=== PATIENT | female | born 1950 | race Caucasian/White ===

== ENCOUNTER → 2016-08-19 | Outpatient (CLI) | payer MEDICARE, MEDICAID ==
[~2016-08-19] MED LIST: ALBU8.5H4 IH; AMIT100T2 PO; AMIT25TA9 PO; AMLO5TAB2 PO; ARIP15TA PO; ARIP5TAB13 PO; AXERT PO; BUDE6HFA IH; CLON0.5T PO; DULO20CA PO; DULO60CA58 PO; EST30C PV; GABA-486 PO; HYDR-3454 PO; HYDR-3729 PO; HYDR115S2 PO; LANS30CA PO; LISI10TA PO; LORA10TA44 PO; LORA10TA7 PO; MELO-195 PO; MELO7.5T PO; MTF500T PO; NITR-65 PO; PHEN200T27 PO; PNT40TEC PO; PREG50C PO; RT-ALBUINH IH; TRAM50TA2 PO; TRM50T PO
--- NOTE | 2016-08-19 15:46 | Diagnostic Imaging Report ---
PROCEDURE: Lung cancer screening CT chest without contrast. TECHNIQUE: Multiple contiguous axial images were obtained through the chest without the use of intravenous contrast. This is performed with a low-dose protocol. INDICATION: Currently asymptomatic patient smoking one pack per day for 30 years, for a total of a 30 year history of smoking COMPARISON: No prior similar studies are available for comparison. FINDINGS: There is no significant consolidation, mass, or suspicious nodule seen. There is a tiny calcified granuloma in the right middle lobe and one in the right lower lobe. There is minimal atelectasis in the lung bases. There is no pleural or pericardial effusion. The heart size is normal. No mediastinal mass or significantly enlarged lymph node is seen. The hilar vessels are not opacified with no adjacent definite mass identified. The osseous structures appear grossly unremarkable. IMPRESSION: No lung mass or suspicious nodule is seen. Lung Rads Category 2. Benign findings. Recommendations: Annual screening low-dose CT scan. Dictated by: Dictated on workstation # [id number]
== END ==
LOC: RAD 12:14
PROVIDERS: ATTEND Nurse Practitioner Community Health
DX: Z12.2 Encounter for screening for malignant neoplasm of respiratory organs (principal); Z87.891 Personal history of nicotine dependence

== ENCOUNTER → 2017-09-11 | Outpatient (CLI) | payer MEDICARE, MEDICAID ==
--- NOTE | 2017-09-11 11:52 | Diagnostic Imaging Report ---
INDICATION: Right upper quadrant abdominal pain. Gallbladder sonography is performed in the routine fashion. The liver shows increased echogenicity compatible with fatty infiltration. There is no focal liver lesion. Gallbladder has been removed. Common duct measures 5 mm. Pancreas is partially obscured due to overlying gas. The right kidney is normal measuring 11.2 cm in length. There is no ascites. IMPRESSION: Fatty infiltration of the liver. Status post cholecystectomy. Otherwise unremarkable study. Dictated by: Dictated on workstation # [id number]
== END ==
LOC: RAD 06:57
PROVIDERS: ATTEND Nurse Practitioner Community Health
DX: K76.0 Fatty (change of) liver, not elsewhere classified (principal); Z90.49 Acquired absence of other specified parts of digestive tract
CPT/HCPCS: 76705

== ENCOUNTER → 2019-07-04 | Outpatient (CLI) | payer MEDICARE, MEDICAID ==
[~2019-07-04] MED LIST changes: -HYDR-3454 PO; +HYDR-3455 PO
--- NOTE | 2019-07-04 15:08 | Diagnostic Imaging Report ---
EXAMINATION: CT Chest without contrast (lung screening). TECHNIQUE: Multiple contiguous axial images were obtained through the chest without the use of intravenous contrast according to lung cancer screening protocol. All CT scans use one or more of the following dose optimizing techniques: automated exposure control, MA and/or KvP adjustment based on a patient size and exam type, or iterative reconstruction. HISTORY: 56 pack year history of smoking. COMPARISON: 08/19/2016 FINDINGS: The lungs are clear without edema or pneumonia. No pleural effusion or pneumothorax. No suspicious nodules. Heart size is normal. No pericardial effusion. Aorta is normal in caliber. There is no axillary or supraclavicular lymphadenopathy. There is no mediastinal lymphadenopathy. Limited views of the upper abdomen are normal. There are no suspicious osseus lesions. IMPRESSION: 1. No suspicious pulmonary nodules. LUNG-RADS CATEGORY: 1 MODIFIER: None. OTHER SIGNIFICANT FINDINGS: None. Dictated by: Dictated on workstation # [id number]
--- NOTE | 2019-07-05 11:14 | Diagnostic Imaging Report ---
INDICATION: Routine screening. Comparison is made with prior mammogram from 06/12/2016 and 07/22/2013. 2-D and 3-D bilateral screening mammography was performed with CAD. Scattered fibroglandular densities are identified bilaterally. There are benign calcifications bilaterally. The overall parenchymal pattern appears stable. No mass or malignant appearing microcalcifications are seen. Axillae are unremarkable. IMPRESSION: BI-RADS Category 2 No mammographic features suspicious for malignancy are identified. ACR BI-RADS Category 2: Benign findings. Result letter will be mailed to the patient. Note: At least 10% of breast cancer is not imaged by mammography. Dictated by: Dictated on workstation # [id number]
== END ==
LOC: RAD 14:06
PROVIDERS: ATTEND Nurse Practitioner Community Health
DX: Z12.2 Encounter for screening for malignant neoplasm of respiratory organs (principal); Z12.31 Encounter for screening mammogram for malignant neoplasm of breast; F17.210 Nicotine dependence, cigarettes, uncomplicated
CPT/HCPCS: 77067

== ENCOUNTER → 2019-07-26 | Outpatient (CLI) | payer MEDICARE, MEDICAID ==
[~2019-07-26] MED LIST changes: -TRAM50TA2 PO
--- NOTE | 2019-07-26 16:21 | Diagnostic Imaging Report ---
INDICATION: Postmenopausal female. History of right hip replacement. COMPARISON: None. FINDINGS: AP Spine L1-L4: [BMD (g/cm2): 1.107] [T-Score: -0.8] [Z-Score: 0.0] [BMD Previous: NA] [BMD % Change: NA] LT Hip Neck: [BMD (g/cm2): 0.936] [T-Score: -0.7] [Z-Score: 0.3] LT Hip Total: [BMD (g/cm2):0.996] [T-Score:-0.1] [Z-Score: 0.6] [BMD Previous: NA] [BMD % Change: NA] RT Hip Neck: [BMD (g/cm2):NA] [T-Score:NA] [Z-Score:NA] RT Hip Total: [BMD (g/cm2):NA] [T-score:NA] [Z-Score:NA] [BMD Previous:NA] [BMD % Change:NA] *Indicates significant change from prior examination based on 95% confidence level. World Health Organization criteria for BMD interpretation classify patients as Normal (T-score at or above -1.0), Osteopenic (T-score between -1.0 and -2.5) or Osteoporotic (T-score at or below -2.5). LIMITATIONS AND MODIFICATION: Degenerative changes in the lumbar spine may falsely elevate bone density. The right hip was not evaluated due to prosthesis. FRACTURE RISK (FRAX SCORE): Not applicable. IMPRESSION: 1. Normal bone mineral density. 2. Baseline examination. 3. See below National Osteoporosis Foundation guidelines on when to potentially initiate pharmacologic therapy. Based on the National Osteoporosis Foundation Guidelines, pharmacologic treatment should be initiated in any of the following, unless clinical conditions suggest otherwise: * Any patient with prior fragility fracture of the hip or vertebrae. A spine fracture indicates 5X risk for subsequent spine fracture and 2X risk for subsequent hip fracture. * Osteoporosis (T-score <-2.5). * Postmenopausal women and men age 50 and older with low bone mass/osteopenia (T-score between -1.0 and -2.5) by DXA and 10-year major osteoporotic fracture greater than 20% or a 10-year probability of hip fracture greater than 3%. These fracture risks are supplied above in the FRAX score, if applicable. * Clinician judgment and/or patient preferences may indicate treatment for people with 10-year fracture probabilities above or below these levels. Dictated by: Dictated on workstation # [id number]
== END ==
LOC: RAD 08:45
PROVIDERS: ATTEND Nurse Practitioner Community Health
DX: N95.1 Menopausal and female climacteric states (principal); Z96.641 Presence of right artificial hip joint
CPT/HCPCS: 77080

== ENCOUNTER 2019-08-16 05:40 | Outpatient (CLI) | payer MEDICARE, MEDICAID ==
[~2019-08-16] VITALS: Ht 170 cm; Wt 94.5 kg
[2019-08-16] MEDS ORDERED: MV-M1TAB2 PO (12:17)
[2019-08-16] MEDS ORDERED: PANT40TA3 PO (12:17)
[2019-08-16] MEDS ORDERED: DULO60CA59 PO (12:17)
[2019-08-16] MEDS ORDERED: MONT10TA24 PO (12:17)
[2019-08-16] MEDS ORDERED: RIZA10TA23 PO (12:17)
[2019-08-16] MEDS ORDERED: BUDE10.2 IH (12:17)
[2019-08-16] MEDS ORDERED: METO-333 PO (12:17)
[2019-08-16] MEDS ORDERED: SIMV10TA26 PO (12:17)
[2019-08-16] MEDS ORDERED: METF-397 PO (12:17)
[2019-08-16] MEDS ORDERED: CALC-696 PO (12:17)
== END 2019-08-16 12:21 | disposition home or self-care (01) ==
LOC: PREOP 05:40
PROVIDERS: ATTEND Surgery
DX: Z01.818 Encounter for other preprocedural examination (principal)

== ENCOUNTER 2019-08-23 07:05 | Day surgery (SDC) | payer MEDICARE, MEDICAID ==
[~2019-08-23] VITALS: Ht 170 cm; Wt 94.5 kg
[~2019-08-23 07:05] MED LIST changes: +BUDE10.2 IH; +CALC-696 PO; +DULO60CA59 PO; +METF-397 PO; +METO-333 PO; +MONT10TA24 PO; +MV-M1TAB2 PO; +PANT40TA3 PO; +RIZA10TA23 PO; +SIMV10TA26 PO
[2019-08-23] MEDS ORDERED: LACTATED RINGERS 1,000 ML IV ONE (07:09)
[2019-08-23] MEDS ORDERED: LACTATED RINGERS 1,000 ML IV STA (07:14)
[2019-08-23] MEDS ORDERED: ceFAZolin 2 GM/50 ML NS 50 ML ONE (07:14)
[2019-08-23] MEDS ORDERED: HURRICAINE EXT TUBE (BENZOCAINE) XX PRN (07:15)
[2019-08-23 07:27] VITALS: BP 143/77
[2019-08-23] MEDS ORDERED: PROPOFOL INJECTION 50 ML IV ONE (07:30)
[2019-08-23] MEDS ORDERED: HURRICAINE EXT TUBE (BENZOCAINE) ONE (07:43)
--- NOTE | 2019-08-23 07:48 | Progress Note-Pre Operative ---
Pre-Operative Progress Note H&P Reviewed The H&P was reviewed, patient examined and no changes noted. Date Seen by Provider: Aug 23, 2019 Time Seen by Provider: 07:48 Date H&P Reviewed: Aug 23, 2019 Time H&P Reviewed: 07:48 Pre-Operative Diagnosis: gerd, epigastric abd pain, +JACEY Roque DO Aug 23, 2019 07:48
[2019-08-23] MEDS ORDERED: proPOfol 200 MG/20 ML (DIPRIVAN) VIAL IV ONE (08:56)
[2019-08-23 09:15] VITALS: BP 109/55
--- NOTE | 2019-08-23 09:17 | Progress Note-Post Operative ---
Post-Operative Progess Note Surgeon (s)/Roofing Applicator (s) Surgeon JACEY SOLARES DO Roofing Applicator: na Pre-Operative Diagnosis gerd, epigastric abd pain, +cologuard Post-Operative Diagnosis gastritis, hiatal hernia, diverticulosis, colon polyps Procedure & Operative Findings Date of Procedure 08/23/19 Procedure Performed/Findings egd c biopsies, colonoscopy c hot bx polypectomy x 7 Anesthesia Type per box finisher Estimated Blood Loss Estimated blood loss (mL): none Specimens/Packing Specimens Removed antrum, body, ge, colon polyps JACEY SOLARES DO Aug 23, 2019 09:16
--- NOTE | 2019-08-23 09:18 | Discharge Inst-Simple/Standard ---
Discharge Inst-Standard Patient Instructions/Follow Up Plan of Care/Instructions/FU: 2 weeks ely Activity as Tolerated: Yes Discharge Diet: Regular Diet JACEY SOLARES DO Aug 23, 2019 09:18
[2019-08-23 09:20] VITALS: BP_SYST 144; BP_SYST 99; BP_DIAS 65; BP_DIAS 72
[2019-08-23 09:50] VITALS: BP 147/65
[2019-08-23 10:00] VITALS: BP 147/65
--- NOTE | 2019-08-23 13:28 | OPERATIVE REPORT ---
DATE OF SERVICE: 08/23/2019 PREOPERATIVE DIAGNOSES: Gastroesophageal reflux disease, epigastric abdominal pain, positive Cologuard test. POSTOPERATIVE DIAGNOSES: Gastritis, hiatal hernia, diverticulosis, colon polyps. PROCEDURE: EGD with biopsies, colonoscopy with hot biopsy polypectomy x7. SURGEON: Jacey Granados DO ANESTHESIA: Per GANG SAWYER. ESTIMATED BLOOD LOSS: None. COMPLICATIONS: None. INDICATIONS: The patient is a 69-year-old female in need of EGD and colonoscopy. She understands risks and benefits of procedure and wished to proceed with procedure. Consent was signed in the chart. DESCRIPTION OF PROCEDURE: The patient was taken to the endoscopy suite, placed in left lateral recumbent position. Timeout was performed. Scope was inserted in mouth, down the esophagus, stomach and into the duodenum without difficulty. There were no polyps, masses or ulcerations within the duodenum. Scope was slowly retracted back into the stomach where further insufflated. The appearance of gastritis present. No polyps, masses or ulcerations. Biopsy of the antrum was obtained. Scope was retroflexed noting hiatal hernia, no other pathology. Scope was returned to its normal position, slowly withdrawn to the distal esophagus. A biopsy of the body was obtained. Scope was then slowly retracted back into the distal esophagus, biopsy of the GE junction was obtained. No polyps, masses or ulcerations. Scope was slowly retracted back until completely removed. Digital rectal exam was performed. There were no palpable polyps, masses or ulcerations. Scope was inserted in the rectum and advanced all the way to cecum with minimal difficulty. Prep was adequate. Scope was then slowly retracted back. There was a small polyp at the ileocecal valve, which hot biopsy polypectomy was performed. Scope was then continuously retracted back. At the hepatic flexure, there is 2 polyps, which hot biopsy polypectomy was performed. Scope was then continuously retracted back. There were no polyps, masses or ulcerations within the transverse colon. In the descending colon, two small polyps were present, which hot biopsy polypectomy was performed. Scope was then continuously retracted back into the sigmoid colon where two more polyps were present, which hot biopsy polypectomy was performed. Moderate amount of diverticulosis throughout the sigmoid and descending colon. Scope was then continuously retracted back in the rectum, where it was also retroflexed noting no other pathology. Scope was returned to its normal position, slowly withdrawn until completely removed. The patient tolerated procedure well without any complications. She was taken to recovery room in stable condition. RECOMMENDATIONS: The patient will need repeat colonoscopy in 3 years for reevaluation. We will await biopsies of the stomach. The patient to continue on her Protonix. The patient will follow up in 2 weeks. Any issues before that be seen at that time. Job ID: [id number] DocumentID: [id number] Dictated Date: 08/23/2019 09:21:51 Digital Production Manager Date: 08/23/2019 13:28:01 Dictated By: JACEY GRANADOS DO
--- NOTE | 2019-08-23 14:00 | Anesthesia-General Post-Op ---
MAC Patient Condition Mental Status/LOC: Same as Preop Cardiovascular: Satisfactory Nausea/Vomiting: Absent Respiratory: Satisfactory Pain: Controlled Complications: Absent Post Op Complications Complications None Follow Up Care/Instructions Patient Instructions None needed. Anesthesiology Discharge Order Discharge Order Patient was seen this morning after the procedure and she was doing well, no complaints, stable vital signs, no apparent adverse anesthesia problems. MARTHA RAY DO Aug 23, 2019 14:00
--- OUTSIDE RECORDS SUMMARY | 2019-09-01 04:53 | XMS REPORT ---
Author Author Olivia Mejía [facility] Address [address] [place], [place] [id number] Care Team Providers Care Doctor Of Medicine Name Role Phone Jean-Pierre Mejía PCP Jean-Pierre Mejía PreferredProvider Allergies and Adverse Reactions Name Reaction Notes No known drug allergy Plan of Treatment Not available. Medications Active Name Start Date Estimated Completion Date SIG Co mments Cymbalta 60 mg oral capsule,delayed release(DR/EC) take 2 capsules (120 mg) by oral route once daily Ventolin HFA 90 mcg/actuation inhalation HFA aerosol inhaler inhale 2 puffs (180 mcg) by inhalation route every 6 hours as needed clonazepam 0.5 mg oral tablet ta ke 1 to 2 tablets by oral route up to twice daily as needed for anxiety Relpax 40 mg oral tablet 10/27/2017 take 1 tablet (40 mg) by oral route ; may repeat after 2 hours, do not exceed 80 mg/24 hr Toviaz 4 mg oral tablet extended release 24 hr 05/03/2018 take 1 tablet (4 mg) by oral route once daily x 7 days then 8 mg daily Bleph-10 10 % ophthalmic (eye) drops 05/25/2018 instill 2 drops into both eyes by ophthalmic route 4 times a day metoprolol tartrate 25 mg oral tablet 07/22/2018 TAKE 1 TABLET BY MOUTH TWICE DAILY dicyclomine 20 mg oral tablet 07/22/2018 TA KE 1 TABLET BY MOUTH THREE TIMES DAILY loratadine 10 mg oral tablet 07/22/2018 [place]NA E 1 TABLET (10 MG) BY MOUTH ONCE DAILY Symbicort 160-4.5 mcg/actuation inhalation HFA aerosol inhaler INHALE 2 PUFFS BY MOUTH TWICE DAILY metformin 500 mg oral tablet 07/22/2018 georgiana e 1 tablet (500 mg) by oral route 2 times per day with morning and evening meals for 90 days simvastatin 10 mg oral tablet 07/22/2018 ta ke 1 tablet (10 mg) by oral route once daily in the evening for 90 days sucralfate 1 gram oral tablet 07/22/2018 TA KE 1 TABLET BY MOUTH TWICE DAILY ON AN EMPTY STOMACH montelukast 10 mg oral tablet 07/22/2018 TA KE 1 TABLET BY MOUTH DAILY IN THE EVENING Protonix 40 mg oral tablet,delayed release (DR/EC) 07/22/2018 take 1 tablet (40 mg) by oral route once daily for 90 days rizatriptan 10 mg oral tablet,disintegrating 07/22/2018 DISSOLVE 1 TABLET UNDER TONGUE AT ONSET OF HEADACHE *MAY REPEAT IN 2 HOUR INTERVALS Discontinued Name Start Date Discontinued Date SIG Comments Dulcolax Stool Softener (dss) 100 mg oral capsule 10/16/2017 take 1 capsule (100 mg) by oral route 2 times per day omeprazole 20 mg oral capsule,delayed release(DR/EC) 10/07/2017 take 1 capsule (20 mg) by oral route 2 times per day Migraine headaches tramadol 50 mg oral tablet 12/30/2017 take 1 tablet (50 mg) by oral route TID PRN Klonopin 0.5 mg oral tablet 10/16/2017 take 1 tablet (0.5 mg) by oral route daily as needed dose updated to what label says risperidone 0.5 mg oral tablet 10/16/2017 t ellie 1 tablet by oral route once daily "I don't take this" Imitrex 100 mg oral tablet 10/16/2017 10/27/2017 take 1 tablet (100 mg) by oral route once with fluids as early as possible after the onset of a migraine attack;may repeat after 2 hours if headache returns, not to exceed 200mg in 24hrs caused burning in stomach lisinopril-hydrochlorothiazide 10-12.5 mg oral tablet 10/16/2017 12/30/2017 take 1 tablet by oral route once daily for 90 days Cough gabapentin 100 mg oral capsule 10/16/2017 10/27/2017 t ellie 1 capsule (100 mg) by oral route once daily at bedtime restlessness at night Carafate 1 gram oral tablet 11/16/2017 05/25/2018 take 1 tablet (1 gram) by oral route 2 times per day on an empty stomach for 30 days nifedipine 30 mg oral tablet extended release 24hr 12/30/2017 01/04/2018 take 1 tablet (30 mg) by oral route once daily for 90 days Migraine Headaches Problem List Description Status Onset Anxiety Active Bipolar disorder Active COPD (chronic obstructive pulmonary disease) Active GERD (gastroesophageal reflux disease) Active Hypertension Active Irritable bowel disease Active OCD (obsessive compulsive disorder) Active Panic attack Active Prediabetes Active PTSD (post-traumatic stress disorder) Active Schizophrenia Active Vital Signs Date Time BP-Sys(mm[Hg] BP-Daya(mm[Hg]) HR(bpm) RR(rpm) Temp WT HT HC BMI BSA BMI Percentile O2 Sat(%) 05/25/2018 1:29:00 PM 128 mmHg 60 mmHg 71 bpm 18 rpm 98.1 F 208 lbs 66 in 33.5717 kg/m 2.0961 m 96 % 05/03/2018 1:20:00 PM 134 mmHg 90 mmHg 75 bpm 18 rpm 98.2 F 208.375 lbs 66 in 33.63 kg/m2 2.10 m2 96 % 03/08/2018 2:43:00 PM 130 mmHg 78 mmHg 82 bpm 16 rpm 97.2 F 201 lbs 66 in 32.44 kg/m2 2.06 m2 94 % 02/17/2018 2:45:00 PM 146 mmHg 92 mmHg 107 bpm 20 rpm 97.9 F 199 lbs 66 in 32.1191 kg/m 2.0502 m 93 % 02/11/2018 3:16:00 PM 130 mmHg 70 mmHg 72 bpm 20 rpm 98.1 F 199 lbs 66 in 32.12 kg/m2 2.05 m2 95 % 01/14/2018 1:59:00 PM 138 mmHg 78 mmHg 74 bpm 20 rpm 98.1 F 201 lbs 66 in 32.4419 kg/m 2.0605 m 94 % 12/30/2017 9:55:00 AM 120 mmHg 84 mmHg 94 bpm 18 rpm 98.2 F 199.125 lbs 66 in 32.14 kg/m2 2.05 m2 96 % 10/27/2017 9:22:00 AM 132 mmHg 88 mmHg 78 bpm 20 rpm 98.1 F 197 lbs 66 in 31.7963 kg/m 2.0399 m 95 % 10/16/2017 9:20:00 AM 134 mmHg 66 mmHg 82 bpm 18 rpm 98.5 F 199 lbs 66 in 32.12 kg/m2 2.05 m2 94 % 09/24/2017 1:24:00 PM 116 mmHg 70 mmHg 94 bpm 16 rpm 98 F 202 lbs 66 in 32.6033 kg/m 2.0656 m 97 % Social History Name Description Comments Tobacco Current every day smoker History of Procedures Date Ordered Description Order Status 09/24/2017 12:00 AM COMPREHEN METABOLIC PANEL Reviewed 09/24/2017 12:00 AM LIPID PANEL Reviewed 09/24/2017 12:00 AM GLYCOSYLATED HEMOGLOBIN TEST Reviewed 09/24/2017 12:00 AM COMPLETE CBC W/AUTO DIFF WBC Reviewed 12/30/2017 12:00 AM LWR XTR VASC STDY BILAT Reviewed 12/30/2017 12:00 AM Mammogram, screening, bilateral Reviewed 01/14/2018 12:00 AM CINE/VID X-RAY THROAT/ESOPH Reviewed 02/02/2018 12:00 AM CONTRAST X-RAY ESOPHAGUS Reviewed 02/11/2018 12:00 AM TTE W/DOPPLER COMPLETE Reviewed 02/11/2018 12:00 AM RADEX HIP UNILATERAL COMPLETE MINIMUM 2 VIEWS Reviewed 05/25/2018 12:00 AM [facility] MEDICARE - flu vaccine administratio n Reviewed 05/25/2018 12:00 AM INFLUENZA VACCINE SPLT PRSRV FREE INC AN KARY IM Reviewed Results Summary Date and Description Results 10/06/2017 9:10 AM GLUCOSE 109.0 mg/dLSODIUM 14 0.0 mmol/LPOTASSIUM 4.0 mmol/LCHLORIDE 102.0 mmol/LCO2 28.0 mmol/LBUN 11.0 mg/dLCREATININE 0.70 mg/dLSGOT/AST 16.0 IU/LSGPT/ALT 17.0 IU/LALK PHOS 64.0 IU/LTOTAL PROTEIN 6.70 g/dLALBUMIN 4.30 g/dLTOTAL BILI 0.40 mg/dLCALCIUM 9.20 mg/dLAGE 67 GFR NonAA 84 GFR AA 102 eGFR >60 mL/min/1.73meGFR AA* >60 WBC 5.9 RBC 4.27 HGB 13.30 g/dLHCT 40.10 %MCV 94.0 fLMCH 31.10 pgMCHC 33.20 g/dLRDW SD 53 RDW CV 15.40 %MPV 11.0 fLPLT 269 NRBC# 0.00 NRBC% 0.0 %NEUT 54.60 %%LYMP 34.60 %%MONO 8.0 %%EOS 1.90 %%BASO 0.70 %#NEUT 3.23 #LYMP 2.04 #MONO 0.47 #EOS 0.11 #BASO 0.04 MANUAL DIFF NOT IND TRIGLYCERIDES 55.0 mg/dLCHOLESTEROL 173.0 mg/dLHDL 65.0 mg/dLTOT C HOL/HDL 2.7 LDL (CALC) 97.0 mg/dLHGB A1C 5.70 %Est Avg Glucose 116.9 mg/dL History Of Immunizations Name Date Admin Mfg Name Mfg Code Trade Name Lot# Route Inj Vis Given Vis Pub CVX Influenza 05/25/2018 [employer] SKB FLUZONE-HIGH DOSE [id number] AB Intramuscular Left Deltoid 05/25/2018 07/13/2018 135 History of Past Illness Name Date of Onset Comments Irritable bowel disease Schizophrenia Bipolar disorder Panic attack Anxiety Prediabetes Hypertension GERD (gastroesophageal reflux disease) COPD (chronic obstructive pulmonary disease) OCD (obsessive compulsive disorder) PTSD (post-traumatic stress disorder) Migraine GERD (gastroesophageal reflux disease) Sep 24 2017 1:27PM Hypertension Sep 24 2017 1:27PM Prediabetes Sep 24 2017 1:27PM Anxiety Sep 24 2017 1:27PM Irritable bowel disease Sep 24 2017 1:27PM Anxiety Oct 16 2017 9:22AM COPD (chronic obstructive pulmonary disease) Oct 16 2017 9: 22AM GERD (gastroesophageal reflux disease) Oct 16 2017 9:22AM Hypertension Oct 16 2017 9:22AM Irritable bowel disease Oct 16 2017 9:22AM Prediabetes Oct 16 2017 9:22AM Diarrhea Oct 27 2017 9:24AM Gastroesophageal Reflux Oct 27 2017 9:24AM Irritable Bowel Syndrome Oct 27 2017 9:24AM Visit for screening mammogram Dec 30 2017 9:56AM Anxiety Dec 30 2017 9:56AM Hypertension Dec 30 2017 9:56AM Prediabetes Dec 30 2017 9:56AM Discoloration of skin of toe Dec 30 2017 9:56AM Dysphagia Jan 14 2018 2:01PM Post-nasal drainage Jan 14 2018 2:01PM Dysphagia Feb 02 2018 11:13AM Palpitations Feb 11 2018 3:18PM Syncope Feb 11 2018 3:18PM Hip pain, right Feb 11 2018 3:18PM Abdominal pain, epigastric Feb 17 2018 2:46PM Dyspepsia Feb 17 2018 2:46PM Dysphagia, pharyngeal phase Feb 17 2018 2:46PM Anxiety Disorder Feb 11 2018 3:18PM Mixed incontinence May 03 2018 1:22PM Chronic hypertrophic gastritis Mar 08 2018 2:43PM Flu Vaccine May 25 2018 1:37PM Acute Conjunctivitis May 25 2018 1:31PM Payers Insurance Name Company Name Plan Name Plan Number Policy Number [place] Group Number Start Date Medicare RHC Medicare RHC [id number] 2016 [facility] [id number] N/A Medicare Part A Medicare - Lab/Xray [id number] N/A Medicare Part B Medicare Of [place] [id number] N/A [facility] [id number] N/A Medicare RHC Medicare RHC [id number] N/A History of Encounters Visit Date Visit Type Provider 05/25/2018 Office visit Jean-Pierre Mejía DO 05/03/2018 Office visit Jean-Pierre Mejía DO 03/22/2018 Hospital Damaris Ordaz MD 03/08/2018 Office visit Slim Lyons MD 02/25/2018 Surgery Slim Lyons MD 02/17/2018 Office visit Slim Lyons MD 02/11/2018 Office visit Jean-Pierre Mejía DO 01/14/2018 Office visit Jean-Pierre Mejía DO 12/30/2017 Office visit Jean-Pierre Mejía DO 10/27/2017 Office visit Jean-Pierre Mejía DO 10/16/2017 Office visit Jean-Pierre Mejía DO 09/24/2017 Office visit Jean-Pierre Mejía DO
--- OUTSIDE RECORDS SUMMARY | 2019-09-01 04:53 | XMS REPORT ---
Author Author Olivia Mejía [facility] Address [address] [place], [place] [address] Care Team Providers Care Glass Calibrator Name Role Phone Jean-Pierre Mejía PCP Jean-Pierre [...] inhalation route every 6 hours as needed Protonix 40 mg oral tablet,delayed release (DR/EC) 10/07/2017 take 1 tablet (40 mg) by oral route once daily for 90 days clonazepam 0.5 mg oral tablet ta ke 1 to 2 tablets by oral route up to twice daily as needed for anxiety metformin 500 mg oral tablet 10/16/2017 10/11/2018 georgiana e 1 tablet (500 mg) by oral route 2 times per day with morning and evening meals for 90 days Relpax 40 mg oral tablet 10/27/2017 take 1 tablet (40 mg) by oral route ; may repeat after 2 hours, do not exceed 80 mg/24 hr metoprolol tartrate 25 mg oral tablet 01/04/2018 take 1 tablet (25 mg) by oral route 2 times per day rizatriptan 10 mg oral tablet,disintegrating 01/21/2018 DISSOLVE 1 TABLET UNDER TONGUE AT ONSET OF HEADACHE *MAY REPEAT IN 2 HOUR INTERVALS Symbicort 160-4.5 mcg/actuation inhalation HFA aerosol inhaler INHALE 2 PUFFS BY MOUTH TWICE DAILY simvastatin 10 mg oral tablet 03/10/2018 03/05/2019 ta ke 1 tablet (10 mg) by oral route once daily in the evening for 90 days dicyclomine 20 mg oral tablet 04/12/2018 ta ke 1 tablet (20 mg) by oral route 3 times per day for 30 days Toviaz 4 mg oral tablet extended release 24 hr 05/03/2018 take 1 tablet (4 mg) by oral route once daily x 7 days then 8 mg daily loratadine 10 mg oral tablet 05/11/2018 GEORGIANA E 1 TABLET (10 MG) BY ORAL ROUTE ONCE DAILY FOR 30 DAYS montelukast 10 mg oral tablet 05/17/2018 TA KE 1 TABLET (10 MG) BY ORAL ROUTE ONCE DAILY IN THE EVENING FOR 30 DAYS sucralfate 1 gram oral tablet 05/21/2018 TA KE 1 TABLET BY MOUTH TWICE DAILY ON AN EMPTY STOMACH Bleph-10 10 % ophthalmic (eye) drops 05/25/2018 instill 2 drops into both eyes by ophthalmic route 4 times a day Discontinued Name Start Date Discontinued Date SIG [...] MINIMUM 2 VIEWS Reviewed 05/25/2018 12:00 AM RHC MEDICARE - flu vaccine administratio n Reviewed 05/25/2018 12:00 AM INFLUENZA VACCINE SPLT PRSRV FREE INC AN KARY GRIGGS Reviewed Results Summary Date and Description Results [...] Vis Given Vis Pub CVX Influenza 05/25/2018 [employer] SKB FLUZONE-HIGH DOSE [id number] AB Intramuscular Left [...] Number Start Date Medicare RHC Medicare RHC [id number] esdMay 13, 2016 [facility] [id number] N/A Medicare Part A Medicare - Lab/Xray [id number] N/A Medicare Part B Medicare Of [place] [id number] N/A [facility] [id number] N/A Medicare RHC Medicare RHC [id number] N/A History of Encounters Visit Date Visit Type Provider 05/25/2018 Office visit Jean-Pierre Mejía DO 05/03/2018 Office visit Jean-Pierre Mejía DO 03/08/2018 Office visit Slim Lyons MD 02/25/2018 Surgery Slim Lyons MD 02/17/2018 Office visit Slim Lyons MD 02/11/2018 Office visit Jean-Pierre Mejía DO 01/14/2018 Office visit Jean-Pierre Mejía DO 12/30/2017 Office visit Jean-Pierre Mejía DO 10/27/2017 Office visit Jean-Pierre Mejía DO 10/16/2017 Office visit Jean-Pierre Mejía DO 09/24/2017 Office visit Jean-Pierre Mejía DO
--- OUTSIDE RECORDS SUMMARY | 2019-09-01 04:53 | XMS REPORT ---
Author Author Olivia Mejía [facility] Physicians oup Address [address] [place], [place] [address] Care Team Providers Care Detail Sergeant Name Role Phone Jean-Pierre Mejía PCP Jean-Pierre [...] Vis Given Vis Pub CVX Influenza 05/25/2018 GlaxoSmBeiZKline SKB FLUZONE-HIGH DOSE [id number] AB Intramuscular Left [...] 2:43PM Flu Vaccine May 25 2018 1:37PM Payers Insurance Name Company Name Plan Name Plan Number Policy Number [place] Group Number Start Date Medicare RHC Medicare RHC [id number] 2016 [facility] [id number] N/A Medicare Part A Medicare - Lab/Xray [id number] N/A Medicare Part B Medicare Of [place] [id number] N/A [facility] [id number] N/A Medicare RHC Medicare RHC [id number] N/A History of Encounters Visit Date Visit Type Provider 05/25/2018 Office visit Jean-Pierre Mejía DO 05/03/2018 Office visit Jean-Pierre Mejía DO 03/08/2018 Office visit Slim Lyons MD 02/25/2018 Surgery Slim Lyons MD 02/17/2018 Office visit Slmi Lyons MD 02/11/2018 Office visit Jean-Pierre Mejía DO 01/14/2018 Office visit Jean-Pierre Mejía DO 12/30/2017 Office visit Jean-Pierre Mejía DO 10/27/2017 Office visit Jean-Pierre Mejía DO 10/16/2017 Office visit Jean-Pierre Mejía DO 09/24/2017 Office visit Jean-Pierre Mejía DO
--- OUTSIDE RECORDS SUMMARY | 2019-09-01 04:53 | XMS REPORT ---
Author Author Olivia Mejía [facility] Physicians oup Address [address] [place], [place] [address] Care Team Providers Care Butcher Chicken And Fish Name Role Phone Jean-Pierre Mejía PCP Jean-Pierre [...] x 7 days then 8 mg daily metoprolol tartrate 25 mg oral tablet 07/22/2018 [...] HEADACHE *MAY REPEAT IN 2 HOUR INTERVALS amitriptyline 25 mg oral tablet take 1 tablet (25 mg) by oral route once daily at bedtime nitrofurantoin monohyd/m-cryst 100 mg oral capsule 07/29/2018 08/05/2018 take 1 capsule (100 mg) by oral route every 12 hours with food for 7 days Discontinued Name Start Date Discontinued Date SIG [...] once daily for 90 days Migraine Headaches Bleph-10 10 % ophthalmic (eye) drops 05/25/2018 07/29/2018 instill 2 drops into both eyes by ophthalmic route 4 times a day Problem List Description Status Onset Anxiety Active Bipolar disorder Active COPD (chronic obstructive pulmonary disease) Active GERD (gastroesophageal reflux disease) Active Hypertension Active Irritable bowel disease Active OCD (obsessive compulsive disorder) Active Panic attack Active Prediabetes Active PTSD (post-traumatic stress disorder) Active Schizophrenia Active Vital Signs Date Time BP-Sys(mm[Hg] BP-Daya(mm[Hg]) HR(bpm) RR(rpm) Temp WT HT HC BMI BSA BMI Percentile O2 Sat(%) 07/29/2018 8:20:00 AM 130 mmHg 76 mmHg 87 bpm 18 rpm 98.8 F 207 lbs 66 in 33.4103 kg/m 2.091 m 93 % 05/25/2018 1:29:00 PM 128 mmHg 60 mmHg 71 bpm 18 rpm 98.1 F 208 lbs 66 in 33.57 kg/m2 2.10 m2 96 % 05/03/2018 1:20:00 PM 134 mmHg 90 mmHg 75 bpm 18 rpm 98.2 F 208.375 lbs 66 in 33.6323 kg/m 2.0979 m 96 % 03/08/2018 2:43:00 PM 130 mmHg [...] MINIMUM 2 VIEWS Reviewed 05/25/2018 12:00 AM [facility] MEDICARE - flu vaccine administratio n Reviewed 05/25/2018 12:00 AM INFLUENZA VACCINE SPLT PRSRV FREE INC AN TIGEN IM Reviewed 07/29/2018 8:41 AM URINALYSIS AUTO W/O SCOPE Reviewed Results Summary Date and Description Results [...] A1C 5.70 %Est Avg Glucose 116.9 mg/dL 07/29/2018 8:22 AM Falls in last 6 months? No U nsteady or worry about falling? No Fall Risk Assessment Not At Risk 07/29/2018 8:41 AM Clarity Ur cloudy Urine-Tumtum r lt. yellow Glucose Ur-sCnc negative Bilirub Ur Ql negative Ketones Ur Ql Strip negative Sp Gr Ur Qn <=1.005 Hgb Ur Ql Strip small pH Ur-LsCnc 6.5 Prot Ur Ql Strip negative Urobilinogen Ur-mCnc 0.2 Nitrite Ur Ql Strip negative WBC # Ur small History Of Immunizations Name Date Admin Mfg Name Mfg Code Trade Name Lot# Route Inj Vis Given Vis Pub CVX Influenza 05/25/2018 GlaxoSmEmail Data SourceKline SKB FLUZONE-HIGH DOSE [id number] AB Intramuscular Left [...] 1:37PM Acute Conjunctivitis May 25 2018 1:31PM Urinary Tract Infection Jul 29 2018 8:22AM Payers Insurance Name Company Name Plan Name Plan Number Policy Number [place] Group Number Start Date Medicare RHC Medicare RHC [id number] [facility] [id number] N/A Medicare Part A Medicare - Lab/Xray [id number] N/A Medicare Part B Medicare Of [place] [id number] N/A [facility] [id number] N/A Medicare RHC Medicare RHC [id number] N/A History of Encounters Visit Date Visit Type Provider 07/29/2018 Office visit Jean-Pierre Mejía DO 05/25/2018 Office visit Jean-Pierre Mejía DO 05/03/2018 Office visit Jean-Pierre Mejía DO 03/22/2018 [facility] Damaris Ordaz MD 03/08/2018 Office visit [...]
--- OUTSIDE RECORDS SUMMARY | 2019-09-01 04:54 | XMS REPORT ---
Author Author Olivia Lyons Organization [facility] Physicians oup Address [address] [place], [place] [address] Care Team Providers Care Railroad Yard Worker Name Role Phone Slim Lyons PCP Jean-Pierre Mejía PreferredProvider Allergies and Adverse Reactions Name Reaction Notes No known drug allergy Plan of Treatment Planned Activity Comments Planned Date Planned Time Plan/Goal US ECHO 2D COMP WITH DOPP AND COLOR 02/11/2018 12:00 AM Medications Active Name Start Date Estimated Completion [...] morning and evening meals for 90 days dicyclomine 20 mg oral tablet 10/27/2017 03/26/2018 ta ke 1 tablet (20 mg) by oral route 3 times per day for 30 days Relpax 40 mg oral tablet 10/27/2017 take 1 tablet (40 mg) by oral route ; may repeat after 2 hours, do not exceed 80 mg/24 hr Carafate 1 gram oral tablet 11/16/2017 take 1 tablet (1 gram) by oral route 2 times per day on an empty stomach for 30 days metoprolol tartrate 25 mg oral tablet 01/04/2018 take 1 tablet (25 mg) by oral route 2 times per day rizatriptan 10 mg oral tablet,disintegrating 01/21/2018 DISSOLVE 1 TABLET UNDER TONGUE AT ONSET OF HEADACHE *MAY REPEAT IN 2 HOUR INTERVALS Symbicort 160-4.5 mcg/actuation inhalation HFA aerosol inhaler INHALE 2 PUFFS BY MOUTH TWICE DAILY montelukast 10 mg oral tablet 02/08/2018 ta ke 1 tablet (10 mg) by oral route once daily in the evening for 30 days loratadine 10 mg oral tablet 02/08/2018 georgiana e 1 tablet (10 mg) by oral route once daily for 30 days Discontinued Name Start Date Discontinued Date [...] once daily at bedtime restlessness at night nifedipine 30 mg oral tablet extended release [...] HC BMI BSA BMI Percentile O2 Sat(%) 02/17/2018 2:45:00 PM 146 mmHg 92 mmHg [...] CONTRAST X-RAY ESOPHAGUS Reviewed 02/11/2018 12:00 AM RADEX HIP UNILATERAL COMPLETE MINIMUM 2 VIEWS Reviewed Results Summary Date and Description Results [...] Avg Glucose 116.9 mg/dL History Of Immunizations Not available. History of Past Illness Name Date of [...] 2:46PM Anxiety Disorder Feb 11 2018 3:18PM Payers Insurance Name Company Name Plan Name Plan Number Policy Number [place] Group Number Start Date Medicare RHC Medicare RHC [id number] [facility] [id number] N/A Medicare Part A Medicare - Lab/Xray [id number] N/A Medicare RHC Medicare RHC [id number] N/A History of Encounters Visit Date Visit Type Provider 02/17/2018 Office visit Slim Lyons MD 02/11/2018 Office visit Jean-Pierre Mejía DO 01/14/2018 Office visit Jean-Pierre Mejía DO 12/30/2017 Office visit Jean-Pierre Mejía DO 10/27/2017 Office visit Jean-Pierre Mejía DO 10/16/2017 Office visit Jean-Pierre Mejía DO 09/24/2017 Office visit Jean-Pierre Mejía DO
--- OUTSIDE RECORDS SUMMARY | 2019-09-01 04:54 | XMS REPORT ---
Author Author Olivia Lyons [facility] Physicians oup Address [address] [place], [place] [address] Care Team Providers Care Medical Instrument Technician Name Role Phone Slim Lyons PCP Jean-Pierre [...] oral route once daily for 30 days simvastatin 10 mg oral tablet 03/10/2018 03/05/2019 ta ke 1 tablet (10 mg) by oral route once daily in the evening for 90 days Discontinued Name Start Date Discontinued Date [...] HC BMI BSA BMI Percentile O2 Sat(%) 03/08/2018 2:43:00 PM 130 mmHg 78 mmHg 82 bpm 16 rpm 97.2 F 201 lbs 66 in 32.4419 kg/m 2.0605 m 94 % 02/17/2018 2:45:00 PM 146 mmHg 92 mmHg 107 bpm 20 rpm 97.9 F 199 lbs 66 in 32.12 kg/m2 2.05 m2 93 % 02/11/2018 3:16:00 PM 130 mmHg 70 mmHg 72 bpm 20 rpm 98.1 F 199 lbs 66 in 32.1191 kg/m 2.0502 m 95 % 01/14/2018 1:59:00 PM 138 mmHg 78 mmHg 74 bpm 20 rpm 98.1 F 201 lbs 66 in 32.44 kg/m2 2.06 m2 94 % 12/30/2017 9:55:00 AM 120 mmHg 84 mmHg 94 bpm 18 rpm 98.2 F 199.125 lbs 66 in 32.1393 kg/m 2.0509 m 96 % 10/27/2017 9:22:00 AM 132 mmHg 88 mmHg 78 bpm 20 rpm 98.1 F 197 lbs 66 in 31.80 kg/m2 2.04 m2 95 % 10/16/2017 9:20:00 AM 134 mmHg 66 mmHg 82 bpm 18 rpm 98.5 F 199 lbs 66 in 32.1191 kg/m 2.0502 m 94 % 09/24/2017 1:24:00 PM 116 mmHg 70 mmHg 94 bpm 16 rpm 98 F 202 lbs 66 in 32.6033 kg/m 2.07 m2 97 % Social History Name Description Comments [...] Number Start Date Medicare RHC Medicare RHC [id number] 2016 [facility] [id number] N/A Medicare Part B Medicare Of [place] [id number] N/A Medicare RHC Medicare RHC [id number] N/A [facility] [id number] N/A Medicare Part A Medicare - Lab/Xray [id number] N/A History of Encounters Visit Date Visit Type Provider 03/08/2018 Office visit Slim Lyons MD 02/25/2018 Surgery Slim Lyons MD 02/17/2018 Office visit Slim Lyons MD 02/11/2018 Office visit Jean-Pierre Mejía DO 01/14/2018 Office visit Jean-Pierre Mejía DO 12/30/2017 Office visit Jean-Pierre Mejía DO 10/27/2017 Office visit Jean-Pierre Mejía DO 10/16/2017 Office visit Jean-Pierre Mejía DO 09/24/2017 Office visit Jean-Pierre Mejía DO
--- OUTSIDE RECORDS SUMMARY | 2019-09-01 04:54 | XMS REPORT ---
Author Author Olivia Mejía [facility] Physicians oup Address [address] [place], [place] [address] Care Team Providers Care Seo Analyst Name Role Phone Jean-Pierre Mejía PCP Jean-Pierre [...] MOUTH TWICE DAILY ON AN EMPTY STOMACH Discontinued Name Start Date Discontinued Date SIG [...] HC BMI BSA BMI Percentile O2 Sat(%) 05/03/2018 1:20:00 PM 134 mmHg 90 mmHg [...] Chronic hypertrophic gastritis Mar 08 2018 2:43PM Payers Insurance Name Company Name Plan Name Plan Number Policy Number [place] Group Number Start Date Medicare [facility] Medicare [facility] [id number] 2016 [facility] [id number] N/A Medicare Part B Medicare Of [place] [id number] N/A Medicare [facility] Medicare [facility] [id number] N/A [facility] - [facility] [id number] N/A Medicare Part A Medicare - Lab/Xray [id number] N/A History of Encounters Visit Date Visit Type Provider 05/03/2018 Office visit Jean-Pierre Mejía DO 03/08/2018 [...]
--- OUTSIDE RECORDS SUMMARY | 2019-09-01 04:54 | XMS REPORT ---
Author Author Olivia Lyons [facility] Physicians oup Address [address] [place], [place] [address] Care Team Providers Care Mobile Security Specialist Name Role Phone Slim Lyons PCP Jean-Pierre [...] Number Start Date Medicare RHC Medicare RHC [id number] 2016 [facility] [id number] N/A Medicare Part A Medicare - Lab/Xray [id number] N/A Medicare RHC Medicare RHC [id number] N/A History of Encounters Visit Date Visit Type Provider 02/17/2018 Office visit Slim Lyons MD 02/11/2018 Office visit Jean-Pierre Mejía DO 01/14/2018 Office visit Jean-Pierre Mejía DO 12/30/2017 Office visit Jean-Pierre Mejía DO 10/27/2017 Office visit Jean-Pierre Mejía DO 10/16/2017 Office visit Jean-Pierre Mejía DO 09/24/2017 Office visit Jean-Pierre Mejía DO
--- OUTSIDE RECORDS SUMMARY | 2019-09-01 04:54 | XMS REPORT ---
Author Author Olivia Mejía [facility] Physicians oup Address [address] [place], [place] [address] Care Team Providers Care Core Checker Name Role Phone Jean-Pierre Mejía PCP Jean-Pierre [...] MINIMUM 2 VIEWS Reviewed 05/25/2018 12:00 AM [facility] MEDICARE - flu vaccine administratio n Reviewed 05/25/2018 12:00 AM INFLUENZA VACCINE SPLT PRSRV FREE INC AN TIGEN IM Reviewed Results Summary Date and Description [...] Vis Given Vis Pub CVX Influenza 05/25/2018 Petsy SKB FLUZONE-HIGH DOSE UJ044 AB Intramuscular Left [...] Number Start Date Medicare RHC Medicare RHC [id number] 2016 [facility] - [facility] [id number] N/A Medicare Part A Medicare - Lab/Xray [id number] N/A Medicare Part B Medicare Of [place] [id number] N/A [facility] [id number] N/A Medicare RHC Medicare RHC [id number] N/A History of Encounters Visit Date Visit [...]
--- OUTSIDE RECORDS SUMMARY | 2019-09-01 04:54 | XMS REPORT ---
Author Author Olivia Mejía [facility] Physicians oup Address [address] [place], [place] [address] Care Team Providers Care Sales And Catering Coordinator Name Role Phone eJan-Pierre Mejía PCP Jean-Pierre Mejía PreferredProvider Allergies and [...] x 7 days then 8 mg daily Discontinued Name Start Date Discontinued Date SIG [...] 3:18PM Mixed incontinence May 03 2018 1:22PM Payers Insurance Name Company Name Plan Name Plan Number Policy Number [place] Group Number Start Date Medicare [facility] Medicare [facility] [id number] [address] [facility] [id number] N/A Medicare Part B Medicare Of [place] [id number] N/A Medicare [facility] Medicare [facility] [id number] N/A [facility] - [facility] [id number] N/A Medicare Part A Medicare - Lab/Xray [id number] N/A History of Encounters Visit Date Visit [...]
--- OUTSIDE RECORDS SUMMARY | 2019-09-01 04:55 | XMS REPORT ---
Author Author Olivia Lyons Organization [facility] Physicians oup Address [address] [place], [place] [address] Care Team Providers Care Glove Examiner Name Role Phone Slim Lyons PCP Jean-Pierre [...] Number Start Date Medicare RHC Medicare RHC [id number] 2016 [facility] [id number] N/A Medicare Part A Medicare - Lab/Xray [id number] N/A Medicare RHC Medicare RHC [id number] N/A History of Encounters Visit Date Visit Type Provider 02/17/2018 Office visit Slim Lyons MD 02/11/2018 Office visit Jean-Pierre Mejía DO 01/14/2018 Office visit Jean-Pierre Mejía DO 12/30/2017 Office visit Jean-Pierre Mejía DO 10/27/2017 Office visit Jean-Pierre Mejía DO 10/16/2017 Office visit Jean-Pierre Mejía DO 09/24/2017 Office visit Jean-Pierre Mejía DO
--- OUTSIDE RECORDS SUMMARY | 2019-09-01 04:55 | XMS REPORT ---
Author Author Olivia Mejía [facility] Physicians oup Address [address] [place], [place] [address] Care Team Providers Care Property Handler Name Role Phone Jean-Pierre Mejía PCP Jean-Pierre Mejía PreferredProvider Allergies and Adverse Reactions Name Reaction Notes No known drug allergy Plan of Treatment Planned Activity Comments Planned Date Planned Time Plan/Goal ESOPHAGUS 02/02/2018 12:00 AM Medications Active Name Start Date [...] by oral route 2 times per day montelukast 10 mg oral tablet 01/14/2018 02/13/2018 ta ke 1 tablet (10 mg) by oral route once daily in the evening for 30 days loratadine 10 mg oral tablet 01/14/2018 02/13/2018 georgiana e 1 tablet (10 mg) by oral route once daily for 30 days rizatriptan 10 mg oral tablet,disintegrating 01/21/2018 DISSOLVE 1 TABLET UNDER TONGUE AT ONSET OF HEADACHE *MAY REPEAT IN 2 HOUR INTERVALS Symbicort 160-4.5 mcg/actuation inhalation HFA aerosol inhaler INHALE 2 PUFFS BY MOUTH TWICE DAILY Discontinued Name Start Date Discontinued Date SIG [...] HC BMI BSA BMI Percentile O2 Sat(%) 01/14/2018 1:59:00 PM 138 mmHg 78 mmHg [...] 01/14/2018 12:00 AM CINE/VID X-RAY THROAT/ESOPH Reviewed Results Summary Date and Description Results [...] 2018 2:01PM Dysphagia Feb 02 2018 11:13AM Payers Insurance Name Company Name Plan Name Plan Number Policy Number [place] Group Number Start Date Medicare RHC Medicare RHC [id number] N/A [facility] [id number] N/A Medicare Part A Medicare - Lab/Xray [id number] N/A History of Encounters Visit Date Visit Type Provider 01/14/2018 Office visit Jean-Pierre Mejía DO 12/30/2017 Office visit Jean-Pierre Mejía DO 10/27/2017 Office visit Jean-Pierre Mejía DO 10/16/2017 Office visit Jean-Pierre Mejía DO 09/24/2017 Office visit Jean-Pierre Mejía DO
--- OUTSIDE RECORDS SUMMARY | 2019-09-01 04:55 | XMS REPORT ---
Author Author Olivia Mejía [facility] Physicians oup Address [address] [place], [place] [address] Care Team Providers Care Training And Development Project Leader Name Role Phone Jean-Pierre Mejía PCP Jean-Pierre [...] Number Start Date Medicare RHC Medicare RHC [id number] N/A [facility] [id number] N/A Medicare Part A Medicare - Lab/Xray [id number] N/A History of Encounters Visit Date Visit Type Provider 01/14/2018 Office visit Jean-Pierre Mejía DO 12/30/2017 Office visit Jean-Pierre Mejía DO 10/27/2017 Office visit Jean-Pierre Mejía DO 10/16/2017 Office visit Jean-Pierre Mejía DO 09/24/2017 Office visit Jean-Pierre Mejía DO
--- OUTSIDE RECORDS SUMMARY | 2019-09-01 04:55 | XMS REPORT ---
Author Author Olivia Mejía [facility] Physicians oup Address [address] [place], [place] [address] Care Team Providers Care Mass Spec Name Role Phone Jean-Pierre Mejía PCP Jean-Pierre Mejía PreferredProvider Allergies and Adverse Reactions Name Reaction Notes No known drug allergy Plan of Treatment Planned Activity Comments Planned Date Planned Time Plan/Goal US ART DOPP W/EX LOWER EXT 12/30/2017 12:00 AM Mammogram, screening, bilateral 12/30/2017 12:00 AM Medications Active Name Start Date Estimated Completion Date SIG Co mments Cymbalta 60 mg oral capsule,delayed release(DR/EC) take 2 capsules (120 mg) by oral route once daily Ventolin HFA 90 mcg/actuation inhalation HFA aerosol inhaler inhale 2 puffs (180 mcg) by inhalation route every 6 hours as needed Symbicort 160-4.5 mcg/actuation inhalation HFA aerosol inhaler inhale 2 puffs by inhalation route 2 times per day in the morning and evening Protonix 40 mg oral tablet,delayed release (DR/EC) [...] mg oral tablet extended release 24hr 12/30/2017 12/25/2018 take 1 tablet (30 mg) by oral route once daily for 90 days Discontinued Name Start Date [...] once daily at bedtime restlessness at night Problem List Description Status Onset Anxiety Active Bipolar disorder Active COPD (chronic obstructive pulmonary disease) Active GERD (gastroesophageal reflux disease) Active Hypertension Active Irritable bowel disease Active OCD (obsessive compulsive disorder) Active Panic attack Active Prediabetes Active PTSD (post-traumatic stress disorder) Active Schizophrenia Active Vital Signs Date Time BP-Sys(mm[Hg] BP-Daya(mm[Hg]) HR(bpm) RR(rpm) Temp WT HT HC BMI BSA BMI Percentile O2 Sat(%) 12/30/2017 9:55:00 AM 120 mmHg 84 mmHg [...] AM COMPLETE CBC W/AUTO DIFF WBC Reviewed Results Summary Date and Description Results [...] 2017 9:56AM Prediabetes Dec 30 2017 9:56AM Payers Insurance Name Company Name Plan Name Plan Number Policy Number [place] Group Number Start Date Medicare RHC Medicare RHC [id number] N/A [facility] - [facility] [id number] N/A Medicare Part A Medicare - Lab/Xray [id number] N/A History of Encounters Visit Date Visit Type Provider 12/30/2017 Office visit Jean-Pierre Mejía DO 10/27/2017 Office visit Jean-Pierre Mejía DO 10/16/2017 Office visit Jean-Pierre Mejía DO 09/24/2017 Office visit Jean-Pierre Mejía DO
--- OUTSIDE RECORDS SUMMARY | 2019-09-01 04:55 | XMS REPORT ---
Author Author Olivia Lyons Organization [facility] Physicians oup Address [address] [place], [place] [address] Care Team Providers Care Isotope Technologist Name Role Phone Slim Lyons PCP Jean-Pierre Mejía PreferredProvider Allergies and Adverse Reactions Name Reaction Notes No known drug allergy Plan of Treatment Planned Activity Comments Planned Date Planned Time Plan/Goal US ECHO 2D COMP WITH DOPP AND COLOR 02/11/2018 12:00 AM Hip Complete Min 2Views - MOB 02/11/2018 12:00 AM Medications Active Name Start [...] 02/02/2018 12:00 AM CONTRAST X-RAY ESOPHAGUS Reviewed Results Summary Date and Description Results [...] Hip pain, right Feb 11 2018 3:18PM Payers Insurance Name Company Name Plan Name Plan Number Policy Number [place] Group Number Start Date Medicare RHC Medicare RHC [id number] 2016 [facility] [id number] N/A Medicare Part A Medicare - Lab/Xray [id number] N/A Medicare RHC Medicare RHC [id number] N/A History of Encounters Visit Date Visit Type Provider 02/17/2018 Office visit Slim Lyons MD 02/11/2018 Office visit Jean-Pierre Mejía DO 01/14/2018 Office visit Jean-Pierre Mejía DO 12/30/2017 Office visit Jean-Pierre Mejía DO 10/27/2017 Office visit Jean-Pierre Mejía DO 10/16/2017 Office visit Jean-Pierre Mejía DO 09/24/2017 Office visit Jean-Pierre Mejía DO
--- OUTSIDE RECORDS SUMMARY | 2019-09-01 04:55 | XMS REPORT ---
Author Author Olivia Lyons Organization [facility] Physicians oup Address [address] [place], [place] [address] Care Team Providers Care Marketing Support Coordinator Name Role Phone Slim Lyons PCP Jean-Pierre [...] Dysphagia, pharyngeal phase Feb 17 2018 2:46PM Payers Insurance Name Company Name Plan Name Plan Number Policy Number [place] Group Number Start Date Medicare RHC Medicare RHC [id number] 2016 [facility] [id number] N/A Medicare Part A Medicare - Lab/Xray [id number] N/A Medicare RHC Medicare RHC [id number] N/A History of Encounters Visit Date Visit Type Provider 02/17/2018 Office visit Slim Lyons MD 02/11/2018 Office visit Jean-Pierre Mejía DO 01/14/2018 Office visit Jean-Pierre Mejía DO 12/30/2017 Office visit Jean-Pierre Mejía DO 10/27/2017 Office visit Jean-Pierre Mejía DO 10/16/2017 Office visit Jean-Pierre Mejía DO 09/24/2017 Office visit Jean-Pierre Mejía DO
--- OUTSIDE RECORDS SUMMARY | 2019-09-01 04:55 | XMS REPORT ---
Author Author Olivia Mejía [facility] Physicians oup Address [address] [place], [place] [address] Care Team Providers Care Benefits Representative Name Role Phone Jean-Pierre Mejía PCP Jean-Pierre [...] Number Start Date Medicare RHC Medicare RHC [id number] N/A [facility] [place] [id number] N/A Medicare Part A Medicare - Lab/Xray [id number] N/A History of Encounters Visit Date Visit Type Provider 01/14/2018 Office visit Jean-Pierre Mejía DO 12/30/2017 Office visit Jean-Pierre Mejía DO 10/27/2017 Office visit Jean-Pierre Mejía DO 10/16/2017 Office visit Jean-Pierre Mejía DO 09/24/2017 Office visit Jean-Pierre Mejía DO
--- OUTSIDE RECORDS SUMMARY | 2019-09-01 04:56 | XMS REPORT ---
Author Author Olivia Mejía [facility] ou Address [address] [place], [place] [id number] Care Team Providers Care Aquatic Instructor Name Role Phone Jean-Pierre Mejía PCP Jean-Pierre Mejía PreferredProvider Allergies and Adverse Reactions Name Reaction Notes No known drug allergy Plan of Treatment Not available. Medications Active Name Start Date Estimated Completion Date SIG Co mments Dulcolax Stool Softener (dss) 100 mg oral capsule take 1 capsule (100 mg) by oral route 2 times per day tramadol 50 mg oral tablet take 1 tablet (50 mg) by oral route TID PRN metformin 500 mg oral tablet georgiana e 1 tablet (500 mg) by oral route 2 times per day with morning and evening meals Cymbalta 60 mg oral capsule,delayed release(DR/EC) take 2 capsules (120 mg) by oral route once daily Klonopin 0.5 mg oral tablet take 1 tablet (0.5 mg) by oral route daily as needed risperidone 0.5 mg oral tablet take 1 tab let by oral route once daily Imitrex 100 mg oral tablet take 1 tablet (100 mg) by oral route once with fluids as early as possible after the onset of a migraine attack;may repeat after 2 hours if headache returns, not to exceed 200mg in 24hrs Ventolin HFA 90 mcg/actuation inhalation HFA aerosol inhaler inhale 2 puffs (180 mcg) by inhalation route every 6 hours as needed Symbicort 160-4.5 mcg/actuation inhalation HFA aerosol inhaler inhale 2 puffs by inhalation route 2 times per day in the morning and evening lisinopril-hydrochlorothiazide 20-25 mg oral tablet 09/24/2017 10/24/2017 take 0.5 tablet by oral route once daily Protonix 40 mg oral tablet,delayed release (DR/EC) 10/07/2017 take 1 tablet (40 mg) by oral route once daily for 90 days Name Start Date Expiration Date SIG Comments dicyclomine 10 mg oral capsule 10/08/2017 10/08/2017 t ellie 1 capsule (10 mg) by oral route 3 times per day with meals Discontinued Name Start Date Discontinued Date SIG Comments omeprazole 20 mg oral capsule,delayed release(DR/EC) 10/07/2017 take 1 capsule (20 mg) by oral route 2 times per day Migraine headaches Problem List Description Status Onset Anxiety Active Bipolar disorder Active COPD (chronic obstructive pulmonary disease) Active GERD (gastroesophageal reflux disease) Active Hypertension Active Irritable bowel disease Active OCD (obsessive compulsive disorder) Active Panic attack Active Prediabetes Active PTSD (post-traumatic stress disorder) Active Schizophrenia Active Vital Signs Date Time BP-Sys(mm[Hg] BP-Daya(mm[Hg]) HR(bpm) RR(rpm) Temp WT HT HC BMI BSA BMI Percentile O2 Sat(%) 09/24/2017 1:24:00 PM 116 mmHg 70 mmHg 94 bpm 16 rpm 98 F 202 lbs 66 in 32.60 kg/m2 2.07 m2 97 % Social History Name [...] Irritable bowel disease Sep 24 2017 1:27PM Payers Insurance Name Company Name Plan Name Plan Number Policy Number [place] Group Number Start Date Medicare RHC Medicare RHC [id number] N/A [facility] [id number] N/A Medicare Part A Medicare - Lab/Xray [id number] N/A History of Encounters Visit Date Visit Type Provider 09/24/2017 Office visit Jean-Pierre Mejía DO
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
--- OUTSIDE RECORDS SUMMARY | 2019-09-01 04:56 | XMS REPORT ---
Author Author Olivia Mejía [facility] Address [address] [place], [place] [id number] Care Team Providers Care Carpet Inspector Finished Name Role Phone Jean-Pierre Mejía PCP Jean-Pierre [...] by oral route 2 times per day Discontinued Name Start Date Discontinued Date [...] Number Start Date Medicare RHC Medicare RHC [id number] N/A [facility] [id number] N/A Medicare Part A Medicare - Lab/Xray [id number] N/A History of Encounters Visit Date Visit Type Provider 12/30/2017 Office visit Jean-Pierre Mejía DO 10/27/2017 Office visit Jean-Pierre Mejía DO 10/16/2017 Office visit Jean-Pierre Mejía DO 09/24/2017 Office visit Jean-Pierre Mejía DO
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
--- OUTSIDE RECORDS SUMMARY | 2019-09-01 04:57 | XMS REPORT ---
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 [id number] [place] [address] November, [facility] [address] [place] [id number] November, [facility] [address] [id number] [place] [address] November, [facility] [address] [id number] [place] [address] November, [facility] [address] [id number] [place] [address] November, [facility] [address] [id number] [place] [address] November, [facility] [facility] [address] [id number] [place] [address] November, [facility] [place] [facility] [address] [id number] [place] [address] Oct, [facility] [place] [facility] [address] [id number] [place] [address] Oct, [facility] [place] [facility] [address] [id number] [place] [address] Oct, [facility] [place] [facility] [address] [id number] [place] [address] Oct, [facility] [place] [facility] [address] [id number] [place] [address] Oct, [facility] [place] [facility] [address] [id number] [place] [address] Oct, [facility] [place] [facility] [address] [id number] [place] [address] Oct, [facility] [place] [facility] [address] [id number] [place] [address] Oct, [facility] [place] [facility] [address] [id number] [place] [address] Oct, [facility] [place] [facility] [address] [facility] [id number] [facility] [place] [address] Oct, [facility] [place] [facility] [address] [id number] [facility] [place] [address] Oct, [facility] [place] [facility] [address] [id number] [facility] [place] [address] Oct, [facility] [place] [facility] [address] [facility] [id number] [facility] [place] [address] Oct, [facility] [place] [facility] [address] [id number] [place] [address] Oct, [facility] [place] [facility] [address] [id number] [place] [address] Oct, [facility] [place] [facility] [address] [id number] [place] [address] Sep, [facility] [place] [facility] [address] [id number] [place] [address] Sep, [facility] [place] [facility] [address] [id number] [place] [address] Sep, [facility] [place] [facility] [address] [id number] [place] [address] Sep, [facility] [place] [facility] [address] [id number] [place] [address] Aug, [facility] [place] [facility] [address] [id number] [place] [address] Aug, [facility] [place] [facility] [address] [id number] [place] [address] Aug, [facility] [place] [facility] [address] [id number] [place] [address] Aug, [facility] [place] [facility] [address] [id number] [place] [address] Jul, [facility] [place] [facility] [address] [id number] [facility] [place] [address] Jul, [facility] [place] [facility] [address] [id number] [place] [address] Jul, [facility] [place] [facility] [address] [id number] [place] [address] Jul, [facility] [place] [facility] [address] [id number] [place] [address] Jul, [facility] [place] [facility] [address] [id number] [place] [address] Jul, [facility] [place] [facility] [address] [id number] [place] [address] Jul, [facility] [place] [facility] [address] [id number] [place] [address] Jul, [facility] [place] [facility] [address] [id number] [place] [address] Jul, [facility] [place] [facility] [address] [id number] [place] [address] Jul, [facility] [place] [facility] [address] [id number] [place] [address] Jul, [facility] [place] [facility] [address] [id number] [place] [address] Jul, [facility] [place] [facility] [address] [id number] [place] [address] Jul, [facility] [place] [facility] [address] [id number] [place] [address] Jul, [facility] [place] [facility] [address] [id number] [place] [address] Jun, [facility] [place] [facility] [address] [id number] [place] [address] Jun, [facility] [place] [facility] [address] [id number] [place] [address] Jun, [facility] [place] [facility] [address] [id number] [place] [address] Jun, [facility] [place] [facility] [address] [id number] [place] [address] May, [facility] [place] [facility] [address] [id number] [place] [address] May, [facility] [place] [facility] [address] [id number] [place] [address] May, [facility] [place] [facility] [address] [id number] [place] [address] May, [facility] [place] [facility] [address] [id number] [place] [address] May, [facility] [place] [facility] [address] [id number] [place] [address] May, [facility] [place] [facility] [address] [id number] [place] [address] May, [facility] [place] [facility] [address] [id number] [place] [address] May, [facility] [place] [facility] [address] [id number] [place] [address] Apr, [facility] [place] [facility] [address] [id number] [place] [address] Apr, [facility] [place] [facility] [address] [id number] [place] [address] Apr, [facility] [place] [facility] [address] [id number] [place] [address] Apr, [facility] [place] [facility] [address] [id number] [place] [address] Apr, [facility] [place] [facility] [address] [id number] [place] [address] Apr, [facility] [place] [facility] [address] [id number] [place] [address] 30 Mar, 2013 [facility] [place] [facility] [address] [id number] [place] [address] 26 Mar, 2013 [facility] [place] [facility] [address] [id number] [place] [address] 20 Sep, 2013 [facility] [place] [facility] [address] [id number] [facility] [place] [address] 17 Mar, 2013 [facility] [place] [facility] [address] [facility] [id number] [facility] [place] [address] 16 Mar, 2013 [facility] [place] [facility] [address] [facility] [id number] [facility] [place] [address] 05 Mar, 2013 [facility] [place] [facility] [address] [facility] [id number] [place] [address] Feb, [facility] [place] [facility] [address] [facility] [id number] [facility] [place] [address] Feb, [facility] [place] [facility] [address] [facility] [id number] [facility] [address] Feb, [facility] [place] [facility] [address] [id number] [place] [address] Feb, [facility] [place] [facility] [address] [id number] [place] [address] Jan, [facility] [place] [facility] [address] [facility] [id number] [place] [address] Jan, [facility] [place] [facility] [address] [id number] [facility] [place] [address] Jan, [facility] [place] [facility] [address] [id number] [place] [address] Jan, [facility] [place] [facility] [address] [id number] [place] [address] Jan, [facility] [place] [facility] [address] [facility] [id number] [place] [address] Dec, [facility] [address] [facility] [id number] [place] [address] Dec, [facility] [address] [facility] [id number] [place] [address] Dec, [facility] [address] [id number] [facility] [place] [address] November, [facility] [address] [facility] [id number] [place] [address] November, [facility] [address] [id number] [place] [address] November, [facility] [address] [facility] [id number] [place] [address] Oct, [facility] [address] [facility] [id number] [place] [address] Oct, [facility] [address] [facility] [id number] [place] [address] Oct, [facility] [address] [facility] [id number] [place] [address] Oct, [facility] [address] [facility] [id number] [place] [address] Oct, [facility] [address] [facility] [id number] [place] [address] Oct, [facility] [address] [facility] [id number] [place] [address] 15 Oct, 2012 [facility] [address] [facility] [id number] [place] [address] Sep, [facility] [address] [facility] [id number] [place] [address] Sep, [facility] [address] [facility] [id number] [place] [address] Sep, [facility] [address] [facility] [id number] [place] [address] Sep, [facility] [address] [facility] [id number] [place] [address] Aug, [facility] [address] [facility] [id number] [place] [address] Aug, [facility] [address] [facility] [id number] [place] [address] Aug, [facility] [address] [facility] [id number] [place] [address] Aug, [facility] [address] [facility] [id number] [place] [address] Aug, [facility] [address] [facility] [id number] [place] [address] Aug, [facility] [address] [facility] [id number] [place] [address] Jul, [facility] [address] [id number] [place] [address] Jul, [facility] [address] [facility] [id number] [place] [address] Jul, [facility] [address] [facility] [id number] [place] [address] Jul, [facility] [address] [facility] [id number] [place] [address] Jul, [facility] [address] [facility] [id number] [place] [address] Jul, [facility] [address] [facility] [id number] [place] [address] Jun, [facility] [address] [facility] [id number] [place] [address] Jun, [facility] [address] [facility] [id number] [place] [address] Jun, [facility] [address] [facility] [id number] [place] [address] Jun, [facility] [address] [facility] [id number] [place] [address] Jun, [facility] [address] [facility] [id number] [place] [address] Jun, [facility] [address] [facility] [id number] [place] [address] May, [facility] [address] [facility] [id number] [place] [address] May, [facility] [address] [facility] [id number] [place] [address] May, [facility] [address] [facility] [id number] [place] [address] May, [facility] [address] [facility] [id number] [place] [address] May, [facility] [address] [facility] [id number] [place] [address] May, [facility] [address] [facility] [id number] [place] [address] May, [facility] [address] [facility] [id number] [place] [address] May, [facility] [address] [facility] [id number] [place] [address] May, [facility] [address] [facility] [id number] [place] [address] May, [facility] [address] [facility] [id number] [place] [address] Apr, [facility] [address] [facility] [id number] [place] [address] 31 Apr, 2012 [facility] [address] [facility] [id number] [place] [address] Apr, [facility] [address] [id number] [place] [address] Apr, [facility] [address] [facility] [id number] [place] [address] 16 Apr, 2012 [facility] [address] [facility] [id number] [place] [address] 16 Apr, 2012 [facility] [address] [facility] [id number] [place] [address] 15 Apr, 2012 [facility] [address] [facility] [id number] [place] [address] 15 Apr, 2012 [facility] [address] [id number] [place] [address] Apr, [facility] [address] [facility] [id number] [facility] [place] [address] 28 Mar, 2012 [facility] [address] [id number] [place] [address] 26 Mar, 2012 [facility] [address] [facility] [id number] [place] [address] 25 Mar, 2012 [facility] [address] [id number] [place] [address] 19 Mar, 2012 [facility] [address] [id number] [place] [address] 18 Mar, 2012 [facility] [address] [id number] [place] [address] 05 Mar, 2012 [facility] [address] [id number] [place] [address] Feb, [facility] [address] [id number] [place] [address] Feb, [facility] [address] [id number] [place] [address] Feb, [facility] [address] [id number] [place] [address] Jan, [facility] [address] [id number] [place] [address] Jan, [facility] [address] [id number] [place] [address] Jan, [facility] [address] [id number] [place] [address] Jan, [facility] [address] [id number] [place] [address] Dec, [facility] [address] [id number] [place] [address] November, [facility] [address] [id number] [place] [address] November, [facility] [address] [id number] [place] [address] November, [facility] [address] [id number] [place] [address] November, [facility] [address] [id number] [place] [address] November, [facility] [address] [id number] [place] [address] November, [facility] [address] [id number] [place] [address] Oct, [facility] [address] [id number] [place] [address] Oct, [facility] [address] [id number] [place] [address] Sep, [facility] [address] [id number] [place] [address] Sep, [facility] [address] [id number] [place] [address] Sep, [facility] [address] [id number] [place] [address] Aug, [facility] [address] [id number] [place] [address] Aug, [facility] [address] [id number] [place] [address] Aug, [facility] [address] [id number] [place] [address] Aug, [facility] [address] [id number] [place] [address] Aug, [facility] [address] [id number] [place] [address] Aug, [facility] [address] [id number] [place] [address] Jul, [facility] [address] [id number] [place] [address] Jul, [facility] [address] [id number] [place] [address] 22 Jul, 2011 [facility] [address] [id number] [place] [address] Jul, [facility] [address] [id number] [place] [address] Jul, [facility] [address] [id number] [place] [address] Jul, [facility] [address] [id number] [place] [address] Jul, [facility] [address] [id number] [place] [address] Jul, [facility] [address] [id number] [place] [address] Jul, [facility] [address] [id number] [place] [address] Jul, [facility] [address] [id number] [place] [address] Jun, [facility] [address] [id number] [place] [address] Jun, [facility] [address] [id number] [place] [address] Jun, [facility] [address] [id number] [place] [address] Jun, [facility] [address] [id number] [place] [address] 30 May, 2011 [facility] [address] [id number] [place] [address] 29 May, 2011 [facility] [id number] [place] [address] May, [facility] [address] [id number] [place] [address] 08 May, 2011 [facility] [address] [id number] [place] [address] Apr, [facility] [address] [id number] [place] [address] Apr, [facility] [address] [id number] [place] [address] November, [facility] [address] [id number] [place] [address] Oct, [facility] [address] [id number] [place] [address] 17 Aug, 2010 [facility] [address] [id number] [place] [address] Jun, [facility] [address] [id number] [place] [address] Jun, [facility] [address] [id number] [place] [address] Jun, [facility] [address] [id number] [place] [address] Jun, [facility] [address] [id number] [place] [address] May, [facility] [address] [id number] [place] [address] 27 Apr, 2010 [facility] [address] [id number] [place] [address] Oct, [facility] [address] [id number] [place] [address] 13 Aug, 2009 [facility] [address] [id number] [place] [address] Jul, [facility] [address] [id number] [place] [address] 22 Jun, 2009 [facility] [address] [id number] [place] [address] 16 Jun, 2009 [facility] [address] [id number] [place] [address] 14 Jun, 2009 [facility] [address] [id number] [place] [address] Jun, [facility] [address] [id number] [place] [address] May, [facility] [address] [id number] [place] [address] Apr, [facility] [address] [id number] [place] [address] 15 Mar, 2009 [facility] [address] [id number] [place] [address] 14 Mar, 2009 [facility] [address] [id number] [place] [address] Dec, IMMUNIZATIONS No Known Immunizations SOCIAL HISTORY Never Assessed REASON FOR VISIT PLAN OF CARE VITAL SIGNS MEDICATIONS Unknown Medications RESULTS No Results PROCEDURES No Known procedures INSTRUCTIONS MEDICATIONS ADMINISTERED No Known Medications MEDICAL [...]
--- OUTSIDE RECORDS SUMMARY | 2019-09-01 04:57 | XMS REPORT ---
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 [address] November, [facility] [place] [facility] [address] [id number] [place] [address] November, [facility] [place] [facility] [address] [id number] [place] [address] November, [facility] [place] [facility] [address] [id number] [place] [address] November, [facility] [address] [id number] [place] [address] November, [facility] [address] [id number] [place] [address] November, [facility] [address] [place] [id number] November, [facility] [address] [id number] [place] [address] November, [facility] [address] [id number] [place] [address] November, [facility] [address] [id number] [place] [address] November, [facility] [address] [id number] [place] [address] November, [facility] [facility] [address] [id number] [place] [address] November, [facility] [place] [facility] [address] [id number] [place] [address] Oct, [facility] [place] [facility] [address] [id number] [place] [address] Oct, [facility] [facility] [address] [id number] [place] [address] Oct, [facility] [place] [facility] [address] [id number] [place] [address] Oct, [facility] [facility] [address] [id number] [place] [address] Oct, [facility] [place] [facility] [address] [id number] [place] [address] Oct, [facility] [facility] [address] [id number] [place] [address] Oct, [facility] [place] [facility] [address] [id number] [place] [address] Oct, [facility] [place] [facility] [address] [id number] [place] [address] Oct, [facility] [place] [facility] [address] [facility] [id number] [facility] [place] [address] Oct, [facility] [place] [facility] [address] [id number] [facility] [place] [address] Oct, [facility] [place] [facility] [address] [id number] [facility] [place] [address] Oct, [facility] [place] [facility] [address] [facility] [id number] [facility] [place] [address] Oct, [facility] [place] [facility] [address] [id number] [place] [address] Oct, [facility] [place] [facility] [address] [id number] [place] [address] Oct, [facility] [place] [facility] [address] [id number] [place] [address] Sep, [facility] [place] [facility] [address] [id number] [place] [address] Sep, [facility] [place] [facility] [address] [id number] [place] [address] Sep, [facility] [place] [facility] [address] [id number] [place] [address] Sep, [facility] [place] [facility] [address] [id number] [place] [address] Aug, [facility] [place] [facility] [address] [id number] [place] [address] Aug, [facility] [place] [facility] [address] [id number] [place] [address] Aug, [facility] [place] [facility] [address] [id number] [place] [address] Aug, [facility] [place] [facility] [address] [id number] [place] [address] Jul, [facility] [place] [facility] [address] [id number] [facility] [place] [address] Jul, [facility] [place] [facility] [address] [id number] [place] [address] Jul, [facility] [place] [facility] [address] [id number] [place] [address] Jul, [facility] [place] [facility] [address] [id number] [place] [address] Jul, [facility] [place] [facility] [address] [id number] [place] [address] Jul, [facility] [place] [facility] [address] [id number] [place] [address] Jul, [facility] [place] [facility] [address] [id number] [place] [address] Jul, [facility] [place] [facility] [address] [id number] [place] [address] Jul, [facility] [place] [facility] [address] [id number] [place] [address] Jul, [facility] [place] [facility] [address] [id number] [place] [address] Jul, [facility] [place] [facility] [address] [id number] [place] [address] Jul, [facility] [place] [facility] [address] [id number] [place] [address] Jul, [facility] [place] [facility] [address] [id number] [place] [address] Jul, [facility] [place] [facility] [address] [id number] [place] [address] Jun, [facility] [place] [facility] [address] [id number] [place] [address] Jun, [facility] [place] [facility] [address] [id number] [place] [address] Jun, [facility] [place] [facility] [address] [id number] [place] [address] Jun, [facility] [place] [facility] [address] [id number] [place] [address] May, [facility] [place] [facility] [address] [id number] [place] [address] May, [facility] [place] [facility] [address] [id number] [place] [address] May, [facility] [place] [facility] [address] [id number] [place] [address] May, [facility] [place] [facility] [address] [id number] [place] [address] May, [facility] [place] [facility] [address] [id number] [place] [address] May, [facility] [place] [facility] [address] [id number] [place] [address] May, [facility] [place] [facility] [address] [id number] [place] [address] May, [facility] [place] [facility] [address] [id number] [place] [address] Apr, [facility] [place] [facility] [address] [id number] [place] [address] Apr, [facility] [place] [facility] [address] [id number] [place] [address] Apr, [facility] [place] [facility] [address] [id number] [place] [address] Apr, [facility] [place] [facility] [address] [id number] [place] [address] Apr, [facility] [place] [facility] [address] [id number] [place] [address] Apr, [facility] [place] [facility] [address] [id number] [place] [address] 30 Mar, 2013 [facility] [place] [facility] [address] [id number] [place] [address] 26 Mar, 2013 [facility] [place] [facility] [address] [id number] [place] [address] 20 Sep, 2013 [facility] [place] [facility] [address] [id number] [facility] [place] [address] 17 Mar, 2013 [facility] [place] [facility] [address] [facility] [id number] [facility] [place] [address] 16 Mar, 2013 [facility] [place] [facility] [address] [facility] [id number] [facility] [place] [address] 05 Mar, 2013 [facility] [place] [facility] [address] [facility] [id number] [place] [address] Feb, [facility] [place] [facility] [address] [facility] [id number] [facility] [place] [address] Feb, [facility] [place] [facility] [address] [facility] [id number] [facility] [place] [address] Feb, [facility] [place] [facility] [address] [id number] [place] [address] Feb, [facility] [place] [facility] [address] [id number] [place] [address] Jan, [facility] [place] [facility] [address] [facility] [id number] [place] [address] Jan, [facility] [place] [facility] [address] [id number] [facility] [place] [address] Jan, [facility] [place] [facility] [address] [id number] [place] [address] Jan, [facility] [place] [facility] [address] [id number] [place] [address] Jan, [facility] [place] [facility] [address] [facility] [id number] [place] [address] Dec, [facility] [place] [facility] [address] [facility] [id number] [place] [address] Dec, [facility] [place] [facility] [address] [facility] [id number] [place] [address] Dec, [facility] [place] [facility] [address] [id number] [facility] [place] [address] November, [facility] [place] [facility] [address] [id number] [place] [address] November, [facility] [address] [id number] [place] [address] November, [facility] [place] [facility] [address] [id number] [place] [address] Oct, [facility] [place] [facility] [address] [id number] [place] [address] Oct, [facility] [place] [facility] [address] [id number] [place] [address] Oct, [facility] [place] [facility] [address] [id number] [place] [address] Oct, [facility] [place] [facility] [address] [id number] [place] [address] Oct, [facility] [place] [facility] [address] [id number] [place] [address] Oct, [facility] [place] [facility] [address] [id number] [place] [address] 15 Oct, 2012 [facility] [place] [facility] [address] [id number] [place] [address] Sep, [facility] [place] [facility] [address] [id number] [place] [address] Sep, [facility] [place] [facility] [address] [id number] [place] [address] Sep, [facility] [place] [facility] [address] [id number] [place] [address] Sep, [facility] [place] [facility] [address] [id number] [place] [address] Aug, [facility] [place] [facility] [address] [id number] [place] [address] Aug, [facility] [address] [id number] [place] [address] Aug, [facility] [address] [id number] [place] [address] Aug, [facility] [address] [id number] [place] [address] Aug, [facility] [address] [id number] [place] [address] Aug, [facility] [address] [id number] [place] [address] Jul, [facility] [address] [id number] [place] [address] Jul, [facility] [address] [id number] [place] [address] Jul, [facility] [address] [id number] [place] [address] Jul, [facility] [address] [id number] [place] [address] Jul, [facility] [address] [id number] [place] [address] Jul, [facility] [address] [id number] [place] [address] Jun, [facility] [address] [id number] [place] [address] Jun, [facility] [address] [id number] [place] [address] Jun, [facility] [address] [id number] [place] [address] Jun, [facility] [address] [id number] [place] [address] Jun, [facility] [address] [id number] [place] [address] Jun, [facility] [address] [id number] [place] [address] May, [facility] [address] [id number] [place] [address] May, [facility] [address] [id number] [place] [address] May, [facility] [address] [facility] [id number] [place] [address] May, [facility] [address] [id number] [place] [address] May, [facility] [address] [id number] [place] [address] May, [facility] [address] [id number] [place] [address] May, [facility] [address] [facility] [id number] [place] [address] May, [facility] [address] [id number] [place] [address] May, [facility] [address] [id number] [place] [address] May, [facility] [address] [id number] [place] [address] Apr, [facility] [address] [id number] [place] [address] 31 Apr, 2012 [facility] [address] [id number] [place] [address] Apr, [facility] [address] [id number] [place] [address] Apr, [facility] [address] [id number] [place] [address] 16 Apr, 2012 [facility] [address] [id number] [place] [address] 16 Apr, 2012 [facility] [address] [id number] [place] [address] 15 Apr, 2012 [facility] [address] [id number] [place] [address] 15 Apr, 2012 [facility] [address] [id number] [place] [address] Apr, [facility] [address] [facility] [id number] [facility] [place] [address] 28 Mar, 2012 [facility] [address] [id number] [place] [address] 26 Mar, 2012 [facility] [address] [id number] [place] [address] 25 Mar, 2012 [facility] [address] [id number] [place] [address] 19 Mar, 2012 [facility] [address] [id number] [place] [address] 18 Mar, 2012 [facility] [address] [id number] [place] [address] 05 Mar, 2012 [facility] [address] [id number] [place] [address] Feb, [facility] [address] [id number] [place] [address] Feb, [facility] [address] [id number] [place] [address] Feb, [facility] [address] [id number] [place] [address] Jan, [facility] [address] [id number] [place] [address] Jan, [facility] [address] [id number] [place] [address] Jan, [facility] [address] [id number] [place] [address] Jan, [facility] [address] [id number] [place] [address] Dec, [facility] [address] [id number] [place] [address] November, [facility] [address] [id number] [place] [address] November, [facility] [address] [id number] [place] [address] November, [facility] [address] [id number] [place] [address] November, [facility] [address] [id number] [place] [address] November, [facility] [address] [id number] [place] [address] November, [facility] [address] [id number] [place] [address] Oct, [facility] [address] [id number] [place] [address] Oct, [facility] [address] [id number] [place] [address] Sep, [facility] [address] [id number] [place] [address] Sep, [facility] [address] [id number] [place] [address] Sep, [facility] [address] [id number] [place] [address] Aug, [facility] [address] [id number] [place] [address] Aug, [facility] [address] [id number] [place] [address] Aug, [facility] [address] [id number] [place] [address] Aug, [facility] [address] [id number] [place] [address] Aug, [facility] [address] [id number] [place] [address] Aug, [facility] [facility] [address] [id number] [place] [address] Jul, [facility] [address] [id number] [place] [address] Jul, [facility] [address] [id number] [place] [address] 22 Jul, 2011 [facility] [address] [id number] [place] [address] Jul, [facility] [address] [id number] [place] [address] Jul, [facility] [address] [id number] [place] [address] Jul, [facility] [address] [id number] [place] [address] Jul, [facility] [address] [id number] [place] [address] Jul, [facility] [address] [id number] [place] [address] Jul, [facility] [address] [id number] [place] [address] Jul, [facility] [address] [id number] [place] [address] Jun, [facility] [address] [id number] [place] [address] Jun, [facility] [address] [id number] [place] [address] Jun, [facility] [address] [id number] [place] [address] Jun, [facility] [address] [id number] [place] [address] 30 May, 2011 [facility] [address] [id number] [place] [address] 29 May, 2011 [facility] [id number] [place] [address] May, [facility] [address] [id number] [place] [address] 08 May, 2011 [facility] [address] [id number] [place] [address] Apr, [facility] [address] [id number] [place] [address] Apr[facility] [address] [id number] [place] [address] November, [facility] [address] [id number] [place] [address] Oct, [facility] [address] [id number] [place] [address] 17 Aug, 2010 [facility] [address] [id number] [place] [address] Jun, [facility] [address] [id number] [place] [address] Jun, [facility] [address] [id number] [place] [address] Jun, [facility] [address] [id number] [place] [address] Jun, [facility] [address] [id number] [place] [address] May, [facility] [address] [id number] [place] [address] 27 Apr, 2010 [facility] [address] [id number] [place] [address] Oct, [facility] [address] [id number] [place] [address] 13 Aug, 2009 [facility] [address] [id number] [place] [address] Jul, [facility] [address] [id number] [place] [address] 22 Jun, 2009 [facility] [address] [id number] [place] [address] 16 Jun, 2009 [facility] [address] [id number] [place] [address] 14 Jun, 2009 [facility] [address] [id number] [place] [address] Jun, [facility] [address] [id number] [place] [address] May, [facility] [address] [id number] [place] [address] Apr, [facility] [address] [id number] [place] [address] 15 Mar, 2009 [facility] [address] [id number] [place] [address] 14 Mar, 2009 [facility] [address] [id number] [place] [address] Dec, IMMUNIZATIONS No Known Immunizations SOCIAL HISTORY [...]
--- OUTSIDE RECORDS SUMMARY | 2019-09-01 04:58 | XMS REPORT ---
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 [id number] November, [facility] [address] [id number] [place] [address] November, [facility] [address] [id number] [place] [address] November, [facility] [address] [id number] [place] [address] November, [facility] [address] [id number] [place] [address] November, [facility] [place] [facility] [address] [id number] [place] [address] November, [facility] [place] [facility] [address] [id number] [place] [address] Oct, [facility] [place] [facility] [address] [id number] [place] [address] Oct, [facility] [place] [facility] [address] [id number] [place] [address] Oct, [facility] [place] [facility] [address] [id number] [place] [address] Oct, [facility] [place] [facility] [address] [id number] [place] [address] Oct, [facility] [place] [facility] [address] [id number] [place] [address] Oct, [facility] [place] [facility] [address] [id number] [place] [address] Oct, [facility] [place] [facility] [address] [id number] [place] [address] Oct, [facility] [place] [facility] [address] [id number] [place] [address] Oct, [facility] [place] [facility] [address] [facility] [id number] [place] [address] Oct, [facility] [place] [facility] [address] [id number] [place] [address] Oct, [facility] [place] [facility] [address] [id number] [place] [address] Oct, [facility] [place] [facility] [address] [facility] [id number] [place] [address] Oct, [facility] [place] [facility] [address] [id number] [place] [address] Oct, [facility] [place] [facility] [address] [id number] [place] [address] Oct, [facility] [place] [facility] [address] [id number] [place] [address] Sep, [facility] [place] [facility] [address] [id number] [place] [address] Sep, [facility] [place] [facility] [address] [id number] [place] [address] Sep, [facility] [place] [facility] [address] [id number] [place] [address] Sep, [facility] [place] [facility] [address] [id number] [place] [address] Aug, [facility] [place] [facility] [address] [id number] [place] [address] Aug, [facility] [place] [facility] [address] [id number] [place] [address] Aug, [facility] [place] [facility] [address] [id number] [place] [address] Aug, [facility] [place] [facility] [address] [id number] [place] [address] Jul, [facility] [place] [facility] [address] [id number] [place] [address] Jul, [facility] [place] [facility] [address] [id number] [place] [address] Jul, [facility] [place] [facility] [address] [id number] [place] [address] Jul, [facility] [place] [facility] [address] [id number] [place] [address] Jul, [facility] [place] [facility] [address] [id number] [place] [address] Jul, [facility] [place] [facility] [address] [id number] [place] [address] Jul, [facility] [place] [facility] [address] [id number] [place] [address] Jul, [facility] [place] [facility] [address] [id number] [place] [address] Jul, [facility] [place] [facility] [address] [id number] [place] [address] Jul, [facility] [place] [facility] [address] [id number] [place] [address] Jul, [facility] [place] [facility] [address] [id number] [place] [address] Jul, [facility] [place] [facility] [address] [id number] [place] [address] Jul, [facility] [place] [facility] [address] [id number] [place] [address] Jul, [facility] [place] [facility] [address] [id number] [place] [address] Jun, [facility] [place] [facility] [address] [id number] [place] [address] Jun, [facility] [place] [facility] [address] [id number] [place] [address] Jun, [facility] [place] [facility] [address] [id number] [place] [address] Jun, [facility] [place] [facility] [address] [id number] [place] [address] May, [facility] [place] [facility] [address] [id number] [place] [address] May, [facility] [place] [facility] [address] [id number] [place] [address] May, [facility] [place] [facility] [address] [id number] [place] [address] May, [facility] [place] [facility] [address] [id number] [place] [address] May, [facility] [place] [facility] [address] [id number] [place] [address] May, [facility] [place] [facility] [address] [id number] [place] [address] May, [facility] [place] [facility] [address] [id number] [place] [address] May, [facility] [place] [facility] [address] [id number] [place] [address] Apr, [facility] [place] [facility] [address] [id number] [place] [address] Apr, [facility] [place] [facility] [address] [id number] [place] [address] Apr, [facility] [place] [facility] [address] [id number] [place] [address] Apr, [facility] [place] [facility] [address] [id number] [place] [address] Apr, [facility] [place] [facility] [address] [id number] [place] [address] Apr, [facility] [place] [facility] [address] [id number] [place] [address] 30 Mar, 2013 [facility] [place] [facility] [address] [id number] [place] [address] 26 Mar, 2013 [facility] [place] [facility] [address] [id number] [place] [address] 20 Sep, 2013 [facility] [place] [facility] [address] [id number] [place] [address] 17 Mar, 2013 [facility] [place] [facility] [address] [facility] [id number] [place] [address] 16 Mar, 2013 [facility] [place] [facility] [address] [facility] [id number] [place] [address] 05 Mar, 2013 [facility] [place] [facility] [address] [facility] [id number] [place] [address] Feb, [facility] [place] [facility] [address] [facility] [id number] [place] [address] Feb, [facility] [place] [facility] [address] [facility] [id number] [place] [address] Feb, [facility] [place] [facility] [address] [id number] [place] [address] Feb, [facility] [place] [facility] [address] [id number] [place] [address] Jan, [facility] [place] [facility] [address] [facility] [id number] [place] [address] Jan, [facility] [place] [facility] [address] [id number] [place] [address] Jan, [facility] [place] [facility] [address] [id number] [place] [address] Jan, [facility] [place] [facility] [address] [id number] [place] [address] Jan, [facility] [place] [facility] [address] [facility] [id number] [place] [address] Dec, [facility] [place] [facility] [address] [facility] [id number] [place] [address] Dec, [facility] [place] [facility] [address] [facility] [id number] [place] [address] Dec, [facility] [place] [facility] [address] [id number] [place] [address] November, [facility] [place] [facility] [address] [id number] [place] [address] November, [facility] [address] [id number] [place] [address] November, [facility] [place] [facility] [address] [id number] [place] [address] Oct, [facility] [place] [facility] [address] [id number] [place] [address] Oct, [facility] [place] [facility] [address] [id number] [place] [address] Oct, [facility] [place] [facility] [address] [id number] [place] [address] Oct, [facility] [place] [facility] [address] [id number] [place] [address] Oct, [facility] [place] [facility] [address] [id number] [place] [address] Oct, [facility] [place] [facility] [address] [id number] [place] [address] 15 Oct, 2012 [facility] [place] [facility] [address] [id number] [place] [address] Sep, [facility] [place] [facility] [address] [id number] [place] [address] Sep, [facility] [place] [facility] [address] [id number] [place] [address] Sep, [facility] [place] [facility] [address] [id number] [place] [address] Sep, [facility] [place] [facility] [address] [id number] [place] [address] Aug, [facility] [place] [facility] [address] [id number] [place] [address] Aug, [facility] [place] [facility] [address] [id number] [place] [address] Aug, [facility] [place] [facility] [address] [id number] [place] [address] Aug, [facility] [place] [facility] [address] [id number] [place] [address] Aug, [facility] [place] [facility] [address] [id number] [place] [address] Aug, [facility] [place] [facility] [address] [id number] [place] [address] Jul, [facility] [place] [facility] [address] [id number] [place] [address] Jul, [facility] [place] [facility] [address] [id number] [place] [address] Jul, [facility] [place] [facility] [address] [id number] [place] [address] Jul, [facility] [place] [facility] [address] [id number] [place] [address] Jul, [facility] [place] [facility] [address] [id number] [place] [address] Jul, [facility] [place] [facility] [address] [id number] [place] [address] Jun, [facility] [place] [facility] [address] [id number] [place] [address] Jun, [facility] [place] [facility] [address] [id number] [place] [address] Jun, [facility] [place] [facility] [address] [id number] [place] [address] Jun, [facility] [place] [facility] [address] [id number] [place] [address] Jun, [facility] [place] [facility] [address] [id number] [place] [address] Jun, [facility] [place] [facility] [address] [id number] [place] [address] May, [facility] [place] [facility] [address] [id number] [place] [address] May, [facility] [place] [facility] [address] [id number] [place] [address] May, [facility] [place] [facility] [address] [facility] [id number] [place] [address] May, [facility] [place] [facility] [address] [id number] [place] [address] May, [facility] [place] [facility] [address] [id number] [place] [address] May, [facility] [place] [facility] [address] [id number] [place] [address] May, [facility] [place] [facility] [address] [facility] [id number] [place] [address] May, [facility] [place] [facility] [address] [id number] [place] [address] May, [facility] [place] [facility] [address] [id number] [place] [address] May, [facility] [place] [facility] [address] [id number] [place] [address] Apr, [facility] [address] [id number] [place] [address] 31 Apr, 2012 [facility] [address] [id number] [place] [address] Apr, [facility] [address] [id number] [place] [address] Apr, [facility] [address] [id number] [place] [address] 16 Apr, 2012 [facility] [address] [id number] [place] [address] 16 Apr, 2012 [facility] [address] [id number] [place] [address] 15 Apr, 2012 [facility] [address] [id number] [place] [address] 15 Apr, 2012 [facility] [address] [id number] [place] [address] Apr, [facility] [address] [facility] [id number] [facility] [address] 28 Mar, 2012 [facility] [address] [id number] [place] [address] 26 Mar, 2012 [facility] [address] [id number] [place] [address] 25 Mar, 2012 [facility] [address] [id number] [place] [address] 19 Mar, 2012 [facility] [address] [id number] [place] [address] 18 Mar, 2012 [facility] [address] [id number] [place] [address] 05 Mar, 2012 [facility] [address] [id number] [place] [address] Feb, [facility] [address] [id number] [place] [address] Feb, [facility] [address] [id number] [place] [address] Feb, [facility] [address] [id number] [place] [address] Jan, [facility] [address] [id number] [place] [address] Jan, [facility] [address] [id number] [place] [address] Jan, [facility] [address] [id number] [place] [address] Jan, [facility] [address] [id number] [place] [address] Dec, [facility] [address] [id number] [place] [address] November, [facility] [address] [id number] [place] [address] November, [facility] [address] [id number] [place] [address] November, [facility] [address] [id number] [place] [address] November, [facility] [address] [id number] [place] [address] November, [facility] [address] [id number] [place] [address] November, [facility] [address] [id number] [place] [address] Oct, [facility] [address] [id number] [place] [address] Oct, [facility] [address] [id number] [place] [address] Sep, [facility] [address] [id number] [place] [address] Sep, [facility] [address] [id number] [place] [address] Sep, [facility] [address] [id number] [place] [address] Aug, [facility] [address] [id number] [place] [address] Aug, [facility] [address] [id number] [place] [address] Aug, [facility] [address] [id number] [place] [address] Aug, [facility] [address] [id number] [place] [address] Aug, [facility] [address] [id number] [place] [address] Aug, [facility] [address] [id number] [place] [address] Jul, [facility] [address] [id number] [place] [address] Jul, [facility] [address] [id number] [place] [address] 22 Jul, 2011 [facility] [address] [id number] [place] [address] Jul, [facility] [address] [id number] [place] [address] Jul, [facility] [address] [id number] [place] [address] Jul, [facility] [address] [id number] [place] [address] Jul, [facility] [address] [id number] [place] [address] Jul, [facility] [address] [id number] [place] [address] Jul, [facility] [address] [id number] [place] [address] Jul, [facility] [address] [id number] [place] [address] Jun, [facility] [address] [id number] [place] [address] Jun, [facility] [address] [id number] [place] [address] Jun, [facility] [address] [id number] [place] [address] Jun, [facility] [address] [id number] [place], [place] [address] 30 May, 2011 [facility] [id number] [place] [address] 29 May, 2011 [facility] [id number] [place] [address] May, [facility] [id number] [place] [address] 08 May, 2011 [facility] [id number] [place] [address] Apr, [facility] [id number] [place] [address] Apr, [facility] [id number] [place] [address] November, [facility] [id number] [place] [address] Oct, [facility] [id number] [place] [address] 17 Aug, 2010 [facility] [id number] [place] [address] Jun, [facility] [id number] [place] [address] Jun, [facility] [id number] [place] [address] Jun, [facility] [id number] [place] [address] Jun, [facility] [id number] [place] [address] May, [facility] [id number] [place] [address] 27 Apr, 2010 [facility] [id number] [place] [address] Oct, [facility] [id number] [place] [address] 13 Aug, 2009 [facility] [id number] [place] [address] Jul, [facility] [id number] [place] [address] 22 Jun, 2009 [facility] [id number] [place] [address] 16 Jun, 2009 [facility] [id number] [place] [address] 14 Jun, 2009 [facility] [id number] [place] [address] Jun, [facility] [id number] [place] [address] May, [facility] [id number] [place] [address] Apr, [facility] [id number] [place] [address] 15 Mar, 2009 [facility] [id number] [place] [address] 14 Mar, 2009 [facility] [id number] [place] [address] Dec, IMMUNIZATIONS No Known Immunizations SOCIAL HISTORY [...]
--- OUTSIDE RECORDS SUMMARY | 2019-09-01 04:58 | XMS REPORT ---
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 [facility] [place] [facility] [address] [facility] [id number] [place] [address] Dec, [facility] [place] [facility] [address] [facility] [id number] [place] [address] Dec, [facility] [place] [facility] [address] [facility] [id number] [place] [address] Dec, [facility] [place] [facility] [address] [facility] [id number] [place] [address] Dec, [facility] [place] [facility] [address] [facility] [id number] [place] [address] Dec, [facility] [place] [facility] [address] [id number] [place] [address] November, [facility] [place] [facility] [address] [facility] [id number] [place] [address] November, [facility] [place] [facility] [address] [facility] [id number] [place] [address] November, [facility] [place] [facility] [address] [id number] [place] [address] November, [facility] [address] [id number] [place] [address] November, [facility] [address] [facility] [id number] [place] [address] November, [facility] [address] [place] [id number] November, [facility] [address] [facility] [id number] [place] [address] November, [facility] [address] [id number] [place] [address] November, [facility] [address] [facility] [id number] [place] [address] November, [facility] [address] [facility] [id number] [place] [address] November, [facility] [place] [facility] [address] [facility] [id number] [place] [address] November, [facility] [place] [facility] [address] [id number] [place] [address] Oct, [facility] [place] [facility] [address] [facility] [id number] [place] [address] Oct, [facility] [place] [facility] [address] [facility] [id number] [place] [address] Oct, [facility] [place] [facility] [address] [id number] [place] [address] Oct, [facility] [place] [facility] [address] [id number] [place] [address] Oct, [facility] [place] [facility] [address] [id number] [place] [address] Oct, [facility] [place] [facility] [address] [facility] [id number] [place] [address] Oct, [facility] [place] [facility] [address] [facility] [id number] [place] [address] Oct, [facility] [place] [facility] [address] [id number] [place] [address] Oct, [facility] [place] [facility] [address] [facility] [id number] [facility] [place] [address] Oct, [facility] [place] [facility] [address] [facility] [id number] [facility] [place] [address] Oct, [facility] [place] [facility] [address] [facility] [id number] [facility] [place] [address] Oct, [facility] [place] [facility] [address] [facility] [id number] [facility] [place] [address] Oct, [facility] [place] [facility] [address] [facility] [id number] [place] [address] Oct, [facility] [place] [facility] [address] [facility] [id number] [place] [address] Oct, [facility] [place] [facility] [address] [facility] [id number] [place] [address] Sep, [facility] [place] [facility] [address] [facility] [id number] [place] [address] Sep, [facility] [place] [facility] [address] [facility] [id number] [place] [address] Sep, [facility] [place] [facility] [address] [facility] [id number] [place] [address] Sep, [facility] [place] [facility] [address] [facility] [id number] [place] [address] Aug, [facility] [place] [facility] [address] [facility] [id number] [place] [address] Aug, [facility] [place] [facility] [address] [facility] [id number] [place] [address] Aug, [facility] [place] [facility] [address] [facility] [id number] [place] [address] Aug, [facility] [place] [facility] [address] [facility] [id number] [place] [address] Jul, [facility] [place] [facility] [address] [facility] [id number] [facility] [place] [address] Jul, [facility] [place] [facility] [address] [id number] [place] [address] Jul, [facility] [place] [facility] [address] [facility] [id number] [place] [address] Jul, [facility] [place] [facility] [address] [facility] [id number] [place] [address] Jul, [facility] [place] [facility] [address] [facility] [id number] [place] [address] Jul, [facility] [place] [facility] [address] [facility] [id number] [place] [address] Jul, [facility] [place] [facility] [address] [facility] [id number] [place] [address] Jul, [facility] [place] [facility] [address] [id number] [place] [address] Jul, [facility] [place] [facility] [address] [facility] [id number] [place] [address] Jul, [facility] [place] [facility] [address] [facility] [id number] [place] [address] Jul, [facility] [place] [facility] [address] [id number] [place] [address] Jul, [facility] [place] [facility] [address] [id number] [place] [address] Jul, [facility] [place] [facility] [address] [facility] [id number] [place] [address] Jul, [facility] [place] [facility] [address] [facility] [id number] [place] [address] Jun, [facility] [place] [facility] [address] [id number] [place] [address] Jun, [facility] [place] [facility] [address] [facility] [id number] [place] [address] Jun, [facility] [place] [facility] [address] [id number] [place] [address] Jun, [facility] [place] [facility] [address] [id number] [place] [address] May, [facility] [place] [facility] [address] [id number] [place] [address] May, [facility] [place] [facility] [address] [id number] [place] [address] May, [facility] [place] [facility] [address] [id number] [place] [address] May, [facility] [place] [facility] [address] [id number] [place] [address] May, [facility] [place] [facility] [address] [id number] [place] [address] May, [facility] [place] [facility] [address] [id number] [place] [address] May, [facility] [place] [facility] [address] [id number] [place] [address] May, [facility] [place] [facility] [address] [id number] [place] [address] Apr, [facility] [place] [facility] [address] [facility] [id number] [place] [address] Apr, [facility] [place] [facility] [address] [id number] [place] [address] Apr, [facility] [place] [facility] [address] [id number] [place] [address] Apr, [facility] [place] [facility] [address] [id number] [place] [address] Apr, [facility] [place] [facility] [address] [id number] [place] [address] Apr, [facility] [place] [facility] [address] [facility] [id number] [place] [address] 30 Mar, 2013 [facility] [place] [facility] [address] [facility] [id number] [place] [address] 26 Mar, 2013 [facility] [place] [facility] [address] [facility] [id number] [place] [address] 20 Sep, 2013 [facility] [place] [facility] [address] [id number] [facility] [place] [address] 17 Mar, 2013 [facility] [place] [facility] [address] [facility] [id number] [facility] [place] [address] 16 Mar, 2013 [facility] [place] [facility] [address] [facility] [id number] [facility] [place] [address] 05 Mar, 2013 [facility] [place] [facility] [address] [facility] [id number] [place] [address] Feb, [facility] [place] [facility] [address] [facility] [id number] [facility] [place] [address] Feb, [facility] [place] [facility] [address] [facility] [id number] [facility] [place] [address] Feb, [facility] [place] [facility] [address] [facility] [id number] [place] [address] Feb, [facility] [place] [facility] [address] [facility] [id number] [place] [address] Jan, [facility] [place] [facility] [address] [facility] [id number] [place] [address] Jan, [facility] [place] [facility] [address] [facility] [id number] [facility] [place] [address] Jan, [facility] [place] [facility] [address] [facility] [id number] [place] [address] Jan, [facility] [place] [facility] [address] [facility] [id number] [place] [address] Jan, [facility] [place] [facility] [address] [facility] [id number] [place] [address] Dec, [facility] [place] [facility] [address] [facility] [id number] [place] [address] Dec, [facility] [place] [facility] [address] [facility] [id number] [place] [address] Dec, [facility] [place] [facility] [address] [facility] [id number] [facility] [place] [address] November, [facility] [place] [facility] [address] [facility] [id number] [place] [address] November, [facility] [address] [id number] [place] [address] November, [facility] [place] [facility] [address] [facility] [id number] [place] [address] Oct, [facility] [place] [facility] [address] [facility] [id number] [place] [address] Oct, [facility] [place] [facility] [address] [facility] [id number] [place] [address] Oct, [facility] [place] [facility] [address] [facility] [id number] [place] [address] Oct, [facility] [place] [facility] [address] [facility] [id number] [place] [address] Oct, [facility] [place] [facility] [address] [facility] [id number] [place] [address] Oct, [facility] [place] [facility] [address] [facility] [id number] [place] [address] 15 Oct, 2012 [facility] [place] [facility] [address] [facility] [id number] [place] [address] Sep, [facility] [place] [facility] [address] [facility] [id number] [place] [address] Sep, [facility] [place] [facility] [address] [facility] [id number] [place] [address] Sep, [facility] [place] [facility] [address] [facility] [id number] [place] [address] Sep, [facility] [place] [facility] [address] [facility] [id number] [place] [address] Aug, [facility] [place] [facility] [address] [facility] [id number] [place] [address] Aug, [facility] [place] [facility] [address] [facility] [id number] [place] [address] Aug, [facility] [place] [facility] [address] [facility] [id number] [place] [address] Aug, [facility] [place] [facility] [address] [facility] [id number] [place] [address] Aug, [facility] [place] [facility] [address] [facility] [id number] [place] [address] Aug, [facility] [place] [facility] [address] [facility] [id number] [place] [address] Jul, [facility] [place] [facility] [address] [facility] [id number] [place] [address] Jul, [facility] [place] [facility] [address] [facility] [id number] [place] [address] Jul, [facility] [place] [facility] [address] [facility] [id number] [place] [address] Jul, [facility] [place] [facility] [address] [facility] [id number] [place] [address] Jul, [facility] [place] [facility] [address] [facility] [id number] [place] [address] Jul, [facility] [place] [facility] [address] [facility] [id number] [place] [address] Jun, [facility] [place] [facility] [address] [facility] [id number] [place] [address] Jun, [facility] [place] [facility] [address] [facility] [id number] [place] [address] Jun, [facility] [place] [facility] [address] [facility] [id number] [place] [address] Jun, [facility] [place] [facility] [address] [facility] [id number] [place] [address] Jun, [facility] [place] [facility] [address] [facility] [id number] [place] [address] Jun, [facility] [place] [facility] [address] [facility] [id number] [place] [address] May, [facility] [place] [facility] [address] [facility] [id number] [place] [address] May, [facility] [place] [facility] [address] [facility] [id number] [place] [address] May, [facility] [place] [facility] [address] [facility] [id number] [place] [address] May, [facility] [place] [facility] [address] [facility] [id number] [place] [address] May, [facility] [place] [facility] [address] [facility] [id number] [place] [address] May, [facility] [place] [facility] [address] [facility] [id number] [place] [address] May, [facility] [place] [facility] [address] [facility] [id number] [place] [address] May, [facility] [place] [facility] [address] [facility] [id number] [place] [address] May, [facility] [place] [facility] [address] [facility] [id number] [place] [address] May, [facility] [place] [facility] [address] [facility] [id number] [place] [address] Apr, [facility] [place] [facility] [address] [facility] [id number] [place] [address] 31 Apr, 2012 [facility] [place] [facility] [address] [facility] [id number] [place] [address] Apr, [facility] [place] [facility] [address] [facility] [id number] [place] [address] Apr, [facility] [place] [facility] [address] [facility] [id number] [place] [address] 16 Apr, 2012 [facility] [place] [facility] [address] [facility] [id number] [place] [address] 16 Apr, 2012 [facility] [place] [facility] [address] [facility] [id number] [place] [address] 15 Apr, 2012 [facility] [place] [facility] [address] [facility] [id number] [place] [address] 15 Apr, 2012 [facility] [place] [facility] [address] [facility] [id number] [place] [address] Apr, [facility] [place] [facility] [address] [facility] [id number] [facility] [facility] [place] [address] 28 Mar, 2012 [facility] [id number] [place] [address] 26 Mar, 2012 [facility] [address] [facility] [id number] [place] [address] 25 Mar, 2012 [facility] [address] [facility] [id number] [place] [address] 19 Mar, 2012 [facility] [address] [facility] [id number] [place] [address] 18 Mar, 2012 [facility] [address] [facility] [id number] [place] [address] 05 Mar, 2012 [facility] [address] [facility] [id number] [place] [address] Feb, [facility] [address] [facility] [id number] [place] [address] Feb, [facility] [address] [facility] [id number] [place] [address] Feb, [facility] [address] [facility] [id number] [place] [address] Jan, [facility] [address] [facility] [id number] [place] [address] Jan, [facility] [address] [facility] [id number] [place] [address] Jan, [facility] [address] [facility] [id number] [place] [address] Jan, [facility] [address] [facility] [id number] [place] [address] Dec, [facility] [address] [facility] [id number] [place] [address] November, [facility] [address] [facility] [id number] [place] [address] November, [facility] [address] [facility] [id number] [place] [address] November, [facility] [address] [facility] [id number] [place] [address] November, [facility] [address] [facility] [id number] [place] [address] November, [facility] [address] [facility] [id number] [place] [address] November, [facility] [address] [facility] [id number] [place] [address] Oct, [facility] [address] [facility] [id number] [place] [address] Oct, [facility] [address] [facility] [id number] [place] [address] Sep, [facility] [address] [facility] [id number] [place] [address] Sep, [facility] [address] [facility] [id number] [place] [address] Sep, [facility] [address] [facility] [id number] [place] [address] Aug, [facility] [address] [facility] [id number] [place] [address] Aug, [facility] [address] [facility] [id number] [place] [address] Aug, [facility] [address] [facility] [id number] [place] [address] Aug, [facility] [address] [facility] [id number] [place] [address] Aug, [facility] [address] [facility] [id number] [place] [address] Aug, [facility] [address] [facility] [id number] [place] [address] Jul, [facility] [address] [facility] [id number] [place] [address] Jul, [facility] [address] [facility] [id number] [place] [address] 22 Jul, 2011 [facility] [address] [facility] [id number] [place] [address] Jul, [facility] [address] [id number] [place] [address] Jul, [facility] [address] [id number] [place] [address] Jul, [facility] [address] [id number] [place] [address] Jul, [facility] [address] [facility] [id number] [place] [address] Jul, [facility] [address] [id number] [place] [address] Jul, [facility] [address] [id number] [place] [address] Jul, [facility] [address] [id number] [place] [address] Jun, [facility] [address] [facility] [id number] [place] [address] Jun, [facility] [address] [facility] [id number] [place] [address] Jun, [facility] [address] [id number] [place] [address] Jun, [facility] [address] [facility] [id number] [place] [address] 30 May, 2011 [facility] [address] [facility] [id number] [place] [address] 29 May, 2011 [facility] [id number] [place] [address] May, [facility] [address] [id number] [place] [address] 08 May, 2011 [facility] [address] [id number] [place] [address] Apr, [facility] [address] [facility] [id number] [place] [address] Apr, [facility] [address] [facility] [id number] [place] [address] November, [facility] [address] [id number] [place] [address] Oct, [facility] [address] [id number] [place] [address] 17 Aug, 2010 [facility] [address] [id number] [place] [address] Jun, [facility] [address] [id number] [place] [address] Jun, [facility] [address] [id number] [place] [address] Jun, [facility] [address] [id number] [place] [address] Jun, [facility] [address] [id number] [place] [address] May, [facility] [address] [facility] [id number] [place] [address] 27 Apr, 2010 [facility] [address] [facility] [id number] [place] [address] Oct, [facility] [address] [id number] [place] [address] 13 Aug, 2009 [facility] [address] [id number] [place] [address] Jul, [facility] [address] [facility] [id number] [place] [address] 22 Jun, 2009 [facility] [address] [id number] [place] [address] 16 Jun, 2009 [facility] [address] [facility] [id number] [place] [address] 14 Jun, 2009 [facility] [address] [facility] [id number] [place] [address] Jun, [facility] [address] [facility] [id number] [place] [address] May, [facility] [address] [facility] [id number] [place] [address] Apr, [facility] [address] [facility] [id number] [place] [address] 15 Mar, 2009 [facility] [address] [facility] [id number] [place] [address] 14 Mar, 2009 [facility] [address] [facility] [id number] [place] [address] Dec, IMMUNIZATIONS No Known Immunizations SOCIAL HISTORY [...]
--- OUTSIDE RECORDS SUMMARY | 2019-09-01 04:59 | XMS REPORT ---
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 [place] [address] Oct, [facility] [place] [facility] [address] [facility] [id number] [facility] [address] Oct, [facility] [place] [facility] [id number] [facility] [address] Oct, [facility] [place] [facility] [id number] [facility] [address] Oct, [facility] [place] [facility] [address] [facility] [id number] [facility] [address] Oct, [facility] [place] [facility] [id number] [place] [address] Oct, [facility] [place] [facility] [id number] [place] [address] Oct, [facility] [place] [facility] [id number] [place] [address] Sep, [facility] [place] [facility] [id number] [place] [address] Sep, [facility] [place] [facility] [id number] [place] [address] Sep, [facility] [place] [facility] [id number] [place] [address] Sep, [facility] [place] [facility] [id number] [place] [address] Aug, [facility] [place] [facility] [id number] [place] [address] Aug, [facility] [place] [facility] [id number] [place] [address] Aug, [facility] [place] [facility] [id number] [place] [address] Aug, [facility] [place] [facility] [id number] [place] [address] Jul, [facility] [place] [facility] [id number] [facility] [address] Jul, [facility] [place] [facility] [address] [id number] [place] [address] Jul, [facility] [place] [facility] [id number] [place] [address] Jul, [facility] [place] [facility] [id number] [place] [address] Jul, [facility] [place] [facility] [id number] [place] [address] Jul, [facility] [place] [facility] [id number] [place] [address] Jul, [facility] [place] [facility] [id number] [place] [address] Jul, [facility] [place] [facility] [id number] [place] [address] Jul, [facility] [place] [facility] [id number] [place] [address] Jul, [facility] [place] [facility] [id number] [place] [address] Jul, [facility] [place] [facility] [id number] [place] [address] Jul, [facility] [place] [facility] [id number] [place] [address] Jul, [facility] [place] [facility] [id number] [place] [address] Jul, [facility] [place] [facility] [id number] [place] [address] Jun, [facility] [place] [facility] [address] [id number] [place] [address] Jun, [facility] [place] [facility] [id number] [place] [address] Jun, [facility] [place] [facility] [id number] [place] [address] Jun, [facility] [place] [facility] [id number] [place] [address] May, [facility] [place] [facility] [id number] [place] [address] May, [facility] [place] [facility] [id number] [place] [address] May, [facility] [place] [facility] [id number] [place] [address] May, [facility] [place] [facility] [id number] [place] [address] May, [facility] [place] [facility] [id number] [place] [address] May, [facility] [place] [facility] [id number] [place] [address] May, [facility] [place] [facility] [id number] [place] [address] May, [facility] [place] [facility] [id number] [place] [address] Apr, [facility] [place] [facility] [id number] [place] [address] Apr, [facility] [place] [facility] [id number] [place] [address] Apr, [facility] [place] [facility] [id number] [place] [address] Apr, [facility] [place] [facility] [id number] [place] [address] Apr, [facility] [place] [facility] [id number] [place] [address] Apr, [facility] [place] [facility] [id number] [place] [address] 30 Mar, 2013 [facility] [place] [facility] [id number] [place] [address] 26 Mar, 2013 [facility] [place] [facility] [id number] [place] [address] 20 Sep, 2013 [facility] [place] [facility] [address] [id number] [facility] [address] 17 Mar, 2013 [facility] [place] [facility] [address] [facility] [id number] [facility] [address] 16 Mar, 2013 [facility] [place] [facility] [address] [facility] [id number] [facility] [address] 05 Mar, 2013 [facility] [place] [facility] [address] [facility] [id number] [place] [address] Feb, [facility] [place] [facility] [address] [facility] [id number] [facility] [address] Feb, [facility] [place] [facility] [address] [facility] [id number] [facility] [address] Feb, [facility] [place] [facility] [id number] [place] [address] Feb, [facility] [place] [facility] [id number] [place] [address] Jan, [facility] [place] [facility] [address] [facility] [id number] [place] [address] Jan, [facility] [place] [facility] [id number] [facility] [address] Jan, [facility] [place] [facility] [id number] [place] [address] Jan, [facility] [place] [facility] [id number] [place] [address] Jan, [facility] [place] [facility] [address] [facility] [id number] [place] [address] Dec, [facility] [place] [facility] [address] [facility] [id number] [place] [address] Dec, [facility] [place] [facility] [address] [facility] [id number] [place] [address] Dec, [facility] [place] [facility] [id number] [facility] [address] November, [facility] [place] [facility] [id number] [place] [address] November, [facility] [address] [id number] [place] [address] November, [facility] [place] [facility] [id number] [place] [address] Oct, [facility] [place] [facility] [id number] [place] [address] Oct, [facility] [place] [facility] [id number] [place] [address] Oct, [facility] [place] [facility] [id number] [place] [address] Oct, [facility] [place] [facility] [id number] [place] [address] Oct, [facility] [place] [facility] [id number] [place] [address] Oct, [facility] [place] [facility] [id number] [place] [address] 15 Oct, 2012 [facility] [place] [facility] [id number] [place] [address] Sep, [facility] [place] [facility] [id number] [place] [address] Sep, [facility] [place] [facility] [id number] [place] [address] Sep, [facility] [place] [facility] [id number] [place] [address] Sep, [facility] [place] [facility] [id number] [place] [address] Aug, [facility] [place] [facility] [id number] [place] [address] Aug, [facility] [place] [facility] [id number] [place] [address] Aug, [facility] [place] [facility] [id number] [place] [address] Aug, [facility] [place] [facility] [id number] [place] [address] Aug, [facility] [place] [facility] [id number] [place] [address] Aug, [facility] [place] [facility] [id number] [place] [address] Jul, [facility] [place] [facility] [id number] [place] [address] Jul, [facility] [place] [facility] [id number] [place] [address] Jul, [facility] [place] [facility] [id number] [place] [address] Jul, [facility] [place] [facility] [id number] [place] [address] Jul, [facility] [place] [facility] [id number] [place] [address] Jul, [facility] [place] [facility] [id number] [place] [address] Jun, [facility] [place] [facility] [id number] [place] [address] Jun, [facility] [place] [facility] [id number] [place] [address] Jun, [facility] [place] [facility] [id number] [place] [address] Jun, [facility] [place] [facility] [id number] [place] [address] Jun, [facility] [place] [facility] [id number] [place] [address] Jun, [facility] [place] [facility] [id number] [place] [address] May, [facility] [place] [facility] [id number] [place] [address] May, [facility] [place] [facility] [id number] [place] [address] May, [facility] [place] [facility] [address] [facility] [id number] [place] [address] May, [facility] [id number] [place] [address] May, [facility] [id number] [place] [address] May, [facility] [id number] [place] [address] May, [facility] [address] [facility] [id number] [place] [address] May, [facility] [id number] [place] [address] May, [facility] [id number] [place] [address] May, [facility] [id number] [place] [address] Apr, [facility] [id number] [place] [address] 31 Apr, 2012 [facility] [id number] [place] [address] Apr, [facility] [id number] [place] [address] Apr, [facility] [id number] [place] [address] 16 Apr, 2012 [facility] [id number] [place] [address] 16 Apr, 2012 [facility] [id number] [place] [address] 15 Apr, 2012 [facility] [id number] [place] [address] 15 Apr, 2012 [facility] [id number] [place] [address] Apr, [facility] [address] [facility] [id number] [facility] [address] 28 Mar, 2012 [facility] [address] [id number] [place] [address] 26 Mar, 2012 [facility] [id number] [place] [address] 25 Mar, 2012 [facility] [id number] [place] [address] 19 Mar, 2012 [facility] [id number] [place] [address] 18 Mar, 2012 [facility] [id number] [place] [address] 05 Mar, 2012 [facility] [id number] [place] [address] Feb, [facility] [id number] [place] [address] Feb, [facility] [id number] [place] [address] Feb, [facility] [id number] [place] [address] Jan, [facility] [id number] [place] [address] Jan, [facility] [id number] [place] [address] Jan, [facility] [id number] [place] [address] Jan, [facility] [id number] [place] [address] Dec, [facility] [id number] [place] [address] November, [facility] [id number] [place] [address] November, [facility] [id number] [place] [address] November, [facility] [id number] [place] [address] November, [facility] [id number] [place] [address] November, [facility] [id number] [place] [address] November, [facility] [id number] [place] [address] Oct, [facility] [id number] [place] [address] Oct, [facility] [id number] [place] [address] Sep, [facility] [id number] [place] [address] Sep, [facility] [id number] [place] [address] Sep, [facility] [id number] [place] [address] Aug, [facility] [id number] [place] [address] Aug, [facility] [id number] [place] [address] Aug, [facility] [id number] [place] [address] Aug, [facility] [id number] [place] [address] Aug, [facility] [id number] [place] [address] Aug, [facility] [id number] [place] [address] Jul, [facility] [id number] [place] [address] Jul, [facility] [id number] [place] [address] 22 Jul, 2011 [facility] [id number] [place] [address] Jul, [facility] [id number] [place] [address] Jul, [facility] [id number] [place] [address] Jul, [facility] [id number] [place] [address] Jul, [facility] [id number] [place] [address] Jul, [facility] [id number] [place] [address] Jul, [facility] [id number] [place] [address] Jul, [facility] [id number] [place] [address] Jun, [facility] [id number] [place] [address] Jun, [facility] [id number] [place] [address] Jun, [facility] [id number] [place] [address] Jun, [facility] [id number] [place] [address] 30 May, 2011 [facility] [id number] [place] [address] 29 May, 2011 [facility] [id number] [place] [address] May, [facility] [id number] [place] [address] 08 May, 2011 [facility] [id number] [place] [address] Apr, [facility] [id number] [place] [address] Apr, [facility] [id number] [place] [address] November, [facility] [id number] [place] [address] Oct, [facility] [id number] [place] [address] 17 Aug, 2010 [facility] [id number] [place] [address] Jun, [facility] [id number] [place] [address] Jun, [facility] [id number] [place] [address] Jun, [facility] [id number] [place] [address] Jun, [facility] [id number] [place] [address] May, [facility] [id number] [place] [address] 27 Apr, 2010 [facility] [id number] [place] [address] Oct, [facility] [id number] [place] [address] 13 Aug, 2009 [facility] [id number] [place] [address] Jul, [facility] [id number] [place] [address] 22 Jun, 2009 [facility] [id number] [place] [address] 16 Jun, 2009 [facility] [id number] [place] [address] 14 Jun, 2009 [facility] [id number] [place] [address] Jun, [facility] [id number] [place] [address] May, [facility] [id number] [place] [address] Apr, [facility] [id number] [place] [address] 15 Mar, 2009 [facility] [id number] [place] [address] 14 Mar, 2009 [facility] [id number] [place] [address] Dec, IMMUNIZATIONS No Known Immunizations SOCIAL HISTORY Never Assessed REASON FOR VISIT PLAN OF CARE VITAL SIGNS Weight 183.5 lbs 2013-10-11 Temperature 98 degrees Fahrenheit 2013-10-11 Heart Rate 76 bpm 2013-10-11 Respiratory Rate 28 2013-10-11 Blood pressure systolic 124 mmHg 2013-10-11 Blood pressure diastolic 80 mmHg 2013-10-11 MEDICATIONS Unknown Medications RESULTS No Results PROCEDURES Procedure Date Ordered Result Body Site PSYTX PT&/FAMILY 30 MINUTES October 11, 2013 INSTRUCTIONS MEDICATIONS ADMINISTERED No Known Medications [...]
--- OUTSIDE RECORDS SUMMARY | 2019-09-01 04:59 | XMS REPORT ---
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 [facility] [address] [id number] [place] [address] Sep, [facility] [address] [id number] [place] [address] Sep, [facility] [address] [id number] [place] [address] Sep, [facility] [address] [id number] [place] [address] Aug, [facility] [address] [id number] [place] [address] Aug, [facility] [address] [id number] [place] [address] Aug, [facility] [address] [id number] [place] [address] Aug, [facility] [address] [id number] [place] [address] Jul, [facility] [address] [facility] [id number] [place] [address] Jul, [facility] [address] [id number] [place] [address] Jul, [facility] [address] [id number] [place] [address] Jul, [facility] [address] [id number] [place] [address] Jul, [facility] [address] [id number] [place] [address] Jul, [facility] [address] [id number] [place] [address] Jul, [facility] [address] [id number] [place] [address] Jul, [facility] [address] [id number] [place] [address] Jul, [facility] [address] [id number] [place] [address] Jul, [facility] [address] [id number] [place] [address] Jul, [facility] [address] [id number] [place] [address] Jul, [facility] [address] [id number] [place] [address] Jul, [facility] [address] [id number] [place] [address] Jul, [facility] [address] [id number] [place] [address] Jun, [facility] [address] [id number] [place] [address] Jun, [facility] [address] [id number] [place] [address] Jun, [facility] [address] [id number] [place] [address] Jun, [facility] [address] [id number] [place] [address] May, [facility] [address] [id number] [place] [address] May, [facility] [address] [id number] [place] [address] May, [facility] [address] [id number] [place] [address] May, [facility] [address] [id number] [place] [address] May, [facility] [address] [id number] [place] [address] May, [facility] [address] [id number] [place] [address] May, [facility] [address] [id number] [place] [address] May, [facility] [address] [id number] [place] [address] Apr, [facility] [address] [id number] [place] [address] Apr, [facility] [address] [id number] [place] [address] Apr, [facility] [address] [id number] [place] [address] Apr, [facility] [address] [id number] [place] [address] Apr, [facility] [address] [id number] [place] [address] Apr, [facility] [address] [id number] [place] [address] Mar, [facility] [address] [id number] [place] [address] 26 Mar, 2013 [facility] [address] [id number] [facility] [place] [address] 20 Mar, 2013 [facility] [address] [facility] [id number] [facility] [place] [address] 17 Mar, 2013 [facility] [address] [id number] [place] [address] 16 Mar, 2013 [facility] [address] [facility] [id number] [facility] [place] [address] 05 Mar, 2013 [facility] [address] [facility] [id number] [facility] [place] [address] Feb, [facility] [address] [id number] [place] [address] Feb, [facility] [address] [id number] [place] [address] Feb, [facility] [address] [id number] [place] [address] Feb, [facility] [address] [facility] [id number] [place] [address] Jan, [facility] [address] [id number] [place] [address] Jan, [facility] [address] [id number] [place] [address] Jan, [facility] [address] [id number] [place] [address] Jan, [facility] [address] [facility] [id number] [place] [address] Jan, [facility] [address] [id number] [place] [address] Dec, [facility] [address] [id number] [place] [address] Dec, [facility] [address] [id number] [place] [address] Dec, [facility] [address] [id number] [place] [address] November, [facility] [address] [id number] [place] [address] November, [facility] [address] [id number] [place] [address] November, [facility] [address] [id number] [place] [address] Oct, [facility] [address] [id number] [place] [address] Oct, [facility] [address] [id number] [place] [address] Oct, [facility] [address] [id number] [place] [address] Oct, [facility] [address] [id number] [place] [address] Oct, [facility] [address] [id number] [place] [address] Oct, [facility] [address] [id number] [place] [address] Oct, [facility] [address] [id number] [place] [address] Sep, [facility] [address] [id number] [place] [address] Sep, [facility] [address] [id number] [place] [address] Sep, [facility] [address] [id number] [place] [address] Sep, [facility] [address] [id number] [place] [address] Aug, [facility] [address] [id number] [place] [address] Aug, [facility] [address] [id number] [place] [address] Aug, [facility] [address] [id number] [place] [address] Aug, [facility] [address] [id number] [place] [address] Aug, [facility] [address] [id number] [place] [address] Aug, [facility] [address] [id number] [place] [address] Jul, [facility] [address] [id number] [place] [address] Jul, [facility] [address] [id number] [place] [address] Jul, [facility] [address] [id number] [place] [address] Jul, [facility] [address] [id number] [place] [address] Jul, [facility] [address] [id number] [place] [address] Jul, [facility] [address] [id number] [place] [address] Jun, [facility] [address] [id number] [place] [address] Jun, [facility] [address] [id number] [place] [address] Jun, [facility] [address] [id number] [place] [address] Jun, [facility] [address] [id number] [place] [address] Jun, [facility] [address] [id number] [place] [address] Jun, [facility] [address] [id number] [place] [address] May, [facility] [address] [id number] [place] [address] May, [facility] [address] [id number] [place] [address] May, [facility] [address] [id number] [place] [address] May, [facility] [address] [id number] [place] [address] May, [facility] [address] [id number] [place] [address] May, [facility] [address] [id number] [place] [address] May, [facility] [address] [id number] [place] [address] May, [facility] [address] [id number] [place] [address] May, [facility] [address] [id number] [place] [address] May, [facility] [address] [id number] [place] [address] Apr, [facility] [address] [id number] [place] [address] 31 Apr, 2012 [facility] [address] [id number] [place] [address] Apr, [facility] [address] [id number] [place] [address] 23 Apr, 2012 [facility] [address] [id number] [place] [address] 16 Apr, 2012 [facility] [address] [id number] [place] [address] 16 Apr, 2012 [facility] [address] [id number] [place] [address] 15 Apr, 2012 [facility] [address] [id number] [place] [address] 15 Apr, 2012 [facility] [id number] [place] [address] 05 Apr, 2012 [facility] [address] [id number] [place] [address] 28 Mar, 2012 [facility] [address] [id number] [place] [address] 26 Mar, 2012 [facility] [address] [id number] [place] [address] 25 Mar, 2012 [facility] [address] [id number] [place] [address] 19 Mar, 2012 [facility] [address] [id number] [place] [address] 18 Mar, 2012 [facility] [address] [id number] [place] [address] Mar, [facility] [address] [id number] [place] [address] Feb, [facility] [address] [id number] [place] [address] Feb, [facility] [address] [id number] [place] [address] Feb, [facility] [address] [id number] [place] [address] Jan, [facility] [address] [id number] [place] [address] Jan, [facility] [address] [id number] [place] [address] Jan, [facility] [address] [id number] [place] [address] Jan, [facility] [address] [id number] [place] [address] Dec, [facility] [address] [id number] [place] [address] November, [facility] [address] [id number] [place] [address] November, [facility] [address] [id number] [facility] [place] [address] November, [facility] [address] [id number] [facility] [place] [address] November, [facility] [address] [id number] [place] [address] November, [facility] [address] [id number] [facility] [place] [address] November, [facility] [address] [id number] [facility] [place] [address] Oct, [facility] [address] [id number] [place] [address] Oct, [facility] [address] [id number] [place] [address] Sep, [facility] [address] [id number] [place] [address] Sep, [facility] [address] [id number] [place] [address] Sep, [facility] [address] [id number] [place] [address] Aug, [facility] [facility] [address] [id number] [place] [address] Aug, [facility] [address] [id number] [place] [address] Aug, [facility] [address] [id number] [place] [address] Aug, [facility] [address] [id number] [place] [address] Aug, [facility] [address] [id number] [place] [address] Aug, [facility] [address] [id number] [place] [address] Jul, [facility] [address] [id number] [place] [address] 24 Jul, 2011 [facility] [address] [id number] [place] [address] Jul, [facility] [address] [id number] [place] [address] Jul, [facility] [address] [id number] [place] [address] Jul, [facility] [address] [id number] [place] [address] Jul, [facility] [address] [id number] [place] [address] Jul, [facility] [address] [id number] [place] [address] Jul, [facility] [address] [id number] [place] [address] Jul, [facility] [address] [id number] [place] [address] Jul, [facility] [address] [id number] [place] [address] Jun, [facility] [address] [id number] [place] [address] Jun, [facility] [address] [id number] [place] [address] Jun, [facility] [address] [id number] [place] [address] Jun, [facility] [address] [id number] [place] [address] 30 May, 2011 [facility] [address] [id number] [place] [address] 29 May, 2011 [facility] [address] [id number] [place] [address] May, [facility] [address] [id number] [place] [address] 08 May, 2011 [facility] [address] [id number] [place] [address] 31 Apr, 2011 [facility] [address] [id number] [place] [address] 31 Apr, 2011 [facility] [address] [id number] [place] [address] 10 Nov, 2010 [facility] [address] [id number] [place] [address] 18 Oct, 2010 [facility] [address] [id number] [place] [address] 17 Aug, 2010 [facility] [id number] [place] [address] 28 Jun, 2010 [facility] [address] [id number] [place] [address] 28 Jun, 2010 [facility] [id number] [place] [address] 27 Jun, 2010 [facility] [address] [id number] [place] [address] Jun, [facility] [id number] [place] [address] 29 May, 2010 [facility] [address] [id number] [place] [address] 27 Apr, 2010 [facility] [id number] [place] [address] 13 Oct, 2009 [facility] [address] [id number] [place] [address] 13 Aug, 2009 [facility] [address] [id number] [place] [address] Jul, [facility] [address] [id number] [place] [address] 22 Jun, 2009 [facility] [address] [id number] [place] [address] 16 Jun, 2009 [facility] [address] [id number] [place] [address] 14 Jun, 2009 [facility] [address] [id number] [place] [address] Jun, [facility] [address] [id number] [place] [address] May, [facility] [address] [id number] [place] [address] Apr, [facility] [address] [id number] [place] [address] 15 Mar, 2009 [facility] [address] [id number] [place] [address] 14 Mar, 2009 [facility] [address] [id number] [place] [address] Dec, IMMUNIZATIONS No Known Immunizations SOCIAL HISTORY Never Assessed REASON FOR VISIT PLAN OF CARE VITAL SIGNS Height 67 in 2013-10-13 Weight 186.3 lbs 2013-10-13 Temperature 97.6 degrees Fahrenheit 2013-10-13 Heart Rate 76 bpm 2013-10-13 Respiratory Rate 20 2013-10-13 Blood pressure systolic 126 mmHg 2013-10-13 Blood pressure diastolic 78 mmHg 2013-10-13 MEDICATIONS Unknown Medications RESULTS No Results PROCEDURES [...]
--- OUTSIDE RECORDS SUMMARY | 2019-09-01 05:00 | XMS REPORT ---
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 [place] [address] Oct, [facility] [address] [id number] [place] [address] Oct, [facility] [address] [id number] [place] [address] Oct, [facility] [address] [id number] [place] [address] Oct, [facility] [address] [id number] [place] [address] Oct, [facility] [address] [id number] [place] [address] Oct, [facility] [address] [id number] [place] [address] Oct, [facility] [address] [id number] [place] [address] Oct, [facility] [address] [id number] [place] [address] Oct, [facility] [address] [id number] [place] [address] Oct, [facility] [address] [facility] [id number] [place] [address] Oct, [facility] [address] [id number] [place] [address] Oct, [facility] [address] [id number] [place] [address] Oct, [facility] [address] [id number] [place] [address] Sep, [facility] [address] [id number] [place] [address] Sep, [facility] [address] [id number] [place] [address] Sep, [facility] [address] [id number] [place] [address] Sep, [facility] [address] [id number] [place] [address] Aug, [facility] [address] [id number] [place] [address] Aug, [facility] [address] [id number] [place] [address] Aug, [facility] [address] [id number] [place] [address] Aug, [facility] [address] [id number] [place] [address] Jul, [facility] [address] [id number] [place] [address] Jul, [facility] [address] [facility] [id number] [place] [address] Jul, [facility] [address] [id number] [place] [address] Jul, [facility] [address] [id number] [place] [address] Jul, [facility] [address] [id number] [place] [address] Jul, [facility] [address] [id number] [place] [address] Jul, [facility] [address] [id number] [place] [address] Jul, [facility] [address] [id number] [place] [address] Jul, [facility] [address] [id number] [place] [address] Jul, [facility] [address] [id number] [place] [address] Jul, [facility] [place] [facility] [address] [id number] [place] [address] Jul, [facility] [place] [facility] [address] [id number] [place] [address] Jul, [facility] [place] [facility] [address] [id number] [place] [address] Jul, [facility] [place] [facility] [address] [id number] [place] [address] Jun, [facility] [place] [facility] [address] [id number] [place] [address] Jun, [facility] [place] [facility] [address] [id number] [place] [address] Jun, [facility] [place] [facility] [address] [id number] [place] [address] Jun, [facility] [place] [facility] [address] [id number] [place] [address] May, [facility] [place] [facility] [address] [id number] [place] [address] May, [facility] [place] [facility] [address] [id number] [place] [address] May, [facility] [place] [facility] [address] [id number] [place] [address] May, [facility] [place] [facility] [address] [id number] [place] [address] May, [facility] [place] [facility] [address] [id number] [place] [address] May, [facility] [place] [facility] [address] [id number] [place] [address] May, [facility] [place] [facility] [address] [id number] [place] [address] May, [facility] [place] [facility] [address] [id number] [place] [address] Apr, [facility] [place] [facility] [address] [id number] [place] [address] Apr, [facility] [place] [facility] [address] [id number] [place] [address] Apr, [facility] [place] [facility] [address] [id number] [place] [address] Apr, [facility] [place] [facility] [address] [id number] [place] [address] Apr, [facility] [place] [facility] [address] [id number] [place] [address] Apr, [facility] [place] [facility] [address] [id number] [place] [address] 30 Mar, 2013 [facility] [place] [facility] [address] [id number] [place] [address] 26 Mar, 2013 [facility] [place] [facility] [address] [id number] [place] [address] 20 Mar, 2013 [facility] [place] [facility] [address] [id number] [facility] [place] [facility] [address] 17 Mar, 2013 [facility] [place] [facility] [address] [facility] [id number] [facility] [place] [facility] [address] 16 Mar, 2013 [facility] [place] [facility] [address] [id number] [facility] [place] [facility] [address] Mar, [facility] [place] [facility] [address] [facility] [id number] [place] [address] Feb, [facility] [place] [facility] [address] [facility] [id number] [place] [address] Feb, [facility] [place] [facility] [address] [id number] [facility] [place] [facility] [address] Feb, [facility] [place] [facility] [address] [id number] [place] [address] Feb, [facility] [place] [facility] [address] [id number] [facility] [place] [facility] [address] Jan, [facility] [place] [facility] [address] [facility] [id number] [facility] [facility] [address] Jan, [facility] [place] [facility] [address] [id number] [facility] [place] [facility] [address] Jan, [facility] [place] [facility] [address] [id number] [place] [address] Jan, [facility] [place] [facility] [address] [id number] [place] [address] Jan, [facility] [place] [facility] [address] [facility] [id number] [facility] [place] [facility] [address] Dec, [facility] [place] [facility] [address] [id number] [place] [address] Dec, [facility] [place] [facility] [address] [id number] [place] [address] Dec, [facility] [place] [facility] [address] [id number] [facility] [place] [facility] [address] November, [facility] [place] [facility] [address] [id number] [place] [address] November, [facility] [address] [facility] [id number] [facility] [place] [facility] [address] November, [facility] [place] [facility] [address] [id number] [place] [address] Oct, [facility] [place] [facility] [address] [id number] [place] [address] Oct, [facility] [place] [facility] [address] [id number] [place] [address] Oct, [facility] [place] [facility] [address] [id number] [place] [address] Oct, [facility] [place] [facility] [address] [id number] [place] [address] Oct, [facility] [address] [id number] [place] [address] Oct, [facility] [address] [id number] [place] [address] 15 Oct, 2012 [facility] [address] [id number] [place] [address] Sep, [facility] [address] [id number] [place] [address] Sep, [facility] [address] [id number] [place] [address] Sep, [facility] [address] [id number] [place] [address] Sep, [facility] [address] [id number] [place] [address] Aug, [facility] [address] [id number] [place] [address] Aug, [facility] [address] [id number] [place] [address] Aug, [facility] [address] [id number] [place] [address] Aug, [facility] [address] [id number] [place] [address] Aug, [facility] [address] [id number] [place] [address] Aug, [facility] [address] [id number] [place] [address] Jul, [facility] [address] [id number] [place] [address] Jul, [facility] [address] [id number] [place] [address] Jul, [facility] [address] [id number] [place] [address] Jul, [facility] [address] [id number] [place] [address] Jul, [facility] [address] [id number] [place] [address] Jul, [facility] [address] [id number] [place] [address] Jun, [facility] [address] [id number] [place] [address] Jun, [facility] [address] [id number] [place] [address] Jun, [facility] [address] [id number] [place] [address] Jun, [facility] [address] [id number] [place] [address] Jun, [facility] [address] [id number] [place] [address] Jun, [facility] [address] [id number] [place] [address] May, [facility] [address] [id number] [place] [address] May, [facility] [address] [id number] [place] [address] May, [facility] [address] [id number] [place] [address] May, [facility] [address] [id number] [place] [address] May, [facility] [address] [id number] [place] [address] May, [facility] [address] [id number] [place] [address] May, [facility] [address] [id number] [place] [address] May, [facility] [address] [id number] [place] [address] May, [facility] [address] [id number] [place] [address] May, [facility] [address] [id number] [place] [address] Apr, [facility] [address] [id number] [place] [address] 31 Apr, 2012 [facility] [address] [id number] [place] [address] Apr, [facility] [address] [id number] [place] [address] Apr, [facility] [address] [id number] [place] [address] 16 Apr, 2012 [facility] [address] [id number] [place] [address] 16 Apr, 2012 [facility] [address] [id number] [place] [address] 15 Apr, 2012 [facility] [address] [id number] [place] [address] 15 Apr, 2012 [facility] [address] [id number] [place] [address] Apr, [facility] [address] [id number] [facility] [place] [facility] [place] [address] 28 Mar, 2011 [facility] [address] [id number] [place] [address] 26 Mar, 2012 [facility] [address] [id number] [place] [address] 25 Mar, 2012 [facility] [address] [id number] [place] [address] 19 Mar, 2012 [facility] [address] [id number] [place] [address] 18 Mar, 2012 [facility] [address] [id number] [place] [address] 05 Mar, 2012 [facility] [address] [id number] [place] [address] Feb, [facility] [address] [id number] [place] [address] Feb, [facility] [address] [id number] [place] [address] Feb, [facility] [address] [id number] [place] [address] Jan, [facility] [address] [id number] [place] [address] Jan, [facility] [address] [id number] [place] [address] Jan, [facility] [address] [id number] [place] [address] Jan, [facility] [address] [id number] [place] [address] Dec, [facility] [address] [id number] [place] [address] November, [facility] [address] [id number] [place] [address] November, [facility] [address] [id number] [place] [address] November, [facility] [address] [id number] [place] [address] November, [facility] [address] [id number] [place] [address] November, [facility] [address] [id number] [place] [address] November, [facility] [address] [id number] [place] [address] Oct, [facility] [address] [id number] [place] [address] Oct, [facility] [address] [id number] [place] [address] Sep, [facility] [address] [id number] [place] [address] Sep, [facility] [address] [id number] [place] [address] Sep, [facility] [address] [id number] [place] [address] Aug, [facility] [address] [id number] [place] [address] Aug, [facility] [address] [id number] [place] [address] Aug[facility] [address] [id number] [place] [address] Aug, [facility] [address] [id number] [place] [address] Aug, [facility] [address] [id number] [place] [address] Aug, [facility] [address] [id number] [place] [address] Jul, [facility] [address] [id number] [place] [address] Jul, [facility] [address] [id number] [place] [address] Jul, [facility] [address] [id number] [place] [address] Jul, [facility] [address] [id number] [place] [address] Jul, [facility] [address] [id number] [place] [address] Jul, [facility] [address] [id number] [place] [address] Jul, [facility] [address] [id number] [place] [address] Jul, [facility] [address] [id number] [place] [address] Jul, [facility] [address] [id number] [place] [address] Jul, [facility] [address] [id number] [place] [address] Jun, [facility] [address] [id number] [place] [address] Jun, [facility] [address] [id number] [place] [address] Jun, [facility] [address] [id number] [place] [address] Jun, [facility] [address] [id number] [place] [address] 30 May, 2011 [facility] [address] [id number] [place] [address] 29 May, 2011 [facility] [id number] [place] [address] May, [facility] [address] [id number] [place] [address] 08 May, 2011 [facility] [address] [id number] [place] [address] 31 Apr, 2011 [facility] [address] [id number] [place] [address] 31 Apr, 2011 [facility] [address] [id number] [place] [address] 10 Nov, 2010 [facility] [address] [id number] [place] [address] 18 Oct, 2010 [facility] [address] [id number] [place] [address] 17 Aug, 2010 [facility] [address] [id number] [place] [address] 28 Jun, 2010 [facility] [address] [id number] [place] [address] 28 Jun, 2010 [facility] [address] [id number] [place] [address] Jun, [facility] [address] [id number] [place] [address] Jun, [facility] [address] [id number] [place] [address] May, [facility] [address] [id number] [place] [address] 27 Apr, 2010 [facility] [address] [id number] [place] [address] 13 Oct, 2009 [facility] [address] [id number] [place] [address] 13 Aug, 2009 [facility] [address] [id number] [place] [address] Jul, [facility] [address] [id number] [place] [address] 22 Jun, 2009 [facility] [address] [id number] [place] [address] 16 Jun, 2009 [facility] [address] [id number] [place] [address] 14 Jun, 2009 [facility] [address] [id number] [place] [address] Jun, [facility] [place] [address] [id number] [place] [address] May, [facility] [place] [address] [id number] [place] [address] Apr, [facility] [place] [address] [id number] [place] [address] 15 Mar, 2009 [facility] [place] [address] [id number] [place] [address] 14 Mar, 2009 [facility] [place] [address] [id number] [place] [address] Dec, IMMUNIZATIONS No Known Immunizations SOCIAL HISTORY [...]
--- OUTSIDE RECORDS SUMMARY | 2019-09-01 05:00 | XMS REPORT ---
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 [place] [address] Oct, [facility] [place] [facility] [address] [id number] [place] [address] Oct, [facility] [place] [facility] [id number] [place] [address] Oct, [facility] [place] [facility] [id number] [place] [address] Oct, [facility] [place] [facility] [id number] [place] [address] Oct, [facility] [place] [facility] [id number] [place] [address] Oct, [facility] [place] [facility] [id number] [place] [address] Oct, [facility] [place] [facility] [id number] [place] [address] Oct, [facility] [place] [facility] [id number] [place] [address] Oct, [facility] [place] [facility] [id number] [place] [address] Oct, [facility] [place] [facility] [id number] [place] [address] Oct, [facility] [place] [facility] [id number] [place] [address] Oct, [facility] [place] [facility] [id number] [place] [address] Sep, [facility] [place] [facility] [id number] [place] [address] Sep, [facility] [place] [facility] [id number] [place] [address] Sep, [facility] [place] [facility] [id number] [place] [address] Sep, [facility] [place] [facility] [id number] [place] [address] Aug, [facility] [place] [facility] [id number] [place] [address] Aug, [facility] [place] [facility] [id number] [place] [address] Aug, [facility] [place] [facility] [id number] [place] [address] Aug, [facility] [place] [facility] [id number] [place] [address] Jul, [facility] [place] [facility] [address] [facility] [id number] [place] [address] Jul, [facility] [place] [facility] [address] [id number] [place] [address] Jul, [facility] [place] [facility] [id number] [place] [address] Jul, [facility] [place] [facility] [id number] [place] [address] Jul, [facility] [place] [facility] [id number] [place] [address] Jul, [facility] [place] [facility] [id number] [place] [address] Jul, [facility] [place] [facility] [id number] [place] [address] Jul, [facility] [place] [facility] [id number] [place] [address] Jul, [facility] [place] [facility] [id number] [place] [address] Jul, [facility] [place] [facility] [id number] [place] [address] Jul, [facility] [place] [facility] [id number] [place] [address] Jul, [facility] [place] [facility] [id number] [place] [address] Jul, [facility] [place] [facility] [id number] [place] [address] Jul, [facility] [place] [facility] [id number] [place] [address] Jun, [facility] [place] [facility] [id number] [place] [address] Jun, [facility] [place] [facility] [id number] [place] [address] Jun, [facility] [place] [facility] [id number] [place] [address] Jun, [facility] [place] [facility] [id number] [place] [address] May, [facility] [place] [facility] [id number] [place] [address] May, [facility] [place] [facility] [id number] [place] [address] May, [facility] [place] [facility] [address] [id number] [place] [address] May, [facility] [place] [facility] [address] [facility] [id number] [place] [address] May, [facility] [place] [facility] [id number] [place] [address] May, [facility] [place] [facility] [id number] [place] [address] May, [facility] [place] [facility] [address] [facility] [id number] [place] [address] May, [facility] [place] [facility] [id number] [place] [address] Apr, [facility] [place] [facility] [id number] [place] [address] Apr, [facility] [place] [facility] [id number] [place] [address] Apr, [facility] [place] [facility] [id number] [place] [address] Apr, [facility] [place] [facility] [id number] [place] [address] Apr, [facility] [place] [facility] [id number] [place] [address] Apr, [facility] [place] [facility] [address] [facility] [id number] [place] [address] 30 Mar, 2013 [facility] [place] [facility] [id number] [place] [address] 26 Mar, 2013 [facility] [place] [facility] [address] [id number] [place] [address] 20 Mar, 2012 [facility] [place] [facility] [address] [facility] [id number] [place] [address] 17 Mar, 2013 [facility] [place] [facility] [address] [facility] [id number] [place] [address] 16 Mar, 2013 [facility] [place] [facility] [address] [facility] [id number] [place] [address] 05 Mar, 2013 [facility] [place] [facility] [address] [facility] [id number] [place] [address] Feb, [facility] [place] [facility] [address] [facility] [id number] [place] [address] Feb, [facility] [place] [facility] [address] [facility] [id number] [place] [address] Feb, [facility] [place] [facility] [address] [facility] [id number] [place] [address] Feb, [facility] [place] [facility] [address] [facility] [id number] [place] [address] Jan, [facility] [place] [facility] [address] [id number] [place] [address] Jan, [facility] [place] [facility] [address] [id number] [place] [address] Jan, [facility] [place] [facility] [address] [id number] [place] [address] Jan, [facility] [place] [facility] [address] [facility] [id number] [place] [address] Jan, [facility] [place] [facility] [address] [id number] [place] [address] Dec, [facility] [place] [facility] [address] [facility] [id number] [place] [address] Dec, [facility] [place] [facility] [address] [id number] [place] [address] Dec, [facility] [place] [facility] [address] [id number] [place] [address] November, [facility] [address] [id number] [place] [address] November, [facility] [place] [facility] [address] [id number] [place] [address] November, [facility] [place] [facility] [address] [id number] [place] [address] Oct, [facility] [place] [facility] [address] [id number] [place] [address] Oct, [facility] [place] [facility] [address] [id number] [place] [address] Oct, [facility] [place] [facility] [address] [id number] [place] [address] Oct, [facility] [place] [facility] [address] [id number] [place] [address] Oct, [facility] [place] [facility] [address] [id number] [place] [address] Oct, [facility] [place] [facility] [address] [id number] [place] [address] Oct, [facility] [place] [facility] [address] [id number] [place] [address] Sep, [facility] [place] [facility] [address] [id number] [place] [address] Sep, [facility] [place] [facility] [address] [id number] [place] [address] Sep, [facility] [place] [facility] [address] [id number] [place] [address] Sep, [facility] [place] [facility] [address] [id number] [place] [address] Aug, [facility] [place] [facility] [address] [id number] [place] [address] Aug, [facility] [place] [facility] [address] [id number] [place] [address] Aug, [facility] [place] [facility] [address] [id number] [place] [address] Aug, [facility] [place] [facility] [address] [id number] [place] [address] Aug, [facility] [place] [facility] [address] [id number] [place] [address] Aug, [facility] [place] [facility] [address] [id number] [place] [address] Jul, [facility] [place] [facility] [address] [id number] [place] [address] Jul, [facility] [place] [facility] [address] [id number] [place] [address] Jul, [facility] [place] [facility] [address] [id number] [place] [address] Jul, [facility] [place] [facility] [address] [id number] [place] [address] Jul, [facility] [place] [facility] [address] [id number] [place] [address] Jul, [facility] [place] [facility] [address] [id number] [place] [address] Jun, [facility] [place] [facility] [address] [id number] [place] [address] Jun, [facility] [place] [facility] [address] [id number] [place] [address] Jun, [facility] [place] [facility] [address] [id number] [place] [address] Jun, [facility] [place] [facility] [address] [id number] [place] [address] Jun, [facility] [place] [facility] [address] [id number] [place] [address] Jun, [facility] [place] [facility] [id number] [place] [address] May, [facility] [id number] [place] [address] May, [facility] [id number] [place] [address] May, [facility] [id number] [place] [address] May, [facility] [id number] [place] [address] May, [facility] [id number] [place] [address] May, [facility] [id number] [place] [address] May, [facility] [id number] [place] [address] May, [facility] [id number] [place] [address] May, [facility] [id number] [place] [address] May, [facility] [id number] [place] [address] Apr, [facility] [id number] [place] [address] 31 Apr, 2012 [facility] [id number] [place] [address] Apr, [facility] [id number] [place] [address] 23 Apr, 2012 [facility] [id number] [place] [address] 16 Apr, 2012 [facility] [id number] [place] [address] 16 Apr, 2012 [facility] [id number] [place] [address] 15 Apr, 2012 [facility] [id number] [place] [address] 15 Apr, 2012 [facility] [id number] [place] [address] 05 Apr, 2012 [facility] [address] [id number] [place] [address] 28 Mar, 2012 [facility] [id number] [place] [address] 26 Mar, 2012 [facility] [id number] [place] [address] 25 Mar, 2012 [facility] [id number] [place] [address] 19 Mar, 2012 [facility] [address] [id number] [place] [address] 18 Mar, 2012 [facility] [id number] [place] [address] 05 Mar, 2012 [facility] [id number] [place] [address] Feb, [facility] [id number] [place] [address] Feb, [facility] [id number] [place] [address] Feb, [facility] [id number] [place] [address] Jan, [facility] [id number] [place] [address] Jan, [facility] [id number] [place] [address] Jan, [facility] [id number] [place] [address] Jan, [facility] [id number] [place] [address] Dec, [facility] [id number] [place] [address] November, [facility] [id number] [place] [address] November, [facility] [id number] [place] [address] November, [facility] [id number] [place] [address] November, [facility] [id number] [place] [address] November, [facility] [id number] [place] [address] November, [facility] [id number] [place] [address] Oct, [facility] [id number] [place] [address] Oct, [facility] [id number] [place] [address] Sep, [facility] [id number] [place] [address] Sep, [facility] [id number] [place] [address] Sep, [facility] [id number] [place] [address] Aug, [facility] [id number] [place] [address] Aug, [facility] [id number] [place] [address] Aug, [facility] [id number] [place] [address] Aug, [facility] [id number] [place] [address] Aug, [facility] [id number] [place] [address] Aug, [facility] [id number] [place] [address] Jul, [facility] [id number] [place] [address] Jul, [facility] [id number] [place] [address] Jul, [facility] [id number] [place] [address] Jul, [facility] [id number] [place] [address] Jul, [facility] [id number] [place] [address] Jul, [facility] [id number] [place] [address] Jul, [facility] [id number] [place] [address] Jul, [facility] [id number] [place] [address] Jul, [facility] [id number] [place] [address] Jul, [facility] [id number] [place] [address] Jun, [facility] [id number] [place] [address] Jun, [facility] [id number] [place] [address] Jun, [facility] [id number] [place] [address] Jun, [facility] [id number] [place] [address] 30 May, 2011 [facility] [id number] [place] [address] 29 May, 2011 [facility] [id number] [place] [address] May, [facility] [id number] [place] [address] 08 May, 2011 [facility] [id number] [place] [address] 31 Apr, 2011 [facility] [id number] [place] [address] 31 Apr, 2011 [facility] [id number] [place] [address] 10 Nov, 2010 [facility] [id number] [place] [address] 18 Oct, 2010 [facility] [id number] [place] [address] 17 Aug, 2010 [facility] [id number] [place] [address] 28 Jun, 2010 [facility] [id number] [place] [address] 28 Jun, 2010 [facility] [id number] [place] [address] 27 Jun, 2010 [facility] [id number] [place] [address] 03 Jun, 2010 [facility] [id number] [place] [address] 29 May, 2010 [facility] [address] [id number] [place] [address] 27 Apr, 2010 [facility] [address] [id number] [place] [address] 13 Oct, 2009 [facility] [address] [id number] [place] [address] 13 Aug, 2009 [facility] [address] [id number] [place] [address] Jul, [facility] [address] [id number] [place] [address] 22 Jun, 2009 [facility] [address] [id number] [place] [address] 16 Jun, 2009 [facility] [address] [id number] [place] [address] 14 Jun, 2009 [facility] [address] [id number] [place] [address] Jun, [facility] [address] [id number] [place] [address] May, [facility] [address] [id number] [place] [address] Apr, [facility] [address] [id number] [place] [address] 15 Mar, 2009 [facility] [address] [id number] [place] [address] 14 Mar, 2009 [facility] [address] [id number] [place] [address] Dec, IMMUNIZATIONS No Known Immunizations SOCIAL HISTORY [...]
--- OUTSIDE RECORDS SUMMARY | 2019-09-01 05:01 | XMS REPORT ---
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 [address] [id number] [place] [address] November, [facility] [place] [facility] [address] [id number] [place] [address] November, [facility] [place] [facility] [address] [id number] [place] [address] November, [facility] [place] [facility] [address] [id number] [place] [address] November, [facility] [place] [facility] [address] [id number] [place] [address] November, [facility] [place] [facility] [address] [id number] [place] [address] Oct, [facility] [place] [facility] [address] [id number] [place] [address] Oct, [facility] [place] [facility] [address] [id number] [place] [address] Oct, [facility] [place] [facility] [address] [id number] [place] [address] Oct, [facility] [place] [facility] [address] [id number] [place] [address] Oct, [facility] [place] [facility] [address] [id number] [place] [address] Oct, [facility] [place] [facility] [address] [id number] [place] [address] Oct, [facility] [place] [facility] [address] [id number] [place] [address] Oct, [facility] [place] [facility] [address] [id number] [place] [address] Oct, [facility] [place] [facility] [address] [id number] [place] [address] Oct, [facility] [place] [facility] [address] [id number] [place] [address] Oct, [facility] [place] [facility] [address] [id number] [place] [address] Oct, [facility] [place] [facility] [address] [id number] [place] [address] Oct, [facility] [place] [facility] [address] [id number] [place] [address] Oct, [facility] [place] [facility] [address] [id number] [place] [address] Oct, [facility] [place] [facility] [address] [id number] [place] [address] Sep, [facility] [place] [facility] [address] [id number] [place] [address] Sep, [facility] [place] [facility] [address] [id number] [place] [address] Sep, [facility] [place] [facility] [address] [id number] [place] [address] Sep, [facility] [place] [facility] [address] [id number] [place] [address] Aug, [facility] [place] [facility] [address] [id number] [place] [address] Aug, [facility] [place] [facility] [address] [id number] [place] [address] Aug, [facility] [place] [facility] [address] [id number] [place] [address] Aug, [facility] [place] [facility] [address] [id number] [place] [address] Jul, [facility] [place] [facility] [address] [facility] [id number] [place] [address] Jul, [facility] [place] [facility] [address] [id number] [place] [address] Jul, [facility] [place] [facility] [address] [id number] [place] [address] Jul, [facility] [place] [facility] [address] [id number] [place] [address] Jul, [facility] [place] [facility] [address] [id number] [place] [address] Jul, [facility] [place] [facility] [address] [id number] [place] [address] Jul, [facility] [place] [facility] [address] [id number] [place] [address] Jul, [facility] [place] [facility] [address] [id number] [place] [address] Jul, [facility] [place] [facility] [address] [id number] [place] [address] Jul, [facility] [place] [facility] [address] [id number] [place] [address] Jul, [facility] [place] [facility] [address] [id number] [place] [address] Jul, [facility] [place] [facility] [address] [id number] [place] [address] Jul, [facility] [place] [facility] [address] [id number] [place] [address] Jul, [facility] [place] [facility] [address] [id number] [place] [address] Jun, [facility] [place] [facility] [address] [id number] [place] [address] Jun, [facility] [place] [facility] [address] [id number] [place] [address] Jun, [facility] [place] [facility] [address] [id number] [place] [address] Jun, [facility] [place] [facility] [address] [id number] [place] [address] May, [facility] [place] [facility] [address] [id number] [place] [address] May, [facility] [place] [facility] [address] [id number] [place] [address] May, [facility] [place] [facility] [address] [id number] [place] [address] May, [facility] [place] [facility] [address] [id number] [place] [address] May, [facility] [place] [facility] [address] [id number] [place] [address] May, [facility] [place] [facility] [address] [id number] [place] [address] May, [facility] [place] [facility] [address] [id number] [place] [address] May, [facility] [place] [facility] [address] [id number] [place] [address] Apr, [facility] [place] [facility] [address] [id number] [place] [address] Apr, [facility] [place] [facility] [address] [id number] [place] [address] Apr, [facility] [place] [facility] [address] [id number] [place] [address] Apr, [facility] [place] [facility] [address] [id number] [place] [address] Apr, [facility] [place] [facility] [id number] [place] [address] Apr, [facility] [place] [facility] [address] [id number] [place] [address] 30 Mar, 2013 [facility] [place] [facility] [address] [id number] [place] [address] 26 Mar, 2013 [facility] [place] [facility] [address] [id number] [facility] [place] [address] 20 Mar, 2012 [facility] [place] [facility] [address] [facility] [id number] [facility] [place] [address] 17 Mar, 2013 [facility] [place] [facility] [address] [facility] [id number] [facility] [place] [address] 16 Mar, 2013 [facility] [place] [facility] [address] [id number] [facility] [place] [address] 05 Mar, 2013 [facility] [place] [facility] [address] [facility] [id number] [place] [address] Feb, [facility] [place] [facility] [address] [id number] [facility] [place] [address] Feb, [facility] [place] [facility] [address] [id number] [place] [address] Feb, [facility] [place] [facility] [address] [id number] [place] [address] Feb, [facility] [place] [facility] [address] [facility] [id number] [facility] [place] [address] Jan, [facility] [place] [facility] [address] [id number] [facility] [place] [address] Jan, [facility] [place] [facility] [address] [id number] [place] [address] Jan, [facility] [place] [facility] [address] [id number] [place] [address] Jan, [facility] [place] [facility] [address] [facility] [id number] [place] [address] Jan, [facility] [place] [facility] [address] [id number] [place] [address] Dec, [facility] [place] [facility] [address] [facility] [id number] [place] [address] Dec, [facility] [place] [facility] [address] [id number] [place] [address] Dec, [facility] [place] [facility] [address] [id number] [place] [address] November, [facility] [address] [id number] [facility] [place] [address] November, [facility] [place] [facility] [address] [id number] [place] [address] November, [facility] [place] [facility] [address] [id number] [place] [address] Oct, [facility] [place] [facility] [address] [id number] [place] [address] Oct, [facility] [place] [facility] [address] [id number] [place] [address] Oct, [facility] [place] [facility] [address] [id number] [place] [address] Oct, [facility] [place] [facility] [address] [id number] [place] [address] Oct, [facility] [place] [facility] [address] [id number] [place] [address] Oct, [facility] [place] [facility] [address] [id number] [place] [address] Oct, [facility] [place] [facility] [address] [id number] [place] [address] Sep, [facility] [place] [facility] [address] [id number] [place] [address] Sep, [facility] [place] [facility] [address] [id number] [place] [address] Sep, [facility] [place] [facility] [address] [id number] [place] [address] Sep, [facility] [place] [facility] [address] [id number] [place] [address] Aug, [facility] [place] [facility] [address] [id number] [place] [address] Aug, [facility] [place] [facility] [address] [id number] [place] [address] Aug, [facility] [place] [facility] [address] [id number] [place] [address] Aug, [facility] [place] [facility] [address] [id number] [place] [address] Aug, [facility] [place] [facility] [address] [id number] [place] [address] Aug, [facility] [place] [facility] [address] [id number] [place] [address] Jul, [facility] [place] [facility] [address] [id number] [place] [address] Jul, [facility] [place] [facility] [address] [id number] [place] [address] Jul, [facility] [place] [facility] [address] [id number] [place] [address] Jul, [facility] [place] [facility] [address] [id number] [place] [address] Jul, [facility] [place] [facility] [address] [id number] [place] [address] Jul, [facility] [place] [facility] [address] [id number] [place] [address] Jun, [facility] [place] [facility] [address] [id number] [place] [address] Jun, [facility] [place] [facility] [address] [id number] [place] [address] Jun, [facility] [place] [facility] [address] [id number] [place] [address] Jun, [facility] [place] [facility] [address] [id number] [place] [address] Jun, [facility] [place] [facility] [address] [id number] [place] [address] Jun, [facility] [place] [facility] [address] [id number] [place] [address] May, [facility] [place] [facility] [address] [id number] [place] [address] May, [facility] [place] [facility] [address] [id number] [place] [address] May, [facility] [place] [facility] [address] [id number] [place] [address] May, [facility] [address] [id number] [place] [address] May, [facility] [address] [id number] [place] [address] May, [facility] [address] [id number] [place] [address] May, [facility] [address] [id number] [place] [address] May, [facility] [address] [id number] [place] [address] May, [facility] [address] [id number] [place] [address] May, [facility] [address] [id number] [place] [address] Apr, [facility] [address] [id number] [place] [address] 31 Apr, 2012 [facility] [address] [id number] [place] [address] Apr, [facility] [address] [id number] [place] [address] 23 Apr, 2012 [facility] [address] [id number] [place] [address] 16 Apr, 2012 [facility] [address] [id number] [place] [address] 16 Apr, 2012 [facility] [address] [id number] [place] [address] 15 Apr, 2012 [facility] [address] [id number] [place] [address] 15 Apr, 2012 [facility] [address] [id number] [place] [address] 05 Apr, 2012 [facility] [address] [id number] [place] [address] 28 Mar, 2012 [facility] [address] [id number] [place] [address] 26 Mar, 2012 [facility] [address] [id number] [place] [address] 25 Mar, 2012 [facility] [address] [id number] [place] [address] 19 Mar, 2012 [facility] [address] [id number] [place] [address] 18 Mar, 2012 [facility] [address] [id number] [place] [address] 05 Mar, 2012 [facility] [address] [id number] [place] [address] Feb, [facility] [address] [id number] [place] [address] Feb, [facility] [address] [id number] [place] [address] Feb, [facility] [address] [id number] [place] [address] Jan, [facility] [address] [id number] [place] [address] Jan, [facility] [address] [id number] [place] [address] Jan, [facility] [address] [id number] [place] [address] Jan, [facility] [address] [id number] [place] [address] Dec, [facility] [address] [id number] [place] [address] November, [facility] [address] [id number] [place] [address] November, [facility] [address] [id number] [place] [address] November, [facility] [address] [id number] [place] [address] November, [facility] [address] [id number] [place] [address] November, [facility] [address] [id number] [place] [address] November, [facility] [address] [id number] [place] [address] Oct, [facility] [address] [id number] [place] [address] Oct, [facility] [address] [id number] [place] [address] Sep, [facility] [address] [id number] [place] [address] Sep, [facility] [address] [id number] [place] [address] Sep, [facility] [address] [id number] [place] [address] Aug, [facility] [address] [id number] [place] [address] Aug, [facility] [address] [id number] [place] [address] Aug, [facility] [address] [id number] [place] [address] Aug, [facility] [address] [id number] [place] [address] Aug, [facility] [address] [id number] [place] [address] Aug, [facility] [address] [id number] [place] [address] Jul, [facility] [address] [id number] [place] [address] Jul, [facility] [address] [id number] [place] [address] Jul, [facility] [address] [id number] [place] [address] Jul, [facility] [address] [id number] [place] [address] Jul, [facility] [address] [id number] [place] [address] Jul, [facility] [address] [id number] [place] [address] Jul, [facility] [address] [id number] [place] [address] Jul, [facility] [address] [id number] [place] [address] Jul, [facility] [address] [id number] [place] [address] Jul, [facility] [address] [id number] [place] [address] Jun, [facility] [address] [id number] [place] [address] Jun, [facility] [address] [id number] [place] [address] Jun, [facility] [address] [id number] [place] [address] Jun, [facility] [address] [id number] [place] [address] 30 May, 2011 [facility] [id number] [place] [address] 29 May, 2011 [facility] [address] [id number] [place] [address] May, [facility] [address] [id number] [place] [address] 08 May, 2011 [facility] [address] [id number] [place] [address] 31 Apr, 2011 [facility] [address] [id number] [place] [address] 31 Apr, 2011 [facility] [address] [id number] [place] [address] 10 Nov, 2010 [facility] [address] [id number] [place] [address] 18 Oct, 2010 [facility] [address] [id number] [place] [address] 17 Aug, 2010 [facility] [address] [id number] [place] [address] 28 Jun, 2010 [facility] [address] [id number] [place] [address] 28 Jun, 2010 [facility] [id number] [place] [address] 27 Jun, 2010 [facility] [address] [id number] [place] [address] 03 Jun, 2010 [facility] [address] [id number] [place] [address] 29 May, 2010 [facility] [address] [id number] [place] [address] 27 Apr, 2010 [facility] [address] [id number] [place] [address] 13 Oct, 2009 [facility] [address] [id number] [place] [address] 13 Aug, 2009 [facility] [address] [id number] [place] [address] Jul, [facility] [address] [id number] [place] [address] 22 Jun, 2009 [facility] [address] [id number] [place] [address] 16 Jun, 2009 [facility] [address] [id number] [place] [address] 14 Jun, 2009 [facility] [address] [id number] [place] [address] Jun, [facility] [address] [id number] [place] [address] May, [facility] [address] [id number] [place] [address] Apr, [facility] [address] [id number] [place] [address] 15 Mar, 2009 [facility] [address] [id number] [place] [address] 14 Mar, 2009 [facility] [address] [id number] [place] [address] Dec, IMMUNIZATIONS No Known Immunizations SOCIAL HISTORY [...]
--- OUTSIDE RECORDS SUMMARY | 2019-09-01 05:01 | XMS REPORT ---
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 [address] November, [facility] [place] [facility] [address] [id number] [place] [address] November, [facility] [place] [facility] [address] [id number] [place] [address] November, [facility] [place] [facility] [address] [id number] [place] [address] November, [facility] [place] [facility] [address] [id number] [place] [address] November, [facility] [place] [facility] [address] [id number] [place] [address] Oct, [facility] [place] [facility] [address] [id number] [place] [address] Oct, [facility] [place] [facility] [address] [id number] [place] [address] Oct, [facility] [place] [facility] [address] [id number] [place] [address] Oct, [facility] [place] [facility] [address] [id number] [place] [address] Oct, [facility] [place] [facility] [address] [id number] [place] [address] Oct, [facility] [place] [facility] [address] [id number] [place] [address] Oct, [facility] [place] [facility] [address] [id number] [place] [address] Oct, [facility] [place] [facility] [address] [id number] [place] [address] Oct, [facility] [place] [facility] [address] [id number] [place] [address] Oct, [facility] [place] [facility] [address] [id number] [place] [address] Oct, [facility] [place] [facility] [address] [id number] [place] [address] Oct, [facility] [place] [facility] [address] [id number] [place] [address] Oct, [facility] [place] [facility] [address] [id number] [place] [address] Oct, [facility] [place] [facility] [address] [id number] [place] [address] Oct, [facility] [place] [facility] [address] [id number] [place] [address] Sep, [facility] [place] [facility] [address] [id number] [place] [address] Sep, [facility] [place] [facility] [address] [id number] [place] [address] Sep, [facility] [place] [facility] [address] [id number] [place] [address] Sep, [facility] [place] [facility] [address] [id number] [place] [address] Aug, [facility] [place] [facility] [address] [id number] [place] [address] Aug, [facility] [place] [facility] [address] [id number] [place] [address] Aug, [facility] [place] [facility] [address] [id number] [place] [address] Aug, [facility] [place] [facility] [address] [id number] [place] [address] Jul, [facility] [place] [facility] [address] [facility] [id number] [place] [address] Jul, [facility] [place] [facility] [address] [id number] [place] [address] Jul, [facility] [place] [facility] [address] [id number] [place] [address] Jul, [facility] [place] [facility] [address] [id number] [place] [address] Jul, [facility] [place] [facility] [address] [id number] [place] [address] Jul, [facility] [place] [facility] [address] [id number] [place] [address] Jul, [facility] [place] [facility] [address] [id number] [place] [address] Jul, [facility] [place] [facility] [address] [id number] [place] [address] Jul, [facility] [place] [facility] [address] [id number] [place] [address] Jul, [facility] [place] [facility] [address] [id number] [place] [address] Jul, [facility] [place] [facility] [address] [id number] [place] [address] Jul, [facility] [place] [facility] [address] [id number] [place] [address] Jul, [facility] [place] [facility] [address] [id number] [place] [address] Jul, [facility] [place] [facility] [address] [id number] [place] [address] Jun, [facility] [place] [facility] [address] [id number] [place] [address] Jun, [facility] [place] [facility] [address] [id number] [place] [address] Jun, [facility] [place] [facility] [address] [id number] [place] [address] Jun, [facility] [place] [facility] [address] [id number] [place] [address] May, [facility] [place] [facility] [address] [id number] [place] [address] May, [facility] [place] [facility] [address] [id number] [place] [address] May, [facility] [place] [facility] [address] [id number] [place] [address] May, [facility] [place] [facility] [address] [id number] [place] [address] May, [facility] [place] [facility] [address] [id number] [place] [address] May, [facility] [place] [facility] [address] [id number] [place] [address] May, [facility] [place] [facility] [address] [id number] [place] [address] May, [facility] [place] [facility] [address] [id number] [place] [address] Apr, [facility] [place] [facility] [address] [id number] [place] [address] Apr, [facility] [place] [facility] [address] [id number] [place] [address] Apr, [facility] [place] [facility] [address] [id number] [place] [address] Apr, [facility] [place] [facility] [address] [id number] [place] [address] Apr, [facility] [place] [facility] [address] [id number] [place] [address] Apr, [facility] [place] [facility] [address] [id number] [place] [address] 30 Mar, 2013 [facility] [place] [facility] [address] [id number] [place] [address] 26 Mar, 2013 [facility] [place] [facility] [address] [id number] [facility] [place] [address] 20 Mar, 2012 [facility] [place] [facility] [address] [facility] [id number] [facility] [place] [address] 17 Mar, 2013 [facility] [place] [facility] [address] [facility] [id number] [facility] [place] [address] 16 Mar, 2013 [facility] [place] [facility] [address] [id number] [facility] [place] [address] 05 Mar, 2013 [facility] [place] [facility] [address] [facility] [id number] [place] [address] Feb, [facility] [place] [facility] [address] [id number] [facility] [place] [address] Feb, [facility] [place] [facility] [address] [id number] [place] [address] Feb, [facility] [place] [facility] [address] [id number] [place] [address] Feb, [facility] [place] [facility] [address] [facility] [id number] [facility] [place] [address] Jan, [facility] [place] [facility] [address] [id number] [facility] [place] [address] Jan, [facility] [place] [facility] [address] [id number] [place] [address] Jan, [facility] [place] [facility] [address] [id number] [place] [address] Jan, [facility] [place] [facility] [address] [facility] [id number] [place] [address] Jan, [facility] [place] [facility] [address] [id number] [place] [address] Dec, [facility] [place] [facility] [address] [facility] [id number] [place] [address] Dec, [facility] [address] [id number] [place] [address] Dec, [facility] [address] [id number] [place] [address] November, [facility] [address] [id number] [facility] [place] [address] November, [facility] [address] [id number] [place] [address] November, [facility] [address] [id number] [place] [address] Oct, [facility] [address] [id number] [place] [address] Oct, [facility] [address] [id number] [place] [address] Oct, [facility] [address] [id number] [place] [address] Oct, [facility] [address] [id number] [place] [address] Oct, [facility] [address] [id number] [place] [address] Oct, [facility] [address] [id number] [place] [address] Oct, [facility] [address] [id number] [place] [address] Sep, [facility] [address] [id number] [place] [address] Sep, [facility] [address] [id number] [place] [address] Sep, [facility] [address] [id number] [place] [address] Sep, [facility] [address] [id number] [place] [address] Aug, [facility] [address] [id number] [place] [address] Aug, [facility] [address] [id number] [place] [address] Aug, [facility] [address] [id number] [place] [address] Aug, [facility] [address] [id number] [place] [address] Aug, [facility] [address] [id number] [place] [address] Aug, [facility] [address] [id number] [place] [address] Jul, [facility] [address] [id number] [place] [address] Jul, [facility] [address] [id number] [place] [address] Jul, [facility] [address] [id number] [place] [address] Jul, [facility] [address] [id number] [place] [address] Jul, [facility] [address] [id number] [place] [address] Jul, [facility] [address] [id number] [place] [address] Jun, [facility] [address] [id number] [place] [address] Jun, [facility] [address] [id number] [place] [address] Jun, [facility] [address] [id number] [place] [address] Jun, [facility] [address] [id number] [place] [address] Jun, [facility] [address] [id number] [place] [address] Jun, [facility] [address] [id number] [place] [address] May, [facility] [address] [id number] [place] [address] May, [facility] [address] [id number] [place] [address] May, [facility] [address] [id number] [place] [address] May, [facility] [address] [id number] [place] [address] May, [facility] [address] [id number] [place] [address] May, [facility] [address] [id number] [place] [address] May, [facility] [address] [id number] [place] [address] May, [facility] [address] [id number] [place] [address] May, [facility] [address] [id number] [place] [address] May, [facility] [address] [id number] [place] [address] Apr, [facility] [address] [id number] [place] [address] 31 Apr, 2012 [facility] [address] [id number] [place] [address] Apr, [facility] [address] [id number] [place] [address] 23 Apr, 2012 [facility] [address] [id number] [place] [address] 16 Apr, 2012 [facility] [address] [id number] [place] [address] 16 Apr, 2012 [facility] [address] [id number] [place] [address] 15 Apr, 2012 [facility] [address] [id number] [place] [address] 15 Apr, 2012 [facility] [address] [id number] [place] [address] 05 Apr, 2012 [facility] [address] [id number] [place] [address] 28 Mar, 2012 [facility] [address] [id number] [place] [address] 26 Mar, 2012 [facility] [address] [id number] [place] [address] 25 Mar, 2012 [facility] [address] [id number] [place] [address] 19 Mar, 2012 [facility] [address] [id number] [place] [address] 18 Mar, 2012 [facility] [address] [id number] [place] [address] 05 Mar, 2012 [facility] [address] [id number] [place] [address] Feb, [facility] [address] [id number] [place] [address] Feb, [facility] [address] [id number] [place] [address] Feb, [facility] [address] [id number] [place] [address] Jan, [facility] [address] [id number] [place] [address] Jan, [facility] [address] [id number] [place] [address] Jan, [facility] [address] [id number] [place] [address] Jan, [facility] [address] [id number] [place] [address] Dec, [facility] [address] [id number] [place] [address] November, [facility] [address] [id number] [place] [address] November, [facility] [address] [id number] [place] [address] November, [facility] [address] [id number] [place] [address] November, [facility] [address] [id number] [place] [address] November, [facility] [address] [id number] [place] [address] November, [facility] [address] [id number] [place] [address] Oct, [facility] [address] [id number] [place] [address] Oct, [facility] [address] [id number] [place] [address] Sep, [facility] [address] [id number] [place] [address] Sep, [facility] [address] [id number] [place] [address] Sep, [facility] [address] [id number] [place] [address] Aug, [facility] [address] [id number] [place] [address] Aug, [facility] [address] [id number] [place] [address] Aug, [facility] [address] [id number] [place] [address] Aug, [facility] [address] [id number] [place] [address] Aug, [facility] [address] [id number] [place] [address] Aug, [facility] [address] [id number] [place] [address] Jul, [facility] [address] [id number] [place] [address] Jul, [facility] [address] [id number] [place] [address] Jul, [facility] [address] [id number] [place] [address] Jul, [facility] [address] [id number] [place] [address] Jul, [facility] [address] [id number] [place] [address] Jul, [facility] [address] [id number] [place] [address] Jul, [facility] [address] [id number] [place] [address] Jul, [facility] [address] [id number] [place] [address] Jul, [facility] [address] [id number] [place] [address] Jul, [facility] [address] [id number] [place] [address] Jun, [facility] [address] [id number] [place] [address] Jun, [facility] [address] [id number] [place] [address] Jun, [facility] [address] [id number] [place] [address] Jun, [facility] [address] [id number] [place] [address] 30 May, 2011 [facility] [id number] [place] [address] 29 May, 2011 [facility] [address] [id number] [place] [address] May, [facility] [address] [id number] [place] [address] 08 May, 2011 [facility] [address] [id number] [place] [address] 31 Apr, 2011 [facility] [address] [id number] [place] [address] 31 Apr, 2011 [facility] [address] [id number] [place] [address] 10 Nov, 2010 [facility] [address] [id number] [place] [address] 18 Oct, 2010 [facility] [address] [id number] [place] [address] 17 Aug, 2010 [facility] [address] [id number] [place] [address] 28 Jun, 2010 [facility] [address] [id number] [place] [address] 28 Jun, 2010 [facility] [id number] [place] [address] 27 Jun, 2010 [facility] [address] [id number] [place] [address] 03 Jun, 2010 [facility] [address] [id number] [place] [address] 29 May, 2010 [facility] [address] [id number] [place] [address] 27 Apr, 2010 [facility] [address] [id number] [place] [address] 13 Oct, 2009 [facility] [address] [id number] [place] [address] 13 Aug, 2009 [facility] [address] [id number] [place] [address] Jul, [facility] [address] [id number] [place] [address] 22 Jun, 2009 [facility] [address] [id number] [place] [address] 16 Jun, 2009 [facility] [address] [id number] [place] [address] Jun, [facility] [address] [id number] [place] [address] Jun, [facility] [address] [id number] [place] [address] May, [facility] [address] [id number] [place] [address] Apr, [facility] [address] [facility] [id number] [place] [address] 15 Mar, 2009 [facility] [address] [id number] [place] [address] 14 Mar, 2009 [facility] [address] [id number] [place] [address] Dec, IMMUNIZATIONS No Known Immunizations SOCIAL HISTORY Never Assessed REASON FOR VISIT Refill request PLAN OF CARE VITAL SIGNS MEDICATIONS Medication Instructions Dosage Frequency Start Date End Date Duration S tatus Dicyclomine HCl 20 MG Orally 3 times a day 1 tablet 8h 30 day(s) Active RESULTS No Results PROCEDURES No Known procedures [...]
--- OUTSIDE RECORDS SUMMARY | 2019-09-01 05:02 | XMS REPORT ---
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 [address] Jul, [facility] [address] [id number] [place] [address] Jul, [facility] [address] [facility] [id number] [place] [address] Jul, [facility] [address] [id number] [place] [address] Jul, [facility] [address] [id number] [place] [address] Jul, [facility] [address] [id number] [place] [address] Jul, [facility] [address] [id number] [place] [address] Jul, [facility] [address] [id number] [place] [address] Jul, [facility] [address] [id number] [place] [address] Jul, [facility] [address] [id number] [place] [address] Jul, [facility] [address] [id number] [place] [address] Jul, [facility] [address] [id number] [place] [address] Jul, [facility] [address] [id number] [place] [address] Jul, [facility] [address] [id number] [place] [address] Jul, [facility] [address] [id number] [place] [address] Jun, [facility] [address] [id number] [place] [address] Jun, [facility] [address] [id number] [place] [address] Jun, [facility] [address] [id number] [place] [address] Jun, [facility] [address] [id number] [place] [address] May, [facility] [address] [id number] [place] [address] May, [facility] [address] [id number] [place] [address] May, [facility] [address] [id number] [place] [address] May, [facility] [address] [id number] [place] [address] May, [facility] [address] [id number] [place] [address] May, [facility] [address] [id number] [place] [address] May, [facility] [address] [id number] [place] [address] May, [facility] [address] [id number] [place] [address] Apr, [facility] [address] [id number] [place] [address] Apr, [facility] [facility] [address] [id number] [place] [address] Apr, [facility] [place] [facility] [address] [id number] [place] [address] Apr, [facility] [place] [facility] [address] [id number] [place] [address] Apr, [facility] [place] [facility] [address] [id number] [place] [address] Apr, [facility] [place] [facility] [address] [id number] [place] [address] 30 Mar, 2013 [facility] [place] [facility] [address] [id number] [place] [address] 26 Mar, 2013 [facility] [place] [facility] [address] [id number] [place] [address] 20 Mar, 2013 [facility] [place] [facility] [address] [id number] [facility] [place] [address] 17 Mar, 2013 [facility] [place] [facility] [address] [facility] [id number] [facility] [place] [address] 16 Mar, 2013 [facility] [place] [facility] [address] [id number] [facility] [place] [address] Mar, [facility] [place] [facility] [address] [facility] [id number] [place] [address] Feb, [facility] [place] [facility] [address] [facility] [id number] [place] [address] Feb, [facility] [place] [facility] [address] [id number] [facility] [place] [address] Feb, [facility] [place] [facility] [address] [id number] [place] [address] Feb, [facility] [place] [facility] [address] [id number] [facility] [place] [address] Jan, [facility] [place] [facility] [address] [facility] [id number] [facility] [place] [address] Jan, [facility] [place] [facility] [address] [id number] [facility] [place] [address] Jan, [facility] [place] [facility] [address] [id number] [place] [address] Jan, [facility] [place] [facility] [address] [id number] [place] [address] Jan, [facility] [place] [facility] [address] [facility] [id number] [facility] [place] [address] Dec, [facility] [place] [facility] [address] [id number] [place] [address] Dec, [facility] [place] [facility] [address] [id number] [place] [address] Dec, [facility] [place] [facility] [address] [id number] [facility] [place] [address] November, [facility] [place] [facility] [address] [id number] [place] [address] November, [facility] [address] [facility] [id number] [facility] [place] [address] November, [facility] [place] [facility] [address] [id number] [place] [address] Oct, [facility] [place] [facility] [address] [id number] [place] [address] Oct, [facility] [place] [facility] [address] [id number] [place] [address] Oct, [facility] [place] [facility] [address] [id number] [place] [address] Oct, [facility] [place] [facility] [address] [id number] [place] [address] Oct, [facility] [place] [facility] [address] [id number] [place] [address] Oct, [facility] [place] [facility] [address] [id number] [place] [address] 15 Oct, 2012 [facility] [place] [facility] [address] [id number] [place] [address] Sep, [facility] [place] [facility] [address] [id number] [place] [address] Sep, [facility] [place] [facility] [address] [id number] [place] [address] Sep, [facility] [place] [facility] [address] [id number] [place] [address] Sep, [facility] [place] [facility] [address] [id number] [place] [address] Aug, [facility] [place] [facility] [address] [id number] [place] [address] Aug, [facility] [place] [facility] [address] [id number] [place] [address] Aug, [facility] [place] [facility] [address] [id number] [place] [address] Aug, [facility] [place] [facility] [address] [id number] [place] [address] Aug, [facility] [place] [facility] [address] [id number] [place] [address] Aug, [facility] [place] [facility] [address] [id number] [place] [address] Jul, [facility] [place] [facility] [address] [id number] [place] [address] Jul, [facility] [place] [facility] [address] [id number] [place] [address] Jul, [facility] [place] [facility] [address] [id number] [place] [address] Jul, [facility] [place] [facility] [address] [id number] [place] [address] Jul, [facility] [address] [id number] [place] [address] Jul, [facility] [place] [facility] [address] [id number] [place] [address] Jun, [facility] [place] [facility] [address] [id number] [place] [address] Jun, [facility] [address] [id number] [place] [address] Jun, [facility] [address] [id number] [place] [address] Jun, [facility] [address] [id number] [place] [address] Jun, [facility] [address] [id number] [place] [address] Jun, [facility] [address] [id number] [place] [address] May, [facility] [address] [id number] [place] [address] May, [facility] [address] [id number] [place] [address] May, [facility] [address] [id number] [place] [address] May, [facility] [address] [id number] [place] [address] May, [facility] [address] [id number] [place] [address] May, [facility] [address] [id number] [place] [address] May, [facility] [address] [id number] [place] [address] May, [facility] [address] [id number] [place] [address] May, [facility] [address] [id number] [place] [address] May, [facility] [address] [id number] [place] [address] Apr, [facility] [address] [id number] [place] [address] 31 Apr, 2012 [facility] [address] [id number] [place] [address] Apr, [facility] [address] [id number] [place] [address] Apr, [facility] [address] [id number] [place] [address] 16 Apr, 2012 [facility] [address] [id number] [place] [address] 16 Apr, 2012 [facility] [address] [id number] [place] [address] 15 Apr, 2012 [facility] [address] [id number] [place] [address] 15 Apr, 2012 [facility] [address] [id number] [place] [address] Apr, [facility] [address] [id number] [facility] [place] [address] 28 Mar, 2011 [facility] [id number] [place] [address] 26 Mar, 2012 [facility] [address] [id number] [place] [address] 25 Mar, 2012 [facility] [address] [id number] [place] [address] 19 Mar, 2012 [facility] [address] [id number] [place] [address] 18 Mar, 2012 [facility] [address] [id number] [place] [address] 05 Mar, 2012 [facility] [address] [id number] [place] [address] Feb, [facility] [address] [id number] [place] [address] Feb, [facility] [address] [id number] [place] [address] Feb, [facility] [address] [id number] [place] [address] Jan, [facility] [address] [id number] [place] [address] Jan, [facility] [address] [id number] [place] [address] Jan, [facility] [address] [id number] [place] [address] Jan, [facility] [address] [id number] [place] [address] Dec, [facility] [address] [id number] [place] [address] November, [facility] [address] [id number] [place] [address] November, [facility] [address] [id number] [place] [address] November, [facility] [address] [id number] [place] [address] November, [facility] [address] [id number] [place] [address] November, [facility] [address] [id number] [place] [address] November, [facility] [address] [id number] [place] [address] Oct, [facility] [address] [id number] [place] [address] Oct, [facility] [address] [id number] [place] [address] Sep, [facility] [address] [id number] [place] [address] Sep, [facility] [address] [id number] [place] [address] Sep, [facility] [address] [id number] [place] [address] Aug, [facility] [address] [id number] [place] [address] Aug, [facility] [address] [id number] [place] [address] Aug, [facility] [address] [id number] [place] [address] Aug, [facility] [address] [id number] [place] [address] Aug, [facility] [address] [id number] [place] [address] Aug, [facility] [address] [id number] [place] [address] Jul, [facility] [address] [id number] [place] [address] Jul, [facility] [address] [id number] [place] [address] Jul, [facility] [address] [id number] [place] [address] Jul, [facility] [address] [id number] [place] [address] Jul, [facility] [address] [id number] [place] [address] Jul, [facility] [address] [id number] [place] [address] Jul, [facility] [address] [id number] [place] [address] Jul, [facility] [address] [id number] [place] [address] Jul, [facility] [address] [id number] [place] [address] Jul, [facility] [address] [id number] [place] [address] Jun, [facility] [address] [id number] [place] [address] Jun, [facility] [address] [id number] [place] [address] Jun, [facility] [address] [id number] [place] [address] Jun, [facility] [address] [id number] [place] [address] 30 May, 2011 [facility] [address] [id number] [place] [address] 29 May, 2011 [facility] [id number] [place] [address] May, [facility] [address] [id number] [place] [address] 08 May, 2011 [facility] [address] [id number] [place] [address] 31 Apr, 2011 [facility] [address] [id number] [place] [address] 31 Apr, 2011 [facility] [address] [id number] [place] [address] 10 Nov, 2010 [facility] [address] [id number] [place] [address] 18 Oct, 2010 [facility] [address] [id number] [place] [address] 17 Aug, 2010 [facility] [address] [id number] [place] [address] 28 Jun, 2010 [facility] [address] [id number] [place] [address] 28 Jun, 2010 [facility] [address] [id number] [place] [address] Jun, [facility] [address] [id number] [place] [address] Jun, [facility] [address] [id number] [place] [address] May, [facility] [address] [id number] [place] [address] 27 Apr, 2010 [facility] [address] [id number] [place] [address] 13 Oct, 2009 [facility] [address] [id number] [place] [address] 13 Aug, 2009 [facility] [address] [id number] [place] [address] Jul, [facility] [address] [id number] [place] [address] 22 Jun, 2009 [facility] [address] [id number] [place] [address] 16 Jun, 2009 [facility] [address] [id number] [place] [address] 14 Jun, 2009 [facility] [address] [id number] [place] [address] Jun, [facility] [address] [id number] [place] [address] May, [facility] [address] [id number] [place] [address] Apr, [facility] [address] [id number] [place] [address] 15 Mar, 2009 [facility] [address] [id number] [place] [address] 14 Mar, 2009 [facility] [address] [id number] [place] [address] Dec, IMMUNIZATIONS No Known Immunizations SOCIAL HISTORY [...]
--- OUTSIDE RECORDS SUMMARY | 2019-09-01 05:02 | XMS REPORT ---
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 [place] [address] November, [facility] [place] [facility] [address] [id number] [place] [address] November, [facility] [place] [facility] [address] [id number] [place] [address] November, [facility] [place] [facility] [address] [id number] [place] [address] November, [facility] [place] [facility] [address] [id number] [place] [address] November, [facility] [place] [facility] [address] [id number] [place] [address] Oct, [facility] [place] [facility] [address] [id number] [place] [address] Oct, [facility] [place] [facility] [address] [id number] [place] [address] Oct, [facility] [place] [facility] [address] [id number] [place] [address] Oct, [facility] [place] [facility] [address] [id number] [place] [address] Oct, [facility] [place] [facility] [address] [id number] [place] [address] Oct, [facility] [place] [facility] [address] [id number] [place] [address] Oct, [facility] [place] [facility] [address] [id number] [place] [address] Oct, [facility] [place] [facility] [address] [id number] [place] [address] Oct, [facility] [place] [facility] [address] [id number] [place] [address] Oct, [facility] [place] [facility] [address] [id number] [place] [address] Oct, [facility] [place] [facility] [address] [id number] [place] [address] Oct, [facility] [place] [facility] [address] [id number] [place] [address] Oct, [facility] [place] [facility] [address] [id number] [place] [address] Oct, [facility] [place] [facility] [address] [id number] [place] [address] Oct, [facility] [place] [facility] [address] [id number] [place] [address] Sep, [facility] [place] [facility] [address] [id number] [place] [address] Sep, [facility] [place] [facility] [address] [id number] [place] [address] Sep, [facility] [place] [facility] [address] [id number] [place] [address] Sep, [facility] [place] [facility] [address] [id number] [place] [address] Aug, [facility] [place] [facility] [address] [id number] [place] [address] Aug, [facility] [place] [facility] [address] [id number] [place] [address] Aug, [facility] [place] [facility] [address] [id number] [place] [address] Aug, [facility] [place] [facility] [address] [id number] [place] [address] Jul, [facility] [place] [facility] [address] [facility] [id number] [place] [address] Jul, [facility] [place] [facility] [address] [id number] [place] [address] Jul, [facility] [place] [facility] [address] [id number] [place] [address] Jul, [facility] [place] [facility] [address] [id number] [place] [address] Jul, [facility] [place] [facility] [address] [id number] [place] [address] Jul, [facility] [place] [facility] [address] [id number] [place] [address] Jul, [facility] [place] [facility] [address] [id number] [place] [address] Jul, [facility] [place] [facility] [address] [id number] [place] [address] Jul, [facility] [place] [facility] [address] [id number] [place] [address] Jul, [facility] [place] [facility] [address] [id number] [place] [address] Jul, [facility] [place] [facility] [address] [id number] [place] [address] Jul, [facility] [place] [facility] [address] [id number] [place] [address] Jul, [facility] [place] [facility] [address] [id number] [place] [address] Jul, [facility] [place] [facility] [address] [id number] [place] [address] Jun, [facility] [place] [facility] [address] [id number] [place] [address] Jun, [facility] [place] [facility] [address] [id number] [place] [address] Jun, [facility] [place] [facility] [address] [id number] [place] [address] Jun, [facility] [place] [facility] [address] [id number] [place] [address] May, [facility] [place] [facility] [address] [id number] [place] [address] May, [facility] [place] [facility] [address] [id number] [place] [address] May, [facility] [place] [facility] [address] [id number] [place] [address] May, [facility] [place] [facility] [address] [id number] [place] [address] May, [facility] [place] [facility] [address] [id number] [place] [address] May, [facility] [place] [facility] [address] [id number] [place] [address] May, [facility] [place] [facility] [address] [id number] [place] [address] May, [facility] [place] [facility] [address] [id number] [place] [address] Apr, [facility] [place] [facility] [address] [id number] [place] [address] Apr, [facility] [place] [facility] [address] [id number] [place] [address] Apr, [facility] [place] [facility] [address] [id number] [place] [address] Apr, [facility] [place] [facility] [address] [id number] [place] [address] Apr, [facility] [place] [facility] [id number] [place] [address] Apr, [facility] [place] [facility] [address] [id number] [place] [address] 30 Mar, 2013 [facility] [place] [facility] [address] [id number] [place] [address] 26 Mar, 2013 [facility] [place] [facility] [address] [id number] [facility] [place] [address] 20 Mar, 2012 [facility] [place] [facility] [address] [facility] [id number] [facility] [place] [address] 17 Mar, 2013 [facility] [place] [facility] [address] [facility] [id number] [facility] [place] [address] 16 Mar, 2013 [facility] [place] [facility] [address] [id number] [facility] [place] [address] 05 Mar, 2013 [facility] [place] [facility] [address] [facility] [id number] [place] [address] Feb, [facility] [place] [facility] [address] [id number] [facility] [place] [address] Feb, [facility] [place] [facility] [address] [id number] [place] [address] Feb, [facility] [place] [facility] [address] [id number] [place] [address] Feb, [facility] [place] [facility] [address] [facility] [id number] [facility] [place] [address] Jan, [facility] [place] [facility] [address] [id number] [facility] [place] [address] Jan, [facility] [place] [facility] [address] [id number] [place] [address] Jan, [facility] [place] [facility] [address] [id number] [place] [address] Jan, [facility] [place] [facility] [address] [facility] [id number] [place] [address] Jan, [facility] [place] [facility] [address] [id number] [place] [address] Dec, [facility] [place] [facility] [address] [facility] [id number] [place] [address] Dec, [facility] [place] [facility] [address] [id number] [place] [address] Dec, [facility] [place] [facility] [address] [id number] [place] [address] November, [facility] [address] [id number] [facility] [place] [address] November, [facility] [place] [facility] [address] [id number] [place] [address] November, [facility] [place] [facility] [address] [id number] [place] [address] Oct, [facility] [place] [facility] [address] [id number] [place] [address] Oct, [facility] [place] [facility] [address] [id number] [place] [address] Oct, [facility] [place] [facility] [address] [id number] [place] [address] Oct, [facility] [place] [facility] [address] [id number] [place] [address] Oct, [facility] [place] [facility] [address] [id number] [place] [address] Oct, [facility] [place] [facility] [address] [id number] [place] [address] Oct, [facility] [place] [facility] [address] [id number] [place] [address] Sep, [facility] [place] [facility] [address] [id number] [place] [address] Sep, [facility] [place] [facility] [address] [id number] [place] [address] Sep, [facility] [place] [facility] [address] [id number] [place] [address] Sep, [facility] [place] [facility] [address] [id number] [place] [address] Aug, [facility] [place] [facility] [address] [id number] [place] [address] Aug, [facility] [place] [facility] [address] [id number] [place] [address] Aug, [facility] [place] [facility] [address] [id number] [place] [address] Aug, [facility] [place] [facility] [address] [id number] [place] [address] Aug, [facility] [place] [facility] [address] [id number] [place] [address] Aug, [facility] [place] [facility] [address] [id number] [place] [address] Jul, [facility] [place] [facility] [address] [id number] [place] [address] Jul, [facility] [place] [facility] [address] [id number] [place] [address] Jul, [facility] [place] [facility] [address] [id number] [place] [address] Jul, [facility] [place] [facility] [address] [id number] [place] [address] Jul, [facility] [place] [facility] [address] [id number] [place] [address] Jul, [facility] [place] [facility] [address] [id number] [place] [address] Jun, [facility] [place] [facility] [address] [id number] [place] [address] Jun, [facility] [place] [facility] [address] [id number] [place] [address] Jun, [facility] [place] [facility] [address] [id number] [place] [address] Jun, [facility] [place] [facility] [address] [id number] [place] [address] Jun, [facility] [place] [facility] [address] [id number] [place] [address] Jun, [facility] [place] [facility] [address] [id number] [place] [address] May, [facility] [place] [facility] [address] [id number] [place] [address] May, [facility] [place] [facility] [address] [id number] [place] [address] May, [facility] [place] [facility] [address] [facility] [id number] [place] [address] May, [facility] [address] [facility] [id number] [place] [address] May, [facility] [address] [facility] [id number] [place] [address] May, [facility] [address] [facility] [id number] [place] [address] May, [facility] [address] [facility] [id number] [place] [address] May, [facility] [address] [facility] [id number] [place] [address] May, [facility] [address] [facility] [id number] [place] [address] May, [facility] [address] [facility] [id number] [place] [address] Apr, [facility] [address] [facility] [id number] [place] [address] 31 Apr, 2012 [facility] [address] [id number] [place] [address] Apr, [facility] [address] [facility] [id number] [place] [address] 23 Apr, 2012 [facility] [address] [facility] [id number] [place] [address] 16 Apr, 2012 [facility] [address] [facility] [id number] [place] [address] 16 Apr, 2012 [facility] [address] [id number] [place] [address] 15 Apr, 2012 [facility] [address] [facility] [id number] [place] [address] 15 Apr, 2012 [facility] [address] [facility] [id number] [place] [address] 05 Apr, 2012 [facility] [address] [id number] [place] [address] 28 Mar, 2012 [facility] [address] [id number] [place] [address] 26 Mar, 2012 [facility] [address] [facility] [id number] [place] [address] 25 Mar, 2012 [facility] [address] [id number] [place] [address] 19 Mar, 2012 [facility] [address] [id number] [place] [address] 18 Mar, 2012 [facility] [address] [id number] [place] [address] 05 Mar, 2012 [facility] [address] [facility] [id number] [place] [address] Feb, [facility] [address] [facility] [id number] [place] [address] Feb, [facility] [address] [facility] [id number] [place] [address] Feb, [facility] [address] [facility] [id number] [place] [address] Jan, [facility] [address] [facility] [id number] [place] [address] Jan, [facility] [address] [facility] [id number] [place] [address] Jan, [facility] [address] [facility] [id number] [place] [address] Jan, [facility] [address] [facility] [id number] [place] [address] Dec, [facility] [address] [facility] [id number] [place] [address] November, [facility] [address] [facility] [id number] [place] [address] November, [facility] [address] [facility] [id number] [place] [address] November, [facility] [address] [facility] [id number] [place] [address] November, [facility] [address] [facility] [id number] [place] [address] November, [facility] [address] [facility] [id number] [place] [address] November, [facility] [address] [facility] [id number] [place] [address] Oct, [facility] [address] [facility] [id number] [place] [address] Oct, [facility] [address] [facility] [id number] [place] [address] Sep, [facility] [address] [facility] [id number] [place] [address] Sep, [facility] [address] [facility] [id number] [place] [address] Sep, [facility] [address] [facility] [id number] [place] [address] Aug, [facility] [address] [facility] [id number] [place] [address] Aug, [facility] [address] [facility] [id number] [place] [address] Aug, [facility] [address] [facility] [id number] [place] [address] Aug, [facility] [address] [facility] [id number] [place] [address] Aug, [facility] [address] [facility] [id number] [place] [address] Aug, [facility] [address] [facility] [id number] [place] [address] Jul, [facility] [address] [facility] [id number] [place] [address] Jul, [facility] [address] [facility] [id number] [place] [address] Jul, [facility] [address] [facility] [id number] [place] [address] Jul, [facility] [address] [facility] [id number] [place] [address] Jul, [facility] [address] [facility] [id number] [place] [address] Jul, [facility] [address] [facility] [id number] [place] [address] Jul, [facility] [address] [facility] [id number] [place] [address] Jul, [facility] [address] [facility] [id number] [place] [address] Jul, [facility] [address] [facility] [id number] [place] [address] Jul, [facility] [address] [facility] [id number] [place] [address] Jun, [facility] [address] [facility] [id number] [place] [address] Jun, [facility] [address] [facility] [id number] [place] [address] Jun, [facility] [address] [facility] [id number] [place] [address] Jun, [facility] [address] [facility] [id number] [place] [address] 30 May, 2011 [facility] [id number] [place] [address] 29 May, 2011 [facility] [address] [facility] [id number] [place] [address] May, [facility] [address] [facility] [id number] [place] [address] 08 May, 2011 [facility] [address] [facility] [id number] [place] [address] 31 Apr, 2011 [facility] [address] [facility] [id number] [place] [address] 31 Apr, 2011 [facility] [address] [facility] [id number] [place] [address] 10 Nov, 2010 [facility] [address] [facility] [id number] [place] [address] 18 Oct, 2010 [facility] [address] [facility] [id number] [place] [address] 17 Aug, 2010 [facility] [address] [facility] [id number] [place] [address] 28 Jun, 2010 [facility] [address] [facility] [id number] [place] [address] 28 Jun, 2010 [facility] [id number] [place] [address] 27 Jun, 2010 [facility] [address] [id number] [place] [address] 03 Jun, 2010 [facility] [address] [id number] [place] [address] 29 May, 2010 [facility] [address] [id number] [place] [address] 27 Apr, 2010 [facility] [address] [id number] [place] [address] 13 Oct, 2009 [facility] [address] [id number] [place] [address] 13 Aug, 2009 [facility] [address] [id number] [place] [address] Jul, [facility] [address] [id number] [place] [address] 22 Jun, 2009 [facility] [address] [id number] [place] [address] 16 Jun, 2009 [facility] [address] [id number] [place] [address] 14 Jun, 2009 [facility] [address] [id number] [place] [address] Jun, [facility] [address] [id number] [place] [address] May, [facility] [address] [id number] [place] [address] Apr, [facility] [address] [id number] [place] [address] 15 Mar, 2009 [facility] [address] [id number] [place] [address] 14 Mar, 2009 [facility] [address] [id number] [place] [address] Dec, IMMUNIZATIONS No Known Immunizations SOCIAL HISTORY Never Assessed REASON FOR VISIT PLAN OF CARE VITAL SIGNS Height 67 in 2013-12-15 Weight 186.6 lbs 2013-12-15 Temperature 96.9 degrees Fahrenheit 2013-12-15 Heart Rate 76 bpm 2013-12-15 Respiratory Rate 18 2013-12-15 Blood pressure systolic 110 mmHg 2013-12-15 Blood pressure diastolic 62 mmHg 2013-12-15 MEDICATIONS Unknown Medications RESULTS No Results PROCEDURES Procedure Date Ordered Result Body Site GLYCATED HEMOGLOBIN TEST December 15, 2013 INSTRUCTIONS MEDICATIONS ADMINISTERED No Known Medications [...]
--- OUTSIDE RECORDS SUMMARY | 2019-09-01 05:03 | XMS REPORT ---
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 [address] [id number] [address] [place] [phone] November, [facility], [place] [address] [id number] [address] [place] [id number] November, [facility], [place] [address] [id number] [address] [place] [id number] November, [facility], [place] [address] [id number] [address] [place] [id number] Oct, [facility], [place] [address] [id number] [address] [place] [phone] Oct, [facility], [place] [address] [id number] [address] [place] [id number] Sep, [facility], [place] [address] [id number] [facility] [place] [address] 30 Sep, 2014 [facility] [address] [id number] [address] [place] [address], [place] [address] Sep, [facility] [address] [id number] [facility] [place] [address] Sep, [facility] [address] [id number] [address] [place] [address], [place] [address] 16 Sep, 2014 [facility] [address] [id number] [address] [place] [address], [place] [address] 16 Sep, 2014 [facility] [address] [id number] [address] [place] [address], [place] [address] Sep, [facility] [address] [id number] [address] [place] [address], [place] [address] Sep, [facility] [address] [id number] [address] [place] [address], [place] [address] Sep, [facility] [address] [id number] [address] [place] [address], [place] [address] Sep, [facility] [address] [id number] [address] [place] [address], [place] [address] Sep, [facility] [address] [id number] [address] [place] [address], [place] [address] Sep, [facility] [address] [id number] [address] [place] [address], [place] [address] Sep, [facility] [address] [id number] [address] [place] [address], [place] [address] Sep, [facility] [address] [id number] [address] [place] [address], [place] [address] Sep, [facility] [address] [id number] [address] [place] [address], [place] [address] Aug, [facility] [address] [id number] [address] [place] [address], [place] [address] Aug, [facility] [address] [id number] [address] [place] [address], [place] [address] Aug, 2014 [facility] [address] [id number] [address] [place] [address], [place] [address] Aug, 2014 [facility] [address] [id number] [address] [place] [address], [place] [address] Aug, 2014 [facility] [address] [id number] [address] [place] [address], [place] [address] Aug, 2014 [facility] [address] [id number] [address] [place] [address], [place] [address] Aug, 2014 [facility] [address] [id number] [address] [place] [address], [place] [address] Aug, 2014 [facility] [address] [id number] [address] [place] [address], [place] [address] Aug, 2014 [facility] [address] [id number] [address] [place] [address], [place] [address] Aug, 2014 [facility] [address] [id number] [address] [place] [address], [place] [address] Aug, 2014 [facility] [address] [id number] [address] [place] [address], [place] [address] Aug, [facility] [address] [id number] [address] [place] [address], [place] [address] Jul, [facility] [address] [id number] [address] [place] [address], [place] [address] Jul, [facility] [address] [id number] [address] [place] [address], [place] [address] Jun, [facility] [address] [id number] [address] [place] [address], [place] [address] Jun, [facility] [address] [id number] [address] [place] [address], [place] [address] Jun, [facility] [address] [id number] [address] [place] [address], [place] [address] 31 Jun, 2014 [facility] [address] [id number] [address] [place] [address], [place] [address] Jun, [facility] [address] [id number] [address] [place] [address], [place] [address] Jun, [facility] [address] [id number] [address] [place] [address], [place] [address] Jun, [facility] [address] [id number] [address] [place] [address], [place] [address] Jun, [facility] [address] [id number] [address] [place] [address], [place] [address] Jun, [facility] [address] [id number] [address] [place] [address], [place] [address] Jun, [facility] [address] [id number] [address] [place] [address], [place] [address] Jun, [facility] [address] [id number] [address] [place] [address], [place] [address] 05 Jun, 2014 [facility] [address] [id number] [address] [place] [address], [place] [address] 05 Jun, 2014 [facility] [address] [id number] [address] [place] [address], [place] [address] Jun, [facility] [address] [id number] [address] [place] [address], [place] [address] Jun, [facility] [address] [id number] [address] [place] [address], [place] [address] Jun, [facility] [address] [id number] [address] [place] [address], [place] [address] Jun, [facility] [address] [id number] [address] [place] [address], [place] [address] Jun, [facility] [address] [id number] [address] [place] [address], [place] [address] Jun, [facility] [address] [id number] [address] [place] [address], [place] [address] Jun, [facility] [address] [id number] [address] [place] [address], [place] [address] Jun, [facility] [address] [id number] [address] [place] [address], [place] [address] May, [facility] [address] [id number] [address] [place] [address], [place] [address] May, [facility] [address] [id number] [address] [place] [address], [place] [address] May, [facility] [address] [id number] [address] [place] [address], [place] [address] May, [facility] [address] [id number] [address] [place] [address], [place] [address] Apr, [facility] [address] [id number] [address] [place] [address], [place] [address] Apr, [facility] [address] [id number] [address] [place] [address], [place] [address] Apr, [facility] [address] [id number] [address] [place] [address], [place] [address] Apr, [facility] [address] [id number] [address] [place] [address], [place] [address] Apr, [facility] [address] [id number] [address] [place] [address], [place] [address] Apr, [facility] [address] [id number] [address] [place] [address], [place] [address] Apr, [facility] [address] [id number] [address] [place] [address], [place] [address] Apr, [facility] [address] [id number] [address] [place] [address], [place] [address] Apr, [facility] [address] [id number] [address] [place] [address] [place] [address] Apr, [facility] [address] [id number] [address] [place] [address], [place] [address] 29 Mar, 2013 [facility] [address] [id number] [address] [place] [address], [place] [address] 29 Mar, 2013 [facility] [address] [id number] [address] [place] [address], [place] [address] Mar, 2013 [facility] [address] [id number] [address] [place] [address], [place] [address] 29 Mar, 2013 [facility] [address] [id number] [address] [place] [address], [place] [address] Mar, 2013 [facility] [address] [id number] [address] [place] [address], [place] [address] Mar, 2013 [facility] [address] [id number] [address] [place] [address], [place] [address] Mar, 2013 [facility] [address] [id number] [address] [place] [address], [place] [address] Mar, 2013 [facility] [address] [id number] [address] [place] [address], [place] [address] Mar, 2013 [facility] [address] [id number] [address] [place] [address], [place] [address] Mar, 2013 [facility] [address] [id number] [address] [place] [address], [place] [address] Mar, 2013 [facility] [address] [id number] [address] [place] [address], [place] [address] Mar, 2013 [facility] [address] [id number] [address] [place] [address], [place] [address] Feb, [facility] [address] [id number] [address] [place] [address], [place] [address] Feb, [facility] [address] [id number] [address] [place] [address], [place] [address] Jan, [facility] [address] [id number] [address] [place] [address], [place] [address] Jan, [facility] [address] [id number] [address] [place] [address], [place] [address] Jan, [facility] [address] [id number] [address] [place] [address], [place] [address] Jan, [facility] [address] [id number] [address] [place] [address], [place] [address] Dec, [facility] [address] [id number] [address] [place] [address], [place] [address] Dec, [facility] [address] [id number] [address] [place] [address], [place] [address] Dec, [facility] [address] [id number] [address] [place] [address], [place] [address] Dec, [facility] [address] [id number] [address] [place] [address], [place] [address] Dec, [facility] [address] [id number] [address] [place] [address], [place] [address] Dec, [facility] [address] [id number] [address] [place] [address], [place] [address] November, [facility] [address] [id number] [address] [place] [address], [place] [address] November, [facility] [address] [id number] [address] [place] [address], [place] [address] November, [facility] [address] [id number] [address] [place] [address], [place] [address] November, [facility] [address] [id number] [address] [place] [address], [place] [address] November, [facility] [address] [id number] [address] [place] [address], [place] [address] November, [address] [id number] November, [facility] [address] [id number] [address] [place] [address], [place] [address] November, [facility] [address] [id number] [address] [place] [address], [place] [address] November, [facility] [address] [id number] [address] [place] [address], [place] [address] November, [facility] [address] [id number] [address] [place] [address], [place] [address] November, [facility] [address] [id number] [address] [place] [address], [place] [address] November, [facility] [address] [id number] [address] [place] [address], [place] [address] Oct, [facility] [address] [id number] [address] [place] [address], [place] [address] Oct, [facility] [address] [id number] [address] [place] [address], [place] [address] Oct, [facility] [address] [id number] [address] [place] [address], [place] [address] Oct, [facility] [address] [id number] [address] [place] [address], [place] [address] Oct, [facility] [address] [id number] [address] [place] [address], [place] [address] Oct, [facility] [address] [id number] [address] [place] [address], [place] [address] Oct, [facility] [address] [id number] [address] [place] [address], [place] [address] Oct, [facility] [address] [id number] [address] [place] [address], [place] [address] Oct, [facility] [address] [id number] [address] [place] [address], [place] [address] Oct, [facility] [address] [id number] [address] [place] [address], [place] [address] Oct, [facility] [address] [id number] [address] [place] [address], [place] [address] Oct, [facility] [address] [id number] [address] [place] [address], [place] [address] Oct, [facility] [address] [id number] [address] [place] [address], [place] [address] Oct, [facility] [address] [id number] [address] [place] [address], [place] [address] Oct, [facility] [address] [id number] [address] [place] [address], [place] [address] Sep, [facility] [address] [id number] [address] [place] [address], [place] [address] Sep, [facility] [address] [id number] [address] [place] [address], [place] [address] Sep, [facility] [address] [id number] [address] [place] [address], [place] [address] Sep, [facility] [address] [id number] [address] [place] [address], [place] [address] Aug, [facility] [address] [id number] [address] [place] [address], [place] [address] Aug, [facility] [address] [id number] [address] [place] [address], [place] [address] Aug, [facility] [address] [id number] [address] [place] [address], [place] [address] Aug, [facility] [address] [id number] [address] [place] [address], [place] [address] Jul, [facility] [address] [id number] [address] [place] [address], [place] [address] Jul, [facility] [address] [id number] [address] [place] [address], [place] [address] Jul, [facility] [address] [id number] [address] [place] [address], [place] [address] Jul, [facility] [address] [id number] [address] [place] [address], [place] [address] Jul, [facility] [address] [id number] [address] [place] [address], [place] [address] Jul, [facility] [address] [id number] [address] [place] [address], [place] [address] Jul, [facility] [address] [id number] [address] [place] [address], [place] [address] Jul, [facility] [address] [id number] [address] [place] [address], [place] [address] Jul, [facility] [address] [id number] [address] [place] [address], [place] [address] Jul, [facility] [address] [id number] [address] [place] [address], [place] [address] Jul, [facility] [address] [id number] [address] [place] [address], [place] [address] Jul, [facility] [address] [id number] [address] [place] [address], [place] [address] Jul, [facility] [address] [id number] [address] [place] [address], [place] [address] Jul, [facility] [address] [id number] [address] [place] [address], [place] [address] Jun, [facility] [address] [id number] [address] [place] [address], [place] [address] Jun, [facility] [address] [id number] [address] [place] [address], [place] [address] Jun, [facility] [address] [id number] [address] [place] [address], [place] [address] Jun, [facility] [address] [id number] [address] [place] [address], [place] [address] May, [facility] [address] [id number] [address] [place] [address], [place] [address] May, [facility] [address] [id number] [address] [place] [address], [place] [address] May, [facility] [address] [id number] [address] [place] [address], [place] [address] May, [facility] [address] [id number] [address] [place] [address], [place] [address] May, [facility] [address] [id number] [address] [place] [address], [place] [address] May, [facility] [address] [id number] [address] [place] [address] May, [facility] [address] [id number] [address] [place] [address], [place] [address] May, [facility] [address] [id number] [address] [place] [address] Apr, [facility] [address] [id number] [address] [place] [address], [place] [address] Apr, [facility] [address] [id number] [address] [place] [address] Apr, [facility] [address] [id number] [address] [place] [address] Apr, [facility] [address] [id number] [address] [place] [address] Apr, [facility] [address] [id number] [address] [place] [address], [place] [address] Apr, [facility] [address] [id number] [address] [place] [address] 30 Mar, 2013 [facility] [address] [id number] [address] [place] [address] Mar, [facility] [address] [id number] [address] [place] [address], [place] [address] 20 Mar, 2013 [facility] [address] [id number] [address] [place] [address], [place] [address] 17 Mar, 2013 [facility] [address] [id number] [address] [place] [address], [place] [address] 16 Mar, 2013 [facility] [address] [id number] [address] [place] [address], [place] [address] 05 Mar, 2013 [facility] [address] [id number] [address] [place] [address], [place] [address] Feb, [facility] [address] [id number] [address] [place] [address], [place] [address] Feb, [facility] [address] [id number] [address] [place] [address], [place] [address] Feb, [facility] [address] [id number] [address] [place] [address], [place] [address] Feb, [facility] [address] [id number] [address] [place] [address], [place] [address] Jan, [facility] [address] [id number] [address] [place] [address], [place] [address] Jan, [facility] [address] [id number] [address] [place] [address], [place] [address] Jan, [facility] [address] [id number] [address] [place] [address], [place] [address] Jan, [facility] [address] [id number] [address] [place] [address], [place] [address] Jan, [facility] [address] [id number] [address] [place] [address], [place] [address] Dec, [facility] [address] [id number] [address] [place] [address], [place] [address] Dec, [facility] [address] [id number] [address] [place] [address], [place] [address] Dec, [facility] [address] [id number] [address] [place] [address], [place] [address] November, [facility] [address] [id number] [address] [place] [address], [place] [address] November, [facility] [address] [id number] [address] [place] [address], [place] [address] November, [facility] [address] [id number] [address] [place] [address], [place] [address] Oct, [facility] [address] [id number] [address] [place] [address], [place] [address] Oct, [facility] [address] [id number] [address] [place] [address], [place] [address] Oct, [facility] [address] [id number] [address] [place] [address], [place] [address] Oct, [facility] [address] [id number] [address] [place] [address], [place] [address] Oct, [facility] [address] [id number] [address] [place] [address], [place] [address] Oct, [facility] [address] [id number] [address] [place] [address], [place] [address] Oct, [facility] [address] [id number] [address] [place] [address], [place] [address] Sep, [facility] [address] [id number] [address] [place] [address], [place] [address] Sep, [facility] [address] [id number] [address] [place] [address], [place] [address] Sep, [facility] [address] [id number] [address] [place] [address], [place] [address] Sep, [facility] [address] [id number] [address] [place] [address], [place] [address] Aug, [facility] [address] [id number] [address] [place] [address], [place] [address] Aug, [facility] [address] [id number] [address] [place] [address], [place] [address] Aug, [facility] [address] [id number] [address] [place] [address], [place] [address] Aug, [facility] [address] [id number] [address] [place] [address], [place] [address] Aug, [facility] [address] [id number] [address] [place] [address], [place] [address] Aug, [facility] [address] [id number] [address] [place] [address], [place] [address] Jul, [facility] [address] [id number] [address] [place] [address], [place] [address] Jul, [facility] [address] [id number] [address] [place] [address], [place] [address] Jul, [facility] [address] [id number] [address] [place] [address], [place] [address] Jul, [facility] [address] [id number] [address] [place] [address], [place] [address] Jul, [facility] [address] [id number] [address] [place] [address], [place] [address] Jul, [facility] [address] [id number] [address] [place] [address], [place] [address] Jun, [facility] [address] [id number] [address] [place] [address], [place] [address] Jun, [facility] [address] [id number] [address] [place] [address], [place] [address] Jun, [facility] [address] [id number] [address] [place] [address], [place] [address] Jun, [facility] [address] [id number] [address] [place] [address], [place] [address] Jun, [facility] [address] [id number] [address] [place] [address], [place] [address] Jun, [facility] [address] [id number] [address] [place] [address], [place] [address] May, [facility] [address] [id number] [address] [place] [address], [place] [address] May, [facility] [address] [id number] [address] [place] [address], [place] [address] May, [facility] [address] [id number] [address] [place] [address], [place] [address] May, [facility] [address] [id number] [address] [place] [address], [place] [address] May, [facility] [address] [id number] [address] [place] [address], [place] [address] May, [facility] [address] [id number] [address] [place] [address], [place] [address] May, [facility] [address] [id number] [address] [place] [address], [place] [address] May, [facility] [address] [id number] [address] [place] [address], [place] [address] May, [facility] [address] [id number] [address] [place] [address], [place] [address] May, [facility] [address] [id number] [address] [place] [address], [place] [address] Apr, [facility] [address] [id number] [address] [place] [address], [place] [address] Apr, [facility] [address] [id number] [address] [place] [address], [place] [address] Apr, [facility] [address] [id number] [address] [place] [address], [place] [address] Apr, [facility] [address] [id number] [address] [place] [address], [place] [address] 16 Apr, 2012 [facility] [address] [id number] [address] [place] [address], [place] [address] 16 Apr, 2012 [facility] [address] [id number] [address] [place] [address], [place] [address] 15 Apr, 2012 [facility] [address] [id number] [address] [place] [address], [place] [address] 15 Apr, 2012 [facility] [address] [id number] [address] [place] [address], [place] [address] 05 Apr, 2012 [facility] [address] [id number] [address] [place] [address], [place] [address] 28 Mar, 2012 [facility] [address] [id number] [address] [place] [address], [place] [address] 26 Mar, 2012 [facility] [address] [id number] [address] [place] [address], [place] [address] 25 Mar, 2012 [facility] [address] [id number] [address] [place] [address], [place] [address] 19 Mar, 2012 [facility] [address] [id number] [address] [place] [address], [place] [address] 18 Mar, 2012 [facility] [address] [id number] [address] [place] [address], [place] [address] 05 Mar, 2012 [facility] [address] [id number] [address] [place] [address], [place] [address] 28 Feb, 2012 [facility] [address] [id number] [address] [place] [address], [place] [address] Feb, [facility] [address] [id number] [address] [place] [address], [place] [address] Feb, [facility] [address] [id number] [address] [place] [address], [place] [address] Jan, [facility] [address] [id number] [address] [place] [address], [place] [address] Jan, [facility] [address] [id number] [address] [place] [address], [place] [address] Jan, [facility] [address] [id number] [address] [place] [address], [place] [address] Jan, [facility] [address] [id number] [address] [place] [address], [place] [address] Dec, [facility] [address] [id number] [address] [place] [address], [place] [address] November, [facility] [address] [id number] [address] [place] [address], [place] [address] November, [facility] [address] [id number] [address] [place] [address], [place] [address] November, [facility] [address] [id number] [address] [place] [address], [place] [address] November, [facility] [address] [id number] [address] [place] [address], [place] [address] November, [facility] [address] [id number] [address] [place] [address], [place] [address] November, [facility] [address] [id number] [address] [place] [address], [place] [address] Oct, [facility] [address] [id number] [address] [place] [address], [place] [address] Oct, [facility] [address] [id number] [address] [place] [address], [place] [address] Sep, [facility] [address] [id number] [address] [place] [address], [place] [address] Sep, [facility] [address] [id number] [address] [place] [address], [place] [address] Sep, [facility] [address] [id number] [address] [place] [address], [place] [address] Aug, [facility] [address] [id number] [address] [place] [address], [place] [address] Aug, [facility] [address] [id number] [address] [place] [address], [place] [address] 14 Aug, 2011 [facility] [address] [id number] [address] [place] [address], [place] [address] Aug, [facility] [address] [id number] [address] [place] [address], [place] [address] Aug, [facility] [address] [id number] [address] [place] [address], [place] [address] Aug, [facility] [address] [id number] [address] [place] [address], [place] [address] Jul, [facility] [address] [id number] [address] [place] [address], [place] [address] Jul, [facility] [address] [id number] [address] [place] [address], [place] [address] Jul, [facility] [address] [id number] [address] [place] [address], [place] [address] Jul, [facility] [address] [id number] [address] [place] [address], [place] [address] Jul, [facility] [address] [id number] [address] [place] [address], [place] [address] Jul, [facility] [address] [id number] [address] [place] [address], [place] [address] Jul, [facility] [address] [id number] [address] [place] [address], [place] [address] Jul, [facility] [address] [id number] [address] [place] [address], [place] [address] Jul, [facility] [address] [id number] [address] [place] [address], [place] [address] Jul, [facility] [address] [id number] [address] [place] [address], [place] [address] Jun, [facility] [address] [id number] [address] [place] [address], [place] [address] Jun, [facility] [address] [id number] [address] [place] [address], [place] [address] Jun, [facility] [address] [id number] [address] [place] [address], [place] [address] Jun, [facility] [address] [id number] [address] [place] [address], [place] [address] 30 May, 2011 [facility] [address] [id number] [address] [place] [address], [place] [address] May, [facility] [address] [id number] [address] [place] [address], [place] [address] May, [facility] [address] [id number] [address] [place] [address], [place] [address] May, [facility] [address] [id number] [address] [place] [address], [place] [address] Apr, [facility] [address] [id number] [address] [place] [address], [place] [address] Apr, [facility] [address] [id number] [address] [place] [address], [place] [address] November, [facility] [address] [id number] [address] [place] [address], [place] [address] Oct, [facility] [address] [id number] [address] [place] [address], [place] [address] Aug, [facility] [address] [id number] [address] [place] [address], [place] [address] Jun, [facility] [address] [id number] [address] [place] [address], [place] [address] Jun, [facility] [address] [id number] [address] [place] [address], [place] [address] Jun, [facility] [address] [id number] [address] [place] [address], [place] [address] Jun, [facility] [place] [address] [id number] [address] [place] [address] 29 May, 2010 [facility] [place] [address] [id number] [address] [place] [address] 27 Apr, 2010 [facility] [place] [address] [id number] [address] [place] [address] Oct, [facility] [place] [address] [id number] [address] [place] [address] Aug, [facility] [place] [address] [id number] [address] [place] [address] Jul, [facility] [place] [address] [id number] [address] [place] [address] Jun, [facility] [place] [address] [id number] [address] [place] [id number] 16 Jun, 2009 [facility] [place] [address] [address] [id number] [address] [place] [id number] 14 Jun, 2009 [facility], [place] [address] [id number] [address] [place] [id number] Jun, [facility], [place] [address] [id number] [address] [place] [id number] May, [facility], [place] [address] [id number] [address] [place] [id number] 20 Apr, 2009 [facility], [place] [address] [id number] [address] [place] [id number] 15 Mar, 2009 [facility], [place] [address] [id number] [address] [place] [phone] 14 Mar, 2009 [facility], [place] [address] [id number] [address] [place] [id number] Dec, IMMUNIZATIONS No Known Immunizations SOCIAL HISTORY [...]
--- OUTSIDE RECORDS SUMMARY | 2019-09-01 05:03 | XMS REPORT ---
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 [id number] [address] [place] [address], [place] [address] Aug, 2014 [facility] [address] [id number] [address] [place] [address], [place] [address] Aug, 2014 [facility] [address] [id number] [address] [place] [address], [place] [address] Aug, 2014 [facility] [address] [id number] [address] [place] [address], [place] [address] Aug, 2014 [facility] [address] [id number] [address] [place] [address], [place] [address] Aug, 2014 [facility] [address] [id number] [address] [place] [address], [place] [address] Aug, 2014 [facility] [address] [id number] [address] [place] [address], [place] [address] Aug, 2014 [facility] [address] [id number] [address] [place] [address], [place] [address] Jul, [facility] [address] [id number] [address] [place] [address], [place] [address] Jul, [facility] [address] [id number] [address] [place] [address], [place] [address] Jun, [facility] [address] [id number] [address] [place] [address], [place] [address] Jun, [facility] [address] [id number] [address] [place] [address], [place] [address] Jun, [facility] [address] [id number] [address] [place] [address], [place] [address] Jun, [facility] [address] [id number] [address] [place] [address], [place] [address] Jun, [facility] [address] [id number] [address] [place] [address], [place] [address] 31 Jun, 2014 [facility] [address] [id number] [address] [place] [address], [place] [address] Jun, [facility] [address] [id number] [address] [place] [address], [place] [address] Jun, [facility] [address] [id number] [address] [place] [address], [place] [address] Jun, [facility] [address] [id number] [address] [place] [address], [place] [address] 16 Jun, 2014 [facility] [address] [id number] [address] [place] [address], [place] [address] Jun, [facility] [address] [id number] [address] [place] [address], [place] [address] 05 Jun, 2014 [facility] [address] [id number] [address] [place] [address], [place] [address] 05 Jun, 2014 [facility] [address] [id number] [address] [place] [address], [place] [address] Jun, [facility] [address] [id number] [address] [place] [address], [place] [address] Jun, [facility] [address] [id number] [address] [place] [address], [place] [address] Jun, [facility] [address] [id number] [address] [place] [address], [place] [address] Jun, [facility] [address] [id number] [address] [place] [address], [place] [address] Jun, [facility] [address] [id number] [address] [place] [address], [place] [address] Jun, [facility] [address] [id number] [address] [place] [address], [place] [address] Jun, [facility] [address] [id number] [address] [place] [address], [place] [address] Jun, [facility] [address] [id number] [address] [place] [address], [place] [address] May, [facility] [address] [id number] [address] [place] [address], [place] [address] May, [facility] [address] [id number] [address] [place] [address], [place] [address] May, [facility] [address] [id number] [address] [place] [address], [place] [address] May, [facility] [address] [id number] [address] [place] [address], [place] [address] Apr, [facility] [address] [id number] [address] [place] [address], [place] [address] Apr, [facility] [address] [id number] [address] [place] [address], [place] [address] Apr, [facility] [address] [id number] [address] [place] [address], [place] [address] Apr, [facility] [address] [id number] [address] [place] [address], [place] [address] Apr, [facility] [address] [id number] [address] [place] [address], [place] [address] Apr, [facility] [address] [id number] [address] [place] [address], [place] [address] Apr, [facility] [address] [id number] [address] [place] [address] Apr, [facility] [address] [id number] [address] [place] [address], [place] [address] Apr, [facility] [address] [id number] [address] [place] [address], [place] [address] Apr, [facility] [address] [id number] [address] [place] [address], [place] [address] Mar, [facility] [address] [id number] [address] [place] [address] [place] [address] 29 Mar, 2013 [facility] [address] [id number] [facility] [place] [address] 29 Mar, 2013 [facility] [address] [id number] [address] [place] [address], [place] [address] 29 Mar, 2013 [facility] [address] [id number] [address] [place] [address], [place] [address] 10 Mar, 2013 [facility] [address] [id number] [address] [place] [address], [place] [address] 10 Mar, 2013 [facility] [address] [id number] [address] [place] [address], [place] [address] Mar, 2013 [facility] [address] [id number] [address] [place] [address], [place] [address] Mar, 2013 [facility] [address] [id number] [address] [place] [address], [place] [address] Mar, 2013 [facility] [address] [id number] [address] [place] [address], [place] [address] Mar, 2013 [facility] [address] [id number] [address] [place] [address], [place] [address] Mar, 2013 [facility] [address] [id number] [address] [place] [address], [place] [address] Mar, 2013 [facility] [address] [id number] [address] [place] [address], [place] [address] Feb, [facility] [address] [id number] [address] [place] [address], [place] [address] Feb, [facility] [address] [id number] [address] [place] [address], [place] [address] Jan, [facility] [address] [id number] [address] [place] [address], [place] [address] Jan, [facility] [address] [id number] [address] [place] [address], [place] [address] Jan, [facility] [address] [id number] [address] [place] [address], [place] [address] Jan, [facility] [address] [id number] [address] [place] [address], [place] [address] Dec, [facility] [address] [id number] [address] [place] [address], [place] [address] Dec, [facility] [address] [id number] [address] [place] [address], [place] [address] Dec, [facility] [address] [id number] [address] [place] [address], [place] [address] Dec, [facility] [address] [id number] [address] [place] [address], [place] [address] Dec, [facility] [address] [id number] [address] [place] [address], [place] [address] Dec, [facility] [address] [id number] [address] [place] [address], [place] [address] November, [facility] [address] [id number] [address] [place] [address], [place] [address] November, [facility] [address] [id number] [address] [place] [address], [place] [address] November, [facility] [address] [id number] [address] [place] [address], [place] [address] November, [facility] [address] [id number] [address] [place] [address], [place] [address] November, [facility] [address] [id number] [address] [place] [address], [place] [address] November, [facility] [address] [place], [place] [id number] November, [facility] [address] [id number] [address] [place] [address], [place] [address] November, [facility] [address] [id number] [address] [place] [address], [place] [address] November, [facility] [address] [id number] [address] [place] [address], [place] [address] November, [facility] [address] [id number] [address] [place] [address], [place] [address] November, [facility] [address] [id number] [address] [place] [address], [place] [address] November, [facility] [address] [id number] [address] [place] [address], [place] [address] Oct, [facility] [address] [id number] [address] [place] [address], [place] [address] Oct, [facility] [address] [id number] [address] [place] [address], [place] [address] Oct, [facility] [address] [id number] [address] [place] [address], [place] [address] Oct, [facility] [address] [id number] [address] [place] [address], [place] [address] Oct, [facility] [address] [id number] [address] [place] [address], [place] [address] Oct, [facility] [address] [id number] [address] [place] [address], [place] [address] Oct, [facility] [address] [id number] [address] [place] [address], [place] [address] Oct, [facility] [address] [id number] [address] [place] [address], [place] [address] Oct, [facility] [address] [id number] [address] [place] [address], [place] [address] Oct, [facility] [address] [id number] [address] [place] [address], [place] [address] Oct, [facility] [address] [id number] [address] [place] [address], [place] [address] Oct, [facility] [address] [id number] [address] [place] [address], [place] [address] Oct, [facility] [address] [id number] [facility] [place] [address] Oct, [facility] [address] [id number] [address] [place] [address], [place] [address] Oct, [facility] [address] [id number] [address] [place] [address], [place] [address] Sep, [facility] [address] [id number] [address] [place] [address], [place] [address] Sep, [facility] [address] [id number] [address] [place] [address], [place] [address] Sep, [facility] [address] [id number] [address] [place] [address], [place] [address] Sep, [facility] [address] [id number] [address] [place] [address], [place] [address] Aug, [facility] [address] [id number] [address] [place] [address], [place] [address] Aug, [facility] [address] [id number] [address] [place] [address], [place] [address] Aug, [facility] [address] [id number] [address] [place] [address], [place] [address] Aug, [facility] [address] [id number] [address] [place] [address], [place] [address] Jul, [facility] [address] [id number] [address] [place] [address], [place] [address] Jul, [facility] [address] [id number] [address] [place] [address], [place] [address] Jul, [facility] [address] [id number] [address] [place] [address], [place] [address] Jul, [facility] [address] [id number] [address] [place] [address], [place] [address] Jul, [facility] [address] [id number] [address] [place] [address], [place] [address] Jul, [facility] [address] [id number] [address] [place] [address], [place] [address] Jul, [facility] [address] [id number] [address] [place] [address], [place] [address] Jul, [facility] [address] [id number] [address] [place] [address], [place] [address] Jul, [facility] [address] [id number] [address] [place] [place] [address], [place] [address] Jul, [facility] [address] [id number] [address] [place] [address], [place] [address] Jul, [facility] [address] [id number] [address] [place] [address], [place] [address] Jul, [facility] [address] [id number] [address] [place] [address], [place] [address] Jul, [facility] [address] [id number] [address] [place] [address], [place] [address] Jul, [facility] [address] [id number] [address] [place] [address], [place] [address] Jun, [facility] [address] [id number] [address] [place] [address], [place] [address] Jun, [facility] [address] [id number] [address] [place] [address], [place] [address] Jun, [facility] [address] [id number] [address] [place] [address], [place] [address] Jun, [facility] [address] [id number] [address] [place] [address], [place] [address] May, [facility] [address] [id number] [address] [place] [address], [place] [address] May, [facility] [address] [id number] [address] [place] [address], [place] [address] May, [facility] [address] [id number] [address] [place] [address], [place] [address] May, [facility] [address] [id number] [address] [place] [address], [place] [address] May, [facility] [address] [id number] [address] [place] [address], [place] [address] May, [facility] [address] [id number] [address] [place] [address], [place] [address] May, [facility] [address] [id number] [address] [place] [address], [place] [address] May, [facility] [address] [id number] [address] [place] [address], [place] [address] Apr, [facility] [address] [id number] [address] [place] [address], [place] [address] Apr, [facility] [address] [id number] [address] [place] [address] Apr, [facility] [address] [id number] [address] [place] [address], [place] [address] Apr, [facility] [address] [id number] [address] [place] [address] Apr, [facility] [address] [id number] [address] [place] [address] Apr, [facility] [address] [id number] [address] [place] [address] 30 Mar, 2013 [facility] [address] [id number] [address] [place] [address], [place] [address] 26 Mar, 2013 [facility] [address] [id number] [address] [place] [address], [place] [address] 20 Mar, 2013 [facility] [address] [id number] [address] [place] [address], [place] [address] 17 Mar, 2013 [facility] [address] [id number] [address] [place] [address], [place] [address] 16 Mar, 2013 [facility] [address] [id number] [address] [place] [address], [place] [address] Mar, [facility] [address] [id number] [address] [place] [address], [place] [address] Feb, [facility] [address] [id number] [address] [place] [address], [place] [address] Feb, [facility] [address] [id number] [address] [place] [address], [place] [address] Feb, [facility] [address] [id number] [address] [place] [address], [place] [address] Feb, [facility] [address] [id number] [address] [place] [address], [place] [address] Jan, [facility] [address] [id number] [address] [place] [address], [place] [address] Jan, [facility] [address] [id number] [address] [place] [address], [place] [address] Jan, [facility] [address] [id number] [address] [place] [address], [place] [address] Jan, [facility] [address] [id number] [address] [place] [address], [place] [address] Jan, [facility] [address] [id number] [address] [place] [address], [place] [address] Dec, [facility] [address] [id number] [address] [place] [address], [place] [address] Dec, [facility] [address] [id number] [address] [place] [address], [place] [address] Dec, [facility] [address] [id number] [address] [place] [address], [place] [address] November, [facility] [address] [id number] [address] [place] [address], [place] [address] November, [facility] [address] [id number] [address] [place] [address], [place] [address] November, [facility] [address] [id number] [address] [place] [address], [place] [address] Oct, [facility] [address] [id number] [address] [place] [address], [place] [address] Oct, [facility] [address] [id number] [address] [place] [address], [place] [address] Oct, [facility] [address] [id number] [address] [place] [address], [place] [address] Oct, [facility] [address] [id number] [address] [place] [address], [place] [address] Oct, [facility] [address] [id number] [address] [place] [address], [place] [address] Oct, [facility] [address] [id number] [address] [place] [address], [place] [address] Oct, [facility] [address] [id number] [address] [place] [address], [place] [address] Sep, [facility] [address] [id number] [address] [place] [address], [place] [address] Sep, [facility] [address] [id number] [address] [place] [address], [place] [address] Sep, [facility] [address] [id number] [address] [place] [address], [place] [address] Sep, [facility] [address] [id number] [address] [place] [address], [place] [address] Aug, [facility] [address] [id number] [address] [place] [address], [place] [address] Aug, [facility] [address] [id number] [address] [place] [address], [place] [address] Aug, [facility] [address] [id number] [address] [place] [address] Aug, [facility] [address] [id number] [address] [place] [address], [place] [address] Aug, [facility] [address] [id number] [address] [place] [address], [place] [address] Aug, [facility] [address] [id number] [address] [place] [address], [place] [address] Jul, [facility] [address] [id number] [address] [place] [address], [place] [address] Jul, [facility] [address] [id number] [address] [place] [address], [place] [address] Jul, [facility] [address] [id number] [address] [place] [address], [place] [address] Jul, [facility] [address] [id number] [address] [place] [address], [place] [address] Jul, [facility] [address] [id number] [address] [place] [address], [place] [address] Jul, [facility] [address] [id number] [address] [place] [address], [place] [address] Jun, [facility] [address] [id number] [address] [place] [address], [place] [address] Jun, [facility] [address] [id number] [address] [place] [address], [place] [address] Jun, [facility] [address] [id number] [address] [place] [address], [place] [address] Jun, [facility] [address] [id number] [address] [place] [address], [place] [address] Jun, [facility] [address] [id number] [address] [place] [address], [place] [address] Jun, [facility] [address] [id number] [address] [place] [address], [place] [address] May, [facility] [address] [id number] [address] [place] [address], [place] [address] May, [facility] [address] [id number] [address] [place] [address], [place] [address] May, [facility] [address] [id number] [address] [place] [address], [place] [address] May, [facility] [address] [id number] [address] [place] [address], [place] [address] May, [facility] [address] [id number] [address] [place] [address], [place] [address] May, [facility] [address] [id number] [address] [place] [address], [place] [address] May, [facility] [address] [id number] [address] [place] [address], [place] [address] May, [facility] [address] [id number] [address] [place] [address], [place] [address] May, [facility] [address] [id number] [address] [place] [address], [place] [address] May, [facility] [address] [id number] [address] [place] [address], [place] [address] Apr, [facility] [address] [id number] [address] [place] [address], [place] [address] 31 Apr, 2012 [facility] [address] [id number] [address] [place] [address], [place] [address] Apr, [facility] [address] [id number] [address] [place] [address], [place] [address] 23 Apr, 2012 [facility] [address] [id number] [address] [place] [address], [place] [address] 16 Apr, 2012 [facility] [address] [id number] [address] [place] [address], [place] [address] 16 Apr, 2012 [facility] [address] [id number] [address] [place] [address], [place] [address] 15 Apr, 2012 [facility] [address] [id number] [address] [place] [address], [place] [address] 15 Apr, 2012 [facility] [address] [id number] [address] [place] [address], [place] [address] 05 Apr, 2012 [facility] [address] [id number] [address] [place] [address], [place] [address] 28 Mar, 2012 [facility] [address] [id number] [address] [place] [address], [place] [address] 26 Mar, 2012 [facility] [address] [id number] [address] [place] [address], [place] [address] 25 Mar, 2012 [facility] [address] [id number] [address] [place] [address], [place] [address] 19 Mar, 2012 [facility] [address] [id number] [address] [place] [address], [place] [address] 18 Mar, 2012 [facility] [address] [id number] [address] [place] [address], [place] [address] 05 Mar, 2012 [facility] [address] [id number] [address] [place] [address], [place] [address] Feb, [facility] [address] [id number] [address] [place] [address], [place] [address] Feb, [facility] [address] [id number] [address] [place] [address], [place] [address] Feb, [facility] [address] [id number] [address] [place] [address], [place] [address] Jan, [facility] [address] [id number] [address] [place] [address], [place] [address] Jan, [facility] [address] [id number] [address] [place] [address], [place] [address] Jan, [facility] [address] [id number] [address] [place] [address], [place] [address] Jan, [facility] [address] [id number] [address] [place] [address], [place] [address] Dec, [facility] [address] [id number] [address] [place] [address], [place] [address] November, [facility] [address] [id number] [address] [place] [address], [place] [address] November, [facility] [address] [id number] [address] [place] [address], [place] [address] November, [facility] [address] [id number] [address] [place] [address], [place] [address] November, [facility] [address] [id number] [address] [place] [address], [place] [address] November, [facility] [address] [id number] [address] [place] [address], [place] [address] November, [facility] [address] [id number] [address] [place] [address], [place] [address] Oct, [facility] [address] [id number] [address] [place] [address], [place] [address] Oct, [facility] [address] [id number] [address] [place] [address], [place] [address] Sep, [facility] [address] [id number] [address] [place] [address], [place] [address] Sep, [facility] [address] [id number] [address] [place] [address], [place] [address] Sep, [facility] [address] [id number] [address] [place] [address], [place] [address] Aug, [facility] [address] [id number] [address] [place] [address], [place] [address] Aug, [facility] [address] [id number] [address] [place] [address], [place] [address] 14 Aug, 2011 [facility] [address] [id number] [address] [place] [address], [place] [address] Aug, [facility] [address] [id number] [address] [place] [address], [place] [address] Aug, [facility] [address] [id number] [address] [place] [address], [place] [address] Aug, [facility] [address] [id number] [address] [place] [address], [place] [address] Jul, [facility] [address] [id number] [address] [place] [address], [place] [address] Jul, [facility] [address] [id number] [address] [place] [address], [place] [address] Jul, [facility] [address] [id number] [address] [place] [address], [place] [address] Jul, [facility] [address] [id number] [address] [place] [address], [place] [address] Jul, [facility] [address] [id number] [address] [place] [address], [place] [address] Jul, [facility] [address] [id number] [address] [place] [address], [place] [address] Jul, [facility] [address] [id number] [address] [place] [address], [place] [address] Jul, [facility] [address] [id number] [address] [place] [address], [place] [address] Jul, [facility] [address] [id number] [address] [place] [address], [place] [address] Jul, [facility] [address] [id number] [address] [place] [address], [place] [address] Jun, [facility] [address] [id number] [address] [place] [address], [place] [address] Jun, [facility] [address] [id number] [address] [place] [address], [place] [address] Jun, [facility] [address] [id number] [address] [place] [address], [place] [address] 27 Jun, 2011 [facility] [address] [id number] [address] [place] [address], [place] [address] 30 May, 2011 [facility] [address] [id number] [address] [place] [address], [place] [address] 29 May, 2011 [facility] [address] [id number] [address] [place] [address], [place] [address] 22 May, 2011 [facility] [address] [id number] [address] [place] [address], [place] [address] 08 May, 2011 [facility] [address] [id number] [address] [place] [address], [place] [address] 31 Apr, 2011 [facility] [address] [id number] [address] [place] [address], [place] [address] 31 Apr, 2011 [facility] [address] [id number] [address] [place] [address], [place] [address] November, [facility] [address] [id number] [address] [place] [address], [place] [address] 18 Oct, 2010 [facility] [address] [id number] [address] [place] [address], [place] [address] 17 Aug, 2010 [facility] [address] [id number] [address] [place] [address], [place] [address] 28 Jun, 2010 [facility] [address] [id number] [address] [place] [address], [place] [address] 28 Jun, 2010 [facility] [address] [id number] [address] [place] [address], [place] [address] Jun, [facility] [address] [id number] [address] [place] [address], [place] [address] 03 Jun, 2010 [facility] [address] [id number] [address] [place] [address], [place] [phone] 29 May, 2010 [facility] [address] [id number] [address] [place] [address], [place] [phone] [address], [address] [facility] [address] [id number] [address] [place] [phone] Oct, [facility] [address] [id number] [address] [place] [id number] 13 Aug, 2009 [facility] [address] [id number] [address] [place] [phone] Jul, [facility] [address] [id number] [address] [place] [phone] Jun, [facility] [address] [id number] [address] [place] [phone] [address] Jun, [address] [facility] [address] [id number] [address] [place] [id number] Jun, [facility] [address] [id number] [address] [place] [phone] Jun, [facility] [address] [id number] [address] [place] [phone] May, [facility] [address] [id number] [address] [place] [phone] Apr, [facility] [address] [id number] [address] [place] [id number] 15 Mar, 2009 [facility] [address] [id number] [address] [place] [phone] 14 Mar, 2009 [facility] [address] [id number] [address] [place] [phone] Dec, IMMUNIZATIONS No Known Immunizations SOCIAL HISTORY [...] orthopedic surgery-left ankle surgery fr om fall 1985 Surgical History gallbladder removed Surgical History tubal ligation Surgical History Right shoulder fatty tumor removal Surgical History shot in hip Surgical History hip replacement 03/2018 Hospitalization History Hospitalization for surgery and [facility] hs
--- OUTSIDE RECORDS SUMMARY | 2019-09-01 05:04 | XMS REPORT ---
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 [facility] [address] [id number] [address] [place] [address], [place] [address] Aug, 2014 [facility] [address] [id number] [address] [place] [address], [place] [address] Aug, 2014 [facility] [address] [id number] [address] [place] [address], [place] [address] Aug, 2014 [facility] [address] [id number] [address] [place] [address], [place] [address] Aug, 2014 [facility] [address] [id number] [address] [place] [address], [place] [address] Aug, 2014 [facility] [address] [id number] [address] [place] [address], [place] [address] Jul, [facility] [address] [id number] [address] [place] [address], [place] [address] Jul, [facility] [address] [id number] [address] [place] [address], [place] [address] Jun, [facility] [address] [id number] [address] [place] [address], [place] [address] Jun, [facility] [address] [id number] [address] [place] [address], [place] [address] Jun, [facility] [address] [id number] [address] [place] [address], [place] [address] Jun, [facility] [address] [id number] [address] [place] [address], [place] [address] Jun, [facility] [address] [id number] [address] [place] [address], [place] [address] Jun, [facility] [address] [id number] [address] [place] [address], [place] [address] Jun, [facility] [address] [id number] [address] [place] [address], [place] [address] Jun, [facility] [address] [id number] [address] [place] [address], [place] [address] Jun, [facility] [address] [id number] [address] [place] [address], [place] [address] Jun, [facility] [address] [id number] [address] [place] [address], [place] [address] Jun, [facility] [address] [id number] [address] [place] [address], [place] [address] Jun, [facility] [address] [id number] [address] [place] [address], [place] [address] Jun, [facility] [address] [id number] [address] [place] [address], [place] [address] Jun, [facility] [address] [id number] [address] [place] [address], [place] [address] Jun, [facility] [address] [id number] [address] [place] [address], [place] [address] Jun, [facility] [address] [id number] [address] [place] [address], [place] [address] Jun, [facility] [address] [id number] [address] [place] [address], [place] [address] Jun, [facility] [address] [id number] [address] [place] [address], [place] [address] Jun, [facility] [address] [id number] [address] [place] [address], [place] [address] Jun, [facility] [address] [id number] [address] [place] [address], [place] [address] Jun, [facility] [address] [id number] [address] [place] [address], [place] [address] May, [facility] [address] [id number] [address] [place] [address], [place] [address] May, [facility] [address] [id number] [address] [place] [address], [place] [address] May, [facility] [address] [id number] [address] [place] [address], [place] [address] May, [facility] [address] [id number] [address] [place] [address], [place] [address] Apr, [facility] [address] [id number] [address] [place] [address], [place] [address] Apr, [facility] [address] [id number] [address] [place] [address], [place] [address] Apr, [facility] [address] [id number] [address] [place] [address], [place] [address] Apr, [facility] [address] [id number] [address] [place] [address], [place] [address] Apr, [facility] [address] [id number] [address] [place] [address], [place] [address] Apr, [facility] [address] [id number] [address] [place] [address], [place] [address] Apr, [facility] [address] [id number] [address] [place] [address], [place] [address] Apr, [facility] [address] [id number] [address] [place] [address], [place] [address] Apr, [facility] [address] [id number] [address] [place] [address] Apr, [facility] [address] [id number] [address] [place] [address], [place] [address] Mar, [facility] [address] [id number] [address] [place] [address], [place] [address] Mar, [facility] [address] [id number] [address] [place] [address], [place] [address] Mar, [facility] [address] [id number] [facility] [place] [address] 29 Mar, 2013 [facility] [address] [id number] [facility] [place] [address] 10 Mar, 2013 [facility] [address] [id number] [address] [place] [address], [place] [address] 10 Mar, 2013 [facility] [address] [id number] [address] [place] [address], [place] [address] 04 Mar, 2013 [facility] [address] [id number] [address] [place] [address], [place] [address] 04 Mar, 2013 [facility] [address] [id number] [address] [place] [address], [place] [address] Mar, 2013 [facility] [address] [id number] [address] [place] [address], [place] [address] Mar, 2013 [facility] [address] [id number] [address] [place] [address], [place] [address] Mar, 2013 [facility] [address] [id number] [address] [place] [address], [place] [address] Mar, 2013 [facility] [address] [id number] [address] [place] [address], [place] [address] Feb, [facility] [address] [id number] [address] [place] [address], [place] [address] Feb, [facility] [address] [id number] [address] [place] [address], [place] [address] Jan, [facility] [address] [id number] [address] [place] [address], [place] [address] Jan, [facility] [address] [id number] [address] [place] [address], [place] [address] Jan, [facility] [address] [id number] [address] [place] [address], [place] [address] Jan, [facility] [address] [id number] [address] [place] [address], [place] [address] Dec, [facility] [address] [id number] [address] [place] [address], [place] [address] Dec, [facility] [address] [id number] [address] [place] [address], [place] [address] Dec, [facility] [address] [id number] [address] [place] [address], [place] [address] Dec, [facility] [address] [id number] [address] [place] [address], [place] [address] Dec, [facility] [address] [id number] [address] [place] [address], [place] [address] Dec, [facility] [address] [id number] [address] [place] [address], [place] [address] November, [facility] [address] [id number] [address] [place] [address], [place] [address] November, [facility] [address] [id number] [address] [place] [address], [place] [address] November, [facility] [address] [id number] [address] [place] [address], [place] [address] November, [facility] [address] [id number] [address] [place] [address], [place] [address] November, [facility] [address] [id number] [address] [place] [address], [place] [address] November, Via [address] [id number] November, [facility] [address] [id number] [address] [place] [address], [place] [address] November, [facility] [address] [id number] [address] [place] [address], [place] [address] November, [facility] [address] [id number] [address] [place] [address], [place] [address] November, [facility] [address] [id number] [address] [place] [address], [place] [address] November, [facility] [address] [id number] [facility] [place] [address] November, [facility] [address] [id number] [address] [place] [address], [place] [address] Oct, [facility] [address] [id number] [address] [place] [address], [place] [address] Oct, [facility] [address] [id number] [address] [place] [address], [place] [address] Oct, [facility] [address] [id number] [address] [place] [address], [place] [address] Oct, [facility] [address] [id number] [address] [place] [address], [place] [address] Oct, [facility] [address] [id number] [address] [place] [address], [place] [address] Oct, [facility] [address] [id number] [address] [place] [address], [place] [address] Oct, [facility] [address] [id number] [address] [place] [address], [place] [address] Oct, [facility] [address] [id number] [address] [place] [address], [place] [address] Oct, [facility] [address] [id number] [address] [place] [address], [place] [address] Oct, [facility] [address] [id number] [address] [place] [address], [place] [address] Oct, [facility] [address] [id number] [address] [place] [address], [place] [address] Oct, [facility] [address] [id number] [address] [place] [address], [place] [address] Oct, [facility] [address] [id number] [address] [place] [address], [place] [address] Oct, [facility] [address] [id number] [facility] [place] [address] Oct, [facility] [address] [id number] [address] [place] [address], [place] [address] Sep, [facility] [address] [id number] [facility] [place] [address] Sep, [facility] [address] [id number] [address] [place] [address], [place] [address] Sep, [facility] [address] [id number] [address] [place] [address], [place] [address] Sep, [facility] [address] [id number] [address] [place] [address], [place] [address] Aug, [facility] [address] [id number] [address] [place] [address], [place] [address] Aug, [facility] [address] [id number] [address] [place] [address], [place] [address] Aug, [facility] [address] [address] [id number] [address] [place] [address], [place] [address] Aug, [facility] [address] [id number] [address] [place] [address], [place] [address] Jul, [facility] [address] [id number] [address] [place] [address], [place] [address] Jul, [facility] [address] [id number] [address] [place] [address], [place] [address] Jul, [facility] [address] [id number] [address] [place] [address], [place] [address] Jul, [facility] [address] [id number] [address] [place] [address], [place] [address] Jul, [facility] [address] [id number] [address] [place] [address], [place] [address] Jul, [facility] [address] [id number] [address] [place] [address], [place] [address] Jul, [facility] [address] [id number] [address] [place] [address], [place] [address] Jul, [facility] [address] [id number] [address] [place] [address], [place] [address] Jul, [facility] [address] [id number] [address] [place] [address], [place] [address] Jul, [facility] [address] [id number] [address] [place] [address], [place] [address] Jul, [facility] [address] [id number] [address] [place] [address], [place] [address] Jul, [facility] [address] [id number] [address] [place] [address], [place] [address] Jul, [facility] [address] [id number] [address] [place] [address], [place] [address] Jul, [facility] [address] [id number] [address] [place] [address], [place] [address] Jun, [facility] [address] [id number] [address] [place] [address], [place] [address] Jun, [facility] [address] [id number] [address] [place] [address], [place] [address] Jun, [facility] [address] [id number] [address] [place] [address], [place] [address] Jun, [facility] [address] [id number] [address] [place] [address], [place] [address] May, [facility] [address] [id number] [address] [place] [address], [place] [address] May, [facility] [address] [id number] [address] [place] [address], [place] [address] May, [facility] [address] [id number] [address] [place] [address], [place] [address] May, [facility] [address] [id number] [address] [place] [address] May, [facility] [address] [id number] [address] [place] [address], [place] [address] May, [facility] [address] [id number] [address] [place] [address] May, [facility] [address] [id number] [address] [place] [address], [place] [address] May, [facility] [address] [id number] [address] [place] [address], [place] [address] Apr, [facility] [address] [id number] [address] [place] [address], [place] [address] Apr, [facility] [address] [id number] [address] [place] [address], [place] [address] Apr, [facility] [address] [id number] [address] [place] [address], [place] [address] Apr, [facility] [address] [id number] [address] [place] [address], [place] [address] 08 Apr, 2013 [facility] [address] [id number] [address] [place] [address], [place] [address] Apr, [facility] [address] [id number] [address] [place] [address], [place] [address] 30 Mar, 2013 [facility] [address] [id number] [address] [place] [address], [place] [address] 26 Sep, 2012 [facility] [address] [id number] [address] [place] [address] 20 Sep, 2012 [facility] [address] [id number] [address] [place] [address], [place] [address] 17 Sep, 2012 [facility] [address] [id number] [address] [place] [address], [place] [address] 16 Sep, 2012 [facility] [address] [id number] [address] [place] [address], [place] [address] 05 Sep, 2012 [facility] [address] [id number] [address] [place] [address], [place] [address] Feb, [facility] [address] [id number] [address] [place] [address], [place] [address] Feb, [facility] [address] [id number] [address] [place] [address], [place] [address] Feb, [facility] [address] [id number] [address] [place] [address], [place] [address] Feb, [facility] [address] [id number] [address] [place] [address], [place] [address] Jan, [facility] [address] [id number] [address] [place] [address], [place] [address] Jan, [facility] [address] [id number] [address] [place] [address], [place] [address] Jan, [facility] [address] [id number] [address] [place] [address], [place] [address] Jan, [facility] [address] [id number] [address] [place] [address], [place] [address] Jan, [facility] [address] [id number] [address] [place] [address], [place] [address] Dec, [facility] [address] [id number] [address] [place] [address], [place] [address] Dec, [facility] [address] [id number] [address] [place] [address], [place] [address] Dec, [facility] [address] [id number] [address] [place] [address], [place] [address] November, [facility] [address] [id number] [address] [place] [address], [place] [address] November, [facility] [address] [id number] [address] [place] [address], [place] [address] November, [facility] [address] [id number] [address] [place] [address], [place] [address] Oct, [facility] [address] [id number] [address] [place] [address], [place] [address] Oct, [facility] [address] [id number] [address] [place] [address], [place] [address] Oct, [facility] [address] [id number] [address] [place] [address], [place] [address] Oct, [facility] [address] [id number] [address] [place] [address], [place] [address] 18 Oct, 2012 [facility] [address] [id number] [address] [place] [address], [place] [address] 17 Oct, 2012 [facility] [address] [id number] [address] [place] [address], [place] [address] Oct, [facility] [address] [id number] [address] [place] [address], [place] [address] Sep, [facility] [address] [id number] [address] [place] [address], [place] [address] Sep, [facility] [address] [id number] [address] [place] [address], [place] [address] Sep, [facility] [address] [id number] [address] [place] [address], [place] [address] Sep, [facility] [address] [id number] [address] [place] [address], [place] [address] Aug, [facility] [address] [id number] [address] [place] [address], [place] [address] Aug, [facility] [address] [id number] [address] [place] [address], [place] [address] Aug, [facility] [address] [id number] [address] [place] [address], [place] [address] Aug, [facility] [address] [id number] [address] [place] [address], [place] [address] Aug, [facility] [address] [id number] [address] [place] [address], [place] [address] 05 Aug, 2012 [facility] [address] [id number] [address] [place] [address], [place] [address] Jul, [facility] [address] [id number] [address] [place] [address], [place] [address] Jul, [facility] [address] [id number] [address] [place] [address], [place] [address] Jul, [facility] [address] [id number] [address] [place] [address], [place] [address] Jul, [facility] [address] [id number] [address] [place] [address], [place] [address] Jul, [facility] [address] [id number] [address] [place] [address], [place] [address] Jul, [facility] [address] [id number] [address] [place] [address], [place] [address] Jun, [facility] [address] [id number] [address] [place] [address], [place] [address] Jun, [facility] [address] [id number] [address] [place] [address], [place] [address] Jun, [facility] [address] [id number] [address] [place] [address], [place] [address] Jun, [facility] [address] [id number] [address] [place] [address], [place] [address] Jun, [facility] [address] [id number] [address] [place] [address], [place] [address] Jun, [facility] [address] [id number] [address] [place] [address], [place] [address] May, [facility] [address] [id number] [address] [place] [address], [place] [address] May, [facility] [address] [id number] [address] [place] [address], [place] [address] May, [facility] [address] [id number] [address] [place] [address], [place] [address] May, [facility] [address] [id number] [address] [place] [address], [place] [address] May, [facility] [address] [id number] [address] [place] [address], [place] [address] May, [facility] [address] [id number] [address] [place] [address], [place] [address] May, [facility] [address] [id number] [address] [place] [address], [place] [address] May, [facility] [address] [id number] [address] [place] [address], [place] [address] May, [facility] [address] [id number] [address] [place] [address], [place] [address] May, [facility] [address] [id number] [address] [place] [address], [place] [address] Apr, [facility] [address] [id number] [address] [place] [address], [place] [address] 31 Apr, 2012 [facility] [address] [id number] [address] [place] [address] Apr, [facility] [address] [id number] [address] [place] [address], [place] [address] 23 Apr, 2012 [facility] [address] [id number] [address] [place] [address] 16 Apr, 2012 [facility] [address] [id number] [address] [place] [address], [place] [address] 16 Apr, 2012 [facility] [address] [id number] [address] [place] [address] 15 Apr, 2012 [facility] [address] [id number] [address] [place] [address], [place] [address] 15 Apr, 2012 [facility] [address] [id number] [address] [place] [address], [place] [address] 05 Apr, 2012 [facility] [address] [id number] [address] [place] [address], [place] [address] 28 Mar, 2011 [facility] [address] [id number] [address] [place] [address], [place] [address] 26 Mar, 2012 [facility] [address] [id number] [address] [place] [address], [place] [address] 25 Mar, 2012 [facility] [address] [id number] [address] [place] [address], [place] [address] 19 Mar, 2012 [facility] [address] [id number] [address] [place] [address], [place] [address] 18 Mar, 2012 [facility] [address] [id number] [address] [place] [address], [place] [address] 05 Mar, 2012 [facility] [address] [id number] [address] [place] [address], [place] [address] Feb, [facility] [address] [id number] [address] [place] [address], [place] [address] Feb, [facility] [address] [id number] [address] [place] [address], [place] [address] Feb, [facility] [address] [id number] [address] [place] [address], [place] [address] Jan, [facility] [address] [id number] [address] [place] [address], [place] [address] Jan, [facility] [address] [id number] [address] [place] [address], [place] [address] Jan, [facility] [address] [id number] [address] [place] [address], [place] [address] Jan, [facility] [address] [id number] [address] [place] [address], [place] [address] Dec, [facility] [address] [id number] [address] [place] [address], [place] [address] November, [facility] [address] [id number] [address] [place] [address], [place] [address] November, [facility] [address] [id number] [address] [place] [address], [place] [address] November, [facility] [address] [id number] [address] [place] [address], [place] [address] November, [facility] [address] [id number] [address] [place] [address], [place] [address] November, [facility] [address] [id number] [address] [place] [address], [place] [address] November, [facility] [address] [id number] [address] [place] [address], [place] [address] Oct, [facility] [address] [id number] [address] [place] [address], [place] [address] Oct, [facility] [address] [id number] [address] [place] [address], [place] [address] Sep, [facility] [address] [id number] [address] [place] [address], [place] [address] Sep, [facility] [address] [id number] [address] [place] [address], [place] [address] Sep, [facility] [address] [id number] [address] [place] [address], [place] [address] Aug, [facility] [address] [id number] [address] [place] [address], [place] [address] Aug, [facility] [address] [id number] [address] [place] [address], [place] [address] Aug, [facility] [address] [id number] [address] [place] [address], [place] [address] Aug, [facility] [address] [id number] [address] [place] [address], [place] [address] Aug, [facility] [address] [id number] [address] [place] [address], [place] [address] Aug, [facility] [address] [id number] [address] [place] [address], [place] [address] Jul, [facility] [address] [id number] [address] [place] [address], [place] [address] Jul, [facility] [address] [id number] [address] [place] [address], [place] [address] Jul, [facility] [address] [id number] [address] [place] [address], [place] [address] Jul, [facility] [address] [id number] [address] [place] [address], [place] [address] Jul, [facility] [address] [id number] [address] [place] [address], [place] [address] Jul, [facility] [address] [id number] [address] [place] [address], [place] [address] Jul, [facility] [address] [id number] [address] [place] [address], [place] [address] Jul, [facility] [address] [id number] [address] [place] [address], [place] [address] Jul, [facility] [address] [id number] [address] [place] [address], [place] [address] Jul, [facility] [address] [id number] [address] [place] [address], [place] [address] Jun, [facility] [address] [id number] [address] [place] [address], [place] [address] Jun, [facility] [address] [id number] [address] [place] [address], [place] [address] Jun, [facility] [address] [id number] [address] [place] [address], [place] [address] Jun, [facility] [address] [id number] [address] [place] [address], [place] [address] May, [facility] [address] [id number] [address] [place] [address], [place] [address] 29 May, 2011 [facility] [address] [id number] [address] [place] [address], [place] [address] 22 May, 2011 [facility] [address] [id number] [address] [place] [address], [place] [address] 08 May, 2011 [facility] [address] [id number] [address] [place] [address], [place] [address] 31 Apr, 2011 [facility] [address] [id number] [address] [place] [address], [place] [address] 31 Apr, 2011 [facility] [address] [id number] [address] [place] [address], [place] [address] November, [facility] [address] [id number] [address] [place] [address], [place] [address] 18 Oct, 2010 [facility] [address] [id number] [address] [place] [address], [place] [address] 17 Aug, 2010 [facility] [address] [id number] [address] [place] [address], [place] [address] Jun, [facility] [address] [id number] [address] [place] [address], [place] [address] 28 Jun, 2010 [facility] [address] [id number] [address] [place] [address], [place] [address] 27 Jun, 2010 [facility] [address] [id number] [address] [place] [address], [place] [address] 03 Jun, 2010 [facility] [address] [id number] [address] [place] [address], [place] [address] 29 May, 2010 [facility] [address] [id number] [address] [place] [address], [place] [address] 27 Apr, 2010 [facility] [address] [id number] [address] [place] [address], [place] [address] 13 Oct, 2009 [facility] [address] [id number] [address] [place] [address], [place] [address] 13 Aug, 2009 [facility] [address] [id number] [address] [place] [id number] Jul, [facility] [address] [id number] [address] [place] [id number] Jun, [facility] [address] [id number] [address] [place] [id number] 16 Jun, 2009 [facility] [address] [id number] [address] [place] [id number] Jun, [facility] [address] [id number] [address] [place] [address] Jun, [facility] [address] [id number] [address] [place] [address] May, [facility] [address] [id number] [address] [place] [id number] Apr, [facility] [address] [id number] [address] [place] [id number] 15 Mar, 2009 [facility] [address] [id number] [address] [place] [id number] 14 Mar, 2009 [facility] [address] [id number] [address] [place] [id number] Dec, IMMUNIZATIONS No Known Immunizations SOCIAL HISTORY [...]
--- OUTSIDE RECORDS SUMMARY | 2019-09-01 05:04 | XMS REPORT ---
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 [address], [place] [address] Aug, [facility] [place] [facility] [address] [id number] [address] [place] [address], [place] [address] Aug, [facility] [place] [facility] [address] [id number] [address] [place] [address], [place] [address] Aug, [facility] [place] [facility] [address] [id number] [address] [place] [address] Aug, 2014 [facility] [address] [id number] [address] [place] [address], [place] [address] Aug, 2014 [facility] [place] [facility] [address] [id number] [address] [place] [address], [place] [address] Aug, 2014 [facility] [place] [facility] [address] [id number] [address] [place] [address], [place] [address] Aug, 2014 [facility] [place] [facility] [address] [id number] [address] [place] [address], [place] [address] Aug, 2014 [facility] [place] [facility] [address] [id number] [address] [place] [address], [place] [address] Aug, 2014 [facility] [address] [id number] [address] [place] [address], [place] [address] Aug, 2014 [facility] [place] [facility] [address] [id number] [address] [place] [address], [place] [address] Jul, [facility] [address] [id number] [address] [place] [address], [place] [address] Jul, [facility] [address] [id number] [address] [place] [address], [place] [address] Jun, [facility] [address] [id number] [address] [place] [address], [place] [address] Jun, [facility] [place] [facility] [address] [id number] [address] [place] [address], [place] [address] Jun, [facility] [place] [facility] [address] [id number] [address] [place] [address], [place] [address] Jun, [facility] [place] [facility] [address] [id number] [address] [place] [address], [place] [address] Jun, [facility] [place] [facility] [address] [id number] [address] [place] [address], [place] [address] Jun, [facility] [place] [facility] [address] [id number] [address] [place] [address], [place] [address] Jun, [facility] [address] [id number] [address] [place] [address], [place] [address] Jun, [facility] [address] [id number] [address] [place] [address], [place] [address] Jun, [facility] [address] [id number] [address] [place] [address], [place] [address] Jun, [facility] [address] [id number] [address] [place] [address], [place] [address] Jun, [facility] [address] [id number] [address] [place] [address], [place] [address] Jun, [facility] [address] [id number] [address] [place] [address], [place] [address] Jun, [facility] [address] [id number] [address] [place] [address], [place] [address] Jun, [facility] [address] [id number] [address] [place] [address], [place] [address] Jun, [facility] [address] [id number] [address] [place] [address], [place] [address] Jun, [facility] [address] [id number] [address] [place] [address], [place] [address] Jun, [facility] [address] [id number] [address] [place] [address], [place] [address] Jun, [facility] [facility] [address] [id number] [address] [place] [address], [place] [address] Jun, [facility] [place] [facility] [address] [id number] [address] [place] [address], [place] [address] Jun, [facility] [place] [facility] [address] [id number] [address] [place] [address], [place] [address] Jun, [facility] [place] [facility] [address] [id number] [address] [place] [address], [place] [address] May, [facility] [place] [facility] [address] [id number] [address] [place] [address], [place] [address] May, [facility] [place] [facility] [address] [id number] [address] [place] [address], [place] [address] May, [facility] [place] [facility] [address] [id number] [address] [place] [address], [place] [address] May, [facility] [place] [facility] [address] [id number] [address] [place] [address], [place] [address] Apr, [facility] [place] [facility] [address] [id number] [address] [place] [address], [place] [address] Apr, [facility] [place] [facility] [address] [id number] [address] [place] [address], [place] [address] Apr, [facility] [place] [facility] [address] [id number] [address] [place] [address], [place] [address] Apr, [facility] [place] [facility] [address] [id number] [address] [place] [address], [place] [address] Apr, [facility] [place] [facility] [address] [id number] [address] [place] [address], [place] [address] Apr, [facility] [place] [facility] [address] [id number] [address] [place] [address], [place] [address] Apr, [facility] [place] [facility] [address] [id number] [address] [place] [address], [place] [address] Apr, [facility] [place] [facility] [address] [id number] [address] [place] [address], [place] [address] Apr, [facility] [place] [facility] [address] [id number] [address] [place] [address], [place] [address] Apr, [facility] [place] [facility] [address] [id number] [address] [place] [address], [place] [address] Mar, [facility] [place] [facility] [address] [id number] [address] [place] [address], [place] [address] Mar, [facility] [place] [facility] [address] [id number] [address] [place] [address], [place] [address] 29 Mar, 2014 [facility] [place] [facility] [address] [id number] [facility] [place] [address] Mar, 2013 [facility] [address] [id number] [address] [place] [address], [place] [address] Mar, 2013 [facility] [address] [id number] [address] [place] [address], [place] [address] Mar, 2013 [facility] [address] [id number] [address] [place] [address], [place] [address] Mar, 2013 [facility] [address] [id number] [address] [place] [address], [place] [address] Mar, 2013 [facility] [address] [id number] [address] [place] [address], [place] [address] Mar, 2013 [facility] [address] [id number] [address] [place] [address], [place] [address] Mar, 2013 [facility] [address] [id number] [address] [place] [address], [place] [address] Mar, 2013 [facility] [address] [id number] [address] [place] [address], [place] [address] Mar, [facility] [address] [id number] [address] [place] [address], [place] [address] Feb, [facility] [address] [id number] [address] [place] [address], [place] [address] Feb, [facility] [address] [id number] [address] [place] [address], [place] [address] Jan, [facility] [address] [id number] [address] [place] [address], [place] [address] Jan, [facility] [facility] [address] [id number] [address] [place] [address], [place] [address] Jan, [facility] [address] [id number] [address] [place] [address], [place] [address] Jan, [facility] [address] [id number] [address] [place] [address], [place] [address] Dec, [facility] [address] [id number] [address] [place] [address], [place] [address] Dec, [facility] [address] [id number] [address] [place] [address], [place] [address] Dec, [facility] [address] [id number] [address] [place] [address], [place] [address] Dec, [facility] [address] [id number] [address] [place] [address], [place] [address] Dec, [facility] [address] [id number] [address] [place] [address], [place] [address] Dec, [facility] [address] [id number] [address] [place] [address], [place] [address] November, [facility] [address] [id number] [address] [place] [address], [place] [address] November, [facility] [address] [id number] [address] [place] [address], [place] [address] November, [facility] [address] [id number] [address] [place] [address], [place] [address] November, [facility] [address] [id number] [address] [place] [address], [place] [address] November, [facility] [address] [id number] [address] [place] [address], [place] [address] November, Via [address] [id number] November, [facility] [address] [id number] [address] [place] [address], [place] [address] November, [facility] [address] [id number] [address] [place] [address], [place] [address] November, [facility] [address] [id number] [address] [place] [address], [place] [address] November, [facility] [address] [id number] [address] [place] [address], [place] [address] November, [facility] [address] [id number] [address] [place] [address], [place] [address] November, [facility] [address] [id number] [address] [place] [address], [place] [address] Oct, [facility] [address] [id number] [address] [place] [address], [place] [address] Oct, [facility] [address] [id number] [address] [place] [address], [place] [address] Oct, [facility] [address] [id number] [address] [place] [address], [place] [address] Oct, [facility] [address] [id number] [address] [place] [address], [place] [address] Oct, [facility] [address] [id number] [address] [place] [address], [place] [address] Oct, [facility] [address] [id number] [address] [place] [address], [place] [address] Oct, [facility] [address] [id number] [address] [place] [address], [place] [address] Oct, [facility] [address] [id number] [address] [place] [address], [place] [address] Oct, [facility] [address] [id number] [address] [place] [address], [place] [address] Oct, [facility] [address] [id number] [address] [place] [address], [place] [address] Oct, [facility] [address] [id number] [address] [place] [address], [place] [address] Oct, [facility] [address] [id number] [address] [place] [address], [place] [address] Oct, [facility] [address] [id number] [address] [place] [address], [place] [address] Oct, [facility] [address] [id number] [facility] [place] [address] Oct, [facility] [address] [id number] [facility] [place] [address] Sep, [facility] [address] [id number] [facility] [place] [address] Sep, [facility] [address] [id number] [facility] [place] [address] Sep, [facility] [address] [id number] [facility] [place] [address] Sep, [facility] [address] [id number] [address] [place] [address], [place] [address] Aug, [facility] [address] [id number] [address] [place] [address], [place] [address] Aug, [facility] [address] [address] [id number] [address] [place] [address], [place] [address] Aug, [facility] [address] [id number] [address] [place] [address], [place] [address] Aug, [facility] [address] [id number] [address] [place] [address], [place] [address] Jul, [facility] [address] [id number] [address] [place] [address], [place] [address] Jul, [facility] [address] [id number] [address] [place] [address], [place] [address] Jul, [facility] [address] [id number] [address] [place] [address], [place] [address] Jul, [facility] [address] [id number] [address] [place] [address], [place] [address] Jul, [facility] [address] [id number] [address] [place] [address], [place] [address] Jul, [facility] [address] [id number] [address] [place] [address], [place] [address] Jul, [facility] [address] [id number] [address] [place] [address], [place] [address] Jul, [facility] [address] [id number] [address] [place] [address], [place] [address] Jul, [facility] [address] [id number] [address] [place] [address], [place] [address] Jul, [facility] [address] [id number] [address] [place] [address], [place] [address] Jul, [facility] [address] [id number] [address] [place] [address], [place] [address] Jul, [facility] [address] [id number] [address] [place] [address], [place] [address] Jul, [facility] [address] [id number] [address] [place] [address], [place] [address] Jul, [facility] [address] [id number] [address] [place] [address], [place] [address] Jun, [facility] [address] [id number] [address] [place] [address], [place] [address] Jun, [facility] [address] [id number] [address] [place] [address], [place] [address] Jun, [facility] [address] [id number] [address] [place] [address], [place] [address] Jun, [facility] [address] [id number] [address] [place] [address], [place] [address] May, [facility] [address] [id number] [address] [place] [address], [place] [address] May, [facility] [address] [id number] [address] [place] [address], [place] [address] May, [facility] [address] [id number] [address] [place] [address], [place] [address] May, [facility] [address] [id number] [address] [place] [address], [place] [address] May, [facility] [address] [id number] [address] [place] [address], [place] [address] May, [facility] [address] [id number] [address] [place] [address], [place] [address] May, [facility] [address] [id number] [address] [place] [address], [place] [address] May, [facility] [address] [id number] [address] [place] [address], [place] [address] Apr, [facility] [address] [id number] [address] [place] [address], [place] [address] Apr, [facility] [address] [id number] [address] [place] [address], [place] [address] Apr, [facility] [address] [id number] [address] [place] [address], [place] [address] Apr, [facility] [address] [id number] [address] [place] [address], [place] [address] 08 Apr, 2013 [facility] [address] [id number] [address] [place] [address], [place] [address] Apr, [facility] [address] [id number] [address] [place] [address], [place] [address] 30 Mar, 2013 [facility] [address] [id number] [address] [place] [address], [place] [address] 26 Sep, 2012 [facility] [address] [id number] [address] [place] [address], [place] [address] 20 Sep, 2012 [facility] [address] [id number] [address] [place] [address], [place] [address] 17 Sep, 2012 [facility] [address] [id number] [address] [place] [address], [place] [address] 16 Sep, 2012 [facility] [address] [id number] [address] [place] [address], [place] [address] Mar, [facility] [address] [id number] [address] [place] [address], [place] [address] Feb, [facility] [address] [id number] [address] [place] [address], [place] [address] Feb, [facility] [address] [id number] [address] [place] [address], [place] [address] Feb, [facility] [address] [id number] [address] [place] [address], [place] [address] Feb, [facility] [address] [id number] [address] [place] [address], [place] [address] Jan, [facility] [address] [id number] [address] [place] [address], [place] [address] Jan, [facility] [address] [id number] [address] [place] [address], [place] [address] Jan, [facility] [address] [id number] [address] [place] [address], [place] [address] Jan, [facility] [address] [id number] [address] [place] [address], [place] [address] Jan, [facility] [address] [id number] [address] [place] [address], [place] [address] Dec, [facility] [address] [id number] [address] [place] [address], [place] [address] Dec, [facility] [address] [id number] [address] [place] [address], [place] [address] Dec, [facility] [address] [id number] [address] [place] [address], [place] [address] November, [facility] [address] [id number] [address] [place] [address], [place] [address] November, [facility] [address] [id number] [address] [place] [address], [place] [address] November, [facility] [address] [id number] [address] [place] [address], [place] [address] 27 Oct, 2012 [facility] [address] [id number] [address] [place] [address], [place] [address] Oct, [facility] [address] [id number] [address] [place] [address], [place] [address] Oct, [facility] [address] [id number] [address] [place] [address], [place] [address] Oct, [facility] [address] [id number] [address] [place] [address], [place] [address] 18 Oct, 2012 [facility] [address] [id number] [address] [place] [address], [place] [address] 17 Oct, 2012 [facility] [address] [id number] [address] [place] [address], [place] [address] 15 Oct, 2012 [facility] [address] [id number] [address] [place] [address], [place] [address] Sep, [facility] [address] [id number] [address] [place] [address], [place] [address] Sep, [facility] [address] [id number] [address] [place] [address], [place] [address] Sep, [facility] [address] [id number] [address] [place] [address], [place] [address] Sep, [facility] [address] [id number] [address] [place] [address], [place] [address] Aug, [facility] [address] [id number] [address] [place] [address], [place] [address] Aug, [facility] [address] [id number] [address] [place] [address], [place] [address] Aug, [facility] [address] [id number] [address] [place] [address], [place] [address] Aug, [facility] [address] [id number] [address] [place] [address], [place] [address] Aug, [facility] [address] [id number] [address] [place] [address], [place] [address] Aug, [facility] [address] [id number] [address] [place] [address], [place] [address] Jul, [facility] [address] [id number] [address] [place] [address], [place] [address] Jul, [facility] [address] [id number] [address] [place] [address], [place] [address] Jul, [facility] [address] [id number] [address] [place] [address], [place] [address] Jul, [facility] [address] [id number] [address] [place] [address], [place] [address] Jul, [facility] [address] [id number] [address] [place] [address], [place] [address] Jul, [facility] [address] [id number] [address] [place] [address], [place] [address] Jun, [facility] [address] [id number] [address] [place] [address], [place] [address] Jun, [facility] [address] [id number] [address] [place] [address], [place] [address] Jun, [facility] [address] [id number] [address] [place] [address], [place] [address] Jun, [facility] [address] [id number] [address] [place] [address], [place] [address] Jun, [facility] [address] [id number] [address] [place] [address], [place] [address] Jun, [facility] [address] [id number] [address] [place] [address], [place] [address] May, [facility] [address] [id number] [address] [place] [address], [place] [address] May, [facility] [address] [id number] [address] [place] [address] May, [facility] [address] [id number] [address] [place] [address], [place] [address] May, [facility] [address] [id number] [address] [place] [address] May, [facility] [address] [id number] [address] [place] [address], [place] [address] May, [facility] [address] [id number] [address] [place] [address] May, [facility] [address] [id number] [address] [place] [address], [place] [address] May, [facility] [address] [id number] [address] [place] [address], [place] [address] May, [facility] [address] [id number] [address] [place] [address], [place] [address] May, [facility] [address] [id number] [address] [place] [address], [place] [address] Apr, [facility] [address] [id number] [address] [place] [address] 31 Apr, 2012 [facility] [address] [id number] [address] [place] [address] Apr, [facility] [address] [id number] [address] [place] [address] 23 Apr, 2012 [facility] [address] [id number] [address] [place] [address] 16 Apr, 2012 [facility] [address] [id number] [address] [place] [address] 16 Apr, 2012 [facility] [address] [id number] [address] [place] [address] 15 Apr, 2012 [facility] [address] [id number] [address] [place] [address] 15 Apr, 2012 [facility] [address] [id number] [address] [place] [address], [place] [address] 05 Apr, 2012 [facility] [address] [id number] [address] [place] [address], [place] [address] 28 Mar, 2012 [facility] [address] [id number] [address] [place] [address], [place] [address] 26 Mar, 2012 [facility] [address] [id number] [address] [place] [address], [place] [address] 25 Mar, 2012 [facility] [address] [id number] [address] [place] [address], [place] [address] 19 Mar, 2012 [facility] [address] [id number] [address] [place] [address], [place] [address] 18 Mar, 2012 [facility] [address] [id number] [address] [place] [address], [place] [address] Mar, [facility] [address] [id number] [address] [place] [address], [place] [address] Feb, [facility] [address] [id number] [address] [place] [address], [place] [address] Feb, [facility] [address] [id number] [address] [place] [address], [place] [address] Feb, [facility] [address] [id number] [address] [place] [address], [place] [address] Jan, [facility] [address] [id number] [address] [place] [address], [place] [address] Jan, [facility] [address] [id number] [address] [place] [address], [place] [address] Jan, [facility] [address] [id number] [address] [place] [address], [place] [address] Jan, [facility] [address] [id number] [address] [place] [address], [place] [address] Dec, [facility] [address] [id number] [address] [place] [address], [place] [address] November, [facility] [address] [id number] [address] [place] [address], [place] [address] November, [facility] [address] [id number] [address] [place] [address], [place] [address] November, [facility] [address] [id number] [address] [place] [address], [place] [address] November, [facility] [address] [id number] [address] [place] [address], [place] [address] November, [facility] [address] [id number] [address] [place] [address], [place] [address] November, [facility] [address] [id number] [address] [place] [address], [place] [address] Oct, [facility] [address] [id number] [address] [place] [address], [place] [address] Oct, [facility] [address] [id number] [address] [place] [address], [place] [address] Sep, [facility] [address] [id number] [address] [place] [address], [place] [address] Sep, [facility] [address] [id number] [address] [place] [address], [place] [address] Sep, [facility] [address] [id number] [address] [place] [address], [place] [address] Aug, [facility] [address] [id number] [address] [place] [address], [place] [address] Aug, [facility] [address] [id number] [address] [place] [address], [place] [address] Aug, [facility] [address] [id number] [address] [place] [address], [place] [address] Aug, [facility] [address] [id number] [address] [place] [address], [place] [address] Aug, [facility] [address] [id number] [address] [place] [address], [place] [address] Aug, [facility] [address] [id number] [address] [place] [address], [place] [address] Jul, [facility] [address] [id number] [address] [place] [address], [place] [address] Jul, [facility] [address] [id number] [address] [place] [address], [place] [address] Jul, [facility] [address] [id number] [address] [place] [address], [place] [address] Jul, [facility] [address] [id number] [address] [place] [address], [place] [address] Jul, [facility] [address] [id number] [address] [place] [address], [place] [address] Jul, [facility] [address] [id number] [address] [place] [address], [place] [address] Jul, [facility] [address] [id number] [address] [place] [address], [place] [address] Jul, [facility] [address] [id number] [address] [place] [address], [place] [address] Jul, [facility] [address] [id number] [address] [place] [address], [place] [address] Jul, [facility] [address] [id number] [address] [place] [address], [place] [address] Jun, [facility] [address] [id number] [address] [place] [address], [place] [address] Jun, [facility] [address] [id number] [address] [place] [address], [place] [address] Jun, [facility] [address] [id number] [address] [place] [address], [place] [address] Jun, [facility] [address] [id number] [address] [place] [address], [place] [address] May, [facility] [address] [id number] [address] [place] [address], [place] [address] 29 May, 2011 [facility] [address] [id number] [address] [place] [address], [place] [address] 22 May, 2011 [facility] [address] [id number] [address] [place] [address], [place] [address] 08 May, 2011 [facility] [address] [id number] [address] [place] [address], [place] [address] 31 Apr, 2011 [facility] [address] [id number] [address] [place] [address], [place] [address] 31 Apr, 2011 [facility] [address] [id number] [address] [place] [address], [place] [address] November, [facility] [address] [id number] [address] [place] [address], [place] [address] 18 Oct, 2010 [facility] [address] [id number] [address] [place] [address], [place] [address] 17 Aug, 2010 [facility] [address] [id number] [address] [place] [address], [place] [address] Jun, [facility] [address] [id number] [address] [place] [address], [place] [address] 28 Jun, 2010 [facility] [address] [id number] [address] [place] [address], [place] [address] Jun, [facility] [address] [id number] [address] [place] [address], [place] [id number] 03 Jun, 2010 [facility] [address] [id number] [address] [place] [address], [place] [address] 29 May, 2010 [facility] [address] [id number] [address] [place] [address], [place] [address] 27 Apr, 2010 [facility] [address] [id number] [address] [place] [address], [place] [address] 13 Oct, 2009 [facility] [address] [id number] [address] [place] [id number] 13 Aug, 2009 [facility] [address] [id number] [address] [place] [id number] Jul, [facility] [address] [id number] [address] [place] [id number] 22 Jun, 2009 [facility] [address] [id number] [address] [place] [id number] 16 Jun, 2009 [facility] [address] [id number] [address] [place] [id number] 14 Jun, 2009 [facility] [address] [id number] [address] [place] [id number] Jun, [facility] [address] [facility] [id number] [address] [place] [id number] May, [facility] [address] [facility] [id number] [address] [place] [id number] Apr, [facility] [address] [id number] [address] [place] [id number] 15 Mar, 2009 [facility] [address] [facility] [id number] [address] [place] [id number] 14 Mar, 2009 [facility] [address] [facility] [id number] [address] [place] [id number] 11 Dec, 2008 IMMUNIZATIONS No Known Immunizations SOCIAL HISTORY Never [...]
--- OUTSIDE RECORDS SUMMARY | 2019-09-01 05:05 | XMS REPORT ---
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 [address] Aug, [facility] [place] [facility] [address] [id number] [address] [place] [address], [place] [address] Aug, [facility] [place] [facility] [address] [id number] [address] [place] [address], [place] [address] Aug, [facility] [place] [facility] [address] [id number] [address] [place] [address] Aug, 2014 [facility] [address] [id number] [address] [place] [address], [place] [address] Aug, 2014 [facility] [place] [address] [id number] [address] [place] [address], [place] [address] Aug, 2014 [facility] [address] [id number] [address] [place] [address], [place] [address] Aug, 2014 [facility] [address] [id number] [address] [place] [address], [place] [address] Aug, 2014 [facility] [place] [facility] [address] [id number] [address] [place] [address], [place] [address] Aug, 2014 [facility] [address] [id number] [address] [place] [address], [place] [address] Aug, 2014 [facility] [place] [facility] [address] [id number] [address] [place] [address], [place] [address] Jul, [facility] [address] [id number] [address] [place] [address], [place] [address] Jul, [facility] [address] [id number] [address] [place] [address], [place] [address] Jun, [facility] [address] [id number] [address] [place] [address], [place] [address] Jun, [facility] [place] [facility] [address] [id number] [address] [place] [address], [place] [address] Jun, [facility] [place] [facility] [address] [id number] [address] [place] [address], [place] [address] Jun, [facility] [place] [facility] [address] [id number] [address] [place] [address], [place] [address] Jun, [facility] [place] [facility] [address] [id number] [address] [place] [address], [place] [address] Jun, [facility] [place] [facility] [address] [id number] [address] [place] [address], [place] [address] Jun, [facility] [address] [id number] [address] [place] [address], [place] [address] Jun, [facility] [address] [id number] [address] [place] [address], [place] [address] Jun, [facility] [address] [id number] [address] [place] [address], [place] [address] Jun, [facility] [address] [id number] [address] [place] [address], [place] [address] Jun, [facility] [address] [id number] [address] [place] [address], [place] [address] Jun, [facility] [address] [id number] [address] [place] [address], [place] [address] Jun, [facility] [address] [id number] [address] [place] [address], [place] [address] Jun, [facility] [address] [id number] [address] [place] [address], [place] [address] Jun, [facility] [address] [id number] [address] [place] [address], [place] [address] Jun, [facility] [address] [id number] [address] [place] [address], [place] [address] Jun, [facility] [address] [id number] [address] [place] [address], [place] [address] Jun, [facility] [address] [id number] [address] [place] [address], [place] [address] Jun, [facility] [place] [facility] [address] [id number] [address] [place] [address], [place] [address] Jun, [facility] [place] [facility] [address] [id number] [address] [place] [address], [place] [address] Jun, [facility] [place] [facility] [address] [id number] [address] [place] [address], [place] [address] May, [facility] [place] [facility] [address] [id number] [address] [place] [address], [place] [address] May, [facility] [place] [facility] [address] [id number] [address] [place] [address], [place] [address] May, [facility] [place] [facility] [address] [id number] [address] [place] [address], [place] [address] May, [facility] [place] [facility] [address] [id number] [address] [place] [address], [place] [address] Apr, [facility] [place] [facility] [address] [id number] [address] [place] [address], [place] [address] Apr, [facility] [place] [facility] [address] [id number] [address] [place] [address], [place] [address] Apr, [facility] [place] [facility] [address] [id number] [address] [place] [address], [place] [address] Apr, [facility] [place] [facility] [address] [id number] [address] [place] [address], [place] [address] Apr, [facility] [place] [facility] [address] [id number] [address] [place] [address], [place] [address] Apr, [facility] [place] [facility] [address] [id number] [address] [place] [address], [place] [address] Apr, [facility] [place] [facility] [address] [id number] [address] [place] [address], [place] [address] Apr, [facility] [place] [facility] [address] [id number] [address] [place] [address], [place] [address] Apr, [facility] [place] [facility] [address] [id number] [address] [place] [address], [place] [address] Apr, [facility] [place] [facility] [address] [id number] [address] [place] [address], [place] [address] Mar, [facility] [place] [facility] [address] [id number] [address] [place] [address], [place] [address] Mar, [facility] [place] [facility] [address] [id number] [address] [place] [address], [place] [address] 29 Mar, 2014 [facility] [place] [facility] [address] [id number] [facility] [place] [address] Mar, 2013 [facility] [address] [id number] [address] [place] [address], [place] [address] Mar, 2013 [facility] [address] [id number] [address] [place] [address], [place] [address] Mar, 2013 [facility] [address] [id number] [address] [place] [address], [place] [address] Mar, 2013 [facility] [address] [id number] [address] [place] [address], [place] [address] Mar, 2013 [facility] [address] [id number] [address] [place] [address], [place] [address] Mar, 2013 [facility] [address] [id number] [address] [place] [address], [place] [address] Mar, 2013 [facility] [address] [id number] [address] [place] [address], [place] [address] Mar, 2013 [facility] [address] [id number] [address] [place] [address], [place] [address] Mar, [facility] [address] [id number] [address] [place] [address], [place] [address] Feb, [facility] [address] [id number] [address] [place] [address], [place] [address] Feb, [facility] [address] [id number] [address] [place] [address], [place] [address] Jan, [facility] [address] [id number] [address] [place] [address], [place] [address] Jan, [facility] [place] [facility] [address] [id number] [address] [place] [address], [place] [address] Jan, [facility] [address] [id number] [address] [place] [address], [place] [address] Jan, [facility] [address] [id number] [address] [place] [address], [place] [address] Dec, [facility] [address] [id number] [address] [place] [address], [place] [address] Dec, [facility] [address] [id number] [address] [place] [address], [place] [address] Dec, [facility] [address] [id number] [address] [place] [address], [place] [address] Dec, [facility] [address] [id number] [address] [place] [address], [place] [address] Dec, [facility] [address] [id number] [address] [place] [address], [place] [address] Dec, [facility] [address] [id number] [address] [place] [address], [place] [address] November, [facility] [address] [id number] [address] [place] [address], [place] [address] November, [facility] [address] [id number] [address] [place] [address], [place] [address] November, [facility] [address] [id number] [address] [place] [address], [place] [address] November, [facility] [address] [id number] [address] [place] [address], [place] [address] November, [facility] [address] [id number] [address] [place] [address], [place] [address] November, [address] [id number] November, [facility] [address] [id number] [address] [place] [address], [place] [address] November, [facility] [address] [id number] [address] [place] [address], [place] [address] November, [facility] [address] [id number] [address] [place] [address], [place] [address] November, [facility] [address] [id number] [address] [place] [address], [place] [address] November, [facility] [address] [id number] [address] [place] [address], [place] [address] November, [facility] [address] [id number] [address] [place] [address], [place] [address] Oct, [facility] [address] [id number] [address] [place] [address], [place] [address] Oct, [facility] [address] [id number] [address] [place] [address], [place] [address] Oct, [facility] [address] [id number] [address] [place] [address], [place] [address] Oct, [facility] [address] [id number] [address] [place] [address], [place] [address] Oct, [facility] [address] [id number] [address] [place] [address], [place] [address] Oct, [facility] [address] [id number] [address] [place] [address], [place] [address] Oct, [facility] [address] [id number] [address] [place] [address], [place] [address] Oct, [facility] [address] [id number] [address] [place] [address], [place] [address] Oct, [facility] [address] [id number] [address] [place] [address], [place] [address] Oct, [facility] [address] [id number] [address] [place] [address], [place] [address] Oct, [facility] [address] [id number] [address] [place] [address], [place] [address] Oct, [facility] [address] [id number] [address] [place] [address], [place] [address] Oct, [facility] [address] [id number] [address] [place] [address], [place] [address] Oct, [facility] [address] [id number] [facility] [place] [address] Oct, [facility] [address] [id number] [facility] [place] [address] Sep, [facility] [address] [id number] [facility] [place] [address] Sep, [facility] [address] [id number] [facility] [place] [address] Sep, [facility] [address] [id number] [facility] [place] [address] Sep, [facility] [address] [id number] [address] [place] [address], [place] [address] Aug, [facility] [address] [id number] [address] [place] [address], [place] [address] Aug, [facility] [address] [id number] [address] [place] [address], [place] [address] Aug, [facility] [address] [id number] [address] [place] [address], [place] [address] Aug, [facility] [address] [id number] [address] [place] [address], [place] [address] Jul, [facility] [address] [id number] [address] [place] [address], [place] [address] Jul, [facility] [address] [id number] [address] [place] [address], [place] [address] Jul, [facility] [address] [id number] [address] [place] [address], [place] [address] Jul, [facility] [address] [id number] [address] [place] [address], [place] [address] Jul, [facility] [address] [id number] [address] [place] [address], [place] [address] Jul, [facility] [address] [id number] [address] [place] [address], [place] [address] Jul, [facility] [address] [id number] [address] [place] [address], [place] [address] Jul, [facility] [address] [id number] [address] [place] [address], [place] [address] Jul, [facility] [address] [id number] [address] [place] [address], [place] [address] Jul, [facility] [address] [id number] [address] [place] [address], [place] [address] Jul, [facility] [address] [id number] [address] [place] [address], [place] [address] Jul, [facility] [address] [id number] [address] [place] [address], [place] [address] Jul, [facility] [address] [id number] [address] [place] [address], [place] [address] Jul, [facility] [address] [id number] [address] [place] [address], [place] [address] Jun, [facility] [address] [id number] [address] [place] [address], [place] [address] Jun, [facility] [address] [id number] [address] [place] [address], [place] [address] Jun, [facility] [address] [id number] [address] [place] [address], [place] [address] Jun, [facility] [address] [id number] [address] [place] [address], [place] [address] May, [facility] [address] [id number] [address] [place] [address], [place] [address] May, [facility] [address] [id number] [address] [place] [address], [place] [address] May, [facility] [address] [id number] [address] [place] [address], [place] [address] May, [facility] [address] [id number] [address] [place] [address], [place] [address] May, [facility] [address] [id number] [address] [place] [address], [place] [address] May, [facility] [address] [id number] [address] [place] [address], [place] [address] May, [facility] [address] [id number] [address] [place] [address], [place] [address] May, [facility] [address] [id number] [address] [place] [address], [place] [address] Apr, [facility] [address] [id number] [address] [place] [address], [place] [address] Apr, [facility] [address] [id number] [address] [place] [address], [place] [address] Apr, [facility] [address] [id number] [address] [place] [address], [place] [address] Apr, [facility] [address] [id number] [address] [place] [address], [place] [address] 08 Apr, 2013 [facility] [address] [id number] [address] [place] [address], [place] [address] Apr, [facility] [address] [id number] [address] [place] [address], [place] [address] 30 Mar, 2013 [facility] [address] [id number] [address] [place] [address], [place] [address] 26 Sep, 2012 [facility] [address] [id number] [address] [place] [address], [place] [address] 20 Sep, 2012 [facility] [address] [id number] [address] [place] [address], [place] [address] 17 Sep, 2012 [facility] [address] [id number] [address] [place] [address], [place] [address] 16 Sep, 2012 [facility] [address] [id number] [address] [place] [address], [place] [address] Mar, [facility] [address] [id number] [address] [place] [address], [place] [address] Feb, [facility] [address] [id number] [address] [place] [address], [place] [address] Feb, [facility] [address] [id number] [address] [place] [address], [place] [address] Feb, [facility] [address] [id number] [address] [place] [address], [place] [address] Feb, [facility] [address] [id number] [address] [place] [address], [place] [address] Jan, [facility] [address] [id number] [address] [place] [address], [place] [address] Jan, [facility] [address] [id number] [address] [place] [address], [place] [address] Jan, [facility] [address] [id number] [address] [place] [address], [place] [address] Jan, [facility] [address] [id number] [address] [place] [address], [place] [address] Jan, [facility] [address] [id number] [address] [place] [address], [place] [address] Dec, [facility] [address] [id number] [address] [place] [address], [place] [address] Dec, [facility] [address] [id number] [address] [place] [address], [place] [address] Dec, [facility] [address] [id number] [address] [place] [address], [place] [address] November, [facility] [address] [id number] [address] [place] [address], [place] [address] November, [facility] [address] [id number] [address] [place] [address], [place] [address] November, [facility] [address] [id number] [address] [place] [address], [place] [address] 27 Oct, 2012 [facility] [address] [id number] [address] [place] [address], [place] [address] Oct, [facility] [address] [id number] [address] [place] [address], [place] [address] Oct, [facility] [address] [id number] [address] [place] [address], [place] [address] Oct, [facility] [address] [id number] [address] [place] [address], [place] [address] 18 Oct, 2012 [facility] [address] [id number] [address] [place] [address], [place] [address] 17 Oct, 2012 [facility] [address] [id number] [address] [place] [address], [place] [address] 15 Oct, 2012 [facility] [address] [id number] [address] [place] [address], [place] [address] Sep, [facility] [address] [id number] [address] [place] [address], [place] [address] Sep, [facility] [address] [id number] [address] [place] [address], [place] [address] Sep, [facility] [address] [id number] [address] [place] [address], [place] [address] Sep, [facility] [address] [id number] [address] [place] [address], [place] [address] Aug, [facility] [address] [id number] [address] [place] [address], [place] [address] Aug, [facility] [address] [id number] [address] [place] [address], [place] [address] Aug, [facility] [address] [id number] [address] [place] [address], [place] [address] Aug, [facility] [address] [id number] [address] [place] [address], [place] [address] Aug, [facility] [address] [id number] [address] [place] [address], [place] [address] Aug, [facility] [address] [id number] [address] [place] [address], [place] [address] Jul, [facility] [address] [id number] [address] [place] [address], [place] [address] Jul, [facility] [address] [id number] [address] [place] [address], [place] [address] Jul, [facility] [address] [id number] [address] [place] [address], [place] [address] Jul, [facility] [address] [id number] [address] [place] [address], [place] [address] Jul, [facility] [address] [id number] [address] [place] [address], [place] [address] Jul, [facility] [address] [id number] [address] [place] [address], [place] [address] Jun, [facility] [address] [id number] [address] [place] [address], [place] [address] Jun, [facility] [address] [id number] [address] [place] [address], [place] [address] Jun, [facility] [address] [id number] [address] [place] [address], [place] [address] Jun, [facility] [address] [id number] [address] [place] [address], [place] [address] Jun, [facility] [address] [id number] [address] [place] [address], [place] [address] Jun, [facility] [address] [id number] [address] [place] [address], [place] [address] May, [facility] [address] [id number] [address] [place] [address], [place] [address] May, [facility] [address] [id number] [address] [place] [address] May, [facility] [address] [id number] [address] [place] [address], [place] [address] May, [facility] [address] [id number] [address] [place] [address] May, [facility] [address] [id number] [address] [place] [address], [place] [address] May, [facility] [address] [id number] [address] [place] [address] May, [facility] [address] [id number] [address] [place] [address], [place] [address] May, [facility] [address] [id number] [address] [place] [address], [place] [address] May, [facility] [address] [id number] [address] [place] [address], [place] [address] May, [facility] [address] [id number] [address] [place] [address], [place] [address] Apr, [facility] [address] [id number] [address] [place] [address] 31 Apr, 2012 [facility] [address] [id number] [address] [place] [address] Apr, [facility] [address] [id number] [address] [place] [address] 23 Apr, 2012 [facility] [address] [id number] [address] [place] [address] 16 Apr, 2012 [facility] [address] [id number] [address] [place] [address] 16 Apr, 2012 [facility] [address] [id number] [address] [place] [address] 15 Apr, 2012 [facility] [address] [id number] [address] [place] [id number] 15 Apr, 2012 [facility] [address] [id number] [address] [place] [address], [place] [address] 05 Apr, 2012 [facility] [address] [id number] [address] [place] [address], [place] [address] 28 Mar, 2012 [facility] [address] [id number] [address] [place] [address], [place] [address] 26 Mar, 2012 [facility] [address] [id number] [address] [place] [address], [place] [address] 25 Mar, 2012 [facility] [address] [id number] [address] [place] [address], [place] [address] 19 Mar, 2012 [facility] [address] [id number] [address] [place] [address], [place] [address] 18 Mar, 2012 [facility] [address] [id number] [address] [place] [address], [place] [address] Mar, [facility] [address] [id number] [address] [place] [address], [place] [address] Feb, [facility] [address] [id number] [address] [place] [address], [place] [address] Feb, [facility] [address] [id number] [address] [place] [address], [place] [address] Feb, [facility] [address] [id number] [address] [place] [address], [place] [address] Jan, [facility] [address] [id number] [address] [place] [address], [place] [address] Jan, [facility] [address] [id number] [address] [place] [address], [place] [address] Jan, [facility] [address] [id number] [address] [place] [address], [place] [address] Jan, [facility] [address] [id number] [address] [place] [address], [place] [address] Dec, [facility] [address] [id number] [address] [place] [address], [place] [address] November, [facility] [address] [id number] [address] [place] [address], [place] [address] November, [facility] [address] [id number] [address] [place] [address], [place] [address] November, [facility] [address] [id number] [address] [place] [address], [place] [address] November, [facility] [address] [id number] [address] [place] [address], [place] [address] November, [facility] [address] [id number] [address] [place] [address], [place] [address] November, [facility] [address] [id number] [address] [place] [address], [place] [address] Oct, [facility] [address] [id number] [address] [place] [address], [place] [address] Oct, [facility] [address] [id number] [address] [place] [address], [place] [address] Sep, [facility] [address] [id number] [address] [place] [address], [place] [address] Sep, [facility] [address] [id number] [address] [place] [address], [place] [address] Sep, [facility] [address] [id number] [address] [place] [address], [place] [address] Aug, [facility] [address] [id number] [address] [place] [address], [place] [address] Aug, [facility] [address] [id number] [address] [place] [address], [place] [address] Aug, [facility] [address] [id number] [address] [place] [address], [place] [address] Aug, [facility] [address] [id number] [address] [place] [address], [place] [address] Aug, [facility] [address] [id number] [address] [place] [address], [place] [address] Aug, [facility] [address] [id number] [address] [place] [address], [place] [address] Jul, [facility] [address] [id number] [address] [place] [address], [place] [address] Jul, [facility] [address] [id number] [address] [place] [address], [place] [address] Jul, [facility] [address] [id number] [address] [place] [address], [place] [address] Jul, [facility] [address] [id number] [address] [place] [address], [place] [address] Jul, [facility] [address] [id number] [address] [place] [address], [place] [address] Jul, [facility] [address] [id number] [address] [place] [address], [place] [address] Jul, [facility] [address] [id number] [address] [place] [address], [place] [address] Jul, [facility] [address] [id number] [address] [place] [address], [place] [address] Jul, [facility] [address] [id number] [address] [place] [address], [place] [address] Jul, [facility] [address] [id number] [address] [place] [address], [place] [address] Jun, [facility] [address] [id number] [address] [place] [address], [place] [address] Jun, [facility] [address] [id number] [address] [place] [address], [place] [address] Jun, [facility] [address] [id number] [address] [place] [address], [place] [address] Jun, [facility] [address] [id number] [address] [place] [address], [place] [address] May, [facility] [address] [id number] [address] [place] [address], [place] [address] 29 May, 2011 [facility] [address] [id number] [address] [place] [address], [place] [address] 22 May, 2011 [facility] [address] [id number] [address] [place] [address], [place] [address] 08 May, 2011 [facility] [address] [id number] [address] [place] [address], [place] [address] 31 Apr, 2011 [facility] [address] [id number] [address] [place] [address], [place] [address] 31 Apr, 2011 [facility] [address] [id number] [address] [place] [address], [place] [address] November, [facility] [address] [id number] [address] [place] [address], [place] [address] 18 Oct, 2010 [facility] [address] [id number] [address] [place] [address], [place] [address] 17 Aug, 2010 [facility] [address] [id number] [address] [place] [address], [place] [address] Jun, [facility] [address] [id number] [address] [place] [address], [place] [address] 28 Jun, 2010 [facility] [address] [id number] [address] [place] [address], [place] [address] Jun, [facility] [address] [id number] [address] [place] [address], [place] [address] 03 Jun, 2010 [facility] [address] [id number] [address] [place] [address], [place] [address] 29 May, 2010 [facility] [address] [id number] [address] [place] [address], [place] [address] 27 Apr, 2010 [facility] [address] [id number] [address] [place] [address], [place] [address] 13 Oct, 2009 [facility] [address] [id number] [address] [place] [id number] 13 Aug, 2009 [facility] [address] [id number] [address] [place] [address] Jul, [facility] [address] [id number] [address] [place] [address] 22 Jun, 2009 [facility] [address] [id number] [address] [place] [id number] 16 Jun, 2009 [facility] [address] [id number] [address] [place] [phone] 14 Jun, 2009 [facility] [address] [id number] [address] [place] [phone] Jun, [facility] [address] [facility] [id number] [address] [place] [phone] May, [facility] [address] [facility] [id number] [address] [place] [phone] Apr, [facility] [address] [id number] [address] [place] [phone] 15 Mar, 2009 [facility] [address] [facility] [id number] [address] [place] [id number] 14 Mar, 2009 [facility] [address] [facility] [id number] [address] [place] [phone] 11 Dec, 2008 IMMUNIZATIONS No Known Immunizations [...]
--- OUTSIDE RECORDS SUMMARY | 2019-09-01 05:05 | XMS REPORT ---
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 [address] [id number] [address] [place] [address], [place] [address] Aug, 2014 [facility] [address] [id number] [address] [place] [address], [place] [address] Aug, 2014 [facility] [address] [id number] [address] [place] [address], [place] [address] Aug, 2014 [facility] [address] [id number] [address] [place] [address], [place] [address] Aug, 2014 [facility] [address] [id number] [address] [place] [address], [place] [address] Jul, [facility] [address] [id number] [address] [place] [address], [place] [address] Jul, [facility] [address] [id number] [address] [place] [address], [place] [address] Jun, [facility] [address] [id number] [address] [place] [address], [place] [address] Jun, [facility] [address] [id number] [address] [place] [address], [place] [address] Jun, [facility] [address] [id number] [address] [place] [address], [place] [address] 31 Jun, 2014 [facility] [address] [id number] [address] [place] [address], [place] [address] 31 Jun, 2014 [facility] [address] [id number] [address] [place] [address], [place] [address] 31 Jun, 2014 [facility] [address] [id number] [address] [place] [address], [place] [address] 19 Jun, 2014 [facility] [address] [id number] [address] [place] [address], [place] [address] 19 Jun, 2014 [facility] [address] [id number] [address] [place] [address], [place] [address] 16 Jun, 2014 [facility] [address] [id number] [address] [place] [address], [place] [address] 16 Jun, 2014 [facility] [address] [id number] [address] [place] [address], [place] [address] Jun, [facility] [address] [id number] [address] [place] [address], [place] [address] Jun, [facility] [address] [id number] [address] [place] [address], [place] [address] 05 Jun, 2014 [facility] [address] [id number] [address] [place] [address], [place] [address] Jun, [facility] [address] [id number] [address] [place] [address], [place] [address] Jun, [facility] [address] [id number] [address] [place] [address], [place] [address] Jun, [facility] [address] [id number] [address] [place] [address], [place] [address] Jun, [facility] [address] [id number] [address] [place] [address], [place] [address] Jun, [facility] [address] [id number] [address] [place] [address], [place] [address] Jun, [facility] [address] [id number] [address] [place] [address], [place] [address] Jun, [facility] [address] [id number] [address] [place] [address], [place] [address] Jun, [facility] [address] [id number] [address] [place] [address], [place] [address] May, [facility] [address] [id number] [address] [place] [address], [place] [address] May, [facility] [address] [id number] [address] [place] [address], [place] [address] May, [facility] [address] [id number] [address] [place] [address], [place] [address] May, [facility] [address] [id number] [address] [place] [address], [place] [address] Apr, [facility] [address] [id number] [address] [place] [address], [place] [address] Apr, [facility] [address] [id number] [address] [place] [address], [place] [address] Apr, [facility] [address] [id number] [address] [place] [address], [place] [address] Apr, [facility] [address] [id number] [address] [place] [address], [place] [address] Apr, [facility] [address] [id number] [address] [place] [address], [place] [address] Apr, [facility] [address] [id number] [address] [place] [address], [place] [address] Apr, [facility] [address] [id number] [address] [place] [address], [place] [address] Apr, [facility] [address] [id number] [address] [place] [address], [place] [address] Apr, [facility] [address] [id number] [address] [place] [address] Apr, [facility] [address] [id number] [address] [place] [address], [place] [address] 29 Mar, 2014 [facility] [address] [id number] [address] [place] [address] 29 Mar, 2013 [facility] [address] [id number] [address] [place] [address], [place] [address] 29 Mar, 2014 [facility] [address] [id number] [address] [place] [address], [place] [address] 29 Mar, 2013 [facility] [address] [id number] [address] [place] [address], [place] [address] 10 Mar, 2014 [facility] [address] [id number] [address] [place] [address], [place] [address] 10 Mar, 2013 [facility] [address] [id number] [address] [place] [address], [place] [address] 04 Mar, 2013 [facility] [address] [id number] [address] [place] [address], [place] [address] 04 Mar, 2013 [facility] [address] [id number] [address] [place] [address], [place] [address] Mar, 2013 [facility] [address] [id number] [address] [place] [address], [place] [address] Mar, 2013 [facility] [address] [id number] [address] [place] [address], [place] [address] Mar, 2013 [facility] [address] [id number] [address] [place] [address], [place] [address] Mar, 2013 [facility] [address] [id number] [address] [place] [address], [place] [address] Feb, [facility] [address] [id number] [address] [place] [address], [place] [address] Feb, [facility] [address] [id number] [address] [place] [address], [place] [address] Jan, [facility] [address] [id number] [address] [place] [address], [place] [address] Jan, [facility] [address] [id number] [address] [place] [address], [place] [address] Jan, [facility] [address] [id number] [address] [place] [address], [place] [address] Jan, [facility] [address] [id number] [address] [place] [address], [place] [address] Dec, [facility] [address] [id number] [address] [place] [address], [place] [address] Dec, [facility] [address] [id number] [address] [place] [address], [place] [address] Dec, [facility] [address] [id number] [address] [place] [address], [place] [address] Dec, [facility] [address] [id number] [address] [place] [address], [place] [address] Dec, [facility] [address] [id number] [address] [place] [address], [place] [address] Dec, [facility] [address] [id number] [address] [place] [address], [place] [address] November, [facility] [address] [id number] [address] [place] [address], [place] [address] November, [facility] [address] [id number] [address] [place] [address], [place] [address] November, [facility] [address] [id number] [address] [place] [address], [place] [address] November, [facility] [address] [id number] [address] [place] [address], [place] [address] November, [facility] [address] [id number] [address] [place] [address], [place] [address] November, [address] [id number] November, [facility] [address] [id number] [address] [place] [address], [place] [address] November, [facility] [address] [id number] [address] [place] [address], [place] [address] November, [facility] [address] [id number] [address] [place] [address], [place] [address] November, [facility] [address] [id number] [address] [place] [address], [place] [address] November, [facility] [address] [id number] [address] [place] [address], [place] [address] November, [facility] [address] [id number] [address] [place] [address], [place] [address] Oct, [facility] [address] [id number] [address] [place] [address], [place] [address] Oct, [facility] [address] [id number] [address] [place] [address], [place] [address] Oct, [facility] [address] [id number] [address] [place] [address], [place] [address] Oct, [facility] [address] [id number] [address] [place] [address], [place] [address] Oct, [facility] [address] [id number] [address] [place] [address], [place] [address] Oct, [facility] [address] [id number] [address] [place] [address], [place] [address] Oct, [facility] [address] [id number] [address] [place] [address], [place] [address] Oct, [facility] [address] [id number] [address] [place] [address], [place] [address] Oct, [facility] [address] [id number] [address] [place] [address], [place] [address] Oct, [facility] [address] [id number] [address] [place] [address], [place] [address] Oct, [facility] [address] [id number] [address] [place] [address], [place] [address] Oct, [facility] [address] [id number] [address] [place] [address], [place] [address] Oct, [facility] [address] [id number] [address] [place] [address], [place] [address] Oct, [facility] [address] [id number] [address] [place] [address], [place] [address] Oct, [facility] [address] [id number] [address] [place] [address], [place] [address] Sep, [facility] [address] [id number] [address] [place] [address], [place] [address] Sep, [facility] [address] [id number] [address] [place] [address], [place] [address] Sep, [facility] [address] [id number] [address] [place] [address], [place] [address] Sep, [facility] [address] [id number] [address] [place] [address], [place] [address] Aug, [facility] [address] [id number] [address] [place] [address], [place] [address] Aug, [facility] [address] [id number] [address] [place] [address], [place] [address] Aug, [facility] [address] [id number] [address] [place] [address], [place] [address] Aug, [facility] [address] [id number] [address] [place] [address], [place] [address] Jul, [facility] [address] [id number] [address] [place] [address], [place] [address] Jul, [facility] [address] [id number] [address] [place] [address], [place] [address] Jul, [facility] [address] [id number] [address] [place] [address], [place] [address] Jul, [facility] [address] [id number] [address] [place] [address], [place] [address] Jul, [facility] [address] [id number] [address] [place] [address], [place] [address] Jul, [facility] [address] [id number] [address] [place] [address], [place] [address] Jul, [facility] [address] [id number] [address] [place] [address], [place] [address] Jul, [facility] [address] [id number] [address] [place] [address], [place] [address] Jul, [facility] [address] [id number] [address] [place] [address], [place] [address] Jul, [facility] [address] [id number] [address] [place] [address], [place] [address] Jul, [facility] [address] [id number] [address] [place] [address], [place] [address] Jul, [facility] [address] [id number] [address] [place] [address], [place] [address] Jul, [facility] [address] [id number] [address] [place] [address], [place] [address] Jul, [facility] [address] [id number] [address] [place] [address], [place] [address] Jun, [facility] [address] [id number] [address] [place] [address], [place] [address] Jun, [facility] [address] [id number] [address] [place] [address], [place] [address] Jun, [facility] [address] [id number] [address] [place] [address], [place] [address] Jun, [facility] [facility] [address] [id number] [address] [place] [address], [place] [address] May, [facility] [address] [id number] [address] [place] [address], [place] [address] May, [facility] [address] [id number] [address] [place] [address], [place] [address] May, [facility] [address] [id number] [address] [place] [address], [place] [address] May, [facility] [address] [id number] [address] [place] [address], [place] [address] May, [facility] [address] [id number] [address] [place] [address], [place] [address] May, [facility] [address] [id number] [address] [place] [address], [place] [address] 05 May, 2013 [facility] [address] [id number] [address] [place] [address], [place] [address] May, [facility] [address] [id number] [address] [place] [address], [place] [address] Apr, [facility] [address] [id number] [address] [place] [address], [place] [address] Apr, [facility] [address] [id number] [address] [place] [address], [place] [address] Apr, [facility] [address] [id number] [address] [place] [address], [place] [address] Apr, [facility] [address] [id number] [address] [place] [address], [place] [address] Apr, [facility] [address] [id number] [address] [place] [address], [place] [address] Apr, [facility] [address] [id number] [address] [place] [address], [place] [address] 30 Mar, 2013 [facility] [address] [id number] [address] [place] [address], [place] [address] 26 Mar, 2013 [facility] [address] [id number] [address] [place] [address], [place] [address] 20 Mar, 2013 [facility] [address] [id number] [address] [place] [address], [place] [address] 17 Mar, 2013 [facility] [address] [id number] [address] [place] [address], [place] [address] 16 Mar, 2013 [facility] [address] [id number] [address] [place] [address], [place] [address] 05 Mar, 2013 [facility] [address] [id number] [address] [place] [address], [place] [address] Feb, [facility] [address] [id number] [address] [place] [address], [place] [address] Feb, [facility] [address] [id number] [address] [place] [address], [place] [address] Feb, [facility] [address] [id number] [address] [place] [address], [place] [address] Feb, [facility] [address] [id number] [address] [place] [address], [place] [address] Jan, [facility] [address] [id number] [address] [place] [address], [place] [address] Jan, [facility] [address] [id number] [address] [place] [address], [place] [address] Jan, [facility] [address] [id number] [address] [place] [address], [place] [address] Jan, [facility] [address] [id number] [address] [place] [address], [place] [address] Jan, [facility] [address] [id number] [address] [place] [address], [place] [address] Dec, [facility] [address] [id number] [address] [place] [address], [place] [address] Dec, [facility] [address] [id number] [address] [place] [address], [place] [address] Dec, [facility] [address] [id number] [address] [place] [address], [place] [address] November, [facility] [address] [id number] [address] [place] [address], [place] [address] November, [facility] [address] [id number] [address] [place] [address], [place] [address] November, [facility] [address] [id number] [address] [place] [address], [place] [address] Oct, [facility] [address] [id number] [address] [place] [address], [place] [address] Oct, [facility] [address] [id number] [address] [place] [address], [place] [address] Oct, [facility] [address] [id number] [address] [place] [address], [place] [address] 25 Oct, 2012 [facility] [address] [id number] [address] [place] [address], [place] [address] 18 Oct, 2012 [facility] [address] [id number] [address] [place] [address], [place] [address] 17 Oct, 2012 [facility] [address] [id number] [address] [place] [address], [place] [address] 15 Oct, 2012 [facility] [address] [id number] [address] [place] [address], [place] [address] Sep, [facility] [address] [id number] [address] [place] [address], [place] [address] Sep, [facility] [address] [id number] [address] [place] [address], [place] [address] Sep, [facility] [address] [id number] [address] [place] [address], [place] [address] Sep, [facility] [address] [id number] [address] [place] [address], [place] [address] Aug, [facility] [address] [id number] [address] [place] [address], [place] [address] Aug, [facility] [address] [id number] [address] [place] [address], [place] [address] Aug, [facility] [address] [id number] [address] [place] [address], [place] [address] Aug, [facility] [address] [id number] [address] [place] [address], [place] [address] Aug, [facility] [address] [id number] [address] [place] [address], [place] [address] 05 Aug, 2012 [facility] [address] [id number] [address] [place] [address], [place] [address] Jul, [facility] [address] [id number] [address] [place] [address], [place] [address] 31 Jul, 2012 [facility] [address] [id number] [address] [place] [address], [place] [address] Jul, [facility] [address] [id number] [address] [place] [address], [place] [address] Jul, [facility] [address] [id number] [address] [place] [address], [place] [address] Jul, [facility] [address] [id number] [address] [place] [address], [place] [address] Jul, [facility] [address] [id number] [address] [place] [address], [place] [address] Jun, [facility] [address] [id number] [address] [place] [address], [place] [address] Jun, [facility] [address] [id number] [address] [place] [address], [place] [address] Jun, [facility] [address] [id number] [address] [place] [address], [place] [address] Jun, [facility] [address] [id number] [address] [place] [address], [place] [address] Jun, [facility] [address] [id number] [address] [place] [address], [place] [address] 05 Jun, 2012 [facility] [address] [id number] [address] [place] [address], [place] [address] May, [facility] [address] [id number] [address] [place] [address], [place] [address] May, [facility] [address] [id number] [address] [place] [address], [place] [address] May, [facility] [address] [id number] [address] [place] [address], [place] [address] May, [facility] [address] [id number] [address] [place] [address], [place] [address] May, [facility] [address] [id number] [address] [place] [address], [place] [address] May, [facility] [address] [id number] [address] [place] [address], [place] [address] May, [facility] [address] [id number] [address] [place] [address], [place] [address] May, [facility] [address] [id number] [address] [place] [address], [place] [address] May, [facility] [address] [id number] [address] [place] [address], [place] [address] May, [facility] [address] [id number] [address] [place] [address], [place] [address] Apr, [facility] [address] [id number] [address] [place] [address], [place] [address] Apr, [facility] [address] [id number] [address] [place] [address], [place] [address] Apr, [facility] [address] [id number] [address] [place] [address], [place] [address] Apr, [facility] [address] [id number] [address] [place] [address], [place] [address] 16 Apr, 2012 [facility] [address] [id number] [address] [place] [address], [place] [address] 16 Apr, 2012 [facility] [address] [id number] [address] [place] [address], [place] [address] 15 Apr, 2012 [facility] [address] [id number] [address] [place] [address], [place] [address] 15 Apr, 2012 [facility] [address] [id number] [address] [place] [address], [place] [address] Apr, [facility] [address] [id number] [address] [place] [address], [place] [address] 28 Mar, 2012 [facility] [address] [id number] [address] [place] [address], [place] [address] 26 Mar, 2012 [facility] [address] [id number] [address] [place] [address], [place] [address] 25 Mar, 2012 [facility] [address] [id number] [address] [place] [address], [place] [address] Mar, [facility] [address] [id number] [address] [place] [address], [place] [address] 18 Mar, 2012 [facility] [address] [id number] [address] [place] [address], [place] [address] 05 Mar, 2012 [facility] [address] [id number] [address] [place] [address], [place] [address] Feb, [facility] [address] [id number] [address] [place] [address], [place] [address] Feb, [facility] [address] [id number] [address] [place] [address], [place] [address] Feb, [facility] [address] [id number] [address] [place] [address], [place] [address] Jan, [facility] [address] [id number] [address] [place] [address], [place] [address] Jan, [facility] [address] [id number] [address] [place] [address], [place] [address] Jan, [facility] [address] [id number] [address] [place] [address], [place] [address] Jan, [facility] [address] [id number] [address] [place] [address], [place] [address] Dec, [facility] [address] [id number] [address] [place] [address], [place] [address] November, [facility] [address] [id number] [address] [place] [address], [place] [address] November, [facility] [address] [id number] [address] [place] [address], [place] [address] November, [facility] [address] [id number] [address] [place] [address], [place] [address] November, [facility] [address] [id number] [address] [place] [address], [place] [address] November, [facility] [address] [id number] [address] [place] [address], [place] [address] November, [facility] [address] [id number] [address] [place] [address], [place] [address] Oct, [facility] [address] [id number] [address] [place] [address], [place] [address] Oct, [facility] [address] [id number] [address] [place] [address], [place] [address] Sep, [facility] [address] [id number] [address] [place] [address], [place] [address] Sep, [facility] [address] [id number] [address] [place] [address], [place] [address] Sep, [facility] [address] [id number] [address] [place] [address], [place] [address] Aug, [facility] [address] [id number] [address] [place] [address], [place] [address] Aug, [facility] [address] [id number] [address] [place] [address], [place] [address] Aug, [facility] [address] [id number] [address] [place] [address], [place] [address] Aug, [facility] [address] [id number] [address] [place] [address], [place] [address] Aug, [facility] [address] [id number] [address] [place] [address], [place] [address] Aug, [facility] [address] [id number] [address] [place] [address], [place] [address] Jul, [facility] [address] [id number] [address] [place] [address], [place] [address] Jul, [facility] [address] [id number] [address] [place] [address], [place] [address] Jul, [facility] [address] [id number] [address] [place] [address], [place] [address] Jul, [facility] [address] [id number] [address] [place] [address], [place] [address] Jul, [facility] [address] [id number] [address] [place] [address], [place] [address] Jul, [facility] [address] [id number] [address] [place] [address], [place] [address] Jul, [facility] [address] [id number] [address] [place] [address], [place] [address] Jul, [facility] [address] [id number] [address] [place] [address], [place] [address] Jul, [facility] [address] [id number] [address] [place] [address], [place] [address] Jul, [facility] [address] [id number] [address] [place] [address], [place] [address] Jun, [facility] [address] [id number] [address] [place] [address], [place] [address] Jun, [facility] [address] [id number] [address] [place] [address], [place] [address] Jun, [facility] [address] [id number] [address] [place] [address], [place] [address] Jun, [facility] [address] [id number] [address] [place] [address], [place] [address] 30 May, 2011 [facility] [address] [id number] [address] [place] [address], [place] [address] May, [facility] [address] [id number] [address] [place] [address], [place] [address] May, [facility] [address] [id number] [address] [place] [address], [place] [address] 08 May, 2011 [facility] [address] [id number] [address] [place] [address], [place] [address] 31 Apr, 2011 [facility] [address] [id number] [address] [place] [address], [place] [address] 31 Apr, 2011 [facility] [address] [id number] [address] [place] [address], [place] [address] 10 Nov, 2010 [facility] [address] [id number] [address] [place] [address], [place] [address] 18 Oct, 2010 [facility] [address] [id number] [address] [place] [address], [place] [address] 17 Aug, 2010 [facility] [address] [id number] [address] [place] [address], [place] [address] 28 Jun, 2010 [facility] [address] [id number] [address] [place] [address], [place] [address] 28 Jun, 2010 [facility] [address] [id number] [address] [place] [address], [place] [address] 27 Jun, 2010 [facility] [address] [id number] [address] [place] [address], [place] [address] 03 Jun, 2010 [facility] [address] [id number] [address] [place] [address], [place] [address] 29 May, 2010 [facility] [address] [id number] [address] [place] [address], [place] [address] 27 Apr, 2010 [facility] [address] [id number] [address] [place] [address], [place] [address] 13 Oct, 2009 [facility] [address] [id number] [address] [place] [address], [place] [address] 13 Aug, 2009 [facility] [address] [id number] [address] [place] [address], [place] [address] 20 Jul, 2009 [facility] [address] [id number] [address] [place] [address], [place] [address] 22 Jun, 2009 [facility] [address] [id number] [address] [place] [id number] 16 Jun, 2009 [facility] [address] [id number] [address] [place] [phone] 14 Jun, 2009 [facility] [address] [facility] [id number] [address] [place] [id number] 14 Jun, 2009 [facility] [address] [facility] [id number] [address] [place] [id number] May, [facility] [address] [facility] [id number] [address] [place] [id number] Apr, [facility] [address] [facility] [id number] [address] [place] [id number] 15 Mar, 2009 [facility] [address] [facility] [id number] [address] [place] [id number] 14 Mar, 2009 [facility] [address] [facility] [id number] [address] [place] [phone] 11 Dec, 2008 IMMUNIZATIONS No Known Immunizations [...]
--- OUTSIDE RECORDS SUMMARY | 2019-09-01 05:06 | XMS REPORT ---
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 [facility] [address] [id number] [address] [place] [address], [place] [address] Jun, [facility] [address] [id number] [address] [place] [address], [place] [address] Jun, [facility] [address] [id number] [address] [place] [address], [place] [address] Jun, [facility] [address] [id number] [address] [place] [address], [place] [address] Jun, [facility] [address] [id number] [address] [place] [address], [place] [address] Jun, [facility] [address] [id number] [address] [place] [address], [place] [address] Jun, [facility] [address] [id number] [address] [place] [address], [place] [address] Jun, [facility] [address] [id number] [address] [place] [address], [place] [address] Jun, [facility] [address] [id number] [address] [place] [address], [place] [address] 16 Jun, 2014 [facility] [address] [id number] [address] [place] [address], [place] [address] Jun, [facility] [address] [id number] [address] [place] [address], [place] [address] 05 Jun, 2014 [facility] [address] [id number] [address] [place] [address], [place] [address] 05 Jun, 2014 [facility] [address] [id number] [address] [place] [address], [place] [address] Jun, [facility] [address] [id number] [address] [place] [id number] Jun, [facility] [address] [id number] [address] [place] [address], [place] [address] Jun, [facility] [address] [id number] [address] [place] [address], [place] [address] Jun, [facility] [address] [id number] [address] [place] [address], [place] [address] Jun, [facility] [address] [id number] [address] [place] [address], [place] [address] Jun, [facility] [address] [id number] [address] [place] [address], [place] [address] Jun, [facility] [address] [id number] [address] [place] [address], [place] [address] Jun, [facility] [address] [id number] [address] [place] [address], [place] [address] May, [facility] [address] [id number] [address] [place] [address], [place] [address] May, [facility] [address] [id number] [address] [place] [address], [place] [address] May, [facility] [address] [id number] [address] [place] [address], [place] [address] May, [facility] [address] [id number] [address] [place] [address], [place] [address] Apr, [facility] [address] [id number] [address] [place] [address] Apr, [facility] [address] [id number] [address] [place] [address], [place] [address] 30 Apr, 2014 [facility] [address] [id number] [address] [place] [address], [place] [address] Apr, [facility] [address] [id number] [address] [place] [address], [place] [address] 29 Apr, 2014 [facility] [address] [id number] [address] [place] [address], [place] [address] 29 Apr, 2013 [facility] [address] [id number] [address] [place] [address], [place] [address] Apr, [facility] [address] [id number] [address] [place] [address], [place] [address] Apr, [facility] [address] [id number] [address] [place] [address], [place] [address] Apr, [facility] [address] [id number] [address] [place] [address], [place] [address] Apr, [facility] [address] [id number] [address] [place] [address], [place] [address] 29 Mar, 2013 [facility] [address] [id number] [address] [place] [address], [place] [address] 29 Mar, 2013 [facility] [address] [id number] [address] [place] [address], [place] [address] 29 Mar, 2013 [facility] [address] [id number] [address] [place] [address], [place] [address] 29 Sep, 2013 [facility] [address] [id number] [address] [place] [address], [place] [address] 10 Mar, 2013 [facility] [address] [id number] [address] [place] [address], [place] [address] 10 Mar, 2013 [facility] [address] [id number] [address] [place] [address], [place] [address] 04 Sep, 2013 [facility] [address] [id number] [address] [place] [address], [place] [address] 04 Sep, 2013 [facility] [address] [id number] [address] [place] [address], [place] [address] 02 Mar, 2013 [facility] [address] [id number] [address] [place] [address], [place] [address] 02 Sep, 2013 [facility] [address] [id number] [address] [place] [address], [place] [address] Mar, [facility] [address] [id number] [address] [place] [address], [place] [address] Mar, [facility] [address] [id number] [address] [place] [address], [place] [address] Feb, [facility] [address] [id number] [address] [place] [address], [place] [address] Feb, [facility] [address] [id number] [address] [place] [address], [place] [address] Jan, [facility] [address] [id number] [address] [place] [address], [place] [address] Jan, [facility] [address] [id number] [address] [place] [address], [place] [address] Jan, [facility] [address] [id number] [address] [place] [address], [place] [address] Jan, [facility] [address] [id number] [address] [place] [address], [place] [address] Dec, [facility] [address] [id number] [address] [place] [address], [place] [address] Dec, [facility] [address] [id number] [address] [place] [address], [place] [address] Dec, [facility] [address] [id number] [address] [place] [address], [place] [address] Dec, [facility] [address] [id number] [address] [place] [address], [place] [address] Dec, [facility] [address] [id number] [address] [place] [address], [place] [address] Dec, [facility] [address] [id number] [address] [place] [address], [place] [address] November, [facility] [address] [id number] [address] [place] [address], [place] [address] November, [facility] [address] [id number] [address] [place] [address], [place] [address] November, [facility] [place] [address] [id number] [address] [place] [address], [place] [address] November, [facility] [address] [id number] [address] [place] [address], [place] [address] November, [facility] [address] [id number] [address] [place] [address], [place] [address] November, [facility] [place] [id number] November, [facility] [address] [id number] [address] [place] [address], [place] [address] November, [facility] [address] [id number] [address] [place] [address], [place] [address] November, [facility] [address] [id number] [address] [place] [address], [place] [address] November, [facility] [address] [id number] [address] [place] [address], [place] [address] November, [facility] [place] [address] [id number] [address] [place] [address], [place] [address] November, [facility] [address] [id number] [address] [place] [address], [place] [address] Oct, [facility] [place] [address] [id number] [address] [place] [address], [place] [address] Oct, [facility] [address] [id number] [address] [place] [address], [place] [address] Oct, [facility] [address] [id number] [address] [place] [address], [place] [address] Oct, [facility] [address] [id number] [address] [place] [address], [place] [address] Oct, [facility] [address] [id number] [address] [place] [address], [place] [address] Oct, [facility] [address] [id number] [facility] [place] [address] Oct, [facility] [address] [id number] [address] [place] [address], [place] [address] Oct, [facility] [address] [id number] [address] [place] [address], [place] [address] Oct, [facility] [address] [id number] [address] [place] [address], [place] [address] Oct, [facility] [address] [id number] [address] [place] [address], [place] [address] Oct, [facility] [address] [id number] [address] [place] [address], [place] [address] Oct, [facility] [address] [id number] [address] [place] [address], [place] [address] Oct, [facility] [address] [id number] [address] [place] [address], [place] [address] Oct, [facility] [address] [id number] [address] [place] [address], [place] [address] Oct, [facility] [address] [id number] [address] [place] [address], [place] [address] Sep, [facility] [address] [id number] [address] [place] [address], [place] [address] Sep, [facility] [address] [id number] [address] [place] [address], [place] [address] Sep, [facility] [address] [id number] [address] [place] [address], [place] [address] Sep, [facility] [address] [id number] [address] [place] [address], [place] [address] Aug, [facility] [address] [id number] [address] [place] [address], [place] [address] Aug, [facility] [address] [id number] [address] [place] [address], [place] [address] Aug, [facility] [address] [id number] [address] [place] [address], [place] [address] Aug, [facility] [address] [id number] [address] [place] [address], [place] [address] Jul, [facility] [address] [id number] [address] [place] [address], [place] [address] Jul, [facility] [address] [id number] [address] [place] [address], [place] [address] Jul, [facility] [address] [id number] [address] [place] [address], [place] [address] Jul, [facility] [address] [id number] [address] [place] [address], [place] [address] Jul, [facility] [address] [id number] [address] [place] [address], [place] [address] Jul, [facility] [address] [id number] [address] [place] [address], [place] [address] Jul, [facility] [address] [id number] [address] [place] [address], [place] [address] Jul, [facility] [address] [id number] [address] [place] [address], [place] [address] Jul, [facility] [address] [id number] [address] [place] [address], [place] [address] Jul, [facility] [address] [id number] [address] [place] [address], [place] [address] Jul, [facility] [address] [id number] [address] [place] [address], [place] [address] Jul, [facility] [address] [id number] [address] [place] [address], [place] [address] Jul, [facility] [address] [id number] [address] [place] [address], [place] [address] Jul, [facility] [address] [id number] [address] [place] [address], [place] [id number] 30 Jun, 2013 [facility] [address] [id number] [address] [place] [address] [address] Jun[facility] [address] [id number] [address] [place] [address], [place] [address] Jun, [facility] [address] [id number] [address] [place] [address], [place] [address] Jun, [facility] [address] [id number] [address] [place] [address], [place] [address] May, [facility] [address] [id number] [address] [place] [address], [place] [address] May, [facility] [address] [id number] [address] [place] [address], [place] [address] May, [facility] [address] [id number] [address] [place] [address], [place] [address] May, [facility] [address] [id number] [address] [place] [address], [place] [address] May, [facility] [address] [id number] [address] [place] [address], [place] [address] May, [facility] [address] [id number] [address] [place] [address], [place] [address] May, [facility] [address] [id number] [address] [place] [address], [place] [address] May, [facility] [address] [id number] [address] [place] [address], [place] [address] Apr, [facility] [address] [id number] [address] [place] [address], [place] [address] Apr, [facility] [address] [id number] [address] [place] [address], [place] [address] Apr, [facility] [address] [id number] [address] [place] [id number] Apr, [facility] [address] [id number] [address] [place] [address], [place] [address] Apr, [facility] [address] [id number] [address] [place] [address], [place] [address] Apr, [facility] [address] [id number] [address] [place] [address], [place] [address] 30 Mar, 2013 [facility] [address] [id number] [address] [place] [address], [place] [address] 26 Mar, 2013 [facility] [address] [id number] [address] [place] [address], [place] [address] 20 Mar, 2013 [facility] [address] [id number] [address] [place] [address], [place] [address] 17 Mar, 2013 [facility] [address] [id number] [address] [place] [address], [place] [address] 16 Mar, 2013 [facility] [address] [id number] [address] [place] [address], [place] [address] 05 Mar, 2013 [facility] [address] [id number] [address] [place] [address], [place] [address] Feb, [facility] [address] [id number] [address] [place] [address], [place] [address] Feb, [facility] [address] [id number] [address] [place] [address], [place] [address] Feb, [facility] [address] [id number] [address] [place] [address], [place] [address] Feb, [facility] [address] [id number] [address] [place] [address], [place] [address] Jan, [facility] [address] [id number] [address] [place] [address], [place] [address] Jan, [facility] [address] [id number] [address] [place] [address], [place] [address] Jan, [facility] [address] [id number] [address] [place] [address], [place] [address] Jan, [facility] [address] [id number] [address] [place] [address], [place] [address] Jan, [facility] [address] [id number] [address] [place] [address], [place] [address] Dec, [facility] [address] [id number] [address] [place] [address], [place] [address] Dec, [facility] [address] [id number] [address] [place] [address], [place] [address] Dec, [facility] [address] [id number] [address] [place] [address], [place] [address] November, [facility] [address] [id number] [address] [place] [address], [place] [address] November, [facility] [address] [id number] [address] [place] [address], [place] [address] November, [facility] [address] [id number] [address] [place] [address], [place] [address] Oct, [facility] [address] [id number] [address] [place] [address], [place] [address] Oct, [facility] [address] [id number] [address] [place] [address], [place] [address] Oct, [facility] [place] [address] [id number] [address] [place] [address], [place] [address] Oct, [facility] [address] [id number] [address] [place] [address], [place] [address] 18 Oct, 2012 [facility] [address] [id number] [address] [place] [address], [place] [address] 17 Oct, 2012 [facility] [address] [id number] [address] [place] [address], [place] [address] 15 Oct, 2012 [facility] [address] [id number] [address] [place] [address], [place] [address] Sep, [facility] [address] [id number] [address] [place] [address], [place] [address] 13 Sep, 2012 [facility] [address] [id number] [address] [place] [address], [place] [address] Sep, [facility] [address] [id number] [address] [place] [address], [place] [address] Sep, [facility] [address] [id number] [address] [place] [address], [place] [address] Aug, [facility] [address] [id number] [address] [place] [address], [place] [address] Aug, [facility] [address] [id number] [address] [place] [address], [place] [address] Aug, [facility] [address] [id number] [address] [place] [address], [place] [address] Aug, [facility] [address] [id number] [address] [place] [address], [place] [address] Aug, [facility] [address] [id number] [address] [place] [address], [place] [address] Aug, [facility] [address] [id number] [address] [place] [address], [place] [address] Jul, [facility] [address] [id number] [address] [place] [address], [place] [address] Jul, [facility] [address] [id number] [address] [place] [address], [place] [address] Jul, [facility] [address] [id number] [address] [place] [address], [place] [address] Jul, [facility] [address] [id number] [address] [place] [address], [place] [address] Jul, [facility] [address] [id number] [address] [place] [address], [place] [address] Jul, [facility] [address] [id number] [address] [place] [address], [place] [address] Jun, [facility] [address] [id number] [address] [place] [address], [place] [address] Jun, [facility] [address] [id number] [address] [place] [address], [place] [address] Jun, [facility] [address] [id number] [address] [place] [address], [place] [address] Jun, [facility] [address] [id number] [address] [place] [address], [place] [address] Jun, [facility] [address] [id number] [address] [place] [address], [place] [address] Jun, [facility] [address] [id number] [address] [place] [address], [place] [address] May, [facility] [address] [id number] [address] [place] [address], [place] [address] May, [facility] [address] [id number] [address] [place] [address], [place] [address] May, [facility] [address] [id number] [address] [place] [address], [place] [address] May, [facility] [address] [id number] [address] [place] [address], [place] [address] May, [facility] [address] [id number] [address] [place] [address], [place] [address] May, [facility] [address] [id number] [address] [place] [address], [place] [address] May, [facility] [address] [id number] [address] [place] [address], [place] [address] May, [facility] [address] [id number] [address] [place] [address], [place] [address] May, [facility] [address] [id number] [address] [place] [address], [place] [address] May, [facility] [address] [id number] [address] [place] [address], [place] [address] 31 Apr, 2012 [facility] [address] [id number] [address] [place] [address], [place] [address] 31 Apr, 2012 [facility] [address] [id number] [address] [place] [address], [place] [address] 23 Apr, 2012 [facility] [address] [id number] [address] [place] [address], [place] [address] 23 Apr, 2012 [facility] [address] [id number] [address] [place] [address], [place] [address] 16 Apr, 2012 [facility] [address] [id number] [address] [place] [address], [place] [address] 16 Apr, 2012 [facility] [address] [id number] [address] [place] [address], [place] [address] 15 Apr, 2012 [facility] [address] [id number] [address] [place] [address], [place] [address] 15 Apr, 2012 [facility] [address] [id number] [address] [place] [address], [place] [address] 05 Apr, 2012 [facility] [address] [id number] [address] [place] [address], [place] [address] 28 Mar, 2012 [facility] [address] [id number] [address] [place] [address], [place] [address] 26 Sep2011 [facility] [address] [id number] [address] [place] [address], [place] [address] 25 Mar, 2011 [facility] [address] [id number] [address] [place] [address], [place] [address] 19 Sep, 2011 [facility] [address] [id number] [address] [place] [address] [address] 18 Sep2011 [facility] [address] [id number] [address] [place] [address], [place] [address] 05 Mar, 2011 [facility] [address] [id number] [address] [place] [address], [place] [address] Feb, [facility] [address] [id number] [address] [place] [address], [place] [address] Feb, [facility] [address] [id number] [address] [place] [address], [place] [address] Feb, [facility] [address] [id number] [address] [place] [address], [place] [address] Jan, [facility] [address] [id number] [address] [place] [address], [place] [address] Jan, [facility] [address] [id number] [address] [place] [address], [place] [address] Jan, [facility] [address] [id number] [address] [place] [address], [place] [address] Jan, [facility] [address] [id number] [address] [place] [address], [place] [address] Dec, [facility] [address] [id number] [address] [place] [address], [place] [address] November, [facility] [address] [id number] [address] [place] [address], [place] [address] November, [facility] [address] [id number] [address] [place] [address], [place] [address] November, [facility] [address] [id number] [address] [place] [address], [place] [address] November, [facility] [address] [id number] [address] [place] [address], [place] [address] November, [facility] [address] [id number] [address] [place] [address], [place] [address] November, [facility] [address] [id number] [address] [place] [address], [place] [address] Oct, [facility] [address] [id number] [address] [place] [address], [place] [address] Oct, [facility] [address] [id number] [address] [place] [address], [place] [address] Sep, [facility] [address] [id number] [address] [place] [address], [place] [address] Sep, [facility] [address] [id number] [address] [place] [address], [place] [address] Sep, [facility] [address] [id number] [address] [place] [address], [place] [address] Aug, [facility] [address] [id number] [address] [place] [address], [place] [address] Aug, [facility] [address] [id number] [address] [place] [address], [place] [address] Aug, [facility] [address] [id number] [address] [place] [address], [place] [address] Aug, [facility] [place] [address] [id number] [address] [place] [address], [place] [address] Aug, [facility] [address] [id number] [address] [place] [address], [place] [address] Aug, [facility] [place] [address] [id number] [address] [place] [address], [place] [address] Jul, [facility] [place] [address] [id number] [address] [place] [address], [place] [address] Jul, [facility] [place] [address] [id number] [address] [place] [address], [place] [address] Jul, [facility] [address] [id number] [address] [place] [address], [place] [address] Jul, [facility] [address] [id number] [address] [place] [address], [place] [address] Jul, [facility] [address] [id number] [address] [place] [address], [place] [address] Jul, [facility] [address] [id number] [address] [place] [address], [place] [address] Jul, [facility] [address] [id number] [address] [place] [address], [place] [address] Jul, [facility] [address] [id number] [address] [place] [address], [place] [address] Jul, [facility] [address] [id number] [address] [place] [address], [place] [address] Jul, [facility] [address] [id number] [address] [place] [address], [place] [address] Jun, [facility] [address] [id number] [address] [place] [address], [place] [address] Jun, [facility] [address] [id number] [address] [place] [address], [place] [address] Jun, [facility] [address] [id number] [address] [place] [address], [place] [address] Jun, [facility] [address] [id number] [address] [place] [address], [place] [address] May, [facility] [address] [id number] [address] [place] [address], [place] [address] May, [facility] [address] [id number] [address] [place] [address], [place] [address] May, [facility] [address] [id number] [address] [place] [address], [place] [address] May, [facility] [address] [id number] [address] [place] [address], [place] [address] Apr, [facility] [address] [id number] [address] [place] [address], [place] [address] Apr, [facility] [address] [id number] [address] [place] [address], [place] [address] November, [facility] [address] [id number] [address] [place] [address], [place] [address] Oct, [facility] [address] [id number] [address] [place] [address], [place] [address] 17 Aug, 2010 [facility] [address] [id number] [address] [place] [address], [place] [address] 28 Jun, 2010 [facility] [address] [id number] [address] [place] [address], [place] [address] 28 Jun, 2010 [facility] [address] [id number] [address] [place] [address], [place] [address] 27 Jun, 2010 [facility] [address] [id number] [address] [place] [address], [place] [address] 03 Jun, 2010 [facility] [address] [id number] [address] [place] [address], [place] [address] 29 May, 2010 [facility] [address] [id number] [address] [place] [address], [place] [address] 27 Apr, 2010 [facility] [address] [id number] [address] [place] [address], [place] [address] 13 Oct, 2009 [facility] [address] [id number] [address] [place] [address], [place] [address] 13 Aug, 2009 [facility] [address] [id number] [address] [place] [address], [place] [id number] Jul, [facility] [address] [id number] [address] [place] [address], [place] [id number] 22 Jun, 2009 [facility] [address] [id number] [address] [place] [address], [place] [id number] 16 Jun, 2009 [facility] [address] [id number] [address] [place] [id number] 14 Jun, 2009 [facility] [address] [id number] [address] [place] [address], [place] [id number] 14 Jun, 2009 [facility] [address] [id number] [address] [place] [id number] 09 May, 2009 [facility] [address] [id number] [address] [place] [address], [place] [id number] 20 Apr, 2009 [facility] [address] [id number] [address] [place] [id number] 15 Mar, 2009 [facility] [address] [facility] [id number] [address] [place] [id number] 14 Mar, 2009 [facility] [address] [facility] [id number] [address] [place] [id number] 11 Dec, 2008 IMMUNIZATIONS Vaccine Route Administration Date Status FLU Vaccine (History) Unknown Apr 10, 2014 Administer ed SOCIAL HISTORY Never Assessed REASON FOR VISIT [...]
--- OUTSIDE RECORDS SUMMARY | 2019-09-01 05:06 | XMS REPORT ---
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 [place] [address] Aug, 2014 [facility] [address] [id number] [address] [place] [address], [place] [address] Aug, 2014 [facility] [address] [id number] [address] [place] [address], [place] [address] Aug, 2014 [facility] [address] [id number] [address] [place] [address], [place] [address] Aug, [facility] [address] [id number] [address] [place] [address], [place] [address] Aug, [facility] [address] [id number] [address] [place] [address], [place] [address] Aug, [facility] [address] [id number] [address] [place] [address], [place] [address] Jul, [facility] [address] [id number] [address] [place] [address], [place] [address] Jul, [facility] [address] [id number] [address] [place] [address], [place] [address] Jun, [facility] [address] [id number] [address] [place] [address], [place] [address] Jun, [facility] [address] [id number] [address] [place] [address], [place] [address] Jun, [facility] [address] [id number] [address] [place] [address], [place] [address] Jun, [facility] [address] [id number] [address] [place] [address], [place] [address] Jun, [facility] [address] [id number] [address] [place] [address], [place] [address] 31 Jun, 2014 [facility] [address] [id number] [address] [place] [address], [place] [address] Jun, [facility] [address] [id number] [address] [place] [address], [place] [address] Jun, [facility] [address] [id number] [address] [place] [address], [place] [address] 16 Jun, 2014 [facility] [address] [id number] [address] [place] [address], [place] [address] 16 Jun, 2014 [facility] [address] [id number] [address] [place] [address], [place] [address] Jun, [facility] [address] [id number] [address] [place] [address], [place] [address] Jun, [facility] [address] [id number] [address] [place] [address], [place] [address] Jun, [facility] [address] [id number] [address] [place] [address], [place] [address] Jun, [facility] [address] [id number] [address] [place] [address], [place] [address] Jun, [facility] [address] [id number] [address] [place] [address], [place] [address] Jun, [facility] [address] [id number] [address] [place] [address], [place] [address] Jun, [facility] [address] [id number] [address] [place] [address], [place] [address] Jun, [facility] [address] [id number] [address] [place] [address], [place] [address] Jun, [facility] [address] [id number] [address] [place] [address], [place] [address] Jun, [facility] [address] [id number] [address] [place] [address], [place] [address] Jun, [facility] [address] [id number] [address] [place] [address], [place] [address] May, [facility] [address] [id number] [address] [place] [address], [place] [address] May, [facility] [address] [id number] [address] [place] [address], [place] [address] May, [facility] [address] [id number] [address] [place] [address], [place] [address] May, [facility] [address] [id number] [address] [place] [address], [place] [address] Apr, [facility] [address] [id number] [address] [place] [address], [place] [address] Apr, [facility] [address] [id number] [address] [place] [address], [place] [address] Apr, [facility] [address] [id number] [address] [place] [address], [place] [address] Apr, [facility] [address] [id number] [address] [place] [address], [place] [address] Apr, [facility] [address] [id number] [address] [place] [address], [place] [address] Apr, [facility] [address] [id number] [address] [place] [address], [place] [address] Apr, [facility] [address] [id number] [address] [place] [address], [place] [address] Apr, [facility] [address] [id number] [address] [place] [address], [place] [address] Apr, [facility] [address] [id number] [address] [place] [address], [place] [address] Apr, [facility] [address] [id number] [address] [place] [address], [place] [address] 29 Mar, 2013 [facility] [address] [id number] [address] [place] [address], [place] [address] 29 Sep, 2013 [facility] [address] [id number] [address] [place] [address], [place] [address] 29 Sep, 2013 [facility] [address] [id number] [address] [place] [address], [place] [address] 29 Sep, 2013 [facility] [address] [id number] [address] [place] [address], [place] [address] 10 Mar, 2013 [facility] [address] [id number] [address] [place] [address], [place] [address] 10 Mar, 2013 [facility] [address] [id number] [address] [place] [address], [place] [address] Mar, 2013 [facility] [address] [id number] [address] [place] [address], [place] [address] 04 Mar, 2013 [facility] [address] [id number] [address] [place] [address], [place] [address] Mar, [facility] [address] [id number] [address] [place] [address], [place] [address] Mar, 2013 [facility] [address] [id number] [address] [place] [address], [place] [address] Mar, 2013 [facility] [address] [id number] [address] [place] [address], [place] [address] Mar, [facility] [address] [id number] [address] [place] [address], [place] [address] Feb, [facility] [address] [id number] [address] [place] [address], [place] [address] Feb, [facility] [address] [id number] [address] [place] [address], [place] [address] Jan, [facility] [address] [id number] [address] [place] [address], [place] [address] Jan, [facility] [address] [id number] [address] [place] [address], [place] [address] Jan, [facility] [address] [id number] [address] [place] [address], [place] [address] Jan, [facility] [address] [id number] [address] [place] [address], [place] [address] Dec, [facility] [address] [id number] [address] [place] [address], [place] [address] Dec, [facility] [address] [id number] [address] [place] [address], [place] [address] Dec, [facility] [address] [id number] [address] [place] [address], [place] [address] Dec, [facility] [address] [id number] [address] [place] [address], [place] [address] Dec, [facility] [address] [id number] [address] [place] [address], [place] [address] Dec, [facility] [address] [id number] [address] [place] [address], [place] [address] November, [facility] [address] [id number] [address] [place] [address], [place] [address] November, [facility] [address] [id number] [address] [place] [address], [place] [address] November, [facility] [address] [id number] [address] [place] [address], [place] [address] November, [facility] [address] [id number] [address] [place] [address], [place] [address] November, [facility] [address] [id number] [address] [place] [address], [place] [address] November, [address] [id number] November, [facility] [address] [id number] [address] [place] [address], [place] [address] November, [facility] [address] [id number] [address] [place] [address], [place] [address] November, [facility] [address] [id number] [address] [place] [address], [place] [address] November, [facility] [address] [id number] [address] [place] [address], [place] [address] November, [facility] [address] [id number] [address] [place] [address], [place] [address] November, [facility] [address] [id number] [address] [place] [address], [place] [address] Oct, [facility] [address] [id number] [address] [place] [address], [place] [address] Oct, [facility] [address] [id number] [facility] [place] [address] Oct, [facility] [address] [id number] [address] [place] [address], [place] [address] Oct, [facility] [address] [id number] [address] [place] [address], [place] [address] Oct, [facility] [address] [id number] [address] [place] [address], [place] [address] Oct, [facility] [address] [id number] [address] [place] [address], [place] [address] Oct, [facility] [address] [id number] [address] [place] [address], [place] [address] Oct, [facility] [address] [id number] [address] [place] [address], [place] [address] Oct, [facility] [address] [id number] [address] [place] [address], [place] [address] Oct, [facility] [address] [id number] [address] [place] [address], [place] [address] Oct, [facility] [address] [id number] [address] [place] [address], [place] [address] Oct, [facility] [address] [id number] [address] [place] [address], [place] [address] Oct, [facility] [address] [id number] [address] [place] [address], [place] [address] Oct, [facility] [address] [id number] [address] [place] [address], [place] [address] Oct, [facility] [address] [id number] [address] [place] [address], [place] [address] Sep, [facility] [address] [id number] [address] [place] [address], [place] [address] Sep, [facility] [address] [address] [id number] [address] [place] [address], [place] [address] Sep, [facility] [address] [id number] [address] [place] [address], [place] [address] Sep, [facility] [address] [id number] [address] [place] [address], [place] [address] Aug, [facility] [address] [id number] [address] [place] [address], [place] [address] Aug, [facility] [address] [id number] [address] [place] [address], [place] [address] Aug, [facility] [address] [id number] [address] [place] [address], [place] [address] Aug, [facility] [address] [id number] [address] [place] [address], [place] [address] Jul, [facility] [address] [id number] [address] [place] [address], [place] [address] Jul, [facility] [address] [id number] [address] [place] [address], [place] [address] Jul, [facility] [address] [id number] [address] [place] [address], [place] [address] Jul, [facility] [address] [id number] [address] [place] [address], [place] [address] Jul, [facility] [address] [id number] [address] [place] [address], [place] [address] Jul, [facility] [address] [id number] [address] [place] [address], [place] [address] Jul, [facility] [address] [id number] [address] [place] [address], [place] [address] Jul, [facility] [address] [id number] [address] [place] [address], [place] [address] Jul, [facility] [address] [id number] [address] [place] [address], [place] [address] Jul, [facility] [address] [id number] [address] [place] [address] 08 Jul, 2013 [facility] [address] [id number] [address] [place] [address], [place] [address] Jul, [facility] [address] [id number] [address] [place] [address] Jul, [facility] [address] [id number] [address] [place] [address], [place] [address] Jul, [facility] [address] [id number] [address] [place] [address], [place] [address] Jun, [facility] [address] [id number] [address] [place] [address], [place] [address] Jun, [facility] [address] [id number] [address] [place] [address], [place] [address] Jun, [facility] [address] [id number] [address] [place] [address] Jun, [facility] [address] [id number] [address] [place] [address], [place] [address] May, [facility] [address] [id number] [address] [place] [address] May, [facility] [address] [id number] [address] [place] [address] May, [facility] [address] [id number] [address] [place] [address] May, [facility] [address] [id number] [address] [place] [address] May, [facility] [address] [id number] [address] [place] [address] May, [facility] [address] [id number] [address] [place] [address] May, [facility] [address] [id number] [address] [place] [address] May, [facility] [address] [id number] [address] [place] [address], [place] [address] Apr, [facility] [address] [id number] [address] [place] [address], [place] [address] Apr, [facility] [address] [id number] [address] [place] [address], [place] [address] Apr, [facility] [address] [id number] [address] [place] [address], [place] [address] Apr, [facility] [address] [id number] [address] [place] [address], [place] [address] 08 Apr, 2013 [facility] [address] [id number] [address] [place] [address], [place] [address] Apr, [facility] [address] [id number] [address] [place] [address], [place] [address] 30 Mar, 2013 [facility] [address] [id number] [address] [place] [address], [place] [address] 26 Mar, 2013 [facility] [address] [id number] [address] [place] [address], [place] [address] 20 Mar, 2013 [facility] [address] [id number] [address] [place] [address], [place] [address] 17 Mar, 2013 [facility] [address] [id number] [address] [place] [address], [place] [address] 16 Mar, 2013 [facility] [address] [id number] [address] [place] [address], [place] [address] 05 Mar, 2013 [facility] [address] [id number] [address] [place] [address], [place] [address] 27 Feb, 2013 [facility] [address] [id number] [address] [place] [address], [place] [address] Feb, [facility] [address] [id number] [address] [place] [address], [place] [address] Feb, [facility] [address] [id number] [address] [place] [address], [place] [address] Feb, [facility] [address] [id number] [address] [place] [address], [place] [address] Jan, [facility] [address] [id number] [address] [place] [address], [place] [address] Jan, [facility] [address] [id number] [address] [place] [address], [place] [address] Jan, [facility] [address] [id number] [address] [place] [address], [place] [address] Jan, [facility] [address] [id number] [address] [place] [address], [place] [address] Jan, [facility] [address] [id number] [address] [place] [address], [place] [address] Dec, [facility] [address] [id number] [address] [place] [address], [place] [address] Dec, [facility] [address] [id number] [address] [place] [address], [place] [address] Dec, [facility] [address] [id number] [address] [place] [address], [place] [address] November, [facility] [address] [id number] [address] [place] [address], [place] [address] November, [facility] [address] [id number] [address] [place] [address], [place] [address] November, [facility] [address] [id number] [address] [place] [address], [place] [address] Oct, [facility] [address] [id number] [address] [place] [address], [place] [address] Oct, [facility] [address] [id number] [address] [place] [address], [place] [address] Oct, [facility] [address] [id number] [address] [place] [address], [place] [address] Oct, [facility] [address] [id number] [address] [place] [address], [place] [address] 18 Oct, 2012 [facility] [address] [id number] [address] [place] [address], [place] [address] 17 Oct, 2012 [facility] [address] [id number] [address] [place] [address], [place] [address] 15 Oct, 2012 [facility] [address] [id number] [address] [place] [address], [place] [address] 26 Sep, 2012 [facility] [address] [id number] [address] [place] [address], [place] [address] Sep, [facility] [address] [id number] [address] [place] [address], [place] [address] 06 Sep, 2012 [facility] [address] [id number] [address] [place] [address], [place] [address] Sep, [facility] [address] [id number] [address] [place] [address], [place] [address] Aug, [facility] [address] [id number] [address] [place] [address], [place] [address] Aug, [facility] [address] [id number] [address] [place] [address], [place] [address] Aug, [facility] [address] [id number] [address] [place] [address], [place] [address] Aug, [facility] [address] [id number] [address] [place] [address], [place] [address] Aug, [facility] [address] [id number] [address] [place] [address], [place] [address] Aug, [facility] [address] [id number] [address] [place] [address], [place] [address] Jul, [facility] [address] [id number] [address] [place] [address], [place] [address] Jul, [facility] [address] [id number] [address] [place] [address], [place] [address] Jul, [facility] [address] [id number] [address] [place] [address], [place] [address] Jul, [facility] [address] [id number] [address] [place] [address], [place] [address] Jul, [facility] [address] [id number] [address] [place] [address], [place] [address] Jul, [facility] [address] [id number] [address] [place] [address], [place] [address] Jun, [facility] [address] [id number] [address] [place] [address], [place] [address] Jun, [facility] [address] [id number] [address] [place] [address], [place] [address] Jun, [facility] [address] [id number] [address] [place] [address], [place] [address] Jun, [facility] [address] [id number] [address] [place] [address], [place] [address] Jun, [facility] [address] [id number] [address] [place] [address], [place] [address] Jun, [facility] [address] [id number] [address] [place] [address], [place] [address] May, [facility] [address] [id number] [address] [place] [address], [place] [address] May, [facility] [address] [id number] [address] [place] [address], [place] [address] May, [facility] [address] [id number] [address] [place] [address], [place] [address] May, [facility] [address] [id number] [address] [place] [address], [place] [address] May, [facility] [address] [id number] [address] [place] [address], [place] [address] May, [facility] [address] [id number] [address] [place] [address], [place] [address] 28 May, 2012 [facility] [address] [id number] [address] [place] [address], [place] [address] May, [facility] [address] [id number] [address] [place] [address], [place] [address] May, [facility] [address] [id number] [address] [place] [address], [place] [address] May, [facility] [address] [id number] [address] [place] [address], [place] [address] 31 Apr, 2012 [facility] [address] [id number] [address] [place] [address], [place] [address] 31 Apr, 2012 [facility] [address] [id number] [address] [place] [address], [place] [address] Apr, [facility] [address] [id number] [address] [place] [address], [place] [address] 23 Apr, 2012 [facility] [address] [id number] [address] [place] [address], [place] [address] 16 Apr, 2012 [facility] [address] [id number] [address] [place] [address], [place] [address] 16 Apr, 2012 [facility] [address] [id number] [address] [place] [address], [place] [address] 15 Apr, 2012 [facility] [address] [id number] [address] [place] [address], [place] [address] 15 Apr, 2012 [facility] [address] [id number] [address] [place] [address], [place] [address] 05 Apr, 2012 [facility] [address] [id number] [address] [place] [address], [place] [address] 28 Mar, 2012 [facility] [address] [id number] [address] [place] [address], [place] [address] 26 Mar, 2012 [facility] [address] [id number] [address] [place] [address], [place] [address] 25 Mar, 2012 [facility] [address] [id number] [address] [place] [address], [place] [address] Mar, [facility] [address] [id number] [address] [place] [address], [place] [address] Mar, [facility] [address] [id number] [address] [place] [address], [place] [address] Mar, [facility] [address] [id number] [address] [place] [address], [place] [address] Feb, [facility] [address] [id number] [address] [place] [address], [place] [address] Feb, [facility] [address] [id number] [address] [place] [address], [place] [address] Feb, [facility] [address] [id number] [address] [place] [address], [place] [address] Jan, [facility] [address] [id number] [address] [place] [address], [place] [address] Jan, [facility] [address] [id number] [address] [place] [address], [place] [address] Jan, [facility] [address] [id number] [address] [place] [address], [place] [address] Jan, [facility] [address] [id number] [address] [place] [address], [place] [address] Dec, [facility] [address] [id number] [address] [place] [address], [place] [address] November, [facility] [address] [id number] [address] [place] [address], [place] [address] November, [facility] [address] [id number] [address] [place] [address], [place] [address] November, [facility] [address] [id number] [address] [place] [address], [place] [address] November, [facility] [address] [id number] [address] [place] [address], [place] [address] November, [facility] [address] [id number] [address] [place] [address], [place] [address] November, [facility] [address] [id number] [address] [place] [address], [place] [address] Oct, [facility] [address] [id number] [address] [place] [address], [place] [address] Oct, [facility] [address] [id number] [address] [place] [address], [place] [address] Sep, [facility] [address] [id number] [address] [place] [address], [place] [address] Sep, [facility] [address] [id number] [address] [place] [address], [place] [address] Sep, [facility] [address] [id number] [address] [place] [address], [place] [address] Aug, [facility] [address] [id number] [address] [place] [address], [place] [address] Aug, [facility] [address] [id number] [address] [place] [address], [place] [address] Aug, [facility] [address] [id number] [address] [place] [address], [place] [address] Aug, [facility] [address] [id number] [address] [place] [address], [place] [address] Aug, [facility] [address] [id number] [address] [place] [address], [place] [address] Aug, [facility] [address] [id number] [address] [place] [address], [place] [address] Jul, [facility] [address] [id number] [address] [place] [address], [place] [address] Jul, [facility] [address] [id number] [address] [place] [address], [place] [address] Jul, [facility] [address] [id number] [address] [place] [address], [place] [address] 20 Jul, 2011 [facility] [address] [id number] [address] [place] [address], [place] [address] Jul, [facility] [address] [id number] [address] [place] [address], [place] [address] 18 Jul, 2011 [facility] [address] [id number] [address] [place] [address], [place] [address] 17 Jul, 2011 [facility] [address] [id number] [address] [place] [address], [place] [address] Jul, [facility] [address] [id number] [address] [place] [address], [place] [address] Jul, [facility] [address] [id number] [address] [place] [address], [place] [address] Jul, [facility] [address] [id number] [address] [place] [address], [place] [address] Jun, [facility] [address] [id number] [address] [place] [address], [place] [address] Jun, [facility] [address] [id number] [address] [place] [address], [place] [address] Jun, [facility] [address] [id number] [address] [place] [address], [place] [address] Jun, [facility] [address] [id number] [address] [place] [address], [place] [address] May, [facility] [address] [id number] [address] [place] [address], [place] [address] May, [facility] [address] [id number] [address] [place] [address], [place] [address] May, [facility] [address] [id number] [address] [place] [address], [place] [address] 08 May, 2011 [facility] [address] [id number] [address] [place] [address], [place] [address] 31 Apr, 2011 [facility] [address] [id number] [address] [place] [address], [place] [address] 31 Apr, 2011 [facility] [address] [id number] [address] [place] [address], [place] [address] 10 Nov, 2010 [facility] [address] [id number] [address] [place] [address], [place] [address] 18 Oct, 2010 [facility] [address] [id number] [address] [place] [address], [place] [address] 17 Aug, 2010 [facility] [address] [id number] [address] [place] [address], [place] [address] 28 Jun, 2010 [facility] [address] [id number] [address] [place] [address], [place] [address] 28 Jun, 2010 [facility] [address] [id number] [address] [place] [address], [place] [address] Jun, [facility] [address] [id number] [address] [place] [address], [place] [address] 03 Jun, 2010 [facility] [address] [id number] [address] [place] [address], [place] [address] 29 May, 2010 [facility] [address] [id number] [address] [place] [address], [place] [address] 27 Apr, 2010 [facility] [address] [id number] [address] [place] [address], [place] [address] 13 Oct, 2009 [facility] [address] [id number] [address] [place] [address], [place] [address] 13 Aug, 2009 [facility] [address] [id number] [address] [place] [address], [place] [address] Jul, [facility] [address] [id number] [address] [place] [address], [place] [address] 22 Jun, 2009 [facility] [address] [id number] [address] [place] [address], [place] [address] 16 Jun, 2009 [facility] [address] [id number] [address] [place] [id number] 14 Jun, 2009 [facility] [address] [facility] [id number] [address] [place] [id number] 14 Jun, 2009 [facility] [address] [facility] [id number] [address] [place] [phone] May[facility] [address] [facility] [id number] [address] [place] [phone] Apr, [facility] [address] [facility] [id number] [address] [place] [id number] 15 Mar, 2009 [facility] [address] [facility] [id number] [address] [place] [id number] 14 Mar, 2009 [facility] [address] [facility] [id number] [address] [place] [id number] Dec, IMMUNIZATIONS No Known Immunizations SOCIAL HISTORY [...]
--- OUTSIDE RECORDS SUMMARY | 2019-09-01 05:07 | XMS REPORT ---
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 [address] [id number] [address] [place] [address], [place] [address] Jun, [facility] [address] [id number] [address] [place] [address], [place] [address] Jun, [facility] [address] [id number] [address] [place] [address], [place] [address] Jun, [facility] [address] [id number] [address] [place] [address], [place] [address] Jun, [facility] [address] [id number] [address] [place] [address], [place] [address] 16 Jun, 2014 [facility] [address] [id number] [address] [place] [address], [place] [address] 16 Jun, 2014 [facility] [address] [id number] [address] [place] [address], [place] [address] 12 Jun, 2014 [facility] [address] [id number] [address] [place] [address], [place] [address] 05 Jun, 2014 [facility] [address] [id number] [address] [place] [address], [place] [address] 05 Jun, 2014 [facility] [address] [id number] [address] [place] [address], [place] [address] 03 Jun, 2014 [facility] [address] [id number] [address] [place] [address], [place] [address] 03 Jun, 2014 [facility] [address] [id number] [address] [place] [address], [place] [address] 02 Jun, 2014 [facility] [address] [id number] [address] [place] [address], [place] [address] Jun, [facility] [address] [id number] [address] [place] [address], [place] [address] Jun, [facility] [address] [id number] [address] [place] [address], [place] [address] Jun, [facility] [address] [id number] [address] [place] [address], [place] [address] Jun, [facility] [address] [id number] [address] [place] [address], [place] [address] Jun, [facility] [address] [id number] [address] [place] [address], [place] [address] May, [facility] [address] [id number] [address] [place] [address], [place] [address] May, [facility] [address] [id number] [address] [place] [address], [place] [address] May, [facility] [address] [id number] [address] [place] [address], [place] [address] May, [facility] [address] [id number] [address] [place] [address], [place] [address] Apr, [facility] [address] [id number] [address] [place] [address], [place] [address] Apr, [facility] [address] [id number] [address] [place] [address], [place] [address] Apr, [facility] [address] [id number] [address] [place] [address], [place] [address] Apr, [facility] [address] [id number] [address] [place] [address], [place] [address] Apr, [facility] [address] [id number] [address] [place] [address], [place] [address] Apr, [facility] [address] [id number] [address] [place] [address], [place] [address] Apr, [facility] [address] [id number] [address] [place] [address], [place] [address] 08 Apr, 2013 [facility] [address] [id number] [address] [place] [address], [place] [address] Apr, [facility] [address] [id number] [address] [place] [address], [place] [address] Apr, [facility] [address] [id number] [address] [place] [address], [place] [address] 29 Mar, 2013 [facility] [address] [id number] [address] [place] [address], [place] [address] 29 Mar, 2013 [facility] [address] [id number] [address] [place] [address], [place] [address] 29 Mar, 2013 [facility] [address] [id number] [address] [place] [address], [place] [address] 29 Mar, 2013 [facility] [address] [id number] [address] [place] [address], [place] [address] 10 Mar, 2013 [facility] [address] [id number] [address] [place] [address], [place] [address] 10 Mar, 2013 [facility] [address] [id number] [address] [place] [address], [place] [address] 04 Mar, 2013 [facility] [address] [id number] [address] [place] [address], [place] [address] 04 Mar, 2013 [facility] [address] [id number] [address] [place] [address], [place] [address] Sep, 2013 [facility] [address] [id number] [address] [place] [address], [place] [address] Mar, 2013 [facility] [address] [id number] [address] [place] [address], [place] [address] Mar, 2013 [facility] [address] [id number] [address] [place] [address], [place] [address] Mar, 2013 [facility] [address] [id number] [address] [place] [address], [place] [address] Feb, [facility] [address] [id number] [facility] [address] Feb, [facility] [address] [id number] [address] [place] [address], [place] [address] Jan, [facility] [address] [id number] [address] [place] [address], [place] [address] Jan, [facility] [address] [id number] [address] [place] [address], [place] [address] Jan, [facility] [address] [id number] [address] [place] [address], [place] [address] Jan, [facility] [address] [id number] [address] [place] [address], [place] [address] Dec, [facility] [address] [id number] [address] [place] [address], [place] [address] Dec, [facility] [address] [id number] [address] [place] [address], [place] [address] Dec, [facility] [address] [id number] [address] [place] [address], [place] [address] Dec, [facility] [address] [id number] [address] [place] [address], [place] [address] Dec, [facility] [address] [id number] [address] [place] [address], [place] [address] Dec, [facility] [address] [id number] [address] [place] [address], [place] [address] November, [facility] [address] [id number] [address] [place] [address], [place] [address] November, [facility] [address] [id number] [address] [place] [address], [place] [address] November, [facility] [address] [id number] [address] [place] [address], [place] [address] November, [facility] [address] [id number] [address] [place] [address], [place] [id number] November, [facility] [address] [id number] [address] [place] [address], [place] [id number] November, [facility] [address] [place], [place] [id number] November, [facility] [address] [id number] [address] [place] [address], [place] [id number] November, [facility] [address] [id number] [address] [place] [address], [place] [id number] November, [facility] [address] [id number] [address] [place] [address], [place] [id number] November, [facility] [address] [id number] [address] [place] [address], [place] [id number] November, [facility] [address] [id number] [address] [place] [address], [place] [id number] November, [facility] [address] [id number] [address] [place] [address], [place] [id number] Oct, [facility] [address] [id number] [address] [place] [address], [place] [id number] Oct, [facility] [address] [id number] [address] [place] [address], [place] [id number] Oct, [facility] [address] [id number] [address] [place] [address], [place] [id number] Oct, [facility] [address] [id number] [address] [place] [address], [place] [id number] Oct, [facility] [address] [id number] [address] [place] [address], [place] [id number] Oct, [facility] [address] [id number] [address] [place] [address], [place] [id number] Oct, [facility] [address] [id number] [address] [place] [address], [place] [id number] Oct, [facility] [address] [id number] [facility] [address] Oct, [facility] [address] [id number] [facility] [address] Oct, [facility] [address] [id number] [facility] [address] Oct, [facility] [address] [id number] [address] [place] [address], [place] [address] Oct, [facility] [address] [id number] [address] [place] [address], [place] [address] Oct, [facility] [address] [id number] [address] [place] [address], [place] [id number] Oct, [facility] [address] [id number] [address] [place] [address], [place] [id number] Oct, [facility] [address] [id number] [address] [place] [address], [place] [id number] Sep, [facility] [address] [id number] [address] [place] [address], [place] [address] Sep, [facility] [address] [id number] [address] [place] [address], [place] [address] Sep, [facility] [address] [id number] [address] [place] [address], [place] [id number] Sep, [facility] [address] [id number] [address] [place] [address], [place] [id number] Aug, [facility] [address] [id number] [address] [place] [address], [place] [id number] Aug, [facility] [address] [id number] [address] [place] [address], [place] [id number] Aug, [facility] [address] [id number] [address] [place] [address], [place] [address] Aug, [facility] [address] [id number] [address] [place] [address], [place] [id number] Jul, [facility] [address] [id number] [address] [place] [address], [place] [id number] Jul, [facility] [address] [id number] [address] [place] [address], [place] [id number] Jul, [facility] [address] [id number] [address] [place] [address], [place] [id number] Jul, [facility] [address] [id number] [address] [place] [address], [place] [id number] Jul, [facility] [address] [id number] [address] [place] [address], [place] [id number] Jul, [facility] [address] [id number] [address] [place] [address], [place] [id number] Jul, [facility] [address] [id number] [address] [place] [address], [place] [id number] Jul, [facility] [address] [id number] [address] [place] [address], [place] [id number] Jul, [facility] [address] [id number] [address] [place] [address], [place] [id number] Jul, [facility] [facility] [address] [id number] [address] [place] [address], [place] [address] Jul, [facility] [address] [id number] [address] [place] [address], [place] [address] Jul, [facility] [address] [id number] [address] [place] [address], [place] [address] Jul, [facility] [address] [id number] [address] [place] [address], [place] [address] Jul, [facility] [address] [id number] [address] [place] [address], [place] [address] Jun, [facility] [address] [id number] [address] [place] [address], [place] [address] Jun, [facility] [address] [id number] [address] [place] [address], [place] [address] Jun, [facility] [address] [id number] [address] [place] [address], [place] [address] Jun, [facility] [address] [id number] [address] [place] [address], [place] [address] May, [facility] [address] [id number] [address] [place] [address], [place] [address] May, [facility] [address] [id number] [address] [place] [address], [place] [address] May, [facility] [address] [id number] [address] [place] [address], [place] [address] May, [facility] [address] [id number] [address] [place] [address], [place] [address] May, [facility] [address] [id number] [address] [place] [address], [place] [address] May, [facility] [address] [id number] [address] [place] [address], [place] [address] May, [facility] [address] [id number] [address] [place] [address], [place] [address] May, [facility] [address] [id number] [address] [place] [address], [place] [address] Apr, [facility] [address] [id number] [address] [place] [address], [place] [address] Apr, [facility] [address] [id number] [address] [place] [address], [place] [address] Apr, [facility] [address] [id number] [address] [place] [address], [place] [address] Apr, [facility] [address] [id number] [address] [place] [address], [place] [address] Apr, [facility] [address] [id number] [address] [place] [address], [place] [address] Apr, [facility] [address] [id number] [address] [place] [address], [place] [address] 30 Mar, 2012 [facility] [address] [id number] [address] [place] [address], [place] [address] 26 Mar, 2013 [facility] [address] [id number] [address] [place] [address], [place] [address] 20 Mar, 2012 [facility] [address] [id number] [address] [place] [address], [place] [address] 17 Mar, 2013 [facility] [address] [id number] [address] [place] [address], [place] [address] 16 Mar, 2013 [facility] [address] [id number] [address] [place] [address], [place] [id number] 05 Mar, 2013 [facility] [address] [id number] [address] [place] [address], [place] [address] Feb, [facility] [address] [id number] [address] [place] [address], [place] [id number] Feb, [facility] [address] [id number] [address] [place] [address], [place] [address] Feb, [facility] [address] [id number] [address] [place] [address], [place] [address] Feb, [facility] [address] [id number] [address] [place] [address], [place] [address] Jan, [facility] [address] [id number] [address] [place] [address], [place] [address] Jan, [facility] [address] [id number] [address] [place] [address], [place] [address] Jan, [facility] [address] [id number] [address] [place] [address], [place] [address] Jan, [facility] [address] [id number] [address] [place] [address], [place] [address] Jan, [facility] [address] [id number] [address] [place] [address], [place] [address] Dec, [facility] [address] [id number] [address] [place] [address], [place] [address] Dec, [facility] [address] [id number] [address] [place] [address], [place] [address] Dec, [facility] [address] [id number] [address] [place] [address], [place] [address] November, [facility] [address] [id number] [address] [place] [address], [place] [address] November, [facility] [address] [id number] [address] [place] [address], [place] [address] November, [facility] [address] [id number] [address] [place] [address], [place] [address] Oct, [facility] [address] [id number] [address] [place] [address], [place] [address] Oct, [facility] [address] [id number] [address] [place] [address], [place] [address] Oct, [facility] [address] [id number] [address] [place] [address], [place] [address] Oct, [facility] [address] [id number] [address] [place] [address], [place] [address] 18 Oct, 2012 [facility] [address] [id number] [address] [place] [address], [place] [address] 17 Oct, 2012 [facility] [address] [id number] [address] [place] [address], [place] [address] 15 Oct, 2012 [facility] [address] [id number] [address] [place] [address], [place] [address] Sep, [facility] [address] [id number] [address] [place] [address], [place] [address] Sep, [facility] [address] [id number] [address] [place] [address], [place] [address] Sep, [facility] [address] [id number] [address] [place] [address], [place] [address] Sep, [facility] [address] [id number] [address] [place] [address], [place] [address] Aug, [facility] [address] [id number] [address] [place] [address], [place] [address] Aug, [facility] [address] [id number] [address] [place] [address], [place] [address] Aug, [facility] [address] [id number] [address] [place] [address], [place] [address] Aug, [facility] [address] [id number] [address] [place] [address], [place] [address] Aug, [facility] [address] [id number] [address] [place] [address], [place] [address] Aug, [facility] [address] [id number] [address] [place] [address], [place] [address] Jul, [facility] [address] [id number] [address] [place] [address], [place] [address] Jul, [facility] [address] [id number] [address] [place] [address], [place] [address] Jul, [facility] [address] [id number] [address] [place] [address], [place] [address] Jul, [facility] [address] [id number] [address] [place] [address], [place] [address] Jul, [facility] [address] [id number] [address] [place] [address], [place] [address] Jul, [facility] [address] [id number] [address] [place] [address], [place] [address] Jun, [facility] [address] [id number] [address] [place] [address], [place] [address] Jun, [facility] [address] [id number] [address] [place] [address], [place] [address] Jun, [facility] [address] [id number] [address] [place] [address], [place] [address] Jun, [facility] [address] [id number] [address] [place] [address], [place] [address] Jun, [facility] [address] [id number] [address] [place] [address], [place] [address] Jun, [facility] [address] [id number] [address] [place] [address], [place] [address] May, [facility] [address] [id number] [address] [place] [address], [place] [address] May, [facility] [address] [id number] [address] [place] [address], [place] [address] May, [facility] [address] [id number] [address] [place] [address], [place] [address] May, [facility] [address] [id number] [address] [place] [address], [place] [address] May, [facility] [address] [id number] [address] [place] [address], [place] [address] May, [facility] [address] [id number] [address] [place] [address], [place] [address] May, [facility] [address] [id number] [address] [place] [address], [place] [address] May, [facility] [address] [id number] [address] [place] [address], [place] [address] May, [facility] [address] [id number] [address] [place] [address], [place] [address] May, [facility] [address] [id number] [address] [place] [address], [place] [address] Apr, [facility] [address] [id number] [address] [place] [address], [place] [address] Apr, [facility] [address] [id number] [address] [place] [address], [place] [address] 23 Apr, 2012 [facility] [address] [id number] [address] [place] [address], [place] [address] 23 Apr, 2012 [facility] [address] [id number] [address] [place] [address], [place] [address] 16 Apr, 2012 [facility] [address] [id number] [address] [place] [address], [place] [address] 16 Apr, 2012 [facility] [address] [id number] [address] [place] [address], [place] [address] 15 Apr, 2012 [facility] [address] [id number] [address] [place] [address], [place] [address] 15 Apr, 2012 [facility] [address] [id number] [address] [place] [address], [place] [address] 05 Apr, 2012 [facility] [address] [id number] [address] [place] [address], [place] [address] 28 Mar, 2012 [facility] [address] [id number] [address] [place] [address], [place] [address] 26 Mar, 2012 [facility] [address] [id number] [address] [place] [address], [place] [address] 25 Mar, 2012 [facility] [address] [id number] [address] [place] [address], [place] [id number] 19 Mar, 2012 [facility] [address] [id number] [address] [place] [address], [place] [address] 18 Mar, 2012 [facility] [address] [id number] [address] [place] [address], [place] [address] 05 Mar, 2012 [facility] [address] [id number] [address] [place] [address], [place] [address] 28 Feb, 2012 [facility] [address] [id number] [address] [place] [address], [place] [address] Feb, [facility] [address] [id number] [address] [place] [address], [place] [address] Feb, [facility] [address] [id number] [facility] [address] Jan, [facility] [address] [id number] [address] [place] [address], [place] [address] Jan, [facility] [address] [id number] [address] [place] [address], [place] [address] Jan, [facility] [address] [id number] [address] [place] [address], [place] [address] Jan, [facility] [address] [id number] [address] [place] [address], [place] [address] Dec, [facility] [address] [id number] [address] [place] [address], [place] [address] November, [facility] [address] [id number] [address] [place] [address], [place] [address] November, [facility] [address] [id number] [address] [place] [address], [place] [address] November, [facility] [address] [id number] [address] [place] [address], [place] [address] November, [facility] [address] [id number] [address] [place] [address], [place] [address] November, [facility] [address] [id number] [address] [place] [address], [place] [address] November, [facility] [address] [id number] [address] [place] [address], [place] [address] Oct, [facility] [address] [id number] [address] [place] [address], [place] [address] Oct, [facility] [address] [id number] [address] [place] [address], [place] [address] Sep, [facility] [address] [id number] [address] [place] [address], [place] [address] Sep, [facility] [address] [id number] [address] [place] [address], [place] [address] Sep, [facility] [address] [id number] [address] [place] [address], [place] [address] Aug, [facility] [address] [id number] [address] [place] [address], [place] [address] Aug, [facility] [address] [id number] [address] [place] [address], [place] [address] 14 Aug, 2011 [facility] [address] [id number] [address] [place] [address], [place] [address] Aug, [facility] [address] [id number] [address] [place] [address], [place] [address] Aug, [facility] [address] [id number] [address] [place] [address], [place] [address] Aug, [facility] [address] [id number] [address] [place] [address], [place] [address] Jul, [facility] [address] [id number] [address] [place] [address], [place] [address] Jul, [facility] [address] [id number] [address] [place] [address], [place] [address] Jul, [facility] [address] [id number] [address] [place] [address], [place] [address] Jul, [facility] [address] [id number] [address] [place] [address], [place] [address] Jul, [facility] [address] [id number] [address] [place] [address], [place] [address] Jul, [facility] [address] [id number] [address] [place] [address], [place] [address] Jul, [facility] [address] [id number] [address] [place] [address], [place] [address] Jul, [facility] [address] [id number] [address] [place] [address], [place] [address] Jul, [facility] [address] [id number] [address] [place] [address], [place] [address] Jul, [facility] [address] [id number] [address] [place] [address], [place] [address] Jun, [facility] [address] [id number] [address] [place] [address], [place] [address] Jun, [facility] [address] [id number] [address] [place] [address], [place] [address] Jun, [facility] [address] [id number] [address] [place] [address], [place] [address] Jun, [facility] [address] [id number] [address] [place] [address], [place] [address] May, [facility] [address] [id number] [address] [place] [address], [place] [address] May, [facility] [address] [id number] [address] [place] [address], [place] [address] May, [facility] [address] [id number] [address] [place] [address], [place] [address] May, [facility] [address] [id number] [address] [place] [address], [place] [address] Apr, [facility] [address] [id number] [address] [place] [address], [place] [address] Apr, [facility] [address] [id number] [address] [place] [address], [place] [address] November, [facility] [address] [id number] [address] [place] [address], [place] [address] Oct, [facility] [address] [id number] [address] [place] [address], [place] [address] Aug, [facility] [address] [id number] [address] [place] [address], [place] [address] Jun, [facility] [address] [id number] [address] [place] [address], [place] [address] 28 Jun, 2010 [facility] [address] [id number] [address] [place] [address], [place] [address] 27 Jun, 2010 [facility] [address] [id number] [address] [place] [address], [place] [address] 03 Jun, 2010 [facility] [address] [id number] [address] [place] [address], [place] [address] 29 May, 2010 [facility] [address] [id number] [address] [place] [address], [place] [address] 27 Apr, 2010 [facility] [address] [id number] [address] [place] [address], [place] [address] Oct, [facility] [address] [id number] [address] [place] [address], [place] [id number] 13 Aug, 2009 [facility] [address] [id number] [address] [place] [address], [place] [id number] 20 Jul, 2009 [facility] [address] [id number] [address] [place] [address], [place] [id number] 22 Jun, 2009 [facility] [address] [id number] [address] [place] [address], [place] [id number] 16 Jun, 2009 [facility] [address] [id number] [address] [place] [address], [place] [id number] 14 Jun, 2009 [facility] [address] [id number] [address] [place] [address], [place] [id number] 14 Jun, 2009 [facility] [address] [id number] [address] [place] [address], [place] [id number] 09 May, 2009 [facility] [address] [id number] [address] [place] [address], [place] [id number] 20 Apr, 2009 [facility] [address] [id number] [address] [place] [address], [place] [id number] 15 Mar, 2009 [facility] [address] [id number] [address] [place] [id number] 14 Mar, 2009 [facility] [address] [facility] [id number] [address] [place] [address] Dec, IMMUNIZATIONS No Known Immunizations SOCIAL HISTORY [...]
--- OUTSIDE RECORDS SUMMARY | 2019-09-01 05:07 | XMS REPORT ---
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 Jun, [facility] [address] [id number] [address] [place] [address], [place] [address] Jun, [facility] [address] [id number] [address] [place] [address], [place] [address] Jun, [facility] [address] [id number] [address] [place] [address], [place] [address] Jun, [facility] [address] [id number] [address] [place] [address], [place] [address] 16 Jun, 2014 [facility] [address] [id number] [address] [place] [address], [place] [address] 16 Jun, 2014 [facility] [address] [id number] [address] [place] [address], [place] [address] 12 Jun, 2014 [facility] [address] [id number] [address] [place] [address], [place] [address] 05 Jun, 2014 [facility] [address] [id number] [address] [place] [address], [place] [address] 05 Jun, 2014 [facility] [address] [id number] [address] [place] [address], [place] [address] 03 Jun, 2014 [facility] [address] [id number] [address] [place] [address], [place] [address] 03 Jun, 2014 [facility] [address] [id number] [address] [place] [address], [place] [address] 02 Jun, 2014 [facility] [address] [id number] [address] [place] [address], [place] [address] Jun, [facility] [address] [id number] [address] [place] [address], [place] [address] Jun, [facility] [address] [id number] [address] [place] [address], [place] [address] Jun, [facility] [address] [id number] [address] [place] [address], [place] [address] Jun, [facility] [address] [id number] [address] [place] [address], [place] [address] Jun, [facility] [address] [id number] [address] [place] [address], [place] [address] May, [facility] [address] [id number] [address] [place] [address], [place] [address] May, [facility] [address] [id number] [address] [place] [address], [place] [address] May, [facility] [address] [id number] [address] [place] [address], [place] [address] May, [facility] [address] [id number] [address] [place] [address], [place] [address] Apr, [facility] [address] [id number] [address] [place] [address], [place] [address] Apr, [facility] [address] [id number] [address] [place] [address], [place] [address] Apr, [facility] [address] [id number] [address] [place] [address], [place] [address] Apr, [facility] [address] [id number] [address] [place] [address], [place] [address] Apr, [facility] [address] [id number] [address] [place] [address], [place] [address] Apr, [facility] [address] [id number] [address] [place] [address], [place] [address] Apr, [facility] [address] [id number] [address] [place] [address], [place] [address] 08 Apr, 2013 [facility] [address] [id number] [address] [place] [address], [place] [address] Apr, [facility] [address] [id number] [address] [place] [address], [place] [address] Apr, [facility] [address] [id number] [address] [place] [address], [place] [address] 29 Mar, 2013 [facility] [address] [id number] [address] [place] [address], [place] [address] 29 Mar, 2013 [facility] [address] [id number] [address] [place] [address], [place] [address] 29 Mar, 2013 [facility] [address] [id number] [address] [place] [address], [place] [address] 29 Mar, 2013 [facility] [address] [id number] [address] [place] [address], [place] [address] 10 Mar, 2013 [facility] [address] [id number] [address] [place] [address], [place] [address] 10 Mar, 2013 [facility] [address] [id number] [address] [place] [address], [place] [address] 04 Mar, 2013 [facility] [address] [id number] [address] [place] [address], [place] [address] 04 Mar, 2013 [facility] [address] [id number] [address] [place] [address], [place] [address] Sep, 2013 [facility] [address] [id number] [address] [place] [address], [place] [address] Mar, 2013 [facility] [address] [id number] [address] [place] [address], [place] [address] Mar, 2013 [facility] [address] [id number] [address] [place] [address], [place] [address] Mar, 2013 [facility] [address] [id number] [address] [place] [address], [place] [address] Feb, [facility] [address] [id number] [facility] [place] [address] Feb, [facility] [address] [id number] [address] [place] [address], [place] [address] Jan, [facility] [address] [id number] [address] [place] [address], [place] [address] Jan, [facility] [address] [id number] [address] [place] [address], [place] [address] Jan, [facility] [address] [id number] [address] [place] [address], [place] [address] Jan, [facility] [address] [id number] [address] [place] [address], [place] [address] Dec, [facility] [address] [id number] [address] [place] [address], [place] [address] Dec, [facility] [address] [id number] [address] [place] [address], [place] [address] Dec, [facility] [address] [id number] [address] [place] [address], [place] [address] Dec, [facility] [address] [id number] [address] [place] [address], [place] [address] Dec, [facility] [address] [id number] [address] [place] [address], [place] [address] Dec, [facility] [address] [id number] [address] [place] [address], [place] [address] November, [facility] [address] [id number] [address] [place] [address], [place] [address] November, [facility] [address] [id number] [address] [place] [address], [place] [address] November, [facility] [address] [id number] [address] [place] [address], [place] [address] November, [facility] [address] [id number] [address] [place] [address], [place] [address] November, [facility] [address] [id number] [address] [place] [address], [place] [address] November, [facility] [address] [place] [id number] November, [facility] [address] [id number] [address] [place] [address], [place] [address] November, [facility] [address] [id number] [address] [place] [address], [place] [address] November, [facility] [address] [id number] [address] [place] [address], [place] [address] November, [facility] [address] [id number] [address] [place] [address], [place] [address] November, [facility] [address] [id number] [address] [place] [address], [place] [address] November, [facility] [address] [id number] [address] [place] [address], [place] [address] Oct, [facility] [address] [id number] [address] [place] [address], [place] [address] Oct, [facility] [address] [id number] [address] [place] [address], [place] [address] Oct, [facility] [address] [id number] [address] [place] [address], [place] [address] Oct, [facility] [address] [id number] [address] [place] [address], [place] [address] Oct, [facility] [address] [id number] [address] [place] [address], [place] [address] Oct, [facility] [address] [id number] [address] [place] [address], [place] [address] Oct, [facility] [address] [id number] [address] [place] [address], [place] [address] Oct, [facility] [address] [id number] [address] [place] [address] Oct, [facility] [address] [id number] [facility] [place] [address] Oct, [facility] [address] [id number] [facility] [place] [address] Oct, [facility] [address] [id number] [address] [place] [address], [place] [address] Oct, [facility] [address] [id number] [address] [place] [address], [place] [address] Oct, [facility] [address] [id number] [address] [place] [address], [place] [address] Oct, [facility] [address] [id number] [address] [place] [address], [place] [address] Oct, [facility] [address] [id number] [address] [place] [address], [place] [address] Sep, [facility] [address] [id number] [address] [place] [address], [place] [address] Sep, [facility] [address] [id number] [address] [place] [address], [place] [address] Sep, [facility] [address] [id number] [address] [place] [address], [place] [address] Sep, [facility] [address] [id number] [address] [place] [address], [place] [address] Aug, [facility] [address] [id number] [address] [place] [address], [place] [address] Aug, [facility] [address] [id number] [address] [place] [address], [place] [address] Aug, [facility] [address] [id number] [address] [place] [address], [place] [address] Aug, [facility] [address] [id number] [address] [place] [address], [place] [address] Jul, [facility] [address] [id number] [address] [place] [address], [place] [address] Jul, [facility] [address] [id number] [address] [place] [address], [place] [address] Jul, [facility] [address] [id number] [address] [place] [address], [place] [address] Jul, [facility] [address] [id number] [address] [place] [address], [place] [address] Jul, [facility] [address] [id number] [address] [place] [address], [place] [address] Jul, [facility] [address] [id number] [address] [place] [address], [place] [address] Jul, [facility] [address] [id number] [address] [place] [address], [place] [address] Jul, [facility] [address] [id number] [address] [place] [address], [place] [address] Jul, [facility] [address] [id number] [address] [place] [address], [place] [address] Jul, [facility] [address] [id number] [address] [place] [address], [place] [address] Jul, [facility] [address] [id number] [address] [place] [address], [place] [address] Jul, [facility] [address] [id number] [address] [place] [address], [place] [address] Jul, [facility] [address] [id number] [address] [place] [address], [place] [address] Jul, [facility] [address] [id number] [address] [place] [address], [place] [address] Jun, [facility] [address] [id number] [address] [place] [address], [place] [address] Jun, [facility] [address] [id number] [address] [place] [address], [place] [address] Jun, [facility] [address] [id number] [address] [place] [address], [place] [address] Jun, [facility] [address] [id number] [address] [place] [address], [place] [address] May, [facility] [address] [id number] [address] [place] [address], [place] [address] May, [facility] [address] [id number] [address] [place] [address], [place] [address] May, [facility] [address] [id number] [address] [place] [address], [place] [address] May, [facility] [address] [id number] [address] [place] [address], [place] [address] May, [facility] [address] [id number] [address] [place] [address], [place] [address] May, [facility] [address] [id number] [address] [place] [address], [place] [address] May, [facility] [address] [id number] [address] [place] [address], [place] [address] May, [facility] [address] [id number] [address] [place] [address], [place] [address] Apr, [facility] [address] [id number] [address] [place] [address], [place] [address] Apr, [facility] [address] [id number] [address] [place] [address], [place] [address] Apr, [facility] [address] [id number] [address] [place] [address], [place] [address] Apr, [facility] [address] [id number] [address] [place] [address], [place] [address] Apr, [facility] [address] [id number] [address] [place] [address], [place] [address] Apr, [facility] [address] [id number] [address] [place] [address], [place] [address] 30 Mar, 2012 [facility] [address] [id number] [address] [place] [address], [place] [address] 26 Mar, 2013 [facility] [address] [id number] [address] [place] [address], [place] [address] 20 Mar, 2012 [facility] [address] [id number] [address] [place] [address], [place] [address] 17 Mar, 2013 [facility] [address] [id number] [address] [place] [address], [place] [address] 16 Mar, 2013 [facility] [address] [id number] [address] [place] [address], [place] [address] 05 Mar, 2013 [facility] [address] [id number] [address] [place] [address], [place] [address] Feb, [facility] [address] [id number] [address] [place] [address], [place] [address] Feb, [facility] [address] [id number] [address] [place] [address], [place] [address] Feb, [facility] [address] [id number] [address] [place] [address], [place] [address] Feb, [facility] [address] [id number] [address] [place] [address], [place] [address] Jan, [facility] [address] [id number] [address] [place] [address], [place] [address] Jan, [facility] [address] [id number] [address] [place] [address], [place] [address] Jan, [facility] [address] [id number] [address] [place] [address], [place] [address] Jan, [facility] [address] [id number] [address] [place] [address], [place] [address] Jan, [facility] [address] [id number] [address] [place] [address], [place] [address] Dec, [facility] [address] [id number] [address] [place] [address], [place] [address] Dec, [facility] [address] [id number] [address] [place] [address], [place] [address] Dec, [facility] [address] [id number] [address] [place] [address], [place] [address] November, [facility] [address] [id number] [address] [place] [address], [place] [address] November, [facility] [address] [id number] [address] [place] [address], [place] [address] November, [facility] [address] [id number] [address] [place] [address], [place] [address] Oct, [facility] [address] [id number] [address] [place] [address], [place] [address] Oct, [facility] [address] [id number] [address] [place] [address], [place] [address] Oct, [facility] [address] [id number] [address] [place] [address], [place] [address] Oct, [facility] [address] [id number] [address] [place] [address], [place] [address] 18 Oct, 2012 [facility] [address] [id number] [address] [place] [address], [place] [address] 17 Oct, 2012 [facility] [address] [id number] [address] [place] [address], [place] [address] 15 Oct, 2012 [facility] [address] [id number] [address] [place] [address], [place] [address] Sep, [facility] [address] [id number] [address] [place] [address], [place] [address] Sep, [facility] [address] [id number] [address] [place] [address], [place] [address] Sep, [facility] [address] [id number] [address] [place] [address], [place] [address] Sep, [facility] [address] [id number] [address] [place] [address], [place] [address] Aug, [facility] [address] [id number] [address] [place] [address], [place] [address] Aug, [facility] [address] [id number] [address] [place] [address], [place] [address] Aug, [facility] [address] [id number] [address] [place] [address], [place] [address] Aug, [facility] [address] [id number] [address] [place] [address], [place] [address] Aug, [facility] [address] [id number] [address] [place] [address], [place] [address] Aug, [facility] [address] [id number] [address] [place] [address], [place] [address] Jul, [facility] [address] [id number] [address] [place] [address], [place] [address] Jul, [facility] [address] [id number] [address] [place] [address], [place] [address] Jul, [facility] [address] [id number] [address] [place] [address], [place] [address] Jul, [facility] [address] [id number] [address] [place] [address], [place] [address] Jul, [facility] [address] [id number] [address] [place] [address], [place] [address] Jul, [facility] [address] [id number] [address] [place] [address], [place] [address] Jun, [facility] [address] [id number] [address] [place] [address], [place] [address] Jun, [facility] [address] [id number] [address] [place] [address], [place] [address] Jun, [facility] [address] [id number] [address] [place] [address], [place] [address] Jun, [facility] [address] [id number] [address] [place] [address], [place] [address] Jun, [facility] [address] [id number] [address] [place] [address], [place] [address] Jun, [facility] [address] [id number] [address] [place] [address], [place] [address] May, [facility] [address] [id number] [address] [place] [address], [place] [address] May, [facility] [address] [id number] [address] [place] [address], [place] [address] May, [facility] [address] [id number] [address] [place] [address], [place] [address] May, [facility] [address] [id number] [address] [place] [address], [place] [address] May, [facility] [address] [id number] [address] [place] [address], [place] [address] May, [facility] [address] [id number] [address] [place] [address], [place] [address] May, [facility] [address] [id number] [address] [place] [address], [place] [address] May, [facility] [address] [id number] [address] [place] [address], [place] [address] May, [facility] [address] [id number] [address] [place] [address], [place] [address] May, [facility] [address] [id number] [address] [place] [address], [place] [address] Apr, [facility] [address] [id number] [address] [place] [address], [place] [address] Apr, [facility] [address] [id number] [address] [place] [address], [place] [address] 23 Apr, 2012 [facility] [address] [id number] [address] [place] [address], [place] [address] 23 Apr, 2012 [facility] [address] [id number] [address] [place] [address], [place] [address] 16 Apr, 2012 [facility] [address] [id number] [address] [place] [address], [place] [address] 16 Apr, 2012 [facility] [address] [id number] [address] [place] [address], [place] [address] 15 Apr, 2012 [facility] [address] [id number] [address] [place] [address], [place] [address] 15 Apr, 2012 [facility] [address] [id number] [address] [place] [address], [place] [address] 05 Apr, 2012 [facility] [address] [id number] [address] [place] [address], [place] [address] 28 Mar, 2012 [facility] [address] [id number] [address] [place] [address], [place] [address] 26 Mar, 2012 [facility] [address] [id number] [address] [place] [address], [place] [address] 25 Mar, 2012 [facility] [address] [id number] [address] [place] [address], [place] [address] 19 Mar, 2012 [facility] [address] [id number] [address] [place] [address], [place] [address] 18 Mar, 2012 [facility] [address] [id number] [address] [place] [address], [place] [address] 05 Mar, 2012 [facility] [address] [id number] [address] [place] [address], [place] [address] 28 Feb, 2012 [facility] [address] [id number] [address] [place] [address], [place] [address] Feb, [facility] [address] [id number] [address] [place] [address], [place] [address] Feb, [facility] [address] [id number] [facility] [place] [address] Jan, [facility] [address] [id number] [address] [place] [address], [place] [address] Jan, [facility] [address] [id number] [address] [place] [address], [place] [address] Jan, [facility] [address] [id number] [address] [place] [address], [place] [address] Jan, [facility] [address] [id number] [address] [place] [address], [place] [address] Dec, [facility] [address] [id number] [address] [place] [address], [place] [address] November, [facility] [address] [id number] [address] [place] [address], [place] [address] November, [facility] [address] [id number] [address] [place] [address], [place] [address] November, [facility] [address] [id number] [address] [place] [address], [place] [address] November, [facility] [address] [id number] [address] [place] [address], [place] [address] November, [facility] [address] [id number] [address] [place] [address], [place] [address] November, [facility] [address] [id number] [address] [place] [address], [place] [address] Oct, [facility] [address] [id number] [address] [place] [address], [place] [address] Oct, [facility] [address] [id number] [address] [place] [address], [place] [address] Sep, [facility] [address] [id number] [address] [place] [address], [place] [address] Sep, [facility] [address] [id number] [address] [place] [address], [place] [address] Sep, [facility] [address] [id number] [address] [place] [address], [place] [address] Aug, [facility] [address] [id number] [address] [place] [address], [place] [address] Aug, [facility] [address] [id number] [address] [place] [address], [place] [address] 14 Aug, 2011 [facility] [address] [id number] [address] [place] [address], [place] [address] Aug, [facility] [address] [id number] [address] [place] [address], [place] [address] Aug, [facility] [address] [id number] [address] [place] [address], [place] [address] Aug, [facility] [address] [id number] [address] [place] [address], [place] [address] Jul, [facility] [address] [id number] [address] [place] [address], [place] [address] Jul, [facility] [address] [id number] [address] [place] [address], [place] [address] Jul, [facility] [address] [id number] [address] [place] [address], [place] [address] Jul, [facility] [address] [id number] [address] [place] [address], [place] [address] Jul, [facility] [address] [id number] [address] [place] [address], [place] [address] Jul, [facility] [address] [id number] [address] [place] [address], [place] [address] Jul, [facility] [address] [id number] [address] [place] [address], [place] [address] Jul, [facility] [address] [id number] [address] [place] [address], [place] [address] Jul, [facility] [address] [id number] [address] [place] [address], [place] [address] Jul, [facility] [address] [id number] [address] [place] [address], [place] [address] Jun, [facility] [address] [id number] [address] [place] [address], [place] [address] Jun, [facility] [address] [id number] [address] [place] [address], [place] [address] Jun, [facility] [address] [id number] [address] [place] [address], [place] [address] Jun, [facility] [address] [id number] [address] [place] [address], [place] [address] May, [facility] [address] [id number] [address] [place] [address], [place] [address] May, [facility] [address] [id number] [address] [place] [address], [place] [address] May, [facility] [address] [id number] [address] [place] [address], [place] [address] May, [facility] [address] [id number] [address] [place] [address], [place] [address] Apr, [facility] [address] [id number] [address] [place] [address], [place] [address] Apr, [facility] [address] [id number] [address] [place] [address], [place] [address] November, [facility] [address] [id number] [address] [place] [address], [place] [address] Oct, [facility] [address] [id number] [address] [place] [address], [place] [address] Aug, [facility] [address] [id number] [address] [place] [address], [place] [address] Jun, [facility] [address] [id number] [address] [place] [address], [place] [address] 28 Jun, 2010 [facility] [address] [id number] [address] [place] [address], [place] [address] 27 Jun, 2010 [facility] [address] [id number] [address] [place] [address], [place] [address] 03 Jun, 2010 [facility] [address] [id number] [address] [place] [address], [place] [address] 29 May, 2010 [facility] [address] [id number] [address] [place] [address], [place] [address] 27 Apr, 2010 [facility] [address] [id number] [address] [place] [address], [place] [address] Oct, [facility] [address] [id number] [address] [place] [address], [place] [address] 13 Aug, 2009 [facility] [address] [id number] [address] [place] [address], [place] [address] 20 Jul, 2009 [facility] [address] [id number] [address] [place] [address], [place] [address] 22 Jun, 2009 [facility] [address] [id number] [address] [place] [address], [place] [address] 16 Jun, 2009 [facility] [address] [id number] [address] [place] [address], [place] [address] 14 Jun, 2009 [facility] [address] [id number] [address] [place] [address], [place] [address] 14 Jun, 2009 [facility] [address] [id number] [address] [place] [address], [place] [address] 09 May, 2009 [facility] [address] [id number] [address] [place] [address], [place] [address] 20 Apr, 2009 [facility] [address] [id number] [address] [place] [address], [place] [address] 15 Mar, 2009 [facility] [address] [id number] [address] [place] [address] 14 Mar, 2009 [facility] [address] [facility] [id number] [address] [place] [address] Dec, IMMUNIZATIONS No Known Immunizations SOCIAL HISTORY [...]
--- OUTSIDE RECORDS SUMMARY | 2019-09-01 05:08 | XMS REPORT ---
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 [address] [id number] [address] [place] [address], [place] [address] Jun, [facility] [address] [id number] [address] [place] [address], [place] [address] Jun, [facility] [address] [id number] [address] [place] [address], [place] [address] Jun, [facility] [address] [id number] [address] [place] [address], [place] [address] 16 Jun, 2014 [facility] [address] [id number] [address] [place] [address], [place] [address] 16 Jun, 2014 [facility] [address] [id number] [address] [place] [address], [place] [address] Jun, [facility] [address] [id number] [address] [place] [address], [place] [address] 05 Jun, 2014 [facility] [address] [id number] [address] [place] [address], [place] [address] 05 Jun, 2014 [facility] [address] [id number] [address] [place] [address], [place] [address] Jun, [facility] [address] [id number] [address] [place] [address], [place] [address] Jun, [facility] [address] [id number] [address] [place] [address], [place] [address] 02 Jun, 2014 [facility] [address] [id number] [address] [place] [address], [place] [address] 02 Jun, 2014 [facility] [address] [id number] [address] [place] [address], [place] [address] Jun, [facility] [address] [id number] [address] [place] [address], [place] [address] Jun, [facility] [address] [id number] [address] [place] [address], [place] [address] Jun, [facility] [address] [id number] [address] [place] [address], [place] [address] Jun, [facility] [address] [id number] [address] [place] [address], [place] [address] May, [facility] [address] [id number] [address] [place] [address], [place] [address] May, [facility] [address] [id number] [address] [place] [address], [place] [address] May, [facility] [address] [id number] [address] [place] [address], [place] [address] May, [facility] [address] [id number] [address] [place] [address], [place] [address] Apr, [facility] [address] [id number] [address] [place] [address], [place] [address] Apr, [facility] [address] [id number] [address] [place] [address], [place] [address] Apr, [facility] [address] [id number] [address] [place] [address], [place] [address] Apr, [facility] [address] [id number] [address] [place] [address], [place] [address] Apr, [facility] [address] [id number] [address] [place] [address], [place] [address] Apr, [facility] [address] [id number] [address] [place] [address], [place] [address] Apr, [facility] [address] [id number] [address] [place] [address], [place] [address] Apr, [facility] [address] [id number] [address] [place] [address], [place] [address] Apr, [facility] [address] [id number] [address] [place] [address], [place] [address] Apr, [facility] [address] [id number] [address] [place] [address], [place] [address] Mar, 2013 [facility] [address] [id number] [address] [place] [address], [place] [address] Mar, 2013 [facility] [address] [id number] [address] [place] [address], [place] [address] Mar, 2013 [facility] [address] [id number] [address] [place] [address], [place] [address] Mar, 2013 [facility] [address] [id number] [address] [place] [address], [place] [address] Mar, 2013 [facility] [address] [id number] [address] [place] [address], [place] [address] Mar, 2013 [facility] [address] [id number] [address] [place] [address], [place] [address] Mar, 2013 [facility] [address] [id number] [address] [place] [address], [place] [address] Mar, 2013 [facility] [address] [id number] [address] [place] [address], [place] [address] Mar, 2013 [facility] [address] [id number] [address] [place] [address], [place] [address] Mar, 2013 [facility] [address] [id number] [address] [place] [address], [place] [address] Mar, 2013 [facility] [address] [id number] [address] [place] [address], [place] [address] Mar, 2013 [facility] [address] [id number] [address] [place] [address], [place] [address] Feb, [facility] [address] [id number] [address] [place] [address], [place] [address] Feb, [facility] [address] [id number] [facility] [address] Jan, [facility] [address] [id number] [address] [place] [address], [place] [address] Jan, [facility] [address] [id number] [address] [place] [address], [place] [address] Jan, [facility] [address] [id number] [address] [place] [address], [place] [address] Jan, [facility] [address] [id number] [address] [place] [address], [place] [address] Dec, [facility] [address] [id number] [address] [place] [address], [place] [address] Dec, [facility] [address] [id number] [address] [place] [address], [place] [address] Dec, [facility] [address] [id number] [address] [place] [address], [place] [address] Dec, [facility] [address] [id number] [address] [place] [address], [place] [address] Dec, [facility] [address] [id number] [address] [place] [address], [place] [address] Dec, [facility] [address] [id number] [address] [place] [address], [place] [address] November, [facility] [address] [id number] [address] [place] [address], [place] [address] November, [facility] [address] [id number] [address] [place] [address], [place] [address] November, [facility] [address] [id number] [address] [place] [address], [place] [address] November, [facility] [address] [id number] [address] [place] [address], [place] [address] November, [facility] [address] [id number] [address] [place] [address], [place] [address] November, [facility] [address] [place] [id number] November, [facility] [address] [id number] [address] [place] [address], [place] [address] November, [facility] [address] [id number] [address] [place] [address], [place] [address] November, [facility] [address] [id number] [address] [place] [address], [place] [address] November, [facility] [address] [id number] [address] [place] [address], [place] [address] November, [facility] [address] [id number] [address] [place] [address], [place] [address] November, [facility] [address] [id number] [address] [place] [address], [place] [address] Oct, [facility] [address] [id number] [address] [place] [address], [place] [address] Oct, [facility] [address] [id number] [address] [place] [address], [place] [address] Oct, [facility] [address] [id number] [address] [place] [address], [place] [address] Oct, [facility] [address] [id number] [address] [place] [address], [place] [address] Oct, [facility] [address] [id number] [address] [place] [address], [place] [address] Oct, [facility] [address] [id number] [address] [place] [address], [place] [address] Oct, [facility] [address] [id number] [address] [place] [address], [place] [address] Oct, [facility] [address] [id number] [address] [place] [address], [place] [address] Oct, [facility] [address] [id number] [facility] [address] Oct, [facility] [address] [id number] [facility] [address] Oct, [facility] [address] [id number] [facility] [address] Oct, [facility] [address] [id number] [address] [place] [address], [place] [address] Oct, [facility] [address] [id number] [address] [place] [address], [place] [address] Oct, [facility] [address] [id number] [address] [place] [address], [place] [address] Oct, [facility] [address] [id number] [address] [place] [address], [place] [address] Sep, [facility] [address] [id number] [address] [place] [address], [place] [id number] Sep, [facility] [address] [id number] [address] [place] [address], [place] [id number] Sep, [facility] [address] [id number] [address] [place] [address], [place] [address] Sep, [facility] [address] [id number] [address] [place] [address], [place] [address] Aug, [facility] [address] [id number] [address] [place] [address], [place] [address] Aug, [facility] [address] [id number] [address] [place] [address], [place] [address] Aug, [facility] [address] [id number] [address] [place] [address], [place] [id number] Aug, [facility] [address] [id number] [address] [place] [address], [place] [id number] Jul, [facility] [address] [id number] [address] [place] [address], [place] [address] Jul, [facility] [address] [id number] [address] [place] [address], [place] [id number] Jul, [facility] [address] [id number] [address] [place] [address], [place] [id number] Jul, [facility] [address] [id number] [address] [place] [address], [place] [address] Jul, [facility] [address] [id number] [address] [place] [address], [place] [address] Jul, [facility] [address] [id number] [address] [place] [address], [place] [address] Jul, [facility] [address] [id number] [address] [place] [address], [place] [address] Jul, [facility] [address] [id number] [address] [place] [address], [place] [address] Jul, [facility] [address] [id number] [address] [place] [address], [place] [address] Jul, [facility] [address] [id number] [address] [place] [address], [place] [address] Jul, [facility] [address] [id number] [address] [place] [address], [place] [id number] Jul, [facility] [address] [id number] [address] [place] [address], [place] [address] Jul, [facility] [address] [id number] [address] [place] [address], [place] [address] Jul, [facility] [address] [id number] [address] [place] [address], [place] [address] Jun, [facility] [address] [id number] [address] [place] [address], [place] [address] Jun, [facility] [address] [id number] [address] [place] [address], [place] [address] Jun, [facility] [address] [id number] [address] [place] [address], [place] [address] Jun, [facility] [address] [id number] [address] [place] [address], [place] [address] May, [facility] [address] [id number] [address] [place] [address], [place] [address] May, [facility] [address] [id number] [address] [place] [address], [place] [address] May, [facility] [address] [id number] [address] [place] [address], [place] [address] May, [facility] [address] [id number] [address] [place] [address], [place] [address] May, [facility] [address] [id number] [address] [place] [address], [place] [address] May, [facility] [address] [id number] [address] [place] [address], [place] [address] May, [facility] [address] [id number] [address] [place] [address], [place] [address] May, [facility] [address] [id number] [address] [place] [address], [place] [address] Apr, [facility] [address] [id number] [address] [place] [address], [place] [address] Apr, [facility] [address] [id number] [address] [place] [address], [place] [address] Apr, [facility] [address] [id number] [address] [place] [address], [place] [address] Apr, [facility] [address] [id number] [address] [place] [address], [place] [address] Apr, [facility] [address] [id number] [address] [place] [address], [place] [address] Apr, [facility] [address] [id number] [address] [place] [address], [place] [id number] Mar, [facility] [address] [id number] [address] [place] [address], [place] [address] 26 Mar, 2012 [facility] [address] [id number] [address] [place] [address], [place] [address] 20 Mar, 2013 [facility] [address] [id number] [address] [place] [address], [place] [id number] 17 Mar, 2013 [facility] [address] [id number] [address] [place] [address], [place] [id number] 16 Mar, 2013 [facility] [address] [id number] [address] [place] [address], [place] [address] 05 Mar, 2013 [facility] [address] [id number] [address] [place] [address], [place] [id number] 27 Feb, 2013 [facility] [address] [id number] [address] [place] [address], [place] [address] Feb, [facility] [address] [id number] [address] [place] [address], [place] [address] Feb, [facility] [address] [id number] [address] [place] [address], [place] [address] Feb, [facility] [address] [id number] [address] [place] [address], [place] [address] Jan, [facility] [address] [id number] [address] [place] [address], [place] [address] Jan, [facility] [address] [id number] [address] [place] [address], [place] [address] Jan, [facility] [address] [id number] [address] [place] [address], [place] [address] Jan, [facility] [address] [id number] [address] [place] [address], [place] [address] Jan, [facility] [address] [id number] [address] [place] [address], [place] [address] Dec, [facility] [address] [id number] [address] [place] [address], [place] [address] Dec, [facility] [address] [id number] [address] [place] [address], [place] [address] Dec, [facility] [address] [id number] [address] [place] [address], [place] [address] November, [facility] [address] [id number] [address] [place] [address], [place] [address] November, [facility] [address] [id number] [address] [place] [address], [place] [address] November, [facility] [address] [id number] [address] [place] [address], [place] [address] Oct, [facility] [address] [id number] [address] [place] [address], [place] [address] Oct, [facility] [address] [id number] [address] [place] [address], [place] [address] Oct, [facility] [address] [id number] [address] [place] [address], [place] [address] Oct, [facility] [address] [id number] [address] [place] [address], [place] [id number] 18 Oct, 2012 [facility] [address] [id number] [address] [place] [address], [place] [id number] 17 Oct, 2012 [facility] [address] [id number] [address] [place] [address], [place] [address] 15 Oct, 2012 [facility] [address] [id number] [address] [place] [address], [place] [address] Sep, [facility] [address] [id number] [address] [place] [address], [place] [address] Sep, [facility] [address] [id number] [address] [place] [address], [place] [address] Sep, [facility] [address] [id number] [address] [place] [address], [place] [address] Sep, [facility] [address] [id number] [address] [place] [address], [place] [address] Aug, [facility] [address] [id number] [address] [place] [address], [place] [address] Aug, [facility] [address] [id number] [address] [place] [address], [place] [address] Aug, [facility] [address] [id number] [address] [place] [address], [place] [address] Aug, [facility] [address] [id number] [address] [place] [address], [place] [address] Aug, [facility] [address] [id number] [address] [place] [address], [place] [address] Aug, [facility] [address] [id number] [address] [place] [address], [place] [address] Jul, [facility] [address] [id number] [address] [place] [address], [place] [address] Jul, [facility] [address] [id number] [address] [place] [address], [place] [address] Jul, [facility] [address] [id number] [address] [place] [address], [place] [address] Jul, [facility] [address] [id number] [address] [place] [id number] Jul, [facility] [address] [id number] [address] [place] [address] Jul, [facility] [address] [id number] [address] [place] [address], [place] [address] Jun, [facility] [address] [id number] [address] [place] [address], [place] [address] Jun, [facility] [address] [id number] [address] [place] [address], [place] [address] Jun, [facility] [address] [id number] [address] [place] [address], [place] [address] Jun, [facility] [address] [id number] [address] [place] [address], [place] [address] Jun, [facility] [address] [id number] [address] [place] [address], [place] [address] Jun, [facility] [address] [id number] [address] [place] [address], [place] [address] May, [facility] [address] [id number] [address] [place] [address], [place] [address] May, [facility] [address] [id number] [address] [place] [address], [place] [address] May, [facility] [address] [id number] [address] [place] [address], [place] [address] May, [facility] [address] [id number] [address] [place] [address], [place] [address] May, [facility] [address] [id number] [address] [place] [address], [place] [address] May, [facility] [address] [id number] [address] [place] [address], [place] [address] May, [facility] [address] [id number] [address] [place] [address], [place] [address] May, [facility] [address] [id number] [address] [place] [address], [place] [address] May, [facility] [address] [id number] [address] [place] [address], [place] [address] May, [facility] [address] [id number] [address] [place] [address], [place] [address] Apr, [facility] [address] [id number] [address] [place] [address], [place] [address] Apr, [facility] [address] [id number] [address] [place] [address], [place] [address] Apr, [facility] [address] [id number] [address] [place] [address], [place] [address] 23 Apr, 2012 [facility] [address] [id number] [address] [place] [address], [place] [address] 16 Apr, 2012 [facility] [address] [id number] [address] [place] [address], [place] [address] 16 Apr, 2012 [facility] [address] [id number] [address] [place] [address], [place] [address] 15 Apr, 2012 [facility] [address] [id number] [address] [place] [address], [place] [address] 15 Apr, 2012 [facility] [address] [id number] [address] [place] [address], [place] [id number] 05 Apr, 2012 [facility] [address] [id number] [address] [place] [address], [place] [id number] 28 Mar, 2012 [facility] [address] [id number] [address] [place] [address], [place] [address] 26 Mar, 2012 [facility] [address] [id number] [address] [place] [address], [place] [address] 25 Mar, 2012 [facility] [address] [id number] [address] [place] [address], [place] [address] 19 Mar, 2012 [facility] [address] [id number] [address] [place] [address], [place] [address] 18 Mar, 2012 [facility] [address] [id number] [address] [place] [address], [place] [address] 05 Mar, 2012 [facility] [address] [id number] [address] [place] [address], [place] [address] Feb, [facility] [address] [id number] [address] [place] [address], [place] [address] Feb, [facility] [address] [id number] [address] [place] [address], [place] [address] Feb, [facility] [address] [id number] [address] [place] [address], [place] [address] Jan, [facility] [address] [id number] [facility] [address] Jan, [facility] [address] [id number] [address] [place] [address], [place] [address] Jan, [facility] [address] [id number] [address] [place] [address], [place] [address] Jan, [facility] [address] [id number] [address] [place] [address], [place] [address] Dec, [facility] [address] [id number] [address] [place] [address], [place] [address] November, [facility] [address] [id number] [address] [place] [address], [place] [address] November, [facility] [address] [id number] [address] [place] [address], [place] [address] November, [facility] [address] [id number] [address] [place] [address], [place] [address] November, [facility] [address] [id number] [address] [place] [address], [place] [address] November, [facility] [address] [id number] [address] [place] [address], [place] [address] November, [facility] [address] [id number] [address] [place] [address], [place] [address] Oct, [facility] [address] [id number] [address] [place] [address], [place] [address] Oct, [facility] [address] [id number] [address] [place] [address], [place] [address] Sep, [facility] [address] [id number] [address] [place] [address], [place] [address] Sep, [facility] [address] [id number] [address] [place] [address], [place] [address] Sep, [facility] [address] [id number] [address] [place] [address], [place] [id number] 29 Aug, 2011 [facility] [address] [id number] [address] [place] [address], [place] [address] Aug, [facility] [address] [id number] [address] [place] [address], [place] [address] 14 Aug, 2011 [facility] [address] [id number] [address] [place] [address], [place] [address] Aug, [facility] [address] [id number] [address] [place] [address], [place] [address] Aug, [facility] [address] [id number] [address] [place] [address], [place] [address] Aug, [facility] [address] [id number] [address] [place] [address], [place] [address] Jul, [facility] [address] [id number] [address] [place] [address], [place] [address] Jul, [facility] [address] [id number] [address] [place] [address], [place] [address] Jul, [facility] [address] [id number] [address] [place] [address], [place] [address] Jul, [facility] [address] [id number] [address] [place] [address], [place] [address] Jul, [facility] [address] [id number] [address] [place] [address], [place] [address] Jul, [facility] [address] [id number] [address] [place] [address], [place] [address] 17 Jul, 2011 [facility] [address] [id number] [address] [place] [address], [place] [address] Jul, [facility] [address] [id number] [address] [place] [address], [place] [address] Jul, [facility] [address] [id number] [address] [place] [address], [place] [address] Jul, [facility] [address] [id number] [address] [place] [address], [place] [address] Jun, [facility] [address] [id number] [address] [place] [address], [place] [address] Jun, [facility] [address] [id number] [address] [place] [address], [place] [address] Jun, [facility] [address] [id number] [address] [place] [address], [place] [address] Jun, [facility] [address] [id number] [address] [place] [address], [place] [address] May, [facility] [address] [id number] [address] [place] [address], [place] [address] May, [facility] [address] [id number] [address] [place] [address], [place] [address] May, [facility] [address] [id number] [address] [place] [address], [place] [address] May, [facility] [address] [id number] [address] [place] [address], [place] [address] Apr, [facility] [address] [id number] [address] [place] [address], [place] [address] Apr, [facility] [address] [id number] [address] [place] [address], [place] [address] November, [facility] [address] [id number] [address] [place] [address], [place] [address] Oct, [facility] [address] [id number] [address] [place] [address], [place] [address] Aug, [facility] [address] [id number] [address] [place] [address], [place] [address] Jun, [facility] [address] [id number] [address] [place] [address], [place] [address] Jun, [facility] [address] [id number] [address] [place] [address], [place] [address] 27 Jun, 2010 [facility] [address] [id number] [address] [place] [address], [place] [address] 03 Jun, 2010 [facility] [address] [id number] [address] [place] [address], [place] [address] 29 May, 2010 [facility] [address] [id number] [address] [place] [address], [place] [address] 27 Apr, 2010 [facility] [address] [id number] [address] [place] [address], [place] [address] 13 Oct, 2009 [facility] [address] [id number] [address] [place] [address], [place] [address] 13 Aug, 2009 [facility] [address] [id number] [address] [place] [address], [place] [address] 20 Jul, 2009 [facility] [address] [id number] [address] [place] [address], [place] [address] 22 Jun, 2009 [facility] [address] [id number] [address] [place] [id number] 16 Jun, 2009 [facility] [address] [id number] [address] [place] [address], [place] [address] 14 Jun, 2009 [facility] [address] [id number] [address] [place] [id number] 14 Jun, 2009 [facility] [address] [id number] [address] [place] [id number] 09 May, 2009 [facility] [address] [id number] [address] [place] [id number] 20 Apr, 2009 [facility] [address] [id number] [address] [place] [id number] 15 Mar, 2009 [facility] [address] [id number] [address] [place] [id number] 14 Mar, 2009 [facility] [address] [id number] [address] [place] [id number] 11 Dec, 2008 IMMUNIZATIONS No Known Immunizations [...]
--- OUTSIDE RECORDS SUMMARY | 2019-09-01 05:08 | XMS REPORT ---
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 [address] Jun, [facility] [address] [id number] [address] [place] [address], [place] [address] 16 Jun, 2014 [facility] [address] [id number] [address] [place] [address], [place] [address] 16 Jun, 2014 [facility] [address] [id number] [address] [place] [address], [place] [address] Jun, [facility] [address] [id number] [address] [place] [address], [place] [address] 05 Jun, 2014 [facility] [address] [id number] [address] [place] [address], [place] [address] 05 Jun, 2014 [facility] [address] [id number] [address] [place] [address], [place] [address] Jun, [facility] [address] [id number] [address] [place] [address], [place] [address] Jun, [facility] [address] [id number] [address] [place] [address], [place] [address] 02 Jun, 2014 [facility] [address] [id number] [address] [place] [address], [place] [address] 02 Jun, 2014 [facility] [address] [id number] [address] [place] [address], [place] [address] Jun, [facility] [address] [id number] [address] [place] [address], [place] [address] Jun, [facility] [address] [id number] [address] [place] [address], [place] [address] Jun, [facility] [address] [id number] [address] [place] [address], [place] [address] Jun, [facility] [address] [id number] [address] [place] [address], [place] [address] May, [facility] [address] [id number] [address] [place] [address], [place] [address] May, [facility] [address] [id number] [address] [place] [address], [place] [address] May, [facility] [address] [id number] [address] [place] [address], [place] [address] May, [facility] [address] [id number] [address] [place] [address], [place] [address] Apr, [facility] [address] [id number] [address] [place] [address], [place] [address] Apr, [facility] [address] [id number] [address] [place] [address], [place] [address] Apr, [facility] [address] [id number] [address] [place] [address], [place] [address] Apr, [facility] [address] [id number] [address] [place] [address], [place] [address] Apr, [facility] [address] [id number] [address] [place] [address], [place] [address] Apr, [facility] [address] [id number] [address] [place] [address], [place] [address] Apr, [facility] [address] [id number] [address] [place] [address], [place] [address] Apr, [facility] [address] [id number] [address] [place] [address], [place] [address] Apr, [facility] [address] [id number] [address] [place] [address], [place] [address] Apr, [facility] [address] [id number] [address] [place] [address], [place] [address] Mar, 2013 [facility] [address] [id number] [address] [place] [address], [place] [address] Mar, 2013 [facility] [address] [id number] [address] [place] [address], [place] [address] Mar, 2013 [facility] [address] [id number] [address] [place] [address], [place] [address] Mar, 2013 [facility] [address] [id number] [address] [place] [address], [place] [address] Mar, 2013 [facility] [address] [id number] [address] [place] [address], [place] [address] Mar, 2013 [facility] [address] [id number] [address] [place] [address], [place] [address] Mar, 2013 [facility] [address] [id number] [address] [place] [address], [place] [address] Mar, 2013 [facility] [address] [id number] [address] [place] [address], [place] [address] Mar, 2013 [facility] [address] [id number] [address] [place] [address], [place] [address] Mar, 2013 [facility] [address] [id number] [address] [place] [address], [place] [address] Mar, 2013 [facility] [address] [id number] [address] [place] [address], [place] [address] Mar, 2013 [facility] [address] [id number] [address] [place] [address], [place] [address] Feb, [facility] [address] [id number] [address] [place] [address], [place] [address] Feb, [facility] [address] [id number] [facility] [place] [address] Jan, [facility] [address] [id number] [address] [place] [address], [place] [address] Jan, [facility] [address] [id number] [address] [place] [address], [place] [address] Jan, [facility] [address] [id number] [address] [place] [address], [place] [address] Jan, [facility] [address] [id number] [address] [place] [address], [place] [address] Dec, [facility] [address] [id number] [address] [place] [address], [place] [address] Dec, [facility] [address] [id number] [address] [place] [address], [place] [address] Dec, [facility] [address] [id number] [address] [place] [address], [place] [address] Dec, [facility] [address] [id number] [address] [place] [address], [place] [address] Dec, [facility] [address] [id number] [address] [place] [address], [place] [address] Dec, [facility] [address] [id number] [address] [place] [address], [place] [address] November, [facility] [address] [id number] [address] [place] [address], [place] [address] November, [facility] [address] [id number] [address] [place] [address], [place] [address] November, [facility] [address] [id number] [address] [place] [address], [place] [address] November, [facility] [address] [id number] [address] [place] [address], [place] [address] November, [facility] [address] [id number] [address] [place] [address], [place] [address] November, [facility] [address] [place] [id number] November, [facility] [address] [id number] [address] [place] [address], [place] [address] November, [facility] [address] [id number] [address] [place] [address], [place] [address] November, [facility] [address] [id number] [address] [place] [address], [place] [address] November, [facility] [address] [id number] [address] [place] [address], [place] [address] November, [facility] [address] [id number] [address] [place] [address], [place] [address] November, [facility] [address] [id number] [address] [place] [address], [place] [address] Oct, [facility] [address] [id number] [address] [place] [address], [place] [address] Oct, [facility] [address] [id number] [address] [place] [address], [place] [address] Oct, [facility] [address] [id number] [address] [place] [address], [place] [address] Oct, [facility] [address] [id number] [address] [place] [address], [place] [address] Oct, [facility] [address] [id number] [address] [place] [address], [place] [address] Oct, [facility] [address] [id number] [address] [place] [address], [place] [address] Oct, [facility] [address] [id number] [address] [place] [address], [place] [address] Oct, [facility] [address] [id number] [address] [place] [address], [place] [address] Oct, [facility] [address] [id number] [facility] [place] [address] Oct, [facility] [address] [id number] [facility] [place] [address] Oct, [facility] [address] [id number] [facility] [place] [address] Oct, [facility] [address] [id number] [address] [place] [address], [place] [address] Oct, [facility] [address] [id number] [address] [place] [address], [place] [address] Oct, [facility] [address] [id number] [address] [place] [address], [place] [address] Oct, [facility] [address] [id number] [address] [place] [address], [place] [address] Sep, [facility] [address] [id number] [address] [place] [address], [place] [address] Sep, [facility] [address] [id number] [address] [place] [address], [place] [address] Sep, [facility] [address] [id number] [address] [place] [address], [place] [address] Sep, [facility] [address] [id number] [address] [place] [address], [place] [address] Aug, [facility] [address] [id number] [address] [place] [address], [place] [address] Aug, [facility] [address] [id number] [address] [place] [address], [place] [address] Aug, [facility] [address] [id number] [address] [place] [address], [place] [address] Aug, [facility] [address] [id number] [address] [place] [address], [place] [address] Jul, [facility] [address] [id number] [address] [place] [address], [place] [address] Jul, [facility] [address] [id number] [address] [place] [address], [place] [address] Jul, [facility] [address] [id number] [address] [place] [address], [place] [address] Jul, [facility] [address] [id number] [address] [place] [address], [place] [address] Jul, [facility] [address] [id number] [address] [place] [address], [place] [address] Jul, [facility] [address] [id number] [address] [place] [address], [place] [address] Jul, [facility] [address] [id number] [address] [place] [address], [place] [address] Jul, [facility] [address] [id number] [address] [place] [address], [place] [address] Jul, [facility] [address] [id number] [address] [place] [address], [place] [address] Jul, [facility] [address] [id number] [address] [place] [address], [place] [address] Jul, [facility] [address] [id number] [address] [place] [address], [place] [address] Jul, [facility] [address] [id number] [address] [place] [address], [place] [address] Jul, [facility] [address] [id number] [address] [place] [address], [place] [address] Jul, [facility] [address] [id number] [address] [place] [address], [place] [address] Jun, [facility] [address] [id number] [address] [place] [address], [place] [address] Jun, [facility] [address] [id number] [address] [place] [address], [place] [address] Jun, [facility] [address] [id number] [address] [place] [address], [place] [address] Jun, [facility] [address] [id number] [address] [place] [address], [place] [address] May, [facility] [address] [id number] [address] [place] [address], [place] [address] May, [facility] [address] [id number] [address] [place] [address], [place] [address] May, [facility] [address] [id number] [address] [place] [address], [place] [address] May, [facility] [address] [id number] [address] [place] [address], [place] [address] May, [facility] [address] [id number] [address] [place] [address], [place] [address] May, [facility] [address] [id number] [address] [place] [address], [place] [address] May, [facility] [address] [id number] [address] [place] [address], [place] [address] May, [facility] [address] [id number] [address] [place] [address], [place] [address] Apr, [facility] [address] [id number] [address] [place] [address], [place] [address] Apr, [facility] [address] [id number] [address] [place] [address], [place] [address] Apr, [facility] [address] [id number] [address] [place] [address], [place] [address] Apr, [facility] [address] [id number] [address] [place] [address], [place] [address] Apr, [facility] [address] [id number] [address] [place] [place] [address] [address] Apr, [facility] [address] [id number] [address] [place] [address], [place] [address] Mar, [facility] [address] [id number] [address] [place] [address], [place] [address] 26 Mar, 2012 [facility] [address] [id number] [address] [place] [address], [place] [address] 20 Mar, 2013 [facility] [address] [id number] [address] [place] [address], [place] [address] 17 Mar, 2013 [facility] [address] [id number] [address] [place] [address], [place] [address] 16 Mar, 2013 [facility] [address] [id number] [address] [place] [address], [place] [address] 05 Mar, 2013 [facility] [address] [id number] [address] [place] [address], [place] [address] 27 Feb, 2013 [facility] [address] [id number] [address] [place] [address], [place] [address] Feb, [facility] [address] [id number] [address] [place] [address], [place] [address] Feb, [facility] [address] [id number] [address] [place] [address], [place] [address] Feb, [facility] [address] [id number] [address] [place] [address], [place] [address] Jan, [facility] [address] [id number] [address] [place] [address], [place] [address] Jan, [facility] [address] [id number] [address] [place] [address], [place] [address] Jan, [facility] [address] [id number] [address] [place] [address], [place] [address] Jan, [facility] [address] [id number] [address] [place] [address], [place] [address] Jan, [facility] [address] [id number] [address] [place] [address], [place] [address] Dec, [facility] [address] [id number] [address] [place] [address], [place] [address] Dec, [facility] [address] [id number] [address] [place] [address], [place] [address] Dec, [facility] [address] [id number] [address] [place] [address], [place] [address] November, [facility] [address] [id number] [address] [place] [address], [place] [address] November, [facility] [address] [id number] [address] [place] [address], [place] [address] November, [facility] [address] [id number] [address] [place] [address], [place] [address] Oct, [facility] [address] [id number] [address] [place] [address], [place] [address] Oct, [facility] [address] [id number] [address] [place] [address], [place] [address] Oct, [facility] [address] [id number] [address] [place] [address], [place] [address] Oct, [facility] [address] [id number] [address] [place] [address], [place] [address] 18 Oct, 2012 [facility] [address] [id number] [address] [place] [address], [place] [address] 17 Oct, 2012 [facility] [address] [id number] [address] [place] [address], [place] [address] 15 Oct, 2012 [facility] [address] [id number] [address] [place] [address], [place] [address] Sep, [facility] [address] [id number] [address] [place] [address], [place] [address] Sep, [facility] [address] [id number] [address] [place] [address], [place] [address] Sep, [facility] [address] [id number] [address] [place] [address], [place] [address] Sep, [facility] [address] [id number] [address] [place] [address], [place] [address] Aug, [facility] [address] [id number] [address] [place] [address], [place] [address] Aug, [facility] [address] [id number] [address] [place] [address], [place] [address] Aug, [facility] [address] [id number] [address] [place] [address], [place] [address] Aug, [facility] [address] [id number] [address] [place] [address], [place] [address] Aug, [facility] [address] [id number] [address] [place] [address], [place] [address] Aug, [facility] [address] [id number] [address] [place] [address], [place] [address] Jul, [facility] [address] [id number] [address] [place] [address], [place] [address] Jul, [facility] [address] [id number] [address] [place] [address], [place] [address] Jul, [facility] [address] [id number] [address] [place] [address], [place] [address] Jul, [facility] [address] [id number] [address] [place] [address] Jul, [facility] [address] [id number] [address] [place] [address] Jul, [facility] [address] [id number] [address] [place] [address], [place] [address] Jun, [facility] [address] [id number] [address] [place] [address], [place] [address] Jun, [facility] [address] [id number] [address] [place] [address], [place] [address] Jun, [facility] [address] [id number] [address] [place] [address], [place] [address] Jun, [facility] [address] [id number] [address] [place] [address], [place] [address] Jun, [facility] [address] [id number] [address] [place] [address], [place] [address] Jun, [facility] [address] [id number] [address] [place] [address], [place] [address] May, [facility] [address] [id number] [address] [place] [address], [place] [address] May, [facility] [address] [id number] [address] [place] [address], [place] [address] May, [facility] [address] [id number] [address] [place] [address], [place] [address] May, [facility] [address] [id number] [address] [place] [address], [place] [address] May, [facility] [address] [id number] [address] [place] [address], [place] [address] May, [facility] [address] [id number] [address] [place] [address], [place] [address] May, [facility] [address] [id number] [address] [place] [address], [place] [address] May, [facility] [address] [id number] [address] [place] [address], [place] [address] May, [facility] [address] [id number] [address] [place] [address], [place] [address] May, [facility] [address] [id number] [address] [place] [address], [place] [address] Apr, [facility] [address] [id number] [address] [place] [address], [place] [address] Apr, [facility] [address] [id number] [address] [place] [address], [place] [address] Apr, [facility] [address] [id number] [address] [place] [address], [place] [address] 23 Apr, 2012 [facility] [address] [id number] [address] [place] [address], [place] [address] 16 Apr, 2012 [facility] [address] [id number] [address] [place] [address], [place] [address] 16 Apr, 2012 [facility] [address] [id number] [address] [place] [address], [place] [address] 15 Apr, 2012 [facility] [address] [id number] [address] [place] [address], [place] [address] 15 Apr, 2012 [facility] [address] [id number] [address] [place] [address], [place] [address] 05 Apr, 2012 [facility] [address] [id number] [address] [place] [address], [place] [address] 28 Mar, 2012 [facility] [address] [id number] [address] [place] [address], [place] [address] 26 Mar, 2012 [facility] [address] [id number] [address] [place] [address], [place] [address] 25 Mar, 2012 [facility] [address] [id number] [address] [place] [address], [place] [address] 19 Mar, 2012 [facility] [address] [id number] [address] [place] [address], [place] [address] 18 Mar, 2012 [facility] [address] [id number] [address] [place] [address], [place] [address] 05 Mar, 2012 [facility] [address] [id number] [address] [place] [address], [place] [address] Feb, [facility] [address] [id number] [address] [place] [address], [place] [address] Feb, [facility] [address] [id number] [address] [place] [address], [place] [address] Feb, [facility] [address] [id number] [address] [place] [address], [place] [address] Jan, [facility] [address] [id number] [facility] [place] [address] Jan, [facility] [address] [id number] [address] [place] [address], [place] [address] Jan, [facility] [address] [id number] [address] [place] [address], [place] [address] Jan, [facility] [address] [id number] [address] [place] [address], [place] [address] Dec, [facility] [address] [id number] [address] [place] [address], [place] [address] November, [facility] [address] [id number] [address] [place] [address], [place] [address] November, [facility] [address] [id number] [address] [place] [address], [place] [address] November, [facility] [address] [id number] [address] [place] [address], [place] [address] November, [facility] [address] [id number] [address] [place] [address], [place] [address] November, [facility] [address] [id number] [address] [place] [address], [place] [address] November, [facility] [address] [id number] [address] [place] [address], [place] [address] Oct, [facility] [address] [id number] [address] [place] [address], [place] [address] Oct, [facility] [address] [id number] [address] [place] [address], [place] [address] Sep, [facility] [address] [id number] [address] [place] [address], [place] [address] Sep, [facility] [address] [id number] [address] [place] [address], [place] [address] Sep, [facility] [address] [id number] [address] [place] [address], [place] [address] 29 Aug, 2011 [facility] [address] [id number] [address] [place] [address], [place] [address] Aug, [facility] [address] [id number] [address] [place] [address], [place] [address] 14 Aug, 2011 [facility] [address] [id number] [address] [place] [address], [place] [address] Aug, [facility] [address] [id number] [address] [place] [address], [place] [address] Aug, [facility] [address] [id number] [address] [place] [address], [place] [address] Aug, [facility] [address] [id number] [address] [place] [address], [place] [address] Jul, [facility] [address] [id number] [address] [place] [address], [place] [address] Jul, [facility] [address] [id number] [address] [place] [address], [place] [address] Jul, [facility] [address] [id number] [address] [place] [address], [place] [address] Jul, [facility] [address] [id number] [address] [place] [address], [place] [address] Jul, [facility] [address] [id number] [address] [place] [address], [place] [address] Jul, [facility] [address] [id number] [address] [place] [address], [place] [address] 17 Jul, 2011 [facility] [address] [id number] [address] [place] [address], [place] [address] Jul, [facility] [address] [id number] [address] [place] [address], [place] [address] Jul, [facility] [address] [id number] [address] [place] [address], [place] [address] Jul, [facility] [address] [id number] [address] [place] [address], [place] [address] Jun, [facility] [address] [id number] [address] [place] [address], [place] [address] Jun, [facility] [address] [id number] [address] [place] [address], [place] [address] Jun, [facility] [address] [id number] [address] [place] [address], [place] [address] Jun, [facility] [address] [id number] [address] [place] [address], [place] [address] May, [facility] [address] [id number] [address] [place] [address], [place] [address] May, [facility] [address] [id number] [address] [place] [address], [place] [address] May, [facility] [address] [id number] [address] [place] [address], [place] [address] May, [facility] [address] [id number] [address] [place] [address], [place] [address] Apr, [facility] [address] [id number] [address] [place] [address], [place] [address] Apr, [facility] [address] [id number] [address] [place] [address], [place] [address] November, [facility] [address] [id number] [address] [place] [address], [place] [address] Oct, [facility] [address] [id number] [address] [place] [address], [place] [address] Aug, [facility] [address] [id number] [address] [place] [address], [place] [address] Jun, [facility] [address] [id number] [address] [place] [address], [place] [address] Jun, [facility] [address] [id number] [address] [place] [address], [place] [address] 27 Jun, 2010 [facility] [address] [id number] [address] [place] [address], [place] [address] 03 Jun, 2010 [facility] [address] [id number] [address] [place] [address], [place] [address] 29 May, 2010 [facility] [address] [id number] [address] [place] [address], [place] [address] 27 Apr, 2010 [facility] [address] [id number] [address] [place] [address], [place] [address] 13 Oct, 2009 [facility] [address] [id number] [address] [place] [address], [place] [address] 13 Aug, 2009 [facility] [address] [id number] [address] [place] [address], [place] [address] 20 Jul, 2009 [facility] [address] [id number] [address] [place] [address], [place] [address] 22 Jun, 2009 [facility] [address] [id number] [address] [place] [address] 16 Jun, 2009 [facility] [address] [id number] [address] [place] [address], [place] [address] 14 Jun, 2009 [facility] [address] [id number] [address] [place] [address] 14 Jun, 2009 [facility] [address] [id number] [address] [place] [address] 09 May, 2009 [facility] [address] [id number] [address] [place] [address] 20 Apr, 2009 [facility] [address] [id number] [address] [place] [address] 15 Mar, 2009 [facility] [address] [id number] [address] [place] [address] 14 Mar, 2009 [facility] [address] [id number] [address] [place] [address] 11 Dec, 2008 IMMUNIZATIONS No Known Immunizations [...]
--- OUTSIDE RECORDS SUMMARY | 2019-09-01 05:09 | XMS REPORT ---
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 [address] Jun, [facility] [address] [id number] [address] [place] [address], [place] [address] 16 Jun, 2014 [facility] [address] [id number] [address] [place] [address], [place] [address] 16 Jun, 2014 [facility] [address] [id number] [address] [place] [address], [place] [address] Jun, [facility] [address] [id number] [address] [place] [address], [place] [address] 05 Jun, 2014 [facility] [address] [id number] [address] [place] [address], [place] [address] 05 Jun, 2014 [facility] [address] [id number] [address] [place] [address], [place] [address] Jun, [facility] [address] [id number] [address] [place] [address], [place] [address] Jun, [facility] [address] [id number] [address] [place] [address], [place] [address] 02 Jun, 2014 [facility] [address] [id number] [address] [place] [address], [place] [address] 02 Jun, 2014 [facility] [address] [id number] [address] [place] [address], [place] [address] Jun, [facility] [address] [id number] [address] [place] [address], [place] [address] Jun, [facility] [address] [id number] [address] [place] [address], [place] [address] Jun, [facility] [address] [id number] [address] [place] [address], [place] [address] Jun, [facility] [address] [id number] [address] [place] [address], [place] [address] May, [facility] [address] [id number] [address] [place] [address], [place] [address] May, [facility] [address] [id number] [address] [place] [address], [place] [address] May, [facility] [address] [id number] [address] [place] [address], [place] [address] May, [facility] [address] [id number] [address] [place] [address], [place] [address] Apr, [facility] [address] [id number] [address] [place] [address], [place] [address] Apr, [facility] [address] [id number] [address] [place] [address], [place] [address] Apr, [facility] [address] [id number] [address] [place] [address], [place] [address] Apr, [facility] [address] [id number] [address] [place] [address], [place] [address] Apr, [facility] [address] [id number] [address] [place] [address], [place] [address] Apr, [facility] [address] [id number] [address] [place] [address], [place] [address] Apr, [facility] [address] [id number] [address] [place] [address], [place] [address] Apr, [facility] [address] [id number] [address] [place] [address], [place] [address] Apr, [facility] [address] [id number] [address] [place] [address], [place] [address] Apr, [facility] [address] [id number] [address] [place] [address], [place] [address] Mar, 2013 [facility] [address] [id number] [address] [place] [address], [place] [address] Mar, 2013 [facility] [address] [id number] [address] [place] [address], [place] [address] Mar, 2013 [facility] [address] [id number] [address] [place] [address], [place] [address] Mar, 2013 [facility] [address] [id number] [address] [place] [address], [place] [address] Mar, 2013 [facility] [address] [id number] [address] [place] [address], [place] [address] Mar, 2013 [facility] [address] [id number] [address] [place] [address], [place] [address] Mar, 2013 [facility] [address] [id number] [address] [place] [address], [place] [address] Mar, 2013 [facility] [address] [id number] [address] [place] [address], [place] [address] Mar, 2013 [facility] [address] [id number] [address] [place] [address], [place] [address] Mar, 2013 [facility] [address] [id number] [address] [place] [address], [place] [address] Mar, 2013 [facility] [address] [id number] [address] [place] [address], [place] [address] Mar, 2013 [facility] [address] [id number] [address] [place] [address], [place] [address] Feb, [facility] [address] [id number] [address] [place] [address], [place] [address] Feb, [facility] [address] [id number] [facility] [address] Jan, [facility] [address] [id number] [address] [place] [address], [place] [address] Jan, [facility] [address] [id number] [address] [place] [address], [place] [address] Jan, [facility] [address] [id number] [address] [place] [address], [place] [address] Jan, [facility] [address] [id number] [address] [place] [address], [place] [address] Dec, [facility] [address] [id number] [address] [place] [address], [place] [address] Dec, [facility] [address] [id number] [address] [place] [address], [place] [address] Dec, [facility] [address] [id number] [address] [place] [address], [place] [address] Dec, [facility] [address] [id number] [address] [place] [address], [place] [address] Dec, [facility] [address] [id number] [address] [place] [address], [place] [address] Dec, [facility] [address] [id number] [address] [place] [address], [place] [address] November, [facility] [address] [id number] [address] [place] [address], [place] [address] November, [facility] [address] [id number] [address] [place] [address], [place] [address] November, [facility] [address] [id number] [address] [place] [address], [place] [address] November, [facility] [address] [id number] [address] [place] [address], [place] [address] November, [facility] [address] [id number] [address] [place] [address], [place] [address] November, [facility] [address] [place] [id number] November, [facility] [address] [id number] [address] [place] [address], [place] [address] November, [facility] [address] [id number] [address] [place] [address], [place] [address] November, [facility] [address] [id number] [address] [place] [address], [place] [address] November, [facility] [address] [id number] [address] [place] [address], [place] [address] November, [facility] [address] [id number] [address] [place] [address], [place] [address] November, [facility] [address] [id number] [address] [place] [address], [place] [address] Oct, [facility] [address] [id number] [address] [place] [address], [place] [address] Oct, [facility] [address] [id number] [address] [place] [address], [place] [address] Oct, [facility] [address] [id number] [address] [place] [address], [place] [address] Oct, [facility] [address] [id number] [address] [place] [address], [place] [address] Oct, [facility] [address] [id number] [address] [place] [address], [place] [address] Oct, [facility] [address] [id number] [address] [place] [address], [place] [address] Oct, [facility] [address] [id number] [address] [place] [address], [place] [address] Oct, [facility] [address] [id number] [address] [place] [address], [place] [address] Oct, [facility] [address] [id number] [facility] [address] Oct, [facility] [address] [id number] [facility] [address] Oct, [facility] [address] [id number] [facility] [address] Oct, [facility] [address] [id number] [address] [place] [address], [place] [address] Oct, [facility] [address] [id number] [address] [place] [address], [place] [address] Oct, [facility] [address] [id number] [address] [place] [address], [place] [address] Oct, [facility] [address] [id number] [address] [place] [address], [place] [address] Sep, [facility] [address] [id number] [address] [place] [address], [place] [address] Sep, [facility] [address] [id number] [address] [place] [address], [place] [address] Sep, [facility] [address] [id number] [address] [place] [address], [place] [address] Sep, [facility] [address] [id number] [address] [place] [address], [place] [address] Aug, [facility] [address] [id number] [address] [place] [address], [place] [address] Aug, [facility] [address] [id number] [address] [place] [address], [place] [address] Aug, [facility] [address] [id number] [address] [place] [address], [place] [address] Aug, [facility] [address] [id number] [address] [place] [address], [place] [address] Jul, [facility] [address] [id number] [address] [place] [address], [place] [address] Jul, [facility] [address] [id number] [address] [place] [address], [place] [address] Jul, [facility] [address] [id number] [address] [place] [address], [place] [address] Jul, [facility] [address] [id number] [address] [place] [address], [place] [address] Jul, [facility] [address] [id number] [address] [place] [address], [place] [address] Jul, [facility] [address] [id number] [address] [place] [address], [place] [address] Jul, [facility] [address] [id number] [address] [place] [address], [place] [address] Jul, [facility] [address] [id number] [address] [place] [address], [place] [address] Jul, [facility] [address] [id number] [address] [place] [address], [place] [address] Jul, [facility] [address] [id number] [address] [place] [address], [place] [address] Jul, [facility] [address] [id number] [address] [place] [address], [place] [address] Jul, [facility] [address] [id number] [address] [place] [address], [place] [address] Jul, [facility] [address] [id number] [address] [place] [address], [place] [address] Jul, [facility] [address] [id number] [address] [place] [address], [place] [address] Jun, [facility] [address] [id number] [address] [place] [address], [place] [address] Jun, [facility] [address] [id number] [address] [place] [address], [place] [address] Jun, [facility] [address] [id number] [address] [place] [address], [place] [address] Jun, [facility] [address] [id number] [address] [place] [address], [place] [address] May, [facility] [address] [id number] [address] [place] [address], [place] [address] May, [facility] [address] [id number] [address] [place] [address], [place] [address] May, [facility] [address] [id number] [address] [place] [address], [place] [address] May, [facility] [address] [id number] [address] [place] [address], [place] [address] May, [facility] [address] [id number] [address] [place] [address], [place] [address] May, [facility] [address] [id number] [address] [place] [address], [place] [address] May, [facility] [address] [id number] [address] [place] [address], [place] [address] May, [facility] [address] [id number] [address] [place] [address], [place] [address] Apr, [facility] [address] [id number] [address] [place] [address], [place] [address] Apr, [facility] [address] [id number] [address] [place] [address], [place] [address] Apr, [facility] [address] [id number] [address] [place] [address], [place] [address] Apr, [facility] [address] [id number] [address] [place] [address], [place] [address] Apr, [facility] [address] [id number] [address] [place] [address], [place] [address] Apr, [facility] [address] [id number] [address] [place] [address], [place] [address] Mar, [facility] [address] [id number] [address] [place] [address], [place] [address] 26 Mar, 2012 [facility] [address] [id number] [address] [place] [address], [place] [address] 20 Mar, 2013 [facility] [address] [id number] [address] [place] [address], [place] [address] 17 Mar, 2013 [facility] [address] [id number] [address] [place] [address], [place] [address] 16 Mar, 2013 [facility] [address] [id number] [address] [place] [address], [place] [address] 05 Mar, 2013 [facility] [address] [id number] [address] [place] [address], [place] [address] 27 Feb, 2013 [facility] [address] [id number] [address] [place] [address], [place] [address] Feb, [facility] [address] [id number] [address] [place] [address], [place] [address] Feb, [facility] [address] [id number] [address] [place] [address], [place] [address] Feb, [facility] [address] [id number] [address] [place] [address], [place] [address] Jan, [facility] [address] [id number] [address] [place] [address], [place] [address] Jan, [facility] [address] [id number] [address] [place] [address], [place] [address] Jan, [facility] [address] [id number] [address] [place] [address], [place] [address] Jan, [facility] [address] [id number] [address] [place] [address], [place] [address] Jan, [facility] [address] [id number] [address] [place] [address], [place] [address] Dec, [facility] [address] [id number] [address] [place] [address], [place] [address] Dec, [facility] [address] [id number] [address] [place] [address], [place] [address] Dec, [facility] [address] [id number] [address] [place] [address], [place] [address] November, [facility] [address] [id number] [address] [place] [address], [place] [address] November, [facility] [address] [id number] [address] [place] [address], [place] [address] November, [facility] [address] [id number] [address] [place] [address], [place] [address] Oct, [facility] [address] [id number] [address] [place] [address], [place] [address] Oct, [facility] [address] [id number] [address] [place] [address], [place] [address] Oct, [facility] [address] [id number] [address] [place] [address], [place] [address] Oct, [facility] [address] [id number] [address] [place] [address], [place] [address] 18 Oct, 2012 [facility] [address] [id number] [address] [place] [address], [place] [address] 17 Oct, 2012 [facility] [address] [id number] [address] [place] [address], [place] [address] 15 Oct, 2012 [facility] [address] [id number] [address] [place] [address], [place] [address] Sep, [facility] [address] [id number] [address] [place] [address], [place] [address] Sep, [facility] [address] [id number] [address] [place] [address], [place] [address] Sep, [facility] [address] [id number] [address] [place] [address], [place] [address] Sep, [facility] [address] [id number] [address] [place] [address], [place] [address] Aug, [facility] [address] [id number] [address] [place] [address], [place] [address] Aug, [facility] [address] [id number] [address] [place] [address], [place] [address] Aug, [facility] [address] [id number] [address] [place] [address], [place] [address] Aug, [facility] [address] [id number] [address] [place] [address], [place] [address] Aug, [facility] [address] [id number] [address] [place] [address], [place] [address] Aug, [facility] [address] [id number] [address] [place] [address], [place] [address] Jul, [facility] [address] [id number] [address] [place] [address], [place] [address] Jul, [facility] [address] [id number] [address] [place] [address], [place] [address] Jul, [facility] [address] [id number] [address] [place] [address], [place] [address] Jul, [facility] [address] [id number] [address] [place] [address] Jul, [facility] [address] [id number] [address] [place] [address] Jul, [facility] [address] [id number] [address] [place] [address], [place] [address] Jun, [facility] [address] [id number] [address] [place] [address], [place] [address] Jun, [facility] [address] [id number] [address] [place] [address], [place] [address] Jun, [facility] [address] [id number] [address] [place] [address], [place] [address] Jun, [facility] [address] [id number] [address] [place] [address], [place] [address] Jun, [facility] [address] [id number] [address] [place] [address], [place] [address] Jun, [facility] [address] [id number] [address] [place] [address], [place] [address] May, [facility] [address] [id number] [address] [place] [address], [place] [address] May, [facility] [address] [id number] [address] [place] [address], [place] [address] May, [facility] [address] [id number] [address] [place] [address], [place] [address] May, [facility] [address] [id number] [address] [place] [address], [place] [address] May, [facility] [address] [id number] [address] [place] [address], [place] [address] May, [facility] [address] [id number] [address] [place] [address], [place] [address] May, [facility] [address] [id number] [address] [place] [address], [place] [address] May, [facility] [address] [id number] [address] [place] [address], [place] [address] May, [facility] [address] [id number] [address] [place] [address], [place] [address] May, [facility] [address] [id number] [address] [place] [address], [place] [address] Apr, [facility] [address] [id number] [address] [place] [address], [place] [address] Apr, [facility] [address] [id number] [address] [place] [address], [place] [address] Apr, [facility] [address] [id number] [address] [place] [address], [place] [address] 23 Apr, 2012 [facility] [address] [id number] [address] [place] [address], [place] [address] 16 Apr, 2012 [facility] [address] [id number] [address] [place] [address], [place] [address] 16 Apr, 2012 [facility] [address] [id number] [address] [place] [address], [place] [address] 15 Apr, 2012 [facility] [address] [id number] [address] [place] [address], [place] [address] 15 Apr, 2012 [facility] [address] [id number] [address] [place] [address], [place] [address] 05 Apr, 2012 [facility] [address] [id number] [address] [place] [address], [place] [address] 28 Mar, 2012 [facility] [address] [id number] [address] [place] [address], [place] [address] 26 Mar, 2012 [facility] [address] [id number] [address] [place] [address], [place] [address] 25 Mar, 2012 [facility] [address] [id number] [address] [place] [address], [place] [address] 19 Mar, 2012 [facility] [address] [id number] [address] [place] [address], [place] [address] 18 Mar, 2012 [facility] [address] [id number] [address] [place] [address], [place] [address] 05 Mar, 2012 [facility] [address] [id number] [address] [place] [address], [place] [address] Feb, [facility] [address] [id number] [address] [place] [address], [place] [address] Feb, [facility] [address] [id number] [address] [place] [address], [place] [address] Feb, [facility] [address] [id number] [address] [place] [address], [place] [address] Jan, [facility] [address] [id number] [facility] [address] Jan, [facility] [address] [id number] [address] [place] [address], [place] [address] Jan, [facility] [address] [id number] [address] [place] [address], [place] [address] Jan, [facility] [address] [id number] [address] [place] [address], [place] [address] Dec, [facility] [address] [id number] [address] [place] [address], [place] [address] November, [facility] [address] [id number] [address] [place] [address], [place] [address] November, [facility] [address] [id number] [address] [place] [address], [place] [address] November, [facility] [address] [id number] [address] [place] [address], [place] [address] November, [facility] [address] [id number] [address] [place] [address], [place] [address] November, [facility] [address] [id number] [address] [place] [address], [place] [address] November, [facility] [address] [id number] [address] [place] [address], [place] [address] Oct, [facility] [address] [id number] [address] [place] [address], [place] [address] Oct, [facility] [address] [id number] [address] [place] [address], [place] [address] Sep, [facility] [address] [id number] [address] [place] [address], [place] [address] Sep, [facility] [address] [id number] [address] [place] [address], [place] [address] Sep, [facility] [address] [id number] [address] [place] [address], [place] [address] 29 Aug, 2011 [facility] [address] [id number] [address] [place] [address], [place] [address] Aug, [facility] [address] [id number] [address] [place] [address], [place] [address] 14 Aug, 2011 [facility] [address] [id number] [address] [place] [address], [place] [address] Aug, [facility] [address] [id number] [address] [place] [address], [place] [address] Aug, [facility] [address] [id number] [address] [place] [address], [place] [address] Aug, [facility] [address] [id number] [address] [place] [address], [place] [address] Jul, [facility] [address] [id number] [address] [place] [address], [place] [address] Jul, [facility] [address] [id number] [address] [place] [address], [place] [address] Jul, [facility] [address] [id number] [address] [place] [address], [place] [address] Jul, [facility] [address] [id number] [address] [place] [address], [place] [address] Jul, [facility] [address] [id number] [address] [place] [address], [place] [address] Jul, [facility] [address] [id number] [address] [place] [address], [place] [address] 17 Jul, 2011 [facility] [address] [id number] [address] [place] [address], [place] [address] Jul, [facility] [address] [id number] [address] [place] [address], [place] [address] Jul, [facility] [address] [id number] [address] [place] [address], [place] [address] Jul, [facility] [address] [id number] [address] [place] [address], [place] [address] Jun, [facility] [address] [id number] [address] [place] [address], [place] [address] Jun, [facility] [address] [id number] [address] [place] [address], [place] [address] Jun, [facility] [address] [id number] [address] [place] [address], [place] [address] Jun, [facility] [address] [id number] [address] [place] [address], [place] [address] May, [facility] [address] [id number] [address] [place] [address], [place] [address] May, [facility] [address] [id number] [address] [place] [address], [place] [address] May, [facility] [address] [id number] [address] [place] [address], [place] [address] May, [facility] [address] [id number] [address] [place] [address], [place] [address] Apr, [facility] [address] [id number] [address] [place] [address], [place] [address] Apr, [facility] [address] [id number] [address] [place] [address], [place] [address] November, [facility] [address] [id number] [address] [place] [address], [place] [address] Oct, [facility] [address] [id number] [address] [place] [address], [place] [address] Aug, [facility] [address] [id number] [address] [place] [address], [place] [address] Jun, [facility] [address] [id number] [address] [place] [address], [place] [address] Jun, [facility] [address] [id number] [address] [place] [address], [place] [address] 27 Jun, 2010 [facility] [address] [id number] [address] [place] [address], [place] [address] 03 Jun, 2010 [facility] [address] [id number] [address] [place] [address], [place] [address] 29 May, 2010 [facility] [address] [id number] [address] [place] [address], [place] [address] 27 Apr, 2010 [facility] [address] [id number] [address] [place] [address], [place] [address] 13 Oct, 2009 [facility] [address] [id number] [address] [place] [address], [place] [address] 13 Aug, 2009 [facility] [address] [id number] [address] [place] [address], [place] [address] 20 Jul, 2009 [facility] [address] [id number] [address] [place] [address], [place] [address] 22 Jun, 2009 [facility] [address] [id number] [address] [place] [address] 16 Jun, 2009 [facility] [address] [id number] [address] [place] [address], [place] [address] 14 Jun, 2009 [facility] [address] [id number] [address] [place] [address] 14 Jun, 2009 [facility] [address] [id number] [address] [place] [id number] 09 May, 2009 [facility] [address] [id number] [address] [place] [address] 20 Apr, 2009 [facility] [address] [id number] [address] [place] [id number] 15 Mar, 2009 [facility] [address] [id number] [address] [place] [id number] 14 Mar, 2009 [facility] [address] [id number] [address] [place] [id number] 11 Dec, 2008 IMMUNIZATIONS No Known Immunizations SOCIAL HISTORY Never Assessed REASON FOR VISIT PLAN OF CARE VITAL SIGNS MEDICATIONS Unknown Medications RESULTS No Results PROCEDURES Procedure Date Ordered Result Body Site PSYTX PT&/FAMILY 30 MINUTES May 29, 2014 INSTRUCTIONS MEDICATIONS ADMINISTERED No Known Medications MEDICAL [...]
--- OUTSIDE RECORDS SUMMARY | 2019-09-01 05:09 | XMS REPORT ---
Author Author Olivia BARILLAS [facility] Address [address] [place] [address] Care Team Providers Care Entry Level Assistant Manager Name Role Phone TYRELL BARILLAS Unavailable PROBLEMS ALLERGIES No Information ENCOUNTERS IMMUNIZATIONS No Known Immunizations SOCIAL HISTORY No smoking Hx information available REASON FOR VISIT PLAN OF CARE VITAL SIGNS MEDICATIONS Unknown Medications RESULTS No Results PROCEDURES No Known procedures INSTRUCTIONS MEDICATIONS ADMINISTERED No Known Medications MEDICAL (GENERAL) HISTORY
--- OUTSIDE RECORDS SUMMARY | 2019-09-01 05:10 | XMS REPORT ---
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 [place] [address], [place] [address] 05 Jun, 2014 [facility] [address] [id number] [address] [place] [address], [place] [address] 05 Jun, 2014 [facility] [address] [id number] [address] [place] [address], [place] [address] Jun, [facility] [address] [id number] [address] [place] [address], [place] [address] Jun, [facility] [address] [id number] [address] [place] [address], [place] [address] Jun, [facility] [address] [id number] [address] [place] [address], [place] [address] 02 Jun, 2014 [facility] [address] [id number] [address] [place] [address] [address] Jun, [facility] [address] [id number] [address] [place] [address], [place] [address] Jun, [facility] [address] [id number] [address] [place] [address], [place] [address] Jun, [facility] [address] [id number] [address] [place] [address], [place] [address] Jun, [facility] [address] [id number] [address] [place] [address], [place] [address] May, [facility] [address] [id number] [address] [place] [address], [place] [address] May, [facility] [address] [id number] [address] [place] [address], [place] [address] May, [facility] [address] [id number] [address] [place] [address], [place] [address] May, [facility] [address] [id number] [address] [place] [address], [place] [address] Apr, [facility] [address] [id number] [address] [place] [address], [place] [address] Apr, [facility] [address] [id number] [address] [place] [address], [place] [address] Apr, [facility] [address] [id number] [address] [place] [id number] Apr, [facility] [address] [id number] [address] [place] [phone] Apr, [facility] [address] [id number] [address] [place] [address], [place] [address] Apr, [facility] [address] [id number] [address] [place] [phone] Apr, [facility] [address] [id number] [address] [place] [phone] Apr, [facility] [address] [id number] [address] [place] [address], [place] [address] 02 Apr, 2014 [facility] [address] [id number] [address] [place] [address], [place] [address] Apr, [facility] [address] [id number] [address] [place] [address], [place] [address] 29 Mar, 2013 [facility] [address] [id number] [address] [place] [address], [place] [address] 29 Mar, 2013 [facility] [address] [id number] [address] [place] [address], [place] [address] 29 Mar, 2013 [facility] [address] [id number] [address] [place] [address], [place] [address] 29 Mar, 2013 [facility] [address] [id number] [address] [place] [address], [place] [address] Mar, 2013 [facility] [address] [id number] [address] [place] [address], [place] [address] Mar, 2013 [facility] [address] [id number] [address] [place] [address], [place] [address] Mar, 2013 [facility] [address] [id number] [address] [place] [address], [place] [address] Mar, 2013 [facility] [address] [id number] [address] [place] [address], [place] [address] Mar, 2013 [facility] [address] [id number] [address] [place] [address], [place] [address] Mar, 2013 [facility] [address] [id number] [address] [place] [address], [place] [address] Mar, 2013 [facility] [address] [id number] [address] [place] [address], [place] [address] Mar, 2013 [facility] [address] [id number] [address] [place] [address], [place] [address] Feb, [facility] [address] [id number] [address] [place] [address], [place] [address] Feb, [facility] [address] [id number] [address] [place] [address], [place] [address] Jan, [facility] [address] [id number] [address] [place] [address], [place] [address] Jan, [facility] [address] [id number] [address] [place] [address], [place] [address] Jan, [facility] [address] [id number] [address] [place] [address], [place] [address] Jan, [facility] [address] [id number] [address] [place] [address], [place] [address] Dec, [facility] [address] [id number] [address] [place] [address], [place] [address] Dec, [facility] [address] [id number] [address] [place] [address], [place] [address] Dec, [facility] [address] [id number] [address] [place] [address], [place] [address] Dec, [facility] [address] [id number] [address] [place] [address], [place] [address] Dec, [facility] [address] [id number] [address] [place] [address], [place] [address] Dec, [facility] [address] [id number] [address] [place] [address], [place] [address] November, [facility] [address] [id number] [address] [place] [address], [place] [address] November, [facility] [address] [id number] [address] [place] [address], [place] [address] November, [facility] [address] [id number] [address] [place] [address], [place] [address] November, [facility] [address] [id number] [address] [place] [address], [place] [address] November, [facility] [address] [id number] [address] [place] [address], [place] [address] November, [facility] [address] [place] [id number] November, [facility] [address] [id number] [address] [place] [address], [place] [address] November, [facility] [address] [id number] [address] [place] [address], [place] [address] November, [facility] [address] [id number] [address] [place] [address], [place] [address] November, [facility] [address] [id number] [address] [place] [address], [place] [address] November, [facility] [address] [id number] [address] [place] [address], [place] [address] November, [facility] [address] [id number] [address] [place] [address], [place] [address] Oct, [facility] [address] [id number] [address] [place] [address], [place] [address] Oct, [facility] [address] [id number] [address] [place] [address], [place] [address] Oct, [facility] [address] [id number] [address] [place] [address], [place] [address] Oct, [facility] [address] [id number] [address] [place] [address], [place] [address] Oct, [facility] [address] [id number] [address] [place] [address], [place] [address] Oct, [facility] [address] [id number] [address] [place] [address], [place] [address] Oct, [facility] [address] [id number] [address] [place] [address], [place] [address] Oct, [facility] [address] [id number] [address] [place] [address], [place] [address] Oct, [facility] [address] [id number] [address] [place] [address], [place] [address] Oct, [facility] [address] [id number] [address] [place] [address], [place] [address] Oct, [facility] [address] [id number] [address] [place] [address], [place] [address] Oct, [facility] [address] [id number] [address] [place] [address], [place] [address] Oct, [facility] [address] [id number] [address] [place] [address], [place] [address] Oct, [facility] [address] [id number] [address] [place] [address], [place] [address] Oct, [facility] [address] [id number] [address] [place] [address], [place] [address] Sep, [facility] [address] [id number] [address] [place] [address], [place] [address] Sep, [facility] [address] [id number] [address] [place] [address], [place] [address] Sep, [facility] [address] [id number] [address] [place] [address], [place] [address] Sep, [facility] [address] [id number] [address] [place] [address], [place] [address] Aug, [facility] [address] [id number] [address] [place] [address], [place] [address] Aug, [facility] [address] [id number] [address] [place] [address], [place] [address] Aug, [facility] [address] [id number] [address] [place] [address], [place] [address] Aug, [facility] [address] [id number] [address] [place] [address], [place] [address] Jul, [facility] [address] [id number] [address] [place] [address], [place] [address] Jul, [facility] [address] [id number] [address] [place] [address], [place] [address] Jul, [facility] [address] [id number] [address] [place] [address], [place] [address] Jul, [facility] [address] [id number] [address] [place] [address], [place] [address] Jul, [facility] [address] [id number] [address] [place] [address], [place] [address] Jul, [facility] [address] [id number] [address] [place] [address], [place] [address] Jul, [facility] [address] [id number] [address] [place] [address], [place] [address] Jul, [facility] [address] [id number] [address] [place] [address], [place] [address] Jul, [facility] [address] [id number] [address] [place] [address], [place] [address] Jul, [facility] [address] [id number] [address] [place] [address], [place] [address] Jul, [facility] [address] [id number] [address] [place] [address], [place] [address] Jul, [facility] [address] [id number] [address] [place] [address], [place] [address] Jul, [facility] [address] [id number] [address] [place] [address], [place] [address] Jul, [facility] [address] [id number] [address] [place] [address], [place] [address] Jun, [facility] [address] [id number] [address] [place] [address], [place] [address] Jun, [facility] [address] [id number] [address] [place] [address], [place] [address] Jun, [facility] [address] [id number] [address] [place] [id number] Jun, [facility] [address] [id number] [address] [place] [address], [place] [address] May, [facility] [address] [id number] [address] [place] [address], [place] [address] May, [facility] [address] [id number] [address] [place] [address], [place] [address] May, [facility] [address] [id number] [address] [place] [phone] May, [facility] [address] [id number] [address] [place] [address], [place] [address] May, [facility] [address] [id number] [address] [place] [address], [place] [address] May, [facility] [address] [id number] [address] [place] [address], [place] [address] May, [facility] [address] [id number] [address] [place] [id number] May, [facility] [address] [id number] [address] [place] [address], [place] [address] Apr, [facility] [address] [id number] [address] [place] [address], [place] [address] Apr, [facility] [address] [id number] [address] [place] [id number] Apr, [facility] [address] [id number] [address] [place] [id number] Apr, [facility] [address] [id number] [address] [place] [place] [address], [place] [address] Apr, [facility] [address] [id number] [address] [place] [id number] Apr, [facility] [address] [id number] [address] [place] [address], [place] [address] Mar, [facility] [address] [id number] [address] [place] [address], [place] [address] 26 Mar, 2013 [facility] [address] [id number] [address] [place] [address], [place] [address] 20 Mar, 2013 [facility] [address] [id number] [address] [place] [address], [place] [address] 17 Mar, 2013 [facility] [place] [address] [id number] [address] [place] [address], [place] [address] 16 Mar, 2013 [facility] [address] [id number] [address] [place] [address], [place] [address] 05 Mar, 2013 [facility] [address] [id number] [address] [place] [address], [place] [address] Feb, [facility] [place] [address] [id number] [address] [place] [address], [place] [address] Feb, [facility] [place] [address] [id number] [address] [place] [address], [place] [address] Feb, [facility] [address] [id number] [address] [place] [address], [place] [address] Feb, [facility] [place] [address] [id number] [address] [place] [address], [place] [address] Jan, [facility] [address] [id number] [address] [place] [address], [place] [address] Jan, [facility] [place] [address] [id number] [address] [place] [address], [place] [address] Jan, [facility] [address] [id number] [address] [place] [address], [place] [address] Jan, [facility] [address] [id number] [address] [place] [address], [place] [address] Jan, [facility] [address] [id number] [address] [place] [address], [place] [address] Dec, [facility] [address] [id number] [address] [place] [address], [place] [address] Dec, [facility] [address] [id number] [address] [place] [address], [place] [address] Dec, [facility] [address] [id number] [address] [place] [address], [place] [address] November, [facility] [address] [id number] [address] [place] [address], [place] [address] November, [facility] [address] [id number] [address] [place] [address], [place] [address] November, [facility] [address] [id number] [address] [place] [address], [place] [address] Oct, [facility] [address] [id number] [address] [place] [address], [place] [address] Oct, [facility] [address] [id number] [address] [place] [address], [place] [address] Oct, [facility] [place] [address] [id number] [address] [place] [address], [place] [address] Oct, [facility] [place] [address] [id number] [address] [place] [address], [place] [address] Oct, [facility] [place] [address] [id number] [address] [place] [address], [place] [address] Oct, [facility] [place] [address] [id number] [address] [place] [address], [place] [address] Oct, [facility] [address] [id number] [address] [place] [address], [place] [address] Sep, [facility] [address] [id number] [address] [place] [address], [place] [address] Sep, [facility] [address] [id number] [address] [place] [address], [place] [address] Sep, [facility] [address] [id number] [address] [place] [address], [place] [address] Sep, [facility] [address] [id number] [address] [place] [phone] Aug, [facility] [address] [id number] [address] [place] [address], [place] [address] Aug, [facility] [address] [id number] [address] [place] [address], [place] [address] Aug, [facility] [address] [id number] [address] [place] [address], [place] [address] Aug, [facility] [address] [id number] [address] [place] [address], [place] [address] Aug, [facility] [place] [address] [id number] [address] [place] [address], [place] [address] Aug, [facility] [address] [id number] [address] [place] [address], [place] [address] Jul, [facility] [address] [id number] [address] [place] [address], [place] [address] Jul, [facility] [address] [id number] [address] [place] [address], [place] [address] Jul, [facility] [address] [id number] [address] [place] [address], [place] [address] Jul, [facility] [address] [id number] [address] [place] [address], [place] [address] Jul, [facility] [address] [id number] [address] [place] [address], [place] [address] Jul, [facility] [address] [id number] [address] [place] [address], [place] [address] Jun, [facility] [address] [id number] [address] [place] [address], [place] [address] Jun, [facility] [address] [id number] [address] [place] [address], [place] [address] Jun, [facility] [address] [id number] [address] [place] [address], [place] [address] Jun, [facility] [address] [id number] [address] [place] [address], [place] [address] Jun, [facility] [address] [id number] [address] [place] [address], [place] [address] Jun, [facility] [address] [id number] [address] [place] [address], [place] [address] May, [facility] [address] [id number] [address] [place] [address], [place] [address] May, [facility] [address] [id number] [address] [place] [address], [place] [address] May, [facility] [address] [id number] [address] [place] [address], [place] [address] May, [facility] [address] [id number] [address] [place] [address], [place] [address] May, [facility] [address] [id number] [address] [place] [address], [place] [address] May, [facility] [address] [id number] [address] [place] [address], [place] [address] May, [facility] [address] [id number] [address] [place] [address], [place] [address] May, [facility] [address] [id number] [address] [place] [address], [place] [address] May, [facility] [address] [id number] [address] [place] [address], [place] [address] May, [facility] [address] [id number] [address] [place] [address], [place] [address] Apr, [facility] [address] [id number] [address] [place] [address], [place] [address] Apr, [facility] [address] [id number] [address] [place] [address], [place] [address] Apr, [facility] [address] [id number] [address] [place] [phone] 23 Apr, 2012 [facility] [address] [id number] [address] [place] [address], [place] [address] 16 Apr, 2012 [facility] [address] [id number] [address] [place] [address], [place] [address] 16 Apr, 2012 [facility] [address] [id number] [address] [place] [address], [place] [address] 15 Apr, 2012 [facility] [address] [id number] [address] [place] [address], [place] [address] 15 Apr, 2012 [facility] [address] [id number] [address] [place] [address], [place] [address] 05 Apr, 2012 [facility] [address] [id number] [address] [place] [address], [place] [address] 28 Mar, 2012 [facility] [address] [id number] [address] [place] [address], [place] [address] 26 Mar, 2012 [facility] [address] [id number] [address] [place] [address], [place] [address] 25 Mar, 2012 [facility] [address] [id number] [address] [place] [address], [place] [address] 19 Mar, 2012 [facility] [address] [id number] [address] [place] [address], [place] [address] 18 Mar, 2012 [facility] [address] [id number] [address] [place] [address], [place] [address] 05 Mar, 2012 [facility] [address] [id number] [address] [place] [address], [place] [address] Feb, [facility] [address] [id number] [address] [place] [address], [place] [address] Feb, [facility] [address] [id number] [address] [place] [address], [place] [address] Feb, [facility] [address] [id number] [address] [place] [address], [place] [address] Jan, [facility] [address] [id number] [address] [place] [address], [place] [address] 31 Jan, 2012 [facility] [address] [id number] [address] [place] [address], [place] [address] Jan, [facility] [address] [id number] [address] [place] [address], [place] [address] Jan, [facility] [address] [id number] [address] [place] [address], [place] [address] Dec, [facility] [address] [id number] [address] [place] [address], [place] [address] November, [facility] [address] [id number] [address] [place] [address], [place] [address] November, [facility] [address] [id number] [address] [place] [address], [place] [address] November, [facility] [address] [id number] [address] [place] [address], [place] [address] November, [facility] [address] [id number] [address] [place] [address], [place] [address] November, [facility] [address] [id number] [address] [place] [address], [place] [address] November, [facility] [address] [id number] [address] [place] [address], [place] [address] Oct, [facility] [address] [id number] [address] [place] [address], [place] [address] Oct, [facility] [address] [id number] [address] [place] [address], [place] [address] Sep, [facility] [address] [id number] [address] [place] [address], [place] [address] Sep, [facility] [address] [id number] [address] [place] [address], [place] [address] Sep, [facility] [address] [id number] [address] [place] [address], [place] [address] Aug, [facility] [address] [id number] [address] [place] [address], [place] [address] Aug, [facility] [address] [id number] [address] [place] [address], [place] [address] 14 Aug, 2011 [facility] [address] [id number] [address] [place] [address], [place] [address] Aug, [facility] [address] [id number] [address] [place] [address], [place] [address] Aug, [facility] [address] [id number] [address] [place] [address], [place] [address] Aug, [facility] [address] [id number] [address] [place] [address], [place] [address] Jul, [facility] [address] [id number] [address] [place] [address], [place] [address] Jul, [facility] [address] [id number] [address] [place] [address], [place] [address] Jul, [facility] [address] [id number] [address] [place] [address], [place] [address] Jul, [facility] [address] [id number] [address] [place] [address], [place] [address] Jul, [facility] [address] [id number] [address] [place] [address], [place] [address] Jul, [facility] [address] [id number] [address] [place] [address], [place] [address] Jul, [facility] [address] [id number] [address] [place] [address], [place] [address] Jul, [facility] [address] [id number] [address] [place] [address], [place] [address] Jul, [facility] [address] [id number] [address] [place] [address], [place] [address] Jul, [facility] [address] [id number] [address] [place] [address], [place] [address] 28 Jun, 2011 [facility] [address] [id number] [address] [place] [address], [place] [address] Jun, [facility] [address] [id number] [address] [place] [address], [place] [address] Jun, [facility] [address] [id number] [address] [place] [address], [place] [address] Jun, [facility] [address] [id number] [address] [place] [address], [place] [address] 30 May, 2011 [facility] [address] [id number] [address] [place] [address], [place] [address] 29 May, 2011 [facility] [address] [id number] [address] [place] [address], [place] [address] May, [facility] [address] [id number] [address] [place] [address], [place] [address] May, [facility] [address] [id number] [address] [place] [address], [place] [address] Apr, [facility] [address] [id number] [address] [place] [address], [place] [address] Apr, [facility] [address] [id number] [address] [place] [address], [place] [address] November, [facility] [address] [id number] [address] [place] [address], [place] [address] Oct, [facility] [address] [id number] [address] [place] [address], [place] [address] Aug, [facility] [address] [id number] [address] [place] [address], [place] [address] Jun, [facility] [address] [id number] [address] [place] [address], [place] [address] Jun, [facility] [address] [id number] [address] [place] [address], [place] [address] Jun, [facility] [address] [id number] [address] [place] [id number] 03 Jun, 2010 [facility] [address] [id number] [address] [place] [id number] 29 May, 2010 [facility] [address] [id number] [address] [place] [id number] 27 Apr, 2010 [facility] [address] [id number] [address] [place] [id number] 13 Oct, 2009 [facility] [address] [id number] [address] [place] [id number] 13 Aug, 2009 [facility] [address] [id number] [address] [place] [id number] 20 Jul, 2009 [facility] [address] [id number] [address] [place] [id number] 22 Jun, 2009 [facility] [address] [id number] [address] [place] [id number] 16 Jun, 2009 [facility] [address] [id number] [address] [place] [id number] 14 Jun, 2009 [facility] [address] [id number] [address] [place] [phone] 14 Jun, 2009 [facility] [address] [id number] [address] [place] [phone] 09 May, 2009 [facility] [address] [id number] [address] [place] [phone] 20 Apr, 2009 [facility] [address] [id number] [address] [place] [phone] 15 Mar, 2009 [facility] [address] [id number] [address] [place] [id number] 14 Mar, 2009 [facility] [address] [id number] [address] [place] [id number] 11 Dec, 2008 IMMUNIZATIONS No Known Immunizations [...]
--- OUTSIDE RECORDS SUMMARY | 2019-09-01 05:10 | XMS REPORT ---
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 [address] [place] [address], [place] [address] Jun, [facility] [address] [id number] [address] [place] [address], [place] [address] Jun, [facility] [address] [id number] [address] [place] [address], [place] [address] 16 Jun, 2014 [facility] [address] [id number] [address] [place] [address], [place] [address] 16 Jun, 2014 [facility] [address] [id number] [address] [place] [address], [place] [address] Jun, [facility] [address] [id number] [address] [place] [address], [place] [address] 05 Jun, 2014 [facility] [address] [id number] [address] [place] [address], [place] [address] 05 Jun, 2014 [facility] [address] [id number] [address] [place] [address], [place] [address] Jun, [facility] [address] [id number] [address] [place] [address], [place] [address] Jun, [facility] [address] [id number] [address] [place] [address], [place] [address] Jun, [facility] [address] [id number] [address] [place] [address], [place] [address] 02 Jun, 2014 [facility] [address] [id number] [address] [place] [address] [address] Jun, [facility] [address] [id number] [address] [place] [address], [place] [address] Jun, [facility] [address] [id number] [address] [place] [address], [place] [address] Jun, [facility] [address] [id number] [address] [place] [address], [place] [address] Jun, [facility] [address] [id number] [address] [place] [address], [place] [address] May, [facility] [address] [id number] [address] [place] [address], [place] [address] May, [facility] [address] [id number] [address] [place] [address], [place] [address] May, [facility] [address] [id number] [address] [place] [address], [place] [address] May, [facility] [address] [id number] [address] [place] [address], [place] [address] Apr, [facility] [address] [id number] [address] [place] [address], [place] [address] Apr, [facility] [address] [id number] [address] [place] [address], [place] [address] Apr, [facility] [address] [id number] [address] [place] [id number] Apr, [facility] [address] [id number] [address] [place] [address] Apr, [facility] [address] [id number] [address] [place] [address], [place] [address] Apr, [facility] [address] [id number] [address] [place] [address] Apr, [facility] [address] [id number] [address] [place] [id number] Apr, [facility] [address] [id number] [address] [place] [address], [place] [address] 02 Apr, 2014 [facility] [address] [id number] [address] [place] [address], [place] [address] Apr, [facility] [address] [id number] [address] [place] [address], [place] [address] 29 Mar, 2013 [facility] [address] [id number] [address] [place] [address], [place] [address] 29 Mar, 2013 [facility] [address] [id number] [address] [place] [address], [place] [address] 29 Mar, 2013 [facility] [address] [id number] [address] [place] [address], [place] [address] 29 Mar, 2013 [facility] [address] [id number] [address] [place] [address], [place] [address] Mar, 2013 [facility] [address] [id number] [address] [place] [address], [place] [address] Mar, 2013 [facility] [address] [id number] [address] [place] [address], [place] [address] Mar, 2013 [facility] [address] [id number] [address] [place] [address], [place] [address] Mar, 2013 [facility] [address] [id number] [address] [place] [address], [place] [address] Mar, 2013 [facility] [address] [id number] [address] [place] [address], [place] [address] Mar, 2013 [facility] [address] [id number] [address] [place] [address], [place] [address] Mar, 2013 [facility] [address] [id number] [address] [place] [address], [place] [address] Mar, 2013 [facility] [address] [id number] [address] [place] [address], [place] [address] Feb, [facility] [address] [id number] [address] [place] [address], [place] [address] Feb, [facility] [address] [id number] [address] [place] [address], [place] [address] Jan, [facility] [address] [id number] [address] [place] [address], [place] [address] Jan, [facility] [address] [id number] [address] [place] [address], [place] [address] Jan, [facility] [address] [id number] [address] [place] [address], [place] [address] Jan, [facility] [address] [id number] [address] [place] [address], [place] [address] Dec, [facility] [address] [id number] [address] [place] [address], [place] [address] Dec, [facility] [address] [id number] [address] [place] [address], [place] [address] Dec, [facility] [address] [id number] [address] [place] [address], [place] [address] Dec, [facility] [address] [id number] [address] [place] [address], [place] [address] Dec, [facility] [address] [id number] [address] [place] [address], [place] [address] Dec, [facility] [address] [id number] [address] [place] [address], [place] [address] November, [facility] [address] [id number] [address] [place] [address], [place] [address] November, [facility] [address] [id number] [address] [place] [address], [place] [address] November, [facility] [address] [id number] [address] [place] [address], [place] [address] November, [facility] [address] [id number] [address] [place] [address], [place] [address] November, [facility] [address] [id number] [address] [place] [address], [place] [address] November, [facility] [address] [place] [id number] November, [facility] [address] [id number] [address] [place] [address], [place] [address] November, [facility] [address] [id number] [address] [place] [address], [place] [address] November, [facility] [address] [id number] [address] [place] [address], [place] [address] November, [facility] [address] [id number] [address] [place] [address], [place] [address] November, [facility] [address] [id number] [address] [place] [address], [place] [address] November, [facility] [address] [id number] [address] [place] [address], [place] [address] Oct, [facility] [address] [id number] [address] [place] [address], [place] [id number] Oct, [facility] [address] [id number] [address] [place] [address], [place] [id number] Oct, [facility] [address] [id number] [address] [place] [address], [place] [address] Oct, [facility] [address] [id number] [address] [place] [address], [place] [id number] Oct, [facility] [address] [id number] [address] [place] [address], [place] [id number] Oct, [facility] [address] [id number] [address] [place] [address], [place] [id number] Oct, [facility] [address] [id number] [address] [place] [address], [place] [address] Oct, [facility] [address] [id number] [address] [place] [address], [place] [address] Oct, [facility] [address] [id number] [address] [place] [address], [place] [id number] Oct, [facility] [address] [id number] [address] [place] [address], [place] [address] Oct, [facility] [address] [id number] [address] [place] [address], [place] [address] Oct, [facility] [address] [id number] [address] [place] [address], [place] [address] Oct, [facility] [address] [id number] [address] [place] [address], [place] [id number] Oct, [facility] [address] [id number] [address] [place] [address], [place] [address] Oct, [facility] [address] [id number] [address] [place] [address], [place] [address] Sep, [facility] [address] [id number] [address] [place] [address], [place] [id number] Sep, [facility] [address] [id number] [address] [place] [address], [place] [id number] Sep, [facility] [address] [id number] [address] [place] [address], [place] [address] Sep, [facility] [address] [id number] [address] [place] [address], [place] [id number] Aug, [facility] [address] [id number] [address] [place] [address], [place] [address] Aug, [facility] [address] [id number] [address] [place] [address], [place] [address] Aug, [facility] [address] [id number] [address] [place] [address], [place] [id number] Aug, [facility] [address] [id number] [address] [place] [address], [place] [address] Jul, [facility] [address] [id number] [address] [place] [address], [place] [id number] Jul, [facility] [address] [id number] [address] [place] [address], [place] [id number] Jul, [facility] [address] [id number] [address] [place] [address], [place] [address] Jul, [facility] [address] [id number] [address] [place] [address], [place] [id number] Jul, [facility] [address] [id number] [address] [place] [address], [place] [id number] Jul, [facility] [address] [id number] [address] [place] [address], [place] [id number] Jul, [facility] [address] [id number] [address] [place] [address], [place] [id number] Jul, [facility] [address] [id number] [address] [place] [address], [place] [id number] Jul, [facility] [address] [id number] [address] [place] [address], [place] [id number] Jul, [facility] [address] [id number] [address] [place] [address], [place] [id number] Jul, [facility] [address] [id number] [address] [place] [address], [place] [id number] Jul, [facility] [address] [id number] [address] [place] [address], [place] [address] Jul, [facility] [address] [id number] [address] [place] [address], [place] [id number] Jul, [facility] [address] [id number] [address] [place] [address], [place] [address] Jun, [facility] [address] [id number] [address] [place] [address], [place] [id number] Jun, [facility] [address] [id number] [address] [place] [address], [place] [address] Jun, [facility] [address] [id number] [address] [place] [id number] Jun, [facility] [address] [id number] [address] [place] [address], [place] [address] May, [facility] [address] [id number] [address] [place] [address], [place] [id number] May, [facility] [address] [id number] [address] [place] [address], [place] [id number] May, [facility] [address] [id number] [address] [place] [id number] May, [facility] [address] [id number] [address] [place] [address], [place] [address] May, [facility] [address] [id number] [address] [place] [address], [place] [id number] May, [facility] [address] [id number] [address] [place] [address], [place] [address] May, [facility] [address] [id number] [place] [id number] May, [facility] [address] [id number] [address] [place] [address], [place] [address] Apr, [facility] [address] [id number] [address] [place] [address], [place] [address] Apr, [facility] [address] [id number] [address] [place] [id number] Apr, [facility] [address] [id number] [address] [place] [id number] Apr, [facility] [address] [id number] [address] [place] [address], [place] [address] Apr, [facility] [address] [id number] [address] [place] [id number] Apr, [facility] [address] [id number] [address] [place] [address], [place] [address] Mar, [facility] [address] [id number] [address] [place] [address], [place] [address] 26 Mar, 2013 [facility] [address] [id number] [address] [place] [address], [place] [address] 20 Mar, 2013 [facility] [address] [id number] [address] [place] [address], [place] [id number] 17 Mar, 2013 [facility] [address] [id number] [address] [place] [address], [place] [address] 16 Mar, 2013 [facility] [address] [id number] [address] [place] [address], [place] [address] 05 Mar, 2013 [facility] [address] [id number] [address] [place] [address], [place] [address] Feb, [facility] [address] [id number] [address] [place] [address], [place] [address] Feb, [facility] [address] [id number] [address] [place] [address], [place] [address] Feb, [facility] [address] [id number] [address] [place] [address], [place] [address] Feb, [facility] [address] [id number] [address] [place] [address], [place] [address] Jan, [facility] [address] [id number] [address] [place] [address], [place] [address] Jan, [facility] [address] [id number] [address] [place] [address], [place] [address] Jan, [facility] [address] [id number] [address] [place] [address], [place] [address] Jan, [facility] [address] [id number] [address] [place] [address], [place] [address] Jan, [facility] [address] [id number] [address] [place] [address], [place] [address] Dec, [facility] [address] [id number] [address] [place] [address], [place] [address] Dec, [facility] [address] [id number] [address] [place] [address], [place] [address] Dec, [facility] [address] [id number] [address] [place] [address], [place] [address] November, [facility] [address] [id number] [address] [place] [address], [place] [address] November, [facility] [address] [id number] [address] [place] [address], [place] [address] November, [facility] [address] [id number] [address] [place] [address], [place] [address] Oct, [facility] [address] [id number] [address] [place] [address], [place] [address] Oct, [facility] [address] [id number] [address] [place] [address], [place] [address] Oct, [facility] [address] [id number] [address] [place] [address], [place] [address] Oct, [facility] [address] [id number] [address] [place] [address], [place] [address] Oct, [facility] [address] [id number] [address] [place] [address], [place] [address] Oct, [facility] [address] [id number] [address] [place] [address], [place] [address] Oct, [facility] [address] [id number] [address] [place] [address], [place] [address] Sep, [facility] [address] [id number] [address] [place] [address], [place] [address] Sep, [facility] [address] [id number] [address] [place] [address], [place] [address] Sep, [facility] [address] [id number] [address] [place] [address], [place] [address] Sep, [facility] [address] [id number] [address] [place] [id number] Aug, [facility] [address] [id number] [address] [place] [address], [place] [address] Aug, [facility] [address] [id number] [address] [place] [address], [place] [address] Aug, [facility] [address] [id number] [address] [place] [address], [place] [address] Aug, [facility] [address] [id number] [address] [place] [address], [place] [address] Aug, [facility] [address] [id number] [address] [place] [address], [place] [address] Aug, [facility] [address] [id number] [address] [place] [address], [place] [address] Jul, [facility] [address] [id number] [address] [place] [address], [place] [address] Jul, [facility] [address] [id number] [address] [place] [address], [place] [address] Jul, [facility] [address] [id number] [address] [place] [address], [place] [address] Jul, [facility] [address] [id number] [address] [place] [address], [place] [address] Jul, [facility] [address] [id number] [address] [place] [address], [place] [address] Jul, [facility] [address] [id number] [address] [place] [address], [place] [address] Jun, [facility] [address] [id number] [address] [place] [address], [place] [address] Jun, [facility] [address] [id number] [address] [place] [address], [place] [address] Jun, [facility] [address] [id number] [address] [place] [address], [place] [address] Jun, [facility] [address] [id number] [address] [place] [address], [place] [address] Jun, [facility] [address] [id number] [address] [place] [address], [place] [address] Jun, [facility] [address] [id number] [address] [place] [address], [place] [address] May, [facility] [address] [id number] [address] [place] [address], [place] [address] May, [facility] [address] [id number] [address] [place] [address], [place] [address] May, [facility] [address] [id number] [address] [place] [address], [place] [address] May, [facility] [address] [id number] [address] [place] [address], [place] [address] May, [facility] [address] [id number] [address] [place] [address], [place] [address] May, [facility] [address] [id number] [address] [place] [address], [place] [address] May, [facility] [address] [id number] [address] [place] [address], [place] [address] May, [facility] [address] [id number] [address] [place] [address], [place] [address] May, [facility] [address] [id number] [address] [place] [address], [place] [address] May, [facility] [address] [id number] [address] [place] [address], [place] [address] Apr, [facility] [address] [id number] [address] [place] [address], [place] [address] Apr, [facility] [address] [id number] [address] [place] [address], [place] [address] Apr, [facility] [address] [id number] [address] [place] [id number] 23 Apr, 2012 [facility] [address] [id number] [address] [place] [address], [place] [address] 16 Apr, 2012 [facility] [address] [id number] [address] [place] [address], [place] [address] 16 Apr, 2012 [facility] [address] [id number] [address] [place] [address], [place] [address] 15 Apr, 2012 [facility] [address] [id number] [address] [place] [address], [place] [address] 15 Apr, 2012 [facility] [address] [id number] [address] [place] [address], [place] [address] 05 Apr, 2012 [facility] [address] [id number] [address] [place] [address], [place] [address] 28 Mar, 2012 [facility] [address] [id number] [address] [place] [address], [place] [id number] 26 Mar, 2012 [facility] [address] [id number] [address] [place] [address], [place] [address] 25 Mar, 2012 [facility] [address] [id number] [address] [place] [address], [place] [id number] 19 Mar, 2012 [facility] [address] [id number] [address] [place] [address], [place] [address] 18 Mar, 2012 [facility] [address] [id number] [address] [place] [address], [place] [address] 05 Mar, 2012 [facility] [address] [id number] [address] [place] [address], [place] [address] Feb, [facility] [address] [id number] [address] [place] [address], [place] [address] Feb, [facility] [address] [id number] [address] [place] [address], [place] [address] Feb, [facility] [address] [id number] [address] [place] [address], [place] [address] Jan, [facility] [address] [id number] [address] [place] [address], [place] [address] 31 Jan, 2012 [facility] [address] [id number] [address] [place] [address], [place] [address] Jan, [facility] [address] [id number] [address] [place] [address], [place] [address] Jan, [facility] [address] [id number] [address] [place] [address], [place] [address] Dec, [facility] [address] [id number] [address] [place] [address], [place] [address] November, [facility] [address] [id number] [address] [place] [address], [place] [address] November, [facility] [address] [id number] [address] [place] [address], [place] [address] November, [facility] [address] [id number] [address] [place] [address], [place] [address] November, [facility] [address] [id number] [address] [place] [address], [place] [address] November, [facility] [address] [id number] [address] [place] [address], [place] [address] November, [facility] [address] [id number] [address] [place] [address], [place] [address] Oct, [facility] [address] [id number] [address] [place] [address], [place] [address] Oct, [facility] [address] [id number] [address] [place] [address], [place] [address] Sep, [facility] [address] [id number] [address] [place] [address], [place] [address] Sep, [facility] [address] [id number] [address] [place] [address], [place] [address] Sep, [facility] [address] [id number] [address] [place] [address], [place] [address] Aug, [facility] [address] [id number] [address] [place] [address], [place] [address] Aug, [facility] [address] [id number] [address] [place] [address], [place] [address] 14 Aug, 2011 [facility] [address] [id number] [address] [place] [address], [place] [address] Aug, [facility] [address] [id number] [address] [place] [address], [place] [address] Aug, [facility] [address] [id number] [address] [place] [address], [place] [address] Aug, [facility] [address] [id number] [address] [place] [address], [place] [address] Jul, [facility] [address] [id number] [address] [place] [address], [place] [address] Jul, [facility] [address] [id number] [address] [place] [address], [place] [address] Jul, [facility] [address] [id number] [address] [place] [address], [place] [address] Jul, [facility] [address] [id number] [address] [place] [address], [place] [address] Jul, [facility] [address] [id number] [address] [place] [address], [place] [address] Jul, [facility] [address] [id number] [address] [place] [address], [place] [address] Jul, [facility] [address] [id number] [address] [place] [address], [place] [address] Jul, [facility] [address] [id number] [address] [place] [address], [place] [address] Jul, [facility] [address] [id number] [address] [place] [address], [place] [address] Jul, [facility] [address] [id number] [address] [place] [address], [place] [address] 28 Jun, 2011 [facility] [address] [id number] [address] [place] [address], [place] [address] Jun, [facility] [address] [id number] [address] [place] [address], [place] [address] Jun, [facility] [address] [id number] [address] [place] [address], [place] [address] Jun, [facility] [address] [id number] [address] [place] [address], [place] [address] 30 May, 2011 [facility] [address] [id number] [address] [place] [address], [place] [address] 29 May, 2011 [facility] [address] [id number] [address] [place] [address], [place] [address] May, [facility] [address] [id number] [address] [place] [address], [place] [address] May, [facility] [address] [id number] [address] [place] [address], [place] [address] Apr, [facility] [address] [id number] [address] [place] [address], [place] [address] Apr, [facility] [address] [id number] [address] [place] [address], [place] [address] November, [facility] [address] [id number] [address] [place] [address], [place] [id number] Oct, [facility] [address] [id number] [address] [place] [address], [place] [address] Aug, [facility] [address] [id number] [address] [place] [address], [place] [address] Jun, [facility] [address] [id number] [address] [place] [address], [place] [address] Jun, [facility] [address] [id number] [address] [place] [address], [place] [address] Jun, [facility] [address] [id number] [address] [place] [id number] 03 Jun, 2010 [facility] [address] [id number] [address] [place] [id number] 29 May, 2010 [facility] [address] [id number] [address] [place] [id number] 27 Apr, 2010 [facility] [address] [id number] [address] [place] [id number] 13 Oct, 2009 [facility] [address] [id number] [address] [place] [id number] 13 Aug, 2009 [facility] [address] [id number] [address] [place] [id number] 20 Jul, 2009 [facility] [address] [id number] [address] [place] [id number] 22 Jun, 2009 [facility] [address] [id number] [address] [place] [id number] 16 Jun, 2009 [facility] [address] [id number] [address] [place] [id number] 14 Jun, 2009 [facility] [address] [id number] [address] [place] [id number] 14 Jun, 2009 [facility] [address] [id number] [address] [place] [id number] 09 May, 2009 [facility] [address] [id number] [address] [place] [id number] 20 Apr, 2009 [facility] [address] [id number] [address] [place] [id number] 15 Mar, 2009 [facility] [address] [id number] [address] [place] [id number] 14 Mar, 2009 [facility] [address] [id number] [address] [place] [id number] 11 Dec, 2008 IMMUNIZATIONS No Known Immunizations SOCIAL HISTORY Never Assessed REASON FOR VISIT PLAN OF CARE VITAL SIGNS Weight 188 lbs 2014-03-16 Temperature 98.8 degrees Fahrenheit 2014-03-16 Heart Rate 78 bpm 2014-03-16 Respiratory Rate 28 2014-03-16 Blood pressure systolic 106 mmHg 2014-03-16 Blood pressure diastolic 80 mmHg 2014-03-16 MEDICATIONS Unknown Medications RESULTS No Results PROCEDURES [...]
--- OUTSIDE RECORDS SUMMARY | 2019-09-01 05:11 | XMS REPORT ---
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 Jun, 2014 [facility] [address] [id number] [address] [place] [address], [place] [address] 16 Jun, 2014 [facility] [address] [id number] [address] [place] [address], [place] [address] Jun, [facility] [address] [id number] [address] [place] [address], [place] [address] Jun, [facility] [address] [id number] [address] [place] [address], [place] [address] 05 Jun, 2014 [facility] [address] [id number] [address] [place] [address], [place] [address] Jun, [facility] [address] [id number] [address] [place] [address], [place] [address] Jun, [facility] [address] [id number] [address] [place] [address], [place] [address] Jun, [facility] [address] [id number] [address] [place] [address], [place] [address] Jun, [facility] [address] [id number] [address] [place] [address], [place] [address] Jun, [facility] [address] [id number] [address] [place] [address], [place] [address] Jun, [facility] [address] [id number] [address] [place] [address], [place] [address] Jun, [facility] [address] [id number] [address] [place] [address], [place] [address] Jun, [facility] [address] [id number] [address] [place] [address], [place] [address] May, [facility] [address] [id number] [address] [place] [address], [place] [address] May, [facility] [address] [id number] [address] [place] [address], [place] [address] May, [facility] [address] [id number] [address] [place] [address], [place] [address] May, [facility] [address] [id number] [address] [place] [address], [place] [address] Apr, [facility] [address] [id number] [address] [place] [address], [place] [address] Apr, [facility] [address] [id number] [address] [place] [address], [place] [address] Apr, [facility] [address] [id number] [address] [place] [address], [place] [address] Apr, [facility] [address] [id number] [address] [place] [address], [place] [address] Apr, [facility] [address] [id number] [address] [place] [address], [place] [address] Apr, [facility] [address] [id number] [address] [place] [address], [place] [address] Apr, [facility] [address] [id number] [address] [place] [address], [place] [address] Apr, [facility] [address] [id number] [address] [place] [address], [place] [address] Apr, [facility] [address] [id number] [address] [place] [address], [place] [address] Apr, [facility] [address] [id number] [address] [place] [address], [place] [address] 29 Mar, 2013 [facility] [address] [id number] [address] [place] [address], [place] [address] 29 Mar, 2013 [facility] [address] [id number] [address] [place] [address], [place] [address] 29 Mar, 2013 [facility] [address] [id number] [address] [place] [address], [place] [address] 29 Mar, 2013 [facility] [address] [id number] [address] [place] [address], [place] [address] 10 Mar, 2013 [facility] [address] [id number] [address] [place] [address], [place] [address] 10 Mar, 2013 [facility] [address] [id number] [address] [place] [address], [place] [address] Mar, 2013 [facility] [address] [id number] [address] [place] [address], [place] [address] Mar, 2013 [facility] [address] [id number] [address] [place] [address], [place] [address] Mar, 2013 [facility] [address] [id number] [address] [place] [address], [place] [address] Mar, 2013 [facility] [address] [id number] [address] [place] [address], [place] [address] Mar, 2013 [facility] [address] [id number] [address] [place] [address], [place] [address] Mar, 2013 [facility] [address] [id number] [address] [place] [address], [place] [address] Feb, [facility] [address] [id number] [address] [place] [address], [place] [address] Feb, [facility] [address] [id number] [address] [place] [address], [place] [address] Jan, [facility] [address] [id number] [address] [place] [address], [place] [address] Jan, [facility] [address] [id number] [address] [place] [address], [place] [address] Jan, [facility] [address] [id number] [address] [place] [address], [place] [address] Jan, [facility] [address] [id number] [address] [place] [address], [place] [address] Dec, [facility] [address] [id number] [address] [place] [address], [place] [address] Dec, [facility] [address] [id number] [address] [place] [address], [place] [address] Dec, [facility] [address] [id number] [address] [place] [address], [place] [address] Dec, [facility] [address] [id number] [address] [place] [address], [place] [address] Dec, [facility] [address] [id number] [address] [place] [address], [place] [address] Dec, [facility] [address] [id number] [address] [place] [address], [place] [address] November, [facility] [address] [id number] [address] [place] [address], [place] [address] November, [facility] [address] [id number] [address] [place] [address], [place] [address] November, [facility] [address] [id number] [address] [place] [address], [place] [address] November, [facility] [address] [id number] [address] [place] [address], [place] [address] November, [facility] [address] [id number] [address] [place] [address], [place] [address] November, [facility] [address] [place] [id number] November, [facility] [address] [id number] [address] [place] [address], [place] [address] November, [facility] [address] [id number] [address] [place] [address], [place] [address] November, [facility] [address] [id number] [address] [place] [address], [place] [address] November, [facility] [address] [id number] [address] [place] [address], [place] [address] November, [facility] [address] [id number] [address] [place] [address], [place] [address] November, [facility] [address] [id number] [address] [place] [address], [place] [address] Oct, [facility] [address] [id number] [facility] [address] Oct, [facility] [address] [id number] [address] [place] [address], [place] [address] Oct, [facility] [address] [id number] [address] [place] [address], [place] [address] Oct, [facility] [address] [id number] [address] [place] [address], [place] [address] Oct, [facility] [address] [id number] [address] [place] [address], [place] [address] Oct, [facility] [address] [id number] [address] [place] [address], [place] [address] Oct, [facility] [address] [id number] [address] [place] [address], [place] [address] Oct, [facility] [address] [id number] [address] [place] [address], [place] [address] Oct, [facility] [address] [id number] [address] [place] [address], [place] [address] Oct, [facility] [address] [id number] [address] [place] [address], [place] [address] Oct, [facility] [address] [id number] [address] [place] [address], [place] [address] Oct, [facility] [address] [id number] [address] [place] [address], [place] [address] Oct, [facility] [address] [id number] [address] [place] [address], [place] [address] Oct, [facility] [address] [id number] [address] [place] [address], [place] [address] Oct, [facility] [address] [id number] [address] [place] [address], [place] [address] Sep, [facility] [address] [id number] [facility] [address] Sep, [facility] [address] [id number] [address] [place] [address], [place] [address] Sep, [facility] [address] [id number] [facility] [address] Sep, [facility] [address] [id number] [address] [place] [address], [place] [address] Aug, [facility] [address] [id number] [address] [place] [address], [place] [address] Aug, [facility] [address] [id number] [address] [place] [address], [place] [address] Aug, [facility] [address] [id number] [address] [place] [address], [place] [address] Aug, [facility] [address] [id number] [address] [place] [address], [place] [address] Jul, [facility] [address] [id number] [address] [place] [address], [place] [address] Jul, [facility] [address] [id number] [address] [place] [address], [place] [id number] Jul, [facility] [address] [id number] [address] [place] [address], [place] [address] Jul, [facility] [address] [id number] [address] [place] [address], [place] [address] Jul, [facility] [address] [id number] [address] [place] [address], [place] [address] Jul, [facility] [address] [id number] [address] [place] [address], [place] [address] Jul, [facility] [address] [id number] [address] [place] [address], [place] [address] Jul, [facility] [address] [id number] [address] [place] [id number] Jul, [facility] [address] [id number] [address] [place] [address], [place] [address] Jul, [facility] [address] [id number] [address] [place] [address], [place] [address] Jul, [facility] [address] [id number] [address] [place] [address], [place] [address] Jul, [facility] [address] [id number] [address] [place] [address], [place] [address] Jul, [facility] [address] [id number] [address] [place] [address], [place] [id number] Jul, [facility] [address] [id number] [address] [place] [address], [place] [address] Jun, [facility] [address] [id number] [address] [place] [address], [place] [id number] Jun, [facility] [address] [id number] [address] [place] [address], [place] [address] Jun, [facility] [address] [id number] [address] [place] [address], [place] [address] Jun, [facility] [address] [id number] [address] [place] [address], [place] [address] May, [facility] [address] [id number] [address] [place] [address], [place] [address] May, [facility] [address] [id number] [address] [place] [address], [place] [address] May, [facility] [address] [id number] [address] [place] [address], [place] [id number] May, [facility] [address] [id number] [address] [place] [address], [place] [address] May, [facility] [address] [id number] [address] [place] [address], [place] [address] May, [facility] [address] [id number] [address] [place] [address], [place] [id number] 05 May, 2013 [facility] [address] [id number] [address] [place] [address], [place] [address] May, [facility] [address] [id number] [address] [place] [address], [place] [address] Apr, [facility] [address] [id number] [address] [place] [address], [place] [address] Apr, [facility] [address] [id number] [address] [place] [address], [place] [address] Apr, [facility] [address] [id number] [address] [place] [address], [place] [address] Apr, [facility] [address] [id number] [address] [place] [address], [place] [address] Apr, [facility] [address] [id number] [address] [place] [address], [place] [address] Apr, [facility] [address] [id number] [address] [place] [address], [place] [id number] 30 Mar, 2013 [facility] [address] [id number] [address] [place] [address], [place] [id number] 26 Mar, 2013 [facility] [address] [id number] [address] [place] [address], [place] [id number] 20 Mar, 2013 [facility] [address] [id number] [address] [place] [address], [place] [id number] 17 Mar, 2013 [facility] [address] [id number] [address] [place] [address], [place] [address] 16 Mar, 2013 [facility] [address] [id number] [address] [place] [address], [place] [address] 05 Mar, 2013 [facility] [address] [id number] [address] [place] [address], [place] [address] Feb, [facility] [address] [id number] [address] [place] [address], [place] [address] Feb, [facility] [address] [id number] [address] [place] [address], [place] [address] Feb, [facility] [address] [id number] [address] [place] [address], [place] [address] Feb, [facility] [address] [id number] [address] [place] [address], [place] [address] Jan, [facility] [address] [id number] [address] [place] [address], [place] [address] Jan, [facility] [address] [id number] [address] [place] [address], [place] [id number] Jan, [facility] [address] [id number] [address] [place] [address], [place] [address] Jan, [facility] [address] [id number] [address] [place] [address], [place] [address] Jan, [facility] [address] [id number] [address] [place] [address], [place] [address] Dec, [facility] [address] [id number] [address] [place] [address], [place] [address] Dec, [facility] [address] [id number] [address] [place] [address], [place] [address] Dec, [facility] [address] [id number] [address] [place] [address], [place] [address] November, [facility] [address] [id number] [address] [place] [address], [place] [address] November, [facility] [address] [id number] [address] [place] [address], [place] [address] November, [facility] [address] [id number] [address] [place] [address], [place] [address] Oct, [facility] [address] [id number] [address] [place] [address], [place] [address] Oct, [facility] [address] [id number] [address] [place] [address], [place] [address] 26 Oct, 2012 [facility] [address] [id number] [address] [place] [address], [place] [address] 25 Oct, 2012 [facility] [address] [id number] [address] [place] [address], [place] [address] 18 Oct, 2012 [facility] [address] [id number] [address] [place] [address], [place] [address] 17 Oct, 2012 [facility] [address] [id number] [address] [place] [address], [place] [address] 15 Oct, 2012 [facility] [address] [id number] [address] [place] [address], [place] [address] 26 Sep, 2012 [facility] [address] [id number] [address] [place] [address], [place] [address] Sep, [facility] [address] [id number] [address] [place] [address], [place] [address] Sep, [facility] [address] [id number] [address] [place] [address], [place] [address] Sep, [facility] [address] [id number] [address] [place] [address], [place] [address] Aug, [facility] [address] [id number] [address] [place] [address], [place] [address] Aug, [facility] [address] [id number] [address] [place] [address], [place] [address] Aug, [facility] [address] [id number] [address] [place] [address], [place] [address] Aug, [facility] [address] [id number] [address] [place] [address], [place] [address] 18 Aug, 2012 [facility] [address] [id number] [address] [place] [address], [place] [address] 05 Aug, 2012 [facility] [address] [id number] [address] [place] [address], [place] [address] Jul, [facility] [address] [id number] [address] [place] [address], [place] [address] Jul, [facility] [address] [id number] [address] [place] [address], [place] [address] Jul, [facility] [address] [id number] [address] [place] [address], [place] [address] Jul, [facility] [address] [id number] [address] [place] [address], [place] [address] Jul, [facility] [address] [id number] [address] [place] [address], [place] [address] Jul, [facility] [address] [id number] [address] [place] [address], [place] [address] Jun, [facility] [address] [id number] [address] [place] [address], [place] [address] Jun, [facility] [address] [id number] [address] [place] [address], [place] [address] Jun, [facility] [address] [id number] [address] [place] [address], [place] [address] Jun, [facility] [address] [id number] [address] [place] [address], [place] [address] Jun, [facility] [address] [id number] [address] [place] [address], [place] [address] Jun, [facility] [address] [id number] [address] [place] [address], [place] [address] May, [facility] [address] [id number] [address] [place] [address], [place] [address] May, [facility] [address] [id number] [address] [place] [address], [place] [address] May, [facility] [address] [id number] [address] [place] [address], [place] [address] May, [facility] [address] [id number] [address] [place] [id number] May, [facility] [address] [id number] [address] [place] [address], [place] [address] May, [facility] [address] [id number] [address] [place] [id number] May, [facility] [address] [id number] [address] [place] [address], [place] [address] May, [facility] [address] [id number] [address] [place] [address], [place] [address] May, [facility] [address] [id number] [address] [place] [address], [place] [address] May, [facility] [address] [id number] [address] [place] [address], [place] [address] Apr, [facility] [address] [id number] [address] [place] [id number] 31 Apr, 2012 [facility] [address] [id number] [address] [place] [address], [place] [address] Apr, [facility] [address] [id number] [address] [place] [address], [place] [address] 23 Apr, 2012 [facility] [address] [id number] [address] [place] [id number] 16 Apr, 2012 [facility] [address] [id number] [address] [place] [id number] 16 Apr, 2012 [facility] [address] [id number] [address] [place] [id number] 15 Apr, 2012 [facility] [address] [id number] [address] [place] [id number] 15 Apr, 2012 [facility] [address] [id number] [address] [place] [id number] Apr, [facility] [address] [id number] [address] [place] [id number] 28 Mar, 2012 [facility] [address] [id number] [facility] [address] 26 Mar, 2012 [facility] [address] [id number] [address] [place] [address], [place] [address] 25 Mar, 2012 [facility] [address] [id number] [address] [place] [address], [place] [address] 19 Mar, 2012 [facility] [address] [id number] [address] [place] [address], [place] [address] 18 Mar, 2012 [facility] [address] [id number] [address] [place] [address], [place] [address] 05 Mar, 2012 [facility] [address] [id number] [address] [place] [address], [place] [address] Feb, [facility] [address] [id number] [address] [place] [address], [place] [address] Feb, [facility] [address] [id number] [address] [place] [address], [place] [address] Feb, [facility] [address] [id number] [address] [place] [address], [place] [address] Jan, [facility] [address] [id number] [address] [place] [address], [place] [address] Jan, [facility] [address] [id number] [address] [place] [address], [place] [address] Jan, [facility] [address] [id number] [address] [place] [address], [place] [address] Jan, [facility] [address] [id number] [address] [place] [address], [place] [address] Dec, [facility] [address] [id number] [address] [place] [address], [place] [address] November, [facility] [address] [id number] [address] [place] [address], [place] [address] November, [facility] [address] [id number] [address] [place] [address], [place] [address] November, [facility] [address] [id number] [address] [place] [address], [place] [address] November, [facility] [address] [id number] [address] [place] [address], [place] [address] November, [facility] [address] [id number] [address] [place] [address], [place] [address] November, [facility] [address] [id number] [address] [place] [address], [place] [address] Oct, [facility] [address] [id number] [address] [place] [address], [place] [address] Oct, [facility] [address] [id number] [address] [place] [address], [place] [address] Sep, [facility] [address] [id number] [address] [place] [address], [place] [address] Sep, [facility] [address] [id number] [address] [place] [address], [place] [address] Sep, [facility] [address] [id number] [address] [place] [address], [place] [address] Aug, [facility] [address] [id number] [address] [place] [address], [place] [address] Aug, [facility] [address] [id number] [address] [place] [address], [place] [address] Aug, [facility] [address] [id number] [address] [place] [address], [place] [address] Aug, [facility] [address] [id number] [address] [place] [address], [place] [address] Aug, [facility] [address] [id number] [address] [place] [address], [place] [address] Aug, [facility] [address] [id number] [address] [place] [address], [place] [address] Jul, [facility] [address] [id number] [address] [place] [address], [place] [address] Jul, [facility] [address] [id number] [address] [place] [address], [place] [address] Jul, [facility] [address] [id number] [address] [place] [address], [place] [address] Jul, [facility] [address] [id number] [address] [place] [address], [place] [address] Jul, [facility] [address] [id number] [address] [place] [address], [place] [address] Jul, [facility] [address] [id number] [address] [place] [address], [place] [address] Jul, [facility] [address] [id number] [address] [place] [address], [place] [address] Jul, [facility] [address] [id number] [address] [place] [address], [place] [address] Jul, [facility] [address] [id number] [address] [place] [address], [place] [address] Jul, [facility] [address] [id number] [address] [place] [address], [place] [address] Jun, [facility] [address] [id number] [address] [place] [address], [place] [address] Jun, [facility] [address] [id number] [address] [place] [address], [place] [address] Jun, [facility] [address] [id number] [address] [place] [address], [place] [address] Jun, [facility] [address] [id number] [address] [place] [address], [place] [address] May, [facility] [address] [id number] [address] [place] [address], [place] [address] May, [facility] [address] [id number] [address] [place] [address], [place] [address] May, [facility] [address] [id number] [address] [place] [address], [place] [address] 08 May, 2011 [facility] [address] [id number] [address] [place] [address], [place] [address] 31 Apr, 2011 [facility] [address] [id number] [address] [place] [address], [place] [address] 31 Apr, 2011 [facility] [address] [id number] [address] [place] [address], [place] [address] 10 Nov, 2010 [facility] [address] [id number] [address] [place] [address], [place] [address] 18 Oct, 2010 [facility] [address] [id number] [address] [place] [address], [place] [address] 17 Aug, 2010 [facility] [address] [id number] [address] [place] [address], [place] [address] 28 Jun, 2010 [facility] [address] [id number] [address] [place] [address], [place] [address] 28 Jun, 2010 [facility] [address] [id number] [address] [place] [address], [place] [address] 27 Jun, 2010 [facility] [address] [id number] [address] [place] [address], [place] [address] 03 Jun, 2010 [facility] [address] [id number] [address] [place] [address], [place] [address] 29 May, 2010 [facility] [address] [id number] [address] [place] [address], [place] [address] 27 Apr, 2010 [facility] [address] [id number] [address] [place] [address], [place] [address] 13 Oct, 2009 [facility] [address] [id number] [address] [place] [address], [place] [address] 13 Aug, 2009 [facility] [address] [id number] [address] [place] [address], [place] [address] Jul, [facility] [address] [id number] [address] [place] [id number] 22 Jun, 2009 [facility] [address] [id number] [address] [place] [id number] 16 Jun, 2009 [facility] [address] [id number] [address] [place] [address] 14 Jun, 2009 [facility] [address] [facility] [id number] [address] [place] [id number] 14 Jun, 2009 [facility] [address] [facility] [id number] [address] [place] [id number] May, [facility] [address] [facility] [id number] [address] [place] [id number] Apr, [facility] [address] [facility] [id number] [address] [place] [id number] 15 Mar, 2009 [facility] [address] [facility] [id number] [address] [place] [id number] 14 Mar, 2009 [facility] [address] [facility] [id number] [address] [place] [id number] 11 Dec, 2008 IMMUNIZATIONS No Known Immunizations [...]
--- OUTSIDE RECORDS SUMMARY | 2019-09-01 05:11 | XMS REPORT ---
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 [address] 05 Jun, 2014 [facility] [address] [id number] [address] [place] [address], [place] [address] Jun, [facility] [address] [id number] [address] [place] [address], [place] [address] Jun, [facility] [address] [id number] [address] [place] [address], [place] [address] Jun, [facility] [address] [id number] [address] [place] [address], [place] [address] Jun, [facility] [address] [id number] [address] [place] [address], [place] [address] Jun, [facility] [address] [id number] [address] [place] [address], [place] [address] Jun, [facility] [address] [id number] [address] [place] [address], [place] [address] Jun, [facility] [address] [id number] [address] [place] [address], [place] [address] Jun, [facility] [address] [id number] [address] [place] [address], [place] [address] May, [facility] [address] [id number] [address] [place] [address], [place] [address] May, [facility] [address] [id number] [address] [place] [address], [place] [address] May, [facility] [address] [id number] [address] [place] [address], [place] [address] May, [facility] [address] [id number] [address] [place] [address], [place] [address] Apr, [facility] [address] [id number] [address] [place] [address], [place] [address] Apr, [facility] [address] [id number] [address] [place] [address], [place] [address] Apr, [facility] [address] [id number] [address] [place] [address], [place] [address] Apr, [facility] [address] [id number] [address] [place] [address], [place] [address] Apr, [facility] [address] [id number] [address] [place] [address], [place] [address] Apr, [facility] [address] [id number] [address] [place] [address], [place] [address] Apr, [facility] [address] [id number] [address] [place] [address], [place] [address] Apr, [facility] [address] [id number] [address] [place] [address], [place] [address] Apr, [facility] [address] [id number] [address] [place] [address], [place] [address] Apr, [facility] [address] [id number] [address] [place] [address], [place] [address] 29 Mar, 2013 [facility] [address] [id number] [address] [place] [address], [place] [address] 29 Mar, 2013 [facility] [address] [id number] [address] [place] [address], [place] [address] 29 Mar, 2013 [facility] [address] [id number] [address] [place] [address], [place] [address] 29 Mar, 2013 [facility] [address] [id number] [address] [place] [address], [place] [address] 10 Mar, 2013 [facility] [address] [id number] [address] [place] [address], [place] [address] 10 Mar, 2013 [facility] [address] [id number] [address] [place] [address], [place] [address] Mar, 2013 [facility] [address] [id number] [address] [place] [address], [place] [address] Mar, 2013 [facility] [address] [id number] [address] [place] [address], [place] [address] Mar, 2013 [facility] [address] [id number] [address] [place] [address], [place] [address] Mar, 2013 [facility] [address] [id number] [address] [place] [address], [place] [address] Mar, 2013 [facility] [address] [id number] [address] [place] [address], [place] [address] Mar, 2013 [facility] [address] [id number] [address] [place] [address], [place] [address] Feb, [facility] [address] [id number] [address] [place] [address], [place] [address] Feb, [facility] [address] [id number] [address] [place] [address], [place] [address] Jan, [facility] [address] [id number] [address] [place] [address], [place] [address] Jan, [facility] [address] [id number] [address] [place] [address], [place] [address] Jan, [facility] [address] [id number] [address] [place] [address], [place] [address] Jan, [facility] [address] [id number] [address] [place] [address], [place] [address] Dec, [facility] [address] [id number] [address] [place] [address], [place] [address] Dec, [facility] [address] [id number] [address] [place] [address], [place] [address] Dec, [facility] [address] [id number] [address] [place] [address], [place] [address] Dec, [facility] [address] [id number] [address] [place] [address], [place] [address] Dec, [facility] [address] [id number] [address] [place] [address], [place] [address] Dec, [facility] [address] [id number] [address] [place] [address], [place] [address] November, [facility] [address] [id number] [address] [place] [address], [place] [address] November, [facility] [address] [id number] [address] [place] [address], [place] [address] November, [facility] [address] [id number] [address] [place] [address], [place] [address] November, [facility] [address] [id number] [address] [place] [address], [place] [address] November, [facility] [address] [id number] [address] [place] [address], [place] [address] November, [facility] [address] [place] [id number] November, [facility] [address] [id number] [address] [place] [address], [place] [address] November, [facility] [address] [id number] [address] [place] [address], [place] [address] November, [facility] [address] [id number] [address] [place] [address], [place] [address] November, [facility] [address] [id number] [address] [place] [address], [place] [address] November, [facility] [address] [id number] [address] [place] [address], [place] [address] November, [facility] [address] [id number] [address] [place] [address], [place] [address] Oct, [facility] [address] [id number] [facility] [place] [address] Oct, [facility] [address] [id number] [address] [place] [address], [place] [address] Oct, [facility] [address] [id number] [address] [place] [address], [place] [address] Oct, [facility] [address] [id number] [address] [place] [address], [place] [address] Oct, [facility] [address] [id number] [address] [place] [address], [place] [address] Oct, [facility] [address] [id number] [address] [place] [address], [place] [address] Oct, [facility] [address] [id number] [address] [place] [address], [place] [address] Oct, [facility] [address] [id number] [address] [place] [address], [place] [address] Oct, [facility] [address] [id number] [address] [place] [address], [place] [address] Oct, [facility] [address] [id number] [address] [place] [address], [place] [address] Oct, [facility] [address] [id number] [address] [place] [address], [place] [address] Oct, [facility] [address] [id number] [address] [place] [address], [place] [address] Oct, [facility] [address] [id number] [address] [place] [address], [place] [address] Oct, [facility] [address] [id number] [address] [place] [address], [place] [address] Oct, [facility] [address] [id number] [address] [place] [address], [place] [address] Sep, [facility] [address] [id number] [facility] [place] [address] Sep, [facility] [address] [id number] [address] [place] [address], [place] [address] Sep, [facility] [address] [id number] [facility] [place] [address] Sep, [facility] [address] [id number] [address] [place] [address], [place] [address] Aug, [facility] [address] [id number] [address] [place] [address], [place] [address] Aug, [facility] [address] [id number] [address] [place] [address], [place] [address] Aug, [facility] [address] [id number] [address] [place] [address], [place] [address] Aug, [facility] [address] [id number] [address] [place] [address], [place] [address] Jul, [facility] [address] [id number] [address] [place] [address], [place] [address] Jul, [facility] [address] [id number] [address] [place] [address], [place] [address] Jul, [facility] [address] [id number] [address] [place] [address], [place] [address] Jul, [facility] [address] [id number] [address] [place] [address], [place] [address] Jul, [facility] [address] [id number] [address] [place] [address], [place] [address] Jul, [facility] [address] [id number] [address] [place] [address], [place] [address] Jul, [facility] [address] [id number] [address] [place] [address], [place] [address] Jul, [facility] [address] [id number] [address] [place] [address] Jul, [facility] [address] [id number] [address] [place] [address], [place] [address] Jul, [facility] [facility] [address] [id number] [address] [place] [address], [place] [address] Jul, [facility] [address] [id number] [address] [place] [address], [place] [address] Jul, [facility] [address] [id number] [address] [place] [address], [place] [address] Jul, [facility] [address] [id number] [address] [place] [address], [place] [address] Jul, [facility] [address] [id number] [address] [place] [address], [place] [address] Jun, [facility] [address] [id number] [address] [place] [address], [place] [address] Jun, [facility] [address] [id number] [address] [place] [address], [place] [address] Jun, [facility] [address] [id number] [address] [place] [address], [place] [address] Jun, [facility] [address] [id number] [address] [place] [address], [place] [address] May, [facility] [address] [id number] [address] [place] [address], [place] [address] May, [facility] [address] [id number] [address] [place] [address], [place] [address] May, [facility] [address] [id number] [address] [place] [address], [place] [address] May, [facility] [address] [id number] [address] [place] [address], [place] [address] May, [facility] [address] [id number] [address] [place] [address], [place] [address] May, [facility] [address] [id number] [address] [place] [address], [place] [address] 05 May, 2013 [facility] [address] [id number] [address] [place] [address], [place] [address] May, [facility] [address] [id number] [address] [place] [address], [place] [address] Apr, [facility] [address] [id number] [address] [place] [address], [place] [address] Apr, [facility] [address] [id number] [address] [place] [address], [place] [address] Apr, [facility] [address] [id number] [address] [place] [address], [place] [address] Apr, [facility] [address] [id number] [address] [place] [address], [place] [address] Apr, [facility] [address] [id number] [address] [place] [address], [place] [address] Apr, [facility] [address] [id number] [address] [place] [address], [place] [address] 30 Mar, 2013 [facility] [address] [id number] [address] [place] [address], [place] [address] 26 Mar, 2013 [facility] [address] [id number] [address] [place] [address], [place] [address] 20 Mar, 2013 [facility] [address] [id number] [address] [place] [address], [place] [address] 17 Mar, 2013 [facility] [address] [id number] [address] [place] [address], [place] [address] 16 Mar, 2013 [facility] [address] [id number] [address] [place] [address], [place] [address] 05 Mar, 2013 [facility] [address] [id number] [address] [place] [address], [place] [address] Feb, [facility] [address] [id number] [address] [place] [address], [place] [address] Feb, [facility] [address] [id number] [address] [place] [address], [place] [address] Feb, [facility] [address] [id number] [address] [place] [address], [place] [address] Feb, [facility] [address] [id number] [address] [place] [address], [place] [address] Jan, [facility] [address] [id number] [address] [place] [address], [place] [address] Jan, [facility] [address] [id number] [address] [place] [address], [place] [address] Jan, [facility] [address] [id number] [address] [place] [address], [place] [address] Jan, [facility] [address] [id number] [address] [place] [address], [place] [address] Jan, [facility] [address] [id number] [address] [place] [address], [place] [address] Dec, [facility] [address] [id number] [address] [place] [address], [place] [address] Dec, [facility] [address] [id number] [address] [place] [address], [place] [address] Dec, [facility] [address] [id number] [address] [place] [address], [place] [address] November, [facility] [address] [id number] [address] [place] [address], [place] [address] November, [facility] [address] [id number] [address] [place] [address], [place] [address] November, [facility] [address] [id number] [address] [place] [address], [place] [address] Oct, [facility] [address] [id number] [address] [place] [address], [place] [address] Oct, [facility] [address] [id number] [address] [place] [address], [place] [address] 26 Oct, 2012 [facility] [address] [id number] [address] [place] [address], [place] [address] 25 Oct, 2012 [facility] [address] [id number] [address] [place] [address], [place] [address] 18 Oct, 2012 [facility] [address] [id number] [address] [place] [address], [place] [address] 17 Oct, 2012 [facility] [address] [id number] [address] [place] [address], [place] [address] 15 Oct, 2012 [facility] [address] [id number] [address] [place] [address], [place] [address] 26 Sep, 2012 [facility] [address] [id number] [address] [place] [address], [place] [address] Sep, [facility] [address] [id number] [address] [place] [address], [place] [address] Sep, [facility] [address] [id number] [address] [place] [address], [place] [address] Sep, [facility] [address] [id number] [address] [place] [address], [place] [address] Aug, [facility] [address] [id number] [address] [place] [address], [place] [address] Aug, [facility] [address] [id number] [address] [place] [address], [place] [address] Aug, [facility] [address] [id number] [address] [place] [address], [place] [address] Aug, [facility] [address] [id number] [address] [place] [address], [place] [address] 18 Aug, 2012 [facility] [address] [id number] [address] [place] [address], [place] [address] 05 Aug, 2012 [facility] [address] [id number] [address] [place] [address], [place] [address] Jul, [facility] [address] [id number] [address] [place] [address], [place] [address] Jul, [facility] [address] [id number] [address] [place] [address], [place] [address] Jul, [facility] [address] [id number] [address] [place] [address], [place] [address] Jul, [facility] [address] [id number] [address] [place] [address], [place] [address] Jul, [facility] [address] [id number] [address] [place] [address], [place] [address] Jul, [facility] [address] [id number] [address] [place] [address], [place] [address] Jun, [facility] [address] [id number] [address] [place] [address], [place] [address] Jun, [facility] [address] [id number] [address] [place] [address], [place] [address] Jun, [facility] [address] [id number] [address] [place] [address], [place] [address] Jun, [facility] [address] [id number] [address] [place] [address], [place] [address] Jun, [facility] [address] [id number] [address] [place] [address], [place] [address] Jun, [facility] [address] [id number] [address] [place] [address], [place] [address] May, [facility] [address] [id number] [address] [place] [address], [place] [address] May, [facility] [address] [id number] [address] [place] [address], [place] [address] May, [facility] [address] [id number] [address] [place] [address], [place] [address] May, [facility] [address] [id number] [address] [place] [address] May, [facility] [address] [id number] [address] [place] [address], [place] [address] May, [facility] [address] [id number] [address] [place] [address] May, [facility] [address] [id number] [address] [place] [address], [place] [address] May, [facility] [address] [id number] [address] [place] [address], [place] [address] May, [facility] [address] [id number] [address] [place] [address], [place] [address] May, [facility] [address] [id number] [address] [place] [address], [place] [address] Apr, [facility] [address] [id number] [address] [place] [address] 31 Apr, 2012 [facility] [address] [id number] [address] [place] [address], [place] [address] Apr, [facility] [address] [id number] [address] [place] [address], [place] [address] 23 Apr, 2012 [facility] [address] [id number] [address] [place] [address] 16 Apr, 2012 [facility] [address] [id number] [address] [place] [address] 16 Apr, 2012 [facility] [address] [id number] [address] [place] [address] 15 Apr, 2012 [facility] [address] [id number] [address] [place] [address] 15 Apr, 2012 [facility] [address] [id number] [address] [place] [address] Apr, [facility] [address] [id number] [address] [place] [address] 28 Mar, 2012 [facility] [address] [id number] [facility] [place] [address] 26 Mar, 2012 [facility] [address] [id number] [address] [place] [address], [place] [address] 25 Mar, 2012 [facility] [address] [id number] [address] [place] [address], [place] [address] 19 Mar, 2012 [facility] [address] [id number] [address] [place] [address], [place] [address] 18 Mar, 2012 [facility] [address] [id number] [address] [place] [address], [place] [address] 05 Mar, 2012 [facility] [address] [id number] [address] [place] [address], [place] [address] Feb, [facility] [address] [id number] [address] [place] [address], [place] [address] Feb, [facility] [address] [id number] [address] [place] [address], [place] [address] Feb, [facility] [address] [id number] [address] [place] [address], [place] [address] Jan, [facility] [address] [id number] [address] [place] [address], [place] [address] Jan, [facility] [address] [id number] [address] [place] [address], [place] [address] Jan, [facility] [address] [id number] [address] [place] [address], [place] [address] Jan, [facility] [address] [id number] [address] [place] [address], [place] [address] Dec, [facility] [address] [id number] [address] [place] [address], [place] [address] November, [facility] [address] [id number] [address] [place] [address], [place] [address] November, [facility] [address] [id number] [address] [place] [address], [place] [address] November, [facility] [address] [id number] [address] [place] [address], [place] [address] November, [facility] [address] [id number] [address] [place] [address], [place] [address] November, [facility] [address] [id number] [address] [place] [address], [place] [address] November, [facility] [address] [id number] [address] [place] [address], [place] [address] Oct, [facility] [address] [id number] [address] [place] [address], [place] [address] Oct, [facility] [address] [id number] [address] [place] [address], [place] [address] Sep, [facility] [address] [id number] [address] [place] [address], [place] [address] Sep, [facility] [address] [id number] [address] [place] [address], [place] [address] Sep, [facility] [address] [id number] [address] [place] [address], [place] [address] Aug, [facility] [address] [id number] [address] [place] [address], [place] [address] Aug, [facility] [address] [id number] [address] [place] [address], [place] [address] Aug, [facility] [address] [id number] [address] [place] [address], [place] [address] Aug, [facility] [address] [id number] [address] [place] [address], [place] [address] Aug, [facility] [address] [id number] [address] [place] [address], [place] [address] Aug, [facility] [address] [id number] [address] [place] [address], [place] [address] Jul, [facility] [address] [id number] [address] [place] [address], [place] [address] Jul, [facility] [address] [id number] [address] [place] [address], [place] [address] Jul, [facility] [address] [id number] [address] [place] [address], [place] [address] Jul, [facility] [address] [id number] [address] [place] [address], [place] [address] Jul, [facility] [address] [id number] [address] [place] [address], [place] [address] Jul, [facility] [address] [id number] [address] [place] [address], [place] [address] Jul, [facility] [address] [id number] [address] [place] [address], [place] [address] Jul, [facility] [address] [id number] [address] [place] [address], [place] [address] Jul, [facility] [address] [id number] [address] [place] [address], [place] [address] Jul, [facility] [address] [id number] [address] [place] [address], [place] [address] Jun, [facility] [address] [id number] [address] [place] [address], [place] [address] Jun, [facility] [address] [id number] [address] [place] [address], [place] [address] Jun, [facility] [address] [id number] [address] [place] [address], [place] [address] Jun, [facility] [address] [id number] [address] [place] [address], [place] [address] May, [facility] [address] [id number] [address] [place] [address], [place] [address] May, [facility] [address] [id number] [address] [place] [address], [place] [address] May, [facility] [address] [id number] [address] [place] [address], [place] [address] 08 May, 2011 [facility] [address] [id number] [address] [place] [address], [place] [address] 31 Apr, 2011 [facility] [address] [id number] [address] [place] [address], [place] [address] 31 Apr, 2011 [facility] [address] [id number] [address] [place] [address], [place] [address] 10 Nov, 2010 [facility] [address] [id number] [address] [place] [address], [place] [address] 18 Oct, 2010 [facility] [address] [id number] [address] [place] [address], [place] [address] 17 Aug, 2010 [facility] [address] [id number] [address] [place] [address], [place] [address] 28 Jun, 2010 [facility] [address] [id number] [address] [place] [address], [place] [address] 28 Jun, 2010 [facility] [address] [id number] [address] [place] [address], [place] [address] 27 Jun, 2010 [facility] [address] [id number] [address] [place] [address], [place] [address] 03 Jun, 2010 [facility] [address] [id number] [address] [place] [address], [place] [address] 29 May, 2010 [facility] [address] [id number] [address] [place] [address], [place] [address] 27 Apr, 2010 [facility] [address] [id number] [address] [place] [address], [place] [address] 13 Oct, 2009 [facility] [address] [id number] [address] [place] [address], [place] [address] 13 Aug, 2009 [facility] [address] [id number] [address] [place] [address], [place] [address] Jul, [facility] [address] [id number] [address] [place] [address] 22 Jun, 2009 [facility] [address] [id number] [address] [place] [address] 16 Jun, 2009 [facility] [address] [id number] [address] [place] [address] 14 Jun, 2009 [facility] [address] [facility] [id number] [address] [place] [address] 14 Jun, 2009 [facility] [address] [facility] [id number] [address] [place] [phone] May, [facility] [address] [facility] [id number] [address] [place] [phone] Apr, [facility] [address] [facility] [id number] [address] [place] [phone] 15 Mar, 2009 [facility] [address] [facility] [id number] [address] [place] [phone] 14 Mar, 2009 [facility] [address] [facility] [id number] [address] [place] [id number] 11 Dec, 2008 IMMUNIZATIONS No Known Immunizations [...]
--- OUTSIDE RECORDS SUMMARY | 2019-09-01 05:11 | XMS REPORT ---
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 [facility] [address] [id number] [address] [place] [address], [place] [address] Jun, [facility] [address] [id number] [address] [place] [address], [place] [address] Jun, [facility] [address] [id number] [address] [place] [address], [place] [address] Jun, [facility] [address] [id number] [address] [place] [address], [place] [address] Jun, [facility] [address] [id number] [address] [place] [address], [place] [address] Jun, [facility] [address] [id number] [address] [place] [address], [place] [address] Jun, [facility] [address] [id number] [address] [place] [address], [place] [address] Jun, [facility] [address] [id number] [address] [place] [address], [place] [address] May, [facility] [address] [id number] [address] [place] [address], [place] [address] May, [facility] [address] [id number] [address] [place] [address], [place] [address] May, [facility] [address] [id number] [address] [place] [address], [place] [address] May, [facility] [address] [id number] [address] [place] [address], [place] [address] Apr, [facility] [address] [id number] [address] [place] [address], [place] [address] Apr, [facility] [address] [id number] [address] [place] [address], [place] [address] Apr, [facility] [address] [id number] [address] [place] [address], [place] [address] Apr, [facility] [address] [id number] [address] [place] [address], [place] [address] Apr, [facility] [address] [id number] [address] [place] [address], [place] [address] Apr, [facility] [address] [id number] [address] [place] [address], [place] [address] Apr, [facility] [address] [id number] [address] [place] [address], [place] [address] Apr, [facility] [address] [id number] [address] [place] [address], [place] [address] Apr, [facility] [address] [id number] [address] [place] [address], [place] [address] Apr, [facility] [address] [id number] [address] [place] [address], [place] [address] Mar, 2013 [facility] [address] [id number] [facility] [address] Mar, 2013 [facility] [address] [id number] [facility] [address] Mar, 2013 [facility] [address] [id number] [address] [place] [address], [place] [address] Mar, 2013 [facility] [address] [id number] [address] [place] [address], [place] [address] Mar, 2013 [facility] [address] [id number] [address] [place] [address], [place] [address] Mar, 2013 [facility] [address] [id number] [address] [place] [address], [place] [address] Mar, 2013 [facility] [address] [id number] [address] [place] [address], [place] [address] Mar, 2013 [facility] [address] [id number] [address] [place] [address], [place] [address] Mar, 2013 [facility] [address] [id number] [address] [place] [address], [place] [address] Mar, 2013 [facility] [address] [id number] [address] [place] [address], [place] [address] Mar, 2013 [facility] [address] [id number] [address] [place] [address], [place] [address] Mar, 2013 [facility] [address] [id number] [address] [place] [address], [place] [address] Feb, [facility] [address] [id number] [address] [place] [address], [place] [address] Feb, [facility] [address] [id number] [address] [place] [address], [place] [address] Jan, [facility] [address] [id number] [address] [place] [address], [place] [address] Jan, [facility] [address] [id number] [address] [place] [address], [place] [address] Jan, [facility] [address] [id number] [address] [place] [address], [place] [address] Jan, [facility] [address] [id number] [address] [place] [address], [place] [address] Dec, [facility] [address] [id number] [address] [place] [address], [place] [address] Dec, [facility] [address] [id number] [address] [place] [address], [place] [address] Dec, [facility] [address] [id number] [address] [place] [address], [place] [address] Dec, [facility] [address] [id number] [address] [place] [address], [place] [address] Dec, [facility] [address] [id number] [address] [place] [address], [place] [address] Dec, [facility] [address] [id number] [address] [place] [address], [place] [address] November, [facility] [address] [id number] [address] [place] [address], [place] [address] November, [facility] [address] [id number] [address] [place] [address], [place] [address] November, [facility] [address] [id number] [address] [place] [address], [place] [address] November, [facility] [address] [id number] [address] [place] [address], [place] [address] November, [facility] [address] [id number] [address] [place] [address], [place] [address] November, [address] [id number] November, [facility] [address] [id number] [address] [place] [address], [place] [address] November, [facility] [address] [id number] [address] [place] [address], [place] [address] November, [facility] [address] [id number] [address] [place] [address], [place] [address] November, [facility] [address] [id number] [address] [place] [address], [place] [address] November, [facility] [address] [id number] [address] [place] [address], [place] [address] November, [facility] [address] [id number] [address] [place] [address], [place] [address] Oct, [facility] [address] [id number] [address] [place] [address], [place] [address] Oct, [facility] [address] [id number] [address] [place] [address], [place] [address] Oct, [facility] [address] [id number] [address] [place] [address], [place] [address] Oct, [facility] [address] [id number] [address] [place] [address], [place] [address] Oct, [facility] [address] [id number] [address] [place] [address], [place] [address] Oct, [facility] [address] [id number] [address] [place] [address], [place] [address] Oct, [facility] [address] [id number] [address] [place] [address], [place] [address] Oct, [facility] [address] [id number] [address] [place] [address], [place] [address] Oct, [facility] [address] [id number] [address] [place] [address], [place] [address] Oct, [facility] [address] [id number] [address] [place] [address], [place] [address] Oct, [facility] [address] [id number] [address] [place] [address], [place] [address] Oct, [facility] [address] [id number] [facility] [address] Oct, [facility] [address] [id number] [address] [place] [address], [place] [address] Oct, [facility] [address] [id number] [facility] [place] [address] Oct, [facility] [address] [id number] [address] [place] [address], [place] [address] Sep, [facility] [address] [id number] [address] [place] [address], [place] [address] Sep, [facility] [address] [id number] [address] [place] [address], [place] [address] Sep, [facility] [address] [id number] [address] [place] [address], [place] [id number] Sep, [facility] [address] [id number] [address] [place] [address], [place] [address] Aug, [facility] [address] [id number] [address] [place] [address], [place] [address] Aug, [facility] [address] [id number] [address] [place] [address], [place] [address] Aug, [facility] [address] [id number] [address] [place] [address], [place] [address] Aug, [facility] [address] [id number] [address] [place] [address], [place] [id number] Jul, [facility] [address] [id number] [address] [place] [address], [place] [address] Jul, [facility] [address] [id number] [address] [place] [address], [place] [address] Jul, [facility] [address] [id number] [address] [place] [address], [place] [address] Jul, [facility] [address] [id number] [address] [place] [address], [place] [address] Jul, [facility] [address] [id number] [address] [place] [address], [place] [address] Jul, [facility] [address] [id number] [address] [place] [address], [place] [address] Jul, [facility] [address] [id number] [address] [place] [address], [place] [id number] Jul, [facility] [address] [id number] [address] [place] [address], [place] [address] Jul, [facility] [address] [id number] [address] [place] [address], [place] [address] Jul, [facility] [address] [id number] [address] [place] [address], [place] [address] Jul, [facility] [address] [id number] [address] [place] [address], [place] [address] Jul, [facility] [address] [id number] [address] [place] [address], [place] [address] Jul, [facility] [address] [id number] [address] [place] [address], [place] [address] Jul, [facility] [address] [id number] [address] [place] [address], [place] [address] Jun, [facility] [address] [id number] [address] [place] [address], [place] [address] Jun, [facility] [address] [id number] [address] [place] [address], [place] [address] Jun, [facility] [address] [id number] [address] [place] [address], [place] [address] Jun, [facility] [address] [id number] [address] [place] [address], [place] [address] May, [facility] [address] [id number] [address] [place] [address], [place] [address] May, [facility] [address] [id number] [address] [place] [address], [place] [address] May, [facility] [address] [id number] [address] [place] [address], [place] [address] May, [facility] [address] [id number] [address] [place] [address], [place] [address] May, [facility] [address] [id number] [address] [place] [address], [place] [address] May, [facility] [address] [id number] [address] [place] [address], [place] [address] May, [facility] [address] [id number] [address] [place] [address], [place] [address] May, [facility] [address] [id number] [address] [place] [address], [place] [address] Apr, [facility] [address] [id number] [address] [place] [address], [place] [address] Apr, [facility] [address] [id number] [address] [place] [address], [place] [address] Apr, [facility] [address] [id number] [address] [place] [address], [place] [address] Apr, [facility] [address] [id number] [address] [place] [address], [place] [address] Apr, [facility] [address] [id number] [address] [place] [address], [place] [address] Apr, [facility] [address] [id number] [address] [place] [address], [place] [id number] 30 Mar, 2013 [facility] [address] [id number] [address] [place] [address], [place] [id number] Mar, [facility] [address] [id number] [address] [place] [address], [place] [address] 20 Mar, 2013 [facility] [address] [id number] [address] [place] [address], [place] [id number] 17 Mar, 2013 [facility] [address] [id number] [address] [place] [address], [place] [id number] 16 Mar, 2013 [facility] [address] [id number] [address] [place] [address], [place] [address] Mar, [facility] [address] [id number] [address] [place] [address], [place] [id number] Feb, [facility] [address] [id number] [address] [place] [address], [place] [id number] Feb, [facility] [address] [id number] [address] [place] [address], [place] [id number] Feb, [facility] [address] [id number] [address] [place] [address], [place] [address] Feb, [facility] [address] [id number] [address] [place] [address], [place] [address] Jan, [facility] [address] [id number] [address] [place] [address], [place] [address] Jan, [facility] [address] [id number] [address] [place] [address], [place] [address] Jan, [facility] [address] [id number] [address] [place] [address], [place] [address] Jan, [facility] [address] [id number] [address] [place] [address], [place] [address] Jan, [facility] [address] [id number] [address] [place] [address], [place] [address] Dec, [facility] [address] [id number] [address] [place] [address], [place] [address] Dec, [facility] [address] [id number] [address] [place] [address], [place] [address] Dec, [facility] [address] [id number] [address] [place] [address], [place] [address] November, [facility] [address] [id number] [address] [place] [address], [place] [address] November, [facility] [address] [id number] [address] [place] [address], [place] [address] November, [facility] [address] [id number] [address] [place] [address], [place] [address] Oct, [facility] [address] [id number] [address] [place] [address], [place] [address] Oct, [facility] [address] [id number] [address] [place] [address], [place] [address] Oct, [facility] [address] [id number] [address] [place] [address], [place] [address] Oct, [facility] [address] [id number] [address] [place] [address], [place] [address] Oct, [facility] [address] [id number] [address] [place] [address], [place] [address] Oct, [facility] [address] [id number] [address] [place] [address], [place] [address] Oct, [facility] [address] [id number] [address] [place] [address], [place] [address] Sep, [facility] [address] [id number] [address] [place] [address], [place] [address] Sep, [facility] [address] [id number] [address] [place] [address], [place] [address] Sep, [facility] [address] [id number] [address] [place] [address], [place] [address] Sep, [facility] [address] [id number] [address] [place] [address], [place] [address] Aug, [facility] [address] [id number] [address] [place] [address], [place] [address] Aug, [facility] [address] [id number] [address] [place] [address], [place] [address] Aug, [facility] [address] [id number] [address] [place] [address], [place] [address] Aug, [facility] [address] [id number] [address] [place] [address], [place] [address] Aug, [facility] [address] [id number] [address] [place] [address], [place] [address] Aug, [facility] [address] [id number] [address] [place] [address], [place] [address] Jul, [facility] [address] [id number] [address] [place] [address], [place] [address] Jul, [facility] [address] [id number] [address] [place] [address], [place] [address] Jul, [facility] [address] [id number] [address] [place] [address], [place] [address] Jul, [facility] [address] [id number] [address] [place] [address], [place] [address] Jul, [facility] [address] [id number] [address] [place] [address], [place] [address] Jul, [facility] [address] [id number] [address] [place] [address], [place] [address] Jun, [facility] [address] [id number] [address] [place] [address], [place] [address] Jun, [facility] [address] [id number] [address] [place] [address], [place] [address] Jun, [facility] [address] [id number] [address] [place] [address], [place] [address] Jun, [facility] [address] [id number] [address] [place] [address], [place] [address] Jun, [facility] [address] [id number] [address] [place] [address], [place] [address] Jun, [facility] [address] [id number] [address] [place] [address], [place] [address] May, [facility] [address] [id number] [address] [place] [address], [place] [address] May, [facility] [address] [id number] [address] [place] [address], [place] [address] May, [facility] [address] [id number] [address] [place] [address], [place] [address] May, [facility] [address] [id number] [address] [place] [address], [place] [address] May, [facility] [address] [id number] [address] [place] [address], [place] [address] May, [facility] [address] [id number] [address] [place] [address], [place] [address] May, [facility] [address] [id number] [address] [place] [address], [place] [address] May, [facility] [address] [id number] [address] [place] [address], [place] [address] May, [facility] [address] [id number] [address] [place] [address], [place] [address] May, [facility] [address] [id number] [address] [place] [address], [place] [address] Apr, [facility] [address] [id number] [address] [place] [address], [place] [address] 31 Apr, 2012 [facility] [address] [id number] [address] [place] [address], [place] [address] Apr, [facility] [address] [id number] [address] [place] [address], [place] [address] Apr, [facility] [address] [id number] [address] [place] [address], [place] [address] 16 Apr, 2012 [facility] [address] [id number] [address] [place] [address], [place] [address] 16 Apr, 2012 [facility] [address] [id number] [address] [place] [address], [place] [address] 15 Apr, 2012 [facility] [address] [id number] [address] [place] [address], [place] [address] 15 Apr, 2012 [facility] [address] [id number] [address] [place] [address], [place] [address] 05 Apr, 2012 [facility] [address] [id number] [address] [place] [address], [place] [address] 28 Mar, 2012 [facility] [address] [id number] [address] [place] [address], [place] [address] 26 Mar, 2012 [facility] [address] [id number] [address] [place] [address], [place] [address] 25 Mar, 2012 [facility] [address] [id number] [address] [place] [address], [place] [address] 19 Mar, 2012 [facility] [address] [id number] [address] [place] [address], [place] [address] 18 Mar, 2012 [facility] [address] [id number] [address] [place] [address], [place] [address] 05 Mar, 2012 [facility] [address] [id number] [address] [place] [address], [place] [address] Feb, [facility] [address] [id number] [address] [place] [address], [place] [address] Feb, [facility] [address] [id number] [address] [place] [address], [place] [address] Feb, [facility] [address] [id number] [address] [place] [address], [place] [address] Jan, [facility] [address] [id number] [address] [place] [address], [place] [address] Jan, [facility] [address] [id number] [address] [place] [address], [place] [address] Jan, [facility] [address] [id number] [address] [place] [address], [place] [address] Jan, [facility] [address] [id number] [address] [place] [address], [place] [address] Dec, [facility] [address] [id number] [address] [place] [address], [place] [address] November, [facility] [address] [id number] [address] [place] [address], [place] [address] November, [facility] [address] [id number] [address] [place] [address], [place] [address] November, [facility] [address] [id number] [address] [place] [address], [place] [address] November, [facility] [address] [id number] [address] [place] [address], [place] [address] November, [facility] [address] [id number] [address] [place] [address], [place] [address] November, [facility] [address] [id number] [address] [place] [address], [place] [address] Oct, [facility] [address] [id number] [address] [place] [address], [place] [address] Oct, [facility] [address] [id number] [address] [place] [address], [place] [address] Sep, [facility] [address] [id number] [address] [place] [address], [place] [address] Sep, [facility] [address] [id number] [address] [place] [address], [place] [address] Sep, [facility] [address] [id number] [address] [place] [address], [place] [address] Aug, [facility] [address] [id number] [address] [place] [address], [place] [address] Aug, [facility] [address] [id number] [address] [place] [address], [place] [address] Aug, [facility] [address] [id number] [address] [place] [address], [place] [address] Aug, [facility] [address] [id number] [address] [place] [address], [place] [address] Aug, [facility] [address] [id number] [address] [place] [address], [place] [address] Aug, [facility] [address] [id number] [address] [place] [address], [place] [address] Jul, [facility] [address] [id number] [address] [place] [address], [place] [address] Jul, [facility] [address] [id number] [address] [place] [address], [place] [address] Jul, [facility] [address] [id number] [address] [place] [address], [place] [address] Jul, [facility] [address] [id number] [address] [place] [address], [place] [address] Jul, [facility] [address] [id number] [address] [place] [address], [place] [address] Jul, [facility] [address] [id number] [address] [place] [address], [place] [address] Jul, [facility] [address] [id number] [address] [place] [address], [place] [address] Jul, [facility] [address] [id number] [address] [place] [address], [place] [address] Jul, [facility] [address] [id number] [address] [place] [address], [place] [address] Jul, [facility] [address] [id number] [address] [place] [address], [place] [address] Jun, [facility] [address] [id number] [address] [place] [address], [place] [address] Jun, [facility] [address] [id number] [address] [place] [address], [place] [address] Jun, [facility] [address] [id number] [address] [place] [address], [place] [address] Jun, [facility] [address] [id number] [address] [place] [address], [place] [address] 30 May, 2011 [facility] [address] [id number] [address] [place] [address], [place] [address] 29 May, 2011 [facility] [address] [id number] [address] [place] [address], [place] [address] May, [facility] [address] [id number] [address] [place] [address], [place] [address] May, [facility] [address] [id number] [address] [place] [address], [place] [address] 31 Apr, 2011 [facility] [address] [id number] [address] [place] [address], [place] [address] 31 Apr, 2011 [facility] [address] [id number] [address] [place] [address], [place] [address] November, [facility] [address] [id number] [address] [place] [address], [place] [address] Oct, [facility] [address] [id number] [address] [place] [address], [place] [address] 17 Aug, 2010 [facility] [address] [id number] [address] [place] [address], [place] [address] Jun, [facility] [address] [id number] [address] [place] [address], [place] [address] Jun, [facility] [address] [id number] [address] [place] [address], [place] [address] Jun, [facility] [address] [id number] [address] [place] [address], [place] [address] 03 Jun, 2010 [facility] [address] [id number] [address] [place] [address], [place] [address] 29 May, 2010 [facility] [address] [id number] [address] [place] [id number] 27 Apr, 2010 [facility] [address] [id number] [address] [place] [id number] Oct, [facility] [address] [id number] [address] [place] [id number] 13 Aug, 2009 [facility] [address] [id number] [address] [place] [id number] Jul, [facility] [address] [id number] [address] [place] [id number] 22 Jun, 2009 [facility] [address] [id number] [address] [place] [id number] 16 Jun, 2009 [facility] [address] [id number] [address] [place] [id number] 14 Jun, 2009 [facility] [address] [id number] [address] [place] [id number] 14 Jun, 2009 [facility] [address] [id number] [address] [place] [id number] May, [facility] [address] [id number] [address] [place] [id number] 20 Apr, 2009 [facility] [address] [id number] [address] [place] [id number] 15 Mar, 2009 [facility] [address] [id number] [address] [place] [id number] 14 Mar, 2009 [facility] [address] [id number] [address] [place] [id number] 11 Dec, 2008 IMMUNIZATIONS No Known Immunizations [...]
--- OUTSIDE RECORDS SUMMARY | 2019-09-01 05:12 | XMS REPORT ---
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 [address], [place] [address] Jun, [facility] [address] [id number] [address] [place] [address], [place] [address] Jun, [facility] [address] [id number] [address] [place] [address], [place] [address] Jun, [facility] [address] [id number] [address] [place] [address], [place] [address] Jun, [facility] [address] [id number] [address] [place] [address], [place] [address] Jun, [facility] [address] [id number] [address] [place] [address], [place] [address] Jun, [facility] [address] [id number] [address] [place] [address], [place] [address] Jun, [facility] [address] [id number] [address] [place] [address], [place] [address] Jun, [facility] [address] [id number] [address] [place] [address], [place] [address] Jun, [facility] [address] [id number] [address] [place] [address], [place] [address] Jun, [facility] [address] [id number] [address] [place] [address], [place] [address] Jun, [facility] [address] [id number] [address] [place] [address], [place] [address] May, [facility] [address] [id number] [address] [place] [address], [place] [address] May, [facility] [address] [id number] [address] [place] [address], [place] [address] May, [facility] [address] [id number] [address] [place] [address], [place] [address] May, [facility] [address] [id number] [address] [place] [address], [place] [address] Apr, [facility] [address] [id number] [address] [place] [address], [place] [address] Apr, [facility] [address] [id number] [address] [place] [address], [place] [address] Apr, [facility] [address] [id number] [address] [place] [address], [place] [address] Apr, [facility] [address] [id number] [address] [place] [address], [place] [address] Apr, [facility] [address] [id number] [address] [place] [address], [place] [address] Apr, [facility] [address] [id number] [address] [place] [address], [place] [address] Apr, [facility] [address] [id number] [address] [place] [address], [place] [address] Apr, [facility] [address] [id number] [address] [place] [address], [place] [address] Apr, [facility] [address] [id number] [address] [place] [address], [place] [address] Apr, [facility] [address] [id number] [address] [place] [address], [place] [address] 29 Mar, 2013 [facility] [address] [id number] [address] [place] [address], [place] [address] 29 Mar, 2013 [facility] [address] [id number] [address] [place] [address], [place] [address] 29 Mar, 2013 [facility] [address] [id number] [address] [place] [address], [place] [address] 29 Mar, 2013 [facility] [address] [id number] [address] [place] [address], [place] [address] 10 Mar, 2013 [facility] [address] [id number] [address] [place] [address], [place] [address] 10 Mar, 2013 [facility] [address] [id number] [address] [place] [address], [place] [address] Mar, 2013 [facility] [address] [id number] [address] [place] [address], [place] [address] Mar, 2013 [facility] [address] [id number] [address] [place] [address], [place] [address] Mar, 2013 [facility] [address] [id number] [address] [place] [address], [place] [address] Mar, 2013 [facility] [address] [id number] [address] [place] [address], [place] [address] Mar, 2013 [facility] [address] [id number] [address] [place] [address], [place] [address] Mar, 2013 [facility] [address] [id number] [address] [place] [address], [place] [address] Feb, [facility] [address] [id number] [address] [place] [address], [place] [address] Feb, [facility] [address] [id number] [address] [place] [address], [place] [address] Jan, [facility] [address] [id number] [address] [place] [address], [place] [address] Jan, [facility] [address] [id number] [address] [place] [address], [place] [address] Jan, [facility] [address] [id number] [address] [place] [address], [place] [address] Jan, [facility] [address] [id number] [address] [place] [address], [place] [address] Dec, [facility] [address] [id number] [address] [place] [address], [place] [address] Dec, [facility] [address] [id number] [address] [place] [address], [place] [address] Dec, [facility] [address] [id number] [address] [place] [address], [place] [address] Dec, [facility] [address] [id number] [address] [place] [address], [place] [address] Dec, [facility] [address] [id number] [address] [place] [address], [place] [address] Dec, [facility] [address] [id number] [address] [place] [address], [place] [address] November, [facility] [address] [id number] [address] [place] [address], [place] [address] November, [facility] [address] [id number] [address] [place] [address], [place] [address] November, [facility] [address] [id number] [address] [place] [address], [place] [address] November, [facility] [address] [id number] [address] [place] [address], [place] [address] November, [facility] [address] [id number] [address] [place] [address], [place] [address] November, [facility] [address] [place] [id number] November, [facility] [address] [id number] [address] [place] [address], [place] [address] November, [facility] [address] [id number] [address] [place] [address], [place] [address] November, [facility] [address] [id number] [address] [place] [address], [place] [address] November, [facility] [address] [id number] [address] [place] [address], [place] [address] November, [facility] [address] [id number] [address] [place] [address], [place] [address] November, [facility] [address] [id number] [address] [place] [address], [place] [address] Oct, [facility] [address] [id number] [facility] [place] [address] Oct, [facility] [address] [id number] [address] [place] [address], [place] [address] Oct, [facility] [address] [id number] [address] [place] [address], [place] [address] Oct, [facility] [address] [id number] [address] [place] [address], [place] [address] Oct, [facility] [address] [id number] [address] [place] [address], [place] [address] Oct, [facility] [address] [id number] [address] [place] [address], [place] [address] Oct, [facility] [address] [id number] [address] [place] [address], [place] [address] Oct, [facility] [address] [id number] [address] [place] [address], [place] [address] Oct, [facility] [address] [id number] [address] [place] [address], [place] [address] Oct, [facility] [address] [id number] [address] [place] [address], [place] [address] Oct, [facility] [address] [id number] [address] [place] [address], [place] [address] Oct, [facility] [address] [id number] [address] [place] [address], [place] [address] Oct, [facility] [address] [id number] [address] [place] [address], [place] [address] Oct, [facility] [address] [id number] [address] [place] [address], [place] [address] Oct, [facility] [address] [id number] [address] [place] [address], [place] [address] Sep, [facility] [address] [id number] [facility] [place] [address] Sep, [facility] [address] [id number] [facility] [place] [address] Sep, [facility] [address] [id number] [facility] [place] [address] Sep, [facility] [address] [id number] [facility] [place] [address] Aug, [facility] [address] [id number] [address] [place] [address], [place] [address] Aug, [facility] [address] [id number] [address] [place] [address], [place] [address] Aug, [facility] [address] [id number] [address] [place] [address], [place] [address] Aug, [facility] [address] [id number] [address] [place] [address], [place] [address] Jul, [facility] [address] [id number] [address] [place] [address], [place] [address] Jul, [facility] [address] [id number] [address] [place] [address], [place] [address] Jul, [facility] [address] [id number] [address] [place] [address], [place] [address] Jul, [facility] [address] [id number] [address] [place] [address], [place] [address] Jul, [facility] [address] [id number] [address] [place] [address], [place] [address] Jul, [facility] [address] [id number] [address] [place] [address], [place] [address] Jul, [facility] [address] [id number] [address] [place] [address], [place] [address] Jul, [facility] [address] [id number] [address] [place] [address], [place] [address] 14 Jul, 2013 [facility] [address] [id number] [address] [place] [address], [place] [address] Jul, [facility] [address] [id number] [address] [place] [address], [place] [address] Jul, [facility] [address] [id number] [address] [place] [address], [place] [address] Jul, [facility] [address] [id number] [address] [place] [address], [place] [address] Jul, [facility] [address] [id number] [address] [place] [address], [place] [address] Jul, [facility] [address] [id number] [address] [place] [address], [place] [address] Jun, [facility] [address] [id number] [address] [place] [address], [place] [address] Jun, [facility] [address] [id number] [address] [place] [address], [place] [address] Jun, [facility] [address] [id number] [address] [place] [address], [place] [address] Jun, [facility] [address] [id number] [address] [place] [address], [place] [address] May, [facility] [address] [id number] [address] [place] [address], [place] [address] May, [facility] [address] [id number] [address] [place] [address], [place] [address] May, [facility] [address] [id number] [address] [place] [address], [place] [address] May, [facility] [address] [id number] [address] [place] [address], [place] [address] May, [facility] [address] [id number] [address] [place] [address], [place] [address] May, [facility] [address] [id number] [address] [place] [address], [place] [address] 05 May, 2013 [facility] [address] [id number] [address] [place] [address], [place] [address] May, [facility] [address] [id number] [address] [place] [address], [place] [address] Apr, [facility] [facility] [address] [id number] [address] [place] [address], [place] [address] Apr, [facility] [address] [id number] [address] [place] [address], [place] [address] Apr, [facility] [address] [id number] [address] [place] [address], [place] [address] Apr, [facility] [address] [id number] [address] [place] [address], [place] [address] Apr, [facility] [address] [id number] [address] [place] [address], [place] [address] Apr, [facility] [address] [id number] [address] [place] [address], [place] [address] 30 Mar, 2013 [facility] [address] [id number] [address] [place] [address], [place] [address] 26 Mar, 2013 [facility] [address] [id number] [address] [place] [address], [place] [address] 20 Mar, 2013 [facility] [address] [id number] [address] [place] [address], [place] [address] 17 Mar, 2013 [facility] [address] [id number] [address] [place] [address], [place] [address] 16 Mar, 2013 [facility] [address] [id number] [address] [place] [address], [place] [address] 05 Mar, 2013 [facility] [address] [id number] [address] [place] [address], [place] [address] Feb, [facility] [address] [id number] [address] [place] [address], [place] [address] Feb, [facility] [address] [id number] [address] [place] [address], [place] [address] Feb, [facility] [address] [id number] [address] [place] [address], [place] [address] Feb, [facility] [address] [id number] [address] [place] [address], [place] [address] Jan, [facility] [address] [id number] [address] [place] [address], [place] [address] Jan, [facility] [address] [id number] [address] [place] [address], [place] [address] Jan, [facility] [address] [id number] [address] [place] [address], [place] [address] Jan, [facility] [address] [id number] [address] [place] [address], [place] [address] Jan, [facility] [address] [id number] [address] [place] [address], [place] [address] Dec, [facility] [address] [id number] [address] [place] [address], [place] [address] Dec, [facility] [address] [id number] [address] [place] [address], [place] [address] Dec, [facility] [address] [id number] [address] [place] [address], [place] [address] November, [facility] [address] [id number] [address] [place] [address], [place] [address] November, [facility] [address] [id number] [address] [place] [address], [place] [address] November, [facility] [address] [id number] [address] [place] [address], [place] [address] Oct, [facility] [address] [id number] [address] [place] [address], [place] [address] Oct, [facility] [address] [id number] [address] [place] [address], [place] [address] 26 Oct, 2012 [facility] [address] [id number] [address] [place] [address], [place] [address] 25 Oct, 2012 [facility] [address] [id number] [address] [place] [address], [place] [address] 18 Oct, 2012 [facility] [address] [id number] [address] [place] [address], [place] [address] 17 Oct, 2012 [facility] [address] [id number] [address] [place] [address], [place] [address] 15 Oct, 2012 [facility] [address] [id number] [address] [place] [address], [place] [address] 26 Sep, 2012 [facility] [address] [id number] [address] [place] [address], [place] [address] Sep, [facility] [address] [id number] [address] [place] [address], [place] [address] Sep, [facility] [address] [id number] [address] [place] [address], [place] [address] Sep, [facility] [address] [id number] [address] [place] [address], [place] [address] Aug, [facility] [address] [id number] [address] [place] [address], [place] [address] Aug, [facility] [address] [id number] [address] [place] [address], [place] [address] Aug, [facility] [address] [id number] [address] [place] [address], [place] [address] Aug, [facility] [address] [id number] [address] [place] [address], [place] [address] Aug, [facility] [address] [id number] [address] [place] [address], [place] [address] 05 Aug, 2012 [facility] [address] [id number] [address] [place] [address], [place] [address] Jul, [facility] [address] [id number] [address] [place] [address], [place] [address] 31 Jul, 2012 [facility] [address] [id number] [address] [place] [address], [place] [address] Jul, [facility] [address] [id number] [address] [place] [address], [place] [address] Jul, [facility] [address] [id number] [address] [place] [address], [place] [address] Jul, [facility] [address] [id number] [address] [place] [address], [place] [address] Jul, [facility] [address] [id number] [address] [place] [address], [place] [address] Jun, [facility] [address] [id number] [address] [place] [address], [place] [address] Jun, [facility] [address] [id number] [address] [place] [address], [place] [address] Jun, [facility] [address] [id number] [address] [place] [address], [place] [address] Jun, [facility] [address] [id number] [address] [place] [address], [place] [address] Jun, [facility] [address] [id number] [address] [place] [address], [place] [address] Jun, [facility] [address] [id number] [address] [place] [address], [place] [address] May, [facility] [address] [id number] [address] [place] [address], [place] [address] May, [facility] [address] [id number] [address] [place] [address], [place] [address] May, [facility] [address] [id number] [address] [place] [address], [place] [address] May, [facility] [address] [id number] [address] [place] [address] May, [facility] [address] [id number] [address] [place] [address], [place] [address] May, [facility] [address] [id number] [address] [place] [address] May, [facility] [address] [id number] [address] [place] [address], [place] [address] May, [facility] [address] [id number] [address] [place] [address] May, [facility] [address] [id number] [address] [place] [address], [place] [address] May, [facility] [address] [id number] [address] [place] [address], [place] [address] Apr, [facility] [address] [id number] [address] [place] [address] Apr, [facility] [address] [id number] [address] [place] [address], [place] [address] Apr, [facility] [address] [id number] [address] [place] [address] Apr, [facility] [address] [id number] [address] [place] [address] 16 Apr, 2012 [facility] [address] [id number] [address] [place] [address] 16 Apr, 2012 [facility] [address] [id number] [address] [place] [address] 15 Apr, 2012 [facility] [address] [id number] [address] [place] [address] 15 Apr, 2012 [facility] [address] [id number] [address] [place] [address] Apr, [facility] [address] [id number] [address] [place] [address], [place] [address] 28 Mar, 2012 [facility] [address] [id number] [address] [place] [address], [place] [address] 26 Mar, 2012 [facility] [address] [id number] [address] [place] [address], [place] [address] 25 Mar, 2012 [facility] [address] [id number] [address] [place] [address], [place] [address] Mar, [facility] [address] [id number] [address] [place] [address], [place] [address] 18 Mar, 2012 [facility] [address] [id number] [address] [place] [address], [place] [address] 05 Mar, 2012 [facility] [address] [id number] [address] [place] [address], [place] [address] Feb, [facility] [address] [id number] [address] [place] [address], [place] [address] Feb, [facility] [address] [id number] [address] [place] [address], [place] [address] Feb, [facility] [address] [id number] [address] [place] [address], [place] [address] Jan, [facility] [address] [id number] [address] [place] [address], [place] [address] Jan, [facility] [address] [id number] [address] [place] [address], [place] [address] Jan, [facility] [address] [id number] [address] [place] [address], [place] [address] Jan, [facility] [address] [id number] [address] [place] [address], [place] [address] Dec, [facility] [address] [id number] [address] [place] [address], [place] [address] November, [facility] [address] [id number] [address] [place] [address], [place] [address] November, [facility] [address] [id number] [address] [place] [address], [place] [address] November, [facility] [address] [id number] [address] [place] [address], [place] [address] November, [facility] [address] [id number] [address] [place] [address], [place] [address] November, [facility] [address] [id number] [address] [place] [address], [place] [address] November, [facility] [address] [id number] [address] [place] [address], [place] [address] Oct, [facility] [address] [id number] [address] [place] [address], [place] [address] Oct, [facility] [address] [id number] [address] [place] [address], [place] [address] Sep, [facility] [address] [id number] [address] [place] [address], [place] [address] Sep, [facility] [address] [id number] [address] [place] [address], [place] [address] Sep, [facility] [address] [id number] [address] [place] [address], [place] [address] Aug, [facility] [address] [id number] [address] [place] [address], [place] [address] Aug, [facility] [address] [id number] [address] [place] [address], [place] [address] Aug, [facility] [address] [id number] [address] [place] [address], [place] [address] Aug, [facility] [address] [id number] [address] [place] [address], [place] [address] Aug, [facility] [address] [id number] [address] [place] [address], [place] [address] Aug, [facility] [address] [id number] [address] [place] [address], [place] [address] Jul, [facility] [address] [id number] [address] [place] [address], [place] [address] 24 Jul, 2011 [facility] [address] [id number] [address] [place] [address], [place] [address] Jul, [facility] [address] [id number] [address] [place] [address], [place] [address] Jul, [facility] [address] [id number] [address] [place] [address], [place] [address] Jul, [facility] [address] [id number] [address] [place] [address], [place] [address] Jul, [facility] [address] [id number] [address] [place] [address], [place] [address] Jul, [facility] [address] [id number] [address] [place] [address], [place] [address] Jul, [facility] [address] [id number] [address] [place] [address], [place] [address] Jul, [facility] [address] [id number] [address] [place] [address], [place] [address] Jul, [facility] [address] [id number] [address] [place] [address], [place] [address] Jun, [facility] [address] [id number] [address] [place] [address], [place] [address] Jun, [facility] [address] [id number] [address] [place] [address], [place] [address] Jun, [facility] [address] [id number] [address] [place] [address], [place] [address] Jun, [facility] [address] [id number] [address] [place] [address], [place] [address] 30 May, 2011 [facility] [address] [id number] [address] [place] [address], [place] [address] 29 May, 2011 [facility] [address] [id number] [address] [place] [address], [place] [address] May, [facility] [address] [id number] [address] [place] [address], [place] [address] 08 May, 2011 [facility] [address] [id number] [address] [place] [address], [place] [address] 31 Apr, 2011 [facility] [address] [id number] [address] [place] [address], [place] [address] 31 Apr, 2011 [facility] [address] [id number] [address] [place] [address], [place] [address] November, [facility] [address] [id number] [address] [place] [address], [place] [address] 18 Oct, 2010 [facility] [address] [id number] [address] [place] [address], [place] [address] 17 Aug, 2010 [facility] [address] [id number] [address] [place] [address], [place] [address] 28 Jun, 2010 [facility] [address] [id number] [address] [place] [address], [place] [address] 28 Jun, 2010 [facility] [address] [id number] [address] [place] [address], [place] [address] 27 Jun, 2010 [facility] [address] [id number] [address] [place] [address], [place] [address] 03 Jun, 2010 [facility] [address] [id number] [address] [place] [address], [place] [address] 29 May, 2010 [facility] [address] [id number] [address] [place] [address], [place] [address] 27 Apr, 2010 [facility] [address] [id number] [address] [place] [address], [place] [address] 13 Oct, 2009 [facility] [address] [id number] [address] [place] [address], [place] [address] 13 Aug, 2009 [facility] [address] [id number] [address] [place] [address], [place] [address] Jul, [facility] [address] [id number] [address] [place] [id number] 22 Jun, 2009 [facility] [address] [facility] [id number] [address] [place] [id number] 16 Jun, 2009 [facility] [address] [facility] [id number] [address] [place] [address] 14 Jun, 2009 [facility] [address] [facility] [id number] [address] [place] [id number] 14 Jun, 2009 [facility] [address] [facility] [id number] [address] [place] [address] May, [facility] [address] [facility] [id number] [address] [place] [id number] 20 Apr, 2009 [facility] [address] [facility] [id number] [address] [place] [id number] 15 Mar, 2009 [facility] [address] [facility] [id number] [address] [place] [id number] 14 Mar, 2009 [facility] [address] [facility] [id number] [address] [place] [id number] 11 Dec, 2008 IMMUNIZATIONS No Known Immunizations [...]
--- OUTSIDE RECORDS SUMMARY | 2019-09-01 05:12 | XMS REPORT ---
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 [place] [address] Jun, [facility] [address] [id number] [address] [place] [address], [place] [address] Jun, [facility] [address] [id number] [address] [place] [address], [place] [address] Jun, [facility] [address] [id number] [address] [place] [address], [place] [address] Jun, [facility] [address] [id number] [address] [place] [address], [place] [address] Jun, [facility] [address] [id number] [address] [place] [address], [place] [address] Jun, [facility] [address] [id number] [address] [place] [address], [place] [address] Jun, [facility] [address] [id number] [address] [place] [address], [place] [address] Jun, [facility] [address] [id number] [address] [place] [address], [place] [address] Jun, [facility] [address] [id number] [address] [place] [address], [place] [address] Jun, [facility] [address] [id number] [address] [place] [address], [place] [address] Jun, [facility] [address] [id number] [address] [place] [address], [place] [address] May, [facility] [address] [id number] [address] [place] [address], [place] [address] May, [facility] [address] [id number] [address] [place] [address], [place] [address] May, [facility] [address] [id number] [address] [place] [address], [place] [address] May, [facility] [address] [id number] [address] [place] [address], [place] [address] Apr, [facility] [address] [id number] [address] [place] [address], [place] [address] Apr, [facility] [address] [id number] [address] [place] [address], [place] [address] Apr, [facility] [address] [id number] [address] [place] [address], [place] [address] Apr, [facility] [address] [id number] [address] [place] [address], [place] [address] Apr, [facility] [address] [id number] [address] [place] [address], [place] [address] Apr, [facility] [address] [id number] [address] [place] [address], [place] [address] Apr, [facility] [address] [id number] [address] [place] [address], [place] [address] Apr, [facility] [address] [id number] [address] [place] [address], [place] [address] Apr, [facility] [address] [id number] [address] [place] [address], [place] [address] Apr, [facility] [address] [id number] [address] [place] [address], [place] [address] 29 Mar, 2013 [facility] [address] [id number] [address] [place] [address], [place] [address] 29 Mar, 2013 [facility] [address] [id number] [address] [place] [address], [place] [address] 29 Mar, 2013 [facility] [address] [id number] [address] [place] [address], [place] [address] 29 Mar, 2013 [facility] [address] [id number] [address] [place] [address], [place] [address] 10 Mar, 2013 [facility] [address] [id number] [address] [place] [address], [place] [address] 10 Mar, 2013 [facility] [address] [id number] [address] [place] [address], [place] [address] Mar, 2013 [facility] [address] [id number] [address] [place] [address], [place] [address] Mar, 2013 [facility] [address] [id number] [address] [place] [address], [place] [address] Mar, 2013 [facility] [address] [id number] [address] [place] [address], [place] [address] Mar, 2013 [facility] [address] [id number] [address] [place] [address], [place] [address] Mar, 2013 [facility] [address] [id number] [address] [place] [address], [place] [address] Mar, 2013 [facility] [address] [id number] [address] [place] [address], [place] [address] Feb, [facility] [address] [id number] [address] [place] [address], [place] [address] Feb, [facility] [address] [id number] [address] [place] [address], [place] [address] Jan, [facility] [address] [id number] [address] [place] [address], [place] [address] Jan, [facility] [address] [id number] [address] [place] [address], [place] [address] Jan, [facility] [address] [id number] [address] [place] [address], [place] [address] Jan, [facility] [address] [id number] [address] [place] [address], [place] [address] Dec, [facility] [address] [id number] [address] [place] [address], [place] [address] Dec, [facility] [address] [id number] [address] [place] [address], [place] [address] Dec, [facility] [address] [id number] [address] [place] [address], [place] [address] Dec, [facility] [address] [id number] [address] [place] [address], [place] [address] Dec, [facility] [address] [id number] [address] [place] [address], [place] [address] Dec, [facility] [address] [id number] [address] [place] [address], [place] [address] November, [facility] [address] [id number] [address] [place] [address], [place] [address] November, [facility] [address] [id number] [address] [place] [address], [place] [address] November, [facility] [address] [id number] [address] [place] [address], [place] [address] November, [facility] [address] [id number] [address] [place] [address], [place] [address] November, [facility] [address] [id number] [address] [place] [address], [place] [address] November, [facility] [address] [place] [id number] November, [facility] [address] [id number] [address] [place] [address], [place] [address] November, [facility] [address] [id number] [address] [place] [address], [place] [address] November, [facility] [address] [id number] [address] [place] [address], [place] [address] November, [facility] [address] [id number] [address] [place] [address], [place] [address] November, [facility] [address] [id number] [address] [place] [address], [place] [address] November, [facility] [address] [id number] [address] [place] [address], [place] [address] Oct, [facility] [address] [id number] [facility] [place] [address] Oct, [facility] [address] [id number] [address] [place] [address], [place] [address] Oct, [facility] [address] [id number] [address] [place] [address], [place] [address] Oct, [facility] [address] [id number] [address] [place] [address], [place] [address] Oct, [facility] [address] [id number] [address] [place] [address], [place] [address] Oct, [facility] [address] [id number] [address] [place] [address], [place] [address] Oct, [facility] [address] [id number] [address] [place] [address], [place] [address] Oct, [facility] [address] [id number] [address] [place] [address], [place] [address] Oct, [facility] [address] [id number] [address] [place] [address], [place] [address] Oct, [facility] [address] [id number] [address] [place] [address], [place] [address] Oct, [facility] [address] [id number] [address] [place] [address], [place] [address] Oct, [facility] [address] [id number] [address] [place] [address], [place] [address] Oct, [facility] [address] [id number] [address] [place] [address], [place] [address] Oct, [facility] [address] [id number] [address] [place] [address], [place] [address] Oct, [facility] [address] [id number] [address] [place] [address], [place] [address] Sep, [facility] [address] [id number] [facility] [place] [address] Sep, [facility] [address] [id number] [facility] [place] [address] Sep, [facility] [address] [id number] [facility] [place] [address] Sep, [facility] [address] [id number] [facility] [place] [address] Aug, [facility] [address] [id number] [address] [place] [address], [place] [address] Aug, [facility] [address] [id number] [address] [place] [address], [place] [address] Aug, [facility] [address] [id number] [address] [place] [address], [place] [address] Aug, [facility] [address] [id number] [address] [place] [address], [place] [address] Jul, [facility] [address] [id number] [address] [place] [address], [place] [address] Jul, [facility] [address] [id number] [address] [place] [address], [place] [address] Jul, [facility] [address] [id number] [address] [place] [address], [place] [address] Jul, [facility] [address] [id number] [address] [place] [address], [place] [address] Jul, [facility] [address] [id number] [address] [place] [address], [place] [address] Jul, [facility] [address] [id number] [address] [place] [address], [place] [address] Jul, [facility] [address] [id number] [address] [place] [address], [place] [address] Jul, [facility] [address] [id number] [address] [place] [address], [place] [address] 14 Jul, 2013 [facility] [address] [id number] [address] [place] [address], [place] [address] Jul, [facility] [address] [id number] [address] [place] [address], [place] [address] Jul, [facility] [address] [id number] [address] [place] [address], [place] [address] Jul, [facility] [address] [id number] [address] [place] [address], [place] [address] Jul, [facility] [address] [id number] [address] [place] [address], [place] [address] Jul, [facility] [address] [id number] [address] [place] [address], [place] [address] Jun, [facility] [address] [id number] [address] [place] [address], [place] [address] Jun, [facility] [address] [id number] [address] [place] [address], [place] [address] Jun, [facility] [address] [id number] [address] [place] [address], [place] [address] Jun, [facility] [address] [id number] [address] [place] [address], [place] [address] May, [facility] [address] [id number] [address] [place] [address], [place] [address] May, [facility] [address] [id number] [address] [place] [address], [place] [address] May, [facility] [address] [id number] [address] [place] [address], [place] [address] May, [facility] [address] [id number] [address] [place] [address], [place] [address] May, [facility] [address] [id number] [address] [place] [address], [place] [address] May, [facility] [address] [id number] [address] [place] [address], [place] [address] 05 May, 2013 [facility] [address] [id number] [address] [place] [address], [place] [address] May, [facility] [address] [id number] [address] [place] [address], [place] [address] Apr, [facility] [address] [id number] [address] [place] [address], [place] [address] Apr, [facility] [address] [id number] [address] [place] [address], [place] [address] Apr, [facility] [address] [id number] [address] [place] [address], [place] [address] Apr, [facility] [address] [id number] [address] [place] [address], [place] [address] Apr, [facility] [address] [id number] [address] [place] [address], [place] [address] Apr, [facility] [address] [id number] [address] [place] [address], [place] [address] 30 Mar, 2013 [facility] [address] [id number] [address] [place] [address], [place] [address] 26 Mar, 2013 [facility] [address] [id number] [address] [place] [address], [place] [id number] 20 Mar, 2013 [facility] [address] [id number] [address] [place] [address], [place] [address] 17 Mar, 2013 [facility] [address] [id number] [address] [place] [address], [place] [address] 16 Mar, 2013 [facility] [address] [id number] [address] [place] [address], [place] [address] 05 Mar, 2013 [facility] [address] [id number] [address] [place] [address], [place] [address] Feb, [facility] [address] [id number] [address] [place] [address], [place] [address] Feb, [facility] [address] [id number] [address] [place] [address], [place] [address] Feb, [facility] [address] [id number] [address] [place] [address], [place] [address] Feb, [facility] [address] [id number] [address] [place] [address], [place] [address] Jan, [facility] [address] [id number] [address] [place] [address], [place] [address] Jan, [facility] [address] [id number] [address] [place] [address], [place] [address] Jan, [facility] [address] [id number] [address] [place] [address], [place] [address] Jan, [facility] [address] [id number] [address] [place] [address], [place] [address] Jan, [facility] [address] [id number] [address] [place] [address], [place] [address] Dec, [facility] [address] [id number] [address] [place] [address], [place] [address] Dec, [facility] [address] [id number] [address] [place] [address], [place] [address] Dec, [facility] [address] [id number] [address] [place] [address], [place] [address] November, [facility] [address] [id number] [address] [place] [address], [place] [address] November, [facility] [address] [id number] [address] [place] [address], [place] [address] November, [facility] [address] [id number] [address] [place] [address], [place] [address] Oct, [facility] [address] [id number] [address] [place] [address], [place] [address] Oct, [facility] [address] [id number] [address] [place] [address], [place] [address] 26 Oct, 2012 [facility] [address] [id number] [address] [place] [address], [place] [address] 25 Oct, 2012 [facility] [address] [id number] [address] [place] [address], [place] [address] 18 Oct, 2012 [facility] [address] [id number] [address] [place] [address], [place] [address] 17 Oct, 2012 [facility] [address] [id number] [address] [place] [address], [place] [address] 15 Oct, 2012 [facility] [address] [id number] [address] [place] [address], [place] [address] 26 Sep, 2012 [facility] [address] [id number] [address] [place] [address], [place] [address] Sep, [facility] [address] [id number] [address] [place] [address], [place] [address] Sep, [facility] [address] [id number] [address] [place] [address], [place] [address] Sep, [facility] [address] [id number] [address] [place] [address], [place] [address] Aug, [facility] [address] [id number] [address] [place] [address], [place] [address] Aug, [facility] [address] [id number] [address] [place] [address], [place] [address] Aug, [facility] [address] [id number] [address] [place] [address], [place] [address] Aug, [facility] [address] [id number] [address] [place] [address], [place] [address] Aug, [facility] [address] [id number] [address] [place] [address], [place] [address] 05 Aug, 2012 [facility] [address] [id number] [address] [place] [address], [place] [address] Jul, [facility] [address] [id number] [address] [place] [address], [place] [address] 31 Jul, 2012 [facility] [address] [id number] [address] [place] [address], [place] [address] Jul, [facility] [address] [id number] [address] [place] [address], [place] [address] Jul, [facility] [address] [id number] [address] [place] [address], [place] [address] Jul, [facility] [address] [id number] [address] [place] [address], [place] [address] Jul, [facility] [address] [id number] [address] [place] [address], [place] [address] Jun, [facility] [address] [id number] [address] [place] [address], [place] [address] Jun, [facility] [address] [id number] [address] [place] [address], [place] [address] Jun, [facility] [address] [id number] [address] [place] [address], [place] [address] Jun, [facility] [address] [id number] [address] [place] [address], [place] [address] Jun, [facility] [address] [id number] [address] [place] [address], [place] [address] Jun, [facility] [address] [id number] [address] [place] [address], [place] [address] May, [facility] [address] [id number] [address] [place] [address], [place] [address] May, [facility] [address] [id number] [address] [place] [address], [place] [address] May, [facility] [address] [id number] [address] [place] [address], [place] [address] May, [facility] [address] [id number] [address] [place] [address] May, [facility] [address] [id number] [address] [place] [address], [place] [address] May, [facility] [address] [id number] [address] [place] [id number] May, [facility] [address] [id number] [address] [place] [address], [place] [address] May, [facility] [address] [id number] [address] [place] [address] May, [facility] [address] [id number] [address] [place] [address], [place] [address] May, [facility] [address] [id number] [address] [place] [address], [place] [address] Apr, [facility] [address] [id number] [address] [place] [address] Apr, [facility] [address] [id number] [address] [place] [address], [place] [address] Apr, [facility] [address] [id number] [address] [place] [address] Apr, [facility] [address] [id number] [address] [place] [address] 16 Apr, 2012 [facility] [address] [id number] [address] [place] [address] 16 Apr, 2012 [facility] [address] [id number] [address] [place] [address] 15 Apr, 2012 [facility] [address] [id number] [address] [place] [address] 15 Apr, 2012 [facility] [address] [id number] [address] [place] [address] Apr, [facility] [address] [id number] [address] [place] [address], [place] [address] 28 Mar, 2012 [facility] [address] [id number] [address] [place] [address], [place] [address] 26 Mar, 2012 [facility] [address] [id number] [address] [place] [address], [place] [address] 25 Mar, 2012 [facility] [address] [id number] [address] [place] [address], [place] [address] Mar, [facility] [address] [id number] [address] [place] [address], [place] [address] 18 Mar, 2012 [facility] [address] [id number] [address] [place] [address], [place] [address] 05 Mar, 2012 [facility] [address] [id number] [address] [place] [address], [place] [address] Feb, [facility] [address] [id number] [address] [place] [address], [place] [address] Feb, [facility] [address] [id number] [address] [place] [address], [place] [address] Feb, [facility] [address] [id number] [address] [place] [address], [place] [address] Jan, [facility] [address] [id number] [address] [place] [address], [place] [address] Jan, [facility] [address] [id number] [address] [place] [address], [place] [address] Jan, [facility] [address] [id number] [address] [place] [address], [place] [address] Jan, [facility] [address] [id number] [address] [place] [address], [place] [address] Dec, [facility] [address] [id number] [address] [place] [address], [place] [address] November, [facility] [address] [id number] [address] [place] [address], [place] [address] November, [facility] [address] [id number] [address] [place] [address], [place] [address] November, [facility] [address] [id number] [address] [place] [address], [place] [address] November, [facility] [address] [id number] [address] [place] [address], [place] [address] November, [facility] [address] [id number] [address] [place] [address], [place] [address] November, [facility] [address] [id number] [address] [place] [address], [place] [address] Oct, [facility] [address] [id number] [address] [place] [address], [place] [address] Oct, [facility] [address] [id number] [address] [place] [address], [place] [address] Sep, [facility] [address] [id number] [address] [place] [address], [place] [address] Sep, [facility] [address] [id number] [address] [place] [address], [place] [address] Sep, [facility] [address] [id number] [address] [place] [address], [place] [address] Aug, [facility] [address] [id number] [address] [place] [address], [place] [address] Aug, [facility] [address] [id number] [address] [place] [address], [place] [address] Aug, [facility] [address] [id number] [address] [place] [address], [place] [address] Aug, [facility] [address] [id number] [address] [place] [address], [place] [address] Aug, [facility] [address] [id number] [address] [place] [address], [place] [address] Aug, [facility] [address] [id number] [address] [place] [address], [place] [address] Jul, [facility] [address] [id number] [address] [place] [address], [place] [address] 24 Jul, 2011 [facility] [address] [id number] [address] [place] [address], [place] [address] Jul, [facility] [address] [id number] [address] [place] [address], [place] [address] Jul, [facility] [address] [id number] [address] [place] [address], [place] [address] Jul, [facility] [address] [id number] [address] [place] [address], [place] [address] Jul, [facility] [address] [id number] [address] [place] [address], [place] [address] Jul, [facility] [address] [id number] [address] [place] [address], [place] [address] Jul, [facility] [address] [id number] [address] [place] [address], [place] [address] Jul, [facility] [address] [id number] [address] [place] [address], [place] [address] Jul, [facility] [address] [id number] [address] [place] [address], [place] [address] Jun, [facility] [address] [id number] [address] [place] [address], [place] [address] Jun, [facility] [address] [id number] [address] [place] [address], [place] [address] Jun, [facility] [address] [id number] [address] [place] [address], [place] [address] Jun, [facility] [address] [id number] [address] [place] [address], [place] [address] 30 May, 2011 [facility] [address] [id number] [address] [place] [address], [place] [address] 29 May, 2011 [facility] [address] [id number] [address] [place] [address], [place] [address] May, [facility] [address] [id number] [address] [place] [address], [place] [address] 08 May, 2011 [facility] [address] [id number] [address] [place] [address], [place] [address] 31 Apr, 2011 [facility] [address] [id number] [address] [place] [address], [place] [address] 31 Apr, 2011 [facility] [address] [id number] [address] [place] [address], [place] [address] November, [facility] [address] [id number] [address] [place] [address], [place] [address] 18 Oct, 2010 [facility] [address] [id number] [address] [place] [address], [place] [address] 17 Aug, 2010 [facility] [address] [id number] [address] [place] [address], [place] [address] 28 Jun, 2010 [facility] [address] [id number] [address] [place] [address], [place] [address] 28 Jun, 2010 [facility] [address] [id number] [address] [place] [address], [place] [address] 27 Jun, 2010 [facility] [address] [id number] [address] [place] [address], [place] [address] 03 Jun, 2010 [facility] [address] [id number] [address] [place] [address], [place] [address] 29 May, 2010 [facility] [address] [id number] [address] [place] [address], [place] [address] 27 Apr, 2010 [facility] [address] [id number] [address] [place] [address], [place] [address] 13 Oct, 2009 [facility] [address] [id number] [address] [place] [address], [place] [address] 13 Aug, 2009 [facility] [address] [id number] [address] [place] [address], [place] [address] Jul, [facility] [address] [id number] [address] [place] [address] 22 Jun, 2009 [facility] [address] [facility] [id number] [address] [place] [address] 16 Jun, 2009 [facility] [address] [facility] [id number] [address] [place] [address] 14 Jun, 2009 [facility] [address] [facility] [id number] [address] [place] [address] 14 Jun, 2009 [facility] [address] [facility] [id number] [address] [place] [address] May, [facility] [address] [facility] [id number] [address] [place] [address] 20 Apr, 2009 [facility] [address] [facility] [id number] [address] [place] [address] 15 Mar, 2009 [facility] [address] [facility] [id number] [address] [place] [address] 14 Mar, 2009 [facility] [address] [facility] [id number] [address] [place] [address] 11 Dec, 2008 IMMUNIZATIONS No Known Immunizations [...]
--- OUTSIDE RECORDS SUMMARY | 2019-09-01 05:13 | XMS REPORT ---
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 [id number] [address] [place] [address], [place] [address] Aug, 2014 [facility] [address] [id number] [address] [place] [address], [place] [address] Aug, 2014 [facility] [address] [id number] [address] [place] [address], [place] [address] Aug, [facility] [address] [id number] [address] [place] [address], [place] [address] Aug, [facility] [address] [id number] [address] [place] [address], [place] [address] Aug, [facility] [address] [id number] [address] [place] [address], [place] [address] Aug, 2014 [facility] [address] [id number] [address] [place] [address], [place] [address] Aug, 2014 [facility] [address] [id number] [address] [place] [address], [place] [address] Aug, 2014 [facility] [address] [id number] [address] [place] [address], [place] [address] Aug, 2014 [facility] [address] [id number] [address] [place] [address], [place] [address] Aug, [facility] [address] [id number] [address] [place] [address], [place] [address] Jul, [facility] [address] [id number] [address] [place] [address], [place] [address] Jul, [facility] [address] [id number] [address] [place] [address], [place] [address] Jun, [facility] [address] [id number] [address] [place] [address], [place] [address] Jun, [facility] [address] [id number] [address] [place] [address], [place] [address] Jun, [facility] [address] [id number] [address] [place] [address], [place] [address] Jun, [facility] [address] [id number] [address] [place] [address], [place] [address] Jun, [facility] [address] [id number] [address] [place] [address], [place] [address] Jun, [facility] [address] [id number] [address] [place] [address], [place] [address] Jun, [facility] [address] [id number] [address] [place] [address], [place] [address] Jun, [facility] [address] [id number] [address] [place] [address], [place] [address] 16 Jun, 2014 [facility] [address] [id number] [address] [place] [address], [place] [address] 16 Jun, 2014 [facility] [address] [id number] [address] [place] [address], [place] [address] Jun, [facility] [address] [id number] [address] [place] [address], [place] [address] Jun, [facility] [address] [id number] [address] [place] [address], [place] [address] 05 Jun, 2014 [facility] [address] [id number] [address] [place] [address], [place] [address] Jun, [facility] [address] [id number] [address] [place] [address], [place] [address] Jun, [facility] [address] [id number] [address] [place] [address], [place] [address] Jun, [facility] [address] [id number] [address] [place] [address], [place] [address] Jun, [facility] [address] [id number] [address] [place] [address], [place] [address] Jun, [facility] [address] [id number] [address] [place] [address], [place] [address] Jun, [facility] [address] [id number] [address] [place] [address], [place] [address] Jun, [facility] [address] [id number] [address] [place] [address], [place] [address] Jun, [facility] [address] [id number] [address] [place] [address], [place] [address] May, [facility] [address] [id number] [address] [place] [address], [place] [address] May, [facility] [address] [id number] [address] [place] [address], [place] [address] May, [facility] [address] [id number] [address] [place] [address], [place] [address] May, [facility] [address] [id number] [address] [place] [address], [place] [address] Apr, [facility] [address] [id number] [address] [place] [address], [place] [address] Apr, [facility] [address] [id number] [address] [place] [address], [place] [address] Apr, [facility] [address] [id number] [address] [place] [address], [place] [address] Apr, [facility] [address] [id number] [address] [place] [address], [place] [address] Apr, [facility] [address] [id number] [address] [place] [address], [place] [address] Apr, [facility] [address] [id number] [address] [place] [address], [place] [address] Apr, [facility] [address] [id number] [address] [place] [address], [place] [address] Apr, [facility] [address] [id number] [address] [place] [address], [place] [address] Apr, [facility] [address] [id number] [address] [place] [address], [place] [address] Apr, [facility] [address] [id number] [address] [place] [address], [place] [address] 29 Mar, 2013 [facility] [address] [id number] [address] [place] [address], [place] [address] 29 Mar, 2013 [facility] [address] [id number] [address] [place] [address], [place] [address] 29 Mar, 2013 [facility] [address] [id number] [address] [place] [address], [place] [address] 29 Mar, 2013 [facility] [address] [id number] [address] [place] [address], [place] [address] 10 Mar, 2013 [facility] [address] [id number] [address] [place] [address], [place] [address] 10 Mar, 2013 [facility] [address] [id number] [address] [place] [address], [place] [address] Mar, 2013 [facility] [address] [id number] [address] [place] [address], [place] [address] Mar, 2013 [facility] [address] [id number] [address] [place] [address], [place] [address] Mar, 2013 [facility] [address] [id number] [address] [place] [address], [place] [address] Mar, 2013 [facility] [address] [id number] [address] [place] [address], [place] [address] Mar, 2013 [facility] [address] [id number] [address] [place] [address], [place] [address] Mar, 2013 [facility] [address] [id number] [address] [place] [address], [place] [address] Feb, [facility] [address] [id number] [address] [place] [address], [place] [address] Feb, [facility] [address] [id number] [address] [place] [address], [place] [address] Jan, [facility] [address] [id number] [address] [address], [place] [address] Jan, [facility] [address] [id number] [address] [address], [place] [address] Jan, [facility] [address] [id number] [address] [place] [address], [place] [address] Jan, [facility] [address] [id number] [address] [place] [address], [place] [address] Dec, [facility] [address] [id number] [address] [place] [address], [place] [address] Dec, [facility] [address] [id number] [address] [address], [place] [address] Dec, [facility] [address] [id number] [address] [address], [place] [address] Dec, [facility] [address] [id number] [address] [place] [address], [place] [address] Dec, [facility] [address] [id number] [address] [address], [place] [address] Dec, [facility] [address] [id number] [address] [place] [address], [place] [address] November, [facility] [address] [id number] [address] [place] [address], [place] [address] November, [facility] [address] [id number] [address] [place] [address], [place] [address] November, [facility] [address] [id number] [address] [place] [address], [place] [address] November, [facility] [address] [id number] [address] [place] [address], [place] [address] November, [facility] [address] [id number] [address] [address], [place] [address] November, [facility] [address] [place] [id number] November, [facility] [address] [id number] [address] [place] [address], [place] [address] November, [facility] [address] [id number] [address] [address], [place] [address] November, [facility] [address] [id number] [address] [address], [place] [address] November, [facility] [address] [id number] [address] [address], [place] [address] November, [facility] [address] [id number] [address] [address], [place] [address] November, [facility] [address] [id number] [address] [address], [place] [address] Oct, [facility] [address] [id number] [address] [address] Oct, [facility] [address] [id number] [address] [place] [address], [place] [address] Oct, [facility] [address] [id number] [address] [place] [address], [place] [address] Oct, [facility] [address] [id number] [address] [place] [address], [place] [address] Oct, [facility] [address] [id number] [address] [place] [address], [place] [address] Oct, [facility] [address] [id number] [address] [place] [address], [place] [address] Oct, [facility] [address] [id number] [address] [place] [address], [place] [address] Oct, [facility] [address] [id number] [address] [place] [address], [place] [address] Oct, [facility] [address] [id number] [address] [address], [place] [address] Oct, [facility] [address] [id number] [address] [address], [place] [address] Oct, [facility] [address] [id number] [address] [place] [address], [place] [address] Oct, [facility] [address] [id number] [address] [address], [place] [address] Oct, [facility] [address] [id number] [address] [address], [place] [address] Oct, [facility] [address] [id number] [address] [address], [place] [address] Oct, [facility] [address] [id number] [address] [address], [place] [address] Sep, [facility] [address] [id number] [facility] [address] Sep, [facility] [address] [id number] [address] [place] [address], [place] [address] Sep, [facility] [address] [id number] [facility] [address] Sep, [facility] [address] [id number] [address] [place] [address], [place] [address] Aug, [facility] [address] [id number] [address] [address] [address], [place] [address] Aug, [facility] [address] [id number] [address] [address], [place] [address] Aug, [facility] [address] [id number] [address] [place] [address], [place] [address] Aug, [facility] [address] [id number] [address] [address], [place] [address] Jul, [facility] [address] [id number] [address] [place] [address], [place] [address] Jul, [facility] [address] [id number] [address] [address], [place] [address] Jul, [facility] [address] [id number] [address] [place] [address], [place] [address] Jul, [facility] [address] [id number] [address] [address], [place] [address] Jul, [facility] [address] [id number] [address] [address], [place] [address] Jul, [facility] [address] [id number] [address] [place] [address], [place] [address] Jul, [facility] [address] [id number] [address] [place] [address], [place] [address] Jul, [facility] [address] [id number] [address] [place] [address] Jul, [facility] [address] [id number] [address] [place] [address], [place] [address] Jul, [facility] [address] [id number] [address] [place] [address], [place] [address] Jul, [facility] [address] [id number] [address] [place] [address], [place] [address] Jul, [facility] [address] [id number] [address] [place] [address], [place] [address] Jul, [facility] [address] [id number] [address] [place] [address], [place] [address] Jul, [facility] [address] [id number] [address] [place] [address], [place] [address] Jun, [facility] [address] [id number] [address] [place] [address], [place] [address] Jun, [facility] [address] [id number] [address] [place] [address], [place] [address] Jun, [facility] [address] [id number] [address] [place] [address], [place] [address] Jun, [facility] [address] [id number] [address] [place] [address], [place] [address] May, [facility] [address] [id number] [address] [place] [address], [place] [address] May, [facility] [address] [id number] [address] [place] [address], [place] [address] May, [facility] [address] [id number] [address] [place] [address], [place] [address] May, [facility] [address] [id number] [address] [place] [address], [place] [address] May, [facility] [address] [id number] [address] [place] [address], [place] [address] May, [facility] [address] [id number] [address] [place] [address], [place] [address] 05 May, 2013 [facility] [address] [id number] [address] [place] [address], [place] [address] May, [facility] [address] [id number] [address] [place] [address], [place] [address] Apr, [facility] [address] [id number] [address] [place] [address], [place] [address] Apr, [facility] [address] [id number] [address] [place] [address], [place] [address] Apr, [facility] [address] [id number] [address] [place] [address], [place] [address] Apr, [facility] [address] [id number] [address] [place] [address], [place] [address] Apr, [facility] [address] [id number] [address] [place] [address], [place] [address] Apr, [facility] [address] [id number] [address] [address], [place] [address] 30 Mar, 2013 [facility] [address] [id number] [address] [address], [place] [address] 26 Mar, 2013 [facility] [address] [id number] [address] [place] [address], [place] [address] 20 Mar, 2013 [facility] [address] [id number] [address] [place] [address], [place] [address] 17 Mar, 2013 [facility] [address] [id number] [address] [address], [place] [address] 16 Mar, 2013 [facility] [address] [id number] [address] [address], [place] [address] 05 Mar, 2013 [facility] [address] [id number] [address] [place] [address], [place] [address] Feb, [facility] [address] [id number] [address] [place] [address], [place] [address] Feb, [facility] [address] [id number] [address] [place] [address], [place] [address] Feb, [facility] [address] [id number] [address] [place] [address], [place] [address] Feb, [facility] [address] [id number] [address] [place] [address], [place] [address] Jan, [facility] [address] [id number] [address] [place] [address], [place] [address] Jan, [facility] [address] [id number] [address] [place] [address], [place] [address] Jan, [facility] [address] [id number] [address] [place] [address], [place] [address] Jan, [facility] [address] [id number] [address] [place] [address], [place] [address] Jan, [facility] [address] [id number] [address] [place] [address], [place] [address] Dec, [facility] [address] [id number] [address] [place] [address], [place] [address] Dec, [facility] [address] [id number] [address] [place] [address], [place] [address] Dec, [facility] [address] [id number] [address] [place] [address], [place] [address] November, [facility] [address] [id number] [address] [place] [address], [place] [address] November, [facility] [address] [id number] [address] [place] [address], [place] [address] November, [facility] [address] [id number] [address] [place] [address], [place] [address] Oct, [facility] [address] [id number] [address] [place] [address], [place] [address] Oct, [facility] [address] [id number] [address] [place] [address], [place] [address] 26 Oct, 2012 [facility] [address] [id number] [address] [place] [address], [place] [address] 25 Oct, 2012 [facility] [address] [id number] [address] [place] [address], [place] [address] 18 Oct, 2012 [facility] [address] [id number] [address] [place] [address], [place] [address] 17 Oct, 2012 [facility] [address] [id number] [address] [place] [address], [place] [address] 15 Oct, 2012 [facility] [address] [id number] [address] [place] [address], [place] [address] 26 Sep, 2012 [facility] [address] [id number] [address] [place] [address], [place] [address] Sep, [facility] [address] [id number] [address] [place] [address], [place] [address] Sep, [facility] [address] [id number] [address] [place] [address], [place] [address] Sep, [facility] [address] [id number] [address] [place] [address], [place] [address] Aug, [facility] [address] [id number] [address] [place] [address], [place] [address] Aug, [facility] [address] [id number] [address] [place] [address], [place] [address] Aug, [facility] [address] [id number] [address] [address], [place] [address] Aug, [facility] [address] [id number] [address] [address], [place] [address] 18 Aug, 2012 [facility] [address] [id number] [address] [place] [address], [place] [address] 05 Aug, 2012 [facility] [address] [id number] [address] [place] [address], [place] [address] Jul, [facility] [address] [id number] [address] [place] [address], [place] [address] Jul, [facility] [address] [id number] [address] [place] [address], [place] [address] Jul, [facility] [address] [id number] [address] [place] [address], [place] [address] Jul, [facility] [address] [id number] [address] [place] [address], [place] [address] Jul, [facility] [address] [id number] [address] [place] [address], [place] [address] Jul, [facility] [address] [id number] [address] [place] [address], [place] [address] Jun, [facility] [address] [id number] [address] [place] [address], [place] [address] Jun, [facility] [address] [id number] [address] [place] [address], [place] [address] Jun, [facility] [address] [id number] [address] [place] [address], [place] [address] Jun, [facility] [address] [id number] [address] [place] [address], [place] [address] Jun, [facility] [address] [id number] [address] [place] [address], [place] [address] Jun, [facility] [address] [id number] [address] [place] [address], [place] [address] May, [facility] [address] [id number] [address] [place] [address], [place] [address] May, [facility] [address] [id number] [address] [place] [address], [place] [address] May, [facility] [address] [id number] [address] [place] [address], [place] [address] May, [facility] [address] [id number] [address] [place] [address] May, [facility] [address] [id number] [address] [place] [address], [place] [address] May, [facility] [address] [id number] [address] [place] [address] May, [facility] [address] [id number] [address] [place] [address], [place] [address] May, [facility] [address] [id number] [address] [place] [address], [place] [address] May, [facility] [address] [id number] [address] [place] [address], [place] [address] May, [facility] [address] [id number] [address] [place] [address], [place] [address] Apr, [facility] [address] [id number] [address] [place] [address] 31 Apr, 2012 [facility] [address] [id number] [address] [place] [address], [place] [address] Apr, [facility] [address] [id number] [address] [place] [address], [place] [address] 23 Apr, 2012 [facility] [address] [id number] [address] [place] [address] 16 Apr, 2012 [facility] [address] [id number] [address] [place] [address] 16 Apr, 2012 [facility] [address] [id number] [address] [place] [address] 15 Apr, 2012 [facility] [address] [id number] [address] [place] [id number] 15 Apr, 2012 [facility] [address] [id number] [address] [place] [address] Apr, [facility] [address] [id number] [address] [place] [id number] 28 Mar, 2012 [facility] [address] [id number] [facility] [address] 26 Mar, 2012 [facility] [address] [id number] [address] [address], [place] [address] 25 Mar, 2012 [facility] [address] [id number] [address] [place] [address], [place] [address] 19 Mar, 2012 [facility] [address] [id number] [address] [place] [address], [place] [address] 18 Mar, 2012 [facility] [address] [id number] [address] [place] [address], [place] [address] 05 Mar, 2012 [facility] [address] [id number] [address] [place] [address], [place] [address] Feb, [facility] [address] [id number] [address] [address], [place] [address] Feb, [facility] [address] [id number] [address] [address], [place] [address] Feb, [facility] [address] [id number] [address] [address], [place] [address] Jan, [facility] [address] [id number] [address] [place] [address], [place] [address] Jan, [facility] [address] [id number] [address] [place] [address], [place] [address] Jan, [facility] [address] [id number] [address] [place] [address], [place] [address] Jan, [facility] [address] [id number] [address] [address], [place] [address] Dec, [facility] [address] [id number] [address] [place] [address], [place] [address] November, [facility] [address] [id number] [address] [address], [place] [address] November, [facility] [address] [id number] [address] [place] [address], [place] [address] November, [facility] [address] [id number] [address] [address], [place] [address] November, [facility] [address] [id number] [address] [place] [address], [place] [address] November, [facility] [address] [id number] [address] [place] [address], [place] [address] November, [facility] [address] [id number] [address] [place] [address], [place] [address] Oct, [facility] [address] [id number] [address] [place] [address], [place] [address] Oct, [facility] [address] [id number] [address] [place] [address], [place] [address] Sep, [facility] [address] [id number] [address] [place] [address], [place] [address] Sep, [facility] [address] [id number] [address] [place] [address], [place] [address] Sep, [facility] [address] [id number] [address] [place] [address], [place] [address] Aug, [facility] [address] [id number] [address] [place] [address], [place] [address] Aug, [facility] [address] [id number] [address] [place] [address], [place] [address] Aug, [facility] [address] [id number] [address] [place] [address], [place] [address] Aug, [facility] [address] [id number] [address] [place] [address], [place] [address] Aug, [facility] [address] [id number] [address] [place] [address], [place] [address] Aug, [facility] [address] [id number] [address] [place] [address], [place] [address] Jul, [facility] [address] [id number] [address] [place] [address], [place] [address] Jul, [facility] [address] [id number] [address] [place] [address], [place] [address] Jul, [facility] [address] [id number] [address] [place] [address], [place] [address] Jul, [facility] [address] [id number] [address] [place] [address], [place] [address] Jul, [facility] [address] [id number] [address] [address], [place] [address] Jul, [facility] [address] [id number] [address] [address], [place] [address] Jul, [facility] [address] [id number] [address] [place] [address], [place] [address] Jul, [facility] [address] [id number] [address] [place] [address], [place] [address] Jul, [facility] [address] [id number] [address] [place] [address], [place] [address] Jul, [facility] [address] [id number] [address] [address], [place] [address] Jun, [facility] [address] [id number] [address] [address], [place] [address] Jun, [facility] [address] [id number] [address] [address], [place] [address] Jun, [facility] [address] [id number] [address] [place] [address], [place] [address] Jun, [facility] [address] [id number] [address] [address], [place] [address] May, [facility] [address] [id number] [address] [place] [address], [place] [address] May, [facility] [address] [id number] [address] [place] [address], [place] [address] May, [facility] [address] [id number] [address] [place] [address], [place] [address] 08 May, 2011 [facility] [address] [id number] [address] [place] [address], [place] [address] 31 Apr, 2011 [facility] [address] [id number] [address] [place] [address], [place] [address] 31 Apr, 2011 [facility] [address] [id number] [address] [place] [address], [place] [address] 10 Nov, 2010 [facility] [address] [id number] [address] [place] [address], [place] [address] 18 Oct, 2010 [facility] [address] [id number] [address] [place] [address], [place] [address] 17 Aug, 2010 [facility] [address] [id number] [address] [place] [address], [place] [address] 28 Jun, 2010 [facility] [address] [id number] [address] [place] [address], [place] [address] 28 Jun, 2010 [facility] [address] [id number] [address] [place] [address], [place] [address] 27 Jun, 2010 [facility] [address] [id number] [address] [place] [address], [place] [address] 03 Jun, 2010 [facility] [address] [id number] [address] [place] [address], [place] [address] 29 May, 2010 [facility] [address] [id number] [address] [place] [address], [place] [address] 27 Apr, 2010 [facility] [address] [id number] [address] [place] [address], [place] [address] 13 Oct, 2009 [facility] [address] [id number] [address] [place] [address], [place] [address] 13 Aug, 2009 [facility] [address] [id number] [address] [place] [address], [place] [address] Jul, [facility] [address] [id number] [address] [place] [id number] 22 Jun, 2009 [facility] [place] [address] [id number] [address] [place] [id number] 16 Jun, 2009 [facility] [place] [address] [id number] [address] [place] [id number] 14 Jun, 2009 [facility] [place] [address] [facility] [id number] [address] [place] [id number] 14 Jun, 2009 [facility] [place] [address] [facility] [id number] [address] [place] [id number] May, [facility] [place] [address] [facility] [id number] [address] [place] [id number] Apr, [facility] [place] [address] [facility] [id number] [address] [place] [id number] 15 Mar, 2009 [facility] [place] [address] [facility] [id number] [address] [place] [id number] 14 Mar, 2009 [facility] [place] [address] [facility] [id number] [address] [place] [id number] 11 Dec, 2008 IMMUNIZATIONS No Known Immunizations [...]
--- OUTSIDE RECORDS SUMMARY | 2019-09-01 05:14 | XMS REPORT ---
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 [address], [place] [address] Jun, [facility] [address] [id number] [address] [place] [address], [place] [address] Jun, [facility] [address] [id number] [address] [place] [address], [place] [address] Jun, [facility] [address] [id number] [address] [place] [address], [place] [address] Jun, [facility] [address] [id number] [address] [place] [address], [place] [address] Jun, [facility] [address] [id number] [address] [place] [address], [place] [address] Jun, [facility] [address] [id number] [address] [place] [address], [place] [address] Jun, [facility] [address] [id number] [address] [place] [address], [place] [address] Jun, [facility] [address] [id number] [address] [place] [address], [place] [address] Jun, [facility] [address] [id number] [address] [place] [address], [place] [address] Jun, [facility] [address] [id number] [address] [place] [address], [place] [address] Jun, [facility] [address] [id number] [address] [place] [address], [place] [address] May, [facility] [address] [id number] [address] [place] [address], [place] [address] May, [facility] [address] [id number] [address] [place] [address], [place] [address] May, [facility] [address] [id number] [address] [place] [address], [place] [address] May, [facility] [address] [id number] [address] [place] [address], [place] [address] Apr, [facility] [address] [id number] [address] [place] [address], [place] [address] Apr, [facility] [address] [id number] [address] [place] [address], [place] [address] Apr, [facility] [address] [id number] [address] [place] [address], [place] [address] Apr, [facility] [address] [id number] [address] [place] [address], [place] [address] Apr, [facility] [address] [id number] [address] [place] [address], [place] [address] Apr, [facility] [address] [id number] [address] [place] [address], [place] [address] Apr, [facility] [address] [id number] [address] [place] [address], [place] [address] Apr, [facility] [address] [id number] [address] [place] [address], [place] [address] Apr, [facility] [address] [id number] [address] [place] [address], [place] [address] Apr, [facility] [address] [id number] [address] [place] [address], [place] [address] 29 Mar, 2013 [facility] [address] [id number] [address] [place] [address], [place] [address] 29 Mar, 2013 [facility] [address] [id number] [address] [place] [address], [place] [address] 29 Mar, 2013 [facility] [address] [id number] [address] [place] [address], [place] [address] 29 Mar, 2013 [facility] [address] [id number] [address] [place] [address], [place] [address] 10 Mar, 2013 [facility] [address] [id number] [address] [place] [address], [place] [address] 10 Mar, 2013 [facility] [address] [id number] [address] [place] [address], [place] [address] Mar, 2013 [facility] [address] [id number] [address] [place] [address], [place] [address] Mar, 2013 [facility] [address] [id number] [address] [place] [address], [place] [address] Mar, 2013 [facility] [address] [id number] [address] [place] [address], [place] [address] Mar, 2013 [facility] [address] [id number] [address] [place] [address], [place] [address] Mar, 2013 [facility] [address] [id number] [address] [place] [address], [place] [address] Mar, 2013 [facility] [address] [id number] [address] [place] [address], [place] [address] Feb, [facility] [address] [id number] [address] [place] [address], [place] [address] Feb, [facility] [address] [id number] [address] [place] [address], [place] [address] Jan, [facility] [address] [id number] [address] [place] [address], [place] [address] Jan, [facility] [address] [id number] [address] [place] [address], [place] [address] Jan, [facility] [address] [id number] [address] [place] [address], [place] [address] Jan, [facility] [address] [id number] [address] [place] [address], [place] [address] Dec, [facility] [address] [id number] [address] [place] [address], [place] [address] Dec, [facility] [address] [id number] [address] [place] [address], [place] [address] Dec, [facility] [address] [id number] [address] [place] [address], [place] [address] Dec, [facility] [address] [id number] [address] [place] [address], [place] [address] Dec, [facility] [address] [id number] [address] [place] [address], [place] [address] Dec, [facility] [address] [id number] [address] [place] [address], [place] [address] November, [facility] [address] [id number] [address] [place] [address], [place] [address] November, [facility] [address] [id number] [address] [place] [address], [place] [address] November, [facility] [address] [id number] [address] [place] [address], [place] [address] November, [facility] [address] [id number] [address] [place] [address], [place] [address] November, [facility] [address] [id number] [address] [place] [address], [place] [address] November, [facility] [address] [place] [id number] November, [facility] [address] [id number] [address] [place] [address], [place] [address] November, [facility] [address] [id number] [address] [place] [address], [place] [address] November, [facility] [address] [id number] [address] [place] [address], [place] [address] November, [facility] [address] [id number] [address] [place] [address], [place] [address] November, [facility] [address] [id number] [address] [place] [address], [place] [address] November, [facility] [address] [id number] [address] [place] [address], [place] [address] Oct, [facility] [address] [id number] [facility] [place] [address] Oct, [facility] [address] [id number] [address] [place] [address], [place] [address] Oct, [facility] [address] [id number] [address] [place] [address], [place] [address] Oct, [facility] [address] [id number] [address] [place] [address], [place] [address] Oct, [facility] [address] [id number] [address] [place] [address], [place] [address] Oct, [facility] [address] [id number] [address] [place] [address], [place] [address] Oct, [facility] [address] [id number] [address] [place] [address], [place] [address] Oct, [facility] [address] [id number] [address] [place] [address], [place] [address] Oct, [facility] [address] [id number] [address] [place] [address], [place] [address] Oct, [facility] [address] [id number] [address] [place] [address], [place] [address] Oct, [facility] [address] [id number] [address] [place] [address], [place] [address] Oct, [facility] [address] [id number] [address] [place] [address], [place] [address] Oct, [facility] [address] [id number] [address] [place] [address], [place] [address] Oct, [facility] [address] [id number] [address] [place] [address], [place] [address] Oct, [facility] [address] [id number] [address] [place] [address], [place] [address] Sep, [facility] [address] [id number] [facility] [place] [address] Sep, [facility] [address] [id number] [facility] [place] [address] Sep, [facility] [address] [id number] [facility] [place] [address] Sep, [facility] [address] [id number] [facility] [place] [address] Aug, [facility] [address] [id number] [address] [place] [address], [place] [address] Aug, [facility] [address] [id number] [address] [place] [address], [place] [address] Aug, [facility] [address] [id number] [address] [place] [address], [place] [address] Aug, [facility] [address] [id number] [address] [place] [address], [place] [address] Jul, [facility] [address] [id number] [address] [place] [address], [place] [address] Jul, [facility] [address] [id number] [address] [place] [address], [place] [address] Jul, [facility] [address] [id number] [address] [place] [address], [place] [address] Jul, [facility] [address] [id number] [address] [place] [address], [place] [address] Jul, [facility] [address] [id number] [address] [place] [address], [place] [address] Jul, [facility] [address] [id number] [address] [place] [address], [place] [address] Jul, [facility] [address] [id number] [address] [place] [address], [place] [address] Jul, [facility] [address] [id number] [address] [place] [address], [place] [address] 14 Jul, 2013 [facility] [address] [id number] [address] [place] [address], [place] [address] Jul, [facility] [address] [id number] [address] [place] [address], [place] [address] Jul, [facility] [address] [id number] [address] [place] [address], [place] [address] Jul, [facility] [address] [id number] [address] [place] [address], [place] [address] Jul, [facility] [address] [id number] [address] [place] [address], [place] [address] Jul, [facility] [address] [id number] [address] [place] [address], [place] [address] Jun, [facility] [address] [id number] [address] [place] [address], [place] [address] Jun, [facility] [address] [id number] [address] [place] [address], [place] [address] Jun, [facility] [address] [id number] [address] [place] [address], [place] [address] Jun, [facility] [address] [id number] [address] [place] [address], [place] [address] May, [facility] [address] [id number] [address] [place] [address], [place] [address] May, [facility] [address] [id number] [address] [place] [address], [place] [address] May, [facility] [address] [id number] [address] [place] [address], [place] [address] May, [facility] [address] [id number] [address] [place] [address], [place] [address] May, [facility] [address] [id number] [address] [place] [address], [place] [address] May, [facility] [address] [id number] [address] [place] [address], [place] [address] 05 May, 2013 [facility] [address] [id number] [address] [place] [address], [place] [address] May, [facility] [address] [id number] [address] [place] [address], [place] [address] Apr, [facility] [address] [id number] [address] [place] [address], [place] [address] Apr, [facility] [address] [id number] [address] [place] [address], [place] [address] Apr, [facility] [address] [id number] [address] [place] [address], [place] [address] Apr, [facility] [address] [id number] [address] [place] [address], [place] [address] Apr, [facility] [address] [id number] [address] [place] [address], [place] [address] Apr, [facility] [address] [id number] [address] [place] [address], [place] [address] 30 Mar, 2013 [facility] [address] [id number] [address] [place] [address], [place] [address] 26 Mar, 2013 [facility] [address] [id number] [address] [place] [address], [place] [address] 20 Mar, 2013 [facility] [address] [id number] [address] [place] [address], [place] [address] 17 Mar, 2013 [facility] [address] [id number] [address] [place] [address], [place] [address] 16 Mar, 2013 [facility] [address] [id number] [address] [place] [address], [place] [address] 05 Mar, 2013 [facility] [address] [id number] [address] [place] [address], [place] [address] Feb, [facility] [address] [id number] [address] [place] [address], [place] [address] Feb, [facility] [address] [id number] [address] [place] [address], [place] [address] Feb, [facility] [address] [id number] [address] [place] [address], [place] [address] Feb, [facility] [address] [id number] [address] [place] [address], [place] [address] Jan, [facility] [address] [id number] [address] [place] [address], [place] [address] Jan, [facility] [address] [id number] [address] [place] [address], [place] [address] Jan, [facility] [address] [id number] [address] [place] [address], [place] [address] Jan, [facility] [address] [id number] [address] [place] [address], [place] [address] Jan, [facility] [address] [id number] [address] [place] [address], [place] [address] Dec, [facility] [address] [id number] [address] [place] [address], [place] [address] Dec, [facility] [address] [id number] [address] [place] [address], [place] [address] Dec, [facility] [address] [id number] [address] [place] [address], [place] [address] November, [facility] [address] [id number] [address] [place] [address], [place] [address] November, [facility] [address] [id number] [address] [place] [address], [place] [address] November, [facility] [address] [id number] [address] [place] [address], [place] [address] Oct, [facility] [address] [id number] [address] [place] [address], [place] [address] Oct, [facility] [address] [id number] [address] [place] [address], [place] [address] 26 Oct, 2012 [facility] [address] [id number] [address] [place] [address], [place] [address] 25 Oct, 2012 [facility] [address] [id number] [address] [place] [address], [place] [address] 18 Oct, 2012 [facility] [address] [id number] [address] [place] [address], [place] [id number] 17 Oct, 2012 [facility] [address] [id number] [address] [place] [address], [place] [address] 15 Oct, 2012 [facility] [address] [id number] [address] [place] [address], [place] [address] 26 Sep, 2012 [facility] [address] [id number] [address] [place] [address], [place] [address] Sep, [facility] [address] [id number] [address] [place] [address], [place] [address] Sep, [facility] [address] [id number] [address] [place] [address], [place] [address] Sep, [facility] [address] [id number] [address] [place] [address], [place] [address] Aug, [facility] [address] [id number] [address] [place] [address], [place] [address] Aug, [facility] [address] [id number] [address] [place] [address], [place] [address] Aug, [facility] [address] [id number] [address] [place] [address], [place] [address] Aug, [facility] [address] [id number] [address] [place] [address], [place] [address] Aug, [facility] [address] [id number] [address] [place] [address], [place] [address] 05 Aug, 2012 [facility] [address] [id number] [address] [place] [address], [place] [address] Jul, [facility] [address] [id number] [address] [place] [address], [place] [address] 31 Jul, 2012 [facility] [address] [id number] [address] [place] [address], [place] [address] Jul, [facility] [address] [id number] [address] [place] [address], [place] [address] Jul, [facility] [address] [id number] [address] [place] [address], [place] [address] Jul, [facility] [address] [id number] [address] [place] [address], [place] [address] Jul, [facility] [address] [id number] [address] [place] [address], [place] [address] Jun, [facility] [address] [id number] [address] [place] [address], [place] [address] Jun, [facility] [address] [id number] [address] [place] [address], [place] [address] Jun, [facility] [address] [id number] [address] [place] [address], [place] [address] Jun, [facility] [address] [id number] [address] [place] [address], [place] [address] Jun, [facility] [address] [id number] [address] [place] [address], [place] [address] Jun, [facility] [address] [id number] [address] [place] [address], [place] [address] May, [facility] [address] [id number] [address] [place] [address], [place] [address] May, [facility] [address] [id number] [address] [place] [address], [place] [address] May, [facility] [address] [id number] [address] [place] [address], [place] [address] May, [facility] [address] [id number] [address] [place] [phone] May, [facility] [address] [id number] [address] [place] [address], [place] [address] May, [facility] [address] [id number] [address] [place] [phone] May, [facility] [address] [id number] [address] [place] [address], [place] [address] May, [facility] [address] [id number] [address] [place] [phone] May, [facility] [address] [id number] [address] [place] [address], [place] [address] May, [facility] [address] [id number] [address] [place] [address], [place] [address] Apr, [facility] [address] [id number] [address] [place] [phone] Apr, [facility] [address] [id number] [address] [place] [address], [place] [address] Apr, [facility] [address] [id number] [address] [place] [phone] Apr, [facility] [address] [id number] [address] [place] [phone] 16 Apr, 2012 [facility] [address] [id number] [address] [place] [phone] 16 Apr, 2012 [facility] [address] [id number] [address] [place] [phone] 15 Apr, 2012 [facility] [address] [id number] [address] [place] [phone] 15 Apr, 2012 [facility] [address] [id number] [address] [place] [phone] Apr, [facility] [address] [id number] [address] [place] [address], [place] [address] 28 Mar, 2012 [facility] [address] [id number] [address] [place] [address], [place] [address] 26 Mar, 2012 [facility] [address] [id number] [address] [place] [address], [place] [address] 25 Mar, 2012 [facility] [address] [id number] [address] [place] [address], [place] [address] Mar, [facility] [address] [id number] [address] [place] [address], [place] [address] 18 Mar, 2012 [facility] [address] [id number] [address] [place] [address], [place] [address] 05 Mar, 2012 [facility] [address] [id number] [address] [place] [address], [place] [address] Feb, [facility] [address] [id number] [address] [place] [address], [place] [address] Feb, [facility] [address] [id number] [address] [place] [address], [place] [address] Feb, [facility] [address] [id number] [address] [place] [address], [place] [address] Jan, [facility] [address] [id number] [address] [place] [address], [place] [address] Jan, [facility] [address] [id number] [address] [place] [address], [place] [address] Jan, [facility] [address] [id number] [address] [place] [address], [place] [address] Jan, [facility] [address] [id number] [address] [place] [address], [place] [address] Dec, [facility] [address] [id number] [address] [place] [address], [place] [address] November, [facility] [address] [id number] [address] [place] [address], [place] [address] November, [facility] [address] [id number] [address] [place] [address], [place] [address] November, [facility] [address] [id number] [address] [place] [address], [place] [address] November, [facility] [address] [id number] [address] [place] [address], [place] [address] November, [facility] [address] [id number] [address] [place] [address], [place] [address] November, [facility] [address] [id number] [address] [place] [address], [place] [address] Oct, [facility] [address] [id number] [address] [place] [address], [place] [address] Oct, [facility] [address] [id number] [address] [place] [address], [place] [address] Sep, [facility] [address] [id number] [address] [place] [address], [place] [address] Sep, [facility] [address] [id number] [address] [place] [address], [place] [address] Sep, [facility] [address] [id number] [address] [place] [address], [place] [address] Aug, [facility] [address] [id number] [address] [place] [address], [place] [address] Aug, [facility] [address] [id number] [address] [place] [address], [place] [address] Aug, [facility] [address] [id number] [address] [place] [address], [place] [address] Aug, [facility] [address] [id number] [address] [place] [address], [place] [address] Aug, [facility] [address] [id number] [address] [place] [address], [place] [address] Aug, [facility] [address] [id number] [address] [place] [address], [place] [address] Jul, [facility] [address] [id number] [address] [place] [address], [place] [address] 24 Jul, 2011 [facility] [address] [id number] [address] [place] [address], [place] [address] Jul, [facility] [address] [id number] [address] [place] [address], [place] [address] Jul, [facility] [address] [id number] [address] [place] [address], [place] [address] Jul, [facility] [address] [id number] [address] [place] [address], [place] [address] Jul, [facility] [address] [id number] [address] [place] [address], [place] [address] Jul, [facility] [address] [id number] [address] [place] [address], [place] [address] Jul, [facility] [address] [id number] [address] [place] [address], [place] [address] Jul, [facility] [address] [id number] [address] [place] [address], [place] [address] Jul, [facility] [address] [id number] [address] [place] [address], [place] [address] Jun, [facility] [address] [id number] [address] [place] [address], [place] [address] Jun, [facility] [address] [id number] [address] [place] [address], [place] [address] Jun, [facility] [address] [id number] [address] [place] [address], [place] [address] Jun, [facility] [address] [id number] [address] [place] [address], [place] [address] 30 May, 2011 [facility] [address] [id number] [address] [place] [address], [place] [address] 29 May, 2011 [facility] [address] [id number] [address] [place] [address], [place] [address] May, [facility] [address] [id number] [address] [place] [address], [place] [address] 08 May, 2011 [facility] [address] [id number] [address] [place] [address], [place] [address] 31 Apr, 2011 [facility] [address] [id number] [address] [place] [address], [place] [address] 31 Apr, 2011 [facility] [address] [id number] [address] [place] [address], [place] [address] November, [facility] [address] [id number] [address] [place] [address], [place] [address] 18 Oct, 2010 [facility] [address] [id number] [address] [place] [address], [place] [address] 17 Aug, 2010 [facility] [address] [id number] [address] [place] [address], [place] [address] 28 Jun, 2010 [facility] [address] [id number] [address] [place] [address], [place] [address] 28 Jun, 2010 [facility] [address] [id number] [address] [place] [address], [place] [address] 27 Jun, 2010 [facility] [address] [id number] [address] [place] [address], [place] [address] 03 Jun, 2010 [facility] [address] [id number] [address] [place] [address], [place] [address] 29 May, 2010 [facility] [address] [id number] [address] [place] [address], [place] [address] 27 Apr, 2010 [facility] [address] [id number] [address] [place] [address], [place] [address] 13 Oct, 2009 [facility] [address] [id number] [address] [place] [address], [place] [address] 13 Aug, 2009 [facility] [address] [id number] [address] [place] [address], [place] [address] Jul, [facility] [address] [id number] [address] [place] [phone] 22 Jun, 2009 [facility] [address] [facility] [id number] [address] [place] [id number] 16 Jun, 2009 [facility] [address] [facility] [id number] [address] [place] [id number] 14 Jun, 2009 [facility] [address] [facility] [id number] [address] [place] [id number] 14 Jun, 2009 [facility] [address] [facility] [id number] [address] [place] [phone] May, [facility] [address] [facility] [id number] [address] [place] [id number] 20 Apr, 2009 [facility] [address] [facility] [id number] [address] [place] [phone] 15 Mar, 2009 [facility] [address] [facility] [id number] [address] [place] [id number] 14 Mar, 2009 [facility] [address] [facility] [id number] [address] [place] [id number] 11 Dec, 2008 IMMUNIZATIONS No Known Immunizations [...]
--- OUTSIDE RECORDS SUMMARY | 2019-09-01 05:14 | XMS REPORT ---
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 [address], [place] [address] Jun, [facility] [address] [id number] [address] [place] [address], [place] [address] Jun, [facility] [address] [id number] [address] [place] [address], [place] [address] Jun, [facility] [address] [id number] [address] [place] [address], [place] [address] Jun, [facility] [address] [id number] [address] [place] [address], [place] [address] Jun, [facility] [address] [id number] [address] [place] [address], [place] [address] Jun, [facility] [address] [id number] [address] [place] [address], [place] [address] Jun, [facility] [address] [id number] [address] [place] [address], [place] [address] Jun, [facility] [address] [id number] [address] [place] [address], [place] [address] Jun, [facility] [address] [id number] [address] [place] [address], [place] [address] Jun, [facility] [address] [id number] [address] [place] [address], [place] [address] Jun, [facility] [address] [id number] [address] [place] [address], [place] [address] May, [facility] [address] [id number] [address] [place] [address], [place] [address] May, [facility] [address] [id number] [address] [place] [address], [place] [address] May, [facility] [address] [id number] [address] [place] [address], [place] [address] May, [facility] [address] [id number] [address] [place] [address], [place] [address] Apr, [facility] [address] [id number] [address] [place] [address], [place] [address] Apr, [facility] [address] [id number] [address] [place] [address], [place] [address] Apr, [facility] [address] [id number] [address] [place] [address], [place] [address] Apr, [facility] [address] [id number] [address] [place] [address], [place] [address] Apr, [facility] [address] [id number] [address] [place] [address], [place] [address] Apr, [facility] [address] [id number] [address] [place] [address], [place] [address] Apr, [facility] [address] [id number] [address] [place] [address], [place] [address] Apr, [facility] [address] [id number] [address] [place] [address], [place] [address] Apr, [facility] [address] [id number] [address] [place] [address], [place] [address] Apr, [facility] [address] [id number] [address] [place] [address], [place] [address] 29 Mar, 2013 [facility] [address] [id number] [address] [place] [address], [place] [address] 29 Mar, 2013 [facility] [address] [id number] [address] [place] [address], [place] [address] 29 Mar, 2013 [facility] [address] [id number] [address] [place] [address], [place] [address] 29 Mar, 2013 [facility] [address] [id number] [address] [place] [address], [place] [address] 10 Mar, 2013 [facility] [address] [id number] [address] [place] [address], [place] [address] 10 Mar, 2013 [facility] [address] [id number] [address] [place] [address], [place] [address] Mar, 2013 [facility] [address] [id number] [address] [place] [address], [place] [address] Mar, 2013 [facility] [address] [id number] [address] [place] [address], [place] [address] Mar, 2013 [facility] [address] [id number] [address] [place] [address], [place] [address] Mar, 2013 [facility] [address] [id number] [address] [place] [address], [place] [address] Mar, 2013 [facility] [address] [id number] [address] [place] [address], [place] [address] Mar, 2013 [facility] [address] [id number] [address] [place] [address], [place] [address] Feb, [facility] [address] [id number] [address] [place] [address], [place] [address] Feb, [facility] [address] [id number] [address] [place] [address], [place] [address] Jan, [facility] [address] [id number] [address] [place] [address], [place] [address] Jan, [facility] [address] [id number] [address] [place] [address], [place] [address] Jan, [facility] [address] [id number] [address] [place] [address], [place] [address] Jan, [facility] [address] [id number] [address] [place] [address], [place] [address] Dec, [facility] [address] [id number] [address] [place] [address], [place] [address] Dec, [facility] [address] [id number] [address] [place] [address], [place] [address] Dec, [facility] [address] [id number] [address] [place] [address], [place] [address] Dec, [facility] [address] [id number] [address] [place] [address], [place] [address] Dec, [facility] [address] [id number] [address] [place] [address], [place] [address] Dec, [facility] [address] [id number] [address] [place] [address], [place] [address] November, [facility] [address] [id number] [address] [place] [address], [place] [address] November, [facility] [address] [id number] [address] [place] [address], [place] [address] November, [facility] [address] [id number] [address] [place] [address], [place] [address] November, [facility] [address] [id number] [address] [place] [address], [place] [address] November, [facility] [address] [id number] [address] [place] [address], [place] [address] November, [facility] [address] [place] [id number] November, [facility] [address] [id number] [address] [place] [address], [place] [address] November, [facility] [address] [id number] [address] [place] [address], [place] [address] November, [facility] [address] [id number] [address] [place] [address], [place] [address] November, [facility] [address] [id number] [address] [place] [address], [place] [address] November, [facility] [address] [id number] [address] [place] [address], [place] [address] November, [facility] [address] [id number] [address] [place] [address], [place] [address] Oct, [facility] [address] [id number] [facility] [place] [address] Oct, [facility] [address] [id number] [address] [place] [address], [place] [address] Oct, [facility] [address] [id number] [address] [place] [address], [place] [address] Oct, [facility] [address] [id number] [address] [place] [address], [place] [address] Oct, [facility] [address] [id number] [address] [place] [address], [place] [address] Oct, [facility] [address] [id number] [address] [place] [address], [place] [address] Oct, [facility] [address] [id number] [address] [place] [address], [place] [address] Oct, [facility] [address] [id number] [address] [place] [address], [place] [address] Oct, [facility] [address] [id number] [address] [place] [address], [place] [id number] Oct, [facility] [address] [id number] [address] [place] [address], [place] [address] Oct, [facility] [address] [id number] [address] [place] [address], [place] [address] Oct, [facility] [address] [id number] [address] [place] [address], [place] [address] Oct, [facility] [address] [id number] [address] [place] [address], [place] [address] Oct, [facility] [address] [id number] [address] [place] [address], [place] [address] Oct, [facility] [address] [id number] [address] [place] [address], [place] [address] Sep, [facility] [address] [id number] [facility] [place] [address] Sep, [facility] [address] [id number] [facility] [place] [address] Sep, [facility] [address] [id number] [facility] [place] [address] Sep, [facility] [address] [id number] [facility] [place] [address] Aug, [facility] [address] [id number] [address] [place] [address], [place] [id number] Aug, [facility] [address] [id number] [address] [place] [address], [place] [address] Aug, [facility] [address] [id number] [address] [place] [address], [place] [address] Aug, [facility] [address] [id number] [address] [place] [address], [place] [address] Jul, [facility] [address] [id number] [address] [place] [address], [place] [address] Jul, [facility] [address] [id number] [address] [place] [address], [place] [address] Jul, [facility] [address] [id number] [address] [place] [address], [place] [id number] Jul, [facility] [address] [id number] [address] [place] [address], [place] [id number] Jul, [facility] [address] [id number] [address] [place] [address], [place] [address] Jul, [facility] [address] [id number] [address] [place] [address], [place] [address] Jul, [facility] [address] [id number] [address] [place] [address], [place] [address] Jul, [facility] [address] [id number] [address] [place] [address], [place] [id number] 14 Jul, 2013 [facility] [address] [id number] [address] [place] [address], [place] [address] Jul, [facility] [address] [id number] [address] [place] [address], [place] [address] Jul, [facility] [address] [id number] [address] [place] [address], [place] [address] Jul, [facility] [address] [id number] [address] [place] [address], [place] [id number] Jul, [facility] [address] [id number] [address] [place] [address], [place] [id number] Jul, [facility] [address] [id number] [address] [place] [address], [place] [id number] Jun, [facility] [address] [id number] [address] [place] [address], [place] [id number] Jun, [facility] [address] [id number] [address] [place] [address], [place] [id number] Jun, [facility] [address] [id number] [address] [place] [address], [place] [address] Jun, [facility] [address] [id number] [address] [place] [address], [place] [id number] May, [facility] [address] [id number] [address] [place] [address], [place] [address] May, [facility] [address] [id number] [address] [place] [address], [place] [address] May, [facility] [address] [id number] [address] [place] [address], [place] [address] May, [facility] [address] [id number] [address] [place] [address], [place] [id number] May, [facility] [address] [id number] [address] [place] [address], [place] [address] May, [facility] [address] [id number] [address] [place] [address], [place] [id number] 05 May, 2013 [facility] [address] [id number] [address] [place] [address], [place] [address] May, [facility] [address] [id number] [address] [place] [address], [place] [address] Apr, [facility] [address] [id number] [address] [place] [address], [place] [address] Apr, [facility] [address] [id number] [address] [place] [address], [place] [address] Apr, [facility] [address] [id number] [address] [place] [address], [place] [address] Apr, [facility] [address] [id number] [address] [place] [address], [place] [address] Apr, [facility] [address] [id number] [address] [place] [address], [place] [address] Apr, [facility] [address] [id number] [address] [place] [address], [place] [address] 30 Mar, 2013 [facility] [address] [id number] [address] [place] [address], [place] [address] 26 Mar, 2013 [facility] [address] [id number] [address] [place] [address], [place] [address] 20 Mar, 2013 [facility] [address] [id number] [address] [place] [address], [place] [address] 17 Mar, 2013 [facility] [address] [id number] [address] [place] [address], [place] [address] 16 Mar, 2013 [facility] [address] [id number] [address] [place] [address], [place] [id number] 05 Mar, 2013 [facility] [address] [id number] [address] [place] [address], [place] [address] Feb, [facility] [address] [id number] [address] [place] [address], [place] [address] Feb, [facility] [address] [id number] [address] [place] [address], [place] [address] Feb, [facility] [address] [id number] [address] [place] [address], [place] [address] Feb, [facility] [address] [id number] [address] [place] [address], [place] [address] Jan, [facility] [address] [id number] [address] [place] [address], [place] [id number] Jan, [facility] [address] [id number] [address] [place] [address], [place] [address] Jan, [facility] [address] [id number] [address] [place] [address], [place] [address] Jan, [facility] [address] [id number] [address] [place] [address], [place] [address] Jan, [facility] [address] [id number] [address] [place] [address], [place] [address] Dec, [facility] [address] [id number] [address] [place] [address], [place] [address] Dec, [facility] [address] [id number] [address] [place] [address], [place] [address] Dec, [facility] [address] [id number] [address] [place] [address], [place] [address] November, [facility] [address] [id number] [address] [place] [address], [place] [address] November, [facility] [address] [id number] [address] [place] [address], [place] [address] November, [facility] [address] [id number] [address] [place] [address], [place] [address] Oct, [facility] [address] [id number] [address] [place] [address], [place] [address] Oct, [facility] [address] [id number] [address] [place] [address], [place] [address] 26 Oct, 2012 [facility] [address] [id number] [address] [place] [address], [place] [address] 25 Oct, 2012 [facility] [address] [id number] [address] [place] [address], [place] [address] 18 Oct, 2012 [facility] [address] [id number] [address] [place] [address], [place] [address] 17 Oct, 2012 [facility] [address] [id number] [address] [place] [address], [place] [id number] 15 Oct, 2012 [facility] [address] [id number] [address] [place] [address], [place] [id number] 26 Sep, 2012 [facility] [address] [id number] [address] [place] [address], [place] [address] Sep, [facility] [address] [id number] [address] [place] [address], [place] [address] Sep, [facility] [address] [id number] [address] [place] [address], [place] [address] Sep, [facility] [address] [id number] [address] [place] [address], [place] [address] Aug, [facility] [address] [id number] [address] [place] [address], [place] [address] Aug, [facility] [address] [id number] [address] [place] [address], [place] [address] Aug, [facility] [address] [id number] [address] [place] [address], [place] [address] Aug, [facility] [address] [id number] [address] [place] [address], [place] [address] Aug, [facility] [address] [id number] [address] [place] [address], [place] [address] 05 Aug, 2012 [facility] [address] [id number] [address] [place] [address], [place] [address] Jul, [facility] [address] [id number] [address] [place] [address], [place] [address] 31 Jul, 2012 [facility] [address] [id number] [address] [place] [address], [place] [address] Jul, [facility] [address] [id number] [address] [place] [address], [place] [address] Jul, [facility] [address] [id number] [address] [place] [address], [place] [address] Jul, [facility] [address] [id number] [address] [place] [address], [place] [address] Jul, [facility] [address] [id number] [address] [place] [address], [place] [address] Jun, [facility] [address] [id number] [address] [place] [address], [place] [address] Jun, [facility] [address] [id number] [address] [place] [address], [place] [address] Jun, [facility] [address] [id number] [address] [place] [address], [place] [address] Jun, [facility] [address] [id number] [address] [place] [address], [place] [address] Jun, [facility] [address] [id number] [address] [place] [address], [place] [address] Jun, [facility] [address] [id number] [address] [place] [address], [place] [address] May, [facility] [address] [id number] [address] [place] [address], [place] [address] May, [facility] [address] [id number] [address] [place] [address], [place] [address] May, [facility] [address] [id number] [address] [place] [address], [place] [address] May, [facility] [address] [id number] [address] [place] [id number] May, [facility] [address] [id number] [address] [place] [address], [place] [address] May, [facility] [address] [id number] [address] [place] [phone] May, [facility] [address] [id number] [address] [place] [address], [place] [address] May, [facility] [address] [id number] [address] [place] [id number] May, [facility] [address] [id number] [address] [place] [address], [place] [address] May, [facility] [address] [id number] [address] [place] [address], [place] [address] Apr, [facility] [address] [id number] [address] [place] [id number] Apr, [facility] [address] [id number] [address] [place] [address], [place] [address] Apr, [facility] [address] [id number] [address] [place] [id number] Apr, [facility] [address] [id number] [address] [place] [id number] 16 Apr, 2012 [facility] [address] [id number] [address] [place] [id number] 16 Apr, 2012 [facility] [address] [id number] [address] [place] [id number] 15 Apr, 2012 [facility] [address] [id number] [address] [place] [id number] 15 Apr, 2012 [facility] [address] [id number] [address] [place] [phone] Apr, [facility] [address] [id number] [address] [place] [address], [place] [id number] 28 Mar, 2012 [facility] [address] [id number] [address] [place] [address], [place] [address] 26 Mar, 2012 [facility] [address] [id number] [address] [place] [address], [place] [address] 25 Mar, 2012 [facility] [address] [id number] [address] [place] [address], [place] [address] Mar, [facility] [address] [id number] [address] [place] [address], [place] [address] 18 Mar, 2012 [facility] [address] [id number] [address] [place] [address], [place] [address] 05 Mar, 2012 [facility] [address] [id number] [address] [place] [address], [place] [address] Feb, [facility] [address] [id number] [address] [place] [address], [place] [address] Feb, [facility] [address] [id number] [address] [place] [address], [place] [address] Feb, [facility] [address] [id number] [address] [place] [address], [place] [address] Jan, [facility] [address] [id number] [address] [place] [address], [place] [address] Jan, [facility] [address] [id number] [address] [place] [address], [place] [id number] Jan, [facility] [address] [id number] [address] [place] [address], [place] [address] Jan, [facility] [address] [id number] [address] [place] [address], [place] [address] Dec, [facility] [address] [id number] [address] [place] [address], [place] [address] November, [facility] [address] [id number] [address] [place] [address], [place] [address] November, [facility] [address] [id number] [address] [place] [address], [place] [address] November, [facility] [address] [id number] [address] [place] [address], [place] [address] November, [facility] [address] [id number] [address] [place] [address], [place] [address] November, [facility] [address] [id number] [address] [place] [address], [place] [address] November, [facility] [address] [id number] [address] [place] [address], [place] [address] Oct, [facility] [address] [id number] [address] [place] [address], [place] [id number] Oct, [facility] [address] [id number] [address] [place] [address], [place] [address] Sep, [facility] [address] [id number] [address] [place] [address], [place] [address] Sep, [facility] [address] [id number] [address] [place] [address], [place] [address] Sep, [facility] [address] [id number] [address] [place] [address], [place] [address] Aug, [facility] [address] [id number] [address] [place] [address], [place] [id number] Aug, [facility] [address] [id number] [address] [place] [address], [place] [address] Aug, [facility] [address] [id number] [address] [place] [address], [place] [address] Aug, [facility] [address] [id number] [address] [place] [address], [place] [address] Aug, [facility] [address] [id number] [address] [place] [address], [place] [address] Aug, [facility] [address] [id number] [address] [place] [address], [place] [address] Jul, [facility] [address] [id number] [address] [place] [address], [place] [id number] 24 Jul, 2011 [facility] [address] [id number] [address] [place] [address], [place] [address] Jul, [facility] [address] [id number] [address] [place] [address], [place] [address] Jul, [facility] [address] [id number] [address] [place] [address], [place] [address] Jul, [facility] [address] [id number] [address] [place] [address], [place] [address] Jul, [facility] [address] [id number] [address] [place] [address], [place] [address] Jul, [facility] [address] [id number] [address] [place] [address], [place] [address] Jul, [facility] [address] [id number] [address] [place] [address], [place] [address] Jul, [facility] [address] [id number] [address] [place] [address], [place] [address] Jul, [facility] [address] [id number] [address] [place] [address], [place] [address] Jun, [facility] [address] [id number] [address] [place] [address], [place] [address] Jun, [facility] [address] [id number] [address] [place] [address], [place] [address] Jun, [facility] [address] [id number] [address] [place] [address], [place] [address] Jun, [facility] [address] [id number] [address] [place] [address], [place] [id number] 30 May, 2011 [facility] [address] [id number] [address] [place] [address], [place] [address] 29 May, 2011 [facility] [address] [id number] [address] [place] [address], [place] [address] May, [facility] [address] [id number] [address] [place] [address], [place] [id number] 08 May, 2011 [facility] [address] [id number] [address] [place] [address], [place] [address] 31 Apr, 2011 [facility] [address] [id number] [address] [place] [address], [place] [address] 31 Apr, 2011 [facility] [address] [id number] [address] [place] [address], [place] [address] November, [facility] [address] [id number] [address] [place] [address], [place] [address] 18 Oct, 2010 [facility] [address] [id number] [address] [place] [address], [place] [id number] 17 Aug, 2010 [facility] [address] [id number] [address] [place] [address], [place] [id number] 28 Jun, 2010 [facility] [address] [id number] [address] [place] [address], [place] [id number] 28 Jun, 2010 [facility] [address] [id number] [address] [place] [address], [place] [id number] 27 Jun, 2010 [facility] [address] [id number] [address] [place] [address], [place] [id number] 03 Jun, 2010 [facility] [address] [id number] [address] [place] [address], [place] [address] 29 May, 2010 [facility] [address] [id number] [address] [place] [address], [place] [address] 27 Apr, 2010 [facility] [address] [id number] [address] [place] [address], [place] [id number] 13 Oct, 2009 [facility] [address] [id number] [address] [place] [address], [place] [address] 13 Aug, 2009 [facility] [address] [id number] [address] [place] [address], [place] [address] Jul, [facility] [address] [id number] [address] [place] [id number] 22 Jun, 2009 [facility] [address] [facility] [id number] [address] [place] [id number] 16 Jun, 2009 [facility] [address] [facility] [id number] [address] [place] [id number] 14 Jun, 2009 [facility] [address] [facility] [id number] [address] [place] [id number] 14 Jun, 2009 [facility] [address] [facility] [id number] [address] [place] [id number] May, [facility] [address] [facility] [id number] [address] [place] [id number] 20 Apr, 2009 [facility] [address] [facility] [id number] [address] [place] [id number] 15 Mar, 2009 [facility] [address] [facility] [id number] [address] [place] [id number] 14 Mar, 2009 [facility] [address] [facility] [id number] [address] [place] [id number] 11 Dec, 2008 IMMUNIZATIONS No Known Immunizations [...]
--- OUTSIDE RECORDS SUMMARY | 2019-09-01 05:15 | XMS REPORT ---
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 [address] [id number] [address] [place] [address], [place] [address] Jun, [facility] [address] [id number] [address] [place] [address], [place] [address] Jun, [facility] [address] [id number] [address] [place] [address], [place] [address] Jun, [facility] [address] [id number] [address] [place] [address], [place] [address] Jun, [facility] [address] [id number] [address] [place] [address], [place] [address] Jun, [facility] [address] [id number] [address] [place] [address], [place] [address] Jun, [facility] [address] [id number] [address] [place] [address], [place] [address] Jun, [facility] [address] [id number] [address] [place] [address], [place] [address] Jun, [facility] [address] [id number] [address] [place] [address], [place] [address] Jun, [facility] [address] [id number] [address] [place] [address], [place] [address] Jun, [facility] [address] [id number] [address] [place] [address], [place] [address] May, [facility] [address] [id number] [address] [place] [address], [place] [address] May, [facility] [address] [id number] [address] [place] [address], [place] [address] May, [facility] [address] [id number] [address] [place] [address], [place] [address] May, [facility] [address] [id number] [address] [place] [address], [place] [address] Apr, [facility] [address] [id number] [address] [place] [address], [place] [address] Apr, [facility] [address] [id number] [address] [place] [address], [place] [address] Apr, [facility] [address] [id number] [address] [place] [address], [place] [address] Apr, [facility] [address] [id number] [address] [place] [address], [place] [address] Apr, [facility] [address] [id number] [address] [place] [address], [place] [address] Apr, [facility] [address] [id number] [address] [place] [address], [place] [address] Apr, [facility] [address] [id number] [address] [place] [address], [place] [address] Apr, [facility] [address] [id number] [address] [place] [address], [place] [address] Apr, [facility] [address] [id number] [address] [place] [address], [place] [address] Apr, [facility] [address] [id number] [address] [place] [address], [place] [address] 29 Mar, 2013 [facility] [address] [id number] [address] [place] [address], [place] [address] 29 Mar, 2013 [facility] [address] [id number] [address] [place] [address], [place] [address] 29 Mar, 2013 [facility] [address] [id number] [address] [place] [address], [place] [address] 29 Mar, 2013 [facility] [address] [id number] [address] [place] [address], [place] [address] 10 Mar, 2013 [facility] [address] [id number] [address] [place] [address], [place] [address] 10 Mar, 2013 [facility] [address] [id number] [address] [place] [address], [place] [address] Mar, 2013 [facility] [address] [id number] [address] [place] [address], [place] [address] Mar, 2013 [facility] [address] [id number] [address] [place] [address], [place] [address] Mar, 2013 [facility] [address] [id number] [address] [place] [address], [place] [address] Mar, 2013 [facility] [address] [id number] [address] [place] [address], [place] [address] Mar, 2013 [facility] [address] [id number] [address] [place] [address], [place] [address] Mar, 2013 [facility] [address] [id number] [address] [place] [address], [place] [address] Feb, [facility] [address] [id number] [address] [place] [address], [place] [address] Feb, [facility] [address] [id number] [address] [place] [address], [place] [address] Jan, [facility] [address] [id number] [address] [place] [address], [place] [address] Jan, [facility] [address] [id number] [address] [place] [address], [place] [address] Jan, [facility] [address] [id number] [address] [place] [address], [place] [address] Jan, [facility] [address] [id number] [address] [place] [address], [place] [address] Dec, [facility] [address] [id number] [address] [place] [address], [place] [address] Dec, [facility] [address] [id number] [address] [place] [address], [place] [address] Dec, [facility] [address] [id number] [address] [place] [address], [place] [address] Dec, [facility] [address] [id number] [address] [place] [address], [place] [address] Dec, [facility] [address] [id number] [address] [place] [address], [place] [address] Dec, [facility] [address] [id number] [address] [place] [address], [place] [address] November, [facility] [address] [id number] [address] [place] [address], [place] [address] November, [facility] [address] [id number] [address] [place] [address], [place] [address] November, [facility] [address] [id number] [address] [place] [address], [place] [address] November, [facility] [address] [id number] [address] [place] [address], [place] [address] November, [facility] [address] [id number] [address] [place] [address], [place] [address] November, [facility] [address] [place] [address] [id number] November, [facility] [address] [id number] [address] [place] [address], [place] [address] November, [facility] [address] [id number] [address] [place] [address], [place] [address] November, [facility] [address] [id number] [address] [place] [address], [place] [address] November, [facility] [address] [id number] [address] [place] [address], [place] [address] November, [facility] [address] [id number] [address] [place] [address], [place] [address] November, [facility] [address] [id number] [address] [place] [address], [place] [address] Oct, [facility] [address] [id number] [facility] [place] [address] Oct, [facility] [address] [id number] [address] [place] [address], [place] [address] Oct, [facility] [address] [id number] [address] [place] [address], [place] [address] Oct, [facility] [address] [id number] [address] [place] [address], [place] [address] Oct, [facility] [address] [id number] [address] [place] [address], [place] [address] Oct, [facility] [address] [id number] [address] [place] [address], [place] [address] Oct, [facility] [address] [id number] [address] [place] [address], [place] [address] Oct, [facility] [address] [id number] [address] [place] [address], [place] [address] Oct, [facility] [address] [id number] [address] [place] [address], [place] [address] Oct, [facility] [address] [id number] [address] [place] [address], [place] [address] Oct, [facility] [address] [id number] [address] [place] [address], [place] [address] Oct, [facility] [address] [id number] [address] [place] [address], [place] [address] Oct, [facility] [address] [id number] [address] [place] [address], [place] [address] Oct, [facility] [address] [id number] [address] [place] [address], [place] [address] Oct, [facility] [address] [id number] [address] [place] [address], [place] [address] Sep, [facility] [address] [id number] [facility] [place] [address] Sep, [facility] [address] [id number] [facility] [place] [address] Sep, [facility] [address] [id number] [facility] [place] [address] Sep, [facility] [address] [id number] [facility] [place] [address] Aug, [facility] [address] [id number] [address] [place] [address], [place] [address] Aug, [facility] [address] [id number] [address] [place] [address], [place] [address] Aug, [facility] [address] [id number] [address] [place] [address], [place] [address] Aug, [facility] [address] [id number] [address] [place] [address], [place] [address] Jul, [facility] [address] [id number] [address] [place] [address], [place] [address] Jul, [facility] [address] [id number] [address] [place] [address], [place] [address] Jul, [facility] [address] [id number] [address] [place] [address], [place] [address] Jul, [facility] [address] [id number] [address] [place] [address], [place] [address] Jul, [facility] [address] [id number] [address] [place] [address], [place] [address] Jul, [facility] [address] [id number] [address] [place] [address], [place] [address] Jul, [facility] [address] [id number] [address] [place] [address], [place] [address] Jul, [facility] [address] [id number] [address] [place] [address], [place] [address] 14 Jul, 2013 [facility] [address] [id number] [address] [place] [address], [place] [address] Jul, [facility] [address] [id number] [address] [place] [address], [place] [address] Jul, [facility] [address] [id number] [address] [place] [address], [place] [address] Jul, [facility] [address] [id number] [address] [place] [address], [place] [address] Jul, [facility] [address] [id number] [address] [place] [address], [place] [address] Jul, [facility] [address] [id number] [address] [place] [address], [place] [address] Jun, [facility] [address] [id number] [address] [place] [address], [place] [address] Jun, [facility] [address] [id number] [address] [place] [address], [place] [address] Jun, [facility] [address] [id number] [address] [place] [address], [place] [address] Jun, [facility] [address] [id number] [address] [place] [address], [place] [address] May, [facility] [address] [id number] [address] [place] [address], [place] [address] May, [facility] [address] [id number] [address] [place] [address], [place] [address] May, [facility] [address] [id number] [address] [place] [address], [place] [address] May, [facility] [address] [id number] [address] [place] [address], [place] [address] May, [facility] [address] [id number] [address] [place] [address], [place] [address] May, [facility] [address] [id number] [address] [place] [address], [place] [address] 05 May, 2013 [facility] [address] [id number] [address] [place] [address], [place] [address] May, [facility] [address] [id number] [address] [place] [address], [place] [address] Apr, [facility] [address] [id number] [address] [place] [address], [place] [address] Apr, [facility] [address] [id number] [address] [place] [address], [place] [address] Apr, [facility] [address] [id number] [address] [place] [address], [place] [address] Apr, [facility] [address] [id number] [address] [place] [address], [place] [address] Apr, [facility] [address] [id number] [address] [place] [address], [place] [address] Apr, [facility] [address] [id number] [address] [place] [address], [place] [address] 30 Mar, 2013 [facility] [address] [id number] [address] [place] [address], [place] [address] 26 Mar, 2013 [facility] [address] [id number] [address] [place] [address], [place] [address] 20 Mar, 2013 [facility] [address] [id number] [address] [place] [address], [place] [address] 17 Mar, 2013 [facility] [address] [id number] [address] [place] [address], [place] [address] 16 Mar, 2013 [facility] [address] [id number] [address] [place] [address], [place] [address] 05 Mar, 2013 [facility] [address] [id number] [address] [place] [address], [place] [address] Feb, [facility] [address] [id number] [address] [place] [address], [place] [address] Feb, [facility] [address] [id number] [address] [place] [address], [place] [address] Feb, [facility] [address] [id number] [address] [place] [address], [place] [address] Feb, [facility] [address] [id number] [address] [place] [address], [place] [address] Jan, [facility] [address] [id number] [address] [place] [address], [place] [address] Jan, [facility] [address] [id number] [address] [place] [address], [place] [address] Jan, [facility] [address] [id number] [address] [place] [address], [place] [address] Jan, [facility] [address] [id number] [address] [place] [address], [place] [address] Jan, [facility] [address] [id number] [address] [place] [address], [place] [address] Dec, [facility] [address] [id number] [address] [place] [address], [place] [address] Dec, [facility] [address] [id number] [address] [place] [address], [place] [address] Dec, [facility] [address] [id number] [address] [place] [address], [place] [address] November, [facility] [address] [id number] [address] [place] [address], [place] [address] November, [facility] [address] [id number] [address] [place] [address], [place] [address] November, [facility] [address] [id number] [address] [place] [address], [place] [address] Oct, [facility] [address] [id number] [address] [place] [address], [place] [address] Oct, [facility] [address] [id number] [address] [place] [address], [place] [address] 26 Oct, 2012 [facility] [address] [id number] [address] [place] [address], [place] [address] 25 Oct, 2012 [facility] [address] [id number] [address] [place] [address], [place] [address] 18 Oct, 2012 [facility] [address] [id number] [address] [place] [address], [place] [address] 17 Oct, 2012 [facility] [address] [id number] [address] [place] [address], [place] [address] 15 Oct, 2012 [facility] [address] [id number] [address] [place] [address], [place] [address] 26 Sep, 2012 [facility] [address] [id number] [address] [place] [address], [place] [address] Sep, [facility] [address] [id number] [address] [place] [address], [place] [address] Sep, [facility] [address] [id number] [address] [place] [address], [place] [address] Sep, [facility] [address] [id number] [address] [place] [address], [place] [address] Aug, [facility] [address] [id number] [address] [place] [address], [place] [address] Aug, [facility] [address] [id number] [address] [place] [address], [place] [address] Aug, [facility] [address] [id number] [address] [place] [address], [place] [address] Aug, [facility] [address] [id number] [address] [place] [address], [place] [address] Aug, [facility] [address] [id number] [address] [place] [address], [place] [address] 05 Aug, 2012 [facility] [address] [id number] [address] [place] [address], [place] [address] Jul, [facility] [address] [id number] [address] [place] [address], [place] [address] 31 Jul, 2012 [facility] [address] [id number] [address] [place] [address], [place] [address] Jul, [facility] [address] [id number] [address] [place] [address], [place] [address] Jul, [facility] [address] [id number] [address] [place] [address], [place] [address] Jul, [facility] [address] [id number] [address] [place] [address], [place] [address] Jul, [facility] [address] [id number] [address] [place] [address], [place] [address] Jun, [facility] [address] [id number] [address] [place] [address], [place] [address] Jun, [facility] [address] [id number] [address] [place] [address], [place] [address] Jun, [facility] [address] [id number] [address] [place] [address], [place] [address] Jun, [facility] [address] [id number] [address] [place] [address], [place] [address] Jun, [facility] [address] [id number] [address] [place] [address], [place] [address] Jun, [facility] [address] [id number] [address] [place] [address], [place] [address] May, [facility] [address] [id number] [address] [place] [address], [place] [address] May, [facility] [address] [id number] [address] [place] [address], [place] [address] May, [facility] [address] [id number] [address] [place] [address], [place] [address] May, [facility] [address] [id number] [address] [place] [address] May, [facility] [address] [id number] [address] [place] [address], [place] [address] May, [facility] [address] [id number] [address] [place] [address] May, [facility] [address] [id number] [address] [place] [address], [place] [address] May, [facility] [address] [id number] [address] [place] [address] May, [facility] [address] [id number] [address] [place] [address], [place] [address] May, [facility] [address] [id number] [address] [place] [address], [place] [address] Apr, [facility] [address] [id number] [address] [place] [address] Apr, [facility] [address] [id number] [address] [place] [address], [place] [address] Apr, [facility] [address] [id number] [address] [place] [address] Apr, [facility] [address] [id number] [address] [place] [address] 16 Apr, 2012 [facility] [address] [id number] [address] [place] [address] 16 Apr, 2012 [facility] [address] [id number] [address] [place] [address] 15 Apr, 2012 [facility] [address] [id number] [address] [place] [address] 15 Apr, 2012 [facility] [address] [id number] [address] [place] [address] Apr, [facility] [address] [id number] [address] [place] [address], [place] [address] 28 Mar, 2012 [facility] [address] [id number] [address] [place] [address], [place] [address] 26 Mar, 2012 [facility] [address] [id number] [address] [place] [address], [place] [address] 25 Mar, 2012 [facility] [address] [id number] [address] [place] [address], [place] [address] Mar, [facility] [address] [id number] [address] [place] [address], [place] [address] 18 Mar, 2012 [facility] [address] [id number] [address] [place] [address], [place] [address] 05 Mar, 2012 [facility] [address] [id number] [address] [place] [address], [place] [address] Feb, [facility] [address] [id number] [address] [place] [address], [place] [address] Feb, [facility] [address] [id number] [address] [place] [address], [place] [address] Feb, [facility] [address] [id number] [address] [place] [address], [place] [address] Jan, [facility] [address] [id number] [address] [place] [address], [place] [address] Jan, [facility] [address] [id number] [address] [place] [address], [place] [address] Jan, [facility] [address] [id number] [address] [place] [address], [place] [address] Jan, [facility] [address] [id number] [address] [place] [address], [place] [address] Dec, [facility] [address] [id number] [address] [place] [address], [place] [address] November, [facility] [address] [id number] [address] [place] [address], [place] [address] November, [facility] [address] [id number] [address] [place] [address], [place] [address] November, [facility] [address] [id number] [address] [place] [address], [place] [address] November, [facility] [address] [id number] [address] [place] [address], [place] [address] November, [facility] [address] [id number] [address] [place] [address], [place] [address] November, [facility] [address] [id number] [address] [place] [address], [place] [address] Oct, [facility] [address] [id number] [address] [place] [address], [place] [address] Oct, [facility] [address] [id number] [address] [place] [address], [place] [address] Sep, [facility] [address] [id number] [address] [place] [address], [place] [address] Sep, [facility] [address] [id number] [address] [place] [address], [place] [address] Sep, [facility] [address] [id number] [address] [place] [address], [place] [address] Aug, [facility] [address] [id number] [address] [place] [address], [place] [address] Aug, [facility] [address] [id number] [address] [place] [address], [place] [address] Aug, [facility] [address] [id number] [address] [place] [address], [place] [address] Aug, [facility] [address] [id number] [address] [place] [address], [place] [address] Aug, [facility] [address] [id number] [address] [place] [address], [place] [address] Aug, [facility] [address] [id number] [address] [place] [address], [place] [address] Jul, [facility] [address] [id number] [address] [place] [address], [place] [address] 24 Jul, 2011 [facility] [address] [id number] [address] [place] [address], [place] [address] Jul, [facility] [address] [id number] [address] [place] [address], [place] [address] Jul, [facility] [address] [id number] [address] [place] [address], [place] [address] Jul, [facility] [address] [id number] [address] [place] [address], [place] [address] Jul, [facility] [address] [id number] [address] [place] [address], [place] [address] Jul, [facility] [address] [id number] [address] [place] [address], [place] [address] Jul, [facility] [address] [id number] [address] [place] [address], [place] [address] Jul, [facility] [address] [id number] [address] [place] [address], [place] [address] Jul, [facility] [address] [id number] [address] [place] [address], [place] [address] Jun, [facility] [address] [id number] [address] [place] [address], [place] [address] Jun, [facility] [address] [id number] [address] [place] [address], [place] [address] Jun, [facility] [address] [id number] [address] [place] [address], [place] [address] Jun, [facility] [address] [id number] [address] [place] [address], [place] [address] 30 May, 2011 [facility] [address] [id number] [address] [place] [address], [place] [address] 29 May, 2011 [facility] [address] [id number] [address] [place] [address], [place] [address] May, [facility] [address] [id number] [address] [place] [address], [place] [address] 08 May, 2011 [facility] [address] [id number] [address] [place] [address], [place] [address] 31 Apr, 2011 [facility] [address] [id number] [address] [place] [address], [place] [address] 31 Apr, 2011 [facility] [address] [id number] [address] [place] [address], [place] [address] November, [facility] [address] [id number] [address] [place] [address], [place] [address] 18 Oct, 2010 [facility] [address] [id number] [address] [place] [address], [place] [address] 17 Aug, 2010 [facility] [address] [id number] [address] [place] [address], [place] [address] 28 Jun, 2010 [facility] [address] [id number] [address] [place] [address], [place] [address] 28 Jun, 2010 [facility] [address] [id number] [address] [place] [address], [place] [address] 27 Jun, 2010 [facility] [address] [id number] [address] [place] [address], [place] [address] 03 Jun, 2010 [facility] [address] [id number] [address] [place] [address], [place] [address] 29 May, 2010 [facility] [address] [id number] [address] [place] [address], [place] [address] 27 Apr, 2010 [facility] [address] [id number] [address] [place] [address], [place] [address] 13 Oct, 2009 [facility] [address] [id number] [address] [place] [address], [place] [address] 13 Aug, 2009 [facility] [address] [id number] [address] [place] [address], [place] [address] Jul, [facility] [address] [id number] [address] [place] [id number] 22 Jun, 2009 [facility] [address] [facility] [id number] [address] [place] [address] 16 Jun, 2009 [facility] [address] [facility] [id number] [address] [place] [id number] 14 Jun, 2009 [facility] [address] [facility] [id number] [address] [place] [address] 14 Jun, 2009 [facility] [address] [facility] [id number] [address] [place] [address] May, [facility] [address] [facility] [id number] [address] [place] [address] 20 Apr, 2009 [facility] [address] [facility] [id number] [address] [place] [id number] 15 Mar, 2009 [facility] [address] [facility] [id number] [address] [place] [id number] 14 Mar, 2009 [facility] [address] [facility] [id number] [address] [place] [id number] 11 Dec, 2008 IMMUNIZATIONS No Known Immunizations [...]
--- OUTSIDE RECORDS SUMMARY | 2019-09-01 05:15 | XMS REPORT ---
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 [id number] [address] [place] [address], [place] [address] Jun, [facility] [address] [id number] [address] [place] [address], [place] [address] Jun, [facility] [address] [id number] [address] [place] [address], [place] [address] Jun, [facility] [address] [id number] [address] [place] [address], [place] [address] Jun, [facility] [address] [id number] [address] [place] [address], [place] [address] Jun, [facility] [address] [id number] [address] [place] [address], [place] [address] Jun, [facility] [address] [id number] [address] [place] [address], [place] [address] Jun, [facility] [address] [id number] [address] [place] [address], [place] [address] Jun, [facility] [address] [id number] [address] [place] [address], [place] [address] Jun, [facility] [address] [id number] [address] [place] [address], [place] [address] Jun, [facility] [address] [id number] [address] [place] [address], [place] [address] Jun, [facility] [address] [id number] [address] [place] [address], [place] [address] May, [facility] [address] [id number] [address] [place] [address], [place] [address] May, [facility] [address] [id number] [address] [place] [address], [place] [address] May, [facility] [address] [id number] [address] [place] [address], [place] [address] May, [facility] [address] [id number] [address] [place] [address], [place] [address] Apr, [facility] [address] [id number] [address] [place] [address], [place] [address] Apr, [facility] [address] [id number] [address] [place] [address], [place] [address] Apr, [facility] [address] [id number] [address] [place] [address], [place] [address] Apr, [facility] [address] [id number] [address] [place] [address], [place] [address] Apr, [facility] [address] [id number] [address] [place] [address], [place] [address] Apr, [facility] [address] [id number] [address] [place] [address], [place] [address] Apr, [facility] [address] [id number] [address] [place] [address], [place] [address] Apr, [facility] [address] [id number] [address] [place] [address], [place] [address] Apr, [facility] [address] [id number] [address] [place] [address], [place] [address] Apr, [facility] [address] [id number] [address] [place] [address], [place] [address] 29 Mar, 2013 [facility] [address] [id number] [address] [place] [address], [place] [address] 29 Mar, 2013 [facility] [address] [id number] [address] [place] [address], [place] [address] 29 Mar, 2013 [facility] [address] [id number] [address] [place] [address], [place] [address] 29 Mar, 2013 [facility] [address] [id number] [address] [place] [address], [place] [address] 10 Mar, 2013 [facility] [address] [id number] [address] [place] [address], [place] [address] 10 Mar, 2013 [facility] [address] [id number] [address] [place] [address], [place] [address] Mar, 2013 [facility] [address] [id number] [address] [place] [address], [place] [address] Mar, 2013 [facility] [address] [id number] [address] [place] [address], [place] [address] Mar, 2013 [facility] [address] [id number] [address] [place] [address], [place] [address] Mar, 2013 [facility] [address] [id number] [address] [place] [address], [place] [address] Mar, 2013 [facility] [address] [id number] [address] [place] [address], [place] [address] Mar, 2013 [facility] [address] [id number] [address] [place] [address], [place] [address] Feb, [facility] [address] [id number] [address] [place] [address], [place] [address] Feb, [facility] [address] [id number] [address] [place] [address], [place] [address] Jan, [facility] [address] [id number] [address] [place] [address], [place] [address] Jan, [facility] [address] [id number] [address] [place] [address], [place] [address] Jan, [facility] [address] [id number] [address] [place] [address], [place] [address] Jan, [facility] [address] [id number] [address] [place] [address], [place] [address] Dec, [facility] [address] [id number] [address] [place] [address], [place] [address] Dec, [facility] [address] [id number] [address] [place] [address], [place] [address] Dec, [facility] [address] [id number] [address] [place] [address], [place] [address] Dec, [facility] [address] [id number] [address] [place] [address], [place] [address] Dec, [facility] [address] [id number] [address] [place] [address], [place] [address] Dec, [facility] [address] [id number] [address] [place] [address], [place] [address] November, [facility] [address] [id number] [address] [place] [address], [place] [address] November, [facility] [address] [id number] [address] [place] [address], [place] [address] November, [facility] [address] [id number] [address] [place] [address], [place] [address] November, [facility] [address] [id number] [address] [place] [address], [place] [address] November, [facility] [address] [id number] [address] [place] [address], [place] [address] November, [facility] [address] [place] [id number] November, [facility] [address] [id number] [address] [place] [address], [place] [address] November, [facility] [address] [id number] [address] [place] [address], [place] [address] November, [facility] [address] [id number] [address] [place] [address], [place] [address] November, [facility] [address] [id number] [address] [place] [address], [place] [address] November, [facility] [address] [id number] [address] [place] [address], [place] [address] November, [facility] [address] [id number] [address] [place] [address], [place] [address] Oct, [facility] [address] [id number] [facility] [place] [address] Oct, [facility] [address] [id number] [address] [place] [address], [place] [address] Oct, [facility] [address] [id number] [address] [place] [address], [place] [address] Oct, [facility] [address] [id number] [address] [place] [address], [place] [address] Oct, [facility] [address] [id number] [address] [place] [address], [place] [address] Oct, [facility] [address] [id number] [address] [place] [address], [place] [address] Oct, [facility] [address] [id number] [address] [place] [address], [place] [address] Oct, [facility] [address] [id number] [address] [place] [address], [place] [address] Oct, [facility] [address] [id number] [address] [place] [address], [place] [address] Oct, [facility] [address] [id number] [address] [place] [address], [place] [address] Oct, [facility] [address] [id number] [address] [place] [address], [place] [address] Oct, [facility] [address] [id number] [address] [place] [address], [place] [address] Oct, [facility] [address] [id number] [address] [place] [address], [place] [address] Oct, [facility] [address] [id number] [address] [place] [address], [place] [address] Oct, [facility] [address] [id number] [address] [place] [address], [place] [address] Sep, [facility] [address] [id number] [facility] [place] [address] Sep, [facility] [address] [id number] [facility] [place] [address] Sep, [facility] [address] [id number] [facility] [place] [address] Sep, [facility] [address] [id number] [facility] [place] [address] Aug, [facility] [address] [id number] [address] [place] [address], [place] [address] Aug, [facility] [address] [id number] [address] [place] [address], [place] [address] Aug, [facility] [address] [id number] [address] [place] [address], [place] [address] Aug, [facility] [address] [id number] [address] [place] [address], [place] [address] Jul, [facility] [address] [id number] [address] [place] [address], [place] [address] Jul, [facility] [address] [id number] [address] [place] [address], [place] [address] Jul, [facility] [address] [id number] [address] [place] [address], [place] [address] Jul, [facility] [address] [id number] [address] [place] [address], [place] [address] Jul, [facility] [address] [id number] [address] [place] [address], [place] [address] Jul, [facility] [address] [id number] [address] [place] [address], [place] [address] Jul, [facility] [address] [id number] [address] [place] [address], [place] [address] Jul, [facility] [address] [id number] [address] [place] [address], [place] [address] 14 Jul, 2013 [facility] [address] [id number] [address] [place] [address], [place] [address] Jul, [facility] [address] [id number] [address] [place] [address], [place] [address] Jul, [facility] [address] [id number] [address] [place] [address], [place] [address] Jul, [facility] [address] [id number] [address] [place] [address], [place] [address] Jul, [facility] [address] [id number] [address] [place] [address], [place] [address] Jul, [facility] [address] [id number] [address] [place] [address], [place] [address] Jun, [facility] [address] [id number] [address] [place] [address], [place] [address] Jun, [facility] [address] [id number] [address] [place] [address], [place] [address] Jun, [facility] [address] [id number] [address] [place] [address], [place] [address] Jun, [facility] [address] [id number] [address] [place] [address], [place] [address] May, [facility] [address] [id number] [address] [place] [address], [place] [address] May, [facility] [address] [id number] [address] [place] [address], [place] [address] May, [facility] [address] [id number] [address] [place] [address], [place] [address] May, [facility] [address] [id number] [address] [place] [address], [place] [address] May, [facility] [address] [id number] [address] [place] [address], [place] [address] May, [facility] [address] [id number] [address] [place] [address], [place] [address] 05 May, 2013 [facility] [address] [id number] [address] [place] [address], [place] [address] May, [facility] [address] [id number] [address] [place] [address], [place] [address] Apr, [facility] [address] [id number] [address] [place] [address], [place] [address] Apr, [facility] [address] [id number] [address] [place] [address], [place] [address] Apr, [facility] [address] [id number] [address] [place] [address], [place] [address] Apr, [facility] [address] [id number] [address] [place] [address], [place] [address] Apr, [facility] [address] [id number] [address] [place] [address], [place] [address] Apr, [facility] [address] [id number] [address] [place] [address], [place] [address] 30 Mar, 2013 [facility] [address] [id number] [address] [place] [address], [place] [address] 26 Mar, 2013 [facility] [address] [id number] [address] [place] [address], [place] [address] 20 Mar, 2013 [facility] [address] [id number] [address] [place] [address], [place] [address] 17 Mar, 2013 [facility] [address] [id number] [address] [place] [address], [place] [address] 16 Mar, 2013 [facility] [address] [id number] [address] [place] [address], [place] [address] 05 Mar, 2013 [facility] [address] [id number] [address] [place] [address], [place] [address] Feb, [facility] [address] [id number] [address] [place] [address], [place] [address] Feb, [facility] [address] [id number] [address] [place] [address], [place] [address] Feb, [facility] [address] [id number] [address] [place] [address], [place] [address] Feb, [facility] [address] [id number] [address] [place] [address], [place] [address] Jan, [facility] [address] [id number] [address] [place] [address], [place] [address] Jan, [facility] [address] [id number] [address] [place] [address], [place] [address] Jan, [facility] [address] [id number] [address] [place] [address], [place] [address] Jan, [facility] [address] [id number] [address] [place] [address], [place] [address] Jan, [facility] [address] [id number] [address] [place] [address], [place] [address] Dec, [facility] [address] [id number] [address] [place] [address], [place] [address] Dec, [facility] [address] [id number] [address] [place] [address], [place] [address] Dec, [facility] [address] [id number] [address] [place] [address], [place] [address] November, [facility] [address] [id number] [address] [place] [address], [place] [address] November, [facility] [address] [id number] [address] [place] [address], [place] [address] November, [facility] [address] [id number] [address] [place] [address], [place] [address] Oct, [facility] [address] [id number] [address] [place] [address], [place] [address] Oct, [facility] [address] [id number] [address] [place] [address], [place] [address] 26 Oct, 2012 [facility] [address] [id number] [address] [place] [address], [place] [address] 25 Oct, 2012 [facility] [address] [id number] [address] [place] [address], [place] [address] 18 Oct, 2012 [facility] [address] [id number] [address] [place] [address], [place] [address] 17 Oct, 2012 [facility] [address] [id number] [address] [place] [address], [place] [address] 15 Oct, 2012 [facility] [address] [id number] [address] [place] [address], [place] [address] 26 Sep, 2012 [facility] [address] [id number] [address] [place] [address], [place] [address] Sep, [facility] [address] [id number] [address] [place] [address], [place] [address] Sep, [facility] [address] [id number] [address] [place] [address], [place] [address] Sep, [facility] [address] [id number] [address] [place] [address], [place] [address] Aug, [facility] [address] [id number] [address] [place] [address], [place] [address] Aug, [facility] [address] [id number] [address] [place] [address], [place] [address] Aug, [facility] [address] [id number] [address] [place] [address], [place] [address] Aug, [facility] [address] [id number] [address] [place] [address], [place] [address] Aug, [facility] [address] [id number] [address] [place] [address], [place] [address] 05 Aug, 2012 [facility] [address] [id number] [address] [place] [address], [place] [address] Jul, [facility] [address] [id number] [address] [place] [address], [place] [address] 31 Jul, 2012 [facility] [address] [id number] [address] [place] [address], [place] [address] Jul, [facility] [address] [id number] [address] [place] [address], [place] [address] Jul, [facility] [address] [id number] [address] [place] [address], [place] [address] Jul, [facility] [address] [id number] [address] [place] [address], [place] [address] Jul, [facility] [address] [id number] [address] [place] [address], [place] [address] Jun, [facility] [address] [id number] [address] [place] [address], [place] [address] Jun, [facility] [address] [id number] [address] [place] [address], [place] [address] Jun, [facility] [address] [id number] [address] [place] [address], [place] [address] Jun, [facility] [address] [id number] [address] [place] [address], [place] [address] Jun, [facility] [address] [id number] [address] [place] [address], [place] [address] Jun, [facility] [address] [id number] [address] [place] [address], [place] [address] May, [facility] [address] [id number] [address] [place] [address], [place] [address] May, [facility] [address] [id number] [address] [place] [address], [place] [address] May, [facility] [address] [id number] [address] [place] [address], [place] [address] May, [facility] [address] [id number] [address] [place] [address] May, [facility] [address] [id number] [address] [place] [address], [place] [address] May, [facility] [address] [id number] [address] [place] [address] May, [facility] [address] [id number] [address] [place] [address], [place] [address] May, [facility] [address] [id number] [address] [place] [address] May, [facility] [address] [id number] [address] [place] [address], [place] [address] May, [facility] [address] [id number] [address] [place] [address], [place] [address] Apr, [facility] [address] [id number] [address] [place] [address] Apr, [facility] [address] [id number] [address] [place] [address], [place] [address] Apr, [facility] [address] [id number] [address] [place] [address] Apr, [facility] [address] [id number] [address] [place] [address] 16 Apr, 2012 [facility] [address] [id number] [address] [place] [address] 16 Apr, 2012 [facility] [address] [id number] [address] [place] [address] 15 Apr, 2012 [facility] [address] [id number] [address] [place] [address] 15 Apr, 2012 [facility] [address] [id number] [address] [place] [address] Apr, [facility] [address] [id number] [address] [place] [address], [place] [address] 28 Mar, 2012 [facility] [address] [id number] [address] [place] [address], [place] [address] 26 Mar, 2012 [facility] [address] [id number] [address] [place] [address], [place] [address] 25 Mar, 2012 [facility] [address] [id number] [address] [place] [address], [place] [address] Mar, [facility] [address] [id number] [address] [place] [address], [place] [address] 18 Mar, 2012 [facility] [address] [id number] [address] [place] [address], [place] [address] 05 Mar, 2012 [facility] [address] [id number] [address] [place] [address], [place] [address] Feb, [facility] [address] [id number] [address] [place] [address], [place] [address] Feb, [facility] [address] [id number] [address] [place] [address], [place] [address] Feb, [facility] [address] [id number] [address] [place] [address], [place] [address] Jan, [facility] [address] [id number] [address] [place] [address], [place] [address] Jan, [facility] [address] [id number] [address] [place] [address], [place] [address] Jan, [facility] [address] [id number] [address] [place] [address], [place] [address] Jan, [facility] [address] [id number] [address] [place] [address], [place] [address] Dec, [facility] [address] [id number] [address] [place] [address], [place] [address] November, [facility] [address] [id number] [address] [place] [address], [place] [address] November, [facility] [address] [id number] [address] [place] [address], [place] [address] November, [facility] [address] [id number] [address] [place] [address], [place] [address] November, [facility] [address] [id number] [address] [place] [address], [place] [address] November, [facility] [address] [id number] [address] [place] [address], [place] [address] November, [facility] [address] [id number] [address] [place] [address], [place] [address] Oct, [facility] [address] [id number] [address] [place] [address], [place] [address] Oct, [facility] [address] [id number] [address] [place] [address], [place] [address] Sep, [facility] [address] [id number] [address] [place] [address], [place] [address] Sep, [facility] [address] [id number] [address] [place] [address], [place] [address] Sep, [facility] [address] [id number] [address] [place] [address], [place] [address] Aug, [facility] [address] [id number] [address] [place] [address], [place] [address] Aug, [facility] [address] [id number] [address] [place] [address], [place] [address] Aug, [facility] [address] [id number] [address] [place] [address], [place] [address] Aug, [facility] [address] [id number] [address] [place] [address], [place] [address] Aug, [facility] [address] [id number] [address] [place] [address], [place] [address] Aug, [facility] [address] [id number] [address] [place] [address], [place] [address] Jul, [facility] [address] [id number] [address] [place] [address], [place] [address] 24 Jul, 2011 [facility] [address] [id number] [address] [place] [address], [place] [address] Jul, [facility] [address] [id number] [address] [place] [address], [place] [address] Jul, [facility] [address] [id number] [address] [place] [address], [place] [address] Jul, [facility] [address] [id number] [address] [place] [address], [place] [address] Jul, [facility] [address] [id number] [address] [place] [address], [place] [address] Jul, [facility] [address] [id number] [address] [place] [address], [place] [address] Jul, [facility] [address] [id number] [address] [place] [address], [place] [address] Jul, [facility] [address] [id number] [address] [place] [address], [place] [address] Jul, [facility] [address] [id number] [address] [place] [address], [place] [address] Jun, [facility] [address] [id number] [address] [place] [address], [place] [address] Jun, [facility] [address] [id number] [address] [place] [address], [place] [address] Jun, [facility] [address] [id number] [address] [place] [address], [place] [address] Jun, [facility] [address] [id number] [address] [place] [address], [place] [address] 30 May, 2011 [facility] [address] [id number] [address] [place] [address], [place] [address] 29 May, 2011 [facility] [address] [id number] [address] [place] [address], [place] [address] May, [facility] [address] [id number] [address] [place] [address], [place] [address] 08 May, 2011 [facility] [address] [id number] [address] [place] [address], [place] [address] 31 Apr, 2011 [facility] [address] [id number] [address] [place] [address], [place] [address] 31 Apr, 2011 [facility] [address] [id number] [address] [place] [address], [place] [address] November, [facility] [address] [id number] [address] [place] [address], [place] [address] 18 Oct, 2010 [facility] [address] [id number] [address] [place] [address], [place] [address] 17 Aug, 2010 [facility] [address] [id number] [address] [place] [address], [place] [address] 28 Jun, 2010 [facility] [address] [id number] [address] [place] [address], [place] [address] 28 Jun, 2010 [facility] [address] [id number] [address] [place] [address], [place] [address] 27 Jun, 2010 [facility] [address] [id number] [address] [place] [address], [place] [address] 03 Jun, 2010 [facility] [address] [id number] [address] [place] [address], [place] [address] 29 May, 2010 [facility] [address] [id number] [address] [place] [address], [place] [address] 27 Apr, 2010 [facility] [address] [id number] [address] [place] [address], [place] [address] 13 Oct, 2009 [facility] [address] [id number] [address] [place] [address], [place] [address] 13 Aug, 2009 [facility] [address] [id number] [address] [place] [address], [place] [address] Jul, [facility] [address] [id number] [address] [place] [address] 22 Jun, 2009 [facility] [address] [facility] [id number] [address] [place] [id number] 16 Jun, 2009 [facility] [address] [facility] [id number] [address] [place] [address] 14 Jun, 2009 [facility] [address] [facility] [id number] [address] [place] [address] 14 Jun, 2009 [facility] [address] [facility] [id number] [address] [place] [address] May, [facility] [address] [facility] [id number] [address] [place] [id number] 20 Apr, 2009 [facility] [address] [facility] [id number] [address] [place] [id number] 15 Mar, 2009 [facility] [address] [facility] [id number] [address] [place] [id number] 14 Mar, 2009 [facility] [address] [facility] [id number] [address] [place] [id number] 11 Dec, 2008 IMMUNIZATIONS No Known Immunizations [...]
--- OUTSIDE RECORDS SUMMARY | 2019-09-01 05:15 | XMS REPORT ---
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 [id number] [address] [place] [address], [place] [address] Jun, [facility] [address] [id number] [address] [place] [address], [place] [address] Jun, [facility] [address] [id number] [address] [place] [address], [place] [address] Jun, [facility] [address] [id number] [address] [place] [address], [place] [address] Jun, [facility] [address] [id number] [address] [place] [address], [place] [address] Jun, [facility] [address] [id number] [address] [place] [address], [place] [address] Jun, [facility] [address] [id number] [address] [place] [address], [place] [address] Jun, [facility] [address] [id number] [address] [place] [address], [place] [address] Jun, [facility] [address] [id number] [address] [place] [address], [place] [address] Jun, [facility] [address] [id number] [address] [place] [address], [place] [address] Jun, [facility] [address] [id number] [address] [place] [address], [place] [address] May, [facility] [address] [id number] [address] [place] [address], [place] [address] May, [facility] [address] [id number] [address] [place] [address], [place] [address] May, [facility] [address] [id number] [address] [place] [address], [place] [address] May, [facility] [address] [id number] [address] [place] [address], [place] [address] Apr, [facility] [address] [id number] [address] [place] [address], [place] [address] Apr, [facility] [address] [id number] [address] [place] [address], [place] [address] Apr, [facility] [address] [id number] [address] [place] [address], [place] [address] Apr, [facility] [address] [id number] [address] [place] [address], [place] [address] Apr, [facility] [address] [id number] [address] [place] [address], [place] [address] Apr, [facility] [address] [id number] [address] [place] [address], [place] [address] Apr, [facility] [address] [id number] [address] [place] [address], [place] [address] Apr, [facility] [address] [id number] [address] [place] [address], [place] [address] Apr, [facility] [address] [id number] [address] [place] [address], [place] [address] Apr, [facility] [address] [id number] [address] [place] [address], [place] [address] 29 Mar, 2013 [facility] [address] [id number] [address] [place] [address], [place] [address] 29 Sep, 2013 [facility] [address] [id number] [address] [place] [address], [place] [address] 29 Sep, 2013 [facility] [address] [id number] [address] [place] [address], [place] [address] 29 Mar, 2013 [facility] [address] [id number] [address] [place] [address], [place] [address] 10 Mar, 2013 [facility] [address] [id number] [address] [place] [address], [place] [address] 10 Mar, 2013 [facility] [address] [id number] [address] [place] [address], [place] [address] 04 Mar, 2013 [facility] [address] [id number] [address] [place] [address], [place] [address] 04 Mar, 2013 [facility] [address] [id number] [address] [place] [address], [place] [address] Mar, 2013 [facility] [address] [id number] [address] [place] [address], [place] [address] Mar, 2013 [facility] [address] [id number] [address] [place] [address], [place] [address] Mar, [facility] [address] [id number] [address] [place] [address], [place] [address] Mar, [facility] [address] [id number] [address] [place] [address], [place] [address] Feb, [facility] [address] [id number] [address] [place] [address], [place] [address] Feb, [facility] [address] [id number] [address] [place] [address], [place] [address] Jan, [facility] [address] [id number] [address] [place] [address], [place] [address] Jan, [facility] [address] [id number] [address] [place] [address], [place] [address] Jan, [facility] [address] [id number] [address] [place] [address], [place] [address] Jan, [facility] [address] [id number] [address] [place] [address], [place] [address] Dec, [facility] [address] [id number] [address] [place] [address], [place] [address] Dec, [facility] [address] [id number] [address] [place] [address], [place] [address] 18 Dec, 2013 [facility] [address] [id number] [address] [place] [address], [place] [address] Dec, [facility] [address] [id number] [address] [place] [address], [place] [address] Dec, [facility] [address] [id number] [address] [place] [address], [place] [address] Dec, [facility] [address] [id number] [address] [place] [address], [place] [address] November, [facility] [address] [id number] [address] [place] [address], [place] [address] November, [facility] [address] [id number] [address] [place] [address], [place] [address] November, [facility] [address] [id number] [address] [place] [address], [place] [address] November, [facility] [address] [id number] [address] [place] [address], [place] [address] November, [facility] [address] [id number] [address] [place] [address], [place] [address] November, [facility] [address] [place] [id number] November, [facility] [address] [id number] [address] [place] [address], [place] [address] November, [facility] [address] [id number] [address] [place] [address], [place] [address] November, [facility] [address] [id number] [address] [place] [address], [place] [address] November, [facility] [address] [id number] [address] [place] [address], [place] [address] November, [facility] [address] [id number] [address] [place] [address], [place] [address] November, [facility] [address] [id number] [address] [place] [address], [place] [address] Oct, [facility] [address] [id number] [address] [place] [address], [place] [address] Oct, [facility] [address] [id number] [facility] [place] [address] Oct, [facility] [address] [id number] [address] [place] [address], [place] [address] Oct, [facility] [address] [id number] [address] [place] [address], [place] [address] Oct, [facility] [address] [id number] [address] [place] [address], [place] [address] Oct, [facility] [address] [id number] [address] [place] [address], [place] [address] Oct, [facility] [address] [id number] [address] [place] [address], [place] [address] Oct, [facility] [address] [id number] [address] [place] [address], [place] [address] Oct, [facility] [address] [id number] [address] [place] [address], [place] [address] Oct, [facility] [address] [id number] [address] [place] [address], [place] [address] Oct, [facility] [address] [id number] [address] [place] [address], [place] [address] Oct, [facility] [address] [id number] [address] [place] [address], [place] [address] Oct, [facility] [address] [id number] [address] [place] [address], [place] [address] Oct, [facility] [address] [id number] [address] [place] [address], [place] [address] Oct, [facility] [address] [id number] [address] [place] [address], [place] [address] Sep, [facility] [address] [id number] [address] [place] [address], [place] [address] Sep, [facility] [address] [id number] [facility] [place] [address] Sep, [facility] [address] [id number] [address] [place] [address], [place] [address] Sep, [facility] [address] [id number] [facility] [address] Aug, [facility] [address] [id number] [address] [place] [address], [place] [address] Aug, [facility] [address] [id number] [address] [place] [address], [place] [address] Aug, [facility] [address] [id number] [address] [place] [address], [place] [address] Aug, [facility] [address] [id number] [address] [place] [address], [place] [address] Jul, [facility] [address] [id number] [address] [place] [address], [place] [address] Jul, [facility] [address] [id number] [address] [place] [address], [place] [address] Jul, [facility] [address] [id number] [address] [place] [address], [place] [address] Jul, [facility] [address] [id number] [address] [place] [address], [place] [address] Jul, [facility] [address] [id number] [address] [place] [address], [place] [address] Jul, [facility] [address] [id number] [address] [place] [address], [place] [address] Jul, [facility] [address] [id number] [address] [place] [address], [place] [address] Jul, [facility] [address] [id number] [address] [place] [address], [place] [address] Jul, [facility] [address] [id number] [address] [place] [address], [place] [address] Jul, [facility] [address] [id number] [address] [place] [address], [place] [address] Jul, [facility] [address] [id number] [address] [place] [address], [place] [address] Jul, [facility] [address] [id number] [address] [place] [address], [place] [address] Jul, [facility] [address] [id number] [address] [place] [address], [place] [address] Jul, [facility] [address] [id number] [address] [place] [address], [place] [address] Jun, [facility] [address] [id number] [address] [place] [address], [place] [address] Jun, [facility] [address] [id number] [address] [place] [address], [place] [address] Jun, [facility] [address] [id number] [address] [place] [address], [place] [address] Jun, [facility] [address] [id number] [address] [place] [address], [place] [address] May, [facility] [address] [id number] [address] [place] [address], [place] [address] May, [facility] [address] [id number] [address] [place] [address], [place] [address] May, [facility] [address] [id number] [address] [place] [address] May, [facility] [address] [id number] [address] [place] [address], [place] [address] May, [facility] [address] [id number] [address] [place] [address], [place] [address] May, [facility] [address] [id number] [address] [place] [address], [place] [address] May, [facility] [address] [id number] [address] [place] [address], [place] [address] 05 May, 2013 [facility] [address] [id number] [address] [place] [address], [place] [address] Apr, [facility] [address] [id number] [address] [place] [address], [place] [address] Apr, [facility] [address] [id number] [address] [place] [address], [place] [address] Apr, [facility] [address] [id number] [address] [place] [address], [place] [address] Apr, [facility] [address] [id number] [address] [place] [address], [place] [address] Apr, [facility] [address] [id number] [address] [place] [address], [place] [address] Apr, [facility] [address] [id number] [address] [place] [address], [place] [address] 30 Mar, 2013 [facility] [address] [id number] [address] [place] [address], [place] [address] 26 Mar, 2013 [facility] [address] [id number] [address] [place] [address], [place] [address] 20 Mar, 2013 [facility] [address] [id number] [address] [place] [address], [place] [address] 17 Mar, 2013 [facility] [address] [id number] [address] [place] [address], [place] [address] 16 Mar, 2013 [facility] [address] [id number] [address] [place] [address], [place] [address] 05 Mar, 2013 [facility] [address] [id number] [address] [place] [address], [place] [address] 27 Feb, 2013 [facility] [address] [id number] [address] [place] [address], [place] [address] Feb, [facility] [address] [id number] [address] [place] [address], [place] [address] Feb, [facility] [address] [id number] [address] [place] [address], [place] [address] Feb, [facility] [address] [id number] [address] [place] [address], [place] [address] Jan, [facility] [address] [id number] [address] [place] [address], [place] [address] Jan, [facility] [address] [id number] [address] [place] [address], [place] [address] Jan, [facility] [address] [id number] [address] [place] [address], [place] [address] Jan, [facility] [address] [id number] [address] [place] [address], [place] [address] Jan, [facility] [address] [id number] [address] [place] [address], [place] [address] Dec, [facility] [address] [id number] [address] [place] [address], [place] [address] Dec, [facility] [address] [id number] [address] [place] [address], [place] [address] Dec, [facility] [address] [id number] [address] [place] [address], [place] [address] November, [facility] [address] [id number] [address] [place] [address], [place] [address] November, [facility] [address] [id number] [address] [place] [address], [place] [address] November, [facility] [address] [id number] [address] [place] [address], [place] [address] Oct, [facility] [address] [id number] [address] [place] [address], [place] [address] Oct, [facility] [address] [id number] [address] [place] [address], [place] [address] Oct, [facility] [address] [id number] [address] [place] [address], [place] [address] 25 Oct, 2012 [facility] [address] [id number] [address] [place] [address], [place] [address] 18 Oct, 2012 [facility] [address] [id number] [address] [place] [address], [place] [address] 17 Oct, 2012 [facility] [address] [id number] [address] [place] [address], [place] [address] 15 Oct, 2012 [facility] [address] [id number] [address] [place] [address], [place] [address] 26 Sep, 2012 [facility] [address] [id number] [address] [place] [address], [place] [address] Sep, [facility] [address] [id number] [address] [place] [address], [place] [address] 06 Sep, 2012 [facility] [address] [id number] [address] [place] [address], [place] [address] Sep, [facility] [address] [id number] [address] [place] [address], [place] [address] Aug, [facility] [address] [id number] [address] [place] [address], [place] [address] Aug, [facility] [address] [id number] [address] [place] [address], [place] [address] Aug, [facility] [address] [id number] [address] [place] [address], [place] [address] Aug, [facility] [address] [id number] [address] [place] [address], [place] [address] 18 Aug, 2012 [facility] [address] [id number] [address] [place] [address], [place] [address] 05 Aug, 2012 [facility] [address] [id number] [address] [place] [address], [place] [address] Jul, [facility] [address] [id number] [address] [place] [address], [place] [address] Jul, [facility] [address] [id number] [address] [place] [address], [place] [address] 29 Jul, 2012 [facility] [address] [id number] [address] [place] [address], [place] [address] Jul, [facility] [address] [id number] [address] [place] [address], [place] [address] Jul, [facility] [address] [id number] [address] [place] [address], [place] [address] Jul, [facility] [address] [id number] [address] [place] [address], [place] [address] Jun, [facility] [address] [id number] [address] [place] [address], [place] [address] Jun, [facility] [address] [id number] [address] [place] [address], [place] [address] Jun, [facility] [address] [id number] [address] [place] [address], [place] [address] Jun, [facility] [address] [id number] [address] [place] [address], [place] [address] Jun, [facility] [address] [id number] [address] [place] [address], [place] [address] Jun, [facility] [address] [id number] [address] [place] [address], [place] [address] May, [facility] [address] [id number] [address] [place] [address], [place] [address] May, [facility] [address] [id number] [address] [place] [address], [place] [address] May, [facility] [address] [id number] [address] [place] [address], [place] [address] May, [facility] [address] [id number] [address] [place] [address], [place] [address] May, [facility] [address] [id number] [address] [place] [address] May, [facility] [address] [id number] [address] [place] [address], [place] [address] May, [facility] [address] [id number] [address] [place] [address] May, [facility] [address] [id number] [address] [place] [address], [place] [address] May, [facility] [address] [id number] [address] [place] [address] May, [facility] [address] [id number] [address] [place] [address], [place] [address] Apr, [facility] [address] [id number] [address] [place] [address], [place] [address] 31 Apr, 2012 [facility] [address] [id number] [address] [place] [address] Apr, [facility] [address] [id number] [address] [place] [address], [place] [address] 23 Apr, 2012 [facility] [address] [id number] [address] [place] [address] 16 Apr, 2012 [facility] [address] [id number] [address] [place] [address] 16 Apr, 2012 [facility] [address] [id number] [address] [place] [address] 15 Apr, 2012 [facility] [address] [id number] [address] [place] [address] 15 Apr, 2012 [facility] [address] [id number] [address] [place] [address] 05 Apr, 2012 [facility] [address] [id number] [address] [place] [address] 28 Mar, 2012 [facility] [address] [id number] [address] [place] [address], [place] [address] 26 Mar, 2012 [facility] [address] [id number] [address] [place] [address], [place] [address] 25 Mar, 2012 [facility] [address] [id number] [address] [place] [address], [place] [address] 19 Mar, 2012 [facility] [address] [id number] [address] [place] [address], [place] [address] 18 Mar, 2012 [facility] [address] [id number] [address] [place] [address], [place] [address] 05 Mar, 2012 [facility] [address] [id number] [address] [place] [address], [place] [address] Feb, [facility] [address] [id number] [address] [place] [address], [place] [address] Feb, [facility] [address] [id number] [address] [place] [address], [place] [address] Feb, [facility] [address] [id number] [address] [place] [address], [place] [address] Jan, [facility] [address] [id number] [address] [place] [address], [place] [address] Jan, [facility] [address] [id number] [address] [place] [address], [place] [address] Jan, [facility] [address] [id number] [address] [place] [address], [place] [address] Jan, [facility] [address] [id number] [address] [place] [address], [place] [address] Dec, [facility] [address] [id number] [address] [place] [address], [place] [address] November, [facility] [address] [id number] [address] [place] [address], [place] [address] November, [facility] [address] [id number] [address] [place] [address], [place] [address] November, [facility] [address] [id number] [address] [place] [address], [place] [address] November, [facility] [address] [id number] [address] [place] [address], [place] [address] November, [facility] [address] [id number] [address] [place] [address], [place] [address] November, [facility] [address] [id number] [address] [place] [address], [place] [address] Oct, [facility] [address] [id number] [address] [place] [address], [place] [address] Oct, [facility] [address] [id number] [address] [place] [address], [place] [address] Sep, [facility] [address] [id number] [address] [place] [address], [place] [address] Sep, [facility] [address] [id number] [address] [place] [address], [place] [address] Sep, [facility] [address] [id number] [address] [place] [address], [place] [address] Aug, [facility] [address] [id number] [address] [place] [address], [place] [address] Aug, [facility] [address] [id number] [address] [place] [address], [place] [address] Aug, [facility] [address] [id number] [address] [place] [address], [place] [address] Aug, [facility] [address] [id number] [address] [place] [address], [place] [address] Aug, [facility] [address] [id number] [address] [place] [address], [place] [address] Aug, [facility] [address] [id number] [address] [place] [address], [place] [address] Jul, [facility] [address] [id number] [address] [place] [address], [place] [address] Jul, [facility] [address] [id number] [address] [place] [address], [place] [address] 22 Jul, 2011 [facility] [address] [id number] [address] [place] [address], [place] [address] Jul, [facility] [address] [id number] [address] [place] [address], [place] [address] 18 Jul, 2011 [facility] [address] [id number] [address] [place] [address], [place] [address] Jul, [facility] [address] [id number] [address] [place] [address], [place] [address] 17 Jul, 2011 [facility] [address] [id number] [address] [place] [address], [place] [address] Jul, [facility] [address] [id number] [address] [place] [address], [place] [address] Jul, [facility] [address] [id number] [address] [place] [address], [place] [address] Jul, [facility] [address] [id number] [address] [place] [address], [place] [address] Jun, [facility] [address] [id number] [address] [place] [address], [place] [address] Jun, [facility] [address] [id number] [address] [place] [address], [place] [address] Jun, [facility] [address] [id number] [address] [place] [address], [place] [address] Jun, [facility] [address] [id number] [address] [place] [address], [place] [address] May, [facility] [address] [id number] [address] [place] [address], [place] [address] 29 May, 2011 [facility] [address] [id number] [address] [place] [address], [place] [address] May, [facility] [address] [id number] [address] [place] [address], [place] [address] 08 May, 2011 [facility] [address] [id number] [address] [place] [address], [place] [address] 31 Apr, 2011 [facility] [address] [id number] [address] [place] [address], [place] [address] 31 Apr, 2011 [facility] [address] [id number] [address] [place] [address], [place] [address] November, [facility] [address] [id number] [address] [place] [address], [place] [address] 18 Oct, 2010 [facility] [address] [id number] [address] [place] [address], [place] [address] 17 Aug, 2010 [facility] [address] [id number] [address] [place] [address], [place] [address] 28 Jun, 2010 [facility] [address] [id number] [address] [place] [address], [place] [address] 28 Jun, 2010 [facility] [address] [id number] [address] [place] [address], [place] [address] 27 Jun, 2010 [facility] [address] [id number] [address] [place] [address], [place] [address] 03 Jun, 2010 [facility] [address] [id number] [address] [place] [address], [place] [address] 29 May, 2010 [facility] [address] [id number] [address] [place] [address], [place] [address] 27 Apr, 2010 [facility] [address] [id number] [address] [place] [address], [place] [address] 13 Oct, 2009 [facility] [address] [id number] [address] [place] [address], [place] [address] 13 Aug, 2009 [facility] [address] [id number] [address] [place] [address], [place] [address] Jul, [facility] [address] [id number] [address] [place] [address], [place] [address] 22 Jun, 2009 [facility] [address] [id number] [address] [place] [address] 16 Jun, 2009 [facility] [address] [facility] [id number] [address] [place] [address] 14 Jun, 2009 [facility] [address] [facility] [place] [id number] [address] [place] [address] 14 Jun, 2009 [facility] [address] [facility] [id number] [address] [place] [address] May, [facility] [address] [facility] [place] [id number] [address] [place] [address] Apr, [facility] [address] [facility] [place] [id number] [address] [place] [address] 15 Mar, 2009 [facility] [address] [facility] [place] [id number] [address] [place] [address] 14 Mar, 2009 [facility] [address] [facility] [place] [id number] [address] [place] [address] 11 Dec, 2008 IMMUNIZATIONS No Known Immunizations [...]
--- OUTSIDE RECORDS SUMMARY | 2019-09-01 05:16 | XMS REPORT ---
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 Jun, [facility] [address] [id number] [address] [place] [address], [place] [address] Jun, [facility] [address] [id number] [address] [place] [address], [place] [address] Jun, [facility] [address] [id number] [address] [place] [address], [place] [address] Jun, [facility] [address] [id number] [address] [place] [address], [place] [address] Jun, [facility] [address] [id number] [address] [place] [address], [place] [address] Jun, [facility] [address] [id number] [address] [place] [address], [place] [address] Jun, [facility] [address] [id number] [address] [place] [address], [place] [address] Jun, [facility] [address] [id number] [address] [place] [address], [place] [address] Jun, [facility] [address] [id number] [address] [place] [address], [place] [address] May, [facility] [address] [id number] [address] [place] [address], [place] [address] May, [facility] [address] [id number] [address] [place] [address], [place] [address] May, [facility] [address] [id number] [address] [place] [address], [place] [address] May, [facility] [address] [id number] [address] [place] [address], [place] [address] Apr, [facility] [address] [id number] [address] [place] [address], [place] [address] Apr, [facility] [address] [id number] [address] [place] [address], [place] [address] Apr, [facility] [address] [id number] [address] [place] [address], [place] [address] Apr, [facility] [address] [id number] [address] [place] [address], [place] [address] Apr, [facility] [address] [id number] [address] [place] [address], [place] [address] Apr, [facility] [address] [id number] [address] [place] [address], [place] [address] Apr, [facility] [address] [id number] [address] [place] [address], [place] [address] Apr, [facility] [address] [id number] [address] [place] [address], [place] [address] Apr, [facility] [address] [id number] [address] [place] [address], [place] [address] Apr, [facility] [address] [id number] [address] [place] [address], [place] [address] 29 Mar, 2013 [facility] [address] [id number] [address] [place] [address], [place] [address] 29 Sep, 2013 [facility] [address] [id number] [address] [place] [address], [place] [address] 29 Sep, 2013 [facility] [address] [id number] [address] [place] [address], [place] [address] 29 Mar, 2013 [facility] [address] [id number] [address] [place] [address], [place] [address] 10 Mar, 2013 [facility] [address] [id number] [address] [place] [address], [place] [address] 10 Mar, 2013 [facility] [address] [id number] [address] [place] [address], [place] [address] 04 Mar, 2013 [facility] [address] [id number] [address] [place] [address], [place] [address] 04 Mar, 2013 [facility] [address] [id number] [address] [place] [address], [place] [address] Mar, 2013 [facility] [address] [id number] [address] [place] [address], [place] [address] Mar, 2013 [facility] [address] [id number] [address] [place] [address], [place] [address] Mar, [facility] [address] [id number] [address] [place] [address], [place] [address] Mar, [facility] [address] [id number] [address] [place] [address], [place] [address] Feb, [facility] [address] [id number] [address] [place] [address], [place] [address] Feb, [facility] [address] [id number] [address] [place] [address], [place] [address] Jan, [facility] [address] [id number] [address] [place] [address], [place] [address] Jan, [facility] [address] [id number] [address] [place] [address], [place] [address] Jan, [facility] [address] [id number] [address] [place] [address], [place] [address] Jan, [facility] [address] [id number] [address] [place] [address], [place] [address] Dec, [facility] [address] [id number] [address] [place] [address], [place] [address] Dec, [facility] [address] [id number] [address] [place] [address], [place] [address] 18 Dec, 2013 [facility] [address] [id number] [address] [place] [address], [place] [address] Dec, [facility] [address] [id number] [address] [place] [address], [place] [address] Dec, [facility] [address] [id number] [address] [place] [address], [place] [address] Dec, [facility] [address] [id number] [address] [place] [address], [place] [address] November, [facility] [address] [id number] [address] [place] [address], [place] [address] November, [facility] [address] [id number] [address] [place] [address], [place] [address] November, [facility] [address] [id number] [address] [place] [address], [place] [address] November, [facility] [address] [id number] [address] [place] [address], [place] [address] November, [facility] [address] [id number] [address] [place] [address], [place] [address] November, [facility] [address] [place] [id number] November, [facility] [address] [id number] [address] [place] [address], [place] [address] November, [facility] [address] [id number] [address] [place] [address], [place] [address] November, [facility] [address] [id number] [address] [place] [address], [place] [address] November, [facility] [address] [id number] [address] [place] [address], [place] [address] November, [facility] [address] [id number] [address] [place] [address], [place] [address] November, [facility] [address] [id number] [address] [place] [address], [place] [address] Oct, [facility] [address] [id number] [address] [place] [address], [place] [address] Oct, [facility] [address] [id number] [facility] [place] [address] Oct, [facility] [address] [id number] [address] [place] [address], [place] [address] Oct, [facility] [address] [id number] [address] [place] [address], [place] [address] Oct, [facility] [address] [id number] [address] [place] [address], [place] [address] Oct, [facility] [address] [id number] [address] [place] [address], [place] [address] Oct, [facility] [address] [id number] [address] [place] [address], [place] [address] Oct, [facility] [address] [id number] [address] [place] [address], [place] [address] Oct, [facility] [address] [id number] [address] [place] [address], [place] [address] Oct, [facility] [address] [id number] [address] [place] [address], [place] [address] Oct, [facility] [address] [id number] [address] [place] [address], [place] [address] Oct, [facility] [address] [id number] [address] [place] [address], [place] [address] Oct, [facility] [address] [id number] [address] [place] [address], [place] [address] Oct, [facility] [address] [id number] [address] [place] [address], [place] [address] Oct, [facility] [address] [id number] [address] [place] [address], [place] [address] Sep, [facility] [address] [id number] [address] [place] [address], [place] [address] Sep, [facility] [address] [id number] [facility] [place] [address] Sep, [facility] [address] [id number] [address] [place] [address], [place] [address] Sep, [facility] [address] [id number] [facility] [place] [address] Aug, [facility] [address] [id number] [address] [place] [address], [place] [address] Aug, [facility] [address] [id number] [address] [place] [address], [place] [address] Aug, [facility] [address] [id number] [address] [place] [address], [place] [address] Aug, [facility] [address] [id number] [address] [place] [address], [place] [address] Jul, [facility] [address] [id number] [address] [place] [address], [place] [address] Jul, [facility] [address] [id number] [address] [place] [address], [place] [address] Jul, [facility] [address] [id number] [address] [place] [address], [place] [address] Jul, [facility] [address] [id number] [address] [place] [address], [place] [address] Jul, [facility] [address] [id number] [address] [place] [address], [place] [address] Jul, [facility] [address] [id number] [address] [place] [address], [place] [address] Jul, [facility] [address] [id number] [address] [place] [address], [place] [address] Jul, [facility] [address] [id number] [address] [place] [address], [place] [address] Jul, [facility] [address] [id number] [address] [place] [address], [place] [address] Jul, [facility] [address] [id number] [address] [place] [address], [place] [address] Jul, [facility] [address] [id number] [address] [place] [address], [place] [address] Jul, [facility] [address] [id number] [address] [place] [address], [place] [address] Jul, [facility] [address] [id number] [address] [place] [address], [place] [address] Jul, [facility] [address] [id number] [address] [place] [address], [place] [address] Jun, [facility] [address] [id number] [address] [place] [address], [place] [address] Jun, [facility] [address] [id number] [address] [place] [address], [place] [address] Jun, [facility] [address] [id number] [address] [place] [address], [place] [address] Jun, [facility] [address] [id number] [address] [place] [address], [place] [address] May, [facility] [address] [id number] [address] [place] [address], [place] [address] May, [facility] [address] [id number] [address] [place] [address], [place] [address] May, [facility] [address] [id number] [address] [place] [address] May, [facility] [address] [id number] [address] [place] [address], [place] [address] May, [facility] [address] [id number] [address] [place] [address], [place] [address] May, [facility] [address] [id number] [address] [place] [address], [place] [address] May, [facility] [address] [id number] [address] [place] [address], [place] [address] 05 May, 2013 [facility] [address] [id number] [address] [place] [address], [place] [address] Apr, [facility] [address] [id number] [address] [place] [address], [place] [address] Apr, [facility] [address] [id number] [address] [place] [address], [place] [address] Apr, [facility] [address] [id number] [address] [place] [address], [place] [address] Apr, [facility] [address] [id number] [address] [place] [address], [place] [address] Apr, [facility] [address] [id number] [address] [place] [address], [place] [address] Apr, [facility] [address] [id number] [address] [place] [address], [place] [address] 30 Mar, 2013 [facility] [address] [id number] [address] [place] [address], [place] [address] 26 Mar, 2013 [facility] [address] [id number] [address] [place] [address], [place] [address] 20 Mar, 2013 [facility] [address] [id number] [address] [place] [address], [place] [address] 17 Mar, 2013 [facility] [address] [id number] [address] [place] [address], [place] [address] 16 Mar, 2013 [facility] [address] [id number] [address] [place] [address], [place] [address] 05 Mar, 2013 [facility] [address] [id number] [address] [place] [address], [place] [address] 27 Feb, 2013 [facility] [address] [id number] [address] [place] [address], [place] [address] Feb, [facility] [address] [id number] [address] [place] [address], [place] [address] Feb, [facility] [address] [id number] [address] [place] [address], [place] [address] Feb, [facility] [address] [id number] [address] [place] [address], [place] [address] Jan, [facility] [address] [id number] [address] [place] [address], [place] [address] Jan, [facility] [address] [id number] [address] [place] [address], [place] [address] Jan, [facility] [address] [id number] [address] [place] [address], [place] [address] Jan, [facility] [address] [id number] [address] [place] [address], [place] [address] Jan, [facility] [address] [id number] [address] [place] [address], [place] [address] Dec, [facility] [address] [id number] [address] [place] [address], [place] [address] Dec, [facility] [address] [id number] [address] [place] [address], [place] [address] Dec, [facility] [address] [id number] [address] [place] [address], [place] [address] November, [facility] [address] [id number] [address] [place] [address], [place] [address] November, [facility] [address] [id number] [address] [place] [address], [place] [address] November, [facility] [address] [id number] [address] [place] [address], [place] [address] Oct, [facility] [address] [id number] [address] [place] [address], [place] [address] Oct, [facility] [address] [id number] [address] [place] [address], [place] [address] Oct, [facility] [address] [id number] [address] [place] [address], [place] [address] 25 Oct, 2012 [facility] [address] [id number] [address] [place] [address], [place] [address] 18 Oct, 2012 [facility] [address] [id number] [address] [place] [address], [place] [address] 17 Oct, 2012 [facility] [address] [id number] [address] [place] [address], [place] [address] 15 Oct, 2012 [facility] [address] [id number] [address] [place] [address], [place] [address] 26 Sep, 2012 [facility] [address] [id number] [address] [place] [address], [place] [address] Sep, [facility] [address] [id number] [address] [place] [address], [place] [address] 06 Sep, 2012 [facility] [address] [id number] [address] [place] [address], [place] [address] Sep, [facility] [address] [id number] [address] [place] [address], [place] [address] Aug, [facility] [address] [id number] [address] [place] [address], [place] [address] Aug, [facility] [address] [id number] [address] [place] [address], [place] [address] Aug, [facility] [address] [id number] [address] [place] [address], [place] [address] Aug, [facility] [address] [id number] [address] [place] [address], [place] [address] 18 Aug, 2012 [facility] [address] [id number] [address] [place] [address], [place] [address] 05 Aug, 2012 [facility] [address] [id number] [address] [place] [address], [place] [address] Jul, [facility] [address] [id number] [address] [place] [address], [place] [address] Jul, [facility] [address] [id number] [address] [place] [address], [place] [address] 29 Jul, 2012 [facility] [address] [id number] [address] [place] [address], [place] [address] Jul, [facility] [address] [id number] [address] [place] [address], [place] [address] Jul, [facility] [address] [id number] [address] [place] [address], [place] [address] Jul, [facility] [address] [id number] [address] [place] [address], [place] [address] Jun, [facility] [address] [id number] [address] [place] [address], [place] [address] Jun, [facility] [address] [id number] [address] [place] [address], [place] [address] Jun, [facility] [address] [id number] [address] [place] [address], [place] [address] Jun, [facility] [address] [id number] [address] [place] [address], [place] [address] Jun, [facility] [address] [id number] [address] [place] [address], [place] [address] Jun, [facility] [address] [id number] [address] [place] [address], [place] [address] May, [facility] [address] [id number] [address] [place] [address], [place] [address] May, [facility] [address] [id number] [address] [place] [address], [place] [address] May, [facility] [address] [id number] [address] [place] [address], [place] [address] May, [facility] [address] [id number] [address] [place] [address], [place] [address] May, [facility] [address] [id number] [address] [place] [address] May, [facility] [place] [facility] [address] [id number] [address] [place] [address], [place] [address] May, [facility] [place] [facility] [address] [id number] [address] [place] [id number] May, [facility] [place] [facility] [address] [id number] [address] [place] [address], [place] [address] May, [facility] [place] [facility] [address] [id number] [address] [place] [id number] May, [facility] [address] [id number] [address] [place] [address], [place] [address] Apr, [facility] [place] [facility] [address] [id number] [address] [place] [address], [place] [address] 31 Apr, 2012 [facility] [address] [id number] [address] [place] [id number] Apr, [facility] [place] [facility] [address] [id number] [address] [place] [address], [place] [address] 23 Apr, 2012 [facility] [address] [id number] [address] [place] [id number] 16 Apr, 2012 [facility] [place] [address] [id number] [address] [place] [address] 16 Apr, 2012 [facility] [place] [address] [id number] [address] [place] [id number] 15 Apr, 2012 [facility] [place] [address] [id number] [address] [place] [id number] 15 Apr, 2012 [facility] [place] [address] [id number] [address] [place] [id number] 05 Apr, 2012 [facility] [place] [address] [id number] [address] [place] [id number] 28 Mar, 2012 [facility] [address] [id number] [address] [place] [address], [place] [address] 26 Mar, 2012 [facility] [address] [id number] [address] [place] [address], [place] [address] 25 Mar, 2012 [facility] [address] [id number] [address] [place] [address], [place] [address] 19 Mar, 2012 [facility] [address] [id number] [address] [place] [address], [place] [address] 18 Mar, 2012 [facility] [address] [id number] [address] [place] [address], [place] [address] 05 Mar, 2012 [facility] [address] [id number] [address] [place] [address], [place] [address] Feb, [facility] [address] [id number] [address] [place] [address], [place] [address] Feb, [facility] [address] [id number] [address] [place] [address], [place] [address] Feb, [facility] [address] [id number] [address] [place] [address], [place] [address] Jan, [facility] [address] [id number] [address] [place] [address], [place] [address] Jan, [facility] [address] [id number] [address] [place] [address], [place] [address] Jan, [facility] [address] [id number] [address] [place] [address], [place] [address] Jan, [facility] [address] [id number] [address] [place] [address], [place] [address] Dec, [facility] [address] [id number] [address] [place] [address], [place] [address] November, [facility] [address] [id number] [address] [place] [address], [place] [address] November, [facility] [address] [id number] [address] [place] [address], [place] [address] November, [facility] [address] [id number] [address] [place] [address], [place] [address] November, [facility] [address] [id number] [address] [place] [address], [place] [address] November, [facility] [address] [id number] [address] [place] [address], [place] [address] November, [facility] [address] [id number] [address] [place] [address], [place] [address] Oct, [facility] [address] [id number] [address] [place] [address], [place] [address] Oct, [facility] [address] [id number] [address] [place] [address], [place] [address] Sep, [facility] [address] [id number] [address] [place] [address], [place] [address] Sep, [facility] [address] [id number] [address] [place] [address], [place] [address] Sep, [facility] [address] [id number] [address] [place] [address], [place] [address] Aug, [facility] [address] [id number] [address] [place] [address], [place] [address] Aug, [facility] [address] [id number] [address] [place] [address], [place] [address] Aug, [facility] [address] [id number] [address] [place] [address], [place] [address] Aug, [facility] [address] [id number] [address] [place] [address], [place] [address] Aug, [facility] [address] [id number] [address] [place] [address], [place] [address] Aug, [facility] [address] [id number] [address] [place] [address], [place] [address] Jul, [facility] [address] [id number] [address] [place] [address], [place] [address] Jul, [facility] [address] [id number] [address] [place] [address], [place] [address] 22 Jul, 2011 [facility] [address] [id number] [address] [place] [address], [place] [address] Jul, [facility] [address] [id number] [address] [place] [address], [place] [address] 18 Jul, 2011 [facility] [address] [id number] [address] [place] [address], [place] [address] Jul, [facility] [address] [id number] [address] [place] [address], [place] [address] 17 Jul, 2011 [facility] [address] [id number] [address] [place] [address], [place] [address] Jul, [facility] [address] [id number] [address] [place] [address], [place] [address] Jul, [facility] [address] [id number] [address] [place] [address], [place] [address] Jul, [facility] [address] [id number] [address] [place] [address], [place] [address] Jun, [facility] [address] [id number] [address] [place] [address], [place] [address] Jun, [facility] [address] [id number] [address] [place] [address], [place] [address] Jun, [facility] [address] [id number] [address] [place] [address], [place] [address] Jun, [facility] [address] [id number] [address] [place] [address], [place] [address] May, [facility] [address] [id number] [address] [place] [address], [place] [address] 29 May, 2011 [facility] [address] [id number] [address] [place] [address], [place] [address] May, [facility] [address] [id number] [address] [place] [address], [place] [address] 08 May, 2011 [facility] [address] [id number] [address] [place] [address], [place] [address] 31 Apr, 2011 [facility] [address] [id number] [address] [place] [address], [place] [address] 31 Apr, 2011 [facility] [address] [id number] [address] [place] [address], [place] [address] November, [facility] [address] [id number] [address] [place] [address], [place] [address] 18 Oct, 2010 [facility] [address] [id number] [address] [place] [address], [place] [address] 17 Aug, 2010 [facility] [address] [id number] [address] [place] [address], [place] [address] 28 Jun, 2010 [facility] [address] [id number] [address] [place] [address], [place] [address] 28 Jun, 2010 [facility] [address] [id number] [address] [place] [address], [place] [address] 27 Jun, 2010 [facility] [address] [id number] [address] [place] [address], [place] [address] 03 Jun, 2010 [facility] [address] [id number] [address] [place] [address], [place] [address] 29 May, 2010 [facility] [address] [id number] [address] [place] [address], [place] [address] 27 Apr, 2010 [facility] [address] [id number] [address] [place] [address], [place] [address] 13 Oct, 2009 [facility] [address] [id number] [address] [place] [address], [place] [address] 13 Aug, 2009 [facility] [address] [id number] [address] [place] [address], [place] [address] Jul, [facility] [address] [id number] [address] [place] [address], [place] [address] 22 Jun, 2009 [facility] [address] [id number] [address] [place] [address] 16 Jun, 2009 [facility] [address] [facility] [id number] [address] [place] [id number] 14 Jun, 2009 [facility] [address] [facility] [id number] [address] [place] [id number] 14 Jun, 2009 [facility] [address] [facility] [id number] [address] [place] [address] May, [facility] [address] [facility] [id number] [address] [place] [id number] Apr, [facility] [address] [facility] [id number] [address] [place] [id number] 15 Mar, 2009 [facility] [address] [facility] [id number] [address] [place] [id number] 14 Mar, 2009 [facility] [address] [facility] [id number] [address] [place] [id number] 11 Dec, 2008 IMMUNIZATIONS No Known Immunizations [...]
--- OUTSIDE RECORDS SUMMARY | 2019-09-01 05:16 | XMS REPORT ---
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 [id number] [address] [place] [address], [place] [address] Jun, [facility] [place] [facility] [address] [id number] [address] [place] [address], [place] [address] 19 Jun, 2014 [facility] [address] [id number] [address] [place] [address], [place] [address] 16 Jun, 2014 [facility] [place] [facility] [address] [id number] [address] [place] [address] [address] Jun, [facility] [address] [id number] [address] [place] [address], [place] [address] Jun, [facility] [place] [facility] [address] [id number] [address] [place] [address], [place] [address] Jun, [facility] [address] [id number] [address] [place] [address], [place] [address] Jun, [facility] [place] [facility] [address] [id number] [address] [place] [address], [place] [address] Jun, [facility] [address] [id number] [address] [place] [address], [place] [address] Jun, [facility] [address] [id number] [address] [place] [address], [place] [address] Jun, [facility] [address] [id number] [address] [place] [address], [place] [address] Jun, [facility] [place] [facility] [address] [id number] [address] [place] [address], [place] [address] Jun, [facility] [address] [id number] [address] [place] [address], [place] [address] Jun, [facility] [place] [facility] [address] [id number] [address] [place] [address], [place] [address] Jun, [facility] [place] [facility] [address] [id number] [address] [place] [address], [place] [address] Jun, [facility] [place] [facility] [address] [id number] [address] [place] [address], [place] [address] May, [facility] [place] [facility] [address] [id number] [address] [place] [address], [place] [address] May, [facility] [place] [facility] [address] [id number] [address] [place] [address], [place] [address] May, [facility] [place] [facility] [address] [id number] [address] [place] [address], [place] [address] May, [facility] [place] [facility] [address] [id number] [address] [place] [address], [place] [address] Apr, [facility] [address] [id number] [address] [place] [address], [place] [address] Apr, [facility] [place] [facility] [address] [id number] [address] [place] [address], [place] [address] Apr, [facility] [address] [id number] [address] [place] [address], [place] [address] Apr, [facility] [place] [facility] [address] [id number] [address] [place] [address], [place] [address] Apr, [facility] [address] [id number] [address] [place] [address], [place] [address] Apr, [facility] [place] [facility] [address] [id number] [address] [place] [address], [place] [address] Apr, [facility] [address] [id number] [address] [place] [address], [place] [address] Apr, [facility] [place] [facility] [address] [id number] [address] [place] [address], [place] [address] Apr, [facility] [place] [facility] [address] [id number] [address] [place] [address], [place] [address] Apr, [facility] [address] [id number] [address] [place] [address], [place] [address] 29 Mar, 2013 [facility] [place] [facility] [address] [id number] [address] [place] [address], [place] [address] 29 Sep, 2013 [facility] [place] [facility] [address] [id number] [address] [place] [address], [place] [address] 29 Sep, 2013 [facility] [place] [facility] [address] [id number] [address] [place] [address], [place] [address] 29 Mar, 2013 [facility] [place] [facility] [address] [id number] [address] [place] [address], [place] [address] 10 Mar, 2013 [facility] [place] [facility] [address] [id number] [address] [place] [address], [place] [address] 10 Mar, 2013 [facility] [place] [facility] [address] [id number] [address] [place] [address], [place] [address] 04 Mar, 2013 [facility] [address] [id number] [address] [place] [address], [place] [address] 04 Mar, 2013 [facility] [address] [id number] [address] [place] [address], [place] [address] Mar, 2013 [facility] [address] [id number] [address] [place] [address], [place] [address] Mar, 2013 [facility] [address] [id number] [address] [place] [address], [place] [address] Mar, [facility] [address] [id number] [address] [place] [address], [place] [address] Mar, [facility] [address] [id number] [address] [place] [address], [place] [address] Feb, [facility] [address] [id number] [address] [place] [address], [place] [address] Feb, [facility] [address] [id number] [address] [place] [address], [place] [address] Jan, [facility] [address] [id number] [address] [place] [address], [place] [address] Jan, [facility] [address] [id number] [address] [place] [address], [place] [address] Jan, [facility] [address] [id number] [address] [place] [address], [place] [address] Jan, [facility] [address] [id number] [address] [place] [address], [place] [address] Dec, [facility] [place] [facility] [address] [id number] [address] [place] [address], [place] [address] Dec, [facility] [address] [id number] [address] [place] [address], [place] [address] 18 Dec, 2013 [facility] [place] [facility] [address] [id number] [address] [place] [address], [place] [address] Dec, [facility] [address] [id number] [address] [place] [address], [place] [address] Dec, [facility] [address] [id number] [address] [place] [address], [place] [address] Dec, [facility] [address] [id number] [address] [place] [address], [place] [address] November, [facility] [address] [id number] [address] [place] [address], [place] [address] November, [facility] [address] [id number] [address] [place] [address], [place] [address] November, [facility] [address] [id number] [address] [place] [address], [place] [address] November, [facility] [address] [id number] [address] [place] [address], [place] [address] November, [facility] [address] [id number] [address] [place] [address], [place] [address] November, [facility] [address] [place] [id number] November, [facility] [address] [id number] [address] [place] [address], [place] [address] November, [facility] [address] [id number] [address] [place] [address], [place] [address] November, [facility] [address] [id number] [address] [place] [address], [place] [address] November, [facility] [address] [id number] [address] [place] [address], [place] [address] November, [facility] [address] [id number] [address] [place] [address], [place] [address] November, [facility] [address] [id number] [address] [place] [address], [place] [address] Oct, [facility] [address] [id number] [address] [place] [address], [place] [address] Oct, [facility] [address] [id number] [facility] [place] [address] Oct, [facility] [address] [id number] [address] [place] [address], [place] [address] Oct, [facility] [address] [id number] [address] [place] [address], [place] [address] Oct, [facility] [address] [id number] [address] [place] [address], [place] [address] Oct, [facility] [address] [id number] [address] [place] [address], [place] [address] Oct, [facility] [address] [id number] [address] [place] [address], [place] [address] Oct, [facility] [address] [id number] [address] [place] [address], [place] [address] Oct, [facility] [address] [id number] [address] [place] [address], [place] [address] Oct, [facility] [address] [id number] [address] [place] [address], [place] [address] Oct, [facility] [address] [id number] [address] [place] [address], [place] [address] Oct, [facility] [address] [id number] [address] [place] [address], [place] [address] Oct, [facility] [address] [id number] [address] [place] [address], [place] [address] Oct, [facility] [address] [id number] [address] [place] [address], [place] [address] Oct, [facility] [address] [id number] [address] [place] [address], [place] [address] Sep, [facility] [address] [id number] [address] [place] [address], [place] [address] Sep, [facility] [address] [id number] [facility] [place] [address] Sep, [facility] [address] [id number] [address] [place] [address], [place] [address] Sep, [facility] [address] [id number] [facility] [place] [address] Aug, [facility] [address] [id number] [address] [place] [address], [place] [address] Aug, [facility] [address] [id number] [address] [place] [address], [place] [address] Aug, [facility] [address] [id number] [address] [place] [address], [place] [address] Aug, [facility] [address] [id number] [address] [place] [address], [place] [address] Jul, [facility] [address] [id number] [address] [place] [address], [place] [address] Jul, [facility] [address] [id number] [address] [place] [address], [place] [address] Jul, [facility] [address] [id number] [address] [place] [address], [place] [address] Jul, [facility] [address] [id number] [address] [place] [address], [place] [address] Jul, [facility] [address] [id number] [address] [place] [address], [place] [address] Jul, [facility] [address] [id number] [address] [place] [address], [place] [address] Jul, [facility] [address] [id number] [address] [place] [address], [place] [address] Jul, [facility] [address] [id number] [address] [place] [address], [place] [address] Jul, [facility] [address] [id number] [address] [place] [address], [place] [address] Jul, [facility] [address] [id number] [address] [place] [address], [place] [address] Jul, [facility] [address] [id number] [address] [place] [address], [place] [address] Jul, [facility] [address] [id number] [address] [place] [address], [place] [address] Jul, [facility] [address] [id number] [address] [place] [address], [place] [address] Jul, [facility] [address] [id number] [address] [place] [address], [place] [address] Jun, [facility] [address] [id number] [address] [place] [address], [place] [address] Jun, [facility] [address] [id number] [address] [place] [address], [place] [address] Jun, [facility] [address] [id number] [address] [place] [address], [place] [address] Jun, [facility] [address] [id number] [address] [place] [address], [place] [address] May, [facility] [address] [id number] [address] [place] [address], [place] [address] May, [facility] [address] [id number] [address] [place] [address], [place] [address] May, [facility] [address] [id number] [address] [place] [address] May, [facility] [address] [id number] [address] [place] [address], [place] [address] May, [facility] [address] [id number] [address] [place] [address], [place] [address] May, [facility] [address] [id number] [address] [place] [address], [place] [address] May, [facility] [address] [id number] [address] [place] [address], [place] [address] 05 May, 2013 [facility] [address] [id number] [address] [place] [address], [place] [address] Apr, [facility] [address] [id number] [address] [place] [address], [place] [address] Apr, [facility] [address] [id number] [address] [place] [address], [place] [address] Apr, [facility] [address] [id number] [address] [place] [address], [place] [address] Apr, [facility] [address] [id number] [address] [place] [address], [place] [address] Apr, [facility] [address] [id number] [address] [place] [address], [place] [address] Apr, [facility] [address] [id number] [address] [place] [address], [place] [address] 30 Mar, 2013 [facility] [address] [id number] [address] [place] [address], [place] [address] 26 Mar, 2013 [facility] [address] [id number] [address] [place] [address], [place] [address] 20 Mar, 2013 [facility] [address] [id number] [address] [place] [address], [place] [address] 17 Mar, 2013 [facility] [address] [id number] [address] [place] [address], [place] [address] 16 Mar, 2013 [facility] [address] [id number] [address] [place] [address], [place] [address] 05 Mar, 2013 [facility] [address] [id number] [address] [place] [address], [place] [address] 27 Feb, 2013 [facility] [address] [id number] [address] [place] [address], [place] [address] Feb, [facility] [address] [id number] [address] [place] [address], [place] [address] Feb, [facility] [address] [id number] [address] [place] [address], [place] [address] Feb, [facility] [address] [id number] [address] [place] [address], [place] [address] Jan, [facility] [address] [id number] [address] [place] [address], [place] [address] Jan, [facility] [address] [id number] [address] [place] [address], [place] [address] Jan, [facility] [address] [id number] [address] [place] [address], [place] [address] Jan, [facility] [address] [id number] [address] [place] [address], [place] [address] Jan, [facility] [address] [id number] [address] [place] [address], [place] [address] Dec, [facility] [address] [id number] [address] [place] [address], [place] [address] Dec, [facility] [address] [id number] [address] [place] [address], [place] [address] Dec, [facility] [address] [id number] [address] [place] [address], [place] [address] November, [facility] [address] [id number] [address] [place] [address], [place] [address] November, [facility] [address] [id number] [address] [place] [address], [place] [address] November, [facility] [address] [id number] [address] [place] [address], [place] [address] Oct, [facility] [address] [id number] [address] [place] [address], [place] [address] Oct, [facility] [address] [id number] [address] [place] [address], [place] [address] Oct, [facility] [address] [id number] [address] [place] [address], [place] [address] 25 Oct, 2012 [facility] [address] [id number] [address] [place] [address], [place] [address] 18 Oct, 2012 [facility] [address] [id number] [address] [place] [address], [place] [address] 17 Oct, 2012 [facility] [address] [id number] [address] [place] [address], [place] [address] 15 Oct, 2012 [facility] [address] [id number] [address] [place] [address], [place] [address] 26 Sep, 2012 [facility] [address] [id number] [address] [place] [address], [place] [address] Sep, [facility] [address] [id number] [address] [place] [address], [place] [address] 06 Sep, 2012 [facility] [address] [id number] [address] [place] [address], [place] [address] Sep, [facility] [address] [id number] [address] [place] [address], [place] [address] Aug, [facility] [address] [id number] [address] [place] [address], [place] [address] Aug, [facility] [address] [id number] [address] [place] [address], [place] [address] Aug, [facility] [address] [id number] [address] [place] [address], [place] [address] Aug, [facility] [address] [id number] [address] [place] [address], [place] [address] 18 Aug, 2012 [facility] [address] [id number] [address] [place] [address], [place] [address] 05 Aug, 2012 [facility] [address] [id number] [address] [place] [address], [place] [address] Jul, [facility] [address] [id number] [address] [place] [address], [place] [address] Jul, [facility] [address] [id number] [address] [place] [address], [place] [address] 29 Jul, 2012 [facility] [address] [id number] [address] [place] [address], [place] [address] Jul, [facility] [address] [id number] [address] [place] [address], [place] [address] Jul, [facility] [address] [id number] [address] [place] [address], [place] [address] Jul, [facility] [address] [id number] [address] [place] [address], [place] [address] Jun, [facility] [address] [id number] [address] [place] [address], [place] [address] Jun, [facility] [address] [id number] [address] [place] [address], [place] [address] Jun, [facility] [address] [id number] [address] [place] [address], [place] [address] Jun, [facility] [address] [id number] [address] [place] [address], [place] [address] Jun, [facility] [address] [id number] [address] [place] [address], [place] [address] Jun, [facility] [address] [id number] [address] [place] [address], [place] [address] May, [facility] [address] [id number] [address] [place] [address], [place] [address] May, [facility] [address] [id number] [address] [place] [address], [place] [address] May, [facility] [address] [id number] [address] [place] [address], [place] [address] May, [facility] [address] [id number] [address] [place] [address], [place] [address] May, [facility] [address] [id number] [address] [place] [address] May, [facility] [address] [id number] [address] [place] [address], [place] [address] May, [facility] [address] [id number] [address] [place] [address] May, [facility] [address] [id number] [address] [place] [address], [place] [address] May, [facility] [address] [id number] [address] [place] [address] May, [facility] [address] [id number] [address] [place] [address], [place] [address] Apr, [facility] [address] [id number] [address] [place] [address], [place] [address] 31 Apr, 2012 [facility] [address] [id number] [address] [place] [address] Apr, [facility] [address] [id number] [address] [place] [address], [place] [address] 23 Apr, 2012 [facility] [address] [id number] [address] [place] [address] 16 Apr, 2012 [facility] [address] [id number] [address] [place] [address] 16 Apr, 2012 [facility] [address] [id number] [address] [place] [address] 15 Apr, 2012 [facility] [address] [id number] [address] [place] [address] 15 Apr, 2012 [facility] [address] [id number] [address] [place] [address] 05 Apr, 2012 [facility] [address] [id number] [address] [place] [address] 28 Mar, 2012 [facility] [address] [id number] [address] [place] [address], [place] [address] 26 Mar, 2012 [facility] [address] [id number] [address] [place] [address], [place] [address] 25 Mar, 2012 [facility] [address] [id number] [address] [place] [address], [place] [address] 19 Mar, 2012 [facility] [address] [id number] [address] [place] [address], [place] [address] 18 Mar, 2012 [facility] [address] [id number] [address] [place] [address], [place] [address] 05 Mar, 2012 [facility] [address] [id number] [address] [place] [address], [place] [address] Feb, [facility] [address] [id number] [address] [place] [address], [place] [address] Feb, [facility] [address] [id number] [address] [place] [address], [place] [address] Feb, [facility] [address] [id number] [address] [place] [address], [place] [address] Jan, [facility] [address] [id number] [address] [place] [address], [place] [address] Jan, [facility] [address] [id number] [address] [place] [address], [place] [address] Jan, [facility] [address] [id number] [address] [place] [address], [place] [address] Jan, [facility] [address] [id number] [address] [place] [address], [place] [address] Dec, [facility] [address] [id number] [address] [place] [address], [place] [address] November, [facility] [address] [id number] [address] [place] [address], [place] [address] November, [facility] [address] [id number] [address] [place] [address], [place] [address] November, [facility] [address] [id number] [address] [place] [address], [place] [address] November, [facility] [address] [id number] [address] [place] [address], [place] [address] November, [facility] [address] [id number] [address] [place] [address], [place] [address] November, [facility] [address] [id number] [address] [place] [address], [place] [address] Oct, [facility] [address] [id number] [address] [place] [address], [place] [address] Oct, [facility] [address] [id number] [address] [place] [address], [place] [address] Sep, [facility] [address] [id number] [address] [place] [address], [place] [address] Sep, [facility] [address] [id number] [address] [place] [address], [place] [address] Sep, [facility] [address] [id number] [address] [place] [address], [place] [address] Aug, [facility] [address] [id number] [address] [place] [address], [place] [address] Aug, [facility] [address] [id number] [address] [place] [address], [place] [address] Aug, [facility] [address] [id number] [address] [place] [address], [place] [address] Aug, [facility] [address] [id number] [address] [place] [address], [place] [address] Aug, [facility] [address] [id number] [address] [place] [address], [place] [address] Aug, [facility] [address] [id number] [address] [place] [address], [place] [address] Jul, [facility] [address] [id number] [address] [place] [address], [place] [address] Jul, [facility] [address] [id number] [address] [place] [address], [place] [address] 22 Jul, 2011 [facility] [address] [id number] [address] [place] [address], [place] [address] Jul, [facility] [address] [id number] [address] [place] [address], [place] [address] 18 Jul, 2011 [facility] [address] [id number] [address] [place] [address], [place] [address] Jul, [facility] [address] [id number] [address] [place] [address], [place] [address] 17 Jul, 2011 [facility] [address] [id number] [address] [place] [address], [place] [address] Jul, [facility] [address] [id number] [address] [place] [address], [place] [address] Jul, [facility] [address] [id number] [address] [place] [address], [place] [address] Jul, [facility] [address] [id number] [address] [place] [address], [place] [address] Jun, [facility] [address] [id number] [address] [place] [address], [place] [address] Jun, [facility] [address] [id number] [address] [place] [address], [place] [address] Jun, [facility] [address] [id number] [address] [place] [address], [place] [address] Jun, [facility] [address] [id number] [address] [place] [address], [place] [address] May, [facility] [address] [id number] [address] [place] [address], [place] [address] 29 May, 2011 [facility] [address] [id number] [address] [place] [address], [place] [address] May, [facility] [address] [id number] [address] [place] [address], [place] [address] 08 May, 2011 [facility] [address] [id number] [address] [place] [address], [place] [address] 31 Apr, 2011 [facility] [address] [id number] [address] [place] [address], [place] [address] 31 Apr, 2011 [facility] [address] [id number] [address] [place] [address], [place] [address] November, [facility] [address] [id number] [address] [place] [address], [place] [address] 18 Oct, 2010 [facility] [address] [id number] [address] [place] [address], [place] [address] 17 Aug, 2010 [facility] [address] [id number] [address] [place] [address], [place] [address] 28 Jun, 2010 [facility] [address] [id number] [address] [place] [address], [place] [address] 28 Jun, 2010 [facility] [address] [id number] [address] [place] [address], [place] [address] 27 Jun, 2010 [facility] [address] [id number] [address] [place] [address], [place] [address] 03 Jun, 2010 [facility] [address] [id number] [address] [place] [address], [place] [address] 29 May, 2010 [facility] [address] [id number] [address] [place] [address], [place] [address] 27 Apr, 2010 [facility] [address] [id number] [address] [place] [address], [place] [address] 13 Oct, 2009 [facility] [address] [id number] [address] [place] [address], [place] [address] 13 Aug, 2009 [facility] [address] [id number] [address] [place] [address], [place] [address] Jul, [facility] [address] [id number] [address] [place] [address], [place] [address] 22 Jun, 2009 [facility] [address] [id number] [address] [place] [address] [address], [address] [facility] [address] [facility] [id number] [address] [place] [address] [address], [address] [facility] [address] [facility] [place] [id number] [address] [place] [address] [address], [address] [facility] [address] [facility] [place] [id number] [address] [place] [address] May, [facility] [address] [facility] [place] [id number] [address] [place] [address] Apr, [facility] [address] [facility] [place] [id number] [address] [place] [id number] [address] Mar, [address] [facility] [address] [facility] [place] [id number] [address] [place] [phone] 14 Mar, [address] [facility] [address] [facility] [place] [id number] [address] [place] [id number] 11 Dec, 2008 IMMUNIZATIONS No Known Immunizations SOCIAL HISTORY Never Assessed REASON FOR VISIT PLAN OF CARE VITAL SIGNS Height 65 in 2014-09-20 Weight 198.12 lbs 2014-09-20 Temperature 97.9 degrees Fahrenheit 2014-09-20 Heart Rate 76 bpm 2014-09-20 Respiratory Rate 16 2014-09-20 Blood pressure systolic 142 mmHg 2014-09-20 Blood pressure diastolic 84 mmHg 2014-09-20 MEDICATIONS Unknown Medications RESULTS No Results PROCEDURES Procedure Date Ordered Result Body Site GLYCATED HEMOGLOBIN TEST September 20, 2014 MICROALBUMIN, SEMIQUANT September 20, 2014 MICROALBUMIN, QUANTITATIVE September 20, 2014 X-RAY EXAM OF HIP September 20, 2014 INSTRUCTIONS MEDICATIONS ADMINISTERED No Known Medications [...]
--- OUTSIDE RECORDS SUMMARY | 2019-09-01 05:17 | XMS REPORT ---
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 [place] [address] Jun, [facility] [address] [id number] [address] [place] [address], [place] [address] Jun, [facility] [address] [id number] [address] [place] [address], [place] [address] Jun, [facility] [address] [id number] [address] [place] [address], [place] [address] Jun, [facility] [address] [id number] [address] [place] [address], [place] [address] Jun, [facility] [address] [id number] [address] [place] [address], [place] [address] Jun, [facility] [address] [id number] [address] [place] [address], [place] [address] Jun, [facility] [address] [id number] [address] [place] [address], [place] [address] Jun, [facility] [address] [id number] [address] [place] [address], [place] [address] Jun, [facility] [address] [id number] [address] [place] [address], [place] [address] May, [facility] [address] [id number] [address] [place] [address], [place] [address] May, [facility] [address] [id number] [address] [place] [address], [place] [address] May, [facility] [address] [id number] [address] [place] [address], [place] [address] May, [facility] [address] [id number] [address] [place] [address], [place] [address] Apr, [facility] [address] [id number] [address] [place] [address], [place] [address] Apr, [facility] [address] [id number] [address] [place] [address], [place] [address] Apr, [facility] [address] [id number] [address] [place] [address], [place] [address] Apr, [facility] [address] [id number] [address] [place] [address], [place] [address] Apr, [facility] [address] [id number] [address] [place] [address], [place] [address] Apr, [facility] [address] [id number] [address] [place] [address], [place] [address] Apr, [facility] [address] [id number] [address] [place] [address], [place] [address] Apr, [facility] [address] [id number] [address] [place] [address], [place] [address] Apr, [facility] [address] [id number] [address] [place] [address], [place] [address] Apr, [facility] [address] [id number] [address] [place] [address], [place] [address] 29 Mar, 2013 [facility] [address] [id number] [address] [place] [address], [place] [address] 29 Sep, 2013 [facility] [address] [id number] [address] [place] [address], [place] [address] 29 Sep, 2013 [facility] [address] [id number] [address] [place] [address], [place] [address] 29 Mar, 2013 [facility] [address] [id number] [address] [place] [address], [place] [address] 10 Mar, 2013 [facility] [address] [id number] [address] [place] [address], [place] [address] 10 Mar, 2013 [facility] [address] [id number] [address] [place] [address], [place] [address] 04 Mar, 2013 [facility] [address] [id number] [address] [place] [address], [place] [address] 04 Mar, 2013 [facility] [address] [id number] [address] [place] [address], [place] [address] Mar, 2013 [facility] [address] [id number] [address] [place] [address], [place] [address] Mar, 2013 [facility] [address] [id number] [address] [place] [address], [place] [address] Mar, [facility] [address] [id number] [address] [place] [address], [place] [address] Mar, [facility] [address] [id number] [address] [place] [address], [place] [address] Feb, [facility] [address] [id number] [address] [place] [address], [place] [address] Feb, [facility] [address] [id number] [address] [place] [address], [place] [address] Jan, [facility] [address] [id number] [address] [place] [address], [place] [address] Jan, [facility] [address] [id number] [address] [place] [address], [place] [address] Jan, [facility] [address] [id number] [address] [place] [address], [place] [address] Jan, [facility] [address] [id number] [address] [place] [address], [place] [address] Dec, [facility] [address] [id number] [address] [place] [address], [place] [address] Dec, [facility] [address] [id number] [address] [place] [address], [place] [address] 18 Dec, 2013 [facility] [address] [id number] [address] [place] [address], [place] [address] Dec, [facility] [address] [id number] [address] [place] [address], [place] [address] Dec, [facility] [address] [id number] [address] [place] [address], [place] [address] Dec, [facility] [address] [id number] [address] [place] [address], [place] [address] November, [facility] [address] [id number] [address] [place] [address], [place] [address] November, [facility] [address] [id number] [address] [place] [address], [place] [address] November, [facility] [address] [id number] [address] [place] [address], [place] [address] November, [facility] [address] [id number] [address] [place] [address], [place] [address] November, [facility] [address] [id number] [address] [place] [address], [place] [address] November, [facility] [address] [place] [id number] November, [facility] [address] [id number] [address] [place] [address], [place] [address] November, [facility] [address] [id number] [address] [place] [address], [place] [address] November, [facility] [address] [id number] [address] [place] [address], [place] [address] November, [facility] [address] [id number] [address] [place] [address], [place] [address] November, [facility] [address] [id number] [address] [place] [address], [place] [address] November, [facility] [address] [id number] [address] [place] [address], [place] [address] Oct, [facility] [address] [id number] [address] [place] [address], [place] [address] Oct, [facility] [address] [id number] [facility] [place] [address] Oct, [facility] [address] [id number] [address] [place] [address], [place] [address] Oct, [facility] [address] [id number] [address] [place] [address], [place] [address] Oct, [facility] [address] [id number] [address] [place] [address], [place] [address] Oct, [facility] [address] [id number] [address] [place] [address], [place] [address] Oct, [facility] [address] [id number] [address] [place] [address], [place] [address] Oct, [facility] [address] [id number] [address] [place] [address], [place] [address] Oct, [facility] [address] [id number] [address] [place] [address], [place] [address] Oct, [facility] [address] [id number] [address] [place] [address], [place] [address] Oct, [facility] [address] [id number] [address] [place] [address], [place] [address] Oct, [facility] [address] [id number] [address] [place] [address], [place] [address] Oct, [facility] [address] [id number] [address] [place] [address], [place] [address] Oct, [facility] [address] [id number] [address] [place] [address], [place] [address] Oct, [facility] [address] [id number] [address] [place] [address], [place] [address] Sep, [facility] [address] [id number] [address] [place] [address], [place] [address] Sep, [facility] [address] [id number] [facility] [place] [address] Sep, [facility] [address] [id number] [address] [place] [address], [place] [address] Sep, [facility] [address] [id number] [facility] [place] [address] Aug, [facility] [address] [id number] [address] [place] [address], [place] [address] Aug, [facility] [address] [id number] [address] [place] [address], [place] [address] Aug, [facility] [address] [id number] [address] [place] [address], [place] [address] Aug, [facility] [address] [id number] [address] [place] [address], [place] [address] Jul, [facility] [address] [id number] [address] [place] [address], [place] [address] Jul, [facility] [address] [id number] [address] [place] [address], [place] [address] Jul, [facility] [address] [id number] [address] [place] [address], [place] [address] Jul, [facility] [address] [id number] [address] [place] [address], [place] [address] Jul, [facility] [address] [id number] [address] [place] [address], [place] [address] Jul, [facility] [address] [id number] [address] [place] [address], [place] [address] Jul, [facility] [address] [id number] [address] [place] [address], [place] [address] Jul, [facility] [address] [id number] [address] [place] [address], [place] [address] Jul, [facility] [address] [id number] [address] [place] [address], [place] [address] Jul, [facility] [address] [id number] [address] [place] [address], [place] [address] Jul, [facility] [address] [id number] [address] [place] [address], [place] [address] Jul, [facility] [address] [id number] [address] [place] [address], [place] [address] Jul, [facility] [address] [id number] [address] [place], [place] [address], [place] [address] Jul, [facility] [address] [id number] [address] [place] [address], [place] [address] Jun, [facility] [address] [id number] [address] [place] [address], [place] [address] Jun, [facility] [address] [id number] [address] [place] [address], [place] [address] Jun, [facility] [address] [id number] [address] [place] [address], [place] [address] Jun, [facility] [address] [id number] [address] [place] [address], [place] [address] May, [facility] [address] [id number] [address] [place] [address], [place] [address] May, [facility] [address] [id number] [address] [place] [address], [place] [address] May, [facility] [address] [id number] [address] [place] [phone] May, [facility] [address] [id number] [address] [place] [address], [place] [address] May, [facility] [address] [id number] [address] [place] [address], [place] [address] May, [facility] [address] [id number] [address] [place] [address], [place] [address] May, [facility] [address] [id number] [address] [place] [address], [place] [address] 05 May, 2013 [facility] [address] [id number] [address] [place] [address], [place] [address] Apr, [facility] [address] [id number] [address] [place] [address], [place] [address] Apr, [facility] [address] [id number] [address] [place] [address], [place] [address] Apr, [facility] [address] [id number] [address] [place] [address], [place] [address] Apr, [facility] [address] [id number] [address] [place] [address], [place] [address] Apr, [facility] [address] [id number] [address] [place] [address], [place] [address] Apr, [facility] [address] [id number] [address] [place] [address], [place] [address] 30 Mar, 2013 [facility] [address] [id number] [address] [place] [address], [place] [address] 26 Mar, 2013 [facility] [address] [id number] [address] [place] [address], [place] [address] 20 Mar, 2013 [facility] [address] [id number] [address] [place] [address], [place] [address] 17 Mar, 2013 [facility] [address] [id number] [address] [place] [address], [place] [address] 16 Mar, 2013 [facility] [address] [id number] [address] [place] [address], [place] [address] 05 Mar, 2013 [facility] [address] [id number] [address] [place] [address], [place] [address] 27 Feb, 2013 [facility] [address] [id number] [address] [place] [address], [place] [address] Feb, [facility] [address] [id number] [address] [place] [address], [place] [address] Feb, [facility] [address] [id number] [address] [place] [address], [place] [address] Feb, [facility] [address] [id number] [address] [place] [address], [place] [address] Jan, [facility] [address] [id number] [address] [place] [address], [place] [address] Jan, [facility] [address] [id number] [address] [place] [address], [place] [address] Jan, [facility] [address] [id number] [address] [place] [address], [place] [address] Jan, [facility] [address] [id number] [address] [place] [address], [place] [address] Jan, [facility] [address] [id number] [address] [place] [address], [place] [address] Dec, [facility] [address] [id number] [address] [place] [address], [place] [address] Dec, [facility] [address] [id number] [address] [place] [address], [place] [address] Dec, [facility] [address] [id number] [address] [place] [address], [place] [address] November, [facility] [address] [id number] [address] [place] [address], [place] [address] November, [facility] [address] [id number] [address] [place] [address], [place] [address] November, [facility] [address] [id number] [address] [place] [address], [place] [address] Oct, [facility] [address] [id number] [address] [place] [address], [place] [address] Oct, [facility] [address] [id number] [address] [place] [address], [place] [address] Oct, [facility] [address] [id number] [address] [place] [address], [place] [address] 25 Oct, 2012 [facility] [address] [id number] [address] [place] [address], [place] [address] 18 Oct, 2012 [facility] [address] [id number] [address] [place] [address], [place] [address] 17 Oct, 2012 [facility] [address] [id number] [address] [place] [address], [place] [address] 15 Oct, 2012 [facility] [address] [id number] [address] [place] [address], [place] [address] 26 Sep, 2012 [facility] [address] [id number] [address] [place] [address], [place] [address] Sep, [facility] [address] [id number] [address] [place] [address], [place] [address] 06 Sep, 2012 [facility] [address] [id number] [address] [place] [address], [place] [address] Sep, [facility] [address] [id number] [address] [place] [address], [place] [address] Aug, [facility] [address] [id number] [address] [place] [address], [place] [address] Aug, [facility] [address] [id number] [address] [place] [address], [place] [address] Aug, [facility] [address] [id number] [address] [place] [address], [place] [address] Aug, [facility] [address] [id number] [address] [place] [address], [place] [address] 18 Aug, 2012 [facility] [address] [id number] [address] [place] [address], [place] [address] 05 Aug, 2012 [facility] [address] [id number] [address] [place] [address], [place] [address] Jul, [facility] [address] [id number] [address] [place] [address], [place] [address] Jul, [facility] [address] [id number] [address] [place] [address], [place] [address] 29 Jul, 2012 [facility] [address] [id number] [address] [place] [address], [place] [address] Jul, [facility] [address] [id number] [address] [place] [address], [place] [address] Jul, [facility] [address] [id number] [address] [place] [address], [place] [address] Jul, [facility] [address] [id number] [address] [place] [address], [place] [address] Jun, [facility] [address] [id number] [address] [place] [address], [place] [address] Jun, [facility] [address] [id number] [address] [place] [address], [place] [address] Jun, [facility] [address] [id number] [address] [place] [address], [place] [address] Jun, [facility] [address] [id number] [address] [place] [address], [place] [address] Jun, [facility] [address] [id number] [address] [place] [address], [place] [address] Jun, [facility] [address] [id number] [address] [place] [address], [place] [address] May, [facility] [address] [id number] [address] [place] [address], [place] [address] May, [facility] [address] [id number] [address] [place] [address], [place] [address] May, [facility] [address] [id number] [address] [place] [address], [place] [address] May, [facility] [address] [id number] [address] [place] [address], [place] [address] May, [facility] [address] [id number] [address] [place] [phone] May, [facility] [address] [id number] [address] [place] [address], [place] [address] May, [facility] [address] [id number] [address] [place] [address] May, [facility] [address] [id number] [address] [place] [address], [place] [address] May, [facility] [address] [id number] [address] [place] [address] May, [facility] [address] [id number] [address] [place] [address], [place] [address] Apr, [facility] [address] [id number] [address] [place] [address], [place] [address] 31 Apr, 2012 [facility] [address] [id number] [address] [place] [phone] Apr, [facility] [address] [id number] [address] [place] [address], [place] [address] 23 Apr, 2012 [facility] [address] [id number] [address] [place] [address] 16 Apr, 2012 [facility] [address] [id number] [address] [place] [phone] 16 Apr, 2012 [facility] [address] [id number] [address] [place] [id number] 15 Apr, 2012 [facility] [address] [id number] [address] [place] [id number] 15 Apr, 2012 [facility] [address] [id number] [address] [place] [address] 05 Apr, 2012 [facility] [address] [id number] [address] [place] [id number] 28 Mar, 2012 [facility] [address] [id number] [address] [place] [address], [place] [address] 26 Mar, 2012 [facility] [address] [id number] [address] [place] [address], [place] [address] 25 Mar, 2012 [facility] [address] [id number] [address] [place] [address], [place] [address] 19 Mar, 2012 [facility] [address] [id number] [address] [place] [address], [place] [address] 18 Mar, 2012 [facility] [address] [id number] [address] [place] [address], [place] [address] 05 Mar, 2012 [facility] [address] [id number] [address] [place] [address], [place] [address] Feb, [facility] [address] [id number] [address] [place] [address], [place] [address] Feb, [facility] [address] [id number] [address] [place] [address], [place] [address] Feb, [facility] [address] [id number] [address] [place] [address], [place] [address] Jan, [facility] [address] [id number] [address] [place] [address], [place] [address] Jan, [facility] [address] [id number] [address] [place] [address], [place] [address] Jan, [facility] [address] [id number] [address] [place] [address], [place] [address] Jan, [facility] [address] [id number] [address] [place] [address], [place] [address] Dec, [facility] [address] [id number] [address] [place] [address], [place] [address] November, [facility] [address] [id number] [address] [place] [address], [place] [address] November, [facility] [address] [id number] [address] [place] [address], [place] [address] November, [facility] [address] [id number] [address] [place] [address], [place] [address] November, [facility] [address] [id number] [address] [place] [address], [place] [address] November, [facility] [address] [id number] [address] [place] [address], [place] [address] November, [facility] [address] [id number] [address] [place] [address], [place] [address] Oct, [facility] [address] [id number] [address] [place] [address], [place] [address] Oct, [facility] [address] [id number] [address] [place] [address], [place] [address] Sep, [facility] [address] [id number] [address] [place] [address], [place] [address] Sep, [facility] [address] [id number] [address] [place] [address], [place] [address] Sep, [facility] [address] [id number] [address] [place] [address], [place] [address] Aug, [facility] [address] [id number] [address] [place] [address], [place] [address] Aug, [facility] [address] [id number] [address] [place] [address], [place] [address] Aug, [facility] [address] [id number] [address] [place] [address], [place] [address] Aug, [facility] [address] [id number] [address] [place] [address], [place] [address] Aug, [facility] [address] [id number] [address] [place] [address], [place] [address] Aug, [facility] [address] [id number] [address] [place] [address], [place] [address] Jul, [facility] [address] [id number] [address] [place] [address], [place] [address] Jul, [facility] [address] [id number] [address] [place] [address], [place] [address] 22 Jul, 2011 [facility] [address] [id number] [address] [place] [address], [place] [address] Jul, [facility] [address] [id number] [address] [place] [address], [place] [address] 18 Jul, 2011 [facility] [address] [id number] [address] [place] [address], [place] [address] Jul, [facility] [address] [id number] [address] [place] [address], [place] [address] 17 Jul, 2011 [facility] [address] [id number] [address] [place] [address], [place] [address] Jul, [facility] [address] [id number] [address] [place] [address], [place] [address] Jul, [facility] [address] [id number] [address] [place] [address], [place] [address] Jul, [facility] [address] [id number] [address] [place] [address], [place] [address] Jun, [facility] [address] [id number] [address] [place] [address], [place] [address] Jun, [facility] [address] [id number] [address] [place] [address], [place] [address] Jun, [facility] [address] [id number] [address] [place] [address], [place] [address] Jun, [facility] [address] [id number] [address] [place] [address], [place] [address] May, [facility] [address] [id number] [address] [place] [address], [place] [address] 29 May, 2011 [facility] [address] [id number] [address] [place] [address], [place] [address] May, [facility] [address] [id number] [address] [place] [address], [place] [address] 08 May, 2011 [facility] [address] [id number] [address] [place] [address], [place] [address] 31 Apr, 2011 [facility] [address] [id number] [address] [place] [address], [place] [address] 31 Apr, 2011 [facility] [address] [id number] [address] [place] [address], [place] [address] November, [facility] [address] [id number] [address] [place] [address], [place] [address] 18 Oct, 2010 [facility] [address] [id number] [address] [place] [address], [place] [address] 17 Aug, 2010 [facility] [address] [id number] [address] [place] [address], [place] [address] 28 Jun, 2010 [facility] [address] [id number] [address] [place] [address], [place] [address] 28 Jun, 2010 [facility] [address] [id number] [address] [place] [address], [place] [address] 27 Jun, 2010 [facility] [address] [id number] [address] [place] [address], [place] [address] 03 Jun, 2010 [facility] [address] [id number] [address] [place] [address], [place] [address] 29 May, 2010 [facility] [address] [id number] [address] [place] [address], [place] [address] 27 Apr, 2010 [facility] [address] [id number] [address] [place] [address], [place] [address] 13 Oct, 2009 [facility] [address] [id number] [address] [place] [address], [place] [address] 13 Aug, 2009 [facility] [address] [id number] [address] [place] [address], [place] [address] Jul, [facility] [address] [id number] [address] [place] [address], [place] [address] 22 Jun, 2009 [facility] [address] [id number] [address] [place] [id number] 16 Jun, 2009 [facility] [address] [id number] [address] [place] [id number] 14 Jun, 2009 [facility] [address] [id number] [address] [place] [id number] 14 Jun, 2009 [facility] [address] [id number] [address] [place] [id number] May, [facility] [address] [id number] [address] [place] [id number] 20 Apr, 2009 [facility] [address] [id number] [address] [place] [id number] 15 Mar, 2009 [facility] [address] [id number] [address] [place] [id number] 14 Mar, 2009 [facility] [address] [facility] [id number] [address] [place] [phone] Dec, IMMUNIZATIONS No Known Immunizations SOCIAL HISTORY Never Assessed REASON FOR VISIT PLAN OF CARE VITAL SIGNS Height 65 in 2014-09-12 Weight 197.12 lbs 2014-09-12 Temperature 98.1 degrees Fahrenheit 2014-09-12 Heart Rate 93 bpm 2014-09-12 Respiratory Rate 24 2014-09-12 Blood pressure systolic 120 mmHg 2014-09-12 Blood pressure diastolic 90 mmHg 2014-09-12 MEDICATIONS Unknown Medications RESULTS No Results PROCEDURES [...]
--- OUTSIDE RECORDS SUMMARY | 2019-09-01 05:17 | XMS REPORT ---
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 [id number] [address] [place] [address], [place] [address] Jun, [facility] [address] [id number] [address] [place] [address], [place] [address] Jun, [facility] [address] [id number] [address] [place] [address], [place] [address] Jun, [facility] [address] [id number] [address] [place] [address], [place] [address] Jun, [facility] [address] [id number] [address] [place] [address], [place] [address] Jun, [facility] [address] [id number] [address] [place] [address], [place] [address] May, [facility] [address] [id number] [address] [place] [address], [place] [address] May, [facility] [address] [id number] [address] [place] [address], [place] [address] May, [facility] [address] [id number] [address] [place] [address], [place] [address] May, [facility] [address] [id number] [address] [place] [address], [place] [address] Apr, [facility] [address] [id number] [address] [place] [address], [place] [address] Apr, [facility] [address] [id number] [address] [place] [address], [place] [address] Apr, [facility] [address] [id number] [address] [place] [address], [place] [address] Apr, [facility] [address] [id number] [address] [place] [address], [place] [address] Apr, [facility] [address] [id number] [address] [place] [address], [place] [address] Apr, [facility] [address] [id number] [address] [place] [address], [place] [address] Apr, [facility] [address] [id number] [address] [place] [address], [place] [address] Apr, [facility] [address] [id number] [address] [place] [address], [place] [address] Apr, [facility] [address] [id number] [address] [place] [address], [place] [address] Apr, [facility] [address] [id number] [address] [place] [address], [place] [address] 29 Mar, 2013 [facility] [address] [id number] [address] [place] [address], [place] [address] 29 Mar, 2013 [facility] [address] [id number] [address] [place] [address], [place] [address] 29 Sep, 2013 [facility] [address] [id number] [address] [place] [address], [place] [address] 29 Sep, 2013 [facility] [address] [id number] [address] [place] [address], [place] [address] 10 Mar, 2013 [facility] [address] [id number] [address] [place] [address], [place] [address] 10 Mar, 2013 [facility] [address] [id number] [address] [place] [address], [place] [address] 04 Mar, 2013 [facility] [address] [id number] [facility] [place] [address] 04 Mar, 2014 [facility] [address] [id number] [address] [place] [address], [place] [address] Mar, [facility] [address] [id number] [address] [place] [address], [place] [address] Mar, [facility] [address] [id number] [address] [place] [address], [place] [address] Mar, [facility] [address] [id number] [address] [place] [address], [place] [address] Mar, [facility] [address] [id number] [address] [place] [address], [place] [address] Feb, [facility] [address] [id number] [address] [place] [address], [place] [address] Feb, [facility] [address] [id number] [address] [place] [address], [place] [address] Jan, [facility] [address] [id number] [address] [place] [address], [place] [address] Jan, [facility] [address] [id number] [address] [place] [address], [place] [address] Jan, [facility] [address] [id number] [address] [place] [address], [place] [address] Jan, [facility] [address] [id number] [address] [place] [address], [place] [address] Dec, [facility] [address] [id number] [address] [place] [address], [place] [address] Dec, [facility] [address] [id number] [address] [place] [address], [place] [address] Dec, [facility] [address] [id number] [address] [place] [address], [place] [address] Dec, [facility] [address] [id number] [address] [place] [address], [place] [address] Dec, [facility] [address] [id number] [address] [place] [address], [place] [address] Dec, [facility] [address] [id number] [address] [place] [address], [place] [address] November, [facility] [address] [id number] [address] [place] [address], [place] [address] November, [facility] [address] [id number] [address] [place] [address], [place] [address] November, [facility] [address] [id number] [address] [place] [address], [place] [address] November, [facility] [address] [id number] [address] [place] [address], [place] [address] November, [facility] [address] [id number] [address] [place] [address], [place] [address] November, [address] [id number] November, [facility] [address] [id number] [address] [place] [address], [place] [address] November, [facility] [address] [id number] [address] [place] [address], [place] [address] November, [facility] [address] [id number] [address] [place] [address], [place] [address] November, [facility] [address] [id number] [address] [place] [address], [place] [address] November, [facility] [address] [id number] [address] [place] [address], [place] [address] November, [facility] [address] [id number] [address] [place] [address], [place] [address] Oct, [facility] [address] [id number] [address] [place] [address], [place] [address] Oct, [facility] [address] [id number] [facility] [place] [address] Oct, [facility] [address] [id number] [facility] [place] [address] Oct, [facility] [address] [id number] [facility] [place] [address] Oct, [facility] [address] [id number] [address] [place] [address], [place] [address] Oct, [facility] [address] [id number] [address] [place] [address], [place] [address] Oct, [facility] [address] [id number] [address] [place] [address], [place] [address] Oct, [facility] [address] [id number] [address] [place] [address], [place] [address] Oct, [facility] [address] [id number] [address] [place] [address], [place] [address] Oct, [facility] [address] [id number] [address] [place] [address], [place] [address] Oct, [facility] [address] [id number] [address] [place] [address], [place] [address] Oct, [facility] [address] [id number] [address] [place] [address], [place] [address] Oct, [facility] [address] [id number] [address] [place] [address], [place] [address] Oct, [facility] [address] [id number] [address] [place] [address], [place] [address] Oct, [facility] [address] [id number] [address] [place] [address], [place] [address] Sep, [facility] [address] [id number] [address] [place] [address], [place] [address] Sep, [facility] [address] [id number] [address] [place] [address], [place] [address] Sep, [facility] [address] [id number] [facility] [place] [address] Sep, [facility] [address] [id number] [facility] [place] [address] Aug, [facility] [address] [id number] [facility] [place] [address] Aug, [facility] [address] [id number] [address] [place] [address], [place] [address] Aug, [facility] [address] [id number] [facility] [place] [address] Aug, [facility] [address] [id number] [address] [place] [address], [place] [address] Jul, [facility] [address] [id number] [address] [place] [address], [place] [address] Jul, [facility] [address] [id number] [address] [place] [address], [place] [address] Jul, [facility] [address] [id number] [address] [place] [address], [place] [address] Jul, [facility] [address] [id number] [address] [place] [address], [place] [address] Jul, [facility] [address] [id number] [address] [place] [address], [place] [address] Jul, [facility] [address] [id number] [address] [place] [address], [place] [address] Jul, [facility] [address] [id number] [address] [place] [address], [place] [address] Jul, [facility] [address] [id number] [address] [place] [address], [place] [address] Jul, [facility] [address] [id number] [address] [place] [address], [place] [address] Jul, [facility] [address] [id number] [address] [place] [address], [place] [id number] 08 Jul, 2013 [facility] [address] [id number] [address] [place] [address], [place] [address] Jul, [facility] [address] [id number] [address] [place] [address], [place] [address] Jul, [facility] [address] [id number] [address] [place] [address], [place] [address] Jul, [facility] [address] [id number] [address] [place] [address], [place] [address] Jun, [facility] [address] [id number] [address] [place] [address], [place] [address] Jun, [facility] [address] [id number] [address] [place] [address], [place] [address] Jun, [facility] [address] [id number] [address] [place] [address], [place] [address] Jun, [facility] [address] [id number] [address] [place] [address], [place] [address] May, [facility] [address] [id number] [address] [place] [address], [place] [address] May, [facility] [address] [id number] [address] [place] [address], [place] [address] May, [facility] [address] [id number] [address] [place] [address], [place] [address] May, [facility] [address] [id number] [address] [place] [address], [place] [address] May, [facility] [address] [id number] [address] [place] [address], [place] [address] May, [facility] [address] [id number] [address] [place] [address], [place] [address] May, [facility] [address] [id number] [address] [place] [address], [place] [address] May, [facility] [address] [id number] [address] [place] [address], [place] [address] Apr, [facility] [address] [id number] [address] [place] [address], [place] [address] Apr, [facility] [address] [id number] [address] [place] [address], [place] [address] Apr, [facility] [address] [id number] [address] [place] [address], [place] [address] Apr, [facility] [address] [id number] [address] [place] [address], [place] [address] Apr, [facility] [address] [id number] [address] [place] [address], [place] [address] Apr, [facility] [address] [id number] [address] [place] [address], [place] [address] 30 Mar, 2013 [facility] [address] [id number] [address] [place] [address], [place] [address] 26 Mar, 2013 [facility] [address] [id number] [address] [place] [address], [place] [address] 20 Mar, 2013 [facility] [address] [id number] [address] [place] [address], [place] [address] 17 Mar, 2013 [facility] [address] [id number] [address] [place] [address], [place] [address] 16 Mar, 2013 [facility] [address] [id number] [address] [place] [address], [place] [address] 05 Mar, 2013 [facility] [address] [id number] [address] [place] [address], [place] [address] Feb, [facility] [address] [id number] [address] [place] [address], [place] [address] Feb, [facility] [address] [id number] [address] [place] [address], [place] [address] Feb, [facility] [address] [id number] [address] [place] [address], [place] [address] Feb, [facility] [address] [id number] [address] [place] [address], [place] [address] Jan, [facility] [address] [id number] [address] [place] [address], [place] [address] Jan, [facility] [address] [id number] [address] [place] [address], [place] [address] Jan, [facility] [address] [id number] [address] [place] [address], [place] [address] Jan, [facility] [address] [id number] [address] [place] [address], [place] [address] Jan, [facility] [address] [id number] [address] [place] [address], [place] [address] Dec, [facility] [address] [id number] [address] [place] [address], [place] [address] Dec, [facility] [address] [id number] [address] [place] [address], [place] [address] Dec, [facility] [address] [id number] [address] [place] [address], [place] [address] November, [facility] [address] [id number] [address] [place] [address], [place] [address] November, [facility] [address] [id number] [address] [place] [address], [place] [address] November, [facility] [address] [id number] [address] [place] [address], [place] [address] Oct, [facility] [address] [id number] [address] [place] [address], [place] [address] Oct, [facility] [address] [id number] [address] [place] [address], [place] [address] Oct, [facility] [address] [id number] [address] [place] [address], [place] [address] Oct, [facility] [address] [id number] [address] [place] [address], [place] [address] 18 Oct, 2012 [facility] [address] [id number] [address] [place] [address], [place] [address] 17 Oct, 2012 [facility] [address] [id number] [address] [place] [address], [place] [address] 15 Oct, 2012 [facility] [address] [id number] [address] [place] [address], [place] [address] 26 Sep, 2012 [facility] [address] [id number] [address] [place] [address], [place] [address] Sep, [facility] [address] [id number] [address] [place] [address], [place] [address] 06 Sep, 2012 [facility] [address] [id number] [address] [place] [address], [place] [address] Sep, [facility] [address] [id number] [address] [place] [address], [place] [address] Aug, [facility] [address] [id number] [address] [place] [address], [place] [address] Aug, [facility] [address] [id number] [address] [place] [address], [place] [address] Aug, [facility] [address] [id number] [address] [place] [address], [place] [address] Aug, [facility] [address] [id number] [address] [place] [address], [place] [address] Aug, [facility] [address] [id number] [address] [place] [address], [place] [address] Aug, [facility] [address] [id number] [address] [place] [address], [place] [address] Jul, [facility] [address] [id number] [address] [place] [address], [place] [address] Jul, [facility] [address] [id number] [address] [place] [address], [place] [address] Jul, [facility] [address] [id number] [address] [place] [address], [place] [address] Jul, [facility] [address] [id number] [address] [place] [address], [place] [address] Jul, [facility] [address] [id number] [address] [place] [address], [place] [address] Jul, [facility] [address] [id number] [address] [place] [address], [place] [address] Jun, [facility] [address] [id number] [address] [place] [address], [place] [address] Jun, [facility] [address] [id number] [address] [place] [address], [place] [address] Jun, [facility] [address] [id number] [address] [place] [address], [place] [address] Jun, [facility] [address] [id number] [address] [place] [address], [place] [address] Jun, [facility] [address] [id number] [address] [place] [address], [place] [address] Jun, [facility] [address] [id number] [address] [place] [address], [place] [address] May, [facility] [address] [id number] [address] [place] [address], [place] [address] May, [facility] [address] [id number] [address] [place] [address], [place] [address] May, [facility] [address] [id number] [address] [place] [address], [place] [address] May, [facility] [address] [id number] [address] [place] [address], [place] [address] May, [facility] [address] [id number] [address] [place] [address], [place] [address] May, [facility] [address] [id number] [address] [place] [address], [place] [address] 28 May, 2012 [facility] [address] [id number] [address] [place] [address], [place] [address] May, [facility] [address] [id number] [address] [place] [address], [place] [address] May, [facility] [address] [id number] [address] [place] [address], [place] [address] May, [facility] [address] [id number] [address] [place] [address], [place] [address] Apr, [facility] [address] [id number] [address] [place] [address], [place] [address] 31 Apr, 2012 [facility] [address] [id number] [address] [place] [address], [place] [address] Apr, [facility] [address] [id number] [address] [place] [address], [place] [address] 23 Apr, 2012 [facility] [address] [id number] [address] [place] [address], [place] [address] 16 Apr, 2012 [facility] [address] [id number] [address] [place] [address], [place] [address] 16 Apr, 2012 [facility] [address] [id number] [address] [place] [address], [place] [address] 15 Apr, 2012 [facility] [address] [id number] [address] [place] [address], [place] [address] 15 Apr, 2012 [facility] [address] [id number] [address] [place] [address], [place] [address] 05 Apr, 2012 [facility] [address] [id number] [address] [place] [address], [place] [address] 28 Mar, 2012 [facility] [address] [id number] [address] [place] [address], [place] [address] 26 Mar, 2012 [facility] [address] [id number] [address] [place] [address], [place] [address] Mar, [facility] [address] [id number] [address] [place] [address], [place] [address] Mar, [facility] [address] [id number] [address] [place] [address], [place] [address] Mar, [facility] [address] [id number] [address] [place] [address], [place] [address] Mar, [facility] [address] [id number] [address] [place] [address], [place] [address] Feb, [facility] [address] [id number] [address] [place] [address], [place] [address] Feb, [facility] [address] [id number] [address] [place] [address], [place] [address] Feb, [facility] [address] [id number] [address] [place] [address], [place] [address] Jan, [facility] [address] [id number] [address] [place] [address], [place] [address] Jan, [facility] [address] [id number] [address] [place] [address], [place] [address] Jan, [facility] [address] [id number] [address] [place] [address], [place] [address] Jan, [facility] [address] [id number] [address] [place] [address], [place] [address] Dec, [facility] [address] [id number] [address] [place] [address], [place] [address] November, [facility] [address] [id number] [address] [place] [address], [place] [address] November, [facility] [address] [id number] [address] [place] [address], [place] [address] November, [facility] [address] [id number] [address] [place] [address], [place] [address] November, [facility] [address] [id number] [address] [place] [address], [place] [address] November, [facility] [address] [id number] [address] [place] [address], [place] [address] November, [facility] [address] [id number] [address] [place] [address], [place] [address] Oct, [facility] [address] [id number] [address] [place] [address], [place] [address] Oct, [facility] [address] [id number] [address] [place] [address], [place] [address] Sep, [facility] [address] [id number] [address] [place] [address], [place] [address] Sep, [facility] [address] [id number] [address] [place] [address], [place] [address] Sep, [facility] [address] [id number] [address] [place] [address], [place] [address] Aug, [facility] [address] [id number] [address] [place] [address], [place] [address] Aug, [facility] [address] [id number] [address] [place] [address], [place] [address] Aug, [facility] [address] [id number] [address] [place] [address], [place] [address] Aug, [facility] [address] [id number] [address] [place] [address], [place] [address] Aug, [facility] [address] [id number] [address] [place] [address], [place] [address] Aug, [facility] [address] [id number] [address] [place] [address], [place] [address] Jul, [facility] [address] [id number] [address] [place] [address], [place] [address] Jul, [facility] [address] [id number] [address] [place] [address], [place] [address] Jul, [facility] [address] [id number] [address] [place] [address], [place] [address] Jul, [facility] [address] [id number] [address] [place] [address], [place] [address] Jul, [facility] [address] [id number] [address] [place] [address], [place] [address] 18 Jul, 2011 [facility] [address] [id number] [address] [place] [address], [place] [address] Jul, [facility] [address] [id number] [address] [place] [address], [place] [address] Jul, [facility] [address] [id number] [address] [place] [address], [place] [address] Jul, [facility] [address] [id number] [address] [place] [address], [place] [address] Jul, [facility] [address] [id number] [address] [place] [address], [place] [address] Jun, [facility] [address] [id number] [address] [place] [address], [place] [address] Jun, [facility] [address] [id number] [address] [place] [address], [place] [address] Jun, [facility] [address] [id number] [address] [place] [address], [place] [address] Jun, [facility] [address] [id number] [address] [place] [address], [place] [address] 30 May, 2011 [facility] [address] [id number] [address] [place] [address], [place] [address] May, [facility] [address] [id number] [address] [place] [address], [place] [address] May, [facility] [address] [id number] [address] [place] [address], [place] [address] 08 May, 2011 [facility] [address] [id number] [address] [place] [address], [place] [address] 31 Apr, 2011 [facility] [address] [id number] [address] [place] [address], [place] [address] 31 Apr, 2011 [facility] [address] [id number] [address] [place] [address], [place] [address] 10 Nov, 2010 [facility] [address] [id number] [address] [place] [address], [place] [address] 18 Oct, 2010 [facility] [address] [id number] [address] [place] [address], [place] [address] 17 Aug, 2010 [facility] [address] [id number] [address] [place] [address], [place] [address] 28 Jun, 2010 [facility] [address] [id number] [address] [place] [address], [place] [address] 28 Jun, 2010 [facility] [address] [id number] [address] [place] [address], [place] [address] 27 Jun, 2010 [facility] [address] [id number] [address] [place] [address], [place] [address] 03 Jun, 2010 [facility] [address] [id number] [address] [place] [address], [place] [address] 29 May, 2010 [facility] [address] [id number] [address] [place] [address], [place] [address] 27 Apr, 2010 [facility] [address] [id number] [address] [place] [address], [place] [address] 13 Oct, 2009 [facility] [address] [id number] [address] [place] [address], [place] [address] 13 Aug, 2009 [facility] [address] [id number] [address] [place] [address], [place] [address] 20 Jul, 2009 [facility] [address] [id number] [address] [place] [address], [place] [address] 22 Jun, 2009 [facility] [address] [id number] [address] [place] [address], [place] [address] 16 Jun, 2009 [facility] [address] [facility] [id number] [address] [place] [address] 14 Jun, 2009 [facility] [address] [facility] [id number] [address] [place] [id number] 14 Jun, 2009 [facility] [address] [facility] [id number] [address] [place] [id number] May, [facility] [address] [facility] [id number] [address] [place] [id number] Apr, [facility] [address] [facility] [id number] [address] [place] [id number] 15 Mar, 2009 [facility] [address] [facility] [id number] [address] [place] [id number] Mar, [facility] [address] [facility] [id number] [address] [place] [id number] Dec, IMMUNIZATIONS No Known Immunizations SOCIAL HISTORY [...]
--- OUTSIDE RECORDS SUMMARY | 2019-09-01 05:18 | XMS REPORT ---
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 [place] [address], [place] [address] Jun, [facility] [address] [id number] [address] [place] [address], [place] [address] 05 Jun, 2014 [facility] [address] [id number] [address] [place] [address], [place] [address] 05 Jun, 2014 [facility] [address] [id number] [address] [place] [address], [place] [address] Jun, [facility] [address] [id number] [address] [place] [address], [place] [address] Jun, [facility] [address] [id number] [address] [place] [address], [place] [address] 02 Jun, 2014 [facility] [address] [id number] [address] [place] [address], [place] [address] 02 Jun, 2014 [facility] [address] [id number] [address] [place] [address], [place] [address] Jun, [facility] [place] [address] [id number] [address] [place] [address], [place] [address] Jun, [facility] [place] [address] [id number] [address] [place] [address], [place] [address] Jun, [facility] [place] [facility] [address] [id number] [address] [place] [address], [place] [address] Jun, [facility] [place] [address] [id number] [address] [place] [address], [place] [address] May, [facility] [place] [facility] [address] [id number] [address] [place] [address], [place] [address] May, [facility] [place] [facility] [address] [id number] [address] [place] [address], [place] [address] May, [facility] [place] [address] [id number] [address] [place] [address], [place] [address] May, [facility] [place] [address] [id number] [address] [place] [address], [place] [address] Apr, [facility] [address] [id number] [address] [place] [address], [place] [address] Apr, [facility] [place] [address] [id number] [address] [place] [address], [place] [address] Apr, [facility] [address] [id number] [address] [place] [address], [place] [address] Apr, [facility] [address] [id number] [address] [place] [address], [place] [address] Apr, [facility] [address] [id number] [address] [place] [address], [place] [address] Apr, [facility] [address] [id number] [address] [place] [address], [place] [address] Apr, [facility] [address] [id number] [address] [place] [address], [place] [address] Apr, [facility] [address] [id number] [address] [place] [address], [place] [address] Apr, [facility] [place] [address] [id number] [address] [place] [address], [place] [address] Apr, [facility] [address] [id number] [address] [place] [address], [place] [address] Mar, 2013 [facility] [place] [facility] [address] [id number] [address] [place] [address], [place] [address] 29 Mar, 2013 [facility] [address] [id number] [address] [place] [address], [place] [address] Mar, 2013 [facility] [place] [facility] [address] [id number] [address] [place] [address], [place] [address] Mar, 2013 [facility] [address] [id number] [address] [place] [address], [place] [address] Mar, 2013 [facility] [place] [address] [id number] [address] [place] [address], [place] [address] Mar, 2013 [facility] [place] [address] [id number] [address] [place] [address], [place] [address] Mar, 2013 [facility] [place] [address] [id number] [address] [place] [address], [place] [address] Mar, 2013 [facility] [place] [address] [id number] [address] [place] [address], [place] [address] Mar, 2013 [facility] [place] [address] [id number] [address] [place] [address], [place] [address] Mar, 2013 [facility] [place] [facility] [address] [id number] [address] [place] [address], [place] [address] Mar, 2013 [facility] [place] [address] [id number] [address] [place] [address], [place] [address] Mar, 2013 [facility] [place] [address] [id number] [address] [place] [address], [place] [address] Feb, [facility] [place] [address] [id number] [facility] [place] [address] Feb, [facility] [address] [id number] [address] [place] [address], [place] [address] Jan, [facility] [address] [id number] [facility] [place] [address] Jan, [facility] [address] [id number] [address] [place] [address], [place] [address] Jan, [facility] [address] [id number] [address] [place] [address], [place] [address] Jan, [facility] [address] [id number] [address] [place] [address], [place] [address] Dec, [facility] [address] [id number] [address] [place] [address], [place] [address] Dec, [facility] [address] [id number] [address] [place] [address], [place] [address] Dec, [facility] [address] [id number] [address] [place] [address], [place] [address] Dec, [facility] [address] [id number] [address] [place] [address], [place] [address] Dec, [facility] [address] [id number] [address] [place] [address], [place] [address] Dec, [facility] [address] [id number] [address] [place] [address], [place] [address] November, [facility] [address] [id number] [address] [place] [address], [place] [address] November, [facility] [address] [id number] [address] [place] [address], [place] [address] November, [facility] [place] [address] [id number] [address] [place] [address], [place] [address] November, [facility] [address] [id number] [address] [place] [address], [place] [address] November, [facility] [address] [id number] [address] [place] [address], [place] [address] November, [facility] [address] [place] [id number] November, [facility] [address] [id number] [address] [place] [address], [place] [address] November, [facility] [address] [id number] [address] [place] [address], [place] [address] November, [facility] [address] [id number] [address] [place] [address], [place] [address] November, [facility] [address] [id number] [address] [place] [address], [place] [address] November, [facility] [address] [id number] [address] [place] [address], [place] [address] November, [facility] [address] [id number] [address] [place] [address], [place] [address] Oct, [facility] [address] [id number] [address] [place] [address], [place] [address] Oct, [facility] [address] [id number] [address] [place] [address], [place] [address] Oct, [facility] [address] [id number] [address] [place] [address], [place] [address] Oct, [facility] [address] [id number] [address] [place] [address], [place] [address] Oct, [facility] [address] [id number] [address] [place] [address], [place] [address] Oct, [facility] [address] [id number] [address] [place] [address], [place] [address] Oct, [facility] [address] [id number] [address] [place] [address], [place] [address] Oct, [facility] [address] [id number] [address] [place] [address], [place] [address] Oct, [facility] [address] [id number] [facility] [place] [address] Oct, [facility] [address] [id number] [facility] [place] [address] Oct, [facility] [place] [facility] [address] [id number] [facility] [place] [address] Oct, [facility] [place] [address] [id number] [address] [place] [address], [place] [address] Oct, [facility] [place] [facility] [address] [id number] [address] [place] [address], [place] [address] Oct, [facility] [place] [address] [id number] [address] [place] [address], [place] [address] Oct, [facility] [place] [address] [id number] [address] [place] [address], [place] [address] Sep, [facility] [place] [facility] [address] [id number] [address] [place] [address], [place] [address] Sep, [facility] [place] [address] [id number] [address] [place] [address], [place] [address] Sep, [facility] [place] [facility] [address] [id number] [address] [place] [address], [place] [address] Sep, [facility] [place] [facility] [address] [id number] [address] [place] [address], [place] [address] Aug, [facility] [place] [facility] [address] [id number] [address] [place] [address], [place] [address] Aug, [facility] [address] [id number] [address] [place] [address], [place] [address] Aug, [facility] [place] [facility] [address] [id number] [address] [place] [address], [place] [address] Aug, [facility] [place] [facility] [address] [id number] [address] [place] [address], [place] [address] Jul, [facility] [place] [facility] [address] [id number] [address] [place] [address] Jul, [facility] [address] [id number] [address] [place] [address], [place] [address] Jul, [facility] [address] [id number] [address] [place] [address], [place] [address] Jul, [facility] [address] [id number] [address] [place] [address], [place] [address] Jul, [facility] [address] [id number] [address] [place] [address], [place] [address] Jul, [facility] [address] [id number] [address] [place] [address], [place] [address] Jul, [facility] [address] [id number] [address] [place] [address], [place] [address] Jul, [facility] [address] [id number] [address] [place] [address], [place] [address] Jul, [facility] [address] [id number] [address] [place] [address], [place] [address] Jul, [facility] [address] [id number] [address] [place] [address], [place] [address] Jul, [facility] [address] [id number] [address] [place] [address], [place] [address] Jul, [facility] [address] [id number] [address] [place] [address], [place] [address] Jul, [facility] [address] [id number] [address] [place] [address], [place] [address] Jul, [facility] [address] [id number] [address] [place] [address], [place] [address] Jun, [facility] [address] [id number] [address] [place] [address], [place] [address] Jun, [facility] [address] [id number] [address] [place] [address], [place] [address] Jun, [facility] [address] [id number] [address] [place] [address], [place] [address] Jun, [facility] [address] [id number] [address] [place] [address], [place] [address] May, [facility] [address] [id number] [address] [place] [address], [place] [address] May, [facility] [address] [id number] [address] [place] [address], [place] [address] May, [facility] [address] [id number] [address] [place] [address], [place] [address] May, [facility] [address] [id number] [address] [place] [address], [place] [address] May, [facility] [address] [id number] [address] [place] [address], [place] [address] May, [facility] [address] [id number] [address] [place] [address], [place] [address] May, [facility] [address] [id number] [address] [place] [address], [place] [address] May, [facility] [address] [id number] [address] [place] [address], [place] [address] Apr, [facility] [address] [id number] [address] [place] [address], [place] [address] Apr, [facility] [address] [id number] [address] [place] [id number] Apr, [facility] [address] [id number] [address] [place] [address], [place] [address] Apr, [facility] [address] [id number] [address] [place] [address], [place] [address] Apr, [facility] [address] [id number] [address] [place] [id number] Apr, [facility] [address] [id number] [address] [place] [id number] 30 Mar, 2012 [facility] [address] [id number] [address] [place] [address], [place] [address] 26 Mar, 2013 [facility] [address] [id number] [address] [place] [address], [place] [address] 20 Mar, 2013 [facility] [address] [id number] [address] [place] [address], [place] [address] 17 Mar, 2013 [facility] [address] [id number] [address] [place] [address], [place] [address] 16 Mar, 2013 [facility] [address] [id number] [address] [place] [address], [place] [address] 05 Mar, 2013 [facility] [address] [id number] [address] [place] [address], [place] [address] Feb, [facility] [address] [id number] [address] [place] [address], [place] [address] Feb, [facility] [address] [id number] [address] [place] [address], [place] [address] Feb, [facility] [address] [id number] [address] [place] [address], [place] [address] Feb, [facility] [address] [id number] [address] [place] [address], [place] [address] Jan, [facility] [address] [id number] [address] [place] [address], [place] [address] Jan, [facility] [address] [id number] [address] [place] [address], [place] [address] Jan, [facility] [address] [id number] [address] [place] [address], [place] [address] Jan, [facility] [address] [id number] [address] [place] [address], [place] [address] Jan, [facility] [address] [id number] [address] [place] [address], [place] [address] Dec, [facility] [address] [id number] [address] [place] [address], [place] [address] Dec, [facility] [address] [id number] [address] [place] [address], [place] [address] Dec, [facility] [address] [id number] [address] [place] [address], [place] [address] November, [facility] [address] [id number] [address] [place] [address], [place] [address] November, [facility] [address] [id number] [address] [place] [address], [place] [address] November, [facility] [address] [id number] [address] [place] [address], [place] [address] Oct, [facility] [address] [id number] [address] [place] [address], [place] [address] Oct, [facility] [address] [id number] [address] [place] [address], [place] [address] Oct, [facility] [address] [id number] [address] [place] [address], [place] [address] Oct, [facility] [address] [id number] [address] [place] [address], [place] [address] 18 Oct, 2012 [facility] [address] [id number] [address] [place] [address], [place] [address] 17 Oct, 2012 [facility] [address] [id number] [address] [place] [address], [place] [address] 15 Oct, 2012 [facility] [address] [id number] [address] [place] [address], [place] [address] Sep, [facility] [address] [id number] [address] [place] [address], [place] [address] Sep, [facility] [address] [id number] [address] [place] [address], [place] [address] Sep, [facility] [address] [id number] [address] [place] [address], [place] [address] Sep, [facility] [address] [id number] [address] [place] [address], [place] [address] Aug, [facility] [address] [id number] [address] [place] [address], [place] [address] Aug, [facility] [address] [id number] [address] [place] [address], [place] [address] Aug, [facility] [address] [id number] [address] [place] [address], [place] [address] Aug, [facility] [address] [id number] [address] [place] [address], [place] [address] Aug, [facility] [address] [id number] [address] [place] [address], [place] [address] Aug, [facility] [address] [id number] [address] [place] [address], [place] [address] Jul, [facility] [address] [id number] [address] [place] [address], [place] [address] Jul, [facility] [address] [id number] [address] [place] [address], [place] [address] Jul, [facility] [address] [id number] [address] [place] [address], [place] [address] Jul, [facility] [address] [id number] [address] [place] [address], [place] [address] Jul, [facility] [address] [id number] [address] [place] [address], [place] [address] Jul, [facility] [address] [id number] [address] [place] [address], [place] [address] Jun, [facility] [address] [id number] [address] [place] [address], [place] [address] Jun, [facility] [address] [id number] [address] [place] [address], [place] [address] Jun, [facility] [address] [id number] [address] [place] [address], [place] [address] Jun, [facility] [address] [id number] [address] [place] [address], [place] [address] Jun, [facility] [address] [id number] [address] [place] [address], [place] [address] Jun, [facility] [address] [id number] [address] [place] [address], [place] [address] May, [facility] [address] [id number] [address] [place] [address], [place] [address] May, [facility] [address] [id number] [address] [place] [address], [place] [address] May, [facility] [address] [id number] [address] [place] [address], [place] [address] May, [facility] [address] [id number] [address] [place] [address], [place] [address] May, [facility] [address] [id number] [address] [place] [address], [place] [address] May, [facility] [address] [id number] [address] [place] [address], [place] [address] May, [facility] [address] [id number] [address] [place] [address], [place] [address] May, [facility] [address] [id number] [address] [place] [address], [place] [address] May, [facility] [address] [id number] [address] [place] [address], [place] [address] May, [facility] [address] [id number] [address] [place] [address], [place] [address] Apr, [facility] [address] [id number] [address] [place] [address], [place] [address] Apr, [facility] [address] [id number] [address] [place] [address], [place] [address] Apr, [facility] [address] [id number] [address] [place] [address], [place] [address] 23 Apr, 2012 [facility] [address] [id number] [address] [place] [address], [place] [address] 16 Apr, 2012 [facility] [address] [id number] [address] [place] [address], [place] [address] 16 Apr, 2012 [facility] [address] [id number] [address] [place] [address], [place] [address] 15 Apr, 2012 [facility] [address] [id number] [address] [place] [address], [place] [address] 15 Apr, 2012 [facility] [address] [id number] [address] [place] [address], [place] [address] 05 Apr, 2012 [facility] [address] [id number] [address] [place] [address], [place] [address] 28 Mar, 2012 [facility] [address] [id number] [address] [place] [address], [place] [address] 26 Mar, 2012 [facility] [address] [id number] [address] [place] [address], [place] [address] 25 Mar, 2012 [facility] [address] [id number] [address] [place] [address] 19 Mar, 2012 [facility] [address] [id number] [address] [place] [address] 18 Mar, 2012 [facility] [address] [id number] [address] [place] [address] 05 Mar, 2012 [facility] [address] [id number] [address] [place] [address], [place] [address] Feb, [facility] [address] [id number] [address] [place] [address], [place] [address] Feb, [facility] [address] [id number] [address] [place] [address] Feb, [facility] [address] [id number] [address] [place] [address] Jan, [facility] [address] [id number] [address] [place] [address], [place] [address] Jan, [facility] [address] [id number] [address] [place] [address], [place] [address] Jan, [facility] [address] [id number] [address] [place] [address], [place] [address] Jan, [facility] [address] [id number] [address] [place] [address], [place] [address] Dec, [facility] [address] [id number] [address] [place] [address], [place] [address] November, [facility] [address] [id number] [address] [place] [address], [place] [address] November, [facility] [address] [id number] [address] [place] [address], [place] [address] November, [facility] [address] [id number] [address] [place] [address], [place] [address] November, [facility] [address] [id number] [address] [place] [address], [place] [address] November, [facility] [address] [id number] [address] [place] [address], [place] [address] November, [facility] [address] [id number] [address] [place] [address], [place] [address] Oct, [facility] [address] [id number] [address] [place] [address], [place] [address] Oct, [facility] [address] [id number] [address] [place] [address], [place] [address] Sep, [facility] [address] [id number] [address] [place] [address], [place] [address] Sep, [facility] [address] [id number] [address] [place] [address], [place] [address] Sep, [facility] [address] [id number] [address] [place] [address], [place] [address] Aug, [facility] [address] [id number] [address] [place] [address], [place] [address] Aug, [facility] [address] [id number] [address] [place] [address], [place] [address] 14 Aug, 2011 [facility] [address] [id number] [address] [place] [address], [place] [address] Aug, [facility] [address] [id number] [address] [place] [address], [place] [address] Aug, [facility] [address] [id number] [address] [place] [address], [place] [address] Aug, [facility] [address] [id number] [address] [place] [address], [place] [address] Jul, [facility] [address] [id number] [address] [place] [address], [place] [address] Jul, [facility] [address] [id number] [address] [place] [address], [place] [address] Jul, [facility] [address] [id number] [address] [place] [address], [place] [address] Jul, [facility] [address] [id number] [address] [place] [address], [place] [address] Jul, [facility] [address] [id number] [address] [place] [address], [place] [address] Jul, [facility] [address] [id number] [address] [place] [address], [place] [address] Jul, [facility] [address] [id number] [address] [place] [address], [place] [address] Jul, [facility] [address] [id number] [address] [place] [address], [place] [address] Jul, [facility] [address] [id number] [address] [place] [address], [place] [address] Jul, [facility] [address] [id number] [address] [place] [address], [place] [address] Jun, [facility] [address] [id number] [address] [place] [address], [place] [address] Jun, [facility] [address] [id number] [address] [place] [address], [place] [address] Jun, [facility] [address] [id number] [address] [place] [address], [place] [address] Jun, [facility] [address] [id number] [address] [place] [address], [place] [address] May, [facility] [address] [id number] [address] [place] [address], [place] [address] May, [facility] [address] [id number] [address] [place] [address], [place] [address] May, [facility] [address] [id number] [address] [place] [address], [place] [address] May, [facility] [address] [id number] [address] [place] [address], [place] [address] Apr, [facility] [address] [id number] [address] [place] [address], [place] [address] Apr, [facility] [address] [id number] [address] [place] [address], [place] [address] November, [facility] [address] [id number] [address] [place] [address], [place] [address] Oct, [facility] [address] [id number] [address] [place] [address], [place] [address] Aug, [facility] [address] [id number] [address] [place] [address], [place] [address] Jun, [facility] [address] [id number] [address] [place] [address], [place] [address] Jun, [facility] [address] [id number] [address] [place] [address], [place] [address] 27 Jun, 2010 [facility] [address] [id number] [address] [place] [address], [place] [address] 03 Jun, 2010 [facility] [address] [id number] [address] [place] [address], [place] [address] 29 May, 2010 [facility] [address] [id number] [address] [place] [address], [place] [address] 27 Apr, 2010 [facility] [address] [id number] [address] [place] [address], [place] [address] Oct, [facility] [address] [id number] [address] [place] [address], [place] [address] 13 Aug, 2009 [facility] [address] [id number] [address] [place] [address], [place] [address] Jul, [facility] [address] [id number] [address] [place] [address], [place] [address] 22 Jun, 2009 [facility] [address] [id number] [address] [place] [address], [place] [address] 16 Jun, 2009 [facility] [address] [id number] [address] [place] [address], [place] [address] 14 Jun, 2009 [facility] [address] [id number] [address] [place] [address], [place] [address] 14 Jun, 2009 [facility] [address] [id number] [address] [place] [address], [place] [address] 09 May, 2009 [facility] [address] [id number] [address] [place] [address], [place] [address] 20 Apr, 2009 [facility] [address] [id number] [address] [place] [address], [place] [address] 15 Mar, 2009 [facility] [address] [id number] [address] [place] [address], [place] [address] 14 Mar, 2009 [facility] [address] [id number] [address] [place] [address], [place] [address] Dec, IMMUNIZATIONS No Known Immunizations SOCIAL HISTORY Never Assessed [place] [place] VITAL SIGNS MEDICATIONS Unknown [...]
--- OUTSIDE RECORDS SUMMARY | 2019-09-01 05:18 | XMS REPORT ---
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 [place] [address], [place] [address] Jun, [facility] [address] [id number] [address] [place] [address], [place] [address] 02 Jun, 2014 [facility] [address] [id number] [address] [place] [address], [place] [address] 02 Jun, 2014 [facility] [address] [id number] [address] [place] [address], [place] [address] Jun, [facility] [address] [id number] [address] [place] [address], [place] [address] Jun, [facility] [address] [id number] [address] [place] [address], [place] [address] Jun, [facility] [address] [id number] [address] [place] [address], [place] [address] Jun, [facility] [address] [id number] [address] [place] [address], [place] [address] May, [facility] [address] [id number] [address] [place] [address], [place] [address] May, [facility] [address] [id number] [address] [place] [address], [place] [address] May, [facility] [address] [id number] [address] [place] [address], [place] [address] May, [facility] [address] [id number] [address] [place] [address], [place] [address] Apr, [facility] [address] [id number] [address] [place] [address], [place] [address] Apr, [facility] [address] [id number] [address] [place] [address], [place] [address] Apr, [facility] [address] [id number] [address] [place] [address], [place] [address] Apr, [facility] [address] [id number] [address] [place] [address], [place] [address] Apr, [facility] [address] [id number] [address] [place] [address], [place] [address] Apr, [facility] [address] [id number] [address] [place] [address], [place] [address] Apr, [facility] [address] [id number] [address] [place] [address], [place] [address] Apr, [facility] [address] [id number] [address] [place] [address], [place] [address] Apr, [facility] [address] [id number] [address] [place] [address], [place] [address] Apr, [facility] [address] [id number] [address] [place] [address], [place] [address] Mar, 2013 [facility] [address] [id number] [address] [place] [address], [place] [address] 29 Mar, 2013 [facility] [address] [id number] [address] [place] [address], [place] [address] Mar, 2013 [facility] [address] [id number] [address] [place] [address], [place] [address] Mar, 2013 [facility] [address] [id number] [address] [place] [address], [place] [address] Mar, 2013 [facility] [address] [id number] [address] [place] [address], [place] [address] Mar, 2013 [facility] [address] [id number] [address] [place] [address], [place] [address] Mar, 2013 [facility] [address] [id number] [address] [place] [address], [place] [address] Mar, 2013 [facility] [address] [id number] [address] [place] [address], [place] [address] Mar, 2013 [facility] [address] [id number] [address] [place] [address], [place] [address] Mar, 2013 [facility] [address] [id number] [address] [place] [address], [place] [address] Mar, 2013 [facility] [address] [id number] [address] [place] [address], [place] [address] Mar, 2013 [facility] [address] [id number] [address] [place] [address], [place] [address] Feb, [facility] [address] [id number] [facility] [place] [address] Feb, [facility] [address] [id number] [address] [place] [address], [place] [address] Jan, [facility] [address] [id number] [facility] [place] [address] Jan, [facility] [address] [id number] [address] [place] [address], [place] [address] Jan, [facility] [address] [id number] [address] [place] [address], [place] [address] Jan, [facility] [address] [id number] [address] [place] [address], [place] [address] Dec, [facility] [address] [id number] [address] [place] [address], [place] [address] Dec, [facility] [address] [id number] [address] [place] [address], [place] [address] Dec, [facility] [address] [id number] [address] [place] [address], [place] [address] Dec, [facility] [address] [id number] [address] [place] [address], [place] [address] Dec, [facility] [address] [id number] [address] [place] [address], [place] [address] Dec, [facility] [address] [id number] [address] [place] [address], [place] [address] November, [facility] [address] [id number] [address] [place] [address], [place] [address] November, [facility] [address] [id number] [address] [place] [address], [place] [address] November, [facility] [address] [id number] [address] [place] [address], [place] [address] November, [facility] [address] [id number] [address] [place] [address], [place] [address] November, [facility] [address] [id number] [address] [place] [address], [place] [address] November, [facility] [address] [place] [id number] November, [facility] [address] [id number] [address] [place] [address], [place] [address] November, [facility] [address] [id number] [address] [place] [address], [place] [address] November, [facility] [address] [id number] [address] [place] [address], [place] [address] November, [facility] [address] [id number] [address] [place] [address], [place] [address] November, [facility] [address] [id number] [address] [place] [address], [place] [address] November, [facility] [address] [id number] [address] [place] [address], [place] [address] Oct, [facility] [address] [id number] [address] [place] [address], [place] [address] Oct, [facility] [address] [id number] [address] [place] [address], [place] [address] Oct, [facility] [address] [id number] [address] [place] [address], [place] [address] Oct, [facility] [address] [id number] [address] [place] [address], [place] [address] Oct, [facility] [address] [id number] [address] [place] [address], [place] [address] Oct, [facility] [address] [id number] [address] [place] [address], [place] [address] Oct, [facility] [address] [id number] [address] [place] [address], [place] [address] Oct, [facility] [address] [id number] [address] [place] [address], [place] [address] Oct, [facility] [address] [id number] [facility] [place] [address] Oct, [facility] [address] [id number] [facility] [place] [address] Oct, [facility] [address] [id number] [facility] [place] [address] Oct, [facility] [address] [id number] [address] [place] [address], [place] [address] Oct, [facility] [address] [id number] [address] [place] [address], [place] [address] Oct, [facility] [address] [id number] [address] [place] [address], [place] [address] Oct, [facility] [address] [id number] [address] [place] [address], [place] [address] Sep, [facility] [address] [id number] [address] [place] [address], [place] [address] Sep, [facility] [address] [id number] [address] [place] [address], [place] [address] Sep, [facility] [address] [id number] [address] [place] [address], [place] [address] Sep, [facility] [place] [facility] [address] [id number] [address] [place] [address], [place] [address] Aug, [facility] [place] [facility] [address] [id number] [address] [place] [address], [place] [address] Aug, [facility] [place] [facility] [address] [id number] [address] [place] [address], [place] [address] Aug, [facility] [place] [facility] [address] [id number] [address] [place] [address], [place] [address] Aug, [facility] [place] [facility] [address] [id number] [address] [place] [address], [place] [address] Jul, [facility] [place] [facility] [address] [id number] [address] [place] [address] Jul, [facility] [address] [id number] [address] [place] [address], [place] [address] Jul, [facility] [address] [id number] [address] [place] [address], [place] [address] Jul, [facility] [address] [id number] [address] [place] [address], [place] [address] Jul, [facility] [address] [id number] [address] [place] [address], [place] [address] Jul, [facility] [address] [id number] [address] [place] [address], [place] [address] Jul, [facility] [address] [id number] [address] [place] [address], [place] [address] Jul, [facility] [address] [id number] [address] [place] [address], [place] [address] Jul, [facility] [address] [id number] [address] [place] [address], [place] [address] Jul, [facility] [address] [id number] [address] [place] [address], [place] [address] Jul, [facility] [address] [id number] [address] [place] [address], [place] [address] Jul, [facility] [address] [id number] [address] [place] [address], [place] [address] Jul, [facility] [address] [id number] [address] [place] [address], [place] [address] Jul, [facility] [address] [id number] [address] [place] [address], [place] [address] Jun, [facility] [address] [id number] [address] [place] [address], [place] [address] Jun, [facility] [address] [id number] [address] [place] [address], [place] [address] Jun, [facility] [address] [id number] [address] [place] [address], [place] [address] Jun, [facility] [address] [id number] [address] [place] [address], [place] [address] May, [facility] [address] [id number] [address] [place] [address], [place] [address] May, [facility] [address] [id number] [address] [place] [address], [place] [address] May, [facility] [address] [id number] [address] [place] [address], [place] [address] May, [facility] [address] [id number] [address] [place] [address], [place] [address] May, [facility] [address] [id number] [address] [place] [address], [place] [address] May, [facility] [address] [id number] [address] [place] [address], [place] [address] May, [facility] [address] [id number] [address] [place] [address], [place] [address] May, [facility] [address] [id number] [address] [place] [address], [place] [address] Apr, [facility] [address] [id number] [address] [place] [address], [place] [address] Apr, [facility] [address] [id number] [address] [place] [address] Apr, [facility] [address] [id number] [address] [place] [address], [place] [address] Apr, [facility] [address] [id number] [address] [place] [address], [place] [address] Apr, [facility] [address] [id number] [address] [place] [address] Apr, [facility] [address] [id number] [address] [place] [address] 30 Mar, 2012 [facility] [address] [id number] [address] [place] [address], [place] [address] 26 Mar, 2013 [facility] [address] [id number] [address] [place] [address], [place] [address] 20 Mar, 2013 [facility] [address] [id number] [address] [place] [address], [place] [address] 17 Mar, 2013 [facility] [address] [id number] [address] [place] [address], [place] [address] 16 Mar, 2013 [facility] [address] [id number] [address] [place] [address], [place] [address] 05 Mar, 2013 [facility] [address] [id number] [address] [place] [address], [place] [address] Feb, [facility] [address] [id number] [address] [place] [address], [place] [address] Feb, [facility] [address] [id number] [address] [place] [address], [place] [address] Feb, [facility] [address] [id number] [address] [place] [address], [place] [address] Feb, [facility] [address] [id number] [address] [place] [address], [place] [address] Jan, [facility] [address] [id number] [address] [place] [address], [place] [address] Jan, [facility] [address] [id number] [address] [place] [address], [place] [address] Jan, [facility] [address] [id number] [address] [place] [address], [place] [address] Jan, [facility] [address] [id number] [address] [place] [address], [place] [address] Jan, [facility] [address] [id number] [address] [place] [address], [place] [address] Dec, [facility] [address] [id number] [address] [place] [address], [place] [address] Dec, [facility] [address] [id number] [address] [place] [address], [place] [address] Dec, [facility] [address] [id number] [address] [place] [address], [place] [address] November, [facility] [address] [id number] [address] [place] [address], [place] [address] November, [facility] [address] [id number] [address] [place] [address], [place] [address] November, [facility] [address] [id number] [address] [place] [address], [place] [address] Oct, [facility] [address] [id number] [address] [place] [address], [place] [address] Oct, [facility] [address] [id number] [address] [place] [address], [place] [address] Oct, [facility] [address] [id number] [address] [place] [address], [place] [address] Oct, [facility] [address] [id number] [address] [place] [address], [place] [address] 18 Oct, 2012 [facility] [address] [id number] [address] [place] [address], [place] [address] 17 Oct, 2012 [facility] [address] [id number] [address] [place] [address], [place] [address] 15 Oct, 2012 [facility] [address] [id number] [address] [place] [address], [place] [address] Sep, [facility] [address] [id number] [address] [place] [address], [place] [address] Sep, [facility] [address] [id number] [address] [place] [address], [place] [address] Sep, [facility] [address] [id number] [address] [place] [address], [place] [address] Sep, [facility] [address] [id number] [address] [place] [address], [place] [address] Aug, [facility] [address] [id number] [address] [place] [address], [place] [address] Aug, [facility] [address] [id number] [address] [place] [address], [place] [address] Aug, [facility] [address] [id number] [address] [place] [address], [place] [address] Aug, [facility] [address] [id number] [address] [place] [address], [place] [address] Aug, [facility] [address] [id number] [address] [place] [address], [place] [address] Aug, [facility] [address] [id number] [address] [place] [address], [place] [address] Jul, [facility] [address] [id number] [address] [place] [address], [place] [address] Jul, [facility] [address] [id number] [address] [place] [address], [place] [address] Jul, [facility] [address] [id number] [address] [place] [address], [place] [address] Jul, [facility] [address] [id number] [address] [place] [address], [place] [address] Jul, [facility] [address] [id number] [address] [place] [address], [place] [address] Jul, [facility] [address] [id number] [address] [place] [address], [place] [address] Jun, [facility] [address] [id number] [address] [place] [address], [place] [address] Jun, [facility] [address] [id number] [address] [place] [address], [place] [address] Jun, [facility] [address] [id number] [address] [place] [address], [place] [address] Jun, [facility] [address] [id number] [address] [place] [address], [place] [address] Jun, [facility] [address] [id number] [address] [place] [address], [place] [address] Jun, [facility] [address] [id number] [address] [place] [address], [place] [address] May, [facility] [address] [id number] [address] [place] [address], [place] [address] May, [facility] [address] [id number] [address] [place] [address], [place] [address] May, [facility] [address] [id number] [address] [place] [address], [place] [address] May, [facility] [address] [id number] [address] [place] [address], [place] [address] May, [facility] [address] [id number] [address] [place] [address], [place] [address] May, [facility] [address] [id number] [address] [place] [address], [place] [address] May, [facility] [address] [id number] [address] [place] [address], [place] [address] May, [facility] [address] [id number] [address] [place] [address], [place] [address] May, [facility] [address] [id number] [address] [place] [address], [place] [address] May, [facility] [address] [id number] [address] [place] [address], [place] [address] Apr, [facility] [address] [id number] [address] [place] [address], [place] [address] Apr, [facility] [address] [id number] [address] [place] [address], [place] [address] Apr, [facility] [address] [id number] [address] [place] [address], [place] [address] 23 Apr, 2012 [facility] [address] [id number] [address] [place] [address], [place] [address] 16 Apr, 2012 [facility] [address] [id number] [address] [place] [address], [place] [address] 16 Apr, 2012 [facility] [address] [id number] [address] [place] [address], [place] [address] 15 Apr, 2012 [facility] [address] [id number] [address] [place] [address], [place] [address] 15 Apr, 2012 [facility] [address] [id number] [address] [place] [address], [place] [address] 05 Apr, 2012 [facility] [address] [id number] [address] [place] [address], [place] [address] 28 Mar, 2012 [facility] [address] [id number] [address] [place] [address], [place] [address] 26 Mar, 2012 [facility] [address] [id number] [address] [place] [address], [place] [address] 25 Mar, 2012 [facility] [address] [id number] [address] [place] [address] 19 Mar, 2012 [facility] [address] [id number] [address] [place] [address] 18 Mar, 2012 [facility] [address] [id number] [address] [place] [address] 05 Mar, 2012 [facility] [address] [id number] [address] [place] [address], [place] [address] Feb, [facility] [address] [id number] [address] [place] [address], [place] [address] Feb, [facility] [address] [id number] [address] [place] [address] Feb, [facility] [address] [id number] [address] [place] [address] Jan, [facility] [address] [id number] [address] [place] [address], [place] [address] Jan, [facility] [address] [id number] [address] [place] [address], [place] [address] Jan, [facility] [address] [id number] [address] [place] [address], [place] [address] Jan, [facility] [address] [id number] [address] [place] [address], [place] [address] Dec, [facility] [address] [id number] [address] [place] [address], [place] [address] November, [facility] [address] [id number] [address] [place] [address], [place] [address] November, [facility] [address] [id number] [address] [place] [address], [place] [address] November, [facility] [address] [id number] [address] [place] [address], [place] [address] November, [facility] [address] [id number] [address] [place] [address], [place] [address] November, [facility] [address] [id number] [address] [place] [address], [place] [address] November, [facility] [address] [id number] [address] [place] [address], [place] [address] Oct, [facility] [address] [id number] [address] [place] [address], [place] [address] Oct, [facility] [address] [id number] [address] [place] [address], [place] [address] Sep, [facility] [address] [id number] [address] [place] [address], [place] [address] Sep, [facility] [address] [id number] [address] [place] [address], [place] [address] Sep, [facility] [address] [id number] [address] [place] [address], [place] [address] Aug, [facility] [address] [id number] [address] [place] [address], [place] [address] Aug, [facility] [address] [id number] [address] [place] [address], [place] [address] 14 Aug, 2011 [facility] [address] [id number] [address] [place] [address], [place] [address] Aug, [facility] [address] [id number] [address] [place] [address], [place] [address] Aug, [facility] [address] [id number] [address] [place] [address], [place] [address] Aug, [facility] [address] [id number] [address] [place] [address], [place] [address] Jul, [facility] [address] [id number] [address] [place] [address], [place] [address] Jul, [facility] [address] [id number] [address] [place] [address], [place] [address] Jul, [facility] [address] [id number] [address] [place] [address], [place] [address] Jul, [facility] [address] [id number] [address] [place] [address], [place] [address] Jul, [facility] [address] [id number] [address] [place] [address], [place] [address] Jul, [facility] [address] [id number] [address] [place] [address], [place] [address] Jul, [facility] [address] [id number] [address] [place] [address], [place] [address] Jul, [facility] [address] [id number] [address] [place] [address], [place] [address] Jul, [facility] [address] [id number] [address] [place] [address], [place] [address] Jul, [facility] [address] [id number] [address] [place] [address], [place] [address] Jun, [facility] [address] [id number] [address] [place] [address], [place] [address] Jun, [facility] [address] [id number] [address] [place] [address], [place] [address] Jun, [facility] [address] [id number] [address] [place] [address], [place] [address] Jun, [facility] [address] [id number] [address] [place] [address], [place] [address] May, [facility] [address] [id number] [address] [place] [address], [place] [address] May, [facility] [address] [id number] [address] [place] [address], [place] [address] May, [facility] [address] [id number] [address] [place] [address], [place] [address] May, [facility] [address] [id number] [address] [place] [address], [place] [address] Apr, [facility] [address] [id number] [address] [place] [address], [place] [address] Apr, [facility] [address] [id number] [address] [place] [address], [place] [address] November, [facility] [address] [id number] [address] [place] [address], [place] [address] Oct, [facility] [address] [id number] [address] [place] [address], [place] [address] Aug, [facility] [address] [id number] [address] [place] [address], [place] [address] Jun, [facility] [address] [id number] [address] [place] [address], [place] [address] Jun, [facility] [address] [id number] [address] [place] [address], [place] [address] 27 Jun, 2010 [facility] [address] [id number] [address] [place] [address], [place] [address] 03 Jun, 2010 [facility] [address] [id number] [address] [place] [address], [place] [address] 29 May, 2010 [facility] [address] [id number] [address] [place] [address], [place] [address] 27 Apr, 2010 [facility] [address] [id number] [address] [place] [address], [place] [address] Oct, [facility] [address] [id number] [address] [place] [address], [place] [address] 13 Aug, 2009 [facility] [address] [id number] [address] [place] [address], [place] [address] Jul, [facility] [address] [id number] [address] [place] [address], [place] [address] 22 Jun, 2009 [facility] [address] [id number] [address] [place] [address], [place] [address] 16 Jun, 2009 [facility] [address] [id number] [address] [place] [address], [place] [address] 14 Jun, 2009 [facility] [address] [id number] [address] [place] [address], [place] [address] 14 Jun, 2009 [facility] [address] [id number] [address] [place] [address], [place] [address] 09 May, 2009 [facility] [address] [id number] [address] [place] [address], [place] [address] 20 Apr, 2009 [facility] [address] [id number] [address] [place] [address], [place] [address] 15 Mar, 2009 [facility] [address] [id number] [address] [place] [address], [place] [address] 14 Mar, 2009 [facility] [address] [id number] [address] [place] [address], [place] [address] Dec, IMMUNIZATIONS No Known Immunizations SOCIAL HISTORY Never Assessed REASON FOR VISIT EMR-[facility] [place] PLAN OF CARE VITAL SIGNS MEDICATIONS Unknown [...]
--- OUTSIDE RECORDS SUMMARY | 2019-09-01 05:19 | XMS REPORT ---
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 [address], [place] [address] May, [facility] [address] [id number] [address] [place] [address], [place] [address] May, [facility] [address] [id number] [address] [place] [address], [place] [address] May, [facility] [address] [id number] [address] [place] [address], [place] [address] Apr, [facility] [address] [id number] [address] [place] [address], [place] [address] Apr, [facility] [address] [id number] [address] [place] [address], [place] [address] Apr, [facility] [address] [id number] [address] [place] [address], [place] [address] Apr, [facility] [address] [id number] [address] [place] [address], [place] [address] Apr, [facility] [address] [id number] [address] [place] [address], [place] [address] Apr, [facility] [address] [id number] [address] [place] [address] [address] Apr, [facility] [address] [id number] [address] [place] [address], [place] [address] Apr, [facility] [address] [id number] [address] [place] [address], [place] [address] Apr, [facility] [address] [id number] [address] [place] [address], [place] [address] Apr, [facility] [address] [id number] [address] [place] [address], [place] [address] 29 Mar, 2013 [facility] [address] [id number] [address] [place] [address], [place] [address] 29 Mar, 2013 [facility] [address] [id number] [address] [place] [address], [place] [address] Mar, 2013 [facility] [address] [id number] [address] [place] [address], [place] [address] Mar, 2013 [facility] [address] [id number] [address] [place] [address], [place] [address] Mar, 2013 [facility] [address] [id number] [address] [place] [address], [place] [address] 10 Mar, 2013 [facility] [address] [id number] [address] [place] [address], [place] [address] Mar, 2013 [facility] [address] [id number] [address] [place] [address], [place] [address] 04 Sep, 2013 [facility] [address] [id number] [address] [place] [address], [place] [address] Sep, 2013 [facility] [address] [id number] [address] [place] [address], [place] [address] Sep, 2013 [facility] [address] [id number] [address] [place] [address], [place] [address] Mar, 2013 [facility] [address] [id number] [address] [place] [address], [place] [address] Mar, 2013 [facility] [address] [id number] [facility] [place] [address] Feb, [facility] [address] [id number] [address] [place] [address], [place] [address] Feb, [facility] [address] [id number] [address] [place] [address], [place] [address] Jan, [facility] [address] [id number] [address] [place] [address], [place] [address] Jan, [facility] [address] [id number] [address] [place] [address], [place] [address] Jan, [facility] [address] [id number] [address] [place] [address], [place] [address] Jan, [facility] [address] [id number] [address] [place] [address], [place] [address] Dec, [facility] [address] [id number] [address] [place] [address], [place] [address] Dec, [facility] [address] [id number] [address] [place] [address], [place] [address] Dec, [facility] [address] [id number] [address] [place] [address], [place] [address] Dec, [facility] [address] [id number] [address] [place] [address], [place] [address] Dec, [facility] [address] [id number] [address] [place] [address], [place] [address] Dec, [facility] [address] [id number] [address] [place] [address], [place] [address] November, [facility] [address] [id number] [address] [place] [address], [place] [address] November, [facility] [address] [id number] [address] [place] [address], [place] [address] November, [facility] [address] [id number] [address] [place] [address], [place] [address] November, [facility] [address] [id number] [address] [place] [address], [place] [address] November, [facility] [address] [id number] [address] [place] [address], [place] [address] November, [facility], [place] [id number] November, [facility] [address] [id number] [address] [place] [address], [place] [address] November, [facility] [address] [id number] [address] [place] [address], [place] [address] November, [facility] [address] [id number] [address] [place] [address], [place] [address] November, [facility] [address] [id number] [address] [place] [address], [place] [address] November, [facility] [address] [id number] [address] [place] [address], [place] [address] November, [facility] [address] [id number] [address] [place] [address], [place] [address] Oct, [facility] [address] [id number] [address] [place] [address], [place] [address] Oct, [facility] [address] [id number] [address] [place] [address], [place] [address] Oct, [facility] [address] [id number] [address] [place] [address], [place] [address] Oct, [facility] [address] [id number] [address] [place] [address], [place] [address] Oct, [facility] [address] [id number] [address] [place] [address], [place] [address] Oct, [facility] [address] [id number] [address] [place] [address], [place] [address] Oct, [facility] [address] [id number] [address] [place] [address], [place] [address] Oct, [facility] [address] [id number] [facility] [place] [address] Oct, [facility] [address] [id number] [facility] [place] [address] Oct, [facility] [address] [id number] [facility] [place] [address] Oct, [facility] [address] [id number] [address] [place] [address], [place] [address] Oct, [facility] [address] [id number] [address] [place] [address], [place] [address] Oct, [facility] [address] [id number] [address] [place] [address], [place] [address] Oct, [facility] [address] [id number] [address] [place] [address], [place] [address] Oct, [facility] [address] [id number] [address] [place] [address], [place] [address] Sep, [facility] [address] [id number] [address] [place] [address], [place] [address] Sep, [facility] [address] [id number] [address] [place] [address], [place] [address] Sep, [facility] [address] [id number] [address] [place] [address], [place] [address] Sep, [facility] [address] [id number] [address] [place] [address], [place] [address] Aug, [facility] [address] [id number] [address] [place] [address], [place] [address] Aug, [facility] [address] [id number] [address] [place] [address], [place] [address] Aug, [facility] [address] [id number] [address] [place] [address], [place] [address] Aug, [facility] [address] [id number] [address] [place] [address], [place] [address] Jul, [facility] [address] [id number] [address] [place] [address], [place] [address] Jul, [facility] [address] [id number] [address] [place] [address], [place] [address] Jul, [facility] [address] [id number] [address] [place] [address], [place] [address] Jul, [facility] [address] [id number] [address] [place] [address], [place] [address] Jul, [facility] [address] [id number] [address] [place] [address], [place] [address] Jul, [facility] [address] [id number] [address] [place] [address], [place] [address] Jul, [facility] [address] [id number] [address] [place] [address], [place] [address] Jul, [facility] [address] [id number] [address] [place] [address], [place] [address] Jul, [facility] [address] [id number] [address] [place] [address], [place] [address] Jul, [facility] [address] [id number] [address] [place] [address], [place] [address] Jul, [facility] [address] [id number] [address] [place] [address], [place] [address] Jul, [facility] [address] [id number] [address] [place] [address], [place] [address] Jul, [facility] [address] [id number] [address] [place] [address], [place] [address] Jul, [facility] [address] [id number] [address] [place] [address], [place] [address] Jun, [facility] [address] [id number] [address] [place] [address], [place] [address] Jun, [facility] [address] [id number] [address] [place] [address], [place] [address] Jun, [facility] [address] [id number] [address] [place] [address], [place] [address] Jun, [facility] [address] [id number] [address] [place] [address], [place] [address] May, [facility] [address] [id number] [address] [place] [address], [place] [address] May, [facility] [address] [id number] [address] [place] [address], [place] [address] May, [facility] [address] [id number] [address] [place] [address], [place] [address] May, [facility] [address] [id number] [address] [place] [address], [place] [address] May, [facility] [address] [id number] [address] [place] [address], [place] [address] May, [facility] [address] [id number] [address] [place] [address], [place] [address] May, [facility] [address] [id number] [address] [place] [address], [place] [address] May, [facility] [address] [id number] [address] [place] [address], [place] [address] Apr, [facility] [address] [id number] [address] [place] [address], [place] [address] Apr, [facility] [address] [id number] [address] [place] [address], [place] [address] Apr, [facility] [address] [id number] [address] [place] [address], [place] [address] Apr, [facility] [address] [id number] [address] [place] [address] Apr, [facility] [address] [id number] [address] [place] [address], [place] [address] Apr, [facility] [address] [id number] [address] [place] [address], [place] [address] 30 Mar, 2012 [facility] [address] [id number] [address] [place] [address], [place] [address] 26 Mar, 2013 [facility] [address] [id number] [address] [place] [address], [place] [address] 20 Mar, 2013 [facility] [address] [id number] [address] [place] [address], [place] [address] 17 Mar, 2013 [facility] [address] [id number] [address] [place] [address], [place] [address] 16 Mar, 2013 [facility] [address] [id number] [address] [place] [address], [place] [address] 05 Mar, 2013 [facility] [address] [id number] [address] [place] [address], [place] [address] Feb, [facility] [address] [id number] [address] [place] [address], [place] [address] Feb, [facility] [address] [id number] [address] [place] [address], [place] [address] Feb, [facility] [address] [id number] [address] [place] [address], [place] [address] Feb, [facility] [address] [id number] [address] [place] [address], [place] [address] Jan, [facility] [address] [id number] [address] [place] [address], [place] [address] Jan, [facility] [address] [id number] [address] [place] [address], [place] [address] Jan, [facility] [address] [id number] [address] [place] [address], [place] [address] Jan, [facility] [address] [id number] [address] [place] [address], [place] [address] Jan, [facility] [address] [id number] [address] [place] [address], [place] [address] Dec, [facility] [address] [id number] [address] [place] [address], [place] [address] Dec, [facility] [address] [id number] [address] [place] [address], [place] [address] Dec, [facility] [address] [id number] [address] [place] [address], [place] [address] November, [facility] [address] [id number] [address] [place] [address], [place] [address] November, [facility] [address] [id number] [address] [place] [address], [place] [address] November, [facility] [address] [id number] [address] [place] [address], [place] [address] Oct, [facility] [address] [id number] [address] [place] [address], [place] [address] Oct, [facility] [address] [id number] [address] [place] [address], [place] [address] Oct, [facility] [address] [id number] [address] [place] [address], [place] [address] Oct, [facility] [address] [id number] [address] [place] [address], [place] [address] 18 Oct, 2012 [facility] [address] [id number] [address] [place] [address], [place] [address] 17 Oct, 2012 [facility] [address] [id number] [address] [place] [address], [place] [address] 15 Oct, 2012 [facility] [address] [id number] [address] [place] [address], [place] [address] Sep, [facility] [address] [id number] [address] [place] [address], [place] [address] Sep, [facility] [address] [id number] [address] [place] [address], [place] [address] Sep, [facility] [address] [id number] [address] [place] [address], [place] [address] Sep, [facility] [address] [id number] [address] [place] [address], [place] [address] Aug, [facility] [address] [id number] [address] [place] [address], [place] [address] Aug, [facility] [address] [id number] [address] [place] [address], [place] [address] Aug, [facility] [address] [id number] [address] [place] [address], [place] [address] Aug, [facility] [address] [id number] [address] [place] [address], [place] [address] Aug, [facility] [address] [id number] [address] [place] [address], [place] [address] Aug, [facility] [address] [id number] [address] [place] [address], [place] [address] Jul, [facility] [address] [id number] [address] [place] [address], [place] [address] Jul, [facility] [address] [id number] [address] [place] [address], [place] [address] Jul, [facility] [address] [id number] [address] [place] [address], [place] [address] Jul, [facility] [address] [id number] [address] [place] [address], [place] [address] Jul, [facility] [address] [id number] [address] [place] [address], [place] [address] Jul, [facility] [address] [id number] [address] [place] [address], [place] [address] Jun, [facility] [address] [id number] [address] [place] [address], [place] [address] Jun, [facility] [address] [id number] [address] [place] [address], [place] [address] Jun, [facility] [address] [id number] [address] [place] [address], [place] [address] Jun, [facility] [address] [id number] [address] [place] [address], [place] [address] Jun, [facility] [address] [id number] [address] [place] [address], [place] [address] Jun, [facility] [address] [id number] [address] [place] [address], [place] [address] May, [facility] [address] [id number] [address] [place] [address], [place] [address] May, [facility] [address] [id number] [address] [place] [address], [place] [address] May, [facility] [address] [id number] [address] [place] [address], [place] [address] May, [facility] [address] [id number] [address] [place] [address], [place] [address] May, [facility] [address] [id number] [address] [place] [address], [place] [address] May, [facility] [address] [id number] [address] [place] [address], [place] [address] May, [facility] [address] [id number] [address] [place] [address], [place] [address] May, [facility] [address] [id number] [address] [place] [address], [place] [address] May, [facility] [address] [id number] [address] [place] [address], [place] [address] May, [facility] [address] [id number] [address] [place] [address], [place] [address] Apr, [facility] [address] [id number] [address] [place] [address], [place] [address] Apr, [facility] [address] [id number] [address] [place] [address], [place] [address] 23 Apr, 2012 [facility] [address] [id number] [address] [place] [address], [place] [address] 23 Apr, 2012 [facility] [address] [id number] [address] [place] [address], [place] [address] 16 Apr, 2012 [facility] [address] [id number] [address] [place] [address], [place] [address] 16 Apr, 2012 [facility] [address] [id number] [address] [place] [address], [place] [address] 15 Apr, 2012 [facility] [address] [id number] [address] [place] [address], [place] [address] 15 Apr, 2012 [facility] [address] [id number] [address] [place] [address], [place] [address] 05 Apr, 2012 [facility] [address] [id number] [address] [place] [address], [place] [address] 28 Mar, 2012 [facility] [address] [id number] [address] [place] [address], [place] [address] 26 Mar, 2012 [facility] [address] [id number] [address] [place] [address], [place] [address] 25 Mar, 2012 [facility] [address] [id number] [address] [place] [address], [place] [address] 19 Mar, 2012 [facility] [address] [id number] [address] [place] [address] 18 Mar, 2012 [facility] [address] [id number] [address] [place] [address], [place] [address] 05 Mar, 2012 [facility] [address] [id number] [address] [place] [address], [place] [address] 28 Feb, 2012 [facility] [address] [id number] [address] [place] [address] 27 Feb, 2012 [facility] [address] [id number] [address] [place] [address] Feb, [facility] [address] [id number] [address] [place] [address], [place] [address] Jan, [facility] [address] [id number] [address] [place] [address], [place] [address] Jan, [facility] [address] [id number] [address] [place] [address], [place] [address] Jan, [facility] [address] [id number] [address] [place] [address], [place] [address] Jan, [facility] [address] [id number] [address] [place] [address], [place] [address] Dec, [facility] [address] [id number] [address] [place] [address], [place] [address] November, [facility] [address] [id number] [address] [place] [address], [place] [address] November, [facility] [address] [id number] [address] [place] [address], [place] [address] November, [facility] [address] [id number] [address] [place] [address], [place] [address] November, [facility] [address] [id number] [address] [place] [address], [place] [address] November, [facility] [address] [id number] [address] [place] [address], [place] [address] November, [facility] [address] [id number] [address] [place] [address], [place] [address] Oct, [facility] [address] [id number] [address] [place] [address], [place] [address] Oct, [facility] [address] [id number] [address] [place] [address], [place] [address] Sep, [facility] [address] [id number] [address] [place] [address], [place] [address] Sep, [facility] [address] [id number] [address] [place] [address], [place] [address] Sep, [facility] [address] [id number] [address] [place] [address], [place] [address] Aug, [facility] [address] [id number] [address] [place] [address], [place] [address] Aug, [facility] [address] [id number] [address] [place] [address], [place] [address] Aug, [facility] [address] [id number] [address] [place] [address], [place] [address] Aug, [facility] [address] [id number] [address] [place] [address], [place] [address] Aug, [facility] [address] [id number] [address] [place] [address], [place] [address] Aug, [facility] [address] [id number] [address] [place] [address], [place] [address] Jul, [facility] [address] [id number] [address] [place] [address], [place] [address] Jul, [facility] [address] [id number] [address] [place] [address], [place] [address] Jul, [facility] [address] [id number] [address] [place] [address], [place] [address] Jul, [facility] [address] [id number] [address] [place] [address], [place] [address] Jul, [facility] [address] [id number] [address] [place] [address], [place] [address] Jul, [facility] [address] [id number] [address] [place] [address], [place] [address] Jul, [facility] [address] [id number] [address] [place] [address], [place] [address] Jul, [facility] [address] [id number] [address] [place] [address], [place] [address] 10 Jul, 2011 [facility] [address] [id number] [address] [place] [address], [place] [address] Jul, [facility] [address] [id number] [address] [place] [address], [place] [address] Jun, [facility] [address] [id number] [address] [place] [address], [place] [address] Jun, [facility] [address] [id number] [address] [place] [address], [place] [address] Jun, [facility] [address] [id number] [address] [place] [address], [place] [address] Jun, [facility] [address] [id number] [address] [place] [address], [place] [address] May, [facility] [address] [id number] [address] [place] [address], [place] [address] May, [facility] [address] [id number] [address] [place] [address], [place] [address] May, [facility] [address] [id number] [address] [place] [address], [place] [address] May, [facility] [address] [id number] [address] [place] [address], [place] [address] Apr, [facility] [address] [id number] [address] [place] [address], [place] [address] Apr, [facility] [address] [id number] [address] [place] [address], [place] [address] November, [facility] [address] [id number] [address] [place] [address], [place] [address] Oct, [facility] [address] [id number] [address] [place] [address], [place] [address] Aug, [facility] [address] [id number] [address] [place] [address], [place] [address] Jun, [facility] [address] [id number] [address] [place] [address], [place] [address] 28 Jun, 2010 [facility] [address] [id number] [address] [place] [address], [place] [address] 27 Jun, 2010 [facility] [address] [id number] [address] [place] [address], [place] [address] 03 Jun, 2010 [facility] [address] [id number] [address] [place] [address], [place] [address] 29 May, 2010 [facility] [address] [id number] [address] [place] [address], [place] [address] 27 Apr, 2010 [facility] [address] [id number] [address] [place] [address], [place] [address] Oct, [facility] [address] [id number] [address] [place] [address], [place] [address] 13 Aug, 2009 [facility] [address] [id number] [address] [place] [address], [place] [address] Jul, [facility] [address] [id number] [address] [place] [address], [place] [address] 22 Jun, 2009 [facility] [address] [id number] [address] [place] [address], [place] [address] 16 Jun, 2009 [facility] [address] [id number] [address] [place] [address], [place] [address] 14 Jun, 2009 [facility] [address] [id number] [address] [place] [address], [place] [address] 14 Jun, 2009 [facility] [address] [id number] [address] [place] [address], [place] [address] 09 May, 2009 [facility] [address] [id number] [address] [place] [address], [place] [address] 20 Apr, 2009 [facility] [address] [id number] [address] [place] [address], [place] [address] 15 Mar, 2009 [facility] [address] [id number] [address] [place] [address], [place] [address] Mar, [facility] [address] [facility] [id number] [address] [place] [address] Dec, IMMUNIZATIONS Vaccine Route Administration Date Status TDAP (BOOSTRIX) IM Intramuscular September 15, 2018 Administered SOCIAL HISTORY Never Assessed REASON FOR VISIT Pain management (chronic) Pt in to re-establish care --VIGNESH Cedillo PLAN OF CARE Activity Details Follow Up 3 Months Reason:DM VITAL SIGNS Height 66.0 in 2018-09-15 Weight 208 lbs 2018-09-15 Temperature 97.8 degrees Fahrenheit 2018-09-15 Respiratory Rate 18 2018-09-15 BMI 33.57 kg/m2 2018-09-15 Blood pressure systolic 158 mmHg 2018-09-15 Blood pressure diastolic 78 mmHg 2018-09-15 MEDICATIONS Medication Instructions Dosage Frequency Start Date End Date Duration S tatus Amitriptyline HCl 25 MG Orally Once a day 1 tablet 24h 30 days Active Abilify 2 MG Orally Once a day 1 tablet 24h Aug, 30 days Active Loratadine 10 MG Orally Once a day 1 tablet 24h 30 d ay(s) Active Symbicort 160-4.5 MCG/ACT Inhalation Twice a day 2 puffs 12h Active Metformin HCl 500 MG 1 tablet 12h Ac tive Dicyclomine HCl 20 MG Orally 3 times a day 1 tablet 8h 30 day(s) Active Duloxetine HCl 60 MG Orally Twice a day 1 capsule 12h 30 days Active Metoprolol Tartrate 25 MG Orally Twice a day 1 tablet with food 12h 30 day(s) Active Simvastatin 10 MG Orally Once a day 1 tablet in the evening 24h 30 day(s) Active Celecoxib 100 MG Orally Once a day 1 capsule with food 24h 06 2018 90 days Active Rizatriptan Benzoate 10 MG Orally Once a day 1 tablet as needed one t fuentes 24h 1 day(s) Active Protonix 40 MG Orally Once a day 1 tablet 24h 30 day (s) Active Carafate 1 GM 1 tablet on an empty stomach 12h Active Singulair 10 MG Orally Once a day 1 tablet 24h 30 da y(s) Active Albuterol Sulfate (2.5 MG/3ML) 0.083% Inhalation Three times a day 3 ml as needed 8h Jul, Active RESULTS Name Result Date Reference Range A1C (IN HOUSE) 2018-09-15 A1C IN HOUSE 6.3 4.3 - 5.6 % Previous A1c 6.6 Lot [id number] Exp date 04/2020 PROCEDURES Procedure Date Ordered Result Body Site SINGLE IMMUNIZATION ADMIN September 15, 2018 TDAP (BOOSTRIX) September 15, 2018 GLYCATED HEMOGLOBIN TEST September 15, 2018 INSTRUCTIONS MEDICATIONS ADMINISTERED No Known Medications MEDICAL [...]
--- OUTSIDE RECORDS SUMMARY | 2019-09-01 05:19 | XMS REPORT ---
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 [facility] [address] [id number] [address] [place] [address], [place] [address] 02 Jun, 2014 [facility] [address] [id number] [address] [place] [address], [place] [address] 02 Jun, 2014 [facility] [address] [id number] [address] [place] [address], [place] [address] Jun, [facility] [address] [id number] [address] [place] [address], [place] [address] Jun, [facility] [address] [id number] [address] [place] [address], [place] [address] Jun, [facility] [address] [id number] [address] [place] [address], [place] [address] Jun, [facility] [address] [id number] [address] [place] [address], [place] [address] May, [facility] [address] [id number] [address] [place] [address], [place] [address] May, [facility] [address] [id number] [address] [place] [address], [place] [address] May, [facility] [address] [id number] [address] [place] [address], [place] [address] May, [facility] [address] [id number] [address] [place] [address], [place] [address] Apr, [facility] [address] [id number] [address] [place] [address], [place] [address] Apr, [facility] [address] [id number] [address] [place] [address], [place] [address] Apr, [facility] [address] [id number] [address] [place] [address], [place] [address] Apr, [facility] [address] [id number] [address] [place] [address], [place] [address] Apr, [facility] [address] [id number] [address] [place] [address], [place] [address] Apr, [facility] [address] [id number] [address] [place] [address], [place] [address] Apr, [facility] [address] [id number] [address] [place] [address], [place] [address] Apr, [facility] [address] [id number] [address] [place] [address], [place] [address] Apr, [facility] [address] [id number] [address] [place] [address], [place] [address] Apr, [facility] [address] [id number] [address] [place] [address], [place] [address] Mar, 2013 [facility] [address] [id number] [address] [place] [address], [place] [address] 29 Mar, 2013 [facility] [address] [id number] [address] [place] [address], [place] [address] Mar, 2013 [facility] [address] [id number] [address] [place] [address], [place] [address] Mar, 2013 [facility] [address] [id number] [address] [place] [address], [place] [address] Mar, 2013 [facility] [address] [id number] [address] [place] [address], [place] [address] Mar, 2013 [facility] [address] [id number] [address] [place] [address], [place] [address] Mar, 2013 [facility] [address] [id number] [address] [place] [address], [place] [address] Mar, 2013 [facility] [address] [id number] [address] [place] [address], [place] [address] Mar, 2013 [facility] [address] [id number] [address] [place] [address], [place] [address] Mar, 2013 [facility] [address] [id number] [address] [place] [address], [place] [address] Mar, 2013 [facility] [address] [id number] [address] [place] [address], [place] [address] Mar, 2013 [facility] [address] [id number] [address] [place] [address], [place] [address] Feb, [facility] [address] [id number] [facility] [place] [address] Feb, [facility] [address] [id number] [address] [place] [address], [place] [address] Jan, [facility] [address] [id number] [facility] [place] [address] Jan, [facility] [address] [id number] [address] [place] [address], [place] [address] Jan, [facility] [address] [id number] [address] [place] [address], [place] [address] Jan, [facility] [address] [id number] [address] [place] [address], [place] [address] Dec, [facility] [address] [id number] [address] [place] [address], [place] [address] Dec, [facility] [address] [id number] [address] [place] [address], [place] [address] Dec, [facility] [address] [id number] [address] [place] [address], [place] [address] Dec, [facility] [address] [id number] [address] [place] [address], [place] [address] Dec, [facility] [address] [id number] [address] [place] [address], [place] [address] Dec, [facility] [address] [id number] [address] [place] [address], [place] [address] November, [facility] [address] [id number] [address] [place] [address], [place] [address] November, [facility] [address] [id number] [address] [place] [address], [place] [address] November, [facility] [address] [id number] [address] [place] [address], [place] [address] November, [facility] [address] [id number] [address] [place] [address], [place] [address] November, [facility] [address] [id number] [address] [place] [address], [place] [address] November, [facility] [address] [place] [id number] November, [facility] [address] [id number] [address] [place] [address], [place] [address] November, [facility] [address] [id number] [address] [place] [address], [place] [address] November, [facility] [address] [id number] [address] [place] [address], [place] [address] November, [facility] [address] [id number] [address] [place] [address], [place] [address] November, [facility] [address] [id number] [address] [place] [address], [place] [address] November, [facility] [address] [id number] [address] [place] [address], [place] [address] Oct, [facility] [address] [id number] [address] [place] [address], [place] [address] Oct, [facility] [address] [id number] [address] [place] [address], [place] [address] Oct, [facility] [address] [id number] [address] [place] [address], [place] [address] Oct, [facility] [address] [id number] [address] [place] [address], [place] [address] Oct, [facility] [address] [id number] [address] [place] [address], [place] [address] Oct, [facility] [address] [id number] [address] [place] [address], [place] [address] Oct, [facility] [address] [id number] [address] [place] [address], [place] [address] Oct, [facility] [address] [id number] [address] [place] [address], [place] [address] Oct, [facility] [address] [id number] [facility] [place] [address] Oct, [facility] [address] [id number] [facility] [place] [address] Oct, [facility] [address] [id number] [facility] [place] [address] Oct, [facility] [address] [id number] [address] [place] [address], [place] [address] Oct, [facility] [address] [id number] [address] [place] [address], [place] [address] Oct, [facility] [address] [id number] [address] [place] [address], [place] [address] Oct, [facility] [address] [id number] [address] [place] [address], [place] [address] Sep, [facility] [address] [id number] [address] [place] [address], [place] [address] Sep, [facility] [address] [id number] [address] [place] [address], [place] [address] Sep, [facility] [address] [id number] [address] [place] [address], [place] [address] Sep, [facility] [address] [id number] [address] [place] [address], [place] [address] Aug, [facility] [place] [facility] [address] [id number] [address] [place] [address], [place] [address] Aug, [facility] [place] [facility] [address] [id number] [address] [place] [address], [place] [address] Aug, [facility] [place] [facility] [address] [id number] [address] [place] [address], [place] [address] Aug, [facility] [place] [facility] [address] [id number] [address] [place] [address], [place] [address] Jul, [facility] [place] [facility] [address] [id number] [address] [place] [address] Jul, [facility] [address] [id number] [address] [place] [address], [place] [address] Jul, [facility] [address] [id number] [address] [place] [address], [place] [address] Jul, [facility] [address] [id number] [address] [place] [address], [place] [address] Jul, [facility] [address] [id number] [address] [place] [address], [place] [address] Jul, [facility] [address] [id number] [address] [place] [address], [place] [address] Jul, [facility] [address] [id number] [address] [place] [address], [place] [address] Jul, [facility] [address] [id number] [address] [place] [address], [place] [address] Jul, [facility] [address] [id number] [address] [place] [address], [place] [address] Jul, [facility] [address] [id number] [address] [place] [address], [place] [address] Jul, [facility] [address] [id number] [address] [place] [address], [place] [address] Jul, [facility] [address] [id number] [address] [place] [address], [place] [address] Jul, [facility] [address] [id number] [address] [place] [address], [place] [address] Jul, [facility] [address] [id number] [address] [place] [address], [place] [address] Jun, [facility] [address] [id number] [address] [place] [address], [place] [address] Jun, [facility] [address] [id number] [address] [place] [address], [place] [address] Jun, [facility] [address] [id number] [address] [place] [address], [place] [address] Jun, [facility] [address] [id number] [address] [place] [address], [place] [address] May, [facility] [address] [id number] [address] [place] [address], [place] [address] May, [facility] [address] [id number] [address] [place] [address], [place] [address] May, [facility] [address] [id number] [address] [place] [address], [place] [address] May, [facility] [address] [id number] [address] [place] [address], [place] [address] May, [facility] [address] [id number] [address] [place] [address], [place] [address] May, [facility] [address] [id number] [address] [place] [address], [place] [address] May, [facility] [address] [id number] [address] [place] [address], [place] [address] May, [facility] [address] [id number] [address] [place] [address], [place] [address] Apr, [facility] [address] [id number] [address] [place] [address], [place] [address] Apr, [facility] [address] [id number] [address] [place] [id number] Apr, [facility] [address] [id number] [address] [place] [address], [place] [address] Apr, [facility] [address] [id number] [address] [place] [address], [place] [address] Apr, [facility] [address] [id number] [address] [place] [id number] Apr, [facility] [address] [id number] [address] [place] [id number] 30 Mar, 2012 [facility] [address] [id number] [address] [place] [address], [place] [address] 26 Mar, 2013 [facility] [address] [id number] [address] [place] [address], [place] [id number] 20 Mar, 2013 [facility] [address] [id number] [address] [place] [address] [id number] 17 Mar, 2013 [facility] [address] [id number] [address] [place] [address], [place] [address] 16 Mar, 2013 [facility] [address] [id number] [address] [place] [address], [place] [address] 05 Mar, 2013 [facility] [address] [id number] [address] [place] [address], [place] [address] Feb, [facility] [address] [id number] [address] [place] [address], [place] [address] Feb, [facility] [address] [id number] [address] [place] [address], [place] [address] Feb, [facility] [address] [id number] [address] [place] [address], [place] [address] Feb, [facility] [address] [id number] [address] [place] [address], [place] [address] Jan, [facility] [address] [id number] [address] [place] [address], [place] [address] Jan, [facility] [address] [id number] [address] [place] [address], [place] [address] Jan, [facility] [address] [id number] [address] [place] [address], [place] [address] Jan, [facility] [address] [id number] [address] [place] [address], [place] [address] Jan, [facility] [address] [id number] [address] [place] [address], [place] [address] Dec, [facility] [address] [id number] [address] [place] [address], [place] [address] Dec, [facility] [address] [id number] [address] [place] [address], [place] [address] Dec, [facility] [address] [id number] [address] [place] [address], [place] [address] November, [facility] [address] [id number] [address] [place] [address], [place] [address] November, [facility] [address] [id number] [address] [place] [address], [place] [address] November, [facility] [address] [id number] [address] [place] [address], [place] [address] Oct, [facility] [address] [id number] [address] [place] [address], [place] [address] Oct, [facility] [address] [id number] [address] [place] [address], [place] [address] Oct, [facility] [address] [id number] [address] [place] [address], [place] [address] Oct, [facility] [address] [id number] [address] [place] [address], [place] [address] 18 Oct, 2012 [facility] [address] [id number] [address] [place] [address], [place] [address] 17 Oct, 2012 [facility] [address] [id number] [address] [place] [address], [place] [address] 15 Oct, 2012 [facility] [address] [id number] [address] [place] [address], [place] [address] Sep, [facility] [address] [id number] [address] [place] [address], [place] [address] Sep, [facility] [address] [id number] [address] [place] [address], [place] [address] Sep, [facility] [address] [id number] [address] [place] [address], [place] [address] Sep, [facility] [address] [id number] [address] [place] [address], [place] [address] Aug, [facility] [address] [id number] [address] [place] [address], [place] [address] Aug, [facility] [address] [id number] [address] [place] [address], [place] [address] Aug, [facility] [address] [id number] [address] [place] [address], [place] [address] Aug, [facility] [address] [id number] [address] [place] [address], [place] [address] Aug, [facility] [address] [id number] [address] [place] [address], [place] [address] Aug, [facility] [address] [id number] [address] [place] [address], [place] [address] Jul, [facility] [address] [id number] [address] [place] [address], [place] [address] Jul, [facility] [address] [id number] [address] [place] [address], [place] [address] Jul, [facility] [address] [id number] [address] [place] [address], [place] [address] Jul, [facility] [address] [id number] [address] [place] [address], [place] [address] Jul, [facility] [address] [id number] [address] [place] [address], [place] [address] Jul, [facility] [address] [id number] [address] [place] [address], [place] [address] Jun, [facility] [address] [id number] [address] [place] [address], [place] [address] Jun, [facility] [address] [id number] [address] [place] [address], [place] [address] Jun, [facility] [address] [id number] [address] [place] [address], [place] [address] Jun, [facility] [address] [id number] [address] [place] [address], [place] [address] Jun, [facility] [address] [id number] [address] [place] [address], [place] [address] Jun, [facility] [address] [id number] [address] [place] [address], [place] [address] May, [facility] [address] [id number] [address] [place] [address], [place] [address] May, [facility] [address] [id number] [address] [place] [address], [place] [address] May, [facility] [address] [id number] [address] [place] [address], [place] [address] May, [facility] [address] [id number] [address] [place] [address], [place] [address] May, [facility] [address] [id number] [address] [place] [address], [place] [address] May, [facility] [address] [id number] [address] [place] [address], [place] [address] May, [facility] [address] [id number] [address] [place] [address], [place] [address] May, [facility] [address] [id number] [address] [place] [address], [place] [address] May, [facility] [address] [id number] [address] [place] [address], [place] [address] May, [facility] [address] [id number] [address] [place] [address], [place] [address] Apr, [facility] [address] [id number] [address] [place] [address], [place] [address] Apr, [facility] [address] [id number] [address] [place] [address], [place] [address] Apr, [facility] [address] [id number] [address] [place] [address], [place] [address] 23 Apr, 2012 [facility] [address] [id number] [address] [place] [address], [place] [address] 16 Apr, 2012 [facility] [address] [id number] [address] [place] [address], [place] [address] 16 Apr, 2012 [facility] [address] [id number] [address] [place] [address], [place] [address] 15 Apr, 2012 [facility] [address] [id number] [address] [place] [address], [place] [address] 15 Apr, 2012 [facility] [address] [id number] [address] [place] [address], [place] [address] 05 Apr, 2012 [facility] [address] [id number] [address] [place] [address], [place] [address] 28 Mar, 2012 [facility] [address] [id number] [address] [place] [address], [place] [address] 26 Mar, 2012 [facility] [address] [id number] [address] [place] [address], [place] [address] 25 Mar, 2012 [facility] [address] [id number] [address] [place] [address] 19 Mar, 2012 [facility] [address] [id number] [address] [place] [address] 18 Mar, 2012 [facility] [address] [id number] [address] [place] [address] 05 Mar, 2012 [facility] [address] [id number] [address] [place] [address], [place] [address] Feb, [facility] [address] [id number] [address] [place] [address], [place] [address] Feb, [facility] [address] [id number] [address] [place] [address] Feb, [facility] [address] [id number] [address] [place] [address] Jan, [facility] [address] [id number] [address] [place] [address], [place] [address] Jan, [facility] [address] [id number] [address] [place] [address], [place] [address] Jan, [facility] [address] [id number] [address] [place] [address], [place] [address] Jan, [facility] [address] [id number] [address] [place] [address], [place] [address] Dec, [facility] [address] [id number] [address] [place] [address], [place] [address] November, [facility] [address] [id number] [address] [place] [address], [place] [address] November, [facility] [address] [id number] [address] [place] [address], [place] [address] November, [facility] [address] [id number] [address] [place] [address], [place] [address] November, [facility] [address] [id number] [address] [place] [address], [place] [address] November, [facility] [address] [id number] [address] [place] [address], [place] [address] November, [facility] [address] [id number] [address] [place] [address], [place] [address] Oct, [facility] [address] [id number] [address] [place] [address], [place] [address] Oct, [facility] [address] [id number] [address] [place] [address], [place] [address] Sep, [facility] [address] [id number] [address] [place] [address], [place] [address] Sep, [facility] [address] [id number] [address] [place] [address], [place] [address] Sep, [facility] [address] [id number] [address] [place] [address], [place] [address] Aug, [facility] [address] [id number] [address] [place] [address], [place] [address] Aug, [facility] [address] [id number] [address] [place] [address], [place] [address] 14 Aug, 2011 [facility] [address] [id number] [address] [place] [address], [place] [address] Aug, [facility] [address] [id number] [address] [place] [address], [place] [address] Aug, [facility] [address] [id number] [address] [place] [address], [place] [address] Aug, [facility] [address] [id number] [address] [place] [address], [place] [address] Jul, [facility] [address] [id number] [address] [place] [address], [place] [address] Jul, [facility] [address] [id number] [address] [place] [address], [place] [address] Jul, [facility] [address] [id number] [address] [place] [address], [place] [address] Jul, [facility] [address] [id number] [address] [place] [address], [place] [address] Jul, [facility] [address] [id number] [address] [place] [address], [place] [address] Jul, [facility] [address] [id number] [address] [place] [address], [place] [address] Jul, [facility] [address] [id number] [address] [place] [address], [place] [address] Jul, [facility] [address] [id number] [address] [place] [address], [place] [address] Jul, [facility] [address] [id number] [address] [place] [address], [place] [address] Jul, [facility] [address] [id number] [address] [place] [address], [place] [address] Jun, [facility] [address] [id number] [address] [place] [address], [place] [address] Jun, [facility] [address] [id number] [address] [place] [address], [place] [address] Jun, [facility] [address] [id number] [address] [place] [address], [place] [address] Jun, [facility] [address] [id number] [address] [place] [address], [place] [address] May, [facility] [address] [id number] [address] [place] [address], [place] [address] May, [facility] [address] [id number] [address] [place] [address], [place] [address] May, [facility] [address] [id number] [address] [place] [address], [place] [address] May, [facility] [address] [id number] [address] [place] [address], [place] [address] Apr, [facility] [address] [id number] [address] [place] [address], [place] [address] Apr, [facility] [address] [id number] [address] [place] [address], [place] [address] November, [facility] [address] [id number] [address] [place] [address], [place] [address] Oct, [facility] [address] [id number] [address] [place] [address], [place] [address] Aug, [facility] [address] [id number] [address] [place] [address], [place] [address] Jun, [facility] [address] [id number] [address] [place] [address], [place] [address] Jun, [facility] [address] [id number] [address] [place] [address], [place] [address] 27 Jun, 2010 [facility] [address] [id number] [address] [place] [address], [place] [address] 03 Jun, 2010 [facility] [address] [id number] [address] [place] [address], [place] [address] 29 May, 2010 [facility] [address] [id number] [address] [place] [address], [place] [address] 27 Apr, 2010 [facility] [address] [id number] [address] [place] [address], [place] [address] Oct, [facility] [address] [id number] [address] [place] [address], [place] [address] 13 Aug, 2009 [facility] [address] [id number] [address] [place] [address], [place] [address] Jul, [facility] [address] [id number] [address] [place] [address], [place] [address] 22 Jun, 2009 [facility] [address] [id number] [address] [place] [address], [place] [address] 16 Jun, 2009 [facility] [address] [id number] [address] [place] [address], [place] [address] 14 Jun, 2009 [facility] [address] [id number] [address] [place] [address], [place] [address] 14 Jun, 2009 [facility] [address] [id number] [address] [place] [address], [place] [address] 09 May, 2009 [facility] [address] [id number] [address] [place] [address], [place] [address] 20 Apr, 2009 [facility] [address] [id number] [address] [place] [address], [place] [address] 15 Mar, 2009 [facility] [address] [id number] [address] [place] [address], [place] [address] 14 Mar, 2009 [facility] [address] [id number] [address] [place] [address], [place] [address] Dec, IMMUNIZATIONS No Known Immunizations SOCIAL HISTORY Never Assessed [place]AS[place] FOR [place]ISIT [place] [place] VITAL SIGNS MEDICATIONS Unknown [...]
--- OUTSIDE RECORDS SUMMARY | 2019-09-01 05:20 | XMS REPORT ---
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 [address], [place] [address] Jun, [facility] [address] [id number] [address] [place] [address], [place] [address] 02 Jun, 2014 [facility] [address] [id number] [address] [place] [address], [place] [address] 02 Jun, 2014 [facility] [address] [id number] [address] [place] [address], [place] [address] Jun, [facility] [address] [id number] [address] [place] [address], [place] [address] Jun, [facility] [address] [id number] [address] [place] [address], [place] [address] Jun, [facility] [address] [id number] [address] [place] [address], [place] [address] Jun, [facility] [address] [id number] [address] [place] [address], [place] [address] May, [facility] [address] [id number] [address] [place] [address], [place] [address] May, [facility] [address] [id number] [address] [place] [address], [place] [address] May, [facility] [address] [id number] [address] [place] [address], [place] [address] May, [facility] [address] [id number] [address] [place] [address], [place] [address] Apr, [facility] [address] [id number] [address] [place] [address], [place] [address] Apr, [facility] [address] [id number] [address] [place] [address], [place] [address] Apr, [facility] [address] [id number] [address] [place] [address], [place] [address] Apr, [facility] [address] [id number] [address] [place] [address], [place] [address] Apr, [facility] [address] [id number] [address] [place] [address], [place] [address] Apr, [facility] [address] [id number] [address] [place] [address], [place] [address] Apr, [facility] [address] [id number] [address] [place] [address], [place] [address] Apr, [facility] [address] [id number] [address] [place] [address], [place] [address] Apr, [facility] [address] [id number] [address] [place] [address], [place] [address] Apr, [facility] [address] [id number] [address] [place] [address], [place] [address] Mar, 2013 [facility] [address] [id number] [address] [place] [address], [place] [address] 29 Mar, 2013 [facility] [address] [id number] [address] [place] [address], [place] [address] Mar, 2013 [facility] [address] [id number] [address] [place] [address], [place] [address] Mar, 2013 [facility] [address] [id number] [address] [place] [address], [place] [address] Mar, 2013 [facility] [address] [id number] [address] [place] [address], [place] [address] Mar, 2013 [facility] [address] [id number] [address] [place] [address], [place] [address] Mar, 2013 [facility] [address] [id number] [address] [place] [address], [place] [address] Mar, 2013 [facility] [address] [id number] [address] [place] [address], [place] [address] Mar, 2013 [facility] [address] [id number] [address] [place] [address], [place] [address] Mar, 2013 [facility] [address] [id number] [address] [place] [address], [place] [address] Mar, 2013 [facility] [address] [id number] [address] [place] [address], [place] [address] Mar, 2013 [facility] [address] [id number] [address] [place] [address], [place] [address] Feb, [facility] [address] [id number] [facility] [place] [address] Feb, [facility] [address] [id number] [address] [place] [address], [place] [address] Jan, [facility] [address] [id number] [facility] [place] [address] Jan, [facility] [address] [id number] [address] [place] [address], [place] [address] Jan, [facility] [address] [id number] [address] [place] [address], [place] [address] Jan, [facility] [address] [id number] [address] [place] [address], [place] [address] Dec, [facility] [address] [id number] [address] [place] [address], [place] [address] Dec, [facility] [address] [id number] [address] [place] [address], [place] [address] Dec, [facility] [address] [id number] [address] [place] [address], [place] [address] Dec, [facility] [address] [id number] [address] [place] [address], [place] [address] Dec, [facility] [address] [id number] [address] [place] [address], [place] [address] Dec, [facility] [address] [id number] [address] [place] [address], [place] [address] November, [facility] [address] [id number] [address] [place] [address], [place] [address] November, [facility] [address] [id number] [address] [place] [address], [place] [address] November, [facility] [address] [id number] [address] [place] [address], [place] [address] November, [facility] [address] [id number] [address] [place] [address], [place] [address] November, [facility] [address] [id number] [address] [place] [address], [place] [address] November, [facility] [address] [place] [id number] November, [facility] [address] [id number] [address] [place] [address], [place] [address] November, [facility] [address] [id number] [address] [place] [address], [place] [address] November, [facility] [address] [id number] [address] [place] [address], [place] [address] November, [facility] [address] [id number] [address] [place] [address], [place] [address] November, [facility] [address] [id number] [address] [place] [address], [place] [address] November, [facility] [address] [id number] [address] [place] [address], [place] [address] Oct, [facility] [address] [id number] [address] [place] [address], [place] [address] Oct, [facility] [address] [id number] [address] [place] [address], [place] [address] Oct, [facility] [address] [id number] [address] [place] [address], [place] [address] Oct, [facility] [address] [id number] [address] [place] [address], [place] [address] Oct, [facility] [address] [id number] [address] [place] [address], [place] [address] Oct, [facility] [address] [id number] [address] [place] [address], [place] [address] Oct, [facility] [address] [id number] [address] [place] [address], [place] [address] Oct, [facility] [address] [id number] [address] [place] [address], [place] [address] Oct, [facility] [address] [id number] [facility] [place] [address] Oct, [facility] [address] [id number] [facility] [place] [address] Oct, [facility] [place] [facility] [address] [id number] [facility] [place] [address] Oct, [facility] [place] [facility] [address] [id number] [address] [place] [address], [place] [address] Oct, [facility] [place] [facility] [address] [id number] [address] [place] [address], [place] [address] Oct, [facility] [place] [facility] [address] [id number] [address] [place] [address], [place] [address] Oct, [facility] [place] [facility] [address] [id number] [address] [place] [address], [place] [address] Sep, [facility] [place] [facility] [address] [id number] [address] [place] [address], [place] [address] Sep, [facility] [place] [facility] [address] [id number] [address] [place] [address], [place] [address] Sep, [facility] [place] [facility] [address] [id number] [address] [place] [address], [place] [address] Sep, [facility] [place] [facility] [address] [id number] [address] [place] [address], [place] [address] Aug, [facility] [place] [facility] [address] [id number] [address] [place] [address], [place] [address] Aug, [facility] [place] [facility] [address] [id number] [address] [place] [address], [place] [address] Aug, [facility] [place] [facility] [address] [id number] [address] [place] [address], [place] [address] Aug, [facility] [place] [facility] [address] [id number] [address] [place] [address], [place] [address] Jul, [facility] [place] [facility] [address] [id number] [address] [place] [address] Jul, [facility] [address] [id number] [address] [place] [address], [place] [address] Jul, [facility] [address] [id number] [address] [place] [address], [place] [address] Jul, [facility] [address] [id number] [address] [place] [address], [place] [address] Jul, [facility] [address] [id number] [address] [place] [address], [place] [address] Jul, [facility] [address] [id number] [address] [place] [address], [place] [address] Jul, [facility] [address] [id number] [address] [place] [address], [place] [address] Jul, [facility] [address] [id number] [address] [place] [address], [place] [address] Jul, [facility] [address] [id number] [address] [place] [address], [place] [address] Jul, [facility] [address] [id number] [address] [place] [address], [place] [address] Jul, [facility] [address] [id number] [address] [place] [address], [place] [address] Jul, [facility] [address] [id number] [address] [place] [address], [place] [address] Jul, [facility] [address] [id number] [address] [place] [address], [place] [address] Jul, [facility] [address] [id number] [address] [place] [address], [place] [address] Jun, [facility] [address] [id number] [address] [place] [address], [place] [address] Jun, [facility] [address] [id number] [address] [place] [address], [place] [address] Jun, [facility] [address] [id number] [address] [place] [address], [place] [address] Jun, [facility] [address] [id number] [address] [place] [address], [place] [address] May, [facility] [address] [id number] [address] [place] [address], [place] [address] May, [facility] [address] [id number] [address] [place] [address], [place] [address] May, [facility] [address] [id number] [address] [place] [address], [place] [address] May, [facility] [address] [id number] [address] [place] [address], [place] [address] May, [facility] [address] [id number] [address] [place] [address], [place] [address] May, [facility] [address] [id number] [address] [place] [address], [place] [address] May, [facility] [address] [id number] [address] [place] [address], [place] [address] May, [facility] [address] [id number] [address] [place] [address], [place] [address] Apr, [facility] [address] [id number] [address] [place] [address], [place] [address] Apr, [facility] [address] [id number] [address] [place] [address] Apr, [facility] [address] [id number] [address] [place] [address], [place] [address] Apr, [facility] [address] [id number] [address] [place] [address], [place] [address] Apr, [facility] [address] [id number] [address] [place] [address] Apr, [facility] [address] [id number] [address] [place] [address] 30 Mar, 2012 [facility] [address] [id number] [address] [place] [address], [place] [address] 26 Mar, 2013 [facility] [address] [id number] [address] [place] [address], [place] [address] 20 Mar, 2013 [facility] [address] [id number] [address] [place] [address], [place] [address] 17 Mar, 2013 [facility] [address] [id number] [address] [place] [address], [place] [address] 16 Mar, 2013 [facility] [address] [id number] [address] [place] [address], [place] [address] 05 Mar, 2013 [facility] [address] [id number] [address] [place] [address], [place] [address] Feb, [facility] [address] [id number] [address] [place] [address], [place] [address] Feb, [facility] [address] [id number] [address] [place] [address], [place] [address] Feb, [facility] [address] [id number] [address] [place] [address], [place] [address] Feb, [facility] [address] [id number] [address] [place] [address], [place] [address] Jan, [facility] [address] [id number] [address] [place] [address], [place] [address] Jan, [facility] [address] [id number] [address] [place] [address], [place] [address] Jan, [facility] [address] [id number] [address] [place] [address], [place] [address] Jan, [facility] [address] [id number] [address] [place] [address], [place] [address] Jan, [facility] [address] [id number] [address] [place] [address], [place] [address] Dec, [facility] [address] [id number] [address] [place] [address], [place] [address] Dec, [facility] [address] [id number] [address] [place] [address], [place] [address] Dec, [facility] [address] [id number] [address] [place] [address], [place] [address] November, [facility] [address] [id number] [address] [place] [address], [place] [address] November, [facility] [address] [id number] [address] [place] [address], [place] [address] November, [facility] [address] [id number] [address] [place] [address], [place] [address] Oct, [facility] [address] [id number] [address] [place] [address], [place] [address] Oct, [facility] [address] [id number] [address] [place] [address], [place] [address] Oct, [facility] [address] [id number] [address] [place] [address], [place] [address] Oct, [facility] [address] [id number] [address] [place] [address], [place] [address] 18 Oct, 2012 [facility] [address] [id number] [address] [place] [address], [place] [address] 17 Oct, 2012 [facility] [address] [id number] [address] [place] [address], [place] [address] 15 Oct, 2012 [facility] [address] [id number] [address] [place] [address], [place] [address] Sep, [facility] [address] [id number] [address] [place] [address], [place] [address] Sep, [facility] [address] [id number] [address] [place] [address], [place] [address] Sep, [facility] [address] [id number] [address] [place] [address], [place] [address] Sep, [facility] [address] [id number] [address] [place] [address], [place] [address] Aug, [facility] [address] [id number] [address] [place] [address], [place] [address] Aug, [facility] [address] [id number] [address] [place] [address], [place] [address] Aug, [facility] [address] [id number] [address] [place] [address], [place] [address] Aug, [facility] [address] [id number] [address] [place] [address], [place] [address] Aug, [facility] [address] [id number] [address] [place] [address], [place] [address] Aug, [facility] [address] [id number] [address] [place] [address], [place] [address] Jul, [facility] [address] [id number] [address] [place] [address], [place] [address] Jul, [facility] [address] [id number] [address] [place] [address], [place] [address] Jul, [facility] [address] [id number] [address] [place] [address], [place] [address] Jul, [facility] [address] [id number] [address] [place] [address], [place] [address] Jul, [facility] [address] [id number] [address] [place] [address], [place] [address] Jul, [facility] [address] [id number] [address] [place] [address], [place] [address] Jun, [facility] [address] [id number] [address] [place] [address], [place] [address] Jun, [facility] [address] [id number] [address] [place] [address], [place] [address] Jun, [facility] [address] [id number] [address] [place] [address], [place] [address] Jun, [facility] [address] [id number] [address] [place] [address], [place] [address] Jun, [facility] [address] [id number] [address] [place] [address], [place] [address] Jun, [facility] [address] [id number] [address] [place] [address], [place] [address] May, [facility] [address] [id number] [address] [place] [address], [place] [address] May, [facility] [address] [id number] [address] [place] [address], [place] [address] May, [facility] [address] [id number] [address] [place] [address], [place] [address] May, [facility] [address] [id number] [address] [place] [address], [place] [address] May, [facility] [address] [id number] [address] [place] [address], [place] [address] May, [facility] [address] [id number] [address] [place] [address], [place] [address] May, [facility] [address] [id number] [address] [place] [address], [place] [address] May, [facility] [address] [id number] [address] [place] [address], [place] [address] May, [facility] [address] [id number] [address] [place] [address], [place] [address] May, [facility] [address] [id number] [address] [place] [address], [place] [address] Apr, [facility] [address] [id number] [address] [place] [address], [place] [address] Apr, [facility] [address] [id number] [address] [place] [address], [place] [address] Apr, [facility] [address] [id number] [address] [place] [address], [place] [address] 23 Apr, 2012 [facility] [address] [id number] [address] [place] [address], [place] [address] 16 Apr, 2012 [facility] [address] [id number] [address] [place] [address], [place] [address] 16 Apr, 2012 [facility] [address] [id number] [address] [place] [address], [place] [address] 15 Apr, 2012 [facility] [address] [id number] [address] [place] [address], [place] [address] 15 Apr, 2012 [facility] [address] [id number] [address] [place] [address], [place] [address] 05 Apr, 2012 [facility] [address] [id number] [address] [place] [address], [place] [address] 28 Mar, 2012 [facility] [address] [id number] [address] [place] [address], [place] [address] 26 Mar, 2012 [facility] [address] [id number] [address] [place] [address], [place] [address] 25 Mar, 2012 [facility] [address] [id number] [address] [place] [address] 19 Mar, 2012 [facility] [address] [id number] [address] [place] [address] 18 Mar, 2012 [facility] [address] [id number] [address] [place] [address] 05 Mar, 2012 [facility] [address] [id number] [address] [place] [address], [place] [address] Feb, [facility] [address] [id number] [address] [place] [address], [place] [address] Feb, [facility] [address] [id number] [address] [place] [address] Feb, [facility] [address] [id number] [address] [place] [address] Jan, [facility] [address] [id number] [address] [place] [address], [place] [address] Jan, [facility] [address] [id number] [address] [place] [address], [place] [address] Jan, [facility] [address] [id number] [address] [place] [address], [place] [address] Jan, [facility] [address] [id number] [address] [place] [address], [place] [address] Dec, [facility] [address] [id number] [address] [place] [address], [place] [address] November, [facility] [address] [id number] [address] [place] [address], [place] [address] November, [facility] [address] [id number] [address] [place] [address], [place] [address] November, [facility] [address] [id number] [address] [place] [address], [place] [address] November, [facility] [address] [id number] [address] [place] [address], [place] [address] November, [facility] [address] [id number] [address] [place] [address], [place] [address] November, [facility] [address] [id number] [address] [place] [address], [place] [address] Oct, [facility] [address] [id number] [address] [place] [address], [place] [address] Oct, [facility] [address] [id number] [address] [place] [address], [place] [address] Sep, [facility] [address] [id number] [address] [place] [address], [place] [address] Sep, [facility] [address] [id number] [address] [place] [address], [place] [address] Sep, [facility] [address] [id number] [address] [place] [address], [place] [address] Aug, [facility] [address] [id number] [address] [place] [address], [place] [address] Aug, [facility] [address] [id number] [address] [place] [address], [place] [address] 14 Aug, 2011 [facility] [address] [id number] [address] [place] [address], [place] [address] Aug, [facility] [address] [id number] [address] [place] [address], [place] [address] Aug, [facility] [address] [id number] [address] [place] [address], [place] [address] Aug, [facility] [address] [id number] [address] [place] [address], [place] [address] Jul, [facility] [address] [id number] [address] [place] [address], [place] [address] Jul, [facility] [address] [id number] [address] [place] [address], [place] [address] Jul, [facility] [address] [id number] [address] [place] [address], [place] [address] Jul, [facility] [address] [id number] [address] [place] [address], [place] [address] Jul, [facility] [address] [id number] [address] [place] [address], [place] [address] Jul, [facility] [address] [id number] [address] [place] [address], [place] [address] Jul, [facility] [address] [id number] [address] [place] [address], [place] [address] Jul, [facility] [address] [id number] [address] [place] [address], [place] [address] Jul, [facility] [address] [id number] [address] [place] [address], [place] [address] Jul, [facility] [address] [id number] [address] [place] [address], [place] [address] Jun, [facility] [address] [id number] [address] [place] [address], [place] [address] Jun, [facility] [address] [id number] [address] [place] [address], [place] [address] Jun, [facility] [address] [id number] [address] [place] [address], [place] [address] Jun, [facility] [address] [id number] [address] [place] [address], [place] [address] May, [facility] [address] [id number] [address] [place] [address], [place] [address] May, [facility] [address] [id number] [address] [place] [address], [place] [address] May, [facility] [address] [id number] [address] [place] [address], [place] [address] May, [facility] [address] [id number] [address] [place] [address], [place] [address] Apr, [facility] [address] [id number] [address] [place] [address], [place] [address] Apr, [facility] [address] [id number] [address] [place] [address], [place] [address] November, [facility] [address] [id number] [address] [place] [address], [place] [address] Oct, [facility] [address] [id number] [address] [place] [address], [place] [address] Aug, [facility] [address] [id number] [address] [place] [address], [place] [address] Jun, [facility] [address] [id number] [address] [place] [address], [place] [address] Jun, [facility] [address] [id number] [address] [place] [address], [place] [address] 27 Jun, 2010 [facility] [address] [id number] [address] [place] [address], [place] [address] 03 Jun, 2010 [facility] [address] [id number] [address] [place] [address], [place] [address] 29 May, 2010 [facility] [address] [id number] [address] [place] [address], [place] [address] 27 Apr, 2010 [facility] [address] [id number] [address] [place] [address], [place] [address] Oct, [facility] [address] [id number] [address] [place] [address], [place] [address] 13 Aug, 2009 [facility] [address] [id number] [address] [place] [address], [place] [address] Jul, [facility] [address] [id number] [address] [place] [address], [place] [address] 22 Jun, 2009 [facility] [address] [id number] [address] [place] [address], [place] [address] 16 Jun, 2009 [facility] [address] [id number] [address] [place] [address], [place] [address] 14 Jun, 2009 [facility] [address] [id number] [address] [place] [address], [place] [address] 14 Jun, 2009 [facility] [address] [id number] [address] [place] [address], [place] [address] 09 May, 2009 [facility] [address] [id number] [address] [place] [address], [place] [address] 20 Apr, 2009 [facility] [address] [id number] [address] [place] [address], [place] [address] 15 Mar, 2009 [facility] [address] [id number] [address] [place] [address], [place] [address] 14 Mar, 2009 [facility] [address] [id number] [address] [place] [address], [place] [address] Dec, IMMUNIZATIONS No Known Immunizations SOCIAL HISTORY Never Assessed REASON FOR VISIT EMR-[place] PLAN OF CARE VITAL SIGNS MEDICATIONS Unknown [...]
--- OUTSIDE RECORDS SUMMARY | 2019-09-01 05:20 | XMS REPORT ---
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 [place] [address], [place] [address] Aug, [facility] [address] [id number] [address] [place] [address], [place] [address] Aug, [facility] [address] [id number] [address] [place] [address], [place] [address] Jul, [facility] [address] [id number] [address] [place] [address], [place] [address] Jul, [facility] [address] [id number] [address] [place] [address], [place] [address] Jun, [facility] [address] [id number] [address] [place] [address], [place] [address] Jun, [facility] [address] [id number] [address] [place] [address], [place] [address] Jun, [facility] [address] [id number] [address] [place] [address], [place] [address] Jun, [facility] [address] [id number] [address] [place] [address], [place] [address] Jun, [facility] [address] [id number] [address] [place] [address], [place] [address] Jun, [facility] [address] [id number] [address] [place] [address], [place] [address] Jun, [facility] [address] [id number] [address] [place] [address], [place] [address] Jun, [facility] [address] [id number] [address] [place] [address], [place] [address] Jun, [facility] [address] [id number] [address] [place] [address], [place] [address] Jun, [facility] [address] [id number] [address] [place] [address], [place] [address] Jun, [facility] [address] [id number] [address] [place] [address], [place] [address] 05 Jun, 2014 [facility] [address] [id number] [address] [place] [address], [place] [address] 05 Jun, 2014 [facility] [address] [id number] [address] [place] [address], [place] [address] Jun, [facility] [address] [id number] [address] [place] [address], [place] [address] Jun, [facility] [address] [id number] [address] [place] [address], [place] [address] Jun, [facility] [address] [id number] [address] [place] [address], [place] [address] Jun, [facility] [address] [id number] [address] [place] [address], [place] [address] Jun, [facility] [address] [id number] [address] [place] [address], [place] [address] Jun, [facility] [address] [id number] [address] [place] [address], [place] [address] Jun, [facility] [address] [id number] [address] [place] [address], [place] [address] Jun, [facility] [address] [id number] [address] [place] [address], [place] [address] May, [facility] [address] [id number] [address] [place] [address], [place] [address] May, [facility] [address] [id number] [address] [place] [address], [place] [address] May, [facility] [address] [id number] [address] [place] [address], [place] [address] May, [facility] [address] [id number] [address] [place] [address], [place] [address] Apr, [facility] [address] [id number] [address] [place] [address], [place] [address] Apr, [facility] [address] [id number] [address] [place] [address], [place] [address] Apr, [facility] [address] [id number] [address] [place] [address], [place] [address] Apr, [facility] [address] [id number] [address] [place] [address], [place] [address] Apr, [facility] [address] [id number] [address] [place] [address], [place] [address] Apr, [facility] [address] [id number] [address] [place] [address], [place] [address] Apr, [facility] [address] [id number] [address] [place] [address], [place] [address] Apr, [facility] [address] [id number] [address] [place] [address], [place] [address] Apr, [facility] [address] [id number] [address] [place] [address], [place] [address] Apr, [facility] [address] [id number] [address] [place] [address], [place] [address] Mar, 2013 [facility] [address] [id number] [address] [place] [address], [place] [address] Mar, 2013 [facility] [address] [id number] [address] [place] [address], [place] [address] Mar, 2013 [facility] [address] [id number] [address] [place] [address], [place] [address] Mar, 2013 [facility] [address] [id number] [address] [place] [address], [place] [address] Mar, 2013 [facility] [address] [id number] [address] [place] [address], [place] [address] Mar, 2013 [facility] [address] [id number] [address] [place] [address], [place] [address] Mar, 2013 [facility] [address] [id number] [address] [place] [address], [place] [address] Mar, 2013 [facility] [address] [id number] [address] [place] [address], [place] [address] Mar, 2013 [facility] [address] [id number] [address] [place] [address], [place] [address] Mar, 2013 [facility] [address] [id number] [address] [place] [address], [place] [address] Mar, 2013 [facility] [address] [id number] [address] [place] [address], [place] [address] Mar, 2013 [facility] [address] [id number] [address] [place] [address], [place] [address] Feb, [facility] [address] [id number] [address] [place] [address], [place] [address] Feb, [facility] [address] [id number] [address] [place] [address], [place] [address] Jan, [facility] [address] [id number] [facility] [place] [address] Jan, [facility] [address] [id number] [address] [place] [address], [place] [address] Jan, [facility] [address] [id number] [address] [place] [address], [place] [address] Jan, [facility] [address] [id number] [address] [place] [address], [place] [address] Dec, [facility] [address] [id number] [address] [place] [address], [place] [address] Dec, [facility] [address] [id number] [address] [place] [address], [place] [address] Dec, [facility] [address] [id number] [address] [place] [address], [place] [address] Dec, [facility] [address] [id number] [address] [place] [address], [place] [address] Dec, [facility] [address] [id number] [address] [place] [address], [place] [address] Dec, [facility] [address] [id number] [address] [place] [address], [place] [address] November, [facility] [address] [id number] [address] [place] [address], [place] [address] November, [facility] [address] [id number] [address] [place] [address], [place] [address] November, [facility] [address] [id number] [address] [place] [address], [place] [address] November, [facility] [address] [id number] [address] [place] [address], [place] [address] November, [facility] [address] [id number] [address] [place] [address], [place] [address] November, [facility] [address] [place] [id number] November, [facility] [address] [id number] [address] [place] [address], [place] [address] November, [facility] [address] [id number] [address] [place] [address], [place] [address] November, [facility] [address] [id number] [address] [place] [address], [place] [address] November, [facility] [address] [id number] [address] [place] [address], [place] [address] November, [facility] [address] [id number] [address] [place] [address], [place] [address] November, [facility] [address] [id number] [address] [place] [address], [place] [address] Oct, [facility] [address] [id number] [address] [place] [address], [place] [address] Oct, [facility] [address] [id number] [address] [place] [address], [place] [address] Oct, [facility] [address] [id number] [address] [place] [address], [place] [address] Oct, [facility] [address] [id number] [address] [place] [address], [place] [address] Oct, [facility] [address] [id number] [address] [place] [address], [place] [address] Oct, [facility] [address] [id number] [address] [place] [address], [place] [address] Oct, [facility] [address] [id number] [address] [place] [address], [place] [address] Oct, [facility] [address] [id number] [address] [place] [address], [place] [address] Oct, [facility] [address] [id number] [address] [place] [address], [place] [address] Oct, [facility] [address] [id number] [facility] [place] [address] Oct, [facility] [address] [id number] [address] [place] [address], [place] [address] Oct, [facility] [address] [id number] [address] [place] [address], [place] [address] Oct, [facility] [address] [id number] [address] [place] [address], [place] [address] Oct, [facility] [address] [id number] [address] [place] [address], [place] [address] Oct, [facility] [address] [id number] [address] [place] [address], [place] [address] Sep, [facility] [address] [id number] [address] [place] [address], [place] [address] Sep, [facility] [address] [id number] [address] [place] [address], [place] [address] Sep, [facility] [address] [id number] [address] [place] [address], [place] [address] Sep, [facility] [address] [id number] [address] [place] [address], [place] [address] Aug, [facility] [address] [id number] [address] [place] [address], [place] [address] Aug, [facility] [address] [id number] [address] [place] [address], [place] [address] Aug, [facility] [address] [id number] [address] [place] [address], [place] [address] Aug, [facility] [address] [id number] [address] [place] [address], [place] [address] Jul, [facility] [address] [id number] [address] [place] [address], [place] [address] Jul, [facility] [address] [id number] [address] [place] [address], [place] [address] Jul, [facility] [address] [id number] [address] [place] [address], [place] [address] Jul, [facility] [address] [id number] [address] [place] [address], [place] [address] Jul, [facility] [address] [id number] [address] [place] [address], [place] [address] Jul, [facility] [address] [id number] [address] [place] [address], [place] [address] Jul, [facility] [address] [id number] [address] [place] [address], [place] [address] Jul, [facility] [address] [id number] [address] [place] [address], [place] [address] Jul, [facility] [address] [id number] [address] [place] [address], [place] [address] Jul, [facility] [address] [id number] [address] [place] [address], [place] [address] Jul, [facility] [address] [id number] [address] [place] [address], [place] [address] Jul, [facility] [address] [id number] [address] [place] [address], [place] [address] Jul, [facility] [address] [id number] [address] [place] [address], [place] [address] Jul, [facility] [address] [id number] [address] [place] [address], [place] [address] Jun, [facility] [address] [id number] [address] [place] [address], [place] [address] Jun, [facility] [address] [id number] [address] [place] [address], [place] [address] Jun, [facility] [address] [id number] [address] [place] [address], [place] [address] Jun, [facility] [address] [id number] [address] [place] [address], [place] [address] May, [facility] [address] [id number] [address] [place] [address], [place] [address] May, [facility] [address] [id number] [address] [place] [address], [place] [address] May, [facility] [address] [id number] [address] [place] [address], [place] [address] May, [facility] [address] [id number] [address] [place] [address], [place] [address] May, [facility] [address] [id number] [address] [place] [address], [place] [address] May, [facility] [address] [id number] [address] [place] [address], [place] [address] May, [facility] [address] [id number] [address] [place] [address], [place] [address] May, [facility] [address] [id number] [address] [place] [address], [place] [address] Apr, [facility] [address] [id number] [address] [place] [address], [place] [address] Apr, [facility] [address] [id number] [address] [place] [address], [place] [address] Apr, [facility] [address] [id number] [address] [place] [address], [place] [address] Apr, [facility] [address] [id number] [address] [place] [address], [place] [address] Apr, [facility] [address] [id number] [address] [place] [address], [place] [address] Apr, [facility] [address] [id number] [address] [place] [address], [place] [address] Mar, [facility] [address] [id number] [address] [place] [address], [place] [address] Mar, 2013 [facility] [address] [id number] [address] [place] [address], [place] [address] 20 Mar, 2013 [facility] [address] [id number] [address] [place] [address], [place] [address] 17 Mar, 2013 [facility] [address] [id number] [address] [place] [address], [place] [address] 16 Mar, 2013 [facility] [address] [id number] [address] [place] [address], [place] [address] 05 Mar, 2013 [facility] [address] [id number] [address] [place] [address], [place] [address] Feb, [facility] [address] [id number] [address] [place] [address], [place] [address] Feb, [facility] [address] [id number] [address] [place] [address], [place] [address] Feb, [facility] [address] [id number] [address] [place] [address], [place] [address] Feb, [facility] [address] [id number] [address] [place] [address], [place] [address] Jan, [facility] [address] [id number] [address] [place] [address], [place] [address] Jan, [facility] [address] [id number] [address] [place] [address], [place] [address] Jan, [facility] [address] [id number] [address] [place] [address], [place] [address] Jan, [facility] [address] [id number] [address] [place] [address], [place] [address] Jan, [facility] [address] [id number] [address] [place] [address], [place] [address] Dec, [facility] [address] [id number] [address] [place] [address], [place] [address] Dec, [facility] [address] [id number] [address] [place] [address], [place] [address] Dec, [facility] [address] [id number] [address] [place] [address], [place] [address] November, [facility] [address] [id number] [address] [place] [address], [place] [address] November, [facility] [address] [id number] [address] [place] [address], [place] [address] November, [facility] [address] [id number] [address] [place] [address], [place] [address] Oct, [facility] [address] [id number] [address] [place] [address], [place] [address] Oct, [facility] [address] [id number] [address] [place] [address], [place] [address] Oct, [facility] [address] [id number] [address] [place] [address], [place] [address] Oct, [facility] [address] [id number] [address] [place] [address], [place] [address] Oct, [facility] [address] [id number] [address] [place] [address], [place] [address] Oct, [facility] [address] [id number] [address] [place] [address], [place] [address] Oct, [facility] [address] [id number] [address] [place] [address], [place] [address] Sep, [facility] [address] [id number] [address] [place] [address], [place] [address] Sep, [facility] [address] [id number] [address] [place] [address], [place] [address] Sep, [facility] [address] [id number] [address] [place] [address], [place] [address] Sep, [facility] [address] [id number] [address] [place] [address], [place] [address] Aug, [facility] [address] [id number] [address] [place] [address], [place] [address] Aug, [facility] [address] [id number] [address] [place] [address], [place] [address] Aug, [facility] [address] [id number] [address] [place] [address], [place] [address] Aug, [facility] [address] [id number] [address] [place] [address], [place] [address] Aug, [facility] [address] [id number] [address] [place] [address], [place] [address] Aug, [facility] [address] [id number] [address] [place] [address], [place] [address] Jul, [facility] [address] [id number] [address] [place] [address], [place] [address] Jul, [facility] [address] [id number] [address] [place] [address], [place] [address] Jul, [facility] [address] [id number] [address] [place] [address], [place] [address] Jul, [facility] [address] [id number] [address] [place] [address], [place] [address] Jul, [facility] [address] [id number] [address] [place] [address], [place] [address] Jul, [facility] [address] [id number] [address] [place] [address], [place] [address] Jun, [facility] [address] [id number] [address] [place] [address], [place] [address] Jun, [facility] [address] [id number] [address] [place] [address], [place] [address] Jun, [facility] [address] [id number] [address] [place] [address], [place] [address] Jun, [facility] [address] [id number] [address] [place] [address], [place] [address] 05 Jun, 2012 [facility] [address] [id number] [address] [place] [address], [place] [address] Jun, [facility] [address] [id number] [address] [place] [address], [place] [address] May, [facility] [address] [id number] [address] [place] [address], [place] [address] May, [facility] [address] [id number] [address] [place] [address], [place] [address] May, [facility] [address] [id number] [address] [place] [address], [place] [address] May, [facility] [address] [id number] [address] [place] [address], [place] [address] May, [facility] [address] [id number] [address] [place] [address], [place] [address] May, [facility] [address] [id number] [address] [place] [address], [place] [address] May, [facility] [address] [id number] [address] [place] [address], [place] [address] May, [facility] [address] [id number] [address] [place] [address], [place] [address] May, [facility] [address] [id number] [address] [place] [address], [place] [address] May, [facility] [address] [id number] [address] [place] [address], [place] [address] Apr, [facility] [address] [id number] [address] [place] [address], [place] [address] Apr, [facility] [address] [id number] [address] [place] [address], [place] [address] Apr, [facility] [address] [id number] [address] [place] [address], [place] [address] Apr, [facility] [address] [id number] [address] [place] [address], [place] [address] 16 Apr, 2012 [facility] [address] [id number] [address] [place] [address], [place] [address] 16 Apr, 2012 [facility] [address] [id number] [address] [place] [address], [place] [address] 15 Apr, 2012 [facility] [address] [id number] [address] [place] [address], [place] [address] 15 Apr, 2012 [facility] [address] [id number] [address] [place] [address], [place] [address] 05 Apr, 2012 [facility] [address] [id number] [address] [place] [address], [place] [address] 28 Mar, 2012 [facility] [address] [id number] [address] [place] [address], [place] [address] 26 Mar, 2012 [facility] [address] [id number] [address] [place] [address], [place] [address] 25 Mar, 2012 [facility] [address] [id number] [address] [place] [address], [place] [address] 19 Mar, 2012 [facility] [address] [id number] [address] [place] [address], [place] [address] 18 Mar, 2012 [facility] [address] [id number] [address] [place] [address], [place] [address] 05 Mar, 2012 [facility] [address] [id number] [address] [place] [address], [place] [address] 28 Feb, 2012 [facility] [address] [id number] [address] [place] [address], [place] [address] Feb, [facility] [address] [id number] [address] [place] [address], [place] [address] Feb, [facility] [address] [id number] [address] [place] [address], [place] [address] Jan, [facility] [address] [id number] [address] [place] [address], [place] [address] Jan, [facility] [address] [id number] [address] [place] [address], [place] [address] Jan, [facility] [address] [id number] [address] [place] [address], [place] [address] Jan, [facility] [address] [id number] [address] [place] [address], [place] [address] Dec, [facility] [address] [id number] [address] [place] [address], [place] [address] November, [facility] [address] [id number] [address] [place] [address], [place] [address] November, [facility] [address] [id number] [address] [place] [address], [place] [address] November, [facility] [address] [id number] [address] [place] [address], [place] [address] November, [facility] [address] [id number] [address] [place] [address], [place] [address] November, [facility] [address] [id number] [address] [place] [address], [place] [address] November, [facility] [address] [id number] [address] [place] [address], [place] [address] Oct, [facility] [address] [id number] [address] [place] [address], [place] [address] Oct, [facility] [address] [id number] [address] [place] [address], [place] [address] Sep, [facility] [address] [id number] [address] [place] [address], [place] [address] Sep, [facility] [address] [id number] [address] [place] [address], [place] [address] Sep, [facility] [address] [id number] [address] [place] [address], [place] [address] Aug, [facility] [address] [id number] [address] [place] [address], [place] [address] 29 Aug, 2011 [facility] [address] [id number] [address] [place] [address], [place] [address] 14 Aug, 2011 [facility] [address] [id number] [address] [place] [address], [place] [address] 09 Aug, 2011 [facility] [address] [id number] [address] [place] [address], [place] [address] 02 Aug, 2011 [facility] [address] [id number] [address] [place] [address], [place] [address] Aug, [facility] [address] [id number] [address] [place] [address], [place] [address] Jul, [facility] [address] [id number] [address] [place] [address], [place] [address] Jul, [facility] [address] [id number] [address] [place] [address], [place] [address] Jul, [facility] [address] [id number] [address] [place] [address], [place] [address] Jul, [facility] [address] [id number] [address] [place] [address], [place] [address] Jul, [facility] [address] [id number] [address] [place] [address], [place] [address] Jul, [facility] [address] [id number] [address] [place] [address], [place] [address] 17 Jul, 2011 [facility] [address] [id number] [address] [place] [address], [place] [address] 12 Jul, 2011 [facility] [address] [id number] [address] [place] [address], [place] [address] 10 Jul, 2011 [facility] [address] [id number] [address] [place] [address], [place] [address] 03 Jul, 2011 [facility] [address] [id number] [address] [place] [address], [place] [address] Jun, [facility] [address] [id number] [address] [place] [address], [place] [address] Jun, [facility] [address] [id number] [address] [place] [address], [place] [address] Jun, [facility] [address] [id number] [address] [place] [address], [place] [address] Jun, [facility] [address] [id number] [address] [place] [address], [place] [address] May, [facility] [address] [id number] [address] [place] [address], [place] [address] May, [facility] [address] [id number] [address] [place] [address], [place] [address] May, [facility] [address] [id number] [address] [place] [address], [place] [address] May, [facility] [address] [id number] [address] [place] [address], [place] [address] Apr, [facility] [address] [id number] [address] [place] [address], [place] [address] Apr, [facility] [address] [id number] [address] [place] [address], [place] [address] November, [facility] [address] [id number] [address] [place] [address], [place] [address] Oct, [facility] [address] [id number] [address] [place] [address], [place] [address] Aug, [facility] [address] [id number] [address] [place] [address], [place] [address] Jun, [facility] [address] [id number] [address] [place] [address], [place] [address] Jun, [facility] [address] [id number] [address] [place] [address], [place] [address] Jun, [facility] [address] [id number] [address] [place] [id number] 03 Jun, 2010 [facility] [place] [address] [id number] [address] [place] [id number] 29 May, 2010 [facility] [place] [address] [id number] [address] [place] [id number] 27 Apr, 2010 [facility] [place] [address] [id number] [address] [place] [id number] 13 Oct, 2009 [facility] [place] [address] [id number] [address] [place] [id number] 13 Aug, 2009 [facility] [place] [address] [id number] [address] [place] [id number] 20 Jul, 2009 [facility] [place] [address] [id number] [address] [place] [id number] 22 Jun, 2009 [facility] [place] [address] [id number] [address] [place] [id number] 16 Jun, 2009 [facility] [place] [address] [id number] [address] [place] [id number] 14 Jun, 2009 [facility] [place] [address] [id number] [address] [place] [id number] 14 Jun, 2009 [facility] [place] [address] [id number] [address] [place] [id number] 09 May, 2009 [facility] [place] [address] [id number] [address] [place] [id number] 20 Apr, 2009 [facility] [place] [address] [id number] [address] [place] [id number] 15 Mar, 2009 [facility] [place] [address] [id number] [address] [place] [id number] 14 Mar, 2009 [facility] [place] [address] [id number] [address] [place] [id number] 11 Dec, 2008 IMMUNIZATIONS No Known Immunizations SOCIAL HISTORY Never Assessed REASON FOR VISIT EMR-[facility] PLAN OF CARE VITAL SIGNS MEDICATIONS Unknown [...]
--- OUTSIDE RECORDS SUMMARY | 2019-09-01 05:21 | XMS REPORT ---
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 [address] [id number] [address] [place] [address], [place] [address] Jun, [facility] [address] [id number] [address] [place] [address], [place] [address] May, [facility] [address] [id number] [address] [place] [address], [place] [address] May, [facility] [address] [id number] [address] [place] [address], [place] [address] May, [facility] [address] [id number] [address] [place] [address], [place] [address] May, [facility] [address] [id number] [address] [place] [address], [place] [address] Apr, [facility] [address] [id number] [address] [place] [address], [place] [address] Apr, [facility] [address] [id number] [address] [place] [address], [place] [address] Apr, [facility] [address] [id number] [address] [place] [address], [place] [address] Apr, [facility] [address] [id number] [address] [place] [address], [place] [address] Apr, [facility] [address] [id number] [address] [place] [address], [place] [address] Apr, [facility] [address] [id number] [address] [place] [address], [place] [address] Apr, [facility] [address] [id number] [address] [place] [address], [place] [address] Apr, [facility] [address] [id number] [address] [place] [address], [place] [address] Apr, [facility] [address] [id number] [address] [place] [address], [place] [address] Apr, [facility] [address] [id number] [address] [place] [address], [place] [address] Mar, 2013 [facility] [address] [id number] [address] [place] [address], [place] [address] Mar, 2013 [facility] [address] [id number] [address] [place] [address], [place] [address] Mar, 2013 [facility] [address] [id number] [address] [place] [address], [place] [address] Mar, 2013 [facility] [address] [id number] [address] [place] [address], [place] [address] Mar, 2013 [facility] [address] [id number] [address] [place] [address], [place] [address] Mar, 2013 [facility] [address] [id number] [address] [place] [address], [place] [address] Mar, 2013 [facility] [address] [id number] [address] [place] [address], [place] [address] Mar, 2013 [facility] [address] [id number] [address] [place] [address], [place] [address] Mar, 2013 [facility] [address] [id number] [address] [place] [address], [place] [address] Mar, 2013 [facility] [address] [id number] [address] [place] [address], [place] [address] Mar, 2013 [facility] [address] [id number] [address] [place] [address], [place] [address] Mar, [facility] [address] [id number] [address] [place] [address], [place] [address] Feb, [facility] [address] [id number] [address] [place] [address], [place] [address] Feb, [facility] [address] [id number] [address] [place] [address], [place] [address] Jan, [facility] [address] [id number] [facility] [place] [address] Jan, [facility] [address] [id number] [address] [place] [address], [place] [address] Jan, [facility] [address] [id number] [address] [place] [address], [place] [address] Jan, [facility] [address] [id number] [address] [place] [address], [place] [address] Dec, [facility] [address] [id number] [address] [place] [address], [place] [address] Dec, [facility] [address] [id number] [address] [place] [address], [place] [address] Dec, [facility] [address] [id number] [address] [place] [address], [place] [address] Dec, [facility] [address] [id number] [address] [place] [address], [place] [address] Dec, [facility] [address] [id number] [address] [place] [address], [place] [address] Dec, [facility] [address] [id number] [address] [place] [address], [place] [address] November, [facility] [address] [id number] [address] [place] [address], [place] [address] November, [facility] [address] [id number] [address] [place] [address], [place] [address] November, [facility] [address] [id number] [address] [place] [address], [place] [address] November, [facility] [address] [id number] [address] [place] [address], [place] [address] November, [facility] [address] [id number] [address] [place] [address], [place] [address] November, [facility] [address] [place] [id number] November, [facility] [address] [id number] [address] [place] [address], [place] [address] November, [facility] [address] [id number] [address] [place] [address], [place] [address] November, [facility] [address] [id number] [address] [place] [address], [place] [address] November, [facility] [address] [id number] [address] [place] [address], [place] [address] November, [facility] [address] [id number] [address] [place] [address], [place] [address] November, [facility] [address] [id number] [address] [place] [address], [place] [address] Oct, [facility] [address] [id number] [address] [place] [address], [place] [address] Oct, [facility] [address] [id number] [address] [place] [address], [place] [address] Oct, [facility] [address] [id number] [address] [place] [address], [place] [address] Oct, [facility] [address] [id number] [address] [place] [address], [place] [address] Oct, [facility] [address] [id number] [address] [place] [address], [place] [address] Oct, [facility] [address] [id number] [address] [place] [address], [place] [address] Oct, [facility] [address] [id number] [address] [place] [address], [place] [address] Oct, [facility] [address] [id number] [address] [place] [address], [place] [address] Oct, [facility] [address] [id number] [address] [place] [address], [place] [address] Oct, [facility] [address] [id number] [facility] [place] [address] Oct, [facility] [address] [id number] [facility] [place] [address] Oct, [facility] [address] [id number] [facility] [place] [address] Oct, [facility] [address] [id number] [address] [place] [address], [place] [address] Oct, [facility] [address] [id number] [address] [place] [address], [place] [address] Oct, [facility] [address] [id number] [address] [place] [address], [place] [address] Sep, [facility] [address] [id number] [address] [place] [address], [place] [address] Sep, [facility] [address] [id number] [address] [place] [address], [place] [address] Sep, [facility] [address] [id number] [address] [place] [address], [place] [address] Sep, [facility] [address] [id number] [address] [place] [address], [place] [address] Aug, [facility] [address] [id number] [address] [place] [address], [place] [address] Aug, [facility] [address] [id number] [address] [place] [address], [place] [address] Aug, [facility] [address] [id number] [address] [place] [address], [place] [address] Aug, [facility] [address] [id number] [address] [place] [address], [place] [address] Jul, [facility] [address] [id number] [address] [place] [address], [place] [address] Jul, [facility] [address] [id number] [address] [place] [address], [place] [address] Jul, [facility] [address] [id number] [address] [place] [address], [place] [address] Jul, [facility] [address] [id number] [address] [place] [address], [place] [address] Jul, [facility] [address] [id number] [address] [place] [address], [place] [address] Jul, [facility] [address] [id number] [address] [place] [address], [place] [address] Jul, [facility] [address] [id number] [address] [place] [address], [place] [address] Jul, [facility] [address] [id number] [address] [place] [address], [place] [address] Jul, [facility] [address] [id number] [address] [place] [address], [place] [address] Jul, [facility] [address] [id number] [address] [place] [address], [place] [address] Jul, [facility] [address] [id number] [address] [place] [address], [place] [address] Jul, [facility] [address] [id number] [address] [place] [address], [place] [address] Jul, [facility] [address] [id number] [address] [place] [address], [place] [address] Jul, [facility] [address] [id number] [address] [place] [address], [place] [address] Jun, [facility] [address] [id number] [address] [place] [address], [place] [address] Jun, [facility] [address] [id number] [address] [place] [address], [place] [address] Jun, [facility] [address] [id number] [address] [place] [address], [place] [address] Jun, [facility] [address] [id number] [address] [place] [address], [place] [address] May, [facility] [address] [id number] [address] [place] [address], [place] [address] May, [facility] [address] [id number] [address] [place] [address], [place] [address] May, [facility] [address] [id number] [address] [place] [address], [place] [address] May, [facility] [address] [id number] [address] [place] [address], [place] [address] May, [facility] [address] [id number] [address] [place] [address], [place] [address] May, [facility] [address] [id number] [address] [place] [address], [place] [address] May, [facility] [address] [id number] [address] [place] [address], [place] [address] May, [facility] [address] [id number] [address] [place] [address], [place] [address] Apr, [facility] [address] [id number] [address] [place] [address], [place] [address] Apr, [facility] [address] [id number] [address] [place] [address], [place] [address] Apr, [facility] [address] [id number] [address] [place] [address], [place] [address] Apr, [facility] [address] [id number] [address] [place] [address], [place] [address] Apr, [facility] [address] [id number] [address] [place] [address], [place] [address] Apr, [facility] [address] [id number] [address] [place] [address], [place] [address] 30 Mar, 2013 [facility] [address] [id number] [address] [place] [address], [place] [address] 26 Mar, 2013 [facility] [address] [id number] [facility] [place] [address] 20 Mar, 2013 [facility] [address] [id number] [address] [place] [address], [place] [address] 17 Mar, 2013 [facility] [address] [id number] [address] [place] [address], [place] [address] 16 Mar, 2013 [facility] [address] [id number] [address] [place] [address], [place] [address] 05 Mar, 2013 [facility] [address] [id number] [address] [place] [address], [place] [address] Feb, [facility] [address] [id number] [address] [place] [address], [place] [address] Feb, [facility] [address] [id number] [address] [place] [address], [place] [address] Feb, [facility] [address] [id number] [address] [place] [address], [place] [address] Feb, [facility] [address] [id number] [address] [place] [address], [place] [address] Jan, [facility] [address] [id number] [address] [place] [address], [place] [address] Jan, [facility] [address] [id number] [address] [place] [address], [place] [address] Jan, [facility] [address] [id number] [address] [place] [address], [place] [address] Jan, [facility] [address] [id number] [address] [place] [address], [place] [address] Jan, [facility] [address] [id number] [address] [place] [address], [place] [address] Dec, [facility] [address] [id number] [address] [place] [address], [place] [address] Dec, [facility] [address] [id number] [address] [place] [address], [place] [address] Dec, [facility] [address] [id number] [address] [place] [address], [place] [address] November, [facility] [address] [id number] [address] [place] [address], [place] [address] November, [facility] [address] [id number] [address] [place] [address], [place] [address] November, [facility] [address] [id number] [address] [place] [address], [place] [id number] Oct, [facility] [address] [id number] [address] [place] [address], [place] [address] Oct, [facility] [address] [id number] [address] [place] [address], [place] [address] Oct, [facility] [address] [id number] [address] [place] [address], [place] [address] Oct, [facility] [address] [id number] [address] [place] [address], [place] [address] Oct, [facility] [address] [id number] [address] [place] [address], [place] [address] Oct, [facility] [address] [id number] [address] [place] [address], [place] [address] Oct, [facility] [address] [id number] [address] [place] [address], [place] [address] Sep, [facility] [address] [id number] [address] [place] [address], [place] [address] Sep, [facility] [address] [id number] [address] [place] [address], [place] [address] Sep, [facility] [address] [id number] [address] [place] [address], [place] [address] Sep, [facility] [address] [id number] [address] [place] [address], [place] [address] Aug, [facility] [address] [id number] [address] [place] [address], [place] [address] Aug, [facility] [address] [id number] [address] [place] [address], [place] [address] Aug, [facility] [address] [id number] [address] [place] [address], [place] [address] Aug, [facility] [address] [id number] [address] [place] [address], [place] [address] Aug, [facility] [address] [id number] [address] [place] [address], [place] [address] Aug, [facility] [address] [id number] [address] [place] [address], [place] [address] Jul, [facility] [address] [id number] [address] [place] [address], [place] [address] Jul, [facility] [address] [id number] [address] [place] [address], [place] [address] Jul, [facility] [address] [id number] [address] [place] [address], [place] [address] Jul, [facility] [address] [id number] [address] [place] [address], [place] [address] Jul, [facility] [address] [id number] [address] [place] [address], [place] [address] Jul, [facility] [address] [id number] [address] [place] [address], [place] [address] Jun, [facility] [address] [id number] [address] [place] [address], [place] [address] Jun, [facility] [address] [id number] [address] [place] [address], [place] [address] Jun, [facility] [address] [id number] [address] [place] [address], [place] [address] Jun, [facility] [address] [id number] [address] [place] [address], [place] [address] Jun, [facility] [address] [id number] [address] [place] [address], [place] [address] Jun, [facility] [address] [id number] [address] [place] [address], [place] [address] May, [facility] [address] [id number] [address] [place] [address], [place] [address] May, [facility] [address] [id number] [address] [place] [address], [place] [address] May, [facility] [address] [id number] [address] [place] [address], [place] [address] May, [facility] [address] [id number] [address] [place] [address], [place] [address] May, [facility] [address] [id number] [address] [place] [address], [place] [address] May, [facility] [address] [id number] [address] [place] [address], [place] [address] May, [facility] [address] [id number] [address] [place] [address], [place] [address] May, [facility] [address] [id number] [address] [place] [address], [place] [address] May, [facility] [address] [id number] [address] [place] [address], [place] [address] May, [facility] [address] [id number] [address] [place] [address], [place] [address] Apr, [facility] [address] [id number] [address] [place] [address], [place] [address] Apr, [facility] [address] [id number] [address] [place] [address], [place] [address] Apr, [facility] [address] [id number] [address] [place] [address], [place] [address] Apr, [facility] [address] [id number] [address] [place] [address], [place] [address] 16 Apr, 2012 [facility] [address] [id number] [address] [place] [address], [place] [address] 16 Apr, 2012 [facility] [address] [id number] [address] [place] [address], [place] [address] 15 Apr, 2012 [facility] [address] [id number] [address] [place] [address], [place] [address] 15 Apr, 2012 [facility] [address] [id number] [address] [place] [address], [place] [address] 05 Apr, 2012 [facility] [address] [id number] [address] [place] [address], [place] [address] 28 Mar, 2012 [facility] [address] [id number] [address] [place] [address], [place] [address] 26 Mar, 2012 [facility] [address] [id number] [address] [place] [address], [place] [address] 25 Mar, 2012 [facility] [address] [id number] [address] [place] [address], [place] [address] 19 Mar, 2012 [facility] [address] [id number] [address] [place] [address], [place] [address] 18 Mar, 2012 [facility] [address] [id number] [address] [place] [address], [place] [address] 05 Mar, 2012 [facility] [address] [id number] [address] [place] [address], [place] [address] 28 Feb, 2012 [facility] [address] [id number] [address] [place] [address], [place] [address] Feb, [facility] [address] [id number] [address] [place] [address], [place] [address] Feb, [facility] [address] [id number] [address] [place] [address], [place] [address] Jan, [facility] [address] [id number] [address] [place] [address], [place] [address] Jan, [facility] [address] [id number] [address] [place] [address], [place] [address] Jan, [facility] [address] [id number] [address] [place] [address], [place] [address] Jan, [facility] [address] [id number] [address] [place] [address], [place] [address] Dec, [facility] [address] [id number] [address] [place] [address], [place] [address] November, [facility] [address] [id number] [address] [place] [address], [place] [address] November, [facility] [address] [id number] [address] [place] [address], [place] [address] November, [facility] [address] [id number] [address] [place] [address], [place] [address] November, [facility] [address] [id number] [address] [place] [address], [place] [address] November, [facility] [address] [id number] [address] [place] [address], [place] [address] November, [facility] [address] [id number] [address] [place] [address], [place] [address] Oct, [facility] [address] [id number] [address] [place] [address], [place] [address] Oct, [facility] [address] [id number] [address] [place] [address], [place] [address] Sep, [facility] [address] [id number] [address] [place] [address], [place] [address] Sep, [facility] [address] [id number] [address] [place] [address], [place] [address] Sep, [facility] [address] [id number] [address] [place] [address], [place] [address] Aug, [facility] [address] [id number] [address] [place] [address], [place] [address] 29 Aug, 2011 [facility] [address] [id number] [address] [place] [address], [place] [address] 14 Aug, 2011 [facility] [address] [id number] [address] [place] [address], [place] [address] 09 Aug, 2011 [facility] [address] [id number] [address] [place] [address], [place] [address] Aug, [facility] [address] [id number] [address] [place] [address], [place] [address] Aug, [facility] [address] [id number] [address] [place] [address], [place] [address] Jul, [facility] [address] [id number] [address] [place] [address], [place] [address] Jul, [facility] [address] [id number] [address] [place] [address], [place] [address] Jul, [facility] [address] [id number] [address] [place] [address], [place] [address] Jul, [facility] [address] [id number] [address] [place] [address], [place] [address] Jul, [facility] [address] [id number] [address] [place] [address], [place] [address] Jul, [facility] [address] [id number] [address] [place] [address], [place] [address] Jul, [facility] [address] [id number] [address] [place] [address], [place] [address] Jul, [facility] [address] [id number] [address] [place] [address], [place] [address] Jul, [facility] [address] [id number] [address] [place] [address], [place] [address] Jul, [facility] [address] [id number] [address] [place] [address], [place] [address] Jun, [facility] [address] [id number] [address] [place] [address], [place] [address] Jun, [facility] [address] [id number] [address] [place] [address], [place] [address] Jun, [facility] [address] [id number] [address] [place] [address], [place] [address] Jun, [facility] [address] [id number] [address] [place] [address], [place] [address] 30 May, 2011 [facility] [address] [id number] [address] [place] [address], [place] [address] May, [facility] [address] [id number] [address] [place] [address], [place] [address] May, [facility] [address] [id number] [address] [place] [address], [place] [address] May, [facility] [address] [id number] [address] [place] [address], [place] [address] Apr, [facility] [address] [id number] [address] [place] [address], [place] [address] Apr, [facility] [address] [id number] [address] [place] [address], [place] [address] November, [facility] [address] [id number] [address] [place] [address], [place] [address] Oct, [facility] [address] [id number] [address] [place] [address], [place] [address] Aug, [facility] [address] [id number] [address] [place] [address], [place] [address] Jun, [facility] [address] [id number] [address] [place] [address], [place] [address] Jun, [facility] [address] [id number] [address] [place] [address], [place] [address] Jun, [facility] [address] [id number] [address] [place] [id number] 03 Jun, 2010 [facility] [address] [id number] [address] [place] [id number] 29 May, 2010 [facility] [address] [id number] [address] [place] [id number] 27 Apr, 2010 [facility] [address] [id number] [address] [place] [id number] 13 Oct, 2009 [facility] [address] [id number] [address] [place] [id number] 13 Aug, 2009 [facility] [address] [id number] [address] [place] [id number] Jul, [facility] [address] [id number] [address] [place] [id number] 22 Jun, 2009 [facility] [address] [id number] [address] [place] [id number] 16 Jun, 2009 [facility] [address] [id number] [address] [place] [id number] 14 Jun, 2009 [facility] [address] [id number] [address] [place] [id number] 14 Jun, 2009 [facility] [address] [id number] [address] [place] [id number] 09 May, 2009 [facility] [address] [id number] [address] [place] [id number] 20 Apr, 2009 [facility] [address] [id number] [address] [place] [id number] 15 Mar, 2009 [facility] [address] [id number] [address] [place] [phone] 14 Mar, 2009 [facility] [address] [id number] [address] [place] [id number] 11 Dec, 2008 IMMUNIZATIONS No Known Immunizations SOCIAL HISTORY Never Assessed REASON FOR VISIT Medication question PLAN OF CARE VITAL SIGNS MEDICATIONS Unknown [...]
--- OUTSIDE RECORDS SUMMARY | 2019-09-01 05:21 | XMS REPORT ---
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 [address] [id number] [address] [place] [address], [place] [address] Jun, [facility] [address] [id number] [address] [place] [address], [place] [address] Jun, [facility] [address] [id number] [address] [place] [address], [place] [address] Jun, [facility] [address] [id number] [address] [place] [address], [place] [address] Jun, [facility] [address] [id number] [address] [place] [address], [place] [address] Jun, [facility] [address] [id number] [address] [place] [address], [place] [address] Jun, [facility] [address] [id number] [address] [place] [address], [place] [address] Jun, [facility] [address] [id number] [address] [place] [address], [place] [address] May, [facility] [address] [id number] [address] [place] [address], [place] [address] May, [facility] [address] [id number] [address] [place] [address], [place] [address] May, [facility] [address] [id number] [address] [place] [address], [place] [address] May, [facility] [address] [id number] [address] [place] [address], [place] [address] Apr, [facility] [address] [id number] [address] [place] [address], [place] [address] Apr, [facility] [address] [id number] [address] [place] [address], [place] [address] Apr, [facility] [address] [id number] [address] [place] [address], [place] [address] Apr, [facility] [address] [id number] [address] [place] [address], [place] [address] Apr, [facility] [address] [id number] [address] [place] [address], [place] [address] Apr, [facility] [address] [id number] [address] [place] [address], [place] [address] Apr, [facility] [address] [id number] [address] [place] [address], [place] [address] Apr, [facility] [address] [id number] [address] [place] [address], [place] [address] Apr, [facility] [address] [id number] [address] [place] [address], [place] [address] Apr, [facility] [address] [id number] [address] [place] [address], [place] [address] Mar, 2013 [facility] [address] [id number] [address] [place] [address], [place] [address] Mar, 2013 [facility] [address] [id number] [address] [place] [address], [place] [address] Mar, 2013 [facility] [address] [id number] [address] [place] [address], [place] [address] Mar, 2013 [facility] [address] [id number] [address] [place] [address], [place] [address] Mar, 2013 [facility] [address] [id number] [address] [place] [address], [place] [address] Mar, 2013 [facility] [address] [id number] [address] [place] [address], [place] [address] Mar, 2013 [facility] [address] [id number] [address] [place] [address], [place] [address] Mar, 2013 [facility] [address] [id number] [address] [place] [address], [place] [address] Mar, 2013 [facility] [address] [id number] [address] [place] [address], [place] [address] Mar, 2013 [facility] [address] [id number] [address] [place] [address], [place] [address] Mar, 2013 [facility] [address] [id number] [address] [place] [address], [place] [address] Mar, 2013 [facility] [address] [id number] [address] [place] [address], [place] [address] Feb, [facility] [address] [id number] [address] [place] [address], [place] [address] Feb, [facility] [address] [id number] [address] [place] [address], [place] [address] Jan, [facility] [address] [id number] [facility] [place] [address] Jan, [facility] [address] [id number] [address] [place] [address], [place] [address] Jan, [facility] [address] [id number] [address] [place] [address], [place] [address] Jan, [facility] [address] [id number] [address] [place] [address], [place] [address] Dec, [facility] [address] [id number] [address] [place] [address], [place] [address] Dec, [facility] [address] [id number] [address] [place] [address], [place] [address] Dec, [facility] [address] [id number] [address] [place] [address], [place] [address] Dec, [facility] [address] [id number] [address] [place] [address], [place] [address] Dec, [facility] [address] [id number] [address] [place] [address], [place] [address] Dec, [facility] [address] [id number] [address] [place] [address], [place] [address] November, [facility] [address] [id number] [address] [place] [address], [place] [address] November, [facility] [address] [id number] [address] [place] [address], [place] [address] November, [facility] [address] [id number] [address] [place] [address], [place] [address] November, [facility] [address] [id number] [address] [place] [address], [place] [address] November, [facility] [address] [id number] [address] [place] [address], [place] [address] November, [facility] [address] [place] [id number] November, [facility] [address] [id number] [address] [place] [address], [place] [address] November, [facility] [address] [id number] [address] [place] [address], [place] [address] November, [facility] [address] [id number] [address] [place] [address], [place] [address] November, [facility] [address] [id number] [address] [place] [address], [place] [address] November, [facility] [address] [id number] [address] [place] [address], [place] [address] November, [facility] [address] [id number] [address] [place] [address], [place] [address] Oct, [facility] [address] [id number] [address] [place] [address], [place] [address] Oct, [facility] [address] [id number] [address] [place] [address], [place] [address] Oct, [facility] [address] [id number] [address] [place] [address], [place] [address] Oct, [facility] [address] [id number] [address] [place] [address], [place] [address] Oct, [facility] [address] [id number] [address] [place] [address], [place] [address] Oct, [facility] [address] [id number] [address] [place] [address], [place] [address] Oct, [facility] [address] [id number] [address] [place] [address], [place] [address] Oct, [facility] [address] [id number] [address] [place] [address], [place] [address] Oct, [facility] [address] [id number] [address] [place] [address], [place] [address] Oct, [facility] [address] [id number] [facility] [place] [address] Oct, [facility] [address] [id number] [address] [place] [address], [place] [address] Oct, [facility] [address] [id number] [address] [place] [address], [place] [address] Oct, [facility] [address] [id number] [address] [place] [address], [place] [address] Oct, [facility] [address] [id number] [address] [place] [address], [place] [address] Oct, [facility] [address] [id number] [address] [place] [address], [place] [address] Sep, [facility] [address] [id number] [address] [place] [address], [place] [address] Sep, [facility] [address] [id number] [address] [place] [address], [place] [address] Sep, [facility] [address] [id number] [address] [place] [address], [place] [address] Sep, [facility] [address] [id number] [address] [place] [address], [place] [address] Aug, [facility] [address] [id number] [address] [place] [address], [place] [address] Aug, [facility] [address] [id number] [address] [place] [address], [place] [address] Aug, [facility] [address] [id number] [address] [place] [address], [place] [address] Aug, [facility] [address] [id number] [address] [place] [address], [place] [address] Jul, [facility] [address] [id number] [address] [place] [address], [place] [address] Jul, [facility] [address] [id number] [address] [place] [address], [place] [address] Jul, [facility] [address] [id number] [address] [place] [address], [place] [address] Jul, [facility] [address] [id number] [address] [place] [address], [place] [address] Jul, [facility] [address] [id number] [address] [place] [address], [place] [address] Jul, [facility] [address] [id number] [address] [place] [address], [place] [address] Jul, [facility] [address] [id number] [address] [place] [address], [place] [address] Jul, [facility] [address] [id number] [address] [place] [address], [place] [address] Jul, [facility] [address] [id number] [address] [place] [address], [place] [address] Jul, [facility] [address] [id number] [address] [place] [address], [place] [address] Jul, [facility] [address] [id number] [address] [place] [address], [place] [address] Jul, [facility] [address] [id number] [address] [place] [address], [place] [address] Jul, [facility] [address] [id number] [address] [place] [address], [place] [address] Jul, [facility] [address] [id number] [address] [place] [address], [place] [address] Jun, [facility] [address] [id number] [address] [place] [address], [place] [address] Jun, [facility] [address] [id number] [address] [place] [address], [place] [address] Jun, [facility] [address] [id number] [address] [place] [address], [place] [address] Jun, [facility] [address] [id number] [address] [place] [address], [place] [address] May, [facility] [address] [id number] [address] [place] [address], [place] [address] May, [facility] [address] [id number] [address] [place] [address], [place] [address] May, [facility] [address] [id number] [address] [place] [address], [place] [address] May, [facility] [address] [id number] [address] [place] [address], [place] [address] May, [facility] [address] [id number] [address] [place] [address], [place] [address] May, [facility] [address] [id number] [address] [place] [address], [place] [address] May, [facility] [address] [id number] [address] [place] [address], [place] [address] May, [facility] [address] [id number] [address] [place] [address], [place] [address] Apr, [facility] [address] [id number] [address] [place] [address], [place] [address] Apr, [facility] [address] [id number] [address] [place] [address], [place] [address] Apr, [facility] [address] [id number] [address] [place] [address], [place] [address] Apr, [facility] [address] [id number] [address] [place] [address], [place] [address] Apr, [facility] [address] [id number] [address] [place] [address], [place] [address] Apr, [facility] [address] [id number] [address] [place] [address], [place] [address] Mar, [facility] [address] [id number] [address] [place] [address], [place] [address] Mar, 2013 [facility] [address] [id number] [address] [place] [address], [place] [address] 20 Mar, 2013 [facility] [address] [id number] [address] [place] [address], [place] [address] 17 Mar, 2013 [facility] [address] [id number] [address] [place] [address], [place] [address] 16 Mar, 2013 [facility] [address] [id number] [address] [place] [address], [place] [address] 05 Mar, 2013 [facility] [address] [id number] [address] [place] [address], [place] [address] Feb, [facility] [address] [id number] [address] [place] [address], [place] [address] Feb, [facility] [address] [id number] [address] [place] [address], [place] [address] Feb, [facility] [address] [id number] [address] [place] [address], [place] [address] Feb, [facility] [address] [id number] [address] [place] [address], [place] [address] Jan, [facility] [address] [id number] [address] [place] [address], [place] [address] Jan, [facility] [address] [id number] [address] [place] [address], [place] [address] Jan, [facility] [address] [id number] [address] [place] [address], [place] [address] Jan, [facility] [address] [id number] [address] [place] [address], [place] [address] Jan, [facility] [address] [id number] [address] [place] [address], [place] [id number] Dec, [facility] [address] [id number] [address] [place] [address], [place] [address] Dec, [facility] [address] [id number] [address] [place] [address], [place] [address] Dec, [facility] [address] [id number] [address] [place] [address], [place] [address] November, [facility] [address] [id number] [address] [place] [address], [place] [address] November, [facility] [address] [id number] [address] [place] [address], [place] [address] November, [facility] [address] [id number] [address] [place] [address], [place] [address] Oct, [facility] [address] [id number] [address] [place] [address], [place] [address] Oct, [facility] [address] [id number] [address] [place] [address], [place] [address] Oct, [facility] [address] [id number] [address] [place] [address], [place] [address] Oct, [facility] [address] [id number] [address] [place] [address], [place] [address] Oct, [facility] [address] [id number] [address] [place] [address], [place] [address] Oct, [facility] [address] [id number] [address] [place] [address], [place] [address] Oct, [facility] [address] [id number] [address] [place] [address], [place] [address] Sep, [facility] [address] [id number] [address] [place] [address], [place] [address] Sep, [facility] [address] [id number] [address] [place] [address], [place] [address] Sep, [facility] [address] [id number] [address] [place] [address], [place] [address] Sep, [facility] [address] [id number] [address] [place] [address], [place] [address] Aug, [facility] [address] [id number] [address] [place] [address], [place] [address] Aug, [facility] [address] [id number] [address] [place] [address], [place] [address] Aug, [facility] [address] [id number] [address] [place] [address], [place] [address] Aug, [facility] [address] [id number] [address] [place] [address], [place] [address] Aug, [facility] [address] [id number] [address] [place] [address], [place] [address] Aug, [facility] [address] [id number] [address] [place] [address], [place] [address] Jul, [facility] [address] [id number] [address] [place] [address], [place] [address] Jul, [facility] [address] [id number] [address] [place] [address], [place] [address] Jul, [facility] [address] [id number] [address] [place] [address], [place] [address] Jul, [facility] [address] [id number] [address] [place] [address], [place] [address] Jul, [facility] [address] [id number] [address] [place] [address], [place] [address] Jul, [facility] [address] [id number] [address] [place] [address], [place] [address] Jun, [facility] [address] [id number] [address] [place] [address], [place] [address] Jun, [facility] [address] [id number] [address] [place] [address], [place] [address] Jun, [facility] [address] [id number] [address] [place] [address], [place] [address] Jun, [facility] [address] [id number] [address] [place] [address], [place] [address] 05 Jun, 2012 [facility] [address] [id number] [address] [place] [address], [place] [address] Jun, [facility] [address] [id number] [address] [place] [address], [place] [address] May, [facility] [address] [id number] [address] [place] [address], [place] [address] May, [facility] [address] [id number] [address] [place] [address], [place] [address] May, [facility] [address] [id number] [address] [place] [address], [place] [address] May, [facility] [address] [id number] [address] [place] [address], [place] [address] May, [facility] [address] [id number] [address] [place] [address], [place] [address] May, [facility] [address] [id number] [address] [place] [address], [place] [address] May, [facility] [address] [id number] [address] [place] [address], [place] [address] May, [facility] [address] [id number] [address] [place] [address], [place] [address] May, [facility] [address] [id number] [address] [place] [address], [place] [address] May, [facility] [address] [id number] [address] [place] [address], [place] [address] Apr, [facility] [address] [id number] [address] [place] [address], [place] [address] Apr, [facility] [address] [id number] [address] [place] [address], [place] [address] Apr, [facility] [address] [id number] [address] [place] [address], [place] [address] Apr, [facility] [address] [id number] [address] [place] [address], [place] [address] 16 Apr, 2012 [facility] [address] [id number] [address] [place] [address], [place] [address] 16 Apr, 2012 [facility] [address] [id number] [address] [place] [address], [place] [address] 15 Apr, 2012 [facility] [address] [id number] [address] [place] [address], [place] [address] 15 Apr, 2012 [facility] [address] [id number] [address] [place] [address], [place] [address] 05 Apr, 2012 [facility] [address] [id number] [address] [place] [address], [place] [address] 28 Mar, 2012 [facility] [address] [id number] [address] [place] [address], [place] [address] 26 Mar, 2012 [facility] [address] [id number] [address] [place] [address], [place] [address] 25 Mar, 2012 [facility] [address] [id number] [address] [place] [address], [place] [address] 19 Mar, 2012 [facility] [address] [id number] [address] [place] [address], [place] [address] 18 Mar, 2012 [facility] [address] [id number] [address] [place] [address], [place] [address] 05 Mar, 2012 [facility] [address] [id number] [address] [place] [address], [place] [address] 28 Feb, 2012 [facility] [address] [id number] [address] [place] [address], [place] [address] Feb, [facility] [address] [id number] [address] [place] [address], [place] [address] Feb, [facility] [address] [id number] [address] [place] [address], [place] [address] Jan, [facility] [address] [id number] [address] [place] [address], [place] [address] Jan, [facility] [address] [id number] [address] [place] [address], [place] [address] Jan, [facility] [address] [id number] [address] [place] [address], [place] [address] Jan, [facility] [address] [id number] [address] [place] [address], [place] [address] Dec, [facility] [address] [id number] [address] [place] [address], [place] [address] November, [facility] [address] [id number] [address] [place] [address], [place] [address] November, [facility] [address] [id number] [address] [place] [address], [place] [address] November, [facility] [address] [id number] [address] [place] [address], [place] [address] November, [facility] [address] [id number] [address] [place] [address], [place] [address] November, [facility] [address] [id number] [address] [place] [address], [place] [address] November, [facility] [address] [id number] [address] [place] [address], [place] [address] Oct, [facility] [address] [id number] [address] [place] [address], [place] [address] Oct, [facility] [address] [id number] [address] [place] [address], [place] [address] Sep, [facility] [address] [id number] [address] [place] [address], [place] [address] Sep, [facility] [address] [id number] [address] [place] [address], [place] [address] Sep, [facility] [address] [id number] [address] [place] [address], [place] [address] Aug, [facility] [address] [id number] [address] [place] [address], [place] [address] 29 Aug, 2011 [facility] [address] [id number] [address] [place] [address], [place] [address] 14 Aug, 2011 [facility] [address] [id number] [address] [place] [address], [place] [address] 09 Aug, 2011 [facility] [address] [id number] [address] [place] [address], [place] [address] 02 Aug, 2011 [facility] [address] [id number] [address] [place] [address], [place] [address] Aug, [facility] [address] [id number] [address] [place] [address], [place] [address] Jul, [facility] [address] [id number] [address] [place] [address], [place] [address] Jul, [facility] [address] [id number] [address] [place] [address], [place] [address] Jul, [facility] [address] [id number] [address] [place] [address], [place] [address] Jul, [facility] [address] [id number] [address] [place] [address], [place] [address] Jul, [facility] [address] [id number] [address] [place] [address], [place] [address] Jul, [facility] [address] [id number] [address] [place] [address], [place] [address] 17 Jul, 2011 [facility] [address] [id number] [address] [place] [address], [place] [address] 12 Jul, 2011 [facility] [address] [id number] [address] [place] [address], [place] [address] 10 Jul, 2011 [facility] [address] [id number] [address] [place] [address], [place] [address] 03 Jul, 2011 [facility] [address] [id number] [address] [place] [address], [place] [address] Jun, [facility] [address] [id number] [address] [place] [address], [place] [address] Jun, [facility] [address] [id number] [address] [place] [address], [place] [address] Jun, [facility] [address] [id number] [address] [place] [address], [place] [address] Jun, [facility] [address] [id number] [address] [place] [address], [place] [address] May, [facility] [address] [id number] [address] [place] [address], [place] [address] May, [facility] [address] [id number] [address] [place] [address], [place] [address] May, [facility] [address] [id number] [address] [place] [address], [place] [address] May, [facility] [address] [id number] [address] [place] [address], [place] [address] Apr, [facility] [address] [id number] [address] [place] [address], [place] [address] Apr, [facility] [address] [id number] [address] [place] [address], [place] [address] November, [facility] [address] [id number] [address] [place] [address], [place] [address] Oct, [facility] [address] [id number] [address] [place] [address], [place] [address] Aug, [facility] [address] [id number] [address] [place] [address], [place] [address] Jun, [facility] [address] [id number] [address] [place] [address], [place] [address] Jun, [facility] [address] [id number] [address] [place] [address], [place] [address] Jun, [facility] [address] [id number] [address] [place] [address] 03 Jun, 2010 [facility] [address] [id number] [address] [place] [id number] 29 May, 2010 [facility] [address] [id number] [address] [place] [address] [address] Apr, [address] [facility] [address] [id number] [address] [place] [address] 13 Oct[address] 2009 [facility] [address] [id number] [address] [place] [address] 13 Aug, [address] [facility] [address] [id number] [address] [place] [address] [address], [address] [facility] [address] [id number] [address] [place] [address] [address] Jun, [address] [facility] [address] [id number] [address] [place] [id number] [address], [address] [facility] [address] [id number] [address] [place] [id number] [address] Jun, [address] [facility] [address] [id number] [address] [place] [id number] [address], [address] [facility] [address] [id number] [address] [place] [address] [address], [address] [facility] [address] [id number] [address] [place] [address] [address] Apr, [address] [facility] [address] [id number] [address] [place] [id number] 15 Mar, [address] [facility] [address] [id number] [address] [place] [id number] 14 Mar, 2009 [facility] [address] [id number] [address] [place] [id number] 11 Dec, 2008 IMMUNIZATIONS No Known Immunizations SOCIAL HISTORY Never Assessed REASON FOR VISIT [place] [place] VITAL SIGNS MEDICATIONS Unknown [...]
--- OUTSIDE RECORDS SUMMARY | 2019-09-01 05:22 | XMS REPORT ---
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 [id number] [address] [place] [address], [place] [address] Jun, [facility] [place] [facility] [address] [id number] [address] [place] [address], [place] [address] May, [facility] [place] [facility] [address] [id number] [address] [place] [address], [place] [address] May, [facility] [place] [facility] [address] [id number] [address] [place] [address], [place] [address] May, [facility] [address] [id number] [address] [place] [address], [place] [address] May, [facility] [place] [facility] [address] [id number] [address] [place] [address], [place] [address] Apr, [facility] [place] [facility] [address] [id number] [address] [place] [address], [place] [address] Apr, [facility] [address] [id number] [address] [place] [address], [place] [address] Apr, [facility] [place] [facility] [address] [id number] [address] [place] [address], [place] [address] Apr, [facility] [address] [id number] [address] [place] [address], [place] [address] Apr, [facility] [place] [facility] [address] [id number] [address] [place] [address], [place] [address] Apr, [facility] [place] [facility] [address] [id number] [address] [place] [address], [place] [address] Apr, [facility] [place] [facility] [address] [id number] [address] [place] [address], [place] [address] Apr, [facility] [place] [facility] [address] [id number] [address] [place] [address], [place] [address] Apr, [facility] [place] [facility] [address] [id number] [address] [place] [address], [place] [address] Apr, [facility] [address] [id number] [facility] [place] [address] Mar, 2013 [facility] [place] [facility] [address] [id number] [address] [place] [address], [place] [address] Mar, 2013 [facility] [place] [facility] [address] [id number] [address] [place] [address], [place] [address] Mar, 2013 [facility] [place] [facility] [address] [id number] [address] [place] [address], [place] [address] Mar, 2013 [facility] [place] [facility] [address] [id number] [address] [place] [address], [place] [address] Mar, 2013 [facility] [place] [facility] [address] [id number] [address] [place] [address], [place] [address] Mar, 2013 [facility] [place] [facility] [address] [id number] [address] [place] [address], [place] [address] Mar, 2013 [facility] [place] [facility] [address] [id number] [address] [place] [address], [place] [address] Mar, 2013 [facility] [place] [facility] [address] [id number] [address] [place] [address], [place] [address] Mar, 2013 [facility] [place] [facility] [address] [id number] [address] [place] [address], [place] [address] Mar, 2013 [facility] [place] [facility] [address] [id number] [address] [place] [address], [place] [address] Mar, 2013 [facility] [place] [facility] [address] [id number] [address] [place] [address], [place] [address] Mar, 2013 [facility] [place] [facility] [address] [id number] [address] [place] [address], [place] [address] Feb, [facility] [place] [facility] [address] [id number] [address] [place] [address], [place] [address] Feb, [facility] [place] [facility] [address] [id number] [address] [place] [address], [place] [address] Jan, [facility] [place] [facility] [address] [id number] [address] [place] [address], [place] [address] Jan, [facility] [address] [id number] [address] [place] [address], [place] [address] Jan, [facility] [address] [id number] [address] [place] [address], [place] [address] Jan, [facility] [address] [id number] [address] [place] [address], [place] [address] Dec, [facility] [address] [id number] [address] [place] [address], [place] [address] Dec, [facility] [address] [id number] [address] [place] [address], [place] [address] Dec, [facility] [address] [id number] [address] [place] [address], [place] [address] Dec, [facility] [address] [id number] [address] [place] [address], [place] [address] Dec, [facility] [address] [id number] [address] [place] [address], [place] [address] Dec, [facility] [address] [id number] [address] [place] [address], [place] [address] November, [facility] [address] [id number] [address] [place] [address], [place] [address] November, [facility] [address] [id number] [address] [place] [address], [place] [address] November, [facility] [address] [id number] [address] [place] [address], [place] [address] November, [facility] [address] [id number] [address] [place] [address], [place] [address] November, [facility] [address] [id number] [address] [place] [address], [place] [address] November, [address] [id number] November, [facility] [address] [id number] [address] [address] November, [facility] [address] [id number] [address] [place] [address], [place] [address] November, [facility] [address] [id number] [address] [place] [address], [place] [address] November, [facility] [address] [id number] [address] [place] [address], [place] [address] November, [facility] [address] [id number] [address] [place] [address], [place] [address] November, [facility] [address] [id number] [address] [place] [address], [place] [address] Oct, [facility] [address] [id number] [address] [place] [address], [place] [address] Oct, [facility] [address] [id number] [address] [place] [address], [place] [address] Oct, [facility] [address] [id number] [address] [place] [address], [place] [address] Oct, [facility] [address] [id number] [address] [place] [address], [place] [address] Oct, [facility] [address] [id number] [address] [place] [address], [place] [address] Oct, [facility] [address] [id number] [address] [place] [address], [place] [address] Oct, [facility] [address] [id number] [address] [place] [address], [place] [address] Oct, [facility] [address] [id number] [address] [place] [address], [place] [address] Oct, [facility] [address] [id number] [address] [place] [address], [place] [address] Oct, [facility] [address] [id number] [address] [place] [address], [place] [address] Oct, [facility] [place] [facility] [address] [id number] [facility] [address] Oct, [facility] [address] [id number] [address] [place] [address], [place] [address] Oct, [facility] [address] [id number] [address] [place] [address], [place] [address] Oct, [facility] [address] [id number] [address] [place] [address], [place] [address] Oct, [facility] [address] [id number] [address] [place] [address], [place] [address] Sep, [facility] [address] [id number] [address] [place] [address], [place] [address] Sep, [facility] [address] [id number] [address] [place] [address], [place] [address] Sep, [facility] [address] [id number] [address] [place] [address], [place] [address] Sep, [facility] [address] [id number] [address] [place] [address], [place] [address] Aug, [facility] [address] [id number] [address] [place] [address], [place] [address] Aug, [facility] [address] [id number] [address] [place] [address], [place] [address] Aug, [facility] [address] [id number] [address] [place] [address], [place] [address] Aug, [facility] [address] [id number] [address] [place] [address], [place] [address] Jul, [facility] [address] [id number] [address] [place] [address], [place] [address] Jul, [facility] [address] [id number] [address] [place] [address], [place] [address] Jul, [facility] [address] [id number] [address] [place] [address], [place] [address] Jul, [facility] [address] [id number] [address] [place] [address], [place] [address] Jul, [facility] [address] [id number] [address] [place] [address], [place] [address] Jul, [facility] [address] [id number] [address] [place] [address], [place] [address] Jul, [facility] [address] [id number] [address] [place] [address], [place] [address] Jul, [facility] [address] [id number] [address] [place] [address], [place] [address] Jul, [facility] [address] [id number] [address] [place] [address], [place] [address] Jul, [facility] [address] [id number] [address] [place] [address], [place] [address] Jul, [facility] [address] [id number] [address] [place] [address], [place] [address] Jul, [facility] [address] [id number] [address] [place] [address], [place] [address] Jul, [facility] [address] [id number] [address] [place] [address], [place] [address] Jul, [facility] [address] [id number] [address] [place] [address], [place] [address] Jun, [facility] [address] [id number] [address] [place] [address], [place] [address] Jun, [facility] [address] [id number] [address] [place] [address], [place] [address] Jun, [facility] [address] [id number] [address] [place] [address], [place] [address] Jun, [facility] [address] [id number] [address] [place] [address], [place] [address] May, [facility] [address] [id number] [address] [place] [address], [place] [address] May, [facility] [address] [id number] [address] [place] [address], [place] [address] May, [facility] [address] [id number] [address] [place] [address], [place] [address] May, [facility] [address] [id number] [address] [place] [address], [place] [address] May, [facility] [address] [id number] [address] [place] [address], [place] [address] May, [facility] [address] [id number] [address] [place] [address], [place] [address] May, [facility] [address] [id number] [address] [place] [address], [place] [address] May, [facility] [address] [id number] [address] [place] [address], [place] [address] Apr, [facility] [address] [id number] [address] [place] [address], [place] [address] Apr, [facility] [address] [id number] [address] [place] [address], [place] [address] Apr, [facility] [address] [id number] [address] [place] [address], [place] [address] Apr, [facility] [address] [id number] [address] [place] [address], [place] [address] Apr, [facility] [address] [id number] [address] [place] [address], [place] [address] Apr, [facility] [address] [id number] [address] [place] [address], [place] [address] 30 Mar, 2013 [facility] [address] [id number] [address] [place] [address], [place] [address] Mar, [facility] [address] [id number] [address] [place] [address], [place] [address] 20 Mar, 2013 [facility] [address] [id number] [facility] [place] [address] 17 Mar, 2013 [facility] [address] [id number] [address] [place] [address], [place] [address] 16 Mar, 2013 [facility] [address] [id number] [address] [place] [address], [place] [address] Mar, [facility] [address] [id number] [address] [place] [address], [place] [address] Feb, [facility] [address] [id number] [address] [place] [address], [place] [address] Feb, [facility] [address] [id number] [address] [place] [address], [place] [address] Feb, [facility] [address] [id number] [address] [place] [address], [place] [address] Feb, [facility] [address] [id number] [address] [place] [address], [place] [address] Jan, [facility] [address] [id number] [address] [place] [address], [place] [address] Jan, [facility] [address] [id number] [address] [place] [address], [place] [address] Jan, [facility] [address] [id number] [address] [place] [address], [place] [address] Jan, [facility] [address] [id number] [address] [place] [address], [place] [address] Jan, [facility] [address] [id number] [address] [place] [address], [place] [address] Dec, [facility] [address] [id number] [address] [place] [address], [place] [address] Dec, [facility] [address] [id number] [address] [place] [address], [place] [address] Dec, [facility] [address] [id number] [address] [place] [address], [place] [address] November, [facility] [address] [id number] [address] [place] [address], [place] [address] November, [facility] [address] [id number] [address] [place] [address], [place] [address] November, [facility] [address] [id number] [address] [place] [address], [place] [address] 27 Oct, 2012 [facility] [address] [id number] [address] [place] [address], [place] [address] Oct, [facility] [address] [id number] [address] [place] [address], [place] [address] Oct, [facility] [address] [id number] [address] [place] [address], [place] [address] Oct, [facility] [address] [id number] [address] [place] [address], [place] [address] Oct, [facility] [address] [id number] [address] [place] [address], [place] [address] 17 Oct, 2012 [facility] [address] [id number] [address] [place] [address], [place] [address] 15 Oct, 2012 [facility] [address] [id number] [address] [place] [address], [place] [address] Sep, [facility] [address] [id number] [address] [place] [address], [place] [address] Sep, [facility] [address] [id number] [address] [place] [address], [place] [address] Sep, [facility] [address] [id number] [address] [place] [address], [place] [address] Sep, [facility] [address] [id number] [address] [place] [address], [place] [address] Aug, [facility] [address] [id number] [address] [place] [address], [place] [address] Aug, [facility] [address] [id number] [address] [place] [address], [place] [address] Aug, [facility] [address] [id number] [address] [place] [address], [place] [address] Aug, [facility] [address] [id number] [address] [place] [address], [place] [address] Aug, [facility] [address] [id number] [address] [place] [address], [place] [address] Aug, [facility] [address] [id number] [address] [place] [address], [place] [address] Jul, [facility] [address] [id number] [address] [place] [address], [place] [address] Jul, [facility] [address] [id number] [address] [place] [address], [place] [address] Jul, [facility] [address] [id number] [address] [place] [address], [place] [address] Jul, [facility] [address] [id number] [address] [place] [address], [place] [address] Jul, [facility] [address] [id number] [address] [place] [address], [place] [address] Jul, [facility] [address] [id number] [address] [place] [address], [place] [address] Jun, [facility] [address] [id number] [address] [place] [address], [place] [address] Jun, [facility] [address] [id number] [address] [place] [address], [place] [address] Jun, [facility] [address] [id number] [address] [place] [address], [place] [address] Jun, [facility] [address] [id number] [address] [place] [address], [place] [address] Jun, [facility] [address] [id number] [address] [place] [address], [place] [address] Jun, [facility] [address] [id number] [address] [place] [address], [place] [address] May, [facility] [address] [id number] [address] [place] [address], [place] [address] May, [facility] [address] [id number] [address] [place] [address], [place] [address] May, [facility] [address] [id number] [address] [place] [address], [place] [address] May, [facility] [address] [id number] [address] [place] [address], [place] [address] May, [facility] [address] [id number] [address] [place] [address], [place] [address] May, [facility] [address] [id number] [address] [place] [address], [place] [address] May, [facility] [address] [id number] [address] [place] [address], [place] [address] May, [facility] [address] [id number] [address] [place] [address], [place] [address] May, [facility] [address] [id number] [address] [place] [address], [place] [address] May, [facility] [address] [id number] [address] [place] [address], [place] [address] Apr, [facility] [address] [id number] [address] [place] [address], [place] [address] 31 Apr, 2012 [facility] [address] [id number] [address] [place] [address], [place] [address] Apr, [facility] [address] [id number] [address] [place] [address], [place] [address] 23 Apr, 2012 [facility] [address] [id number] [address] [place] [address], [place] [address] 16 Apr, 2012 [facility] [address] [id number] [address] [place] [address], [place] [address] 16 Apr, 2012 [facility] [address] [id number] [address] [place] [address], [place] [address] 15 Apr, 2012 [facility] [address] [id number] [address] [place] [address], [place] [address] 15 Apr, 2012 [facility] [address] [id number] [address] [place] [address], [place] [address] 05 Apr, 2012 [facility] [address] [id number] [address] [place] [address], [place] [address] 28 Mar, 2012 [facility] [address] [id number] [address] [place] [address], [place] [address] 26 Mar, 2012 [facility] [address] [id number] [address] [place] [address], [place] [address] 25 Mar, 2012 [facility] [address] [id number] [address] [place] [address], [place] [address] 19 Mar, 2012 [facility] [address] [id number] [address] [place] [address], [place] [address] 18 Mar, 2012 [facility] [address] [id number] [address] [place] [address], [place] [address] 05 Mar, 2012 [facility] [address] [id number] [address] [place] [address], [place] [address] Feb, [facility] [address] [id number] [address] [place] [address], [place] [address] Feb, [facility] [address] [id number] [address] [place] [address], [place] [address] Feb, [facility] [address] [id number] [address] [place] [address], [place] [address] Jan, [facility] [address] [id number] [address] [place] [address], [place] [address] Jan, [facility] [address] [id number] [address] [place] [address], [place] [address] Jan, [facility] [address] [id number] [address] [place] [address], [place] [address] Jan, [facility] [address] [id number] [address] [place] [address], [place] [address] Dec, [facility] [address] [id number] [address] [place] [address], [place] [address] November, [facility] [address] [id number] [address] [place] [address], [place] [address] November, [facility] [address] [id number] [address] [place] [address], [place] [address] November, [facility] [address] [id number] [address] [place] [address], [place] [address] November, [facility] [address] [id number] [address] [place] [address], [place] [address] November, [facility] [address] [id number] [address] [place] [address], [place] [address] November, [facility] [address] [id number] [address] [place] [address], [place] [address] Oct, [facility] [address] [id number] [address] [place] [address], [place] [address] Oct, [facility] [address] [id number] [address] [place] [address], [place] [address] Sep, [facility] [address] [id number] [address] [place] [address], [place] [address] Sep, [facility] [address] [id number] [address] [place] [address], [place] [address] Sep, [facility] [address] [id number] [address] [place] [address], [place] [address] Aug, [facility] [address] [id number] [address] [place] [address], [place] [address] Aug, [facility] [address] [id number] [address] [place] [address], [place] [address] 14 Aug, 2011 [facility] [address] [id number] [address] [place] [address], [place] [address] 09 Aug, 2011 [facility] [address] [id number] [address] [place] [address], [place] [address] 02 Aug, 2011 [facility] [address] [id number] [address] [place] [address], [place] [address] Aug, [facility] [address] [id number] [address] [place] [address], [place] [address] Jul, [facility] [address] [id number] [address] [place] [address], [place] [address] Jul, [facility] [address] [id number] [address] [place] [address], [place] [address] Jul, [facility] [address] [id number] [address] [place] [address], [place] [address] Jul, [facility] [address] [id number] [address] [place] [address], [place] [address] Jul, [facility] [address] [id number] [address] [place] [address], [place] [address] Jul, [facility] [address] [id number] [address] [place] [address], [place] [address] 17 Jul, 2011 [facility] [address] [id number] [address] [place] [address], [place] [address] Jul, [facility] [address] [id number] [address] [place] [address], [place] [address] Jul, [facility] [address] [id number] [address] [place] [address], [place] [address] Jul, [facility] [address] [id number] [address] [place] [address], [place] [address] Jun, [facility] [address] [id number] [address] [place] [address], [place] [address] Jun, [facility] [address] [id number] [address] [place] [address], [place] [address] Jun, [facility] [address] [id number] [address] [place] [address], [place] [address] Jun, [facility] [address] [id number] [address] [place] [address], [place] [address] May, [facility] [address] [id number] [address] [place] [address], [place] [address] May, [facility] [address] [id number] [address] [place] [address], [place] [address] May, [facility] [address] [id number] [address] [place] [address], [place] [address] May, [facility] [address] [id number] [address] [place] [address], [place] [address] Apr, [facility] [address] [id number] [address] [place] [address], [place] [address] Apr, [facility] [address] [id number] [address] [place] [address], [place] [address] November, [facility] [address] [id number] [address] [place] [address], [place] [address] Oct, [facility] [address] [id number] [address] [place] [address], [place] [address] Aug, [facility] [address] [id number] [address] [place] [address], [place] [address] Jun, [facility] [address] [id number] [address] [place] [address], [place] [address] Jun, [facility] [address] [id number] [address] [place] [address], [place] [address] Jun, [facility] [address] [id number] [address] [place] [address], [place] [address] Jun, [facility] [address] [id number] [address] [place] [id number] 29 May, 2010 [facility] [address] [id number] [address] [place] [id number] 27 Apr, 2010 [facility] [address] [id number] [address] [place] [id number] Oct, [facility] [address] [id number] [address] [place] [id number] Aug, [facility] [address] [id number] [address] [place] [id number] Jul, [facility] [address] [id number] [address] [place] [id number] 22 Jun, 2009 [facility] [address] [id number] [address] [place] [id number] 16 Jun, 2009 [facility] [address] [id number] [address] [place] [id number] 14 Jun, 2009 [facility] [address] [id number] [address] [place] [id number] 14 Jun, 2009 [facility] [address] [id number] [address] [place] [id number] 09 May, 2009 [facility] [address] [id number] [address] [place] [id number] 20 Apr, 2009 [facility] [address] [id number] [address] [place] [id number] 15 Mar, 2009 [facility] [address] [id number] [address] [place] [id number] 14 Mar, 2009 [facility] [address] [id number] [address] [place] [id number] 11 Dec, 2008 IMMUNIZATIONS No Known Immunizations SOCIAL HISTORY Never Assessed REASON FOR VISIT EMR-[facility] [place] PLAN OF CARE VITAL SIGNS MEDICATIONS Unknown [...]
--- OUTSIDE RECORDS SUMMARY | 2019-09-01 05:22 | XMS REPORT ---
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 [facility] [place] [facility] [address] [id number] [address] [place] [address], [place] [address] Jun, [facility] [address] [id number] [address] [place] [address], [place] [address] Jun, [facility] [place] [facility] [address] [id number] [address] [place] [address], [place] [address] May, [facility] [place] [facility] [address] [id number] [address] [place] [address], [place] [address] May, [facility] [place] [facility] [address] [id number] [address] [place] [address], [place] [address] May, [facility] [address] [id number] [address] [place] [address], [place] [address] May, [facility] [place] [facility] [address] [id number] [address] [place] [address], [place] [address] Apr, [facility] [place] [facility] [address] [id number] [address] [place] [address], [place] [address] Apr, [facility] [address] [id number] [address] [place] [address], [place] [address] Apr, [facility] [place] [facility] [address] [id number] [address] [place] [address], [place] [address] Apr, [facility] [address] [id number] [address] [place] [address], [place] [address] Apr, [facility] [place] [facility] [address] [id number] [address] [place] [address], [place] [address] Apr, [facility] [place] [facility] [address] [id number] [address] [place] [address], [place] [address] Apr, [facility] [place] [facility] [address] [id number] [address] [place] [address], [place] [address] Apr, [facility] [place] [facility] [address] [id number] [address] [place] [address], [place] [address] Apr, [facility] [place] [facility] [address] [id number] [address] [place] [address], [place] [address] Apr, [facility] [address] [id number] [facility] [place] [address] Mar, 2013 [facility] [place] [facility] [address] [id number] [address] [place] [address], [place] [address] Mar, 2013 [facility] [place] [facility] [address] [id number] [address] [place] [address], [place] [address] Mar, 2013 [facility] [place] [facility] [address] [id number] [address] [place] [address], [place] [address] Mar, 2013 [facility] [place] [facility] [address] [id number] [address] [place] [address], [place] [address] Mar, 2013 [facility] [place] [facility] [address] [id number] [address] [place] [address], [place] [address] Mar, 2013 [facility] [place] [facility] [address] [id number] [address] [place] [address], [place] [address] Mar, 2013 [facility] [place] [facility] [address] [id number] [address] [place] [address], [place] [address] Mar, 2013 [facility] [place] [facility] [address] [id number] [address] [place] [address], [place] [address] Mar, 2013 [facility] [place] [facility] [address] [id number] [address] [place] [address], [place] [address] Mar, 2013 [facility] [place] [facility] [address] [id number] [address] [place] [address], [place] [address] Mar, 2013 [facility] [place] [facility] [address] [id number] [address] [place] [address], [place] [address] Mar, 2013 [facility] [place] [facility] [address] [id number] [address] [place] [address], [place] [address] Feb, [facility] [place] [facility] [address] [id number] [address] [place] [address], [place] [address] Feb, [facility] [place] [facility] [address] [id number] [address] [place] [address], [place] [address] Jan, [facility] [place] [facility] [address] [id number] [address] [place] [address], [place] [address] Jan, [facility] [address] [id number] [address] [place] [address], [place] [address] Jan, [facility] [address] [id number] [address] [place] [address], [place] [address] Jan, [facility] [address] [id number] [address] [place] [address], [place] [address] Dec, [facility] [address] [id number] [address] [place] [address], [place] [address] Dec, [facility] [address] [id number] [address] [place] [address], [place] [address] Dec, [facility] [address] [id number] [address] [place] [address], [place] [address] Dec, [facility] [address] [id number] [address] [place] [address], [place] [address] Dec, [facility] [address] [id number] [address] [place] [address], [place] [address] Dec, [facility] [address] [id number] [address] [place] [address], [place] [address] November, [facility] [address] [id number] [address] [place] [address], [place] [address] November, [facility] [address] [id number] [address] [place] [address], [place] [address] November, [facility] [address] [id number] [address] [place] [address], [place] [address] November, [facility] [address] [id number] [address] [place] [address], [place] [address] November, [facility] [address] [id number] [address] [place] [address], [place] [address] November, [address] [id number] November, [facility] [address] [id number] [address] [address] November, [facility] [address] [id number] [address] [place] [address], [place] [address] November, [facility] [address] [id number] [address] [place] [address], [place] [address] November, [facility] [address] [id number] [address] [place] [address], [place] [address] November, [facility] [address] [id number] [address] [place] [address], [place] [address] November, [facility] [address] [id number] [address] [place] [address], [place] [address] Oct, [facility] [address] [id number] [address] [place] [address], [place] [address] Oct, [facility] [address] [id number] [address] [place] [address], [place] [address] Oct, [facility] [address] [id number] [address] [place] [address], [place] [address] Oct, [facility] [address] [id number] [address] [place] [address], [place] [address] Oct, [facility] [address] [id number] [address] [place] [address], [place] [address] Oct, [facility] [address] [id number] [address] [place] [address], [place] [address] Oct, [facility] [address] [id number] [address] [place] [address], [place] [address] Oct, [facility] [address] [id number] [address] [place] [address], [place] [address] Oct, [facility] [address] [id number] [address] [place] [address], [place] [address] Oct, [facility] [address] [id number] [address] [place] [address], [place] [address] Oct, [facility] [place] [facility] [address] [id number] [facility] [place] [address] Oct, [facility] [address] [id number] [address] [place] [address], [place] [address] Oct, [facility] [address] [id number] [address] [place] [address], [place] [address] Oct, [facility] [address] [id number] [address] [place] [address], [place] [address] Oct, [facility] [address] [id number] [address] [place] [address], [place] [address] Sep, [facility] [address] [id number] [address] [place] [address], [place] [address] Sep, [facility] [address] [id number] [address] [place] [address], [place] [address] Sep, [facility] [address] [id number] [address] [place] [address], [place] [address] Sep, [facility] [address] [id number] [address] [place] [address], [place] [address] Aug, [facility] [address] [id number] [address] [place] [address], [place] [address] Aug, [facility] [address] [id number] [address] [place] [address], [place] [address] Aug, [facility] [address] [id number] [address] [place] [address], [place] [address] Aug, [facility] [address] [id number] [address] [place] [address], [place] [address] Jul, [facility] [place] [facility] [address] [id number] [address] [place] [address], [place] [address] Jul, [facility] [facility] [address] [id number] [address] [place] [address], [place] [address] Jul, [facility] [address] [id number] [address] [place] [address], [place] [address] Jul, [facility] [address] [id number] [address] [place] [address], [place] [address] Jul, [facility] [address] [id number] [address] [place] [address], [place] [address] Jul, [facility] [address] [id number] [address] [place] [address], [place] [address] Jul, [facility] [address] [id number] [address] [place] [address], [place] [address] Jul, [facility] [address] [id number] [address] [place] [address], [place] [address] Jul, [facility] [address] [id number] [address] [place] [address], [place] [address] Jul, [facility] [address] [id number] [address] [place] [address], [place] [address] Jul, [facility] [address] [id number] [address] [place] [address], [place] [address] Jul, [facility] [address] [id number] [address] [place] [address], [place] [address] Jul, [facility] [address] [id number] [address] [place] [address], [place] [address] Jul, [facility] [address] [id number] [address] [place] [address], [place] [address] Jun, [facility] [address] [id number] [address] [place] [address], [place] [address] Jun, [facility] [address] [id number] [address] [place] [address], [place] [address] Jun, [facility] [address] [id number] [address] [place] [address], [place] [address] Jun, [facility] [address] [id number] [address] [place] [address], [place] [address] May, [facility] [address] [id number] [address] [place] [address], [place] [address] May, [facility] [address] [id number] [address] [place] [address], [place] [address] May, [facility] [address] [id number] [address] [place] [address], [place] [address] May, [facility] [address] [id number] [address] [place] [address], [place] [address] May, [facility] [address] [id number] [address] [place] [address], [place] [address] May, [facility] [address] [id number] [address] [place] [address], [place] [address] May, [facility] [address] [id number] [address] [place] [address], [place] [address] May, [facility] [address] [id number] [address] [place] [address], [place] [address] Apr, [facility] [address] [id number] [address] [place] [address], [place] [address] Apr, [facility] [address] [id number] [address] [place] [address], [place] [address] Apr, [facility] [address] [id number] [address] [place] [address], [place] [address] Apr, [facility] [address] [id number] [address] [place] [address], [place] [address] Apr, [facility] [address] [id number] [address] [place] [address], [place] [address] Apr, [facility] [address] [id number] [address] [place] [address], [place] [address] 30 Mar, 2013 [facility] [address] [id number] [address] [place] [address], [place] [address] Mar, [facility] [address] [id number] [address] [place] [address], [place] [address] 20 Mar, 2013 [facility] [address] [id number] [facility] [place] [address] 17 Mar, 2013 [facility] [address] [id number] [address] [place] [address], [place] [address] 16 Mar, 2013 [facility] [address] [id number] [address] [place] [address], [place] [address] Mar, [facility] [address] [id number] [address] [place] [address], [place] [address] Feb, [facility] [address] [id number] [address] [place] [address], [place] [address] Feb, [facility] [address] [id number] [address] [place] [address], [place] [address] Feb, [facility] [address] [id number] [address] [place] [address], [place] [address] Feb, [facility] [address] [id number] [address] [place] [address], [place] [address] Jan, [facility] [address] [id number] [address] [place] [address], [place] [address] Jan, [facility] [address] [id number] [address] [place] [address], [place] [address] Jan, [facility] [address] [id number] [address] [place] [address], [place] [address] Jan, [facility] [address] [id number] [address] [place] [address], [place] [address] Jan, [facility] [address] [id number] [address] [place] [address], [place] [address] Dec, [facility] [address] [id number] [address] [place] [address], [place] [address] Dec, [facility] [address] [id number] [address] [place] [address], [place] [address] Dec, [facility] [address] [id number] [address] [place] [address], [place] [address] November, [facility] [address] [id number] [address] [place] [address], [place] [address] November, [facility] [address] [id number] [address] [place] [address], [place] [address] November, [facility] [facility] [address] [id number] [address] [place] [address], [place] [address] 27 Oct, 2012 [facility] [address] [id number] [address] [place] [address], [place] [address] Oct, [facility] [address] [id number] [address] [place] [address], [place] [address] Oct, [facility] [address] [id number] [address] [place] [address], [place] [address] Oct, [facility] [address] [id number] [address] [place] [address], [place] [address] Oct, [facility] [address] [id number] [address] [place] [address], [place] [address] 17 Oct, 2012 [facility] [address] [id number] [address] [place] [address], [place] [address] 15 Oct, 2012 [facility] [address] [id number] [address] [place] [address], [place] [address] Sep, [facility] [address] [id number] [address] [place] [address], [place] [address] Sep, [facility] [address] [id number] [address] [place] [address], [place] [address] Sep, [facility] [address] [id number] [address] [place] [address], [place] [address] Sep, [facility] [address] [id number] [address] [place] [address], [place] [address] Aug, [facility] [address] [id number] [address] [place] [address], [place] [address] Aug, [facility] [address] [id number] [address] [place] [address], [place] [address] Aug, [facility] [address] [id number] [address] [place] [address], [place] [address] Aug, [facility] [address] [id number] [address] [place] [address], [place] [address] Aug, [facility] [address] [id number] [address] [place] [address], [place] [address] Aug, [facility] [address] [id number] [address] [place] [address], [place] [address] Jul, [facility] [address] [id number] [address] [place] [address], [place] [address] Jul, [facility] [address] [id number] [address] [place] [address], [place] [address] Jul, [facility] [address] [id number] [address] [place] [address], [place] [address] Jul, [facility] [address] [id number] [address] [place] [address], [place] [address] Jul, [facility] [address] [id number] [address] [place] [address], [place] [address] Jul, [facility] [address] [id number] [address] [place] [address], [place] [address] Jun, [facility] [address] [id number] [address] [place] [address], [place] [address] Jun, [facility] [address] [id number] [address] [place] [address], [place] [address] Jun, [facility] [address] [id number] [address] [place] [address], [place] [address] Jun, [facility] [address] [id number] [address] [place] [address], [place] [address] Jun, [facility] [address] [id number] [address] [place] [address], [place] [address] Jun, [facility] [address] [id number] [address] [place] [address], [place] [address] May, [facility] [address] [id number] [address] [place] [address], [place] [address] May, [facility] [address] [id number] [address] [place] [address], [place] [address] May, [facility] [address] [id number] [address] [place] [address], [place] [address] May, [facility] [address] [id number] [address] [place] [address], [place] [address] May, [facility] [address] [id number] [address] [place] [address], [place] [address] May, [facility] [address] [id number] [address] [place] [address], [place] [address] May, [facility] [address] [id number] [address] [place] [address], [place] [address] May, [facility] [address] [id number] [address] [place] [address], [place] [address] May, [facility] [address] [id number] [address] [place] [address], [place] [address] May, [facility] [address] [id number] [address] [place] [address], [place] [address] Apr, [facility] [address] [id number] [address] [place] [address], [place] [address] 31 Apr, 2012 [facility] [address] [id number] [address] [place] [address], [place] [address] Apr, [facility] [address] [id number] [address] [place] [address], [place] [address] 23 Apr, 2012 [facility] [address] [id number] [address] [place] [address], [place] [address] 16 Apr, 2012 [facility] [address] [id number] [address] [place] [address], [place] [address] 16 Apr, 2012 [facility] [address] [id number] [address] [place] [address], [place] [address] 15 Apr, 2012 [facility] [address] [id number] [address] [place] [address], [place] [address] 15 Apr, 2012 [facility] [address] [id number] [address] [place] [address], [place] [address] 05 Apr, 2012 [facility] [address] [id number] [address] [place] [address], [place] [address] 28 Mar, 2012 [facility] [address] [id number] [address] [place] [address], [place] [address] 26 Mar, 2012 [facility] [address] [id number] [address] [place] [address], [place] [address] 25 Mar, 2012 [facility] [address] [id number] [address] [place] [address], [place] [address] 19 Mar, 2012 [facility] [address] [id number] [address] [place] [address], [place] [address] 18 Mar, 2012 [facility] [address] [id number] [address] [place] [address], [place] [address] 05 Mar, 2012 [facility] [address] [id number] [address] [place] [address], [place] [address] Feb, [facility] [address] [id number] [address] [place] [address], [place] [address] Feb, [facility] [address] [id number] [address] [place] [address], [place] [address] Feb, [facility] [address] [id number] [address] [place] [address], [place] [address] Jan, [facility] [address] [id number] [address] [place] [address], [place] [address] Jan, [facility] [address] [id number] [address] [place] [address], [place] [address] Jan, [facility] [address] [id number] [address] [place] [address], [place] [address] Jan, [facility] [address] [id number] [address] [place] [address], [place] [address] Dec, [facility] [address] [id number] [address] [place] [address], [place] [address] November, [facility] [address] [id number] [address] [place] [address], [place] [address] November, [facility] [address] [id number] [address] [place] [address], [place] [address] November, [facility] [address] [id number] [address] [place] [address], [place] [address] November, [facility] [address] [id number] [address] [place] [address], [place] [address] November, [facility] [address] [id number] [address] [place] [address], [place] [address] November, [facility] [address] [id number] [address] [place] [address], [place] [address] Oct, [facility] [address] [id number] [address] [place] [address], [place] [address] Oct, [facility] [address] [id number] [address] [place] [address], [place] [address] Sep, [facility] [address] [id number] [address] [place] [address], [place] [address] Sep, [facility] [address] [id number] [address] [place] [address], [place] [address] Sep, [facility] [address] [id number] [address] [place] [address], [place] [address] Aug, [facility] [address] [id number] [address] [place] [address], [place] [address] Aug, [facility] [address] [id number] [address] [place] [address], [place] [address] 14 Aug, 2011 [facility] [address] [id number] [address] [place] [address], [place] [address] 09 Aug, 2011 [facility] [address] [id number] [address] [place] [address], [place] [address] 02 Aug, 2011 [facility] [address] [id number] [address] [place] [address], [place] [address] Aug, [facility] [address] [id number] [address] [place] [address], [place] [address] Jul, [facility] [address] [id number] [address] [place] [address], [place] [address] Jul, [facility] [address] [id number] [address] [place] [address], [place] [address] Jul, [facility] [address] [id number] [address] [place] [address], [place] [address] Jul, [facility] [address] [id number] [address] [place] [address], [place] [address] Jul, [facility] [address] [id number] [address] [place] [address], [place] [address] Jul, [facility] [address] [id number] [address] [place] [address], [place] [address] 17 Jul, 2011 [facility] [address] [id number] [address] [place] [address], [place] [address] Jul, [facility] [address] [id number] [address] [place] [address], [place] [address] Jul, [facility] [address] [id number] [address] [place] [address], [place] [address] Jul, [facility] [address] [id number] [address] [place] [address], [place] [address] Jun, [facility] [address] [id number] [address] [place] [address], [place] [address] Jun, [facility] [address] [id number] [address] [place] [address], [place] [address] Jun, [facility] [address] [id number] [address] [place] [address], [place] [address] Jun, [facility] [address] [id number] [address] [place] [address], [place] [address] May, [facility] [address] [id number] [address] [place] [address], [place] [address] May, [facility] [address] [id number] [address] [place] [address], [place] [address] May, [facility] [address] [id number] [address] [place] [address], [place] [address] May, [facility] [address] [id number] [address] [place] [address], [place] [address] Apr, [facility] [address] [id number] [address] [place] [address], [place] [address] Apr, [facility] [address] [id number] [address] [place] [address], [place] [address] November, [facility] [address] [id number] [address] [place] [address], [place] [address] Oct, [facility] [address] [id number] [address] [place] [address], [place] [address] Aug, [facility] [address] [id number] [address] [place] [address], [place] [address] Jun, [facility] [address] [id number] [address] [place] [address], [place] [address] Jun, [facility] [address] [id number] [address] [place] [address], [place] [address] Jun, [facility] [address] [id number] [address] [place] [address], [place] [address] Jun, [facility] [address] [id number] [address] [place] [address] 29 May, 2010 [facility] [address] [id number] [address] [place] [address] 27 Apr, 2010 [facility] [address] [id number] [address] [place] [address] Oct, [facility] [address] [id number] [address] [place] [address] Aug, [facility] [address] [id number] [address] [place] [address] Jul, [facility] [address] [id number] [address] [place] [address] 22 Jun, 2009 [facility] [address] [id number] [address] [place] [address] 16 Jun, 2009 [facility] [address] [id number] [address] [place] [address] 14 Jun, 2009 [facility] [address] [id number] [address] [place] [address] 14 Jun, 2009 [facility] [address] [id number] [address] [place] [address] May, [facility] [address] [id number] [address] [place] [address] 20 Apr, 2009 [facility] [address] [id number] [address] [place] [id number] 15 Mar, 2009 [facility] [address] [id number] [address] [place] [id number] 14 Mar, 2009 [facility] [address] [id number] [address] [place] [id number] Dec, IMMUNIZATIONS No Known Immunizations SOCIAL HISTORY Never Assessed REASON FOR VISIT EMR-[facility] [place]AN OF CARE VITAL SIGNS MEDICATIONS Medication Instructions Dosage Frequency Start Date End Date Duration S campbell amitriptyline 25 mg 1 tablet by Oral route 1 time per day at bedtime Sep, Active Cymbalta 60 mg 1 capsule by Oral route 1 time per day for 7 days Jan, Active Azithromycin 250 mg 2 Tablet by Oral route 1 time per day for 6 days Oct, Active Aciphex 20 mg 1 tablet by Oral route 1 time per day To replace Prevacid Jun, Active Mobic 15 mg take 1 tablet by Oral route 1 time per day PRN November, Active amlodipine 5 mg 1 tablet by Oral route 1 time per day Sep, Active Loratadine 10 mg take 1 tablet by Ora l route 1 time per day take at hs for allergies Sep, Active Lancets 2 times per day Mar, Act ariella Voltaren 1 % 1 Application by Tra nsdermal route 3 daily for 10 days Apply 4 gm to affected area See note Mar, A ctive Abilify 5 mg 1 tablet by Oral route 1 time per day r, 2014 Active Imitrex 100 mg 1 tablet by Oral rou te 1 time per day & repeat once after 2 hours if headache recurs PRN To replace Axert Sep, Active tramadol 50 mg 1 Tablet by Oral route 3 times per day PRN Sep, Active conjugated estrogens 0.625 mg/gram 1 g b y Vaginal route 1 time per day use on external genitalia daily for 2 weeks then 3 times a week November, 13 Active metformin 500 mg 2 tablet by Oral route 2 times per da y with meals. Sep, Active Bactrim DS 800-160 mg 1 tablet by Oral route 2 times p er day for 3 day(s) Oct, Active Lyrica 50 mg 1 capsule by Oral route 1 time per day qHS Sep, Active RESULTS No Results PROCEDURES No Known [...]
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
--- OUTSIDE RECORDS SUMMARY | 2019-09-01 05:23 | XMS REPORT ---
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 [id number] [address] [place] [address], [place] [address] Apr, [facility] [address] [id number] [address] [place] [address], [place] [address] Apr, [facility] [address] [id number] [address] [place] [address], [place] [address] Mar, 2013 [facility] [address] [id number] [address] [place] [address], [place] [address] Mar, 2013 [facility] [address] [id number] [address] [place] [address], [place] [address] Mar, 2013 [facility] [address] [id number] [address] [place] [address], [place] [address] Mar, 2013 [facility] [address] [id number] [address] [place] [address], [place] [address] 10 Mar, 2013 [facility] [address] [id number] [address] [place] [address], [place] [address] 10 Mar, 2013 [facility] [address] [id number] [address] [place] [address], [place] [address] Mar, 2013 [facility] [address] [id number] [address] [place] [address] 04 Mar, 2013 [facility] [address] [id number] [address] [place] [address], [place] [address] Mar, 2013 [facility] [address] [id number] [address] [place] [address], [place] [address] Mar, 2013 [facility] [address] [id number] [address] [place] [address], [place] [address] Mar, 2013 [facility] [address] [id number] [address] [place] [address] Mar, [facility] [address] [id number] [address] [place] [address], [place] [address] Feb, [facility] [address] [id number] [address] [place] [address], [place] [address] Feb, [facility] [address] [id number] [address] [place] [address], [place] [address] Jan, [facility] [address] [id number] [address] [place] [address], [place] [address] Jan, [facility] [address] [id number] [address] [place] [address], [place] [address] Jan, [facility] [address] [id number] [address] [place] [address], [place] [address] Jan, [facility] [address] [id number] [address] [place] [address], [place] [address] Dec, [facility] [address] [id number] [address] [place] [address], [place] [address] Dec, [facility] [address] [id number] [address] [place] [address], [place] [address] Dec, [facility] [address] [id number] [address] [place] [address], [place] [address] Dec, [facility] [address] [id number] [address] [place] [address], [place] [address] Dec, [facility] [address] [id number] [address] [place] [address], [place] [address] Dec, [facility] [address] [id number] [address] [place] [address], [place] [address] November, [facility] [address] [id number] [address] [place] [address], [place] [address] November, [facility] [address] [id number] [address] [place] [address], [place] [address] November, [facility] [address] [id number] [address] [place] [address], [place] [address] November, [facility] [address] [id number] [address] [place] [address], [place] [address] November, [facility] [address] [id number] [address] [place] [address], [place] [address] November, [facility] [address] [place] [id number] November, [facility] [address] [id number] [address] [place] [address], [place] [address] November, [facility] [address] [id number] [address] [place] [address], [place] [address] November, [facility] [address] [id number] [address] [place] [address], [place] [address] November, [facility] [address] [id number] [address] [place] [address], [place] [address] November, [facility] [address] [id number] [address] [place] [address], [place] [address] November, [facility] [address] [id number] [address] [place] [address], [place] [address] Oct, [facility] [address] [id number] [address] [place] [address], [place] [address] Oct, [facility] [address] [id number] [address] [place] [address], [place] [address] Oct, [facility] [address] [id number] [address] [place] [address], [place] [address] Oct, [facility] [address] [id number] [address] [place] [address], [place] [address] Oct, [facility] [address] [id number] [address] [place] [address], [place] [address] Oct, [facility] [address] [id number] [address] [place] [address], [place] [address] Oct, [facility] [address] [id number] [facility] [place] [address] Oct, [facility] [address] [id number] [address] [place] [address], [place] [address] Oct, [facility] [address] [id number] [address] [place] [address], [place] [address] Oct, [facility] [address] [id number] [address] [place] [address], [place] [address] Oct, [facility] [address] [id number] [address] [place] [address], [place] [address] Oct, [facility] [address] [id number] [address] [place] [address], [place] [address] Oct, [facility] [address] [id number] [address] [place] [address], [place] [address] Oct, [facility] [address] [id number] [address] [place] [address], [place] [address] Oct, [facility] [address] [id number] [address] [place] [address], [place] [address] Sep, [facility] [address] [id number] [address] [place] [address] [address] Sep, [facility] [address] [id number] [address] [place] [address], [place] [address] Sep, [facility] [address] [id number] [address] [place] [address], [place] [address] Sep, [facility] [address] [id number] [address] [place] [address], [place] [address] Aug, [facility] [address] [id number] [address] [place] [address], [place] [address] Aug, [facility] [address] [id number] [address] [place] [address], [place] [address] Aug, [facility] [address] [id number] [address] [place] [address], [place] [address] Aug, [facility] [address] [id number] [address] [place] [address], [place] [address] Jul, [facility] [address] [id number] [address] [place] [address], [place] [address] Jul, [facility] [address] [id number] [address] [place] [address], [place] [address] Jul, [facility] [address] [id number] [address] [place] [address], [place] [address] Jul, [facility] [address] [id number] [address] [place] [address], [place] [address] Jul, [facility] [address] [id number] [address] [place] [address], [place] [address] Jul, [facility] [address] [id number] [address] [place] [address], [place] [address] Jul, [facility] [address] [id number] [address] [place] [address], [place] [address] Jul, [facility] [address] [id number] [address] [place] [address], [place] [address] Jul, [facility] [address] [id number] [address] [place] [address], [place] [address] Jul, [facility] [address] [id number] [address] [place] [address], [place] [address] Jul, [facility] [address] [id number] [address] [place] [address], [place] [address] Jul, [facility] [address] [id number] [address] [place] [address], [place] [address] Jul, [facility] [address] [id number] [address] [place] [address], [place] [address] Jul, [facility] [address] [id number] [address] [place] [address], [place] [address] Jun, [facility] [address] [id number] [address] [place] [address], [place] [address] Jun, [facility] [address] [id number] [address] [place] [address], [place] [address] Jun, [facility] [address] [id number] [address] [place] [address], [place] [address] Jun, [facility] [address] [id number] [address] [place] [address], [place] [address] May, [facility] [address] [id number] [address] [place] [address], [place] [address] May, [facility] [address] [id number] [address] [place] [address], [place] [address] May, [facility] [address] [id number] [address] [place] [address], [place] [address] May, [facility] [address] [id number] [address] [place] [address], [place] [address] May, [facility] [address] [id number] [address] [place] [address], [place] [address] May, [facility] [address] [id number] [address] [place] [address], [place] [address] May, [facility] [address] [id number] [address] [place] [address], [place] [address] May, [facility] [address] [id number] [address] [place] [address], [place] [address] Apr, [facility] [address] [id number] [address] [place] [address], [place] [address] Apr, [facility] [address] [id number] [address] [place] [address], [place] [address] Apr, [facility] [address] [id number] [address] [place] [address], [place] [address] Apr, [facility] [address] [id number] [address] [place] [address], [place] [address] Apr, [facility] [address] [id number] [address] [place] [address], [place] [address] Apr, [facility] [address] [id number] [address] [place] [address], [place] [id number] 30 Mar, 2013 [facility] [address] [id number] [address] [place] [address], [place] [address] 26 Mar, 2013 [facility] [address] [id number] [address] [place] [address], [place] [address] 20 Mar, 2013 [facility] [address] [id number] [address] [place] [address], [place] [id number] 17 Mar, 2013 [facility] [address] [id number] [address] [place] [address], [place] [address] 16 Mar, 2013 [facility] [address] [id number] [address] [place] [address], [place] [address] 05 Mar, 2013 [facility] [address] [id number] [address] [place] [address], [place] [address] Feb, [facility] [address] [id number] [address] [place] [address], [place] [address] Feb, [facility] [address] [id number] [address] [place] [address], [place] [address] Feb, [facility] [address] [id number] [address] [place] [address], [place] [address] Feb, [facility] [address] [id number] [address] [place] [address], [place] [address] Jan, [facility] [address] [id number] [address] [place] [address], [place] [address] Jan, [facility] [address] [id number] [address] [place] [address], [place] [address] Jan, [facility] [address] [id number] [address] [place] [address], [place] [address] Jan, [facility] [address] [id number] [address] [place] [address], [place] [address] 16 Jan, 2013 [facility] [address] [id number] [address] [place] [address], [place] [address] Dec, [facility] [address] [id number] [address] [place] [address], [place] [address] Dec, [facility] [address] [id number] [address] [place] [address], [place] [address] Dec, [facility] [address] [id number] [address] [place] [address], [place] [address] November, [facility] [address] [id number] [address] [place] [address], [place] [address] November, [facility] [address] [id number] [address] [place] [address], [place] [address] November, [facility] [address] [id number] [address] [place] [address], [place] [address] Oct, [facility] [address] [id number] [address] [place] [address], [place] [address] Oct, [facility] [address] [id number] [address] [place] [address], [place] [address] Oct, [facility] [address] [id number] [address] [place] [address], [place] [address] Oct, [facility] [address] [id number] [address] [place] [address], [place] [address] 18 Oct, 2012 [facility] [facility] [address] [id number] [address] [place] [address], [place] [address] 17 Oct, 2012 [facility] [address] [id number] [address] [place] [address], [place] [address] 15 Oct, 2012 [facility] [address] [id number] [address] [place] [address], [place] [address] 26 Sep, 2012 [facility] [address] [id number] [address] [place] [address], [place] [address] Sep, [facility] [address] [id number] [address] [place] [address], [place] [address] Sep, [facility] [address] [id number] [address] [place] [address], [place] [address] Sep, [facility] [address] [id number] [address] [place] [address], [place] [address] Aug, [facility] [address] [id number] [address] [place] [address], [place] [address] Aug, [facility] [address] [id number] [address] [place] [address], [place] [address] Aug, [facility] [address] [id number] [address] [place] [address], [place] [address] Aug, [facility] [address] [id number] [address] [place] [address], [place] [address] Aug, [facility] [address] [id number] [address] [place] [address], [place] [address] Aug, [facility] [address] [id number] [address] [place] [address], [place] [address] Jul, [facility] [address] [id number] [address] [place] [address], [place] [address] Jul, [facility] [address] [id number] [address] [place] [address], [place] [address] Jul, [facility] [address] [id number] [address] [place] [address], [place] [address] Jul, [facility] [address] [id number] [address] [place] [address], [place] [address] Jul, [facility] [address] [id number] [address] [place] [address], [place] [address] Jul, [facility] [address] [id number] [address] [place] [address], [place] [address] Jun, [facility] [address] [id number] [address] [place] [address], [place] [address] Jun, [facility] [address] [id number] [address] [place] [address], [place] [address] Jun, [facility] [address] [id number] [address] [place] [address], [place] [address] Jun, [facility] [address] [id number] [address] [place] [address], [place] [address] Jun, [facility] [address] [id number] [address] [place] [address], [place] [address] Jun, [facility] [address] [id number] [address] [place] [address], [place] [address] May, [facility] [address] [id number] [address] [place] [address], [place] [address] May, [facility] [address] [id number] [address] [place] [address], [place] [address] May, [facility] [address] [id number] [address] [place] [address], [place] [address] May, [facility] [address] [id number] [address] [place] [address], [place] [address] May, [facility] [address] [id number] [address] [place] [address], [place] [address] May, [facility] [address] [id number] [address] [place] [address], [place] [address] May, [facility] [address] [id number] [address] [place] [address], [place] [address] May, [facility] [address] [id number] [address] [place] [address], [place] [address] May, [facility] [address] [id number] [address] [place] [address], [place] [address] May, [facility] [address] [id number] [address] [place] [address], [place] [address] Apr, [facility] [address] [id number] [address] [place] [address], [place] [address] 31 Apr, 2012 [facility] [address] [id number] [address] [place] [address], [place] [address] 23 Apr, 2012 [facility] [address] [id number] [address] [place] [address], [place] [address] 23 Apr, 2012 [facility] [address] [id number] [address] [place] [address], [place] [address] 16 Apr, 2012 [facility] [address] [id number] [address] [place] [address], [place] [address] 16 Apr, 2012 [facility] [address] [id number] [address] [place] [address], [place] [address] 15 Apr, 2012 [facility] [address] [id number] [address] [place] [address], [place] [address] 15 Apr, 2012 [facility] [address] [id number] [address] [place] [address], [place] [address] 05 Apr, 2012 [facility] [address] [id number] [address] [place] [address], [place] [address] 28 Mar, 2012 [facility] [address] [id number] [address] [place] [address], [place] [address] 26 Mar, 2012 [facility] [address] [id number] [address] [place] [address] [address] 25 Sep2011 [facility] [address] [id number] [address] [place] [address], [place] [address] 19 Sep, 2011 [facility] [address] [id number] [address] [place] [address] [address] 18 Sep2011 [facility] [address] [id number] [address] [place] [address], [place] [address] 05 Mar, 2012 [facility] [address] [id number] [address] [place] [address], [place] [address] 28 Feb, 2012 [facility] [address] [id number] [address] [place] [address], [place] [address] Feb, [facility] [address] [id number] [address] [place] [address], [place] [address] Feb, [facility] [address] [id number] [address] [place] [address], [place] [address] Jan, [facility] [address] [id number] [address] [place] [address], [place] [address] Jan, [facility] [address] [id number] [address] [place] [address], [place] [address] Jan, [facility] [address] [id number] [address] [place] [address], [place] [address] Jan, [facility] [address] [id number] [address] [place] [address], [place] [address] Dec, [facility] [address] [id number] [address] [place] [address], [place] [address] November, [facility] [address] [id number] [address] [place] [address], [place] [address] November, [facility] [address] [id number] [address] [place] [address], [place] [address] November, [facility] [address] [id number] [address] [place] [address], [place] [address] November, [facility] [address] [id number] [address] [place] [address], [place] [address] November, [facility] [address] [id number] [address] [place] [address], [place] [address] November, [facility] [address] [id number] [address] [place] [address], [place] [address] Oct, [facility] [address] [id number] [address] [place] [address], [place] [address] Oct, [facility] [address] [id number] [address] [place] [address], [place] [address] Sep, [facility] [address] [id number] [address] [place] [address], [place] [address] Sep, [facility] [address] [id number] [address] [place] [address], [place] [address] Sep, [facility] [address] [id number] [address] [place] [address], [place] [address] Aug, [facility] [address] [id number] [address] [place] [address], [place] [address] Aug, [facility] [address] [id number] [address] [place] [address], [place] [address] Aug, [facility] [address] [id number] [address] [place] [address], [place] [address] Aug, [facility] [address] [id number] [address] [place] [address], [place] [address] Aug, [facility] [address] [id number] [address] [place] [address], [place] [address] Aug, [facility] [address] [id number] [address] [place] [address], [place] [address] Jul, [facility] [address] [id number] [address] [place] [address], [place] [address] Jul, [facility] [address] [id number] [address] [place] [address], [place] [address] Jul, [facility] [address] [id number] [address] [place] [address], [place] [address] Jul, [facility] [address] [id number] [address] [place] [address], [place] [address] Jul, [facility] [address] [id number] [address] [place] [address], [place] [address] Jul, [facility] [address] [id number] [address] [place] [address], [place] [address] Jul, [facility] [address] [id number] [address] [place] [address] [address] Jul, [facility] [address] [id number] [address] [place] [address], [place] [address] Jul, [facility] [address] [id number] [address] [place] [address], [place] [address] Jul, [facility] [address] [id number] [address] [place] [address], [place] [address] Jun, [facility] [address] [id number] [address] [place] [address], [place] [address] Jun, [facility] [address] [id number] [address] [place] [address], [place] [address] Jun, [facility] [address] [id number] [address] [place] [address], [place] [address] Jun, [facility] [address] [id number] [address] [place] [address], [place] [address] May, [facility] [address] [id number] [address] [place] [address], [place] [address] May, [facility] [address] [id number] [address] [place] [address], [place] [address] May, [facility] [address] [id number] [address] [place] [address], [place] [address] May, [facility] [address] [id number] [address] [place] [address], [place] [address] Apr, [facility] [address] [id number] [address] [place] [address] Apr, [facility] [address] [id number] [address] [place] [address], [place] [address] November, [facility] [address] [id number] [address] [place] [address], [place] [address] Oct, [facility] [address] [id number] [address] [place] [address], [place] [address] Aug, [facility] [address] [id number] [address] [place] [address], [place] [address] 28 Jun, 2010 [facility] [address] [id number] [address] [place] [address], [place] [address] 28 Jun, 2010 [facility] [address] [id number] [address] [place] [address], [place] [address] 27 Jun, 2010 [facility] [address] [id number] [address] [place] [address], [place] [address] 03 Jun, 2010 [facility] [address] [id number] [address] [place] [address], [place] [address] 29 May, 2010 [facility] [address] [id number] [address] [place] [address], [place] [address] 27 Apr, 2010 [facility] [address] [id number] [address] [place] [address], [place] [address] 13 Oct, 2009 [facility] [address] [id number] [address] [place] [address], [place] [address] 13 Aug, 2009 [facility] [address] [id number] [address] [place] [address], [place] [address] 20 Jul, 2009 [facility] [address] [id number] [address] [place] [address], [place] [address] 22 Jun, 2009 [facility] [address] [id number] [address] [place] [address], [place] [address] 16 Jun, 2009 [facility] [address] [id number] [address] [place] [address], [place] [address] 14 Jun, 2009 [facility] [address] [id number] [address] [place] [address], [place] [address] 14 Jun, 2009 [facility] [address] [id number] [address] [place] [address], [place] [address] 09 May, 2009 [facility] [address] [id number] [address] [place] [address], [place] [address] 20 Apr, 2009 [facility] [address] [id number] [address] [place] [address], [place] [address] 15 Mar, 2009 [facility] [address] [facility] [id number] [address] [place] [id number] 14 Mar, 2009 [facility] [address] [facility] [id number] [address] [place] [address] 11 Dec, 2008 IMMUNIZATIONS No Known Immunizations SOCIAL HISTORY Never Assessed REASON FOR VISIT Pain and weakness PLAN OF CARE VITAL SIGNS MEDICATIONS Unknown [...]
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
--- OUTSIDE RECORDS SUMMARY | 2019-09-01 05:24 | XMS REPORT ---
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 [address] [id number] [address] [place] [address], [place] [address] Apr, [facility] [address] [id number] [address] [place] [address], [place] [address] Mar, 2013 [facility] [address] [id number] [address] [place] [address], [place] [address] Mar, 2013 [facility] [address] [id number] [address] [place] [address], [place] [address] Mar, 2013 [facility] [address] [id number] [address] [place] [address], [place] [address] Mar, 2013 [facility] [address] [id number] [address] [place] [address], [place] [address] 10 Mar, 2013 [facility] [address] [id number] [address] [place] [address], [place] [address] 10 Mar, 2013 [facility] [address] [id number] [address] [place] [address], [place] [address] Mar, 2013 [facility] [address] [id number] [address] [place] [id number] 04 Mar, 2013 [facility] [address] [id number] [address] [place] [address], [place] [address] Mar, 2013 [facility] [address] [id number] [address] [place] [address], [place] [address] Mar, 2013 [facility] [address] [id number] [address] [place] [address], [place] [address] Mar, 2013 [facility] [address] [id number] [address] [place] [id number] Mar, [facility] [address] [id number] [address] [place] [address], [place] [address] Feb, [facility] [address] [id number] [address] [place] [address], [place] [address] Feb, [facility] [address] [id number] [address] [place] [address], [place] [address] Jan, [facility] [address] [id number] [address] [place] [address], [place] [address] Jan, [facility] [address] [id number] [address] [place] [address], [place] [address] Jan, [facility] [address] [id number] [address] [place] [address], [place] [address] Jan, [facility] [address] [id number] [address] [place] [address], [place] [address] Dec, [facility] [address] [id number] [address] [place] [address], [place] [address] Dec, [facility] [address] [id number] [address] [place] [address], [place] [address] Dec, [facility] [address] [id number] [address] [place] [address], [place] [address] Dec, [facility] [address] [id number] [address] [place] [address], [place] [address] Dec, [facility] [address] [id number] [address] [place] [address], [place] [address] Dec, [facility] [address] [id number] [address] [place] [address], [place] [address] November, [facility] [address] [id number] [address] [place] [address], [place] [address] November, [facility] [address] [id number] [address] [place] [address], [place] [address] November, [facility] [address] [id number] [address] [place] [address], [place] [address] November, [facility] [address] [id number] [address] [place] [address], [place] [address] November, [facility] [address] [id number] [address] [place] [address], [place] [address] November, [facility] [address] [place] [id number] November, [facility] [address] [id number] [address] [place] [address], [place] [address] November, [facility] [address] [id number] [address] [place] [address], [place] [address] November, [facility] [address] [id number] [address] [place] [address], [place] [address] November, [facility] [address] [id number] [address] [place] [address], [place] [address] November, [facility] [address] [id number] [address] [place] [address], [place] [address] November, [facility] [address] [id number] [address] [place] [address], [place] [address] Oct, [facility] [address] [id number] [address] [place] [address], [place] [address] Oct, [facility] [address] [id number] [address] [place] [address], [place] [address] Oct, [facility] [address] [id number] [address] [place] [address], [place] [address] Oct, [facility] [address] [id number] [address] [place] [address], [place] [address] Oct, [facility] [address] [id number] [address] [place] [address], [place] [address] Oct, [facility] [address] [id number] [address] [place] [address], [place] [address] Oct, [facility] [address] [id number] [facility] [place] [address] Oct, [facility] [address] [id number] [address] [place] [address], [place] [address] Oct, [facility] [address] [id number] [address] [place] [address], [place] [address] Oct, [facility] [address] [id number] [address] [place] [address], [place] [address] Oct, [facility] [address] [id number] [address] [place] [address], [place] [address] Oct, [facility] [address] [id number] [address] [place] [address], [place] [address] Oct, [facility] [address] [id number] [address] [place] [address], [place] [address] Oct, [facility] [address] [id number] [address] [place] [address], [place] [address] Oct, [facility] [address] [id number] [address] [place] [address], [place] [address] Sep, [facility] [address] [id number] [address] [place] [address], [place] [address] Sep, [facility] [address] [id number] [address] [place] [address], [place] [address] Sep, [facility] [address] [id number] [address] [place] [address], [place] [address] Sep, [facility] [address] [id number] [address] [place] [address], [place] [address] Aug, [facility] [address] [id number] [address] [place] [address], [place] [address] Aug, [facility] [address] [id number] [address] [place] [address], [place] [address] Aug, [facility] [address] [id number] [address] [place] [address], [place] [address] Aug, [facility] [address] [id number] [address] [place] [address], [place] [address] Jul, [facility] [address] [id number] [address] [place] [address], [place] [address] Jul, [facility] [address] [id number] [address] [place] [address], [place] [address] Jul, [facility] [address] [id number] [address] [place] [address], [place] [address] Jul, [facility] [address] [id number] [address] [place] [address], [place] [address] Jul, [facility] [address] [id number] [address] [place] [address], [place] [address] Jul, [facility] [address] [id number] [address] [place] [address], [place] [address] Jul, [facility] [address] [id number] [address] [place] [address], [place] [address] Jul, [facility] [address] [id number] [address] [place] [address], [place] [address] Jul, [facility] [address] [id number] [address] [place] [address], [place] [address] Jul, [facility] [address] [id number] [address] [place] [address], [place] [address] Jul, [facility] [address] [id number] [address] [place] [address], [place] [address] Jul, [facility] [address] [id number] [address] [place] [address], [place] [address] Jul, [facility] [address] [id number] [address] [place] [address], [place] [address] Jul, [facility] [address] [id number] [address] [place] [address], [place] [address] Jun, [facility] [address] [id number] [address] [place] [address], [place] [address] Jun, [facility] [address] [id number] [address] [place] [address], [place] [address] Jun, [facility] [address] [id number] [address] [place] [address], [place] [address] Jun, [facility] [address] [id number] [address] [place] [address], [place] [address] May, [facility] [address] [id number] [address] [place] [address], [place] [address] May, [facility] [address] [id number] [address] [place] [address], [place] [address] May, [facility] [address] [id number] [address] [place] [address], [place] [address] May, [facility] [address] [id number] [address] [place] [address], [place] [address] May, [facility] [address] [id number] [address] [place] [address], [place] [address] May, [facility] [address] [id number] [address] [place] [address], [place] [address] May, [facility] [address] [id number] [address] [place] [address], [place] [address] May, [facility] [address] [id number] [address] [place] [address], [place] [address] Apr, [facility] [address] [id number] [address] [place] [address], [place] [address] Apr, [facility] [address] [id number] [address] [place] [address], [place] [address] Apr, [facility] [address] [id number] [address] [place] [address], [place] [address] Apr, [facility] [address] [id number] [address] [place] [address], [place] [address] Apr, [facility] [address] [id number] [address] [place] [address], [place] [address] Apr, [facility] [address] [id number] [address] [place] [address], [place] [address] 30 Mar, 2013 [facility] [address] [id number] [address] [place] [address], [place] [address] 26 Mar, 2013 [facility] [address] [id number] [address] [place] [address], [place] [address] 20 Mar, 2013 [facility] [address] [id number] [address] [place] [address], [place] [address] 17 Mar, 2013 [facility] [address] [id number] [address] [place] [address], [place] [address] 16 Mar, 2013 [facility] [address] [id number] [address] [place] [address], [place] [address] 05 Mar, 2013 [facility] [address] [id number] [address] [place] [address], [place] [address] Feb, [facility] [address] [id number] [address] [place] [address], [place] [address] Feb, [facility] [address] [id number] [address] [place] [address], [place] [address] Feb, [facility] [address] [id number] [address] [place] [address], [place] [address] Feb, [facility] [address] [id number] [address] [place] [address], [place] [address] Jan, [facility] [address] [id number] [address] [place] [address], [place] [address] Jan, [facility] [address] [id number] [address] [place] [address], [place] [address] Jan, [facility] [address] [id number] [address] [place] [address], [place] [address] Jan, [facility] [address] [id number] [address] [place] [address], [place] [address] 16 Jan, 2013 [facility] [address] [id number] [address] [place] [address], [place] [address] Dec, [facility] [address] [id number] [address] [place] [address], [place] [address] Dec, [facility] [address] [id number] [address] [place] [address], [place] [address] Dec, [facility] [address] [id number] [address] [place] [address], [place] [address] November, [facility] [address] [id number] [address] [place] [address], [place] [address] November, [facility] [address] [id number] [address] [place] [address], [place] [address] November, [facility] [address] [id number] [address] [place] [address], [place] [address] Oct, [facility] [address] [id number] [address] [place] [address], [place] [address] Oct, [facility] [address] [id number] [address] [place] [address], [place] [address] Oct, [facility] [address] [id number] [address] [place] [address], [place] [id number] Oct, [facility] [address] [id number] [address] [place] [address], [place] [address] 18 Oct, 2012 [facility] [address] [id number] [address] [place] [address], [place] [address] 17 Oct, 2012 [facility] [address] [id number] [address] [place] [address], [place] [address] 15 Oct, 2012 [facility] [address] [id number] [address] [place] [address], [place] [address] 26 Sep, 2012 [facility] [address] [id number] [address] [place] [address], [place] [address] Sep, [facility] [address] [id number] [address] [place] [address], [place] [address] Sep, [facility] [address] [id number] [address] [place] [address], [place] [address] Sep, [facility] [address] [id number] [address] [place] [address], [place] [address] Aug, [facility] [address] [id number] [address] [place] [address], [place] [address] Aug, [facility] [address] [id number] [address] [place] [address], [place] [address] Aug, [facility] [address] [id number] [address] [place] [address], [place] [address] Aug, [facility] [address] [id number] [address] [place] [address], [place] [address] Aug, [facility] [address] [id number] [address] [place] [address], [place] [address] Aug, [facility] [address] [id number] [address] [place] [address], [place] [address] Jul, [facility] [address] [id number] [address] [place] [address], [place] [address] Jul, [facility] [address] [id number] [address] [place] [address], [place] [address] Jul, [facility] [address] [id number] [address] [place] [address], [place] [address] Jul, [facility] [address] [id number] [address] [place] [address], [place] [address] Jul, [facility] [address] [id number] [address] [place] [address], [place] [address] Jul, [facility] [address] [id number] [address] [place] [address], [place] [address] Jun, [facility] [address] [id number] [address] [place] [address], [place] [address] Jun, [facility] [address] [id number] [address] [place] [address], [place] [address] Jun, [facility] [address] [id number] [address] [place] [address], [place] [address] Jun, [facility] [address] [id number] [address] [place] [address], [place] [address] Jun, [facility] [address] [id number] [address] [place] [address], [place] [address] Jun, [facility] [address] [id number] [address] [place] [address], [place] [address] May, [facility] [address] [id number] [address] [place] [address], [place] [address] May, [facility] [address] [id number] [address] [place] [address], [place] [address] May, [facility] [address] [id number] [address] [place] [address], [place] [address] May, [facility] [address] [id number] [address] [place] [address], [place] [address] May, [facility] [address] [id number] [address] [place] [address], [place] [address] May, [facility] [address] [id number] [address] [place] [address], [place] [address] May, [facility] [address] [id number] [address] [place] [address], [place] [address] May, [facility] [address] [id number] [address] [place] [address], [place] [address] May, [facility] [address] [id number] [address] [place] [address], [place] [address] May, [facility] [address] [id number] [address] [place] [address], [place] [address] Apr, [facility] [address] [id number] [address] [place] [address], [place] [address] 31 Apr, 2012 [facility] [address] [id number] [address] [place] [address], [place] [address] 23 Apr, 2012 [facility] [address] [id number] [address] [place] [address], [place] [address] 23 Apr, 2012 [facility] [address] [id number] [address] [place] [address], [place] [address] 16 Apr, 2012 [facility] [address] [id number] [address] [place] [address], [place] [address] 16 Apr, 2012 [facility] [address] [id number] [address] [place] [address], [place] [address] 15 Apr, 2012 [facility] [address] [id number] [address] [place] [address], [place] [address] 15 Apr, 2012 [facility] [address] [id number] [address] [place] [address], [place] [address] 05 Apr, 2012 [facility] [address] [id number] [address] [place] [address], [place] [address] 28 Mar, 2012 [facility] [address] [id number] [address] [place] [address], [place] [address] 26 Mar, 2012 [facility] [address] [id number] [address] [place] [address], [place] [address] 25 Sep2011 [facility] [address] [id number] [address] [place] [address], [place] [address] 19 Sep, 2011 [facility] [address] [id number] [address] [place] [address], [place] [address] 18 Sep2011 [facility] [address] [id number] [address] [place] [address], [place] [address] 05 Mar, 2012 [facility] [address] [id number] [address] [place] [address], [place] [address] 28 Feb, 2012 [facility] [address] [id number] [address] [place] [address], [place] [address] Feb, [facility] [address] [id number] [address] [place] [address], [place] [address] Feb, [facility] [address] [id number] [address] [place] [address], [place] [address] Jan, [facility] [address] [id number] [address] [place] [address], [place] [address] Jan, [facility] [address] [id number] [address] [place] [address], [place] [address] Jan, [facility] [address] [id number] [address] [place] [address], [place] [address] Jan, [facility] [address] [id number] [address] [place] [address], [place] [address] Dec, [facility] [address] [id number] [address] [place] [address], [place] [address] November, [facility] [address] [id number] [address] [place] [address], [place] [address] November, [facility] [address] [id number] [address] [place] [address], [place] [address] November, [facility] [address] [id number] [address] [place] [address], [place] [address] November, [facility] [address] [id number] [address] [place] [address], [place] [address] November, [facility] [address] [id number] [address] [place] [address], [place] [address] November, [facility] [address] [id number] [address] [place] [address], [place] [address] Oct, [facility] [address] [id number] [address] [place] [address], [place] [address] Oct, [facility] [address] [id number] [address] [place] [address], [place] [address] Sep, [facility] [address] [id number] [address] [place] [address], [place] [address] Sep, [facility] [address] [id number] [address] [place] [address], [place] [address] Sep, [facility] [address] [id number] [address] [place] [address], [place] [address] Aug, [facility] [address] [id number] [address] [place] [address], [place] [address] Aug, [facility] [address] [id number] [address] [place] [address], [place] [address] Aug, [facility] [address] [id number] [address] [place] [address], [place] [address] Aug, [facility] [address] [id number] [address] [place] [address], [place] [address] Aug, [facility] [address] [id number] [address] [place] [address], [place] [address] Aug, [facility] [address] [id number] [address] [place] [address], [place] [address] Jul, [facility] [address] [id number] [address] [place] [address], [place] [address] Jul, [facility] [address] [id number] [address] [place] [address], [place] [address] Jul, [facility] [address] [id number] [address] [place] [address], [place] [address] Jul, [facility] [address] [id number] [address] [place] [address], [place] [address] Jul, [facility] [address] [id number] [address] [place] [address], [place] [address] Jul, [facility] [address] [id number] [address] [place] [address], [place] [address] Jul, [facility] [address] [id number] [address] [place] [address] [address] Jul, [facility] [address] [id number] [address] [place] [address], [place] [address] Jul, [facility] [address] [id number] [address] [place] [address], [place] [address] Jul, [facility] [address] [id number] [address] [place] [address], [place] [address] Jun, [facility] [address] [id number] [address] [place] [address], [place] [address] Jun, [facility] [address] [id number] [address] [place] [address], [place] [address] Jun, [facility] [address] [id number] [address] [place] [address], [place] [address] Jun, [facility] [address] [id number] [address] [place] [address], [place] [address] May, [facility] [address] [id number] [address] [place] [address], [place] [address] May, [facility] [address] [id number] [address] [place] [address], [place] [address] May, [facility] [address] [id number] [address] [place] [address], [place] [address] May, [facility] [address] [id number] [address] [place] [address], [place] [address] Apr, [facility] [address] [id number] [address] [place] [id number] Apr, [facility] [address] [id number] [address] [place] [address], [place] [address] November, [facility] [address] [id number] [address] [place] [address], [place] [address] Oct, [facility] [address] [id number] [address] [place] [address], [place] [address] Aug, [facility] [address] [id number] [address] [place] [address], [place] [address] 28 Jun, 2010 [facility] [address] [id number] [address] [place] [address], [place] [address] 28 Jun, 2010 [facility] [address] [id number] [address] [place] [address], [place] [address] 27 Jun, 2010 [facility] [address] [id number] [address] [place] [address], [place] [address] 03 Jun, 2010 [facility] [address] [id number] [address] [place] [address], [place] [address] 29 May, 2010 [facility] [address] [id number] [address] [place] [address], [place] [address] 27 Apr, 2010 [facility] [address] [id number] [address] [place] [address], [place] [address] 13 Oct, 2009 [facility] [address] [id number] [address] [place] [address], [place] [address] 13 Aug, 2009 [facility] [address] [id number] [address] [place] [address], [place] [address] 20 Jul, 2009 [facility] [address] [id number] [address] [place] [address], [place] [address] 22 Jun, 2009 [facility] [address] [id number] [address] [place] [address], [place] [address] 16 Jun, 2009 [facility] [address] [id number] [address] [place] [address], [place] [address] 14 Jun, 2009 [facility] [address] [id number] [address] [place] [address], [place] [address] 14 Jun, 2009 [facility] [address] [id number] [address] [place] [address], [place] [address] 09 May, 2009 [facility] [address] [id number] [address] [place] [address], [place] [address] 20 Apr, 2009 [facility] [address] [id number] [address] [place] [address], [place] [address] 15 Mar, 2009 [facility] [address] [facility] [id number] [address] [place] [address] 14 Mar, 2009 [facility] [address] [facility] [id number] [address] [place] [id number] 11 Dec, 2008 IMMUNIZATIONS No Known Immunizations SOCIAL HISTORY Never Assessed REASON FOR VISIT PA stehp [facility] PLAN OF CARE VITAL SIGNS MEDICATIONS Medication Instructions Dosage Frequency Start Date End Date Duration S campbell Questran 4 GM Orally Twice a day 1 packet mixed with water or non-carbonated drink 12h 11 Jul, 2017 30 day(s) Active RESULTS No Results PROCEDURES [...]
--- OUTSIDE RECORDS SUMMARY | 2019-09-01 05:24 | XMS REPORT ---
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 [address], [place] [address] Apr, [facility] [address] [id number] [address] [place] [address], [place] [address] Apr, [facility] [address] [id number] [address] [place] [address], [place] [address] Apr, [facility] [address] [id number] [address] [place] [address], [place] [address] Apr, [facility] [address] [id number] [address] [place] [address], [place] [address] Apr, [facility] [address] [id number] [address] [place] [address], [place] [address] Apr, [facility] [address] [id number] [address] [place] [address], [place] [address] Apr, [facility] [address] [id number] [address] [place] [address], [place] [address] Apr, [facility] [address] [id number] [address] [place] [address], [place] [address] Mar, 2013 [facility] [address] [id number] [address] [place] [address], [place] [address] Mar, 2013 [facility] [address] [id number] [address] [place] [address], [place] [address] Mar, 2013 [facility] [address] [id number] [address] [place] [address], [place] [address] Mar, 2013 [facility] [address] [id number] [address] [place] [address], [place] [address] Mar, 2013 [facility] [address] [id number] [address] [place] [address], [place] [address] Mar, 2013 [facility] [address] [id number] [address] [place] [address], [place] [address] Mar, 2013 [facility] [address] [id number] [address] [place] [address], [place] [address] Mar, 2013 [facility] [address] [id number] [address] [place] [address], [place] [address] Mar, 2013 [facility] [address] [id number] [address] [place] [address], [place] [address] Mar, 2013 [facility] [address] [id number] [address] [place] [address], [place] [address] Mar, 2013 [facility] [address] [id number] [address] [place] [address], [place] [address] Mar, 2013 [facility] [address] [id number] [address] [place] [address], [place] [address] Feb, [facility] [address] [id number] [address] [place] [address], [place] [address] Feb, [facility] [address] [id number] [address] [place] [address], [place] [address] Jan, [facility] [address] [id number] [facility] [place] [address] Jan, [facility] [address] [id number] [address] [place] [address], [place] [address] Jan, [facility] [address] [id number] [address] [place] [address], [place] [address] Jan, [facility] [address] [id number] [address] [place] [address], [place] [address] Dec, [facility] [address] [id number] [address] [place] [address], [place] [address] Dec, [facility] [address] [id number] [address] [place] [address], [place] [address] Dec, [facility] [address] [id number] [address] [place] [address], [place] [address] Dec, [facility] [address] [id number] [address] [place] [address], [place] [address] Dec, [facility] [address] [id number] [address] [place] [address], [place] [address] Dec, [facility] [address] [id number] [address] [place] [address], [place] [address] November, [facility] [address] [id number] [address] [place] [address], [place] [address] November, [facility] [address] [id number] [address] [place] [address], [place] [address] November, [facility] [address] [id number] [address] [place] [address], [place] [address] November, [facility] [address] [id number] [address] [place] [address], [place] [address] November, [facility] [address] [id number] [address] [place] [address], [place] [address] November, [facility] [address] [place] [id number] November, [facility] [address] [id number] [address] [place] [address], [place] [address] November, [facility] [address] [id number] [address] [place] [address], [place] [address] November, [facility] [address] [id number] [address] [place] [address], [place] [address] November, [facility] [address] [id number] [address] [place] [address], [place] [address] November, [facility] [address] [id number] [address] [place] [address], [place] [address] November, [facility] [address] [id number] [address] [place] [address], [place] [address] Oct, [facility] [address] [id number] [address] [place] [address], [place] [address] Oct, [facility] [address] [id number] [address] [place] [address], [place] [address] Oct, [facility] [address] [id number] [address] [place] [address], [place] [address] Oct, [facility] [address] [id number] [address] [place] [address], [place] [address] Oct, [facility] [address] [id number] [address] [place] [address], [place] [address] Oct, [facility] [address] [id number] [address] [place] [address], [place] [address] Oct, [facility] [address] [id number] [address] [place] [address], [place] [address] Oct, [facility] [address] [id number] [address] [place] [address], [place] [address] Oct, [facility] [address] [id number] [address] [place] [address], [place] [address] Oct, [facility] [address] [id number] [facility] [place] [address] Oct, [facility] [address] [id number] [address] [place] [address], [place] [address] Oct, [facility] [address] [id number] [address] [place] [address], [place] [address] Oct, [facility] [address] [id number] [address] [place] [address], [place] [address] Oct, [facility] [address] [id number] [address] [place] [address], [place] [address] Oct, [facility] [address] [id number] [address] [place] [address], [place] [address] Sep, [facility] [address] [id number] [address] [place] [address], [place] [address] Sep, [facility] [address] [id number] [address] [place] [address], [place] [address] Sep, [facility] [address] [id number] [address] [place] [address], [place] [address] Sep, [facility] [address] [id number] [address] [place] [address], [place] [address] Aug, [facility] [address] [id number] [address] [place] [address], [place] [address] Aug, [facility] [address] [id number] [address] [place] [address], [place] [address] Aug, [facility] [address] [id number] [address] [place] [address], [place] [address] Aug, [facility] [address] [id number] [address] [place] [address], [place] [address] Jul, [facility] [address] [id number] [address] [place] [address], [place] [address] Jul, [facility] [address] [id number] [address] [place] [address], [place] [address] Jul, [facility] [address] [id number] [address] [place] [address], [place] [address] Jul, [facility] [address] [id number] [address] [place] [address], [place] [address] Jul, [facility] [address] [id number] [address] [place] [address], [place] [address] Jul, [facility] [address] [id number] [address] [place] [address], [place] [address] Jul, [facility] [address] [id number] [address] [place] [address], [place] [address] Jul, [facility] [address] [id number] [address] [place] [address], [place] [address] Jul, [facility] [address] [id number] [address] [place] [address], [place] [address] Jul, [facility] [address] [id number] [address] [place] [address], [place] [address] Jul, [facility] [address] [id number] [address] [place] [address], [place] [address] Jul, [facility] [address] [id number] [address] [place] [address], [place] [address] Jul, [facility] [address] [id number] [address] [place] [address], [place] [address] Jul, [facility] [address] [id number] [address] [place] [address], [place] [address] Jun, [facility] [address] [id number] [address] [place] [address], [place] [address] Jun, [facility] [address] [id number] [address] [place] [address], [place] [address] Jun, [facility] [address] [id number] [address] [place] [address], [place] [address] Jun, [facility] [address] [id number] [address] [place] [address], [place] [address] May, [facility] [address] [id number] [address] [place] [address], [place] [address] May, [facility] [address] [id number] [address] [place] [address], [place] [address] May, [facility] [address] [id number] [address] [place] [address], [place] [address] May, [facility] [address] [id number] [address] [place] [address], [place] [address] May, [facility] [address] [id number] [address] [place] [address], [place] [address] May, [facility] [address] [id number] [address] [place] [address], [place] [address] May, [facility] [address] [id number] [address] [place] [address], [place] [address] May, [facility] [address] [id number] [address] [place] [address], [place] [address] Apr, [facility] [address] [id number] [address] [place] [address], [place] [address] Apr, [facility] [address] [id number] [address] [place] [address], [place] [address] Apr, [facility] [address] [id number] [address] [place] [address], [place] [address] Apr, [facility] [address] [id number] [address] [place] [address], [place] [address] Apr, [facility] [address] [id number] [address] [place] [address], [place] [address] Apr, [facility] [address] [id number] [address] [place] [address], [place] [address] Mar, [facility] [address] [id number] [address] [place] [address], [place] [address] Mar, 2013 [facility] [address] [id number] [address] [place] [address], [place] [address] 20 Mar, 2013 [facility] [address] [id number] [address] [place] [address], [place] [id number] 17 Mar, 2013 [facility] [address] [id number] [address] [place] [address], [place] [address] 16 Mar, 2013 [facility] [address] [id number] [address] [place] [address], [place] [address] 05 Mar, 2013 [facility] [address] [id number] [address] [place] [address], [place] [address] Feb, [facility] [address] [id number] [address] [place] [address], [place] [address] Feb, [facility] [address] [id number] [address] [place] [address], [place] [address] Feb, [facility] [address] [id number] [address] [place] [address], [place] [address] Feb, [facility] [address] [id number] [address] [place] [address], [place] [address] Jan, [facility] [address] [id number] [address] [place] [address], [place] [address] Jan, [facility] [address] [id number] [address] [place] [address], [place] [address] Jan, [facility] [address] [id number] [address] [place] [address], [place] [address] Jan, [facility] [address] [id number] [address] [place] [address], [place] [address] Jan, [facility] [address] [id number] [address] [place] [address], [place] [address] Dec, [facility] [address] [id number] [address] [place] [address], [place] [address] Dec, [facility] [address] [id number] [address] [place] [address], [place] [address] Dec, [facility] [place] [address] [id number] [address] [place] [address], [place] [address] November, [facility] [address] [id number] [address] [place] [address], [place] [address] November, [facility] [address] [id number] [address] [place] [address], [place] [address] November, [facility] [place] [address] [id number] [address] [place] [address], [place] [address] Oct, [facility] [address] [id number] [address] [place] [address], [place] [address] Oct, [facility] [address] [id number] [address] [place] [address], [place] [address] Oct, [facility] [address] [id number] [address] [place] [address], [place] [address] Oct, [facility] [address] [id number] [address] [place] [address], [place] [address] Oct, [facility] [facility] [place] [address] [id number] [address] [place] [address], [place] [address] Oct, [facility] [address] [id number] [address] [place] [address], [place] [address] Oct, [facility] [address] [id number] [address] [place] [address], [place] [address] Sep, [facility] [address] [id number] [address] [place] [address], [place] [address] Sep, [facility] [address] [id number] [address] [place] [address], [place] [address] Sep, [facility] [address] [id number] [address] [place] [address], [place] [address] Sep, [facility] [address] [id number] [address] [place] [address], [place] [address] Aug, [facility] [place] [address] [id number] [address] [place] [address], [place] [address] Aug, [facility] [address] [id number] [address] [place] [address], [place] [address] Aug, [facility] [address] [id number] [address] [place] [address], [place] [address] Aug, [facility] [address] [id number] [address] [place] [address], [place] [address] Aug, [facility] [address] [id number] [address] [place] [address], [place] [address] Aug, [facility] [address] [id number] [address] [place] [address], [place] [address] Jul, [facility] [address] [id number] [address] [place] [address], [place] [address] Jul, [facility] [address] [id number] [address] [place] [address], [place] [address] Jul, [facility] [address] [id number] [address] [place] [address], [place] [address] Jul, [facility] [address] [id number] [address] [place] [address], [place] [address] Jul, [facility] [place] [address] [id number] [address] [place] [address], [place] [address] Jul, [facility] [address] [id number] [address] [place] [address], [place] [address] Jun, [facility] [address] [id number] [address] [place] [address], [place] [address] Jun, [facility] [address] [id number] [address] [place] [address], [place] [address] Jun, [facility] [address] [id number] [address] [place] [address], [place] [address] Jun, [facility] [address] [id number] [address] [place] [address], [place] [address] 05 Jun, 2012 [facility] [address] [id number] [address] [place] [address], [place] [address] Jun, [facility] [address] [id number] [address] [place] [address], [place] [address] May, [facility] [address] [id number] [address] [place] [address], [place] [address] May, [facility] [address] [id number] [address] [place] [address], [place] [address] May, [facility] [address] [id number] [address] [place] [address], [place] [address] May, [facility] [address] [id number] [address] [place] [address], [place] [address] May, [facility] [address] [id number] [address] [place] [address], [place] [address] May, [facility] [address] [id number] [address] [place] [address], [place] [address] May, [facility] [address] [id number] [address] [place] [address], [place] [address] May, [facility] [address] [id number] [address] [place] [address], [place] [address] May, [facility] [address] [id number] [address] [place] [address], [place] [address] May, [facility] [address] [id number] [address] [place] [address], [place] [address] Apr, [facility] [address] [id number] [address] [place] [address], [place] [address] Apr, [facility] [address] [id number] [address] [place] [address], [place] [address] Apr, [facility] [address] [id number] [address] [place] [address], [place] [address] Apr, [facility] [address] [id number] [address] [place] [address], [place] [address] 16 Apr, 2012 [facility] [address] [id number] [address] [place] [address], [place] [address] 16 Apr, 2012 [facility] [address] [id number] [address] [place] [address], [place] [address] 15 Apr, 2012 [facility] [address] [id number] [address] [place] [address], [place] [address] 15 Apr, 2012 [facility] [address] [id number] [address] [place] [address], [place] [address] 05 Apr, 2012 [facility] [address] [id number] [address] [place] [address], [place] [address] 28 Mar, 2012 [facility] [address] [id number] [address] [place] [address], [place] [address] 26 Mar, 2012 [facility] [address] [id number] [address] [place] [address], [place] [address] 25 Mar, 2012 [facility] [address] [id number] [address] [place] [address], [place] [address] 19 Mar, 2012 [facility] [address] [id number] [address] [place] [address], [place] [address] 18 Mar, 2012 [facility] [address] [id number] [address] [place] [address], [place] [address] 05 Mar, 2012 [facility] [address] [id number] [address] [place] [address], [place] [address] 28 Feb, 2012 [facility] [address] [id number] [address] [place] [address], [place] [address] Feb, [facility] [address] [id number] [address] [place] [address], [place] [address] Feb, [facility] [address] [id number] [address] [place] [address], [place] [address] Jan, [facility] [address] [id number] [address] [place] [address], [place] [address] Jan, [facility] [address] [id number] [address] [place] [address], [place] [address] Jan, [facility] [address] [id number] [address] [place] [address], [place] [address] Jan, [facility] [address] [id number] [address] [place] [address], [place] [address] Dec, [facility] [address] [id number] [address] [place] [address], [place] [address] November, [facility] [address] [id number] [address] [place] [address], [place] [address] November, [facility] [address] [id number] [address] [place] [address], [place] [address] November, [facility] [address] [id number] [address] [place] [address], [place] [address] November, [facility] [address] [id number] [address] [place] [address], [place] [address] November, [facility] [address] [id number] [address] [place] [address], [place] [address] November, [facility] [address] [id number] [address] [place] [address], [place] [address] Oct, [facility] [address] [id number] [address] [place] [address], [place] [address] Oct, [facility] [address] [id number] [address] [place] [address], [place] [address] Sep, [facility] [address] [id number] [address] [place] [address], [place] [address] Sep, [facility] [address] [id number] [address] [place] [address], [place] [address] Sep, [facility] [address] [id number] [address] [place] [address], [place] [address] Aug, [facility] [address] [id number] [address] [place] [address], [place] [address] 29 Aug, 2011 [facility] [address] [id number] [address] [place] [address], [place] [address] 14 Aug, 2011 [facility] [address] [id number] [address] [place] [address], [place] [address] 09 Aug, 2011 [facility] [address] [id number] [address] [place] [address], [place] [address] 02 Aug, 2011 [facility] [address] [id number] [address] [place] [address], [place] [address] Aug, [facility] [address] [id number] [address] [place] [address], [place] [address] Jul, [facility] [address] [id number] [address] [place] [address], [place] [address] Jul, [facility] [place] [address] [id number] [address] [place] [address], [place] [address] Jul, [facility] [place] [address] [id number] [address] [place] [address], [place] [address] Jul, [facility] [place] [address] [id number] [address] [place] [address], [place] [address] Jul, [facility] [address] [id number] [address] [place] [address], [place] [address] Jul, [facility] [place] [address] [id number] [address] [place] [address], [place] [address] 17 Jul, 2011 [facility] [address] [id number] [address] [place] [address], [place] [address] 12 Jul, 2011 [facility] [address] [id number] [address] [place] [address], [place] [address] 10 Jul, 2011 [facility] [address] [id number] [address] [place] [address], [place] [address] 03 Jul, 2011 [facility] [address] [id number] [address] [place] [address], [place] [address] Jun, [facility] [address] [id number] [address] [place] [address], [place] [address] Jun, [facility] [address] [id number] [address] [place] [address], [place] [address] Jun, [facility] [address] [id number] [address] [place] [address], [place] [address] Jun, [facility] [address] [id number] [address] [place] [address], [place] [address] May, [facility] [address] [id number] [address] [place] [address], [place] [address] May, [facility] [address] [id number] [address] [place] [address], [place] [address] May, [facility] [address] [id number] [address] [place] [address], [place] [address] May, [facility] [address] [id number] [address] [place] [address], [place] [address] Apr, [facility] [address] [id number] [address] [place] [address], [place] [address] Apr, [facility] [address] [id number] [address] [place] [address], [place] [address] November, [facility] [address] [id number] [address] [place] [address], [place] [address] Oct, [facility] [address] [id number] [address] [place] [address], [place] [address] Aug, [facility] [address] [id number] [address] [place] [address], [place] [address] Jun, [facility] [address] [id number] [address] [place] [address], [place] [address] Jun, [facility] [address] [id number] [address] [place] [address], [place] [address] Jun, [facility] [address] [id number] [address] [place] [id number] 03 Jun, 2010 [facility] [address] [id number] [address] [place] [id number] 29 May, 2010 [facility] [address] [id number] [address] [place] [id number] 27 Apr, 2010 [facility] [address] [id number] [address] [place] [id number] 13 Oct, 2009 [facility] [address] [id number] [address] [place] [id number] 13 Aug, 2009 [facility] [address] [id number] [address] [place] [id number] 20 Jul, 2009 [facility] [address] [id number] [address] [place] [id number] 22 Jun, 2009 [facility] [address] [id number] [address] [place] [id number] 16 Jun, 2009 [facility] [address] [id number] [address] [place] [id number] 14 Jun, 2009 [facility] [address] [id number] [address] [place] [id number] 14 Jun, 2009 [facility] [address] [id number] [address] [place] [id number] 09 May, 2009 [facility] [address] [id number] [address] [place] [id number] 20 Apr, 2009 [facility] [address] [id number] [address] [place] [id number] 15 Mar, 2009 [facility] [address] [id number] [address] [place] [id number] 14 Mar, 2009 [facility] [address] [id number] [address] [place] [id number] 11 Dec, 2008 IMMUNIZATIONS No Known Immunizations SOCIAL HISTORY Never Assessed REASON FOR VISIT Horn removal from nose--ABoggsLPN PLAN OF CARE Activity Details Follow Up prn Reason: VITAL SIGNS Height 66.0 in 2017-01-26 Weight 203.5 lbs 2017-01-26 Temperature 97.8 degrees Fahrenheit 2017-01-26 Heart Rate 88 bpm 2017-01-26 Respiratory Rate 18 2017-01-26 BMI 32.84 kg/m2 2017-01-26 Blood pressure systolic 106 mmHg 2017-01-26 Blood pressure diastolic 74 mmHg 2017-01-26 MEDICATIONS Medication Instructions Dosage Frequency Start Date End Date Duration S tatus Symbicort 160-4.5 MCG/ACT INHALE TWO PUFFS BY MOUTH TWICE DAILY 30 Active Clonazepam 0.5 MG Orally daily. MAX 60/month take 1-2 tabs daily up to twice a day prn anxiety Active Meloxicam 15 MG Orally Once a day 1 tablet as needed 24h 90 days Active Lisinopril-Hydrochlorothiazide 20-25 MG Orally Once a day 1 tablet 24h Jul, 90 days Active ProAir HFA 108 (90 Base) MCG/ACT Inhalation every 6 hrs 2 puffs as ne eded 6h 30 days Active Neurontin 100 MG Orally Once a day at bedtime 1 capsule Oct, Active Tramadol HCl 50 mg Orally 3 times a day 1 tablet 8h Jun, 28 days Active Abilify 5 MG TAKE ONE TABLET BY MOUTH DAILY Active Loratadine 10 MG TAKE ONE TABLET BY MOUTH AT BEDTIME FOR ALLERGI ES 30 Active Pantoprazole Sodium 40 MG TAKE ONE TABLET BY MOUTH DAILY 90 Active Nicoderm CQ 21 MG/24HR Transdermal Once a day 1 patch to skin 24h Jun, 30 days Active Albuterol Sulfate (2.5 MG/3ML) 0.083% Inhalation 4 times a day as N eeded 3 ml Active Duloxetine HCl 60 MG TAKE ONE CAPSULE BY MOUTH ONCE DAILY 30 Active Triamcinolone Acetonide 0.5 % Externally Twice a day 1 appli cation to affected area 12h Jul, 10 days Active Misc. Devices N/A Nebulizer machine May, Active Amitriptyline HCl 25 MG TAKE ONE TABLET BY MOUTH AT BEDTIME Active Lancets 2 times per day Mar, Act ariella Metformin HCl 500 MG Orally Twice a day 1 tablet with meals 12h 60 Active RESULTS No Results PROCEDURES Procedure Date Ordered Result Body Site SHAVE SKIN LESION <0.5 cm FACE 2017-01-26 N/A [facility] VISIT ESTABLISHED PATIENT January 26, 2017 INSTRUCTIONS MEDICATIONS ADMINISTERED No Known Medications MEDICAL [...]
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
--- OUTSIDE RECORDS SUMMARY | 2019-09-01 05:25 | XMS REPORT ---
Author Author Olivia BARILLAS Organization [employer] Address Unknown Phone Unavailable Care Team Providers Care Quality Assurance Engineer Name Role Phone TYRELL BARILLAS CP Unavailable Allergies No Known Allergies Problems Problem Type Condition Code Onset Dates Condition Statu s Problem Abnormal weight gain 783.1 Active Problem Nondependent tobacco use disorder 305.1 Active Problem Other specified erythematous condition 695.89 Active Problem Other malaise and fatigue 780.79 Ac tive Problem Special screening examination, human papillomavirus [H PV] V73.81 Active Problem Posttraumatic stress disorder 309.81 Active Problem Special screening for malignant neoplasms, colon V76.5 1 Active Problem Other specified counseling V65.49 A ctive Problem Screening for malignant neoplasm of the cervix V76.2 Active Problem Special screening for osteoporosis V82.81 Active Problem Unspecified hereditary and idiopathic peripheral neuro keely 356.9 Active Problem Cervicalgia 723.1 Active Problem Bipolar I disorder, most rec ent episode (or current) mixed, severe, specified as with psychotic behavior 296.64 Act ariella Problem Bipolar I disorder, most rec ent episode (or current) mixed, in partial or unspecified remission 296.65 Active Problem Bipolar I disorder, most rec ent episode (or current) depressed, moderate 296.52 Active Problem Bipolar I disorder, most recent episode (or current) mixed, moderate 296.62 Active Problem Diabetes mellitus without me ntion of complication, type II or unspecified type, not stated as uncontrolled 250.00 Active Problem Raynaud's syndrome 443.0 Active Problem Pain in joint, pelvic region and thigh 719.45 Active Medications Medication Code System Code Instructions Start Date End Date Status Dosage tramadol NDC 0 50 mg October 04, 2014 1 Tablet by Oral route 3 times per day PRN Results No Known Results Summary Purpose [employer] Submission
--- OUTSIDE RECORDS SUMMARY | 2019-09-01 05:25 | XMS REPORT ---
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 Apr, [facility] [address] [id number] [address] [place] [address], [place] [address] 02 Apr, 2014 [facility] [address] [id number] [address] [place] [address], [place] [address] Apr, [facility] [address] [id number] [address] [place] [address], [place] [address] 29 Mar, 2013 [facility] [address] [id number] [address] [place] [address], [place] [address] 29 Mar, 2013 [facility] [address] [id number] [address] [place] [address], [place] [address] 29 Mar, 2013 [facility] [address] [id number] [address] [place] [address], [place] [address] 29 Mar, 2013 [facility] [address] [id number] [address] [place] [address], [place] [address] Mar, 2013 [facility] [address] [id number] [address] [place] [address], [place] [address] Mar, 2013 [facility] [address] [id number] [address] [place] [address], [place] [address] Mar, 2013 [facility] [address] [id number] [address] [place] [address], [place] [address] Mar, 2013 [facility] [address] [id number] [address] [place] [address], [place] [address] Mar, 2013 [facility] [address] [id number] [address] [place] [address], [place] [address] Mar, 2013 [facility] [address] [id number] [address] [place] [address], [place] [address] Mar, 2013 [facility] [address] [id number] [address] [place] [address], [place] [address] Mar, 2013 [facility] [address] [id number] [address] [place] [address], [place] [address] Feb, [facility] [address] [id number] [address] [place] [address], [place] [address] Feb, [facility] [address] [id number] [address] [place] [address], [place] [address] Jan, [facility] [address] [id number] [address] [place] [address], [place] [address] Jan, [facility] [address] [id number] [address] [place] [address], [place] [address] Jan, [facility] [address] [id number] [address] [place] [address], [place] [address] Jan, [facility] [address] [id number] [address] [place] [address], [place] [address] Dec, [facility] [address] [id number] [address] [place] [address], [place] [address] Dec, [facility] [address] [id number] [address] [place] [address], [place] [address] Dec, [facility] [address] [id number] [address] [place] [address], [place] [address] Dec, [facility] [address] [id number] [address] [place] [address], [place] [address] Dec, [facility] [address] [id number] [address] [place] [address], [place] [address] Dec, [facility] [address] [id number] [address] [place] [address], [place] [address] November, [facility] [address] [id number] [address] [place] [address], [place] [address] November, [facility] [address] [id number] [address] [place] [address], [place] [address] November, [facility] [address] [id number] [address] [place] [address], [place] [address] November, [facility] [address] [id number] [address] [place] [address], [place] [address] November, [facility] [address] [id number] [address] [place] [address], [place] [address] November, [facility] [address] [place] [id number] November, [facility] [address] [id number] [address] [place] [address], [place] [address] November, [facility] [address] [id number] [address] [place] [address], [place] [address] November, [facility] [address] [id number] [address] [place] [address], [place] [address] November, [facility] [address] [id number] [address] [place] [address], [place] [address] November, [facility] [address] [id number] [address] [place] [address], [place] [address] November, [facility] [address] [id number] [address] [place] [address], [place] [address] Oct, [facility] [address] [id number] [address] [place] [address], [place] [address] Oct, [facility] [address] [id number] [address] [place] [address], [place] [address] Oct, [facility] [address] [id number] [address] [place] [address], [place] [address] Oct, [facility] [address] [id number] [address] [place] [address], [place] [address] Oct, [facility] [address] [id number] [address] [place] [address], [place] [address] Oct, [facility] [address] [id number] [address] [place] [address], [place] [address] Oct, [facility] [address] [id number] [address] [place] [address], [place] [address] Oct, [facility] [address] [id number] [address] [place] [address], [place] [address] Oct, [facility] [address] [id number] [address] [place] [address], [place] [address] Oct, [facility] [address] [id number] [address] [place] [address], [place] [address] Oct, [facility] [address] [id number] [address] [place] [address], [place] [address] Oct, [facility] [address] [id number] [address] [place] [address], [place] [address] Oct, [facility] [address] [id number] [address] [place] [address], [place] [address] Oct, [facility] [address] [id number] [address] [place] [address], [place] [address] Oct, [facility] [address] [id number] [address] [place] [address], [place] [address] Sep, [facility] [address] [id number] [address] [place] [address], [place] [address] Sep, [facility] [address] [id number] [address] [place] [address], [place] [address] Sep, [facility] [address] [id number] [address] [place] [address], [place] [address] Sep, [facility] [address] [id number] [address] [place] [address], [place] [address] Aug, [facility] [address] [id number] [address] [place] [address], [place] [address] Aug, [facility] [address] [id number] [address] [place] [address], [place] [address] Aug, [facility] [address] [id number] [address] [place] [address], [place] [address] Aug, [facility] [address] [id number] [address] [place] [address], [place] [address] Jul, [facility] [address] [id number] [address] [place] [address], [place] [address] Jul, [facility] [address] [id number] [address] [place] [address], [place] [address] Jul, [facility] [address] [id number] [address] [place] [address], [place] [address] Jul, [facility] [address] [id number] [address] [place] [address], [place] [address] Jul, [facility] [address] [id number] [address] [place] [address], [place] [address] Jul, [facility] [address] [id number] [address] [place] [address], [place] [address] Jul, [facility] [address] [id number] [address] [place] [address], [place] [address] Jul, [facility] [address] [id number] [address] [place] [address], [place] [address] Jul, [facility] [address] [id number] [address] [place] [address], [place] [address] Jul, [facility] [address] [id number] [address] [place] [address], [place] [address] Jul, [facility] [address] [id number] [address] [place] [address], [place] [address] Jul, [facility] [address] [id number] [address] [place] [address], [place] [address] Jul, [facility] [address] [id number] [address] [place] [address], [place] [address] Jul, [facility] [address] [id number] [address] [place] [address], [place] [address] Jun, [facility] [address] [id number] [address] [place] [address], [place] [address] Jun, [facility] [address] [id number] [address] [place] [address], [place] [address] Jun, [facility] [address] [id number] [address] [place] [address] Jun, [facility] [address] [id number] [address] [place] [address], [place] [address] May, [facility] [address] [id number] [address] [place] [address], [place] [address] May, [facility] [address] [id number] [address] [place] [address], [place] [address] May, [facility] [address] [id number] [address] [place] [address] May, [facility] [address] [id number] [address] [place] [address], [place] [address] May, [facility] [address] [id number] [address] [place] [address], [place] [address] May, [facility] [address] [id number] [address] [place] [address], [place] [address] May, [facility] [address] [id number] [address] [place] [address] May, [facility] [address] [id number] [address] [place] [address], [place] [address] Apr, [facility] [address] [id number] [address] [place] [address], [place] [address] Apr, [facility] [address] [id number] [address] [place] [address] Apr, [facility] [address] [id number] [address] [place] [address] Apr, [facility] [address] [id number] [address] [place] [address], [place] [address] Apr, [facility] [address] [id number] [address] [place] [address] Apr, [facility] [address] [id number] [address] [place] [address], [place] [address] Mar, [facility] [address] [id number] [address] [place] [address], [place] [address] 26 Mar, 2013 [facility] [address] [id number] [address] [place] [address], [place] [address] 20 Mar, 2013 [facility] [address] [id number] [address] [place] [address], [place] [address] 17 Mar, 2013 [facility] [address] [id number] [address] [place] [address], [place] [address] 16 Mar, 2013 [facility] [address] [id number] [address] [place] [address], [place] [address] 05 Mar, 2013 [facility] [address] [id number] [address] [place] [address], [place] [address] Feb, [facility] [address] [id number] [address] [place] [address], [place] [address] Feb, [facility] [address] [id number] [address] [place] [address], [place] [address] Feb, [facility] [address] [id number] [address] [place] [address], [place] [address] Feb, [facility] [address] [id number] [address] [place] [address], [place] [address] Jan, [facility] [address] [id number] [address] [place] [address], [place] [address] Jan, [facility] [address] [id number] [address] [place] [address], [place] [address] Jan, [facility] [address] [id number] [address] [place] [address], [place] [address] Jan, [facility] [address] [id number] [address] [place] [address], [place] [address] Jan, [facility] [address] [id number] [address] [place] [address], [place] [address] Dec, [facility] [address] [id number] [address] [place] [address], [place] [address] Dec, [facility] [address] [id number] [address] [place] [address], [place] [address] Dec, [facility] [address] [id number] [address] [place] [address], [place] [address] November, [facility] [address] [id number] [address] [place] [address], [place] [address] November, [facility] [address] [id number] [address] [place] [address], [place] [address] November, [facility] [address] [address] [id number] [address] [place] [address], [place] [address] Oct, [facility] [address] [id number] [address] [place] [address], [place] [address] Oct, [facility] [address] [id number] [address] [place] [address], [place] [address] Oct, [facility] [address] [id number] [address] [place] [address], [place] [address] Oct, [facility] [address] [id number] [address] [place] [address], [place] [address] Oct, [facility] [address] [id number] [address] [place] [address], [place] [address] Oct, [facility] [address] [id number] [address] [place] [address], [place] [address] Oct, [facility] [address] [id number] [address] [place] [address], [place] [address] Sep, [facility] [address] [id number] [address] [place] [address], [place] [address] Sep, [facility] [address] [id number] [address] [place] [address], [place] [address] Sep, [facility] [address] [id number] [address] [place] [address], [place] [address] Sep, [facility] [address] [id number] [address] [place] [address] Aug, [facility] [address] [id number] [address] [place] [address], [place] [address] Aug, [facility] [address] [id number] [address] [place] [address], [place] [address] Aug, [facility] [address] [id number] [address] [place] [address], [place] [address] Aug, [facility] [address] [id number] [address] [place] [address], [place] [address] Aug, [facility] [address] [id number] [address] [place] [address], [place] [address] Aug, [facility] [address] [id number] [address] [place] [address], [place] [address] Jul, [facility] [address] [id number] [address] [place] [address], [place] [address] Jul, [facility] [address] [id number] [address] [place] [address], [place] [address] Jul, [facility] [address] [id number] [address] [place] [address], [place] [address] Jul, [facility] [address] [id number] [address] [place] [address], [place] [address] Jul, [facility] [address] [id number] [address] [place] [address], [place] [address] Jul, [facility] [address] [id number] [address] [place] [address], [place] [address] Jun, [facility] [address] [id number] [address] [place] [address], [place] [address] Jun, [facility] [address] [id number] [address] [place] [address], [place] [address] Jun, [facility] [address] [id number] [address] [place] [address], [place] [address] Jun, [facility] [address] [id number] [address] [place] [address], [place] [address] Jun, [facility] [address] [id number] [address] [place] [address], [place] [address] Jun, [facility] [address] [id number] [address] [place] [address], [place] [address] May, [facility] [address] [id number] [address] [place] [address], [place] [address] May, [facility] [address] [id number] [address] [place] [address], [place] [address] May, [facility] [address] [id number] [address] [place] [address], [place] [address] May, [facility] [address] [id number] [address] [place] [address], [place] [address] May, [facility] [address] [id number] [address] [place] [address], [place] [address] May, [facility] [address] [id number] [address] [place] [address], [place] [address] May, [facility] [address] [id number] [address] [place] [address], [place] [address] May, [facility] [address] [id number] [address] [place] [address], [place] [address] May, [facility] [address] [id number] [address] [place] [address], [place] [address] May, [facility] [address] [id number] [address] [place] [address], [place] [address] Apr, [facility] [address] [id number] [address] [place] [address], [place] [address] Apr, [facility] [address] [id number] [address] [place] [address], [place] [address] Apr, [facility] [address] [id number] [address] [place] [address] 23 Apr, 2012 [facility] [address] [id number] [address] [place] [address], [place] [address] 16 Apr, 2012 [facility] [address] [id number] [address] [place] [address], [place] [address] 16 Apr, 2012 [facility] [address] [id number] [address] [place] [address], [place] [address] 15 Apr, 2012 [facility] [address] [id number] [address] [place] [address], [place] [address] 15 Apr, 2012 [facility] [address] [id number] [address] [place] [address], [place] [address] 05 Apr, 2012 [facility] [address] [id number] [address] [place] [address], [place] [address] 28 Mar, 2012 [facility] [address] [id number] [address] [place] [address], [place] [address] 26 Mar, 2012 [facility] [address] [id number] [address] [place] [address], [place] [address] 25 Mar, 2012 [facility] [address] [id number] [address] [place] [address], [place] [address] 19 Mar, 2012 [facility] [address] [id number] [address] [place] [address], [place] [address] 18 Mar, 2012 [facility] [address] [id number] [address] [place] [address], [place] [address] 05 Mar, 2012 [facility] [address] [id number] [address] [place] [address], [place] [address] Feb, [facility] [address] [id number] [address] [place] [address], [place] [address] Feb, [facility] [address] [id number] [address] [place] [address], [place] [address] Feb, [facility] [address] [id number] [address] [place] [address], [place] [address] Jan, [facility] [address] [id number] [address] [place] [address], [place] [address] 31 Jan, 2012 [facility] [address] [id number] [address] [place] [address], [place] [address] Jan, [facility] [address] [id number] [address] [place] [address], [place] [address] Jan, [facility] [address] [id number] [address] [place] [address], [place] [address] Dec, [facility] [address] [id number] [address] [place] [address], [place] [address] November, [facility] [address] [id number] [address] [place] [address], [place] [address] November, [facility] [address] [id number] [address] [place] [address], [place] [address] November, [facility] [address] [id number] [address] [place] [address], [place] [address] November, [facility] [address] [id number] [address] [place] [address], [place] [address] November, [facility] [address] [id number] [address] [place] [address], [place] [address] November, [facility] [address] [id number] [address] [place] [address], [place] [address] Oct, [facility] [address] [id number] [address] [place] [address], [place] [address] Oct, [facility] [address] [id number] [address] [place] [address], [place] [address] Sep, [facility] [address] [id number] [address] [place] [address], [place] [address] Sep, [facility] [address] [id number] [address] [place] [address], [place] [address] Sep, [facility] [address] [id number] [address] [place] [address], [place] [address] Aug, [facility] [address] [id number] [address] [place] [address], [place] [address] Aug, [facility] [address] [id number] [address] [place] [address], [place] [address] 14 Aug, 2011 [facility] [address] [id number] [address] [place] [address], [place] [address] Aug, [facility] [address] [id number] [address] [place] [address], [place] [address] Aug, [facility] [address] [id number] [address] [place] [address], [place] [address] Aug, [facility] [address] [id number] [address] [place] [address], [place] [address] Jul, [facility] [address] [id number] [address] [place] [address], [place] [address] Jul, [facility] [address] [id number] [address] [place] [address], [place] [address] Jul, [facility] [address] [id number] [address] [place] [address], [place] [address] Jul, [facility] [address] [id number] [address] [place] [address], [place] [address] Jul, [facility] [address] [id number] [address] [place] [address], [place] [address] Jul, [facility] [address] [id number] [address] [place] [address], [place] [address] Jul, [facility] [address] [id number] [address] [place] [address], [place] [address] Jul, [facility] [address] [id number] [address] [place] [address], [place] [address] Jul, [facility] [address] [id number] [address] [place] [address], [place] [address] Jul, [facility] [address] [id number] [address] [place] [address], [place] [address] 28 Jun, 2011 [facility] [address] [id number] [address] [place] [address], [place] [address] Jun, [facility] [address] [id number] [address] [place] [address], [place] [address] Jun, [facility] [address] [id number] [address] [place] [address], [place] [address] Jun, [facility] [address] [id number] [address] [place] [address], [place] [address] 30 May, 2011 [facility] [address] [id number] [address] [place] [address], [place] [address] 29 May, 2011 [facility] [address] [id number] [address] [place] [address], [place] [address] May, [facility] [address] [id number] [address] [place] [address], [place] [address] May, [facility] [address] [id number] [address] [place] [address], [place] [address] Apr, [facility] [address] [id number] [address] [place] [address], [place] [address] Apr, [facility] [address] [id number] [address] [place] [address], [place] [address] November, [facility] [address] [id number] [address] [place] [address], [place] [address] Oct, [facility] [address] [id number] [address] [place] [address], [place] [address] Aug, [facility] [address] [id number] [address] [place] [address], [place] [address] Jun, [facility] [address] [id number] [address] [place] [address], [place] [address] Jun, [facility] [address] [id number] [address] [place] [address], [place] [address] Jun, [facility] [address] [id number] [address] [place] [address] 03 Jun, 2010 [facility] [address] [id number] [address] [place] [address] 29 May, 2010 [facility] [address] [id number] [address] [place] [address] 27 Apr, 2010 [facility] [address] [id number] [address] [place] [address] 13 Oct, 2009 [facility] [address] [id number] [address] [place] [address] 13 Aug, 2009 [facility] [address] [id number] [address] [place] [address] 20 Jul, 2009 [facility] [address] [id number] [address] [place] [address] 22 Jun, 2009 [facility] [address] [id number] [address] [place] [address] 16 Jun, 2009 [facility] [address] [id number] [address] [place] [address] 14 Jun, 2009 [facility] [address] [id number] [address] [place] [address] 14 Jun, 2009 [facility] [address] [id number] [address] [place] [address] 09 May, 2009 [facility] [address] [id number] [address] [place] [address] 20 Apr, 2009 [facility] [address] [id number] [address] [place] [address] 15 Mar, 2009 [facility] [address] [id number] [address] [place] [address] 14 Mar, 2009 [facility] [address] [id number] [address] [place] [address] 11 Dec, 2008 IMMUNIZATIONS No Known Immunizations SOCIAL HISTORY Never Assessed REASON FOR VISIT Requests return call PLAN OF CARE VITAL SIGNS MEDICATIONS Unknown [...]
--- OUTSIDE RECORDS SUMMARY | 2019-09-01 05:25 | XMS REPORT ---
Author Olivia Eason Organization [employer] Address Unknown Phone Unavailable Care Team Providers Care Snowboarding Instructor Name Role Phone TYRELL BARILLAS CP Unavailable [...] Other specified counseling V65.49 A ctive Medications Medication Code System Code Instructions Start Date End Date Status Dosage Nicoderm CQ [facility] [address]-34 14 MG/24HR Transdermal Once a da y Jun 14, 2015 Aug 13, 2015 1 patch to skin Results No Known Results Summary Purpose [employer] Submission
--- OUTSIDE RECORDS SUMMARY | 2019-09-01 05:25 | XMS REPORT ---
Author Olivia Eason Organization [employer] Address Unknown Phone Unavailable Care Team Providers Care Direct Sales Consultant Name Role Phone TYRELL BARILLAS CP Unavailable Allergies, Adverse Reactions, Alerts Substance Reaction Event Type N.K.D.A. 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 Active Problem Diabetes mellitus without me ntion of complication, type II or unspecified type, not stated as uncontrolled 250.00 Active Problem Raynaud's syndrome 443.0 Active Assessment COPD (chronic obstructive pulmonary dise ase) with acute bronchitis J44.0 Active Problem Fibromyalgia M79.7 Active Problem Schizoaffective [...] Instructions Start Date End Date Status Dosage Lyrica [facility] [address]-33 50 MG Orally Once a day at hs May 02, 2015 1 capsule Albuterol Sulfate [facility] [address]-35 (2.5 MG/3ML) 0 .083% Inhalation 4 times a day as Needed 3 ml Cymbalta [facility] 11427939070 60 MG TAKE ONE CA PSULE BY MOUTH DAILY conjugated estrogens ND 0 0.625 mg/gram November 22, 2012 1 g by Vaginal route 1 time per day use on external genitalia daily for 2 weeks then 3 times a week Clonazepam [facility] [address]-91 0.5 MG TAKE O NE TO TWO TABLETS BY MOUTH ONCE OR TWICE DAILY NEEDED FOR ANXIETY Lancets [facility] 0 Mar 28, 2013 2 times pe r day Amitriptyline HCl NDC 94746477282 25 MG TA KE ONE TABLET BY MOUTH AT BEDTIME Symbicort [facility] [address]-72 160-4.5 MCG/ACT Inhalation Twice a day 2 puffs Meloxicam ND 60239232168 15 MG TAKE ONE T ABLET BY MOUTH DAILY NEEDED Amlodipine Besylate ND 03030452486 5 MG TAKE ONE TABLET BY MOUTH DAILY Pantoprazole Sodium ND 46321933395 40 MG TAKE ONE TABLET BY MOUTH DAILY tramadol NDC 0 50 mg Rx to be filled on 05/16/15 October 04, 201 5 1 Tablet by Oral route 3 times per day PRN Abilify [facility] 86333944483 5 MG TAKE ONE TAB LET BY MOUTH DAILY Zithromax Z-Reji [facility] [address]-64 250 MG Orally Once a day May 24, 2015 May 29, 2015 2 tablets on the first day, then 1 tablet daily for 4 days Loratadine [facility] 96815365413 10 MG TAKE ONE TABLET BY MOUTH AT BEDTIME FOR ALLERGIES ProAir HFA [facility] 24088065017 108 (90 Base) MCG/ACT INHALE TWO PUFFS BY MOUTH EVERY 6 HOURS NEEDED FOR WHEEZING Metformin HCl [facility] [address]-66 500 MG Orally Twice a day 2 tablet with meals Sumatriptan Succinate [facility] 18449371757 100 MG TAKE ONE TABLET BY MOUTH ONCE DAILY NEEDED MAY REPEAT IN 2 HOURS IF HEADACHE RECURS Procedures Procedure Coding System Code Date Office Visit, Est Pt., Level 3 CPT-4 56602 N 2014 Vital Signs Date/Time: May 24, 2015 Temperature 97.9 F Weight 200 lbs Height 65 in BMI 33.28 Index Blood Pressure Diastolic 82 mmHg Blood Pressure Systolic 120 mmHg Cardiac Monitoring Heart Rate 88 bpm Results No Known Results Summary Purpose [employer] Submission
--- OUTSIDE RECORDS SUMMARY | 2019-09-01 05:25 | XMS REPORT ---
Author Author Olivia BARILLAS Organization [employer] Address Unknown Phone Unavailable Care Team Providers Care Travel Accommodation Inspector Name Role Phone TYRELL BARILLAS CP Unavailable Allergies No Known Allergies Problems Problem Type Condition ICD-9 Code Onset Dates Condition Statu s Problem [...] Instructions Start Date End Date Status Dosage Metformin HCl [facility] [address]-99 500 MG Orally Twice a day 2 tablet with meals Results No Known Results Summary Purpose [employer] Submission
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
--- OUTSIDE RECORDS SUMMARY | 2019-09-01 05:25 | XMS REPORT ---
Author Author Olivia BARILLAS Organization [employer] Address Unknown Phone Unavailable Care Team Providers Care Wet Process Miller Head Assistant Name Role Phone SHOSHANA BARILLAS CP Unavailable [...] Status Dosage tramadol NDC 0 50 mg RX to be filled on 03/21 [place] out of clinic October 04, 2014 1 Tablet by Oral rou te 3 times per day PRN Results No Known Results Summary Purpose [employer] Submission
--- OUTSIDE RECORDS SUMMARY | 2019-09-01 05:25 | XMS REPORT ---
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 Jun, [facility] [address] [id number] [address] [place] [address], [place] [address] Jun, [facility] [address] [id number] [address] [place] [address], [place] [address] Jun, [facility] [address] [id number] [address] [place] [address], [place] [address] Jun, [facility] [address] [id number] [address] [place] [address], [place] [address] Jun, [facility] [address] [id number] [address] [place] [address], [place] [address] May, [facility] [address] [id number] [address] [place] [address], [place] [address] May, [facility] [address] [id number] [address] [place] [address], [place] [address] May, [facility] [address] [id number] [address] [place] [address], [place] [address] May, [facility] [address] [id number] [address] [place] [address], [place] [address] Apr, [facility] [address] [id number] [address] [place] [address], [place] [address] Apr, [facility] [address] [id number] [address] [place] [address], [place] [address] Apr, [facility] [address] [id number] [address] [place] [address], [place] [address] Apr, [facility] [address] [id number] [address] [place] [address], [place] [address] Apr, [facility] [address] [id number] [address] [place] [address], [place] [address] Apr, [facility] [address] [id number] [address] [place] [address], [place] [address] Apr, [facility] [address] [id number] [address] [place] [address], [place] [address] Apr, [facility] [address] [id number] [address] [place] [address], [place] [address] Apr, [facility] [address] [id number] [address] [place] [address], [place] [address] Apr, [facility] [address] [id number] [address] [place] [address], [place] [address] 29 Mar, 2013 [facility] [address] [id number] [address] [place] [address], [place] [address] 29 Mar, 2013 [facility] [address] [id number] [address] [place] [address], [place] [address] 29 Mar, 2013 [facility] [address] [id number] [address] [place] [address], [place] [address] 29 Mar, 2013 [facility] [address] [id number] [address] [place] [address], [place] [address] 10 Mar, 2013 [facility] [address] [id number] [address] [place] [address], [place] [address] 10 Mar, 2013 [facility] [address] [id number] [address] [place] [id number] Mar, 2013 [facility] [address] [id number] [address] [place] [address], [place] [address] 04 Sep, 2013 [facility] [address] [id number] [address] [place] [address], [place] [address] Mar, 2013 [facility] [address] [id number] [address] [place] [address], [place] [address] Mar, 2013 [facility] [address] [id number] [address] [place] [address], [place] [address] Mar, [facility] [address] [id number] [address] [place] [address], [place] [address] Mar, [facility] [address] [id number] [address] [place] [address], [place] [address] Feb, [facility] [address] [id number] [address] [place] [address], [place] [address] Feb, [facility] [address] [id number] [address] [place] [address], [place] [address] Jan, [facility] [address] [id number] [address] [place] [address], [place] [address] Jan, [facility] [address] [id number] [address] [place] [address], [place] [address] Jan, [facility] [address] [id number] [address] [place] [address], [place] [address] Jan, [facility] [address] [id number] [address] [place] [address], [place] [address] Dec, [facility] [address] [id number] [address] [place] [address], [place] [address] Dec, [facility] [address] [id number] [address] [place] [address], [place] [address] Dec, [facility] [address] [id number] [address] [place] [address], [place] [address] Dec, [facility] [address] [id number] [address] [place] [address], [place] [address] Dec, [facility] [address] [id number] [address] [place] [address], [place] [address] Dec, [facility] [address] [id number] [address] [place] [address], [place] [address] November, [facility] [address] [id number] [address] [place] [address], [place] [address] November, [facility] [address] [id number] [address] [place] [address], [place] [address] November, [facility] [address] [id number] [address] [place] [address], [place] [address] November, [facility] [address] [id number] [address] [place] [address], [place] [address] November, [facility] [address] [id number] [address] [place] [address], [place] [address] November, [facility] [address] [facility] [id number] November, [facility] [address] [id number] [address] [place] [address], [place] [address] November, [facility] [address] [id number] [address] [place] [address], [place] [address] November, [facility] [address] [id number] [address] [place] [address], [place] [address] November, [facility] [address] [id number] [address] [place] [address], [place] [address] November, [facility] [address] [id number] [address] [place] [address], [place] [address] November, [facility] [address] [id number] [address] [place] [address], [place] [address] Oct, [facility] [address] [id number] [address] [place] [address], [place] [address] Oct, [facility] [address] [id number] [address] [place] [address], [place] [address] Oct, [facility] [address] [id number] [address] [place] [address], [place] [address] Oct, [facility] [address] [id number] [address] [place] [address], [place] [address] Oct, [facility] [address] [id number] [address] [place] [address], [place] [address] Oct, [facility] [address] [id number] [facility] [place] [address] Oct, [facility] [address] [id number] [address] [place] [address], [place] [address] Oct, [facility] [address] [id number] [address] [place] [address], [place] [address] Oct, [facility] [address] [id number] [address] [place] [address], [place] [address] Oct, [facility] [address] [id number] [address] [place] [address], [place] [address] Oct, [facility] [address] [id number] [address] [place] [address], [place] [address] Oct, [facility] [address] [id number] [address] [place] [address], [place] [address] Oct, [facility] [address] [id number] [address] [place] [address], [place] [address] Oct, [facility] [address] [id number] [address] [place] [address], [place] [address] Oct, [facility] [address] [id number] [address] [place] [address], [place] [address] Sep, [facility] [address] [id number] [address] [place] [address], [place] [address] Sep, [facility] [address] [id number] [address] [place] [address], [place] [address] Sep, [facility] [address] [id number] [address] [place] [address], [place] [address] Sep, [facility] [address] [id number] [address] [place] [address], [place] [address] Aug, [facility] [address] [id number] [address] [place] [address], [place] [address] Aug, [facility] [address] [id number] [address] [place] [address], [place] [address] Aug, [facility] [place] [address] [id number] [address] [place] [address], [place] [address] Aug, [facility] [address] [id number] [address] [place] [address], [place] [address] Jul, [facility] [address] [id number] [address] [place] [address], [place] [address] Jul, [facility] [address] [id number] [address] [place] [address], [place] [address] Jul, [facility] [address] [id number] [address] [place] [address], [place] [address] Jul, [facility] [address] [id number] [address] [place] [address], [place] [address] Jul, [facility] [address] [id number] [address] [place] [address], [place] [address] Jul, [facility] [address] [id number] [address] [place] [address], [place] [address] Jul, [facility] [address] [id number] [address] [place] [address], [place] [address] Jul, [facility] [address] [id number] [address] [place] [address], [place] [address] Jul, [facility] [address] [id number] [address] [place] [address], [place] [address] Jul, [facility] [address] [id number] [address] [place] [address], [place] [address] Jul, [facility] [address] [id number] [address] [place] [address], [place] [address] Jul, [facility] [address] [id number] [address] [place] [address], [place] [address] Jul, [facility] [address] [id number] [address] [place] [address], [place] [address] Jul, [facility] [address] [id number] [address] [place] [address], [place] [address] Jun, [facility] [address] [id number] [address] [place] [address], [place] [address] Jun, [facility] [address] [id number] [address] [place] [address], [place] [id number] Jun, [facility] [address] [id number] [address] [place] [address], [place] [address] Jun, [facility] [address] [id number] [address] [place] [address], [place] [address] May, [facility] [address] [id number] [address] [place] [address], [place] [address] May, [facility] [address] [id number] [address] [place] [address], [place] [address] May, [facility] [address] [id number] [address] [place] [phone] May, [facility] [address] [id number] [address] [place] [address], [place] [address] May, [facility] [address] [id number] [address] [place] [address] May, [facility] [place] [address] [id number] [address] [place] [phone] May, [facility] [address] [id number] [address] [place] [phone] May, [facility] [address] [id number] [address] [place] [address], [place] [address] Apr, [facility] [address] [id number] [address] [place] [phone] Apr, [facility] [address] [id number] [address] [place] [id number] Apr, [facility] [address] [id number] [address] [place] [phone] Apr, [facility] [address] [id number] [address] [place] [address], [place] [address] Apr, [facility] [address] [id number] [address] [place] [address], [place] [address] Apr, [facility] [address] [id number] [address] [place] [address], [place] [address] 30 Mar, 2013 [facility] [address] [id number] [address] [place] [address], [place] [address] 26 Mar, 2013 [facility] [address] [id number] [address] [place] [address], [place] [address] 20 Mar, 2013 [facility] [address] [id number] [address] [place] [address], [place] [address] 17 Mar, 2013 [facility] [address] [id number] [address] [place] [address], [place] [address] 16 Mar, 2013 [facility] [address] [id number] [address] [place] [address], [place] [address] 05 Mar, 2013 [facility] [address] [id number] [address] [place] [address], [place] [address] Feb, [facility] [address] [id number] [address] [place] [address], [place] [address] Feb, [facility] [address] [id number] [address] [place] [address], [place] [address] Feb, [facility] [address] [id number] [address] [place] [address], [place] [address] Feb, [facility] [address] [id number] [address] [place] [address], [place] [address] Jan, [facility] [address] [id number] [address] [place] [address], [place] [address] Jan, [facility] [address] [id number] [address] [place] [address], [place] [address] Jan, [facility] [address] [id number] [address] [place] [address], [place] [address] 23 Jan, 2013 [facility] [address] [id number] [address] [place] [address], [place] [address] Jan, [facility] [address] [id number] [address] [place] [address], [place] [address] Dec, [facility] [address] [id number] [address] [place] [address], [place] [address] Dec, [facility] [address] [id number] [address] [place] [address], [place] [address] Dec, [facility] [address] [id number] [address] [place] [address], [place] [address] November, [facility] [address] [id number] [address] [place] [address], [place] [address] November, [facility] [address] [id number] [address] [place] [address], [place] [address] November, [facility] [address] [id number] [address] [place] [address], [place] [address] Oct, [facility] [address] [id number] [address] [place] [address], [place] [address] Oct, [facility] [address] [id number] [address] [place] [address], [place] [address] Oct, [facility] [address] [id number] [address] [place] [address], [place] [address] Oct, [facility] [address] [id number] [address] [place] [address], [place] [address] 18 Oct, 2012 [facility] [address] [id number] [address] [place] [address], [place] [address] 17 Oct, 2012 [facility] [address] [id number] [address] [place] [address], [place] [address] 15 Oct, 2012 [facility] [address] [id number] [address] [place] [address], [place] [address] Sep, [facility] [address] [id number] [facility] [place] [address] Sep, [facility] [address] [id number] [address] [place] [address], [place] [address] Sep, [facility] [address] [id number] [address] [place] [address], [place] [address] Sep, [facility] [address] [id number] [address] [place] [address], [place] [address] Aug, [facility] [address] [id number] [address] [place] [address], [place] [address] Aug, [facility] [address] [id number] [address] [place] [address], [place] [address] Aug, [facility] [address] [id number] [address] [place] [address], [place] [address] Aug, [facility] [address] [id number] [address] [place] [address], [place] [address] Aug, [facility] [address] [id number] [address] [place] [address], [place] [address] Aug, [facility] [address] [id number] [address] [place] [address], [place] [address] Jul, [facility] [address] [id number] [address] [place] [address], [place] [address] Jul, [facility] [address] [id number] [address] [place] [address], [place] [address] Jul, [facility] [address] [id number] [address] [place] [address], [place] [address] Jul, [facility] [address] [id number] [address] [place] [address], [place] [address] Jul, [facility] [address] [id number] [address] [place] [address], [place] [address] Jul, [facility] [address] [id number] [address] [place] [address], [place] [address] Jun, [facility] [address] [id number] [address] [place] [address], [place] [address] Jun, [facility] [address] [id number] [address] [place] [address], [place] [address] Jun, [facility] [address] [id number] [address] [place] [address], [place] [address] Jun, [facility] [address] [id number] [address] [place] [address], [place] [address] Jun, [facility] [address] [id number] [address] [place] [address], [place] [address] Jun, [facility] [address] [id number] [address] [place] [address], [place] [address] May, [facility] [address] [id number] [address] [place] [address], [place] [address] May, [facility] [address] [id number] [address] [place] [address], [place] [address] May, [facility] [address] [id number] [address] [place] [address], [place] [address] May, [facility] [place] [address] [id number] [address] [place] [address], [place] [address] May, [facility] [address] [id number] [address] [place] [address], [place] [address] May, [facility] [address] [id number] [address] [place] [address], [place] [address] May, [facility] [address] [id number] [address] [place] [address], [place] [address] May, [facility] [address] [id number] [address] [place] [address], [place] [address] May, [facility] [address] [id number] [address] [place] [address], [place] [address] May, [facility] [address] [id number] [address] [place] [address], [place] [address] 31 Apr, 2012 [facility] [address] [id number] [address] [place] [address], [place] [address] 31 Apr, 2012 [facility] [address] [id number] [address] [place] [address], [place] [address] 23 Apr, 2012 [facility] [address] [id number] [address] [place] [address], [place] [address] 23 Apr, 2012 [facility] [address] [id number] [address] [place] [address], [place] [address] 16 Apr, 2012 [facility] [address] [id number] [address] [place] [address], [place] [address] 16 Apr, 2012 [facility] [address] [id number] [address] [place] [address], [place] [address] 15 Apr, 2012 [facility] [address] [id number] [address] [place] [address] 15 Apr, 2012 [facility] [address] [id number] [address] [place] [address], [place] [address] 05 Apr, 2012 [facility] [address] [id number] [address] [place] [address] 28 Mar, 2012 [facility] [address] [id number] [address] [place] [address] 26 Sep2011 [facility] [address] [id number] [address] [place] [id number] 25 Sep, 2011 [facility] [address] [id number] [address] [place] [id number] 19 Sep, 2011 [facility] [address] [id number] [address] [place] [address] 18 Sep, 2011 [facility] [address] [id number] [address] [place] [address] 05 Sep, 2011 [facility] [address] [id number] [address] [place] [id number] Feb, [facility] [address] [id number] [address] [place] [address], [place] [address] Feb, [facility] [address] [id number] [address] [place] [address], [place] [address] Feb, [facility] [address] [id number] [address] [place] [address], [place] [address] Jan, [facility] [address] [id number] [address] [place] [address], [place] [address] Jan, [facility] [address] [id number] [address] [place] [address], [place] [address] Jan, [facility] [address] [id number] [address] [place] [address], [place] [address] Jan, [facility] [place] [address] [id number] [address] [place] [address], [place] [address] Dec, [facility] [address] [id number] [address] [place] [address], [place] [address] November, [facility] [place] [address] [id number] [address] [place] [address], [place] [address] November, [facility] [address] [id number] [address] [place] [address], [place] [address] November, [facility] [place] [address] [id number] [address] [place] [address], [place] [address] November, [facility] [address] [id number] [address] [place] [address], [place] [address] November, [facility] [address] [id number] [address] [place] [address], [place] [address] November, [facility] [address] [id number] [address] [place] [address], [place] [address] Oct, [facility] [address] [id number] [address] [place] [address], [place] [address] Oct, [facility] [address] [id number] [address] [place] [address], [place] [address] Sep, [facility] [address] [id number] [address] [place] [address], [place] [address] Sep, [facility] [address] [id number] [address] [place] [address], [place] [address] Sep, [facility] [address] [id number] [address] [place] [address], [place] [address] Aug, [facility] [address] [id number] [address] [place] [address], [place] [address] Aug, [facility] [address] [id number] [address] [place] [address], [place] [address] Aug, [facility] [address] [id number] [address] [place] [address], [place] [address] Aug, [facility] [address] [id number] [address] [place] [address], [place] [address] Aug, [facility] [address] [id number] [address] [place] [address], [place] [address] Aug, [facility] [address] [id number] [address] [place] [address], [place] [address] Jul, [facility] [address] [id number] [address] [place] [address], [place] [address] Jul, [facility] [address] [id number] [address] [place] [address], [place] [address] Jul, [facility] [address] [id number] [address] [place] [address], [place] [address] Jul, [facility] [address] [id number] [address] [place] [address], [place] [address] Jul, [facility] [address] [id number] [address] [place] [address], [place] [address] Jul, [facility] [address] [id number] [address] [place] [address], [place] [address] 17 Jul, 2011 [facility] [address] [id number] [address] [place] [address], [place] [address] Jul, [facility] [address] [id number] [address] [place] [address], [place] [address] Jul, [facility] [address] [id number] [address] [place] [address], [place] [address] Jul, [facility] [address] [id number] [address] [place] [address], [place] [address] Jun, [facility] [address] [id number] [address] [place] [address], [place] [address] Jun, [facility] [address] [id number] [address] [place] [address], [place] [address] Jun, [facility] [address] [id number] [address] [place] [address], [place] [address] Jun, [facility] [address] [id number] [address] [place] [address], [place] [address] May, [facility] [address] [id number] [address] [place] [address], [place] [address] May, [facility] [address] [id number] [address] [place] [address], [place] [address] May, [facility] [address] [id number] [address] [place] [address], [place] [address] May, [facility] [address] [id number] [address] [place] [address], [place] [address] Apr, [facility] [address] [id number] [address] [place] [address], [place] [address] Apr, [facility] [address] [id number] [address] [place] [address], [place] [address] November, [facility] [address] [id number] [address] [place] [address], [place] [address] 18 Oct, 2010 [facility] [address] [id number] [address] [place] [address], [place] [address] 17 Aug, 2010 [facility] [address] [id number] [address] [place] [address], [place] [address] 28 Jun, 2010 [facility] [address] [id number] [address] [place] [address], [place] [address] 28 Jun, 2010 [facility] [address] [id number] [address] [place] [address], [place] [address] 27 Jun, 2010 [facility] [address] [id number] [address] [place] [address], [place] [address] 03 Jun, 2010 [facility] [address] [id number] [address] [place] [address], [place] [address] 29 May, 2010 [facility] [address] [id number] [address] [place] [address], [place] [address] 27 Apr, 2010 [facility] [address] [id number] [address] [place] [address], [place] [address] 13 Oct, 2009 [facility] [address] [id number] [address] [place] [address], [place] [address] 13 Aug, 2009 [facility] [address] [id number] [address] [place] [address], [place] [address] 20 Jul, 2009 [facility] [address] [id number] [address] [place] [address], [place] [address] 22 Jun, 2009 [facility] [address] [id number] [address] [place] [address], [place] [address] 16 Jun, 2009 [facility] [address] [id number] [address] [place] [address], [place] [address] 14 Jun, 2009 [facility] [address] [id number] [address] [place] [address], [place] [address] 14 Jun, 2009 [facility] [address] [id number] [address] [place] [address], [place] [address] 09 May, 2009 [facility] [address] [id number] [address] [place], [place] [address] [address] Apr, [facility] [place] [address] [facility] [place] [id number] [address] [place] [id number] 15 Mar, 2009 [facility] [place] [address] [facility] [place] [id number] [address] [place] [id number] 14 Mar, 2009 [facility] [place] [address] [facility] [place] [id number] [address] [place] [id number] 11 Dec, 2008 IMMUNIZATIONS No Known Immunizations SOCIAL HISTORY Never Assessed REASON FOR VISIT Bloating/Cramping/Diarrhea/Constipation Pt c/o bloating and cramping every time she eats for over a month, states Shoshana Mazin changed her medication and the new one makes it worse VIGNESH Cedillo PLAN OF CARE Activity Details Follow Up prn Reason: VITAL SIGNS Height 66.0 in 2017-08-27 Weight 202.4 lbs 2017-08-27 Temperature 97.3 degrees Fahrenheit 2017-08-27 Heart Rate 76 bpm 2017-08-27 Respiratory Rate 20 2017-08-27 BMI 32.66 kg/m2 2017-08-27 Blood pressure systolic 120 mmHg 2017-08-27 Blood pressure diastolic 82 mmHg 2017-08-27 MEDICATIONS Medication Instructions Dosage Frequency Start Date End Date Duration S tatus Promethazine-Codeine 6.25-10 MG/5ML Orally every 6 hrs 2.5 -5 ml as needed 6h Jul, Active Tramadol HCl 50 mg Orally 3 times a day 1 tablet 8h Jun, 28 days Active Duloxetine HCl 60 MG TAKE TWO CAPSULES BY MOUTH ONCE DAILY IN THE MORNING 30 Active Albuterol Sulfate (2.5 MG/3ML) 0.083% Inhalation Three times a day 3 ml as needed 8h Jul, Active Omeprazole 20 mg Orally Once a day 1 capsule 24h Jul, 30 day(s) Active RESULTS No Results PROCEDURES Procedure Date Ordered Result Body Site [facility] VISIT ESTABLISHED PATIENT Aug 27, 2017 INSTRUCTIONS MEDICATIONS ADMINISTERED No Known Medications [...]
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
--- OUTSIDE RECORDS SUMMARY | 2019-09-01 05:26 | XMS REPORT ---
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 [address], [place] [address] Apr, [facility] [address] [id number] [address] [place] [address], [place] [address] 29 Mar, 2013 [facility] [address] [id number] [address] [place] [address], [place] [address] 29 Mar, 2013 [facility] [address] [id number] [address] [place] [address], [place] [address] 29 Mar, 2013 [facility] [address] [id number] [address] [place] [address], [place] [address] 29 Mar, 2013 [facility] [address] [id number] [address] [place] [address], [place] [address] Mar, 2013 [facility] [address] [id number] [address] [place] [address], [place] [address] Mar, 2013 [facility] [address] [id number] [address] [place] [address], [place] [address] Mar, 2013 [facility] [address] [id number] [address] [place] [address], [place] [address] Mar, 2013 [facility] [address] [id number] [address] [place] [address], [place] [address] Mar, 2013 [facility] [address] [id number] [address] [place] [address], [place] [address] Mar, 2013 [facility] [address] [id number] [address] [place] [address], [place] [address] Mar, 2013 [facility] [address] [id number] [address] [place] [address], [place] [address] Mar, 2013 [facility] [address] [id number] [address] [place] [address], [place] [address] Feb, [facility] [address] [id number] [address] [place] [address], [place] [address] Feb, [facility] [address] [id number] [address] [place] [address], [place] [address] Jan, [facility] [address] [id number] [address] [place] [address], [place] [address] Jan, [facility] [address] [id number] [address] [place] [address], [place] [address] Jan, [facility] [address] [id number] [address] [place] [address], [place] [address] Jan, [facility] [address] [id number] [address] [place] [address], [place] [address] Dec, [facility] [address] [id number] [address] [place] [address], [place] [address] Dec, [facility] [address] [id number] [address] [place] [address], [place] [address] Dec, [facility] [address] [id number] [address] [place] [address], [place] [address] Dec, [facility] [address] [id number] [address] [place] [address], [place] [address] Dec, [facility] [address] [id number] [address] [place] [address], [place] [address] Dec, [facility] [address] [id number] [address] [place] [address], [place] [address] November, [facility] [address] [id number] [address] [place] [address], [place] [address] November, [facility] [address] [id number] [address] [place] [address], [place] [address] November, [facility] [address] [id number] [address] [place] [address], [place] [address] November, [facility] [address] [id number] [address] [place] [address], [place] [address] November, [facility] [address] [id number] [address] [place] [address], [place] [address] November, [facility] [address] [place] [id number] November, [facility] [address] [id number] [address] [place] [address], [place] [address] November, [facility] [address] [id number] [address] [place] [address], [place] [address] November, [facility] [address] [id number] [address] [place] [address], [place] [address] November, [facility] [address] [id number] [address] [place] [address], [place] [address] November, [facility] [address] [id number] [address] [place] [address], [place] [address] November, [facility] [address] [id number] [address] [place] [address], [place] [address] Oct, [facility] [address] [id number] [address] [place] [address], [place] [address] Oct, [facility] [address] [id number] [address] [place] [address], [place] [address] Oct, [facility] [address] [id number] [address] [place] [address], [place] [address] Oct, [facility] [address] [id number] [address] [place] [address], [place] [address] Oct, [facility] [address] [id number] [address] [place] [address], [place] [address] Oct, [facility] [address] [id number] [address] [place] [address], [place] [address] Oct, [facility] [address] [id number] [address] [place] [address], [place] [address] Oct, [facility] [address] [id number] [address] [place] [address], [place] [address] Oct, [facility] [address] [id number] [address] [place] [address], [place] [address] Oct, [facility] [address] [id number] [address] [place] [address], [place] [address] Oct, [facility] [address] [id number] [address] [place] [address], [place] [address] Oct, [facility] [address] [id number] [address] [place] [address], [place] [address] Oct, [facility] [address] [id number] [address] [place] [address], [place] [address] Oct, [facility] [address] [id number] [address] [place] [address], [place] [address] Oct, [facility] [address] [id number] [address] [place] [address], [place] [address] Sep, [facility] [address] [id number] [address] [place] [address], [place] [address] Sep, [facility] [address] [id number] [address] [place] [address], [place] [address] Sep, [facility] [address] [id number] [address] [place] [address], [place] [address] Sep, [facility] [address] [id number] [address] [place] [address], [place] [address] Aug, [facility] [address] [id number] [address] [place] [address], [place] [address] Aug, [facility] [address] [id number] [address] [place] [address], [place] [address] Aug, [facility] [address] [id number] [address] [place] [address], [place] [address] Aug, [facility] [address] [id number] [address] [place] [address], [place] [address] Jul, [facility] [address] [id number] [address] [place] [address], [place] [address] Jul, [facility] [address] [id number] [address] [place] [address], [place] [address] Jul, [facility] [address] [id number] [address] [place] [id number], [place] [id number] Jul, [facility] [address] [id number] [address] [place] [id number], [place] [id number] Jul, [facility] [address] [id number] [address] [place] [id number], [place] [id number] Jul, [facility] [address] [id number] [address] [place] [id number], [place] [id number] Jul, [facility] [address] [id number] [address] [place] [id number], [place] [id number] Jul, [facility] [address] [id number] [address] [place] [id number], [place] [id number] Jul, [facility] [address] [id number] [address] [place] [id number], [place] [id number] Jul, [facility] [address] [id number] [address] [place] [id number], [place] [id number] Jul, [facility] [address] [id number] [address] [place] [id number], [place] [id number] Jul, [facility] [address] [id number] [address] [place] [id number], [place] [id number] Jul, [facility] [address] [id number] [address] [place] [id number], [place] [id number] Jul, [facility] [address] [id number] [address] [place] [address], [place] [id number] Jun, [facility] [address] [id number] [address] [place] [id number], [place] [address] Jun, [facility] [address] [id number] [address] [place] [id number], [place] [id number] Jun, [facility] [address] [id number] [address] [place] [id number] Jun, [facility] [address] [id number] [address] [place] [id number], [place] [id number] May, [facility] [address] [id number] [address] [place] [id number], [place] [id number] May, [facility] [address] [id number] [address] [place] [id number], [place] [id number] May, [facility] [address] [id number] [address] [place] [id number] May, [facility] [address] [id number] [address] [place] [id number], [place] [id number] May, [facility] [address] [id number] [address] [place] [id number], [place] [id number] May, [facility] [address] [id number] [address] [place] [id number], [place] [id number] May, [facility] [address] [id number] [address] [place] [id number] May, [facility] [address] [id number] [address] [place] [id number], [place] [id number] Apr, [facility] [address] [id number] [address] [place] [id number], [place] [id number] Apr, [facility] [address] [id number] [address] [place] [id number] Apr, [facility] [address] [id number] [address] [place] [id number] Apr, [facility] [address] [id number] [address] [place] [id number], [place] [id number] Apr, [facility] [address] [id number] [address] [place] [id number] Apr, [facility] [address] [id number] [address] [place] [id number], [place] [id number] Mar, [facility] [address] [id number] [address] [place] [id number], [place] [id number] 26 Mar, 2013 [facility] [address] [id number] [address] [place] [id number], [place] [id number] 20 Mar, 2013 [facility] [address] [id number] [address] [place] [id number], [place] [id number] 17 Mar, 2013 [facility] [address] [id number] [address] [place] [id number], [place] [id number] 16 Mar, 2013 [facility] [address] [id number] [address] [place] [id number], [place] [id number] 05 Mar, 2013 [facility] [address] [id number] [address] [place] [address], [place] [address] Feb, [facility] [address] [id number] [address] [place] [address], [place] [id number] Feb, [facility] [address] [id number] [address] [place] [id number], [place] [id number] Feb, [facility] [address] [id number] [address] [place] [address], [place] [id number] Feb, [facility] [address] [id number] [address] [place] [id number], [place] [id number] Jan, [facility] [address] [id number] [address] [place] [address], [place] [id number] Jan, [facility] [address] [id number] [address] [place] [address], [place] [id number] Jan, [facility] [address] [id number] [address] [place] [address], [place] [id number] Jan, [facility] [address] [id number] [address] [place] [address], [place] [id number] Jan, [facility] [address] [id number] [address] [place] [address], [place] [id number] Dec, [facility] [facility] [address] [id number] [address] [place] [address], [place] [address] Dec, [facility] [address] [id number] [address] [place] [address], [place] [address] Dec, [facility] [address] [id number] [address] [place] [address], [place] [address] November, [facility] [address] [id number] [address] [place] [address], [place] [address] November, [facility] [address] [id number] [address] [place] [address], [place] [address] November, [facility] [address] [id number] [address] [place] [address], [place] [phone] Oct, [facility] [address] [id number] [address] [place] [address], [place] [address] Oct, [facility] [address] [id number] [address] [place] [address], [place] [phone] Oct, [facility] [address] [id number] [address] [place] [address], [place] [address] Oct, [facility] [address] [id number] [address] [place] [address], [place] [address] Oct, [facility] [address] [id number] [address] [place] [address], [place] [address] Oct, [facility] [address] [id number] [address] [place] [address], [place] [address] Oct, [facility] [address] [id number] [address] [place] [address], [place] [address] Sep, [facility] [address] [id number] [address] [place] [address], [place] [address] Sep, [facility] [address] [id number] [address] [place] [address], [place] [address] Sep, [facility] [address] [id number] [address] [place] [address], [place] [id number] Sep, [facility] [address] [id number] [address] [place] [phone] Aug, [facility] [address] [id number] [address] [place] [address], [place] [address] Aug, [facility] [address] [id number] [address] [place] [address], [place] [phone] Aug, [facility] [address] [id number] [address] [place] [address], [place] [address] Aug, [facility] [address] [id number] [address] [place] [address], [place] [phone] Aug, [facility] [address] [id number] [address] [place] [address], [place] [address] Aug, [facility] [address] [id number] [address] [place] [address], [place] [id number] Jul, [facility] [address] [id number] [address] [place] [address], [place] [address] Jul, [facility] [address] [id number] [address] [place] [address], [place] [address] Jul, [facility] [address] [id number] [address] [place] [address], [place] [address] Jul, [facility] [address] [id number] [address] [place] [address], [place] [address] Jul, [facility] [address] [id number] [address] [place] [address], [place] [address] Jul, [facility] [address] [id number] [address] [place] [address], [place] [address] Jun, [facility] [address] [id number] [address] [place] [address], [place] [address] Jun, [facility] [address] [id number] [address] [place] [address], [place] [address] Jun, [facility] [address] [id number] [address] [place] [address], [place] [address] Jun, [facility] [address] [id number] [address] [place] [address], [place] [phone] Jun, [facility] [address] [id number] [address] [place] [address], [place] [address] Jun, [facility] [address] [id number] [address] [place] [address], [place] [address] May, [facility] [address] [id number] [address] [place] [address], [place] [address] May, [facility] [address] [id number] [address] [place] [address], [place] [address] May, [facility] [address] [id number] [address] [place] [address], [place] [address] May, [facility] [address] [id number] [address] [place] [address], [place] [address] May, [facility] [address] [id number] [address] [place] [address], [place] [address] May, [facility] [address] [id number] [address] [place] [address], [place] [address] May, [facility] [address] [id number] [address] [place] [address], [place] [address] May, [facility] [address] [id number] [address] [place] [address], [place] [address] May, [facility] [address] [id number] [address] [place] [address], [place] [address] May, [facility] [address] [id number] [address] [place] [address], [place] [address] Apr, [facility] [address] [id number] [address] [place] [address], [place] [address] Apr, [facility] [address] [id number] [address] [place] [address], [place] [address] Apr, [facility] [address] [id number] [address] [place] [id number] 23 Apr, 2012 [facility] [address] [id number] [address] [place] [address], [place] [address] 16 Apr, 2012 [facility] [address] [id number] [address] [place] [address], [place] [address] 16 Apr, 2012 [facility] [address] [id number] [address] [place] [address], [place] [address] 15 Apr, 2012 [facility] [address] [id number] [address] [place] [address], [place] [address] 15 Apr, 2012 [facility] [address] [id number] [address] [place] [address], [place] [address] 05 Apr, 2012 [facility] [address] [id number] [address] [place] [address], [place] [address] 28 Mar, 2012 [facility] [address] [id number] [address] [place] [address], [place] [address] 26 Mar, 2012 [facility] [address] [id number] [address] [place] [address], [place] [address] 25 Mar, 2012 [facility] [address] [id number] [address] [place] [address], [place] [address] 19 Mar, 2012 [facility] [address] [id number] [address] [place] [address], [place] [address] 18 Mar, 2012 [facility] [address] [id number] [address] [place] [address], [place] [address] 05 Mar, 2012 [facility] [address] [id number] [address] [place] [address], [place] [address] Feb, [facility] [address] [id number] [address] [place] [address], [place] [address] Feb, [facility] [address] [id number] [address] [place] [address], [place] [address] Feb, [facility] [address] [id number] [address] [place] [address], [place] [address] Jan, [facility] [address] [id number] [address] [place] [address], [place] [address] 31 Jan, 2012 [facility] [address] [id number] [address] [place] [address], [place] [address] Jan, [facility] [address] [id number] [address] [place] [address], [place] [address] Jan, [facility] [address] [id number] [address] [place] [address], [place] [address] Dec, [facility] [address] [id number] [address] [place] [address], [place] [address] November, [facility] [address] [id number] [address] [place] [address], [place] [address] November, [facility] [address] [id number] [address] [place] [address], [place] [address] November, [facility] [address] [id number] [address] [place] [address], [place] [address] November, [facility] [address] [id number] [address] [place] [address], [place] [address] November, [facility] [address] [id number] [address] [place] [address], [place] [address] November, [facility] [address] [id number] [address] [place] [address], [place] [address] Oct, [facility] [address] [id number] [address] [place] [address], [place] [address] Oct, [facility] [address] [id number] [address] [place] [address], [place] [address] Sep, [facility] [address] [id number] [address] [place] [address], [place] [address] Sep, [facility] [address] [id number] [address] [place] [address], [place] [address] Sep, [facility] [address] [id number] [address] [place] [address], [place] [address] Aug, [facility] [address] [id number] [address] [place] [address], [place] [address] Aug, [facility] [address] [id number] [address] [place] [address], [place] [address] 14 Aug, 2011 [facility] [address] [id number] [address] [place] [address], [place] [address] Aug, [facility] [address] [id number] [address] [place] [address], [place] [address] Aug, [facility] [address] [id number] [address] [place] [address], [place] [address] Aug, [facility] [address] [id number] [address] [place] [address], [place] [address] Jul, [facility] [address] [id number] [address] [place] [address], [place] [address] Jul, [facility] [address] [id number] [address] [place] [address], [place] [address] Jul, [facility] [address] [id number] [address] [place] [address], [place] [address] Jul, [facility] [address] [id number] [address] [place] [address], [place] [address] Jul, [facility] [address] [id number] [address] [place] [address], [place] [address] Jul, [facility] [address] [id number] [address] [place] [address], [place] [address] Jul, [facility] [address] [id number] [address] [place] [address], [place] [address] Jul, [facility] [address] [id number] [address] [place] [address], [place] [address] Jul, [facility] [address] [id number] [address] [place] [address], [place] [address] Jul, [facility] [address] [id number] [address] [place] [address], [place] [address] 28 Jun, 2011 [facility] [address] [id number] [address] [place] [address], [place] [address] Jun, [facility] [address] [id number] [address] [place] [address], [place] [address] Jun, [facility] [address] [id number] [address] [place] [address], [place] [address] Jun, [facility] [address] [id number] [address] [place] [address], [place] [address] 30 May, 2011 [facility] [address] [id number] [address] [place] [address], [place] [address] 29 May, 2011 [facility] [address] [id number] [address] [place] [address], [place] [address] May, [facility] [address] [id number] [address] [place] [address], [place] [address] May, [facility] [address] [id number] [address] [place] [address], [place] [address] Apr, [facility] [address] [id number] [address] [place] [address], [place] [address] Apr, [facility] [address] [id number] [address] [place] [address], [place] [address] November, [facility] [address] [id number] [address] [place] [address], [place] [address] Oct, [facility] [address] [id number] [address] [place] [address], [place] [address] Aug, [facility] [address] [id number] [address] [place] [address], [place] [address] Jun, [facility] [address] [id number] [address] [place] [address], [place] [address] Jun, [facility] [address] [id number] [address] [place] [address], [place] [address] Jun, [facility] [address] [id number] [address] [place] [id number] 03 Jun, 2010 [facility] [address] [id number] [address] [place] [id number] 29 May, 2010 [facility] [address] [id number] [address] [place] [id number] 27 Apr, 2010 [facility] [address] [id number] [address] [place] [phone] 13 Oct, 2009 [facility] [address] [id number] [address] [place] [address] 13 Aug, 2009 [facility] [address] [id number] [address] [place] [address] 20 Jul, 2009 [facility] [address] [id number] [address] [place] [id number] 22 Jun, 2009 [facility] [address] [id number] [address] [place] [phone] 16 Jun, 2009 [facility] [address] [id number] [address] [place] [address] 14 Jun, 2009 [facility] [address] [id number] [address] [place] [address] 14 Jun, 2009 [facility] [address] [id number] [address] [place] [id number] 09 May, 2009 [facility] [address] [id number] [address] [place] [address] 20 Apr, 2009 [facility] [address] [id number] [address] [place] [address] 15 Mar, 2009 [facility] [address] [id number] [address] [place] [id number] 14 Mar, 2009 [facility] [address] [id number] [address] [place] [address] 11 Dec, 2008 IMMUNIZATIONS No Known Immunizations SOCIAL HISTORY Never Assessed REASON FOR VISIT klonipin refill PLAN OF CARE VITAL SIGNS MEDICATIONS Medication Instructions Dosage Frequency Start Date End Date Duration S campbell Clonazepam 0.5 MG Orally daily. MAX 60/month take 1-2 tabs daily up to twice a day prn anxiety 30 days Active RESULTS No Results PROCEDURES [...]
--- OUTSIDE RECORDS SUMMARY | 2019-09-01 05:26 | XMS REPORT ---
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 [address]-69 (2.5 MG/3ML) 0 .083% Inhalation 4 times a day as Needed 3 ml Lancets NDC 0 Mar 28, 2013 2 times pe r day ProAir HFA [facility] 47362160518 108 (90 Base) MCG/ACT INHALE TWO PUFFS BY MOUTH EVERY 6 HOURS NEEDED FOR WHEEZING Pantoprazole Sodium ND 20969732690 40 MG TAKE ONE TABLET BY MOUTH DAILY Potassium Chloride ER ND 42916679200 20 MEQ Orally Once a day 1 tablet with food tramadol NDC 0 50 mg by oral route 3 times a day October 04 5 1 tablet as needed for pain Amitriptyline HCl ND 55404525850 25 MG Orally Once a day TAKE ONE TABLET BY MOUTH AT BEDTIME Loratadine [facility] 77947378923 10 MG take 1 ta blet by Oral route 1 time per day take at hs for allergies Duloxetine HCl [facility] 55675436641 60 MG TAKE ONE CAPSULE BY MOUTH ONCE DAILY Lasix [facility] 48941877553 40 MG Orally Once a day 1 tablet Meloxicam [facility] 45318076368 15 MG TAKE ONE T ABLET BY MOUTH DAILY NEEDED Gabapentin [facility] [address]-97 300 MG Orally 2 times a day February 05 16 1 capsule Prem[address] [facility] 53038841667 0.625 MG/GM USE 1 GRAM BY VAGINALLY ROUTE ON EXTERNAL GENITALS ONCE DAILY FOR 14 DAYS THEN DECREASE TO THREE TIMES A WEEK THEREAFTER Misc. Devices ND 0 N/A 4 times a day as neede d Federico to sign for Shoshana May 16, 2015 Nebulizer machine Abilify [facility] [address]-43 5 MG Orally Once a day TAKE ONE TABLET BY MOUTH DAILY Clonazepam [facility] 21671701302 0.5 MG Orally daily take 1-2 tabs daily up to twice a day prn anxiety Metformin HCl [facility] [address]-61 500 MG Orally Twice a day 1 tablet with meals Symbicort [facility] 71747777670 160-4.5 MCG/ACT INHALE TWO PUFFS BY MOUTH TWICE DAILY Amlodipine Besylate [facility] [address]-07 5 mg Orally Once a day 1 tablet Procedures Procedure Coding System Code Date Office Visit, Est Pt., Level 2 CPT-4 39910 S ept 2015 No Charge CPT-4 66465 Mar 19, 2016 Vital Signs Date/Time: Mar 19, 2016 Cardiac Monitoring Heart Rate 84 bpm Weight 203 lbs Height 66.0 in BMI 32.76 Index Blood Pressure Diastolic 84 mmHg Blood Pressure Systolic 122 mmHg Results Name Result Date Reference Range Unit Abnormali ty Flag [employer] Summary Purpose [employer] Submission
--- OUTSIDE RECORDS SUMMARY | 2019-09-01 05:26 | XMS REPORT ---
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 [place] [address], [place] [address] Apr, [facility] [address] [id number] [address] [place] [address], [place] [address] Apr, [facility] [address] [id number] [address] [place] [address], [place] [address] 29 Mar, 2013 [facility] [address] [id number] [address] [place] [address], [place] [address] 29 Mar, 2013 [facility] [address] [id number] [address] [place] [address], [place] [address] 29 Mar, 2013 [facility] [address] [id number] [address] [place] [address], [place] [address] 29 Mar, 2013 [facility] [address] [id number] [address] [place] [address], [place] [address] 10 Mar, 2013 [facility] [address] [id number] [address] [place] [id number] 10 Mar, 2013 [facility] [address] [id number] [address] [place] [id number] Sep, 2013 [facility] [address] [id number] [address] [place] [address], [place] [address] 04 Sep, 2013 [facility] [address] [id number] [address] [place] [address], [place] [address] 02 Mar, 2013 [facility] [address] [id number] [address] [place] [address], [place] [address] Mar, 2013 [facility] [address] [id number] [address] [place] [address], [place] [address] Mar, [facility] [address] [id number] [address] [place] [address], [place] [address] Mar, [facility] [address] [id number] [address] [place] [address], [place] [address] Feb, [facility] [address] [id number] [address] [place] [address], [place] [address] Feb, [facility] [address] [id number] [address] [place] [address], [place] [address] Jan, [facility] [address] [id number] [address] [place] [address], [place] [address] Jan, [facility] [address] [id number] [address] [place] [address], [place] [address] Jan, [facility] [address] [id number] [address] [place] [address], [place] [address] Jan, [facility] [address] [id number] [address] [place] [address], [place] [address] Dec, [facility] [address] [id number] [address] [place] [address], [place] [address] Dec, [facility] [address] [id number] [address] [place] [address], [place] [address] Dec, [facility] [address] [id number] [address] [place] [address], [place] [address] Dec, [facility] [address] [id number] [address] [place] [address], [place] [address] Dec, [facility] [address] [id number] [address] [place] [address], [place] [address] Dec, [facility] [address] [id number] [address] [place] [address], [place] [address] November, [facility] [address] [id number] [address] [place] [address], [place] [address] November, [facility] [address] [id number] [address] [place] [address], [place] [address] November, [facility] [address] [id number] [address] [place] [address], [place] [address] November, [facility] [address] [id number] [address] [place] [address], [place] [address] November, [facility] [address] [id number] [address] [place] [address], [place] [address] November, [facility] [id number] November, [facility] [address] [id number] [address] [place] [address], [place] [address] November, [facility] [address] [id number] [address] [place] [address], [place] [address] November, [facility] [address] [id number] [address] [place] [address], [place] [address] November, [facility] [address] [id number] [address] [place] [address], [place] [address] November, [facility] [address] [id number] [address] [place] [address], [place] [address] November, [facility] [address] [id number] [address] [place] [address], [place] [address] Oct, [facility] [address] [id number] [address] [place] [address], [place] [address] Oct, [facility] [address] [id number] [address] [place] [address], [place] [address] Oct, [facility] [address] [id number] [address] [place] [address], [place] [address] Oct, [facility] [address] [id number] [address] [place] [address], [place] [address] Oct, [facility] [address] [id number] [address] [place] [address], [place] [address] Oct, [facility] [address] [id number] [facility] [place] [address] Oct, [facility] [address] [id number] [facility] [place] [address] Oct, [facility] [address] [id number] [facility] [place] [address] Oct, [facility] [address] [id number] [address] [place] [address], [place] [address] Oct, [facility] [address] [id number] [address] [place] [address], [place] [address] Oct, [facility] [address] [id number] [address] [place] [address], [place] [address] Oct, [facility] [address] [id number] [address] [place] [address], [place] [address] Oct, [facility] [address] [id number] [address] [place] [address], [place] [address] Oct, [facility] [address] [id number] [address] [place] [address], [place] [address] Oct, [facility] [address] [id number] [address] [place] [address], [place] [address] Sep, [facility] [address] [id number] [address] [place] [address], [place] [address] Sep, [facility] [address] [id number] [address] [place] [address], [place] [address] Sep, [facility] [address] [id number] [address] [place] [address], [place] [address] Sep, [facility] [address] [id number] [address] [place] [address], [place] [address] Aug, [facility] [address] [id number] [address] [place] [address], [place] [address] Aug, [facility] [address] [id number] [address] [place] [address], [place] [address] Aug, [facility] [address] [id number] [address] [place] [address], [place] [address] Aug, [facility] [address] [id number] [address] [place] [address], [place] [address] Jul, [facility] [address] [id number] [address] [place] [address], [place] [address] Jul, [facility] [address] [id number] [address] [place] [address], [place] [address] Jul, [facility] [address] [id number] [address] [place] [address], [place] [address] Jul, [facility] [address] [id number] [address] [place] [address], [place] [address] Jul, [facility] [address] [id number] [address] [place] [address], [place] [address] Jul, [facility] [address] [id number] [address] [place] [address], [place] [address] Jul, [facility] [address] [id number] [address] [place] [address], [place] [address] Jul, [facility] [address] [id number] [address] [place] [address], [place] [address] Jul, [facility] [address] [id number] [address] [place] [address], [place] [address] Jul, [facility] [address] [id number] [address] [place] [address], [place] [address] Jul, [facility] [address] [id number] [address] [place] [address], [place] [address] Jul, [facility] [address] [id number] [address] [place] [address], [place] [address] Jul, [facility] [address] [id number] [address] [place] [address], [place] [address] Jul, [facility] [address] [id number] [address] [place] [address], [place] [address] Jun, [facility] [address] [id number] [address] [place] [address], [place] [address] Jun, [facility] [address] [id number] [address] [place] [address], [place] [address] Jun, [facility] [address] [id number] [address] [place] [address], [place] [address] Jun, [facility] [address] [id number] [address] [place] [address], [place] [address] May, [facility] [address] [id number] [address] [place] [address], [place] [address] May, [facility] [address] [id number] [address] [place] [address], [place] [address] May, [facility] [address] [id number] [address] [place] [address], [place] [address] May, [facility] [address] [id number] [address] [place] [address], [place] [address] May, [facility] [address] [id number] [address] [place] [id number] May, [facility] [address] [id number] [address] [place] [id number] May, [facility] [address] [id number] [address] [place] [address] May, [facility] [address] [id number] [address] [place] [address], [place] [address] Apr, [facility] [address] [id number] [address] [place] [address], [place] [address] Apr, [facility] [address] [id number] [address] [place] [id number] Apr, [facility] [address] [id number] [address] [place] [id number] Apr, [facility] [address] [id number] [address] [place] [address], [place] [address] Apr, [facility] [address] [id number] [address] [place] [address], [place] [address] Apr, [facility] [address] [id number] [address] [place] [address], [place] [address] 30 Mar, 2013 [facility] [address] [id number] [address] [place] [address], [place] [address] 26 Mar, 2013 [facility] [address] [id number] [address] [place] [address], [place] [address] 20 Mar, 2013 [facility] [address] [id number] [address] [place] [address], [place] [address] 17 Mar, 2013 [facility] [address] [id number] [address] [place] [address], [place] [address] 16 Mar, 2013 [facility] [address] [id number] [address] [place] [address], [place] [address] 05 Mar, 2013 [facility] [address] [id number] [address] [place] [address], [place] [address] Feb, [facility] [address] [id number] [address] [place] [address], [place] [address] Feb, [facility] [address] [id number] [address] [place] [address], [place] [address] Feb, [facility] [address] [id number] [address] [place] [address], [place] [address] Feb, [facility] [address] [id number] [address] [place] [address], [place] [address] Jan, [facility] [address] [id number] [address] [place] [address], [place] [address] Jan, [facility] [address] [id number] [address] [place] [address], [place] [address] Jan, [facility] [address] [id number] [address] [place] [address], [place] [address] 23 Jan, 2013 [facility] [address] [id number] [address] [place] [address], [place] [address] 16 Jan, 2013 [facility] [address] [id number] [address] [place] [address], [place] [address] Dec, [facility] [address] [id number] [address] [place] [address], [place] [address] Dec, [facility] [address] [id number] [address] [place] [address], [place] [address] Dec, [facility] [address] [id number] [address] [place] [address], [place] [address] November, [facility] [address] [id number] [address] [place] [address], [place] [address] November, [facility] [address] [id number] [address] [place] [address], [place] [address] November, [facility] [address] [id number] [address] [place] [address], [place] [address] Oct, [facility] [address] [id number] [address] [place] [address], [place] [address] Oct, [facility] [address] [id number] [address] [place] [address], [place] [address] Oct, [facility] [address] [id number] [address] [place] [address], [place] [address] Oct, [facility] [address] [id number] [address] [place] [address], [place] [address] 18 Oct, 2012 [facility] [address] [id number] [address] [place] [address], [place] [address] 17 Oct, 2012 [facility] [address] [id number] [address] [place] [address], [place] [address] 15 Oct, 2012 [facility] [address] [id number] [address] [place] [address], [place] [address] Sep, [facility] [address] [id number] [facility] [place] [address] Sep, [facility] [address] [id number] [address] [place] [address], [place] [address] Sep, [facility] [address] [id number] [address] [place] [address], [place] [address] Sep, [facility] [address] [id number] [address] [place] [address], [place] [address] Aug, [facility] [address] [id number] [address] [place] [address], [place] [address] Aug, [facility] [address] [id number] [address] [place] [address], [place] [address] Aug, [facility] [address] [id number] [address] [place] [address], [place] [address] Aug, [facility] [address] [id number] [address] [place] [address], [place] [address] Aug, [facility] [address] [id number] [address] [place] [address], [place] [address] Aug, [facility] [address] [id number] [address] [place] [address], [place] [address] Jul, [facility] [address] [id number] [address] [place] [address], [place] [address] Jul, [facility] [address] [id number] [address] [place] [address], [place] [address] Jul, [facility] [address] [id number] [address] [place] [address], [place] [address] Jul, [facility] [address] [id number] [address] [place] [address], [place] [address] Jul, [facility] [address] [id number] [address] [place] [address], [place] [address] Jul, [facility] [address] [id number] [address] [place] [address], [place] [address] Jun, [facility] [address] [id number] [address] [place] [address], [place] [address] Jun, [facility] [address] [id number] [address] [place] [address], [place] [address] Jun, [facility] [address] [id number] [address] [place] [address], [place] [address] Jun, [facility] [address] [id number] [address] [place] [address], [place] [address] Jun, [facility] [address] [id number] [address] [place] [address], [place] [address] Jun, [facility] [address] [id number] [address] [place] [address], [place] [address] May, [facility] [address] [id number] [address] [place] [address], [place] [address] May, [facility] [address] [id number] [address] [place] [address], [place] [address] May, [facility] [address] [id number] [address] [place] [address], [place] [address] May, [facility] [address] [id number] [address] [place] [address], [place] [address] May, [facility] [address] [id number] [address] [place] [address], [place] [address] May, [facility] [address] [id number] [address] [place] [address], [place] [address] May, [facility] [address] [id number] [address] [place] [address], [place] [address] May, [facility] [address] [id number] [address] [place] [address], [place] [address] May, [facility] [address] [id number] [address] [place] [address], [place] [address] May, [facility] [address] [id number] [address] [place] [address], [place] [address] 31 Apr, 2012 [facility] [address] [id number] [address] [place] [address], [place] [address] 31 Apr, 2012 [facility] [address] [id number] [address] [place] [address], [place] [address] 23 Apr, 2012 [facility] [address] [id number] [address] [place] [address], [place] [address] 23 Apr, 2012 [facility] [address] [id number] [address] [place] [address], [place] [address] 16 Apr, 2012 [facility] [address] [id number] [address] [place] [address], [place] [address] 16 Apr, 2012 [facility] [address] [id number] [address] [place] [address], [place] [address] 15 Apr, 2012 [facility] [address] [id number] [address] [place] [id number] 15 Apr, 2012 [facility] [address] [id number] [address] [place] [address], [place] [address] 05 Apr, 2012 [facility] [address] [id number] [address] [place] [id number] 28 Mar, 2012 [facility] [address] [id number] [address] [place] [id number] 26 Sep2011 [facility] [address] [id number] [address] [place] [id number] 25 Sep, 2011 [facility] [address] [id number] [address] [place] [id number] 19 Sep, 2011 [facility] [address] [id number] [address] [place] [id number] 18 Sep, 2011 [facility] [address] [id number] [address] [place] [id number] 05 Sep, 2011 [facility] [address] [id number] [address] [place] [id number] Feb, [facility] [address] [id number] [address] [place] [address], [place] [address] Feb, [facility] [address] [id number] [address] [place] [address], [place] [address] Feb, [facility] [address] [id number] [address] [place] [address], [place] [address] Jan, [facility] [address] [id number] [address] [place] [address], [place] [address] Jan, [facility] [address] [id number] [address] [place] [address], [place] [address] Jan, [facility] [address] [id number] [address] [place] [address], [place] [address] Jan, [facility] [address] [id number] [address] [place] [address], [place] [address] Dec, [facility] [address] [id number] [address] [place] [address], [place] [address] November, [facility] [address] [id number] [address] [place] [address], [place] [address] November, [facility] [address] [id number] [address] [place] [address], [place] [address] November, [facility] [address] [id number] [address] [place] [address], [place] [address] November, [facility] [address] [id number] [address] [place] [address], [place] [address] November, [facility] [address] [id number] [address] [place] [address], [place] [address] November, [facility] [address] [id number] [address] [place] [address], [place] [address] Oct, [facility] [address] [id number] [address] [place] [address], [place] [address] Oct, [facility] [address] [id number] [address] [place] [address], [place] [address] Sep, [facility] [address] [id number] [address] [place] [address], [place] [address] Sep, [facility] [address] [id number] [address] [place] [address], [place] [address] Sep, [facility] [address] [id number] [address] [place] [address], [place] [address] Aug, [facility] [address] [id number] [address] [place] [address], [place] [address] Aug, [facility] [address] [id number] [address] [place] [address], [place] [address] Aug, [facility] [address] [id number] [address] [place] [address], [place] [address] Aug, [facility] [address] [id number] [address] [place] [address], [place] [address] Aug, [facility] [address] [id number] [address] [place] [address], [place] [address] Aug, [facility] [address] [id number] [address] [place] [address], [place] [address] Jul, [facility] [address] [id number] [address] [place] [address], [place] [address] Jul, [facility] [address] [id number] [address] [place] [address], [place] [address] Jul, [facility] [address] [id number] [address] [place] [address], [place] [address] Jul, [facility] [address] [id number] [address] [place] [address], [place] [address] Jul, [facility] [address] [id number] [address] [place] [address], [place] [address] Jul, [facility] [address] [id number] [address] [place] [address], [place] [address] 17 Jul, 2011 [facility] [address] [id number] [address] [place] [address], [place] [address] Jul, [facility] [address] [id number] [address] [place] [address], [place] [address] Jul, [facility] [address] [id number] [address] [place] [address], [place] [address] Jul, [facility] [address] [id number] [address] [place] [address], [place] [address] Jun, [facility] [address] [id number] [address] [place] [address], [place] [address] Jun, [facility] [address] [id number] [address] [place] [address], [place] [address] Jun, [facility] [address] [id number] [address] [place] [address], [place] [address] Jun, [facility] [address] [id number] [address] [place] [address], [place] [address] May, [facility] [address] [id number] [address] [place] [address], [place] [address] May, [facility] [address] [id number] [address] [place] [address], [place] [address] May, [facility] [address] [id number] [address] [place] [address], [place] [address] May, [facility] [address] [id number] [address] [place] [address], [place] [address] Apr, [facility] [address] [id number] [address] [place] [address], [place] [address] Apr, [facility] [address] [id number] [address] [place] [address], [place] [address] November, [facility] [address] [id number] [address] [place] [address], [place] [address] 18 Oct, 2010 [facility] [address] [id number] [address] [place] [address], [place] [address] 17 Aug, 2010 [facility] [address] [id number] [address] [place] [address], [place] [address] 28 Jun, 2010 [facility] [address] [id number] [address] [place] [address], [place] [address] 28 Jun, 2010 [facility] [address] [id number] [address] [place] [address], [place] [address] 27 Jun, 2010 [facility] [address] [id number] [address] [place] [address], [place] [address] 03 Jun, 2010 [facility] [address] [id number] [address] [place] [address], [place] [address] 29 May, 2010 [facility] [address] [id number] [address] [place] [address], [place] [address] Apr, [facility] [address] [id number] [address] [place] [address], [place] [address] 13 Oct, 2009 [facility] [address] [id number] [address] [place] [address], [place] [address] 13 Aug, 2009 [facility] [address] [id number] [address] [place] [address], [place] [address] Jul, [facility] [address] [id number] [address] [place] [address], [place] [address] 22 Jun, 2009 [facility] [address] [id number] [address] [place] [address], [place] [address] 16 Jun, 2009 [facility] [address] [id number] [address] [place] [address], [place] [address] 14 Jun, 2009 [facility] [address] [id number] [address] [place] [address], [place] [address] 14 Jun, 2009 [facility] [address] [id number] [address] [place] [address], [place] [address] 09 May, 2009 [facility] [address] [id number] [address] [place] [address], [place] [address] Apr, [facility] [address] [facility] [id number] [address] [place] [id number] 15 Mar, 2009 [facility] [address] [facility] [id number] [address] [place] [id number] 14 Mar, 2009 [facility] [address] [facility] [id number] [address] [place] [id number] Dec, IMMUNIZATIONS No Known Immunizations SOCIAL HISTORY Never Assessed REASON FOR VISIT Controlled Med Refill 08/27/17 PLAN OF CARE VITAL SIGNS MEDICATIONS Medication Instructions Dosage Frequency Start Date End Date Duration S campbell Tramadol HCl 50 mg Orally 3 times a day 1 tablet 8h Jun, 28 days Active RESULTS No Results PROCEDURES No [...]
--- OUTSIDE RECORDS SUMMARY | 2019-09-01 05:27 | XMS REPORT ---
Author Olivia Eason Organization [employer] Address Unknown Phone Unavailable Care Team Providers Care Staple Shear Operator Name Role Phone TYRELL BARILLAS CP Unavailable [...]
--- OUTSIDE RECORDS SUMMARY | 2019-09-01 05:27 | XMS REPORT ---
Author Olivia Eason Organization [employer] Address Unknown Phone Unavailable Care Team Providers Care Senior Online Marketing Manager Name Role Phone SHOSHANA BARILLAS CP Unavailable [...] Active Problem Raynaud disease I73.00 Active Assessment Neuropathy G62.9 Active Assessment Edema R60.9 Active Problem Fibromyalgia M79.7 Active Medications Medication Code System Code Instructions Start Date End Date Status Dosage Hydrochlorothiazide [facility] [address]-40 25 MG Orally once a day every other day November 06, 2015 1 tablet Neurontin [facility] [address]-46 100 MG Orally Once a day at bedti in October 15, 2015 1 [place] Amlod[place]ylate [place] 25642323215 5 MG TAKE ONE TABLET BY MOUTH DAILY Symbicort [facility] 35339661703 160-4.5 MCG/ACT INHALE TWO PUFFS BY MOUTH TWICE DAILY Abilify [facility] [address]-83 5 MG TAKE ONE T ABLET BY MOUTH DAILY Misc. Devices ND 0 N/A 4 times a day as neede jazmine Caballero to sign for Shoshana May 16, 2015 Nebulizer machine Meloxicam ND 94588976737 15 MG TAKE ONE T ABLET BY MOUTH DAILY NEEDED Loratadine ND 53062887854 10 MG take 1 ta blet by Oral route 1 time per day take at hs for allergies Amitriptyline HCl NDC [address]-06 25 MG TAKE ONE TABLET BY MOUTH AT BEDTIME Albuterol Sulfate [facility] [address]-62 (2.5 MG/3ML) 0 .083% Inhalation 4 times a day as Needed 3 ml Lancets ND 0 Mar 28, 2013 2 times pe r day Nicoderm CQ [facility] [address]-26 21 MG/24HR Transdermal Once a day Jun 14, 2015 1 patch to skin Premarin [facility] 44584320164 0.625 MG/GM USE 1 GRAM BY VAGINALLY ROUTE ON EXTERNAL GENITALS ONCE DAILY FOR 14 DAYS THEN DECREASE TO THREE TIMES A WEEK THEREAFTER tramadol ND 0 50 mg by oral route 3 times a day October 04 5 1 tablet as needed for pain Pantoprazole Sodium [facility] 92681218393 40 MG TAKE ONE TABLET BY MOUTH DAILY Clonazepam [facility] [address]-72 0.5 MG TAKE O NE TO TWO TABLETS BY MOUTH ONCE OR TWICE DAILY NEEDED FOR ANXIETY ProAir HFA [facility] 74828251541 108 (90 Base) MCG/ACT INHALE TWO PUFFS BY MOUTH EVERY 6 HOURS NEEDED FOR WHEEZING Metformin HCl [facility] [address]-20 500 MG Orally Twice a day 1 tablet with meals Duloxetine HCl [facility] [address]-78 60 mg GEETHA E ONE CAPSULE BY MOUTH ONCE DAILY Procedures Procedure Coding System Code Date Office Visit, Est Pt., Level 3 CPT-4 94982 A pri 2015 Vital Signs Date/Time: November 06, 2015 Temperature 98.2 F Weight 204.0 lbs Height 66.0 in BMI 32.92 Index Blood Pressure Diastolic 96 mmHg Blood Pressure Systolic 140 mmHg Cardiac Monitoring Heart Rate 88 bpm Results No Known Results Summary Purpose [employer] Submission
--- OUTSIDE RECORDS SUMMARY | 2019-09-01 05:27 | XMS REPORT ---
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 [id number] [address] [place] [address], [place] [address] Mar, 2013 [facility] [address] [id number] [address] [place] [address], [place] [address] Mar, 2013 [facility] [address] [id number] [address] [place] [address], [place] [address] Mar, 2013 [facility] [address] [id number] [address] [place] [address], [place] [address] Mar, 2013 [facility] [address] [id number] [address] [place] [address], [place] [address] Mar, 2013 [facility] [address] [id number] [address] [place] [address], [place] [address] Mar, 2013 [facility] [address] [id number] [address] [place] [address], [place] [address] Mar, 2013 [facility] [address] [id number] [address] [place] [address], [place] [address] Mar, 2013 [facility] [address] [id number] [address] [place] [address], [place] [address] Mar, 2013 [facility] [address] [id number] [address] [place] [address], [place] [address] Mar, 2013 [facility] [address] [id number] [address] [place] [address], [place] [address] Feb, [facility] [address] [id number] [address] [place] [address] [place] [address] Feb, [facility] [address] [id number] [facility] [place] [address] Jan, [facility] [address] [id number] [address] [place] [address], [place] [address] Jan, [facility] [address] [id number] [address] [place] [address], [place] [address] Jan, [facility] [address] [id number] [address] [place] [address], [place] [address] Jan, [facility] [address] [id number] [address] [place] [address], [place] [address] Dec, [facility] [address] [id number] [address] [place] [address], [place] [address] Dec, [facility] [address] [id number] [address] [place] [address], [place] [address] Dec, [facility] [address] [id number] [address] [place] [address], [place] [address] Dec, [facility] [address] [id number] [address] [place] [address], [place] [address] Dec, [facility] [address] [id number] [address] [place] [address], [place] [address] Dec, [facility] [address] [id number] [address] [place] [address], [place] [address] November, [facility] [address] [id number] [address] [place] [address], [place] [address] November, [facility] [address] [id number] [address] [place] [address], [place] [address] November, [facility] [address] [id number] [address] [place] [address], [place] [address] November, [facility] [address] [id number] [address] [place] [address], [place] [address] November, [facility] [address] [id number] [address] [place] [address], [place] [address] November, [facility] [address] [place] [id number] November, [facility] [address] [id number] [address] [place] [address], [place] [address] November, [facility] [address] [id number] [address] [place] [address], [place] [address] November, [facility] [address] [id number] [address] [place] [address], [place] [address] November, [facility] [address] [id number] [address] [place] [address], [place] [address] November, [facility] [address] [id number] [address] [place] [address], [place] [address] November, [facility] [address] [id number] [address] [place] [address], [place] [address] Oct, [facility] [address] [id number] [address] [place] [address], [place] [address] Oct, [facility] [address] [id number] [address] [place] [address], [place] [address] Oct, [facility] [address] [id number] [address] [place] [address], [place] [address] Oct, [facility] [address] [id number] [address] [place] [address], [place] [address] Oct, [facility] [address] [id number] [address] [place] [address], [place] [address] Oct, [facility] [address] [id number] [address] [place] [address], [place] [address] Oct, [facility] [address] [id number] [address] [place] [address], [place] [address] Oct, [facility] [address] [id number] [address] [place] [address], [place] [address] Oct, [facility] [address] [id number] [facility] [place] [address] Oct, [facility] [address] [id number] [address] [place] [address], [place] [address] Oct, [facility] [address] [id number] [address] [place] [address], [place] [address] Oct, [facility] [address] [id number] [address] [place] [address], [place] [address] Oct, [facility] [address] [id number] [address] [place] [address], [place] [address] Oct, [facility] [address] [id number] [address] [place] [address], [place] [address] Oct, [facility] [address] [id number] [address] [place] [address], [place] [address] Sep, [facility] [address] [id number] [address] [place] [address], [place] [address] Sep, [facility] [address] [id number] [address] [place] [address], [place] [address] Sep, [facility] [address] [id number] [address] [place] [address], [place] [address] Sep, [facility] [address] [id number] [address] [place] [address], [place] [address] Aug, [facility] [address] [id number] [address] [place] [address], [place] [address] Aug, [facility] [address] [id number] [address] [place] [address], [place] [address] Aug, [facility] [address] [id number] [address] [place] [address], [place] [address] Aug, [facility] [address] [id number] [address] [place] [address], [place] [address] Jul, [facility] [address] [id number] [address] [place] [address], [place] [address] Jul, [facility] [address] [id number] [address] [place] [address], [place] [address] Jul, [facility] [address] [id number] [address] [place] [address], [place] [address] Jul, [facility] [address] [id number] [address] [place] [address], [place] [address] Jul, [facility] [address] [id number] [address] [place] [address], [place] [address] Jul, [facility] [address] [id number] [address] [place] [address], [place] [address] Jul, [facility] [address] [id number] [address] [place] [address], [place] [address] Jul, [facility] [address] [id number] [address] [place] [address], [place] [address] Jul, [facility] [address] [id number] [address] [place] [address], [place] [address] Jul, [facility] [address] [id number] [address] [place] [address], [place] [address] Jul, [facility] [address] [id number] [address] [place] [address], [place] [address] Jul, [facility] [address] [id number] [address] [place] [address], [place] [address] Jul, [facility] [address] [id number] [address] [place] [address], [place] [address] Jul, [facility] [address] [id number] [address] [place] [address], [place] [address] Jun, [facility] [address] [id number] [address] [place] [address], [place] [address] Jun, [facility] [address] [id number] [address] [place] [address], [place] [address] Jun, [facility] [address] [id number] [address] [place] [address], [place] [address] Jun, [facility] [address] [id number] [address] [place] [address], [place] [address] May, [facility] [address] [id number] [address] [place] [address], [place] [address] May, [facility] [address] [id number] [address] [place] [address], [place] [address] May, [facility] [address] [id number] [address] [place] [address], [place] [address] May, [facility] [address] [id number] [address] [place] [address], [place] [address] May, [facility] [address] [id number] [address] [place] [address], [place] [address] May, [facility] [address] [id number] [address] [place] [address], [place] [id number] May, [facility] [address] [id number] [address] [place] [address], [place] [id number] May, [facility] [address] [id number] [address] [place] [address], [place] [id number] Apr, [facility] [address] [id number] [address] [place] [address], [place] [id number] Apr, [facility] [address] [id number] [address] [place] [address], [place] [id number] Apr, [facility] [address] [id number] [address] [place] [address], [place] [id number] Apr, [facility] [address] [id number] [address] [place] [address], [place] [id number] Apr, [facility] [address] [id number] [address] [place] [address], [place] [id number] Apr, [facility] [address] [id number] [address] [place] [address], [place] [id number] 30 Mar, 2012 [facility] [address] [id number] [address] [place] [address], [place] [id number] 26 Mar, 2013 [facility] [address] [id number] [address] [place] [address], [place] [id number] 20 Mar, 2013 [facility] [address] [id number] [address] [place] [address], [place] [id number] 17 Mar, 2013 [facility] [address] [id number] [address] [place] [address], [place] [id number] 16 Mar, 2013 [facility] [address] [id number] [address] [place] [address], [place] [id number] 05 Mar, 2013 [facility] [address] [id number] [address] [place] [address], [place] [id number] Feb, [facility] [address] [id number] [address] [place] [address], [place] [id number] Feb, [facility] [address] [id number] [address] [place] [address], [place] [id number] Feb, [facility] [address] [id number] [address] [place] [address], [place] [id number] Feb, [facility] [address] [id number] [address] [place] [address], [place] [id number] Jan, [facility] [address] [id number] [address] [place] [address], [place] [id number] Jan, [facility] [address] [id number] [address] [place] [address], [place] [id number] Jan, [facility] [address] [id number] [address] [place] [address], [place] [id number] Jan, [facility] [address] [id number] [address] [place] [address], [place] [id number] Jan, [facility] [address] [id number] [address] [place] [address], [place] [id number] Dec, [facility] [address] [id number] [address] [place] [address], [place] [id number] Dec, [facility] [address] [id number] [address] [place] [address], [place] [id number] Dec, [facility] [address] [id number] [address] [place] [address], [place] [id number] November, [facility] [address] [id number] [address] [place] [address], [place] [id number] November, [facility] [address] [id number] [address] [place] [address], [place] [id number] November, [facility] [address] [id number] [address] [place] [address], [place] [id number] Oct, [facility] [address] [id number] [address] [place] [address], [place] [id number] Oct, [facility] [address] [id number] [address] [place] [address], [place] [id number] Oct, [facility] [address] [id number] [address] [place] [address], [place] [id number] Oct, [facility] [address] [id number] [address] [place] [address], [place] [id number] 18 Oct, 2012 [facility] [address] [id number] [address] [place] [address], [place] [id number] 17 Oct, 2012 [facility] [address] [id number] [address] [place] [address], [place] [id number] 15 Oct, 2012 [facility] [address] [id number] [address] [place] [address], [place] [id number] Sep, [facility] [address] [id number] [address] [place] [address], [place] [id number] Sep, [facility] [address] [id number] [address] [place] [address], [place] [id number] Sep, [facility] [address] [id number] [address] [place] [address], [place] [id number] Sep, [facility] [address] [id number] [address] [place] [address], [place] [id number] Aug, [facility] [address] [id number] [address] [place] [address], [place] [id number] Aug, [facility] [address] [id number] [address] [place] [address], [place] [id number] Aug, [facility] [address] [id number] [address] [place] [address], [place] [id number] Aug, [facility] [address] [id number] [address] [place] [address], [place] [id number] Aug, [facility] [address] [id number] [address] [place] [address], [place] [address] Aug, [facility] [address] [id number] [address] [place] [address], [place] [address] Jul, [facility] [address] [id number] [address] [place] [address], [place] [address] Jul, [facility] [address] [id number] [address] [place] [address], [place] [address] Jul, [facility] [address] [id number] [address] [place] [address], [place] [address] Jul, [facility] [address] [id number] [address] [place] [address], [place] [address] Jul, [facility] [address] [id number] [address] [place] [address], [place] [address] Jul, [facility] [address] [id number] [address] [place] [address], [place] [address] Jun, [facility] [address] [id number] [address] [place] [address], [place] [address] Jun, [facility] [address] [id number] [address] [place] [address], [place] [address] Jun, [facility] [address] [id number] [address] [place] [address], [place] [address] Jun, [facility] [address] [id number] [address] [place] [address], [place] [address] Jun, [facility] [address] [id number] [address] [place] [address], [place] [address] Jun, [facility] [address] [id number] [address] [place] [address], [place] [address] May, [facility] [address] [id number] [address] [place] [address], [place] [address] May, [facility] [address] [id number] [address] [place] [address], [place] [address] May, [facility] [address] [id number] [address] [place] [address], [place] [id number] May, [facility] [address] [id number] [address] [place] [address], [place] [address] May, [facility] [address] [id number] [address] [place] [address], [place] [address] May, [facility] [address] [id number] [address] [place] [address], [place] [address] May, [facility] [address] [id number] [address] [place] [address], [place] [address] May, [facility] [address] [id number] [address] [place] [address], [place] [address] May, [facility] [address] [id number] [address] [place] [address], [place] [address] May, [facility] [address] [id number] [address] [place] [address], [place] [address] Apr, [facility] [address] [id number] [address] [place] [address], [place] [address] Apr, [facility] [address] [id number] [address] [place] [address], [place] [address] Apr, [facility] [address] [id number] [address] [place] [address], [place] [address] 23 Apr, 2012 [facility] [address] [id number] [address] [place] [address], [place] [address] 16 Apr, 2012 [facility] [address] [id number] [address] [place] [address], [place] [address] 16 Apr, 2012 [facility] [address] [id number] [address] [place] [address], [place] [id number] 15 Apr, 2012 [facility] [address] [id number] [address] [place] [address], [place] [address] 15 Apr, 2012 [facility] [address] [id number] [address] [place] [address], [place] [address] 05 Apr, 2012 [facility] [address] [id number] [address] [place] [address], [place] [address] 28 Mar, 2012 [facility] [address] [id number] [address] [place] [address], [place] [id number] 26 Mar, 2012 [facility] [address] [id number] [address] [place] [address], [place] [address] 25 Mar, 2012 [facility] [address] [id number] [address] [place] [address], [place] [id number] 19 Mar, 2012 [facility] [address] [id number] [address] [place] [address], [place] [id number] 18 Mar, 2012 [facility] [address] [id number] [address] [place] [address], [place] [address] 05 Mar, 2012 [facility] [address] [id number] [address] [place] [address], [place] [address] 28 Feb, 2012 [facility] [address] [id number] [address] [place] [address], [place] [address] 27 Feb, 2012 [facility] [address] [id number] [address] [place] [address], [place] [address] Feb, [facility] [address] [id number] [address] [place] [address], [place] [address] Jan, [facility] [address] [id number] [address] [place] [address], [place] [address] Jan, [facility] [address] [id number] [address] [place] [address], [place] [address] Jan, [facility] [address] [id number] [address] [place] [address], [place] [address] Jan, [facility] [address] [id number] [address] [place] [address], [place] [address] Dec, [facility] [address] [id number] [address] [place] [address], [place] [address] November, [facility] [address] [id number] [address] [place] [address], [place] [address] November, [facility] [address] [id number] [address] [place] [address], [place] [address] November, [facility] [address] [id number] [address] [place] [address], [place] [address] November, [facility] [address] [id number] [address] [place] [address], [place] [address] November, [facility] [address] [id number] [address] [place] [address], [place] [address] November, [facility] [address] [id number] [address] [place] [address], [place] [address] Oct, [facility] [address] [id number] [address] [place] [address], [place] [address] Oct, [facility] [address] [id number] [address] [place] [address], [place] [address] Sep, [facility] [address] [id number] [address] [place] [address], [place] [address] Sep, [facility] [address] [id number] [address] [place] [address], [place] [address] Sep, [facility] [address] [id number] [address] [place] [address], [place] [address] 29 Aug, 2011 [facility] [address] [id number] [address] [place] [address], [place] [address] 29 Aug, 2011 [facility] [address] [id number] [address] [place] [address], [place] [address] 14 Aug, 2011 [facility] [address] [id number] [address] [place] [address], [place] [address] Aug, [facility] [address] [id number] [address] [place] [address], [place] [address] Aug, [facility] [address] [id number] [address] [place] [address], [place] [address] Aug, [facility] [address] [id number] [address] [place] [address], [place] [address] Jul, [facility] [address] [id number] [address] [place] [address], [place] [address] Jul, [facility] [address] [id number] [address] [place] [address], [place] [id number] Jul, [facility] [address] [id number] [address] [place] [address], [place] [address] Jul, [facility] [address] [id number] [address] [place] [address], [place] [id number] Jul, [facility] [address] [id number] [address] [place] [address], [place] [address] 18 Jul, 2011 [facility] [address] [id number] [address] [place] [address], [place] [address] 17 Jul, 2011 [facility] [address] [id number] [address] [place] [address], [place] [address] Jul, [facility] [address] [id number] [address] [place] [address], [place] [address] 10 Jul, 2011 [facility] [address] [id number] [address] [place] [address], [place] [address] Jul, [facility] [address] [id number] [address] [place] [address], [place] [address] Jun, [facility] [address] [id number] [address] [place] [address], [place] [address] Jun, [facility] [address] [id number] [address] [place] [address], [place] [address] Jun, [facility] [address] [id number] [address] [place] [address], [place] [address] Jun, [facility] [address] [id number] [address] [place] [address], [place] [address] May, [facility] [address] [id number] [address] [place] [address], [place] [address] May, [facility] [address] [id number] [address] [place] [address], [place] [address] May, [facility] [address] [id number] [address] [place] [address], [place] [address] May, [facility] [address] [id number] [address] [place] [address], [place] [address] Apr, [facility] [address] [id number] [address] [place] [address], [place] [address] Apr, [facility] [address] [id number] [address] [place] [address], [place] [address] November, [facility] [address] [id number] [address] [place] [address], [place] [address] Oct, [facility] [address] [id number] [address] [place] [address], [place] [address] Aug, [facility] [address] [id number] [address] [place] [address], [place] [address] Jun, [facility] [address] [id number] [address] [place] [address], [place] [address] Jun, [facility] [address] [id number] [address] [place] [address], [place] [address] 27 Jun, 2010 [facility] [address] [id number] [address] [place] [address], [place] [address] 03 Jun, 2010 [facility] [address] [id number] [address] [place] [address], [place] [address] 29 May, 2010 [facility] [address] [id number] [address] [place] [address], [place] [address] 27 Apr, 2010 [facility] [address] [id number] [address] [place] [address], [place] [address] 13 Oct, 2009 [facility] [address] [id number] [address] [place] [address], [place] [address] 13 Aug, 2009 [facility] [address] [id number] [address] [place] [address], [place] [address] 20 Jul, 2009 [facility] [address] [id number] [address] [place] [address], [place] [address] 22 Jun, 2009 [facility] [address] [id number] [address] [place] [address], [place] [address] 16 Jun, 2009 [facility] [address] [id number] [address] [place] [address], [place] [address] 14 Jun, 2009 [facility] [address] [id number] [address] [place] [id number] 14 Jun, 2009 [facility] [address] [id number] [address] [place] [address], [place] [address] 09 May, 2009 [facility] [address] [id number] [address] [place] [id number] 20 Apr, 2009 [facility] [address] [id number] [address] [place] [address], [place] [address] 15 Mar, 2009 [facility] [address] [id number] [address] [place] [id number] 14 Mar, 2009 [facility] [address] [id number] [address] [place] [id number] Dec, IMMUNIZATIONS No Known Immunizations SOCIAL HISTORY Never Assessed REASON FOR VISIT Needs testing done for insurance - [facility] Hu, Tooth ache for several months PLAN OF CARE Activity Details Follow Up 2 Months Reason:DM VITAL SIGNS Height 66.0 in 2017-03-04 Weight 203.5 lbs 2017-03-04 Temperature 97.4 degrees Fahrenheit 2017-03-04 Heart Rate 85 bpm 2017-03-04 Respiratory Rate 16 2017-03-04 Oximetry 96 % 2017-03-04 BMI 32.84 kg/m2 2017-03-04 Blood pressure systolic 130 mmHg 2017-03-04 Blood pressure diastolic 82 mmHg 2017-03-04 MEDICATIONS Medication Instructions Dosage Frequency Start Date End Date Duration S tatus Albuterol Sulfate (2.5 MG/3ML) 0.083% Inhalation 4 times a day as N eeded 3 ml Active Duloxetine HCl 60 MG TAKE ONE CAPSULE BY MOUTH ONCE DAILY Active Pantoprazole Sodium 40 MG TAKE ONE TABLET BY MOUTH DAILY 90 Active Meloxicam 15 MG Orally Once a day 1 tablet as needed 24h 90 days Active Clonazepam 0.5 MG Orally daily. MAX 60/month take 1-2 tabs daily up to twice a day prn anxiety Active Symbicort 160-4.5 MCG/ACT INHALE TWO PUFFS BY MOUTH TWICE DAILY 30 Active Abilify 5 mg Orally Once a day 1/2 tablet 24h Active Tramadol HCl 50 mg Orally 3 times a day 1 tablet 8h Jun, 28 days Active Triamcinolone Acetonide 0.5 % Externally Twice a day 1 appli cation to affected area 12h Jul, 10 days Active Metformin HCl 500 mg Orally Once a day 1 tablet with meal 24h Active Ventolin HFA 108 (90 Base) MCG/ACT Inhalation every 4 hrs 2 puffs a s needed 4h Active Misc. Devices N/A Nebulizer machine May, Active Hydrocodone-Acetaminophen 7.5-325 MG Orally Once a day at be dtime 1 tablet as needed Feb, Active Nicoderm CQ 21 MG/24HR Transdermal Once a day 1 patch to skin 24h Jun, 30 days Active Lancets 2 times per day Mar, Act ariella Lisinopril-Hydrochlorothiazide 20-25 MG Orally Once a day 1 tablet 24h Jul, 90 days Active Neurontin 100 MG Orally Once a day at bedtime 1 capsule Oct, Active Amoxicillin 500 mg Orally 3 times a day 1 capsule 8h Feb, 17 2 Mar, 2017 10 day(s) Active RESULTS Name Result Date Reference Range LIPID PANEL 2017-03-04 Cholesterol, Total 177 100-199 Triglycerides 71 0-149 HDL Cholesterol 80 >39 VLDL Cholesterol Iraj 14 5-40 LDL Cholesterol Calc 83 0-99 Comment: CMP 2017-03-04 Glucose, Serum 103 65-99 BUN 14 8-27 Creatinine, Serum 0.76 0.57-1.00 eGFR If NonAfricn Am 83 >59 eGFR If Africn Am 95 >59 BUN/Creatinine Ratio 18 12-28 Sodium, Serum 139 134-144 Potassium, Serum 4.4 3.5-5.2 Chloride, Serum 95 96-106 Carbon Dioxide, Total 26 18-29 Calcium, Serum 9.6 8.7-10.3 Protein, Total, Serum 6.9 6.0-8.5 Albumin, Serum 4.4 3.6-4.8 Globulin, Total 2.5 1.5-4.5 A/G Ratio 1.8 1.2-2.2 Bilirubin, Total 0.4 0.0-1.2 Alkaline Phosphatase, S 67 39-117 AST (SGOT) 16 0-40 ALT (SGPT) 18 0-32 PROCEDURES Procedure Date Ordered Result Body Site MEASURE BLOOD OXYGEN LEVEL Mar 04, 2017 LAB NOT BILLED BY [facility] Mar 04, 2017 [facility] VISIT ESTABLISHED PATIENT Mar 04, 2017 VENIPUNCT, ROUTINE* Mar 04, 2017 INSTRUCTIONS MEDICATIONS ADMINISTERED No Known Medications [...]
--- OUTSIDE RECORDS SUMMARY | 2019-09-01 05:28 | XMS REPORT ---
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 [address] [id number] [address] [place] [address], [place] [address] Apr, [facility] [address] [id number] [address] [place] [address], [place] [address] Apr, [facility] [address] [id number] [address] [place] [address] Apr, [facility] [address] [id number] [address] [place] [address] Apr, [facility] [address] [id number] [address] [place] [address], [place] [address] Apr, [facility] [address] [id number] [address] [place] [address] Apr, [facility] [address] [id number] [address] [place] [address] Apr, [facility] [address] [id number] [address] [place] [address], [place] [address] 02 Apr, 2014 [facility] [address] [id number] [address] [place] [address], [place] [address] 29 Mar, 2013 [facility] [address] [id number] [address] [place] [address], [place] [address] Mar, 2013 [facility] [address] [id number] [address] [place] [address], [place] [address] Mar, 2013 [facility] [address] [id number] [address] [place] [address], [place] [address] 29 Mar, 2013 [facility] [address] [id number] [address] [place] [address], [place] [address] Mar, 2013 [facility] [address] [id number] [address] [place] [address], [place] [address] Mar, 2013 [facility] [address] [id number] [address] [place] [address], [place] [address] Mar, 2013 [facility] [address] [id number] [address] [place] [address], [place] [address] Mar, 2013 [facility] [address] [id number] [address] [place] [address], [place] [address] Mar, 2013 [facility] [address] [id number] [address] [place] [address], [place] [address] Mar, 2013 [facility] [address] [id number] [address] [place] [address], [place] [address] Mar, 2013 [facility] [address] [id number] [address] [place] [address], [place] [address] Mar, 2013 [facility] [address] [id number] [address] [place] [address], [place] [address] Feb, [facility] [address] [id number] [address] [place] [address], [place] [address] Feb, [facility] [address] [id number] [address] [place] [address], [place] [address] Jan, [facility] [address] [id number] [address] [place] [address], [place] [address] Jan, [facility] [address] [id number] [address] [place] [address], [place] [address] Jan, [facility] [address] [id number] [address] [place] [address], [place] [address] Jan, [facility] [address] [id number] [address] [place] [address], [place] [address] Dec, [facility] [address] [id number] [address] [place] [address], [place] [address] Dec, [facility] [address] [id number] [address] [place] [address], [place] [address] Dec, [facility] [address] [id number] [address] [place] [address], [place] [address] Dec, [facility] [address] [id number] [address] [place] [address], [place] [address] Dec, [facility] [address] [id number] [address] [place] [address], [place] [address] Dec, [facility] [address] [id number] [address] [place] [address], [place] [address] November, [facility] [address] [id number] [address] [place] [address], [place] [address] November, [facility] [address] [id number] [address] [place] [address], [place] [address] November, [facility] [address] [id number] [address] [place] [address], [place] [address] November, [facility] [address] [id number] [address] [place] [address], [place] [address] November, [facility] [address] [id number] [address] [place] [address], [place] [address] November, [address] [id number] November, [facility] [address] [id number] [address] [place] [address], [place] [address] November, [facility] [address] [id number] [address] [place] [address], [place] [address] November, [facility] [address] [id number] [address] [place] [address], [place] [address] November, [facility] [address] [id number] [address] [place] [address], [place] [address] November, [facility] [address] [id number] [address] [place] [address], [place] [address] November, [facility] [address] [id number] [address] [place] [address], [place] [address] Oct, [facility] [address] [id number] [address] [place] [address], [place] [address] Oct, [facility] [address] [id number] [address] [place] [address], [place] [address] Oct, [facility] [address] [id number] [address] [place] [address], [place] [address] Oct, [facility] [address] [id number] [address] [place] [address], [place] [address] Oct, [facility] [address] [id number] [address] [place] [address], [place] [address] Oct, [facility] [address] [id number] [address] [place] [address], [place] [address] Oct, [facility] [address] [id number] [address] [place] [address], [place] [address] Oct, [facility] [address] [id number] [address] [place] [address], [place] [address] Oct, [facility] [address] [id number] [address] [place] [address], [place] [address] Oct, [facility] [address] [id number] [address] [place] [address], [place] [address] Oct, [facility] [address] [id number] [address] [place] [address], [place] [address] Oct, [facility] [address] [id number] [address] [place] [address], [place] [address] Oct, [facility] [address] [id number] [address] [place] [address], [place] [address] Oct, [facility] [address] [id number] [address] [place] [address], [place] [address] Oct, [facility] [address] [id number] [address] [place] [address], [place] [address] Sep, [facility] [address] [id number] [address] [place] [address], [place] [address] Sep, [facility] [address] [id number] [address] [place] [address], [place] [address] Sep, [facility] [address] [id number] [address] [place] [address], [place] [address] Sep, [facility] [address] [id number] [address] [place] [address], [place] [address] Aug, [facility] [address] [id number] [address] [place] [address], [place] [address] Aug, [facility] [address] [id number] [address] [place] [address], [place] [address] Aug, [facility] [address] [id number] [address] [place] [address], [place] [address] Aug, [facility] [address] [id number] [address] [place] [address], [place] [address] Jul, [facility] [address] [id number] [address] [place] [address], [place] [address] Jul, [facility] [address] [id number] [address] [place] [address], [place] [address] Jul, [facility] [address] [id number] [address] [place] [address], [place] [address] Jul, [facility] [address] [id number] [address] [place] [address], [place] [phone] Jul, [facility] [address] [id number] [address] [place] [address], [place] [address] Jul, [facility] [address] [id number] [address] [place] [address], [place] [address] Jul, [facility] [address] [id number] [address] [place] [address], [place] [address] Jul, [facility] [address] [id number] [address] [place] [address], [place] [address] Jul, [facility] [address] [id number] [address] [place] [address], [place] [address] Jul, [facility] [address] [id number] [address] [place] [address], [place] [address] Jul, [facility] [address] [id number] [address] [place] [address], [place] [address] Jul, [facility] [address] [id number] [address] [place] [address], [place] [address] Jul, [facility] [address] [id number] [address] [place] [address], [place] [address] Jul, [facility] [address] [id number] [address] [place] [address], [place] [address] Jun, [facility] [address] [id number] [address] [place] [address], [place] [address] Jun, [facility] [address] [id number] [address] [place] [address], [place] [address] Jun, [facility] [address] [id number] [address] [place] [address], [place] [address] Jun, [facility] [address] [id number] [address] [place] [address], [place] [address] May, [facility] [address] [id number] [address] [place] [address], [place] [address] May, [facility] [address] [id number] [address] [place] [address], [place] [address] May, [facility] [address] [id number] [address] [place] [address], [place] [address] May, [facility] [address] [id number] [address] [place] [id number] May, [facility] [address] [id number] [address] [place] [address], [place] [id number] May, [facility] [address] [id number] [address] [place] [address], [place] [id number] May, [facility] [address] [id number] [address] [place] [address], [place] [phone] May, [facility] [address] [id number] [address] [place] [address], [place] [id number] Apr, [facility] [address] [id number] [address] [place] [address], [place] [id number] Apr, [facility] [address] [id number] [address] [place] [address], [place] [id number] Apr, [facility] [address] [id number] [address] [place] [id number] Apr, [facility] [address] [id number] [address] [place] [id number] Apr, [facility] [address] [id number] [address] [place] [address], [place] [id number] Apr, [facility] [address] [id number] [address] [place] [address], [place] [id number] 30 Mar, 2013 [facility] [address] [id number] [address] [place] [address], [place] [id number] Mar, [facility] [address] [id number] [address] [place] [address], [place] [id number] 20 Mar, 2013 [facility] [address] [id number] [address] [place] [address], [place] [id number] 17 Mar, 2013 [facility] [address] [id number] [address] [place] [address], [place] [id number] 16 Mar, 2013 [facility] [address] [id number] [address] [place] [address], [place] [id number] 05 Mar, 2013 [facility] [address] [id number] [address] [place] [address], [place] [id number] Feb, [facility] [address] [id number] [address] [place] [address], [place] [phone] Feb, [facility] [address] [id number] [address] [place] [address], [place] [id number] Feb, [facility] [address] [id number] [address] [place] [address], [place] [id number] Feb, [facility] [address] [id number] [address] [place] [address], [place] [phone] Jan, [facility] [address] [id number] [address] [place] [address], [place] [id number] Jan, [facility] [address] [id number] [address] [place] [address], [place] [id number] Jan, [facility] [address] [id number] [address] [place] [address], [place] [phone] Jan, [facility] [address] [id number] [address] [place] [address], [place] [phone] Jan, [facility] [address] [id number] [address] [place] [address], [place] [phone] Dec, [facility] [address] [id number] [address] [place] [address], [place] [phone] Dec, [facility] [address] [id number] [address] [place] [address], [place] [phone] Dec, [facility] [address] [id number] [address] [place] [address], [place] [phone] November, [facility] [address] [id number] [address] [place] [address], [place] [phone] November, [facility] [address] [id number] [address] [place] [address], [place] [phone] November, [facility] [address] [id number] [address] [place] [address], [place] [phone] Oct, [facility] [address] [id number] [address] [place] [address], [place] [phone] Oct, [facility] [address] [id number] [address] [place] [address], [place] [phone] Oct, [facility] [address] [id number] [address] [place] [address], [place] [phone] Oct, [facility] [address] [id number] [address] [place] [address], [place] [phone] Oct, [facility] [address] [id number] [address] [place] [address], [place] [phone] Oct, [facility] [address] [id number] [address] [place] [address], [place] [id number] Oct, [facility] [address] [id number] [address] [place] [address], [place] [phone] Sep, [facility] [facility] [address] [id number] [address] [place] [address], [place] [address] Sep, [facility] [address] [id number] [address] [place] [address], [place] [phone] Sep, [facility] [address] [id number] [address] [place] [address], [place] [address] Sep, [facility] [address] [id number] [address] [place] [address], [place] [address] Aug, [facility] [address] [id number] [address] [place] [address] [place] [phone] Aug, [facility] [address] [id number] [address] [place] [address], [place] [address] Aug, [facility] [address] [id number] [address] [place] [address], [place] [address] Aug, [facility] [address] [id number] [address] [place] [address], [place] [phone] Aug, [facility] [address] [id number] [address] [place] [address], [place] [phone] Aug, [facility] [address] [id number] [address] [place] [address], [place] [address] Jul, [facility] [address] [id number] [address] [place] [address], [place] [phone] Jul, [facility] [address] [id number] [address] [place] [address], [place] [address] Jul, [facility] [address] [id number] [address] [place] [address], [place] [address] Jul, [facility] [address] [id number] [address] [place] [address], [place] [phone] Jul, [facility] [address] [id number] [address] [place] [address], [place] [phone] Jul, [facility] [address] [id number] [address] [place] [address], [place] [address] Jun, [facility] [address] [id number] [address] [place] [address], [place] [address] Jun, [facility] [address] [id number] [address] [place] [address], [place] [phone] Jun, [facility] [address] [id number] [address] [place] [address], [place] [address] Jun, [facility] [address] [id number] [address] [place] [address], [place] [phone] Jun, [facility] [address] [id number] [address] [place] [address], [place] [phone] Jun, [facility] [address] [id number] [address] [place] [address], [place] [phone] May, [facility] [address] [id number] [address] [place] [address], [place] [address] May, [facility] [address] [id number] [address] [place] [address], [place] [address] May, [facility] [address] [id number] [address] [place] [address], [place] [address] May, [facility] [address] [id number] [address] [place] [address], [place] [phone] May, [facility] [address] [id number] [address] [place] [address], [place] [address] May, [facility] [address] [id number] [address] [place] [address], [place] [address] May, [facility] [address] [id number] [address] [place] [address], [place] [address] May, [facility] [address] [id number] [address] [place] [address], [place] [address] May, [facility] [address] [id number] [address] [place] [address], [place] [phone] May, [facility] [address] [id number] [address] [place] [phone] Apr, [facility] [address] [id number] [address] [place] [address], [place] [address] Apr, [facility] [address] [id number] [address] [place] [address], [place] [address] Apr, [facility] [address] [id number] [address] [place] [phone] Apr, [facility] [address] [id number] [address] [place] [phone] 16 Apr, 2012 [facility] [address] [id number] [address] [place] [address], [place] [phone] 16 Apr, 2012 [facility] [address] [id number] [address] [place] [address], [place] [phone] 15 Apr, 2012 [facility] [address] [id number] [address] [place] [address], [place] [phone] 15 Apr, 2012 [facility] [address] [id number] [address] [place] [address], [place] [phone] 05 Apr, 2012 [facility] [address] [id number] [address] [place] [address], [place] [phone] 28 Mar, 2012 [facility] [address] [id number] [address] [place] [address], [place] [phone] 26 Mar, 2012 [facility] [address] [id number] [address] [place] [address], [place] [phone] 25 Mar, 2012 [facility] [address] [id number] [address] [place] [address], [place] [phone] 19 Mar, 2012 [facility] [address] [id number] [address] [place] [address], [place] [phone] 18 Mar, 2012 [facility] [address] [id number] [address] [place] [address], [place] [phone] 05 Mar, 2012 [facility] [address] [id number] [address] [place] [address], [place] [address] Feb, [facility] [address] [id number] [address] [place] [address], [place] [address] Feb, [facility] [address] [id number] [address] [place] [address], [place] [address] Feb, [facility] [address] [id number] [address] [place] [address], [place] [address] Jan, [facility] [address] [id number] [address] [place] [address], [place] [address] Jan, [facility] [address] [id number] [address] [place] [address], [place] [phone] Jan, [facility] [address] [id number] [address] [place] [address], [place] [address] Jan, [facility] [address] [id number] [address] [place] [address], [place] [phone] Dec, [facility] [address] [id number] [address] [place] [address], [place] [address] November, [facility] [address] [id number] [address] [place] [address], [place] [address] November, [facility] [address] [id number] [address] [place] [address], [place] [address] November, [facility] [address] [id number] [address] [place] [address], [place] [address] November, [facility] [address] [id number] [address] [place] [address], [place] [address] November, [facility] [address] [id number] [address] [place] [address], [place] [phone] November, [facility] [address] [id number] [address] [place] [address], [place] [phone] Oct, [facility] [address] [id number] [address] [place] [address], [place] [address] Oct, [facility] [address] [id number] [address] [place] [address], [place] [address] Sep, [facility] [address] [id number] [address] [place] [address], [place] [address] Sep, [facility] [address] [id number] [address] [place] [address], [place] [address] Sep, [facility] [address] [id number] [address] [place] [address], [place] [address] Aug, [facility] [address] [id number] [address] [place] [address], [place] [phone] 29 Aug, 2011 [facility] [address] [id number] [address] [place] [address], [place] [address] 14 Aug, 2011 [facility] [address] [id number] [address] [place] [address], [place] [phone] 09 Aug, 2011 [facility] [address] [id number] [address] [place] [address], [place] [phone] Aug, [facility] [address] [id number] [address] [place] [address], [place] [address] Aug, [facility] [address] [id number] [address] [place] [address], [place] [address] Jul, [facility] [address] [id number] [address] [place] [address], [place] [address] Jul, [facility] [address] [id number] [address] [place] [address], [place] [address] Jul, [facility] [address] [id number] [address] [place] [address], [place] [address] Jul, [facility] [address] [id number] [address] [place] [address], [place] [phone] Jul, [facility] [address] [id number] [address] [place] [address], [place] [address] Jul, [facility] [address] [id number] [address] [place] [address], [place] [address] Jul, [facility] [address] [id number] [address] [place] [address], [place] [address] Jul, [facility] [address] [id number] [address] [place] [address], [place] [address] Jul, [facility] [address] [id number] [address] [place] [address], [place] [address] Jul, [facility] [address] [id number] [address] [place] [address], [place] [address] Jun, [facility] [address] [id number] [address] [place] [address], [place] [address] Jun, [facility] [address] [id number] [address] [place] [address], [place] [address] Jun, [facility] [address] [id number] [address] [place] [address], [place] [address] Jun, [facility] [address] [id number] [address] [place] [address], [place] [phone] 30 May, 2011 [facility] [address] [id number] [address] [place] [address], [place] [phone] May, [facility] [address] [id number] [address] [place] [address], [place] [address] May, [facility] [address] [id number] [address] [place] [address], [place] [address] May, [facility] [address] [id number] [address] [place] [address], [place] [address] Apr, [facility] [address] [id number] [address] [place] [address], [place] [address] Apr, [facility] [address] [id number] [address] [place] [address], [place] [address] November, [facility] [address] [id number] [address] [place] [address], [place] [address] Oct, [facility] [address] [id number] [address] [place] [address], [place] [address] Aug, [facility] [address] [id number] [address] [place] [address], [place] [address] Jun, [facility] [address] [id number] [address] [place] [address], [place] [address] Jun, [facility] [address] [id number] [address] [place] [address], [place] [address] Jun, [facility] [address] [id number] [address] [place] [address], [place] [address] Jun, [facility] [address] [id number] [address] [place] [phone] 29 May, 2010 [facility] [address] [id number] [address] [place] [phone] 27 Apr, 2010 [facility] [address] [id number] [address] [place] [phone] 13 Oct, 2009 [facility] [address] [id number] [address] [place] [phone] 13 Aug, 2009 [facility] [address] [id number] [address] [place] [phone] Jul, [facility] [address] [id number] [address] [place] [phone] 22 Jun, 2009 [facility] [address] [id number] [address] [place] [phone] 16 Jun, 2009 [facility] [address] [id number] [address] [place] [phone] 14 Jun, 2009 [facility] [address] [id number] [address] [place] [phone] 14 Jun, 2009 [facility] [address] [id number] [address] [place] [phone] 09 May, 2009 [facility] [address] [id number] [address] [place] [id number] 20 Apr, 2009 [facility] [address] [id number] [address] [place] [phone] 15 Mar, 2009 [facility] [address] [id number] [address] [place] [phone] 14 Mar, 2009 [facility] [address] [id number] [address] [place] [phone] 11 Dec, 2008 IMMUNIZATIONS No Known Immunizations SOCIAL HISTORY Never Assessed REASON FOR VISIT klonopin refill PLAN OF CARE VITAL SIGNS MEDICATIONS Medication Instructions Dosage Frequency Start Date End Date Duration S tatus Clonazepam 0.5 MG Orally daily. MAX 60/month [...]
--- OUTSIDE RECORDS SUMMARY | 2019-09-01 05:28 | XMS REPORT ---
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 [address], [place] [address] Apr, [facility] [address] [id number] [address] [place] [address] Apr, [facility] [address] [id number] [address] [place] [address] Apr, [facility] [address] [id number] [address] [place] [address], [place] [address] Apr, [facility] [address] [id number] [address] [place] [address], [place] [address] Apr, [facility] [address] [id number] [address] [place] [address], [place] [address] 29 Mar, 2013 [facility] [address] [id number] [address] [place] [address], [place] [address] 29 Mar, 2013 [facility] [address] [id number] [address] [place] [address], [place] [address] 29 Mar, 2013 [facility] [address] [id number] [address] [place] [address], [place] [address] 29 Mar, 2013 [facility] [address] [id number] [address] [place] [address], [place] [address] Mar, 2013 [facility] [address] [id number] [address] [place] [address], [place] [address] Mar, 2013 [facility] [address] [id number] [address] [place] [address], [place] [address] Mar, 2013 [facility] [address] [id number] [address] [place] [address], [place] [address] Mar, 2013 [facility] [address] [id number] [address] [place] [address], [place] [address] Mar, 2013 [facility] [address] [id number] [address] [place] [address], [place] [address] Mar, 2013 [facility] [address] [id number] [address] [place] [address], [place] [address] Mar, 2013 [facility] [address] [id number] [address] [place] [address], [place] [address] Mar, 2013 [facility] [address] [id number] [address] [place] [address], [place] [address] Feb, [facility] [address] [id number] [address] [place] [address], [place] [address] Feb, [facility] [address] [id number] [address] [place] [address], [place] [address] Jan, [facility] [address] [id number] [address] [place] [address], [place] [address] Jan, [facility] [address] [id number] [address] [place] [address], [place] [address] Jan, [facility] [address] [id number] [address] [place] [address], [place] [address] Jan, [facility] [address] [id number] [address] [place] [address], [place] [address] Dec, [facility] [address] [id number] [address] [place] [address], [place] [address] Dec, [facility] [address] [id number] [address] [place] [address], [place] [address] Dec, [facility] [address] [id number] [address] [place] [address], [place] [address] Dec, [facility] [address] [id number] [address] [place] [address], [place] [address] Dec, [facility] [address] [id number] [address] [place] [address], [place] [address] Dec, [facility] [address] [id number] [address] [place] [address], [place] [address] November, [facility] [address] [id number] [address] [place] [address], [place] [address] November, [facility] [address] [id number] [address] [place] [address], [place] [address] November, [facility] [address] [id number] [address] [place] [address], [place] [address] November, [facility] [address] [id number] [address] [place] [address], [place] [address] November, [facility] [address] [id number] [address] [place] [address], [place] [address] November, [address] [facility] [address] [place] [id number] November, [facility] [address] [id number] [address] [place] [address], [place] [address] November, [facility] [address] [id number] [address] [place] [address], [place] [address] November, [facility] [address] [id number] [address] [place] [address], [place] [address] November, [facility] [address] [id number] [address] [place] [address], [place] [address] November, [facility] [address] [id number] [address] [place] [address], [place] [address] November, [facility] [address] [id number] [address] [place] [address], [place] [address] Oct, [facility] [address] [id number] [address] [place] [address], [place] [address] Oct, [facility] [address] [id number] [address] [place] [address], [place] [address] Oct, [facility] [address] [id number] [address] [place] [address], [place] [address] Oct, [facility] [address] [id number] [address] [place] [address], [place] [address] Oct, [facility] [address] [id number] [address] [place] [address], [place] [address] Oct, [facility] [address] [id number] [address] [place] [address], [place] [address] Oct, [facility] [address] [id number] [address] [place] [address], [place] [address] Oct, [facility] [address] [id number] [address] [place] [address], [place] [address] Oct, [facility] [address] [id number] [address] [place] [address], [place] [address] Oct, [facility] [address] [id number] [facility] [place] [address] Oct, [facility] [address] [id number] [address] [place] [address], [place] [address] Oct, [facility] [address] [id number] [address] [place] [address], [place] [address] Oct, [facility] [address] [id number] [address] [place] [address], [place] [address] Oct, [facility] [address] [id number] [address] [place] [address], [place] [address] Oct, [facility] [address] [id number] [address] [place] [address], [place] [address] Sep, [facility] [address] [id number] [address] [place] [address], [place] [address] Sep, [facility] [address] [id number] [address] [place] [address], [place] [address] Sep, [facility] [address] [id number] [address] [place] [address], [place] [address] Sep, [facility] [address] [id number] [address] [place] [address], [place] [address] Aug, [facility] [address] [id number] [address] [place] [address], [place] [address] Aug, [facility] [address] [id number] [address] [place] [address], [place] [address] Aug, [facility] [address] [id number] [address] [place] [address], [place] [address] Aug, [facility] [address] [id number] [address] [place] [address], [place] [address] Jul, [facility] [address] [id number] [address] [place] [address], [place] [address] Jul, [facility] [address] [id number] [address] [place] [address], [place] [address] Jul, [facility] [address] [id number] [address] [place] [address], [place] [address] Jul, [facility] [address] [id number] [address] [place] [address], [place] [address] Jul, [facility] [address] [id number] [address] [place] [address], [place] [address] Jul, [facility] [address] [id number] [address] [place] [address], [place] [address] Jul, [facility] [address] [id number] [address] [place] [address], [place] [address] Jul, [facility] [address] [id number] [address] [place] [address], [place] [address] Jul, [facility] [address] [id number] [address] [place] [address], [place] [address] Jul, [facility] [address] [id number] [address] [place] [address], [place] [address] Jul, [facility] [address] [id number] [address] [place] [address], [place] [address] Jul, [facility] [address] [id number] [address] [place] [address], [place] [address] Jul, [facility] [address] [id number] [address] [place] [address], [place] [address] Jul, [facility] [address] [id number] [address] [place] [address], [place] [address] Jun, [facility] [address] [id number] [address] [place] [address], [place] [address] Jun, [facility] [address] [id number] [address] [place] [address], [place] [address] Jun, [facility] [address] [id number] [address] [place] [address] Jun, [facility] [address] [id number] [address] [place] [address], [place] [address] May, [facility] [address] [id number] [address] [place] [address] May, [facility] [address] [id number] [address] [place] [address], [place] [address] May, [facility] [address] [id number] [address] [place] [address] May, [facility] [address] [id number] [address] [place] [address], [place] [address] May, [facility] [address] [id number] [address] [place] [address] May, [facility] [address] [id number] [address] [place] [address] May, [facility] [address] [id number] [address] [place] [address] May, [facility] [address] [id number] [address] [place] [address] Apr, [facility] [address] [id number] [address] [place] [address] Apr, [facility] [address] [id number] [address] [place] [address] Apr, [facility] [facility] [address] [id number] [address] [place] [address] Apr, [facility] [address] [id number] [address] [place] [address] Apr, [facility] [address] [id number] [address] [place] [address] Apr, [facility] [address] [id number] [address] [place] [address], [place] [address] Mar, [facility] [address] [id number] [address] [place] [address], [place] [address] 26 Mar, 2013 [facility] [address] [id number] [address] [place] [address], [place] [address] 20 Mar, [address] [facility] [address] [id number] [address] [place] [address], [place] [address] 17 Mar, 2013 [facility] [address] [id number] [address] [place] [address], [place] [address] 16 Mar, 2013 [facility] [address] [id number] [address] [place] [address], [place] [address] 05 Mar, 2013 [facility] [address] [id number] [address] [place] [address], [place] [address] Feb, [facility] [address] [id number] [address] [place] [address], [place] [address] Feb, [facility] [address] [id number] [address] [place] [address], [place] [address] Feb, [facility] [address] [id number] [address] [place] [address], [place] [address] Feb, [facility] [address] [id number] [address] [place] [address], [place] [address] Jan, [facility] [address] [id number] [address] [place] [address], [place] [address] Jan, [facility] [address] [id number] [address] [place] [address], [place] [address] Jan, [facility] [address] [id number] [address] [place] [address], [place] [address] Jan, [facility] [address] [id number] [address] [place] [address], [place] [address] Jan, [facility] [address] [id number] [address] [place] [address], [place] [address] Dec, [facility] [address] [id number] [address] [place] [address], [place] [address] Dec, [facility] [address] [id number] [address] [place] [address], [place] [address] Dec, [facility] [address] [id number] [address] [place] [address], [place] [address] November, [facility] [address] [id number] [address] [place] [address], [place] [address] November, [facility] [address] [id number] [address] [place] [address], [place] [address] November, [facility] [address] [id number] [address] [place] [address], [place] [address] Oct, [facility] [address] [id number] [address] [place] [address], [place] [address] Oct, [facility] [address] [id number] [address] [place] [address], [place] [address] Oct, [facility] [address] [id number] [address] [place] [address], [place] [address] Oct, [facility] [address] [id number] [address] [place] [address], [place] [address] 18 Oct, 2012 [facility] [address] [id number] [address] [place] [address], [place] [address] Oct, [facility] [address] [id number] [address] [place] [address], [place] [address] Oct, [facility] [address] [id number] [address] [place] [address], [place] [address] Sep, [facility] [address] [id number] [address] [place] [address], [place] [address] Sep, [facility] [address] [id number] [address] [place] [address], [place] [address] Sep, [facility] [address] [id number] [address] [place] [address], [place] [address] Sep, [facility] [address] [id number] [address] [place] [address], [place] [address] Aug, [facility] [address] [id number] [address] [place] [address], [place] [address] Aug, [facility] [address] [id number] [address] [place] [address], [place] [address] Aug, [facility] [address] [id number] [address] [place] [address], [place] [address] Aug, [facility] [address] [id number] [address] [place] [address], [place] [address] 18 Aug, 2012 [facility] [address] [id number] [address] [place] [address], [place] [address] Aug, [facility] [address] [id number] [address] [place] [address], [place] [address] Jul, [facility] [address] [id number] [address] [place] [address], [place] [address] Jul, [facility] [address] [id number] [address] [place] [address], [place] [address] Jul, [facility] [address] [id number] [address] [place] [address], [place] [address] Jul, [facility] [address] [id number] [address] [place] [address], [place] [address] Jul, [facility] [address] [id number] [address] [place] [address], [place] [address] Jul, [facility] [address] [id number] [address] [place] [address], [place] [address] Jun, [facility] [address] [id number] [address] [place] [address], [place] [address] Jun, [facility] [address] [id number] [address] [place] [address], [place] [address] Jun, [facility] [address] [id number] [address] [place] [address], [place] [address] Jun, [facility] [address] [id number] [address] [place] [address], [place] [address] Jun, [facility] [address] [id number] [address] [place] [address], [place] [address] Jun, [facility] [address] [id number] [address] [place] [address], [place] [address] May, [facility] [address] [id number] [address] [place] [address], [place] [address] May, [facility] [address] [id number] [address] [place] [address], [place] [address] May, [facility] [address] [id number] [address] [place] [address], [place] [address] May, [facility] [address] [id number] [address] [place] [address], [place] [address] May, [facility] [address] [id number] [address] [place] [address], [place] [address] May, [facility] [address] [id number] [address] [place] [address], [place] [address] May, [facility] [address] [id number] [address] [place] [address], [place] [address] May, [facility] [address] [id number] [address] [place] [address], [place] [address] May, [facility] [address] [id number] [address] [place] [address] May, [facility] [address] [id number] [address] [place] [address], [place] [address] Apr, [facility] [address] [id number] [address] [place] [address], [place] [address] Apr, [facility] [address] [id number] [address] [place] [address], [place] [address] Apr, [facility] [address] [id number] [address] [place] [address] 23 Apr, 2012 [facility] [address] [id number] [address] [place] [address], [place] [address] 16 Apr, 2012 [facility] [address] [id number] [address] [place] [address], [place] [address] 16 Apr, 2012 [facility] [address] [id number] [address] [place] [address], [place] [address] 15 Apr, 2012 [facility] [address] [id number] [address] [place] [address], [place] [address] 15 Apr, 2012 [facility] [address] [id number] [address] [place] [address], [place] [address] 05 Apr, 2012 [facility] [address] [id number] [address] [place] [address], [place] [address] 28 Mar, 2012 [facility] [address] [id number] [address] [place] [address], [place] [address] 26 Mar, 2012 [facility] [address] [id number] [address] [place] [address], [place] [address] 25 Mar, 2012 [facility] [address] [id number] [address] [place] [address], [place] [address] 19 Mar, 2012 [facility] [address] [id number] [address] [place] [address], [place] [address] 18 Mar, 2012 [facility] [address] [id number] [address] [place] [address], [place] [address] 05 Mar, 2012 [facility] [address] [id number] [address] [place] [address], [place] [address] 28 Feb, 2012 [facility] [address] [id number] [address] [place] [address], [place] [address] Feb, [facility] [address] [id number] [address] [place] [address], [place] [address] Feb, [facility] [address] [id number] [address] [place] [address], [place] [address] Jan, [facility] [address] [id number] [address] [place] [address], [place] [address] 31 Jan, 2012 [facility] [address] [id number] [address] [place] [address], [place] [address] Jan, [facility] [address] [id number] [address] [place] [address], [place] [address] Jan, [facility] [address] [id number] [address] [place] [address], [place] [address] Dec, [facility] [address] [id number] [address] [place] [address], [place] [address] November, [facility] [address] [id number] [address] [place] [address], [place] [address] November, [facility] [address] [id number] [address] [place] [address], [place] [address] November, [facility] [address] [id number] [address] [place] [address], [place] [address] November, [facility] [address] [id number] [address] [place] [address], [place] [address] November, [facility] [address] [id number] [address] [place] [address], [place] [address] November, [facility] [address] [id number] [address] [place] [address], [place] [address] Oct, [facility] [address] [id number] [address] [place] [address], [place] [address] Oct, [facility] [address] [id number] [address] [place] [address], [place] [address] Sep, [facility] [address] [id number] [address] [place] [address], [place] [address] Sep, [facility] [address] [id number] [address] [place] [address], [place] [address] Sep, [facility] [address] [id number] [address] [place] [address], [place] [address] Aug, [facility] [address] [id number] [address] [place] [address], [place] [address] Aug, [facility] [address] [id number] [address] [place] [address], [place] [address] 14 Aug, 2011 [facility] [address] [id number] [address] [place] [address], [place] [address] Aug, [facility] [address] [id number] [address] [place] [address], [place] [address] Aug, [facility] [address] [id number] [address] [place] [address], [place] [address] Aug, [facility] [address] [id number] [address] [place] [address], [place] [address] Jul, [facility] [address] [id number] [address] [place] [address], [place] [address] Jul, [facility] [address] [id number] [address] [place] [address], [place] [address] Jul, [facility] [address] [id number] [address] [place] [address], [place] [address] Jul, [facility] [address] [id number] [address] [place] [address], [place] [address] Jul, [facility] [address] [id number] [address] [place] [address], [place] [address] Jul, [facility] [address] [id number] [address] [place] [address], [place] [address] Jul, [facility] [address] [id number] [address] [place] [address], [place] [address] Jul, [facility] [address] [id number] [address] [place] [address], [place] [address] Jul, [facility] [address] [id number] [address] [place] [address], [place] [address] Jul, [facility] [address] [id number] [address] [place] [address], [place] [address] 28 Jun, 2011 [facility] [address] [id number] [address] [place] [address], [place] [address] Jun, [facility] [address] [id number] [address] [place] [address], [place] [address] Jun, [facility] [address] [id number] [address] [place] [address], [place] [address] Jun, [facility] [address] [id number] [address] [place] [address], [place] [address] May, [facility] [address] [id number] [address] [place] [address], [place] [address] May, [facility] [address] [id number] [address] [place] [address], [place] [address] May, [facility] [address] [id number] [address] [place] [address], [place] [address] May, [facility] [address] [id number] [address] [place] [address], [place] [address] Apr, [facility] [address] [id number] [address] [place] [address], [place] [address] Apr, [facility] [address] [id number] [address] [place] [address], [place] [address] November, [facility] [address] [id number] [address] [place] [address], [place] [address] Oct, [facility] [address] [id number] [address] [place] [address], [place] [address] Aug, [facility] [address] [id number] [address] [place] [address], [place] [address] Jun, [facility] [address] [id number] [address] [place] [address], [place] [address] Jun, [facility] [address] [id number] [address] [place] [address], [place] [address] 27 Jun, 2010 [facility] [address] [id number] [address] [place] [address] 03 Jun, 2010 [facility] [address] [id number] [address] [place] [address] 29 May, 2010 [facility] [address] [id number] [address] [place] [address] 27 Apr, 2010 [facility] [address] [id number] [address] [place] [address] 13 Oct, 2009 [facility] [address] [id number] [address] [place] [address] 13 Aug, 2009 [facility] [address] [id number] [address] [place] [address] Jul, [facility] [address] [id number] [address] [place] [address] 22 Jun, 2009 [facility] [address] [id number] [address] [place] [id number] 16 Jun, 2009 [facility] [address] [id number] [address] [place] [id number] 14 Jun, 2009 [facility] [address] [id number] [address] [place] [address] 14 Jun, 2009 [facility] [address] [id number] [address] [place] [id number] 09 May, 2009 [facility] [address] [id number] [address] [place] [id number] 20 Apr, 2009 [facility] [address] [id number] [address] [place] [address] 15 Mar, 2009 [facility] [address] [id number] [address] [place] [id number] 14 Mar, 2009 [facility] [address] [id number] [address] [place] [id number] 11 Dec, 2008 IMMUNIZATIONS No Known Immunizations SOCIAL HISTORY Never Assessed REASON FOR VISIT Controlled Med Refill 03/30/2017 PLAN OF CARE VITAL SIGNS MEDICATIONS Medication Instructions Dosage Frequency Start Date End Date Duration Monet hightower Tramadol HCl 50 mg Orally 3 times [...]
--- OUTSIDE RECORDS SUMMARY | 2019-09-01 05:29 | XMS REPORT ---
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 [facility] [address] [id number] [address] [place] [address], [place] [address] Apr, [facility] [address] [id number] [address] [place] [address], [place] [address] Apr, [facility] [address] [id number] [address] [place] [address], [place] [address] Apr, [facility] [address] [id number] [address] [place] [address], [place] [address] Apr, [facility] [address] [id number] [address] [place] [address], [place] [address] Apr, [facility] [address] [id number] [address] [place] [address], [place] [address] Apr, [facility] [address] [id number] [address] [place] [address], [place] [address] Apr, [facility] [address] [id number] [address] [place] [address], [place] [address] 29 Mar, 2013 [facility] [address] [id number] [address] [place] [address], [place] [address] 29 Mar, 2013 [facility] [address] [id number] [address] [place] [address], [place] [address] 29 Mar, 2013 [facility] [address] [id number] [address] [place] [address], [place] [address] 29 Mar, 2013 [facility] [address] [id number] [address] [place] [address], [place] [address] 10 Mar, 2013 [facility] [address] [id number] [address] [place] [address] 10 Mar, 2013 [facility] [address] [id number] [address] [place] [id number] Sep, 2013 [facility] [address] [id number] [address] [place] [address], [place] [address] 04 Sep, 2013 [facility] [address] [id number] [address] [place] [address], [place] [address] 02 Mar, 2013 [facility] [address] [id number] [address] [place] [address], [place] [address] Mar, 2013 [facility] [address] [id number] [address] [place] [address], [place] [address] Mar, [facility] [address] [id number] [address] [place] [address], [place] [address] Mar, [facility] [address] [id number] [address] [place] [address], [place] [address] Feb, [facility] [address] [id number] [address] [place] [address], [place] [address] Feb, [facility] [address] [id number] [address] [place] [address], [place] [address] Jan, [facility] [address] [id number] [address] [place] [address], [place] [address] Jan, [facility] [address] [id number] [address] [place] [address], [place] [address] Jan, [facility] [address] [id number] [address] [place] [address], [place] [address] Jan, [facility] [address] [id number] [address] [place] [address], [place] [address] Dec, [facility] [address] [id number] [address] [place] [address], [place] [address] Dec, [facility] [address] [id number] [address] [place] [address], [place] [address] Dec, [facility] [address] [id number] [address] [place] [address], [place] [address] Dec, [facility] [address] [id number] [address] [place] [address], [place] [address] Dec, [facility] [address] [id number] [address] [place] [address], [place] [address] Dec, [facility] [address] [id number] [address] [place] [address], [place] [address] November, [facility] [address] [id number] [address] [place] [address], [place] [address] November, [facility] [address] [id number] [address] [place] [address], [place] [address] November, [facility] [address] [id number] [address] [place] [address], [place] [address] November, [facility] [address] [id number] [address] [place] [address], [place] [address] November, [facility] [address] [id number] [address] [place] [address], [place] [address] November, [facility] [address] [facility] [id number] November, [facility] [address] [id number] [address] [place] [address], [place] [address] November, [facility] [address] [id number] [address] [place] [address], [place] [address] November, [facility] [address] [id number] [address] [place] [address], [place] [address] November, [facility] [address] [id number] [address] [place] [address], [place] [address] November, [facility] [address] [id number] [address] [place] [address], [place] [address] November, [facility] [address] [id number] [address] [place] [address], [place] [address] Oct, [facility] [address] [id number] [address] [place] [address], [place] [address] Oct, [facility] [address] [id number] [address] [place] [address], [place] [address] Oct, [facility] [address] [id number] [address] [place] [address], [place] [address] Oct, [facility] [address] [id number] [address] [place] [address], [place] [address] Oct, [facility] [address] [id number] [address] [place] [address], [place] [address] Oct, [facility] [address] [id number] [facility] [place] [address] Oct, [facility] [address] [id number] [facility] [place] [address] Oct, [facility] [address] [id number] [facility] [place] [address] Oct, [facility] [address] [id number] [address] [place] [address], [place] [address] Oct, [facility] [address] [id number] [address] [place] [address], [place] [address] Oct, [facility] [address] [id number] [address] [place] [address], [place] [address] Oct, [facility] [address] [id number] [address] [place] [address], [place] [address] Oct, [facility] [address] [id number] [address] [place] [address], [place] [address] Oct, [facility] [address] [id number] [address] [place] [address], [place] [address] Oct, [facility] [address] [id number] [address] [place] [address], [place] [address] Sep, [facility] [address] [id number] [address] [place] [address], [place] [address] Sep, [facility] [address] [id number] [address] [place] [address], [place] [address] Sep, [facility] [address] [id number] [address] [place] [address], [place] [address] Sep, [facility] [address] [id number] [address] [place] [address], [place] [address] Aug, [facility] [address] [id number] [address] [place] [address], [place] [address] Aug, [facility] [address] [id number] [address] [place] [address], [place] [address] Aug, [facility] [address] [id number] [address] [place] [address], [place] [address] Aug, [facility] [address] [id number] [address] [place] [address], [place] [address] Jul, [facility] [address] [id number] [address] [place] [address], [place] [address] Jul, [facility] [address] [id number] [address] [place] [address], [place] [address] Jul, [facility] [address] [id number] [address] [place] [address], [place] [address] Jul, [facility] [address] [id number] [address] [place] [address], [place] [address] Jul, [facility] [address] [id number] [address] [place] [address], [place] [address] Jul, [facility] [address] [id number] [address] [place] [address], [place] [address] Jul, [facility] [address] [id number] [address] [place] [address], [place] [address] Jul, [facility] [address] [id number] [address] [place] [address], [place] [address] Jul, [facility] [address] [id number] [address] [place] [address], [place] [address] Jul, [facility] [address] [id number] [address] [place] [address], [place] [address] Jul, [facility] [address] [id number] [address] [place] [address], [place] [address] Jul, [facility] [address] [id number] [address] [place] [address], [place] [address] Jul, [facility] [address] [id number] [address] [place] [address], [place] [address] Jul, [facility] [address] [id number] [address] [place] [address], [place] [id number] Jun, [facility] [address] [id number] [address] [place] [address], [place] [id number] Jun, [facility] [address] [id number] [address] [place] [address], [place] [id number] Jun, [facility] [address] [id number] [address] [place] [address], [place] [id number] Jun, [facility] [address] [id number] [address] [place] [address], [place] [address] May, [facility] [address] [id number] [address] [place] [address], [place] [id number] May, [facility] [address] [id number] [address] [place] [address], [place] [address] May, [facility] [address] [id number] [address] [place] [address], [place] [address] May, [facility] [address] [id number] [address] [place] [address], [place] [id number] May, [facility] [address] [id number] [address] [place] [id number] May, [facility] [address] [id number] [address] [place] [id number] May, [facility] [address] [id number] [address] [place] [id number] May, [facility] [address] [id number] [address] [place] [address], [place] [address] Apr, [facility] [address] [id number] [address] [place] [address], [place] [address] Apr, [facility] [address] [id number] [address] [place] [id number] Apr, [facility] [address] [id number] [address] [place] [id number] Apr, [facility] [address] [id number] [address] [place] [address], [place] [address] Apr, [facility] [address] [id number] [address] [place] [address], [place] [id number] Apr, [facility] [address] [id number] [address] [place] [address], [place] [id number] 30 Mar, 2013 [facility] [address] [id number] [address] [place] [address], [place] [id number] 26 Mar, 2013 [facility] [address] [id number] [address] [place] [address], [place] [id number] 20 Mar, 2013 [facility] [address] [id number] [address] [place] [address], [place] [id number] 17 Mar, 2013 [facility] [address] [id number] [address] [place] [address], [place] [id number] 16 Mar, 2013 [facility] [address] [id number] [address] [place] [address], [place] [id number] 05 Mar, 2013 [facility] [address] [id number] [address] [place] [address], [place] [id number] Feb, [facility] [address] [id number] [address] [place] [address], [place] [id number] Feb, [facility] [address] [id number] [address] [place] [address], [place] [id number] Feb, [facility] [address] [id number] [address] [place] [address], [place] [id number] Feb, [facility] [address] [id number] [address] [place] [address], [place] [id number] Jan, [facility] [address] [id number] [address] [place] [address], [place] [id number] Jan, [facility] [address] [id number] [address] [place] [address], [place] [id number] Jan, [facility] [address] [id number] [address] [place] [address], [place] [id number] 23 Jan, 2013 [facility] [address] [id number] [address] [place] [address], [place] [id number] 16 Jan, 2013 [facility] [address] [id number] [address] [place] [address], [place] [id number] Dec, [facility] [address] [id number] [address] [place] [address], [place] [id number] Dec, [facility] [address] [id number] [address] [place] [address], [place] [address] Dec, [facility] [address] [id number] [address] [place] [address], [place] [address] November, [facility] [address] [id number] [address] [place] [address], [place] [id number] November, [facility] [address] [id number] [address] [place] [address], [place] [id number] November, [facility] [address] [id number] [address] [place] [address], [place] [id number] Oct, [facility] [address] [id number] [address] [place] [address], [place] [id number] Oct, [facility] [address] [id number] [address] [place] [address], [place] [id number] Oct, [facility] [address] [id number] [address] [place] [address], [place] [id number] Oct, [facility] [address] [id number] [address] [place] [address], [place] [id number] 18 Oct, 2012 [facility] [address] [id number] [address] [place] [address], [place] [id number] 17 Oct, 2012 [facility] [address] [id number] [address] [place] [address], [place] [address] 15 Oct, 2012 [facility] [address] [id number] [address] [place] [address], [place] [address] Sep, [facility] [address] [id number] [facility] [place] [address] Sep, [facility] [address] [id number] [address] [place] [address], [place] [address] Sep, [facility] [address] [id number] [address] [place] [address], [place] [address] Sep, [facility] [address] [id number] [address] [place] [address], [place] [address] Aug, [facility] [address] [id number] [address] [place] [address], [place] [address] Aug, [facility] [address] [id number] [address] [place] [address], [place] [address] Aug, [facility] [address] [id number] [address] [place] [address], [place] [address] Aug, [facility] [address] [id number] [address] [place] [address], [place] [address] Aug, [facility] [address] [id number] [address] [place] [address], [place] [address] Aug, [facility] [address] [id number] [address] [place] [address], [place] [address] Jul, [facility] [address] [id number] [address] [place] [address], [place] [address] Jul, [facility] [address] [id number] [address] [place] [address], [place] [address] Jul, [facility] [address] [id number] [address] [place] [address], [place] [address] Jul, [facility] [address] [id number] [address] [place] [address], [place] [address] Jul, [facility] [address] [id number] [address] [place] [address], [place] [address] Jul, [facility] [address] [id number] [address] [place] [address], [place] [address] Jun, [facility] [address] [id number] [address] [place] [address], [place] [address] Jun, [facility] [address] [id number] [address] [place] [address], [place] [address] Jun, [facility] [address] [id number] [address] [place] [address], [place] [address] Jun, [facility] [address] [id number] [address] [place] [address], [place] [address] Jun, [facility] [address] [id number] [address] [place] [address], [place] [address] Jun, [facility] [address] [id number] [address] [place] [address], [place] [address] May, [facility] [address] [id number] [address] [place] [address], [place] [address] May, [facility] [address] [id number] [address] [place] [address], [place] [address] May, [facility] [address] [id number] [address] [place] [address], [place] [address] May, [facility] [address] [id number] [address] [place] [address], [place] [address] May, [facility] [address] [id number] [address] [place] [address], [place] [address] May, [facility] [address] [id number] [address] [place] [address], [place] [address] May, [facility] [address] [id number] [address] [place] [address], [place] [address] May, [facility] [address] [id number] [address] [place] [address], [place] [address] May, [facility] [address] [id number] [address] [place] [address], [place] [address] May, [facility] [address] [id number] [address] [place] [address], [place] [address] 31 Apr, 2012 [facility] [address] [id number] [address] [place] [address], [place] [address] 31 Apr, 2012 [facility] [address] [id number] [address] [place] [address], [place] [address] 23 Apr, 2012 [facility] [address] [id number] [address] [place] [address], [place] [address] 23 Apr, 2012 [facility] [address] [id number] [address] [place] [address], [place] [address] 16 Apr, 2012 [facility] [address] [id number] [address] [place] [address], [place] [address] 16 Apr, 2012 [facility] [address] [id number] [address] [place] [address], [place] [address] 15 Apr, 2012 [facility] [address] [id number] [address] [place] [id number] 15 Apr, 2012 [facility] [address] [id number] [address] [place] [address], [place] [address] 05 Apr, 2012 [facility] [address] [id number] [address] [place] [id number] 28 Mar, 2012 [facility] [address] [id number] [address] [place] [id number] 26 Sep2011 [facility] [address] [id number] [address] [place] [id number] 25 Sep, 2011 [facility] [address] [id number] [address] [place] [id number] 19 Sep, 2011 [facility] [address] [id number] [address] [place] [id number] 18 Sep, 2011 [facility] [address] [id number] [address] [place] [id number] 05 Sep, 2011 [facility] [address] [id number] [address] [place] [id number] Feb, [facility] [address] [id number] [address] [place] [address], [place] [address] Feb, [facility] [address] [id number] [address] [place] [address], [place] [address] Feb, [facility] [address] [id number] [address] [place] [address], [place] [address] Jan, [facility] [address] [id number] [address] [place] [address], [place] [address] Jan, [facility] [address] [id number] [address] [place] [address], [place] [address] Jan, [facility] [address] [id number] [address] [place] [address], [place] [address] Jan, [facility] [address] [id number] [address] [place] [address], [place] [address] Dec, [facility] [address] [id number] [address] [place] [address], [place] [address] November, [facility] [address] [id number] [address] [place] [address], [place] [address] November, [facility] [address] [id number] [address] [place] [address], [place] [address] November, [facility] [address] [id number] [address] [place] [address], [place] [address] November, [facility] [address] [id number] [address] [place] [address], [place] [address] November, [facility] [address] [id number] [address] [place] [address], [place] [address] November, [facility] [address] [id number] [address] [place] [address], [place] [address] Oct, [facility] [address] [id number] [address] [place] [address], [place] [address] Oct, [facility] [address] [id number] [address] [place] [address], [place] [address] Sep, [facility] [address] [id number] [address] [place] [address], [place] [address] Sep, [facility] [address] [id number] [address] [place] [address], [place] [address] Sep, [facility] [address] [id number] [address] [place] [address], [place] [address] Aug, [facility] [address] [id number] [address] [place] [address], [place] [address] Aug, [facility] [address] [id number] [address] [place] [address], [place] [address] Aug, [facility] [address] [id number] [address] [place] [address], [place] [address] Aug, [facility] [address] [id number] [address] [place] [address], [place] [address] Aug, [facility] [address] [id number] [address] [place] [address], [place] [address] Aug, [facility] [address] [id number] [address] [place] [address], [place] [address] Jul, [facility] [address] [id number] [address] [place] [address], [place] [address] Jul, [facility] [address] [id number] [address] [place] [address], [place] [address] Jul, [facility] [address] [id number] [address] [place] [address], [place] [address] Jul, [facility] [address] [id number] [address] [place] [address], [place] [address] Jul, [facility] [address] [id number] [address] [place] [address], [place] [address] Jul, [facility] [address] [id number] [address] [place] [address], [place] [address] 17 Jul, 2011 [facility] [address] [id number] [address] [place] [address], [place] [address] Jul, [facility] [address] [id number] [address] [place] [address], [place] [address] Jul, [facility] [address] [id number] [address] [place] [address], [place] [address] Jul, [facility] [address] [id number] [address] [place] [address], [place] [address] Jun, [facility] [address] [id number] [address] [place] [address], [place] [address] Jun, [facility] [address] [id number] [address] [place] [address], [place] [address] Jun, [facility] [address] [id number] [address] [place] [address], [place] [address] Jun, [facility] [address] [id number] [address] [place] [address], [place] [address] May, [facility] [address] [id number] [address] [place] [address], [place] [address] May, [facility] [address] [id number] [address] [place] [address], [place] [address] May, [facility] [address] [id number] [address] [place] [address], [place] [address] May, [facility] [address] [id number] [address] [place] [address], [place] [address] Apr, [facility] [address] [id number] [address] [place] [address], [place] [address] Apr, [facility] [address] [id number] [address] [place] [address], [place] [address] November, [facility] [address] [id number] [address] [place] [address], [place] [address] 18 Oct, 2010 [facility] [address] [id number] [address] [place] [address], [place] [address] 17 Aug, 2010 [facility] [address] [id number] [address] [place] [address], [place] [address] 28 Jun, 2010 [facility] [address] [id number] [address] [place] [address], [place] [address] 28 Jun, 2010 [facility] [address] [id number] [address] [place] [address], [place] [address] 27 Jun, 2010 [facility] [address] [id number] [address] [place] [address], [place] [address] 03 Jun, 2010 [facility] [address] [id number] [address] [place] [address], [place] [address] 29 May, 2010 [facility] [address] [id number] [address] [place] [address], [place] [address] Apr, [facility] [address] [id number] [address] [place] [address], [place] [address] 13 Oct, 2009 [facility] [address] [id number] [address] [place] [address], [place] [address] 13 Aug, 2009 [facility] [address] [id number] [address] [place] [address], [place] [address] Jul, [facility] [address] [id number] [address] [place] [address], [place] [address] 22 Jun, 2009 [facility] [address] [id number] [address] [place] [address], [place] [address] 16 Jun, 2009 [facility] [address] [id number] [address] [place] [address], [place] [address] 14 Jun, 2009 [facility] [address] [id number] [address] [place] [address], [place] [address] 14 Jun, 2009 [facility] [address] [id number] [address] [place] [address], [place] [address] 09 May, 2009 [facility] [address] [id number] [address] [place] [address], [place] [address] Apr, [facility] [address] [facility] [id number] [address] [place] [address] 15 Mar, 2009 [facility] [address] [facility] [id number] [address] [place] [address] 14 Mar, 2009 [facility] [address] [facility] [id number] [address] [place] [address] 11 Dec, 2008 IMMUNIZATIONS No Known Immunizations SOCIAL HISTORY Never Assessed REASON FOR VISIT Acute Pain PLAN OF CARE VITAL SIGNS MEDICATIONS Unknown [...]
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
--- OUTSIDE RECORDS SUMMARY | 2019-09-01 05:29 | XMS REPORT ---
Author Olivia Fernandez [facility] e[employer] Address Unknown Phone Unavailable Care Team Providers Care Dragline Operator Name Role Phone AMRIT MCGEE CP Unavailable [...] Medications Procedures Procedure Coding System Code Date [facility] NO[facility] October 122015 Vital Signs Date/Time: November 01, 2015 Temperature 97.4 F Weight 200.3 lbs Height 66.0 in BMI 32.33 Index Blood Pressure Diastolic 82 mmHg Blood Pressure Systolic 124 mmHg Cardiac Monitoring Heart Rate 78 bpm Results No Known Results Summary Purpose [employer] Submission
--- OUTSIDE RECORDS SUMMARY | 2019-09-01 05:29 | XMS REPORT ---
Author Olivia Eason Organization [employer] Address Unknown Phone Unavailable Care Team Providers Care Service Girl Name Role Phone TYRELL BARILLAS CP Unavailable [...] Status Dosage tramadol NDC 0 50 mg Rx to be filled on 07/11/15 October 04 15 1 Tablet by Oral route 3 times per day PRN Results No Known Results Summary Purpose [employer] Submission
--- OUTSIDE RECORDS SUMMARY | 2019-09-01 05:29 | XMS REPORT ---
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 [address], [place] [address] Apr, [facility] [address] [id number] [address] [place] [address], [place] [address] Apr, [facility] [address] [id number] [address] [place] [id number] Apr, [facility] [address] [id number] [address] [place] [address], [place] [address] Apr, [facility] [address] [id number] [address] [place] [address], [place] [address] Apr, [facility] [address] [id number] [address] [place] [address], [place] [address] Apr, [facility] [address] [id number] [address] [place] [address], [place] [address] 08 Apr, 2013 [facility] [address] [id number] [address] [place] [address], [place] [address] 08 Apr, 2013 [facility] [address] [id number] [address] [place] [address], [place] [address] Apr, [facility] [address] [id number] [address] [place] [address], [place] [address] Apr, 2013 [facility] [address] [id number] [address] [place] [address], [place] [address] 29 Mar, 2013 [facility] [address] [id number] [address] [place] [address], [place] [address] 29 Mar, 2013 [facility] [address] [id number] [address] [place] [address], [place] [address] 29 Mar, 2013 [facility] [address] [id number] [address] [place] [address], [place] [address] 29 Mar, 2013 [facility] [address] [id number] [address] [place] [address], [place] [address] 10 Mar, 2013 [facility] [address] [id number] [address] [place] [address], [place] [address] 10 Mar, 2013 [facility] [address] [id number] [address] [place] [address], [place] [address] 04 Sep, 2013 [facility] [address] [id number] [address] [place] [address], [place] [address] 04 Sep, 2013 [facility] [address] [id number] [address] [place] [address], [place] [address] Sep, 2013 [facility] [address] [id number] [address] [place] [address], [place] [address] Sep, 2013 [facility] [address] [id number] [address] [place] [address], [place] [address] Sep, 2013 [facility] [address] [id number] [address] [place] [address], [place] [address] Mar, [facility] [address] [id number] [address] [place] [address], [place] [address] Feb, [facility] [address] [id number] [address] [place] [address], [place] [address] Feb, [facility] [address] [id number] [address] [place] [address], [place] [address] Jan, [facility] [address] [id number] [address] [place] [address], [place] [address] Jan, [facility] [address] [id number] [address] [place] [address], [place] [address] Jan, [facility] [address] [id number] [address] [place] [address], [place] [address] Jan, [facility] [address] [id number] [address] [place] [address], [place] [address] Dec, [facility] [address] [id number] [address] [place] [address], [place] [address] Dec, [facility] [address] [id number] [address] [place] [address], [place] [address] Dec, [facility] [address] [id number] [address] [place] [address], [place] [address] Dec, [facility] [address] [id number] [address] [place] [address], [place] [address] Dec, [facility] [address] [id number] [address] [place] [address], [place] [address] Dec, [facility] [address] [id number] [address] [place] [address], [place] [address] November, [facility] [address] [id number] [address] [place] [address], [place] [address] November, [facility] [address] [id number] [address] [place] [address], [place] [address] November, [facility] [address] [id number] [address] [place] [address], [place] [address] November, [facility] [address] [id number] [address] [place] [address], [place] [address] November, [facility] [address] [id number] [address] [place] [address], [place] [address] November, [facility] [address] [place] [id number] November, [facility] [address] [id number] [address] [place] [address], [place] [address] November, [facility] [address] [id number] [address] [place] [address], [place] [address] November, [facility] [address] [id number] [address] [place] [address], [place] [address] November, [facility] [address] [id number] [address] [place] [address], [place] [address] November, [facility] [address] [id number] [address] [place] [address], [place] [address] November, [facility] [address] [id number] [address] [place] [address], [place] [address] Oct, [facility] [address] [id number] [address] [place] [address], [place] [address] Oct, [facility] [address] [id number] [address] [place] [address], [place] [address] Oct, [facility] [address] [id number] [address] [place] [address], [place] [address] Oct, [facility] [address] [id number] [address] [place] [address], [place] [address] Oct, [facility] [address] [id number] [address] [place] [address], [place] [address] Oct, [facility] [address] [id number] [address] [place] [address], [place] [address] Oct, [facility] [address] [id number] [address] [place] [address], [place] [address] Oct, [facility] [address] [id number] [address] [place] [address], [place] [address] Oct, [facility] [address] [id number] [address] [place] [address], [place] [address] Oct, [facility] [address] [id number] [address] [place] [address], [place] [address] Oct, [facility] [address] [id number] [address] [place] [address], [place] [address] Oct, [facility] [address] [id number] [address] [place] [address], [place] [address] Oct, [facility] [address] [id number] [address] [place] [address], [place] [address] Oct, [facility] [address] [id number] [address] [place] [address], [place] [address] Oct, [facility] [address] [id number] [address] [place] [address], [place] [address] Sep, [facility] [address] [id number] [address] [place] [address], [place] [address] Sep, [facility] [address] [id number] [address] [place] [address], [place] [address] Sep, [facility] [address] [id number] [address] [place] [address], [place] [address] Sep, [facility] [address] [id number] [address] [place] [address], [place] [address] Aug, [facility] [address] [id number] [address] [place] [address], [place] [address] Aug, [facility] [address] [id number] [address] [place] [address], [place] [address] Aug, [facility] [address] [id number] [address] [place] [address], [place] [address] Aug, [facility] [address] [id number] [address] [place] [address], [place] [address] Jul, [facility] [address] [id number] [address] [place] [address], [place] [address] Jul, [facility] [address] [id number] [address] [place] [address], [place] [address] Jul, [facility] [address] [id number] [address] [place] [address], [place] [address] Jul, [facility] [address] [id number] [address] [place] [address], [place] [address] Jul, [facility] [address] [id number] [address] [place] [address], [place] [address] Jul, [facility] [address] [id number] [address] [place] [address], [place] [address] Jul, [facility] [address] [id number] [address] [place] [address], [place] [address] Jul, [facility] [address] [id number] [address] [place] [address], [place] [address] Jul, [facility] [address] [id number] [address] [place] [address], [place] [id number] Jul, [facility] [address] [id number] [address] [place] [address], [place] [id number] Jul, [facility] [address] [id number] [address] [place] [address], [place] [address] Jul, [facility] [address] [id number] [address] [place] [address], [place] [address] Jul, [facility] [address] [id number] [address] [place] [address], [place] [address] Jul, [facility] [address] [id number] [address] [place] [address], [place] [address] Jun, [facility] [address] [id number] [address] [place] [address], [place] [id number] Jun, [facility] [address] [id number] [address] [place] [address], [place] [address] Jun, [facility] [address] [id number] [address] [place] [address], [place] [address] Jun, [facility] [address] [id number] [address] [place] [address], [place] [address] May, [facility] [address] [id number] [address] [place] [id number] May, [facility] [address] [id number] [address] [place] [address], [place] [address] May, [facility] [address] [id number] [address] [place] [address], [place] [address] May, [facility] [address] [id number] [address] [place] [address], [place] [address] May, [facility] [address] [id number] [address] [place] [address], [place] [address] May, [facility] [address] [id number] [address] [place] [address], [place] [id number] May, [facility] [address] [id number] [address] [place] [address], [place] [address] May, [facility] [address] [id number] [address] [place] [id number] Apr, [facility] [address] [id number] [address] [place] [id number] Apr, [facility] [address] [id number] [address] [place] [address], [place] [address] Apr, [facility] [address] [id number] [address] [place] [address], [place] [address] Apr, [facility] [address] [id number] [address] [place] [address], [place] [address] Apr, [facility] [address] [id number] [address] [place] [address], [place] [address] Apr, [facility] [address] [id number] [address] [place] [address], [place] [id number] 30 Mar, 2013 [facility] [address] [id number] [address] [place] [address], [place] [id number] 26 Mar, 2013 [facility] [address] [id number] [address] [place] [address], [place] [id number] 20 Mar, 2012 [facility] [address] [id number] [address] [place] [address], [place] [id number] 17 Mar, 2013 [facility] [address] [id number] [address] [place] [address], [place] [id number] 16 Mar, 2013 [facility] [address] [id number] [address] [place] [address], [place] [id number] 05 Mar, 2013 [facility] [address] [id number] [address] [place] [address], [place] [address] Feb, [facility] [address] [id number] [address] [place] [address], [place] [id number] Feb, [facility] [address] [id number] [address] [place] [address], [place] [address] Feb, [facility] [address] [id number] [address] [place] [address], [place] [id number] Feb, [facility] [address] [id number] [address] [place] [address], [place] [address] Jan, [facility] [address] [id number] [address] [place] [address], [place] [address] Jan, [facility] [facility] [address] [id number] [address] [place] [address], [place] [address] Jan, [facility] [address] [id number] [address] [place] [address], [place] [address] 23 Jan, 2013 [facility] [address] [id number] [address] [place] [address], [place] [address] Jan, [facility] [address] [id number] [address] [place] [address], [place] [address] Dec, [facility] [address] [id number] [address] [place] [address], [place] [address] Dec, [facility] [address] [id number] [address] [place] [address], [place] [address] Dec, [facility] [address] [id number] [address] [place] [address], [place] [address] November, [facility] [address] [id number] [address] [place] [address], [place] [address] November, [facility] [address] [id number] [address] [place] [address], [place] [address] November, [facility] [address] [id number] [address] [place] [address], [place] [address] Oct, [facility] [address] [id number] [address] [place] [address], [place] [address] Oct, [facility] [address] [id number] [address] [place] [address], [place] [address] Oct, [facility] [address] [id number] [address] [place] [address], [place] [address] Oct, [facility] [address] [id number] [address] [place] [address], [place] [address] 18 Oct, 2012 [facility] [address] [id number] [address] [place] [address], [place] [address] 17 Oct, 2012 [facility] [address] [id number] [address] [place] [address], [place] [address] 15 Oct, 2012 [facility] [address] [id number] [address] [place] [address], [place] [address] Sep, [facility] [address] [id number] [address] [place] [address], [place] [address] Sep, [facility] [address] [id number] [address] [place] [id number] Sep, [facility] [address] [id number] [address] [place] [address], [place] [address] Sep, [facility] [address] [id number] [address] [place] [address], [place] [address] Aug, [facility] [address] [id number] [address] [place] [address], [place] [address] Aug, [facility] [address] [id number] [address] [place] [address], [place] [address] Aug, [facility] [address] [id number] [address] [place] [address], [place] [address] Aug, [facility] [address] [id number] [address] [place] [address], [place] [address] Aug, [facility] [address] [id number] [address] [place] [address], [place] [address] Aug, [facility] [address] [id number] [address] [place] [address], [place] [address] Jul, [facility] [address] [id number] [address] [place] [address], [place] [address] Jul, [facility] [address] [id number] [address] [place] [address], [place] [address] Jul, [facility] [address] [id number] [address] [place] [address], [place] [address] Jul, [facility] [address] [id number] [address] [place] [address], [place] [address] Jul, [facility] [address] [id number] [address] [place] [address], [place] [address] Jul, [facility] [address] [id number] [address] [place] [address], [place] [address] Jun, [facility] [address] [id number] [address] [place] [address], [place] [address] Jun, [facility] [address] [id number] [address] [place] [address], [place] [address] Jun, [facility] [address] [id number] [address] [place] [address], [place] [address] Jun, [facility] [address] [id number] [address] [place] [address], [place] [address] Jun, [facility] [address] [id number] [address] [place] [address], [place] [address] Jun, [facility] [address] [id number] [address] [place] [address], [place] [address] May, [facility] [address] [id number] [address] [place] [address], [place] [address] May, [facility] [address] [id number] [address] [place] [address], [place] [address] May, [facility] [address] [id number] [address] [place] [address], [place] [address] May, [facility] [address] [id number] [address] [place] [address], [place] [address] May, [facility] [address] [id number] [address] [place] [address], [place] [address] May, [facility] [address] [id number] [address] [place] [address], [place] [address] May, [facility] [address] [id number] [address] [place] [address], [place] [address] May, [facility] [address] [id number] [address] [place] [address], [place] [address] May, [facility] [address] [id number] [address] [place] [address], [place] [address] May, [facility] [address] [id number] [address] [place] [address], [place] [address] Apr, [facility] [address] [id number] [address] [place] [id number] 31 Apr, 2012 [facility] [address] [id number] [address] [place] [address], [place] [address] 23 Apr, 2012 [facility] [address] [id number] [address] [place] [id number] 23 Apr, 2012 [facility] [address] [id number] [address] [place] [address], [place] [address] 16 Apr, 2012 [facility] [address] [id number] [address] [place] [id number] 16 Apr, 2012 [facility] [address] [id number] [address] [place] [address], [place] [address] 15 Apr, 2012 [facility] [address] [id number] [address] [place] [address], [place] [address] 15 Apr, 2012 [facility] [address] [id number] [address] [place] [id number] 05 Apr, 2012 [facility] [address] [id number] [address] [place] [address], [place] [address] 28 Mar, 2012 [facility] [address] [id number] [address] [place] [address], [place] [address] 26 Mar, 2012 [facility] [address] [id number] [address] [place] [address], [place] [address] 25 Mar, 2012 [facility] [address] [id number] [address] [place] [address], [place] [address] 19 Mar, 2012 [facility] [address] [id number] [address] [place] [id number] 18 Mar, 2012 [facility] [address] [id number] [address] [place] [address], [place] [address] 05 Mar, 2012 [facility] [address] [id number] [address] [place] [id number] 28 Feb, 2012 [facility] [address] [id number] [address] [place] [address], [place] [address] 27 Feb, 2012 [facility] [address] [id number] [address] [place] [address], [place] [address] Feb, [facility] [address] [id number] [address] [place] [address], [place] [address] Jan, [facility] [address] [id number] [address] [place] [address], [place] [address] Jan, [facility] [address] [id number] [address] [place] [address], [place] [address] Jan, [facility] [address] [id number] [address] [place] [address], [place] [address] Jan, [facility] [address] [id number] [address] [place] [address], [place] [address] Dec, [facility] [address] [id number] [address] [place] [address], [place] [address] November, [facility] [address] [id number] [address] [place] [address], [place] [address] November, [facility] [address] [id number] [address] [place] [address], [place] [address] November, [facility] [address] [id number] [address] [place] [address], [place] [address] November, [facility] [address] [id number] [address] [place] [address], [place] [address] November, [facility] [address] [id number] [address] [place] [address], [place] [address] November, [facility] [address] [id number] [address] [place] [address], [place] [address] Oct, [facility] [address] [id number] [address] [place] [address], [place] [address] Oct, [facility] [address] [id number] [address] [place] [address], [place] [address] Sep, [facility] [address] [id number] [address] [place] [address], [place] [address] Sep, [facility] [address] [id number] [address] [place] [address], [place] [address] Sep, [facility] [address] [id number] [address] [place] [address], [place] [address] Aug, [facility] [address] [id number] [address] [place] [address], [place] [address] Aug, [facility] [address] [id number] [address] [place] [address], [place] [address] Aug, [facility] [address] [id number] [address] [place] [address], [place] [address] Aug, [facility] [address] [id number] [address] [place] [address], [place] [address] Aug, [facility] [address] [id number] [address] [place] [address], [place] [address] Aug, [facility] [address] [id number] [address] [place] [address], [place] [address] Jul, [facility] [address] [id number] [address] [place] [address], [place] [address] Jul, [facility] [address] [id number] [address] [place] [address], [place] [address] Jul, [facility] [address] [id number] [address] [place] [address], [place] [address] Jul, [facility] [address] [id number] [address] [place] [address], [place] [address] Jul, [facility] [address] [id number] [address] [place] [address], [place] [address] Jul, [facility] [address] [id number] [address] [place] [address], [place] [address] Jul, [facility] [address] [id number] [address] [place] [address], [place] [address] Jul, [facility] [address] [id number] [address] [place] [address], [place] [address] 10 Jul, 2011 [facility] [address] [id number] [address] [place] [address], [place] [address] Jul, [facility] [address] [id number] [address] [place] [address], [place] [address] Jun, [facility] [address] [id number] [address] [place] [address], [place] [address] Jun, [facility] [address] [id number] [address] [place] [address], [place] [address] Jun, [facility] [address] [id number] [address] [place] [address], [place] [address] Jun, [facility] [address] [id number] [address] [place] [address], [place] [address] May, [facility] [address] [id number] [address] [place] [address], [place] [address] May, [facility] [address] [id number] [address] [place] [address], [place] [address] May, [facility] [address] [id number] [address] [place] [address], [place] [address] May, [facility] [address] [id number] [address] [place] [address], [place] [address] Apr, [facility] [address] [id number] [address] [place] [address], [place] [address] Apr, [facility] [address] [id number] [address] [place] [address], [place] [address] November, [facility] [address] [id number] [address] [place] [address], [place] [address] 18 Oct, 2010 [facility] [address] [id number] [address] [place] [address], [place] [address] Aug, [facility] [address] [id number] [address] [place] [address], [place] [address] Jun, [facility] [address] [id number] [address] [place] [address], [place] [address] 28 Jun, 2010 [facility] [address] [id number] [address] [place] [address], [place] [address] 27 Jun, 2010 [facility] [address] [id number] [address] [place] [address], [place] [address] 03 Jun, 2010 [facility] [address] [id number] [address] [place] [address], [place] [address] 29 May, 2010 [facility] [address] [id number] [address] [place] [address], [place] [address] 27 Apr, 2010 [facility] [address] [id number] [address] [place] [address], [place] [address] 13 Oct, 2009 [facility] [address] [id number] [address] [place] [address], [place] [address] 13 Aug, 2009 [facility] [address] [id number] [address] [place] [address], [place] [address] 20 Jul, 2009 [facility] [address] [id number] [address] [place] [address], [place] [address] 22 Jun, 2009 [facility] [address] [id number] [address] [place] [address], [place] [address] 16 Jun, 2009 [facility] [address] [id number] [address] [place] [address], [place] [address] 14 Jun, 2009 [facility] [address] [id number] [address] [place] [id number] 14 Jun, 2009 [facility] [address] [id number] [address] [place] [address], [place] [address] 09 May, 2009 [facility] [address] [id number] [address] [place] [address], [place] [address] 20 Apr, 2009 [facility] [address] [id number] [address] [place] [address], [place] [address] 15 Mar, 2009 [facility] [address] [id number] [address] [place] [id number] 14 Mar, 2009 [facility] [address] [facility] [id number] [address] [place] [address] 11 Dec, 2008 IMMUNIZATIONS No Known Immunizations SOCIAL HISTORY Never Assessed REASON FOR VISIT PLAN OF CARE VITAL SIGNS MEDICATIONS Medication Instructions Dosage Frequency Start Date End Date Duration S campbell Duloxetine HCl 60 MG Orally every morning 2 capsule 30 days Active RESULTS No Results PROCEDURES [...]
--- OUTSIDE RECORDS SUMMARY | 2019-09-01 05:30 | XMS REPORT ---
Author Author Olivia BARILLAS Organization [employer] Address Unknown Phone Unavailable Care Team Providers Care Marketing Performance Analyst Name Role Phone TYRELL BARILLAS CP Unavailable Allergies, Adverse Reactions, Alerts Substance Reaction Event Type N.K.D.A. Info Not Available Non Drug Allergy Problems Problem Type Condition Code Onset Dates Condition Statu s Problem Abnormal weight gain 783.1 Active Problem Nondependent tobacco use disorder 305.1 Active Problem Other specified erythematous condition 695.89 Active Problem Other malaise and fatigue 780.79 Ac tive Assessment Encounter for immunization Z23 A ctive Problem Special screening examination, human papillomavirus [H PV] V73.81 Active Assessment Fibromyalgia M79.7 Active Assessment History of long-term use of multiple prescription drug s Z92.29 Active Problem Posttraumatic stress disorder 309.81 Active Problem Special screening for malignant neoplasms, colon V76.5 1 Active Problem Other specified counseling V65.49 A ctive Problem Screening for malignant neoplasm of the cervix V76.2 Active Problem Special screening for osteoporosis V82.81 Active Problem Unspecified hereditary and idiopathic peripheral neuro keely 356.9 Active Problem Cervicalgia 723.1 Active Assessment Routine gynecological examination V72.31 Active Problem Bipolar I disorder, most rec [...] Date End Date Status Dosage Lyrica [facility] [address]-61 50 MG Orally Once a day at hs #35 samples May 02, 2015 1 capsule Cymbalta [facility] [address]-41 60 MG TAKE ONE CAPSULE BY MOUTH DAILY Abilify [facility] 89752614260 5 MG TAKE ONE TAB LET BY MOUTH DAILY Symbicort [facility] [address]-76 160-4.5 MCG/ACT Inhalation Twice a day 2 puffs Pantoprazole Sodium [facility] 48548771715 40 MG TAKE ONE TABLET BY MOUTH DAILY Meloxicam [facility] 18424185358 15 MG TAKE ONE T ABLET BY MOUTH DAILY NEEDED Albuterol Sulfate [facility] [address]-74 (2.5 MG/3ML) 0 .083% Inhalation 4 times a day 3 ml tramadol ND 0 50 mg October 04, 2014 1 Tablet by Oral route 3 times per day PRN Clonazepam [facility] 08757873687 0.5 MG TAKE ONE TO TWO TABLETS BY MOUTH ONCE OR TWICE DAILY NEEDED FOR ANXIETY Lancets ND 0 Mar 28, 2013 2 times pe r day conjugated estrogens ND 0 0.625 mg/gram November 22, 2012 1 g by Vaginal route 1 time per day use on external genitalia daily for 2 weeks then 3 times a week Sumatriptan Succinate [facility] 12986189635 100 MG TAKE ONE TABLET BY MOUTH ONCE DAILY NEEDED MAY REPEAT IN 2 HOURS IF HEADACHE RECURS Amlodipine Besylate [facility] 33435730654 5 MG TAKE ONE TABLET BY MOUTH DAILY Metformin HCl [facility] [address]-54 500 MG Orally Twice a day 2 tablet with meals Amitriptyline HCl [facility] [address]-43 25 MG TAKE ONE TABLET BY MOUTH AT BEDTIME Loratadine [facility] 78681078517 10 MG TAKE ONE TABLET BY MOUTH AT BEDTIME FOR ALLERGIES Procedures Procedure Coding System Code Date SINGLE IMMUNIZATION ADMIN CPT-4 81632 Apr COMPREHEN METABOLIC PANEL CPT-4 56737 Apr FLUARIX QUAD (3 & UP)--2014 CPT-[address] 2014 Office Visit, Est Pt., Level 4 CPT-[address] 2014 VENIPUNCT, ROUTINE* CPT-4 96010 May 02, 2015 LIPID PANEL CPT-4 11476 May 02, 2015 TEST FOR BLOOD, FECES CPT-4 66614 May 02 15 SPECIMEN HANDLING CPT-4 49973 May 02, 2015 Vital Signs Date/Time: May 02, 2015 Temperature 97.8 F Weight 202.6 lbs Height 65 in BMI 33.71 Index Blood Pressure Diastolic 70 mmHg Blood Pressure Systolic 122 mmHg Cardiac Monitoring Heart Rate 88 bpm Results Name Result Date Reference Range Unit Abnormali ty Flag HEMOCCULT (IN HOUSE) Immunizations Vaccine Administration Date FLUARIX QUAD (3 & UP)--2014May 02, 2015 Summary Purpose [employer] Submission
--- OUTSIDE RECORDS SUMMARY | 2019-09-01 05:30 | XMS REPORT ---
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 Jun, [facility] [address] [id number] [address] [place] [address], [place] [address] Jun, [facility] [address] [id number] [address] [place] [address], [place] [address] Jun, [facility] [address] [id number] [address] [place] [address], [place] [address] Jun, [facility] [address] [id number] [address] [place] [address], [place] [address] May, [facility] [address] [id number] [address] [place] [address], [place] [address] May, [facility] [address] [id number] [address] [place] [address], [place] [address] May, [facility] [address] [id number] [address] [place] [address], [place] [address] May, [facility] [address] [id number] [address] [place] [address], [place] [address] Apr, [facility] [address] [id number] [address] [place] [address], [place] [address] Apr, [facility] [address] [id number] [address] [place] [address], [place] [address] Apr, [facility] [address] [id number] [address] [place] [address] Apr, [facility] [address] [id number] [address] [place] [address], [place] [address] Apr, [facility] [address] [id number] [address] [place] [address], [place] [address] Apr, [facility] [address] [id number] [address] [place] [address], [place] [address] Apr, [facility] [address] [id number] [address] [place] [address], [place] [address] 08 Apr, 2014 [facility] [address] [id number] [address] [place] [address], [place] [address] Apr, [facility] [address] [id number] [address] [place] [address], [place] [address] Apr, [facility] [address] [id number] [address] [place] [address], [place] [address] 29 Mar, 2013 [facility] [address] [id number] [address] [place] [address], [place] [address] 29 Mar, 2013 [facility] [address] [id number] [address] [place] [address], [place] [address] 29 Mar, 2013 [facility] [address] [id number] [address] [place] [address], [place] [address] 29 Mar, 2013 [facility] [address] [id number] [address] [place] [address], [place] [address] 10 Mar, 2013 [facility] [address] [id number] [address] [place] [address], [place] [address] 10 Mar, 2013 [facility] [address] [id number] [address] [place] [address], [place] [address] 04 Mar, 2013 [facility] [address] [id number] [address] [place] [address], [place] [address] 04 Mar, 2013 [facility] [address] [id number] [address] [place] [address], [place] [address] Mar, 2013 [facility] [address] [id number] [address] [place] [address], [place] [address] Mar, 2013 [facility] [address] [id number] [address] [place] [address], [place] [address] Mar, 2013 [facility] [address] [id number] [address] [place] [address], [place] [address] Mar, 2013 [facility] [address] [id number] [address] [place] [address], [place] [address] Feb, [facility] [address] [id number] [address] [place] [address], [place] [address] Feb, [facility] [address] [id number] [address] [place] [address], [place] [address] Jan, [facility] [address] [id number] [address] [place] [address], [place] [address] Jan, [facility] [address] [id number] [address] [place] [address], [place] [address] Jan, [facility] [address] [id number] [address] [place] [address], [place] [address] Jan, [facility] [address] [id number] [address] [place] [address], [place] [address] Dec, [facility] [address] [id number] [address] [place] [address], [place] [address] Dec, [facility] [address] [id number] [address] [place] [address], [place] [address] Dec, [facility] [address] [id number] [address] [place] [address], [place] [address] Dec, [facility] [address] [id number] [address] [place] [address], [place] [address] Dec, [facility] [address] [id number] [address] [place] [address], [place] [address] Dec, [facility] [address] [id number] [address] [place] [address], [place] [address] November, [facility] [address] [id number] [address] [place] [address], [place] [address] November, [facility] [address] [id number] [address] [place] [address], [place] [address] November, [facility] [address] [id number] [address] [place] [address], [place] [address] November, [facility] [address] [id number] [address] [place] [address], [place] [address] November, [facility] [address] [id number] [address] [place] [address], [place] [address] November, [facility] [address] [place], [place] [id number] November, [facility] [address] [id number] [address] [place] [address], [place] [address] November, [facility] [address] [id number] [address] [place] [address], [place] [address] November, [facility] [address] [id number] [address] [place] [address], [place] [address] November, [facility] [address] [id number] [address] [place] [address], [place] [address] November, [facility] [address] [id number] [address] [place] [address], [place] [address] November, [facility] [address] [id number] [address] [place] [address], [place] [address] Oct, [facility] [address] [id number] [address] [place] [address], [place] [address] Oct, [facility] [address] [id number] [address] [place] [address], [place] [address] Oct, [facility] [address] [id number] [address] [place] [address], [place] [address] Oct, [facility] [address] [id number] [address] [place] [address], [place] [address] Oct, [facility] [address] [id number] [address] [place] [address], [place] [address] Oct, [facility] [address] [id number] [address] [place] [address], [place] [address] Oct, [facility] [address] [id number] [address] [place] [address], [place] [address] Oct, [facility] [address] [id number] [address] [place] [address], [place] [address] Oct, [facility] [address] [id number] [facility] [place] [address] Oct, [facility] [address] [id number] [facility] [place] [address] Oct, [facility] [address] [id number] [address] [place] [address], [place] [address] Oct, [facility] [address] [id number] [address] [place] [address], [place] [address] Oct, [facility] [address] [id number] [address] [place] [address], [place] [address] Oct, [facility] [address] [id number] [address] [place] [address], [place] [address] Oct, [facility] [address] [id number] [address] [place] [address], [place] [address] Sep, [facility] [address] [id number] [address] [place] [address], [place] [address] Sep, [facility] [address] [id number] [address] [place] [address], [place] [address] Sep, [facility] [address] [id number] [address] [place] [address], [place] [address] Sep, [facility] [address] [id number] [address] [place] [address], [place] [address] Aug, [facility] [address] [id number] [address] [place] [address], [place] [address] Aug, [facility] [address] [id number] [address] [place] [address], [place] [address] Aug, [facility] [address] [id number] [address] [place] [address], [place] [address] Aug, [facility] [address] [id number] [address] [place] [address], [place] [address] Jul, [facility] [address] [id number] [address] [place] [address], [place] [address] Jul, [facility] [address] [id number] [address] [place] [address], [place] [address] Jul, [facility] [address] [id number] [address] [place] [address], [place] [address] Jul, [facility] [address] [id number] [address] [place] [address], [place] [address] Jul, [facility] [address] [id number] [address] [place] [address], [place] [address] Jul, [facility] [address] [id number] [address] [place] [address], [place] [address] Jul, [facility] [address] [id number] [address] [place] [address], [place] [address] Jul, [facility] [address] [id number] [address] [place] [address], [place] [address] Jul, [facility] [address] [id number] [address] [place] [address], [place] [address] Jul, [facility] [address] [id number] [address] [place] [address], [place] [address] Jul, [facility] [address] [id number] [address] [place] [address], [place] [address] Jul, [facility] [address] [id number] [address] [place] [address], [place] [address] Jul, [facility] [address] [id number] [address] [place] [address], [place] [address] Jul, [facility] [address] [id number] [address] [place] [address], [place] [address] Jun, [facility] [address] [id number] [address] [place] [address], [place] [address] Jun, [facility] [address] [id number] [address] [place] [address] Jun, [facility] [address] [id number] [address] [place] [address], [place] [address] Jun, [facility] [address] [id number] [address] [place] [address] May, [facility] [address] [id number] [address] [place] [address] May, [facility] [address] [id number] [address] [place] [address] May, [facility] [address] [id number] [address] [place] [address], [place] [address] May, [facility] [address] [id number] [address] [place] [address] May, [facility] [address] [id number] [address] [place] [address] May, [facility] [address] [id number] [address] [place] [address], [place] [address] May, [facility] [address] [id number] [address] [place] [address] May, [facility] [address] [id number] [address] [place] [address] Apr, [facility] [address] [id number] [address] [place] [address] Apr, [facility] [address] [id number] [address] [place] [address] Apr, [facility] [address] [id number] [address] [place] [address] Apr, [facility] [address] [id number] [address] [place] [address] Apr, [facility] [address] [id number] [address] [place] [address] Apr, [facility] [address] [id number] [address] [place] [address], [place] [address] 30 Mar, 2012 [facility] [address] [id number] [address] [place] [address], [place] [address] 26 Mar, 2013 [facility] [address] [id number] [address] [place] [address], [place] [address] 20 Mar, 2012 [facility] [address] [id number] [address] [place] [address], [place] [address] 17 Mar, 2012 [facility] [address] [id number] [address] [place] [address], [place] [address] 16 Mar, 2012 [facility] [address] [id number] [address] [place] [address], [place] [address] 05 Mar, 2013 [facility] [address] [id number] [address] [place] [address], [place] [address] 27 Feb, 2013 [facility] [address] [id number] [address] [place] [address], [place] [address] Feb, [facility] [address] [id number] [address] [place] [address], [place] [address] Feb, [facility] [address] [id number] [address] [place] [address], [place] [address] Feb, [facility] [address] [id number] [address] [place] [address], [place] [address] Jan, [facility] [address] [id number] [address] [place] [address], [place] [address] Jan, [facility] [address] [id number] [address] [place] [address], [place] [address] Jan, [facility] [address] [id number] [address] [place] [address], [place] [address] Jan, [facility] [address] [id number] [address] [place] [address], [place] [address] Jan, [facility] [address] [id number] [address] [place] [address], [place] [address] Dec, [facility] [address] [id number] [address] [place] [address], [place] [address] Dec, [facility] [address] [id number] [address] [place] [address], [place] [address] Dec, [facility] [address] [id number] [address] [place] [address], [place] [address] November, [facility] [address] [id number] [address] [place] [address], [place] [address] November, [facility] [address] [id number] [address] [place] [address], [place] [address] November, [facility] [address] [id number] [address] [place] [address], [place] [address] Oct, [facility] [address] [id number] [address] [place] [address], [place] [address] Oct, [facility] [address] [id number] [address] [place] [address], [place] [address] Oct, [facility] [address] [id number] [address] [place] [address], [place] [address] Oct, [facility] [address] [id number] [address] [place] [address], [place] [address] Oct, [facility] [address] [id number] [address] [place] [address], [place] [address] 17 Oct, 2012 [facility] [address] [id number] [address] [place] [address], [place] [address] 15 Oct, 2012 [facility] [address] [id number] [address] [place] [address], [place] [address] Sep, [facility] [address] [id number] [address] [place] [address], [place] [address] Sep, [facility] [address] [id number] [address] [place] [address], [place] [address] 06 Sep, 2012 [facility] [address] [id number] [address] [place] [address], [place] [address] Sep, [facility] [address] [id number] [address] [place] [address], [place] [address] Aug, [facility] [address] [id number] [address] [place] [address], [place] [address] Aug, [facility] [address] [id number] [address] [place] [address], [place] [address] Aug, [facility] [address] [id number] [address] [place] [address], [place] [address] Aug, [facility] [address] [id number] [address] [place] [address], [place] [address] Aug, [facility] [address] [id number] [address] [place] [address], [place] [address] Aug, [facility] [address] [id number] [address] [place] [address], [place] [address] Jul, [facility] [address] [id number] [address] [place] [address], [place] [address] Jul, [facility] [address] [id number] [address] [place] [address], [place] [address] Jul, [facility] [address] [id number] [address] [place] [address], [place] [address] Jul, [facility] [address] [id number] [address] [place] [address], [place] [address] Jul, [facility] [address] [id number] [address] [place] [address], [place] [address] Jul, [facility] [address] [id number] [address] [place] [address], [place] [address] Jun, [facility] [address] [id number] [address] [place] [address], [place] [address] Jun, [facility] [address] [id number] [address] [place] [address], [place] [address] Jun, [facility] [address] [id number] [address] [place] [address], [place] [address] Jun, [facility] [address] [id number] [address] [place] [address], [place] [address] Jun, [facility] [address] [id number] [address] [place] [address], [place] [address] Jun, [facility] [address] [id number] [address] [place] [address], [place] [address] May, [facility] [address] [id number] [address] [place] [address], [place] [address] May, [facility] [address] [id number] [address] [place] [address], [place] [address] May, [facility] [address] [id number] [address] [place] [address], [place] [address] May, [facility] [address] [id number] [address] [place] [address], [place] [address] May, [facility] [address] [id number] [address] [place] [address], [place] [address] May, [facility] [address] [id number] [address] [place] [address], [place] [address] May, [facility] [address] [id number] [address] [place] [address], [place] [address] May, [facility] [address] [id number] [address] [place] [address], [place] [address] May, [facility] [address] [id number] [address] [place] [address], [place] [address] May, [facility] [address] [id number] [address] [place] [address], [place] [address] Apr, [facility] [address] [id number] [address] [place] [address], [place] [address] Apr, [facility] [address] [id number] [address] [place] [address] 23 Apr, 2012 [facility] [address] [id number] [address] [place] [address], [place] [address] 23 Apr, 2012 [facility] [address] [id number] [address] [place] [address], [place] [address] 16 Apr, 2012 [facility] [address] [id number] [address] [place] [address], [place] [address] 16 Apr, 2012 [facility] [address] [id number] [address] [place] [address], [place] [address] 15 Apr, 2012 [facility] [address] [id number] [address] [place] [address], [place] [address] 15 Apr, 2012 [facility] [address] [id number] [address] [place] [address], [place] [address] 05 Apr, 2012 [facility] [address] [id number] [address] [place] [address], [place] [address] 28 Mar, 2012 [facility] [address] [id number] [address] [place] [address], [place] [address] 26 Mar, 2012 [facility] [address] [id number] [address] [place] [address], [place] [address] 25 Mar, 2012 [facility] [address] [id number] [address] [place] [address], [place] [address] 19 Sep2011 [facility] [address] [id number] [address] [place] [address], [place] [address] 18 Sep2011 [facility] [address] [id number] [address] [place] [address], [place] [address] 05 Mar, 2012 [facility] [address] [id number] [address] [place] [address], [place] [address] 28 Feb, 2012 [facility] [address] [id number] [address] [place] [address], [place] [address] Feb, [facility] [address] [id number] [address] [place] [address], [place] [address] Feb, [facility] [address] [id number] [facility] [place] [address] Jan, [facility] [address] [id number] [address] [place] [address], [place] [address] Jan, [facility] [address] [id number] [address] [place] [address], [place] [address] Jan, [facility] [address] [id number] [address] [place] [address], [place] [address] Jan, [facility] [address] [id number] [address] [place] [address], [place] [address] Dec, [facility] [address] [id number] [address] [place] [address], [place] [address] November, [facility] [address] [id number] [address] [place] [address], [place] [address] November, [facility] [address] [id number] [address] [place] [address], [place] [address] November, [facility] [address] [id number] [address] [place] [address], [place] [address] November, [facility] [address] [id number] [address] [place] [address], [place] [address] November, [facility] [address] [id number] [address] [place] [address], [place] [address] November, [facility] [address] [id number] [address] [place] [address], [place] [address] Oct, [facility] [address] [id number] [address] [place] [address], [place] [address] Oct, [facility] [address] [id number] [address] [place] [address], [place] [address] Sep, [facility] [address] [id number] [address] [place] [address], [place] [address] Sep, [facility] [address] [id number] [address] [place] [address], [place] [address] Sep, [facility] [address] [id number] [address] [place] [address], [place] [address] Aug, [facility] [address] [id number] [address] [place] [address], [place] [address] Aug, [facility] [address] [id number] [address] [place] [address], [place] [address] Aug, [facility] [address] [id number] [address] [place] [address], [place] [address] Aug, [facility] [address] [id number] [address] [place] [address], [place] [address] Aug, [facility] [address] [id number] [address] [place] [address], [place] [address] Aug, [facility] [address] [id number] [address] [place] [address], [place] [address] Jul, [facility] [address] [id number] [address] [place] [address], [place] [address] Jul, [facility] [address] [id number] [address] [place] [address], [place] [address] Jul, [facility] [address] [id number] [address] [place] [address], [place] [address] Jul, [facility] [address] [id number] [address] [place] [address], [place] [address] Jul, [facility] [address] [id number] [address] [place] [address], [place] [address] Jul, [facility] [address] [id number] [address] [place] [address], [place] [address] Jul, [facility] [address] [id number] [address] [place] [address], [place] [address] Jul, [facility] [address] [id number] [address] [place] [address], [place] [address] Jul, [facility] [address] [id number] [address] [place] [address], [place] [address] Jul, [facility] [address] [id number] [address] [place] [address], [place] [address] Jun, [facility] [address] [id number] [address] [place] [address], [place] [address] Jun, [facility] [address] [id number] [address] [place] [address], [place] [address] Jun, [facility] [address] [id number] [address] [place] [address], [place] [address] Jun, [facility] [address] [id number] [address] [place] [address], [place] [address] May, [facility] [address] [id number] [address] [place] [address], [place] [address] May, [facility] [address] [id number] [address] [place] [address], [place] [address] May, [facility] [address] [id number] [address] [place] [address], [place] [address] May, [facility] [address] [id number] [address] [place] [address], [place] [address] Apr, [facility] [address] [id number] [address] [place] [address], [place] [address] Apr, [facility] [address] [id number] [address] [place] [address], [place] [address] November, [facility] [address] [id number] [address] [place] [address], [place] [address] Oct, [facility] [address] [id number] [address] [place] [address], [place] [address] Aug, [facility] [address] [id number] [address] [place] [address], [place] [address] Jun, [facility] [address] [id number] [address] [place] [address], [place] [address] 28 Jun, 2010 [facility] [address] [id number] [address] [place] [address], [place] [address] 27 Jun, 2010 [facility] [address] [id number] [address] [place] [address], [place] [address] 03 Jun, 2010 [facility] [address] [id number] [address] [place] [address], [place] [address] 29 May, 2010 [facility] [address] [id number] [address] [place] [address], [place] [address] 27 Apr, 2010 [facility] [address] [id number] [address] [place] [address], [place] [address] Oct, [facility] [address] [id number] [address] [place] [address], [place] [address] 13 Aug, 2009 [facility] [address] [id number] [address] [place] [address], [place] [address] 20 Jul, 2009 [facility] [address] [id number] [address] [place] [address], [place] [address] 22 Jun, 2009 [facility] [address] [id number] [address] [place] [address], [place] [address] 16 Jun, 2009 [facility] [address] [id number] [address] [place] [address], [place] [address] 14 Jun, 2009 [facility] [address] [id number] [address] [place] [address], [place] [address] 14 Jun, 2009 [facility] [address] [id number] [address] [place] [address] 09 May, 2009 [facility] [address] [id number] [address] [place] [address], [place] [address] 20 Apr, 2009 [facility] [address] [id number] [address] [place] [address], [place] [address] 15 Mar, 2009 [facility] [address] [id number] [address] [place] [address], [place] [address] 14 Mar, 2009 [facility] [address] [id number] [place] [address] Dec, IMMUNIZATIONS No Known Immunizations SOCIAL HISTORY Never Assessed REASON FOR VISIT requesting medication PLAN OF CARE VITAL SIGNS MEDICATIONS Medication Instructions Dosage Frequency Start Date End Date Duration S tatus Migranal 4 MG/ML Nasally do not use more than 2 sprays pe r nostril in a 24 hrs 1 spray in each nostril at onset of Migraine. May repeat in 15 minutes Apr, Active RESULTS No Results PROCEDURES No Known [...]
--- OUTSIDE RECORDS SUMMARY | 2019-09-01 05:30 | XMS REPORT ---
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 [address] [id number] [address] [place] [address] 08 Apr, 2014 [facility] [address] [id number] [address] [place] [address], [place] [address] Apr, [facility] [address] [id number] [address] [place] [address], [place] [address] Apr, [facility] [address] [id number] [address] [place] [address], [place] [address] 29 Mar, 2013 [facility] [address] [id number] [address] [place] [address], [place] [address] 29 Mar, 2013 [facility] [address] [id number] [address] [place] [address], [place] [address] 29 Mar, 2013 [facility] [address] [id number] [address] [place] [address], [place] [address] 29 Mar, 2013 [facility] [address] [id number] [address] [place] [address], [place] [address] Mar, 2013 [facility] [address] [id number] [address] [place] [address], [place] [address] 10 Mar, 2013 [facility] [address] [id number] [address] [place] [address], [place] [address] 04 Mar, 2013 [facility] [address] [id number] [address] [place] [address], [place] [address] 04 Mar, 2013 [facility] [address] [id number] [address] [place] [address], [place] [address] Mar, 2013 [facility] [address] [id number] [address] [place] [address], [place] [address] Mar, 2013 [facility] [address] [id number] [address] [place] [address], [place] [address] Mar, 2013 [facility] [address] [id number] [address] [place] [address], [place] [address] Mar, 2013 [facility] [address] [id number] [address] [place] [address], [place] [address] Feb, [facility] [address] [id number] [facility] [place] [address] Feb, [facility] [address] [id number] [facility] [place] [address] Jan, [facility] [address] [id number] [facility] [place] [address] Jan, [facility] [address] [id number] [facility] [place] [address] Jan, [facility] [address] [id number] [facility] [place] [address] Jan, [facility] [address] [id number] [address] [place] [address], [place] [address] Dec, [facility] [address] [id number] [address] [place] [address], [place] [address] Dec, [facility] [address] [id number] [address] [place] [address], [place] [address] Dec, [facility] [address] [id number] [address] [place] [address], [place] [address] Dec, [facility] [address] [id number] [address] [place] [address], [place] [address] Dec, [facility] [address] [id number] [address] [place] [address], [place] [address] Dec, [facility] [address] [id number] [address] [place] [address], [place] [address] November, [facility] [address] [id number] [address] [place] [address], [place] [address] November, [facility] [address] [id number] [address] [place] [address], [place] [address] November, [facility] [address] [id number] [address] [place] [address], [place] [address] November, [facility] [address] [id number] [address] [place] [address], [place] [address] November, [facility] [address] [id number] [address] [place] [address], [place] [address] November, [facility] [address] [place] [id number] November, [facility] [address] [id number] [address] [place] [address], [place] [address] November, [facility] [address] [id number] [address] [place] [address], [place] [address] November, [facility] [address] [id number] [address] [place] [address], [place] [address] November, [facility] [address] [id number] [address] [place] [address], [place] [address] November, [facility] [address] [id number] [address] [place] [address], [place] [address] November, [facility] [address] [id number] [address] [place] [address], [place] [address] Oct, [facility] [address] [id number] [address] [place] [address], [place] [address] Oct, [facility] [address] [id number] [address] [place] [address], [place] [address] Oct, [facility] [address] [id number] [address] [place] [address], [place] [address] Oct, [facility] [address] [id number] [address] [place] [address], [place] [address] Oct, [facility] [address] [id number] [address] [place] [address], [place] [address] Oct, [facility] [address] [id number] [address] [place] [address], [place] [address] Oct, [facility] [address] [id number] [address] [place] [address], [place] [address] Oct, [facility] [address] [id number] [address] [place] [address], [place] [address] Oct, [facility] [address] [id number] [facility] [place] [address] Oct, [facility] [address] [id number] [address] [place] [address], [place] [address] Oct, [facility] [address] [id number] [address] [place] [address], [place] [address] Oct, [facility] [address] [id number] [address] [place] [address], [place] [address] Oct, [facility] [address] [id number] [address] [place] [address], [place] [address] Oct, [facility] [address] [id number] [address] [place] [address], [place] [address] Oct, [facility] [address] [id number] [address] [place] [address], [place] [address] Sep, [facility] [address] [id number] [address] [place] [address], [place] [address] Sep, [facility] [address] [id number] [address] [place] [address], [place] [address] Sep, [facility] [address] [id number] [address] [place] [address], [place] [address] Sep, [facility] [address] [id number] [address] [place] [address], [place] [address] Aug, [facility] [address] [id number] [address] [place] [address], [place] [address] Aug, [facility] [address] [id number] [address] [place] [address], [place] [address] Aug, [facility] [address] [id number] [address] [place] [address], [place] [address] Aug, [facility] [address] [id number] [address] [place] [address], [place] [address] Jul, [facility] [address] [id number] [address] [place] [address], [place] [address] Jul, [facility] [address] [id number] [address] [place] [address], [place] [address] Jul, [facility] [address] [id number] [address] [place] [address], [place] [address] Jul, [facility] [address] [id number] [address] [place] [address], [place] [address] Jul, [facility] [address] [id number] [address] [place] [address], [place] [address] Jul, [facility] [address] [id number] [address] [place] [address], [place] [address] Jul, [facility] [address] [id number] [address] [place] [address], [place] [address] Jul, [facility] [address] [id number] [address] [place] [address], [place] [address] Jul, [facility] [address] [id number] [address] [place] [address], [place] [address] Jul, [facility] [address] [id number] [address] [place] [address], [place] [address] Jul, [facility] [address] [id number] [address] [place] [address], [place] [address] Jul, [facility] [address] [id number] [address] [place] [address], [place] [address] Jul, [facility] [address] [id number] [address] [place] [address], [place] [address] Jul, [facility] [address] [id number] [address] [place] [address], [place] [address] Jun, [facility] [address] [id number] [address] [place] [address], [place] [address] Jun, [facility] [address] [id number] [address] [place] [place] [address] [address] Jun, [facility] [address] [id number] [address] [place] [address], [place] [address] Jun, [facility] [address] [id number] [address] [place] [address], [place] [address] May, [facility] [address] [id number] [address] [place] [address], [place] [address] May, [facility] [address] [id number] [address] [place] [address], [place] [address] May, [facility] [address] [id number] [address] [place] [address], [place] [address] May, [facility] [address] [id number] [address] [place] [address], [place] [address] May, [facility] [address] [id number] [address] [place] [address], [place] [address] May, [facility] [address] [id number] [address] [place] [address], [place] [address] May, [facility] [address] [id number] [address] [place] [address], [place] [address] May, [facility] [address] [id number] [address] [place] [address] Apr, [facility] [address] [id number] [address] [place] [address] Apr, [facility] [address] [id number] [address] [place] [address] Apr, [facility] [address] [id number] [address] [place] [address], [place] [address] Apr, [facility] [address] [id number] [address] [place] [address] Apr, [facility] [address] [id number] [address] [place] [id number] Apr, [facility] [address] [id number] [address] [place] [address], [place] [address] 30 Mar, 2012 [facility] [address] [id number] [address] [place] [address], [place] [id number] 26 Mar, 2012 [facility] [address] [id number] [address] [place] [address], [place] [address] 20 Mar, 2012 [facility] [address] [id number] [address] [place] [address], [place] [id number] 17 Mar, 2012 [facility] [address] [id number] [address] [place] [address], [place] [address] 16 Mar, 2012 [facility] [address] [id number] [address] [place] [address], [place] [id number] 05 Mar, 2013 [facility] [address] [id number] [address] [place] [address], [place] [address] 27 Feb, 2013 [facility] [address] [id number] [address] [place] [address], [place] [address] Feb, [facility] [address] [id number] [address] [place] [address], [place] [address] Feb, [facility] [address] [id number] [address] [place] [address], [place] [address] Feb, [facility] [address] [id number] [address] [place] [address], [place] [address] Jan, [facility] [address] [id number] [address] [place] [address], [place] [address] Jan, [facility] [address] [id number] [address] [place] [address], [place] [address] Jan, [facility] [address] [id number] [address] [place] [address], [place] [address] Jan, [facility] [address] [id number] [address] [place] [address], [place] [address] Jan, [facility] [address] [id number] [address] [place] [address], [place] [address] Dec, [facility] [address] [id number] [address] [place] [address], [place] [address] Dec, [facility] [address] [id number] [address] [place] [address], [place] [address] Dec, [facility] [address] [id number] [address] [place] [address], [place] [address] November, [facility] [address] [id number] [address] [place] [address], [place] [address] November, [facility] [address] [id number] [address] [place] [address], [place] [address] November, [facility] [address] [id number] [address] [place] [address], [place] [address] Oct, [facility] [address] [id number] [address] [place] [address], [place] [address] Oct, [facility] [address] [id number] [address] [place] [address], [place] [address] Oct, [facility] [address] [id number] [address] [place] [address], [place] [address] Oct, [facility] [address] [id number] [address] [place] [address], [place] [id number] 18 Oct, 2012 [facility] [address] [id number] [address] [place] [address], [place] [address] 17 Oct, 2012 [facility] [address] [id number] [address] [place] [address], [place] [id number] 15 Oct, 2012 [facility] [address] [id number] [address] [place] [address], [place] [address] Sep, [facility] [address] [id number] [address] [place] [address], [place] [address] Sep, [facility] [address] [id number] [address] [place] [address], [place] [id number] 06 Sep, 2012 [facility] [address] [id number] [address] [place] [address], [place] [address] Sep, [facility] [address] [id number] [address] [place] [address], [place] [address] Aug, [facility] [address] [id number] [address] [place] [address], [place] [address] Aug, [facility] [address] [id number] [address] [place] [address], [place] [address] Aug, [facility] [address] [id number] [address] [place] [address], [place] [address] Aug, [facility] [address] [id number] [address] [place] [address], [place] [address] Aug, [facility] [address] [id number] [address] [place] [address], [place] [address] Aug, [facility] [address] [id number] [address] [place] [address], [place] [address] Jul, [facility] [address] [id number] [address] [place] [address], [place] [address] Jul, [facility] [address] [id number] [address] [place] [address], [place] [address] Jul, [facility] [address] [id number] [address] [place] [address], [place] [address] Jul, [facility] [address] [id number] [address] [place] [address], [place] [address] Jul, [facility] [address] [id number] [address] [place] [address], [place] [address] Jul, [facility] [address] [id number] [address] [place] [address], [place] [address] Jun, [facility] [address] [id number] [address] [place] [address], [place] [address] Jun, [facility] [address] [id number] [address] [place] [address], [place] [address] Jun, [facility] [address] [id number] [address] [place] [address], [place] [address] Jun, [facility] [address] [id number] [address] [place] [address], [place] [address] Jun, [facility] [address] [id number] [address] [place] [address], [place] [address] Jun, [facility] [address] [id number] [address] [place] [address], [place] [address] May, [facility] [address] [id number] [address] [place] [address], [place] [address] May, [facility] [address] [id number] [address] [place] [address], [place] [address] May, [facility] [address] [id number] [address] [place] [address], [place] [address] May, [facility] [address] [id number] [address] [place] [address], [place] [address] May, [facility] [address] [id number] [address] [place] [address], [place] [address] May, [facility] [address] [id number] [address] [place] [address], [place] [address] May, [facility] [address] [id number] [address] [place] [address], [place] [address] May, [facility] [address] [id number] [address] [place] [address], [place] [address] May, [facility] [address] [id number] [address] [place] [address], [place] [address] May, [facility] [address] [id number] [address] [place] [address], [place] [address] Apr, [facility] [address] [id number] [address] [place] [address], [place] [address] Apr, [facility] [address] [id number] [address] [place] [address], [place] [address] 23 Apr, 2012 [facility] [address] [id number] [address] [place] [address], [place] [address] 23 Apr, 2012 [facility] [address] [id number] [address] [place] [address], [place] [address] 16 Apr, 2012 [facility] [address] [id number] [address] [place] [address], [place] [address] 16 Apr, 2012 [facility] [address] [id number] [address] [place] [address], [place] [address] 15 Apr, 2012 [facility] [address] [id number] [address] [place] [address], [place] [address] 15 Apr, 2012 [facility] [address] [id number] [address] [place] [address], [place] [address] 05 Apr, 2012 [facility] [address] [id number] [address] [place] [address], [place] [address] 28 Mar, 2012 [facility] [address] [id number] [address] [place] [address], [place] [address] 26 Mar, 2012 [facility] [address] [id number] [address] [place] [address], [place] [address] 25 Mar, 2012 [facility] [address] [id number] [address] [place] [address], [place] [address] 19 Mar, 2012 [facility] [address] [id number] [address] [place] [address], [place] [address] 18 Mar, 2012 [facility] [address] [id number] [address] [place] [address], [place] [address] 05 Mar, 2012 [facility] [address] [id number] [address] [place] [address], [place] [address] 28 Feb, 2012 [facility] [address] [id number] [address] [place] [address], [place] [address] Feb, [facility] [address] [id number] [address] [place] [address], [place] [address] Feb, [facility] [address] [id number] [address] [place] [address], [place] [address] Jan, [facility] [address] [id number] [address] [place] [address], [place] [address] Jan, [facility] [address] [id number] [address] [place] [address], [place] [address] Jan, [facility] [address] [id number] [address] [place] [address], [place] [address] Jan, [facility] [address] [id number] [address] [place] [address], [place] [address] Dec, [facility] [address] [id number] [address] [place] [address], [place] [address] November, [facility] [address] [id number] [address] [place] [address], [place] [address] November, [facility] [address] [id number] [address] [place] [address], [place] [address] November, [facility] [address] [id number] [address] [place] [address], [place] [address] November, [facility] [address] [id number] [address] [place] [address], [place] [address] November, [facility] [address] [id number] [address] [place] [address], [place] [address] November, [facility] [address] [id number] [address] [place] [address], [place] [address] Oct, [facility] [address] [id number] [address] [place] [address], [place] [address] Oct, [facility] [address] [id number] [address] [place] [address], [place] [address] Sep, [facility] [address] [id number] [address] [place] [address], [place] [address] Sep, [facility] [address] [id number] [address] [place] [address], [place] [address] Sep, [facility] [address] [id number] [address] [place] [address], [place] [address] Aug, [facility] [address] [id number] [address] [place] [address], [place] [address] Aug, [facility] [address] [id number] [address] [place] [address], [place] [address] Aug, [facility] [address] [id number] [address] [place] [address], [place] [address] Aug, [facility] [address] [id number] [address] [place] [address], [place] [address] Aug, [facility] [address] [id number] [address] [place] [address], [place] [address] Aug, [facility] [address] [id number] [address] [place] [address], [place] [address] Jul, [facility] [address] [id number] [address] [place] [address], [place] [address] Jul, [facility] [address] [id number] [address] [place] [address], [place] [address] Jul, [facility] [address] [id number] [address] [place] [address], [place] [address] Jul, [facility] [address] [id number] [address] [place] [address], [place] [address] Jul, [facility] [address] [id number] [address] [place] [address], [place] [address] Jul, [facility] [address] [id number] [address] [place] [address], [place] [address] Jul, [facility] [address] [id number] [address] [place] [address], [place] [address] Jul, [facility] [address] [id number] [address] [place] [address], [place] [address] Jul, [facility] [address] [id number] [address] [place] [address], [place] [address] Jul, [facility] [address] [id number] [address] [place] [address], [place] [address] Jun, [facility] [address] [id number] [address] [place] [address], [place] [address] Jun, [facility] [address] [id number] [address] [place] [address], [place] [address] Jun, [facility] [address] [id number] [address] [place] [address], [place] [address] Jun, [facility] [address] [id number] [address] [place] [address], [place] [address] May, [facility] [address] [id number] [address] [place] [address], [place] [address] May, [facility] [address] [id number] [address] [place] [address], [place] [address] May, [facility] [address] [id number] [address] [place] [address], [place] [address] May, [facility] [address] [id number] [address] [place] [address], [place] [address] Apr, [facility] [address] [id number] [address] [place] [address], [place] [address] Apr, [facility] [address] [id number] [address] [place] [address], [place] [address] November, [facility] [address] [id number] [address] [place] [address], [place] [address] Oct, [facility] [address] [id number] [address] [place] [address], [place] [address] Aug, [facility] [address] [id number] [address] [place] [address], [place] [address] Jun, [facility] [address] [id number] [address] [place] [address], [place] [address] Jun, [facility] [address] [id number] [address] [place] [address], [place] [address] 27 Jun, 2010 [facility] [address] [id number] [address] [place] [address], [place] [address] 03 Jun, 2010 [facility] [address] [id number] [address] [place] [address], [place] [address] 29 May, 2010 [facility] [address] [id number] [address] [place] [address], [place] [address] 27 Apr, 2010 [facility] [address] [id number] [address] [place] [address], [place] [address] Oct, [facility] [address] [id number] [address] [place] [address], [place] [address] 13 Aug, 2009 [facility] [address] [id number] [address] [place] [address], [place] [address] Jul, [facility] [address] [id number] [address] [place] [address], [place] [address] 22 Jun, 2009 [facility] [address] [id number] [address] [place] [address], [place] [address] 16 Jun, 2009 [facility] [address] [id number] [address] [place] [address], [place] [address] 14 Jun, 2009 [facility] [address] [id number] [address] [place] [address], [place] [address] 14 Jun, 2009 [facility] [address] [id number] [address] [place] [address] 09 May, 2009 [facility] [address] [id number] [address] [place] [address], [place] [address] 20 Apr, 2009 [facility] [address] [id number] [address] [place] [address], [place] [address] 15 Mar, 2009 [facility] [address] [id number] [address] [place] [address], [place] [address] 14 Mar, 2009 [facility] [address] [id number] [address] [place] [address] Dec, IMMUNIZATIONS No Known Immunizations SOCIAL HISTORY Never Assessed REASON FOR VISIT te PLAN OF CARE Activity Details Follow Up KENNETH Reason: VITAL SIGNS Height 66.0 in 2017-03-12 Blood pressure systolic 119 mmHg 2017-03-12 Blood pressure diastolic 83 mmHg 2017-03-12 MEDICATIONS Medication Instructions Dosage Frequency Start Date End Date Duration S tatus Symbicort 160-4.5 MCG/ACT INHALE TWO PUFFS BY MOUTH TWICE DAILY 30 Active Duloxetine HCl 60 MG TAKE ONE CAPSULE BY MOUTH ONCE DAILY Active Meloxicam 15 MG Orally Once a day 1 tablet as needed 24h 90 days Active Triamcinolone Acetonide 0.5 % Externally Twice a day 1 appli cation to affected area 12h Jul, 10 days Active Lisinopril-Hydrochlorothiazide 20-25 MG Orally Once a day 1 tablet 24h Jul, 90 days Active Misc. Devices N/A Nebulizer machine May, Active Metformin HCl 500 mg Orally Once a day 1 tablet with meal 24h Active Clonazepam 0.5 MG Orally daily. MAX 60/month take 1-2 tabs daily up to twice a day prn anxiety 30 days Active Nicoderm CQ 21 MG/24HR Transdermal Once a day 1 patch to skin 24h Jun, 30 days Active Abilify 5 mg Orally Once a day 1/2 tablet 24h Active Ventolin HFA 108 (90 Base) MCG/ACT Inhalation every 4 hrs 2 puffs a s needed 4h Active Lancets 2 times per day Mar, Act ariella Hydrocodone-Acetaminophen 7.5-325 MG Orally Once a day at be dtime 1 tablet as needed Feb, Active Pantoprazole Sodium 40 MG TAKE ONE TABLET BY MOUTH DAILY 90 Active Neurontin 100 MG Orally Once a day at bedtime 1 capsule Oct, Active Clindamycin HCl 150 MG Orally every 8 hrs 1 capsule 8h Feb, Mar, 7 days Active Albuterol Sulfate (2.5 MG/3ML) 0.083% Inhalation 4 times a day as N eeded 3 ml Active Tramadol HCl 50 mg Orally 3 times a day 1 tablet 8h Jun, 28 days Active RESULTS No Results PROCEDURES Procedure Date Ordered Result Body Site LTD ORAL EVALUATION - PROBLEM FOCUS Mar 12, 2017 INTRAORL-PERIAPICAL 1 FILM 61686 Mar 12, 2017 SURG REMOVAL ERUPTED TOOTH Mar 12, 2017 INSTRUCTIONS MEDICATIONS ADMINISTERED No Known Medications [...]
--- OUTSIDE RECORDS SUMMARY | 2019-09-01 05:30 | XMS REPORT ---
Author Olivia Eason Organization [employer] Address Unknown Phone Unavailable Care Team Providers Care Cancer Program Coordinator Name Role Phone TYRELL BARILLAS CP Unavailable [...] Date End Date Status Dosage Nicoderm CQ [facility] [address]-98 21 MG/24HR Transdermal Once a day Jun 14, 2015 1 patch to skin Results No Known Results Summary Purpose [employer] Submission
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
--- OUTSIDE RECORDS SUMMARY | 2019-09-01 05:30 | XMS REPORT ---
Author Author Olivia BARILLAS Organization [employer] Address Unknown Phone Unavailable Care Team Providers Care General Lot Attendant Name Role Phone TYRELL BARILLAS CP Unavailable [...] Start Date End Date Status Dosage Lyrica [facility] [address]-48 50 MG Orally Once a day at hs May 02, 2015 1 capsule Results No Known Results Summary Purpose [employer] Submission
--- OUTSIDE RECORDS SUMMARY | 2019-09-01 05:31 | XMS REPORT ---
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 [address] [place] [address], [place] [address] 29 Mar, 2013 [facility] [address] [id number] [address] [place] [address], [place] [address] 29 Mar, 2013 [facility] [address] [id number] [address] [place] [address], [place] [address] 29 Mar, 2013 [facility] [address] [id number] [address] [place] [address], [place] [address] 29 Mar, 2013 [facility] [address] [id number] [address] [place] [address], [place] [address] 10 Mar, 2013 [facility] [address] [id number] [address] [place] [address], [place] [address] 10 Mar, 2013 [facility] [address] [id number] [address] [place] [address], [place] [address] 04 Sep, 2013 [facility] [address] [id number] [address] [place] [address], [place] [address] 04 Sep, 2013 [facility] [address] [id number] [address] [place] [address], [place] [address] 02 Sep, 2013 [facility] [address] [id number] [address] [place] [address], [place] [address] Sep, 2013 [facility] [address] [id number] [address] [place] [address], [place] [address] Mar, [facility] [address] [id number] [address] [place] [address], [place] [address] Mar, [facility] [address] [id number] [address] [place] [address], [place] [address] Feb, [facility] [address] [id number] [address] [place] [address], [place] [address] Feb, [facility] [address] [id number] [address] [place] [address], [place] [address] Jan, [facility] [address] [id number] [address] [place] [address], [place] [address] Jan, [facility] [address] [id number] [address] [place] [address], [place] [address] Jan, [facility] [address] [id number] [address] [place] [address], [place] [address] Jan, [facility] [address] [id number] [address] [place] [address], [place] [address] Dec, [facility] [address] [id number] [address] [place] [address], [place] [address] Dec, [facility] [address] [id number] [address] [place] [address], [place] [address] Dec, [facility] [address] [id number] [address] [place] [address], [place] [address] Dec, [facility] [address] [id number] [address] [place] [address], [place] [address] Dec, [facility] [address] [id number] [address] [place] [address], [place] [address] Dec, [facility] [address] [id number] [address] [place] [address], [place] [address] November, [facility] [address] [id number] [address] [place] [address], [place] [address] November, [facility] [address] [id number] [address] [place] [address], [place] [address] November, [facility] [address] [id number] [address] [place] [address], [place] [address] November, [facility] [address] [id number] [address] [place] [address], [place] [address] November, [facility] [address] [id number] [address] [place] [address], [place] [address] November, [address] [id number] November, [facility] [address] [id number] [address] [place] [address], [place] [address] November, [facility] [address] [id number] [address] [place] [address], [place] [address] November, [facility] [address] [id number] [address] [place] [address], [place] [address] November, [facility] [address] [id number] [address] [place] [address], [place] [address] November, [facility] [address] [id number] [address] [place] [address], [place] [address] November, [facility] [address] [id number] [address] [place] [address], [place] [address] Oct, [facility] [address] [id number] [address] [place] [address], [place] [address] Oct, [facility] [address] [id number] [address] [place] [address], [place] [address] Oct, [facility] [address] [id number] [address] [place] [address], [place] [address] Oct, [facility] [address] [id number] [address] [place] [address], [place] [address] Oct, [facility] [address] [id number] [address] [place] [address], [place] [address] Oct, [facility] [address] [id number] [address] [place] [address], [place] [address] Oct, [facility] [address] [id number] [facility] [place] [address] Oct, [facility] [address] [id number] [address] [place] [address], [place] [address] Oct, [facility] [address] [id number] [address] [place] [address], [place] [address] Oct, [facility] [address] [id number] [address] [place] [address], [place] [address] Oct, [facility] [address] [id number] [address] [place] [address], [place] [address] Oct, [facility] [address] [id number] [address] [place] [address], [place] [address] Oct, [facility] [address] [id number] [address] [place] [address], [place] [address] Oct, [facility] [address] [id number] [address] [place] [address], [place] [address] Oct, [facility] [address] [id number] [address] [place] [address], [place] [address] Sep, [facility] [address] [id number] [address] [place] [address], [place] [address] Sep, [facility] [address] [id number] [address] [place] [address], [place] [address] Sep, [facility] [address] [id number] [address] [place] [address], [place] [address] Sep, [facility] [address] [id number] [address] [place] [address], [place] [address] Aug, [facility] [address] [id number] [address] [place] [address], [place] [address] Aug, [facility] [address] [id number] [address] [place] [address], [place] [address] Aug, [facility] [address] [id number] [address] [place] [address], [place] [address] Aug, [facility] [address] [id number] [address] [place] [address], [place] [address] Jul, [facility] [address] [id number] [address] [place] [address], [place] [address] Jul, [facility] [address] [id number] [address] [place] [address], [place] [address] Jul, [facility] [address] [id number] [address] [place] [address], [place] [address] Jul, [facility] [address] [id number] [address] [place] [address], [place] [address] Jul, [facility] [address] [id number] [address] [place] [address], [place] [address] Jul, [facility] [address] [id number] [address] [place] [address], [place] [address] Jul, [facility] [address] [id number] [address] [place] [address], [place] [address] Jul, [facility] [address] [id number] [address] [place] [address], [place] [address] Jul, [facility] [address] [id number] [address] [place] [address], [place] [address] Jul, [facility] [address] [id number] [address] [place] [address], [place] [address] Jul, [facility] [address] [id number] [address] [place] [address], [place] [address] Jul, [facility] [address] [id number] [address] [place] [address], [place] [address] Jul, [facility] [address] [id number] [address] [place] [address], [place] [address] Jul, [facility] [address] [id number] [address] [place] [address], [place] [address] Jun, [facility] [address] [id number] [address] [place] [address], [place] [address] Jun, [facility] [address] [id number] [address] [place] [address], [place] [address] Jun, [facility] [address] [id number] [address] [place] [id number] Jun, [facility] [address] [id number] [address] [place] [id number] May, [facility] [address] [id number] [address] [place] [address], [place] [address] May, [facility] [address] [id number] [address] [place] [id number] May, [facility] [address] [id number] [address] [place] [address], [place] [address] May, [facility] [address] [id number] [address] [place] [address], [place] [address] May, [facility] [address] [id number] [address] [place] [address], [place] [address] May, [facility] [address] [id number] [address] [place] [address], [place] [address] May, [facility] [address] [id number] [address] [place] [id number] May, [facility] [address] [id number] [address] [place] [id number] Apr, [facility] [address] [id number] [address] [place] [address], [place] [address] Apr, [facility] [address] [id number] [address] [place] [address], [place] [address] Apr, [facility] [address] [id number] [address] [place] [address], [place] [address] Apr, [facility] [address] [id number] [address] [place] [address], [place] [address] Apr, [facility] [address] [id number] [address] [place] [address], [place] [id number] Apr, [facility] [address] [id number] [address] [place] [address], [place] [id number] 30 Mar, 2013 [facility] [address] [id number] [address] [place] [address], [place] [id number] 26 Mar, 2013 [facility] [address] [id number] [address] [place] [address], [place] [id number] 20 Mar, 2012 [facility] [address] [id number] [address] [place] [address], [place] [id number] 17 Mar, 2013 [facility] [address] [id number] [address] [place] [address], [place] [id number] 16 Mar, 2013 [facility] [address] [id number] [address] [place] [address], [place] [id number] 05 Mar, 2013 [facility] [address] [id number] [address] [place] [address], [place] [id number] Feb, [facility] [address] [id number] [address] [place] [address], [place] [id number] Feb, [facility] [address] [id number] [address] [place] [address], [place] [id number] Feb, [facility] [address] [id number] [address] [place] [address], [place] [id number] Feb, [facility] [address] [id number] [address] [place] [address], [place] [id number] Jan, [facility] [address] [id number] [address] [place] [address], [place] [id number] Jan, [facility] [address] [id number] [address] [place] [address], [place] [id number] Jan, [facility] [address] [id number] [address] [place] [address], [place] [id number] Jan, [facility] [address] [id number] [address] [place] [address], [place] [id number] 16 Jan, 2013 [facility] [address] [id number] [address] [place] [address], [place] [id number] Dec, [facility] [address] [id number] [address] [place] [address], [place] [id number] Dec, [facility] [address] [id number] [address] [place] [address], [place] [id number] Dec, [facility] [address] [id number] [address] [place] [address], [place] [id number] November, [facility] [address] [id number] [address] [place] [address], [place] [id number] November, [facility] [address] [id number] [address] [place] [address], [place] [id number] November, [facility] [address] [id number] [address] [place] [address], [place] [id number] Oct, [facility] [address] [id number] [address] [place] [address], [place] [id number] Oct, [facility] [address] [id number] [address] [place] [address], [place] [id number] Oct, [facility] [address] [id number] [address] [place] [address], [place] [id number] Oct, [facility] [address] [id number] [address] [place] [address], [place] [id number] 18 Oct, 2012 [facility] [address] [id number] [address] [place] [address], [place] [id number] 17 Oct, 2012 [facility] [address] [id number] [address] [place] [address], [place] [id number] 15 Oct, 2012 [facility] [address] [id number] [address] [place] [address], [place] [id number] Sep, [facility] [address] [id number] [address] [place] [address], [place] [id number] Sep, [facility] [address] [id number] [address] [place] [address], [place] [id number] Sep, [facility] [address] [id number] [address] [place] [address], [place] [id number] Sep, [facility] [address] [id number] [address] [place] [address], [place] [id number] Aug, [facility] [address] [id number] [address] [place] [address], [place] [id number] Aug, [facility] [address] [id number] [address] [place] [address], [place] [id number] Aug, [facility] [address] [id number] [address] [place] [address], [place] [id number] Aug, [facility] [address] [id number] [address] [place] [address], [place] [id number] Aug, [facility] [address] [id number] [address] [place] [address], [place] [id number] Aug, [facility] [address] [id number] [address] [place] [address], [place] [id number] Jul, [facility] [address] [id number] [address] [place] [address], [place] [id number] Jul, [facility] [address] [id number] [address] [place] [address], [place] [address] Jul, [facility] [address] [id number] [address] [place] [address], [place] [address] Jul, [facility] [address] [id number] [address] [place] [address], [place] [address] Jul, [facility] [address] [id number] [address] [place] [address], [place] [address] Jul, [facility] [address] [id number] [address] [place] [address], [place] [address] Jun, [facility] [address] [id number] [address] [place] [address], [place] [address] Jun, [facility] [address] [id number] [address] [place] [address], [place] [address] Jun, [facility] [address] [id number] [address] [place] [address], [place] [address] Jun, [facility] [address] [id number] [address] [place] [address], [place] [address] Jun, [facility] [address] [id number] [address] [place] [address], [place] [address] Jun, [facility] [address] [id number] [address] [place] [address], [place] [address] May, [facility] [address] [id number] [address] [place] [address], [place] [address] May, [facility] [address] [id number] [address] [place] [address], [place] [address] May, [facility] [address] [id number] [address] [place] [address], [place] [address] May, [facility] [address] [id number] [address] [place] [address], [place] [address] May, [facility] [address] [id number] [address] [place] [address], [place] [address] May, [facility] [address] [id number] [address] [place] [address], [place] [address] May, [facility] [address] [id number] [address] [place] [address], [place] [address] May, [facility] [address] [id number] [address] [place] [address], [place] [address] May, [facility] [address] [id number] [address] [place] [address], [place] [address] May, [facility] [address] [id number] [address] [place] [phone] 31 Apr, 2012 [facility] [address] [id number] [address] [place] [address], [place] [id number] 31 Apr, 2012 [facility] [address] [id number] [address] [place] [phone] 23 Apr, 2012 [facility] [address] [id number] [address] [place] [address], [place] [id number] 23 Apr, 2012 [facility] [address] [id number] [address] [place] [id number] 16 Apr, 2012 [facility] [address] [id number] [address] [place] [address], [place] [address] 16 Apr, 2012 [facility] [address] [id number] [address] [place] [id number] 15 Apr, 2012 [facility] [address] [id number] [address] [place] [phone] 15 Apr, 2012 [facility] [address] [id number] [address] [place] [address], [place] [id number] 05 Apr, 2012 [facility] [address] [id number] [address] [place] [phone] 28 Mar, 2012 [facility] [address] [id number] [address] [place] [address], [place] [id number] 26 Mar, 2012 [facility] [address] [id number] [address] [place] [phone] 25 Mar, 2012 [facility] [address] [id number] [address] [place] [phone] 19 Mar, 2012 [facility] [address] [id number] [address] [place] [address], [place] [id number] 18 Sep2011 [facility] [address] [id number] [address] [place] [phone] 05 Mar, 2012 [facility] [address] [id number] [address] [place] [address], [place] [id number] 28 Feb, 2012 [facility] [address] [id number] [address] [place] [address], [place] [id number] Feb, [facility] [address] [id number] [address] [place] [address], [place] [address] Feb, [facility] [address] [id number] [address] [place] [address], [place] [id number] Jan, [facility] [address] [id number] [address] [place] [address], [place] [address] Jan, [facility] [address] [id number] [address] [place] [address], [place] [address] Jan, [facility] [address] [id number] [address] [place] [address], [place] [id number] Jan, [facility] [address] [id number] [address] [place] [address], [place] [address] Dec, [facility] [address] [id number] [address] [place] [address], [place] [address] November, [facility] [address] [id number] [address] [place] [address], [place] [address] November, [facility] [address] [id number] [address] [place] [address], [place] [address] November, [facility] [address] [id number] [address] [place] [address], [place] [address] November, [facility] [address] [id number] [address] [place] [address], [place] [address] November, [facility] [address] [id number] [address] [place] [address], [place] [address] November, [facility] [address] [id number] [address] [place] [address], [place] [address] Oct, [facility] [address] [id number] [address] [place] [address], [place] [address] Oct, [facility] [address] [id number] [address] [place] [address], [place] [address] Sep, [facility] [address] [id number] [address] [place] [address], [place] [address] Sep, [facility] [address] [id number] [address] [place] [address], [place] [address] Sep, [facility] [address] [id number] [address] [place] [address], [place] [address] Aug, [facility] [address] [id number] [address] [place] [address], [place] [id number] Aug, [facility] [address] [id number] [address] [place] [address], [place] [address] Aug, [facility] [address] [id number] [address] [place] [address], [place] [address] Aug, [facility] [address] [id number] [address] [place] [address], [place] [address] Aug, [facility] [address] [id number] [address] [place] [address], [place] [address] Aug, [facility] [address] [id number] [address] [place] [address], [place] [address] Jul, [facility] [address] [id number] [address] [place] [address], [place] [address] Jul, [facility] [address] [id number] [address] [place] [address], [place] [address] Jul, [facility] [address] [id number] [address] [place] [address], [place] [address] Jul, [facility] [address] [id number] [address] [place] [address], [place] [address] Jul, [facility] [address] [id number] [address] [place] [address], [place] [address] Jul, [facility] [address] [id number] [address] [place] [address], [place] [id number] Jul, [facility] [address] [id number] [address] [place] [address], [place] [address] Jul, [facility] [address] [id number] [address] [place] [address], [place] [address] Jul, [facility] [address] [id number] [address] [place] [address], [place] [address] Jul, [facility] [address] [id number] [address] [place] [address], [place] [address] Jun, [facility] [address] [id number] [address] [place] [address], [place] [address] Jun, [facility] [address] [id number] [address] [place] [address], [place] [address] Jun, [facility] [address] [id number] [address] [place] [address], [place] [address] Jun, [facility] [address] [id number] [address] [place] [address], [place] [address] May, [facility] [address] [id number] [address] [place] [address], [place] [address] May, [facility] [address] [id number] [address] [place] [address], [place] [address] May, [facility] [address] [id number] [address] [place] [address], [place] [address] May, [facility] [address] [id number] [address] [place] [address], [place] [address] Apr, [facility] [address] [id number] [address] [place] [address], [place] [address] Apr, [facility] [address] [id number] [address] [place] [address], [place] [address] November, [facility] [address] [id number] [address] [place] [address], [place] [address] Oct, [facility] [address] [id number] [address] [place] [address], [place] [address] Aug, [facility] [address] [id number] [address] [place] [address], [place] [address] 28 Jun, 2010 [facility] [address] [id number] [address] [place] [address], [place] [address] 28 Jun, 2010 [facility] [address] [id number] [address] [place] [address], [place] [address] 27 Jun, 2010 [facility] [address] [id number] [address] [place] [address], [place] [id number] 03 Jun, 2010 [facility] [address] [id number] [address] [place] [address], [place] [address] 29 May, 2010 [facility] [address] [id number] [address] [place] [address], [place] [address] 27 Apr, 2010 [facility] [address] [id number] [address] [place] [address], [place] [id number] 13 Oct, 2009 [facility] [address] [id number] [address] [place] [address], [place] [address] 13 Aug, 2009 [facility] [address] [id number] [address] [place] [address], [place] [address] Jul, [facility] [address] [id number] [address] [place] [address], [place] [id number] 22 Jun, 2009 [facility] [address] [id number] [address] [place] [address], [place] [id number] 16 Jun, 2009 [facility] [address] [id number] [address] [place] [id number] 14 Jun, 2009 [facility] [address] [id number] [address] [place] [address], [place] [id number] 14 Jun, 2009 [facility] [address] [id number] [address] [place] [address], [place] [id number] 09 May, 2009 [facility] [address] [id number] [address] [place] [address], [place] [id number] 20 Apr, 2009 [facility] [address] [id number] [address] [place] [id number] 15 Mar, 2009 [facility] [address] [facility] [id number] [address] [place] [id number] 14 Mar, 2009 [facility] [address] [facility] [id number] [address] [place] [phone] Dec, IMMUNIZATIONS No Known Immunizations SOCIAL HISTORY Never Assessed REASON FOR VISIT f/u-Randell MEDELLIN PLAN OF CARE Activity Details Follow Up 4 Weeks Reason: VITAL SIGNS Height 66.0 in 2017-06-17 Weight 208.3 lbs 2017-06-17 Heart Rate 84 bpm 2017-06-17 Respiratory Rate 18 2017-06-17 BMI 33.62 kg/m2 2017-06-17 Blood pressure systolic 132 mmHg 2017-06-17 Blood pressure diastolic 86 mmHg 2017-06-17 MEDICATIONS Medication Instructions Dosage Frequency Start Date End Date Duration S tatus Meloxicam 15 MG Orally Once a day 1 tablet as needed 24h 90 days Active Risperdal 0.5 MG Orally every night 1 tablet Jun, 30 day(s) Active Metformin HCl 500 MG TAKE TWO TABLETS BY MOUTH TWICE DAILY W ITH MEALS 30 Active Loratadine 10 MG TAKE ONE TABLET BY MOUTH AT BEDTIME FOR ALLERGI ES 30 Active Misc. Devices N/A Nebulizer machine May, Active Tramadol HCl 50 mg Orally 3 times a day 1 tablet 8h Jun, 28 days Active Duloxetine HCl 60 MG Orally every morning 2 capsule 30 days Active Onzetra Xsail 11 MG/NOSEPC Nasally Once a day 1 spray in ea ch nostril as needed one time 24h Apr, Not-Taking Hydrocodone-Acetaminophen 7.5-325 MG Orally Once a day at be dtime 1 tablet as needed Feb, Not-Taking Lisinopril-Hydrochlorothiazide 20-25 MG Orally Once a day 1 tablet 24h Jul, 90 days Active Symbicort 160-4.5 MCG/ACT INHALE TWO PUFFS BY MOUTH TWICE DAILY 90 Active Pantoprazole Sodium 40 MG TAKE ONE TABLET BY MOUTH DAILY 90 Active Albuterol Sulfate (2.5 MG/3ML) 0.083% Inhalation 4 times a day as N eeded 3 ml Active Nicoderm CQ 21 MG/24HR Transdermal Once a day 1 patch to skin 24h Jun, 30 days Not-Taking Ventolin HFA 108 (90 Base) MCG/ACT Inhalation every 4 hrs 2 puffs a s needed 4h 30 Active Triamcinolone Acetonide 0.5 % Externally Twice a day 1 appli cation to affected area 12h 30 Jul, 2016 10 days Active ProAir HFA 108 (90 Base) MCG/ACT Inhalation every 6 hrs 2 puffs as ne eded 6h 30 days Not-Taking Clonazepam 0.5 MG Orally daily. MAX 60/month take 1-2 tabs daily up to twice a day prn anxiety Active Lancets 2 times per day Mar, Act ariella Neurontin 100 MG Orally Once a day at bedtime 1 capsule Oct, Not-Taking RESULTS No Results PROCEDURES Procedure Date Ordered Result Body Site [facility] VISIT ESTABLISHED PATIENT Jun 17, 2017 INSTRUCTIONS MEDICATIONS ADMINISTERED No Known Medications [...]
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
--- OUTSIDE RECORDS SUMMARY | 2019-09-01 05:31 | XMS REPORT ---
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 [id number] [address] [place] [address], [place] [address] Apr, [facility] [address] [id number] [address] [place] [address], [place] [address] 29 Mar, 2013 [facility] [address] [id number] [address] [place] [address], [place] [address] 29 Mar, 2013 [facility] [address] [id number] [address] [place] [address], [place] [address] 29 Mar, 2013 [facility] [address] [id number] [address] [place] [address], [place] [address] 29 Mar, 2013 [facility] [address] [id number] [address] [place] [address], [place] [address] 10 Mar, 2013 [facility] [address] [id number] [address] [place] [address], [place] [address] 10 Mar, 2013 [facility] [address] [id number] [address] [place] [address], [place] [address] 04 Mar, 2013 [facility] [address] [id number] [address] [place] [address], [place] [address] 04 Mar, 2013 [facility] [address] [id number] [address] [place] [address], [place] [address] Mar, 2013 [facility] [address] [id number] [address] [place] [address], [place] [address] Mar, 2013 [facility] [address] [id number] [address] [place] [address], [place] [address] Mar, 2013 [facility] [address] [id number] [address] [place] [address], [place] [address] Mar, 2013 [facility] [address] [id number] [address] [place] [address], [place] [address] Feb, [facility] [address] [id number] [address] [place] [address], [place] [address] Feb, [facility] [address] [id number] [address] [place] [address], [place] [address] Jan, [facility] [address] [id number] [address] [place] [address], [place] [address] Jan, [facility] [address] [id number] [address] [place] [address], [place] [address] Jan, [facility] [address] [id number] [address] [place] [address], [place] [address] Jan, [facility] [address] [id number] [address] [place] [address], [place] [address] Dec, [facility] [address] [id number] [address] [place] [address], [place] [address] Dec, [facility] [address] [id number] [address] [place] [address], [place] [address] Dec, [facility] [address] [id number] [address] [place] [address], [place] [address] Dec, [facility] [address] [id number] [address] [place] [address], [place] [address] Dec, [facility] [address] [id number] [address] [place] [address], [place] [address] Dec, [facility] [address] [id number] [address] [place] [address], [place] [address] November, [facility] [address] [id number] [address] [place] [address], [place] [address] November, [facility] [address] [id number] [address] [place] [address], [place] [address] November, [facility] [address] [id number] [address] [place] [address], [place] [address] November, [facility] [address] [id number] [address] [place] [address], [place] [address] November, [facility] [address] [id number] [address] [place] [address], [place] [address] November, [facility] [address] [place] [id number] November, [facility] [address] [id number] [address] [place] [address], [place] [address] November, [facility] [address] [id number] [address] [place] [address], [place] [address] November, [facility] [address] [id number] [address] [place] [address], [place] [address] November, [facility] [address] [id number] [address] [place] [address], [place] [address] November, [facility] [address] [id number] [address] [place] [address], [place] [address] November, [facility] [address] [id number] [address] [place] [address], [place] [address] Oct, [facility] [address] [id number] [address] [place] [address], [place] [address] Oct, [facility] [address] [id number] [address] [place] [address], [place] [address] Oct, [facility] [address] [id number] [address] [place] [address], [place] [address] Oct, [facility] [address] [id number] [address] [place] [address], [place] [address] Oct, [facility] [address] [id number] [address] [place] [address], [place] [address] Oct, [facility] [address] [id number] [address] [place] [address], [place] [address] Oct, [facility] [address] [id number] [address] [place] [address], [place] [address] Oct, [facility] [address] [id number] [address] [place] [address], [place] [address] Oct, [facility] [address] [id number] [address] [place] [address], [place] [address] Oct, [facility] [address] [id number] [address] [place] [address], [place] [address] Oct, [facility] [address] [id number] [address] [place] [address], [place] [address] Oct, [facility] [address] [id number] [address] [place] [address], [place] [address] Oct, [facility] [address] [id number] [address] [place] [address], [place] [address] Oct, [facility] [address] [id number] [address] [place] [address], [place] [address] Oct, [facility] [address] [id number] [address] [place] [address], [place] [address] Sep, [facility] [address] [id number] [address] [place] [address], [place] [address] Sep, [facility] [address] [id number] [address] [place] [address], [place] [address] Sep, [facility] [address] [id number] [address] [place] [address], [place] [address] Sep, [facility] [address] [id number] [address] [place] [address], [place] [address] Aug, [facility] [address] [id number] [address] [place] [address], [place] [address] Aug, [facility] [address] [id number] [address] [place] [address], [place] [address] Aug, [facility] [address] [id number] [address] [place] [address], [place] [address] Aug, [facility] [address] [id number] [address] [place] [address], [place] [address] Jul, [facility] [address] [id number] [address] [place] [address], [place] [address] Jul, [facility] [address] [id number] [address] [place] [address], [place] [address] Jul, [facility] [address] [id number] [address] [place] [address], [place] [address] Jul, [facility] [address] [id number] [address] [place] [address], [place] [address] Jul, [facility] [address] [id number] [address] [place] [address], [place] [address] Jul, [facility] [address] [id number] [address] [place] [address], [place] [address] Jul, [facility] [address] [id number] [address] [place] [address], [place] [address] Jul, [facility] [address] [id number] [address] [place] [address], [place] [address] Jul, [facility] [address] [id number] [address] [place] [address], [place] [address] Jul, [facility] [address] [id number] [address] [place] [address], [place] [address] Jul, [facility] [address] [id number] [address] [place] [address], [place] [address] Jul, [facility] [address] [id number] [address] [place] [address], [place] [address] Jul, [facility] [address] [id number] [address] [place] [address], [place] [address] Jul, [facility] [address] [id number] [address] [place] [address], [place] [address] Jun, [facility] [address] [id number] [address] [place] [address], [place] [address] Jun, [facility] [address] [id number] [address] [place] [address], [place] [address] Jun, [facility] [address] [id number] [address] [place] [address], [place] [address] Jun, [facility] [address] [id number] [address] [place] [address], [place] [address] May, [facility] [address] [id number] [address] [place] [address], [place] [address] May, [facility] [address] [id number] [address] [place] [address] May, [facility] [address] [id number] [address] [place] [address], [place] [address] May, [facility] [address] [id number] [address] [place] [address], [place] [address] May, [facility] [address] [id number] [address] [place] [address], [place] [address] May, [facility] [address] [id number] [address] [place] [address], [place] [address] May, [facility] [address] [id number] [address] [place] [address], [place] [address] May, [facility] [address] [id number] [address] [place] [address], [place] [address] Apr, [facility] [address] [id number] [address] [place] [address] Apr, [facility] [address] [id number] [address] [place] [address] Apr, [facility] [address] [id number] [address] [place] [address], [place] [address] Apr, [facility] [address] [id number] [address] [place] [address] Apr, [facility] [address] [id number] [address] [place] [address], [place] [address] Apr, [facility] [address] [id number] [address] [place] [address], [place] [address] 30 Mar, 2012 [facility] [address] [id number] [address] [place] [address], [place] [address] 26 Mar, 2013 [facility] [address] [id number] [address] [place] [address], [place] [address] 20 Mar, 2012 [facility] [address] [id number] [address] [place] [address], [place] [address] 17 Mar, 2012 [facility] [address] [id number] [address] [place] [address], [place] [address] 16 Mar, 2013 [facility] [address] [id number] [address] [place] [address], [place] [address] 05 Mar, 2013 [facility] [address] [id number] [address] [place] [address], [place] [address] 27 Feb, 2013 [facility] [address] [id number] [address] [place] [address], [place] [address] Feb, [facility] [address] [id number] [address] [place] [address], [place] [address] Feb, [facility] [address] [id number] [address] [place] [address], [place] [address] Feb, [facility] [address] [id number] [address] [place] [address], [place] [address] Jan, [facility] [address] [id number] [address] [place] [address], [place] [address] Jan, [facility] [address] [id number] [address] [place] [address], [place] [address] Jan, [facility] [address] [id number] [address] [place] [address], [place] [address] Jan, [facility] [address] [id number] [address] [place] [address], [place] [address] 16 Jan, 2013 [facility] [address] [id number] [address] [place] [address], [place] [address] Dec, [facility] [address] [id number] [address] [place] [address], [place] [address] Dec, [facility] [address] [id number] [address] [place] [address], [place] [address] Dec, [facility] [address] [id number] [address] [place] [address], [place] [address] November, [facility] [address] [id number] [address] [place] [address], [place] [address] November, [facility] [address] [id number] [address] [place] [address], [place] [address] November, [facility] [address] [id number] [address] [place] [address], [place] [address] Oct, [facility] [address] [id number] [address] [place] [address], [place] [address] Oct, [facility] [address] [id number] [address] [place] [address], [place] [address] Oct, [facility] [address] [id number] [address] [place] [address], [place] [address] Oct, [facility] [address] [id number] [address] [place] [address], [place] [address] Oct, [facility] [address] [id number] [address] [place] [address], [place] [address] Oct, [facility] [address] [id number] [address] [place] [address], [place] [address] 15 Oct, 2012 [facility] [address] [id number] [address] [place] [address], [place] [address] Sep, [facility] [address] [id number] [address] [place] [address], [place] [address] Sep, [facility] [address] [id number] [address] [place] [address], [place] [address] 06 Sep, 2012 [facility] [address] [id number] [address] [place] [address] Sep, [facility] [address] [id number] [address] [place] [address], [place] [address] Aug, [facility] [address] [id number] [address] [place] [address], [place] [address] Aug, [facility] [address] [id number] [address] [place] [address], [place] [address] Aug, [facility] [address] [id number] [address] [place] [address], [place] [address] Aug, [facility] [address] [id number] [address] [place] [address], [place] [address] Aug, [facility] [address] [id number] [address] [place] [address], [place] [address] Aug, [facility] [address] [id number] [address] [place] [address], [place] [address] Jul, [facility] [address] [id number] [address] [place] [address], [place] [address] Jul, [facility] [address] [id number] [address] [place] [address], [place] [address] Jul, [facility] [address] [id number] [address] [place] [address], [place] [address] Jul, [facility] [address] [id number] [address] [place] [address], [place] [address] Jul, [facility] [address] [id number] [address] [place] [address], [place] [address] Jul, [facility] [address] [id number] [address] [place] [address], [place] [address] Jun, [facility] [address] [id number] [address] [place] [address], [place] [address] Jun, [facility] [address] [id number] [address] [place] [address], [place] [address] Jun, [facility] [address] [id number] [address] [place] [address], [place] [address] Jun, [facility] [address] [id number] [address] [place] [address], [place] [address] Jun, [facility] [address] [id number] [address] [place] [address], [place] [address] Jun, [facility] [address] [id number] [address] [place] [address], [place] [address] May, [facility] [address] [id number] [address] [place] [address], [place] [address] May, [facility] [address] [id number] [address] [place] [address], [place] [address] May, [facility] [address] [id number] [address] [place] [address], [place] [address] May, [facility] [address] [id number] [address] [place] [address], [place] [address] May, [facility] [address] [id number] [address] [place] [address], [place] [address] May, [facility] [address] [id number] [address] [place] [address], [place] [address] May, [facility] [address] [id number] [address] [place] [address], [place] [address] May, [facility] [address] [id number] [address] [place] [address], [place] [address] May, [facility] [address] [id number] [address] [place] [address], [place] [address] May, [facility] [address] [id number] [address] [place] [address], [place] [address] Apr, [facility] [address] [id number] [address] [place] [address], [place] [address] Apr, [facility] [address] [id number] [address] [place] [address] 23 Apr, 2012 [facility] [address] [id number] [address] [place] [address], [place] [address] 23 Apr, 2012 [facility] [address] [id number] [address] [place] [address], [place] [address] 16 Apr, 2012 [facility] [address] [id number] [address] [place] [address], [place] [address] 16 Apr, 2012 [facility] [address] [id number] [address] [place] [address], [place] [address] 15 Apr, 2012 [facility] [address] [id number] [address] [place] [address], [place] [address] 15 Apr, 2012 [facility] [address] [id number] [address] [place] [address], [place] [address] 05 Apr, 2012 [facility] [address] [id number] [address] [place] [address], [place] [address] 28 Mar, 2012 [facility] [address] [id number] [address] [place] [address], [place] [address] 26 Mar, 2012 [facility] [address] [id number] [address] [place] [address], [place] [address] 25 Mar, 2012 [facility] [address] [id number] [address] [place] [address], [place] [address] 19 Mar, 2012 [facility] [address] [id number] [address] [place] [address], [place] [address] 18 Mar, 2012 [facility] [address] [id number] [address] [place] [address], [place] [address] 05 Mar, 2012 [facility] [address] [id number] [address] [place] [address], [place] [address] 28 Feb, 2012 [facility] [address] [id number] [address] [place] [address], [place] [address] Feb, [facility] [address] [id number] [address] [place] [address], [place] [address] Feb, [facility] [address] [id number] [address] [place] [address], [place] [address] 31 Jan, 2012 [facility] [address] [id number] [address] [place] [address], [place] [address] Jan, [facility] [address] [id number] [address] [place] [address], [place] [address] Jan, [facility] [address] [id number] [address] [place] [address], [place] [address] Jan, [facility] [address] [id number] [address] [place] [address], [place] [address] Dec, [facility] [address] [id number] [address] [place] [address], [place] [address] November, [facility] [address] [id number] [address] [place] [address], [place] [address] November, [facility] [address] [id number] [address] [place] [address], [place] [address] November, [facility] [address] [id number] [address] [place] [address], [place] [address] November, [facility] [address] [id number] [address] [place] [address], [place] [address] November, [facility] [address] [id number] [address] [place] [address], [place] [address] November, [facility] [address] [id number] [address] [place] [address], [place] [address] Oct, [facility] [address] [id number] [address] [place] [address], [place] [address] Oct, [facility] [address] [id number] [address] [place] [address], [place] [address] Sep, [facility] [address] [id number] [address] [place] [address], [place] [address] Sep, [facility] [address] [id number] [address] [place] [address], [place] [address] Sep, [facility] [address] [id number] [address] [place] [address], [place] [address] Aug, [facility] [address] [id number] [address] [place] [address], [place] [address] Aug, [facility] [address] [id number] [address] [place] [address], [place] [address] Aug, [facility] [address] [id number] [address] [place] [address], [place] [address] Aug, [facility] [address] [id number] [address] [place] [address], [place] [address] Aug, [facility] [address] [id number] [address] [place] [address], [place] [address] Aug, [facility] [address] [id number] [address] [place] [address], [place] [address] Jul, [facility] [address] [id number] [address] [place] [address], [place] [address] Jul, [facility] [address] [id number] [address] [place] [address], [place] [address] Jul, [facility] [address] [id number] [address] [place] [address], [place] [address] Jul, [facility] [address] [id number] [address] [place] [address], [place] [address] Jul, [facility] [address] [id number] [address] [place] [address], [place] [address] Jul, [facility] [address] [id number] [address] [place] [address], [place] [address] Jul, [facility] [address] [id number] [address] [place] [address], [place] [address] Jul, [facility] [address] [id number] [address] [place] [address], [place] [address] Jul, [facility] [address] [id number] [address] [place] [address], [place] [address] Jul, [facility] [address] [id number] [address] [place] [address], [place] [address] Jun, [facility] [address] [id number] [address] [place] [address], [place] [address] Jun, [facility] [address] [id number] [address] [place] [address], [place] [address] Jun, [facility] [address] [id number] [address] [place] [address], [place] [address] Jun, [facility] [address] [id number] [address] [place] [address], [place] [address] May, [facility] [address] [id number] [address] [place] [address], [place] [address] May, [facility] [address] [id number] [address] [place] [address], [place] [address] May, [facility] [address] [id number] [address] [place] [address], [place] [address] May, [facility] [address] [id number] [address] [place] [address], [place] [address] Apr, [facility] [address] [id number] [address] [place] [address], [place] [address] 31 Apr, 2011 [facility] [address] [id number] [address] [place] [address], [place] [address] November, [facility] [address] [id number] [address] [place] [address], [place] [address] Oct, [facility] [address] [id number] [address] [place] [address], [place] [address] Aug, [facility] [address] [id number] [address] [place] [address], [place] [address] Jun, [facility] [address] [id number] [address] [place] [address], [place] [address] Jun, [facility] [address] [id number] [address] [place] [address], [place] [address] 27 Jun, 2010 [facility] [address] [id number] [address] [place] [address], [place] [address] 03 Jun, 2010 [facility] [address] [id number] [address] [place] [address], [place] [address] 29 May, 2010 [facility] [address] [id number] [address] [place] [address], [place] [address] 27 Apr, 2010 [facility] [address] [id number] [address] [place] [address], [place] [address] 13 Oct, 2009 [facility] [address] [id number] [address] [place] [address], [place] [address] 13 Aug, 2009 [facility] [address] [id number] [address] [place] [address], [place] [address] 20 Jul, 2009 [facility] [address] [id number] [address] [place] [address], [place] [address] 22 Jun, 2009 [facility] [address] [id number] [address] [place] [address], [place] [address] 16 Jun, 2009 [facility] [address] [id number] [address] [place] [address], [place] [address] 14 Jun, 2009 [facility] [address] [id number] [address] [place] [address], [place] [address] 14 Jun, 2009 [facility] [address] [id number] [address] [place] [address] 09 May, 2009 [facility] [address] [id number] [address] [place] [address], [place] [address] 20 Apr, 2009 [facility] [address] [id number] [address] [place] [address], [place] [address] 15 Mar, 2009 [facility] [address] [id number] [address] [place] [address], [place] [address] 14 Mar, 2009 [facility] [address] [id number] [address] [place] [address], [place] [address] 11 Dec, 2008 IMMUNIZATIONS No Known Immunizations SOCIAL HISTORY Never Assessed REASON FOR VISIT Repower 18M ASMT--Julian PLAN OF CARE VITAL SIGNS Height 66.0 in 2017-04-21 Weight 201.7 lbs 2017-04-21 Temperature 98.3 degrees Fahrenheit 2017-04-21 Heart Rate 88 bpm 2017-04-21 Respiratory Rate 16 2017-04-21 BMI 32.55 kg/m2 2017-04-21 Blood pressure systolic 118 mmHg 2017-04-21 Blood pressure diastolic 20 mmHg 2017-04-21 MEDICATIONS Unknown Medications RESULTS No Results PROCEDURES Procedure Date Ordered Result Body Site No Charge Apr 21, 2017 INSTRUCTIONS MEDICATIONS ADMINISTERED No Known Medications [...]
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
--- OUTSIDE RECORDS SUMMARY | 2019-09-01 05:32 | XMS REPORT ---
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 [place] [address], [place] [address] Apr, [facility] [address] [id number] [address] [place] [address], [place] [address] Apr, [facility] [address] [id number] [address] [place] [address], [place] [address] Apr, [facility] [address] [id number] [address] [place] [address], [place] [address] Apr, [facility] [address] [id number] [address] [place] [address], [place] [address] Apr, [facility] [address] [id number] [address] [place] [address], [place] [address] Apr, [facility] [address] [id number] [address] [place] [address], [place] [address] Apr, [facility] [address] [id number] [address] [place] [address], [place] [address] 29 Mar, 2013 [facility] [address] [id number] [address] [place] [address], [place] [address] 29 Mar, 2013 [facility] [address] [id number] [address] [place] [address], [place] [address] 29 Mar, 2013 [facility] [address] [id number] [address] [place] [address], [place] [address] 29 Mar, 2013 [facility] [address] [id number] [address] [place] [address], [place] [address] 10 Mar, 2013 [facility] [address] [id number] [address] [place] [address] 10 Mar, 2013 [facility] [address] [id number] [address] [place] [address] Sep, 2013 [facility] [address] [id number] [address] [place] [address], [place] [address] 04 Sep, 2013 [facility] [address] [id number] [address] [place] [address], [place] [address] 02 Mar, 2013 [facility] [address] [id number] [address] [place] [address], [place] [address] Mar, 2013 [facility] [address] [id number] [address] [place] [address], [place] [address] Mar, [facility] [address] [id number] [address] [place] [address], [place] [address] Mar, [facility] [address] [id number] [address] [place] [address], [place] [address] Feb, [facility] [address] [id number] [address] [place] [address], [place] [address] Feb, [facility] [address] [id number] [address] [place] [address], [place] [address] Jan, [facility] [address] [id number] [address] [place] [address], [place] [address] Jan, [facility] [address] [id number] [address] [place] [address], [place] [address] Jan, [facility] [address] [id number] [address] [place] [address], [place] [address] Jan, [facility] [address] [id number] [address] [place] [address], [place] [address] Dec, [facility] [address] [id number] [address] [place] [address], [place] [address] Dec, [facility] [address] [id number] [address] [place] [address], [place] [address] Dec, [facility] [address] [id number] [address] [place] [address], [place] [address] Dec, [facility] [address] [id number] [address] [place] [address], [place] [address] Dec, [facility] [address] [id number] [address] [place] [address], [place] [address] Dec, [facility] [address] [id number] [address] [place] [address], [place] [address] November, [facility] [address] [id number] [address] [place] [address], [place] [address] November, [facility] [address] [id number] [address] [place] [address], [place] [address] November, [facility] [address] [id number] [address] [place] [address], [place] [address] November, [facility] [address] [id number] [address] [place] [address], [place] [address] November, [facility] [address] [id number] [address] [place] [address], [place] [address] November, [facility] [address] [facility] [id number] November, [facility] [address] [id number] [address] [place] [address], [place] [address] November, [facility] [address] [id number] [address] [place] [address], [place] [address] November, [facility] [address] [id number] [address] [place] [address], [place] [address] November, [facility] [address] [id number] [address] [place] [address], [place] [address] November, [facility] [address] [id number] [address] [place] [address], [place] [address] November, [facility] [address] [id number] [address] [place] [address], [place] [address] Oct, [facility] [address] [id number] [address] [place] [address], [place] [address] Oct, [facility] [address] [id number] [address] [place] [address], [place] [address] Oct, [facility] [address] [id number] [address] [place] [address], [place] [address] Oct, [facility] [address] [id number] [address] [place] [address], [place] [address] Oct, [facility] [address] [id number] [address] [place] [address], [place] [address] Oct, [facility] [address] [id number] [facility] [place] [address] Oct, [facility] [address] [id number] [facility] [place] [address] Oct, [facility] [address] [id number] [facility] [place] [address] Oct, [facility] [address] [id number] [address] [place] [address], [place] [address] Oct, [facility] [address] [id number] [address] [place] [address], [place] [address] Oct, [facility] [address] [id number] [address] [place] [address], [place] [address] Oct, [facility] [address] [id number] [address] [place] [address], [place] [address] Oct, [facility] [address] [id number] [address] [place] [address], [place] [address] Oct, [facility] [address] [id number] [address] [place] [address], [place] [address] Oct, [facility] [address] [id number] [address] [place] [address], [place] [address] Sep, [facility] [address] [id number] [address] [place] [address], [place] [address] Sep, [facility] [address] [id number] [address] [place] [address], [place] [address] Sep, [facility] [address] [id number] [address] [place] [address], [place] [address] Sep, [facility] [address] [id number] [address] [place] [address], [place] [address] Aug, [facility] [address] [id number] [address] [place] [address], [place] [address] Aug, [facility] [address] [id number] [address] [place] [address], [place] [address] Aug, [facility] [address] [id number] [address] [place] [address], [place] [address] Aug, [facility] [address] [id number] [address] [place] [address], [place] [address] Jul, [facility] [address] [id number] [address] [place] [address], [place] [address] Jul, [facility] [address] [id number] [address] [place] [address], [place] [address] Jul, [facility] [address] [id number] [address] [place] [address], [place] [address] Jul, [facility] [address] [id number] [address] [place] [address], [place] [address] Jul, [facility] [address] [id number] [address] [place] [address], [place] [address] Jul, [facility] [address] [id number] [address] [place] [address], [place] [address] Jul, [facility] [address] [id number] [address] [place] [address], [place] [address] Jul, [facility] [address] [id number] [address] [place] [address], [place] [address] Jul, [facility] [address] [id number] [address] [place] [address], [place] [address] Jul, [facility] [address] [id number] [address] [place] [address], [place] [address] Jul, [facility] [address] [id number] [address] [place] [address], [place] [address] Jul, [facility] [address] [id number] [address] [place] [address], [place] [address] Jul, [facility] [address] [id number] [address] [place] [address], [place] [address] Jul, [facility] [address] [id number] [address] [place] [address], [place] [address] Jun, [facility] [address] [id number] [address] [place] [address], [place] [address] Jun, [facility] [address] [id number] [address] [place] [address], [place] [address] Jun, [facility] [address] [id number] [address] [place] [address], [place] [address] Jun, [facility] [address] [id number] [address] [place] [address], [place] [address] May, [facility] [address] [id number] [address] [place] [address], [place] [address] May, [facility] [address] [id number] [address] [place] [address], [place] [address] May, [facility] [address] [id number] [address] [place] [address], [place] [address] May, [facility] [address] [id number] [address] [place] [address], [place] [address] May, [facility] [address] [id number] [address] [place] [id number] May, [facility] [address] [id number] [address] [place] [address] May, [facility] [address] [id number] [address] [place] [address] May, [facility] [address] [id number] [address] [place] [address], [place] [address] Apr, [facility] [address] [id number] [address] [place] [address], [place] [address] Apr, [facility] [address] [id number] [address] [place] [address] Apr, [facility] [address] [id number] [address] [place] [address] Apr, [facility] [address] [id number] [address] [place] [address], [place] [address] Apr, [facility] [address] [id number] [address] [place] [address], [place] [address] Apr, [facility] [address] [id number] [address] [place] [address], [place] [address] 30 Mar, 2013 [facility] [address] [id number] [address] [place] [address], [place] [address] 26 Mar, 2013 [facility] [address] [id number] [address] [place] [address], [place] [address] 20 Mar, 2013 [facility] [address] [id number] [address] [place] [address], [place] [address] 17 Mar, 2013 [facility] [address] [id number] [address] [place] [address], [place] [address] 16 Mar, 2013 [facility] [address] [id number] [address] [place] [address], [place] [address] 05 Mar, 2013 [facility] [address] [id number] [address] [place] [address], [place] [address] Feb, [facility] [address] [id number] [address] [place] [address], [place] [address] Feb, [facility] [address] [id number] [address] [place] [address], [place] [address] Feb, [facility] [address] [id number] [address] [place] [address], [place] [address] Feb, [facility] [address] [id number] [address] [place] [address], [place] [address] Jan, [facility] [address] [id number] [address] [place] [address], [place] [address] Jan, [facility] [address] [id number] [address] [place] [address], [place] [address] Jan, [facility] [address] [id number] [address] [place] [address], [place] [address] 23 Jan, 2013 [facility] [address] [id number] [address] [place] [address], [place] [address] 16 Jan, 2013 [facility] [address] [id number] [address] [place] [address], [place] [address] Dec, [facility] [address] [id number] [address] [place] [address], [place] [address] Dec, [facility] [address] [id number] [address] [place] [address], [place] [address] Dec, [facility] [address] [id number] [address] [place] [address], [place] [address] November, [facility] [address] [id number] [address] [place] [address], [place] [address] November, [facility] [address] [id number] [address] [place] [address], [place] [address] November, [facility] [address] [id number] [address] [place] [address], [place] [address] Oct, [facility] [address] [id number] [address] [place] [address], [place] [address] Oct, [facility] [address] [id number] [address] [place] [address], [place] [address] Oct, [facility] [address] [id number] [address] [place] [address], [place] [address] Oct, [facility] [address] [id number] [address] [place] [address], [place] [address] 18 Oct, 2012 [facility] [address] [id number] [address] [place] [address], [place] [address] 17 Oct, 2012 [facility] [address] [id number] [address] [place] [address], [place] [address] 15 Oct, 2012 [facility] [address] [id number] [address] [place] [address], [place] [address] Sep, [facility] [facility] [address] [id number] [facility] [place] [address] Sep, [facility] [address] [id number] [address] [place] [address], [place] [address] Sep, [facility] [address] [id number] [address] [place] [address], [place] [address] Sep, [facility] [address] [id number] [address] [place] [address], [place] [address] Aug, [facility] [address] [id number] [address] [place] [address], [place] [address] Aug, [facility] [address] [id number] [address] [place] [address], [place] [address] Aug, [facility] [address] [id number] [address] [place] [address], [place] [address] Aug, [facility] [address] [id number] [address] [place] [address], [place] [address] Aug, [facility] [address] [id number] [address] [place] [address], [place] [address] Aug, [facility] [address] [id number] [address] [place] [address], [place] [address] Jul, [facility] [address] [id number] [address] [place] [address], [place] [address] Jul, [facility] [address] [id number] [address] [place] [address], [place] [address] Jul, [facility] [address] [id number] [address] [place] [address], [place] [address] Jul, [facility] [address] [id number] [address] [place] [address], [place] [address] Jul, [facility] [address] [id number] [address] [place] [address], [place] [address] Jul, [facility] [address] [id number] [address] [place] [address], [place] [address] Jun, [facility] [address] [id number] [address] [place] [address], [place] [address] Jun, [facility] [address] [id number] [address] [place] [address], [place] [address] Jun, [facility] [address] [id number] [address] [place] [address], [place] [address] Jun, [facility] [address] [id number] [address] [place] [address], [place] [address] Jun, [facility] [address] [id number] [address] [place] [address], [place] [address] Jun, [facility] [address] [id number] [address] [place] [address], [place] [address] May, [facility] [address] [id number] [address] [place] [address], [place] [address] May, [facility] [address] [id number] [address] [place] [address], [place] [address] May, [facility] [address] [id number] [address] [place] [address], [place] [address] May, [facility] [address] [id number] [address] [place] [address], [place] [address] May, [facility] [address] [id number] [address] [place] [address], [place] [address] May, [facility] [address] [id number] [address] [place] [address], [place] [address] May, [facility] [address] [id number] [address] [place] [address], [place] [address] May, [facility] [address] [id number] [address] [place] [address], [place] [address] May, [facility] [address] [id number] [address] [place] [address], [place] [address] May, [facility] [address] [id number] [address] [place] [address], [place] [address] 31 Apr, 2012 [facility] [address] [id number] [address] [place] [address], [place] [address] 31 Apr, 2012 [facility] [address] [id number] [address] [place] [address], [place] [address] 23 Apr, 2012 [facility] [address] [id number] [address] [place] [address], [place] [address] 23 Apr, 2012 [facility] [address] [id number] [address] [place] [address], [place] [address] 16 Apr, 2012 [facility] [address] [id number] [address] [place] [address], [place] [address] 16 Apr, 2012 [facility] [address] [id number] [address] [place] [address], [place] [address] 15 Apr, 2012 [facility] [address] [id number] [address] [place] [address] 15 Apr, 2012 [facility] [address] [id number] [address] [place] [address], [place] [address] 05 Apr, 2012 [facility] [address] [id number] [address] [place] [address] 28 Mar, 2012 [facility] [address] [id number] [address] [place] [address] 26 Sep2011 [facility] [address] [id number] [address] [place] [address] 25 Sep, 2011 [facility] [address] [id number] [address] [place] [address] 19 Sep, 2011 [facility] [address] [id number] [address] [place] [address] 18 Sep, 2011 [facility] [address] [id number] [address] [place] [address] 05 Sep, 2011 [facility] [address] [id number] [address] [place] [address] Feb, [facility] [address] [id number] [address] [place] [address], [place] [address] Feb, [facility] [address] [id number] [address] [place] [address], [place] [address] Feb, [facility] [address] [id number] [address] [place] [address], [place] [address] Jan, [facility] [address] [id number] [address] [place] [address], [place] [address] Jan, [facility] [address] [id number] [address] [place] [address], [place] [address] Jan, [facility] [address] [id number] [address] [place] [address], [place] [address] Jan, [facility] [address] [id number] [address] [place] [address], [place] [address] Dec, [facility] [address] [id number] [address] [place] [address], [place] [address] November, [facility] [address] [id number] [address] [place] [address], [place] [address] November, [facility] [address] [id number] [address] [place] [address], [place] [address] November, [facility] [address] [id number] [address] [place] [address], [place] [address] November, [facility] [address] [id number] [address] [place] [address], [place] [address] November, [facility] [address] [id number] [address] [place] [address], [place] [address] November, [facility] [address] [id number] [address] [place] [address], [place] [address] Oct, [facility] [address] [id number] [address] [place] [address], [place] [address] Oct, [facility] [address] [id number] [address] [place] [address], [place] [address] Sep, [facility] [address] [id number] [address] [place] [address], [place] [address] Sep, [facility] [address] [id number] [address] [place] [address], [place] [address] Sep, [facility] [address] [id number] [address] [place] [address], [place] [address] Aug, [facility] [address] [id number] [address] [place] [address], [place] [address] Aug, [facility] [address] [id number] [address] [place] [address], [place] [address] Aug, [facility] [address] [id number] [address] [place] [address], [place] [address] Aug, [facility] [address] [id number] [address] [place] [address], [place] [address] Aug, [facility] [address] [id number] [address] [place] [address], [place] [address] Aug, [facility] [address] [id number] [address] [place] [address], [place] [address] Jul, [facility] [address] [id number] [address] [place] [address], [place] [address] Jul, [facility] [address] [id number] [address] [place] [address], [place] [address] Jul, [facility] [address] [id number] [address] [place] [address], [place] [address] Jul, [facility] [address] [id number] [address] [place] [address], [place] [address] Jul, [facility] [address] [id number] [address] [place] [address], [place] [address] Jul, [facility] [address] [id number] [address] [place] [address], [place] [address] 17 Jul, 2011 [facility] [address] [id number] [address] [place] [address], [place] [address] Jul, [facility] [address] [id number] [address] [place] [address], [place] [address] Jul, [facility] [address] [id number] [address] [place] [address], [place] [address] Jul, [facility] [address] [id number] [address] [place] [address], [place] [address] Jun, [facility] [address] [id number] [address] [place] [address], [place] [address] Jun, [facility] [address] [id number] [address] [place] [address], [place] [address] Jun, [facility] [address] [id number] [address] [place] [address], [place] [address] Jun, [facility] [address] [id number] [address] [place] [address], [place] [address] May, [facility] [address] [id number] [address] [place] [address], [place] [address] May, [facility] [address] [id number] [address] [place] [address], [place] [address] May, [facility] [address] [id number] [address] [place] [address], [place] [address] May, [facility] [address] [id number] [address] [place] [address], [place] [address] Apr, [facility] [address] [id number] [address] [place] [address], [place] [address] Apr, [facility] [address] [id number] [address] [place] [address], [place] [address] November, [facility] [address] [id number] [address] [place] [address], [place] [address] 18 Oct, 2010 [facility] [address] [id number] [address] [place] [address], [place] [address] 17 Aug, 2010 [facility] [address] [id number] [address] [place] [address], [place] [address] 28 Jun, 2010 [facility] [address] [id number] [address] [place] [address], [place] [address] 28 Jun, 2010 [facility] [address] [id number] [address] [place] [address], [place] [address] 27 Jun, 2010 [facility] [address] [id number] [address] [place] [address], [place] [address] 03 Jun, 2010 [facility] [address] [id number] [address] [place] [address], [place] [address] 29 May, 2010 [facility] [address] [id number] [address] [place] [address], [place] [address] Apr, [facility] [address] [id number] [address] [place] [address], [place] [address] 13 Oct, 2009 [facility] [address] [id number] [address] [place] [address], [place] [address] 13 Aug, 2009 [facility] [address] [id number] [address] [place] [address], [place] [address] Jul, [facility] [address] [id number] [address] [place] [address], [place] [address] 22 Jun, 2009 [facility] [address] [id number] [address] [place] [address], [place] [address] 16 Jun, 2009 [facility] [address] [id number] [address] [place] [address], [place] [address] 14 Jun, 2009 [facility] [address] [id number] [address] [place] [address], [place] [address] 14 Jun, 2009 [facility] [address] [id number] [address] [place] [address], [place] [address] 09 May, 2009 [facility] [address] [id number] [address] [place] [address], [place] [address] Apr, [facility] [address] [facility] [id number] [address] [place] [address] 15 Mar, 2009 [facility] [address] [facility] [id number] [address] [place] [address] 14 Mar, 2009 [facility] [address] [facility] [id number] [address] [place] [address] 11 Dec, 2008 IMMUNIZATIONS No Known Immunizations SOCIAL HISTORY Never Assessed REASON FOR VISIT Tramadol Update PLAN OF CARE VITAL SIGNS MEDICATIONS Unknown [...]
--- OUTSIDE RECORDS SUMMARY | 2019-09-01 05:32 | XMS REPORT ---
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 [address], [place] [address] 08 Apr, 2014 [facility] [address] [id number] [address] [place] [address], [place] [address] Apr, [facility] [address] [id number] [address] [place] [address], [place] [address] Apr, [facility] [address] [id number] [address] [place] [address], [place] [address] 29 Mar, 2013 [facility] [address] [id number] [address] [place] [address], [place] [address] 29 Mar, 2013 [facility] [address] [id number] [address] [place] [address], [place] [address] 29 Mar, 2013 [facility] [address] [id number] [address] [place] [address], [place] [address] 29 Mar, 2013 [facility] [address] [id number] [address] [place] [address], [place] [address] Mar, 2013 [facility] [address] [id number] [address] [place] [address], [place] [address] Mar, 2013 [facility] [address] [id number] [address] [place] [address], [place] [address] 04 Mar, 2013 [facility] [address] [id number] [address] [place] [address], [place] [address] 04 Mar, 2013 [facility] [address] [id number] [address] [place] [address], [place] [address] Mar, 2013 [facility] [address] [id number] [address] [place] [address], [place] [address] Mar, 2013 [facility] [address] [id number] [address] [place] [address], [place] [address] Mar, 2013 [facility] [address] [id number] [address] [place] [address], [place] [address] Mar, 2013 [facility] [address] [id number] [address] [place] [address], [place] [address] Feb, [facility] [address] [id number] [facility] [place] [address] Feb, [facility] [address] [id number] [facility] [place] [address] Jan, [facility] [address] [id number] [facility] [place] [address] Jan, [facility] [address] [id number] [address] [place] [address], [place] [address] Jan, [facility] [address] [id number] [address] [place] [address], [place] [address] Jan, [facility] [address] [id number] [address] [place] [address], [place] [address] Dec, [facility] [address] [id number] [address] [place] [address], [place] [address] Dec, [facility] [address] [id number] [address] [place] [address], [place] [address] Dec, [facility] [address] [id number] [address] [place] [address], [place] [address] Dec, [facility] [address] [id number] [address] [place] [address], [place] [address] Dec, [facility] [address] [id number] [address] [place] [address], [place] [address] Dec, [facility] [address] [id number] [address] [place] [address], [place] [address] November, [facility] [address] [id number] [address] [place] [address], [place] [address] November, [facility] [address] [id number] [address] [place] [address], [place] [address] November, [facility] [address] [id number] [address] [place] [address], [place] [address] November, [facility] [address] [id number] [address] [place] [address], [place] [address] November, [facility] [address] [id number] [address] [place] [address], [place] [address] November, [facility] [address] [place] [id number] November, [facility] [address] [id number] [address] [place] [address], [place] [address] November, [facility] [address] [id number] [address] [place] [address], [place] [address] November, [facility] [address] [id number] [address] [place] [address], [place] [address] November, [facility] [address] [id number] [address] [place] [address], [place] [address] November, [facility] [address] [id number] [address] [place] [address], [place] [address] November, [facility] [address] [id number] [address] [place] [address], [place] [address] Oct, [facility] [address] [id number] [address] [place] [address], [place] [address] Oct, [facility] [address] [id number] [address] [place] [address], [place] [address] Oct, [facility] [address] [id number] [address] [place] [address], [place] [address] Oct, [facility] [address] [id number] [address] [place] [address], [place] [address] Oct, [facility] [address] [id number] [address] [place] [address], [place] [address] Oct, [facility] [address] [id number] [address] [place] [address], [place] [address] Oct, [facility] [address] [id number] [address] [place] [address], [place] [address] Oct, [facility] [address] [id number] [address] [place] [address], [place] [address] Oct, [facility] [address] [id number] [facility] [place] [address] Oct, [facility] [address] [id number] [address] [place] [address], [place] [address] Oct, [facility] [address] [id number] [address] [place] [address], [place] [address] Oct, [facility] [address] [id number] [address] [place] [address], [place] [address] Oct, [facility] [address] [id number] [address] [place] [address], [place] [address] Oct, [facility] [address] [id number] [address] [place] [address], [place] [address] Oct, [facility] [address] [id number] [address] [place] [address], [place] [address] Sep, [facility] [address] [id number] [address] [place] [address], [place] [address] Sep, [facility] [address] [id number] [address] [place] [address], [place] [address] Sep, [facility] [address] [id number] [address] [place] [address], [place] [address] Sep, [facility] [address] [id number] [address] [place] [address], [place] [address] Aug, [facility] [address] [id number] [address] [place] [address], [place] [address] Aug, [facility] [address] [id number] [address] [place] [address], [place] [address] Aug, [facility] [address] [id number] [address] [place] [address], [place] [address] Aug, [facility] [address] [id number] [address] [place] [address], [place] [address] Jul, [facility] [address] [id number] [address] [place] [address], [place] [address] Jul, [facility] [address] [id number] [address] [place] [address], [place] [address] Jul, [facility] [address] [id number] [address] [place] [address], [place] [address] Jul, [facility] [address] [id number] [address] [place] [address], [place] [address] Jul, [facility] [address] [id number] [address] [place] [address], [place] [address] Jul, [facility] [address] [id number] [address] [place] [address], [place] [address] Jul, [facility] [address] [id number] [address] [place] [address], [place] [address] Jul, [facility] [address] [id number] [address] [place] [address], [place] [address] Jul, [facility] [address] [id number] [address] [place] [address], [place] [address] Jul, [facility] [address] [id number] [address] [place] [address], [place] [address] Jul, [facility] [address] [id number] [address] [place] [address], [place] [address] Jul, [facility] [address] [id number] [address] [place] [address], [place] [address] Jul, [facility] [address] [id number] [address] [place] [address], [place] [address] Jul, [facility] [address] [id number] [address] [place] [address], [place] [address] Jun, [facility] [address] [id number] [address] [place] [address], [place] [address] Jun, [facility] [address] [id number] [address] [place] [address], [place] [address] Jun, [facility] [address] [id number] [address] [place] [address], [place] [address] Jun, [facility] [address] [id number] [address] [place] [address], [place] [address] May, [facility] [address] [id number] [address] [place] [address], [place] [address] May, [facility] [address] [id number] [address] [place] [address], [place] [address] May, [facility] [address] [id number] [address] [place] [address], [place] [address] May, [facility] [address] [id number] [address] [place] [address], [place] [address] May, [facility] [address] [id number] [address] [place] [address], [place] [address] May, [facility] [address] [id number] [address] [place] [address], [place] [address] May, [facility] [address] [id number] [address] [place] [address], [place] [address] May, [facility] [address] [id number] [address] [place] [id number] Apr, [facility] [address] [id number] [address] [place] [address], [place] [address] Apr, [facility] [address] [id number] [address] [place] [id number] Apr, [facility] [address] [id number] [address] [place] [address], [place] [address] Apr, [facility] [address] [id number] [address] [place] [address], [place] [address] Apr, [facility] [address] [id number] [address] [place] [address], [place] [address] Apr, [facility] [address] [id number] [address] [place] [address] [place] [address] 30 Mar, 2012 [facility] [address] [id number] [address] [place] [address], [place] [address] 26 Mar, 2012 [facility] [address] [id number] [address] [place] [address], [place] [address] 20 Mar, 2013 [facility] [address] [id number] [address] [place] [address], [place] [address] 17 Mar, 2012 [facility] [address] [id number] [address] [place] [address], [place] [address] 16 Mar, 2013 [facility] [address] [id number] [address] [place] [address], [place] [address] 05 Mar, 2013 [facility] [address] [id number] [address] [place] [address], [place] [address] Feb, [facility] [address] [id number] [address] [place] [address], [place] [address] Feb, [facility] [address] [id number] [address] [place] [address], [place] [address] Feb, [facility] [address] [id number] [address] [place] [address], [place] [address] Feb, [facility] [address] [id number] [address] [place] [address], [place] [address] Jan, [facility] [address] [id number] [address] [place] [address], [place] [address] Jan, [facility] [address] [id number] [address] [place] [address], [place] [address] Jan, [facility] [address] [id number] [address] [place] [address], [place] [address] Jan, [facility] [address] [id number] [address] [place] [address], [place] [address] Jan, [facility] [address] [id number] [address] [place] [address], [place] [address] Dec, [facility] [address] [id number] [address] [place] [address], [place] [address] Dec, [facility] [address] [id number] [address] [place] [address], [place] [address] Dec, [facility] [address] [id number] [address] [place] [address], [place] [address] November, [facility] [address] [id number] [address] [place] [address], [place] [address] November, [facility] [address] [id number] [address] [place] [address], [place] [address] November, [facility] [address] [id number] [address] [place] [address], [place] [address] Oct, [facility] [address] [id number] [address] [place] [address], [place] [address] Oct, [facility] [address] [id number] [address] [place] [address], [place] [address] Oct, [facility] [address] [id number] [address] [place] [address], [place] [address] Oct, [facility] [address] [id number] [address] [place] [address], [place] [address] 18 Oct, 2012 [facility] [address] [id number] [address] [place] [address], [place] [address] 17 Oct, 2012 [facility] [address] [id number] [address] [place] [address], [place] [address] 15 Oct, [address] [facility] [address] [id number] [address] [place] [address], [place] [address] 26 Sep, 2012 [facility] [address] [id number] [address] [place] [address], [place] [address] Sep, [facility] [address] [id number] [address] [place] [address], [place] [address] 06 Sep, 2012 [facility] [address] [id number] [address] [place] [address], [place] [address] Sep, [facility] [address] [id number] [address] [place] [address], [place] [address] Aug, [facility] [address] [id number] [address] [place] [address], [place] [address] Aug, [facility] [address] [id number] [address] [place] [address], [place] [address] Aug, [facility] [address] [id number] [address] [place] [address], [place] [address] Aug, [facility] [address] [id number] [address] [place] [address], [place] [address] Aug, [facility] [address] [id number] [address] [place] [address], [place] [address] Aug, [facility] [address] [id number] [address] [place] [address], [place] [address] Jul, [facility] [address] [id number] [address] [place] [address], [place] [address] Jul, [facility] [address] [id number] [address] [place] [address], [place] [address] Jul, [facility] [address] [id number] [address] [place] [address], [place] [address] Jul, [facility] [address] [id number] [address] [place] [address], [place] [address] Jul, [facility] [address] [id number] [address] [place] [address], [place] [address] Jul, [facility] [address] [id number] [address] [place] [address], [place] [address] Jun, [facility] [address] [id number] [address] [place] [address], [place] [address] Jun, [facility] [address] [id number] [address] [place] [address], [place] [address] Jun, [facility] [address] [id number] [address] [place] [address], [place] [address] Jun, [facility] [address] [id number] [address] [place] [address], [place] [address] Jun, [facility] [address] [id number] [address] [place] [address], [place] [address] Jun, [facility] [address] [id number] [address] [place] [address], [place] [address] May, [facility] [address] [id number] [address] [place] [address], [place] [address] May, [facility] [address] [id number] [address] [place] [address], [place] [address] May, [facility] [address] [id number] [address] [place] [address], [place] [address] May, [facility] [address] [id number] [address] [place] [address], [place] [address] May, [facility] [address] [id number] [address] [place] [address], [place] [address] May, [facility] [address] [id number] [address] [place] [address], [place] [address] May, [facility] [address] [id number] [address] [place] [address], [place] [address] May, [facility] [address] [id number] [address] [place] [address], [place] [address] May, [facility] [address] [id number] [address] [place] [address], [place] [address] May, [facility] [address] [id number] [address] [place] [address], [place] [address] Apr, [facility] [address] [id number] [address] [place] [address], [place] [address] Apr, [facility] [address] [id number] [address] [place] [address], [place] [address] 23 Apr, 2012 [facility] [address] [id number] [address] [place] [address], [place] [address] 23 Apr, 2012 [facility] [address] [id number] [address] [place] [address], [place] [address] 16 Apr, 2012 [facility] [address] [id number] [address] [place] [address], [place] [address] 16 Apr, 2012 [facility] [address] [id number] [address] [place] [address], [place] [address] 15 Apr, 2012 [facility] [address] [id number] [address] [place] [address], [place] [address] 15 Apr, 2012 [facility] [address] [id number] [address] [place] [address], [place] [address] 05 Apr, 2012 [facility] [address] [id number] [address] [place] [address], [place] [address] 28 Mar, 2012 [facility] [address] [id number] [address] [place] [address], [place] [address] 26 Mar, 2012 [facility] [address] [id number] [address] [place] [address], [place] [address] 25 Mar, 2012 [facility] [address] [id number] [address] [place] [address], [place] [address] 19 Mar, 2012 [facility] [address] [id number] [address] [place] [address], [place] [address] 18 Mar, 2012 [facility] [address] [id number] [address] [place] [id number] 05 Mar, 2012 [facility] [address] [id number] [address] [place] [address], [place] [address] Feb, [facility] [address] [id number] [address] [place] [address], [place] [address] Feb, [facility] [address] [id number] [address] [place] [address], [place] [address] Feb, [facility] [address] [id number] [address] [place] [address], [place] [address] Jan, [facility] [address] [id number] [address] [place] [address], [place] [address] Jan, [facility] [address] [id number] [address] [place] [address], [place] [address] Jan, [facility] [address] [id number] [address] [place] [address], [place] [address] Jan, [facility] [address] [id number] [address] [place] [address], [place] [address] Dec, [facility] [address] [id number] [address] [place] [address], [place] [address] November, [facility] [address] [id number] [address] [place] [address], [place] [address] November, [facility] [address] [id number] [address] [place] [address], [place] [address] November, [facility] [address] [id number] [address] [place] [address], [place] [address] November, [facility] [address] [id number] [address] [place] [address], [place] [address] November, [facility] [address] [id number] [address] [place] [address], [place] [address] November, [facility] [address] [id number] [address] [place] [address], [place] [address] Oct, [facility] [address] [id number] [address] [place] [address], [place] [address] Oct, [facility] [address] [id number] [address] [place] [address], [place] [address] Sep, [facility] [address] [id number] [address] [place] [address], [place] [address] Sep, [facility] [address] [id number] [address] [place] [address], [place] [address] Sep, [facility] [address] [id number] [address] [place] [address], [place] [address] Aug, [facility] [address] [id number] [address] [place] [address], [place] [address] Aug, [facility] [address] [id number] [address] [place] [address], [place] [address] Aug, [facility] [address] [id number] [address] [place] [address], [place] [address] Aug, [facility] [address] [id number] [address] [place] [address], [place] [address] Aug, [facility] [address] [id number] [address] [place] [address], [place] [address] Aug, [facility] [address] [id number] [address] [place] [address], [place] [address] Jul, [facility] [address] [id number] [address] [place] [address], [place] [address] Jul, [facility] [address] [id number] [address] [place] [address], [place] [address] Jul, [facility] [address] [id number] [address] [place] [address], [place] [address] Jul, [facility] [address] [id number] [address] [place] [address], [place] [address] Jul, [facility] [address] [id number] [address] [place] [address], [place] [address] Jul, [facility] [address] [id number] [address] [place] [address], [place] [address] 17 Jul, 2011 [facility] [address] [id number] [address] [place] [address], [place] [address] Jul, [facility] [address] [id number] [address] [place] [address], [place] [address] Jul, [facility] [address] [id number] [address] [place] [address], [place] [address] Jul, [facility] [address] [id number] [address] [place] [address], [place] [address] Jun, [facility] [address] [id number] [address] [place] [address], [place] [address] Jun, [facility] [address] [id number] [address] [place] [address], [place] [address] Jun, [facility] [address] [id number] [address] [place] [address], [place] [address] Jun, [facility] [address] [id number] [address] [place] [address], [place] [address] May, [facility] [address] [id number] [address] [place] [address], [place] [address] May, [facility] [address] [id number] [address] [place] [address], [place] [address] May, [facility] [address] [id number] [address] [place] [address], [place] [address] May, [facility] [address] [id number] [address] [place] [address], [place] [address] Apr, [facility] [address] [id number] [address] [place] [address], [place] [address] Apr, [facility] [address] [id number] [address] [place] [address], [place] [address] November, [facility] [address] [id number] [address] [place] [address], [place] [address] Oct, [facility] [address] [id number] [address] [place] [address], [place] [address] Aug, [facility] [address] [id number] [address] [place] [address], [place] [address] Jun, [facility] [address] [id number] [address] [place] [address], [place] [address] Jun, [facility] [address] [id number] [address] [place] [address], [place] [address] 27 Jun, 2010 [facility] [address] [id number] [address] [place] [address], [place] [address] 03 Jun, 2010 [facility] [address] [id number] [address] [place] [address], [place] [address] 29 May, 2010 [facility] [address] [id number] [address] [place] [address], [place] [address] 27 Apr, 2010 [facility] [address] [id number] [address] [place] [address], [place] [address] 13 Oct, 2009 [facility] [address] [id number] [address] [place] [address], [place] [address] 13 Aug, 2009 [facility] [address] [id number] [address] [place] [address], [place] [address] 20 Jul, 2009 [facility] [address] [id number] [address] [place] [address], [place] [address] 22 Jun, 2009 [facility] [address] [id number] [address] [place] [address], [place] [address] 16 Jun, 2009 [facility] [address] [id number] [address] [place] [address], [place] [address] 14 Jun, 2009 [facility] [address] [id number] [address] [place] [address], [place] [address] 14 Jun, 2009 [facility] [address] [id number] [address] [place] [address], [place] [address] 09 May, 2009 [facility] [address] [id number] [address] [place] [address], [place] [address] 20 Apr, 2009 [facility] [address] [id number] [address] [place] [address], [place] [address] 15 Mar, 2009 [facility] [address] [id number] [address] [place] [address], [place] [address] 14 Mar, 2009 [facility] [address] [id number] [address] [place] [address], [place] [address] Dec, IMMUNIZATIONS No Known Immunizations SOCIAL HISTORY Never Assessed REASON FOR VISIT F/U, needs cymbalta refilled--Evonne Lugo MA PLAN OF CARE Activity Details Follow Up 2 Months Reason: VITAL SIGNS Height 66.0 in 2017-03-31 Weight 204.1 lbs 2017-03-31 Heart Rate 80 bpm 2017-03-31 Respiratory Rate 20 2017-03-31 BMI 32.94 kg/m2 2017-03-31 Blood pressure systolic 116 mmHg 2017-03-31 Blood pressure diastolic 80 mmHg 2017-03-31 MEDICATIONS Medication Instructions Dosage Frequency Start Date End Date Duration S tatus Albuterol Sulfate (2.5 MG/3ML) 0.083% Inhalation 4 times a day as N eeded 3 ml Active Triamcinolone Acetonide 0.5 % Externally Twice a day 1 appli cation to affected area 12h Jul, 10 days Active Duloxetine HCl 60 MG Orally Once a day TAKE ONE CAPSULE BY MOUTH ON CE DAILY 24h 30 days Active Symbicort 160-4.5 MCG/ACT INHALE TWO PUFFS BY MOUTH TWICE DAILY 30 Active Abilify 5 mg Orally Once a day 1 tablet 24h Active Metformin HCl 500 mg Orally Once a day 1 tablet with meal 24h Active Hydrocodone-Acetaminophen 7.5-325 MG Orally Once a day at be dtime 1 tablet as needed Feb, Active Meloxicam 15 MG Orally Once a day 1 tablet as needed 24h 90 days Active Pantoprazole Sodium 40 MG TAKE ONE TABLET BY MOUTH DAILY 90 Active Nicoderm CQ 21 MG/24HR Transdermal Once a day 1 patch to skin 24h Jun, 30 days Active Lancets 2 times per day Mar, Act ariella Ventolin HFA 108 (90 Base) MCG/ACT Inhalation every 4 hrs 2 puffs a s needed 4h Active Misc. Devices N/A Nebulizer machine May, Active Neurontin 100 MG Orally Once a day at bedtime 1 capsule Oct, Active Lisinopril-Hydrochlorothiazide 20-25 MG Orally Once a day 1 tablet 24h Jul, 90 days Active Clonazepam 0.5 MG Orally daily. MAX 60/month take 1-2 tabs daily up to twice a day prn anxiety Active Tramadol HCl 50 mg Orally 3 times a day 1 tablet 8h Jun, 28 days Active RESULTS No Results PROCEDURES Procedure Date Ordered Result Body Site [facility] VISIT ESTABLISHED PATIENT Mar 31, 2017 INSTRUCTIONS MEDICATIONS ADMINISTERED No Known Medications [...]
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
--- OUTSIDE RECORDS SUMMARY | 2019-09-01 05:32 | XMS REPORT ---
Author Author Olivia BARILLAS Organization [employer] Address Unknown Phone Unavailable Care Team Providers Care Demonstrator Sewing Techniques Name Role Phone TYRELL BARILLAS CP Unavailable [...]
--- OUTSIDE RECORDS SUMMARY | 2019-09-01 05:32 | XMS REPORT ---
Author Olivia Eason Organization [employer] Address Unknown Phone Unavailable Care Team Providers Care Yard Loader Operator Name Role Phone TYRELL BARILLAS CP [...]
--- OUTSIDE RECORDS SUMMARY | 2019-09-01 05:32 | XMS REPORT ---
Author Olivia Eason Organization [employer] Address Unknown Phone Unavailable Care Team Providers Care Newspaper Subscription Solicitor Name Role Phone TYRELL BARILLAS CP Unavailable [...] Date End Date Status Dosage Nicoderm CQ [facility] [address]-82 14 MG/24HR Transdermal Once a day Jun 14, 2015 1 patch to skin Results No Known Results Summary Purpose [employer] Submission
--- OUTSIDE RECORDS SUMMARY | 2019-09-01 05:33 | XMS REPORT ---
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 [address] [place] [address], [place] [address] Apr, [facility] [address] [id number] [address] [place] [address], [place] [address] Apr, [facility] [address] [id number] [address] [place] [address], [place] [address] 08 Apr, 2013 [facility] [address] [id number] [address] [place] [address], [place] [address] Apr, [facility] [address] [id number] [address] [place] [address], [place] [address] Apr, [facility] [address] [id number] [address] [place] [address], [place] [address] Apr, 2013 [facility] [address] [id number] [address] [place] [address], [place] [address] 29 Mar, 2013 [facility] [address] [id number] [address] [place] [address], [place] [address] 29 Mar, 2013 [facility] [address] [id number] [address] [place] [address], [place] [address] 29 Mar, 2013 [facility] [address] [id number] [address] [place] [address], [place] [address] 29 Mar, 2013 [facility] [address] [id number] [address] [place] [address], [place] [address] 10 Mar, 2013 [facility] [address] [id number] [address] [place] [address], [place] [address] 10 Mar, 2013 [facility] [address] [id number] [address] [place] [address], [place] [address] Mar, 2013 [facility] [address] [id number] [address] [place] [address], [place] [address] 04 Sep, 2013 [facility] [address] [id number] [address] [place] [address], [place] [address] Sep, 2013 [facility] [address] [id number] [address] [place] [address], [place] [address] Sep, 2013 [facility] [address] [id number] [address] [place] [address], [place] [address] Mar, 2013 [facility] [address] [id number] [address] [place] [address], [place] [address] Mar, [facility] [address] [id number] [address] [place] [address], [place] [address] Feb, [facility] [address] [id number] [address] [place] [address], [place] [address] Feb, [facility] [address] [id number] [address] [place] [address], [place] [address] Jan, [facility] [address] [id number] [address] [place] [address], [place] [address] Jan, [facility] [address] [id number] [address] [place] [address], [place] [address] Jan, [facility] [address] [id number] [address] [place] [address], [place] [address] Jan, [facility] [address] [id number] [address] [place] [address], [place] [address] Dec, [facility] [address] [id number] [address] [place] [address], [place] [address] Dec, [facility] [address] [id number] [address] [place] [address], [place] [address] Dec, [facility] [address] [id number] [address] [place] [address], [place] [address] Dec, [facility] [address] [id number] [address] [place] [address], [place] [address] Dec, [facility] [address] [id number] [address] [place] [address], [place] [address] Dec, [facility] [address] [id number] [address] [place] [address], [place] [address] November, [facility] [address] [id number] [address] [place] [address], [place] [address] November, [facility] [address] [id number] [address] [place] [address], [place] [address] November, [facility] [address] [id number] [address] [place] [address], [place] [address] November, [facility] [address] [id number] [address] [place] [address], [place] [address] November, [facility] [address] [id number] [address] [place] [address], [place] [address] November, [facility] [address] [place] [id number] November, [facility] [address] [id number] [address] [place] [address], [place] [address] November, [facility] [address] [id number] [address] [place] [address], [place] [address] November, [facility] [address] [id number] [address] [place] [address], [place] [address] November, [facility] [address] [id number] [address] [place] [address], [place] [address] November, [facility] [address] [id number] [address] [place] [address], [place] [address] November, [facility] [address] [id number] [address] [place] [address], [place] [address] Oct, [facility] [address] [id number] [address] [place] [address], [place] [address] Oct, [facility] [address] [id number] [address] [place] [address], [place] [address] Oct, [facility] [address] [id number] [address] [place] [address], [place] [address] Oct, [facility] [address] [id number] [address] [place] [address], [place] [address] Oct, [facility] [address] [id number] [address] [place] [address], [place] [address] Oct, [facility] [address] [id number] [address] [place] [address], [place] [address] Oct, [facility] [address] [id number] [address] [place] [address], [place] [address] Oct, [facility] [address] [id number] [facility] [place] [address] Oct, [facility] [address] [id number] [facility] [place] [address] Oct, [facility] [address] [id number] [facility] [place] [address] Oct, [facility] [address] [id number] [address] [place] [address], [place] [address] Oct, [facility] [address] [id number] [address] [place] [address], [place] [address] Oct, [facility] [address] [id number] [address] [place] [address], [place] [address] Oct, [facility] [address] [id number] [address] [place] [address], [place] [address] Oct, [facility] [address] [id number] [address] [place] [address], [place] [address] Sep, [facility] [address] [id number] [address] [place] [address], [place] [address] Sep, [facility] [address] [id number] [address] [place] [address], [place] [address] Sep, [facility] [address] [id number] [address] [place] [address], [place] [address] Sep, [facility] [address] [id number] [address] [place] [address], [place] [address] Aug, [facility] [address] [id number] [address] [place] [address], [place] [address] Aug, [facility] [address] [id number] [address] [place] [address], [place] [address] Aug, [facility] [address] [id number] [address] [place] [address], [place] [address] Aug, [facility] [address] [id number] [address] [place] [address], [place] [address] Jul, [facility] [address] [id number] [address] [place] [address], [place] [address] Jul, [facility] [address] [id number] [address] [place] [address], [place] [address] Jul, [facility] [address] [id number] [address] [place] [address], [place] [address] Jul, [facility] [address] [id number] [address] [place] [address], [place] [address] Jul, [facility] [address] [id number] [address] [place] [address], [place] [address] Jul, [facility] [address] [id number] [address] [place] [address], [place] [address] Jul, [facility] [address] [id number] [address] [place] [address], [place] [address] Jul, [facility] [address] [id number] [address] [place] [address], [place] [address] Jul, [facility] [address] [id number] [address] [place] [address], [place] [address] Jul, [facility] [address] [id number] [address] [place] [address], [place] [address] Jul, [facility] [address] [id number] [address] [place] [address], [place] [address] Jul, [facility] [address] [id number] [address] [place] [address], [place] [address] Jul, [facility] [address] [id number] [address] [place] [address], [place] [address] Jul, [facility] [address] [id number] [address] [place] [address], [place] [address] Jun, [facility] [address] [id number] [address] [place] [address] Jun, [facility] [address] [id number] [address] [place] [address], [place] [address] Jun, [facility] [address] [id number] [address] [place] [address] Jun, [facility] [address] [id number] [address] [place] [address], [place] [address] May, [facility] [address] [id number] [address] [place] [address] May, [facility] [address] [id number] [address] [place] [address], [place] [address] May, [facility] [address] [id number] [address] [place] [phone] May, [facility] [address] [id number] [address] [place] [phone] May, [facility] [address] [id number] [address] [place] [address], [place] [address] May, [facility] [address] [id number] [address] [place] [phone] May, [facility] [address] [id number] [address] [place] [phone] May, [facility] [address] [id number] [address] [place] [phone] Apr, [facility] [address] [id number] [address] [place] [phone] Apr, [facility] [address] [id number] [address] [place] [phone] Apr, [facility] [address] [id number] [address] [place] [phone] Apr, [facility] [address] [id number] [address] [place] [phone] Apr, [facility] [address] [id number] [address] [place] [address], [place] [address] Apr, [facility] [address] [id number] [address] [place] [address], [place] [address] 30 Mar, 2013 [facility] [address] [id number] [address] [place] [address], [place] [address] 26 Mar, 2013 [facility] [address] [id number] [address] [place] [address], [place] [address] 20 Mar, 2012 [facility] [address] [id number] [address] [place] [address], [place] [address] 17 Mar, 2013 [facility] [address] [id number] [address] [place] [address], [place] [address] 16 Mar, 2013 [facility] [address] [id number] [address] [place] [address], [place] [address] 05 Mar, 2013 [facility] [address] [id number] [address] [place] [address], [place] [address] Feb, [facility] [address] [id number] [address] [place] [address], [place] [address] Feb, [facility] [address] [id number] [address] [place] [address], [place] [address] Feb, [facility] [address] [id number] [address] [place] [address], [place] [address] Feb, [facility] [address] [id number] [address] [place] [address], [place] [address] Jan, [facility] [address] [id number] [address] [place] [address], [place] [address] Jan, [facility] [address] [id number] [address] [place] [address], [place] [address] Jan, [facility] [address] [id number] [address] [place] [address], [place] [address] Jan, [facility] [address] [id number] [address] [place] [address], [place] [address] Jan, [facility] [address] [id number] [address] [place] [address], [place] [address] Dec, [facility] [address] [id number] [address] [place] [address], [place] [address] Dec, [facility] [address] [id number] [address] [place] [address], [place] [address] Dec, [facility] [address] [id number] [address] [place] [address], [place] [address] November, [facility] [address] [id number] [address] [place] [address], [place] [address] November, [facility] [address] [id number] [address] [place] [address], [place] [address] November, [facility] [address] [id number] [address] [place] [address], [place] [address] Oct, [facility] [address] [id number] [address] [place] [address], [place] [address] Oct, [facility] [address] [id number] [address] [place] [address], [place] [address] Oct, [facility] [address] [id number] [address] [place] [address], [place] [address] Oct, [facility] [address] [id number] [address] [place] [address], [place] [address] 18 Oct, 2012 [facility] [address] [id number] [address] [place] [address], [place] [address] 17 Oct, 2012 [facility] [address] [id number] [address] [place] [address], [place] [address] 15 Oct, 2012 [facility] [address] [id number] [address] [place] [address], [place] [address] 26 Sep, 2012 [facility] [address] [id number] [address] [place] [address], [place] [address] Sep, [facility] [address] [id number] [address] [place] [address], [place] [address] Sep, [facility] [address] [id number] [address] [place] [address], [place] [address] Sep, [facility] [address] [id number] [address] [place] [address], [place] [address] Aug, [facility] [address] [id number] [address] [place] [address], [place] [address] Aug, [facility] [address] [id number] [address] [place] [address], [place] [address] Aug, [facility] [address] [id number] [address] [place] [address], [place] [address] Aug, [facility] [address] [id number] [address] [place] [address], [place] [address] Aug, [facility] [address] [id number] [address] [place] [address], [place] [address] Aug, [facility] [address] [id number] [address] [place] [address], [place] [address] Jul, [facility] [address] [id number] [address] [place] [address], [place] [address] Jul, [facility] [address] [id number] [address] [place] [address], [place] [address] Jul, [facility] [address] [id number] [address] [place] [address], [place] [address] Jul, [facility] [address] [id number] [address] [place] [address], [place] [address] Jul, [facility] [address] [id number] [address] [place] [address], [place] [address] Jul, [facility] [address] [id number] [address] [place] [address], [place] [address] Jun, [facility] [address] [id number] [address] [place] [address], [place] [address] Jun, [facility] [address] [id number] [address] [place] [address], [place] [address] Jun, [facility] [address] [id number] [address] [place] [address], [place] [address] Jun, [facility] [address] [id number] [address] [place] [address], [place] [address] Jun, [facility] [address] [id number] [address] [place] [address], [place] [address] Jun, [facility] [address] [id number] [address] [place] [address], [place] [address] May, [facility] [address] [id number] [address] [place] [address], [place] [address] May, [facility] [address] [id number] [address] [place] [address], [place] [address] May, [facility] [address] [id number] [address] [place] [address], [place] [address] May, [facility] [address] [id number] [address] [place] [address], [place] [address] May, [facility] [address] [id number] [address] [place] [address], [place] [address] May, [facility] [address] [id number] [address] [place] [address], [place] [address] May, [facility] [address] [id number] [address] [place] [address], [place] [address] May, [facility] [address] [id number] [address] [place] [address], [place] [address] May, [facility] [address] [id number] [address] [place] [address], [place] [address] May, [facility] [address] [id number] [address] [place] [address], [place] [address] Apr, [facility] [address] [id number] [address] [place] [address] 31 Apr, 2012 [facility] [address] [id number] [address] [place] [address], [place] [address] 23 Apr, 2012 [facility] [address] [id number] [address] [place] [address], [place] [address] 23 Apr, 2012 [facility] [address] [id number] [address] [place] [address], [place] [address] 16 Apr, 2012 [facility] [address] [id number] [address] [place] [address], [place] [address] 16 Apr, 2012 [facility] [address] [id number] [address] [place] [address], [place] [address] 15 Apr, 2012 [facility] [address] [id number] [address] [place] [address], [place] [address] 15 Apr, 2012 [facility] [address] [id number] [address] [place] [address], [place] [address] 05 Apr, 2012 [facility] [address] [id number] [address] [place] [address], [place] [address] 28 Mar, 2012 [facility] [address] [id number] [address] [place] [address], [place] [address] 26 Mar, 2012 [facility] [address] [id number] [address] [place] [address], [place] [address] 25 Mar, 2012 [facility] [address] [id number] [address] [place] [address], [place] [address] 19 Sep2011 [facility] [address] [id number] [address] [place] [address] 18 Sep2011 [facility] [address] [id number] [address] [place] [address], [place] [address] 05 Mar, 2012 [facility] [address] [id number] [address] [place] [address], [place] [address] 28 Feb, 2012 [facility] [address] [id number] [address] [place] [address], [place] [address] 27 Feb, 2012 [facility] [address] [id number] [address] [place] [address], [place] [address] Feb, [facility] [address] [id number] [address] [place] [address], [place] [address] Jan, [facility] [address] [id number] [address] [place] [address], [place] [address] Jan, [facility] [address] [id number] [address] [place] [address], [place] [address] Jan, [facility] [address] [id number] [address] [place] [address], [place] [address] Jan, [facility] [address] [id number] [address] [place] [address], [place] [address] Dec, [facility] [address] [id number] [address] [place] [address], [place] [address] November, [facility] [address] [id number] [address] [place] [address], [place] [address] November, [facility] [address] [id number] [address] [place] [address], [place] [address] November, [facility] [address] [id number] [address] [place] [address], [place] [address] November, [facility] [address] [id number] [address] [place] [address], [place] [address] November, [facility] [address] [id number] [address] [place] [address], [place] [address] November, [facility] [address] [id number] [address] [place] [address], [place] [address] Oct, [facility] [address] [id number] [address] [place] [address], [place] [address] Oct, [facility] [address] [id number] [address] [place] [address], [place] [address] Sep, [facility] [address] [id number] [address] [place] [address], [place] [address] Sep, [facility] [address] [id number] [address] [place] [address], [place] [address] Sep, [facility] [address] [id number] [address] [place] [address], [place] [address] Aug, [facility] [address] [id number] [address] [place] [address], [place] [address] Aug, [facility] [address] [id number] [address] [place] [address], [place] [address] Aug, [facility] [address] [id number] [address] [place] [address], [place] [address] Aug, [facility] [address] [id number] [address] [place] [address], [place] [address] Aug, [facility] [address] [id number] [address] [place] [address], [place] [address] Aug, [facility] [address] [id number] [address] [place] [address], [place] [address] Jul, [facility] [address] [id number] [address] [place] [address], [place] [address] Jul, [facility] [address] [id number] [address] [place] [address], [place] [address] Jul, [facility] [address] [id number] [address] [place] [address], [place] [address] Jul, [facility] [address] [id number] [address] [place] [address], [place] [address] Jul, [facility] [address] [id number] [address] [place] [address], [place] [address] Jul, [facility] [address] [id number] [address] [place] [address], [place] [address] Jul, [facility] [address] [id number] [address] [place] [address], [place] [address] Jul, [facility] [address] [id number] [address] [place] [address], [place] [address] 10 Jul, 2011 [facility] [address] [id number] [address] [place] [address], [place] [address] Jul, [facility] [address] [id number] [address] [place] [address], [place] [address] Jun, [facility] [address] [id number] [address] [place] [address], [place] [address] Jun, [facility] [address] [id number] [address] [place] [address], [place] [address] Jun, [facility] [address] [id number] [address] [place] [address], [place] [address] Jun, [facility] [address] [id number] [address] [place] [address], [place] [address] May, [facility] [address] [id number] [address] [place] [address], [place] [address] May, [facility] [address] [id number] [address] [place] [address], [place] [address] May, [facility] [address] [id number] [address] [place] [address], [place] [address] May, [facility] [address] [id number] [address] [place] [address], [place] [address] Apr, [facility] [address] [id number] [address] [place] [address], [place] [address] Apr, [facility] [address] [id number] [address] [place] [address], [place] [address] November, [facility] [address] [id number] [address] [place] [address], [place] [address] Oct, [facility] [address] [id number] [address] [place] [address], [place] [address] Aug, [facility] [address] [id number] [address] [place] [address], [place] [address] 28 Jun, 2010 [facility] [address] [id number] [address] [place] [address], [place] [address] 28 Jun, 2010 [facility] [address] [id number] [address] [place] [address], [place] [address] 27 Jun, 2010 [facility] [address] [id number] [address] [place] [address], [place] [address] 03 Jun, 2010 [facility] [address] [id number] [address] [place] [address], [place] [address] 29 May, 2010 [facility] [address] [id number] [address] [place] [address], [place] [address] 27 Apr, 2010 [facility] [address] [id number] [address] [place] [address], [place] [address] 13 Oct, 2009 [facility] [address] [id number] [address] [place] [address], [place] [address] 13 Aug, 2009 [facility] [address] [id number] [address] [place] [address], [place] [address] Jul, [facility] [address] [id number] [address] [place] [address], [place] [address] 22 Jun, 2009 [facility] [address] [id number] [address] [place] [address], [place] [address] 16 Jun, 2009 [facility] [address] [id number] [address] [place] [address], [place] [address] 14 Jun, 2009 [facility] [address] [id number] [address] [place] [address] 14 Jun, 2009 [facility] [address] [id number] [address] [place] [address], [place] [address] 09 May, 2009 [facility] [address] [id number] [address] [place] [address], [place] [address] 20 Apr, 2009 [facility] [address] [id number] [address] [place] [address], [place] [address] 15 Mar, 2009 [facility] [address] [id number] [address] [place] [address] 14 Mar, 2009 [facility] [address] [facility] [id number] [address] [place] [address] 11 Dec, 2008 IMMUNIZATIONS No Known Immunizations SOCIAL HISTORY Never Assessed REASON FOR VISIT Medication Change PLAN OF CARE VITAL SIGNS MEDICATIONS Medication Instructions Dosage Frequency Start Date End Date Duration S campbell Ranitidine HCl 150 MG Orally 2 times a day 1 capsule 12h 27 Dec, 201 7 30 days Active RESULTS No Results PROCEDURES [...]
--- OUTSIDE RECORDS SUMMARY | 2019-09-01 05:33 | XMS REPORT ---
Author Olivia Eason Organization [employer] Address Unknown Phone Unavailable Care Team Providers Care Char Filter Tank Tender Name Role Phone TYRELL BARILLAS CP Unavailable [...] Date End Date Status Dosage Metformin HCl [facility] [address]-68 500 MG Orally Twice a day 2 tablet with meals Results No Known Results Summary Purpose [employer] Submission
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
--- OUTSIDE RECORDS SUMMARY | 2019-09-01 05:34 | XMS REPORT ---
Author Olivia Eason Organization [employer] Address Unknown Phone Unavailable Care Team Providers Care Vulcanized Fiber Unit Operator Name Role Phone TYRELL BARILLAS CP [...]
--- OUTSIDE RECORDS SUMMARY | 2019-09-01 05:34 | XMS REPORT ---
Author Olivia Eason Organization [employer] Address Unknown Phone Unavailable Care Team Providers Care Emergency Department Director Name Role Phone SHOSHANA BARILLAS CP Unavailable [...] Active Problem Raynaud disease I73.00 Active Assessment Colon cancer screening Z12.11 Activ e Assessment Neuropathy G62.9 Active Assessment Encounter for immunization Z23 A ctive Assessment Type 2 diabetes mellitus with complication E11.8 Active Assessment Breast cancer screening Z12.39 Acti ve Problem Colon cancer screening Z12.11 Activ e Assessment Cervical cancer screening Z12.4 Ac tive Problem Fibromyalgia M79.7 Active Medications Medication Code System Code Instructions Start Date End Date Status Dosage Premarin [facility] 66041350861 0.625 MG/GM USE 1 GRAM BY VAGINALLY ROUTE ON EXTERNAL GENITALS ONCE DAILY FOR 14 DAYS THEN DECREASE TO THREE TIMES A WEEK THEREAFTER Metformin HCl [facility] [address]-91 500 MG Orally Twice a day 1 tablet with meals Loratadine [facility] 73659333323 10 MG take 1 ta blet by Oral route 1 time per day take at hs for allergies Duloxetine HCl [facility] 95815548685 60 MG TAKE ONE CAPSULE BY MOUTH ONCE DAILY Meloxicam [facility] 10657361381 15 MG TAKE ONE T ABLET BY MOUTH DAILY NEEDED Albuterol Sulfate [facility] [address]-15 (2.5 MG/3ML) 0 .083% Inhalation 4 times a day as Needed 3 ml Potassium Chloride ER [facility] 27872116450 20 MEQ Orally Once a day 1 tablet with food Symbicort [facility] 33036300169 160-4.5 MCG/ACT INHALE TWO PUFFS BY MOUTH TWICE DAILY Amitriptyline HCl [facility] 36007055929 25 MG Orally Once a day TAKE ONE TABLET BY MOUTH AT BEDTIME Lasix [facility] 47363912466 40 MG Orally Once a day 1 tablet Gabapentin [facility] [address]-59 300 MG Orally 2 times a day February 05 16 1 capsule Amlodipine Besylate [facility] [address]-58 5 mg Orally Once a day 1 tablet Lancets ND 0 Mar 28, 2013 2 times pe r day Misc. Devices ND 0 N/A 4 times a day as neede d Federico to sign for Shoshana May 16, 2015 Nebulizer machine tramadol ND 0 50 mg by oral route 3 times a day October 04 5 1 tablet as needed for pain Clonazepam [facility] 27427811123 0.5 MG Orally daily take 1-2 tabs daily up to twice a day prn anxiety Pantoprazole Sodium [facility] 76403378183 40 MG TAKE ONE TABLET BY MOUTH DAILY ProAir HFA [facility] 62691744956 108 (90 Base) MCG/ACT INHALE TWO PUFFS BY MOUTH EVERY 6 HOURS NEEDED FOR WHEEZING Abilify [facility] [address]-29 5 MG Orally Once a day TAKE ONE TABLET BY MOUTH DAILY Procedures Procedure Coding System Code Date SPECIMEN HANDLING CPT-4 06124 Mar 18, 2016 PCV 13 CPT-4 97387 Mar 18, 2016 GLYCATED HEMOGLOBIN TEST CPT-4 54161 Mar SINGLE IMMUNIZATION ADMIN CPT-4 03469 Mar ZOSTER (ZOSTAVAX) CPT-4 15701 Mar 18, 2016 Office Visit, Est Pt., Level 4 CPT-4 24067 S ept 2015 IMMUNIZATION ADMIN, EACH ADD (please include units) CPT-4 62735 Mar 18, 2016 Vital Signs Date/Time: Mar 18, 2016 Cardiac Monitoring Heart Rate 84 bpm Weight 203.2 lbs Height 66.0 in BMI 32.79 Index Blood Pressure Diastolic 84 mmHg Blood Pressure Systolic 126 mmHg Results Name Result Date Reference Range Unit Abnormali ty Flag PAP TEST W/ HPV REGARDLESS ----. . [id number] ----HPV, high-risk Negative [id number] Negative Mammogram, Bilateral Screening A1C (IN HOUSE) ----A1C IN HOUSE 6.1 [id number] 4.3 - 5.6 % ----Previous A1c 6.1 [id number] ----Lot [id number] ----Exp date [id number] PDF Report ----PDF Report1 [facility] [id number] Immunizations Vaccine Administration Date PCV 13 Mar 18, 2016 ZOSTER (ZOSTAVAX) Mar 18, 2016 Summary Purpose [employer] Submission
--- OUTSIDE RECORDS SUMMARY | 2019-09-01 05:34 | XMS REPORT ---
Author Author Olivia BARILLAS Organization [employer] Address Unknown Phone Unavailable Care Team Providers Care Antenna Installer Name Role Phone SHOSHANA BARILLAS CP Unavailable [...] Date End Date Status Dosage Albuterol Sulfate NDC [address]-31 (2.5 MG/3ML) 0 .083% Inhalation 4 times a day as Needed 3 ml Misc. Devices NDC 0 N/A 4 times a day as neede jazmine Caballero to sign for Shoshana May 16, 2015 Nebulizer machine Results No Known Results Summary Purpose [employer] Submission
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
--- OUTSIDE RECORDS SUMMARY | 2019-09-01 05:34 | XMS REPORT ---
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 [place] [address], [place] [address] Apr, [facility] [address] [id number] [address] [place] [address], [place] [address] Apr, [facility] [address] [id number] [address] [place] [address], [place] [address] Apr, [facility] [address] [id number] [address] [place] [address], [place] [address] Apr, [facility] [address] [id number] [address] [place] [address], [place] [address] Apr, [facility] [address] [id number] [address] [place] [address], [place] [address] Apr, [facility] [address] [id number] [address] [place] [address], [place] [address] Mar, 2013 [facility] [address] [id number] [address] [place] [address], [place] [address] Mar, 2013 [facility] [address] [id number] [address] [place] [address], [place] [address] 29 Mar, 2013 [facility] [address] [id number] [address] [place] [address], [place] [address] 29 Mar, 2013 [facility] [address] [id number] [address] [place] [address] 10 Mar, 2013 [facility] [address] [id number] [address] [place] [address] 10 Mar, 2013 [facility] [address] [id number] [address] [place] [address] Mar, 2013 [facility] [address] [id number] [address] [place] [address], [place] [address] Mar, 2013 [facility] [address] [id number] [address] [place] [address], [place] [address] Mar, 2013 [facility] [address] [id number] [address] [place] [address], [place] [address] Mar, 2013 [facility] [address] [id number] [address] [place] [address] Mar, [facility] [address] [id number] [address] [place] [address], [place] [address] Mar, [facility] [address] [id number] [address] [place] [address], [place] [address] Feb, [facility] [address] [id number] [address] [place] [address], [place] [address] Feb, [facility] [address] [id number] [address] [place] [address], [place] [address] Jan, [facility] [address] [id number] [address] [place] [address], [place] [address] Jan, [facility] [address] [id number] [address] [place] [address], [place] [address] Jan, [facility] [address] [id number] [address] [place] [address], [place] [address] Jan, [facility] [address] [id number] [address] [place] [address], [place] [address] Dec, [facility] [address] [id number] [address] [place] [address], [place] [address] Dec, [facility] [address] [id number] [address] [place] [address], [place] [address] Dec, [facility] [address] [id number] [address] [place] [address], [place] [address] Dec, [facility] [address] [id number] [address] [place] [address], [place] [address] Dec, [facility] [address] [id number] [address] [place] [address], [place] [address] Dec, [facility] [address] [id number] [address] [place] [address], [place] [address] November, [facility] [address] [id number] [address] [place] [address], [place] [address] November, [facility] [address] [id number] [address] [place] [address], [place] [address] November, [facility] [address] [id number] [address] [place] [address], [place] [address] November, [facility] [address] [id number] [address] [place] [address], [place] [address] November, [facility] [address] [id number] [address] [place] [address], [place] [address] November, [facility] [address] [place] [id number] November, [facility] [address] [id number] [address] [place] [address], [place] [address] November, [facility] [address] [id number] [address] [place] [address], [place] [address] November, [facility] [address] [id number] [address] [place] [address], [place] [address] November, [facility] [address] [id number] [address] [place] [address], [place] [address] November, [facility] [address] [id number] [address] [place] [address], [place] [address] November, [facility] [address] [id number] [address] [place] [address], [place] [address] Oct, [facility] [address] [id number] [address] [place] [address], [place] [address] Oct, [facility] [address] [id number] [address] [place] [address], [place] [address] Oct, [facility] [address] [id number] [address] [place] [address], [place] [address] Oct, [facility] [address] [id number] [address] [place] [address], [place] [address] Oct, [facility] [address] [id number] [address] [place] [address], [place] [address] Oct, [facility] [address] [id number] [facility] [place] [address] Oct, [facility] [address] [id number] [address] [place] [address], [place] [address] Oct, [facility] [address] [id number] [address] [place] [address], [place] [address] Oct, [facility] [address] [id number] [address] [place] [address], [place] [address] Oct, [facility] [address] [id number] [address] [place] [address], [place] [address] Oct, [facility] [address] [id number] [address] [place] [address], [place] [address] Oct, [facility] [address] [id number] [address] [place] [address], [place] [address] Oct, [facility] [address] [id number] [address] [place] [address], [place] [address] Oct, [facility] [address] [id number] [address] [place] [address], [place] [address] Oct, [facility] [address] [id number] [address] [place] [address], [place] [address] Sep, [facility] [address] [id number] [address] [place] [address], [place] [address] Sep, [facility] [address] [id number] [address] [place] [address], [place] [address] Sep, [facility] [address] [id number] [address] [place] [address], [place] [address] Sep, [facility] [address] [id number] [address] [place] [address], [place] [address] Aug, [facility] [address] [id number] [address] [place] [address], [place] [address] Aug, [facility] [address] [id number] [address] [place] [address], [place] [address] Aug, [facility] [address] [id number] [address] [place] [address], [place] [address] Aug, [facility] [address] [id number] [address] [place] [address], [place] [address] Jul, [facility] [address] [id number] [address] [place] [address], [place] [address] Jul, [facility] [address] [id number] [address] [place] [address], [place] [address] Jul, [facility] [address] [id number] [address] [place] [address], [place] [address] Jul, [facility] [address] [id number] [address] [place] [address], [place] [address] Jul, [facility] [address] [id number] [address] [place] [address], [place] [address] Jul, [facility] [address] [id number] [address] [place] [address], [place] [address] Jul, [facility] [address] [id number] [address] [place] [address], [place] [address] Jul, [facility] [address] [id number] [address] [place] [address], [place] [address] Jul, [facility] [address] [id number] [address] [place] [address], [place] [address] Jul, [facility] [address] [id number] [address] [place] [address], [place] [address] Jul, [facility] [address] [id number] [address] [place] [address], [place] [address] Jul, [facility] [address] [id number] [address] [place] [address], [place] [address] Jul, [facility] [address] [id number] [address] [place] [address], [place] [address] Jul, [facility] [address] [id number] [address] [place] [address], [place] [address] Jun, [facility] [address] [id number] [address] [place] [address], [place] [address] Jun, [facility] [address] [id number] [address] [place] [address], [place] [address] Jun, [facility] [address] [id number] [address] [place] [address], [place] [address] Jun, [facility] [address] [id number] [address] [place] [address], [place] [address] May, [facility] [address] [id number] [address] [place] [address], [place] [address] May, [facility] [address] [id number] [address] [place] [address], [place] [address] May, [facility] [address] [id number] [address] [place] [address], [place] [address] May, [facility] [address] [id number] [address] [place] [address], [place] [address] May, [facility] [address] [id number] [address] [place] [address], [place] [address] May, [facility] [address] [id number] [address] [place] [address], [place] [address] May, [facility] [address] [id number] [address] [place] [address], [place] [address] May, [facility] [address] [id number] [address] [place] [address], [place] [address] Apr, [facility] [address] [id number] [address] [place] [address], [place] [address] Apr, [facility] [address] [id number] [address] [place] [address], [place] [address] Apr, [facility] [address] [id number] [address] [place] [address], [place] [address] Apr, [facility] [address] [id number] [address] [place] [address], [place] [address] Apr, [facility] [address] [id number] [address] [place] [address], [place] [address] Apr, [facility] [address] [id number] [address] [place] [address], [place] [address] 30 Mar, 2013 [facility] [address] [id number] [address] [place] [address], [place] [address] 26 Mar, 2013 [facility] [address] [id number] [address] [place] [address], [place] [address] 20 Mar, 2013 [facility] [address] [id number] [address] [place] [address], [place] [address] 17 Mar, 2013 [facility] [address] [id number] [address] [place] [address], [place] [address] 16 Mar, 2013 [facility] [address] [id number] [address] [place] [address], [place] [address] 05 Mar, 2013 [facility] [address] [id number] [address] [place] [address], [place] [address] Feb, [facility] [address] [id number] [address] [place] [address], [place] [address] Feb, [facility] [address] [id number] [address] [place] [address], [place] [address] Feb, [facility] [address] [id number] [address] [place] [address], [place] [address] Feb, [facility] [address] [id number] [address] [place] [address], [place] [address] Jan, [facility] [address] [id number] [address] [place] [address], [place] [address] Jan, [facility] [address] [id number] [address] [place] [address], [place] [address] Jan, [facility] [address] [id number] [address] [place] [address], [place] [address] Jan, [facility] [address] [id number] [address] [place] [address], [place] [address] Jan, [facility] [address] [id number] [address] [place] [address], [place] [address] Dec, [facility] [address] [id number] [address] [place] [address], [place] [address] Dec, [facility] [address] [id number] [address] [place] [address], [place] [address] Dec, [facility] [address] [id number] [address] [place] [address], [place] [address] November, [facility] [address] [id number] [address] [place] [address], [place] [address] November, [facility] [address] [id number] [address] [place] [address], [place] [address] November, [facility] [address] [id number] [address] [place] [address], [place] [address] Oct, [facility] [address] [id number] [address] [place] [address], [place] [address] Oct, [facility] [address] [id number] [address] [place] [address], [place] [address] Oct, [facility] [address] [id number] [address] [place] [address], [place] [address] Oct, [facility] [address] [id number] [address] [place] [address], [place] [address] 18 Oct, 2012 [facility] [address] [id number] [address] [place] [address], [place] [address] 17 Oct, 2012 [facility] [address] [id number] [address] [place] [address], [place] [address] 15 Oct, 2012 [facility] [address] [id number] [address] [place] [address], [place] [address] Sep, [facility] [address] [id number] [address] [place] [address], [place] [address] Sep, [facility] [address] [id number] [address] [place] [address], [place] [address] Sep, [facility] [address] [id number] [address] [place] [address], [place] [address] Sep, [facility] [address] [id number] [address] [place] [address], [place] [address] Aug, [facility] [address] [id number] [address] [place] [address], [place] [address] Aug, [facility] [address] [id number] [address] [place] [address], [place] [address] Aug, [facility] [address] [id number] [address] [place] [address], [place] [address] Aug, [facility] [address] [id number] [address] [place] [address], [place] [address] Aug, [facility] [address] [id number] [address] [place] [address], [place] [address] Aug, [facility] [address] [id number] [address] [place] [address], [place] [address] Jul, [facility] [address] [id number] [address] [place] [address], [place] [address] Jul, [facility] [address] [id number] [address] [place] [address], [place] [address] Jul, [facility] [address] [id number] [address] [place] [address], [place] [address] Jul, [facility] [address] [id number] [address] [place] [address], [place] [address] Jul, [facility] [address] [id number] [address] [place] [address], [place] [address] Jul, [facility] [address] [id number] [address] [place] [address], [place] [address] Jun, [facility] [address] [id number] [address] [place] [address], [place] [address] Jun, [facility] [address] [id number] [address] [place] [address], [place] [address] Jun, [facility] [address] [id number] [address] [place] [address], [place] [address] Jun, [facility] [address] [id number] [address] [place] [address], [place] [address] Jun, [facility] [address] [id number] [address] [place] [address], [place] [address] Jun, [facility] [address] [id number] [address] [place] [address], [place] [address] May, [facility] [address] [id number] [address] [place] [address], [place] [address] May, [facility] [address] [id number] [address] [place] [address], [place] [address] May, [facility] [address] [id number] [address] [place] [address], [place] [address] May, [facility] [address] [id number] [address] [place] [address], [place] [address] May, [facility] [address] [id number] [address] [place] [address], [place] [address] May, [facility] [address] [id number] [address] [place] [address], [place] [address] May, [facility] [address] [id number] [address] [place] [address], [place] [address] May, [facility] [address] [id number] [address] [place] [address], [place] [address] May, [facility] [address] [id number] [address] [place] [address], [place] [address] May, [facility] [address] [id number] [address] [place] [address], [place] [address] 31 Apr, 2012 [facility] [address] [id number] [address] [place] [address], [place] [address] 31 Apr, 2012 [facility] [address] [id number] [address] [place] [address], [place] [address] 23 Apr, 2012 [facility] [address] [id number] [address] [place] [address], [place] [address] 23 Apr, 2012 [facility] [address] [id number] [address] [place] [address], [place] [address] 16 Apr, 2012 [facility] [address] [id number] [address] [place] [address], [place] [address] 16 Apr, 2012 [facility] [address] [id number] [address] [place] [address], [place] [address] 15 Apr, 2012 [facility] [address] [id number] [address] [place] [address], [place] [address] 15 Apr, 2012 [facility] [address] [id number] [address] [place] [address], [place] [address] 05 Apr, 2012 [facility] [address] [id number] [address] [place] [address], [place] [address] 28 Sep, 2011 [facility] [address] [id number] [address] [place] [address], [place] [address] 26 Sep, 2011 [facility] [address] [id number] [address] [place] [address], [place] [address] 25 Sep, 2011 [facility] [address] [id number] [address] [place] [address], [place] [address] 19 Sep, 2011 [facility] [address] [id number] [address] [place] [address], [place] [address] 18 Sep, 2011 [facility] [address] [id number] [address] [place] [address], [place] [address] 05 Sep, 2011 [facility] [address] [id number] [address] [place] [address], [place] [address] Feb, [facility] [address] [id number] [address] [place] [address], [place] [address] Feb, [facility] [address] [id number] [address] [place] [address], [place] [address] Feb, [facility] [address] [id number] [address] [place] [address], [place] [address] Jan, [facility] [address] [id number] [address] [place] [address], [place] [address] Jan, [facility] [address] [id number] [address] [place] [address], [place] [address] Jan, [facility] [address] [id number] [address] [place] [address], [place] [address] Jan, [facility] [address] [id number] [address] [place] [address], [place] [address] Dec, [facility] [address] [id number] [address] [place] [address], [place] [address] November, [facility] [address] [id number] [address] [place] [address], [place] [address] November, [facility] [address] [id number] [address] [place] [address], [place] [address] November, [facility] [address] [id number] [address] [place] [address], [place] [address] November, [facility] [address] [id number] [address] [place] [address], [place] [address] November, [facility] [address] [id number] [address] [place] [address], [place] [address] November, [facility] [address] [id number] [address] [place] [address], [place] [address] Oct, [facility] [address] [id number] [address] [place] [address], [place] [address] Oct, [facility] [address] [id number] [address] [place] [address], [place] [address] Sep, [facility] [address] [id number] [address] [place] [address], [place] [address] Sep, [facility] [address] [id number] [address] [place] [address], [place] [address] Sep, [facility] [address] [id number] [address] [place] [address], [place] [address] Aug, [facility] [address] [id number] [address] [place] [address], [place] [address] Aug, [facility] [address] [id number] [address] [place] [address], [place] [address] 14 Aug, 2011 [facility] [address] [id number] [address] [place] [address], [place] [address] Aug, [facility] [address] [id number] [address] [place] [address], [place] [address] Aug, [facility] [address] [id number] [address] [place] [address], [place] [address] Aug, [facility] [address] [id number] [address] [place] [address], [place] [address] Jul, [facility] [address] [id number] [address] [place] [address], [place] [address] Jul, [facility] [address] [id number] [address] [place] [address], [place] [address] Jul, [facility] [address] [id number] [address] [place] [address], [place] [address] Jul, [facility] [address] [id number] [address] [place] [address], [place] [address] Jul, [facility] [address] [id number] [address] [place] [address], [place] [address] Jul, [facility] [address] [id number] [address] [place] [address] [address] Jul, [facility] [address] [id number] [address] [place] [address], [place] [address] Jul, [facility] [address] [id number] [address] [place] [address], [place] [address] Jul, [facility] [address] [id number] [address] [place] [address], [place] [address] Jul, [facility] [address] [id number] [address] [place] [address], [place] [address] Jun, [facility] [address] [id number] [address] [place] [address], [place] [address] Jun, [facility] [address] [id number] [address] [place] [address], [place] [address] Jun, [facility] [address] [id number] [address] [place] [address], [place] [address] Jun, [facility] [address] [id number] [address] [place] [address], [place] [address] May, [facility] [address] [id number] [address] [place] [address], [place] [address] May, [facility] [address] [id number] [address] [place] [address], [place] [address] May, [facility] [address] [id number] [address] [place] [address], [place] [address] May, [facility] [address] [id number] [address] [place] [address], [place] [address] Apr, [facility] [address] [id number] [address] [place] [address], [place] [address] Apr, [facility] [address] [id number] [address] [place] [address], [place] [address] November, [facility] [address] [id number] [address] [place] [address], [place] [address] Oct, [facility] [address] [id number] [address] [place] [address], [place] [address] 17 Aug, 2010 [facility] [address] [id number] [address] [place] [address], [place] [address] 28 Jun, 2010 [facility] [address] [id number] [address] [place] [address], [place] [address] 28 Jun, 2010 [facility] [address] [id number] [address] [place] [address], [place] [address] 27 Jun, 2010 [facility] [address] [id number] [address] [place] [address], [place] [address] 03 Jun, 2010 [facility] [address] [id number] [address] [place] [address], [place] [address] 29 May, 2010 [facility] [address] [id number] [address] [place] [address], [place] [address] 27 Apr, 2010 [facility] [address] [id number] [address] [place] [address], [place] [address] 13 Oct, 2009 [facility] [address] [id number] [address] [place] [address], [place] [address] 13 Aug, 2009 [facility] [address] [id number] [address] [place] [address], [place] [address] 20 Jul, 2009 [facility] [address] [id number] [address] [place] [address], [place] [address] 22 Jun, 2009 [facility] [address] [id number] [address] [place] [address], [place] [address] 16 Jun, 2009 [facility] [address] [id number] [address] [place] [address], [place] [address] 14 Jun, 2009 [facility] [address] [id number] [address] [place] [address], [place] [address] 14 Jun, 2009 [facility] [address] [id number] [address] [place] [address], [place] [address] 09 May, 2009 [facility] [address] [id number] [address] [place] [address], [place] [address] 20 Apr, 2009 [facility] [address] [facility] [id number] [address] [place] [address] 15 Mar, 2009 [facility] [address] [facility] [id number] [address] [place] [address] 14 Mar, 2009 [facility] [address] [facility] [id number] [address] [place] [address] 11 Dec, 2008 IMMUNIZATIONS No Known Immunizations SOCIAL HISTORY Never Assessed REASON FOR VISIT PT copmes in today feeling illl and weak-[place] PLAN OF CARE Activity Details Follow Up prn Reason: VITAL SIGNS MEDICATIONS Medication Instructions Dosage Frequency Start Date End Date Duration S tatus Promethazine-Codeine 6.25-10 MG/5ML Orally every 6 hrs 2.5 -5 ml as needed 6h Jul, Active Albuterol Sulfate (2.5 MG/3ML) 0.083% Inhalation Three times a day 3 ml as needed 8h Jul, Active RESULTS Name Result Date Reference Range INFLUENZA A & B (IN HOUSE) 2017-08-10 INFLUENZA A negative INFLUENZA B negative Control positive Lot # [id number] Exp date 05/2019 PROCEDURES Procedure Date Ordered Result Body Site INFLUENZA ASSAY W/OPTIC Aug 10, 2017 [facility] VISIT ESTABLISHED PATIENT Aug 10, 2017 INSTRUCTIONS MEDICATIONS ADMINISTERED No Known Medications [...]
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
--- OUTSIDE RECORDS SUMMARY | 2019-09-01 05:34 | XMS REPORT ---
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 [id number] Apr, [facility] [address] [id number] [address] [place] [address], [place] [address] Apr, [facility] [address] [id number] [address] [place] [id number] Apr, [facility] [address] [id number] [address] [place] [address], [place] [address] Apr, [facility] [address] [id number] [address] [place] [address], [place] [address] 02 Apr, 2014 [facility] [address] [id number] [address] [place] [address], [place] [address] Mar, 2013 [facility] [address] [id number] [address] [place] [address], [place] [address] Mar, 2013 [facility] [address] [id number] [address] [place] [address], [place] [address] Mar, 2013 [facility] [address] [id number] [address] [place] [address], [place] [address] Mar, 2013 [facility] [address] [id number] [address] [place] [address], [place] [address] Mar, 2013 [facility] [address] [id number] [address] [place] [address], [place] [address] Mar, 2013 [facility] [address] [id number] [address] [place] [address], [place] [address] Mar, 2013 [facility] [address] [id number] [address] [place] [address], [place] [address] Mar, 2013 [facility] [address] [id number] [address] [place] [address], [place] [address] Mar, 2013 [facility] [address] [id number] [address] [place] [address], [place] [address] Mar, 2013 [facility] [address] [id number] [address] [place] [address], [place] [address] Mar, 2013 [facility] [address] [id number] [address] [place] [address], [place] [address] Mar, 2013 [facility] [address] [id number] [address] [place] [address], [place] [address] Feb, [facility] [address] [id number] [address] [place] [address], [place] [address] Feb, [facility] [address] [id number] [address] [place] [address], [place] [address] Jan, [facility] [address] [id number] [address] [place] [address], [place] [address] Jan, [facility] [address] [id number] [address] [place] [address], [place] [address] Jan, [facility] [address] [id number] [address] [place] [address], [place] [address] Jan, [facility] [address] [id number] [address] [place] [address], [place] [address] Dec, [facility] [address] [id number] [address] [place] [address], [place] [address] Dec, [facility] [address] [id number] [address] [place] [address], [place] [address] Dec, [facility] [address] [id number] [address] [place] [address], [place] [address] Dec, [facility] [address] [id number] [address] [place] [address], [place] [address] Dec, [facility] [address] [id number] [address] [place] [address], [place] [address] Dec, [facility] [address] [id number] [address] [place] [address], [place] [address] November, [facility] [address] [id number] [address] [place] [address], [place] [address] November, [facility] [address] [id number] [address] [place] [address], [place] [address] November, [facility] [address] [id number] [address] [place] [address], [place] [address] November, [facility] [address] [id number] [address] [place] [address], [place] [address] November, [facility] [address] [id number] [address] [place] [address], [place] [address] November, [address] [id number] November, [facility] [address] [id number] [address] [place] [address], [place] [address] November, [facility] [address] [id number] [address] [place] [address], [place] [address] November, [facility] [address] [id number] [address] [place] [address], [place] [address] November, [facility] [address] [id number] [address] [place] [address], [place] [address] November, [facility] [address] [id number] [address] [place] [address], [place] [address] November, [facility] [address] [id number] [address] [place] [address], [place] [address] Oct, [facility] [address] [id number] [address] [place] [address], [place] [address] Oct, [facility] [address] [id number] [address] [place] [address], [place] [address] Oct, [facility] [address] [id number] [address] [place] [address], [place] [address] Oct, [facility] [address] [id number] [address] [place] [address], [place] [address] Oct, [facility] [address] [id number] [address] [place] [address], [place] [address] Oct, [facility] [address] [id number] [address] [place] [address], [place] [address] Oct, [facility] [address] [id number] [address] [place] [address], [place] [address] Oct, [facility] [address] [id number] [address] [place] [address], [place] [address] Oct, [facility] [address] [id number] [address] [place] [address], [place] [address] Oct, [facility] [address] [id number] [address] [place] [address], [place] [address] Oct, [facility] [address] [id number] [facility] [place] [address] Oct, [facility] [address] [id number] [address] [place] [address], [place] [address] Oct, [facility] [address] [id number] [address] [place] [address], [place] [address] Oct, [facility] [address] [id number] [address] [place] [address], [place] [address] Oct, [facility] [address] [id number] [address] [place] [address], [place] [address] Sep, [facility] [address] [id number] [address] [place] [address], [place] [address] Sep, [facility] [address] [id number] [address] [place] [address], [place] [address] Sep, [facility] [address] [id number] [address] [place] [address], [place] [address] Sep, [facility] [address] [id number] [address] [place] [address], [place] [address] Aug, [facility] [address] [id number] [address] [place] [address], [place] [address] Aug, [facility] [address] [id number] [address] [place] [address], [place] [address] Aug, [facility] [address] [id number] [address] [place] [address], [place] [address] Aug, [facility] [address] [id number] [address] [place] [address], [place] [address] Jul, [facility] [address] [id number] [address] [place] [address], [place] [address] Jul, [facility] [address] [id number] [address] [place] [address], [place] [address] Jul, [facility] [address] [id number] [address] [place] [address], [place] [address] Jul, [facility] [address] [id number] [address] [place] [address], [place] [address] Jul, [facility] [address] [id number] [address] [place] [address], [place] [address] Jul, [facility] [address] [id number] [address] [place] [address], [place] [address] Jul, [facility] [address] [id number] [address] [place] [address], [place] [address] Jul, [facility] [address] [id number] [address] [place] [address], [place] [address] Jul, [facility] [address] [id number] [address] [place] [address], [place] [address] Jul, [facility] [address] [id number] [address] [place] [address], [place] [address] Jul, [facility] [address] [id number] [address] [place] [address], [place] [address] Jul, [facility] [address] [id number] [address] [place] [address], [place] [address] Jul, [facility] [address] [id number] [address] [place] [address], [place] [address] Jul, [facility] [address] [id number] [address] [place] [address], [place] [address] Jun, [facility] [address] [id number] [address] [place] [address], [place] [address] Jun, [facility] [address] [id number] [address] [place] [address], [place] [address] Jun, [facility] [address] [id number] [address] [place] [address], [place] [address] Jun, [facility] [address] [id number] [address] [place] [id number] May, [facility] [address] [id number] [address] [place] [address], [place] [address] May, [facility] [address] [id number] [address] [place] [id number] May, [facility] [address] [id number] [address] [place] [address], [place] [address] May, [facility] [address] [id number] [address] [place] [id number] May, [facility] [address] [id number] [address] [place] [address], [place] [address] May, [facility] [address] [id number] [address] [place] [id number] May, [facility] [address] [id number] [address] [place] [id number] May, [facility] [address] [id number] [address] [place] [address], [place] [address] Apr, [facility] [address] [id number] [address] [place] [id number] Apr, [facility] [address] [id number] [address] [place] [id number] Apr, [facility] [address] [id number] [address] [place] [id number] Apr, [facility] [address] [id number] [address] [place] [id number] Apr, [facility] [address] [id number] [address] [place] [id number] Apr, [facility] [address] [id number] [address] [place] [id number] 30 Mar, 2013 [facility] [address] [id number] [address] [place] [address], [place] [address] Mar, [facility] [address] [id number] [address] [place] [address], [place] [id number] 20 Mar, 2013 [facility] [address] [id number] [address] [place] [address], [place] [id number] 17 Mar, 2013 [facility] [address] [id number] [address] [place] [address], [place] [id number] 16 Mar, 2013 [facility] [address] [id number] [address] [place] [address], [place] [id number] 05 Mar, 2013 [facility] [address] [id number] [address] [place] [address], [place] [address] Feb, [facility] [address] [id number] [address] [place] [address], [place] [address] Feb, [facility] [address] [id number] [address] [place] [address], [place] [address] Feb, [facility] [address] [id number] [address] [place] [address], [place] [address] Feb, [facility] [address] [id number] [address] [place] [address], [place] [address] Jan, [facility] [address] [id number] [address] [place] [address], [place] [address] Jan, [facility] [address] [id number] [address] [place] [address], [place] [address] Jan, [facility] [address] [id number] [address] [place] [address], [place] [address] Jan, [facility] [address] [id number] [address] [place] [address], [place] [address] Jan, [facility] [address] [id number] [address] [place] [address], [place] [address] Dec, [facility] [address] [id number] [address] [place] [address], [place] [address] Dec, [facility] [address] [id number] [address] [place] [address], [place] [address] Dec, [facility] [address] [id number] [address] [place] [address], [place] [address] November, [facility] [address] [id number] [address] [place] [address], [place] [address] November, [facility] [address] [id number] [address] [place] [address], [place] [address] November, [facility] [address] [id number] [address] [place] [address], [place] [address] Oct, [facility] [address] [id number] [address] [place] [address], [place] [address] Oct, [facility] [address] [id number] [address] [place] [address], [place] [address] Oct, [facility] [address] [address] [id number] [address] [place] [address], [place] [address] Oct, [facility] [address] [id number] [address] [place] [address], [place] [address] Oct, [facility] [address] [id number] [address] [place] [address], [place] [address] Oct, [facility] [address] [id number] [address] [place] [address], [place] [address] Oct, [facility] [address] [id number] [address] [place] [address], [place] [address] Sep, [facility] [address] [id number] [address] [place] [address], [place] [address] Sep, [facility] [address] [id number] [address] [place] [address], [place] [address] Sep, [facility] [address] [id number] [address] [place] [address], [place] [address] Sep, [facility] [address] [id number] [address] [place] [address], [place] [address] Aug, [facility] [address] [id number] [address] [place] [address], [place] [address] Aug, [facility] [address] [id number] [address] [place] [address], [place] [address] Aug, [facility] [address] [id number] [address] [place] [address], [place] [address] Aug, [facility] [address] [id number] [address] [place] [address], [place] [address] Aug, [facility] [address] [id number] [address] [place] [address], [place] [address] Aug, [facility] [address] [id number] [address] [place] [address], [place] [address] Jul, [facility] [address] [id number] [address] [place] [address], [place] [address] Jul, [facility] [address] [id number] [address] [place] [address], [place] [address] Jul, [facility] [address] [id number] [address] [place] [address], [place] [address] Jul, [facility] [address] [id number] [address] [place] [address], [place] [address] Jul, [facility] [address] [id number] [address] [place] [address], [place] [address] Jul, [facility] [address] [id number] [address] [place] [address], [place] [address] Jun, [facility] [address] [id number] [address] [place] [address], [place] [address] Jun, [facility] [address] [id number] [address] [place] [address], [place] [address] Jun, [facility] [address] [id number] [address] [place] [address], [place] [address] Jun, [facility] [address] [id number] [address] [place] [address], [place] [address] Jun, [facility] [address] [id number] [address] [place] [address], [place] [address] Jun, [facility] [address] [id number] [address] [place] [address], [place] [address] May, [facility] [address] [id number] [address] [place] [address], [place] [address] May, [facility] [address] [id number] [address] [place] [address], [place] [address] May, [facility] [address] [id number] [address] [place] [address], [place] [address] May, [facility] [address] [id number] [address] [place] [address], [place] [address] May, [facility] [address] [id number] [address] [place] [address], [place] [address] May, [facility] [address] [id number] [address] [place] [address], [place] [address] May, [facility] [address] [id number] [address] [place] [address], [place] [address] May, [facility] [address] [id number] [address] [place] [address], [place] [address] May, [facility] [address] [id number] [address] [place] [address], [place] [address] May, [facility] [address] [id number] [address] [place] [id number] Apr, [facility] [address] [id number] [address] [place] [address], [place] [address] Apr, [facility] [address] [id number] [address] [place] [address], [place] [address] Apr, [facility] [address] [id number] [address] [place] [address], [place] [address] Apr, [facility] [address] [id number] [address] [place] [id number] 16 Apr, 2012 [facility] [address] [id number] [address] [place] [address], [place] [address] 16 Apr, 2012 [facility] [address] [id number] [address] [place] [address], [place] [address] 15 Apr, 2012 [facility] [address] [id number] [address] [place] [address], [place] [address] 15 Apr, 2012 [facility] [address] [id number] [address] [place] [address], [place] [address] 05 Apr, 2012 [facility] [address] [id number] [address] [place] [address], [place] [address] 28 Mar, 2012 [facility] [address] [id number] [address] [place] [address], [place] [address] 26 Mar, 2012 [facility] [address] [id number] [address] [place] [address], [place] [address] 25 Mar, 2012 [facility] [address] [id number] [address] [place] [address], [place] [address] 19 Mar, 2012 [facility] [address] [id number] [address] [place] [address], [place] [address] 18 Mar, 2012 [facility] [address] [id number] [address] [place] [address], [place] [address] 05 Mar, 2012 [facility] [address] [id number] [address] [place] [address], [place] [address] 28 Feb, 2012 [facility] [address] [id number] [address] [place] [address], [place] [address] Feb, [facility] [address] [id number] [address] [place] [address], [place] [address] Feb, [facility] [address] [id number] [address] [place] [address], [place] [address] Jan, [facility] [address] [id number] [address] [place] [address], [place] [address] Jan, [facility] [address] [id number] [address] [place] [address], [place] [address] Jan, [facility] [address] [id number] [address] [place] [address], [place] [address] Jan, [facility] [address] [id number] [address] [place] [address], [place] [address] Dec, [facility] [address] [id number] [address] [place] [address], [place] [address] November, [facility] [address] [id number] [address] [place] [address], [place] [address] November, [facility] [address] [id number] [address] [place] [address], [place] [address] November, [facility] [address] [id number] [address] [place] [address], [place] [address] November, [facility] [address] [id number] [address] [place] [address], [place] [address] November, [facility] [address] [id number] [address] [place] [address], [place] [address] November, [facility] [address] [id number] [address] [place] [address], [place] [address] Oct, [facility] [address] [id number] [address] [place] [address], [place] [address] Oct, [facility] [address] [id number] [address] [place] [address], [place] [address] Sep, [facility] [address] [id number] [address] [place] [address], [place] [address] Sep, [facility] [address] [id number] [address] [place] [address], [place] [address] Sep, [facility] [address] [id number] [address] [place] [address], [place] [address] Aug, [facility] [address] [id number] [address] [place] [address], [place] [address] Aug, 2011 [facility] [address] [id number] [address] [place] [address], [place] [address] 14 Aug, 2011 [facility] [address] [id number] [address] [place] [address], [place] [address] Aug, [facility] [address] [id number] [address] [place] [address], [place] [address] Aug, [facility] [address] [id number] [address] [place] [address], [place] [address] Aug, [facility] [address] [id number] [address] [place] [address], [place] [address] Jul, [facility] [address] [id number] [address] [place] [address], [place] [address] Jul, [facility] [address] [id number] [address] [place] [address], [place] [address] Jul, [facility] [address] [id number] [address] [place] [address], [place] [address] Jul, [facility] [address] [id number] [address] [place] [address], [place] [address] Jul, [facility] [address] [id number] [address] [place] [address], [place] [address] Jul, [facility] [address] [id number] [address] [place] [address], [place] [address] Jul, [facility] [address] [id number] [address] [place] [address], [place] [address] Jul, [facility] [address] [id number] [address] [place] [address], [place] [address] Jul, [facility] [address] [id number] [address] [place] [address], [place] [address] Jul, [facility] [address] [id number] [address] [place] [address], [place] [address] Jun, [facility] [address] [id number] [address] [place] [address], [place] [address] Jun, [facility] [address] [id number] [address] [place] [address], [place] [address] Jun, [facility] [address] [id number] [address] [place] [address], [place] [address] Jun, [facility] [address] [id number] [address] [place] [address], [place] [address] May, [facility] [address] [id number] [address] [place] [address], [place] [address] May, [facility] [address] [id number] [address] [place] [address], [place] [address] May, [facility] [address] [id number] [address] [place] [address], [place] [address] May, [facility] [address] [id number] [address] [place] [address], [place] [address] Apr, [facility] [address] [id number] [address] [place] [address], [place] [address] Apr, [facility] [address] [id number] [address] [place] [address], [place] [address] November, [facility] [address] [id number] [address] [place] [address], [place] [address] Oct, [facility] [address] [id number] [address] [place] [address], [place] [address] Aug, [facility] [address] [id number] [address] [place] [address], [place] [address] Jun, [facility] [address] [id number] [address] [place] [address], [place] [address] Jun, [facility] [address] [id number] [address] [place] [address], [place] [address] Jun, [facility] [address] [id number] [address] [place] [address], [place] [address] Jun, [facility] [address] [id number] [address] [place] [id number] 29 May, 2010 [facility] [address] [id number] [address] [place] [id number] 27 Apr, 2010 [facility] [address] [id number] [address] [place] [id number] Oct, [facility] [address] [id number] [address] [place] [id number] Aug, [facility] [address] [id number] [address] [place] [id number] Jul, [facility] [address] [id number] [address] [place] [id number] Jun, [facility] [address] [id number] [address] [place] [id number] 16 Jun, 2009 [facility] [address] [id number] [address] [place] [id number] 14 Jun, 2009 [facility] [address] [id number] [address] [place] [id number] 14 Jun, 2009 [facility] [address] [id number] [address] [place] [id number] May, [facility] [address] [id number] [address] [place] [id number] Apr, [facility] [address] [id number] [address] [place] [id number] 15 Mar, 2009 [facility] [address] [id number] [address] [place] [id number] 14 Mar, 2009 [facility] [address] [id number] [address] [place] [id number] Dec, IMMUNIZATIONS No Known Immunizations SOCIAL HISTORY Never Assessed REASON FOR VISIT Controlled Med Refill 02/02/2017 PLAN OF CARE VITAL SIGNS MEDICATIONS Medication [...]
--- OUTSIDE RECORDS SUMMARY | 2019-09-01 05:35 | XMS REPORT ---
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 [place] [address], [place] [address] May, [facility] [address] [id number] [address] [place] [address], [place] [address] Apr, [facility] [address] [id number] [address] [place] [address], [place] [address] Apr, [facility] [address] [id number] [address] [place] [address] Apr, [facility] [address] [id number] [address] [place] [address], [place] [address] Apr, [facility] [address] [id number] [address] [place] [address], [place] [address] Apr, [facility] [address] [id number] [address] [place] [address], [place] [address] Apr, [facility] [address] [id number] [address] [place] [address], [place] [address] 08 Apr, 2013 [facility] [address] [id number] [address] [place] [address], [place] [address] 08 Apr, 2013 [facility] [address] [id number] [address] [place] [address], [place] [address] Apr, [facility] [address] [id number] [address] [place] [address], [place] [address] Apr, 2013 [facility] [address] [id number] [address] [place] [address], [place] [address] 29 Mar, 2013 [facility] [address] [id number] [address] [place] [address], [place] [address] 29 Mar, 2013 [facility] [address] [id number] [address] [place] [address], [place] [address] 29 Mar, 2013 [facility] [address] [id number] [address] [place] [address], [place] [address] 29 Mar, 2013 [facility] [address] [id number] [address] [place] [address], [place] [address] 10 Mar, 2013 [facility] [address] [id number] [address] [place] [address], [place] [address] 10 Mar, 2013 [facility] [address] [id number] [address] [place] [address], [place] [address] 04 Sep, 2013 [facility] [address] [id number] [address] [place] [address], [place] [address] 04 Sep, 2013 [facility] [address] [id number] [address] [place] [address], [place] [address] Sep, 2013 [facility] [address] [id number] [address] [place] [address], [place] [address] Sep, 2013 [facility] [address] [id number] [address] [place] [address], [place] [address] Sep, 2013 [facility] [address] [id number] [address] [place] [address], [place] [address] Mar, [facility] [address] [id number] [address] [place] [address], [place] [address] Feb, [facility] [address] [id number] [address] [place] [address], [place] [address] Feb, [facility] [address] [id number] [address] [place] [address], [place] [address] Jan, [facility] [address] [id number] [address] [place] [address], [place] [address] Jan, [facility] [address] [id number] [address] [place] [address], [place] [address] Jan, [facility] [address] [id number] [address] [place] [address], [place] [address] Jan, [facility] [address] [id number] [address] [place] [address], [place] [address] Dec, [facility] [address] [id number] [address] [place] [address], [place] [address] Dec, [facility] [address] [id number] [address] [place] [address], [place] [address] Dec, [facility] [address] [id number] [address] [place] [address], [place] [address] Dec, [facility] [address] [id number] [address] [place] [address], [place] [address] Dec, [facility] [address] [id number] [address] [place] [address], [place] [address] Dec, [facility] [address] [id number] [address] [place] [address], [place] [address] November, [facility] [address] [id number] [address] [place] [address], [place] [address] November, [facility] [address] [id number] [address] [place] [address], [place] [address] November, [facility] [address] [id number] [address] [place] [address], [place] [address] November, [facility] [address] [id number] [address] [place] [address], [place] [address] November, [facility] [address] [id number] [address] [place] [address], [place] [address] November, [facility] [address] [place] [id number] November, [facility] [address] [id number] [address] [place] [address], [place] [address] November, [facility] [address] [id number] [address] [place] [address], [place] [address] November, [facility] [address] [id number] [address] [place] [address], [place] [address] November, [facility] [address] [id number] [address] [place] [address], [place] [address] November, [facility] [address] [id number] [address] [place] [address], [place] [address] November, [facility] [address] [id number] [address] [place] [address], [place] [address] Oct, [facility] [address] [id number] [address] [place] [address], [place] [address] Oct, [facility] [address] [id number] [address] [place] [address], [place] [address] Oct, [facility] [address] [id number] [address] [place] [address], [place] [address] Oct, [facility] [address] [id number] [address] [place] [address], [place] [address] Oct, [facility] [address] [id number] [address] [place] [address], [place] [address] Oct, [facility] [address] [id number] [address] [place] [address], [place] [address] Oct, [facility] [address] [id number] [address] [place] [address], [place] [address] Oct, [facility] [address] [id number] [address] [place] [address], [place] [address] Oct, [facility] [address] [id number] [address] [place] [address], [place] [address] Oct, [facility] [address] [id number] [address] [place] [address], [place] [address] Oct, [facility] [address] [id number] [address] [place] [address], [place] [address] Oct, [facility] [address] [id number] [address] [place] [address], [place] [address] Oct, [facility] [address] [id number] [address] [place] [address], [place] [address] Oct, [facility] [address] [id number] [address] [place] [address], [place] [address] Oct, [facility] [address] [id number] [address] [place] [address], [place] [address] Sep, [facility] [address] [id number] [address] [place] [address], [place] [address] Sep, [facility] [address] [id number] [address] [place] [address], [place] [address] Sep, [facility] [address] [id number] [address] [place] [address], [place] [address] Sep, [facility] [address] [id number] [address] [place] [address], [place] [address] Aug, [facility] [address] [id number] [address] [place] [address], [place] [address] Aug, [facility] [address] [id number] [address] [place] [address], [place] [address] Aug, [facility] [address] [id number] [address] [place] [address], [place] [address] Aug, [facility] [address] [id number] [address] [place] [address], [place] [address] Jul, [facility] [address] [id number] [address] [place] [address], [place] [address] Jul, [facility] [address] [id number] [address] [place] [address], [place] [address] Jul, [facility] [address] [id number] [address] [place] [address], [place] [address] Jul, [facility] [address] [id number] [address] [place] [address], [place] [address] Jul, [facility] [address] [id number] [address] [place] [address], [place] [address] Jul, [facility] [address] [id number] [address] [place] [address], [place] [address] Jul, [facility] [address] [id number] [address] [place] [address], [place] [address] Jul, [facility] [address] [id number] [address] [place] [address], [place] [address] Jul, [facility] [address] [id number] [address] [place] [address], [place] [address] Jul, [facility] [address] [id number] [address] [place] [address], [place] [address] Jul, [facility] [address] [id number] [address] [place] [address], [place] [address] Jul, [facility] [address] [id number] [address] [place] [address], [place] [address] Jul, [facility] [address] [id number] [address] [place] [address], [place] [address] Jul, [facility] [address] [id number] [address] [place] [address], [place] [address] Jun, [facility] [address] [id number] [address] [place] [address], [place] [address] Jun, [facility] [address] [id number] [address] [place] [address], [place] [address] Jun, [facility] [address] [id number] [address] [place] [address], [place] [address] Jun, [facility] [address] [id number] [address] [place] [address], [place] [address] May, [facility] [address] [id number] [address] [place] [address] May, [facility] [address] [id number] [address] [place] [address], [place] [address] May, [facility] [address] [id number] [address] [place] [address], [place] [address] May, [facility] [address] [id number] [address] [place] [address], [place] [address] May, [facility] [address] [id number] [address] [place] [address], [place] [address] May, [facility] [address] [id number] [address] [place] [address], [place] [address] May, [facility] [address] [id number] [address] [place] [address], [place] [address] May, [facility] [address] [id number] [address] [place] [id number] Apr, [facility] [address] [id number] [address] [place] [id number] Apr, [facility] [address] [id number] [address] [place] [address], [place] [address] Apr, [facility] [address] [id number] [address] [place] [address], [place] [address] Apr, [facility] [address] [id number] [address] [place] [address], [place] [address] Apr, [facility] [address] [id number] [address] [place] [address], [place] [address] Apr, [facility] [address] [id number] [address] [place] [address], [place] [address] 30 Mar, 2013 [facility] [address] [id number] [address] [place] [address], [place] [address] 26 Mar, 2013 [facility] [address] [id number] [address] [place] [address], [place] [address] 20 Mar, 2012 [facility] [address] [id number] [address] [place] [address], [place] [address] 17 Mar, 2013 [facility] [address] [id number] [address] [place] [address], [place] [address] 16 Mar, 2013 [facility] [address] [id number] [address] [place] [address], [place] [address] 05 Mar, 2013 [facility] [address] [id number] [address] [place] [address], [place] [address] Feb, [facility] [address] [id number] [address] [place] [address], [place] [address] Feb, [facility] [address] [id number] [address] [place] [address], [place] [address] Feb, [facility] [address] [id number] [address] [place] [address], [place] [address] Feb, [facility] [place] [address] [id number] [address] [place] [address], [place] [address] Jan, [facility] [address] [id number] [address] [place] [address], [place] [address] Jan, [facility] [address] [id number] [address] [place] [address], [place] [address] Jan, [facility] [address] [id number] [address] [place] [address], [place] [address] 23 Jan, 2013 [facility] [address] [id number] [address] [place] [address], [place] [address] Jan, [facility] [address] [id number] [address] [place] [address], [place] [address] Dec, [facility] [address] [id number] [address] [place] [address], [place] [address] Dec, [facility] [address] [id number] [address] [place] [address], [place] [address] Dec, [facility] [address] [id number] [address] [place] [address], [place] [address] November, [facility] [address] [id number] [address] [place] [address], [place] [address] November, [facility] [address] [id number] [address] [place] [address], [place] [address] November, [facility] [address] [id number] [address] [place] [address], [place] [address] Oct, [facility] [address] [id number] [address] [place] [address], [place] [address] Oct, [facility] [place] [address] [id number] [address] [place] [address], [place] [address] Oct, [facility] [place] [address] [id number] [address] [place] [address], [place] [address] Oct, [facility] [place] [address] [id number] [address] [place] [address], [place] [address] 18 Oct, 2012 [facility] [address] [id number] [address] [place] [address], [place] [address] 17 Oct, 2012 [facility] [address] [id number] [address] [place] [address], [place] [address] 15 Oct, 2012 [facility] [address] [id number] [address] [place] [address], [place] [address] Sep, [facility] [address] [id number] [address] [place] [address], [place] [address] Sep, [facility] [address] [id number] [address] [place] [address] Sep, [facility] [place] [address] [id number] [address] [place] [address], [place] [address] Sep, [facility] [place] [address] [id number] [address] [place] [address], [place] [address] Aug, [facility] [address] [id number] [address] [place] [address], [place] [address] Aug, [facility] [address] [id number] [address] [place] [address], [place] [address] Aug, [facility] [place] [address] [id number] [address] [place] [address], [place] [address] Aug, [facility] [address] [id number] [address] [place] [address], [place] [address] Aug, [facility] [address] [id number] [address] [place] [address], [place] [address] Aug, [facility] [address] [id number] [address] [place] [address], [place] [address] Jul, [facility] [address] [id number] [address] [place] [address], [place] [address] Jul, [facility] [address] [id number] [address] [place] [address], [place] [address] Jul, [facility] [place] [address] [id number] [address] [place] [address], [place] [address] Jul, [facility] [address] [id number] [address] [place] [address], [place] [address] Jul, [facility] [address] [id number] [address] [place] [address], [place] [address] Jul, [facility] [address] [id number] [address] [place] [address], [place] [address] Jun, [facility] [address] [id number] [address] [place] [address], [place] [address] Jun, [facility] [address] [id number] [address] [place] [address], [place] [address] Jun, [facility] [address] [id number] [address] [place] [address], [place] [address] Jun, [facility] [address] [id number] [address] [place] [address], [place] [address] Jun, [facility] [address] [id number] [address] [place] [address], [place] [address] Jun, [facility] [address] [id number] [address] [place] [address], [place] [address] May, [facility] [address] [id number] [address] [place] [address], [place] [address] May, [facility] [address] [id number] [address] [place] [address], [place] [address] May, [facility] [address] [id number] [address] [place] [address], [place] [address] May, [facility] [address] [id number] [address] [place] [address], [place] [address] May, [facility] [address] [id number] [address] [place] [address], [place] [address] May, [facility] [address] [id number] [address] [place] [address], [place] [address] May, [facility] [address] [id number] [address] [place] [address], [place] [address] May, [facility] [address] [id number] [address] [place] [address], [place] [address] May, [facility] [address] [id number] [address] [place] [address], [place] [address] May, [facility] [address] [id number] [address] [place] [address], [place] [address] Apr, [facility] [address] [id number] [address] [place] [address] 31 Apr, 2012 [facility] [address] [id number] [address] [place] [address], [place] [address] 23 Apr, 2012 [facility] [address] [id number] [address] [place] [address] 23 Apr, 2012 [facility] [address] [id number] [address] [place] [address], [place] [address] 16 Apr, 2012 [facility] [address] [id number] [address] [place] [address] 16 Apr, 2012 [facility] [address] [id number] [address] [place] [address], [place] [address] 15 Apr, 2012 [facility] [address] [id number] [address] [place] [address], [place] [address] 15 Apr, 2012 [facility] [address] [id number] [address] [place] [address] 05 Apr, 2012 [facility] [address] [id number] [address] [place] [address], [place] [address] 28 Mar, 2012 [facility] [address] [id number] [address] [place] [address], [place] [address] 26 Mar, 2012 [facility] [address] [id number] [address] [place] [address], [place] [address] 25 Mar, 2012 [facility] [address] [id number] [address] [place] [address], [place] [address] 19 Mar, 2012 [facility] [address] [id number] [address] [place] [address] 18 Mar, 2012 [facility] [address] [id number] [address] [place] [address], [place] [address] 05 Mar, 2012 [facility] [address] [id number] [address] [place] [address] 28 Feb, 2012 [facility] [address] [id number] [address] [place] [address], [place] [address] 27 Feb, 2012 [facility] [address] [id number] [address] [place] [address], [place] [address] Feb, [facility] [address] [id number] [address] [place] [address], [place] [address] Jan, [facility] [address] [id number] [address] [place] [address], [place] [address] Jan, [facility] [address] [id number] [address] [place] [address], [place] [address] Jan, [facility] [address] [id number] [address] [place] [address], [place] [address] Jan, [facility] [address] [id number] [address] [place] [address], [place] [address] Dec, [facility] [address] [id number] [address] [place] [address], [place] [address] November, [facility] [address] [id number] [address] [place] [address], [place] [address] November, [facility] [address] [id number] [address] [place] [address], [place] [address] November, [facility] [address] [id number] [address] [place] [address], [place] [address] November, [facility] [address] [id number] [address] [place] [address], [place] [address] November, [facility] [address] [id number] [address] [place] [address], [place] [address] November, [facility] [address] [id number] [address] [place] [address], [place] [address] Oct, [facility] [address] [id number] [address] [place] [address], [place] [address] Oct, [facility] [address] [id number] [address] [place] [address], [place] [address] Sep, [facility] [address] [id number] [address] [place] [address], [place] [address] Sep, [facility] [address] [id number] [address] [place] [address], [place] [address] Sep, [facility] [address] [id number] [address] [place] [address], [place] [address] Aug, [facility] [address] [id number] [address] [place] [address], [place] [address] Aug, [facility] [address] [id number] [address] [place] [address], [place] [address] Aug, [facility] [address] [id number] [address] [place] [address], [place] [address] Aug, [facility] [address] [id number] [address] [place] [address], [place] [address] Aug, [facility] [address] [id number] [address] [place] [address], [place] [address] Aug, [facility] [address] [id number] [address] [place] [address], [place] [address] Jul, [facility] [address] [id number] [address] [place] [address], [place] [address] Jul, [facility] [address] [id number] [address] [place] [address], [place] [address] Jul, [facility] [address] [id number] [address] [place] [address], [place] [address] Jul, [facility] [address] [id number] [address] [place] [address], [place] [address] Jul, [facility] [address] [id number] [address] [place] [address], [place] [address] Jul, [facility] [address] [id number] [address] [place] [address], [place] [address] Jul, [facility] [address] [id number] [address] [place] [address], [place] [address] Jul, [facility] [address] [id number] [address] [place] [address], [place] [address] 10 Jul, 2011 [facility] [address] [id number] [address] [place] [address], [place] [address] Jul, [facility] [address] [id number] [address] [place] [address], [place] [address] Jun, [facility] [address] [id number] [address] [place] [address], [place] [address] Jun, [facility] [address] [id number] [address] [place] [address], [place] [address] Jun, [facility] [address] [id number] [address] [place] [address], [place] [address] Jun, [facility] [address] [id number] [address] [place] [address], [place] [address] May, [facility] [address] [id number] [address] [place] [address], [place] [address] May, [facility] [place] [address] [id number] [address] [place] [address], [place] [address] May, [facility] [address] [id number] [address] [place] [address], [place] [address] May, [facility] [address] [id number] [address] [place] [address], [place] [address] Apr, [facility] [address] [id number] [address] [place] [address], [place] [address] Apr, [facility] [address] [id number] [address] [place] [address], [place] [address] November, [facility] [address] [id number] [address] [place] [address], [place] [address] 18 Oct, 2010 [facility] [address] [id number] [address] [place] [address], [place] [address] Aug, [facility] [address] [id number] [address] [place] [address], [place] [address] Jun, [facility] [place] [address] [id number] [address] [place] [address], [place] [address] 28 Jun, 2010 [facility] [address] [id number] [address] [place] [address], [place] [address] 27 Jun, 2010 [facility] [address] [id number] [address] [place] [address], [place] [address] 03 Jun, 2010 [facility] [address] [id number] [address] [place] [address], [place] [address] 29 May, 2010 [facility] [address] [id number] [address] [place] [address], [place] [address] 27 Apr, 2010 [facility] [address] [id number] [address] [place] [address], [place] [address] 13 Oct, 2009 [facility] [address] [id number] [address] [place] [address], [place] [address] 13 Aug, 2009 [facility] [address] [id number] [address] [place] [address], [place] [address] 20 Jul, 2009 [facility] [address] [id number] [address] [place] [address], [place] [address] 22 Jun, 2009 [facility] [address] [id number] [address] [place] [address], [place] [address] 16 Jun, 2009 [facility] [address] [id number] [address] [place] [address], [place] [address] 14 Jun, 2009 [facility] [address] [id number] [address] [place] [address] 14 Jun, 2009 [facility] [address] [id number] [address] [place] [address], [place] [address] 09 May, 2009 [facility] [address] [id number] [address] [place] [address], [place] [address] 20 Apr, 2009 [facility] [address] [id number] [address] [place] [address], [place] [address] 15 Mar, 2009 [facility] [address] [id number] [address] [place] [address] 14 Mar, 2009 [facility] [address] [facility] [id number] [address] [place] [address] 11 Dec, 2008 IMMUNIZATIONS No Known Immunizations SOCIAL HISTORY Never Assessed REASON FOR VISIT medication PLAN OF CARE VITAL SIGNS MEDICATIONS Unknown [...]
--- OUTSIDE RECORDS SUMMARY | 2019-09-01 05:35 | XMS REPORT ---
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 Info Not Available Non Drug Allergy Problems Problem Type Condition ICD-9 Code Onset [...] 356.9 Active Problem Cervicalgia 723.1 Active Assessment Schizoaffective disorder 295.70 Act ariella Problem Bipolar I disorder, most [...] Instructions Start Date End Date Status Dosage Sumatriptan Succinate [facility] 45238105094 100 MG TAKE ONE TABLET BY MOUTH ONCE DAILY NEEDED MAY REPEAT IN 2 HOURS IF HEADACHE RECURS [place]mlodipine Besylate [place] 18544502457 5 MG TAKE ONE TABLET BY MOUTH DAILY Pantoprazole Sodium [facility] 48756955127 40 MG TAKE ONE TABLET BY MOUTH DAILY conjugated estrogens ND 0 0.625 mg/gram November 22, 2012 1 g by Vaginal route 1 time per day use on external genitalia daily for 2 weeks then 3 times a week Albuterol Sulfate [facility] [address]-16 (2.5 MG/3ML) 0 .083% Inhalation 4 times a day 3 ml Amitriptyline HCl [facility] [address]-12 25 MG TAKE ONE TABLET BY MOUTH AT BEDTIME Cymbalta [facility] [address]-98 60 MG TAKE ONE CAPSULE BY MOUTH DAILY Loratadine [facility] 47015999870 10 MG TAKE ONE TABLET BY MOUTH AT BEDTIME FOR ALLERGIES Meloxicam [facility] 24913629119 15 MG TAKE ONE T ABLET BY MOUTH DAILY NEEDED Protonix [facility] [address]-58 40 MG Orally Once a day 1 tablet Abilify [facility] [address]-68 5 MG Orally Once a day September 12, 2014 0.5 tablet by Oral route 1 time per day Clonazepam [facility] [address]-80 0.5 MG TAKE O NE TO TWO TABLETS BY MOUTH ONCE OR TWICE DAILY NEEDED FOR ANXIETY. tramadol [facility] 0 50 mg October 04, 2014 1 Tablet by Oral route 3 times per day PRN Metformin HCl [facility] 25806611199 500 MG Orally Twice a day 2 tablet with meals Lancets ND 0 Mar 28, 2013 2 times pe r day Symbicort [facility] [address]-74 160-4.5 MCG/ACT Inhalation Twice a day 2 puffs Procedures Procedure Coding System Code Date Office Visit, Est Pt., Level 3 CPT-4 21384 A 2014 Vital Signs Date/Time: Mar 09, 2015 Temperature 98.0 F Weight 202.2 lbs Height 65 in BMI 33.64 Index Blood Pressure Diastolic 80 mmHg Blood Pressure Systolic 130 mmHg Cardiac Monitoring Heart Rate 80 bpm Results No Known Results Summary Purpose eClinicalWorks Submission
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
--- OUTSIDE RECORDS SUMMARY | 2019-09-01 05:36 | XMS REPORT ---
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 [address] [id number] [address] [place] [address], [place] [address] Apr, [facility] [address] [id number] [address] [place] [address], [place] [address] Mar, 2013 [facility] [address] [id number] [address] [place] [address], [place] [address] Mar, 2013 [facility] [address] [id number] [address] [place] [address], [place] [address] Mar, 2013 [facility] [address] [id number] [address] [place] [address], [place] [address] Mar, 2013 [facility] [address] [id number] [address] [place] [address], [place] [address] 10 Mar, 2013 [facility] [address] [id number] [address] [place] [address], [place] [address] 10 Mar, 2013 [facility] [address] [id number] [address] [place] [address], [place] [address] Mar, 2013 [facility] [address] [id number] [address] [place] [address] 04 Mar, 2013 [facility] [address] [id number] [address] [place] [address], [place] [address] Mar, 2013 [facility] [address] [id number] [address] [place] [address], [place] [address] Mar, 2013 [facility] [address] [id number] [address] [place] [address], [place] [address] Mar, 2013 [facility] [address] [id number] [address] [place] [address] Mar, [facility] [address] [id number] [address] [place] [address], [place] [address] Feb, [facility] [address] [id number] [address] [place] [address], [place] [address] Feb, [facility] [address] [id number] [address] [place] [address], [place] [address] Jan, [facility] [address] [id number] [address] [place] [address], [place] [address] Jan, [facility] [address] [id number] [address] [place] [address], [place] [address] Jan, [facility] [address] [id number] [address] [place] [address], [place] [address] Jan, [facility] [address] [id number] [address] [place] [address], [place] [address] Dec, [facility] [address] [id number] [address] [place] [address], [place] [address] Dec, [facility] [address] [id number] [address] [place] [address], [place] [address] Dec, [facility] [address] [id number] [address] [place] [address], [place] [address] Dec, [facility] [address] [id number] [address] [place] [address], [place] [address] Dec, [facility] [address] [id number] [address] [place] [address], [place] [address] Dec, [facility] [address] [id number] [address] [place] [address], [place] [address] November, [facility] [address] [id number] [address] [place] [address], [place] [address] November, [facility] [address] [id number] [address] [place] [address], [place] [address] November, [facility] [address] [id number] [address] [place] [address], [place] [address] November, [facility] [address] [id number] [address] [place] [address], [place] [address] November, [facility] [address] [id number] [address] [place] [address], [place] [address] November, [facility] [address] [place] [id number] November, [facility] [address] [id number] [address] [place] [address], [place] [address] November, [facility] [address] [id number] [address] [place] [address], [place] [address] November, [facility] [address] [id number] [address] [place] [address], [place] [address] November, [facility] [address] [id number] [address] [place] [address], [place] [address] November, [facility] [address] [id number] [address] [place] [address], [place] [address] November, [facility] [address] [id number] [address] [place] [address], [place] [address] Oct, [facility] [address] [id number] [address] [place] [address], [place] [address] Oct, [facility] [address] [id number] [address] [place] [address], [place] [address] Oct, [facility] [address] [id number] [address] [place] [address], [place] [address] Oct, [facility] [address] [id number] [address] [place] [address], [place] [address] Oct, [facility] [address] [id number] [address] [place] [address], [place] [address] Oct, [facility] [address] [id number] [address] [place] [address], [place] [address] Oct, [facility] [address] [id number] [facility] [place] [address] Oct, [facility] [address] [id number] [address] [place] [address], [place] [address] Oct, [facility] [address] [id number] [address] [place] [address], [place] [address] Oct, [facility] [address] [id number] [address] [place] [address], [place] [address] Oct, [facility] [address] [id number] [address] [place] [address], [place] [address] Oct, [facility] [address] [id number] [address] [place] [address], [place] [address] Oct, [facility] [address] [id number] [address] [place] [address], [place] [address] Oct, [facility] [address] [id number] [address] [place] [address], [place] [address] Oct, [facility] [address] [id number] [address] [place] [address], [place] [address] Sep, [facility] [address] [id number] [address] [place] [address], [place] [address] Sep, [facility] [address] [id number] [address] [place] [address], [place] [address] Sep, [facility] [address] [id number] [address] [place] [address], [place] [address] Sep, [facility] [address] [id number] [address] [place] [address], [place] [address] Aug, [facility] [address] [id number] [address] [place] [address], [place] [address] Aug, [facility] [address] [id number] [address] [place] [address], [place] [address] Aug, [facility] [address] [id number] [address] [place] [address], [place] [address] Aug, [facility] [address] [id number] [address] [place] [address], [place] [address] Jul, [facility] [address] [id number] [address] [place] [address], [place] [address] Jul, [facility] [address] [id number] [address] [place] [address], [place] [address] Jul, [facility] [address] [id number] [address] [place] [address], [place] [address] Jul, [facility] [address] [id number] [address] [place] [address], [place] [address] Jul, [facility] [address] [id number] [address] [place] [address], [place] [address] Jul, [facility] [address] [id number] [address] [place] [address], [place] [address] Jul, [facility] [address] [id number] [address] [place] [address], [place] [address] Jul, [facility] [address] [id number] [address] [place] [address], [place] [address] Jul, [facility] [address] [id number] [address] [place] [address], [place] [address] Jul, [facility] [address] [id number] [address] [place] [address], [place] [address] Jul, [facility] [address] [id number] [address] [place] [address], [place] [address] Jul, [facility] [address] [id number] [address] [place] [address], [place] [address] Jul, [facility] [address] [id number] [address] [place] [address], [place] [address] Jul, [facility] [address] [id number] [address] [place] [address], [place] [address] Jun, [facility] [address] [id number] [address] [place] [address], [place] [address] Jun, [facility] [address] [id number] [address] [place] [address], [place] [address] Jun, [facility] [address] [id number] [address] [place] [address], [place] [address] Jun, [facility] [address] [id number] [address] [place] [address], [place] [address] May, [facility] [address] [id number] [address] [place] [address], [place] [address] May, [facility] [address] [id number] [address] [place] [address], [place] [address] May, [facility] [address] [id number] [address] [place] [address], [place] [address] May, [facility] [address] [id number] [address] [place] [address], [place] [address] May, [facility] [address] [id number] [address] [place] [address], [place] [address] May, [facility] [address] [id number] [address] [place] [address], [place] [address] May, [facility] [address] [id number] [address] [place] [address], [place] [address] May, [facility] [address] [id number] [address] [place] [address], [place] [address] Apr, [facility] [address] [id number] [address] [place] [address], [place] [address] Apr, [facility] [address] [id number] [address] [place] [address], [place] [address] Apr, [facility] [address] [id number] [address] [place] [address], [place] [address] Apr, [facility] [address] [id number] [address] [place] [address], [place] [address] Apr, [facility] [address] [id number] [address] [place] [address], [place] [address] Apr, [facility] [address] [id number] [address] [place] [address], [place] [address] 30 Mar, 2013 [facility] [address] [id number] [address] [place] [address], [place] [address] 26 Mar, 2013 [facility] [address] [id number] [address] [place] [address], [place] [address] 20 Mar, 2013 [facility] [address] [id number] [address] [place] [address], [place] [address] 17 Mar, 2013 [facility] [address] [id number] [address] [place] [address], [place] [address] 16 Mar, 2013 [facility] [address] [id number] [address] [place] [address], [place] [address] 05 Mar, 2013 [facility] [address] [id number] [address] [place] [address], [place] [address] Feb, [facility] [address] [id number] [address] [place] [address], [place] [address] Feb, [facility] [address] [id number] [address] [place] [address], [place] [address] Feb, [facility] [address] [id number] [address] [place] [address], [place] [address] Feb, [facility] [address] [id number] [address] [place] [address], [place] [address] Jan, [facility] [address] [id number] [address] [place] [address], [place] [address] Jan, [facility] [address] [id number] [address] [place] [address], [place] [address] Jan, [facility] [address] [id number] [address] [place] [address], [place] [address] Jan, [facility] [address] [id number] [address] [place] [address], [place] [address] 16 Jan, 2013 [facility] [address] [id number] [address] [place] [address], [place] [address] Dec, [facility] [address] [id number] [address] [place] [address], [place] [address] Dec, [facility] [address] [id number] [address] [place] [address], [place] [address] Dec, [facility] [address] [id number] [address] [place] [address], [place] [address] November, [facility] [address] [id number] [address] [place] [address], [place] [address] November, [facility] [address] [id number] [address] [place] [address], [place] [address] November, [facility] [address] [id number] [address] [place] [address], [place] [address] Oct, [facility] [address] [id number] [address] [place] [address], [place] [address] Oct, [facility] [address] [id number] [address] [place] [address], [place] [address] Oct, [facility] [address] [id number] [address] [place] [address], [place] [address] Oct, [facility] [address] [id number] [address] [place] [address], [place] [address] 18 Oct, 2012 [facility] [address] [id number] [address] [place] [address], [place] [address] 17 Oct, 2012 [facility] [address] [id number] [address] [place] [address], [place] [address] 15 Oct, 2012 [facility] [address] [id number] [address] [place] [address], [place] [address] 26 Sep, 2012 [facility] [address] [id number] [address] [place] [address], [place] [address] Sep, [facility] [address] [id number] [address] [place] [address], [place] [address] Sep, [facility] [address] [id number] [address] [place] [address], [place] [address] Sep, [facility] [address] [id number] [address] [place] [address], [place] [address] Aug, [facility] [address] [id number] [address] [place] [address], [place] [address] Aug, [facility] [address] [id number] [address] [place] [address], [place] [address] Aug, [facility] [address] [id number] [address] [place] [address], [place] [address] Aug, [facility] [address] [id number] [address] [place] [address], [place] [address] Aug, [facility] [address] [id number] [address] [place] [address], [place] [address] Aug, [facility] [address] [id number] [address] [place] [address], [place] [address] Jul, [facility] [address] [id number] [address] [place] [address], [place] [address] Jul, [facility] [address] [id number] [address] [place] [address], [place] [address] Jul, [facility] [address] [id number] [address] [place] [address], [place] [address] Jul, [facility] [address] [id number] [address] [place] [address], [place] [address] Jul, [facility] [address] [id number] [address] [place] [address], [place] [address] Jul, [facility] [address] [id number] [address] [place] [address], [place] [address] Jun, [facility] [address] [id number] [address] [place] [address], [place] [address] Jun, [facility] [address] [id number] [address] [place] [address], [place] [address] Jun, [facility] [address] [id number] [address] [place] [address], [place] [address] Jun, [facility] [address] [id number] [address] [place] [address], [place] [address] Jun, [facility] [address] [id number] [address] [place] [address], [place] [address] Jun, [facility] [address] [id number] [address] [place] [address], [place] [address] May, [facility] [address] [id number] [address] [place] [address], [place] [address] May, [facility] [address] [id number] [address] [place] [address], [place] [address] May, [facility] [address] [id number] [address] [place] [address], [place] [address] May, [facility] [address] [id number] [address] [place] [address], [place] [address] May, [facility] [address] [id number] [address] [place] [address], [place] [address] May, [facility] [address] [id number] [address] [place] [address], [place] [address] May, [facility] [address] [id number] [address] [place] [address], [place] [address] May, [facility] [address] [id number] [address] [place] [address], [place] [address] May, [facility] [address] [id number] [address] [place] [address], [place] [address] May, [facility] [address] [id number] [address] [place] [address], [place] [address] Apr, [facility] [address] [id number] [address] [place] [address], [place] [address] 31 Apr, 2012 [facility] [address] [id number] [address] [place] [address], [place] [address] 23 Apr, 2012 [facility] [address] [id number] [address] [place] [address], [place] [address] 23 Apr, 2012 [facility] [address] [id number] [address] [place] [address], [place] [address] 16 Apr, 2012 [facility] [address] [id number] [address] [place] [address], [place] [address] 16 Apr, 2012 [facility] [address] [id number] [address] [place] [address], [place] [address] 15 Apr, 2012 [facility] [address] [id number] [address] [place] [address], [place] [address] 15 Apr, 2012 [facility] [address] [id number] [address] [place] [address], [place] [address] 05 Apr, 2012 [facility] [address] [id number] [address] [place] [address], [place] [address] 28 Mar, 2012 [facility] [address] [id number] [address] [place] [address], [place] [address] 26 Mar, 2012 [facility] [address] [id number] [address] [place] [address] [address] 25 Sep2011 [facility] [address] [id number] [address] [place] [address], [place] [address] 19 Sep, 2011 [facility] [address] [id number] [address] [place] [address], [place] [address] 18 Sep2011 [facility] [address] [id number] [address] [place] [address], [place] [address] 05 Mar, 2012 [facility] [address] [id number] [address] [place] [address], [place] [address] 28 Feb, 2012 [facility] [address] [id number] [address] [place] [address], [place] [address] Feb, [facility] [address] [id number] [address] [place] [address], [place] [address] Feb, [facility] [address] [id number] [address] [place] [address], [place] [address] Jan, [facility] [address] [id number] [address] [place] [address], [place] [address] Jan, [facility] [address] [id number] [address] [place] [address], [place] [address] Jan, [facility] [address] [id number] [address] [place] [address], [place] [address] Jan, [facility] [address] [id number] [address] [place] [address], [place] [address] Dec, [facility] [address] [id number] [address] [place] [address], [place] [address] November, [facility] [address] [id number] [address] [place] [address], [place] [address] November, [facility] [address] [id number] [address] [place] [address], [place] [address] November, [facility] [address] [id number] [address] [place] [address], [place] [address] November, [facility] [address] [id number] [address] [place] [address], [place] [address] November, [facility] [address] [id number] [address] [place] [address], [place] [address] November, [facility] [address] [id number] [address] [place] [address], [place] [address] Oct, [facility] [address] [id number] [address] [place] [address], [place] [address] Oct, [facility] [address] [id number] [address] [place] [address], [place] [address] Sep, [facility] [address] [id number] [address] [place] [address], [place] [address] Sep, [facility] [address] [id number] [address] [place] [address], [place] [address] Sep, [facility] [address] [id number] [address] [place] [address], [place] [address] Aug, [facility] [address] [id number] [address] [place] [address], [place] [address] Aug, [facility] [address] [id number] [address] [place] [address], [place] [address] Aug, [facility] [address] [id number] [address] [place] [address], [place] [address] Aug, [facility] [address] [id number] [address] [place] [address], [place] [address] Aug, [facility] [address] [id number] [address] [place] [address], [place] [address] Aug, [facility] [address] [id number] [address] [place] [address], [place] [address] Jul, [facility] [address] [id number] [address] [place] [address], [place] [address] Jul, [facility] [address] [id number] [address] [place] [address], [place] [address] Jul, [facility] [address] [id number] [address] [place] [address], [place] [address] Jul, [facility] [address] [id number] [address] [place] [address], [place] [address] Jul, [facility] [address] [id number] [address] [place] [address], [place] [address] Jul, [facility] [address] [id number] [address] [place] [address], [place] [address] Jul, [facility] [address] [id number] [address] [place] [address] [address] Jul, [facility] [address] [id number] [address] [place] [address], [place] [address] Jul, [facility] [address] [id number] [address] [place] [address], [place] [address] Jul, [facility] [address] [id number] [address] [place] [address], [place] [address] Jun, [facility] [address] [id number] [address] [place] [address], [place] [address] Jun, [facility] [address] [id number] [address] [place] [address], [place] [address] Jun, [facility] [address] [id number] [address] [place] [address], [place] [address] Jun, [facility] [address] [id number] [address] [place] [address], [place] [address] May, [facility] [address] [id number] [address] [place] [address], [place] [address] May, [facility] [address] [id number] [address] [place] [address], [place] [address] May, [facility] [address] [id number] [address] [place] [address], [place] [address] May, [facility] [address] [id number] [address] [place] [address], [place] [address] Apr, [facility] [address] [id number] [address] [place] [address] Apr, [facility] [address] [id number] [address] [place] [address], [place] [address] November, [facility] [address] [id number] [address] [place] [address], [place] [address] Oct, [facility] [address] [id number] [address] [place] [address], [place] [address] Aug, [facility] [address] [id number] [address] [place] [address], [place] [address] 28 Jun, 2010 [facility] [address] [id number] [address] [place] [address], [place] [address] 28 Jun, 2010 [facility] [address] [id number] [address] [place] [address], [place] [address] 27 Jun, 2010 [facility] [address] [id number] [address] [place] [address], [place] [address] 03 Jun, 2010 [facility] [address] [id number] [address] [place] [address], [place] [address] 29 May, 2010 [facility] [address] [id number] [address] [place] [address], [place] [address] 27 Apr, 2010 [facility] [address] [id number] [address] [place] [address], [place] [address] 13 Oct, 2009 [facility] [address] [id number] [address] [place] [address], [place] [address] 13 Aug, 2009 [facility] [address] [id number] [address] [place] [address], [place] [address] 20 Jul, 2009 [facility] [address] [id number] [address] [place] [address], [place] [address] 22 Jun, 2009 [facility] [address] [id number] [address] [place] [address], [place] [address] 16 Jun, 2009 [facility] [address] [id number] [address] [place] [address], [place] [address] 14 Jun, 2009 [facility] [address] [id number] [address] [place] [address], [place] [address] 14 Jun, 2009 [facility] [address] [id number] [address] [place] [address], [place] [address] 09 May, 2009 [facility] [address] [id number] [address] [place] [address], [place] [address] 20 Apr, 2009 [facility] [address] [id number] [address] [place] [address], [place] [address] 15 Mar, 2009 [facility] [address] [facility] [id number] [address] [place] [address] 14 Mar, 2009 [facility] [address] [facility] [id number] [address] [place] [address] 11 Dec, 2008 IMMUNIZATIONS No Known Immunizations [...]
--- OUTSIDE RECORDS SUMMARY | 2019-09-01 05:36 | XMS REPORT ---
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 [address], [place] [address] May, [facility] [address] [id number] [address] [place] [address], [place] [address] May, [facility] [address] [id number] [address] [place] [address], [place] [address] May, [facility] [address] [id number] [address] [place] [address], [place] [address] Apr, [facility] [address] [id number] [address] [place] [address], [place] [address] Apr, [facility] [address] [id number] [address] [place] [address], [place] [address] Apr, [facility] [address] [id number] [address] [place] [address], [place] [address] Apr, [facility] [address] [id number] [address] [place] [address], [place] [address] Apr, [facility] [address] [id number] [address] [place] [address], [place] [address] Apr, [facility] [address] [id number] [address] [place] [address], [place] [address] Apr, [facility] [address] [id number] [address] [place] [address], [place] [address] Apr, [facility] [address] [id number] [address] [place] [address], [place] [address] Apr, [facility] [address] [id number] [address] [place] [address], [place] [address] Apr, [facility] [address] [id number] [address] [place] [address], [place] [address] Mar, 2013 [facility] [address] [id number] [address] [place] [address], [place] [address] Mar, 2013 [facility] [address] [id number] [address] [place] [address], [place] [address] Mar, 2013 [facility] [address] [id number] [address] [place] [address], [place] [address] Mar, 2013 [facility] [address] [id number] [address] [place] [address], [place] [address] 10 Mar, 2013 [facility] [address] [id number] [address] [place] [address], [place] [address] 10 Mar, 2013 [facility] [address] [id number] [address] [place] [address], [place] [address] Mar, 2013 [facility] [address] [id number] [address] [place] [address] 04 Mar, 2013 [facility] [address] [id number] [address] [place] [address], [place] [address] Mar, 2013 [facility] [address] [id number] [address] [place] [address], [place] [address] Mar, 2013 [facility] [address] [id number] [address] [place] [address], [place] [address] Mar, 2013 [facility] [address] [id number] [address] [place] [address] Mar, [facility] [address] [id number] [address] [place] [address], [place] [address] Feb, [facility] [address] [id number] [address] [place] [address], [place] [address] Feb, [facility] [address] [id number] [address] [place] [address], [place] [address] Jan, [facility] [address] [id number] [address] [place] [address], [place] [address] Jan, [facility] [address] [id number] [address] [place] [address], [place] [address] Jan, [facility] [address] [id number] [address] [place] [address], [place] [address] Jan, [facility] [address] [id number] [address] [place] [address], [place] [address] Dec, [facility] [address] [id number] [address] [place] [address], [place] [address] Dec, [facility] [address] [id number] [address] [place] [address], [place] [address] Dec, [facility] [address] [id number] [address] [place] [address], [place] [address] Dec, [facility] [address] [id number] [address] [place] [address], [place] [address] Dec, [facility] [address] [id number] [address] [place] [address], [place] [address] Dec, [facility] [address] [id number] [address] [place] [address], [place] [address] November, [facility] [address] [id number] [address] [place] [address], [place] [address] November, [facility] [address] [id number] [address] [place] [address], [place] [address] November, [facility] [address] [id number] [address] [place] [address], [place] [address] November, [facility] [address] [id number] [address] [place] [address], [place] [address] November, [facility] [address] [id number] [address] [place] [address], [place] [address] November, [facility] [address] [place] [id number] November, [facility] [address] [id number] [address] [place] [address], [place] [address] November, [facility] [address] [id number] [address] [place] [address], [place] [address] November, [facility] [address] [id number] [address] [place] [address], [place] [address] November, [facility] [address] [id number] [address] [place] [address], [place] [address] November, [facility] [address] [id number] [address] [place] [address], [place] [address] November, [facility] [address] [id number] [address] [place] [address], [place] [address] Oct, [facility] [address] [id number] [address] [place] [address], [place] [address] Oct, [facility] [address] [id number] [address] [place] [address], [place] [address] Oct, [facility] [address] [id number] [address] [place] [address], [place] [address] Oct, [facility] [address] [id number] [address] [place] [address], [place] [address] Oct, [facility] [address] [id number] [address] [place] [address], [place] [address] Oct, [facility] [address] [id number] [address] [place] [address], [place] [address] Oct, [facility] [address] [id number] [facility] [place] [address] Oct, [facility] [address] [id number] [address] [place] [address], [place] [address] Oct, [facility] [address] [id number] [address] [place] [address], [place] [address] Oct, [facility] [address] [id number] [address] [place] [address], [place] [address] Oct, [facility] [address] [id number] [address] [place] [address], [place] [address] Oct, [facility] [address] [id number] [address] [place] [address], [place] [address] Oct, [facility] [address] [id number] [address] [place] [address], [place] [address] Oct, [facility] [address] [id number] [address] [place] [address], [place] [address] Oct, [facility] [address] [id number] [address] [place] [address], [place] [address] Sep, [facility] [address] [id number] [address] [place] [address], [place] [address] Sep, [facility] [address] [id number] [address] [place] [address], [place] [address] Sep, [facility] [address] [id number] [address] [place] [address], [place] [address] Sep, [facility] [address] [id number] [address] [place] [address], [place] [address] Aug, [facility] [address] [id number] [address] [place] [address], [place] [address] Aug, [facility] [address] [id number] [address] [place] [address], [place] [address] Aug, [facility] [address] [id number] [address] [place] [address], [place] [address] Aug, [facility] [address] [id number] [address] [place] [address], [place] [address] Jul, [facility] [address] [id number] [address] [place] [address], [place] [address] Jul, [facility] [address] [id number] [address] [place] [address], [place] [address] Jul, [facility] [address] [id number] [address] [place] [address], [place] [address] Jul, [facility] [address] [id number] [address] [place] [address], [place] [address] Jul, [facility] [address] [id number] [address] [place] [address], [place] [address] Jul, [facility] [address] [id number] [address] [place] [address], [place] [address] Jul, [facility] [address] [id number] [address] [place] [address], [place] [address] Jul, [facility] [address] [id number] [address] [place] [address], [place] [address] Jul, [facility] [address] [id number] [address] [place] [address], [place] [address] Jul, [facility] [address] [id number] [address] [place] [address], [place] [address] Jul, [facility] [address] [id number] [address] [place] [address], [place] [address] Jul, [facility] [address] [id number] [address] [place] [address], [place] [address] Jul, [facility] [address] [id number] [address] [place] [address], [place] [address] Jul, [facility] [address] [id number] [address] [place] [address], [place] [address] Jun, [facility] [address] [id number] [address] [place] [address], [place] [address] Jun, [facility] [address] [id number] [address] [place] [address], [place] [address] Jun, [facility] [address] [id number] [address] [place] [address], [place] [address] Jun, [facility] [address] [id number] [address] [place] [address], [place] [address] May, [facility] [address] [id number] [address] [place] [address], [place] [address] May, [facility] [address] [id number] [address] [place] [address], [place] [address] May, [facility] [address] [id number] [address] [place] [address], [place] [address] May, [facility] [address] [id number] [address] [place] [address], [place] [address] May, [facility] [address] [id number] [address] [place] [address], [place] [address] May, [facility] [address] [id number] [address] [place] [address], [place] [address] May, [facility] [address] [id number] [address] [place] [address], [place] [address] May, [facility] [address] [id number] [address] [place] [address], [place] [address] Apr, [facility] [address] [id number] [address] [place] [address], [place] [address] Apr, [facility] [address] [id number] [address] [place] [address], [place] [address] Apr, [facility] [address] [id number] [address] [place] [address], [place] [address] Apr, [facility] [address] [id number] [address] [place] [address], [place] [address] Apr, [facility] [address] [id number] [address] [place] [address], [place] [address] Apr, [facility] [address] [id number] [address] [place] [address], [place] [address] 30 Mar, 2013 [facility] [address] [id number] [address] [place] [address], [place] [address] 26 Mar, 2013 [facility] [address] [id number] [address] [place] [address], [place] [address] 20 Mar, 2013 [facility] [address] [id number] [address] [place] [address], [place] [address] 17 Mar, 2013 [facility] [address] [id number] [address] [place] [address], [place] [address] 16 Mar, 2013 [facility] [address] [id number] [address] [place] [address], [place] [address] 05 Mar, 2013 [facility] [address] [id number] [address] [place] [address], [place] [address] Feb, [facility] [address] [id number] [address] [place] [address], [place] [address] Feb, [facility] [address] [id number] [address] [place] [address], [place] [address] Feb, [facility] [address] [id number] [address] [place] [address], [place] [address] Feb, [facility] [address] [id number] [address] [place] [address], [place] [address] Jan, [facility] [address] [id number] [address] [place] [address], [place] [address] Jan, [facility] [address] [id number] [address] [place] [address], [place] [address] Jan, [facility] [address] [id number] [address] [place] [address], [place] [address] Jan, [facility] [address] [id number] [address] [place] [address], [place] [address] 16 Jan, 2013 [facility] [address] [id number] [address] [place] [address], [place] [address] Dec, [facility] [address] [id number] [address] [place] [address], [place] [address] Dec, [facility] [address] [id number] [address] [place] [address], [place] [address] Dec, [facility] [address] [id number] [address] [place] [address], [place] [address] November, [facility] [address] [id number] [address] [place] [address], [place] [address] November, [facility] [address] [id number] [address] [place] [address], [place] [address] November, [facility] [address] [id number] [address] [place] [address], [place] [address] Oct, [facility] [address] [id number] [address] [place] [address], [place] [address] Oct, [facility] [address] [id number] [address] [place] [address], [place] [address] Oct, [facility] [address] [id number] [address] [place] [address], [place] [address] Oct, [facility] [address] [id number] [address] [place] [address], [place] [address] 18 Oct, 2012 [facility] [address] [id number] [address] [place] [address], [place] [address] 17 Oct, 2012 [facility] [address] [id number] [address] [place] [address], [place] [address] 15 Oct, 2012 [facility] [address] [id number] [address] [place] [address], [place] [address] 26 Sep, 2012 [facility] [address] [id number] [address] [place] [address], [place] [address] Sep, [facility] [address] [id number] [address] [place] [address], [place] [address] Sep, [facility] [address] [id number] [address] [place] [address], [place] [address] Sep, [facility] [address] [id number] [address] [place] [address], [place] [address] Aug, [facility] [address] [id number] [address] [place] [address], [place] [address] Aug, [facility] [address] [id number] [address] [place] [address], [place] [address] Aug, [facility] [address] [id number] [address] [place] [address], [place] [address] Aug, [facility] [address] [id number] [address] [place] [address], [place] [address] Aug, [facility] [address] [id number] [address] [place] [address], [place] [address] Aug, [facility] [address] [id number] [address] [place] [address], [place] [address] Jul, [facility] [address] [id number] [address] [place] [address], [place] [address] Jul, [facility] [address] [id number] [address] [place] [address], [place] [address] Jul, [facility] [address] [id number] [address] [place] [address], [place] [address] Jul, [facility] [address] [id number] [address] [place] [address], [place] [address] Jul, [facility] [address] [id number] [address] [place] [address], [place] [address] Jul, [facility] [address] [id number] [address] [place] [address], [place] [address] Jun, [facility] [address] [id number] [address] [place] [address], [place] [address] Jun, [facility] [address] [id number] [address] [place] [address], [place] [address] Jun, [facility] [address] [id number] [address] [place] [address], [place] [address] Jun, [facility] [address] [id number] [address] [place] [address], [place] [address] Jun, [facility] [address] [id number] [address] [place] [address], [place] [address] Jun, [facility] [address] [id number] [address] [place] [address], [place] [address] May, [facility] [address] [id number] [address] [place] [address], [place] [address] May, [facility] [address] [id number] [address] [place] [address], [place] [address] May, [facility] [address] [id number] [address] [place] [address], [place] [address] May, [facility] [address] [id number] [address] [place] [address], [place] [address] May, [facility] [address] [id number] [address] [place] [address], [place] [address] May, [facility] [address] [id number] [address] [place] [address], [place] [address] May, [facility] [address] [id number] [address] [place] [address], [place] [address] May, [facility] [address] [id number] [address] [place] [address], [place] [address] May, [facility] [address] [id number] [address] [place] [address], [place] [address] May, [facility] [address] [id number] [address] [place] [address], [place] [address] Apr, [facility] [address] [id number] [address] [place] [address], [place] [address] 31 Apr, 2012 [facility] [address] [id number] [address] [place] [address], [place] [address] 23 Apr, 2012 [facility] [address] [id number] [address] [place] [address], [place] [address] 23 Apr, 2012 [facility] [address] [id number] [address] [place] [address], [place] [address] 16 Apr, 2012 [facility] [address] [id number] [address] [place] [address], [place] [address] 16 Apr, 2012 [facility] [address] [id number] [address] [place] [address], [place] [address] 15 Apr, 2012 [facility] [address] [id number] [address] [place] [address], [place] [address] 15 Apr, 2012 [facility] [address] [id number] [address] [place] [address], [place] [address] 05 Apr, 2012 [facility] [address] [id number] [address] [place] [address], [place] [address] 28 Mar, 2012 [facility] [address] [id number] [address] [place] [address], [place] [address] 26 Mar, 2012 [facility] [address] [id number] [address] [place] [address], [place] [address] 25 Sep2011 [facility] [address] [id number] [address] [place] [address], [place] [address] 19 Sep, 2011 [facility] [address] [id number] [address] [place] [address], [place] [address] 18 Sep2011 [facility] [address] [id number] [address] [place] [address], [place] [address] 05 Mar, 2012 [facility] [address] [id number] [address] [place] [address], [place] [address] 28 Feb, 2012 [facility] [address] [id number] [address] [place] [address], [place] [address] Feb, [facility] [address] [id number] [address] [place] [address], [place] [address] Feb, [facility] [address] [id number] [address] [place] [address], [place] [address] Jan, [facility] [address] [id number] [address] [place] [address], [place] [address] Jan, [facility] [address] [id number] [address] [place] [address], [place] [address] Jan, [facility] [address] [id number] [address] [place] [address], [place] [address] Jan, [facility] [address] [id number] [address] [place] [address], [place] [address] Dec, [facility] [address] [id number] [address] [place] [address], [place] [address] November, [facility] [address] [id number] [address] [place] [address], [place] [address] November, [facility] [address] [id number] [address] [place] [address], [place] [address] November, [facility] [address] [id number] [address] [place] [address], [place] [address] November, [facility] [address] [id number] [address] [place] [address], [place] [address] November, [facility] [address] [id number] [address] [place] [address], [place] [address] November, [facility] [address] [id number] [address] [place] [address], [place] [address] Oct, [facility] [address] [id number] [address] [place] [address], [place] [address] Oct, [facility] [address] [id number] [address] [place] [address], [place] [address] Sep, [facility] [address] [id number] [address] [place] [address], [place] [address] Sep, [facility] [address] [id number] [address] [place] [address], [place] [address] Sep, [facility] [address] [id number] [address] [place] [address], [place] [address] Aug, [facility] [address] [id number] [address] [place] [address], [place] [address] Aug, [facility] [address] [id number] [address] [place] [address], [place] [address] Aug, [facility] [address] [id number] [address] [place] [address], [place] [address] Aug, [facility] [address] [id number] [address] [place] [address], [place] [address] Aug, [facility] [address] [id number] [address] [place] [address], [place] [address] Aug, [facility] [address] [id number] [address] [place] [address], [place] [address] Jul, [facility] [address] [id number] [address] [place] [address], [place] [address] Jul, [facility] [address] [id number] [address] [place] [address], [place] [address] Jul, [facility] [address] [id number] [address] [place] [address], [place] [address] Jul, [facility] [address] [id number] [address] [place] [address], [place] [address] Jul, [facility] [address] [id number] [address] [place] [address], [place] [address] Jul, [facility] [address] [id number] [address] [place] [address], [place] [address] Jul, [facility] [address] [id number] [address] [place] [address] [address] Jul, [facility] [address] [id number] [address] [place] [address], [place] [address] Jul, [facility] [address] [id number] [address] [place] [address], [place] [address] Jul, [facility] [address] [id number] [address] [place] [address], [place] [address] Jun, [facility] [address] [id number] [address] [place] [address], [place] [address] Jun, [facility] [address] [id number] [address] [place] [address], [place] [address] Jun, [facility] [address] [id number] [address] [place] [address], [place] [address] Jun, [facility] [address] [id number] [address] [place] [address], [place] [address] May, [facility] [address] [id number] [address] [place] [address], [place] [address] May, [facility] [address] [id number] [address] [place] [address], [place] [address] May, [facility] [address] [id number] [address] [place] [address], [place] [address] May, [facility] [address] [id number] [address] [place] [address], [place] [address] Apr, [facility] [address] [id number] [address] [place] [address] Apr, [facility] [address] [id number] [address] [place] [address], [place] [address] November, [facility] [address] [id number] [address] [place] [address], [place] [address] Oct, [facility] [address] [id number] [address] [place] [address], [place] [address] Aug, [facility] [address] [id number] [address] [place] [address], [place] [address] 28 Jun, 2010 [facility] [address] [id number] [address] [place] [address], [place] [address] 28 Jun, 2010 [facility] [address] [id number] [address] [place] [address], [place] [address] 27 Jun, 2010 [facility] [address] [id number] [address] [place] [address], [place] [address] 03 Jun, 2010 [facility] [address] [id number] [address] [place] [address], [place] [address] 29 May, 2010 [facility] [address] [id number] [address] [place] [address], [place] [address] 27 Apr, 2010 [facility] [address] [id number] [address] [place] [address], [place] [address] 13 Oct, 2009 [facility] [address] [id number] [address] [place] [address], [place] [address] 13 Aug, 2009 [facility] [address] [id number] [address] [place] [address], [place] [address] 20 Jul, 2009 [facility] [address] [id number] [address] [place] [address], [place] [address] 22 Jun, 2009 [facility] [address] [id number] [address] [place] [address], [place] [address] 16 Jun, 2009 [facility] [address] [id number] [address] [place] [address], [place] [address] 14 Jun, 2009 [facility] [address] [id number] [address] [place] [address], [place] [address] 14 Jun, 2009 [facility] [address] [id number] [address] [place] [address], [place] [address] 09 May, 2009 [facility] [address] [id number] [address] [place] [address], [place] [id number] 20 Apr, 2009 [facility] [address] [id number] [address] [place] [address], [place] [id number] 15 Mar, 2009 [facility] [place] [address] [facility] [id number] [address] [place] [id number] 14 Mar, 2009 [facility] [place] [address] [facility] [id number] [address] [place] [phone] 11 Dec, 2008 IMMUNIZATIONS No Known Immunizations SOCIAL HISTORY Never Assessed REASON FOR VISIT c/o abd pain with constipation PLAN OF CARE VITAL SIGNS MEDICATIONS Medication Instructions Dosage Frequency Start Date End Date Duration S tatus Docusate Sodium 100 mg Orally twice a day 1 tablet as needed 12h 24 Jul, 2017 Sep, 30 day(s) Active RESULTS No Results PROCEDURES [...]
--- OUTSIDE RECORDS SUMMARY | 2019-09-01 05:36 | XMS REPORT ---
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 Apr, [facility] [address] [id number] [address] [place] [id number] Apr, [facility] [address] [id number] [address] [place] [id number] Apr, [facility] [address] [id number] [address] [place] [address], [place] [address] Apr, [facility] [address] [id number] [address] [place] [address], [place] [address] Apr, [facility] [address] [id number] [address] [place] [address], [place] [address] 29 Mar, 2013 [facility] [address] [id number] [address] [place] [address], [place] [address] 29 Mar, 2013 [facility] [address] [id number] [address] [place] [address], [place] [address] 29 Mar, 2013 [facility] [address] [id number] [address] [place] [address], [place] [address] 29 Mar, 2013 [facility] [address] [id number] [address] [place] [address], [place] [address] Mar, 2013 [facility] [address] [id number] [address] [place] [address], [place] [address] Mar, 2013 [facility] [address] [id number] [address] [place] [address], [place] [address] Mar, 2013 [facility] [address] [id number] [address] [place] [address], [place] [address] Mar, 2013 [facility] [address] [id number] [address] [place] [address], [place] [address] Mar, 2013 [facility] [address] [id number] [address] [place] [address], [place] [address] Mar, 2013 [facility] [address] [id number] [address] [place] [address], [place] [address] Mar, 2013 [facility] [address] [id number] [address] [place] [address], [place] [address] Mar, 2013 [facility] [address] [id number] [address] [place] [address], [place] [address] Feb, [facility] [address] [id number] [address] [place] [address], [place] [address] Feb, [facility] [address] [id number] [address] [place] [address], [place] [address] Jan, [facility] [address] [id number] [address] [place] [address], [place] [address] Jan, [facility] [address] [id number] [address] [place] [address], [place] [address] Jan, [facility] [address] [id number] [address] [place] [address], [place] [address] Jan, [facility] [address] [id number] [address] [place] [address], [place] [address] Dec, [facility] [address] [id number] [address] [place] [address], [place] [address] Dec, [facility] [address] [id number] [address] [place] [address], [place] [address] Dec, [facility] [address] [id number] [address] [place] [address], [place] [address] Dec, [facility] [address] [id number] [address] [place] [address], [place] [address] Dec, [facility] [address] [id number] [address] [place] [address], [place] [address] Dec, [facility] [address] [id number] [address] [place] [address], [place] [address] November, [facility] [address] [id number] [address] [place] [address], [place] [address] November, [facility] [address] [id number] [address] [place] [address], [place] [address] November, [facility] [address] [id number] [address] [place] [address], [place] [address] November, [facility] [address] [id number] [address] [place] [address], [place] [address] November, [facility] [address] [id number] [address] [place] [address], [place] [address] November, [facility] [address] [place] [id number] November, [facility] [address] [id number] [address] [place] [address], [place] [address] November, [facility] [address] [id number] [address] [place] [address], [place] [address] November, [facility] [address] [id number] [address] [place] [address], [place] [address] November, [facility] [address] [id number] [address] [place] [address], [place] [address] November, [facility] [address] [id number] [address] [place] [address], [place] [address] November, [facility] [address] [id number] [address] [place] [address], [place] [address] Oct, [facility] [address] [id number] [address] [place] [address], [place] [address] Oct, [facility] [address] [id number] [address] [place] [address], [place] [address] Oct, [facility] [address] [id number] [address] [place] [address], [place] [address] Oct, [facility] [address] [id number] [address] [place] [address], [place] [address] Oct, [facility] [address] [id number] [address] [place] [address], [place] [address] Oct, [facility] [address] [id number] [address] [place] [address], [place] [id number] Oct, [facility] [address] [id number] [address] [place] [address], [place] [address] Oct, [facility] [address] [id number] [address] [place] [address], [place] [address] Oct, [facility] [address] [id number] [address] [place] [address], [place] [address] Oct, [facility] [address] [id number] [facility] [place] [address] Oct, [facility] [address] [id number] [address] [place] [address], [place] [address] Oct, [facility] [address] [id number] [address] [place] [address], [place] [address] Oct, [facility] [address] [id number] [address] [place] [address], [place] [address] Oct, [facility] [address] [id number] [address] [place] [address], [place] [address] Oct, [facility] [address] [id number] [address] [place] [address], [place] [address] Sep, [facility] [address] [id number] [address] [place] [address], [place] [address] Sep, [facility] [address] [id number] [address] [place] [address], [place] [address] Sep, [facility] [address] [id number] [address] [place] [address], [place] [address] Sep, [facility] [address] [id number] [address] [place] [address], [place] [address] Aug, [facility] [address] [id number] [address] [place] [address], [place] [address] Aug, [facility] [address] [id number] [address] [place] [address], [place] [id number] Aug, [facility] [address] [id number] [address] [place] [address], [place] [address] Aug, [facility] [address] [id number] [address] [place] [address], [place] [address] Jul, [facility] [address] [id number] [address] [place] [address], [place] [address] Jul, [facility] [address] [id number] [address] [place] [address], [place] [address] Jul, [facility] [address] [id number] [address] [place] [address], [place] [address] Jul, [facility] [address] [id number] [address] [place] [address], [place] [id number] Jul, [facility] [address] [id number] [address] [place] [address], [place] [address] Jul, [facility] [address] [id number] [address] [place] [address], [place] [id number] Jul, [facility] [address] [id number] [address] [place] [address], [place] [address] Jul, [facility] [address] [id number] [address] [place] [address], [place] [address] Jul, [facility] [address] [id number] [address] [place] [address], [place] [address] Jul, [facility] [address] [id number] [address] [place] [address], [place] [address] Jul, [facility] [address] [id number] [address] [place] [address], [place] [address] Jul, [facility] [address] [id number] [address] [place] [address], [place] [address] Jul, [facility] [address] [id number] [address] [place] [address], [place] [id number] Jul, [facility] [address] [id number] [address] [place] [address], [place] [id number] Jun, [facility] [address] [id number] [address] [place] [address], [place] [address] Jun, [facility] [address] [id number] [address] [place] [address], [place] [address] Jun, [facility] [address] [id number] [address] [place] [id number] Jun, [facility] [address] [id number] [address] [place] [address], [place] [address] May, [facility] [address] [id number] [address] [place] [id number] May, [facility] [address] [id number] [address] [place] [address], [place] [address] May, [facility] [address] [id number] [address] [place] [id number] May, [facility] [address] [id number] [address] [place] [address], [place] [address] May, [facility] [address] [id number] [address] [place] [id number] May, [facility] [address] [id number] [address] [place] [id number] May, [facility] [address] [id number] [address] [place] [id number] May, [facility] [address] [id number] [address] [place] [id number] Apr, [facility] [address] [id number] [address] [place] [id number] Apr, [facility] [address] [id number] [address] [place] [id number] Apr, [facility] [address] [id number] [address] [place] [id number] Apr, [facility] [address] [id number] [address] [place] [id number] Apr, [facility] [address] [id number] [address] [place] [id number] Apr, [facility] [address] [id number] [address] [place] [address], [place] [address] Mar, [facility] [address] [id number] [address] [place] [address], [place] [address] 26 Mar, 2013 [facility] [address] [id number] [address] [place] [address], [place] [address] 20 Mar, 2013 [facility] [address] [id number] [address] [place] [address], [place] [address] 17 Mar, 2013 [facility] [address] [id number] [address] [place] [address], [place] [address] 16 Mar, 2013 [facility] [address] [id number] [address] [place] [address], [place] [address] 05 Mar, 2013 [facility] [address] [id number] [address] [place] [address], [place] [address] Feb, [facility] [address] [id number] [address] [place] [address], [place] [address] Feb, [facility] [address] [id number] [address] [place] [address], [place] [address] Feb, [facility] [address] [id number] [address] [place] [address], [place] [address] Feb, [facility] [address] [id number] [address] [place] [address], [place] [address] Jan, [facility] [address] [id number] [address] [place] [address], [place] [address] Jan, [facility] [address] [id number] [address] [place] [address], [place] [address] Jan, [facility] [address] [id number] [address] [place] [address], [place] [address] Jan, [facility] [address] [id number] [address] [place] [address], [place] [address] Jan, [facility] [address] [id number] [address] [place] [address], [place] [address] Dec, [facility] [address] [id number] [address] [place] [address], [place] [address] Dec, [facility] [address] [id number] [address] [place] [address], [place] [address] Dec, [facility] [address] [id number] [address] [place] [address], [place] [address] November, [facility] [address] [id number] [address] [place] [address], [place] [address] November, [facility] [address] [id number] [address] [place] [address], [place] [address] November, [facility] [address] [id number] [address] [place] [address], [place] [address] Oct, [facility] [address] [id number] [address] [place] [address], [place] [address] Oct, [facility] [address] [id number] [address] [place] [address], [place] [address] Oct, [facility] [address] [id number] [address] [place] [address], [place] [address] Oct, [facility] [address] [id number] [address] [place] [address], [place] [address] 18 Oct, 2012 [facility] [address] [id number] [address] [place] [address], [place] [address] Oct, [facility] [address] [id number] [address] [place] [address], [place] [address] Oct, [facility] [address] [id number] [address] [place] [address], [place] [address] Sep, [facility] [address] [id number] [address] [place] [address], [place] [address] Sep, [facility] [address] [id number] [address] [place] [address], [place] [address] Sep, [facility] [address] [id number] [address] [place] [address], [place] [address] Sep, [facility] [address] [id number] [address] [place] [address], [place] [address] Aug, [facility] [address] [id number] [address] [place] [address], [place] [address] Aug, [facility] [address] [id number] [address] [place] [address], [place] [address] Aug, [facility] [address] [id number] [address] [place] [address], [place] [address] Aug, [facility] [address] [id number] [address] [place] [address], [place] [address] 18 Aug, 2012 [facility] [address] [id number] [address] [place] [address], [place] [address] Aug, [facility] [address] [id number] [address] [place] [address], [place] [address] Jul, [facility] [address] [id number] [address] [place] [address], [place] [address] Jul, [facility] [address] [id number] [address] [place] [address], [place] [address] Jul, [facility] [address] [id number] [address] [place] [address], [place] [address] Jul, [facility] [address] [id number] [address] [place] [address], [place] [address] Jul, [facility] [address] [id number] [address] [place] [address], [place] [address] Jul, [facility] [address] [id number] [address] [place] [address], [place] [address] Jun, [facility] [address] [id number] [address] [place] [address], [place] [address] Jun, [facility] [address] [id number] [address] [place] [address], [place] [address] Jun, [facility] [address] [id number] [address] [place] [address], [place] [address] Jun, [facility] [address] [id number] [address] [place] [address], [place] [address] Jun, [facility] [address] [id number] [address] [place] [address], [place] [address] Jun, [facility] [address] [id number] [address] [place] [address], [place] [address] May, [facility] [address] [id number] [address] [place] [address], [place] [address] May, [facility] [address] [id number] [address] [place] [address], [place] [address] May, [facility] [address] [id number] [address] [place] [address], [place] [address] May, [facility] [address] [id number] [address] [place] [address], [place] [address] May, [facility] [address] [id number] [address] [place] [address], [place] [address] May, [facility] [address] [id number] [address] [place] [address], [place] [address] May, [facility] [address] [id number] [address] [place] [address], [place] [address] May, [facility] [address] [id number] [address] [place] [address], [place] [address] May, [facility] [address] [id number] [address] [place] [address] May, [facility] [address] [id number] [address] [place] [address], [place] [address] Apr, [facility] [address] [id number] [address] [place] [address], [place] [address] Apr, [facility] [address] [id number] [address] [place] [address], [place] [address] Apr, [facility] [address] [id number] [address] [place] [id number] 23 Apr, 2012 [facility] [address] [id number] [address] [place] [address], [place] [address] 16 Apr, 2012 [facility] [address] [id number] [address] [place] [address], [place] [address] 16 Apr, 2012 [facility] [address] [id number] [address] [place] [address], [place] [address] 15 Apr, 2012 [facility] [address] [id number] [address] [place] [address], [place] [address] 15 Apr, 2012 [facility] [address] [id number] [address] [place] [address], [place] [address] 05 Apr, 2012 [facility] [address] [id number] [address] [place] [address], [place] [address] 28 Mar, 2012 [facility] [address] [id number] [address] [place] [address], [place] [address] 26 Mar, 2012 [facility] [address] [id number] [address] [place] [address], [place] [address] 25 Mar, 2012 [facility] [address] [id number] [address] [place] [address], [place] [address] 19 Mar, 2012 [facility] [address] [id number] [address] [place] [address], [place] [address] 18 Mar, 2012 [facility] [address] [id number] [address] [place] [address], [place] [address] 05 Mar, 2012 [facility] [address] [id number] [address] [place] [address], [place] [address] 28 Feb, 2012 [facility] [address] [id number] [address] [place] [address], [place] [address] Feb, [facility] [address] [id number] [address] [place] [address], [place] [address] Feb, [facility] [address] [id number] [address] [place] [address], [place] [address] Jan, [facility] [address] [id number] [address] [place] [address], [place] [address] 31 Jan, 2012 [facility] [address] [id number] [address] [place] [address], [place] [address] Jan, [facility] [address] [id number] [address] [place] [address], [place] [address] Jan, [facility] [address] [id number] [address] [place] [address], [place] [address] Dec, [facility] [address] [id number] [address] [place] [address], [place] [address] November, [facility] [address] [id number] [address] [place] [address], [place] [address] November, [facility] [address] [id number] [address] [place] [address], [place] [address] November, [facility] [address] [id number] [address] [place] [address], [place] [address] November, [facility] [address] [id number] [address] [place] [address], [place] [address] November, [facility] [address] [id number] [address] [place] [address], [place] [address] November, [facility] [address] [id number] [address] [place] [address], [place] [address] Oct, [facility] [address] [id number] [address] [place] [address], [place] [address] Oct, [facility] [address] [id number] [address] [place] [address], [place] [address] Sep, [facility] [address] [id number] [address] [place] [address], [place] [address] Sep, [facility] [address] [id number] [address] [place] [address], [place] [address] Sep, [facility] [address] [id number] [address] [place] [address], [place] [address] Aug, [facility] [address] [id number] [address] [place] [address], [place] [address] Aug, [facility] [address] [id number] [address] [place] [address], [place] [address] 14 Aug, 2011 [facility] [address] [id number] [address] [place] [address], [place] [address] Aug, [facility] [address] [id number] [address] [place] [address], [place] [address] Aug, [facility] [address] [id number] [address] [place] [address], [place] [address] Aug, [facility] [address] [id number] [address] [place] [address], [place] [address] Jul, [facility] [address] [id number] [address] [place] [address], [place] [address] Jul, [facility] [address] [id number] [address] [place] [address], [place] [address] Jul, [facility] [address] [id number] [address] [place] [address], [place] [address] Jul, [facility] [address] [id number] [address] [place] [address], [place] [address] Jul, [facility] [address] [id number] [address] [place] [address], [place] [address] Jul, [facility] [address] [id number] [address] [place] [address], [place] [address] Jul, [facility] [address] [id number] [address] [place] [address], [place] [address] Jul, [facility] [address] [id number] [address] [place] [address], [place] [address] Jul, [facility] [address] [id number] [address] [place] [address], [place] [address] Jul, [facility] [address] [id number] [address] [place] [address], [place] [address] 28 Jun, 2011 [facility] [address] [id number] [address] [place] [address], [place] [address] Jun, [facility] [address] [id number] [address] [place] [address], [place] [address] Jun, [facility] [address] [id number] [address] [place] [address], [place] [address] Jun, [facility] [address] [id number] [address] [place] [address], [place] [address] May, [facility] [address] [id number] [address] [place] [address], [place] [address] May, [facility] [address] [id number] [address] [place] [address], [place] [address] May, [facility] [address] [id number] [address] [place] [address], [place] [address] May, [facility] [address] [id number] [address] [place] [address], [place] [address] Apr, [facility] [address] [id number] [address] [place] [address], [place] [address] Apr, [facility] [address] [id number] [address] [place] [address], [place] [address] November, [facility] [address] [id number] [address] [place] [address], [place] [address] Oct, [facility] [address] [id number] [address] [place] [address], [place] [address] Aug, [facility] [address] [id number] [address] [place] [address], [place] [address] Jun, [facility] [address] [id number] [address] [place] [address], [place] [address] Jun, [facility] [address] [id number] [address] [place] [address], [place] [address] 27 Jun, 2010 [facility] [address] [id number] [address] [place] [address] 03 Jun, 2010 [facility] [address] [id number] [address] [place] [id number] 29 May, 2010 [facility] [address] [id number] [address] [place] [id number] 27 Apr, 2010 [facility] [address] [id number] [address] [place] [id number] 13 Oct, 2009 [facility] [address] [id number] [address] [place] [id number] 13 Aug, 2009 [facility] [address] [id number] [address] [place] [id number] 20 Jul, 2009 [facility] [address] [id number] [address] [place] [id number] 22 Jun, 2009 [facility] [address] [id number] [address] [place] [id number] 16 Jun, 2009 [facility] [address] [id number] [address] [place] [id number] 14 Jun, 2009 [facility] [address] [id number] [address] [place] [id number] 14 Jun, 2009 [facility] [address] [id number] [address] [place] [id number] 09 May, 2009 [facility] [address] [id number] [address] [place] [id number] 20 Apr, 2009 [facility] [address] [id number] [address] [place] [id number] 15 Mar, 2009 [facility] [address] [id number] [address] [place] [id number] 14 Mar, 2009 [facility] [address] [id number] [address] [place] [id number] 11 Dec, 2008 IMMUNIZATIONS No Known Immunizations SOCIAL HISTORY Never Assessed REASON FOR VISIT Med request PLAN OF CARE VITAL SIGNS MEDICATIONS Unknown [...]
--- OUTSIDE RECORDS SUMMARY | 2019-09-01 05:36 | XMS REPORT ---
Author Olivia Eason Organization [employer] Address Unknown Phone Unavailable Care Team Providers Care Scaffolder Name Role Phone TYRELL BARILLAS CP Unavailable [...]
--- OUTSIDE RECORDS SUMMARY | 2019-09-01 05:37 | XMS REPORT ---
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 [facility] [address] [id number] [address] [place] [address], [place] [address] Apr, [facility] [address] [id number] [address] [place] [address], [place] [address] Apr, [facility] [address] [id number] [address] [place] [address], [place] [address] Apr, [facility] [address] [id number] [address] [place] [address], [place] [address] Apr, [facility] [address] [id number] [address] [place] [address], [place] [address] 29 Mar, 2013 [facility] [address] [id number] [address] [place] [address], [place] [address] 29 Mar, 2013 [facility] [address] [id number] [address] [place] [address], [place] [address] Mar, 2013 [facility] [address] [id number] [address] [place] [address], [place] [address] 29 Mar, 2013 [facility] [address] [id number] [address] [place] [address], [place] [address] 10 Mar, 2013 [facility] [address] [id number] [address] [place] [address], [place] [address] 10 Mar, 2013 [facility] [address] [id number] [address] [place] [address], [place] [address] Mar, 2013 [facility] [address] [id number] [address] [place] [address], [place] [address] 04 Mar, 2013 [facility] [address] [id number] [address] [place] [address], [place] [address] Mar, 2013 [facility] [address] [id number] [address] [place] [address], [place] [address] Mar, 2013 [facility] [address] [id number] [address] [place] [address], [place] [address] Mar, 2013 [facility] [address] [id number] [address] [place] [address], [place] [address] Mar, [facility] [address] [id number] [address] [place] [address], [place] [address] Feb, [facility] [address] [id number] [address] [place] [address], [place] [address] Feb, [facility] [address] [id number] [address] [place] [address], [place] [address] Jan, [facility] [address] [id number] [address] [place] [address], [place] [address] Jan, [facility] [address] [id number] [address] [place] [address], [place] [address] Jan, [facility] [address] [id number] [address] [place] [address], [place] [address] Jan, [facility] [address] [id number] [address] [place] [address], [place] [address] Dec, [facility] [address] [id number] [address] [place] [address], [place] [address] Dec, [facility] [address] [id number] [address] [place] [address], [place] [address] Dec, [facility] [address] [id number] [address] [place] [address], [place] [address] Dec, [facility] [address] [id number] [address] [place] [address], [place] [address] Dec, [facility] [address] [id number] [address] [place] [address], [place] [address] Dec, [facility] [address] [id number] [address] [place] [address], [place] [address] November, [facility] [address] [id number] [address] [place] [address], [place] [address] November, [facility] [address] [id number] [address] [place] [address], [place] [address] November, [facility] [address] [id number] [address] [place] [address], [place] [address] November, [facility] [address] [id number] [address] [place] [address], [place] [address] November, [facility] [address] [id number] [address] [place] [address], [place] [address] November, [address] [id number] November, [facility] [address] [id number] [address] [place] [address], [place] [address] November, [facility] [address] [id number] [address] [place] [address], [place] [address] November, [facility] [address] [id number] [address] [place] [address], [place] [address] November, [facility] [address] [id number] [address] [place] [address], [place] [address] November, [facility] [address] [id number] [address] [place] [address], [place] [address] November, [facility] [address] [id number] [address] [place] [address], [place] [address] Oct, [facility] [address] [id number] [address] [place] [address], [place] [address] Oct, [facility] [address] [id number] [address] [place] [address], [place] [address] Oct, [facility] [address] [id number] [address] [place] [address], [place] [address] Oct, [facility] [address] [id number] [address] [place] [address], [place] [address] Oct, [facility] [address] [id number] [address] [place] [address], [place] [address] Oct, [facility] [address] [id number] [address] [place] [address], [place] [address] Oct, [facility] [address] [id number] [facility] [place] [address] Oct, [facility] [address] [id number] [facility] [place] [address] Oct, [facility] [address] [id number] [facility] [place] [address] Oct, [facility] [address] [id number] [address] [place] [address], [place] [address] Oct, [facility] [address] [id number] [address] [place] [address], [place] [address] Oct, [facility] [address] [id number] [address] [place] [address], [place] [address] Oct, [facility] [address] [id number] [address] [place] [address], [place] [address] Oct, [facility] [address] [id number] [address] [place] [address], [place] [address] Oct, [facility] [address] [id number] [address] [place] [address], [place] [address] Sep, [facility] [address] [id number] [address] [place] [address], [place] [address] Sep, [facility] [address] [id number] [address] [place] [address], [place] [address] Sep, [facility] [address] [id number] [address] [place] [address], [place] [address] Sep, [facility] [address] [id number] [address] [place] [address], [place] [address] Aug, [facility] [address] [id number] [address] [place] [address], [place] [address] Aug, [facility] [address] [id number] [address] [place] [address], [place] [address] Aug, [facility] [address] [id number] [address] [place] [address], [place] [address] Aug, [facility] [address] [id number] [address] [place] [address], [place] [address] Jul, [facility] [address] [id number] [address] [place] [address], [place] [address] Jul, [facility] [address] [id number] [address] [place] [address], [place] [address] Jul, [facility] [address] [id number] [address] [place] [address], [place] [address] Jul, [facility] [address] [id number] [address] [place] [address], [place] [address] Jul, [facility] [address] [id number] [address] [place] [address], [place] [address] Jul, [facility] [address] [id number] [address] [place] [address], [place] [address] Jul, [facility] [address] [id number] [address] [place] [address], [place] [address] Jul, [facility] [address] [id number] [address] [place] [address], [place] [address] Jul, [facility] [address] [id number] [address] [place] [address], [place] [address] Jul, [facility] [address] [id number] [address] [place] [address], [place] [address] Jul, [facility] [address] [id number] [address] [place] [address], [place] [address] Jul, [facility] [address] [id number] [address] [place] [address], [place] [address] Jul, [facility] [address] [id number] [address] [place] [address], [place] [address] Jul, [facility] [address] [id number] [address] [place] [address], [place] [address] Jun, [facility] [address] [id number] [address] [place] [address], [place] [address] Jun, [facility] [address] [id number] [address] [place] [address], [place] [address] Jun, [facility] [address] [id number] [address] [place] [address], [place] [address] Jun, [facility] [address] [id number] [address] [place] [address], [place] [address] May, [facility] [address] [id number] [address] [place] [address], [place] [address] May, [facility] [address] [id number] [address] [place] [address], [place] [address] May, [facility] [address] [id number] [address] [place] [address], [place] [address] May, [facility] [address] [id number] [address] [place] [address], [place] [address] May, [facility] [address] [id number] [address] [place] [address], [place] [address] May, [facility] [address] [id number] [address] [place] [address], [place] [address] May, [facility] [address] [id number] [address] [place] [address], [place] [address] May, [facility] [address] [id number] [address] [place] [address], [place] [address] Apr, [facility] [address] [id number] [address] [place] [address], [place] [address] Apr, [facility] [address] [id number] [address] [place] [address], [place] [address] Apr, [facility] [address] [id number] [address] [place] [address], [place] [address] Apr, [facility] [address] [id number] [address] [place] [address], [place] [address] Apr, [facility] [address] [id number] [address] [place] [address], [place] [address] Apr, [facility] [address] [id number] [address] [place] [address], [place] [address] 30 Mar, 2013 [facility] [address] [id number] [address] [place] [address], [place] [address] 26 Mar, 2013 [facility] [address] [id number] [address] [place] [address], [place] [address] 20 Mar, 2013 [facility] [address] [id number] [address] [place] [address], [place] [address] 17 Mar, 2013 [facility] [address] [id number] [address] [place] [address], [place] [address] 16 Mar, 2013 [facility] [address] [id number] [address] [place] [address], [place] [address] 05 Mar, 2013 [facility] [address] [id number] [address] [place] [address], [place] [address] Feb, [facility] [address] [id number] [address] [place] [address], [place] [address] Feb, [facility] [address] [id number] [address] [place] [address], [place] [address] Feb, [facility] [address] [id number] [address] [place] [address], [place] [address] Feb, [facility] [address] [id number] [address] [place] [address], [place] [address] Jan, [facility] [address] [id number] [address] [place] [address], [place] [address] Jan, [facility] [address] [id number] [address] [place] [address], [place] [address] Jan, [facility] [address] [id number] [address] [place] [address], [place] [address] Jan, [facility] [address] [id number] [address] [place] [address], [place] [address] 16 Jan, 2013 [facility] [address] [id number] [address] [place] [address], [place] [address] Dec, [facility] [address] [id number] [address] [place] [address], [place] [address] Dec, [facility] [address] [id number] [address] [place] [address], [place] [address] Dec, [facility] [address] [id number] [address] [place] [address], [place] [address] November, [facility] [address] [id number] [address] [place] [address], [place] [address] November, [facility] [address] [id number] [address] [place] [address], [place] [address] November, [facility] [address] [id number] [address] [place] [address], [place] [address] Oct, [facility] [address] [id number] [address] [place] [address], [place] [address] Oct, [facility] [address] [id number] [address] [place] [address], [place] [address] Oct, [facility] [address] [id number] [address] [place] [address], [place] [address] Oct, [facility] [address] [id number] [address] [place] [address], [place] [address] 18 Oct, 2012 [facility] [address] [id number] [address] [place] [address], [place] [address] 17 Oct, 2012 [facility] [address] [id number] [address] [place] [address], [place] [address] 15 Oct, 2012 [facility] [address] [id number] [address] [place] [address], [place] [address] 26 Sep, 2012 [facility] [address] [id number] [address] [place] [address], [place] [address] Sep, [facility] [address] [id number] [address] [place] [address], [place] [address] Sep, [facility] [address] [id number] [address] [place] [address], [place] [address] Sep, [facility] [address] [id number] [address] [place] [address], [place] [address] Aug, [facility] [address] [id number] [address] [place] [address], [place] [address] Aug, [facility] [address] [id number] [address] [place] [address], [place] [address] Aug, [facility] [address] [id number] [address] [place] [address], [place] [address] Aug, [facility] [address] [id number] [address] [place] [address], [place] [address] Aug, [facility] [address] [id number] [address] [place] [address], [place] [address] Aug, [facility] [address] [id number] [address] [place] [address], [place] [address] Jul, [facility] [address] [id number] [address] [place] [address], [place] [address] Jul, [facility] [address] [id number] [address] [place] [address], [place] [address] Jul, [facility] [address] [id number] [address] [place] [address], [place] [address] Jul, [facility] [address] [id number] [address] [place] [address], [place] [address] Jul, [facility] [address] [id number] [address] [place] [address], [place] [address] Jul, [facility] [address] [id number] [address] [place] [address], [place] [address] Jun, [facility] [address] [id number] [address] [place] [address] Jun, [facility] [address] [id number] [address] [place] [address], [place] [address] Jun, [facility] [address] [id number] [address] [place] [address], [place] [address] Jun, [facility] [address] [id number] [address] [place] [address], [place] [address] Jun, [facility] [address] [id number] [address] [place] [address], [place] [address] Jun, [facility] [address] [id number] [address] [place] [address], [place] [address] May, [facility] [address] [id number] [address] [place] [address], [place] [address] May, [facility] [address] [id number] [address] [place] [address], [place] [address] May, [facility] [address] [id number] [address] [place] [address], [place] [address] May, [facility] [address] [id number] [address] [place] [address], [place] [address] May, [facility] [address] [id number] [address] [place] [address], [place] [address] May, [facility] [address] [id number] [address] [place] [address], [place] [address] May, [facility] [address] [id number] [address] [place] [address], [place] [address] May, [facility] [address] [id number] [address] [place] [address], [place] [address] May, [facility] [address] [id number] [address] [place] [address], [place] [address] May, [facility] [address] [id number] [address] [place] [address], [place] [address] Apr, [facility] [address] [id number] [address] [place] [address], [place] [address] 31 Apr, 2012 [facility] [address] [id number] [address] [place] [address], [place] [address] 23 Apr, 2012 [facility] [address] [id number] [address] [place] [address], [place] [address] 23 Apr, 2012 [facility] [address] [id number] [address] [place] [address], [place] [address] 16 Apr, 2012 [facility] [address] [id number] [address] [place] [address], [place] [address] 16 Apr, 2012 [facility] [address] [id number] [address] [place] [address], [place] [address] 15 Apr, 2012 [facility] [address] [id number] [address] [place] [address], [place] [address] 15 Apr, 2012 [facility] [address] [id number] [address] [place] [address], [place] [address] 05 Apr, 2012 [facility] [address] [id number] [address] [place] [address], [place] [address] 28 Mar, 2012 [facility] [address] [id number] [address] [place] [address], [place] [address] 26 Mar, 2012 [facility] [address] [id number] [address] [place] [address], [place] [address] 25 Mar, 2012 [facility] [address] [id number] [address] [place] [address], [place] [address] 19 Mar, 2012 [facility] [address] [id number] [address] [place] [address], [place] [address] 18 Sep2011 [facility] [address] [id number] [address] [place] [address], [place] [address] 05 Mar, 2012 [facility] [address] [id number] [address] [place] [address], [place] [address] 28 Feb, 2012 [facility] [address] [id number] [address] [place] [address], [place] [address] Feb, [facility] [address] [id number] [address] [place] [address], [place] [address] Feb, [facility] [address] [id number] [address] [place] [address], [place] [address] Jan, [facility] [address] [id number] [address] [place] [address], [place] [address] Jan, [facility] [address] [id number] [address] [place] [address], [place] [address] Jan, [facility] [address] [id number] [address] [place] [address], [place] [address] Jan, [facility] [address] [id number] [address] [place] [address], [place] [address] Dec, [facility] [address] [id number] [address] [place] [address], [place] [address] November, [facility] [address] [id number] [address] [place] [address], [place] [address] November, [facility] [address] [id number] [address] [place] [address], [place] [address] November, [facility] [address] [id number] [address] [place] [address], [place] [address] November, [facility] [address] [id number] [address] [place] [address], [place] [address] November, [facility] [address] [id number] [address] [place] [address], [place] [address] November, [facility] [address] [id number] [address] [place] [address], [place] [address] Oct, [facility] [address] [id number] [address] [place] [address], [place] [address] Oct, [facility] [address] [id number] [address] [place] [address], [place] [address] Sep, [facility] [address] [id number] [address] [place] [address], [place] [address] Sep, [facility] [address] [id number] [address] [place] [address], [place] [address] Sep, [facility] [address] [id number] [address] [place] [address], [place] [address] Aug, [facility] [address] [id number] [address] [place] [address], [place] [address] Aug, [facility] [address] [id number] [address] [place] [address], [place] [address] 14 Aug, 2011 [facility] [address] [id number] [address] [place] [address], [place] [address] Aug, [facility] [address] [id number] [address] [place] [address], [place] [address] Aug, [facility] [address] [id number] [address] [place] [address], [place] [address] Aug, [facility] [address] [id number] [address] [place] [address], [place] [address] Jul, [facility] [address] [id number] [address] [place] [address], [place] [address] Jul, [facility] [address] [id number] [address] [place] [address], [place] [address] Jul, [facility] [address] [id number] [address] [place] [address], [place] [address] Jul, [facility] [address] [id number] [address] [place] [address], [place] [address] Jul, [facility] [address] [id number] [address] [place] [address], [place] [address] Jul, [facility] [address] [id number] [address] [place] [address], [place] [address] Jul, [facility] [address] [id number] [address] [place] [address], [place] [address] Jul, [facility] [address] [id number] [address] [place] [address], [place] [address] Jul, [facility] [address] [id number] [address] [place] [address], [place] [address] Jul, [facility] [address] [id number] [address] [place] [address], [place] [address] Jun, [facility] [address] [id number] [address] [place] [address], [place] [address] Jun, [facility] [address] [id number] [address] [place] [address], [place] [address] Jun, [facility] [address] [id number] [address] [place] [address], [place] [address] Jun, [facility] [address] [id number] [address] [place] [address], [place] [address] May, [facility] [address] [id number] [address] [place] [address], [place] [address] May, [facility] [address] [id number] [address] [place] [address], [place] [address] May, [facility] [address] [id number] [address] [place] [address], [place] [address] May, [facility] [address] [id number] [address] [place] [address], [place] [address] Apr, [facility] [address] [id number] [address] [place] [address], [place] [address] Apr, [facility] [address] [id number] [address] [place] [address], [place] [address] November, [facility] [address] [id number] [address] [place] [address], [place] [address] Oct, [facility] [address] [id number] [address] [place] [address], [place] [address] Aug, [facility] [address] [id number] [address] [place] [address], [place] [address] 28 Jun, 2010 [facility] [address] [id number] [address] [place] [address], [place] [address] 28 Jun, 2010 [facility] [address] [id number] [address] [place] [address], [place] [address] 27 Jun, 2010 [facility] [address] [id number] [address] [place] [address], [place] [address] 03 Jun, 2010 [facility] [address] [id number] [address] [place] [address], [place] [address] 29 May, 2010 [facility] [address] [id number] [address] [place] [address], [place] [address] 27 Apr, 2010 [facility] [address] [id number] [address] [place] [address], [place] [address] 13 Oct, 2009 [facility] [address] [id number] [address] [place] [address], [place] [address] 13 Aug, 2009 [facility] [address] [id number] [address] [place] [address], [place] [address] 20 Jul, 2009 [facility] [address] [id number] [address] [place] [address], [place] [address] 22 Jun, 2009 [facility] [address] [id number] [address] [place] [address], [place] [address] 16 Jun, 2009 [facility] [address] [id number] [address] [place] [address], [place] [address] 14 Jun, 2009 [facility] [address] [id number] [address] [place] [address], [place] [address] 14 Jun, 2009 [facility] [address] [id number] [address] [place] [address], [place] [address] 09 May, 2009 [facility] [address] [id number] [address] [place] [address], [place] [address] 20 Apr, 2009 [facility] [address] [id number] [address] [place] [address], [place] [address] 15 Mar, 2009 [facility] [address] [facility] [id number] [address] [place] [address] 14 Mar, 2009 [facility] [address] [facility] [id number] [address] [place] [address] 11 Dec, 2008 IMMUNIZATIONS No Known Immunizations SOCIAL HISTORY Never Assessed REASON FOR VISIT PLAN OF CARE VITAL SIGNS MEDICATIONS Medication Instructions Dosage Frequency Start Date End Date Duration S tatus Clonazepam 0.5 MG Orally daily. MAX 60/month take 1-2 tabs daily up to twice a day prn anxiety 30 days Active Duloxetine HCl 60 MG Orally [...]
--- OUTSIDE RECORDS SUMMARY | 2019-09-01 05:37 | XMS REPORT ---
Author Author Olivia GARCÍA [facility] [employer] Address Unknown Phone Unavailable Care Team Providers Care Life Skills Teacher Name Role Phone CHERYL GARCÍA Unavailable Allergies No Known Allergies Problems Problem [...] Active Problem Cervicalgia 723.1 Active Assessment Schizoaffective disorder, bipolar type F25.0 Active Problem Bipolar I disorder, most rec [...] Instructions Start Date End Date Status Dosage Clonazepam [facility] [address]-30 0.5 MG TAKE O NE TO TWO TABLETS BY MOUTH ONCE OR TWICE DAILY NEEDED FOR ANXIETY Results No Known Results Summary Purpose eClinicalWorks Submission
--- OUTSIDE RECORDS SUMMARY | 2019-09-01 05:37 | XMS REPORT ---
Author Olivia Romero [facility] eClinicalWorks Address Unknown Phone Unavailable Care Team Providers Care Hotel Superintendent Name Role Phone PHYLLIS STALEY CP Unavailable Allergies, Adverse Reactions, Alerts Substance Reaction Event Type N.K.D.A. 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 Active Problem Diabetes mellitus without me ntion of complication, type II or unspecified type, not stated as uncontrolled 250.00 Active Problem Raynaud's syndrome 443.0 Active Assessment Right shoulder pain M25.511 Active Problem Fibromyalgia M79.7 Active Problem Schizoaffective [...] Instructions Start Date End Date Status Dosage Abilify [facility] 12478522266 5 MG TAKE ONE TAB LET BY MOUTH DAILY Loratadine [facility] 61410854586 10 MG take 1 ta blet by Oral route 1 time per day take at hs for allergies Pantoprazole Sodium [facility] 93492107548 40 MG TAKE ONE TABLET BY MOUTH DAILY Sumatriptan Succinate [facility] [address]-34 100 MG TAKE ONE TABLET BY MOUTH ONCE DAILY NEEDED MAY REPEAT IN 2 HOURS IF HEADACHE RECURS [place]ml[place]ylate [place] 75331946477 5 MG TAKE ONE TABLET BY MOUTH DAILY conjugated estrogens ND 0 0.625 mg/gram November 22, 2012 1 g by Vaginal route 1 time per day use on external genitalia daily for 2 weeks then 3 times a week Amitriptyline HCl [facility] 82942214546 25 MG TA KE ONE TABLET BY MOUTH AT BEDTIME Metformin HCl [facility] 07337981762 500 MG Orally Twice a day 2 tablet with meals Lancets ND 0 Mar 28, 2013 2 times pe r day Premarin [facility] 99658879863 0.625 MG/GM USE 1 GRAM BY VAGINALLY ROUTE ON EXTERNAL GENITALS ONCE DAILY FOR 14 DAYS THEN DECREASE TO THREE TIMES A WEEK THEREAFTER Cyclobenzaprine HCl [facility] [address]-60 10 MG Orally 2 times a d ay Aug 04, 2015 Aug 18, 2015 1 tablet Cymbalta [facility] 98804117324 60 MG TAKE ONE CA PSULE BY MOUTH DAILY Nicoderm CQ [facility] [address]-86 21 MG/24HR Transdermal Once a day Jun 14, 2015 1 patch to skin tramadol [facility] 0 50 mg Rx to be filled on 07/11/15 October 04 15 1 Tablet by Oral route 3 times per day PRN ProAir HFA [facility] 48102624756 108 (90 Base) MCG/ACT INHALE TWO PUFFS BY MOUTH EVERY 6 HOURS NEEDED FOR WHEEZING Symbicort [facility] [address]-81 160-4.5 MCG/ACT Inhalation Twice a day 2 puffs Clonazepam [facility] [address]-35 0.5 MG TAKE O NE TO TWO TABLETS BY MOUTH ONCE OR TWICE DAILY NEEDED FOR ANXIETY Meloxicam [facility] 02285683222 15 MG TAKE ONE T ABLET BY MOUTH DAILY NEEDED Albuterol Sulfate [facility] [address]-66 (2.5 MG/3ML) 0 .083% Inhalation 4 times a day as Needed 3 ml Procedures Procedure Coding System Code Date Office Visit, Est Pt., Level 3 CPT-4 75905 J 2015 Vital Signs Date/Time: Aug 04, 2015 Temperature 98.2 F Weight 203.2 lbs Height 65 in BMI 33.81 Index Blood Pressure Diastolic 82 mmHg Blood Pressure Systolic 122 mmHg Cardiac Monitoring Heart Rate 84 bpm Results No Known Results Summary Purpose eClinicalWorks Submission
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
--- OUTSIDE RECORDS SUMMARY | 2019-09-01 05:38 | XMS REPORT ---
Author Author Olivia GARCÍA [facility] eClinicalWorks Address Unknown Phone Unavailable Care Team Providers Care Septic Tank Installer Name Role Phone CHERYL GARCÍA CP Unavailable [...] Start Date End Date Status Dosage Abilify [facility] [address]-47 5 MG TAKE ONE T ABLET BY MOUTH DAILY Pantoprazole Sodium ND 72965302041 40 MG TAKE ONE TABLET BY MOUTH DAILY conjugated estrogens NDC 0 0.625 mg/gram November 22, 2012 1 g by Vaginal route 1 time per day use on external genitalia daily for 2 weeks then 3 times a week Lancets ND 0 Mar 28, 2013 2 times pe r day Amlodipine Besylate [facility] 47436916347 5 MG TAKE ONE TABLET BY MOUTH DAILY Albuterol Sulfate [facility] [address]-52 (2.5 MG/3ML) 0 .083% Inhalation 4 times a day 3 ml Meloxicam [facility] 61975227590 15 MG TAKE ONE T ABLET BY MOUTH DAILY NEEDED tramadol ND 0 50 mg October 04, 2014 1 Tablet by Oral route 3 times per day PRN Metformin HCl [facility] [address]-16 500 MG Orally Twice a day 2 tablet with meals Cymbalta [facility] [address]-56 60 MG TAKE ONE CAPSULE BY MOUTH DAILY Sumatriptan Succinate [facility] 49261052053 100 MG TAKE ONE TABLET BY MOUTH ONCE DAILY NEEDED MAY REPEAT IN 2 HOURS IF HEADACHE RECURS Symbicort [facility] [address]-26 160-4.5 MCG/ACT Inhalation Twice a day 2 puffs Clonazepam [facility] [address]-95 0.5 MG TAKE O NE TO TWO TABLETS BY MOUTH ONCE OR TWICE DAILY NEEDED FOR ANXIETY Amitriptyline HCl [facility] [address]-60 25 MG TAKE ONE TABLET BY MOUTH AT BEDTIME Loratadine [facility] 11774302558 10 MG TAKE ONE TABLET BY MOUTH AT BEDTIME FOR ALLERGIES Procedures Procedure Coding System Code Date Office Visit, Est Pt., Level 3 CPT-4 98254 May 10, 2015 Vital Signs Date/Time: May 10, 2015 Cardiac Monitoring Heart Rate 96 bpm Weight 203.0 lbs Height 65 in BMI 33.78 Index Blood Pressure Diastolic 86 mmHg Blood Pressure Systolic 124 mmHg Results No Known Results Summary Purpose eClinicalWorks Submission
--- OUTSIDE RECORDS SUMMARY | 2019-09-01 05:38 | XMS REPORT ---
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 [address] Apr, [facility] [address] [id number] [address] [place] [address], [place] [address] 29 Mar, 2013 [facility] [address] [id number] [address] [place] [address], [place] [address] 29 Mar, 2013 [facility] [address] [id number] [address] [place] [address], [place] [address] 29 Mar, 2013 [facility] [address] [id number] [address] [place] [address], [place] [address] 29 Mar, 2013 [facility] [address] [id number] [address] [place] [address], [place] [address] Mar, 2013 [facility] [address] [id number] [address] [place] [address], [place] [address] Mar, 2013 [facility] [address] [id number] [address] [place] [address], [place] [address] Mar, 2013 [facility] [address] [id number] [address] [place] [address], [place] [address] Mar, 2013 [facility] [address] [id number] [address] [place] [address], [place] [address] Mar, 2013 [facility] [address] [id number] [address] [place] [address], [place] [address] Mar, 2013 [facility] [address] [id number] [address] [place] [address], [place] [address] Mar, 2013 [facility] [address] [id number] [address] [place] [address], [place] [address] Mar, 2013 [facility] [address] [id number] [address] [place] [address], [place] [address] Feb, [facility] [address] [id number] [address] [place] [address], [place] [address] Feb, [facility] [address] [id number] [address] [place] [address], [place] [address] Jan, [facility] [address] [id number] [address] [place] [address], [place] [address] Jan, [facility] [address] [id number] [address] [place] [address], [place] [address] Jan, [facility] [address] [id number] [address] [place] [address], [place] [address] Jan, [facility] [address] [id number] [address] [place] [address], [place] [address] Dec, [facility] [address] [id number] [address] [place] [address], [place] [address] Dec, [facility] [address] [id number] [address] [place] [address], [place] [address] Dec, [facility] [address] [id number] [address] [place] [address], [place] [address] Dec, [facility] [address] [id number] [address] [place] [address], [place] [address] Dec, [facility] [address] [id number] [address] [place] [address], [place] [address] Dec, [facility] [address] [id number] [address] [place] [address], [place] [address] November, [facility] [address] [id number] [address] [place] [address], [place] [address] November, [facility] [address] [id number] [address] [place] [address], [place] [address] November, [facility] [address] [id number] [address] [place] [address], [place] [address] November, [facility] [address] [id number] [address] [place] [address], [place] [address] November, [facility] [address] [id number] [address] [place] [address], [place] [address] November, [facility] [address] [place] [id number] November, [facility] [address] [id number] [address] [place] [address], [place] [address] November, [facility] [address] [id number] [address] [place] [address], [place] [address] November, [facility] [address] [id number] [address] [place] [address], [place] [address] November, [facility] [address] [id number] [address] [place] [address], [place] [address] November, [facility] [address] [id number] [address] [place] [address], [place] [address] November, [facility] [address] [id number] [address] [place] [address], [place] [address] Oct, [facility] [address] [id number] [address] [place] [address], [place] [address] Oct, [facility] [address] [id number] [address] [place] [address], [place] [address] Oct, [facility] [address] [id number] [address] [place] [address], [place] [address] Oct, [facility] [address] [id number] [address] [place] [address], [place] [address] Oct, [facility] [address] [id number] [address] [place] [address], [place] [address] Oct, [facility] [address] [id number] [address] [place] [address], [place] [address] Oct, [facility] [address] [id number] [address] [place] [address], [place] [address] Oct, [facility] [address] [id number] [address] [place] [address], [place] [address] Oct, [facility] [address] [id number] [address] [place] [address], [place] [address] Oct, [facility] [address] [id number] [address] [place] [address], [place] [address] Oct, [facility] [address] [id number] [address] [place] [address], [place] [address] Oct, [facility] [address] [id number] [address] [place] [address], [place] [address] Oct, [facility] [address] [id number] [address] [place] [address], [place] [address] Oct, [facility] [address] [id number] [address] [place] [address], [place] [address] Oct, [facility] [address] [id number] [address] [place] [address], [place] [address] Sep, [facility] [address] [id number] [address] [place] [address], [place] [address] Sep, [facility] [address] [id number] [address] [place] [address], [place] [address] Sep, [facility] [address] [id number] [address] [place] [address], [place] [address] Sep, [facility] [address] [id number] [address] [place] [address], [place] [address] Aug, [facility] [address] [id number] [address] [place] [address], [place] [address] Aug, [facility] [address] [id number] [address] [place] [address], [place] [address] Aug, [facility] [address] [id number] [address] [place] [address], [place] [address] Aug, [facility] [address] [id number] [address] [place] [address], [place] [address] Jul, [facility] [address] [id number] [address] [place] [address], [place] [address] Jul, [facility] [address] [id number] [address] [place] [address], [place] [address] Jul, [facility] [address] [id number] [address] [place] [address], [place] [address] Jul, [facility] [address] [id number] [address] [place] [address], [place] [address] Jul, [facility] [address] [id number] [address] [place] [address], [place] [address] Jul, [facility] [address] [id number] [address] [place] [address], [place] [address] Jul, [facility] [address] [id number] [address] [place] [address], [place] [address] Jul, [facility] [address] [id number] [address] [place] [address], [place] [address] Jul, [facility] [address] [id number] [address] [place] [address], [place] [address] Jul, [facility] [address] [id number] [address] [place] [address], [place] [address] Jul, [facility] [address] [id number] [address] [place] [address], [place] [address] Jul, [facility] [address] [id number] [address] [place] [address], [place] [address] Jul, [facility] [address] [id number] [address] [place] [address], [place] [address] Jul, [facility] [address] [id number] [address] [place] [address], [place] [address] Jun, [facility] [address] [id number] [address] [place] [address], [place] [address] Jun, [facility] [address] [id number] [address] [place] [address], [place] [address] Jun, [facility] [address] [id number] [address] [place] [address] Jun, [facility] [address] [id number] [address] [place] [address], [place] [address] May, [facility] [address] [id number] [address] [place] [address], [place] [address] May, [facility] [address] [id number] [address] [place] [address], [place] [address] May, [facility] [address] [id number] [address] [place] [address] May, [facility] [address] [id number] [address] [place] [address], [place] [address] May, [facility] [address] [id number] [address] [place] [address], [place] [address] May, [facility] [address] [id number] [address] [place] [address], [place] [address] May, [facility] [address] [id number] [address] [place] [address] May, [facility] [address] [id number] [address] [place] [address], [place] [address] Apr, [facility] [address] [id number] [address] [place] [address], [place] [address] Apr, [facility] [address] [id number] [address] [place] [address] Apr, [facility] [address] [id number] [address] [place] [address] Apr, [facility] [address] [id number] [address] [place] [address], [place] [address] Apr, [facility] [address] [id number] [address] [place] [address] Apr, [facility] [address] [id number] [address] [place] [address], [place] [address] Mar, [facility] [address] [id number] [address] [place] [address], [place] [address] 26 Mar, 2013 [facility] [address] [id number] [address] [place] [address], [place] [address] 20 Mar, 2013 [facility] [address] [id number] [address] [place] [address], [place] [address] 17 Mar, 2013 [facility] [address] [id number] [address] [place] [address], [place] [address] 16 Mar, 2013 [facility] [address] [id number] [address] [place] [address], [place] [address] 05 Mar, 2013 [facility] [address] [id number] [address] [place] [address], [place] [address] Feb, [facility] [address] [id number] [address] [place] [address], [place] [address] Feb, [facility] [address] [id number] 20 [place] [address], [place] [address] Feb, [facility] [address] [id number] [address] [place] [address], [place] [address] Feb, [facility] [address] [id number] [address] [place] [address], [place] [address] Jan, [facility] [address] [id number] [address] [place] [address], [place] [address] Jan, [facility] [address] [id number] [address] [place] [address], [place] [address] Jan, [facility] [address] [id number] [address] [place] [address], [place] [address] Jan, [facility] [address] [id number] [address] [place] [address], [place] [address] Jan, [facility] [address] [id number] [address] [place] [address], [place] [address] Dec, [facility] [address] [id number] [address] [place] [address], [place] [address] Dec, [facility] [address] [id number] [address] [place] [address], [place] [address] Dec, [facility] [address] [id number] [address] [place] [address], [place] [address] November, [facility] [address] [id number] [address] [place] [address], [place] [address] November, [facility] [address] [id number] [address] [place] [address], [place] [address] November, [facility] [address] [id number] [address] [place] [address], [place] [address] Oct, [facility] [address] [id number] [address] [place] [address], [place] [address] Oct, [facility] [address] [id number] [address] [place] [address], [place] [address] Oct, [facility] [address] [id number] [address] [place] [address], [place] [address] Oct, [facility] [address] [id number] [address] [place] [address], [place] [address] Oct, [facility] [address] [id number] [address] [place] [address], [place] [address] Oct, [facility] [address] [id number] [address] [place] [address], [place] [address] Oct, [facility] [address] [id number] [address] [place] [address], [place] [address] Sep, [facility] [address] [id number] [address] [place] [address], [place] [address] Sep, [facility] [address] [id number] [address] [place] [address], [place] [address] Sep, [facility] [address] [id number] [address] [place] [address], [place] [address] Sep, [facility] [address] [id number] [address] [place] [address] Aug, [facility] [address] [id number] [address] [place] [address], [place] [address] Aug, [facility] [address] [id number] [address] [place] [address], [place] [address] Aug, [facility] [address] [id number] [address] [place] [address], [place] [address] Aug, [facility] [address] [id number] [address] [place] [address], [place] [address] Aug, [facility] [address] [id number] [address] [place] [address], [place] [address] Aug, [facility] [address] [id number] [address] [place] [address], [place] [address] Jul, [facility] [address] [id number] [address] [place] [address], [place] [address] Jul, [facility] [address] [id number] [address] [place] [address], [place] [address] Jul, [facility] [address] [id number] [address] [place] [address], [place] [address] Jul, [facility] [address] [id number] [address] [place] [address], [place] [address] Jul, [facility] [address] [id number] [address] [place] [address], [place] [address] Jul, [facility] [address] [id number] [address] [place] [address], [place] [address] Jun, [facility] [address] [id number] [address] [place] [address], [place] [address] Jun, [facility] [address] [id number] [address] [place] [address], [place] [address] Jun, [facility] [address] [id number] [address] [place] [address], [place] [address] Jun, [facility] [address] [id number] [address] [place] [address], [place] [address] Jun, [facility] [address] [id number] [address] [place] [address], [place] [address] Jun, [facility] [address] [id number] [address] [place] [address], [place] [address] May, [facility] [address] [id number] [address] [place] [address], [place] [address] May, [facility] [address] [id number] [address] [place] [address], [place] [address] May, [facility] [address] [id number] [address] [place] [address], [place] [address] May, [facility] [address] [id number] [address] [place] [address], [place] [address] May, [facility] [address] [id number] [address] [place] [address], [place] [address] May, [facility] [address] [id number] [address] [place] [address], [place] [address] May, [facility] [address] [id number] [address] [place] [address], [place] [address] May, [facility] [address] [id number] [address] [place] [address], [place] [address] May, [facility] [address] [id number] [address] [place] [address], [place] [address] May, [facility] [address] [id number] [address] [place] [address], [place] [address] Apr, [facility] [address] [id number] [address] [place] [address], [place] [address] Apr, [facility] [address] [id number] [address] [place] [address], [place] [address] Apr, [facility] [address] [id number] [address] [place] [address] 23 Apr, 2012 [facility] [address] [id number] [address] [place] [address], [place] [address] 16 Apr, 2012 [facility] [address] [id number] [address] [place] [address], [place] [address] 16 Apr, 2012 [facility] [address] [id number] [address] [place] [address], [place] [address] 15 Apr, 2012 [facility] [address] [id number] [address] [place] [address], [place] [address] 15 Apr, 2012 [facility] [address] [id number] [address] [place] [address], [place] [address] 05 Apr, 2012 [facility] [address] [id number] [address] [place] [address], [place] [address] 28 Mar, 2012 [facility] [address] [id number] [address] [place] [address], [place] [address] 26 Mar, 2012 [facility] [address] [id number] [address] [place] [address], [place] [address] 25 Mar, 2012 [facility] [address] [id number] [address] [place] [address], [place] [address] 19 Mar, 2012 [facility] [address] [id number] [address] [place] [address], [place] [address] 18 Mar, 2012 [facility] [address] [id number] [address] [place] [address], [place] [address] 05 Mar, 2012 [facility] [address] [id number] [address] [place] [address], [place] [address] Feb, [facility] [address] [id number] [address] [place] [address], [place] [address] Feb, [facility] [address] [id number] [address] [place] [address], [place] [address] Feb, [facility] [address] [id number] [address] [place] [address], [place] [address] Jan, [facility] [address] [id number] [address] [place] [address], [place] [address] 31 Jan, 2012 [facility] [address] [id number] [address] [place] [address], [place] [address] Jan, [facility] [address] [id number] [address] [place] [address], [place] [address] Jan, [facility] [address] [id number] [address] [place] [address], [place] [address] Dec, [facility] [address] [id number] [address] [place] [address], [place] [address] November, [facility] [address] [id number] [address] [place] [address], [place] [address] November, [facility] [address] [id number] [address] [place] [address], [place] [address] November, [facility] [address] [id number] [address] [place] [address], [place] [address] November, [facility] [address] [id number] [address] [place] [address], [place] [address] November, [facility] [address] [id number] [address] [place] [address], [place] [address] November, [facility] [address] [id number] [address] [place] [address], [place] [address] Oct, [facility] [address] [id number] [address] [place] [address], [place] [address] Oct, [facility] [address] [id number] [address] [place] [address], [place] [address] Sep, [facility] [address] [id number] [address] [place] [address], [place] [address] Sep, [facility] [address] [id number] [address] [place] [address], [place] [address] Sep, [facility] [address] [id number] [address] [place] [address], [place] [address] Aug, [facility] [address] [id number] [address] [place] [address], [place] [address] Aug, [facility] [address] [id number] [address] [place] [address], [place] [address] 14 Aug, 2011 [facility] [address] [id number] [address] [place] [address], [place] [address] Aug, [facility] [address] [id number] [address] [place] [address], [place] [address] Aug, [facility] [address] [id number] [address] [place] [address], [place] [address] Aug, [facility] [address] [id number] [address] [place] [address], [place] [address] Jul, [facility] [address] [id number] [address] [place] [address], [place] [address] Jul, [facility] [address] [id number] [address] [place] [address], [place] [address] Jul, [facility] [address] [id number] [address] [place] [address], [place] [address] Jul, [facility] [address] [id number] [address] [place] [address], [place] [address] Jul, [facility] [address] [id number] [address] [place] [address], [place] [address] Jul, [facility] [address] [id number] [address] [place] [address], [place] [address] Jul, [facility] [address] [id number] [address] [place] [address], [place] [address] Jul, [facility] [address] [id number] [address] [place] [address], [place] [address] Jul, [facility] [address] [id number] [address] [place] [address], [place] [address] Jul, [facility] [address] [id number] [address] [place] [address], [place] [address] 28 Jun, 2011 [facility] [address] [id number] [address] [place] [address], [place] [address] Jun, [facility] [address] [id number] [address] [place] [address], [place] [address] Jun, [facility] [address] [id number] [address] [place] [address], [place] [address] Jun, [facility] [address] [id number] [address] [place] [address], [place] [address] 30 May, 2011 [facility] [address] [id number] [address] [place] [address], [place] [address] 29 May, 2011 [facility] [address] [id number] [address] [place] [address], [place] [address] May, [facility] [address] [id number] [address] [place] [address], [place] [address] May, [facility] [address] [id number] [address] [place] [address], [place] [address] Apr, [facility] [address] [id number] [address] [place] [address], [place] [address] Apr, [facility] [address] [id number] [address] [place] [address], [place] [address] November, [facility] [address] [id number] [address] [place] [address], [place] [address] Oct, [facility] [address] [id number] [address] [place] [address], [place] [address] Aug, [facility] [address] [id number] [address] [place] [address], [place] [address] Jun, [facility] [address] [id number] [address] [place] [address], [place] [address] Jun, [facility] [address] [id number] [address] [place] [address], [place] [address] Jun, [facility] [address] [id number] [address] [place] [address] 03 Jun, 2010 [facility] [address] [id number] [address] [place] [address] 29 May, 2010 [facility] [address] [id number] [address] [place] [address] 27 Apr, 2010 [facility] [address] [id number] [address] [place] [address] 13 Oct, 2009 [facility] [address] [id number] [address] [place] [address] 13 Aug, 2009 [facility] [address] [id number] [address] [place] [address] 20 Jul, 2009 [facility] [place] [address] [id number] [address] [place] [address] 22 Jun, 2009 [facility] [address] [id number] [address] [place] [address] 16 Jun, 2009 [facility] [place] [address] [id number] [address] [place] [address] 14 Jun, 2009 [facility] [place] [address] [id number] [address] [place] [address] 14 Jun, 2009 [facility] [place] [address] [id number] [address] [place] [address] 09 May, 2009 [facility] [place] [address] [id number] [address] [place] [address] 20 Apr, 2009 [facility] [place] [address] [id number] [address] [place] [address] 15 Mar, 2009 [facility] [place] [address] [id number] [address] [place] [address] 14 Mar, 2009 [facility] [place] [address] [id number] [address] [place] [address] 11 Dec, 2008 IMMUNIZATIONS No Known Immunizations SOCIAL HISTORY Never Assessed REASON FOR VISIT klonopin refill 03/10/2017 PLAN OF CARE VITAL SIGNS MEDICATIONS Medication [...]
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
--- OUTSIDE RECORDS SUMMARY | 2019-09-01 05:38 | XMS REPORT ---
Author Olivia Haney [facility] eClinicalWorks Address Unknown Phone Unavailable Care Team Providers Care Golf Caddy Name Role Phone CHERYL GARCÍA Unavailable Allergies [...] Start Date End Date Status Dosage Clonazepam [facility][NOTE 3] [address]-03 0.5 MG TAKE O NE TO TWO TABLETS BY MOUTH ONCE OR TWICE DAILY NEEDED FOR ANXIETY Results No Known Results Summary Purpose eClinicalWorks Submission
--- OUTSIDE RECORDS SUMMARY | 2019-09-01 05:38 | XMS REPORT ---
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 2014 [facility] [address] [id number] [address] [place] [address], [place] [address] Apr, [facility] [address] [id number] [address] [place] [address], [place] [address] 29 Mar, 2013 [facility] [address] [id number] [address] [place] [address], [place] [address] 29 Mar, 2013 [facility] [address] [id number] [address] [place] [address], [place] [address] 29 Mar, 2013 [facility] [address] [id number] [address] [place] [address], [place] [address] 29 Mar, 2013 [facility] [address] [id number] [address] [place] [address], [place] [address] 10 Mar, 2013 [facility] [address] [id number] [address] [place] [address], [place] [address] 10 Mar, 2013 [facility] [address] [id number] [address] [place] [address], [place] [address] 04 Mar, 2013 [facility] [address] [id number] [address] [place] [address], [place] [address] 04 Mar, 2013 [facility] [address] [id number] [address] [place] [address], [place] [address] Mar, 2013 [facility] [address] [id number] [address] [place] [address], [place] [address] Mar, 2013 [facility] [address] [id number] [address] [place] [address], [place] [address] Mar, 2013 [facility] [address] [id number] [address] [place] [address], [place] [address] Mar, 2013 [facility] [address] [id number] [address] [place] [address], [place] [address] Feb, [facility] [address] [id number] [address] [place] [address], [place] [address] Feb, [facility] [address] [id number] [address] [place] [address], [place] [address] Jan, [facility] [address] [id number] [address] [place] [address], [place] [address] Jan, [facility] [address] [id number] [address] [place] [address], [place] [address] Jan, [facility] [address] [id number] [address] [place] [address], [place] [address] Jan, [facility] [address] [id number] [address] [place] [address], [place] [address] Dec, [facility] [address] [id number] [address] [place] [address], [place] [address] Dec, [facility] [address] [id number] [address] [place] [address], [place] [address] Dec, [facility] [address] [id number] [address] [place] [address], [place] [address] Dec, [facility] [address] [id number] [address] [place] [address], [place] [address] Dec, [facility] [address] [id number] [address] [place] [address], [place] [address] Dec, [facility] [address] [id number] [address] [place] [address], [place] [address] November, [facility] [address] [id number] [address] [place] [address], [place] [address] November, [facility] [address] [id number] [address] [place] [address], [place] [address] November, [facility] [address] [id number] [address] [place] [address], [place] [address] November, [facility] [address] [id number] [address] [place] [address], [place] [address] November, [facility] [address] [id number] [address] [place] [address], [place] [address] November, [facility] [address] [place] [id number] November, [facility] [address] [id number] [address] [place] [address], [place] [address] November, [facility] [address] [id number] [address] [place] [address], [place] [address] November, [facility] [address] [id number] [address] [place] [address], [place] [address] November, [facility] [address] [id number] [address] [place] [address], [place] [address] November, [facility] [address] [id number] [address] [place] [address], [place] [address] November, [facility] [address] [id number] [address] [place] [address], [place] [address] Oct, [facility] [address] [id number] [address] [place] [address], [place] [address] Oct, [facility] [address] [id number] [address] [place] [address], [place] [address] Oct, [facility] [address] [id number] [address] [place] [address], [place] [address] Oct, [facility] [address] [id number] [address] [place] [address], [place] [address] Oct, [facility] [address] [id number] [address] [place] [address], [place] [address] Oct, [facility] [address] [id number] [address] [place] [address], [place] [address] Oct, [facility] [address] [id number] [address] [place] [address], [place] [address] Oct, [facility] [address] [id number] [address] [place] [address], [place] [address] Oct, [facility] [address] [id number] [address] [place] [address], [place] [address] Oct, [facility] [address] [id number] [address] [place] [address], [place] [address] Oct, [facility] [address] [id number] [address] [place] [address], [place] [address] Oct, [facility] [address] [id number] [address] [place] [address], [place] [address] Oct, [facility] [address] [id number] [address] [place] [address], [place] [address] Oct, [facility] [address] [id number] [address] [place] [address], [place] [address] Oct, [facility] [address] [id number] [address] [place] [address], [place] [address] Sep, [facility] [address] [id number] [address] [place] [address], [place] [address] Sep, [facility] [address] [id number] [address] [place] [address], [place] [address] Sep, [facility] [address] [id number] [address] [place] [address], [place] [address] Sep, [facility] [address] [id number] [address] [place] [address], [place] [address] Aug, [facility] [address] [id number] [address] [place] [address], [place] [address] Aug, [facility] [address] [id number] [address] [place] [address], [place] [address] Aug, [facility] [address] [id number] [address] [place] [address], [place] [address] Aug, [facility] [address] [id number] [address] [place] [address], [place] [address] Jul, [facility] [address] [id number] [address] [place] [address], [place] [address] Jul, [facility] [address] [id number] [address] [place] [address], [place] [address] Jul, [facility] [address] [id number] [address] [place] [address], [place] [address] Jul, [facility] [address] [id number] [address] [place] [address], [place] [address] Jul, [facility] [address] [id number] [address] [place] [address], [place] [address] Jul, [facility] [address] [id number] [address] [place] [address], [place] [address] Jul, [facility] [address] [id number] [address] [place] [address], [place] [address] Jul, [facility] [address] [id number] [address] [place] [address], [place] [address] Jul, [facility] [address] [id number] [address] [place] [address], [place] [address] Jul, [facility] [address] [id number] [address] [place] [address], [place] [address] Jul, [facility] [address] [id number] [address] [place] [address], [place] [address] Jul, [facility] [address] [id number] [address] [place] [address], [place] [id number] Jul, [facility] [address] [id number] [address] [place] [address], [place] [address] Jul, [facility] [address] [id number] [address] [place] [address], [place] [id number] Jun, [facility] [address] [id number] [address] [place] [address], [place] [address] Jun, [facility] [address] [id number] [address] [place] [address], [place] [address] Jun, [facility] [address] [id number] [address] [place] [address], [place] [address] Jun, [facility] [address] [id number] [address] [place] [address], [place] [id number] May, [facility] [address] [id number] [address] [place] [address], [place] [id number] May, [facility] [address] [id number] [address] [place] [id number] May, [facility] [address] [id number] [address] [place] [address], [place] [address] May, [facility] [address] [id number] [address] [place] [address], [place] [address] May, [facility] [address] [id number] [address] [place] [address], [place] [address] May, [facility] [address] [id number] [address] [place] [address], [place] [id number] May, [facility] [address] [id number] [address] [place] [address], [place] [id number] May, [facility] [address] [id number] [address] [place] [address], [place] [address] Apr, [facility] [address] [id number] [address] [place] [id number] Apr, [facility] [address] [id number] [address] [place] [id number] Apr, [facility] [address] [id number] [address] [place] [address], [place] [address] Apr, [facility] [address] [id number] [address] [place] [id number] Apr, [facility] [address] [id number] [address] [place] [address], [place] [id number] Apr, [facility] [address] [id number] [address] [place] [address], [place] [address] 30 Mar, 2012 [facility] [address] [id number] [address] [place] [address], [place] [id number] 26 Mar, 2013 [facility] [address] [id number] [address] [place] [address], [place] [id number] 20 Mar, 2012 [facility] [address] [id number] [address] [place] [address], [place] [id number] 17 Mar, 2012 [facility] [address] [id number] [address] [place] [address], [place] [address] 16 Mar, 2013 [facility] [address] [id number] [address] [place] [address], [place] [id number] 05 Mar, 2013 [facility] [address] [id number] [address] [place] [address], [place] [id number] 27 Feb, 2013 [facility] [address] [id number] [address] [place] [address], [place] [id number] Feb, [facility] [address] [id number] [address] [place] [address], [place] [id number] Feb, [facility] [address] [id number] [address] [place] [address], [place] [id number] Feb, [facility] [address] [id number] [address] [place] [address], [place] [id number] Jan, [facility] [address] [id number] [address] [place] [address], [place] [id number] Jan, [facility] [address] [id number] [address] [place] [address], [place] [id number] Jan, [facility] [address] [id number] [address] [place] [address], [place] [id number] Jan, [facility] [address] [id number] [address] [place] [address], [place] [id number] 16 Jan, 2013 [facility] [address] [id number] [address] [place] [address], [place] [id number] Dec, [facility] [address] [id number] [address] [place] [address], [place] [id number] Dec, [facility] [address] [id number] [address] [place] [address], [place] [id number] Dec, [facility] [address] [id number] [address] [place] [address], [place] [id number] November, [facility] [address] [id number] [address] [place] [address], [place] [id number] November, [facility] [address] [id number] [address] [place] [address], [place] [id number] November, [facility] [address] [id number] [address] [place] [address], [place] [phone] Oct, [facility] [address] [id number] [address] [place] [address], [place] [id number] Oct, [facility] [address] [id number] [address] [place] [address], [place] [address] Oct, [facility] [address] [id number] [address] [place] [address], [place] [address] Oct, [facility] [address] [id number] [address] [place] [address], [place] [address] Oct, [facility] [address] [id number] [address] [place] [address], [place] [address] Oct, [facility] [address] [id number] [address] [place] [address], [place] [address] 15 Oct, 2012 [facility] [address] [id number] [address] [place] [address], [place] [address] Sep, [facility] [address] [id number] [address] [place] [address], [place] [address] Sep, [facility] [address] [id number] [address] [place] [address], [place] [address] 06 Sep, 2012 [facility] [address] [id number] [address] [place] [id number] Sep, [facility] [address] [id number] [address] [place] [address], [place] [address] Aug, [facility] [address] [id number] [address] [place] [address], [place] [address] Aug, [facility] [address] [id number] [address] [place] [address], [place] [address] Aug, [facility] [address] [id number] [address] [place] [address], [place] [address] Aug, [facility] [address] [id number] [address] [place] [address], [place] [address] Aug, [facility] [address] [id number] [address] [place] [address], [place] [address] Aug, [facility] [address] [id number] [address] [place] [address], [place] [address] Jul, [facility] [address] [id number] [address] [place] [address], [place] [address] Jul, [facility] [address] [id number] [address] [place] [address], [place] [address] Jul, [facility] [address] [id number] [address] [place] [address], [place] [address] Jul, [facility] [address] [id number] [address] [place] [address], [place] [address] Jul, [facility] [address] [id number] [address] [place] [address], [place] [address] Jul, [facility] [address] [id number] [address] [place] [address], [place] [address] Jun, [facility] [address] [id number] [address] [place] [address], [place] [address] Jun, [facility] [address] [id number] [address] [place] [address], [place] [address] Jun, [facility] [address] [id number] [address] [place] [address], [place] [address] Jun, [facility] [address] [id number] [address] [place] [address], [place] [id number] Jun, [facility] [address] [id number] [address] [place] [address], [place] [address] Jun, [facility] [address] [id number] [address] [place] [address], [place] [address] May, [facility] [address] [id number] [address] [place] [address], [place] [address] May, [facility] [address] [id number] [address] [place] [address], [place] [address] May, [facility] [address] [id number] [address] [place] [address], [place] [address] May, [facility] [address] [id number] [address] [place] [address], [place] [address] May, [facility] [address] [id number] [address] [place] [address], [place] [address] May, [facility] [address] [id number] [address] [place] [address], [place] [address] May, [facility] [address] [id number] [address] [place] [address], [place] [address] May, [facility] [address] [id number] [address] [place] [address], [place] [address] May, [facility] [address] [id number] [address] [place] [address], [place] [address] May, [facility] [address] [id number] [address] [place] [address], [place] [address] Apr, [facility] [address] [id number] [address] [place] [address], [place] [address] Apr, [facility] [address] [id number] [address] [place] [id number] 23 Apr, 2012 [facility] [address] [id number] [address] [place] [address], [place] [address] 23 Apr, 2012 [facility] [address] [id number] [address] [place] [address], [place] [address] 16 Apr, 2012 [facility] [address] [id number] [address] [place] [address], [place] [address] 16 Apr, 2012 [facility] [address] [id number] [address] [place] [address], [place] [address] 15 Apr, 2012 [facility] [address] [id number] [address] [place] [address], [place] [id number] 15 Apr, 2012 [facility] [address] [id number] [address] [place] [address], [place] [address] 05 Apr, 2012 [facility] [address] [id number] [address] [place] [address], [place] [address] 28 Mar, 2012 [facility] [address] [id number] [address] [place] [address], [place] [address] 26 Mar, 2012 [facility] [address] [id number] [address] [place] [address], [place] [id number] 25 Mar, 2012 [facility] [address] [id number] [address] [place] [address], [place] [address] 19 Mar, 2012 [facility] [address] [id number] [address] [place] [address], [place] [address] 18 Mar, 2012 [facility] [address] [id number] [address] [place] [address], [place] [address] 05 Mar, 2012 [facility] [address] [id number] [address] [place] [address], [place] [address] 28 Feb, 2012 [facility] [address] [id number] [address] [place] [address], [place] [address] Feb, [facility] [address] [id number] [address] [place] [address], [place] [address] Feb, [facility] [address] [id number] [address] [place] [address], [place] [address] 31 Jan, 2012 [facility] [address] [id number] [address] [place] [address], [place] [address] Jan, [facility] [address] [id number] [address] [place] [address], [place] [address] Jan, [facility] [address] [id number] [address] [place] [address], [place] [address] Jan, [facility] [address] [id number] [address] [place] [address], [place] [address] Dec, [facility] [address] [id number] [address] [place] [address], [place] [phone] November, [facility] [address] [id number] [address] [place] [address], [place] [address] November, [facility] [address] [id number] [address] [place] [address], [place] [address] November, [facility] [address] [id number] [address] [place] [address], [place] [address] November, [facility] [address] [id number] [address] [place] [address], [place] [address] November, [facility] [address] [id number] [address] [place] [address], [place] [address] November, [facility] [address] [id number] [address] [place] [address], [place] [address] Oct, [facility] [address] [id number] [address] [place] [address], [place] [address] Oct, [facility] [address] [id number] [address] [place] [address], [place] [address] Sep, [facility] [address] [id number] [address] [place] [address], [place] [address] Sep, [facility] [address] [id number] [address] [place] [address], [place] [address] Sep, [facility] [address] [id number] [address] [place] [address], [place] [address] Aug, [facility] [address] [id number] [address] [place] [address], [place] [address] Aug, [facility] [address] [id number] [address] [place] [address], [place] [address] Aug, [facility] [address] [id number] [address] [place] [address], [place] [address] Aug, [facility] [address] [id number] [address] [place] [address], [place] [address] Aug, [facility] [address] [id number] [address] [place] [address], [place] [address] Aug, [facility] [address] [id number] [address] [place] [address], [place] [address] Jul, [facility] [address] [id number] [address] [place] [address], [place] [address] Jul, [facility] [address] [id number] [address] [place] [address], [place] [address] Jul, [facility] [address] [id number] [address] [place] [address], [place] [address] Jul, [facility] [address] [id number] [address] [place] [address], [place] [address] Jul, [facility] [address] [id number] [address] [place] [address], [place] [address] Jul, [facility] [address] [id number] [address] [place] [address], [place] [address] Jul, [facility] [address] [id number] [address] [place] [address], [place] [address] Jul, [facility] [address] [id number] [address] [place] [address], [place] [address] Jul, [facility] [address] [id number] [address] [place] [address], [place] [address] Jul, [facility] [address] [id number] [address] [place] [address], [place] [address] Jun, [facility] [address] [id number] [address] [place] [address], [place] [address] Jun, [facility] [address] [id number] [address] [place] [address], [place] [address] Jun, [facility] [address] [id number] [address] [place] [address], [place] [address] Jun, [facility] [address] [id number] [address] [place] [address], [place] [address] May, [facility] [address] [id number] [address] [place] [address], [place] [address] May, [facility] [address] [id number] [address] [place] [address], [place] [address] May, [facility] [address] [id number] [address] [place] [address], [place] [address] May, [facility] [address] [id number] [address] [place] [address], [place] [address] Apr, [facility] [address] [id number] [address] [place] [address], [place] [address] 31 Apr, 2011 [facility] [address] [id number] [address] [place] [address], [place] [address] November, [facility] [address] [id number] [address] [place] [address], [place] [address] Oct, [facility] [address] [id number] [address] [place] [address], [place] [address] Aug, [facility] [address] [id number] [address] [place] [address], [place] [address] Jun, [facility] [address] [id number] [address] [place] [address], [place] [address] Jun, [facility] [address] [id number] [address] [place] [address], [place] [address] 27 Jun, 2010 [facility] [address] [id number] [address] [place] [address], [place] [address] 03 Jun, 2010 [facility] [address] [id number] [address] [place] [address], [place] [address] 29 May, 2010 [facility] [address] [id number] [address] [place] [address], [place] [address] 27 Apr, 2010 [facility] [address] [id number] [address] [place] [address], [place] [id number] 13 Oct, 2009 [facility] [address] [id number] [address] [place] [address], [place] [address] 13 Aug, 2009 [facility] [address] [id number] [address] [place] [address], [place] [address] 20 Jul, 2009 [facility] [address] [id number] [address] [place] [address], [place] [address] 22 Jun, 2009 [facility] [address] [id number] [address] [place] [address], [place] [address] 16 Jun, 2009 [facility] [address] [id number] [address] [place] [address], [place] [address] 14 Jun, 2009 [facility] [address] [id number] [address] [place] [address], [place] [address] 14 Jun, 2009 [facility] [address] [id number] [address] [place] [id number] 09 May, 2009 [facility] [address] [id number] [address] [place] [address], [place] [address] 20 Apr, 2009 [facility] [address] [id number] [address] [place] [address], [place] [id number] 15 Mar, 2009 [facility] [address] [id number] [address] [place] [address], [place] [address] 14 Mar, 2009 [facility] [address] [id number] [address] [place] [address], [place] [address] 11 Dec, 2008 IMMUNIZATIONS No Known Immunizations SOCIAL HISTORY Never Assessed REASON FOR VISIT f/u-Randell MEDELLIN PLAN OF CARE Activity Details Follow Up 4 Weeks Reason: VITAL SIGNS Height 66.0 in 2017-04-15 Weight 205.4 lbs 2017-04-15 Heart Rate 86 bpm 2017-04-15 Respiratory Rate 20 2017-04-15 BMI 33.15 kg/m2 2017-04-15 Blood pressure systolic 122 mmHg 2017-04-15 Blood pressure diastolic 74 mmHg 2017-04-15 MEDICATIONS Medication Instructions Dosage Frequency Start Date End Date Duration S tatus Clonazepam 0.5 MG Orally daily. MAX 60/month and no early refills take 1-2 tabs daily up to twice a day prn anxiety 30 da ys Active Hydrocodone-Acetaminophen 7.5-325 MG Orally Once a day at be dtime 1 tablet as needed Feb, Active Lancets 2 times per day Mar, Act ariella Misc. Devices N/A Nebulizer machine May, Active Albuterol Sulfate (2.5 MG/3ML) 0.083% Inhalation 4 times a day as N eeded 3 ml Active Pantoprazole Sodium 40 MG TAKE ONE TABLET BY MOUTH DAILY 90 Active Lisinopril-Hydrochlorothiazide 20-25 MG Orally Once a day 1 tablet 24h Jul, 90 days Active Meloxicam 15 MG Orally Once a day 1 tablet as needed 24h 90 days Active Metformin HCl 500 mg Orally Once a day 1 tablet with meal 24h 90 Active Tramadol HCl 50 mg Orally 3 times a day 1 tablet 8h Jun, 28 days Active Latuda 20 MG Orally Once a day 1 tablet with food every dinnertime 24h Apr, 30 day(s) Active Ventolin HFA 108 (90 Base) MCG/ACT Inhalation every 4 hrs 2 puffs a s needed 4h 30 Active Triamcinolone Acetonide 0.5 % Externally Twice a day 1 appli cation to affected area 12h Jul, 10 days Active Neurontin 100 MG Orally Once a day at bedtime 1 capsule Oct, Active Nicoderm CQ 21 MG/24HR Transdermal Once a day 1 patch to skin 24h Jun, 30 days Active Duloxetine HCl 60 MG Orally Once a day TAKE ONE CAPSULE BY MOUTH ON CE DAILY 24h 30 days Active Symbicort 160-4.5 MCG/ACT INHALE TWO PUFFS BY MOUTH TWICE DAILY 90 Active RESULTS No Results PROCEDURES Procedure Date Ordered Result Body Site [facility] VISIT ESTABLISHED PATIENT Apr 15, 2017 INSTRUCTIONS MEDICATIONS ADMINISTERED No Known Medications [...]
--- OUTSIDE RECORDS SUMMARY | 2019-09-01 05:39 | XMS REPORT ---
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 [place] [address] Apr, [facility] [address] [id number] [address] [place] [address], [place] [address] Apr, [facility] [address] [id number] [address] [place] [address] Apr, [facility] [address] [id number] [address] [place] [address], [place] [address] Apr, [facility] [address] [id number] [address] [place] [address], [place] [address] 02 Apr, 2014 [facility] [address] [id number] [address] [place] [address], [place] [address] Mar, 2013 [facility] [address] [id number] [address] [place] [address], [place] [address] Mar, 2013 [facility] [address] [id number] [address] [place] [address], [place] [address] Mar, 2013 [facility] [address] [id number] [address] [place] [address], [place] [address] Mar, 2013 [facility] [address] [id number] [address] [place] [address], [place] [address] Mar, 2013 [facility] [address] [id number] [address] [place] [address], [place] [address] Mar, 2013 [facility] [address] [id number] [address] [place] [address], [place] [address] Mar, 2013 [facility] [address] [id number] [address] [place] [address], [place] [address] Mar, 2013 [facility] [address] [id number] [address] [place] [address], [place] [address] Mar, 2013 [facility] [address] [id number] [address] [place] [address], [place] [address] Mar, 2013 [facility] [address] [id number] [address] [place] [address], [place] [address] Mar, 2013 [facility] [address] [id number] [address] [place] [address], [place] [address] Mar, 2013 [facility] [address] [id number] [address] [place] [address], [place] [address] Feb, [facility] [address] [id number] [address] [place] [address], [place] [address] Feb, [facility] [address] [id number] [address] [place] [address], [place] [address] Jan, [facility] [address] [id number] [address] [place] [address], [place] [address] Jan, [facility] [address] [id number] [address] [place] [address], [place] [address] Jan, [facility] [address] [id number] [address] [place] [address], [place] [address] Jan, [facility] [address] [id number] [address] [place] [address], [place] [address] Dec, [facility] [address] [id number] [address] [place] [address], [place] [address] Dec, [facility] [address] [id number] [address] [place] [address], [place] [address] Dec, [facility] [address] [id number] [address] [place] [address], [place] [address] Dec, [facility] [address] [id number] [address] [place] [address], [place] [address] Dec, [facility] [address] [id number] [address] [place] [address], [place] [address] Dec, [facility] [address] [id number] [address] [place] [address], [place] [address] November, [facility] [address] [id number] [address] [place] [address], [place] [address] November, [facility] [address] [id number] [address] [place] [address], [place] [address] November, [facility] [address] [id number] [address] [place] [address], [place] [address] November, [facility] [address] [id number] [address] [place] [address], [place] [address] November, [facility] [address] [id number] [address] [place] [address], [place] [address] November, [address] [id number] November, [facility] [address] [id number] [address] [place] [address], [place] [address] November, [facility] [address] [id number] [address] [place] [address], [place] [address] November, [facility] [address] [id number] [address] [place] [address], [place] [address] November, [facility] [address] [id number] [address] [place] [address], [place] [address] November, [facility] [address] [id number] [address] [place] [address], [place] [address] November, [facility] [address] [id number] [address] [place] [address], [place] [address] Oct, [facility] [address] [id number] [address] [place] [address], [place] [address] Oct, [facility] [address] [id number] [address] [place] [address], [place] [address] Oct, [facility] [address] [id number] [address] [place] [address], [place] [address] Oct, [facility] [address] [id number] [address] [place] [address], [place] [address] Oct, [facility] [address] [id number] [address] [place] [address], [place] [address] Oct, [facility] [address] [id number] [address] [place] [address], [place] [address] Oct, [facility] [address] [id number] [address] [place] [address], [place] [address] Oct, [facility] [address] [id number] [address] [place] [address], [place] [address] Oct, [facility] [address] [id number] [address] [place] [address], [place] [address] Oct, [facility] [address] [id number] [address] [place] [address], [place] [address] Oct, [facility] [address] [id number] [facility] [place] [address] Oct, [facility] [address] [id number] [address] [place] [address], [place] [address] Oct, [facility] [address] [id number] [address] [place] [address], [place] [address] Oct, [facility] [address] [id number] [address] [place] [address], [place] [address] Oct, [facility] [address] [id number] [address] [place] [address], [place] [address] Sep, [facility] [address] [id number] [address] [place] [address], [place] [address] Sep, [facility] [address] [id number] [address] [place] [address], [place] [address] Sep, [facility] [address] [id number] [address] [place] [address], [place] [address] Sep, [facility] [address] [id number] [address] [place] [address], [place] [address] Aug, [facility] [address] [id number] [address] [place] [address], [place] [address] Aug, [facility] [address] [id number] [address] [place] [address], [place] [address] Aug, [facility] [address] [id number] [address] [place] [address], [place] [address] Aug, [facility] [address] [id number] [address] [place] [address], [place] [address] Jul, [facility] [address] [id number] [address] [place] [address], [place] [address] Jul, [facility] [address] [id number] [address] [place] [address], [place] [address] Jul, [facility] [address] [id number] [address] [place] [address], [place] [address] Jul, [facility] [address] [id number] [address] [place] [address], [place] [address] Jul, [facility] [address] [id number] [address] [place] [address], [place] [address] Jul, [facility] [address] [id number] [address] [place] [address], [place] [address] Jul, [facility] [address] [id number] [address] [place] [address], [place] [address] Jul, [facility] [address] [id number] [address] [place] [address], [place] [address] Jul, [facility] [address] [id number] [address] [place] [address], [place] [address] Jul, [facility] [address] [id number] [address] [place] [address], [place] [address] Jul, [facility] [address] [id number] [address] [place] [address], [place] [address] Jul, [facility] [address] [id number] [address] [place] [address], [place] [address] Jul, [facility] [address] [id number] [address] [place] [address], [place] [address] Jul, [facility] [address] [id number] [address] [place] [address], [place] [address] Jun, [facility] [address] [id number] [address] [place] [address], [place] [address] Jun, [facility] [address] [id number] [address] [place] [address], [place] [address] Jun, [facility] [address] [id number] [address] [place] [address], [place] [address] Jun, [facility] [address] [id number] [address] [place] [address] May, [facility] [address] [id number] [address] [place] [address], [place] [address] May, [facility] [address] [id number] [address] [place] [address] May, [facility] [address] [id number] [address] [place] [address], [place] [address] May, [facility] [address] [id number] [address] [place] [address] May, [facility] [address] [id number] [address] [place] [address], [place] [address] May, [facility] [address] [id number] [address] [place] [address] May, [facility] [address] [id number] [address] [place] [address] May, [facility] [address] [id number] [address] [place] [address], [place] [address] Apr, [facility] [address] [id number] [address] [place] [address] Apr, [facility] [address] [id number] [address] [place] [address] Apr, [facility] [address] [id number] [address] [place] [address] Apr, [facility] [address] [id number] [address] [place] [address] Apr, [facility] [address] [id number] [address] [place] [address] Apr, [facility] [address] [id number] [address] [place] [id number] 30 Mar, 2013 [facility] [address] [id number] [address] [place] [address], [place] [address] Mar, [facility] [address] [id number] [address] [place] [address], [place] [address] 20 Mar, 2013 [facility] [address] [id number] [address] [place] [address], [place] [address] 17 Mar, 2013 [facility] [address] [id number] [address] [place] [address], [place] [address] 16 Mar, 2013 [facility] [address] [id number] [address] [place] [address], [place] [address] 05 Mar, 2013 [facility] [address] [id number] [address] [place] [address], [place] [address] Feb, [facility] [address] [id number] [address] [place] [address], [place] [address] Feb, [facility] [address] [id number] [address] [place] [address], [place] [address] Feb, [facility] [address] [id number] [address] [place] [address], [place] [address] Feb, [facility] [address] [id number] [address] [place] [address], [place] [address] Jan, [facility] [address] [id number] [address] [place] [address], [place] [address] Jan, [facility] [address] [id number] [address] [place] [address], [place] [address] Jan, [facility] [address] [id number] [address] [place] [address], [place] [address] Jan, [facility] [address] [id number] [address] [place] [address], [place] [address] Jan, [facility] [address] [id number] [address] [place] [address], [place] [address] Dec, [facility] [address] [id number] [address] [place] [address], [place] [address] Dec, [facility] [address] [id number] [address] [place] [address], [place] [address] Dec, [facility] [address] [id number] [address] [place] [address], [place] [address] November, [facility] [address] [id number] [address] [place] [address], [place] [address] November, [facility] [address] [id number] [address] [place] [address], [place] [address] November, [facility] [address] [id number] [address] [place] [address], [place] [address] Oct, [facility] [address] [id number] [address] [place] [address], [place] [address] Oct, [facility] [address] [id number] [address] [place] [address], [place] [address] Oct, [facility] [address] [id number] [address] [place] [address], [place] [address] Oct, [facility] [address] [id number] [address] [place] [address], [place] [address] Oct, [facility] [address] [id number] [address] [place] [address], [place] [address] Oct, [facility] [address] [id number] [address] [place] [address], [place] [address] Oct, [facility] [address] [id number] [address] [place] [address], [place] [address] Sep, [facility] [address] [id number] [address] [place] [address], [place] [address] Sep, [facility] [address] [id number] [address] [place] [address], [place] [address] Sep, [facility] [address] [id number] [address] [place] [address], [place] [address] Sep, [facility] [facility] [address] [id number] [address] [place] [address], [place] [address] Aug, [facility] [address] [id number] [address] [place] [address], [place] [address] Aug, [facility] [address] [id number] [address] [place] [address], [place] [address] Aug, [facility] [address] [id number] [address] [place] [address], [place] [address] Aug, [facility] [address] [id number] [address] [place] [address], [place] [address] Aug, [facility] [address] [id number] [address] [place] [address], [place] [address] Aug, [facility] [address] [id number] [address] [place] [address], [place] [address] Jul, [facility] [address] [id number] [address] [place] [address], [place] [address] Jul, [facility] [address] [id number] [address] [place] [address], [place] [address] Jul, [facility] [address] [id number] [address] [place] [address], [place] [address] Jul, [facility] [address] [id number] [address] [place] [address], [place] [address] Jul, [facility] [address] [id number] [address] [place] [address], [place] [address] Jul, [facility] [address] [id number] [address] [place] [address], [place] [address] Jun, [facility] [address] [id number] [address] [place] [address], [place] [address] Jun, [facility] [address] [id number] [address] [place] [address], [place] [address] Jun, [facility] [address] [id number] [address] [place] [address], [place] [address] Jun, [facility] [address] [id number] [address] [place] [address], [place] [address] Jun, [facility] [address] [id number] [address] [place] [address], [place] [address] Jun, [facility] [address] [id number] [address] [place] [address], [place] [address] May, [facility] [address] [id number] [address] [place] [address], [place] [address] May, [facility] [address] [id number] [address] [place] [address], [place] [address] May, [facility] [address] [id number] [address] [place] [address], [place] [address] May, [facility] [address] [id number] [address] [place] [address], [place] [address] May, [facility] [address] [id number] [address] [place] [address], [place] [address] May, [facility] [address] [id number] [address] [place] [address], [place] [address] May, [facility] [address] [id number] [address] [place] [address], [place] [address] May, [facility] [address] [id number] [address] [place] [address], [place] [address] May, [facility] [address] [id number] [address] [place] [address], [place] [address] May, [facility] [address] [id number] [address] [place] [address] Apr, [facility] [address] [id number] [address] [place] [address], [place] [address] Apr, [facility] [address] [id number] [address] [place] [address], [place] [address] Apr, [facility] [address] [id number] [address] [place] [address], [place] [address] Apr, [facility] [address] [id number] [address] [place] [address] 16 Apr, 2012 [facility] [address] [id number] [address] [place] [address], [place] [address] 16 Apr, 2012 [facility] [address] [id number] [address] [place] [address], [place] [address] 15 Apr, 2012 [facility] [address] [id number] [address] [place] [address], [place] [address] 15 Apr, 2012 [facility] [address] [id number] [address] [place] [address], [place] [address] 05 Apr, 2012 [facility] [address] [id number] [address] [place] [address], [place] [address] 28 Mar, 2012 [facility] [address] [id number] [address] [place] [address], [place] [address] 26 Mar, 2012 [facility] [address] [id number] [address] [place] [address], [place] [address] 25 Mar, 2012 [facility] [address] [id number] [address] [place] [address], [place] [address] 19 Mar, 2012 [facility] [address] [id number] [address] [place] [address], [place] [address] 18 Mar, 2012 [facility] [address] [id number] [address] [place] [address], [place] [address] 05 Mar, 2012 [facility] [address] [id number] [address] [place] [address], [place] [address] 28 Feb, 2012 [facility] [address] [id number] [address] [place] [address], [place] [address] Feb, [facility] [address] [id number] [address] [place] [address], [place] [address] Feb, [facility] [address] [id number] [address] [place] [address], [place] [address] Jan, [facility] [address] [id number] [address] [place] [address], [place] [address] Jan, [facility] [address] [id number] [address] [place] [address], [place] [address] Jan, [facility] [address] [id number] [address] [place] [address], [place] [address] Jan, [facility] [address] [id number] [address] [place] [address], [place] [address] Dec, [facility] [address] [id number] [address] [place] [address], [place] [address] November, [facility] [address] [id number] [address] [place] [address], [place] [address] November, [facility] [address] [id number] [address] [place] [address], [place] [address] November, [facility] [address] [id number] [address] [place] [address], [place] [address] November, [facility] [address] [id number] [address] [place] [address], [place] [address] November, [facility] [address] [id number] [address] [place] [address], [place] [address] November, [facility] [address] [id number] [address] [place] [address], [place] [address] Oct, [facility] [address] [id number] [address] [place] [address], [place] [address] Oct, [facility] [address] [id number] [address] [place] [address], [place] [address] Sep, [facility] [address] [id number] [address] [place] [address], [place] [address] Sep, [facility] [address] [id number] [address] [place] [address], [place] [address] Sep, [facility] [address] [id number] [address] [place] [address], [place] [address] Aug, [facility] [address] [id number] [address] [place] [address], [place] [address] Aug, 2011 [facility] [address] [id number] [address] [place] [address], [place] [address] 14 Aug, 2011 [facility] [address] [id number] [address] [place] [address], [place] [address] Aug, [facility] [address] [id number] [address] [place] [address], [place] [address] Aug, [facility] [address] [id number] [address] [place] [address], [place] [address] Aug, [facility] [address] [id number] [address] [place] [address], [place] [address] Jul, [facility] [address] [id number] [address] [place] [address], [place] [address] Jul, [facility] [address] [id number] [address] [place] [address], [place] [address] Jul, [facility] [address] [id number] [address] [place] [address], [place] [address] Jul, [facility] [address] [id number] [address] [place] [address], [place] [address] Jul, [facility] [address] [id number] [address] [place] [address], [place] [address] Jul, [facility] [address] [id number] [address] [place] [address], [place] [address] Jul, [facility] [address] [id number] [address] [place] [address], [place] [address] Jul, [facility] [address] [id number] [address] [place] [address], [place] [address] Jul, [facility] [address] [id number] [address] [place] [address], [place] [address] Jul, [facility] [address] [id number] [address] [place] [address], [place] [address] Jun, [facility] [address] [id number] [address] [place] [address], [place] [address] Jun, [facility] [address] [id number] [address] [place] [address], [place] [address] Jun, [facility] [address] [id number] [address] [place] [address], [place] [address] Jun, [facility] [address] [id number] [address] [place] [address], [place] [address] May, [facility] [address] [id number] [address] [place] [address], [place] [address] May, [facility] [address] [id number] [address] [place] [address], [place] [address] May, [facility] [address] [id number] [address] [place] [address], [place] [address] May, [facility] [address] [id number] [address] [place] [address], [place] [address] Apr, [facility] [address] [id number] [address] [place] [address], [place] [address] Apr, [facility] [address] [id number] [address] [place] [address], [place] [address] November, [facility] [address] [id number] [address] [place] [address], [place] [address] Oct, [facility] [address] [id number] [address] [place] [address], [place] [address] Aug, [facility] [address] [id number] [address] [place] [address], [place] [address] Jun, [facility] [address] [id number] [address] [place] [address], [place] [address] Jun, [facility] [address] [id number] [address] [place] [address], [place] [address] Jun, [facility] [address] [id number] [address] [place] [address], [place] [address] 03 Jun, 2010 [facility] [address] [id number] [address] [place] [address] 29 May, 2010 [facility] [address] [id number] [address] [place] [address] 27 Apr, 2010 [facility] [address] [id number] [address] [place] [address] 13 Oct, 2009 [facility] [address] [id number] [address] [place] [address] 13 Aug, 2009 [facility] [address] [id number] [address] [place] [address] Jul, [facility] [address] [id number] [address] [place] [address] 22 Jun, 2009 [facility] [address] [id number] [address] [place] [address] 16 Jun, 2009 [facility] [address] [id number] [address] [place] [address] 14 Jun, 2009 [facility] [address] [id number] [address] [place] [address] 14 Jun, 2009 [facility] [address] [id number] [address] [place] [address] 09 May, 2009 [facility] [address] [id number] [address] [place] [address] 20 Apr, 2009 [facility] [address] [id number] [address] [place] [address] 15 Mar, 2009 [facility] [address] [id number] [address] [place] [address] 14 Mar, 2009 [facility] [address] [id number] [address] [place] [id number] 11 Dec, 2008 IMMUNIZATIONS No Known Immunizations SOCIAL HISTORY Never Assessed REASON FOR VISIT Share appointment PLAN OF CARE VITAL SIGNS MEDICATIONS Unknown [...]
--- OUTSIDE RECORDS SUMMARY | 2019-09-01 05:39 | XMS REPORT ---
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 [facility] [address] [id number] [address] [place] [address], [place] [address] Apr, [facility] [address] [id number] [address] [place] [address], [place] [address] Apr, [facility] [address] [id number] [address] [place] [address], [place] [address] Apr, [facility] [address] [id number] [address] [place] [address], [place] [address] Apr, [facility] [address] [id number] [address] [place] [address], [place] [address] Apr, [facility] [address] [id number] [address] [place] [address], [place] [address] Mar, 2013 [facility] [address] [id number] [address] [place] [address], [place] [address] Mar, 2013 [facility] [address] [id number] [address] [place] [address], [place] [address] Mar, 2013 [facility] [address] [id number] [address] [place] [address], [place] [address] Mar, 2013 [facility] [address] [id number] [address] [place] [address], [place] [address] 10 Mar, 2013 [facility] [address] [id number] [address] [place] [address], [place] [address] 10 Mar, 2013 [facility] [address] [id number] [address] [place] [address], [place] [address] Mar, 2013 [facility] [address] [id number] [address] [place] [id number] 04 Mar, 2013 [facility] [address] [id number] [address] [place] [address], [place] [address] Mar, 2013 [facility] [address] [id number] [address] [place] [address], [place] [address] Mar, 2013 [facility] [address] [id number] [address] [place] [address], [place] [address] Mar, 2013 [facility] [address] [id number] [address] [place] [address] Mar, [facility] [address] [id number] [address] [place] [address], [place] [address] Feb, [facility] [address] [id number] [address] [place] [address], [place] [address] Feb, [facility] [address] [id number] [address] [place] [address], [place] [address] Jan, [facility] [address] [id number] [address] [place] [address], [place] [address] Jan, [facility] [address] [id number] [address] [place] [address], [place] [address] Jan, [facility] [address] [id number] [address] [place] [address], [place] [address] Jan, [facility] [address] [id number] [address] [place] [address], [place] [address] Dec, [facility] [address] [id number] [address] [place] [address], [place] [address] Dec, [facility] [address] [id number] [address] [place] [address], [place] [address] Dec, [facility] [address] [id number] [address] [place] [address], [place] [address] Dec, [facility] [address] [id number] [address] [place] [address], [place] [address] Dec, [facility] [address] [id number] [address] [place] [address], [place] [address] Dec, [facility] [address] [id number] [address] [place] [address], [place] [address] November, [facility] [address] [id number] [address] [place] [address], [place] [address] November, [facility] [address] [id number] [address] [place] [address], [place] [address] November, [facility] [address] [id number] [address] [place] [address], [place] [address] November, [facility] [address] [id number] [address] [place] [address], [place] [address] November, [facility] [address] [id number] [address] [place] [address], [place] [address] November, [facility] [address] [place] [id number] November, [facility] [address] [id number] [address] [place] [address], [place] [address] November, [facility] [address] [id number] [address] [place] [address], [place] [address] November, [facility] [address] [id number] [address] [place] [address], [place] [address] November, [facility] [address] [id number] [address] [place] [address], [place] [address] November, [facility] [address] [id number] [address] [place] [address], [place] [address] November, [facility] [address] [id number] [address] [place] [address], [place] [address] Oct, [facility] [address] [id number] [address] [place] [address], [place] [address] Oct, [facility] [address] [id number] [address] [place] [address], [place] [address] Oct, [facility] [address] [id number] [address] [place] [address], [place] [address] Oct, [facility] [address] [id number] [address] [place] [address], [place] [address] Oct, [facility] [address] [id number] [address] [place] [address], [place] [address] Oct, [facility] [address] [id number] [address] [place] [address], [place] [address] Oct, [facility] [address] [id number] [facility] [place] [address] Oct, [facility] [address] [id number] [address] [place] [address], [place] [address] Oct, [facility] [address] [id number] [address] [place] [address], [place] [address] Oct, [facility] [address] [id number] [address] [place] [address], [place] [address] Oct, [facility] [address] [id number] [address] [place] [address], [place] [address] Oct, [facility] [address] [id number] [address] [place] [address], [place] [address] Oct, [facility] [address] [id number] [address] [place] [address], [place] [address] Oct, [facility] [address] [id number] [address] [place] [address], [place] [address] Oct, [facility] [address] [id number] [address] [place] [address], [place] [address] Sep, [facility] [address] [id number] [address] [place] [address], [place] [address] Sep, [facility] [address] [id number] [address] [place] [address], [place] [address] Sep, [facility] [address] [id number] [address] [place] [address], [place] [address] Sep, [facility] [address] [id number] [address] [place] [address], [place] [address] Aug, [facility] [address] [id number] [address] [place] [address], [place] [address] Aug, [facility] [address] [id number] [address] [place] [address], [place] [address] Aug, [facility] [address] [id number] [address] [place] [address], [place] [address] Aug, [facility] [address] [id number] [address] [place] [address], [place] [address] Jul, [facility] [address] [id number] [address] [place] [address], [place] [address] Jul, [facility] [address] [id number] [address] [place] [address], [place] [address] Jul, [facility] [address] [id number] [address] [place] [address], [place] [address] Jul, [facility] [address] [id number] [address] [place] [address], [place] [address] Jul, [facility] [address] [id number] [address] [place] [address], [place] [address] Jul, [facility] [address] [id number] [address] [place] [address], [place] [address] Jul, [facility] [address] [id number] [address] [place] [address], [place] [address] Jul, [facility] [address] [id number] [address] [place] [address], [place] [address] Jul, [facility] [address] [id number] [address] [place] [address], [place] [address] Jul, [facility] [address] [id number] [address] [place] [address], [place] [address] Jul, [facility] [address] [id number] [address] [place] [address], [place] [address] Jul, [facility] [address] [id number] [address] [place] [address], [place] [address] Jul, [facility] [address] [id number] [address] [place] [address], [place] [address] Jul, [facility] [address] [id number] [address] [place] [address], [place] [address] Jun, [facility] [address] [id number] [address] [place] [address], [place] [address] Jun, [facility] [address] [id number] [address] [place] [address], [place] [address] Jun, [facility] [address] [id number] [address] [place] [address], [place] [address] Jun, [facility] [address] [id number] [address] [place] [address], [place] [address] May, [facility] [address] [id number] [address] [place] [address], [place] [address] May, [facility] [address] [id number] [address] [place] [address], [place] [address] May, [facility] [address] [id number] [address] [place] [address], [place] [address] May, [facility] [address] [id number] [address] [place] [address], [place] [address] May, [facility] [address] [id number] [address] [place] [address], [place] [address] May, [facility] [address] [id number] [address] [place] [address], [place] [address] May, [facility] [address] [id number] [address] [place] [address], [place] [address] May, [facility] [address] [id number] [address] [place] [address], [place] [address] Apr, [facility] [address] [id number] [address] [place] [address], [place] [address] Apr, [facility] [address] [id number] [address] [place] [address], [place] [address] Apr, [facility] [address] [id number] [address] [place] [address], [place] [address] Apr, [facility] [address] [id number] [address] [place] [address], [place] [address] Apr, [facility] [address] [id number] [address] [place] [address], [place] [address] Apr, [facility] [address] [id number] [address] [place] [address], [place] [address] 30 Mar, 2013 [facility] [address] [id number] [address] [place] [address], [place] [address] 26 Mar, 2013 [facility] [address] [id number] [address] [place] [address], [place] [address] 20 Mar, 2013 [facility] [address] [id number] [address] [place] [address], [place] [address] 17 Mar, 2013 [facility] [address] [id number] [address] [place] [address], [place] [address] 16 Mar, 2013 [facility] [address] [id number] [address] [place] [address], [place] [address] 05 Mar, 2013 [facility] [address] [id number] [address] [place] [address], [place] [address] Feb, [facility] [address] [id number] [address] [place] [address], [place] [address] Feb, [facility] [address] [id number] [address] [place] [address], [place] [address] Feb, [facility] [address] [id number] [address] [place] [address], [place] [address] Feb, [facility] [address] [id number] [address] [place] [address], [place] [address] Jan, [facility] [address] [id number] [address] [place] [address], [place] [address] Jan, [facility] [address] [id number] [address] [place] [address], [place] [address] Jan, [facility] [address] [id number] [address] [place] [address], [place] [address] Jan, [facility] [address] [id number] [address] [place] [address], [place] [address] 16 Jan, 2013 [facility] [address] [id number] [address] [place] [address], [place] [address] Dec, [facility] [address] [id number] [address] [place] [address], [place] [address] Dec, [facility] [address] [id number] [address] [place] [address], [place] [address] Dec, [facility] [address] [id number] [address] [place] [address], [place] [address] November, [facility] [address] [id number] [address] [place] [address], [place] [address] November, [facility] [address] [id number] [address] [place] [address], [place] [address] November, [facility] [address] [id number] [address] [place] [address], [place] [address] Oct, [facility] [address] [id number] [address] [place] [address], [place] [address] Oct, [facility] [address] [id number] [address] [place] [address], [place] [address] Oct, [facility] [address] [id number] [address] [place] [address], [place] [address] Oct, [facility] [address] [id number] [address] [place] [address], [place] [address] 18 Oct, 2012 [facility] [address] [id number] [address] [place] [address], [place] [address] 17 Oct, 2012 [facility] [address] [id number] [address] [place] [address], [place] [address] 15 Oct, 2012 [facility] [address] [id number] [address] [place] [address], [place] [address] 26 Sep, 2012 [facility] [address] [id number] [address] [place] [address], [place] [address] Sep, [facility] [address] [id number] [address] [place] [address], [place] [address] Sep, [facility] [address] [id number] [address] [place] [address], [place] [address] Sep, [facility] [address] [id number] [address] [place] [address], [place] [address] Aug, [facility] [address] [id number] [address] [place] [address], [place] [address] Aug, [facility] [address] [id number] [address] [place] [address], [place] [address] Aug, [facility] [address] [id number] [address] [place] [address], [place] [address] Aug, [facility] [address] [id number] [address] [place] [address], [place] [address] Aug, [facility] [address] [id number] [address] [place] [address], [place] [address] Aug, [facility] [address] [id number] [address] [place] [address], [place] [address] Jul, [facility] [address] [id number] [address] [place] [address], [place] [address] Jul, [facility] [address] [id number] [address] [place] [address], [place] [address] Jul, [facility] [address] [id number] [address] [place] [address], [place] [address] Jul, [facility] [address] [id number] [address] [place] [address], [place] [address] Jul, [facility] [address] [id number] [address] [place] [address], [place] [address] Jul, [facility] [address] [id number] [address] [place] [address], [place] [address] Jun, [facility] [address] [id number] [address] [place] [address], [place] [address] Jun, [facility] [address] [id number] [address] [place] [address], [place] [address] Jun, [facility] [address] [id number] [address] [place] [address], [place] [address] Jun, [facility] [address] [id number] [address] [place] [address], [place] [address] Jun, [facility] [address] [id number] [address] [place] [address], [place] [address] Jun, [facility] [address] [id number] [address] [place] [address], [place] [address] May, [facility] [address] [id number] [address] [place] [address], [place] [address] May, [facility] [address] [id number] [address] [place] [address], [place] [address] May, [facility] [address] [id number] [address] [place] [address], [place] [address] May, [facility] [address] [id number] [address] [place] [address], [place] [address] May, [facility] [address] [id number] [address] [place] [address], [place] [address] May, [facility] [address] [id number] [address] [place] [address], [place] [address] May, [facility] [address] [id number] [address] [place] [address], [place] [address] May, [facility] [address] [id number] [address] [place] [address], [place] [address] May, [facility] [address] [id number] [address] [place] [address], [place] [address] May, [facility] [address] [id number] [address] [place] [address], [place] [address] Apr, [facility] [address] [id number] [address] [place] [address], [place] [address] 31 Apr, 2012 [facility] [address] [id number] [address] [place] [address], [place] [address] 23 Apr, 2012 [facility] [address] [id number] [address] [place] [address], [place] [address] 23 Apr, 2012 [facility] [address] [id number] [address] [place] [address], [place] [address] 16 Apr, 2012 [facility] [address] [id number] [address] [place] [address], [place] [address] 16 Apr, 2012 [facility] [address] [id number] [address] [place] [address], [place] [address] 15 Apr, 2012 [facility] [address] [id number] [address] [place] [address], [place] [address] 15 Apr, 2012 [facility] [address] [id number] [address] [place] [address], [place] [address] 05 Apr, 2012 [facility] [address] [id number] [address] [place] [address], [place] [address] 28 Mar, 2012 [facility] [address] [id number] [address] [place] [address], [place] [address] 26 Mar, 2012 [facility] [address] [id number] [address] [place] [address], [place] [address] 25 Sep2011 [facility] [address] [id number] [address] [place] [address], [place] [address] 19 Sep, 2011 [facility] [address] [id number] [address] [place] [address], [place] [address] 18 Sep2011 [facility] [address] [id number] [address] [place] [address], [place] [address] 05 Mar, 2012 [facility] [address] [id number] [address] [place] [address], [place] [address] 28 Feb, 2012 [facility] [address] [id number] [address] [place] [address], [place] [address] Feb, [facility] [address] [id number] [address] [place] [address], [place] [address] Feb, [facility] [address] [id number] [address] [place] [address], [place] [address] Jan, [facility] [address] [id number] [address] [place] [address], [place] [address] Jan, [facility] [address] [id number] [address] [place] [address], [place] [address] Jan, [facility] [address] [id number] [address] [place] [address], [place] [address] Jan, [facility] [address] [id number] [address] [place] [address], [place] [address] Dec, [facility] [address] [id number] [address] [place] [address], [place] [address] November, [facility] [address] [id number] [address] [place] [address], [place] [address] November, [facility] [address] [id number] [address] [place] [address], [place] [address] November, [facility] [address] [id number] [address] [place] [address], [place] [address] November, [facility] [address] [id number] [address] [place] [address], [place] [address] November, [facility] [address] [id number] [address] [place] [address], [place] [address] November, [facility] [address] [id number] [address] [place] [address], [place] [address] Oct, [facility] [address] [id number] [address] [place] [address], [place] [address] Oct, [facility] [address] [id number] [address] [place] [address], [place] [address] Sep, [facility] [address] [id number] [address] [place] [address], [place] [address] Sep, [facility] [address] [id number] [address] [place] [address], [place] [address] Sep, [facility] [address] [id number] [address] [place] [address], [place] [address] Aug, [facility] [address] [id number] [address] [place] [address], [place] [address] Aug, [facility] [address] [id number] [address] [place] [address], [place] [address] Aug, [facility] [address] [id number] [address] [place] [address], [place] [address] Aug, [facility] [address] [id number] [address] [place] [address], [place] [address] Aug, [facility] [address] [id number] [address] [place] [address], [place] [address] Aug, [facility] [address] [id number] [address] [place] [address], [place] [address] Jul, [facility] [address] [id number] [address] [place] [address], [place] [address] Jul, [facility] [address] [id number] [address] [place] [address], [place] [address] Jul, [facility] [address] [id number] [address] [place] [address], [place] [address] Jul, [facility] [address] [id number] [address] [place] [address], [place] [address] Jul, [facility] [address] [id number] [address] [place] [address], [place] [address] Jul, [facility] [address] [id number] [address] [place] [address], [place] [address] Jul, [facility] [address] [id number] [address] [place] [address] [address] Jul, [facility] [address] [id number] [address] [place] [address], [place] [address] Jul, [facility] [address] [id number] [address] [place] [address], [place] [address] Jul, [facility] [address] [id number] [address] [place] [address], [place] [address] Jun, [facility] [address] [id number] [address] [place] [address], [place] [address] Jun, [facility] [address] [id number] [address] [place] [address], [place] [address] Jun, [facility] [address] [id number] [address] [place] [address], [place] [address] Jun, [facility] [address] [id number] [address] [place] [address], [place] [address] May, [facility] [address] [id number] [address] [place] [address], [place] [address] May, [facility] [address] [id number] [address] [place] [address], [place] [address] May, [facility] [address] [id number] [address] [place] [address], [place] [address] May, [facility] [address] [id number] [address] [place] [address], [place] [address] Apr, [facility] [address] [id number] [address] [place] [address] Apr, [facility] [address] [id number] [address] [place] [address], [place] [address] November, [facility] [address] [id number] [address] [place] [address], [place] [address] Oct, [facility] [address] [id number] [address] [place] [address], [place] [address] Aug, [facility] [address] [id number] [address] [place] [address], [place] [address] 28 Jun, 2010 [facility] [address] [id number] [address] [place] [address], [place] [address] 28 Jun, 2010 [facility] [address] [id number] [address] [place] [address], [place] [address] 27 Jun, 2010 [facility] [address] [id number] [address] [place] [address], [place] [address] 03 Jun, 2010 [facility] [address] [id number] [address] [place] [address], [place] [address] 29 May, 2010 [facility] [address] [id number] [address] [place] [address], [place] [address] 27 Apr, 2010 [facility] [address] [id number] [address] [place] [address], [place] [address] 13 Oct, 2009 [facility] [address] [id number] [address] [place] [address], [place] [address] 13 Aug, 2009 [facility] [address] [id number] [address] [place] [address], [place] [address] 20 Jul, 2009 [facility] [address] [id number] [address] [place] [address], [place] [address] 22 Jun, 2009 [facility] [address] [id number] [address] [place] [address], [place] [address] 16 Jun, 2009 [facility] [address] [id number] [address] [place] [address], [place] [address] 14 Jun, 2009 [facility] [address] [id number] [address] [place] [address], [place] [address] 14 Jun, 2009 [facility] [address] [id number] [address] [place] [address], [place] [address] 09 May, 2009 [facility] [address] [id number] [address] [place] [address], [place] [address] 20 Apr, 2009 [facility] [address] [id number] [address] [place] [address], [place] [address] 15 Mar, 2009 [facility] [address] [facility] [id number] [address] [place] [address] 14 Mar, 2009 [facility] [address] [facility] [id number] [address] [place] [address] Dec, IMMUNIZATIONS No Known Immunizations SOCIAL HISTORY Never Assessed REASON FOR VISIT Controlled Med Refill 07/23/17 PLAN OF CARE VITAL SIGNS MEDICATIONS Medication [...]
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
--- OUTSIDE RECORDS SUMMARY | 2019-09-01 05:40 | XMS REPORT ---
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 [place] [address] Apr, [facility] [address] [id number] [address] [place] [address], [place] [address] Apr, [facility] [address] [id number] [address] [place] [address] Apr, [facility] [address] [id number] [address] [place] [address], [place] [address] Apr, [facility] [address] [id number] [address] [place] [address], [place] [address] 02 Apr, 2014 [facility] [address] [id number] [address] [place] [address], [place] [address] Mar, 2013 [facility] [address] [id number] [address] [place] [address], [place] [address] Mar, 2013 [facility] [address] [id number] [address] [place] [address], [place] [address] Mar, 2013 [facility] [address] [id number] [address] [place] [address], [place] [address] Mar, 2013 [facility] [address] [id number] [address] [place] [address], [place] [address] Mar, 2013 [facility] [address] [id number] [address] [place] [address], [place] [address] Mar, 2013 [facility] [address] [id number] [address] [place] [address], [place] [address] Mar, 2013 [facility] [address] [id number] [address] [place] [address], [place] [address] Mar, 2013 [facility] [address] [id number] [address] [place] [address], [place] [address] Mar, 2013 [facility] [address] [id number] [address] [place] [address], [place] [address] Mar, 2013 [facility] [address] [id number] [address] [place] [address], [place] [address] Mar, 2013 [facility] [address] [id number] [address] [place] [address], [place] [address] Mar, 2013 [facility] [address] [id number] [address] [place] [address], [place] [address] Feb, [facility] [address] [id number] [address] [place] [address], [place] [address] Feb, [facility] [address] [id number] [address] [place] [address], [place] [address] Jan, [facility] [address] [id number] [address] [place] [address], [place] [address] Jan, [facility] [address] [id number] [address] [place] [address], [place] [address] Jan, [facility] [address] [id number] [address] [place] [address], [place] [address] Jan, [facility] [address] [id number] [address] [place] [address], [place] [address] Dec, [facility] [address] [id number] [address] [place] [address], [place] [address] Dec, [facility] [address] [id number] [address] [place] [address], [place] [address] Dec, [facility] [address] [id number] [address] [place] [address], [place] [address] Dec, [facility] [address] [id number] [address] [place] [address], [place] [address] Dec, [facility] [address] [id number] [address] [place] [address], [place] [address] Dec, [facility] [address] [id number] [address] [place] [address], [place] [address] November, [facility] [address] [id number] [address] [place] [address], [place] [address] November, [facility] [address] [id number] [address] [place] [address], [place] [address] November, [facility] [address] [id number] [address] [place] [address], [place] [address] November, [facility] [address] [id number] [address] [place] [address], [place] [address] November, [facility] [address] [id number] [address] [place] [address], [place] [address] November, [address] [id number] November, [facility] [address] [id number] [address] [place] [address], [place] [address] November, [facility] [address] [id number] [address] [place] [address], [place] [address] November, [facility] [address] [id number] [address] [place] [address], [place] [address] November, [facility] [address] [id number] [address] [place] [address], [place] [address] November, [facility] [address] [id number] [address] [place] [address], [place] [address] November, [facility] [address] [id number] [address] [place] [address], [place] [address] Oct, [facility] [address] [id number] [address] [place] [address], [place] [address] Oct, [facility] [address] [id number] [address] [place] [address], [place] [address] Oct, [facility] [address] [id number] [address] [place] [address], [place] [address] Oct, [facility] [address] [id number] [address] [place] [address], [place] [address] Oct, [facility] [address] [id number] [address] [place] [address], [place] [address] Oct, [facility] [address] [id number] [address] [place] [address], [place] [address] Oct, [facility] [address] [id number] [address] [place] [address], [place] [address] Oct, [facility] [address] [id number] [address] [place] [address], [place] [address] Oct, [facility] [address] [id number] [address] [place] [address], [place] [address] Oct, [facility] [address] [id number] [address] [place] [address], [place] [address] Oct, [facility] [address] [id number] [facility] [address] Oct, [facility] [address] [id number] [address] [place] [address], [place] [address] Oct, [facility] [address] [id number] [address] [place] [address], [place] [address] Oct, [facility] [address] [id number] [address] [place] [address], [place] [address] Oct, [facility] [address] [id number] [address] [place] [address], [place] [address] Sep, [facility] [address] [id number] [address] [place] [address], [place] [address] Sep, [facility] [address] [id number] [address] [place] [address], [place] [address] Sep, [facility] [address] [id number] [address] [place] [address], [place] [address] Sep, [facility] [address] [id number] [address] [place] [address], [place] [address] Aug, [facility] [address] [id number] [address] [place] [address], [place] [address] Aug, [facility] [address] [id number] [address] [place] [address], [place] [address] Aug, [facility] [address] [id number] [address] [place] [address], [place] [address] Aug, [facility] [address] [id number] [address] [place] [address], [place] [address] Jul, [facility] [address] [id number] [address] [place] [address], [place] [address] Jul, [facility] [address] [id number] [address] [place] [address], [place] [address] Jul, [facility] [address] [id number] [address] [place] [address], [place] [address] Jul, [facility] [address] [id number] [address] [place] [address], [place] [address] Jul, [facility] [address] [id number] [address] [place] [address], [place] [address] Jul, [facility] [address] [id number] [address] [place] [address], [place] [address] Jul, [facility] [address] [id number] [address] [place] [address], [place] [address] Jul, [facility] [address] [id number] [address] [place] [address], [place] [address] Jul, [facility] [address] [id number] [address] [place] [address], [place] [address] Jul, [facility] [address] [id number] [address] [place] [address], [place] [address] Jul, [facility] [address] [id number] [address] [place] [address], [place] [address] Jul, [facility] [address] [id number] [address] [place] [address], [place] [address] Jul, [facility] [address] [id number] [address] [place] [address], [place] [address] Jul, [facility] [address] [id number] [address] [place] [address], [place] [address] Jun, [facility] [address] [id number] [address] [place] [address], [place] [address] Jun, [facility] [address] [id number] [address] [place] [address], [place] [address] Jun, [facility] [address] [id number] [address] [place] [address], [place] [address] Jun, [facility] [address] [id number] [address] [place] [address] May, [facility] [address] [id number] [address] [place] [address], [place] [address] May, [facility] [address] [id number] [address] [place] [address] May, [facility] [address] [id number] [address] [place] [address], [place] [address] May, [facility] [address] [id number] [address] [place] [address] May, [facility] [address] [id number] [address] [place] [address], [place] [address] May, [facility] [address] [id number] [address] [place] [address] May, [facility] [address] [id number] [address] [place] [address] May, [facility] [address] [id number] [address] [place] [address], [place] [address] Apr, [facility] [address] [id number] [address] [place] [address] Apr, [facility] [address] [id number] [address] [place] [address] Apr, [facility] [address] [id number] [address] [place] [address] Apr, [facility] [address] [id number] [address] [place] [address] Apr, [facility] [address] [address] [id number] [address] [place] [address] Apr, [facility] [address] [id number] [address] [place] [address] 30 Mar, 2013 [facility] [address] [id number] [address] [place] [address], [place] [address] Mar, [facility] [address] [id number] [address] [place] [address], [place] [address] 20 Mar, 2013 [facility] [address] [id number] [address] [place] [address], [place] [address] 17 Mar, 2013 [facility] [address] [id number] [address] [place] [address], [place] [address] 16 Mar, 2013 [facility] [address] [id number] [address] [place] [address], [place] [address] 05 Mar, 2013 [facility] [address] [id number] [address] [place] [address], [place] [address] Feb, [facility] [address] [id number] [address] [place] [address], [place] [address] Feb, [facility] [address] [id number] [address] [place] [address], [place] [address] Feb, [facility] [address] [id number] [address] [place] [address], [place] [address] Feb, [facility] [address] [id number] [address] [place] [address], [place] [address] Jan, [facility] [address] [id number] [address] [place] [address], [place] [address] Jan, [facility] [address] [id number] [address] [place] [address], [place] [address] Jan, [facility] [address] [id number] [address] [place] [address], [place] [address] Jan, [facility] [address] [id number] [address] [place] [address], [place] [address] Jan, [facility] [address] [id number] [address] [place] [address], [place] [address] Dec, [facility] [address] [id number] [address] [place] [address], [place] [address] Dec, [facility] [address] [id number] [address] [place] [address], [place] [address] Dec, [facility] [address] [id number] [address] [place] [address], [place] [address] November, [facility] [address] [id number] [address] [place] [address], [place] [address] November, [facility] [address] [id number] [address] [place] [address], [place] [address] November, [facility] [address] [id number] [address] [place] [address], [place] [address] Oct, [facility] [address] [id number] [address] [place] [address], [place] [address] Oct, [facility] [address] [id number] [address] [place] [address], [place] [address] Oct, [facility] [address] [id number] [address] [place] [address], [place] [address] Oct, [facility] [address] [id number] [address] [place] [address], [place] [address] Oct, [facility] [address] [id number] [address] [place] [address], [place] [address] Oct, [facility] [address] [id number] [address] [place] [address], [place] [address] Oct, [facility] [address] [id number] [address] [place] [address], [place] [address] Sep, [facility] [address] [id number] [address] [place] [address], [place] [address] Sep, [facility] [address] [id number] [address] [place] [address], [place] [address] Sep, [facility] [address] [id number] [address] [place] [address], [place] [address] Sep, [facility] [address] [id number] [address] [place] [address], [place] [address] Aug, [facility] [address] [id number] [address] [place] [address], [place] [address] Aug, [facility] [address] [id number] [address] [place] [address], [place] [address] Aug, [facility] [address] [id number] [address] [place] [address], [place] [address] Aug, [facility] [address] [id number] [address] [place] [address], [place] [address] Aug, [facility] [address] [id number] [address] [place] [address], [place] [address] Aug, [facility] [address] [id number] [address] [place] [address], [place] [address] Jul, [facility] [address] [id number] [address] [place] [address], [place] [address] Jul, [facility] [address] [id number] [address] [place] [address], [place] [address] Jul, [facility] [address] [id number] [address] [place] [address], [place] [address] Jul, [facility] [address] [id number] [address] [place] [address], [place] [address] Jul, [facility] [address] [id number] [address] [place] [address], [place] [address] Jul, [facility] [address] [id number] [address] [place] [address], [place] [address] Jun, [facility] [address] [id number] [address] [place] [address], [place] [address] Jun, [facility] [address] [id number] [address] [place] [address], [place] [address] Jun, [facility] [address] [id number] [address] [place] [address], [place] [address] Jun, [facility] [address] [id number] [address] [place] [address], [place] [address] Jun, [facility] [address] [id number] [address] [place] [address], [place] [address] Jun, [facility] [address] [id number] [address] [place] [address], [place] [address] May, [facility] [address] [id number] [address] [place] [address], [place] [address] May, [facility] [address] [id number] [address] [place] [address], [place] [address] May, [facility] [address] [id number] [address] [place] [address], [place] [address] May, [facility] [address] [id number] [address] [place] [address], [place] [address] May, [facility] [address] [id number] [address] [place] [address], [place] [address] May, [facility] [address] [id number] [address] [place] [address], [place] [address] May, [facility] [address] [id number] [address] [place] [address], [place] [address] May, [facility] [address] [id number] [address] [place] [address], [place] [address] May, [facility] [address] [id number] [address] [place] [address], [place] [address] May, [facility] [address] [id number] [address] [place] [address] Apr, [facility] [address] [id number] [address] [place] [address], [place] [address] Apr, [facility] [address] [id number] [address] [place] [address], [place] [address] Apr, [facility] [address] [id number] [address] [place] [address], [place] [address] Apr, [facility] [address] [id number] [address] [place] [address] 16 Apr, 2012 [facility] [address] [id number] [address] [place] [address], [place] [address] 16 Apr, 2012 [facility] [address] [id number] [address] [place] [address], [place] [address] 15 Apr, 2012 [facility] [address] [id number] [address] [place] [address], [place] [address] 15 Apr, 2012 [facility] [address] [id number] [address] [place] [address], [place] [address] 05 Apr, 2012 [facility] [address] [id number] [address] [place] [address], [place] [address] 28 Mar, 2012 [facility] [address] [id number] [address] [place] [address], [place] [address] 26 Mar, 2012 [facility] [address] [id number] [address] [place] [address], [place] [address] 25 Mar, 2012 [facility] [address] [id number] [address] [place] [address], [place] [address] 19 Mar, 2012 [facility] [address] [id number] [address] [place] [address], [place] [address] 18 Mar, 2012 [facility] [address] [id number] [address] [place] [address], [place] [address] 05 Mar, 2012 [facility] [address] [id number] [address] [place] [address], [place] [address] 28 Feb, 2012 [facility] [address] [id number] [address] [place] [address], [place] [address] Feb, [facility] [address] [id number] [address] [place] [address], [place] [address] Feb, [facility] [address] [id number] [address] [place] [address], [place] [address] Jan, [facility] [address] [id number] [address] [place] [address], [place] [address] Jan, [facility] [address] [id number] [address] [place] [address], [place] [address] Jan, [facility] [address] [id number] [address] [place] [address], [place] [address] Jan, [facility] [address] [id number] [address] [place] [address], [place] [address] Dec, [facility] [address] [id number] [address] [place] [address], [place] [address] November, [facility] [address] [id number] [address] [place] [address], [place] [address] November, [facility] [address] [id number] [address] [place] [address], [place] [address] November, [facility] [address] [id number] [address] [place] [address], [place] [address] November, [facility] [address] [id number] [address] [place] [address], [place] [address] November, [facility] [address] [id number] [address] [place] [address], [place] [address] November, [facility] [address] [id number] [address] [place] [address], [place] [address] Oct, [facility] [address] [id number] [address] [place] [address], [place] [address] Oct, [facility] [address] [id number] [address] [place] [address], [place] [address] Sep, [facility] [address] [id number] [address] [place] [address], [place] [address] Sep, [facility] [address] [id number] [address] [place] [address], [place] [address] Sep, [facility] [address] [id number] [address] [place] [address], [place] [address] Aug, [facility] [address] [id number] [address] [place] [address], [place] [address] Aug, 2011 [facility] [address] [id number] [address] [place] [address], [place] [address] 14 Aug, 2011 [facility] [address] [id number] [address] [place] [address], [place] [address] Aug, [facility] [address] [id number] [address] [place] [address], [place] [address] Aug, [facility] [address] [id number] [address] [place] [address], [place] [address] Aug, [facility] [address] [id number] [address] [place] [address], [place] [address] Jul, [facility] [address] [id number] [address] [place] [address], [place] [address] Jul, [facility] [address] [id number] [address] [place] [address], [place] [address] Jul, [facility] [address] [id number] [address] [place] [address], [place] [address] Jul, [facility] [address] [id number] [address] [place] [address], [place] [address] Jul, [facility] [address] [id number] [address] [place] [address], [place] [address] Jul, [facility] [address] [id number] [address] [place] [address], [place] [address] Jul, [facility] [address] [id number] [address] [place] [address], [place] [address] Jul, [facility] [address] [id number] [address] [place] [address], [place] [address] Jul, [facility] [address] [id number] [address] [place] [address], [place] [address] Jul, [facility] [address] [id number] [address] [place] [address], [place] [address] Jun, [facility] [address] [id number] [address] [place] [address], [place] [address] Jun, [facility] [address] [id number] [address] [place] [address], [place] [address] Jun, [facility] [address] [id number] [address] [place] [address], [place] [address] Jun, [facility] [address] [id number] [address] [place] [address], [place] [address] May, [facility] [address] [id number] [address] [place] [address], [place] [address] May, [facility] [address] [id number] [address] [place] [address], [place] [address] May, [facility] [address] [id number] [address] [place] [address], [place] [address] May, [facility] [address] [id number] [address] [place] [address], [place] [address] Apr, [facility] [address] [id number] [address] [place] [address], [place] [address] Apr, [facility] [address] [id number] [address] [place] [address], [place] [address] November, [facility] [address] [id number] [address] [place] [address], [place] [address] Oct, [facility] [address] [id number] [address] [place] [address], [place] [address] Aug, [facility] [address] [id number] [address] [place] [address], [place] [address] Jun, [facility] [address] [id number] [address] [place] [address], [place] [address] Jun, [facility] [address] [id number] [address] [place] [address], [place] [address] Jun, [facility] [address] [id number] [address] [place] [address], [place] [address] 03 Jun, 2010 [facility] [address] [id number] [address] [place] [address] 29 May, 2010 [facility] [address] [id number] [address] [place] [address] 27 Apr, 2010 [facility] [address] [id number] [address] [place] [address] 13 Oct, 2009 [facility] [address] [id number] [address] [place] [address] 13 Aug, 2009 [facility] [address] [id number] [address] [place] [address] Jul, [facility] [address] [id number] [address] [place] [address] 22 Jun, 2009 [facility] [address] [id number] [address] [place] [address] 16 Jun, 2009 [facility] [address] [id number] [address] [place] [address] 14 Jun, 2009 [facility] [address] [id number] [address] [place] [address] 14 Jun, 2009 [facility] [address] [id number] [address] [place] [address] 09 May, 2009 [facility] [address] [id number] [address] [place] [address] 20 Apr, 2009 [facility] [address] [id number] [address] [place] [address] 15 Mar, 2009 [facility] [address] [id number] [address] [place] [address] 14 Mar, 2009 [facility] [address] [facility] [id number] [address] [place] [address] 11 Dec, 2008 IMMUNIZATIONS No Known Immunizations SOCIAL HISTORY Never Assessed REASON FOR VISIT f/u PLAN OF CARE Activity Details Follow Up 4 Weeks Reason: VITAL SIGNS MEDICATIONS Unknown Medications RESULTS No Results PROCEDURES Procedure Date Ordered Result Body Site [facility] VISIT MENTAL HEALTH ESTAB PT Feb 10, 2017 Psychotherapy, patient &/family, 30 minutes, established patient Feb 10, 2017 INSTRUCTIONS MEDICATIONS ADMINISTERED No Known [...]
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
--- OUTSIDE RECORDS SUMMARY | 2019-09-01 05:40 | XMS REPORT ---
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 [place] [address] Apr, [facility] [address] [id number] [address] [place] [address], [place] [address] Apr, [facility] [address] [id number] [address] [place] [address], [place] [address] Apr, [facility] [address] [id number] [address] [place] [address], [place] [address] Apr, [facility] [address] [id number] [address] [place] [address], [place] [address] Apr, [facility] [address] [id number] [address] [place] [address], [place] [address] 29 Mar, 2013 [facility] [address] [id number] [address] [place] [address], [place] [address] 29 Mar, 2013 [facility] [address] [id number] [address] [place] [address], [place] [address] 29 Mar, 2013 [facility] [address] [id number] [address] [place] [address], [place] [address] 29 Mar, 2013 [facility] [address] [id number] [address] [place] [address], [place] [address] 10 Mar, 2013 [facility] [address] [id number] [address] [place] [address], [place] [address] 10 Mar, 2013 [facility] [address] [id number] [address] [place] [address], [place] [address] 04 Sep, 2013 [facility] [address] [id number] [address] [place] [address], [place] [address] 04 Sep, 2013 [facility] [address] [id number] [address] [place] [address], [place] [address] Mar, 2013 [facility] [address] [id number] [address] [place] [address], [place] [address] Mar, 2013 [facility] [address] [id number] [address] [place] [address], [place] [address] Mar, [facility] [address] [id number] [address] [place] [address], [place] [address] Mar, [facility] [address] [id number] [address] [place] [address], [place] [address] Feb, [facility] [address] [id number] [address] [place] [address], [place] [address] Feb, [facility] [address] [id number] [address] [place] [address], [place] [address] Jan, [facility] [address] [id number] [address] [place] [address], [place] [address] Jan, [facility] [address] [id number] [address] [place] [address], [place] [address] Jan, [facility] [address] [id number] [address] [place] [address], [place] [address] Jan, [facility] [address] [id number] [address] [place] [address], [place] [address] Dec, [facility] [address] [id number] [address] [place] [address], [place] [address] Dec, [facility] [address] [id number] [address] [place] [address], [place] [address] Dec, [facility] [address] [id number] [address] [place] [address], [place] [address] Dec, [facility] [address] [id number] [address] [place] [address], [place] [address] Dec, [facility] [address] [id number] [address] [place] [address], [place] [address] Dec, [facility] [address] [id number] [address] [place] [address], [place] [address] November, [facility] [address] [id number] [address] [place] [address], [place] [address] November, [facility] [address] [id number] [address] [place] [address], [place] [address] November, [facility] [address] [id number] [address] [place] [address], [place] [address] November, [facility] [address] [id number] [address] [place] [address], [place] [address] November, [facility] [address] [id number] [address] [place] [address], [place] [address] November, [address] [id number] November, [facility] [address] [id number] [address] [place] [address], [place] [address] November, [facility] [address] [id number] [address] [place] [address], [place] [address] November, [facility] [address] [id number] [address] [place] [address], [place] [address] November, [facility] [address] [id number] [address] [place] [address], [place] [address] November, [facility] [address] [id number] [address] [place] [address], [place] [address] November, [facility] [address] [id number] [address] [place] [address], [place] [address] Oct, [facility] [address] [id number] [address] [place] [address], [place] [address] Oct, [facility] [address] [id number] [address] [place] [address], [place] [address] Oct, [facility] [address] [id number] [address] [place] [address], [place] [address] Oct, [facility] [address] [id number] [address] [place] [address], [place] [address] Oct, [facility] [address] [id number] [address] [place] [address], [place] [address] Oct, [facility] [address] [id number] [address] [place] [address], [place] [address] Oct, [facility] [address] [id number] [facility] [place] [address] Oct, [facility] [address] [id number] [facility] [place] [address] Oct, [facility] [address] [id number] [address] [place] [address], [place] [address] Oct, [facility] [address] [id number] [address] [place] [address], [place] [address] Oct, [facility] [address] [id number] [address] [place] [address], [place] [address] Oct, [facility] [address] [id number] [address] [place] [address], [place] [address] Oct, [facility] [address] [id number] [address] [place] [address], [place] [address] Oct, [facility] [address] [id number] [address] [place] [address], [place] [address] Oct, [facility] [address] [id number] [address] [place] [address], [place] [address] Sep, [facility] [address] [id number] [address] [place] [address], [place] [address] Sep, [facility] [address] [id number] [address] [place] [address], [place] [address] Sep, [facility] [address] [id number] [address] [place] [address], [place] [address] Sep, [facility] [address] [id number] [address] [place] [address], [place] [address] Aug, [facility] [address] [id number] [address] [place] [address], [place] [address] Aug, [facility] [address] [id number] [address] [place] [address], [place] [address] Aug, [facility] [address] [id number] [address] [place] [address], [place] [address] Aug, [facility] [address] [id number] [address] [place] [address], [place] [address] Jul, [facility] [address] [id number] [address] [place] [address], [place] [address] Jul, [facility] [address] [id number] [address] [place] [address], [place] [address] Jul, [facility] [address] [id number] [address] [place] [address], [place] [address] Jul, [facility] [address] [id number] [address] [place] [address], [place] [address] Jul, [facility] [address] [id number] [address] [place] [address], [place] [id number] Jul, [facility] [address] [id number] [address] [place] [address], [place] [address] Jul, [facility] [address] [id number] [address] [place] [address], [place] [address] Jul, [facility] [address] [id number] [address] [place] [address], [place] [id number] Jul, [facility] [address] [id number] [address] [place] [address], [place] [id number] Jul, [facility] [address] [id number] [address] [place] [address], [place] [id number] Jul, [facility] [address] [id number] [address] [place] [address], [place] [address] Jul, [facility] [address] [id number] [address] [place] [address], [place] [id number] Jul, [facility] [address] [id number] [address] [place] [address], [place] [id number] Jul, [facility] [address] [id number] [address] [place] [id number] Jun, [facility] [address] [id number] [address] [place] [address], [place] [id number] Jun, [facility] [address] [id number] [address] [place] [id number] Jun, [facility] [address] [id number] [address] [place] [phone] Jun, [facility] [address] [id number] [address] [place] [phone] May, [facility] [address] [id number] [address] [place] [address], [place] [address] May, [facility] [address] [id number] [address] [place] [id number] May, [facility] [address] [id number] [address] [place] [phone] May, [facility] [address] [id number] [address] [place] [phone] May, [facility] [address] [id number] [address] [place] [id number] May, [facility] [address] [id number] [address] [place] [phone] May, [facility] [address] [id number] [address] [place] [phone] May, [facility] [address] [id number] [address] [place] [phone] Apr, [facility] [address] [id number] [address] [place] [phone] Apr, [facility] [address] [id number] [address] [place] [phone] Apr, [facility] [address] [id number] [address] [place] [phone] Apr, [facility] [address] [id number] [address] [place] [address], [place] [address] Apr, [facility] [address] [id number] [address] [place] [address], [place] [id number] Apr, [facility] [address] [id number] [address] [place] [address], [place] [id number] 30 Mar, 2013 [facility] [address] [id number] [address] [place] [address], [place] [id number] 26 Mar, 2012 [facility] [address] [id number] [address] [place] [address], [place] [id number] 20 Mar, 2012 [facility] [address] [id number] [address] [place] [address], [place] [id number] 17 Mar, 2013 [facility] [address] [id number] [address] [place] [address], [place] [id number] 16 Mar, 2013 [facility] [address] [id number] [address] [place] [address], [place] [id number] 05 Mar, 2013 [facility] [address] [id number] [address] [place] [address], [place] [id number] Feb, [facility] [address] [id number] [address] [place] [address], [place] [phone] Feb, [facility] [address] [id number] [address] [place] [address], [place] [id number] Feb, [facility] [address] [id number] [address] [place] [address], [place] [id number] Feb, [facility] [address] [id number] [address] [place] [address], [place] [id number] Jan, [facility] [address] [id number] [address] [place] [address], [place] [id number] Jan, [facility] [address] [id number] [address] [place] [address], [place] [phone] Jan, [facility] [address] [id number] [address] [place] [address], [place] [id number] Jan, [facility] [address] [id number] [address] [place] [address], [place] [id number] 16 Jan, 2013 [facility] [address] [id number] [address] [place] [address], [place] [address] Dec, [facility] [address] [id number] [address] [place] [address], [place] [id number] Dec, [facility] [address] [id number] [address] [place] [address], [place] [id number] Dec, [facility] [address] [id number] [address] [place] [address], [place] [address] November, [facility] [address] [id number] [address] [place] [address], [place] [id number] November, [facility] [address] [id number] [address] [place] [address], [place] [id number] November, [facility] [address] [id number] [address] [place] [address], [place] [id number] Oct, [facility] [address] [id number] [address] [place] [address], [place] [id number] Oct, [facility] [address] [id number] [address] [place] [address], [place] [id number] Oct, [facility] [address] [id number] [address] [place] [address], [place] [id number] Oct, [facility] [address] [id number] [address] [place] [address], [place] [id number] 18 Oct, 2012 [facility] [address] [id number] [address] [place] [address], [place] [id number] 17 Oct, 2012 [facility] [address] [id number] [address] [place] [address], [place] [id number] 15 Oct, 2012 [facility] [address] [id number] [address] [place] [address], [place] [address] Sep, [facility] [address] [id number] [address] [place] [address], [place] [address] 13 Sep, 2012 [facility] [address] [id number] [address] [place] [address], [place] [address] Sep, [facility] [address] [id number] [address] [place] [address], [place] [address] Sep, [facility] [address] [id number] [address] [place] [address], [place] [address] Aug, [facility] [address] [id number] [address] [place] [address], [place] [address] Aug, [facility] [address] [id number] [address] [place] [address], [place] [address] Aug, [facility] [address] [id number] [address] [place] [address], [place] [address] Aug, [facility] [address] [id number] [address] [place] [address], [place] [address] Aug, [facility] [address] [id number] [address] [place] [address], [place] [address] Aug, [facility] [address] [id number] [address] [place] [address], [place] [address] Jul, [facility] [address] [id number] [address] [place] [address], [place] [address] Jul, [facility] [address] [id number] [address] [place] [address], [place] [address] Jul, [facility] [address] [id number] [address] [place] [address], [place] [address] Jul, [facility] [address] [id number] [address] [place] [address], [place] [address] Jul, [facility] [address] [id number] [address] [place] [address], [place] [address] Jul, [facility] [address] [id number] [address] [place] [address], [place] [address] Jun, [facility] [address] [id number] [address] [place] [address], [place] [address] Jun, [facility] [address] [id number] [address] [place] [address], [place] [address] Jun, [facility] [address] [id number] [address] [place] [address], [place] [address] Jun, [facility] [address] [id number] [address] [place] [address], [place] [address] Jun, [facility] [address] [id number] [address] [place] [address], [place] [address] Jun, [facility] [address] [id number] [address] [place] [address], [place] [address] May, [facility] [address] [id number] [address] [place] [address], [place] [address] May, [facility] [address] [id number] [address] [place] [address], [place] [address] May, [facility] [address] [id number] [address] [place] [address], [place] [address] May, [facility] [address] [id number] [address] [place] [address], [place] [address] May, [facility] [address] [id number] [address] [place] [address], [place] [address] May, [facility] [address] [id number] [address] [place] [address], [place] [address] May, [facility] [address] [id number] [address] [place] [address], [place] [address] May, [facility] [address] [id number] [address] [place] [address], [place] [address] May, [facility] [address] [id number] [address] [place] [address], [place] [address] May, [facility] [address] [id number] [address] [place] [id number] 31 Apr, 2012 [facility] [address] [id number] [address] [place] [address], [place] [address] 31 Apr, 2012 [facility] [address] [id number] [address] [place] [id number] 23 Apr, 2012 [facility] [address] [id number] [address] [place] [address], [place] [address] 23 Apr, 2012 [facility] [address] [id number] [address] [place] [address], [place] [address] 16 Apr, 2012 [facility] [address] [id number] [address] [place] [address], [place] [address] 16 Apr, 2012 [facility] [address] [id number] [address] [place] [address], [place] [address] 15 Apr, 2012 [facility] [address] [id number] [address] [place] [id number] 15 Apr, 2012 [facility] [address] [id number] [address] [place] [address], [place] [id number] 05 Apr, 2012 [facility] [address] [id number] [address] [place] [address], [place] [address] 28 Mar, 2012 [facility] [address] [id number] [address] [place] [id number] 26 Mar, 2012 [facility] [address] [id number] [address] [place] [address], [place] [id number] 25 Mar, 2012 [facility] [address] [id number] [address] [place] [id number] 19 Sep2011 [facility] [address] [id number] [address] [place] [address], [place] [address] 18 Mar, 2012 [facility] [address] [id number] [address] [place] [id number] 05 Mar, 2012 [facility] [address] [id number] [address] [place] [id number] 28 Feb, 2012 [facility] [address] [id number] [address] [place] [address], [place] [address] Feb, [facility] [address] [id number] [address] [place] [address], [place] [address] Feb, [facility] [address] [id number] [address] [place] [address], [place] [address] Jan, [facility] [address] [id number] [address] [place] [address], [place] [address] Jan, [facility] [address] [id number] [address] [place] [address], [place] [address] Jan, [facility] [address] [id number] [address] [place] [address], [place] [address] Jan, [facility] [address] [id number] [address] [place] [address], [place] [address] Dec, [facility] [address] [id number] [address] [place] [address], [place] [address] November, [facility] [address] [id number] [address] [place] [address], [place] [address] November, [facility] [address] [id number] [address] [place] [address], [place] [address] November, [facility] [address] [id number] [address] [place] [address], [place] [address] November, [facility] [address] [id number] [address] [place] [address], [place] [address] November, [facility] [address] [id number] [address] [place] [address], [place] [address] November, [facility] [address] [id number] [address] [place] [address], [place] [address] Oct, [facility] [address] [id number] [address] [place] [address], [place] [address] Oct, [facility] [address] [id number] [address] [place] [address], [place] [address] Sep, [facility] [address] [id number] [address] [place] [address], [place] [address] Sep, [facility] [address] [id number] [address] [place] [address], [place] [address] Sep, [facility] [address] [id number] [address] [place] [address], [place] [address] Aug, [facility] [address] [id number] [address] [place] [address], [place] [address] Aug, [facility] [address] [id number] [address] [place] [address], [place] [address] Aug, [facility] [address] [id number] [address] [place] [address], [place] [address] Aug, [facility] [address] [id number] [address] [place] [address], [place] [address] Aug, [facility] [address] [id number] [address] [place] [address], [place] [address] Aug, [facility] [address] [id number] [address] [place] [address], [place] [address] Jul, [facility] [address] [id number] [address] [place] [address], [place] [address] Jul, [facility] [address] [id number] [address] [place] [address], [place] [address] Jul, [facility] [address] [id number] [address] [place] [address], [place] [address] Jul, [facility] [address] [id number] [address] [place] [address], [place] [address] Jul, [facility] [address] [id number] [address] [place] [address], [place] [address] Jul, [facility] [address] [id number] [address] [place] [address], [place] [address] Jul, [facility] [address] [id number] [address] [place] [address], [place] [address] 12 Jul, 2011 [facility] [address] [id number] [address] [place] [address], [place] [address] Jul, [facility] [address] [id number] [address] [place] [address], [place] [address] Jul, [facility] [address] [id number] [address] [place] [address], [place] [address] Jun, [facility] [address] [id number] [address] [place] [address], [place] [address] Jun, [facility] [address] [id number] [address] [place] [address], [place] [address] Jun, [facility] [address] [id number] [address] [place] [address], [place] [address] Jun, [facility] [address] [id number] [address] [place] [address], [place] [address] May, [facility] [address] [id number] [address] [place] [address], [place] [address] May, [facility] [address] [id number] [address] [place] [address], [place] [address] May, [facility] [address] [id number] [address] [place] [address], [place] [address] May, [facility] [address] [id number] [address] [place] [address], [place] [address] Apr, [facility] [address] [id number] [address] [place] [address], [place] [address] Apr, [facility] [address] [id number] [address] [place] [address], [place] [address] November, [facility] [address] [id number] [address] [place] [address], [place] [address] Oct, [facility] [address] [id number] [address] [place] [address], [place] [address] 17 Aug, 2010 [facility] [address] [id number] [address] [place] [address], [place] [address] 28 Jun, 2010 [facility] [address] [id number] [address] [place] [address], [place] [address] 28 Jun, 2010 [facility] [address] [id number] [address] [place] [address], [place] [address] 27 Jun, 2010 [facility] [address] [id number] [address] [place] [address], [place] [address] 03 Jun, 2010 [facility] [address] [id number] [address] [place] [address], [place] [address] 29 May, 2010 [facility] [address] [id number] [address] [place] [address], [place] [address] 27 Apr, 2010 [facility] [address] [id number] [address] [place] [address], [place] [address] Oct, [facility] [address] [id number] [address] [place] [address], [place] [address] 13 Aug, 2009 [facility] [address] [id number] [address] [place] [address], [place] [address] Jul, [facility] [address] [id number] [address] [place] [address], [place] [address] 22 Jun, 2009 [facility] [address] [id number] [address] [place] [address], [place] [address] 16 Jun, 2009 [facility] [address] [id number] [address] [place] [address], [place] [address] 14 Jun, 2009 [facility] [address] [id number] [address] [place] [address], [place] [address] 14 Jun, 2009 [facility] [address] [id number] [address] [place] [address], [place] [address] 09 May, 2009 [facility] [address] [id number] [address] [place] [address], [place] [address] 20 Apr, 2009 [facility] [address] [id number] [address] [place] [id number] 15 Mar, 2009 [facility] [address] [facility] [id number] [address] [place] [id number] 14 Mar, 2009 [facility] [address] [facility] [id number] [address] [place] [id number] 11 Dec, 2008 IMMUNIZATIONS No Known Immunizations SOCIAL HISTORY Never Assessed REASON FOR VISIT Controlled Med [id number] PLAN OF CARE VITAL SIGNS MEDICATIONS Medication [...]
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
--- OUTSIDE RECORDS SUMMARY | 2019-09-01 05:41 | XMS REPORT ---
Author Olivia Eason Organization [employer] Address Unknown Phone Unavailable Care Team Providers Care [employer] Transit Operator Name Role Phone TYRELL BARILLAS CP [...]
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
--- OUTSIDE RECORDS SUMMARY | 2019-09-01 05:41 | XMS REPORT ---
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 [place] [address] Apr, [facility] [address] [id number] [address] [place] [address], [place] [address] Apr, [facility] [address] [id number] [address] [place] [address] Apr, [facility] [address] [id number] [address] [place] [address], [place] [address] Apr, [facility] [address] [id number] [address] [place] [address], [place] [address] 02 Apr, 2014 [facility] [address] [id number] [address] [place] [address], [place] [address] Mar, 2013 [facility] [address] [id number] [address] [place] [address], [place] [address] Mar, 2013 [facility] [address] [id number] [address] [place] [address], [place] [address] Mar, 2013 [facility] [address] [id number] [address] [place] [address], [place] [address] Mar, 2013 [facility] [address] [id number] [address] [place] [address], [place] [address] Mar, 2013 [facility] [address] [id number] [address] [place] [address], [place] [address] Mar, 2013 [facility] [address] [id number] [address] [place] [address], [place] [address] Mar, 2013 [facility] [address] [id number] [address] [place] [address], [place] [address] Mar, 2013 [facility] [address] [id number] [address] [place] [address], [place] [address] Mar, 2013 [facility] [address] [id number] [address] [place] [address], [place] [address] Mar, 2013 [facility] [address] [id number] [address] [place] [address], [place] [address] Mar, 2013 [facility] [address] [id number] [address] [place] [address], [place] [address] Mar, 2013 [facility] [address] [id number] [address] [place] [address], [place] [address] Feb, [facility] [address] [id number] [address] [place] [address], [place] [address] Feb, [facility] [address] [id number] [address] [place] [address], [place] [address] Jan, [facility] [address] [id number] [address] [place] [address], [place] [address] Jan, [facility] [address] [id number] [address] [place] [address], [place] [address] Jan, [facility] [address] [id number] [address] [place] [address], [place] [address] Jan, [facility] [address] [id number] [address] [place] [address], [place] [address] Dec, [facility] [address] [id number] [address] [place] [address], [place] [address] Dec, [facility] [address] [id number] [address] [place] [address], [place] [address] Dec, [facility] [address] [id number] [address] [place] [address], [place] [address] Dec, [facility] [address] [id number] [address] [place] [address], [place] [address] Dec, [facility] [address] [id number] [address] [place] [address], [place] [address] Dec, [facility] [address] [id number] [address] [place] [address], [place] [address] November, [facility] [address] [id number] [address] [place] [address], [place] [address] November, [facility] [address] [id number] [address] [place] [address], [place] [address] November, [facility] [address] [id number] [address] [place] [address], [place] [address] November, [facility] [address] [id number] [address] [place] [address], [place] [address] November, [facility] [address] [id number] [address] [place] [address], [place] [address] November, [address] [id number] November, [facility] [address] [id number] [address] [place] [address], [place] [address] November, [facility] [address] [id number] [address] [place] [address], [place] [address] November, [facility] [address] [id number] [address] [place] [address], [place] [address] November, [facility] [address] [id number] [address] [place] [address], [place] [address] November, [facility] [address] [id number] [address] [place] [address], [place] [address] November, [facility] [address] [id number] [address] [place] [address], [place] [address] Oct, [facility] [address] [id number] [address] [place] [address], [place] [address] Oct, [facility] [address] [id number] [address] [place] [address], [place] [address] Oct, [facility] [address] [id number] [address] [place] [address], [place] [address] Oct, [facility] [address] [id number] [address] [place] [address], [place] [address] Oct, [facility] [address] [id number] [address] [place] [address], [place] [address] Oct, [facility] [address] [id number] [address] [place] [address], [place] [address] Oct, [facility] [address] [id number] [address] [place] [address], [place] [address] Oct, [facility] [address] [id number] [address] [place] [address], [place] [address] Oct, [facility] [address] [id number] [address] [place] [address], [place] [address] Oct, [facility] [address] [id number] [address] [place] [address], [place] [address] Oct, [facility] [address] [id number] [facility] [place] [address] Oct, [facility] [address] [id number] [address] [place] [address], [place] [address] Oct, [facility] [address] [id number] [address] [place] [address], [place] [address] Oct, [facility] [address] [id number] [address] [place] [address], [place] [address] Oct, [facility] [address] [id number] [address] [place] [address], [place] [address] Sep, [facility] [address] [id number] [address] [place] [address], [place] [address] Sep, [facility] [address] [id number] [address] [place] [address], [place] [address] Sep, [facility] [address] [id number] [address] [place] [address], [place] [address] Sep, [facility] [address] [id number] [address] [place] [address], [place] [address] Aug, [facility] [address] [id number] [address] [place] [address], [place] [address] Aug, [facility] [address] [id number] [address] [place] [address], [place] [address] Aug, [facility] [address] [id number] [address] [place] [address], [place] [address] Aug, [facility] [address] [id number] [address] [place] [address], [place] [address] Jul, [facility] [address] [id number] [address] [place] [address], [place] [address] Jul, [facility] [address] [id number] [address] [place] [address], [place] [address] Jul, [facility] [address] [id number] [address] [place] [address], [place] [address] Jul, [facility] [address] [id number] [address] [place] [address], [place] [address] Jul, [facility] [address] [id number] [address] [place] [address], [place] [address] Jul, [facility] [address] [id number] [address] [place] [address], [place] [address] Jul, [facility] [address] [id number] [address] [place] [address], [place] [address] Jul, [facility] [address] [id number] [address] [place] [address], [place] [address] Jul, [facility] [address] [id number] [address] [place] [address], [place] [address] Jul, [facility] [address] [id number] [address] [place] [address], [place] [address] Jul, [facility] [address] [id number] [address] [place] [address], [place] [address] Jul, [facility] [address] [id number] [address] [place] [address], [place] [address] Jul, [facility] [address] [id number] [address] [place] [address], [place] [address] Jul, [facility] [address] [id number] [address] [place] [address], [place] [address] Jun, [facility] [address] [id number] [address] [place] [address], [place] [address] Jun, [facility] [address] [id number] [address] [place] [address], [place] [address] Jun, [facility] [address] [id number] [address] [place] [address], [place] [address] Jun, [facility] [address] [id number] [address] [place] [address] May, [facility] [address] [id number] [address] [place] [address], [place] [address] May, [facility] [address] [id number] [address] [place] [address] May, [facility] [address] [id number] [address] [place] [address], [place] [address] May, [facility] [address] [id number] [address] [place] [address] May, [facility] [address] [id number] [address] [place] [address], [place] [address] May, [facility] [address] [id number] [address] [place] [address] May, [facility] [address] [id number] [address] [place] [address] May, [facility] [address] [id number] [address] [place] [address], [place] [address] Apr, [facility] [address] [id number] [address] [place] [address] Apr, [facility] [address] [id number] [address] [place] [address] Apr, [facility] [address] [id number] [address] [place] [address] Apr, [facility] [address] [id number] [address] [place] [address] Apr, [facility] [address] [id number] [address] [place] [address] Apr, [facility] [address] [id number] [address] [place] [address] 30 Mar, 2013 [facility] [address] [id number] [address] [place] [address], [place] [address] Mar, [facility] [address] [id number] [address] [place] [address], [place] [address] 20 Mar, 2013 [facility] [address] [id number] [address] [place] [address], [place] [address] 17 Mar, 2013 [facility] [address] [id number] [address] [place] [address], [place] [address] 16 Mar, 2013 [facility] [address] [id number] [address] [place] [address], [place] [address] 05 Mar, 2013 [facility] [address] [id number] [address] [place] [address], [place] [address] Feb, [facility] [address] [id number] [address] [place] [address], [place] [address] Feb, [facility] [address] [id number] [address] [place] [address], [place] [address] Feb, [facility] [address] [id number] [address] [place] [address], [place] [address] Feb, [facility] [address] [id number] [address] [place] [address], [place] [address] Jan, [facility] [address] [id number] [address] [place] [address], [place] [address] Jan, [facility] [address] [id number] [address] [place] [address], [place] [address] Jan, [facility] [address] [id number] [address] [place] [address], [place] [address] Jan, [facility] [address] [id number] [address] [place] [address], [place] [address] Jan, [facility] [address] [id number] [address] [place] [address], [place] [address] Dec, [facility] [address] [id number] [address] [place] [address], [place] [address] Dec, [facility] [address] [id number] [address] [place] [address], [place] [address] Dec, [facility] [facility] [address] [id number] [address] [place] [address], [place] [address] November, [facility] [address] [id number] [address] [place] [address], [place] [address] November, [facility] [address] [id number] [address] [place] [address], [place] [address] November, [facility] [address] [id number] [address] [place] [address], [place] [address] Oct, [facility] [address] [id number] [address] [place] [address], [place] [address] Oct, [facility] [address] [id number] [address] [place] [address], [place] [address] Oct, [facility] [address] [id number] [address] [place] [address], [place] [address] Oct, [facility] [address] [id number] [address] [place] [address], [place] [address] Oct, [facility] [address] [id number] [address] [place] [address], [place] [address] Oct, [facility] [address] [id number] [address] [place] [address], [place] [address] Oct, [facility] [address] [id number] [address] [place] [address], [place] [address] Sep, [facility] [address] [id number] [address] [place] [address], [place] [address] Sep, [facility] [address] [id number] [address] [place] [address], [place] [address] Sep, [facility] [address] [id number] [address] [place] [address], [place] [address] Sep, [facility] [address] [id number] [address] [place] [address], [place] [address] Aug, [facility] [address] [id number] [address] [place] [address], [place] [address] Aug, [facility] [address] [id number] [address] [place] [address], [place] [address] Aug, [facility] [address] [id number] [address] [place] [address], [place] [address] Aug, [facility] [address] [id number] [address] [place] [address], [place] [address] Aug, [facility] [address] [id number] [address] [place] [address], [place] [address] Aug, [facility] [address] [id number] [address] [place] [address], [place] [address] Jul, [facility] [address] [id number] [address] [place] [address], [place] [address] Jul, [facility] [address] [id number] [address] [place] [address], [place] [address] Jul, [facility] [address] [id number] [address] [place] [address], [place] [address] Jul, [facility] [address] [id number] [address] [place] [address], [place] [address] Jul, [facility] [address] [id number] [address] [place] [address], [place] [address] Jul, [facility] [address] [id number] [address] [place] [address], [place] [address] Jun, [facility] [address] [id number] [address] [place] [address], [place] [address] Jun, [facility] [address] [id number] [address] [place] [address], [place] [address] Jun, [facility] [address] [id number] [address] [place] [address], [place] [address] Jun, [facility] [address] [id number] [address] [place] [address], [place] [address] Jun, [facility] [address] [id number] [address] [place] [address], [place] [address] Jun, [facility] [address] [id number] [address] [place] [address], [place] [address] May, [facility] [address] [id number] [address] [place] [address], [place] [address] May, [facility] [address] [id number] [address] [place] [address], [place] [address] May, [facility] [address] [id number] [address] [place] [address], [place] [address] May, [facility] [address] [id number] [address] [place] [address], [place] [address] May, [facility] [address] [id number] [address] [place] [address], [place] [address] May, [facility] [address] [id number] [address] [place] [address], [place] [address] May, [facility] [address] [id number] [address] [place] [address], [place] [address] May, [facility] [address] [id number] [address] [place] [address], [place] [address] May, [facility] [address] [id number] [address] [place] [address], [place] [address] May, [facility] [address] [id number] [address] [place] [address] Apr, [facility] [address] [id number] [address] [place] [address], [place] [address] Apr, [facility] [address] [id number] [address] [place] [address], [place] [address] Apr, [facility] [address] [id number] [address] [place] [address], [place] [address] Apr, [facility] [address] [id number] [address] [place] [address] 16 Apr, 2012 [facility] [address] [id number] [address] [place] [address], [place] [address] 16 Apr, 2012 [facility] [address] [id number] [address] [place] [address], [place] [address] 15 Apr, 2012 [facility] [address] [id number] [address] [place] [address], [place] [address] 15 Apr, 2012 [facility] [address] [id number] [address] [place] [address], [place] [address] 05 Apr, 2012 [facility] [address] [id number] [address] [place] [address], [place] [address] 28 Mar, 2012 [facility] [address] [id number] [address] [place] [address], [place] [address] 26 Mar, 2012 [facility] [address] [id number] [address] [place] [address], [place] [address] 25 Mar, 2012 [facility] [address] [id number] [address] [place] [address], [place] [address] 19 Mar, 2012 [facility] [address] [id number] [address] [place] [address], [place] [address] 18 Mar, 2012 [facility] [address] [id number] [address] [place] [address], [place] [address] 05 Mar, 2012 [facility] [address] [id number] [address] [place] [address], [place] [address] 28 Feb, 2012 [facility] [address] [id number] [address] [place] [address], [place] [address] Feb, [facility] [address] [id number] [address] [place] [address], [place] [address] Feb, [facility] [address] [id number] [address] [place] [address], [place] [address] Jan, [facility] [address] [id number] [address] [place] [address], [place] [address] Jan, [facility] [address] [id number] [address] [place] [address], [place] [address] Jan, [facility] [address] [id number] [address] [place] [address], [place] [address] Jan, [facility] [address] [id number] [address] [place] [address], [place] [address] Dec, [facility] [address] [id number] [address] [place] [address], [place] [address] November, [facility] [address] [id number] [address] [place] [address], [place] [address] November, [facility] [address] [id number] [address] [place] [address], [place] [address] November, [facility] [address] [id number] [address] [place] [address], [place] [address] November, [facility] [address] [id number] [address] [place] [address], [place] [address] November, [facility] [address] [id number] [address] [place] [address], [place] [address] November, [facility] [address] [id number] [address] [place] [address], [place] [address] Oct, [facility] [address] [id number] [address] [place] [address], [place] [address] Oct, [facility] [address] [id number] [address] [place] [address], [place] [address] Sep, [facility] [address] [id number] [address] [place] [address], [place] [address] Sep, [facility] [address] [id number] [address] [place] [address], [place] [address] Sep, [facility] [address] [id number] [address] [place] [address], [place] [address] Aug, [facility] [address] [id number] [address] [place] [address], [place] [address] Aug, 2011 [facility] [address] [id number] [address] [place] [address], [place] [address] 14 Aug, 2011 [facility] [address] [id number] [address] [place] [address], [place] [address] Aug, [facility] [address] [id number] [address] [place] [address], [place] [address] Aug, [facility] [address] [id number] [address] [place] [address], [place] [address] Aug, [facility] [address] [id number] [address] [place] [address], [place] [address] Jul, [facility] [address] [id number] [address] [place] [address], [place] [address] Jul, [facility] [address] [id number] [address] [place] [address], [place] [address] Jul, [facility] [address] [id number] [address] [place] [address], [place] [address] Jul, [facility] [address] [id number] [address] [place] [address], [place] [address] Jul, [facility] [address] [id number] [address] [place] [address], [place] [address] Jul, [facility] [address] [id number] [address] [place] [address], [place] [address] Jul, [facility] [address] [id number] [address] [place] [address], [place] [address] Jul, [facility] [address] [id number] [address] [place] [address], [place] [address] Jul, [facility] [address] [id number] [address] [place] [address], [place] [address] Jul, [facility] [address] [id number] [address] [place] [address], [place] [address] Jun, [facility] [address] [id number] [address] [place] [address], [place] [address] Jun, [facility] [address] [id number] [address] [place] [address], [place] [address] Jun, [facility] [address] [id number] [address] [place] [address], [place] [address] Jun, [facility] [address] [id number] [address] [place] [address], [place] [address] May, [facility] [address] [id number] [address] [place] [address], [place] [address] May, [facility] [address] [id number] [address] [place] [address], [place] [address] May, [facility] [address] [id number] [address] [place] [address], [place] [address] May, [facility] [address] [id number] [address] [place] [address], [place] [address] Apr, [facility] [address] [id number] [address] [place] [address], [place] [address] Apr, [facility] [address] [id number] [address] [place] [address], [place] [address] November, [facility] [address] [id number] [address] [place] [address], [place] [address] Oct, [facility] [address] [id number] [address] [place] [address], [place] [address] Aug, [facility] [address] [id number] [address] [place] [address], [place] [address] Jun, [facility] [address] [id number] [address] [place] [address], [place] [address] Jun, [facility] [address] [id number] [address] [place] [address], [place] [address] Jun, [facility] [address] [id number] [address] [place] [address], [place] [address] 03 Jun, 2010 [facility] [address] [id number] [address] [place] [address] 29 May, 2010 [facility] [address] [id number] [address] [place] [address] 27 Apr, 2010 [facility] [address] [id number] [address] [place] [address] Oct, [facility] [address] [id number] [address] [place] [address] 13 Aug, 2009 [facility] [address] [id number] [address] [place] [address] Jul, [facility] [address] [id number] [address] [place] [address] 22 Jun, 2009 [facility] [address] [id number] [address] [place] [address] 16 Jun, 2009 [facility] [address] [id number] [address] [place] [address] 14 Jun, 2009 [facility] [address] [id number] [address] [place] [address] 14 Jun, 2009 [facility] [address] [id number] [address] [place] [address] 09 May, 2009 [facility] [address] [id number] [address] [place] [address] 20 Apr, 2009 [facility] [address] [id number] [address] [place] [address] 15 Mar, 2009 [facility] [address] [id number] [address] [place] [address] 14 Mar, 2009 [facility] [address] [id number] [address] [place] [address] 11 Dec, 2008 IMMUNIZATIONS No Known Immunizations SOCIAL HISTORY Never Assessed REASON FOR VISIT Appointment PLAN OF CARE VITAL SIGNS MEDICATIONS Unknown [...]
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
--- OUTSIDE RECORDS SUMMARY | 2019-09-01 05:41 | XMS REPORT ---
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
--- OUTSIDE RECORDS SUMMARY | 2019-09-01 05:41 | XMS REPORT ---
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 [facility] [address] [id number] [address] [place] [address], [place] [address] Apr, [facility] [address] [id number] [address] [place] [address], [place] [address] Apr, [facility] [address] [id number] [address] [place] [address] Apr, [facility] [address] [id number] [address] [place] [address], [place] [address] Apr, [facility] [address] [id number] [address] [place] [address], [place] [address] Apr, [facility] [address] [id number] [address] [place] [address], [place] [address] Apr, [facility] [address] [id number] [address] [place] [address], [place] [address] 08 Apr, 2013 [facility] [address] [id number] [address] [place] [address], [place] [address] 08 Apr, 2013 [facility] [address] [id number] [address] [place] [address], [place] [address] Apr, [facility] [address] [id number] [address] [place] [address], [place] [address] Apr, 2013 [facility] [address] [id number] [address] [place] [address], [place] [address] 29 Mar, 2013 [facility] [address] [id number] [address] [place] [address], [place] [address] 29 Mar, 2013 [facility] [address] [id number] [address] [place] [address], [place] [address] 29 Mar, 2013 [facility] [address] [id number] [address] [place] [address], [place] [address] 29 Mar, 2013 [facility] [address] [id number] [address] [place] [address], [place] [address] 10 Mar, 2013 [facility] [address] [id number] [address] [place] [address], [place] [address] 10 Mar, 2013 [facility] [address] [id number] [address] [place] [address], [place] [address] 04 Sep, 2013 [facility] [address] [id number] [address] [place] [address], [place] [address] 04 Sep, 2013 [facility] [address] [id number] [address] [place] [address], [place] [address] Sep, 2013 [facility] [address] [id number] [address] [place] [address], [place] [address] Sep, 2013 [facility] [address] [id number] [address] [place] [address], [place] [address] Sep, 2013 [facility] [address] [id number] [address] [place] [address], [place] [address] Mar, [facility] [address] [id number] [address] [place] [address], [place] [address] Feb, [facility] [address] [id number] [address] [place] [address], [place] [address] Feb, [facility] [address] [id number] [address] [place] [address], [place] [address] Jan, [facility] [address] [id number] [address] [place] [address], [place] [address] Jan, [facility] [address] [id number] [address] [place] [address], [place] [address] Jan, [facility] [address] [id number] [address] [place] [address], [place] [address] Jan, [facility] [address] [id number] [address] [place] [address], [place] [address] Dec, [facility] [address] [id number] [address] [place] [address], [place] [address] Dec, [facility] [address] [id number] [address] [place] [address], [place] [address] Dec, [facility] [address] [id number] [address] [place] [address], [place] [address] Dec, [facility] [address] [id number] [address] [place] [address], [place] [address] Dec, [facility] [address] [id number] [address] [place] [address], [place] [address] Dec, [facility] [address] [id number] [address] [place] [address], [place] [address] November, [facility] [address] [id number] [address] [place] [address], [place] [address] November, [facility] [address] [id number] [address] [place] [address], [place] [address] November, [facility] [address] [id number] [address] [place] [address], [place] [address] November, [facility] [address] [id number] [address] [place] [address], [place] [address] November, [facility] [address] [id number] [address] [place] [address], [place] [address] November, [facility] [address] [place] [id number] November, [facility] [address] [id number] [address] [place] [address], [place] [address] November, [facility] [address] [id number] [address] [place] [address], [place] [address] November, [facility] [address] [id number] [address] [place] [address], [place] [address] November, [facility] [address] [id number] [address] [place] [address], [place] [address] November, [facility] [address] [id number] [address] [place] [address], [place] [address] November, [facility] [address] [id number] [address] [place] [address], [place] [address] Oct, [facility] [address] [id number] [address] [place] [address], [place] [address] Oct, [facility] [address] [id number] [address] [place] [address], [place] [address] Oct, [facility] [address] [id number] [address] [place] [address], [place] [id number] Oct, [facility] [address] [id number] [address] [place] [address], [place] [id number] Oct, [facility] [address] [id number] [address] [place] [address], [place] [id number] Oct, [facility] [address] [id number] [address] [place] [address], [place] [id number] Oct, [facility] [address] [id number] [address] [place] [address], [place] [id number] Oct, [facility] [address] [id number] [address] [place] [address], [place] [id number] Oct, [facility] [address] [id number] [address] [place] [address], [place] [id number] Oct, [facility] [address] [id number] [address] [place] [address], [place] [id number] Oct, [facility] [address] [id number] [address] [place] [address], [place] [id number] Oct, [facility] [address] [id number] [address] [place] [address], [place] [id number] Oct, [facility] [address] [id number] [address] [place] [address], [place] [id number] Oct, [facility] [address] [id number] [address] [place] [address], [place] [id number] Oct, [facility] [address] [id number] [address] [place] [address], [place] [id number] Sep, [facility] [address] [id number] [address] [place] [address], [place] [id number] Sep, [facility] [address] [id number] [address] [place] [address], [place] [id number] Sep, [facility] [address] [id number] [address] [place] [address], [place] [id number] Sep, [facility] [address] [id number] [address] [place] [address], [place] [id number] Aug, [facility] [address] [id number] [address] [place] [address], [place] [id number] Aug, [facility] [address] [id number] [address] [place] [address], [place] [id number] Aug, [facility] [address] [id number] [address] [place] [address], [place] [id number] Aug, [facility] [address] [id number] [address] [place] [address], [place] [id number] Jul, [facility] [address] [id number] [address] [place] [address], [place] [id number] Jul, [facility] [address] [id number] [address] [place] [address], [place] [id number] Jul, [facility] [address] [id number] [address] [place] [address], [place] [id number] Jul, [facility] [address] [id number] [address] [place] [address], [place] [id number] Jul, [facility] [address] [id number] [address] [place] [address], [place] [id number] Jul, [facility] [address] [id number] [address] [place] [address], [place] [id number] Jul, [facility] [address] [id number] [address] [place] [address], [place] [id number] Jul, [facility] [address] [id number] [address] [place] [address], [place] [id number] Jul, [facility] [address] [id number] [address] [place] [address], [place] [id number] Jul, [facility] [address] [id number] [address] [place] [address], [place] [id number] Jul, [facility] [address] [id number] [address] [place] [address], [place] [id number] Jul, [facility] [address] [id number] [address] [place] [address], [place] [id number] Jul, [facility] [address] [id number] [address] [place] [address], [place] [id number] Jul, [facility] [address] [id number] [address] [place] [address], [place] [id number] Jun, [facility] [address] [id number] [address] [place] [address], [place] [id number] Jun, [facility] [address] [id number] [address] [place] [address], [place] [id number] Jun, [facility] [address] [id number] [address] [place] [address], [place] [id number] Jun, [facility] [address] [id number] [address] [place] [address], [place] [id number] May, [facility] [address] [id number] [address] [place] [id number] May, [facility] [address] [id number] [address] [place] [address], [place] [id number] May, [facility] [address] [id number] [address] [place] [address], [place] [id number] May, [facility] [address] [id number] [address] [place] [address], [place] [id number] May, [facility] [address] [id number] [address] [place] [address], [place] [address] May, [facility] [address] [id number] [address] [place] [address], [place] [address] May, [facility] [address] [id number] [address] [place] [address], [place] [address] May, [facility] [address] [id number] [address] [place] [id number] Apr, [facility] [address] [id number] [address] [place] [id number] Apr, [facility] [address] [id number] [address] [place] [address], [place] [address] Apr, [facility] [address] [id number] [address] [place] [address], [place] [address] Apr, [facility] [address] [id number] [address] [place] [address], [place] [address] Apr, [facility] [address] [id number] [address] [place] [address], [place] [address] Apr, [facility] [address] [id number] [address] [place] [address], [place] [address] 30 Mar, 2013 [facility] [address] [id number] [address] [place] [address], [place] [address] 26 Mar, 2013 [facility] [address] [id number] [address] [place] [address], [place] [address] 20 Mar, 2012 [facility] [address] [id number] [address] [place] [address], [place] [address] 17 Mar, 2013 [facility] [address] [id number] [address] [place] [address], [place] [address] 16 Mar, 2013 [facility] [address] [id number] [address] [place] [address], [place] [address] 05 Mar, 2013 [facility] [address] [id number] [address] [place] [address], [place] [address] Feb, [facility] [address] [id number] [address] [place] [address], [place] [address] Feb, [facility] [address] [id number] [address] [place] [address], [place] [address] Feb, [facility] [address] [id number] [address] [place] [address], [place] [address] Feb, [facility] [address] [id number] [address] [place] [address], [place] [address] Jan, [facility] [address] [id number] [address] [place] [address], [place] [address] Jan, [facility] [address] [id number] [address] [place] [address], [place] [address] Jan, [facility] [address] [id number] [address] [place] [address], [place] [id number] 23 Jan, 2013 [facility] [address] [id number] [address] [place] [address], [place] [address] Jan, [facility] [address] [id number] [address] [place] [address], [place] [address] Dec, [facility] [address] [id number] [address] [place] [address], [place] [address] Dec, [facility] [address] [id number] [address] [place] [address], [place] [address] Dec, [facility] [address] [id number] [address] [place] [address], [place] [address] November, [facility] [address] [id number] [address] [place] [address], [place] [address] November, [facility] [address] [id number] [address] [place] [address], [place] [address] November, [facility] [address] [id number] [address] [place] [address], [place] [address] Oct, [facility] [address] [id number] [address] [place] [address], [place] [address] Oct, [facility] [address] [id number] [address] [place] [address], [place] [address] Oct, [facility] [address] [id number] [address] [place] [address], [place] [address] Oct, [facility] [address] [id number] [address] [place] [address], [place] [id number] 18 Oct, 2012 [facility] [address] [id number] [address] [place] [address], [place] [address] 17 Oct, 2012 [facility] [address] [id number] [address] [place] [address], [place] [address] 15 Oct, 2012 [facility] [address] [id number] [address] [place] [address], [place] [address] Sep, [facility] [address] [id number] [address] [place] [address], [place] [address] Sep, [facility] [address] [id number] [address] [place] [address] Sep, [facility] [address] [id number] [address] [place] [address], [place] [address] Sep, [facility] [address] [id number] [address] [place] [address], [place] [address] Aug, [facility] [address] [id number] [address] [place] [address], [place] [address] Aug, [facility] [address] [id number] [address] [place] [address], [place] [address] Aug, [facility] [address] [id number] [address] [place] [address], [place] [address] Aug, [facility] [address] [id number] [address] [place] [address], [place] [address] Aug, [facility] [address] [id number] [address] [place] [address], [place] [address] Aug, [facility] [address] [id number] [address] [place] [address], [place] [address] Jul, [facility] [address] [id number] [address] [place] [address], [place] [address] Jul, [facility] [address] [id number] [address] [place] [address], [place] [address] Jul, [facility] [address] [id number] [address] [place] [address], [place] [address] Jul, [facility] [address] [id number] [address] [place] [address], [place] [address] Jul, [facility] [address] [id number] [address] [place] [address], [place] [address] Jul, [facility] [address] [id number] [address] [place] [address], [place] [address] Jun, [facility] [address] [id number] [address] [place] [address], [place] [address] Jun, [facility] [address] [id number] [address] [place] [address], [place] [address] Jun, [facility] [address] [id number] [address] [place] [address], [place] [address] Jun, [facility] [address] [id number] [address] [place] [address], [place] [address] Jun, [facility] [address] [id number] [address] [place] [address], [place] [address] Jun, [facility] [address] [id number] [address] [place] [address], [place] [address] May, [facility] [address] [id number] [address] [place] [address], [place] [address] May, [facility] [address] [id number] [address] [place] [address], [place] [address] May, [facility] [address] [id number] [address] [place] [address], [place] [address] May, [facility] [address] [id number] [address] [place] [address], [place] [address] May, [facility] [address] [id number] [address] [place] [address], [place] [address] May, [facility] [address] [id number] [address] [place] [address], [place] [address] May, [facility] [address] [id number] [address] [place] [address], [place] [address] May, [facility] [address] [id number] [address] [place] [address], [place] [address] May, [facility] [address] [id number] [address] [place] [address], [place] [address] May, [facility] [address] [id number] [address] [place] [address], [place] [address] Apr, [facility] [address] [id number] [address] [place] [address] 31 Apr, 2012 [facility] [address] [id number] [address] [place] [address], [place] [address] 23 Apr, 2012 [facility] [address] [id number] [address] [place] [id number] 23 Apr, 2012 [facility] [address] [id number] [address] [place] [address], [place] [address] 16 Apr, 2012 [facility] [address] [id number] [address] [place] [address] 16 Apr, 2012 [facility] [address] [id number] [address] [place] [address], [place] [address] 15 Apr, 2012 [facility] [address] [id number] [address] [place] [address], [place] [address] 15 Apr, 2012 [facility] [address] [id number] [address] [place] [address] 05 Apr, 2012 [facility] [address] [id number] [address] [place] [address], [place] [address] 28 Mar, 2012 [facility] [address] [id number] [address] [place] [address], [place] [address] 26 Mar, 2012 [facility] [address] [id number] [address] [place] [address], [place] [address] 25 Mar, 2012 [facility] [address] [id number] [address] [place] [address], [place] [address] 19 Mar, 2012 [facility] [address] [id number] [address] [place] [id number] 18 Mar, 2012 [facility] [address] [id number] [address] [place] [address], [place] [address] 05 Mar, 2012 [facility] [address] [id number] [address] [place] [id number] 28 Feb, 2012 [facility] [address] [id number] [address] [place] [address], [place] [address] 27 Feb, 2012 [facility] [address] [id number] [address] [place] [address], [place] [address] Feb, [facility] [address] [id number] [address] [place] [address], [place] [address] Jan, [facility] [address] [id number] [address] [place] [address], [place] [address] Jan, [facility] [address] [id number] [address] [place] [address], [place] [address] Jan, [facility] [address] [id number] [address] [place] [address], [place] [address] Jan, [facility] [address] [id number] [address] [place] [address], [place] [address] Dec, [facility] [address] [id number] [address] [place] [address], [place] [address] November, [facility] [address] [id number] [address] [place] [address], [place] [address] November, [facility] [address] [id number] [address] [place] [address], [place] [address] November, [facility] [address] [id number] [address] [place] [address], [place] [address] November, [facility] [address] [id number] [address] [place] [address], [place] [address] November, [facility] [address] [id number] [address] [place] [address], [place] [address] November, [facility] [address] [id number] [address] [place] [address], [place] [address] Oct, [facility] [address] [id number] [address] [place] [address], [place] [address] Oct, [facility] [address] [id number] [address] [place] [address], [place] [address] Sep, [facility] [address] [id number] [address] [place] [address], [place] [address] Sep, [facility] [address] [id number] [address] [place] [address], [place] [address] Sep, [facility] [address] [id number] [address] [place] [address], [place] [address] Aug, [facility] [address] [id number] [address] [place] [address], [place] [address] Aug, [facility] [address] [id number] [address] [place] [address], [place] [address] Aug, [facility] [address] [id number] [address] [place] [address], [place] [address] Aug, [facility] [address] [id number] [address] [place] [address], [place] [address] Aug, [facility] [address] [id number] [address] [place] [address], [place] [address] Aug, [facility] [address] [id number] [address] [place] [address], [place] [address] Jul, [facility] [address] [id number] [address] [place] [address], [place] [address] Jul, [facility] [address] [id number] [address] [place] [address], [place] [address] Jul, [facility] [address] [id number] [address] [place] [address], [place] [address] Jul, [facility] [address] [id number] [address] [place] [address], [place] [address] Jul, [facility] [address] [id number] [address] [place] [address], [place] [address] Jul, [facility] [address] [id number] [address] [place] [address], [place] [address] Jul, [facility] [address] [id number] [address] [place] [address], [place] [address] Jul, [facility] [address] [id number] [address] [place] [address], [place] [id number] 10 Jul, 2011 [facility] [address] [id number] [address] [place] [address], [place] [address] Jul, [facility] [address] [id number] [address] [place] [address], [place] [address] Jun, [facility] [address] [id number] [address] [place] [address], [place] [address] Jun, [facility] [address] [id number] [address] [place] [address], [place] [address] Jun, [facility] [address] [id number] [address] [place] [address], [place] [address] Jun, [facility] [address] [id number] [address] [place] [address], [place] [address] May, [facility] [address] [id number] [address] [place] [address], [place] [address] May, [facility] [address] [id number] [address] [place] [address], [place] [address] May, [facility] [address] [id number] [address] [place] [address], [place] [address] May, [facility] [address] [id number] [address] [place] [address], [place] [address] Apr, [facility] [address] [id number] [address] [place] [address], [place] [address] Apr, [facility] [address] [id number] [address] [place] [address], [place] [address] November, [facility] [address] [id number] [address] [place] [address], [place] [address] 18 Oct, 2010 [facility] [address] [id number] [address] [place] [address], [place] [address] Aug, [facility] [address] [id number] [address] [place] [address], [place] [address] Jun, [facility] [address] [id number] [address] [place] [address], [place] [address] 28 Jun, 2010 [facility] [address] [id number] [address] [place] [address], [place] [id number] 27 Jun, 2010 [facility] [address] [id number] [address] [place] [address], [place] [address] 03 Jun, 2010 [facility] [address] [id number] [address] [place] [address], [place] [address] 29 May, 2010 [facility] [address] [id number] [address] [place] [address], [place] [address] 27 Apr, 2010 [facility] [address] [id number] [address] [place] [address], [place] [address] 13 Oct, 2009 [facility] [address] [id number] [address] [place] [address], [place] [address] 13 Aug, 2009 [facility] [address] [id number] [address] [place] [address], [place] [address] 20 Jul, 2009 [facility] [address] [id number] [address] [place] [address], [place] [address] 22 Jun, 2009 [facility] [address] [id number] [address] [place] [address], [place] [address] 16 Jun, 2009 [facility] [address] [id number] [address] [place] [address], [place] [address] 14 Jun, 2009 [facility] [address] [id number] [address] [place] [id number] 14 Jun, 2009 [facility] [address] [id number] [address] [place] [address], [place] [address] 09 May, 2009 [facility] [address] [id number] [address] [place] [address], [place] [address] 20 Apr, 2009 [facility] [address] [id number] [address] [place] [address], [place] [address] 15 Mar, 2009 [facility] [address] [id number] [address] [place] [id number] 14 Mar, 2009 [facility] [address] [facility] [id number] [address] [place] [id number] 11 Dec, 2008 IMMUNIZATIONS No Known Immunizations SOCIAL HISTORY Never Assessed REASON FOR VISIT [employer]--Keri PLAN OF CARE Activity Details Follow Up 4 Weeks Reason:repower 7 VITAL SIGNS Height 66.0 in 2017-06-09 Weight 200.3 lbs 2017-06-09 Temperature 97.8 degrees Fahrenheit 2017-06-09 Heart Rate 90 bpm 2017-06-09 Respiratory Rate 16 2017-06-09 BMI 32.33 kg/m2 2017-06-09 Blood pressure systolic 118 mmHg 2017-06-09 Blood pressure diastolic 82 mmHg 2017-06-09 MEDICATIONS Unknown Medications RESULTS No Results PROCEDURES Procedure Date Ordered Result Body Site No Charge Jun 09, 2017 INSTRUCTIONS MEDICATIONS ADMINISTERED No Known Medications [...]
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
--- OUTSIDE RECORDS SUMMARY | 2019-09-01 05:42 | XMS REPORT ---
Author Olivia Lezama [facility] eClinicalWorks Address Unknown Phone Unavailable Care Team Providers Care Tactical Response Group Officer Name Role Phone TIMUR MACHADO CP Unavailable Allergies No Known Allergies Problems [...] Instructions Start Date End Date Status Dosage Amitriptyline HCl [facility] [address]-24 25 MG TAKE ONE TABLET BY MOUTH AT BEDTIME Clonazepam [facility] [address]-78 0.5 MG TAKE O NE TO TWO TABLETS BY MOUTH ONCE OR TWICE DAILY NEEDED FOR ANXIETY Results No Known Results Summary Purpose eClinicalWorks Submission
--- OUTSIDE RECORDS SUMMARY | 2019-09-01 05:42 | XMS REPORT ---
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 [address] [place] [address], [place] [address] Apr, [facility] [address] [id number] [address] [place] [address], [place] [address] 08 Apr, 2013 [facility] [address] [id number] [address] [place] [address], [place] [address] Apr, [facility] [address] [id number] [address] [place] [address], [place] [address] Apr, [facility] [address] [id number] [address] [place] [address], [place] [address] Apr, 2013 [facility] [address] [id number] [address] [place] [address], [place] [address] 29 Mar, 2013 [facility] [address] [id number] [address] [place] [address], [place] [address] 29 Mar, 2013 [facility] [address] [id number] [address] [place] [address], [place] [address] 29 Mar, 2013 [facility] [address] [id number] [address] [place] [address], [place] [address] 29 Mar, 2013 [facility] [address] [id number] [address] [place] [address], [place] [address] 10 Mar, 2013 [facility] [address] [id number] [address] [place] [address], [place] [address] 10 Mar, 2013 [facility] [address] [id number] [address] [place] [address], [place] [address] Mar, 2013 [facility] [address] [id number] [address] [place] [address], [place] [address] 04 Sep, 2013 [facility] [address] [id number] [address] [place] [address], [place] [address] Sep, 2013 [facility] [address] [id number] [address] [place] [address], [place] [address] Sep, 2013 [facility] [address] [id number] [address] [place] [address], [place] [address] Mar, 2013 [facility] [address] [id number] [address] [place] [address], [place] [address] Mar, [facility] [address] [id number] [address] [place] [address], [place] [address] Feb, [facility] [address] [id number] [address] [place] [address], [place] [address] Feb, [facility] [address] [id number] [address] [place] [address], [place] [address] Jan, [facility] [address] [id number] [address] [place] [address], [place] [address] Jan, [facility] [address] [id number] [address] [place] [address], [place] [address] Jan, [facility] [address] [id number] [address] [place] [address], [place] [address] Jan, [facility] [address] [id number] [address] [place] [address], [place] [address] Dec, [facility] [address] [id number] [address] [place] [address], [place] [address] Dec, [facility] [address] [id number] [address] [place] [address], [place] [address] Dec, [facility] [address] [id number] [address] [place] [address], [place] [address] Dec, [facility] [address] [id number] [address] [place] [address], [place] [address] Dec, [facility] [address] [id number] [address] [place] [address], [place] [address] Dec, [facility] [address] [id number] [address] [place] [address], [place] [address] November, [facility] [address] [id number] [address] [place] [address], [place] [address] November, [facility] [address] [id number] [address] [place] [address], [place] [address] November, [facility] [address] [id number] [address] [place] [address], [place] [address] November, [facility] [address] [id number] [address] [place] [address], [place] [address] November, [facility] [address] [id number] [address] [place] [address], [place] [address] November, [facility] [address] [place] [id number] November, [facility] [address] [id number] [address] [place] [address], [place] [address] November, [facility] [address] [id number] [address] [place] [address], [place] [address] November, [facility] [address] [id number] [address] [place] [address], [place] [address] November, [facility] [address] [id number] [address] [place] [address], [place] [address] November, [facility] [address] [id number] [address] [place] [address], [place] [address] November, [facility] [address] [id number] [address] [place] [address], [place] [address] Oct, [facility] [address] [id number] [address] [place] [address], [place] [address] Oct, [facility] [address] [id number] [address] [place] [address], [place] [address] Oct, [facility] [address] [id number] [address] [place] [address], [place] [address] Oct, [facility] [address] [id number] [address] [place] [address], [place] [address] Oct, [facility] [address] [id number] [address] [place] [address], [place] [address] Oct, [facility] [address] [id number] [address] [place] [address], [place] [address] Oct, [facility] [address] [id number] [address] [place] [address], [place] [address] Oct, [facility] [address] [id number] [facility] [place] [address] Oct, [facility] [address] [id number] [facility] [place] [address] Oct, [facility] [address] [id number] [facility] [place] [address] Oct, [facility] [address] [id number] [address] [place] [address], [place] [address] Oct, [facility] [address] [id number] [address] [place] [address], [place] [address] Oct, [facility] [address] [id number] [address] [place] [address], [place] [address] Oct, [facility] [address] [id number] [address] [place] [address], [place] [address] Oct, [facility] [address] [id number] [address] [place] [address], [place] [address] Sep, [facility] [address] [id number] [address] [place] [address], [place] [address] Sep, [facility] [address] [id number] [address] [place] [address], [place] [address] Sep, [facility] [address] [id number] [address] [place] [address], [place] [address] Sep, [facility] [address] [id number] [address] [place] [address], [place] [address] Aug, [facility] [address] [id number] [address] [place] [address], [place] [address] Aug, [facility] [address] [id number] [address] [place] [address], [place] [address] Aug, [facility] [address] [id number] [address] [place] [address], [place] [address] Aug, [facility] [address] [id number] [address] [place] [address], [place] [address] Jul, [facility] [address] [id number] [address] [place] [address], [place] [address] Jul, [facility] [address] [id number] [address] [place] [address], [place] [address] Jul, [facility] [address] [id number] [address] [place] [address], [place] [address] Jul, [facility] [address] [id number] [address] [place] [address], [place] [address] Jul, [facility] [address] [id number] [address] [place] [address], [place] [address] Jul, [facility] [address] [id number] [address] [place] [address], [place] [address] Jul, [facility] [address] [id number] [address] [place] [address], [place] [address] Jul, [facility] [address] [id number] [address] [place] [address], [place] [address] Jul, [facility] [address] [id number] [address] [place] [address], [place] [address] Jul, [facility] [address] [id number] [address] [place] [address], [place] [address] Jul, [facility] [address] [id number] [address] [place] [address], [place] [address] Jul, [facility] [address] [id number] [address] [place] [address], [place] [address] Jul, [facility] [address] [id number] [address] [place] [address], [place] [address] Jul, [facility] [address] [id number] [address] [place] [address], [place] [address] Jun, [facility] [address] [id number] [address] [place] [address] Jun, [facility] [address] [id number] [address] [place] [address], [place] [address] Jun, [facility] [address] [id number] [address] [place] [address] Jun, [facility] [address] [id number] [address] [place] [address], [place] [address] May, [facility] [address] [id number] [address] [place] [address] May, [facility] [address] [id number] [address] [place] [address], [place] [address] May, [facility] [address] [id number] [address] [place] [address] May, [facility] [address] [id number] [address] [place] [address] May, [facility] [address] [id number] [address] [place] [address], [place] [address] May, [facility] [address] [id number] [address] [place] [address] May, [facility] [address] [id number] [address] [place] [address] May, [facility] [address] [id number] [address] [place] [address] Apr, [facility] [address] [id number] [address] [place] [address] Apr, [facility] [address] [id number] [address] [place] [address] Apr, [facility] [address] [id number] [address] [place] [id number] Apr, [facility] [address] [id number] [address] [place] [id number] Apr, [facility] [address] [id number] [address] [place] [address], [place] [address] Apr, [facility] [address] [id number] [address] [place] [address], [place] [address] 30 Mar, 2013 [facility] [address] [id number] [address] [place] [address], [place] [address] 26 Mar, 2013 [facility] [address] [id number] [address] [place] [address], [place] [address] 20 Mar, 2012 [facility] [address] [id number] [address] [place] [address], [place] [address] 17 Mar, 2013 [facility] [address] [id number] [address] [place] [address], [place] [address] 16 Mar, 2013 [facility] [address] [id number] [address] [place] [address], [place] [address] 05 Mar, 2013 [facility] [address] [id number] [address] [place] [address], [place] [address] Feb, [facility] [address] [id number] [address] [place] [address], [place] [address] Feb, [facility] [address] [id number] [address] [place] [address], [place] [address] Feb, [facility] [address] [id number] [address] [place] [address], [place] [address] Feb, [facility] [address] [id number] [address] [place] [address], [place] [address] Jan, [facility] [address] [id number] [address] [place] [address], [place] [address] Jan, [facility] [address] [id number] [address] [place] [address], [place] [address] Jan, [facility] [address] [id number] [address] [place] [address], [place] [address] Jan, [facility] [address] [id number] [address] [place] [address], [place] [address] Jan, [facility] [address] [id number] [address] [place] [address], [place] [address] Dec, [facility] [address] [id number] [address] [place] [address], [place] [address] Dec, [facility] [address] [id number] [address] [place] [address], [place] [address] Dec, [facility] [address] [id number] [address] [place] [address], [place] [address] November, [facility] [address] [id number] [address] [place] [address], [place] [address] November, [facility] [address] [id number] [address] [place] [address], [place] [address] November, [facility] [address] [id number] [address] [place] [address], [place] [address] Oct, [facility] [address] [id number] [address] [place] [address], [place] [address] Oct, [facility] [address] [id number] [address] [place] [address], [place] [address] Oct, [facility] [address] [id number] [address] [place] [address], [place] [address] Oct, [facility] [address] [id number] [address] [place] [address], [place] [address] 18 Oct, 2012 [facility] [address] [id number] [address] [place] [address], [place] [address] 17 Oct, 2012 [facility] [address] [id number] [address] [place] [address], [place] [address] 15 Oct, 2012 [facility] [address] [id number] [address] [place] [address], [place] [address] 26 Sep, 2012 [facility] [address] [id number] [address] [place] [address], [place] [address] Sep, [facility] [address] [id number] [address] [place] [address], [place] [address] Sep, [facility] [address] [id number] [address] [place] [address], [place] [address] Sep, [facility] [address] [id number] [address] [place] [address], [place] [address] Aug, [facility] [address] [id number] [address] [place] [address], [place] [address] Aug, [facility] [address] [id number] [address] [place] [address], [place] [address] Aug, [facility] [address] [id number] [address] [place] [address], [place] [address] Aug, [facility] [address] [id number] [address] [place] [address], [place] [address] Aug, [facility] [address] [id number] [address] [place] [address], [place] [address] Aug, [facility] [facility] [address] [id number] [address] [place] [address], [place] [address] Jul, [facility] [address] [id number] [address] [place] [address], [place] [address] Jul, [facility] [address] [id number] [address] [place] [address], [place] [address] Jul, [facility] [address] [id number] [address] [place] [address], [place] [address] Jul, [facility] [address] [id number] [address] [place] [address], [place] [address] Jul, [facility] [address] [id number] [address] [place] [address], [place] [address] Jul, [facility] [address] [id number] [address] [place] [address], [place] [address] Jun, [facility] [address] [id number] [address] [place] [address], [place] [address] Jun, [facility] [address] [id number] [address] [place] [address], [place] [address] Jun, [facility] [address] [id number] [address] [place] [address], [place] [address] Jun, [facility] [address] [id number] [address] [place] [address], [place] [address] Jun, [facility] [address] [id number] [address] [place] [address], [place] [address] Jun, [facility] [address] [id number] [address] [place] [address], [place] [address] May, [facility] [address] [id number] [address] [place] [address], [place] [address] May, [facility] [address] [id number] [address] [place] [address], [place] [address] May, [facility] [address] [id number] [address] [place] [address], [place] [address] May, [facility] [address] [id number] [address] [place] [address], [place] [address] May, [facility] [address] [id number] [address] [place] [address], [place] [address] May, [facility] [address] [id number] [address] [place] [address], [place] [address] May, [facility] [address] [id number] [address] [place] [address], [place] [address] May, [facility] [address] [id number] [address] [place] [address], [place] [address] May, [facility] [address] [id number] [address] [place] [address], [place] [address] May, [facility] [address] [id number] [address] [place] [address], [place] [address] Apr, [facility] [address] [id number] [address] [place] [address] 31 Apr, 2012 [facility] [address] [id number] [address] [place] [address], [place] [address] 23 Apr, 2012 [facility] [address] [id number] [address] [place] [address], [place] [address] 23 Apr, 2012 [facility] [address] [id number] [address] [place] [address], [place] [address] 16 Apr, 2012 [facility] [address] [id number] [address] [place] [address], [place] [address] 16 Apr, 2012 [facility] [address] [id number] [address] [place] [address], [place] [address] 15 Apr, 2012 [facility] [address] [id number] [address] [place] [address], [place] [address] 15 Apr, 2012 [facility] [address] [id number] [address] [place] [address], [place] [address] 05 Apr, 2012 [facility] [address] [id number] [address] [place] [address], [place] [address] 28 Mar, 2012 [facility] [address] [id number] [address] [place] [address], [place] [address] 26 Mar, 2012 [facility] [address] [id number] [address] [place] [address], [place] [address] 25 Mar, 2012 [facility] [address] [id number] [address] [place] [address], [place] [address] 19 Sep2011 [facility] [address] [id number] [address] [place] [address] 18 Sep2011 [facility] [address] [id number] [address] [place] [address], [place] [address] 05 Mar, 2012 [facility] [address] [id number] [address] [place] [address], [place] [address] 28 Feb, 2012 [facility] [address] [id number] [address] [place] [address], [place] [address] 27 Feb, 2012 [facility] [address] [id number] [address] [place] [address], [place] [address] Feb, [facility] [address] [id number] [address] [place] [address], [place] [address] Jan, [facility] [address] [id number] [address] [place] [address], [place] [address] Jan, [facility] [address] [id number] [address] [place] [address], [place] [address] Jan, [facility] [address] [id number] [address] [place] [address], [place] [address] Jan, [facility] [address] [id number] [address] [place] [address], [place] [address] Dec, [facility] [address] [id number] [address] [place] [address], [place] [address] November, [facility] [address] [id number] [address] [place] [address], [place] [address] November, [facility] [address] [id number] [address] [place] [address], [place] [address] November, [facility] [address] [id number] [address] [place] [address], [place] [address] November, [facility] [address] [id number] [address] [place] [address], [place] [address] November, [facility] [address] [id number] [address] [place] [address], [place] [address] November, [facility] [address] [id number] [address] [place] [address], [place] [address] Oct, [facility] [address] [id number] [address] [place] [address], [place] [address] Oct, [facility] [address] [id number] [address] [place] [address], [place] [address] Sep, [facility] [address] [id number] [address] [place] [address], [place] [address] Sep, [facility] [address] [id number] [address] [place] [address], [place] [address] Sep, [facility] [address] [id number] [address] [place] [address], [place] [address] Aug, [facility] [address] [id number] [address] [place] [address], [place] [address] Aug, [facility] [address] [id number] [address] [place] [address], [place] [address] Aug, [facility] [address] [id number] [address] [place] [address], [place] [address] Aug, [facility] [address] [id number] [address] [place] [address], [place] [address] Aug, [facility] [address] [id number] [address] [place] [address], [place] [address] Aug, [facility] [address] [id number] [address] [place] [address], [place] [address] Jul, [facility] [address] [id number] [address] [place] [address], [place] [address] Jul, [facility] [address] [id number] [address] [place] [address], [place] [address] Jul, [facility] [address] [id number] [address] [place] [address], [place] [address] Jul, [facility] [address] [id number] [address] [place] [address], [place] [address] Jul, [facility] [address] [id number] [address] [place] [address], [place] [address] Jul, [facility] [address] [id number] [address] [place] [address], [place] [address] Jul, [facility] [address] [id number] [address] [place] [address], [place] [address] Jul, [facility] [address] [id number] [address] [place] [address], [place] [address] 10 Jul, 2011 [facility] [address] [id number] [address] [place] [address], [place] [address] Jul, [facility] [address] [id number] [address] [place] [address], [place] [address] Jun, [facility] [address] [id number] [address] [place] [address], [place] [address] Jun, [facility] [address] [id number] [address] [place] [address], [place] [address] Jun, [facility] [address] [id number] [address] [place] [address], [place] [address] Jun, [facility] [address] [id number] [address] [place] [address], [place] [address] May, [facility] [address] [id number] [address] [place] [address], [place] [address] May, [facility] [address] [id number] [address] [place] [address], [place] [address] May, [facility] [address] [id number] [address] [place] [address], [place] [address] May, [facility] [address] [id number] [address] [place] [address], [place] [address] Apr, [facility] [address] [id number] [address] [place] [address], [place] [address] Apr, [facility] [address] [id number] [address] [place] [address], [place] [address] November, [facility] [address] [id number] [address] [place] [address], [place] [address] Oct, [facility] [address] [id number] [address] [place] [address], [place] [address] Aug, [facility] [address] [id number] [address] [place] [address], [place] [address] 28 Jun, 2010 [facility] [address] [id number] [address] [place] [address], [place] [address] 28 Jun, 2010 [facility] [address] [id number] [address] [place] [address], [place] [address] 27 Jun, 2010 [facility] [address] [id number] [address] [place] [address], [place] [address] 03 Jun, 2010 [facility] [address] [id number] [address] [place] [address], [place] [address] 29 May, 2010 [facility] [address] [id number] [address] [place] [address], [place] [address] 27 Apr, 2010 [facility] [address] [id number] [address] [place] [address], [place] [address] 13 Oct, 2009 [facility] [address] [id number] [address] [place] [address], [place] [address] 13 Aug, 2009 [facility] [address] [id number] [address] [place] [address], [place] [address] Jul, [facility] [address] [id number] [address] [place] [address], [place] [address] 22 Jun, 2009 [facility] [address] [id number] [address] [place] [address], [place] [address] 16 Jun, 2009 [facility] [address] [id number] [address] [place] [address], [place] [address] 14 Jun, 2009 [facility] [address] [id number] [address] [place] [address] 14 Jun, 2009 [facility] [address] [id number] [address] [place] [address], [place] [address] 09 May, 2009 [facility] [address] [id number] [address] [place] [address], [place] [address] 20 Apr, 2009 [facility] [address] [id number] [address] [place] [address], [place] [address] 15 Mar, 2009 [facility] [address] [id number] [address] [place] [address] 14 Mar, 2009 [facility] [address] [facility] [id number] [address] [place] [address] 11 Dec, 2008 IMMUNIZATIONS No Known Immunizations SOCIAL HISTORY Never Assessed REASON FOR VISIT Controlled Med Refill 04/27/2017 PLAN OF CARE VITAL SIGNS MEDICATIONS Medication [...]
--- OUTSIDE RECORDS SUMMARY | 2019-09-01 05:42 | XMS REPORT ---
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 [id number] [address] [place] [address], [place] [address] Apr, [facility] [address] [id number] [address] [place] [address], [place] [address] Apr, [facility] [address] [id number] [address] [place] [address], [place] [address] Apr, [facility] [address] [id number] [address] [place] [address], [place] [address] Apr, [facility] [address] [id number] [address] [place] [address], [place] [address] Apr, [facility] [address] [id number] [address] [place] [address], [place] [address] Apr, [facility] [address] [id number] [address] [place] [address], [place] [address] Mar, 2013 [facility] [address] [id number] [address] [place] [address], [place] [address] Mar, 2013 [facility] [address] [id number] [address] [place] [address], [place] [address] Mar, 2013 [facility] [address] [id number] [address] [place] [address], [place] [address] Mar, 2013 [facility] [address] [id number] [address] [place] [address], [place] [address] Mar, 2013 [facility] [address] [id number] [address] [place] [address], [place] [address] Mar, 2013 [facility] [address] [id number] [address] [place] [address], [place] [address] Mar, 2013 [facility] [address] [id number] [address] [place] [address], [place] [address] Mar, 2013 [facility] [address] [id number] [address] [place] [address], [place] [address] Mar, 2013 [facility] [address] [id number] [address] [place] [address], [place] [address] Mar, 2013 [facility] [address] [id number] [address] [place] [address], [place] [address] Mar, 2013 [facility] [address] [id number] [address] [place] [address], [place] [address] Mar, 2013 [facility] [address] [id number] [address] [place] [address], [place] [address] Feb, [facility] [address] [id number] [address] [place] [address], [place] [address] Feb, [facility] [address] [id number] [address] [place] [address], [place] [address] Jan, [facility] [address] [id number] [facility] [place] [address] Jan, [facility] [address] [id number] [address] [place] [address], [place] [address] Jan, [facility] [address] [id number] [address] [place] [address], [place] [address] Jan, [facility] [address] [id number] [address] [place] [address], [place] [address] Dec, [facility] [address] [id number] [address] [place] [address], [place] [address] Dec, [facility] [address] [id number] [address] [place] [address], [place] [address] Dec, [facility] [address] [id number] [address] [place] [address], [place] [address] Dec, [facility] [address] [id number] [address] [place] [address], [place] [address] Dec, [facility] [address] [id number] [address] [place] [address], [place] [address] Dec, [facility] [address] [id number] [address] [place] [address], [place] [address] November, [facility] [address] [id number] [address] [place] [address], [place] [address] November, [facility] [address] [id number] [address] [place] [address], [place] [address] November, [facility] [address] [id number] [address] [place] [address], [place] [address] November, [facility] [address] [id number] [address] [place] [address], [place] [address] November, [facility] [address] [id number] [address] [place] [address], [place] [address] November, [facility] [address] [id number] November, [facility] [address] [id number] [address] [place] [address], [place] [address] November, [facility] [address] [id number] [address] [place] [address], [place] [address] November, [facility] [address] [id number] [address] [place] [address], [place] [address] November, [facility] [address] [id number] [address] [place] [address], [place] [address] November, [facility] [address] [id number] [address] [place] [address], [place] [address] November, [facility] [address] [id number] [address] [place] [address], [place] [address] Oct, [facility] [address] [id number] [address] [place] [address], [place] [address] Oct, [facility] [address] [id number] [address] [place] [address], [place] [address] Oct, [facility] [address] [id number] [address] [place] [address], [place] [address] Oct, [facility] [address] [id number] [address] [place] [address], [place] [address] Oct, [facility] [address] [id number] [address] [place] [address], [place] [address] Oct, [facility] [address] [id number] [address] [place] [address], [place] [address] Oct, [facility] [address] [id number] [address] [place] [address], [place] [address] Oct, [facility] [address] [id number] [address] [place] [address], [place] [address] Oct, [facility] [address] [id number] [address] [place] [address], [place] [address] Oct, [facility] [address] [id number] [facility] [place] [address] Oct, [facility] [address] [id number] [address] [place] [address], [place] [address] Oct, [facility] [address] [id number] [address] [place] [address], [place] [address] Oct, [facility] [address] [id number] [address] [place] [address], [place] [address] Oct, [facility] [address] [id number] [address] [place] [address], [place] [address] Oct, [facility] [address] [id number] [address] [place] [address], [place] [address] Sep, [facility] [address] [id number] [address] [place] [address], [place] [address] Sep, [facility] [address] [id number] [address] [place] [address], [place] [address] Sep, [facility] [address] [id number] [address] [place] [address], [place] [address] Sep, [facility] [address] [id number] [address] [place] [address], [place] [address] Aug, [facility] [address] [id number] [address] [place] [address], [place] [address] Aug, [facility] [address] [id number] [address] [place] [address], [place] [address] Aug, [facility] [address] [id number] [address] [place] [address], [place] [address] Aug, [facility] [address] [id number] [address] [place] [address], [place] [address] Jul, [facility] [address] [id number] [address] [place] [address], [place] [address] Jul, [facility] [address] [id number] [address] [place] [address], [place] [address] Jul, [facility] [address] [id number] [address] [place] [address], [place] [address] Jul, [facility] [address] [id number] [address] [place] [address], [place] [address] Jul, [facility] [address] [id number] [address] [place] [address], [place] [address] Jul, [facility] [address] [id number] [address] [place] [address], [place] [address] Jul, [facility] [facility] [address] [id number] [address] [place] [address], [place] [address] Jul, [facility] [address] [id number] [address] [place] [address], [place] [address] Jul, [facility] [address] [id number] [address] [place] [address], [place] [address] Jul, [facility] [address] [id number] [address] [place] [address], [place] [address] Jul, [facility] [address] [id number] [address] [place] [address], [place] [address] Jul, [facility] [address] [id number] [address] [place] [address], [place] [address] Jul, [facility] [address] [id number] [address] [place] [address], [place] [address] Jul, [facility] [address] [id number] [address] [place] [address], [place] [address] Jun, [facility] [address] [id number] [address] [place] [address], [place] [address] Jun, [facility] [address] [id number] [address] [place] [address], [place] [address] Jun, [facility] [address] [id number] [address] [place] [address], [place] [address] Jun, [facility] [address] [id number] [address] [place] [address], [place] [address] May, [facility] [address] [id number] [address] [place] [address], [place] [address] May, [facility] [address] [id number] [address] [place] [address], [place] [address] May, [facility] [address] [id number] [address] [place] [address], [place] [address] May, [facility] [address] [id number] [address] [place] [address], [place] [address] May, [facility] [address] [id number] [address] [place] [address], [place] [address] May, [facility] [address] [id number] [address] [place] [address], [place] [address] May, [facility] [address] [id number] [address] [place] [address], [place] [address] May, [facility] [address] [id number] [address] [place] [address], [place] [address] Apr, [facility] [address] [id number] [address] [place] [address], [place] [address] Apr, [facility] [address] [id number] [address] [place] [address], [place] [address] Apr, [facility] [address] [id number] [address] [place] [address], [place] [address] Apr, [facility] [address] [id number] [address] [place] [address], [place] [address] Apr, [facility] [address] [id number] [address] [place] [address], [place] [address] Apr, [facility] [address] [id number] [address] [place] [address], [place] [address] Mar, [facility] [address] [id number] [address] [place] [address], [place] [address] Mar, 2013 [facility] [address] [id number] [address] [place] [address], [place] [address] 20 Mar, 2013 [facility] [address] [id number] [address] [place] [address], [place] [address] 17 Mar, 2013 [facility] [address] [id number] [address] [place] [address], [place] [address] 16 Mar, 2013 [facility] [address] [id number] [address] [place] [address], [place] [address] 05 Mar, 2013 [facility] [address] [id number] [address] [place] [address], [place] [address] Feb, [facility] [address] [id number] [address] [place] [address], [place] [address] Feb, [facility] [address] [id number] [address] [place] [address], [place] [address] Feb, [facility] [address] [id number] [address] [place] [address], [place] [address] Feb, [facility] [address] [id number] [address] [place] [address], [place] [address] Jan, [facility] [address] [id number] [address] [place] [address], [place] [address] Jan, [facility] [address] [id number] [address] [place] [address], [place] [address] Jan, [facility] [address] [id number] [address] [place] [address], [place] [address] Jan, [facility] [address] [id number] [address] [place] [address], [place] [address] Jan, [facility] [address] [id number] [address] [place] [address], [place] [address] Dec, [facility] [address] [id number] [address] [place] [address], [place] [address] Dec, [facility] [address] [id number] [address] [place] [address], [place] [address] Dec, [facility] [address] [id number] [address] [place] [address], [place] [address] November, [facility] [address] [id number] [address] [place] [address], [place] [address] November, [facility] [address] [id number] [address] [place] [address], [place] [address] November, [facility] [address] [id number] [address] [place] [address], [place] [address] Oct, [facility] [address] [id number] [address] [place] [address], [place] [address] Oct, [facility] [address] [id number] [address] [place] [address], [place] [address] Oct, [facility] [address] [id number] [address] [place] [address], [place] [address] Oct, [facility] [address] [id number] [address] [place] [address], [place] [address] Oct, [facility] [address] [id number] [address] [place] [address], [place] [address] Oct, [facility] [address] [id number] [address] [place] [address], [place] [address] Oct, [facility] [address] [id number] [address] [place] [address], [place] [address] Sep, [facility] [address] [id number] [address] [place] [address], [place] [address] Sep, [facility] [address] [id number] [address] [place] [address], [place] [address] Sep, [facility] [address] [id number] [address] [place] [address], [place] [address] Sep, [facility] [address] [id number] [address] [place] [address], [place] [address] Aug, [facility] [address] [id number] [address] [place] [address], [place] [address] Aug, [facility] [address] [id number] [address] [place] [address], [place] [address] Aug, [facility] [address] [id number] [address] [place] [address], [place] [address] Aug, [facility] [address] [id number] [address] [place] [address], [place] [address] Aug, [facility] [address] [id number] [address] [place] [address], [place] [address] Aug, [facility] [address] [id number] [address] [place] [address], [place] [address] Jul, [facility] [address] [id number] [address] [place] [address], [place] [address] Jul, [facility] [address] [id number] [address] [place] [address], [place] [address] Jul, [facility] [address] [id number] [address] [place] [address], [place] [address] Jul, [facility] [address] [id number] [address] [place] [address], [place] [address] Jul, [facility] [address] [id number] [address] [place] [address], [place] [address] Jul, [facility] [address] [id number] [address] [place] [address], [place] [address] Jun, [facility] [address] [id number] [address] [place] [address], [place] [address] Jun, [facility] [address] [id number] [address] [place] [address], [place] [address] Jun, [facility] [address] [id number] [address] [place] [address], [place] [address] Jun, [facility] [address] [id number] [address] [place] [address], [place] [address] 05 Jun, 2012 [facility] [address] [id number] [address] [place] [address], [place] [address] Jun, [facility] [address] [id number] [address] [place] [address], [place] [address] May, [facility] [address] [id number] [address] [place] [address], [place] [address] May, [facility] [address] [id number] [address] [place] [address], [place] [address] May, [facility] [address] [id number] [address] [place] [address], [place] [address] May, [facility] [address] [id number] [address] [place] [address], [place] [address] May, [facility] [address] [id number] [address] [place] [address], [place] [address] May, [facility] [address] [id number] [address] [place] [address], [place] [address] May, [facility] [address] [id number] [address] [place] [address], [place] [address] May, [facility] [address] [id number] [address] [place] [address], [place] [address] May, [facility] [address] [id number] [address] [place] [address], [place] [address] May, [facility] [address] [id number] [address] [place] [address], [place] [address] Apr, [facility] [address] [id number] [address] [place] [address], [place] [address] Apr, [facility] [address] [id number] [address] [place] [address], [place] [address] Apr, [facility] [address] [id number] [address] [place] [address], [place] [address] Apr, [facility] [address] [id number] [address] [place] [address], [place] [address] 16 Apr, 2012 [facility] [address] [id number] [address] [place] [address], [place] [address] 16 Apr, 2012 [facility] [address] [id number] [address] [place] [address], [place] [address] 15 Apr, 2012 [facility] [address] [id number] [address] [place] [address], [place] [address] 15 Apr, 2012 [facility] [address] [id number] [address] [place] [address], [place] [address] 05 Apr, 2012 [facility] [address] [id number] [address] [place] [address], [place] [address] 28 Mar, 2012 [facility] [address] [id number] [address] [place] [address], [place] [address] 26 Mar, 2012 [facility] [address] [id number] [address] [place] [address], [place] [address] 25 Mar, 2012 [facility] [address] [id number] [address] [place] [address], [place] [address] 19 Mar, 2012 [facility] [address] [id number] [address] [place] [address], [place] [address] 18 Mar, 2012 [facility] [address] [id number] [address] [place] [address], [place] [address] 05 Mar, 2012 [facility] [address] [id number] [address] [place] [address], [place] [address] 28 Feb, 2012 [facility] [address] [id number] [address] [place] [address], [place] [address] Feb, [facility] [address] [id number] [address] [place] [address], [place] [address] Feb, [facility] [address] [id number] [address] [place] [address], [place] [address] Jan, [facility] [address] [id number] [address] [place] [address], [place] [address] Jan, [facility] [address] [id number] [address] [place] [address], [place] [address] Jan, [facility] [address] [id number] [address] [place] [address], [place] [address] Jan, [facility] [address] [id number] [address] [place] [address], [place] [address] Dec, [facility] [address] [id number] [address] [place] [address], [place] [address] November, [facility] [address] [id number] [address] [place] [address], [place] [address] November, [facility] [address] [id number] [address] [place] [address], [place] [address] November, [facility] [address] [id number] [address] [place] [address], [place] [address] November, [facility] [address] [id number] [address] [place] [address], [place] [address] November, [facility] [address] [id number] [address] [place] [address], [place] [address] November, [facility] [address] [id number] [address] [place] [address], [place] [address] Oct, [facility] [address] [id number] [address] [place] [address], [place] [address] Oct, [facility] [address] [id number] [address] [place] [address], [place] [address] Sep, [facility] [address] [id number] [address] [place] [address], [place] [address] Sep, [facility] [address] [id number] [address] [place] [address], [place] [address] Sep, [facility] [address] [id number] [address] [place] [address], [place] [address] Aug, [facility] [address] [id number] [address] [place] [address], [place] [address] 29 Aug, 2011 [facility] [address] [id number] [address] [place] [address], [place] [address] 14 Aug, 2011 [facility] [address] [id number] [address] [place] [address], [place] [address] 09 Aug, 2011 [facility] [address] [id number] [address] [place] [address], [place] [address] 02 Aug, 2011 [facility] [address] [id number] [address] [place] [address], [place] [address] Aug, [facility] [address] [id number] [address] [place] [address], [place] [address] Jul, [facility] [address] [id number] [address] [place] [address], [place] [address] Jul, [facility] [address] [id number] [address] [place] [address], [place] [address] Jul, [facility] [address] [id number] [address] [place] [address], [place] [address] Jul, [facility] [address] [id number] [address] [place] [address], [place] [address] Jul, [facility] [address] [id number] [address] [place] [address], [place] [address] Jul, [facility] [address] [id number] [address] [place] [address], [place] [address] 17 Jul, 2011 [facility] [address] [id number] [address] [place] [address], [place] [address] 12 Jul, 2011 [facility] [address] [id number] [address] [place] [address], [place] [address] 10 Jul, 2011 [facility] [address] [id number] [address] [place] [address], [place] [address] 03 Jul, 2011 [facility] [address] [id number] [address] [place] [address], [place] [address] Jun, [facility] [address] [id number] [address] [place] [address], [place] [address] Jun, [facility] [address] [id number] [address] [place] [address], [place] [address] Jun, [facility] [address] [id number] [address] [place] [address], [place] [address] Jun, [facility] [address] [id number] [address] [place] [address], [place] [address] May, [facility] [address] [id number] [address] [place] [address], [place] [address] May, [facility] [address] [id number] [address] [place] [address], [place] [address] May, [facility] [address] [id number] [address] [place] [address], [place] [address] May, [facility] [address] [id number] [address] [place] [address], [place] [address] Apr, [facility] [address] [id number] [address] [place] [address], [place] [address] Apr, [facility] [address] [id number] [address] [place] [address], [place] [address] November, [facility] [address] [id number] [address] [place] [address], [place] [address] Oct, [facility] [address] [id number] [address] [place] [address], [place] [address] Aug, [facility] [address] [id number] [address] [place] [address], [place] [address] Jun, [facility] [address] [id number] [address] [place] [address], [place] [address] Jun, [facility] [address] [id number] [address] [place] [address], [place] [address] Jun, [facility] [address] [id number] [address] [place] [address] 03 Jun, 2010 [facility] [address] [id number] [address] [place] [address] 29 May, 2010 [facility] [address] [id number] [address] [place] [phone] 27 Apr, 2010 [facility] [address] [id number] [address] [place] [phone] 13 Oct, 2009 [facility] [address] [id number] [address] [place] [phone] 13 Aug, 2009 [facility] [address] [id number] [address] [place] [phone] 20 Jul, 2009 [facility] [address] [id number] [address] [place] [phone] 22 Jun, 2009 [facility] [address] [id number] [address] [place] [phone] 16 Jun, 2009 [facility] [address] [id number] [address] [place] [phone] 14 Jun, 2009 [facility] [address] [id number] [address] [place] [phone] 14 Jun, 2009 [facility] [address] [id number] [address] [place] [phone] 09 May, 2009 [facility] [address] [id number] [address] [place] [phone] 20 Apr, 2009 [facility] [address] [id number] [address] [place] [phone] 15 Mar, 2009 [facility] [address] [id number] [address] [place] [phone] 14 Mar, 2009 [facility] [address] [id number] [address] [place] [phone] 11 Dec, 2008 IMMUNIZATIONS No Known Immunizations SOCIAL HISTORY Never Assessed REASON FOR VISIT Rash has a rash around her mouth that has been there for a month or so and it it ches, PT also has a sore in her nose- [place] PLAN OF CARE Activity Details Follow Up prn Reason: VITAL SIGNS Height 66.0 in 2017-01-05 Weight 200.5 lbs 2017-01-05 Temperature 97.5 degrees Fahrenheit 2017-01-05 Heart Rate 92 bpm 2017-01-05 Respiratory Rate 20 2017-01-05 BMI 32.36 kg/m2 2017-01-05 Blood pressure systolic 128 mmHg 2017-01-05 Blood pressure diastolic 78 mmHg 2017-01-05 MEDICATIONS Medication Instructions Dosage Frequency Start Date End Date Duration S tatus Symbicort 160-4.5 MCG/ACT INHALE TWO PUFFS BY MOUTH TWICE DAILY 30 Active Albuterol Sulfate (2.5 MG/3ML) 0.083% Inhalation 4 times a day as N eeded 3 ml Active Pantoprazole Sodium 40 MG TAKE ONE TABLET BY MOUTH DAILY 90 Active Amoxicillin 500 mg Orally every 12 hrs 2 capsule 12h Dec, 7 6 Jan, 2017 10 day(s) Active Meloxicam 15 MG Orally Once a day 1 tablet as needed 24h 90 days Active Loratadine 10 MG TAKE ONE TABLET BY MOUTH AT BEDTIME FOR ALLERGI ES 30 Active Neurontin 100 MG Orally Once a day at bedtime 1 capsule Oct, Active Duloxetine HCl 60 MG TAKE ONE CAPSULE BY MOUTH ONCE DAILY Active Abilify 5 MG TAKE ONE TABLET BY MOUTH DAILY Active ProAir HFA 108 (90 Base) MCG/ACT Inhalation every 6 hrs 2 puffs as ne eded 6h 30 days Active Nicoderm CQ 21 MG/24HR Transdermal Once a day 1 patch to skin 24h Jun, 30 days Active Metformin HCl 500 MG Orally Twice a day 1 tablet with meals 12h 60 Active Misc. Devices N/A Nebulizer machine May, [...] 2 times per day Mar, Act ariella Amitriptyline HCl 25 MG TAKE ONE TABLET BY MOUTH AT BEDTIME Active RESULTS Name Result Date Reference Range A1C (IN HOUSE) 2017-01-05 A1C IN HOUSE 6.4 4.3 - 5.6 % Previous A1c 6.1 Lot [id number] Exp date 09/2018 PROCEDURES Procedure Date Ordered Result Body Site GLYCATED HEMOGLOBIN TEST January 05, 2017 PENDING SALE TO [facility] VISIT ESTABLISHED PATIENT January 05, 2017 INSTRUCTIONS MEDICATIONS ADMINISTERED No Known Medications [...]
--- OUTSIDE RECORDS SUMMARY | 2019-09-01 05:42 | XMS REPORT ---
Author Olivia Eason Organization [employer] Address Unknown Phone Unavailable Care Team Providers Care Wrapper Rewinder Name Role Phone TYRELL BARILLAS CP Unavailable [...] Date End Date Status Dosage Sumatriptan Succinate [facility] [address]-26 100 MG TAKE ONE TABLET BY MOUTH ONCE DAILY NEEDED MAY REPEAT IN 2 HOURS IF HEADACHE RECURS Results No Known Results Summary Purpose [employer] Submission
--- OUTSIDE RECORDS SUMMARY | 2019-09-01 05:43 | XMS REPORT ---
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 [id number] [address] [place] [address] Apr, [facility] [address] [id number] [address] [place] [address], [place] [address] Apr, [facility] [address] [id number] [address] [place] [address] Apr, [facility] [address] [id number] [address] [place] [address], [place] [address] Apr, [facility] [address] [id number] [address] [place] [address], [place] [address] 02 Apr, 2014 [facility] [address] [id number] [address] [place] [address], [place] [address] Mar, 2013 [facility] [address] [id number] [address] [place] [address], [place] [address] Mar, 2013 [facility] [address] [id number] [address] [place] [address], [place] [address] Mar, 2013 [facility] [address] [id number] [address] [place] [address], [place] [address] Mar, 2013 [facility] [address] [id number] [address] [place] [address], [place] [address] Mar, 2013 [facility] [address] [id number] [address] [place] [address], [place] [address] Mar, 2013 [facility] [address] [id number] [address] [place] [address], [place] [address] Mar, 2013 [facility] [address] [id number] [address] [place] [address], [place] [address] Mar, 2013 [facility] [address] [id number] [address] [place] [address], [place] [address] Mar, 2013 [facility] [address] [id number] [address] [place] [address], [place] [address] Mar, 2013 [facility] [address] [id number] [address] [place] [address], [place] [address] Mar, 2013 [facility] [address] [id number] [address] [place] [address], [place] [address] Mar, 2013 [facility] [address] [id number] [address] [place] [address], [place] [address] Feb, [facility] [address] [id number] [address] [place] [address], [place] [address] Feb, [facility] [address] [id number] [address] [place] [address], [place] [address] Jan, [facility] [address] [id number] [address] [place] [address], [place] [address] Jan, [facility] [address] [id number] [address] [place] [address], [place] [address] Jan, [facility] [address] [id number] [address] [place] [address], [place] [address] Jan, [facility] [address] [id number] [address] [place] [address], [place] [address] Dec, [facility] [address] [id number] [address] [place] [address], [place] [address] Dec, [facility] [address] [id number] [address] [place] [address], [place] [address] Dec, [facility] [address] [id number] [address] [place] [address], [place] [address] Dec, [facility] [address] [id number] [address] [place] [address], [place] [address] Dec, [facility] [address] [id number] [address] [place] [address], [place] [address] Dec, [facility] [address] [id number] [address] [place] [address], [place] [address] November, [facility] [address] [id number] [address] [place] [address], [place] [address] November, [facility] [address] [id number] [address] [place] [address], [place] [address] November, [facility] [address] [id number] [address] [place] [address], [place] [address] November, [facility] [address] [id number] [address] [place] [address], [place] [address] November, [facility] [address] [id number] [address] [place] [address], [place] [address] November, [address] [id number] November, [facility] [address] [id number] [address] [place] [address], [place] [address] November, [facility] [address] [id number] [address] [place] [address], [place] [address] November, [facility] [address] [id number] [address] [place] [address], [place] [address] November, [facility] [address] [id number] [address] [place] [address], [place] [address] November, [facility] [address] [id number] [address] [place] [address], [place] [address] November, [facility] [address] [id number] [address] [place] [address], [place] [address] Oct, [facility] [address] [id number] [address] [place] [address], [place] [address] Oct, [facility] [address] [id number] [address] [place] [address], [place] [address] Oct, [facility] [address] [id number] [address] [place] [address], [place] [address] Oct, [facility] [address] [id number] [address] [place] [address], [place] [address] Oct, [facility] [address] [id number] [address] [place] [address], [place] [address] Oct, [facility] [address] [id number] [address] [place] [address], [place] [address] Oct, [facility] [address] [id number] [address] [place] [address], [place] [address] Oct, [facility] [address] [id number] [address] [place] [address], [place] [address] Oct, [facility] [address] [id number] [address] [place] [address], [place] [address] Oct, [facility] [address] [id number] [address] [place] [address], [place] [address] Oct, [facility] [address] [id number] [facility] [place] [address] Oct, [facility] [address] [id number] [address] [place] [address], [place] [address] Oct, [facility] [address] [id number] [address] [place] [address], [place] [address] Oct, [facility] [address] [id number] [address] [place] [address], [place] [address] Oct, [facility] [address] [id number] [address] [place] [address], [place] [address] Sep, [facility] [address] [id number] [address] [place] [address], [place] [address] Sep, [facility] [address] [id number] [address] [place] [address], [place] [address] Sep, [facility] [address] [id number] [address] [place] [address], [place] [address] Sep, [facility] [address] [id number] [address] [place] [address], [place] [address] Aug, [facility] [address] [id number] [address] [place] [address], [place] [address] Aug, [facility] [address] [id number] [address] [place] [address], [place] [address] Aug, [facility] [address] [id number] [address] [place] [address], [place] [address] Aug, [facility] [address] [id number] [address] [place] [address], [place] [address] Jul, [facility] [address] [id number] [address] [place] [address], [place] [address] Jul, [facility] [address] [id number] [address] [place] [address], [place] [address] Jul, [facility] [address] [id number] [address] [place] [address], [place] [address] Jul, [facility] [address] [id number] [address] [place] [address], [place] [address] Jul, [facility] [address] [id number] [address] [place] [address], [place] [address] Jul, [facility] [address] [id number] [address] [place] [address], [place] [address] Jul, [facility] [address] [id number] [address] [place] [address], [place] [address] Jul, [facility] [address] [id number] [address] [place] [address], [place] [address] Jul, [facility] [address] [id number] [address] [place] [address], [place] [address] Jul, [facility] [address] [id number] [address] [place] [address], [place] [address] Jul, [facility] [address] [id number] [address] [place] [address], [place] [address] Jul, [facility] [address] [id number] [address] [place] [address], [place] [address] Jul, [facility] [address] [id number] [address] [place] [address], [place] [address] Jul, [facility] [address] [id number] [address] [place] [address], [place] [address] Jun, [facility] [address] [id number] [address] [place] [address], [place] [address] Jun, [facility] [address] [id number] [address] [place] [address], [place] [address] Jun, [facility] [address] [id number] [address] [place] [address], [place] [address] Jun, [facility] [address] [id number] [address] [place] [address] May, [facility] [address] [id number] [address] [place] [address], [place] [address] May, [facility] [address] [id number] [address] [place] [address] May, [facility] [address] [id number] [address] [place] [address], [place] [address] May, [facility] [address] [id number] [address] [place] [address] May, [facility] [address] [id number] [address] [place] [address], [place] [address] May, [facility] [address] [id number] [address] [place] [address] May, [facility] [address] [id number] [address] [place] [address] May, [facility] [address] [id number] [address] [place] [address], [place] [address] Apr, [facility] [address] [id number] [address] [place] [address] Apr, [facility] [address] [id number] [address] [place] [address] Apr, [facility] [address] [id number] [address] [place] [address] Apr, [facility] [address] [id number] [address] [place] [address] Apr, [facility] [address] [id number] [address] [place] [address] Apr, [facility] [address] [id number] [address] [place] [address] 30 Mar, 2013 [facility] [address] [id number] [address] [place] [address], [place] [address] Mar, [facility] [address] [id number] [address] [place] [address], [place] [address] 20 Mar, 2013 [facility] [address] [id number] [address] [place] [address], [place] [address] 17 Mar, 2013 [facility] [address] [id number] [address] [place] [address], [place] [address] 16 Mar, 2013 [facility] [address] [id number] [address] [place] [address], [place] [address] 05 Mar, 2013 [facility] [address] [id number] [address] [place] [address], [place] [address] Feb, [facility] [address] [id number] [address] [place] [address], [place] [address] Feb, [facility] [address] [id number] [address] [place] [address], [place] [address] Feb, [facility] [address] [id number] [address] [place] [address], [place] [address] Feb, [facility] [address] [id number] [address] [place] [address], [place] [address] Jan, [facility] [address] [id number] [address] [place] [address], [place] [address] Jan, [facility] [address] [id number] [address] [place] [address], [place] [address] Jan, [facility] [address] [id number] [address] [place] [address], [place] [address] Jan, [facility] [address] [id number] [address] [place] [address], [place] [address] Jan, [facility] [address] [id number] [address] [place] [address], [place] [address] Dec, [facility] [address] [id number] [address] [place] [address], [place] [address] Dec, [facility] [address] [id number] [address] [place] [address], [place] [address] Dec, [facility] [address] [id number] [address] [place] [address], [place] [address] November, [facility] [address] [id number] [address] [place] [address], [place] [address] November, [facility] [address] [id number] [address] [place] [address], [place] [address] November, [facility] [address] [id number] [address] [place] [address], [place] [address] Oct, [facility] [address] [id number] [address] [place] [address], [place] [address] Oct, [facility] [address] [id number] [address] [place] [address], [place] [address] Oct, [facility] [address] [id number] [address] [place] [address], [place] [address] Oct, [facility] [address] [id number] [address] [place] [address], [place] [address] Oct, [facility] [address] [id number] [address] [place] [address], [place] [address] Oct, [facility] [address] [id number] [address] [place] [address], [place] [address] Oct, [facility] [address] [id number] [address] [place] [address], [place] [address] Sep, [facility] [address] [id number] [address] [place] [address], [place] [address] Sep, [facility] [address] [id number] [address] [place] [address], [place] [address] Sep, [facility] [address] [id number] [address] [place] [address], [place] [address] Sep, [facility] [address] [id number] [address] [place] [address], [place] [address] Aug, [facility] [address] [id number] [address] [place] [address], [place] [address] Aug, [facility] [address] [id number] [address] [place] [address], [place] [address] Aug, [facility] [address] [id number] [address] [place] [address], [place] [address] Aug, [facility] [address] [id number] [address] [place] [address], [place] [address] Aug, [facility] [address] [id number] [address] [place] [address], [place] [address] Aug, [facility] [address] [id number] [address] [place] [address], [place] [address] Jul, [facility] [address] [id number] [address] [place] [address], [place] [address] Jul, [facility] [address] [id number] [address] [place] [address], [place] [address] Jul, [facility] [address] [id number] [address] [place] [address], [place] [address] Jul, [facility] [address] [id number] [address] [place] [address], [place] [address] Jul, [facility] [address] [id number] [address] [place] [address], [place] [address] Jul, [facility] [address] [id number] [address] [place] [address], [place] [address] Jun, [facility] [address] [id number] [address] [place] [address], [place] [address] Jun, [facility] [address] [id number] [address] [place] [address], [place] [address] Jun, [facility] [address] [id number] [address] [place] [address], [place] [address] Jun, [facility] [address] [id number] [address] [place] [address], [place] [address] Jun, [facility] [address] [id number] [address] [place] [address], [place] [address] Jun, [facility] [address] [id number] [address] [place] [address], [place] [address] May, [facility] [address] [id number] [address] [place] [address], [place] [address] May, [facility] [address] [id number] [address] [place] [address], [place] [address] May, [facility] [address] [id number] [address] [place] [address], [place] [address] May, [facility] [address] [id number] [address] [place] [address], [place] [address] May, [facility] [address] [id number] [address] [place] [address], [place] [address] May, [facility] [address] [id number] [address] [place] [address], [place] [address] May, [facility] [address] [id number] [address] [place] [address], [place] [address] May, [facility] [address] [id number] [address] [place] [address], [place] [address] May, [facility] [address] [id number] [address] [place] [address], [place] [address] May, [facility] [address] [id number] [address] [place] [address] Apr, [facility] [address] [id number] [address] [place] [address], [place] [address] Apr, [facility] [address] [id number] [address] [place] [address], [place] [address] Apr, [facility] [address] [id number] [address] [place] [address], [place] [address] Apr, [facility] [address] [id number] [address] [place] [address] 16 Apr, 2012 [facility] [address] [id number] [address] [place] [address], [place] [address] 16 Apr, 2012 [facility] [address] [id number] [address] [place] [address], [place] [address] 15 Apr, 2012 [facility] [address] [id number] [address] [place] [address], [place] [address] 15 Apr, 2012 [facility] [address] [id number] [address] [place] [address], [place] [address] 05 Apr, 2012 [facility] [address] [id number] [address] [place] [address], [place] [address] 28 Mar, 2012 [facility] [address] [id number] [address] [place] [address], [place] [address] 26 Mar, 2012 [facility] [address] [id number] [address] [place] [address], [place] [address] 25 Mar, 2012 [facility] [address] [id number] [address] [place] [address], [place] [address] 19 Mar, 2012 [facility] [address] [id number] [address] [place] [address], [place] [address] 18 Mar, 2012 [facility] [address] [id number] [address] [place] [address], [place] [address] 05 Mar, 2012 [facility] [address] [id number] [address] [place] [address], [place] [address] 28 Feb, 2012 [facility] [address] [id number] [address] [place] [address], [place] [address] Feb, [facility] [address] [id number] [address] [place] [address], [place] [address] Feb, [facility] [address] [id number] [address] [place] [address], [place] [address] Jan, [facility] [address] [id number] [address] [place] [address], [place] [address] Jan, [facility] [address] [id number] [address] [place] [address], [place] [address] Jan, [facility] [address] [id number] [address] [place] [address], [place] [address] Jan, [facility] [address] [id number] [address] [place] [address], [place] [address] Dec, [facility] [address] [id number] [address] [place] [address], [place] [address] November, [facility] [address] [id number] [address] [place] [address], [place] [address] November, [facility] [address] [id number] [address] [place] [address], [place] [address] November, [facility] [address] [id number] [address] [place] [address], [place] [address] November, [facility] [address] [id number] [address] [place] [address], [place] [address] November, [facility] [address] [id number] [address] [place] [address], [place] [address] November, [facility] [address] [id number] [address] [place] [address], [place] [address] Oct, [facility] [address] [id number] [address] [place] [address], [place] [address] Oct, [facility] [address] [id number] [address] [place] [address], [place] [address] Sep, [facility] [address] [id number] [address] [place] [address], [place] [address] Sep, [facility] [address] [id number] [address] [place] [address], [place] [address] Sep, [facility] [address] [id number] [address] [place] [address], [place] [address] Aug, [facility] [address] [id number] [address] [place] [address], [place] [address] Aug, 2011 [facility] [address] [id number] [address] [place] [address], [place] [address] 14 Aug, 2011 [facility] [address] [id number] [address] [place] [address], [place] [address] Aug, [facility] [address] [id number] [address] [place] [address], [place] [address] Aug, [facility] [address] [id number] [address] [place] [address], [place] [address] Aug, [facility] [address] [id number] [address] [place] [address], [place] [address] Jul, [facility] [address] [id number] [address] [place] [address], [place] [address] Jul, [facility] [address] [id number] [address] [place] [address], [place] [address] Jul, [facility] [address] [id number] [address] [place] [address], [place] [address] Jul, [facility] [address] [id number] [address] [place] [address], [place] [address] Jul, [facility] [address] [id number] [address] [place] [address], [place] [address] Jul, [facility] [address] [id number] [address] [place] [address], [place] [address] Jul, [facility] [address] [id number] [address] [place] [address], [place] [address] Jul, [facility] [address] [id number] [address] [place] [address], [place] [address] Jul, [facility] [address] [id number] [address] [place] [address], [place] [address] Jul, [facility] [address] [id number] [address] [place] [address], [place] [address] Jun, [facility] [address] [id number] [address] [place] [address], [place] [address] Jun, [facility] [address] [id number] [address] [place] [address], [place] [address] Jun, [facility] [address] [id number] [address] [place] [address], [place] [address] Jun, [facility] [address] [id number] [address] [place] [address], [place] [address] May, [facility] [address] [id number] [address] [place] [address], [place] [address] May, [facility] [address] [id number] [address] [place] [address], [place] [address] May, [facility] [address] [id number] [address] [place] [address], [place] [address] May, [facility] [address] [id number] [address] [place] [address], [place] [address] Apr, [facility] [address] [id number] [address] [place] [address], [place] [address] Apr, [facility] [address] [id number] [address] [place] [address], [place] [address] November, [facility] [address] [id number] [address] [place] [address], [place] [address] Oct, [facility] [address] [id number] [address] [place] [address], [place] [address] Aug, [facility] [address] [id number] [address] [place] [address], [place] [address] Jun, [facility] [address] [id number] [address] [place] [address], [place] [address] Jun, [facility] [address] [id number] [address] [place] [address], [place] [address] Jun, [facility] [address] [id number] [address] [place] [address], [place] [address] Jun, [facility] [address] [id number] [address] [place] [address] 29 May, 2010 [facility] [address] [id number] [address] [place] [address] 27 Apr, 2010 [facility] [address] [id number] [address] [place] [address] Oct, [facility] [address] [id number] [address] [place] [address] Aug, [facility] [address] [id number] [address] [place] [address] Jul, [facility] [address] [id number] [address] [place] [address] Jun, [facility] [address] [id number] [address] [place] [id number] 16 Jun, 2009 [facility] [address] [id number] [address] [place] [address] 14 Jun, 2009 [facility] [address] [id number] [address] [place] [address] 14 Jun, 2009 [facility] [address] [id number] [address] [place] [address] May, [facility] [address] [id number] [address] [place] [phone] 20 Apr, 2009 [facility] [address] [id number] [address] [place] [phone] 15 Mar, 2009 [facility] [address] [id number] [address] [place] [phone] 14 Mar, 2009 [facility] [address] [id number] [address] [place] [phone] Dec, IMMUNIZATIONS No Known Immunizations SOCIAL HISTORY Never Assessed REASON FOR VISIT Controlled Med Refill PLAN OF CARE VITAL SIGNS MEDICATIONS Medication Instructions Dosage Frequency Start Date End Date Duration S joseus Tramadol HCl 50 mg Orally 3 times [...]
--- OUTSIDE RECORDS SUMMARY | 2019-09-01 05:43 | XMS REPORT ---
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 [facility] [address] [id number] [address] [place] [address], [place] [address] Jun, [facility] [address] [id number] [address] [place] [address], [place] [address] Jun, [facility] [address] [id number] [address] [place] [address], [place] [address] Jun, [facility] [address] [id number] [address] [place] [address], [place] [address] Jun, [facility] [address] [id number] [address] [place] [address], [place] [id number] Jun, [facility] [address] [id number] [address] [place] [address], [place] [address] Jun, [facility] [address] [id number] [address] [place] [address], [place] [address] Jun, [facility] [address] [id number] [address] [place] [address], [place] [address] Jun, [facility] [address] [id number] [address] [place] [address], [place] [address] May, [facility] [address] [id number] [address] [place] [address], [place] [address] May, [facility] [address] [id number] [address] [place] [address], [place] [address] May, [facility] [address] [id number] [address] [place] [address], [place] [address] May, [facility] [address] [id number] [address] [place] [address], [place] [address] Apr, [facility] [address] [id number] [address] [place] [address], [place] [address] Apr, [facility] [address] [id number] [address] [place] [address], [place] [address] Apr, [facility] [address] [id number] [address] [place] [address], [place] [address] Apr, [facility] [address] [id number] [address] [place] [address], [place] [address] Apr, [facility] [address] [id number] [address] [place] [address], [place] [address] Apr, [facility] [address] [id number] [address] [place] [address], [place] [address] Apr, [facility] [address] [id number] [address] [place] [address], [place] [address] Apr, [facility] [address] [id number] [address] [place] [address], [place] [address] Apr, [facility] [address] [id number] [address] [place] [address], [place] [address] Apr, [facility] [address] [id number] [address] [place] [address], [place] [address] Mar, [facility] [address] [id number] [facility] [place] [address] Mar, 2013 [facility] [address] [id number] [address] [place] [address], [place] [address] Mar, 2013 [facility] [address] [id number] [address] [place] [address], [place] [address] Mar, 2013 [facility] [address] [id number] [address] [place] [address], [place] [address] Mar, 2013 [facility] [address] [id number] [address] [place] [address], [place] [address] Mar, 2013 [facility] [address] [id number] [address] [place] [address], [place] [address] Mar, 2013 [facility] [address] [id number] [address] [place] [address], [place] [address] Mar, 2013 [facility] [address] [id number] [address] [place] [address], [place] [address] Mar, 2013 [facility] [address] [id number] [address] [place] [address], [place] [address] Mar, 2013 [facility] [address] [id number] [address] [place] [address], [place] [address] Mar, 2013 [facility] [address] [id number] [address] [place] [address], [place] [address] Mar, 2013 [facility] [address] [id number] [address] [place] [address], [place] [address] Feb, [facility] [address] [id number] [address] [place] [address], [place] [address] Feb, [facility] [address] [id number] [address] [place] [address], [place] [address] Jan, [facility] [address] [id number] [address] [place] [address], [place] [address] Jan, [facility] [address] [id number] [address] [place] [address], [place] [address] Jan, [facility] [address] [id number] [address] [place] [address], [place] [address] Jan, [facility] [address] [id number] [address] [place] [address], [place] [address] Dec, [facility] [address] [id number] [address] [place] [address], [place] [address] Dec, [facility] [address] [id number] [address] [place] [address], [place] [address] Dec, [facility] [address] [id number] [address] [place] [address], [place] [address] Dec, [facility] [address] [id number] [address] [place] [address], [place] [address] Dec, [facility] [address] [id number] [address] [place] [address], [place] [address] Dec, [facility] [address] [id number] [address] [place] [address], [place] [address] November, [facility] [address] [id number] [address] [place] [address], [place] [address] November, [facility] [address] [id number] [address] [place] [address], [place] [address] November, [facility] [address] [id number] [address] [place] [address], [place] [address] November, [facility] [address] [id number] [address] [place] [address], [place] [address] November, [facility] [address] [id number] [address] [place] [address], [place] [address] November, [address] [id number] November, [facility] [address] [id number] [address] [place] [address], [place] [address] November, [facility] [address] [id number] [address] [place] [address], [place] [address] November, [facility] [address] [id number] [address] [place] [address], [place] [address] November, [facility] [address] [id number] [address] [place] [address], [place] [address] November, [facility] [address] [id number] [address] [place] [address], [place] [address] November, [facility] [address] [id number] [address] [place] [address], [place] [address] Oct, [facility] [address] [id number] [address] [place] [address], [place] [id number] Oct, [facility] [address] [id number] [address] [place] [address], [place] [id number] Oct, [facility] [address] [id number] [address] [place] [address], [place] [id number] Oct, [facility] [address] [id number] [address] [place] [address], [place] [id number] Oct, [facility] [address] [id number] [address] [place] [address], [place] [id number] Oct, [facility] [address] [id number] [address] [place] [address], [place] [id number] Oct, [facility] [address] [id number] [address] [place] [address], [place] [id number] Oct, [facility] [address] [id number] [address] [place] [address], [place] [id number] Oct, [facility] [address] [id number] [address] [place] [address], [place] [id number] Oct, [facility] [address] [id number] [address] [place] [address], [place] [id number] Oct, [facility] [address] [id number] [address] [place] [address], [place] [id number] Oct, [facility] [address] [id number] [address] [place] [address], [place] [id number] Oct, [facility] [address] [id number] [address] [place] [address], [place] [id number] Oct, [facility] [address] [id number] [address] [place] [address], [place] [id number] Oct, [facility] [address] [id number] [address] [place] [address], [place] [id number] Sep, [facility] [address] [id number] [address] [place] [address], [place] [id number] Sep, [facility] [address] [id number] [address] [place] [address], [place] [id number] Sep, [facility] [address] [id number] [address] [place] [address], [place] [id number] Sep, [facility] [address] [id number] [address] [place] [address], [place] [id number] Aug, [facility] [address] [id number] [address] [place] [address], [place] [id number] Aug, [facility] [address] [id number] [address] [place] [address], [place] [id number] Aug, [facility] [address] [id number] [address] [place] [address], [place] [id number] Aug, [facility] [address] [id number] [address] [place] [address], [place] [id number] Jul, [facility] [address] [id number] [address] [place] [address], [place] [id number] Jul, [facility] [address] [id number] [address] [place] [address], [place] [id number] Jul, [facility] [address] [id number] [address] [place] [address], [place] [id number] Jul, [facility] [address] [id number] [address] [place] [address], [place] [id number] Jul, [facility] [address] [id number] [address] [place] [address], [place] [id number] Jul, [facility] [address] [id number] [address] [place] [address], [place] [id number] Jul, [facility] [address] [id number] [address] [place] [address], [place] [id number] Jul, [facility] [address] [id number] [address] [place] [address], [place] [id number] Jul, [facility] [address] [id number] [address] [place] [address], [place] [id number] Jul, [facility] [address] [id number] [address] [place] [address], [place] [id number] Jul, [facility] [address] [id number] [address] [place] [address], [place] [id number] Jul, [facility] [address] [id number] [address] [place] [address], [place] [id number] Jul, [facility] [address] [id number] [address] [place] [address], [place] [id number] Jul, [facility] [address] [id number] [address] [place] [address], [place] [id number] Jun, [facility] [address] [id number] [address] [place] [address], [place] [id number] Jun, [facility] [address] [id number] [address] [place] [address], [place] [id number] Jun, [facility] [address] [id number] [address] [place] [address], [place] [id number] Jun, [facility] [address] [id number] [address] [place] [address], [place] [id number] May, [facility] [address] [id number] [address] [place] [address], [place] [id number] May, [facility] [address] [id number] [address] [place] [address], [place] [id number] May, [facility] [address] [id number] [address] [place] [address], [place] [id number] May, [facility] [address] [id number] [address] [place] [address], [place] [id number] May, [facility] [address] [id number] [address] [place] [address], [place] [id number] May, [facility] [address] [id number] [address] [place] [address], [place] [id number] May, [facility] [address] [id number] [address] [place] [address], [place] [address] May, [facility] [address] [id number] [address] [place] [address], [place] [address] Apr, [facility] [address] [id number] [address] [place] [address], [place] [address] Apr, [facility] [address] [id number] [address] [place] [address], [place] [address] Apr, [facility] [address] [id number] [address] [place] [address], [place] [address] Apr, [facility] [address] [id number] [address] [place] [address], [place] [address] Apr, [facility] [address] [id number] [address] [place] [address], [place] [address] Apr, [facility] [address] [id number] [address] [place] [address], [place] [address] 30 Mar, 2013 [facility] [address] [id number] [address] [place] [address], [place] [address] 26 Mar, 2013 [facility] [address] [id number] [address] [place] [address], [place] [address] 20 Mar, 2013 [facility] [address] [id number] [address] [place] [address], [place] [address] Mar, [facility] [address] [id number] [address] [place] [address], [place] [address] Mar, [facility] [address] [id number] [address] [place] [address], [place] [address] Mar, [facility] [address] [id number] [address] [place] [address], [place] [address] Feb, [facility] [address] [id number] [address] [place] [address], [place] [address] Feb, [facility] [address] [id number] [address] [place] [address], [place] [address] Feb, [facility] [address] [id number] [address] [place] [address], [place] [address] Feb, [facility] [address] [id number] [address] [place] [address], [place] [address] Jan, [facility] [address] [id number] [address] [place] [address], [place] [address] Jan, [facility] [address] [id number] [address] [place] [address], [place] [address] Jan, [facility] [address] [id number] [address] [place] [address], [place] [address] Jan, [facility] [address] [id number] [address] [place] [address], [place] [address] Jan, [facility] [address] [id number] [address] [place] [address], [place] [address] Dec, [facility] [address] [id number] [address] [place] [address], [place] [address] Dec, [facility] [address] [id number] [address] [place] [address], [place] [address] Dec, [facility] [address] [id number] [address] [place] [address], [place] [address] November, [facility] [address] [id number] [address] [place] [address], [place] [address] November, [facility] [address] [id number] [address] [place] [address], [place] [address] November, [facility] [address] [id number] [address] [place] [address], [place] [address] Oct, [facility] [address] [id number] [address] [place] [address], [place] [address] Oct, [facility] [address] [id number] [address] [place] [address], [place] [address] Oct, [facility] [address] [id number] [address] [place] [address], [place] [address] Oct, [facility] [address] [id number] [address] [place] [address], [place] [address] Oct, [facility] [address] [id number] [address] [place] [address], [place] [address] Oct, [facility] [address] [id number] [address] [place] [address], [place] [address] Oct, [facility] [address] [id number] [address] [place] [address], [place] [address] Sep, [facility] [address] [id number] [address] [place] [address], [place] [address] Sep, [facility] [address] [id number] [address] [place] [address], [place] [address] Sep, [facility] [address] [id number] [address] [place] [address], [place] [address] Sep, [facility] [address] [id number] [address] [place] [address], [place] [address] Aug, [facility] [address] [id number] [address] [place] [address], [place] [address] Aug, [facility] [address] [id number] [address] [place] [address], [place] [address] Aug, [facility] [address] [id number] [address] [place] [address], [place] [address] Aug, [facility] [address] [id number] [address] [place] [address], [place] [address] Aug, [facility] [address] [id number] [address] [place] [address], [place] [address] Aug, [facility] [address] [id number] [address] [place] [address], [place] [address] Jul, [facility] [address] [id number] [address] [place] [address], [place] [address] Jul, [facility] [address] [id number] [address] [place] [address], [place] [address] Jul, [facility] [address] [id number] [address] [place] [address], [place] [address] Jul, [facility] [address] [id number] [address] [place] [address], [place] [address] Jul, [facility] [address] [id number] [address] [place] [address], [place] [address] Jul, [facility] [address] [id number] [address] [place] [address], [place] [address] Jun, [facility] [address] [id number] [address] [place] [address], [place] [address] Jun, [facility] [address] [id number] [address] [place] [address], [place] [address] Jun, [facility] [address] [id number] [address] [place] [address], [place] [address] Jun, [facility] [address] [id number] [address] [place] [address], [place] [address] Jun, [facility] [address] [id number] [address] [place] [address], [place] [address] Jun, [facility] [address] [id number] [address] [place] [address], [place] [address] May, [facility] [address] [id number] [address] [place] [address], [place] [address] May, [facility] [address] [id number] [address] [place] [address], [place] [address] May, [facility] [address] [id number] [address] [place] [address], [place] [address] May, [facility] [address] [id number] [address] [place] [address], [place] [address] May, [facility] [address] [id number] [address] [place] [address], [place] [address] May, [facility] [address] [id number] [address] [place] [address], [place] [address] May, [facility] [address] [id number] [address] [place] [address], [place] [address] May, [facility] [address] [id number] [address] [place] [address], [place] [address] May, [facility] [address] [id number] [address] [place] [address], [place] [address] May, [facility] [address] [id number] [address] [place] [address], [place] [address] Apr, [facility] [address] [id number] [address] [place] [address], [place] [address] 31 Apr, 2012 [facility] [address] [id number] [address] [place] [address], [place] [address] Apr, [facility] [address] [id number] [address] [place] [address], [place] [address] 23 Apr, 2012 [facility] [address] [id number] [address] [place] [address], [place] [address] 16 Apr, 2012 [facility] [address] [id number] [address] [place] [address], [place] [address] 16 Apr, 2012 [facility] [address] [id number] [address] [place] [address], [place] [address] 15 Apr, 2012 [facility] [address] [id number] [address] [place] [address], [place] [address] 15 Apr, 2012 [facility] [address] [id number] [address] [place] [address], [place] [address] Apr, [facility] [address] [id number] [address] [place] [address], [place] [address] 28 Mar, 2012 [facility] [address] [id number] [address] [place] [address], [place] [address] 26 Mar, 2012 [facility] [address] [id number] [address] [place] [address], [place] [address] 25 Mar, 2012 [facility] [address] [id number] [address] [place] [address], [place] [address] 19 Mar, 2012 [facility] [address] [id number] [address] [place] [address], [place] [address] 18 Mar, 2012 [facility] [address] [id number] [address] [place] [address], [place] [address] Mar, [facility] [address] [id number] [address] [place] [address], [place] [address] Feb, [facility] [address] [id number] [address] [place] [address], [place] [address] Feb, [facility] [address] [id number] [address] [place] [address], [place] [address] Feb, [facility] [address] [id number] [address] [place] [address], [place] [address] Jan, [facility] [address] [id number] [address] [place] [address], [place] [address] Jan, [facility] [address] [id number] [address] [place] [address], [place] [address] Jan, [facility] [address] [id number] [address] [place] [address], [place] [address] Jan, [facility] [address] [id number] [address] [place] [address], [place] [address] Dec, [facility] [address] [id number] [address] [place] [address], [place] [address] November, [facility] [address] [id number] [address] [place] [address], [place] [address] November, [facility] [address] [id number] [address] [place] [address], [place] [address] November, [facility] [address] [id number] [address] [place] [address], [place] [address] November, [facility] [address] [id number] [address] [place] [address], [place] [address] November, [facility] [address] [id number] [address] [place] [address], [place] [address] November, [facility] [address] [id number] [address] [place] [address], [place] [address] Oct, [facility] [address] [id number] [address] [place] [address], [place] [address] Oct, [facility] [address] [id number] [address] [place] [address], [place] [address] Sep, [facility] [address] [id number] [address] [place] [address], [place] [address] Sep, [facility] [address] [id number] [address] [place] [address], [place] [address] Sep, [facility] [address] [id number] [address] [place] [address], [place] [address] Aug, [facility] [address] [id number] [address] [place] [address], [place] [address] Aug, [facility] [address] [id number] [address] [place] [address], [place] [address] Aug, [facility] [address] [id number] [address] [place] [address], [place] [address] 09 Aug, 2011 [facility] [address] [id number] [address] [place] [address], [place] [address] Aug, [facility] [address] [id number] [address] [place] [address], [place] [address] Aug, [facility] [address] [id number] [address] [place] [address], [place] [address] Jul, [facility] [address] [id number] [address] [place] [address], [place] [address] Jul, [facility] [address] [id number] [address] [place] [address], [place] [address] Jul, [facility] [address] [id number] [address] [place] [address], [place] [address] Jul, [facility] [address] [id number] [address] [place] [address], [place] [address] Jul, [facility] [address] [id number] [address] [place] [address], [place] [address] Jul, [facility] [address] [id number] [address] [place] [address], [place] [address] Jul, [facility] [address] [id number] [address] [place] [address], [place] [address] Jul, [facility] [address] [id number] [address] [place] [address], [place] [address] Jul, [facility] [address] [id number] [address] [place] [address], [place] [address] Jul, [facility] [address] [id number] [address] [place] [address], [place] [address] Jun, [facility] [address] [id number] [address] [place] [address], [place] [address] Jun, [facility] [address] [id number] [address] [place] [address] [address] Jun, [facility] [address] [id number] [address] [place] [address], [place] [address] Jun, [facility] [address] [id number] [address] [place] [address], [place] [address] 30 May, 2011 [facility] [address] [id number] [address] [place] [address], [place] [address] May, [facility] [address] [id number] [address] [place] [address], [place] [address] May, [facility] [address] [id number] [address] [place] [address], [place] [address] May, [facility] [address] [id number] [address] [place] [address], [place] [address] Apr, [facility] [address] [id number] [address] [place] [address], [place] [address] Apr, [facility] [address] [id number] [address] [place] [address], [place] [address] November, [facility] [address] [id number] [address] [place] [address], [place] [address] Oct, [facility] [address] [id number] [address] [place] [address], [place] [address] Aug, [facility] [address] [id number] [address] [place] [address], [place] [address] Jun, [facility] [address] [id number] [address] [place] [address], [place] [address] Jun, [facility] [address] [id number] [address] [place] [address], [place] [address] Jun, [facility] [address] [id number] [address] [place] [address], [place] [address] Jun, [facility] [address] [id number] [address] [place] [address], [place] [id number] 29 May, 2010 [facility] [address] [id number] [address] [place] [id number] 27 Apr, 2010 [facility] [address] [id number] [address] [place] [id number] Oct, [facility] [address] [id number] [address] [place] [id number] 13 Aug, 2009 [facility] [address] [id number] [address] [place] [address] Jul, [facility] [address] [id number] [address] [place] [address] 22 Jun, 2009 [facility] [address] [id number] [address] [place] [id number] 16 Jun, 2009 [facility] [address] [id number] [address] [place] [id number] 14 Jun, 2009 [facility] [address] [id number] [address] [place] [id number] 14 Jun, 2009 [facility] [address] [id number] [address] [place] [id number] 09 May, 2009 [facility] [address] [id number] [address] [place] [id number] 20 Apr, 2009 [facility] [address] [id number] [address] [place] [id number] 15 Mar, 2009 [facility] [address] [id number] [address] [place] [id number] 14 Mar, 2009 [facility] [address] [id number] [address] [place] [id number] 11 Dec, 2008 IMMUNIZATIONS No Known Immunizations [...]
--- OUTSIDE RECORDS SUMMARY | 2019-09-01 05:44 | XMS REPORT ---
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 [address], [place] [address] Jun, [facility] [address] [id number] [address] [place] [address], [place] [address] Jun, [facility] [address] [id number] [address] [place] [address], [place] [address] Jun, [facility] [address] [id number] [address] [place] [address], [place] [address] Jun, [facility] [address] [id number] [address] [place] [address], [place] [address] Jun, [facility] [address] [id number] [address] [place] [address], [place] [address] Jun, [facility] [address] [id number] [address] [place] [address], [place] [address] Jun, [facility] [address] [id number] [address] [place] [address], [place] [address] Jun, [facility] [address] [id number] [address] [place] [address], [place] [address] Jun, [facility] [address] [id number] [address] [place] [address], [place] [address] Jun, [facility] [address] [id number] [address] [place] [address], [place] [address] Jun, [facility] [address] [id number] [address] [place] [address], [place] [address] Jun, [facility] [address] [id number] [address] [place] [address], [place] [address] Jun, [facility] [address] [id number] [address] [place] [address], [place] [address] Jun, [facility] [address] [id number] [address] [place] [address], [place] [address] Jun, [facility] [address] [id number] [address] [place] [address], [place] [address] Jun, [facility] [address] [id number] [address] [place] [address], [place] [address] May, [facility] [address] [id number] [address] [place] [address], [place] [address] May, [facility] [address] [id number] [address] [place] [address], [place] [address] May, [facility] [address] [id number] [address] [place] [address], [place] [address] May, [facility] [address] [id number] [address] [place] [address], [place] [address] Apr, [facility] [address] [id number] [address] [place] [address], [place] [address] Apr, [facility] [address] [id number] [address] [place] [address], [place] [address] Apr, [facility] [address] [id number] [address] [place] [address], [place] [address] Apr, [facility] [address] [id number] [address] [place] [address], [place] [address] Apr, [facility] [address] [id number] [address] [place] [address], [place] [address] Apr, [facility] [address] [id number] [address] [place] [address], [place] [address] Apr, [facility] [address] [id number] [address] [place] [address], [place] [address] Apr, [facility] [address] [id number] [address] [place] [address], [place] [address] Apr, [facility] [address] [id number] [address] [place] [address], [place] [address] Apr, [facility] [address] [id number] [address] [place] [address], [place] [address] 29 Mar, 2014 [facility] [address] [id number] [address] [place] [address], [place] [address] 29 Mar, 2014 [facility] [address] [id number] [address] [place] [address], [place] [address] 29 Mar, 2014 [facility] [address] [id number] [facility] [place] [address] 29 Mar, 2013 [facility] [address] [id number] [address] [place] [address], [place] [address] Mar, 2013 [facility] [address] [id number] [address] [place] [address], [place] [address] Mar, 2013 [facility] [address] [id number] [address] [place] [address], [place] [address] Mar, 2013 [facility] [address] [id number] [address] [place] [address], [place] [address] Mar, 2013 [facility] [address] [id number] [address] [place] [address], [place] [address] Mar, 2013 [facility] [address] [id number] [address] [place] [address], [place] [address] Mar, 2013 [facility] [address] [id number] [address] [place] [address], [place] [address] Mar, 2013 [facility] [address] [id number] [address] [place] [address], [place] [address] Mar, 2013 [facility] [address] [id number] [address] [place] [address], [place] [address] Feb, [facility] [address] [id number] [address] [place] [address], [place] [address] Feb, [facility] [address] [id number] [address] [place] [address], [place] [address] Jan, [facility] [address] [id number] [address] [place] [address], [place] [address] Jan, [facility] [address] [id number] [address] [place] [address], [place] [address] Jan, [facility] [address] [id number] [address] [place] [address], [place] [address] Jan, [facility] [address] [id number] [address] [place] [address], [place] [address] Dec, [facility] [address] [id number] [address] [place] [address], [place] [address] Dec, [facility] [address] [id number] [address] [place] [address], [place] [address] Dec, [facility] [address] [id number] [address] [place] [address], [place] [address] Dec, [facility] [address] [id number] [address] [place] [address], [place] [address] Dec, [facility] [address] [id number] [address] [place] [address], [place] [address] Dec, [facility] [address] [id number] [address] [place] [address], [place] [address] November, [facility] [address] [id number] [address] [place] [address], [place] [address] November, [facility] [address] [id number] [address] [place] [address], [place] [address] November, [facility] [address] [id number] [address] [place] [address], [place] [address] November, [facility] [address] [id number] [address] [place] [address], [place] [address] November, [facility] [address] [id number] [address] [place] [address], [place] [address] November, [address] [id number] November, [facility] [address] [id number] [address] [place] [address], [place] [address] November, [facility] [address] [id number] [address] [place] [address], [place] [address] November, [facility] [address] [id number] [address] [place] [address], [place] [address] November, [facility] [address] [id number] [address] [place] [address], [place] [address] November, [facility] [address] [id number] [address] [place] [address], [place] [address] November, [facility] [address] [id number] [address] [place] [address], [place] [address] Oct, [facility] [address] [id number] [address] [place] [address], [place] [address] Oct, [facility] [address] [id number] [address] [place] [address], [place] [address] Oct, [facility] [address] [id number] [address] [place] [address], [place] [address] Oct, [facility] [address] [id number] [address] [place] [address], [place] [address] Oct, [facility] [address] [id number] [address] [place] [address], [place] [address] Oct, [facility] [address] [id number] [address] [place] [address], [place] [address] Oct, [facility] [address] [id number] [address] [place] [address], [place] [address] Oct, [facility] [address] [id number] [address] [place] [address], [place] [address] Oct, [facility] [address] [id number] [address] [place] [address], [place] [address] Oct, [facility] [address] [id number] [address] [place] [address], [place] [address] Oct, [facility] [address] [id number] [address] [place] [address], [place] [address] Oct, [facility] [address] [id number] [address] [place] [address], [place] [address] Oct, [facility] [address] [id number] [address] [place] [address], [place] [address] Oct, [facility] [address] [id number] [address] [place] [address], [place] [address] Oct, [facility] [address] [id number] [address] [place] [address], [place] [address] Sep, [facility] [address] [id number] [address] [place] [address], [place] [address] Sep, [facility] [address] [id number] [address] [place] [address], [place] [address] Sep, [facility] [address] [id number] [address] [place] [address], [place] [address] Sep, [facility] [address] [id number] [address] [place] [address], [place] [address] Aug, [facility] [address] [id number] [address] [place] [address], [place] [address] Aug, [facility] [address] [id number] [address] [place] [address], [place] [address] Aug, [facility] [address] [id number] [address] [place] [address], [place] [address] Aug, [facility] [address] [id number] [address] [place] [address], [place] [address] Jul, [facility] [address] [id number] [address] [place] [address], [place] [address] Jul, [facility] [address] [id number] [address] [place] [address], [place] [address] Jul, [facility] [address] [id number] [address] [place] [address], [place] [address] Jul, [facility] [address] [id number] [address] [place] [address], [place] [address] Jul, [facility] [address] [id number] [address] [place] [address], [place] [address] Jul, [facility] [address] [id number] [address] [place] [address], [place] [address] Jul, [facility] [address] [id number] [address] [place] [address], [place] [address] Jul, [facility] [address] [id number] [address] [place] [address], [place] [address] Jul, [facility] [address] [id number] [address] [place] [address], [place] [address] Jul, [facility] [address] [id number] [address] [place] [address], [place] [address] Jul, [facility] [address] [id number] [address] [place] [address], [place] [address] Jul, [facility] [address] [id number] [address] [place] [address], [place] [address] Jul, [facility] [address] [id number] [address] [place] [address], [place] [address] Jul, [facility] [address] [id number] [address] [place] [address], [place] [address] Jun, [facility] [address] [id number] [address] [place] [address], [place] [address] Jun, [facility] [address] [id number] [address] [place] [address], [place] [address] Jun, [facility] [address] [id number] [address] [place] [address], [place] [address] Jun, [facility] [address] [id number] [address] [place] [address], [place] [address] May, [facility] [address] [id number] [address] [place] [address], [place] [address] May, [facility] [address] [id number] [address] [place] [address], [place] [address] May, [facility] [address] [id number] [address] [place] [address], [place] [address] May, [facility] [address] [id number] [address] [place] [address], [place] [address] May, [facility] [address] [id number] [address] [place] [address], [place] [address] May, [facility] [address] [id number] [address] [place] [address], [place] [address] May, [facility] [address] [id number] [address] [place] [address], [place] [address] May, [facility] [address] [id number] [address] [place] [address], [place] [address] Apr, [facility] [address] [id number] [address] [place] [address], [place] [address] Apr, [facility] [address] [id number] [address] [place] [address], [place] [address] Apr, [facility] [address] [id number] [address] [place] [address], [place] [address] Apr, [facility] [address] [id number] [address] [place] [address], [place] [address] Apr, [facility] [address] [id number] [address] [place] [address], [place] [address] Apr, [facility] [address] [id number] [address] [place] [address], [place] [address] 30 Mar, 2013 [facility] [address] [id number] [address] [place] [address], [place] [address] 26 Sep, 2012 [facility] [address] [id number] [address] [place] [address], [place] [address] 20 Sep, 2012 [facility] [address] [id number] [address] [place] [address], [place] [address] 17 Sep, 2012 [facility] [address] [id number] [address] [place] [address], [place] [address] 16 Sep, 2012 [facility] [address] [id number] [address] [place] [address], [place] [address] Mar, [facility] [address] [id number] [address] [place] [address], [place] [address] Feb, [facility] [address] [id number] [address] [place] [address], [place] [address] Feb, [facility] [address] [id number] [address] [place] [address], [place] [address] Feb, [facility] [address] [id number] [address] [place] [address], [place] [address] Feb, [facility] [address] [id number] [address] [place] [address], [place] [address] Jan, [facility] [address] [id number] [address] [place] [address], [place] [address] Jan, [facility] [address] [id number] [address] [place] [address], [place] [address] Jan, [facility] [address] [id number] [address] [place] [address], [place] [address] Jan, [facility] [address] [id number] [address] [place] [address], [place] [address] Jan, [facility] [address] [id number] [address] [place] [address], [place] [address] Dec, [facility] [address] [id number] [address] [place] [address], [place] [address] Dec, [facility] [address] [id number] [address] [place] [address], [place] [address] Dec, [facility] [address] [id number] [address] [place] [address], [place] [address] November, [facility] [address] [id number] [address] [place] [address], [place] [address] November, [facility] [address] [id number] [address] [place] [address], [place] [address] November, [facility] [address] [id number] [address] [place] [address], [place] [address] 27 Oct, 2012 [facility] [address] [id number] [address] [place] [address], [place] [address] 26 Oct, 2012 [facility] [address] [id number] [address] [place] [address], [place] [address] Oct, [facility] [address] [id number] [address] [place] [address], [place] [address] 25 Oct, 2012 [facility] [address] [id number] [address] [place] [address], [place] [address] 18 Oct, 2012 [facility] [address] [id number] [address] [place] [address], [place] [address] 17 Oct, 2012 [facility] [address] [id number] [address] [place] [address], [place] [address] 15 Oct, 2012 [facility] [address] [id number] [address] [place] [address], [place] [address] Sep, [facility] [address] [id number] [address] [place] [address], [place] [address] Sep, [facility] [address] [id number] [address] [place] [address], [place] [address] 06 Sep, 2012 [facility] [address] [id number] [address] [place] [address], [place] [address] Sep, [facility] [address] [id number] [address] [place] [address], [place] [address] Aug, [facility] [address] [id number] [address] [place] [address], [place] [address] Aug, [facility] [address] [id number] [address] [place] [address], [place] [address] Aug, [facility] [address] [id number] [address] [place] [address], [place] [address] Aug, [facility] [address] [id number] [address] [place] [address], [place] [address] 18 Aug, 2012 [facility] [address] [id number] [address] [place] [address], [place] [address] Aug, [facility] [address] [id number] [address] [place] [address], [place] [address] Jul, [facility] [address] [id number] [address] [place] [address], [place] [address] Jul, [facility] [address] [id number] [address] [place] [address], [place] [address] Jul, [facility] [address] [id number] [address] [place] [address], [place] [address] Jul, [facility] [address] [id number] [address] [place] [address], [place] [address] Jul, [facility] [address] [id number] [address] [place] [address], [place] [address] Jul, [facility] [address] [id number] [address] [place] [address], [place] [address] Jun, [facility] [address] [id number] [address] [place] [address], [place] [address] Jun, [facility] [address] [id number] [address] [place] [address], [place] [address] Jun, [facility] [address] [id number] [address] [place] [address], [place] [address] Jun, [facility] [address] [id number] [address] [place] [address], [place] [address] Jun, [facility] [address] [id number] [address] [place] [address], [place] [address] Jun, [facility] [address] [id number] [address] [place] [address], [place] [address] May, [facility] [address] [id number] [address] [place] [address], [place] [address] May, [facility] [address] [id number] [address] [place] [address], [place] [address] May, [facility] [address] [id number] [address] [place] [address], [place] [address] May, [facility] [address] [id number] [address] [place] [address], [place] [address] May, [facility] [address] [id number] [address] [place] [address], [place] [address] May, [facility] [address] [id number] [address] [place] [address], [place] [address] May, [facility] [address] [id number] [address] [place] [address], [place] [address] May, [facility] [address] [id number] [address] [place] [address], [place] [address] May, [facility] [address] [id number] [address] [place] [address], [place] [address] May, [facility] [address] [id number] [address] [place] [address], [place] [address] Apr, [facility] [address] [id number] [address] [place] [address], [place] [address] 31 Apr, 2012 [facility] [address] [id number] [address] [place] [address], [place] [address] Apr, [facility] [address] [id number] [address] [place] [address], [place] [address] 23 Apr, 2012 [facility] [address] [id number] [address] [place] [address], [place] [address] 16 Apr, 2012 [facility] [address] [id number] [address] [place] [address], [place] [address] 16 Apr, 2012 [facility] [address] [id number] [address] [place] [address], [place] [address] 15 Apr, 2012 [facility] [address] [id number] [address] [place] [address], [place] [address] 15 Apr, 2012 [facility] [address] [id number] [address] [place] [address], [place] [address] 05 Apr, 2012 [facility] [address] [id number] [address] [place] [address], [place] [address] 28 Mar, 2012 [facility] [address] [id number] [address] [place] [address], [place] [address] 26 Mar, 2012 [facility] [address] [id number] [address] [place] [address], [place] [address] 25 Mar, 2012 [facility] [address] [id number] [address] [place] [address], [place] [address] 19 Mar, 2012 [facility] [address] [id number] [address] [place] [address], [place] [address] 18 Mar, 2012 [facility] [address] [id number] [address] [place] [address], [place] [address] Mar, [facility] [address] [id number] [address] [place] [address], [place] [address] Feb, [facility] [address] [id number] [address] [place] [address], [place] [address] Feb, [facility] [address] [id number] [address] [place] [address], [place] [address] Feb, [facility] [address] [id number] [address] [place] [address], [place] [address] Jan, [facility] [address] [id number] [address] [place] [address], [place] [address] Jan, [facility] [address] [id number] [address] [place] [address], [place] [address] Jan, [facility] [address] [id number] [address] [place] [address], [place] [address] Jan, [facility] [address] [id number] [address] [place] [address], [place] [address] Dec, [facility] [address] [id number] [address] [place] [address], [place] [address] November, [facility] [address] [id number] [address] [place] [address], [place] [address] November, [facility] [address] [id number] [address] [place] [address], [place] [address] November, [facility] [address] [id number] [address] [place] [address], [place] [address] November, [facility] [address] [id number] [address] [place] [address], [place] [address] November, [facility] [address] [id number] [address] [place] [address], [place] [address] November, [facility] [address] [id number] [address] [place] [address], [place] [address] Oct, [facility] [address] [id number] [address] [place] [address], [place] [address] Oct, [facility] [address] [id number] [address] [place] [address], [place] [address] Sep, [facility] [address] [id number] [address] [place] [address], [place] [address] Sep, [facility] [address] [id number] [address] [place] [address], [place] [address] Sep, [facility] [address] [id number] [address] [place] [address], [place] [address] Aug, [facility] [address] [id number] [address] [place] [address], [place] [address] Aug, [facility] [address] [id number] [address] [place] [address], [place] [address] Aug, [facility] [address] [id number] [address] [place] [address], [place] [address] Aug, [facility] [address] [id number] [address] [place] [address], [place] [address] Aug, [facility] [address] [id number] [address] [place] [address], [place] [address] Aug, [facility] [address] [id number] [address] [place] [address], [place] [address] Jul, [facility] [address] [id number] [address] [place] [address], [place] [address] Jul, [facility] [address] [id number] [address] [place] [address], [place] [address] Jul, [facility] [address] [id number] [address] [place] [address], [place] [address] Jul, [facility] [address] [id number] [address] [place] [address], [place] [address] Jul, [facility] [address] [id number] [address] [place] [address], [place] [address] Jul, [facility] [address] [id number] [address] [place] [address], [place] [address] Jul, [facility] [address] [id number] [address] [place] [address], [place] [address] Jul, [facility] [address] [id number] [address] [place] [address], [place] [address] Jul, [facility] [address] [id number] [address] [place] [address], [place] [address] Jul, [facility] [address] [id number] [address] [place] [address], [place] [address] Jun, [facility] [address] [id number] [address] [place] [address], [place] [address] Jun, [facility] [address] [id number] [address] [place] [address], [place] [address] Jun, [facility] [address] [id number] [address] [place] [address], [place] [address] Jun, [facility] [address] [id number] [address] [place] [address] [address] 30 May, 2011 [facility] [address] [id number] [address] [place] [address], [place] [address] 29 May, 2011 [facility] [address] [id number] [address] [place] [address], [place] [address] 22 May, 2011 [facility] [address] [id number] [address] [place] [address], [place] [address] 08 May, 2011 [facility] [address] [id number] [address] [place] [address], [place] [address] 31 Apr, 2011 [facility] [address] [id number] [address] [place] [address], [place] [address] 31 Apr, 2011 [facility] [address] [id number] [address] [place] [address], [place] [address] November, [facility] [address] [id number] [address] [place] [address], [place] [id number] 18 Oct, 2010 [facility] [address] [id number] [address] [place] [address], [place] [id number] 17 Aug, 2010 [facility] [address] [id number] [address] [place] [address], [place] [address] Jun, [facility] [address] [id number] [address] [place] [address], [place] [address] 28 Jun, 2010 [facility] [address] [id number] [address] [place] [address], [place] [address] Jun, [facility] [address] [id number] [address] [place] [address], [place] [address] 03 Jun, 2010 [facility] [address] [id number] [address] [place] [address], [place] [address] 29 May, 2010 [facility] [address] [id number] [address] [place] [address], [place] [id number] 27 Apr, 2010 [facility] [address] [id number] [address] [place] [address], [place] [id number] 13 Oct, 2009 [facility] [address] [id number] [address] [place] [id number] 13 Aug, 2009 [facility] [address] [id number] [address] [place] [id number] Jul, [facility] [address] [id number] [address] [place] [id number] Jun, [facility] [address] [id number] [address] [place] [id number] 16 Jun, 2009 [facility] [address] [id number] [address] [place] [id number] [address] Jun, [address] [facility] [address] [id number] [address] [place] [id number] Jun, [facility] [address] [id number] [address] [place] [id number] May, [facility] [address] [facility] [id number] [address] [place] [id number] Apr, [facility] [address] [id number] [address] [place] [id number] 15 Mar, 2009 [facility] [address] [id number] [address] [place] [id number] [address] Mar, [address] [facility] [address] [facility] [id number] [address] [place] [id number] Dec, IMMUNIZATIONS No Known Immunizations SOCIAL HISTORY Never Assessed REASON FOR VISIT PLAN OF CARE VITAL SIGNS Height 65 in 2014-04-13 Weight 191.12 lbs 2014-04-13 Temperature 97.3 degrees Fahrenheit 2014-04-13 Heart Rate 76 bpm 2014-04-13 Respiratory Rate 28 2014-04-13 Blood pressure systolic 120 mmHg 2014-04-13 Blood pressure diastolic 86 mmHg 2014-04-13 MEDICATIONS Unknown Medications RESULTS No Results PROCEDURES [...]
--- OUTSIDE RECORDS SUMMARY | 2019-09-01 05:44 | XMS REPORT ---
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 [place] [address] Jun, [facility] [address] [id number] [address] [place] [address], [place] [address] Jun, [facility] [address] [id number] [address] [place] [address], [place] [address] Jun, [facility] [address] [id number] [address] [place] [address], [place] [address] Jun, [facility] [address] [id number] [address] [place] [address], [place] [address] Jun, [facility] [address] [id number] [address] [place] [address], [place] [address] Jun, [facility] [address] [id number] [address] [place] [address], [place] [address] Jun, [facility] [address] [id number] [address] [place] [address], [place] [address] Jun, [facility] [address] [id number] [address] [place] [address], [place] [address] Jun, [facility] [address] [id number] [address] [place] [address], [place] [address] Jun, [facility] [address] [id number] [address] [place] [address], [place] [address] Jun, [facility] [address] [id number] [address] [place] [address], [place] [address] Jun, [facility] [address] [id number] [address] [place] [address], [place] [address] Jun, [facility] [address] [id number] [address] [place] [address], [place] [address] Jun, [facility] [address] [id number] [address] [place] [address], [place] [address] Jun, [facility] [address] [id number] [address] [place] [address], [place] [address] Jun, [facility] [address] [id number] [address] [place] [address], [place] [address] May, [facility] [address] [id number] [address] [place] [address], [place] [address] May, [facility] [address] [id number] [address] [place] [address], [place] [address] May, [facility] [address] [id number] [address] [place] [address], [place] [address] May, [facility] [address] [id number] [address] [place] [address], [place] [address] Apr, [facility] [address] [id number] [address] [place] [address], [place] [address] Apr, [facility] [address] [id number] [address] [place] [address], [place] [address] Apr, [facility] [address] [id number] [address] [place] [address], [place] [address] Apr, [facility] [address] [id number] [address] [place] [address], [place] [address] Apr, [facility] [address] [id number] [address] [place] [address], [place] [address] Apr, [facility] [address] [id number] [address] [place] [address], [place] [address] Apr, [facility] [address] [id number] [address] [place] [address], [place] [address] Apr, [facility] [address] [id number] [address] [place] [address], [place] [address] Apr, [facility] [address] [id number] [address] [place] [address], [place] [address] Apr, [facility] [address] [id number] [address] [place] [address], [place] [address] 29 Mar, 2014 [facility] [address] [id number] [address] [place] [address], [place] [address] 29 Mar, 2014 [facility] [address] [id number] [address] [place] [address], [place] [address] 29 Mar, 2014 [facility] [address] [id number] [facility] [place] [address] 29 Mar, 2013 [facility] [address] [id number] [address] [place] [address], [place] [address] Mar, 2013 [facility] [address] [id number] [address] [place] [address], [place] [address] Mar, 2013 [facility] [address] [id number] [address] [place] [address], [place] [address] Mar, 2013 [facility] [address] [id number] [address] [place] [address], [place] [address] Mar, 2013 [facility] [address] [id number] [address] [place] [address], [place] [address] Mar, 2013 [facility] [address] [id number] [address] [place] [address], [place] [address] Mar, 2013 [facility] [address] [id number] [address] [place] [address], [place] [address] Mar, 2013 [facility] [address] [id number] [address] [place] [address], [place] [address] Mar, 2013 [facility] [address] [id number] [address] [place] [address], [place] [address] Feb, [facility] [address] [id number] [address] [place] [address], [place] [address] Feb, [facility] [address] [id number] [address] [place] [address], [place] [address] Jan, [facility] [address] [id number] [address] [place] [address], [place] [address] Jan, [facility] [address] [id number] [address] [place] [address], [place] [address] Jan, [facility] [address] [id number] [address] [place] [address], [place] [address] Jan, [facility] [address] [id number] [address] [place] [address], [place] [address] Dec, [facility] [address] [id number] [address] [place] [address], [place] [address] Dec, [facility] [address] [id number] [address] [place] [address], [place] [address] Dec, [facility] [address] [id number] [address] [place] [address], [place] [address] Dec, [facility] [address] [id number] [address] [place] [address], [place] [address] Dec, [facility] [address] [id number] [address] [place] [address], [place] [address] Dec, [facility] [address] [id number] [address] [place] [address], [place] [address] November, [facility] [address] [id number] [address] [place] [address], [place] [address] November, [facility] [address] [id number] [address] [place] [address], [place] [address] November, [facility] [address] [id number] [address] [place] [address], [place] [address] November, [facility] [address] [id number] [address] [place] [address], [place] [address] November, [facility] [address] [id number] [address] [place] [address], [place] [address] November, [address] [id number] November, [facility] [address] [id number] [address] [place] [address], [place] [address] November, [facility] [address] [id number] [address] [place] [address], [place] [address] November, [facility] [address] [id number] [address] [place] [address], [place] [address] November, [facility] [address] [id number] [address] [place] [address], [place] [address] November, [facility] [address] [id number] [address] [place] [address], [place] [address] November, [facility] [address] [id number] [address] [place] [address], [place] [address] Oct, [facility] [address] [id number] [address] [place] [address], [place] [address] Oct, [facility] [address] [id number] [address] [place] [address], [place] [address] Oct, [facility] [address] [id number] [address] [place] [address], [place] [address] Oct, [facility] [address] [id number] [address] [place] [address], [place] [address] Oct, [facility] [address] [id number] [address] [place] [address], [place] [address] Oct, [facility] [address] [id number] [address] [place] [address], [place] [address] Oct, [facility] [address] [id number] [address] [place] [address], [place] [address] Oct, [facility] [address] [id number] [address] [place] [address], [place] [address] Oct, [facility] [address] [id number] [address] [place] [address], [place] [address] Oct, [facility] [address] [id number] [address] [place] [address], [place] [address] Oct, [facility] [address] [id number] [address] [place] [address], [place] [address] Oct, [facility] [address] [id number] [address] [place] [address], [place] [address] Oct, [facility] [address] [id number] [address] [place] [address], [place] [address] Oct, [facility] [address] [id number] [address] [place] [address], [place] [address] Oct, [facility] [address] [id number] [address] [place] [address], [place] [address] Sep, [facility] [address] [id number] [address] [place] [address], [place] [address] Sep, [facility] [address] [id number] [address] [place] [address], [place] [address] Sep, [facility] [address] [id number] [address] [place] [address], [place] [address] Sep, [facility] [address] [id number] [address] [place] [address], [place] [address] Aug, [facility] [address] [id number] [address] [place] [address], [place] [address] Aug, [facility] [address] [id number] [address] [place] [address], [place] [address] Aug, [facility] [address] [id number] [address] [place] [address], [place] [address] Aug, [facility] [address] [id number] [address] [place] [address], [place] [address] Jul, [facility] [address] [id number] [address] [place] [address], [place] [address] Jul, [facility] [address] [id number] [address] [place] [address], [place] [address] Jul, [facility] [address] [id number] [address] [place] [address], [place] [address] Jul, [facility] [address] [id number] [address] [place] [address], [place] [address] Jul, [facility] [address] [id number] [address] [place] [address], [place] [address] Jul, [facility] [address] [id number] [address] [place] [address], [place] [address] Jul, [facility] [address] [id number] [address] [place] [address], [place] [address] Jul, [facility] [address] [id number] [address] [place] [address], [place] [address] Jul, [facility] [address] [id number] [address] [place] [address], [place] [address] Jul, [facility] [address] [id number] [address] [place] [address], [place] [address] Jul, [facility] [address] [id number] [address] [place] [address], [place] [address] Jul, [facility] [address] [id number] [address] [place] [address], [place] [address] Jul, [facility] [address] [id number] [address] [place] [address], [place] [address] Jul, [facility] [address] [id number] [address] [place] [address], [place] [address] Jun, [facility] [address] [id number] [address] [place] [address], [place] [address] Jun, [facility] [address] [id number] [address] [place] [address], [place] [address] Jun, [facility] [address] [id number] [address] [place] [address], [place] [address] Jun, [facility] [address] [id number] [address] [place] [address], [place] [address] May, [facility] [address] [id number] [address] [place] [address], [place] [address] May, [facility] [address] [id number] [address] [place] [address], [place] [address] May, [facility] [address] [id number] [address] [place] [address], [place] [address] May, [facility] [address] [id number] [address] [place] [address], [place] [address] May, [facility] [address] [id number] [address] [place] [address], [place] [address] May, [facility] [address] [id number] [address] [place] [address], [place] [address] May, [facility] [address] [id number] [address] [place] [address], [place] [address] May, [facility] [address] [id number] [address] [place] [address], [place] [address] Apr, [facility] [address] [id number] [address] [place] [address], [place] [address] Apr, [facility] [address] [id number] [address] [place] [address], [place] [address] Apr, [facility] [address] [id number] [address] [place] [address], [place] [address] Apr, [facility] [address] [id number] [address] [place] [address], [place] [address] Apr, [facility] [address] [id number] [address] [place] [address], [place] [address] Apr, [facility] [address] [id number] [address] [place] [address], [place] [address] 30 Mar, 2013 [facility] [address] [id number] [address] [place] [address], [place] [address] 26 Sep, 2012 [facility] [address] [id number] [address] [place] [address], [place] [address] 20 Sep, 2012 [facility] [address] [id number] [address] [place] [address], [place] [address] 17 Sep, 2012 [facility] [address] [id number] [address] [place] [address], [place] [address] 16 Sep, 2012 [facility] [address] [id number] [address] [place] [address], [place] [address] Mar, [facility] [address] [id number] [address] [place] [address], [place] [address] Feb, [facility] [address] [id number] [address] [place] [address], [place] [address] Feb, [facility] [address] [id number] [address] [place] [address], [place] [address] Feb, [facility] [address] [id number] [address] [place] [address], [place] [address] Feb, [facility] [address] [id number] [address] [place] [address], [place] [address] Jan, [facility] [address] [id number] [address] [place] [address], [place] [address] Jan, [facility] [address] [id number] [address] [place] [address], [place] [address] Jan, [facility] [address] [id number] [address] [place] [address], [place] [address] Jan, [facility] [address] [id number] [address] [place] [address], [place] [address] Jan, [facility] [address] [id number] [address] [place] [address], [place] [address] Dec, [facility] [address] [id number] [address] [place] [address], [place] [address] Dec, [facility] [address] [id number] [address] [place] [address], [place] [address] Dec, [facility] [address] [id number] [address] [place] [address], [place] [address] November, [facility] [address] [id number] [address] [place] [address], [place] [address] November, [facility] [address] [id number] [address] [place] [address], [place] [address] November, [facility] [address] [id number] [address] [place] [address], [place] [address] 27 Oct, 2012 [facility] [address] [id number] [address] [place] [address], [place] [address] 26 Oct, 2012 [facility] [address] [id number] [address] [place] [address], [place] [address] Oct, [facility] [address] [id number] [address] [place] [address], [place] [address] 25 Oct, 2012 [facility] [address] [id number] [address] [place] [address], [place] [address] 18 Oct, 2012 [facility] [address] [id number] [address] [place] [address], [place] [address] 17 Oct, 2012 [facility] [address] [id number] [address] [place] [address], [place] [address] 15 Oct, 2012 [facility] [address] [id number] [address] [place] [address], [place] [address] Sep, [facility] [address] [id number] [address] [place] [address], [place] [address] Sep, [facility] [address] [id number] [address] [place] [address], [place] [address] 06 Sep, 2012 [facility] [address] [id number] [address] [place] [address], [place] [address] Sep, [facility] [address] [id number] [address] [place] [address], [place] [address] Aug, [facility] [address] [id number] [address] [place] [address], [place] [address] Aug, [facility] [address] [id number] [address] [place] [address], [place] [address] Aug, [facility] [address] [id number] [address] [place] [address], [place] [address] Aug, [facility] [address] [id number] [address] [place] [address], [place] [address] 18 Aug, 2012 [facility] [address] [id number] [address] [place] [address], [place] [address] Aug, [facility] [address] [id number] [address] [place] [address], [place] [address] Jul, [facility] [address] [id number] [address] [place] [address], [place] [address] Jul, [facility] [address] [id number] [address] [place] [address], [place] [address] Jul, [facility] [address] [id number] [address] [place] [address], [place] [address] Jul, [facility] [address] [id number] [address] [place] [address], [place] [address] Jul, [facility] [address] [id number] [address] [place] [address], [place] [address] Jul, [facility] [address] [id number] [address] [place] [address], [place] [address] Jun, [facility] [address] [id number] [address] [place] [address], [place] [address] Jun, [facility] [address] [id number] [address] [place] [address], [place] [address] Jun, [facility] [address] [id number] [address] [place] [address], [place] [address] Jun, [facility] [address] [id number] [address] [place] [address], [place] [address] Jun, [facility] [address] [id number] [address] [place] [address], [place] [address] Jun, [facility] [address] [id number] [address] [place] [address], [place] [address] May, [facility] [address] [id number] [address] [place] [address], [place] [address] May, [facility] [address] [id number] [address] [place] [address], [place] [address] May, [facility] [address] [id number] [address] [place] [address], [place] [address] May, [facility] [address] [id number] [address] [place] [address], [place] [address] May, [facility] [address] [id number] [address] [place] [address], [place] [address] May, [facility] [address] [id number] [address] [place] [address], [place] [address] May, [facility] [address] [id number] [address] [place] [address], [place] [address] May, [facility] [address] [id number] [address] [place] [address], [place] [address] May, [facility] [address] [id number] [address] [place] [address], [place] [address] May, [facility] [address] [id number] [address] [place] [address], [place] [address] Apr, [facility] [address] [id number] [address] [place] [address], [place] [address] 31 Apr, 2012 [facility] [address] [id number] [address] [place] [address], [place] [address] Apr, [facility] [address] [id number] [address] [place] [address], [place] [address] 23 Apr, 2012 [facility] [address] [id number] [address] [place] [address], [place] [address] 16 Apr, 2012 [facility] [address] [id number] [address] [place] [address], [place] [address] 16 Apr, 2012 [facility] [address] [id number] [address] [place] [address], [place] [address] 15 Apr, 2012 [facility] [address] [id number] [address] [place] [address], [place] [address] 15 Apr, 2012 [facility] [address] [id number] [address] [place] [address], [place] [address] 05 Apr, 2012 [facility] [address] [id number] [address] [place] [address], [place] [address] 28 Mar, 2012 [facility] [address] [id number] [address] [place] [address], [place] [address] 26 Mar, 2012 [facility] [address] [id number] [address] [place] [address], [place] [address] 25 Mar, 2012 [facility] [address] [id number] [address] [place] [address], [place] [address] 19 Mar, 2012 [facility] [address] [id number] [address] [place] [address], [place] [address] 18 Mar, 2012 [facility] [address] [id number] [address] [place] [address], [place] [address] Mar, [facility] [address] [id number] [address] [place] [address], [place] [address] Feb, [facility] [address] [id number] [address] [place] [address], [place] [address] Feb, [facility] [address] [id number] [address] [place] [address], [place] [address] Feb, [facility] [address] [id number] [address] [place] [address], [place] [address] Jan, [facility] [address] [id number] [address] [place] [address], [place] [address] Jan, [facility] [address] [id number] [address] [place] [address], [place] [address] Jan, [facility] [address] [id number] [address] [place] [address], [place] [address] Jan, [facility] [address] [id number] [address] [place] [address], [place] [address] Dec, [facility] [address] [id number] [address] [place] [address], [place] [address] November, [facility] [address] [id number] [address] [place] [address], [place] [address] November, [facility] [address] [id number] [address] [place] [address], [place] [address] November, [facility] [address] [id number] [address] [place] [address], [place] [address] November, [facility] [address] [id number] [address] [place] [address], [place] [address] November, [facility] [address] [id number] [address] [place] [address], [place] [address] November, [facility] [address] [id number] [address] [place] [address], [place] [address] Oct, [facility] [address] [id number] [address] [place] [address], [place] [address] Oct, [facility] [address] [id number] [address] [place] [address], [place] [address] Sep, [facility] [address] [id number] [address] [place] [address], [place] [address] Sep, [facility] [address] [id number] [address] [place] [address], [place] [address] Sep, [facility] [address] [id number] [address] [place] [address], [place] [address] Aug, [facility] [address] [id number] [address] [place] [address], [place] [address] Aug, [facility] [address] [id number] [address] [place] [address], [place] [address] Aug, [facility] [address] [id number] [address] [place] [address], [place] [address] Aug, [facility] [address] [id number] [address] [place] [address], [place] [address] Aug, [facility] [address] [id number] [address] [place] [address], [place] [address] Aug, [facility] [address] [id number] [address] [place] [address], [place] [address] Jul, [facility] [address] [id number] [address] [place] [address], [place] [address] Jul, [facility] [address] [id number] [address] [place] [address], [place] [address] Jul, [facility] [address] [id number] [address] [place] [address], [place] [address] Jul, [facility] [address] [id number] [address] [place] [address], [place] [address] Jul, [facility] [address] [id number] [address] [place] [address], [place] [address] Jul, [facility] [address] [id number] [address] [place] [address], [place] [address] Jul, [facility] [address] [id number] [address] [place] [address], [place] [address] Jul, [facility] [address] [id number] [address] [place] [address], [place] [address] Jul, [facility] [address] [id number] [address] [place] [address], [place] [address] Jul, [facility] [address] [id number] [address] [place] [address], [place] [address] Jun, [facility] [address] [id number] [address] [place] [address], [place] [address] Jun, [facility] [address] [id number] [address] [place] [address], [place] [address] Jun, [facility] [address] [id number] [address] [place] [address], [place] [address] Jun, [facility] [address] [id number] [address] [place] [address] [address] 30 May, 2011 [facility] [address] [id number] [address] [place] [address], [place] [address] 29 May, 2011 [facility] [address] [id number] [address] [place] [address], [place] [address] 22 May, 2011 [facility] [address] [id number] [address] [place] [address], [place] [address] 08 May, 2011 [facility] [address] [id number] [address] [place] [address], [place] [address] 31 Apr, 2011 [facility] [address] [id number] [address] [place] [address], [place] [address] 31 Apr, 2011 [facility] [address] [id number] [address] [place] [address], [place] [address] November, [facility] [address] [id number] [address] [place] [address], [place] [address] 18 Oct, 2010 [facility] [address] [id number] [address] [place] [address], [place] [address] 17 Aug, 2010 [facility] [address] [id number] [address] [place] [address], [place] [address] Jun, [facility] [address] [id number] [address] [place] [address], [place] [address] 28 Jun, 2010 [facility] [address] [id number] [address] [place] [address], [place] [address] Jun, [facility] [address] [id number] [address] [place] [address], [place] [address] 03 Jun, 2010 [facility] [address] [id number] [address] [place] [address], [place] [address] 29 May, 2010 [facility] [address] [id number] [address] [place] [address], [place] [address] 27 Apr, 2010 [facility] [address] [id number] [address] [place] [address], [place] [address] 13 Oct, 2009 [facility] [address] [id number] [address] [place] [id number] 13 Aug, 2009 [facility] [address] [id number] [address] [place] [address] Jul, [facility] [address] [id number] [address] [place] [address] Jun, [facility] [address] [id number] [address] [place] [id number] 16 Jun, 2009 [facility] [address] [id number] [address] [place] [address] Jun, [facility] [address] [facility] [id number] [address] [place] [address] Jun, [facility] [address] [facility] [id number] [address] [place] [id number] May, [facility] [address] [facility] [id number] [address] [place] [address] Apr, [facility] [address] [id number] [address] [place] [id number] 15 Mar, 2009 [facility] [address] [facility] [id number] [address] [place] [id number] 14 Mar, 2009 [facility] [address] [facility] [id number] [address] [place] [address] Dec, IMMUNIZATIONS No Known Immunizations SOCIAL HISTORY [...] Hospitalization History Hospitalization for surgery and griffin nichols
--- OUTSIDE RECORDS SUMMARY | 2019-09-01 05:45 | XMS REPORT ---
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 [address] Jun, [facility] [address] [id number] [address] [place] [address], [place] [address] Jun, [facility] [address] [id number] [address] [place] [address], [place] [address] Jun, [facility] [address] [id number] [address] [place] [address], [place] [address] Jun, [facility] [address] [id number] [address] [place] [address], [place] [address] Jun, [facility] [address] [id number] [address] [place] [address], [place] [address] Jun, [facility] [address] [id number] [address] [place] [address], [place] [address] Jun, [facility] [address] [id number] [address] [place] [address], [place] [address] Jun, [facility] [address] [id number] [address] [place] [address], [place] [address] Jun, [facility] [address] [id number] [address] [place] [address], [place] [address] Jun, [facility] [address] [id number] [address] [place] [address], [place] [address] Jun, [facility] [address] [id number] [address] [place] [address], [place] [address] Jun, [facility] [address] [id number] [address] [place] [address], [place] [address] Jun, [facility] [address] [id number] [address] [place] [address], [place] [address] Jun, [facility] [address] [id number] [address] [place] [address], [place] [address] May, [facility] [address] [id number] [address] [place] [address], [place] [address] May, [facility] [address] [id number] [address] [place] [address], [place] [address] May, [facility] [address] [id number] [address] [place] [address], [place] [address] May, [facility] [address] [id number] [address] [place] [address], [place] [address] Apr, [facility] [address] [id number] [address] [place] [address], [place] [address] Apr, [facility] [address] [id number] [address] [place] [address], [place] [address] Apr, [facility] [address] [id number] [address] [place] [address], [place] [address] Apr, [facility] [address] [id number] [address] [place] [address], [place] [address] Apr, [facility] [address] [id number] [address] [place] [address], [place] [address] Apr, [facility] [address] [id number] [address] [place] [address], [place] [address] Apr, [facility] [address] [id number] [address] [place] [address], [place] [address] Apr, [facility] [address] [id number] [address] [place] [address], [place] [address] Apr, [facility] [address] [id number] [address] [place] [address], [place] [address] Apr, [facility] [address] [id number] [address] [place] [address], [place] [address] 29 Mar, 2014 [facility] [address] [id number] [address] [place] [address], [place] [address] 29 Mar, 2014 [facility] [address] [id number] [address] [place] [address], [place] [address] 29 Mar, 2014 [facility] [address] [id number] [facility] [place] [address] 29 Mar, 2013 [facility] [address] [id number] [address] [place] [address], [place] [address] Mar, 2013 [facility] [address] [id number] [address] [place] [address], [place] [address] Mar, 2013 [facility] [address] [id number] [address] [place] [address], [place] [address] Mar, 2013 [facility] [address] [id number] [address] [place] [address], [place] [address] Mar, 2013 [facility] [address] [id number] [address] [place] [address], [place] [address] Mar, 2013 [facility] [address] [id number] [address] [place] [address], [place] [address] Mar, 2013 [facility] [address] [id number] [address] [place] [address], [place] [address] Mar, 2013 [facility] [address] [id number] [address] [place] [address], [place] [address] Mar, 2013 [facility] [address] [id number] [address] [place] [address], [place] [address] Feb, [facility] [address] [id number] [address] [place] [address], [place] [address] Feb, [facility] [address] [id number] [address] [place] [address], [place] [address] Jan, [facility] [address] [id number] [address] [place] [address], [place] [address] Jan, [facility] [address] [id number] [address] [place] [address], [place] [address] Jan, [facility] [address] [id number] [address] [place] [address], [place] [address] Jan, [facility] [address] [id number] [address] [place] [address], [place] [address] Dec, [facility] [address] [id number] [address] [place] [address], [place] [address] Dec, [facility] [address] [id number] [address] [place] [address], [place] [address] Dec, [facility] [address] [id number] [address] [place] [address], [place] [address] Dec, [facility] [address] [id number] [address] [place] [address], [place] [address] Dec, [facility] [address] [id number] [address] [place] [address], [place] [address] Dec, [facility] [address] [id number] [address] [place] [address], [place] [address] November, [facility] [address] [id number] [address] [place] [address], [place] [address] November, [facility] [address] [id number] [address] [place] [address], [place] [address] November, [facility] [address] [id number] [address] [place] [address], [place] [address] November, [facility] [address] [id number] [address] [place] [address], [place] [address] November, [facility] [address] [id number] [address] [place] [address], [place] [address] November, Via [address] [id number] November, [facility] [address] [id number] [address] [place] [address], [place] [address] November, [facility] [address] [id number] [address] [place] [address], [place] [address] November, [facility] [address] [id number] [address] [place] [address], [place] [address] November, [facility] [address] [id number] [address] [place] [address], [place] [address] November, [facility] [address] [id number] [address] [place] [address], [place] [address] November, [facility] [address] [id number] [address] [place] [address], [place] [address] Oct, [facility] [address] [id number] [address] [place] [address], [place] [address] Oct, [facility] [address] [id number] [address] [place] [address], [place] [address] Oct, [facility] [address] [id number] [address] [place] [address], [place] [address] Oct, [facility] [address] [id number] [address] [place] [address], [place] [address] Oct, [facility] [address] [id number] [address] [place] [address], [place] [address] Oct, [facility] [address] [id number] [address] [place] [address], [place] [address] Oct, [facility] [address] [id number] [address] [place] [address], [place] [address] Oct, [facility] [address] [id number] [address] [place] [address], [place] [address] Oct, [facility] [address] [id number] [address] [place] [address], [place] [address] Oct, [facility] [address] [id number] [address] [place] [address], [place] [address] Oct, [facility] [address] [id number] [address] [place] [address], [place] [address] Oct, [facility] [address] [id number] [address] [place] [address], [place] [address] Oct, [facility] [address] [id number] [address] [place] [address], [place] [address] Oct, [facility] [address] [id number] [address] [place] [address], [place] [address] Oct, [facility] [address] [id number] [address] [place] [address], [place] [address] Sep, [facility] [address] [id number] [address] [place] [address], [place] [address] Sep, [facility] [address] [id number] [address] [place] [address], [place] [address] Sep, [facility] [address] [id number] [address] [place] [address], [place] [address] Sep, [facility] [address] [id number] [address] [place] [address], [place] [address] Aug, [facility] [address] [id number] [address] [place] [address], [place] [address] Aug, [facility] [address] [id number] [address] [place] [address], [place] [address] Aug, [facility] [address] [id number] [address] [place] [address], [place] [address] Aug, [facility] [address] [id number] [address] [place] [address], [place] [address] Jul, [facility] [address] [id number] [address] [place] [address], [place] [address] Jul, [facility] [address] [id number] [address] [place] [address], [place] [address] Jul, [facility] [address] [id number] [address] [place] [address], [place] [address] Jul, [facility] [address] [id number] [address] [place] [address], [place] [address] Jul, [facility] [address] [id number] [address] [place] [address], [place] [address] Jul, [facility] [address] [id number] [address] [place] [address], [place] [address] Jul, [facility] [address] [id number] [address] [place] [address], [place] [address] Jul, [facility] [address] [id number] [address] [place] [address], [place] [address] Jul, [facility] [address] [id number] [address] [place] [address], [place] [address] Jul, [facility] [address] [id number] [address] [place] [address], [place] [address] Jul, [facility] [address] [id number] [address] [place] [address], [place] [address] Jul, [facility] [address] [id number] [address] [place] [address], [place] [address] Jul, [facility] [address] [id number] [address] [place] [address], [place] [address] Jul, [facility] [address] [id number] [address] [place] [address], [place] [address] Jun, [facility] [address] [id number] [address] [place] [place] [address], [place] [address] Jun, [facility] [address] [id number] [address] [place] [address], [place] [address] Jun, [facility] [address] [id number] [address] [place] [address], [place] [address] Jun, [facility] [address] [id number] [address] [place] [address], [place] [address] May, [facility] [address] [id number] [address] [place] [address], [place] [address] May, [facility] [address] [id number] [address] [place] [address], [place] [address] May, [facility] [address] [id number] [address] [place] [address], [place] [address] May, [facility] [address] [id number] [address] [place] [address], [place] [address] May, [facility] [address] [id number] [address] [place] [address], [place] [address] May, [facility] [address] [id number] [address] [place] [address], [place] [address] May, [facility] [address] [id number] [address] [place] [address], [place] [address] May, [facility] [address] [id number] [address] [place] [address], [place] [address] Apr, [facility] [address] [id number] [address] [place] [address], [place] [address] Apr, [facility] [address] [id number] [address] [place] [address], [place] [address] Apr, [facility] [address] [id number] [address] [place] [address], [place] [address] Apr, [facility] [address] [id number] [address] [place] [address], [place] [address] Apr, [facility] [address] [id number] [address] [place] [address], [place] [address] Apr, [facility] [address] [id number] [address] [place] [address], [place] [address] 30 Mar, 2013 [facility] [address] [id number] [address] [place] [address], [place] [address] 26 Sep, 2012 [facility] [address] [id number] [address] [place] [address], [place] [address] 20 Sep, 2012 [facility] [address] [id number] [address] [place] [address], [place] [address] 17 Sep, 2012 [facility] [address] [id number] [address] [place] [address], [place] [address] 16 Sep, 2012 [facility] [address] [id number] [address] [place] [address], [place] [address] Mar, [facility] [address] [id number] [address] [place] [address], [place] [address] Feb, [facility] [address] [id number] [address] [place] [address], [place] [address] Feb, [facility] [address] [id number] [address] [place] [address], [place] [address] Feb, [facility] [address] [id number] [address] [place] [address], [place] [address] Feb, [facility] [address] [id number] [address] [place] [address], [place] [address] Jan, [facility] [address] [id number] [address] [place] [address], [place] [address] Jan, [facility] [address] [id number] [address] [place] [address], [place] [address] Jan, [facility] [address] [id number] [address] [place] [address], [place] [address] Jan, [facility] [address] [id number] [address] [place] [address], [place] [address] Jan, [facility] [address] [id number] [address] [place] [address], [place] [address] Dec, [facility] [address] [id number] [address] [place] [address], [place] [address] Dec, [facility] [address] [id number] [address] [place] [address], [place] [address] Dec, [facility] [address] [id number] [address] [place] [address], [place] [address] November, [facility] [address] [id number] [address] [place] [address], [place] [address] November, [facility] [address] [id number] [address] [place] [address], [place] [address] November, [facility] [address] [id number] [address] [place] [address], [place] [address] 27 Oct, 2012 [facility] [address] [id number] [address] [place] [address], [place] [address] 26 Oct, 2012 [facility] [address] [id number] [address] [place] [address], [place] [address] Oct, [facility] [address] [id number] [address] [place] [address], [place] [address] 25 Oct, 2012 [facility] [address] [id number] [address] [place] [address], [place] [address] 18 Oct, 2012 [facility] [address] [id number] [address] [place] [address], [place] [address] 17 Oct, 2012 [facility] [address] [id number] [address] [place] [address], [place] [address] 15 Oct, 2012 [facility] [address] [id number] [address] [place] [address], [place] [address] Sep, [facility] [address] [id number] [address] [place] [address], [place] [address] Sep, [facility] [address] [id number] [address] [place] [address], [place] [address] 06 Sep, 2012 [facility] [address] [id number] [address] [place] [address], [place] [address] Sep, [facility] [address] [id number] [address] [place] [address], [place] [address] Aug, [facility] [address] [id number] [address] [place] [address], [place] [address] Aug, [facility] [address] [id number] [address] [place] [address], [place] [address] Aug, [facility] [address] [id number] [address] [place] [address], [place] [address] Aug, [facility] [address] [id number] [address] [place] [address], [place] [address] 18 Aug, 2012 [facility] [address] [id number] [address] [place] [address], [place] [address] Aug, [facility] [address] [id number] [address] [place] [address], [place] [address] Jul, [facility] [address] [id number] [address] [place] [address], [place] [address] Jul, [facility] [address] [id number] [address] [place] [address], [place] [address] Jul, [facility] [address] [id number] [address] [place] [address], [place] [address] Jul, [facility] [address] [id number] [address] [place] [address], [place] [address] Jul, [facility] [address] [id number] [address] [place] [address], [place] [address] Jul, [facility] [address] [id number] [address] [place] [address], [place] [address] Jun, [facility] [address] [id number] [address] [place] [address], [place] [address] Jun, [facility] [address] [id number] [address] [place] [address], [place] [address] Jun, [facility] [address] [id number] [address] [place] [address], [place] [address] Jun, [facility] [address] [id number] [address] [place] [address], [place] [address] Jun, [facility] [address] [id number] [address] [place] [address], [place] [address] Jun, [facility] [address] [id number] [address] [place] [address], [place] [address] May, [facility] [address] [id number] [address] [place] [address], [place] [address] May, [facility] [address] [id number] [address] [place] [address], [place] [address] May, [facility] [address] [id number] [address] [place] [address], [place] [address] May, [facility] [address] [id number] [address] [place] [address], [place] [address] May, [facility] [address] [id number] [address] [place] [address], [place] [address] May, [facility] [address] [id number] [address] [place] [address], [place] [address] May, [facility] [address] [id number] [address] [place] [address], [place] [address] May, [facility] [address] [id number] [address] [place] [address], [place] [address] May, [facility] [address] [id number] [address] [place] [address], [place] [address] May, [facility] [address] [id number] [address] [place] [address], [place] [address] Apr, [facility] [address] [id number] [address] [place] [address], [place] [address] 31 Apr, 2012 [facility] [address] [id number] [address] [place] [address], [place] [address] Apr, [facility] [address] [id number] [address] [place] [address], [place] [address] 23 Apr, 2012 [facility] [address] [id number] [address] [place] [address], [place] [address] 16 Apr, 2012 [facility] [address] [id number] [address] [place] [address], [place] [address] 16 Apr, 2012 [facility] [address] [id number] [address] [place] [address], [place] [address] 15 Apr, 2012 [facility] [address] [id number] [address] [place] [address], [place] [address] 15 Apr, 2012 [facility] [address] [id number] [address] [place] [address], [place] [address] 05 Apr, 2012 [facility] [address] [id number] [address] [place] [address], [place] [address] 28 Mar, 2012 [facility] [address] [id number] [address] [place] [address], [place] [address] 26 Mar, 2012 [facility] [address] [id number] [address] [place] [address], [place] [address] 25 Mar, 2012 [facility] [address] [id number] [address] [place] [address], [place] [address] 19 Mar, 2012 [facility] [address] [id number] [address] [place] [address], [place] [address] 18 Mar, 2012 [facility] [address] [id number] [address] [place] [address], [place] [address] Mar, [facility] [address] [id number] [address] [place] [address], [place] [address] Feb, [facility] [address] [id number] [address] [place] [address], [place] [address] Feb, [facility] [address] [id number] [address] [place] [address], [place] [address] Feb, [facility] [address] [id number] [address] [place] [address], [place] [address] Jan, [facility] [address] [id number] [address] [place] [address], [place] [address] Jan, [facility] [address] [id number] [address] [place] [address], [place] [address] Jan, [facility] [address] [id number] [address] [place] [address], [place] [address] Jan, [facility] [address] [id number] [address] [place] [address], [place] [address] Dec, [facility] [address] [id number] [address] [place] [address], [place] [address] November, [facility] [address] [id number] [address] [place] [address], [place] [address] November, [facility] [address] [id number] [address] [place] [address], [place] [address] November, [facility] [address] [id number] [address] [place] [address], [place] [address] November, [facility] [address] [id number] [address] [place] [address], [place] [address] November, [facility] [address] [id number] [address] [place] [address], [place] [address] November, [facility] [address] [id number] [address] [place] [address], [place] [address] Oct, [facility] [address] [id number] [address] [place] [address], [place] [address] Oct, [facility] [address] [id number] [address] [place] [address], [place] [address] Sep, [facility] [address] [id number] [address] [place] [address], [place] [address] Sep, [facility] [address] [id number] [address] [place] [address], [place] [address] Sep, [facility] [address] [id number] [address] [place] [address], [place] [address] Aug, [facility] [address] [id number] [address] [place] [address], [place] [address] Aug, [facility] [address] [id number] [address] [place] [address], [place] [address] Aug, [facility] [address] [id number] [address] [place] [address], [place] [address] Aug, [facility] [address] [id number] [address] [place] [address], [place] [address] Aug, [facility] [address] [id number] [address] [place] [address], [place] [address] Aug, [facility] [address] [id number] [address] [place] [address], [place] [address] Jul, [facility] [address] [id number] [address] [place] [address], [place] [address] Jul, [facility] [address] [id number] [address] [place] [address], [place] [address] Jul, [facility] [address] [id number] [address] [place] [address], [place] [address] Jul, [facility] [address] [id number] [address] [place] [address], [place] [address] Jul, [facility] [address] [id number] [address] [place] [address], [place] [address] Jul, [facility] [address] [id number] [address] [place] [address], [place] [address] Jul, [facility] [address] [id number] [address] [place] [address], [place] [address] Jul, [facility] [address] [id number] [address] [place] [address], [place] [address] Jul, [facility] [address] [id number] [address] [place] [address], [place] [address] Jul, [facility] [address] [id number] [address] [place] [address], [place] [address] Jun, [facility] [address] [id number] [address] [place] [address], [place] [address] Jun, [facility] [address] [id number] [address] [place] [address], [place] [address] Jun, [facility] [address] [id number] [address] [place] [address], [place] [address] Jun, [facility] [address] [id number] [address] [place] [address] [address] 30 May, 2011 [facility] [address] [id number] [address] [place] [address], [place] [address] 29 May, 2011 [facility] [address] [id number] [address] [place] [address], [place] [address] 22 May, 2011 [facility] [address] [id number] [address] [place] [address], [place] [address] 08 May, 2011 [facility] [address] [id number] [address] [place] [address], [place] [address] 31 Apr, 2011 [facility] [address] [id number] [address] [place] [address], [place] [address] 31 Apr, 2011 [facility] [address] [id number] [address] [place] [address], [place] [address] November, [facility] [address] [id number] [address] [place] [address], [place] [address] 18 Oct, 2010 [facility] [address] [id number] [address] [place] [address], [place] [address] 17 Aug, 2010 [facility] [address] [id number] [address] [place] [address], [place] [address] Jun, [facility] [address] [id number] [address] [place] [address], [place] [address] 28 Jun, 2010 [facility] [address] [id number] [address] [place] [address], [place] [address] Jun, [facility] [address] [id number] [address] [place] [address], [place] [address] 03 Jun, 2010 [facility] [address] [id number] [address] [place] [address], [place] [address] 29 May, 2010 [facility] [address] [id number] [address] [place] [address], [place] [address] 27 Apr, 2010 [facility] [address] [id number] [address] [place] [address], [place] [address] 13 Oct, 2009 [facility] [address] [id number] [address] [place] [address] 13 Aug, 2009 [facility] [address] [id number] [address] [place] [address] Jul, [facility] [address] [id number] [address] [place] [address] Jun, [facility] [address] [id number] [address] [place] [address] 16 Jun, 2009 [facility] [address] [id number] [address] [place] [address] Jun, [facility] [address] [id number] [address] [place] [address] Jun, [facility] [address] [id number] [address] [place] [address] May, [facility] [address] [id number] [address] [place] [phone] Apr, [facility] [address] [id number] [address] [place] [phone] 15 Mar, 2009 [facility] [address] [id number] [address] [place] [phone] 14 Mar, 2009 [facility] [address] [id number] [address] [place] [phone] Dec, IMMUNIZATIONS Vaccine Route Administration Date Status FLU Vaccine (History) Unknown Apr 10, 2014 Administer ed SOCIAL HISTORY Never Assessed REASON FOR VISIT PLAN OF CARE VITAL SIGNS Height 67 in 2014-04-10 Weight 189.5 lbs 2014-04-10 Temperature 97.5 degrees Fahrenheit 2014-04-10 Heart Rate 84 bpm 2014-04-10 Respiratory Rate 18 2014-04-10 Blood pressure systolic 110 mmHg 2014-04-10 Blood pressure diastolic 68 mmHg 2014-04-10 MEDICATIONS Unknown Medications RESULTS No Results PROCEDURES Procedure Date Ordered Result Body Site GLYCATED HEMOGLOBIN TEST Apr 10, 2014 MICROALBUMIN, SEMIQUANT Apr 10, 2014 INSTRUCTIONS MEDICATIONS ADMINISTERED No Known Medications [...]
--- OUTSIDE RECORDS SUMMARY | 2019-09-01 05:45 | XMS REPORT ---
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 Jun, [facility] [address] [id number] [address] [place] [address], [place] [address] Jun, [facility] [address] [id number] [address] [place] [address], [place] [address] Jun, [facility] [address] [id number] [address] [place] [address], [place] [address] Jun, [facility] [address] [id number] [address] [place] [address], [place] [address] Jun, [facility] [address] [id number] [address] [place] [address], [place] [address] Jun, [facility] [address] [id number] [address] [place] [address], [place] [address] Jun, [facility] [address] [id number] [address] [place] [address], [place] [address] Jun, [facility] [address] [id number] [address] [place] [address], [place] [address] Jun, [facility] [address] [id number] [address] [place] [address], [place] [address] Jun, [facility] [address] [id number] [address] [place] [address], [place] [address] Jun, [facility] [address] [id number] [address] [place] [address], [place] [address] Jun, [facility] [address] [id number] [address] [place] [address], [place] [address] Jun, [facility] [address] [id number] [address] [place] [address], [place] [address] Jun, [facility] [address] [id number] [address] [place] [address], [place] [address] Jun, [facility] [address] [id number] [address] [place] [address], [place] [address] Jun, [facility] [address] [id number] [address] [place] [address], [place] [address] May, [facility] [address] [id number] [address] [place] [address], [place] [address] May, [facility] [address] [id number] [address] [place] [address], [place] [address] May, [facility] [address] [id number] [address] [place] [address], [place] [address] May, [facility] [address] [id number] [address] [place] [address], [place] [address] Apr, [facility] [address] [id number] [address] [place] [address], [place] [address] Apr, [facility] [address] [id number] [address] [place] [address], [place] [address] Apr, [facility] [address] [id number] [address] [place] [address], [place] [address] Apr, [facility] [address] [id number] [address] [place] [address], [place] [address] Apr, [facility] [address] [id number] [address] [place] [address], [place] [address] Apr, [facility] [address] [id number] [address] [place] [address], [place] [address] Apr, [facility] [address] [id number] [address] [place] [address], [place] [address] Apr, [facility] [address] [id number] [address] [place] [address], [place] [address] Apr, [facility] [address] [id number] [address] [place] [address], [place] [address] Apr, [facility] [address] [id number] [address] [place] [address], [place] [address] 29 Mar, 2014 [facility] [address] [id number] [address] [place] [address], [place] [address] 29 Mar, 2014 [facility] [address] [id number] [address] [place] [address], [place] [address] 29 Mar, 2014 [facility] [address] [id number] [facility] [place] [address] 29 Mar, 2013 [facility] [address] [id number] [address] [place] [address], [place] [address] Mar, 2013 [facility] [address] [id number] [address] [place] [address], [place] [address] Mar, 2013 [facility] [address] [id number] [address] [place] [address], [place] [address] Mar, 2013 [facility] [address] [id number] [address] [place] [address], [place] [address] Mar, 2013 [facility] [address] [id number] [address] [place] [address], [place] [address] Mar, 2013 [facility] [address] [id number] [address] [place] [address], [place] [address] Mar, 2013 [facility] [address] [id number] [address] [place] [address], [place] [address] Mar, 2013 [facility] [address] [id number] [address] [place] [address], [place] [address] Mar, 2013 [facility] [address] [id number] [address] [place] [address], [place] [address] Feb, [facility] [address] [id number] [address] [place] [address], [place] [address] Feb, [facility] [address] [id number] [address] [place] [address], [place] [address] Jan, [facility] [address] [id number] [address] [place] [address], [place] [address] Jan, [facility] [address] [id number] [address] [place] [address], [place] [address] Jan, [facility] [address] [id number] [address] [place] [address], [place] [address] Jan, [facility] [address] [id number] [address] [place] [address], [place] [address] Dec, [facility] [address] [id number] [address] [place] [address], [place] [address] Dec, [facility] [address] [id number] [address] [place] [address], [place] [address] Dec, [facility] [address] [id number] [address] [place] [address], [place] [address] Dec, [facility] [address] [id number] [address] [place] [address], [place] [address] Dec, [facility] [address] [id number] [address] [place] [address], [place] [address] Dec, [facility] [address] [id number] [address] [place] [address], [place] [address] November, [facility] [address] [id number] [address] [place] [address], [place] [address] November, [facility] [address] [id number] [address] [place] [address], [place] [address] November, [facility] [address] [id number] [address] [place] [address], [place] [address] November, [facility] [address] [id number] [address] [place] [address], [place] [address] November, [facility] [address] [id number] [address] [place] [address], [place] [address] November, [address] [id number] November, [facility] [address] [id number] [address] [place] [address], [place] [address] November, [facility] [address] [id number] [address] [place] [address], [place] [address] November, [facility] [address] [id number] [address] [place] [address], [place] [address] November, [facility] [address] [id number] [address] [place] [address], [place] [address] November, [facility] [address] [id number] [address] [place] [address], [place] [address] November, [facility] [address] [id number] [address] [place] [address], [place] [address] Oct, [facility] [address] [id number] [address] [place] [address], [place] [address] Oct, [facility] [address] [id number] [address] [place] [address], [place] [address] Oct, [facility] [address] [id number] [address] [place] [address], [place] [address] Oct, [facility] [address] [id number] [address] [place] [address], [place] [address] Oct, [facility] [address] [id number] [address] [place] [address], [place] [address] Oct, [facility] [address] [id number] [address] [place] [address], [place] [address] Oct, [facility] [address] [id number] [address] [place] [address], [place] [address] Oct, [facility] [address] [id number] [address] [place] [address], [place] [address] Oct, [facility] [address] [id number] [address] [place] [address], [place] [address] Oct, [facility] [address] [id number] [address] [place] [address], [place] [address] Oct, [facility] [address] [id number] [address] [place] [address], [place] [address] Oct, [facility] [address] [id number] [address] [place] [address], [place] [address] Oct, [facility] [address] [id number] [address] [place] [address], [place] [address] Oct, [facility] [address] [id number] [address] [place] [address], [place] [address] Oct, [facility] [address] [id number] [address] [place] [address], [place] [address] Sep, [facility] [address] [id number] [address] [place] [address], [place] [address] Sep, [facility] [address] [id number] [address] [place] [address], [place] [address] Sep, [facility] [address] [id number] [address] [place] [address], [place] [address] Sep, [facility] [address] [id number] [address] [place] [address], [place] [address] Aug, [facility] [address] [id number] [address] [place] [address], [place] [address] Aug, [facility] [address] [id number] [address] [place] [address], [place] [address] Aug, [facility] [address] [id number] [address] [place] [address], [place] [address] Aug, [facility] [address] [id number] [address] [place] [address], [place] [address] Jul, [facility] [address] [id number] [address] [place] [address], [place] [address] Jul, [facility] [address] [id number] [address] [place] [address], [place] [address] Jul, [facility] [address] [id number] [address] [place] [address], [place] [address] Jul, [facility] [address] [id number] [address] [place] [address], [place] [address] Jul, [facility] [address] [id number] [address] [place] [address], [place] [address] Jul, [facility] [address] [id number] [address] [place] [address], [place] [address] Jul, [facility] [address] [id number] [address] [place] [address], [place] [address] Jul, [facility] [address] [id number] [address] [place] [address], [place] [address] Jul, [facility] [address] [id number] [address] [place] [address], [place] [address] Jul, [facility] [address] [id number] [address] [place] [address], [place] [address] Jul, [facility] [address] [id number] [address] [place] [address], [place] [address] Jul, [facility] [address] [id number] [address] [place] [address], [place] [address] Jul, [facility] [address] [id number] [address] [place] [address], [place] [address] Jul, [facility] [address] [id number] [address] [place] [address], [place] [address] Jun, [facility] [address] [id number] [address] [place] [address], [place] [address] Jun, [facility] [address] [id number] [address] [place] [address], [place] [address] Jun, [facility] [address] [id number] [address] [place] [address], [place] [address] Jun, [facility] [address] [id number] [address] [place] [address], [place] [address] May, [facility] [address] [id number] [address] [place] [address], [place] [address] May, [facility] [address] [id number] [address] [place] [address], [place] [address] May, [facility] [address] [id number] [address] [place] [address], [place] [address] May, [facility] [address] [id number] [address] [place] [address], [place] [address] May, [facility] [address] [id number] [address] [place] [address], [place] [address] May, [facility] [address] [id number] [address] [place] [address], [place] [address] May, [facility] [address] [id number] [address] [place] [address], [place] [address] May, [facility] [address] [id number] [address] [place] [address], [place] [address] Apr, [facility] [address] [id number] [address] [place] [address], [place] [address] Apr, [facility] [address] [id number] [address] [place] [address], [place] [address] Apr, [facility] [address] [id number] [address] [place] [address], [place] [address] Apr, [facility] [address] [id number] [address] [place] [address], [place] [address] Apr, [facility] [address] [id number] [address] [place] [address], [place] [address] Apr, [facility] [address] [id number] [address] [place] [address], [place] [address] 30 Mar, 2013 [facility] [address] [id number] [address] [place] [address], [place] [address] 26 Sep, 2012 [facility] [address] [id number] [address] [place] [address], [place] [address] 20 Sep, 2012 [facility] [address] [id number] [address] [place] [address], [place] [address] 17 Sep, 2012 [facility] [address] [id number] [address] [place] [address], [place] [address] 16 Sep, 2012 [facility] [address] [id number] [address] [place] [address], [place] [address] Mar, [facility] [address] [id number] [address] [place] [address], [place] [address] Feb, [facility] [address] [id number] [address] [place] [address], [place] [address] Feb, [facility] [address] [id number] [address] [place] [address], [place] [address] Feb, [facility] [address] [id number] [address] [place] [address], [place] [address] Feb, [facility] [address] [id number] [address] [place] [address], [place] [address] Jan, [facility] [address] [id number] [address] [place] [address], [place] [address] Jan, [facility] [address] [id number] [address] [place] [address], [place] [address] Jan, [facility] [address] [id number] [address] [place] [address], [place] [address] Jan, [facility] [address] [id number] [address] [place] [address], [place] [address] Jan, [facility] [address] [id number] [address] [place] [address], [place] [address] Dec, [facility] [address] [id number] [address] [place] [address], [place] [address] Dec, [facility] [address] [id number] [address] [place] [address], [place] [address] Dec, [facility] [address] [id number] [address] [place] [address], [place] [address] November, [facility] [address] [id number] [address] [place] [address], [place] [address] November, [facility] [address] [id number] [address] [place] [address], [place] [address] November, [facility] [address] [id number] [address] [place] [address], [place] [address] 27 Oct, 2012 [facility] [address] [id number] [address] [place] [address], [place] [address] 26 Oct, 2012 [facility] [address] [id number] [address] [place] [address], [place] [address] Oct, [facility] [address] [address] [id number] [address] [place] [address], [place] [address] 25 Oct, 2012 [facility] [address] [id number] [address] [place] [address], [place] [address] 18 Oct, 2012 [facility] [address] [id number] [address] [place] [address], [place] [address] 17 Oct, 2012 [facility] [address] [id number] [address] [place] [address], [place] [address] 15 Oct, 2012 [facility] [address] [id number] [address] [place] [address], [place] [address] Sep, [facility] [address] [id number] [address] [place] [address], [place] [address] Sep, [facility] [address] [id number] [address] [place] [address], [place] [address] 06 Sep, 2012 [facility] [address] [id number] [address] [place] [address], [place] [address] Sep, [facility] [address] [id number] [address] [place] [address], [place] [address] Aug, [facility] [address] [id number] [address] [place] [address], [place] [address] Aug, [facility] [address] [id number] [address] [place] [address], [place] [address] Aug, [facility] [address] [id number] [address] [place] [address], [place] [address] Aug, [facility] [address] [id number] [address] [place] [address], [place] [address] 18 Aug, 2012 [facility] [address] [id number] [address] [place] [address], [place] [address] Aug, [facility] [address] [id number] [address] [place] [address], [place] [address] Jul, [facility] [address] [id number] [address] [place] [address], [place] [address] Jul, [facility] [address] [id number] [address] [place] [address], [place] [address] Jul, [facility] [address] [id number] [address] [place] [address], [place] [address] Jul, [facility] [address] [id number] [address] [place] [address], [place] [address] Jul, [facility] [address] [id number] [address] [place] [address], [place] [address] Jul, [facility] [address] [id number] [address] [place] [address], [place] [address] Jun, [facility] [address] [id number] [address] [place] [address], [place] [address] Jun, [facility] [address] [id number] [address] [place] [address], [place] [address] Jun, [facility] [address] [id number] [address] [place] [address], [place] [address] Jun, [facility] [address] [id number] [address] [place] [address], [place] [address] Jun, [facility] [address] [id number] [address] [place] [address], [place] [address] Jun, [facility] [address] [id number] [address] [place] [address], [place] [address] May, [facility] [address] [id number] [address] [place] [address], [place] [address] May, [facility] [address] [id number] [address] [place] [address], [place] [address] May, [facility] [address] [id number] [address] [place] [address], [place] [address] May, [facility] [address] [id number] [address] [place] [address], [place] [address] May, [facility] [address] [id number] [address] [place] [address], [place] [address] May, [facility] [address] [id number] [address] [place] [address], [place] [address] May, [facility] [address] [id number] [address] [place] [address], [place] [address] May, [facility] [address] [id number] [address] [place] [address], [place] [address] May, [facility] [address] [id number] [address] [place] [address], [place] [address] May, [facility] [address] [id number] [address] [place] [address], [place] [address] Apr, [facility] [address] [id number] [address] [place] [address], [place] [address] 31 Apr, 2012 [facility] [address] [id number] [address] [place] [address], [place] [address] Apr, [facility] [address] [id number] [address] [place] [address], [place] [address] 23 Apr, 2012 [facility] [address] [id number] [address] [place] [address], [place] [address] 16 Apr, 2012 [facility] [address] [id number] [address] [place] [address], [place] [address] 16 Apr, 2012 [facility] [address] [id number] [address] [place] [address], [place] [address] 15 Apr, 2012 [facility] [address] [id number] [address] [place] [address], [place] [address] 15 Apr, 2012 [facility] [address] [id number] [address] [place] [address], [place] [address] 05 Apr, 2012 [facility] [address] [id number] [address] [place] [address], [place] [address] 28 Mar, 2012 [facility] [address] [id number] [address] [place] [address], [place] [address] 26 Mar, 2012 [facility] [address] [id number] [address] [place] [address], [place] [address] 25 Mar, 2012 [facility] [address] [id number] [address] [place] [address], [place] [address] 19 Mar, 2012 [facility] [address] [id number] [address] [place] [address], [place] [address] 18 Mar, 2012 [facility] [address] [id number] [address] [place] [address], [place] [address] Mar, [facility] [address] [id number] [address] [place] [address], [place] [address] Feb, [facility] [address] [id number] [address] [place] [address], [place] [address] Feb, [facility] [address] [id number] [address] [place] [address], [place] [address] Feb, [facility] [address] [id number] [address] [place] [address], [place] [address] Jan, [facility] [address] [id number] [address] [place] [address], [place] [address] Jan, [facility] [address] [id number] [address] [place] [address], [place] [address] Jan, [facility] [address] [id number] [address] [place] [address], [place] [address] Jan, [facility] [address] [id number] [address] [place] [address], [place] [address] Dec, [facility] [address] [id number] [address] [place] [address], [place] [address] November, [facility] [address] [id number] [address] [place] [address], [place] [address] November, [facility] [address] [id number] [address] [place] [address], [place] [address] November, [facility] [address] [id number] [address] [place] [address], [place] [address] November, [facility] [address] [id number] [address] [place] [address], [place] [address] November, [facility] [address] [id number] [address] [place] [address], [place] [address] November, [facility] [address] [id number] [address] [place] [address], [place] [address] Oct, [facility] [address] [id number] [address] [place] [address], [place] [address] Oct, [facility] [address] [id number] [address] [place] [address], [place] [address] Sep, [facility] [address] [id number] [address] [place] [address], [place] [address] Sep, [facility] [address] [id number] [address] [place] [address], [place] [address] Sep, [facility] [address] [id number] [address] [place] [address], [place] [address] Aug, [facility] [address] [id number] [address] [place] [address], [place] [address] Aug, [facility] [address] [id number] [address] [place] [address], [place] [address] Aug, [facility] [address] [id number] [address] [place] [address], [place] [address] Aug, [facility] [address] [id number] [address] [place] [address], [place] [address] Aug, [facility] [address] [id number] [address] [place] [address], [place] [address] Aug, [facility] [address] [id number] [address] [place] [address], [place] [address] Jul, [facility] [address] [id number] [address] [place] [address], [place] [address] Jul, [facility] [address] [id number] [address] [place] [address], [place] [address] Jul, [facility] [address] [id number] [address] [place] [address], [place] [address] Jul, [facility] [address] [id number] [address] [place] [address], [place] [address] Jul, [facility] [address] [id number] [address] [place] [address], [place] [address] Jul, [facility] [address] [id number] [address] [place] [address], [place] [address] Jul, [facility] [address] [id number] [address] [place] [address], [place] [address] Jul, [facility] [address] [id number] [address] [place] [address], [place] [address] Jul, [facility] [address] [id number] [address] [place] [address], [place] [address] Jul, [facility] [address] [id number] [address] [place] [address], [place] [address] Jun, [facility] [address] [id number] [address] [place] [address], [place] [address] Jun, [facility] [address] [id number] [address] [place] [address], [place] [address] Jun, [facility] [address] [id number] [address] [place] [address], [place] [address] Jun, [facility] [address] [id number] [address] [place] [address] [address] 30 May, 2011 [facility] [address] [id number] [address] [place] [address], [place] [address] 29 May, 2011 [facility] [address] [id number] [address] [place] [address], [place] [address] 22 May, 2011 [facility] [address] [id number] [address] [place] [address], [place] [address] 08 May, 2011 [facility] [address] [id number] [address] [place] [address], [place] [address] 31 Apr, 2011 [facility] [address] [id number] [address] [place] [address], [place] [address] 31 Apr, 2011 [facility] [address] [id number] [address] [place] [address], [place] [address] November, [facility] [address] [id number] [address] [place] [address], [place] [address] 18 Oct, 2010 [facility] [address] [id number] [address] [place] [address], [place] [address] 17 Aug, 2010 [facility] [address] [id number] [address] [place] [address], [place] [address] Jun, [facility] [address] [id number] [address] [place] [address], [place] [address] 28 Jun, 2010 [facility] [address] [id number] [address] [place] [address], [place] [address] Jun, [facility] [address] [id number] [address] [place] [address], [place] [address] 03 Jun, 2010 [facility] [address] [id number] [address] [place] [address], [place] [address] 29 May, 2010 [facility] [address] [id number] [address] [place] [address], [place] [address] 27 Apr, 2010 [facility] [address] [id number] [address] [place] [address], [place] [address] 13 Oct, 2009 [facility] [address] [id number] [address] [place] [address] 13 Aug, 2009 [facility] [address] [id number] [address] [place] [address] Jul, [facility] [address] [id number] [address] [place] [address] Jun, [facility] [address] [id number] [address] [place] [address] 16 Jun, 2009 [facility] [address] [id number] [address] [place] [address] Jun, [facility] [address] [facility] [id number] [address] [place] [address] Jun, [facility] [address] [facility] [id number] [address] [place] [address] May, [facility] [address] [facility] [id number] [address] [place] [address] Apr, [facility] [address] [id number] [address] [place] [address] 15 Mar, 2009 [facility] [address] [facility] [id number] [address] [place] [address] 14 Mar, 2009 [facility] [address] [facility] [id number] [address] [place] [address] Dec, IMMUNIZATIONS No Known Immunizations SOCIAL HISTORY [...]
--- OUTSIDE RECORDS SUMMARY | 2019-09-01 05:46 | XMS REPORT ---
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 [facility] [address] [id number] [address] [place] [address], [place] [address] 19 Jun, 2014 [facility] [address] [id number] [address] [place] [address], [place] [address] Jun, [facility] [address] [id number] [address] [place] [address], [place] [address] Jun, [facility] [address] [id number] [address] [place] [address], [place] [address] Jun, [facility] [address] [id number] [address] [place] [address], [place] [address] Jun, [facility] [address] [id number] [address] [place] [address], [place] [address] Jun, [facility] [address] [id number] [address] [place] [address], [place] [address] Jun, [facility] [address] [id number] [address] [place] [address], [place] [address] Jun, [facility] [address] [id number] [address] [place] [address], [place] [address] Jun, [facility] [address] [id number] [address] [place] [address], [place] [address] Jun, [facility] [address] [id number] [address] [place] [address], [place] [address] Jun, [facility] [address] [id number] [address] [place] [address], [place] [address] Jun, [facility] [address] [id number] [address] [place] [address], [place] [address] Jun, [facility] [address] [id number] [address] [place] [address], [place] [address] Jun, [facility] [address] [id number] [address] [place] [address], [place] [address] Jun, [facility] [address] [id number] [address] [place] [address], [place] [address] May, [facility] [address] [id number] [address] [place] [address], [place] [address] May, [facility] [address] [id number] [address] [place] [address], [place] [address] May, [facility] [address] [id number] [address] [place] [address], [place] [address] May, [facility] [address] [id number] [address] [place] [address], [place] [address] Apr, [facility] [address] [id number] [address] [place] [address], [place] [address] Apr, [facility] [address] [id number] [address] [place] [address], [place] [address] Apr, [facility] [address] [id number] [address] [place] [address], [place] [address] Apr, [facility] [address] [id number] [address] [place] [address], [place] [address] Apr, [facility] [address] [id number] [address] [place] [address], [place] [address] Apr, [facility] [address] [id number] [address] [place] [address], [place] [address] Apr, [facility] [address] [id number] [address] [place] [address], [place] [address] Apr, [facility] [address] [id number] [address] [place] [address], [place] [address] Apr, [facility] [address] [id number] [address] [place] [address], [place] [address] Apr, [facility] [address] [id number] [address] [place] [address], [place] [address] Mar, [facility] [address] [id number] [address] [place] [address], [place] [address] 29 Mar, 2014 [facility] [address] [id number] [address] [place] [address], [place] [address] 29 Mar, 2014 [facility] [address] [id number] [address] [place] [address], [place] [address] Mar, 2013 [facility] [address] [id number] [facility] [place] [address] Mar, 2013 [facility] [address] [id number] [address] [place] [address], [place] [address] Mar, 2013 [facility] [address] [id number] [address] [place] [address], [place] [address] Mar, 2013 [facility] [address] [id number] [address] [place] [address], [place] [address] Mar, 2013 [facility] [address] [id number] [address] [place] [address], [place] [address] Mar, 2013 [facility] [address] [id number] [address] [place] [address], [place] [address] Mar, 2013 [facility] [address] [id number] [address] [place] [address], [place] [address] Mar, 2013 [facility] [address] [id number] [address] [place] [address], [place] [address] Mar, 2013 [facility] [address] [id number] [address] [place] [address], [place] [address] Feb, [facility] [address] [id number] [address] [place] [address], [place] [address] Feb, [facility] [address] [id number] [address] [place] [address], [place] [address] Jan, [facility] [address] [id number] [address] [place] [address], [place] [address] Jan, [facility] [address] [id number] [address] [place] [address], [place] [address] Jan, [facility] [address] [id number] [address] [place] [address], [place] [address] Jan, [facility] [address] [id number] [address] [place] [address], [place] [address] Dec, [facility] [address] [id number] [address] [place] [address], [place] [address] Dec, [facility] [address] [id number] [address] [place] [address], [place] [address] Dec, [facility] [address] [id number] [address] [place] [address], [place] [address] Dec, [facility] [address] [id number] [address] [place] [address], [place] [address] Dec, [facility] [address] [id number] [address] [place] [address], [place] [address] Dec, [facility] [address] [id number] [address] [place] [address], [place] [address] November, [facility] [address] [id number] [address] [place] [address], [place] [address] November, [facility] [address] [id number] [address] [place] [address], [place] [address] November, [facility] [address] [id number] [address] [place] [address], [place] [address] November, [facility] [address] [id number] [address] [place] [address], [place] [address] November, [facility] [address] [id number] [address] [place] [address], [place] [address] November, [address] [id number] November, [facility] [address] [id number] [address] [place] [address], [place] [address] November, [facility] [address] [id number] [address] [place] [address], [place] [address] November, [facility] [address] [id number] [address] [place] [address], [place] [address] November, [facility] [address] [id number] [address] [place] [address], [place] [address] November, [facility] [address] [id number] [address] [place] [address], [place] [address] November, [facility] [address] [id number] [address] [place] [address], [place] [address] Oct, [facility] [address] [id number] [address] [place] [address], [place] [address] Oct, [facility] [address] [id number] [address] [place] [address], [place] [address] Oct, [facility] [address] [id number] [address] [place] [address], [place] [address] Oct, [facility] [address] [id number] [address] [place] [address], [place] [address] Oct, [facility] [address] [id number] [address] [place] [address], [place] [address] Oct, [facility] [address] [id number] [address] [place] [address], [place] [address] Oct, [facility] [address] [id number] [address] [place] [address], [place] [address] Oct, [facility] [address] [id number] [address] [place] [address], [place] [address] Oct, [facility] [address] [id number] [address] [place] [address], [place] [address] Oct, [facility] [address] [id number] [address] [place] [address], [place] [address] Oct, [facility] [address] [id number] [address] [place] [address], [place] [address] Oct, [facility] [address] [id number] [address] [place] [address], [place] [address] Oct, [facility] [address] [id number] [address] [place] [address], [place] [address] Oct, [facility] [address] [id number] [address] [place] [address], [place] [address] Oct, [facility] [address] [id number] [address] [place] [address], [place] [address] Sep, [facility] [address] [id number] [address] [place] [address], [place] [address] Sep, [facility] [address] [id number] [address] [place] [address], [place] [address] Sep, [facility] [address] [id number] [address] [place] [address], [place] [address] Sep, [facility] [address] [id number] [address] [place] [address], [place] [address] Aug, [facility] [address] [id number] [address] [place] [address], [place] [address] Aug, [facility] [address] [id number] [address] [place] [address], [place] [address] Aug, [facility] [address] [id number] [address] [place] [address], [place] [address] Aug, [facility] [address] [id number] [address] [place] [address], [place] [address] Jul, [facility] [address] [id number] [address] [place] [address], [place] [address] Jul, [facility] [address] [id number] [address] [place] [address], [place] [address] Jul, [facility] [address] [id number] [address] [place] [address], [place] [address] Jul, [facility] [address] [id number] [address] [place] [address], [place] [address] Jul, [facility] [address] [id number] [address] [place] [address], [place] [address] Jul, [facility] [address] [id number] [address] [place] [address], [place] [address] Jul, [facility] [address] [id number] [address] [place] [address], [place] [address] 14 Jul, 2013 [facility] [address] [id number] [address] [place] [address], [place] [address] 14 Jul, 2013 [facility] [address] [id number] [address] [place] [address], [place] [address] 09 Jul, 2013 [facility] [address] [id number] [address] [place] [address], [place] [address] Jul, [facility] [address] [id number] [address] [place] [address], [place] [address] Jul, [facility] [address] [id number] [address] [place] [address], [place] [address] Jul, [facility] [address] [id number] [address] [place] [address], [place] [address] Jul, [facility] [address] [id number] [address] [place] [address], [place] [address] Jun, [facility] [address] [id number] [address] [place] [address], [place] [address] Jun, [facility] [address] [id number] [address] [place] [address], [place] [address] Jun, [facility] [address] [id number] [address] [place] [address], [place] [address] Jun, [facility] [address] [id number] [address] [place] [address], [place] [address] May, [facility] [address] [id number] [address] [place] [address], [place] [address] May, [facility] [address] [id number] [address] [place] [address], [place] [address] May, [facility] [address] [id number] [address] [place] [address], [place] [address] May, [facility] [address] [id number] [address] [place] [address], [place] [address] May, [facility] [address] [id number] [address] [place] [address], [place] [address] May, [facility] [address] [id number] [address] [place] [address], [place] [address] May, [facility] [address] [id number] [address] [place] [address], [place] [address] May, [facility] [address] [id number] [address] [place] [address], [place] [address] Apr, [facility] [address] [id number] [address] [place] [address], [place] [address] Apr, [facility] [address] [id number] [address] [place] [address], [place] [address] Apr, [facility] [address] [id number] [address] [place] [address], [place] [address] Apr, [facility] [address] [id number] [address] [place] [address], [place] [address] Apr, [facility] [address] [id number] [address] [place] [address], [place] [address] Apr, [facility] [address] [id number] [address] [place] [address], [place] [address] 30 Mar, 2013 [facility] [address] [id number] [address] [place] [address], [place] [address] 26 Mar, 2013 [facility] [address] [id number] [address] [place] [address], [place] [address] 20 Mar, 2013 [facility] [address] [id number] [address] [place] [address], [place] [address] 17 Sep2012 [facility] [address] [id number] [address] [place] [address], [place] [address] 16 Mar, 2013 [facility] [address] [id number] [address] [place] [address], [place] [address] 05 Mar, 2013 [facility] [address] [id number] [address] [place] [address], [place] [address] Feb, [facility] [address] [id number] [address] [place] [address], [place] [address] Feb, [facility] [address] [id number] [address] [place] [address], [place] [address] Feb, [facility] [address] [id number] [address] [place] [address], [place] [address] Feb, [facility] [address] [id number] [address] [place] [address], [place] [address] Jan, [facility] [address] [id number] [address] [place] [address], [place] [address] Jan, [facility] [address] [id number] [address] [place] [address], [place] [address] Jan, [facility] [address] [id number] [address] [place] [address], [place] [address] Jan, [facility] [address] [id number] [address] [place] [address], [place] [address] Jan, [facility] [address] [id number] [address] [place] [address], [place] [address] Dec, [facility] [address] [id number] [address] [place] [address], [place] [address] Dec, [facility] [address] [id number] [address] [place] [address], [place] [address] Dec, [facility] [address] [id number] [address] [place] [address], [place] [address] November, [facility] [address] [id number] [address] [place] [address], [place] [address] November, [facility] [address] [id number] [address] [place] [address], [place] [address] November, [facility] [address] [id number] [address] [place] [address], [place] [address] Oct, [facility] [address] [id number] [address] [place] [address], [place] [address] 26 Oct, 2012 [facility] [address] [id number] [address] [place] [address], [place] [address] Oct, [facility] [address] [id number] [address] [place] [address], [place] [address] 25 Oct, 2012 [facility] [address] [id number] [address] [place] [address], [place] [address] 18 Oct, 2012 [facility] [address] [id number] [address] [place] [address], [place] [address] 17 Oct, 2012 [facility] [address] [id number] [address] [place] [address], [place] [address] 15 Oct, 2012 [facility] [address] [id number] [address] [place] [address], [place] [address] Sep, [facility] [address] [id number] [address] [place] [address], [place] [address] Sep, [facility] [address] [id number] [address] [place] [address], [place] [address] 06 Sep, 2012 [facility] [address] [id number] [address] [place] [address], [place] [address] 06 Sep, 2012 [facility] [address] [id number] [address] [place] [address], [place] [address] Aug, [facility] [address] [id number] [address] [place] [address], [place] [address] Aug, [facility] [address] [id number] [address] [place] [address], [place] [address] Aug, [facility] [address] [id number] [address] [place] [address], [place] [address] Aug, [facility] [address] [id number] [address] [place] [address], [place] [address] 18 Aug, 2012 [facility] [address] [id number] [address] [place] [address], [place] [address] Aug, [facility] [address] [id number] [address] [place] [address], [place] [address] Jul, [facility] [address] [id number] [address] [place] [address], [place] [address] Jul, [facility] [address] [id number] [address] [place] [address], [place] [address] Jul, [facility] [address] [id number] [address] [place] [address], [place] [address] Jul, [facility] [address] [id number] [address] [place] [address], [place] [address] Jul, [facility] [address] [id number] [address] [place] [address], [place] [address] Jul, [facility] [address] [id number] [address] [place] [address], [place] [address] Jun, [facility] [address] [id number] [address] [place] [address], [place] [address] Jun, [facility] [address] [id number] [address] [place] [address], [place] [address] Jun, [facility] [address] [id number] [address] [place] [address], [place] [address] Jun, [facility] [address] [id number] [address] [place] [address], [place] [address] Jun, [facility] [address] [id number] [address] [place] [address], [place] [address] Jun, [facility] [address] [id number] [address] [place] [address], [place] [address] May, [facility] [address] [id number] [address] [place] [address], [place] [address] May, [facility] [address] [id number] [address] [place] [address], [place] [address] May, [facility] [address] [id number] [address] [place] [address], [place] [address] May, [facility] [address] [id number] [address] [place] [address], [place] [address] May, [facility] [address] [id number] [address] [place] [address], [place] [address] May, [facility] [address] [id number] [address] [place] [address], [place] [address] May, [facility] [address] [id number] [address] [place] [address], [place] [address] May, [facility] [address] [id number] [address] [place] [address], [place] [address] May, [facility] [address] [id number] [address] [place] [address], [place] [address] May, [facility] [address] [id number] [address] [place] [address], [place] [address] Apr, [facility] [address] [id number] [address] [place] [address], [place] [address] 31 Apr, 2012 [facility] [address] [id number] [address] [place] [address], [place] [address] Apr, [facility] [address] [id number] [address] [place] [address], [place] [address] 23 Apr, 2012 [facility] [address] [id number] [address] [place] [address], [place] [address] 16 Apr, 2012 [facility] [address] [id number] [address] [place] [address] 16 Apr, 2012 [facility] [address] [id number] [address] [place] [address], [place] [address] 15 Apr, 2012 [facility] [address] [id number] [address] [place] [address], [place] [address] 15 Apr, 2012 [facility] [address] [id number] [address] [place] [address], [place] [address] Apr, [facility] [address] [id number] [address] [place] [address], [place] [address] 28 Mar, 2012 [facility] [address] [id number] [address] [place] [address], [place] [address] 26 Mar, 2012 [facility] [address] [id number] [address] [place] [address], [place] [address] 25 Mar, 2012 [facility] [address] [id number] [address] [place] [address], [place] [address] 19 Mar, 2012 [facility] [address] [id number] [address] [place] [address], [place] [address] 18 Mar, 2012 [facility] [address] [id number] [address] [place] [address], [place] [address] Mar, [facility] [address] [id number] [address] [place] [address], [place] [address] Feb, [facility] [address] [id number] [address] [place] [address], [place] [address] Feb, [facility] [address] [id number] [address] [place] [address], [place] [address] Feb, [facility] [address] [id number] [address] [place] [address], [place] [address] Jan, [facility] [address] [id number] [address] [place] [address], [place] [address] Jan, [facility] [address] [id number] [address] [place] [address], [place] [address] Jan, [facility] [address] [id number] [address] [place] [address], [place] [address] Jan, [facility] [address] [id number] [address] [place] [address], [place] [address] Dec, [facility] [address] [id number] [address] [place] [address], [place] [address] November, [facility] [address] [id number] [address] [place] [address], [place] [address] November, [facility] [address] [id number] [address] [place] [address], [place] [address] November, [facility] [address] [id number] [address] [place] [address], [place] [address] November, [facility] [address] [id number] [address] [place] [address], [place] [address] November, [facility] [address] [id number] [address] [place] [address], [place] [address] November, [facility] [address] [id number] [address] [place] [address], [place] [address] Oct, [facility] [address] [id number] [address] [place] [address], [place] [address] Oct, [facility] [address] [id number] [address] [place] [address], [place] [address] Sep, [facility] [address] [id number] [address] [place] [address], [place] [address] Sep, [facility] [address] [id number] [address] [place] [address], [place] [address] Sep, [facility] [address] [id number] [address] [place] [address], [place] [address] Aug, [facility] [address] [id number] [address] [place] [address], [place] [address] Aug, [facility] [address] [id number] [address] [place] [address], [place] [address] Aug, [facility] [address] [id number] [address] [place] [address], [place] [address] Aug, [facility] [address] [id number] [address] [place] [address], [place] [address] Aug, [facility] [address] [id number] [address] [place] [address], [place] [address] Aug, [facility] [address] [id number] [address] [place] [address], [place] [address] Jul, [facility] [address] [id number] [address] [place] [address], [place] [address] Jul, [facility] [address] [id number] [address] [place] [address], [place] [address] Jul, [facility] [address] [id number] [address] [place] [address], [place] [address] Jul, [facility] [address] [id number] [address] [place] [address], [place] [address] Jul, [facility] [address] [id number] [address] [place] [address], [place] [address] Jul, [facility] [address] [id number] [address] [place] [address], [place] [address] 17 Jul, 2011 [facility] [address] [id number] [address] [place] [address], [place] [address] Jul, [facility] [address] [id number] [address] [place] [address], [place] [address] Jul, [facility] [address] [id number] [address] [place] [address], [place] [address] Jul, [facility] [address] [id number] [address] [place] [address], [place] [address] Jun, [facility] [address] [id number] [address] [place] [address], [place] [address] Jun, [facility] [address] [id number] [address] [place] [address], [place] [address] Jun, [facility] [address] [id number] [address] [place] [address], [place] [address] Jun, [facility] [address] [id number] [address] [place] [address], [place] [address] 30 May, 2011 [facility] [address] [id number] [address] [place] [address] [address] 29 May, 2011 [facility] [address] [id number] [address] [place] [address], [place] [address] 22 May, 2011 [facility] [address] [id number] [address] [place] [address], [place] [address] 08 May, 2011 [facility] [address] [id number] [address] [place] [address], [place] [address] 31 Apr, 2011 [facility] [address] [id number] [address] [place] [address], [place] [address] 31 Apr, 2011 [facility] [address] [id number] [address] [place] [address], [place] [address] November, [facility] [address] [id number] [address] [place] [address], [place] [address] 18 Oct, 2010 [facility] [address] [id number] [address] [place] [address], [place] [address] 17 Aug, 2010 [facility] [address] [id number] [address] [place] [address], [place] [address] Jun, [facility] [address] [id number] [address] [place] [address], [place] [address] Jun, [facility] [address] [id number] [address] [place] [address], [place] [address] Jun, [facility] [address] [id number] [address] [place] [address], [place] [address] 03 Jun, 2010 [facility] [address] [id number] [address] [place] [address], [place] [address] 29 May, 2010 [facility] [address] [id number] [address] [place] [address], [place] [address] Apr, [facility] [address] [id number] [address] [place] [address], [place] [address] Oct, [facility] [address] [id number] [address] [place] [address], [place] [address] 13 Aug, 2009 [facility] [address] [id number] [address] [place] [address] Jul, [facility] [address] [id number] [address] [place] [address] Jun, [facility] [address] [id number] [address] [place] [address] 16 Jun, 2009 [facility] [address] [id number] [address] [place] [address] 14 Jun, 2009 [facility] [address] [id number] [address] [place] [address] 14 Jun, 2009 [facility] [address] [id number] [address] [place] [address] May, [facility] [address] [id number] [address] [place] [address] Apr, [facility] [address] [id number] [address] [place] [address] 15 Mar, 2009 [facility] [address] [id number] [address] [place] [address] 14 Mar, 2009 [facility] [address] [id number] [address] [place] [address] 11 Dec, 2008 IMMUNIZATIONS No Known Immunizations SOCIAL HISTORY Never Assessed REASON FOR VISIT Medication refill request PLAN OF CARE VITAL SIGNS MEDICATIONS Medication Instructions Dosage Frequency Start Date End Date Duration S tatus Metoprolol Tartrate 25 MG Orally Twice a day 1 tablet with food 12h 30 day(s) Active Metformin HCl 500 mg Orally 2 times a day 1 tablet 12h Active Rizatriptan Benzoate 10 mg Orally Once a day 1 tablet 24h Active Duloxetine HCl 60 mg Orally Twice a day 1 capsule 12h 30 days Active Symbicort 160-4.5 MCG/ACT Inhalation Twice a day 2 puffs 12h Active ProAir HFA 108 (90 Base) MCG/ACT [...]
--- OUTSIDE RECORDS SUMMARY | 2019-09-01 05:46 | XMS REPORT ---
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 [facility] [address] [id number] [address] [place] [address], [place] [address] 19 Jun, 2014 [facility] [address] [id number] [address] [place] [address], [place] [address] Jun, [facility] [address] [id number] [address] [place] [address], [place] [address] Jun, [facility] [address] [id number] [address] [place] [address], [place] [address] Jun, [facility] [address] [id number] [address] [place] [address], [place] [address] Jun, [facility] [address] [id number] [address] [place] [address], [place] [address] Jun, [facility] [address] [id number] [address] [place] [address], [place] [address] Jun, [facility] [address] [id number] [address] [place] [address], [place] [address] Jun, [facility] [address] [id number] [address] [place] [address], [place] [address] Jun, [facility] [address] [id number] [address] [place] [address], [place] [address] Jun, [facility] [address] [id number] [address] [place] [address], [place] [address] Jun, [facility] [address] [id number] [address] [place] [address], [place] [address] Jun, [facility] [address] [id number] [address] [place] [address], [place] [address] Jun, [facility] [address] [id number] [address] [place] [address], [place] [address] Jun, [facility] [address] [id number] [address] [place] [address], [place] [address] Jun, [facility] [address] [id number] [address] [place] [address], [place] [address] May, [facility] [address] [id number] [address] [place] [address], [place] [address] May, [facility] [address] [id number] [address] [place] [address], [place] [address] May, [facility] [address] [id number] [address] [place] [address], [place] [address] May, [facility] [address] [id number] [address] [place] [address], [place] [address] Apr, [facility] [address] [id number] [address] [place] [address], [place] [address] Apr, [facility] [address] [id number] [address] [place] [address], [place] [address] Apr, [facility] [address] [id number] [address] [place] [address], [place] [address] Apr, [facility] [address] [id number] [address] [place] [address], [place] [address] Apr, [facility] [address] [id number] [address] [place] [address], [place] [address] Apr, [facility] [address] [id number] [address] [place] [address], [place] [address] Apr, [facility] [address] [id number] [address] [place] [address], [place] [address] Apr, [facility] [address] [id number] [address] [place] [address], [place] [address] Apr, [facility] [address] [id number] [address] [place] [address], [place] [address] Apr, [facility] [address] [id number] [address] [place] [address], [place] [address] Mar, [facility] [address] [id number] [address] [place] [address], [place] [address] 29 Mar, 2014 [facility] [address] [id number] [address] [place] [address], [place] [address] 29 Mar, 2014 [facility] [address] [id number] [address] [place] [address], [place] [address] Mar, 2013 [facility] [address] [id number] [facility] [place] [address] Mar, 2013 [facility] [address] [id number] [address] [place] [address], [place] [address] Mar, 2013 [facility] [address] [id number] [address] [place] [address], [place] [address] Mar, 2013 [facility] [address] [id number] [address] [place] [address], [place] [address] Mar, 2013 [facility] [address] [id number] [address] [place] [address], [place] [address] Mar, 2013 [facility] [address] [id number] [address] [place] [address], [place] [address] Mar, 2013 [facility] [address] [id number] [address] [place] [address], [place] [address] Mar, 2013 [facility] [address] [id number] [address] [place] [address], [place] [address] Mar, 2013 [facility] [address] [id number] [address] [place] [address], [place] [address] Feb, [facility] [address] [id number] [address] [place] [address], [place] [address] Feb, [facility] [address] [id number] [address] [place] [address], [place] [address] Jan, [facility] [address] [id number] [address] [place] [address], [place] [address] Jan, [facility] [address] [id number] [address] [place] [address], [place] [address] Jan, [facility] [address] [id number] [address] [place] [address], [place] [address] Jan, [facility] [address] [id number] [address] [place] [address], [place] [address] Dec, [facility] [address] [id number] [address] [place] [address], [place] [address] Dec, [facility] [address] [id number] [address] [place] [address], [place] [address] Dec, [facility] [address] [id number] [address] [place] [address], [place] [address] Dec, [facility] [address] [id number] [address] [place] [address], [place] [address] Dec, [facility] [address] [id number] [address] [place] [address], [place] [address] Dec, [facility] [address] [id number] [address] [place] [address], [place] [address] November, [facility] [address] [id number] [address] [place] [address], [place] [address] November, [facility] [address] [id number] [address] [place] [address], [place] [address] November, [facility] [address] [id number] [address] [place] [address], [place] [address] November, [facility] [address] [id number] [address] [place] [address], [place] [address] November, [facility] [address] [id number] [address] [place] [address], [place] [address] November, [address] [id number] November, [facility] [address] [id number] [address] [place] [address], [place] [address] November, [facility] [address] [id number] [address] [place] [address], [place] [address] November, [facility] [address] [id number] [address] [place] [address], [place] [address] November, [facility] [address] [id number] [address] [place] [address], [place] [address] November, [facility] [address] [id number] [address] [place] [address], [place] [address] November, [facility] [address] [id number] [address] [place] [address], [place] [address] Oct, [facility] [address] [id number] [address] [place] [address], [place] [address] Oct, [facility] [address] [id number] [address] [place] [address], [place] [address] Oct, [facility] [address] [id number] [address] [place] [address], [place] [address] Oct, [facility] [address] [id number] [address] [place] [address], [place] [address] Oct, [facility] [address] [id number] [address] [place] [address], [place] [address] Oct, [facility] [address] [id number] [address] [place] [address], [place] [address] Oct, [facility] [address] [id number] [address] [place] [address], [place] [address] Oct, [facility] [address] [id number] [address] [place] [address], [place] [address] Oct, [facility] [address] [id number] [address] [place] [address], [place] [address] Oct, [facility] [address] [id number] [address] [place] [address], [place] [address] Oct, [facility] [address] [id number] [address] [place] [address], [place] [address] Oct, [facility] [address] [id number] [address] [place] [address], [place] [address] Oct, [facility] [address] [id number] [address] [place] [address], [place] [address] Oct, [facility] [address] [id number] [address] [place] [address], [place] [address] Oct, [facility] [address] [id number] [address] [place] [address], [place] [address] Sep, [facility] [address] [id number] [address] [place] [address], [place] [address] Sep, [facility] [address] [id number] [address] [place] [address], [place] [address] Sep, [facility] [address] [id number] [address] [place] [address], [place] [address] Sep, [facility] [address] [id number] [address] [place] [address], [place] [address] Aug, [facility] [address] [id number] [address] [place] [address], [place] [address] Aug, [facility] [address] [id number] [address] [place] [address], [place] [address] Aug, [facility] [address] [id number] [address] [place] [address], [place] [address] Aug, [facility] [address] [id number] [address] [place] [address], [place] [address] Jul, [facility] [address] [id number] [address] [place] [address], [place] [address] Jul, [facility] [address] [id number] [address] [place] [address], [place] [address] Jul, [facility] [address] [id number] [address] [place] [address], [place] [address] Jul, [facility] [address] [id number] [address] [place] [address], [place] [address] Jul, [facility] [address] [id number] [address] [place] [address], [place] [address] Jul, [facility] [address] [id number] [address] [place] [address], [place] [address] Jul, [facility] [address] [id number] [address] [place] [address], [place] [address] 14 Jul, 2013 [facility] [address] [id number] [address] [place] [address], [place] [address] 14 Jul, 2013 [facility] [address] [id number] [address] [place] [address], [place] [address] 09 Jul, 2013 [facility] [address] [id number] [address] [place] [address], [place] [address] Jul, [facility] [address] [id number] [address] [place] [address], [place] [address] Jul, [facility] [address] [id number] [address] [place] [address], [place] [address] Jul, [facility] [address] [id number] [address] [place] [address], [place] [address] Jul, [facility] [address] [id number] [address] [place] [address], [place] [address] Jun, [facility] [address] [id number] [address] [place] [address], [place] [address] Jun, [facility] [address] [id number] [address] [place] [address], [place] [address] Jun, [facility] [address] [id number] [address] [place] [address], [place] [address] Jun, [facility] [address] [id number] [address] [place] [address], [place] [address] May, [facility] [address] [id number] [address] [place] [address], [place] [address] May, [facility] [address] [id number] [address] [place] [address], [place] [address] May, [facility] [address] [id number] [address] [place] [address], [place] [address] May, [facility] [address] [id number] [address] [place] [address], [place] [address] May, [facility] [address] [id number] [address] [place] [address], [place] [address] May, [facility] [address] [id number] [address] [place] [address], [place] [address] May, [facility] [address] [id number] [address] [place] [address], [place] [address] May, [facility] [facility] [address] [id number] [address] [place] [address], [place] [address] Apr, [facility] [address] [id number] [address] [place] [address], [place] [address] Apr, [facility] [address] [id number] [address] [place] [address], [place] [address] Apr, [facility] [address] [id number] [address] [place] [address], [place] [address] Apr, [facility] [address] [id number] [address] [place] [address], [place] [address] Apr, [facility] [address] [id number] [address] [place] [address], [place] [address] Apr, [facility] [address] [id number] [address] [place] [address], [place] [address] 30 Mar, 2013 [facility] [address] [id number] [address] [place] [address], [place] [address] 26 Mar, 2013 [facility] [address] [id number] [address] [place] [address], [place] [address] 20 Mar, 2013 [facility] [address] [id number] [address] [place] [address], [place] [address] 17 Sep2012 [facility] [address] [id number] [address] [place] [address], [place] [address] 16 Mar, 2013 [facility] [address] [id number] [address] [place] [address], [place] [address] 05 Mar, 2013 [facility] [address] [id number] [address] [place] [address], [place] [address] Feb, [facility] [address] [id number] [address] [place] [address], [place] [address] Feb, [facility] [address] [id number] [address] [place] [address], [place] [address] Feb, [facility] [address] [id number] [address] [place] [address], [place] [address] Feb, [facility] [address] [id number] [address] [place] [address], [place] [address] Jan, [facility] [address] [id number] [address] [place] [address], [place] [address] Jan, [facility] [address] [id number] [address] [place] [address], [place] [address] Jan, [facility] [address] [id number] [address] [place] [address], [place] [address] Jan, [facility] [address] [id number] [address] [place] [address], [place] [address] Jan, [facility] [address] [id number] [address] [place] [address], [place] [address] Dec, [facility] [address] [id number] [address] [place] [address], [place] [address] Dec, [facility] [address] [id number] [address] [place] [address], [place] [address] Dec, [facility] [address] [id number] [address] [place] [address], [place] [address] November, [facility] [address] [id number] [address] [place] [address], [place] [address] November, [facility] [address] [id number] [address] [place] [address], [place] [address] November, [facility] [address] [id number] [address] [place] [address], [place] [address] Oct, [facility] [address] [id number] [address] [place] [address], [place] [address] 26 Oct, 2012 [facility] [address] [id number] [address] [place] [address], [place] [address] Oct, [facility] [address] [id number] [address] [place] [address], [place] [address] 25 Oct, 2012 [facility] [address] [id number] [address] [place] [address], [place] [address] 18 Oct, 2012 [facility] [address] [id number] [address] [place] [address], [place] [address] 17 Oct, 2012 [facility] [address] [id number] [address] [place] [address], [place] [address] 15 Oct, 2012 [facility] [address] [id number] [address] [place] [address], [place] [address] Sep, [facility] [address] [id number] [address] [place] [address], [place] [address] Sep, [facility] [address] [id number] [address] [place] [address], [place] [address] 06 Sep, 2012 [facility] [address] [id number] [address] [place] [address], [place] [address] 06 Sep, 2012 [facility] [address] [id number] [address] [place] [address], [place] [address] Aug, [facility] [address] [id number] [address] [place] [address], [place] [address] Aug, [facility] [address] [id number] [address] [place] [address], [place] [address] Aug, [facility] [address] [id number] [address] [place] [address], [place] [address] Aug, [facility] [address] [id number] [address] [place] [address], [place] [address] 18 Aug, 2012 [facility] [address] [id number] [address] [place] [address], [place] [address] Aug, [facility] [address] [id number] [address] [place] [address], [place] [address] Jul, [facility] [address] [id number] [address] [place] [address], [place] [address] Jul, [facility] [address] [id number] [address] [place] [address], [place] [address] Jul, [facility] [address] [id number] [address] [place] [address], [place] [address] Jul, [facility] [address] [id number] [address] [place] [address], [place] [address] Jul, [facility] [address] [id number] [address] [place] [address], [place] [address] Jul, [facility] [address] [id number] [address] [place] [address], [place] [address] Jun, [facility] [address] [id number] [address] [place] [address], [place] [address] Jun, [facility] [address] [id number] [address] [place] [address], [place] [address] Jun, [facility] [address] [id number] [address] [place] [address], [place] [address] Jun, [facility] [address] [id number] [address] [place] [address], [place] [address] Jun, [facility] [address] [id number] [address] [place] [address], [place] [address] Jun, [facility] [address] [id number] [address] [place] [address], [place] [address] May, [facility] [address] [id number] [address] [place] [address], [place] [address] May, [facility] [address] [id number] [address] [place] [address], [place] [address] May, [facility] [address] [id number] [address] [place] [address], [place] [address] May, [facility] [address] [id number] [address] [place] [address], [place] [address] May, [facility] [address] [id number] [address] [place] [address], [place] [address] May, [facility] [address] [id number] [address] [place] [address], [place] [address] May, [facility] [address] [id number] [address] [place] [address], [place] [address] May, [facility] [address] [id number] [address] [place] [address], [place] [address] May, [facility] [address] [id number] [address] [place] [address], [place] [address] May, [facility] [address] [id number] [address] [place] [address], [place] [address] Apr, [facility] [address] [id number] [address] [place] [address], [place] [address] 31 Apr, 2012 [facility] [address] [id number] [address] [place] [address], [place] [address] Apr, [facility] [address] [id number] [address] [place] [address], [place] [address] 23 Apr, 2012 [facility] [address] [id number] [address] [place] [address], [place] [address] 16 Apr, 2012 [facility] [address] [id number] [address] [place] [address] 16 Apr, 2012 [facility] [address] [id number] [address] [place] [address], [place] [address] 15 Apr, 2012 [facility] [address] [id number] [address] [place] [address], [place] [address] 15 Apr, 2012 [facility] [address] [id number] [address] [place] [address], [place] [address] Apr, [facility] [address] [id number] [address] [place] [address], [place] [address] 28 Mar, 2012 [facility] [address] [id number] [address] [place] [address], [place] [address] 26 Mar, 2012 [facility] [address] [id number] [address] [place] [address], [place] [address] 25 Mar, 2012 [facility] [address] [id number] [address] [place] [address], [place] [address] 19 Mar, 2012 [facility] [address] [id number] [address] [place] [address], [place] [address] 18 Mar, 2012 [facility] [address] [id number] [address] [place] [address], [place] [address] Mar, [facility] [address] [id number] [address] [place] [address], [place] [address] Feb, [facility] [address] [id number] [address] [place] [address], [place] [address] Feb, [facility] [address] [id number] [address] [place] [address], [place] [address] Feb, [facility] [address] [id number] [address] [place] [address], [place] [address] Jan, [facility] [address] [id number] [address] [place] [address], [place] [address] Jan, [facility] [address] [id number] [address] [place] [address], [place] [address] Jan, [facility] [address] [id number] [address] [place] [address], [place] [address] Jan, [facility] [address] [id number] [address] [place] [address], [place] [address] Dec, [facility] [address] [id number] [address] [place] [address], [place] [address] November, [facility] [address] [id number] [address] [place] [address], [place] [address] November, [facility] [address] [id number] [address] [place] [address], [place] [address] November, [facility] [address] [id number] [address] [place] [address], [place] [address] November, [facility] [address] [id number] [address] [place] [address], [place] [address] November, [facility] [address] [id number] [address] [place] [address], [place] [address] November, [facility] [address] [id number] [address] [place] [address], [place] [address] Oct, [facility] [address] [id number] [address] [place] [address], [place] [address] Oct, [facility] [address] [id number] [address] [place] [address], [place] [address] Sep, [facility] [address] [id number] [address] [place] [address], [place] [address] Sep, [facility] [address] [id number] [address] [place] [address], [place] [address] Sep, [facility] [address] [id number] [address] [place] [address], [place] [address] Aug, [facility] [address] [id number] [address] [place] [address], [place] [address] Aug, [facility] [address] [id number] [address] [place] [address], [place] [address] Aug, [facility] [address] [id number] [address] [place] [address], [place] [address] Aug, [facility] [address] [id number] [address] [place] [address], [place] [address] Aug, [facility] [address] [id number] [address] [place] [address], [place] [address] Aug, [facility] [address] [id number] [address] [place] [address], [place] [address] Jul, [facility] [address] [id number] [address] [place] [address], [place] [address] Jul, [facility] [address] [id number] [address] [place] [address], [place] [address] Jul, [facility] [address] [id number] [address] [place] [address], [place] [address] Jul, [facility] [address] [id number] [address] [place] [address], [place] [address] Jul, [facility] [address] [id number] [address] [place] [address], [place] [address] Jul, [facility] [address] [id number] [address] [place] [address], [place] [address] 17 Jul, 2011 [facility] [address] [id number] [address] [place] [address], [place] [address] Jul, [facility] [address] [id number] [address] [place] [address], [place] [address] Jul, [facility] [address] [id number] [address] [place] [address], [place] [address] Jul, [facility] [address] [id number] [address] [place] [address], [place] [address] Jun, [facility] [address] [id number] [address] [place] [address], [place] [address] Jun, [facility] [address] [id number] [address] [place] [address], [place] [address] Jun, [facility] [address] [id number] [address] [place] [address], [place] [address] Jun, [facility] [address] [id number] [address] [place] [address], [place] [address] 30 May, 2011 [facility] [address] [id number] [address] [place] [address] [address] 29 May, 2011 [facility] [address] [id number] [address] [place] [address], [place] [address] 22 May, 2011 [facility] [address] [id number] [address] [place] [address], [place] [address] 08 May, 2011 [facility] [address] [id number] [address] [place] [address], [place] [address] 31 Apr, 2011 [facility] [address] [id number] [address] [place] [address], [place] [address] 31 Apr, 2011 [facility] [address] [id number] [address] [place] [address], [place] [address] November, [facility] [address] [id number] [address] [place] [address], [place] [address] 18 Oct, 2010 [facility] [address] [id number] [address] [place] [address], [place] [address] 17 Aug, 2010 [facility] [address] [id number] [address] [place] [address], [place] [address] Jun, [facility] [address] [id number] [address] [place] [address], [place] [address] Jun, [facility] [address] [id number] [address] [place] [address], [place] [address] Jun, [facility] [address] [id number] [address] [place] [address], [place] [address] 03 Jun, 2010 [facility] [address] [id number] [address] [place] [address], [place] [address] 29 May, 2010 [facility] [address] [id number] [address] [place] [address], [place] [address] Apr, [facility] [address] [id number] [address] [place] [address], [place] [address] Oct, [facility] [address] [id number] [address] [place] [address], [place] [address] 13 Aug, 2009 [facility] [address] [id number] [address] [place] [address] Jul, [facility] [address] [id number] [address] [place] [address] Jun, [facility] [address] [id number] [address] [place] [address] 16 Jun, 2009 [facility] [address] [id number] [address] [place] [address] 14 Jun, 2009 [facility] [address] [id number] [address] [place] [address] Jun, [facility] [address] [id number] [address] [place] [id number] May, [facility] [address] [id number] [address] [place] [address] Apr, [facility] [address] [id number] [address] [place] [address] 15 Mar, 2009 [facility] [address] [id number] [address] [place] [address] 14 Mar, 2009 [facility] [address] [id number] [address] [place] [address] 11 Dec, 2008 IMMUNIZATIONS No Known Immunizations [...]
--- OUTSIDE RECORDS SUMMARY | 2019-09-01 05:47 | XMS REPORT ---
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 [address] [place] [address], [place] [id number] Sep, [facility] [address] [id number] [address] [place] [address], [place] [id number] Sep, [facility] [address] [id number] [address] [place] [address], [place] [phone] Sep, [facility] [address] [id number] [address] [place] [address], [place] [id number] Aug, [facility] [address] [id number] [address] [place] [address], [place] [phone] Aug, 2014 [facility] [address] [id number] [address] [place] [address], [place] [address] Aug, 2014 [facility] [address] [id number] [address] [place] [address], [place] [id number] Aug, 2014 [facility] [address] [id number] [address] [place] [address], [place] [id number] Aug, [facility] [address] [id number] [address] [place] [address], [place] [address] Aug, 2014 [facility] [address] [id number] [address] [place] [address], [place] [id number] Aug, 2014 [facility] [address] [id number] [address] [place] [address], [place] [phone] Aug, 2014 [facility] [address] [id number] [address] [place] [address], [place] [id number] Aug, 2014 [facility] [address] [id number] [address] [place] [address], [place] [id number] Aug, 2014 [facility] [address] [id number] [address] [place] [address], [place] [phone] Aug, 2014 [facility] [address] [id number] [address] [place] [address], [place] [id number] Aug, 2014 [facility] [address] [id number] [address] [place] [address], [place] [id number] Jul, [facility] [address] [id number] [address] [place] [address], [place] [id number] Jul, [facility] [address] [id number] [address] [place] [address], [place] [id number] Jun, [facility] [address] [id number] [address] [place] [address], [place] [address] Jun, [facility] [address] [id number] [address] [place] [address], [place] [address] Jun, [facility] [address] [id number] [address] [place] [address], [place] [address] Jun, [facility] [address] [id number] [address] [place] [address], [place] [address] Jun, [facility] [address] [id number] [address] [place] [address], [place] [address] Jun, [facility] [address] [id number] [address] [place] [address], [place] [id number] 19 Jun, 2014 [facility] [address] [id number] [address] [place] [address], [place] [address] Jun, [facility] [address] [id number] [address] [place] [address], [place] [address] Jun, [facility] [address] [id number] [address] [place] [address], [place] [address] Jun, [facility] [address] [id number] [address] [place] [address], [place] [address] Jun, [facility] [address] [id number] [address] [place] [address], [place] [address] Jun, [facility] [address] [id number] [address] [place] [address], [place] [address] Jun, [facility] [address] [id number] [address] [place] [address], [place] [address] Jun, [facility] [address] [id number] [address] [place] [address], [place] [address] Jun, [facility] [address] [id number] [address] [place] [address], [place] [address] Jun, [facility] [address] [id number] [address] [place] [address], [place] [address] Jun, [facility] [address] [id number] [address] [place] [address], [place] [address] Jun, [facility] [address] [id number] [address] [place] [address], [place] [address] Jun, [facility] [address] [id number] [address] [place] [address], [place] [address] Jun, [facility] [address] [id number] [address] [place] [address], [place] [address] Jun, [facility] [address] [id number] [address] [place] [address], [place] [address] May, [facility] [address] [id number] [address] [place] [address], [place] [address] May, [facility] [address] [id number] [address] [place] [address], [place] [address] May, [facility] [address] [id number] [address] [place] [address], [place] [address] May, [facility] [address] [id number] [address] [place] [address], [place] [address] Apr, [facility] [address] [id number] [address] [place] [address], [place] [address] Apr, [facility] [address] [id number] [address] [place] [address], [place] [address] Apr, [facility] [address] [id number] [address] [place] [address], [place] [address] Apr, [facility] [address] [id number] [address] [place] [address], [place] [address] Apr, [facility] [address] [id number] [address] [place] [address], [place] [address] Apr, [facility] [address] [id number] [address] [place] [address], [place] [address] Apr, [facility] [address] [id number] [address] [place] [address], [place] [address] Apr, [facility] [address] [id number] [address] [place] [address], [place] [address] Apr, [facility] [address] [id number] [address] [place] [address], [place] [address] Apr, [facility] [address] [id number] [address] [place] [address], [place] [address] Mar, [facility] [address] [id number] [address] [place] [address], [place] [address] 29 Mar, 2014 [facility] [address] [id number] [address] [place] [address], [place] [address] 29 Mar, 2014 [facility] [address] [id number] [address] [place] [address], [place] [address] Mar, 2013 [facility] [address] [id number] [facility] [place] [address] Mar, 2013 [facility] [address] [id number] [address] [place] [address], [place] [address] Mar, 2013 [facility] [address] [id number] [address] [place] [address], [place] [address] Mar, 2013 [facility] [address] [id number] [address] [place] [address], [place] [address] Mar, 2013 [facility] [address] [id number] [address] [place] [address], [place] [address] Mar, 2013 [facility] [address] [id number] [address] [place] [address], [place] [address] Mar, 2013 [facility] [address] [id number] [address] [place] [address], [place] [address] Mar, 2013 [facility] [address] [id number] [address] [place] [address], [place] [address] Mar, 2013 [facility] [address] [id number] [address] [place] [address], [place] [address] Feb, [facility] [address] [id number] [address] [place] [address], [place] [address] Feb, [facility] [address] [id number] [address] [place] [address], [place] [address] Jan, [facility] [address] [id number] [address] [place] [address], [place] [address] Jan, [facility] [address] [id number] [address] [place] [address], [place] [address] Jan, [facility] [address] [id number] [address] [place] [address], [place] [address] Jan, [facility] [address] [id number] [address] [place] [address], [place] [address] Dec, [facility] [address] [id number] [address] [place] [address], [place] [address] Dec, [facility] [address] [id number] [address] [place] [address], [place] [address] Dec, [facility] [address] [id number] [address] [place] [address], [place] [address] Dec, [facility] [address] [id number] [address] [place] [address], [place] [address] Dec, [facility] [address] [id number] [address] [place] [address], [place] [address] Dec, [facility] [address] [id number] [address] [place] [address], [place] [address] November, [facility] [address] [id number] [address] [place] [address], [place] [address] November, [facility] [address] [id number] [address] [place] [address], [place] [address] November, [facility] [address] [id number] [address] [place] [address], [place] [address] November, [facility] [address] [id number] [address] [place] [address], [place] [address] November, [facility] [address] [id number] [address] [place] [address], [place] [address] November, [address] [id number] November, [facility] [address] [id number] [address] [place] [address], [place] [address] November, [facility] [address] [id number] [address] [place] [address], [place] [address] November, [facility] [address] [id number] [address] [place] [address], [place] [address] November, [facility] [address] [id number] [address] [place] [address], [place] [address] November, [facility] [address] [id number] [address] [place] [address], [place] [address] November, [facility] [address] [id number] [address] [place] [address], [place] [address] Oct, [facility] [address] [id number] [address] [place] [address], [place] [address] Oct, [facility] [address] [id number] [address] [place] [address], [place] [address] Oct, [facility] [address] [id number] [address] [place] [address], [place] [address] Oct, [facility] [address] [id number] [address] [place] [address], [place] [address] Oct, [facility] [address] [id number] [address] [place] [address], [place] [address] Oct, [facility] [address] [id number] [address] [place] [address], [place] [address] Oct, [facility] [address] [id number] [address] [place] [address], [place] [address] Oct, [facility] [address] [id number] [address] [place] [address], [place] [address] Oct, [facility] [address] [id number] [address] [place] [address], [place] [address] Oct, [facility] [address] [id number] [address] [place] [address], [place] [address] Oct, [facility] [address] [id number] [address] [place] [address], [place] [address] Oct, [facility] [address] [id number] [address] [place] [address], [place] [address] Oct, [facility] [address] [id number] [address] [place] [address], [place] [address] Oct, [facility] [address] [id number] [address] [place] [address], [place] [address] Oct, [facility] [address] [id number] [address] [place] [address], [place] [address] Sep, [facility] [address] [id number] [address] [place] [address], [place] [address] Sep, [facility] [address] [id number] [address] [place] [address], [place] [address] Sep, [facility] [address] [id number] [address] [place] [address], [place] [address] Sep, [facility] [address] [id number] [address] [place] [address], [place] [address] Aug, [facility] [address] [id number] [address] [place] [address], [place] [address] Aug, [facility] [address] [id number] [address] [place] [address], [place] [address] Aug, [facility] [address] [id number] [address] [place] [address], [place] [address] Aug, [facility] [address] [id number] [address] [place] [address], [place] [address] Jul, [facility] [address] [id number] [address] [place] [address], [place] [address] Jul, [facility] [address] [id number] [address] [place] [address], [place] [address] Jul, [facility] [address] [id number] [address] [place] [address], [place] [address] Jul, [facility] [address] [id number] [address] [place] [address], [place] [address] Jul, [facility] [address] [id number] [address] [place] [address], [place] [address] Jul, [facility] [address] [id number] [address] [place] [address], [place] [address] Jul, [facility] [address] [id number] [address] [place] [address], [place] [address] 14 Jul, 2013 [facility] [address] [id number] [address] [place] [address], [place] [address] 14 Jul, 2013 [facility] [address] [id number] [address] [place] [address], [place] [address] 09 Jul, 2013 [facility] [address] [id number] [address] [place] [address], [place] [address] Jul, [facility] [address] [id number] [address] [place] [address], [place] [address] Jul, [facility] [address] [id number] [address] [place] [address], [place] [address] Jul, [facility] [address] [id number] [address] [place] [address], [place] [address] Jul, [facility] [address] [id number] [address] [place] [address], [place] [address] Jun, [facility] [address] [id number] [address] [place] [address], [place] [address] Jun, [facility] [address] [id number] [address] [place] [address], [place] [address] Jun, [facility] [address] [id number] [address] [place] [address], [place] [address] Jun, [facility] [address] [id number] [address] [place] [address], [place] [address] May, [facility] [address] [id number] [address] [place] [address], [place] [address] May, [facility] [address] [id number] [address] [place] [address], [place] [address] May, [facility] [address] [id number] [address] [place] [address], [place] [address] May, [facility] [address] [id number] [address] [place] [address], [place] [address] May, [facility] [address] [id number] [address] [place] [address], [place] [address] May, [facility] [address] [id number] [address] [place] [address], [place] [address] May, [facility] [address] [id number] [address] [place] [address], [place] [address] May, [facility] [address] [id number] [address] [place] [address], [place] [address] Apr, [facility] [address] [id number] [address] [place] [address], [place] [address] Apr, [facility] [address] [id number] [address] [place] [address], [place] [address] Apr, [facility] [address] [id number] [address] [place] [address], [place] [address] Apr, [facility] [address] [id number] [address] [place] [address], [place] [address] Apr, [facility] [address] [id number] [address] [place] [address], [place] [address] Apr, [facility] [address] [id number] [address] [place] [address], [place] [address] 30 Mar, 2013 [facility] [address] [id number] [address] [place] [address], [place] [address] 26 Mar, 2013 [facility] [address] [id number] [address] [place] [address], [place] [address] 20 Mar, 2013 [facility] [address] [id number] [address] [place] [address] [address] 17 Sep2012 [facility] [address] [id number] [address] [place] [address], [place] [address] 16 Mar, 2013 [facility] [address] [id number] [address] [place] [address], [place] [address] 05 Mar, 2013 [facility] [address] [id number] [address] [place] [address], [place] [address] Feb, [facility] [address] [id number] [address] [place] [address], [place] [address] Feb, [facility] [address] [id number] [address] [place] [address], [place] [address] Feb, [facility] [address] [id number] [address] [place] [address], [place] [address] Feb, [facility] [address] [id number] [address] [place] [address], [place] [address] Jan, [facility] [address] [id number] [address] [place] [address], [place] [address] Jan, [facility] [address] [id number] [address] [place] [address], [place] [address] Jan, [facility] [address] [id number] [address] [place] [address], [place] [address] Jan, [facility] [address] [id number] [address] [place] [address], [place] [address] Jan, [facility] [address] [id number] [address] [place] [address], [place] [address] Dec, [facility] [address] [id number] [address] [place] [address], [place] [address] Dec, [facility] [address] [id number] [address] [place] [address], [place] [address] Dec, [facility] [address] [id number] [address] [place] [address], [place] [address] November, [facility] [address] [id number] [address] [place] [address], [place] [address] November, [facility] [address] [id number] [address] [place] [address], [place] [address] November, [facility] [address] [id number] [address] [place] [address], [place] [address] Oct, [facility] [address] [id number] [address] [place] [address], [place] [address] 26 Oct, 2012 [facility] [address] [id number] [address] [place] [address], [place] [address] Oct, [facility] [address] [id number] [address] [place] [address], [place] [address] 25 Oct, 2012 [facility] [address] [id number] [address] [place] [address], [place] [address] 18 Oct, 2012 [facility] [address] [id number] [address] [place] [address], [place] [address] 17 Oct, 2012 [facility] [address] [id number] [address] [place] [address], [place] [address] 15 Oct, 2012 [facility] [address] [id number] [address] [place] [address], [place] [address] Sep, [facility] [address] [id number] [address] [place] [address], [place] [address] Sep, [facility] [address] [id number] [address] [place] [address], [place] [address] 06 Sep, 2012 [facility] [address] [id number] [address] [place] [address], [place] [address] 06 Sep, 2012 [facility] [address] [id number] [address] [place] [address], [place] [address] Aug, [facility] [address] [id number] [address] [place] [address], [place] [address] Aug, [facility] [address] [id number] [address] [place] [address], [place] [address] Aug, [facility] [address] [id number] [address] [place] [address], [place] [address] Aug, [facility] [address] [id number] [address] [place] [address], [place] [address] 18 Aug, 2012 [facility] [address] [id number] [address] [place] [address], [place] [address] Aug, [facility] [address] [id number] [address] [place] [address], [place] [address] Jul, [facility] [address] [id number] [address] [place] [address], [place] [address] Jul, [facility] [address] [id number] [address] [place] [address], [place] [address] Jul, [facility] [address] [id number] [address] [place] [address], [place] [address] Jul, [facility] [address] [id number] [address] [place] [address], [place] [address] Jul, [facility] [address] [id number] [address] [place] [address], [place] [address] Jul, [facility] [address] [id number] [address] [place] [address], [place] [address] Jun, [facility] [address] [id number] [address] [place] [address], [place] [address] Jun, [facility] [address] [id number] [address] [place] [address], [place] [address] Jun, [facility] [address] [id number] [address] [place] [address], [place] [address] Jun, [facility] [address] [id number] [address] [place] [address], [place] [address] Jun, [facility] [address] [id number] [address] [place] [address], [place] [address] Jun, [facility] [address] [id number] [address] [place] [address], [place] [address] May, [facility] [address] [id number] [address] [place] [address], [place] [address] May, [facility] [address] [id number] [address] [place] [address], [place] [address] May, [facility] [address] [id number] [address] [place] [address], [place] [address] May, [facility] [address] [id number] [address] [place] [address], [place] [address] May, [facility] [address] [id number] [address] [place] [address], [place] [address] May, [facility] [address] [id number] [address] [place] [address], [place] [address] May, [facility] [address] [id number] [address] [place] [address], [place] [address] May, [facility] [address] [id number] [address] [place] [address], [place] [address] May, [facility] [address] [id number] [address] [place] [address], [place] [address] May, [facility] [address] [id number] [address] [place] [address], [place] [address] Apr, [facility] [address] [id number] [address] [place] [address], [place] [address] 31 Apr, 2012 [facility] [address] [id number] [address] [place] [address], [place] [address] Apr, [facility] [address] [id number] [address] [place] [address], [place] [id number] 23 Apr, 2012 [facility] [address] [id number] [address] [place] [address], [place] [address] 16 Apr, 2012 [facility] [address] [id number] [address] [place] [id number] 16 Apr, 2012 [facility] [address] [id number] [address] [place] [address], [place] [address] 15 Apr, 2012 [facility] [address] [id number] [address] [place] [address], [place] [address] 15 Apr, 2012 [facility] [address] [id number] [address] [place] [address], [place] [address] Apr, [facility] [address] [id number] [address] [place] [address], [place] [address] 28 Mar, 2012 [facility] [address] [id number] [address] [place] [address], [place] [id number] 26 Mar, 2012 [facility] [address] [id number] [address] [place] [address], [place] [address] 25 Mar, 2012 [facility] [address] [id number] [address] [place] [address], [place] [address] 19 Mar, 2012 [facility] [address] [id number] [address] [place] [address], [place] [address] 18 Mar, 2012 [facility] [address] [id number] [address] [place] [address], [place] [address] Mar, [facility] [address] [id number] [address] [place] [address], [place] [address] Feb, [facility] [address] [id number] [address] [place] [address], [place] [address] Feb, [facility] [address] [id number] [address] [place] [address], [place] [address] Feb, [facility] [address] [id number] [address] [place] [address], [place] [address] Jan, [facility] [address] [id number] [address] [place] [address], [place] [address] Jan, [facility] [address] [id number] [address] [place] [address], [place] [address] Jan, [facility] [address] [id number] [address] [place] [address], [place] [address] Jan, [facility] [address] [id number] [address] [place] [address], [place] [address] Dec, [facility] [address] [id number] [address] [place] [address], [place] [address] November, [facility] [address] [id number] [address] [place] [address], [place] [address] November, [facility] [address] [id number] [address] [place] [address], [place] [address] November, [facility] [address] [id number] [address] [place] [address], [place] [address] November, [facility] [address] [id number] [address] [place] [address], [place] [address] November, [facility] [address] [id number] [address] [place] [address], [place] [address] November, [facility] [address] [id number] [address] [place] [address], [place] [address] Oct, [facility] [address] [id number] [address] [place] [address], [place] [address] Oct, [facility] [address] [id number] [address] [place] [address], [place] [address] Sep, [facility] [address] [id number] [address] [place] [address], [place] [address] Sep, [facility] [address] [id number] [address] [place] [address], [place] [address] Sep, [facility] [address] [id number] [address] [place] [address], [place] [address] Aug, [facility] [address] [id number] [address] [place] [address], [place] [address] Aug, [facility] [address] [id number] [address] [place] [address], [place] [address] Aug, [facility] [address] [id number] [address] [place] [address], [place] [address] Aug, [facility] [address] [id number] [address] [place] [address], [place] [address] Aug, [facility] [address] [id number] [address] [place] [address], [place] [address] Aug, [facility] [address] [id number] [address] [place] [address], [place] [address] Jul, [facility] [address] [id number] [address] [place] [address], [place] [address] Jul, [facility] [address] [id number] [address] [place] [address], [place] [address] Jul, [facility] [address] [id number] [address] [place] [address], [place] [address] Jul, [facility] [address] [id number] [address] [place] [address], [place] [address] Jul, [facility] [address] [id number] [address] [place] [address], [place] [address] Jul, [facility] [address] [id number] [address] [place] [address], [place] [address] 17 Jul, 2011 [facility] [address] [id number] [address] [place] [address], [place] [address] Jul, [facility] [address] [address] [id number] [address] [place] [address], [place] [id number] Jul, [facility] [address] [id number] [address] [place] [address], [place] [id number] Jul, [facility] [address] [id number] [address] [place] [address], [place] [id number] Jun, [facility] [address] [id number] [address] [place] [address], [place] [id number] Jun, [facility] [address] [id number] [address] [place] [address], [place] [id number] Jun, [facility] [address] [id number] [address] [place] [address], [place] [address] Jun, [facility] [address] [id number] [address] [place] [address], [place] [id number] 30 May, 2011 [facility] [address] [id number] [address] [place] [address] [address] 29 May, 2011 [facility] [address] [id number] [address] [place] [address], [place] [id number] 22 May, 2011 [facility] [address] [id number] [address] [place] [address], [place] [id number] 08 May, 2011 [facility] [address] [id number] [address] [place] [address], [place] [id number] 31 Apr, 2011 [facility] [address] [id number] [address] [place] [address], [place] [id number] 31 Apr, 2011 [facility] [address] [id number] [address] [place] [address], [place] [id number] November, [facility] [address] [id number] [address] [place] [address], [place] [id number] 18 Oct, 2010 [facility] [address] [id number] [address] [place] [address], [place] [id number] 17 Aug, 2010 [facility] [address] [id number] [address] [place] [address], [place] [address] Jun, [facility] [address] [id number] [address] [place] [address], [place] [address] Jun, [facility] [address] [id number] [address] [place] [address], [place] [id number] Jun, [facility] [address] [id number] [address] [place] [address], [place] [id number] 03 Jun, 2010 [facility] [address] [id number] [address] [place] [address], [place] [address] 29 May, 2010 [facility] [address] [id number] [address] [place] [address], [place] [id number] Apr, [facility] [address] [id number] [address] [place] [address], [place] [id number] Oct, [facility] [address] [id number] [address] [place] [address], [place] [id number] 13 Aug, 2009 [facility] [address] [id number] [address] [id number] Jul, [facility] [place] [address] [id number] [address] [place] [id number] Jun, [facility] [place] [address] [id number] [address] [place] [id number] 16 Jun, 2009 [facility] [place] [address] [id number] [address] [place] [id number] 14 Jun, 2009 [facility] [place] [address] [id number] [address] [place] [id number] Jun, [facility] [place] [address] [id number] [address] [place] [id number] May, [facility] [place] [address] [id number] [address] [place] [phone] Apr, [facility] [place] [address] [id number] [address] [place] [id number] 15 Mar, 2009 [facility] [place] [address] [id number] [address] [place] [phone] 14 Mar, 2009 [facility] [place] [address] [id number] [address] [place] [id number] 11 Dec, 2008 IMMUNIZATIONS No Known Immunizations [...]
--- OUTSIDE RECORDS SUMMARY | 2019-09-01 05:47 | XMS REPORT ---
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 [address] [place] [address], [place] [address] 19 Jun, 2014 [facility] [address] [id number] [address] [place] [address], [place] [address] Jun, [facility] [address] [id number] [address] [place] [address], [place] [address] Jun, [facility] [address] [id number] [address] [place] [address], [place] [address] Jun, [facility] [address] [id number] [address] [place] [address], [place] [address] Jun, [facility] [address] [id number] [address] [place] [address], [place] [address] Jun, [facility] [address] [id number] [address] [place] [address], [place] [address] Jun, [facility] [address] [id number] [address] [place] [address], [place] [address] Jun, [facility] [address] [id number] [address] [place] [address], [place] [address] Jun, [facility] [address] [id number] [address] [place] [address], [place] [address] Jun, [facility] [address] [id number] [address] [place] [address], [place] [address] Jun, [facility] [address] [id number] [address] [place] [address], [place] [address] Jun, [facility] [address] [id number] [address] [place] [address], [place] [address] Jun, [facility] [address] [id number] [address] [place] [address], [place] [address] Jun, [facility] [address] [id number] [address] [place] [address], [place] [address] Jun, [facility] [address] [id number] [address] [place] [address], [place] [address] May, [facility] [address] [id number] [address] [place] [address], [place] [address] May, [facility] [address] [id number] [address] [place] [address], [place] [address] May, [facility] [address] [id number] [address] [place] [address], [place] [address] May, [facility] [address] [id number] [address] [place] [address], [place] [address] Apr, [facility] [address] [id number] [address] [place] [address], [place] [address] Apr, [facility] [address] [id number] [address] [place] [address], [place] [address] Apr, [facility] [address] [id number] [address] [place] [address], [place] [address] Apr, [facility] [address] [id number] [address] [place] [address], [place] [address] Apr, [facility] [address] [id number] [address] [place] [address], [place] [address] Apr, [facility] [address] [id number] [address] [place] [address], [place] [address] Apr, [facility] [address] [id number] [address] [place] [address], [place] [address] Apr, [facility] [address] [id number] [address] [place] [address], [place] [address] Apr, [facility] [address] [id number] [address] [place] [address], [place] [address] Apr, [facility] [address] [id number] [address] [place] [address], [place] [address] Mar, [facility] [address] [id number] [address] [place] [address], [place] [address] 29 Mar, 2014 [facility] [address] [id number] [address] [place] [address], [place] [address] 29 Mar, 2014 [facility] [address] [id number] [address] [place] [address], [place] [address] Mar, 2013 [facility] [address] [id number] [facility] [place] [address] Mar, 2013 [facility] [address] [id number] [address] [place] [address], [place] [address] Mar, 2013 [facility] [address] [id number] [address] [place] [address], [place] [address] Mar, 2013 [facility] [address] [id number] [address] [place] [address], [place] [address] Mar, 2013 [facility] [address] [id number] [address] [place] [address], [place] [address] Mar, 2013 [facility] [address] [id number] [address] [place] [address], [place] [address] Mar, 2013 [facility] [address] [id number] [address] [place] [address], [place] [address] Mar, 2013 [facility] [address] [id number] [address] [place] [address], [place] [address] Mar, 2013 [facility] [address] [id number] [address] [place] [address], [place] [address] Feb, [facility] [address] [id number] [address] [place] [address], [place] [address] Feb, [facility] [address] [id number] [address] [place] [address], [place] [address] Jan, [facility] [address] [id number] [address] [place] [address], [place] [address] Jan, [facility] [address] [id number] [address] [place] [address], [place] [address] Jan, [facility] [address] [id number] [address] [place] [address], [place] [address] Jan, [facility] [address] [id number] [address] [place] [address], [place] [address] Dec, [facility] [address] [id number] [address] [place] [address], [place] [address] Dec, [facility] [address] [id number] [address] [place] [address], [place] [address] Dec, [facility] [address] [id number] [address] [place] [address], [place] [address] Dec, [facility] [address] [id number] [address] [place] [address], [place] [address] Dec, [facility] [address] [id number] [address] [place] [address], [place] [address] Dec, [facility] [address] [id number] [address] [place] [address], [place] [address] November, [facility] [address] [id number] [address] [place] [address], [place] [address] November, [facility] [address] [id number] [address] [place] [address], [place] [address] November, [facility] [address] [id number] [address] [place] [address], [place] [address] November, [facility] [address] [id number] [address] [place] [address], [place] [address] November, [facility] [address] [id number] [address] [place] [address], [place] [address] November, [address] [id number] November, [facility] [address] [id number] [address] [place] [address], [place] [address] November, [facility] [address] [id number] [address] [place] [address], [place] [address] November, [facility] [address] [id number] [address] [place] [address], [place] [address] November, [facility] [address] [id number] [address] [place] [address], [place] [address] November, [facility] [address] [id number] [address] [place] [address], [place] [address] November, [facility] [address] [id number] [address] [place] [address], [place] [address] Oct, [facility] [address] [id number] [address] [place] [address], [place] [address] Oct, [facility] [address] [id number] [address] [place] [address], [place] [address] Oct, [facility] [address] [id number] [address] [place] [address], [place] [address] Oct, [facility] [address] [id number] [address] [place] [address], [place] [address] Oct, [facility] [address] [id number] [address] [place] [address], [place] [address] Oct, [facility] [address] [id number] [address] [place] [address], [place] [address] Oct, [facility] [address] [id number] [address] [place] [address], [place] [address] Oct, [facility] [address] [id number] [address] [place] [address], [place] [address] Oct, [facility] [address] [id number] [address] [place] [address], [place] [address] Oct, [facility] [address] [id number] [address] [place] [address], [place] [address] Oct, [facility] [address] [id number] [address] [place] [address], [place] [address] Oct, [facility] [address] [id number] [address] [place] [address], [place] [address] Oct, [facility] [address] [id number] [address] [place] [address], [place] [address] Oct, [facility] [address] [id number] [address] [place] [address], [place] [address] Oct, [facility] [address] [id number] [address] [place] [address], [place] [address] Sep, [facility] [address] [id number] [address] [place] [address], [place] [address] Sep, [facility] [address] [id number] [address] [place] [address], [place] [address] Sep, [facility] [address] [id number] [address] [place] [address], [place] [address] Sep, [facility] [address] [id number] [address] [place] [address], [place] [address] Aug, [facility] [address] [id number] [address] [place] [address], [place] [address] Aug, [facility] [address] [id number] [address] [place] [address], [place] [address] Aug, [facility] [address] [id number] [address] [place] [address], [place] [address] Aug, [facility] [address] [id number] [address] [place] [address], [place] [address] Jul, [facility] [address] [id number] [address] [place] [address], [place] [address] Jul, [facility] [address] [id number] [address] [place] [address], [place] [address] Jul, [facility] [address] [id number] [address] [place] [address], [place] [address] Jul, [facility] [address] [id number] [address] [place] [address], [place] [address] Jul, [facility] [address] [id number] [address] [place] [address], [place] [address] Jul, [facility] [address] [id number] [address] [place] [address], [place] [address] Jul, [facility] [address] [id number] [address] [place] [address], [place] [address] 14 Jul, 2013 [facility] [address] [id number] [address] [place] [address], [place] [address] 14 Jul, 2013 [facility] [address] [id number] [address] [place] [address], [place] [address] 09 Jul, 2013 [facility] [address] [id number] [address] [place] [address], [place] [address] Jul, [facility] [address] [id number] [address] [place] [address], [place] [address] Jul, [facility] [address] [id number] [address] [place] [address], [place] [address] Jul, [facility] [address] [id number] [address] [place] [address], [place] [address] Jul, [facility] [address] [id number] [address] [place] [address], [place] [address] Jun, [facility] [address] [id number] [address] [place] [address], [place] [address] Jun, [facility] [address] [id number] [address] [place] [address], [place] [address] Jun, [facility] [address] [id number] [address] [place] [address], [place] [address] Jun, [facility] [address] [id number] [address] [place] [address], [place] [address] May, [facility] [address] [id number] [address] [place] [address], [place] [address] May, [facility] [address] [id number] [address] [place] [address], [place] [address] May, [facility] [address] [id number] [address] [place] [address], [place] [address] May, [facility] [address] [id number] [address] [place] [address], [place] [address] May, [facility] [address] [id number] [address] [place] [address], [place] [address] May, [facility] [address] [id number] [address] [place] [address], [place] [address] May, [facility] [address] [id number] [address] [place] [address], [place] [address] May, [facility] [address] [id number] [address] [place] [address], [place] [address] Apr, [facility] [address] [id number] [address] [place] [address], [place] [address] Apr, [facility] [address] [id number] [address] [place] [address], [place] [address] Apr, [facility] [address] [id number] [address] [place] [address], [place] [address] Apr, [facility] [address] [id number] [address] [place] [address], [place] [address] Apr, [facility] [address] [id number] [address] [place] [address], [place] [address] Apr, [facility] [address] [id number] [address] [place] [address], [place] [address] 30 Mar, 2013 [facility] [address] [id number] [address] [place] [address], [place] [address] 26 Mar, 2013 [facility] [address] [id number] [address] [place] [address], [place] [address] 20 Mar, 2013 [facility] [address] [id number] [address] [place] [address] [address] 17 Sep2012 [facility] [address] [id number] [address] [place] [address], [place] [address] 16 Mar, 2013 [facility] [address] [id number] [address] [place] [address], [place] [address] 05 Mar, 2013 [facility] [address] [id number] [address] [place] [address], [place] [address] Feb, [facility] [address] [id number] [address] [place] [address], [place] [address] Feb, [facility] [address] [id number] [address] [place] [address], [place] [address] Feb, [facility] [address] [id number] [address] [place] [address], [place] [address] Feb, [facility] [address] [id number] [address] [place] [address], [place] [address] Jan, [facility] [address] [id number] [address] [place] [address], [place] [address] Jan, [facility] [address] [id number] [address] [place] [address], [place] [address] Jan, [facility] [address] [id number] [address] [place] [address], [place] [address] Jan, [facility] [address] [id number] [address] [place] [address], [place] [address] Jan, [facility] [address] [id number] [address] [place] [address], [place] [address] Dec, [facility] [address] [id number] [address] [place] [address], [place] [address] Dec, [facility] [address] [id number] [address] [place] [address], [place] [address] Dec, [facility] [address] [id number] [address] [place] [address], [place] [address] November, [facility] [address] [id number] [address] [place] [address], [place] [address] November, [facility] [address] [id number] [address] [place] [address], [place] [address] November, [facility] [address] [id number] [address] [place] [address], [place] [address] Oct, [facility] [address] [id number] [address] [place] [address], [place] [address] 26 Oct, 2012 [facility] [address] [id number] [address] [place] [address], [place] [address] Oct, [facility] [address] [id number] [address] [place] [address], [place] [address] 25 Oct, 2012 [facility] [address] [id number] [address] [place] [address], [place] [address] 18 Oct, 2012 [facility] [address] [id number] [address] [place] [address], [place] [address] 17 Oct, 2012 [facility] [address] [id number] [address] [place] [address], [place] [address] 15 Oct, 2012 [facility] [address] [id number] [address] [place] [address], [place] [address] Sep, [facility] [address] [id number] [address] [place] [address], [place] [address] Sep, [facility] [address] [id number] [address] [place] [address], [place] [address] 06 Sep, 2012 [facility] [address] [id number] [address] [place] [address], [place] [address] 06 Sep, 2012 [facility] [address] [id number] [address] [place] [address], [place] [address] Aug, [facility] [address] [id number] [address] [place] [address], [place] [address] Aug, [facility] [address] [id number] [address] [place] [address], [place] [address] Aug, [facility] [address] [id number] [address] [place] [address], [place] [address] Aug, [facility] [address] [id number] [address] [place] [address], [place] [address] 18 Aug, 2012 [facility] [address] [id number] [address] [place] [address], [place] [address] Aug, [facility] [address] [id number] [address] [place] [address], [place] [address] Jul, [facility] [address] [id number] [address] [place] [address], [place] [address] Jul, [facility] [address] [id number] [address] [place] [address], [place] [address] Jul, [facility] [address] [id number] [address] [place] [address], [place] [address] Jul, [facility] [address] [id number] [address] [place] [address], [place] [address] Jul, [facility] [address] [id number] [address] [place] [address], [place] [address] Jul, [facility] [address] [id number] [address] [place] [address], [place] [address] Jun, [facility] [address] [id number] [address] [place] [address], [place] [address] Jun, [facility] [address] [id number] [address] [place] [address], [place] [address] Jun, [facility] [address] [id number] [address] [place] [address], [place] [address] Jun, [facility] [address] [id number] [address] [place] [address], [place] [address] Jun, [facility] [address] [id number] [address] [place] [address], [place] [address] Jun, [facility] [address] [id number] [address] [place] [address], [place] [address] May, [facility] [address] [id number] [address] [place] [address], [place] [address] May, [facility] [address] [id number] [address] [place] [address], [place] [address] May, [facility] [address] [id number] [address] [place] [address], [place] [address] May, [facility] [address] [id number] [address] [place] [address], [place] [address] May, [facility] [address] [id number] [address] [place] [address], [place] [address] May, [facility] [address] [id number] [address] [place] [address], [place] [address] May, [facility] [address] [id number] [address] [place] [address], [place] [address] May, [facility] [address] [id number] [address] [place] [address], [place] [address] May, [facility] [address] [id number] [address] [place] [address], [place] [address] May, [facility] [address] [id number] [address] [place] [address], [place] [address] Apr, [facility] [address] [id number] [address] [place] [address], [place] [address] 31 Apr, 2012 [facility] [address] [id number] [address] [place] [address], [place] [address] Apr, [facility] [address] [id number] [address] [place] [address], [place] [address] 23 Apr, 2012 [facility] [address] [id number] [address] [place] [address], [place] [address] 16 Apr, 2012 [facility] [address] [id number] [address] [place] [address] 16 Apr, 2012 [facility] [address] [id number] [address] [place] [address], [place] [address] 15 Apr, 2012 [facility] [address] [id number] [address] [place] [address], [place] [address] 15 Apr, 2012 [facility] [address] [id number] [address] [place] [address], [place] [address] Apr, [facility] [address] [id number] [address] [place] [address], [place] [address] 28 Mar, 2012 [facility] [address] [id number] [address] [place] [address], [place] [address] 26 Mar, 2012 [facility] [address] [id number] [address] [place] [address], [place] [address] 25 Mar, 2012 [facility] [address] [id number] [address] [place] [address], [place] [address] 19 Mar, 2012 [facility] [address] [id number] [address] [place] [address], [place] [address] 18 Mar, 2012 [facility] [address] [id number] [address] [place] [address], [place] [address] Mar, [facility] [address] [id number] [address] [place] [address], [place] [address] Feb, [facility] [address] [id number] [address] [place] [address], [place] [address] Feb, [facility] [address] [id number] [address] [place] [address], [place] [address] Feb, [facility] [address] [id number] [address] [place] [address], [place] [address] Jan, [facility] [address] [id number] [address] [place] [address], [place] [address] Jan, [facility] [address] [id number] [address] [place] [address], [place] [address] Jan, [facility] [address] [id number] [address] [place] [address], [place] [address] Jan, [facility] [address] [id number] [address] [place] [address], [place] [address] Dec, [facility] [address] [id number] [address] [place] [address], [place] [address] November, [facility] [address] [id number] [address] [place] [address], [place] [address] November, [facility] [address] [id number] [address] [place] [address], [place] [address] November, [facility] [address] [id number] [address] [place] [address], [place] [address] November, [facility] [address] [id number] [address] [place] [address], [place] [address] November, [facility] [address] [id number] [address] [place] [address], [place] [address] November, [facility] [address] [id number] [address] [place] [address], [place] [address] Oct, [facility] [address] [id number] [address] [place] [address], [place] [address] Oct, [facility] [address] [id number] [address] [place] [address], [place] [address] Sep, [facility] [address] [id number] [address] [place] [address], [place] [address] Sep, [facility] [address] [id number] [address] [place] [address], [place] [address] Sep, [facility] [address] [id number] [address] [place] [address], [place] [address] Aug, [facility] [address] [id number] [address] [place] [address], [place] [address] Aug, [facility] [address] [id number] [address] [place] [address], [place] [address] Aug, [facility] [address] [id number] [address] [place] [address], [place] [address] Aug, [facility] [address] [id number] [address] [place] [address], [place] [address] Aug, [facility] [address] [id number] [address] [place] [address], [place] [address] Aug, [facility] [address] [id number] [address] [place] [address], [place] [address] Jul, [facility] [address] [id number] [address] [place] [address], [place] [address] Jul, [facility] [address] [id number] [address] [place] [address], [place] [address] Jul, [facility] [address] [id number] [address] [place] [address], [place] [address] Jul, [facility] [address] [id number] [address] [place] [address], [place] [address] Jul, [facility] [address] [id number] [address] [place] [address], [place] [address] Jul, [facility] [address] [id number] [address] [place] [address], [place] [address] 17 Jul, 2011 [facility] [address] [id number] [address] [place] [address], [place] [address] Jul, [facility] [address] [id number] [address] [place] [address], [place] [address] Jul, [facility] [address] [id number] [address] [place] [address], [place] [address] Jul, [facility] [address] [id number] [address] [place] [address], [place] [address] Jun, [facility] [address] [id number] [address] [place] [address], [place] [address] Jun, [facility] [address] [id number] [address] [place] [address], [place] [address] Jun, [facility] [address] [id number] [address] [place] [address], [place] [address] Jun, [facility] [address] [id number] [address] [place] [address], [place] [address] 30 May, 2011 [facility] [address] [id number] [address] [place] [address] [address] 29 May, 2011 [facility] [address] [id number] [address] [place] [address], [place] [address] 22 May, 2011 [facility] [address] [id number] [address] [place] [address], [place] [address] 08 May, 2011 [facility] [address] [id number] [address] [place] [address], [place] [address] 31 Apr, 2011 [facility] [address] [id number] [address] [place] [address], [place] [address] 31 Apr, 2011 [facility] [address] [id number] [address] [place] [address], [place] [address] November, [facility] [address] [id number] [address] [place] [address], [place] [address] 18 Oct, 2010 [facility] [address] [id number] [address] [place] [address], [place] [address] 17 Aug, 2010 [facility] [address] [id number] [address] [place] [address], [place] [address] Jun, [facility] [address] [id number] [address] [place] [address], [place] [address] Jun, [facility] [address] [id number] [address] [place] [address], [place] [address] Jun, [facility] [address] [id number] [address] [place] [address], [place] [address] 03 Jun, 2010 [facility] [address] [id number] [address] [place] [address], [place] [address] 29 May, 2010 [facility] [address] [id number] [address] [place] [address], [place] [address] Apr, [facility] [address] [id number] [address] [place] [address], [place] [address] Oct, [facility] [address] [id number] [address] [place] [address], [place] [address] 13 Aug, 2009 [facility] [address] [id number] [address] [place] [address] Jul, [facility] [address] [id number] [address] [place] [address] Jun, [facility] [address] [id number] [address] [place] [id number] 16 Jun, 2009 [facility] [address] [id number] [address] [place] [id number] 14 Jun, 2009 [facility] [address] [id number] [address] [place] [address] Jun, [facility] [address] [id number] [address] [place] [id number] May, [facility] [address] [id number] [address] [place] [address] Apr, [facility] [address] [id number] [address] [place] [id number] 15 Mar, 2009 [facility] [address] [id number] [address] [place] [id number] 14 Mar, 2009 [facility] [address] [id number] [address] [place] [id number] 11 Dec, 2008 IMMUNIZATIONS No Known Immunizations [...]
--- OUTSIDE RECORDS SUMMARY | 2019-09-01 05:48 | XMS REPORT ---
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 [address], [place] [address] Apr, [facility] [address] [id number] [address] [place] [id number] Apr, [facility] [address] [id number] [address] [place] [address], [place] [address] 30 Apr, 2014 [facility] [address] [id number] [address] [place] [address], [place] [address] Apr, [facility] [address] [id number] [address] [place] [address], [place] [address] 29 Apr, 2014 [facility] [address] [id number] [address] [place] [address], [place] [address] 29 Apr, 2013 [facility] [address] [id number] [address] [place] [address], [place] [address] Apr, [facility] [address] [id number] [address] [place] [address], [place] [address] Apr, 2013 [facility] [address] [id number] [address] [place] [address], [place] [address] Apr, 2013 [facility] [address] [id number] [address] [place] [address], [place] [address] Apr, [facility] [address] [id number] [address] [place] [address], [place] [address] 29 Mar, 2013 [facility] [address] [id number] [address] [place] [address], [place] [address] 29 Sep, 2013 [facility] [address] [id number] [address] [place] [address], [place] [address] 29 Mar, 2013 [facility] [address] [id number] [address] [place] [address], [place] [address] 29 Sep, 2013 [facility] [address] [id number] [address] [place] [address], [place] [address] 10 Mar, 2013 [facility] [address] [id number] [address] [place] [address], [place] [address] 10 Mar, 2013 [facility] [address] [id number] [address] [place] [address], [place] [address] 04 Sep, 2013 [facility] [address] [id number] [address] [place] [address], [place] [address] 04 Sep, 2013 [facility] [address] [id number] [address] [place] [address], [place] [address] 02 Sep, 2013 [facility] [address] [id number] [address] [place] [address], [place] [address] 02 Sep, 2013 [facility] [address] [id number] [address] [place] [address], [place] [address] Mar, [facility] [address] [id number] [address] [place] [address], [place] [address] Mar, [facility] [address] [id number] [address] [place] [address], [place] [address] Feb, [facility] [address] [id number] [address] [place] [address], [place] [address] Feb, [facility] [address] [id number] [address] [place] [address], [place] [address] Jan, [facility] [address] [id number] [address] [place] [address], [place] [address] Jan, [facility] [address] [id number] [address] [place] [address], [place] [address] Jan, [facility] [address] [id number] [address] [place] [address], [place] [address] Jan, [facility] [address] [id number] [address] [place] [address], [place] [address] Dec, [facility] [address] [id number] [address] [place] [address], [place] [address] Dec, [facility] [address] [id number] [address] [place] [address], [place] [address] Dec, [facility] [address] [id number] [address] [place] [address], [place] [address] Dec, [facility] [address] [id number] [address] [place] [address], [place] [address] Dec, [facility] [address] [id number] [address] [place] [address], [place] [address] Dec, [facility] [address] [id number] [address] [place] [address], [place] [address] November, [facility] [address] [id number] [address] [place] [address], [place] [address] November, [facility] [address] [id number] [address] [place] [address], [place] [address] November, [facility] [address] [id number] [address] [place] [address], [place] [address] November, [facility] [address] [id number] [address] [place] [address], [place] [address] November, [facility] [address] [id number] [address] [place] [address], [place] [address] November, [facility] [address] [place] [id number] November, [facility] [address] [id number] [address] [place] [address], [place] [address] November, [facility] [address] [id number] [address] [place] [address], [place] [address] November, [facility] [address] [id number] [address] [place] [address], [place] [address] November, [facility] [address] [id number] [address] [place] [address], [place] [address] November, [facility] [address] [id number] [address] [place] [address], [place] [address] November, [facility] [address] [id number] [address] [place] [address], [place] [address] Oct, [facility] [address] [id number] [address] [place] [address], [place] [address] Oct, [facility] [address] [id number] [address] [place] [address], [place] [address] Oct, [facility] [address] [id number] [address] [place] [address], [place] [address] Oct, [facility] [address] [id number] [address] [place] [address], [place] [address] Oct, [facility] [address] [id number] [address] [place] [address], [place] [address] Oct, [facility] [address] [id number] [facility] [address] Oct, [facility] [address] [id number] [facility] [place] [address] Oct, [facility] [address] [id number] [facility] [place] [address] Oct, [facility] [address] [id number] [address] [place] [address], [place] [address] Oct, [facility] [address] [id number] [address] [place] [address], [place] [address] Oct, [facility] [address] [id number] [address] [place] [address], [place] [address] Oct, [facility] [address] [id number] [address] [place] [address], [place] [address] Oct, [facility] [address] [id number] [address] [place] [address], [place] [address] Oct, [facility] [address] [id number] [address] [place] [address], [place] [address] Oct, [facility] [address] [id number] [address] [place] [address], [place] [address] Sep, [facility] [address] [id number] [address] [place] [address], [place] [address] Sep, [facility] [address] [id number] [address] [place] [address], [place] [address] Sep, [facility] [address] [id number] [address] [place] [address], [place] [address] Sep, [facility] [address] [id number] [address] [place] [address], [place] [address] Aug, [facility] [address] [id number] [address] [place] [address], [place] [address] Aug, [facility] [address] [id number] [address] [place] [address], [place] [address] Aug, [facility] [address] [id number] [address] [place] [address], [place] [address] Aug, [facility] [address] [id number] [address] [place] [address], [place] [address] Jul, [facility] [address] [id number] [address] [place] [address], [place] [address] Jul, [facility] [address] [id number] [address] [place] [address], [place] [address] Jul, [facility] [address] [id number] [address] [place] [address], [place] [address] Jul, [facility] [address] [id number] [address] [place] [address], [place] [address] Jul, [facility] [address] [id number] [address] [place] [address], [place] [address] Jul, [facility] [address] [id number] [address] [place] [address], [place] [address] Jul, [facility] [address] [id number] [address] [place] [address], [place] [address] Jul, [facility] [address] [id number] [address] [place] [address], [place] [address] Jul, [facility] [address] [id number] [address] [place] [address], [place] [address] Jul, [facility] [address] [id number] [address] [place] [address], [place] [address] Jul, [facility] [address] [id number] [address] [place] [address], [place] [address] Jul, [facility] [address] [id number] [address] [place] [address], [place] [address] Jul, [facility] [address] [id number] [address] [place] [address], [place] [address] Jul, [facility] [address] [id number] [address] [place] [address], [place] [address] Jun, [facility] [address] [id number] [address] [place] [address], [place] [address] Jun, [facility] [address] [id number] [address] [place] [id number] Jun, [facility] [address] [id number] [address] [place] [address], [place] [address] Jun, [facility] [address] [id number] [address] [place] [address], [place] [address] May, [facility] [address] [id number] [address] [place] [address], [place] [address] May, [facility] [address] [id number] [address] [place] [address], [place] [address] May, [facility] [address] [id number] [address] [place] [id number] May, [facility] [address] [id number] [address] [place] [address], [place] [address] May, [facility] [address] [id number] [address] [place] [address], [place] [address] May, [facility] [address] [id number] [address] [place] [id number] May, [facility] [address] [id number] [address] [place] [address], [place] [address] May, [facility] [address] [id number] [address] [place] [id number] Apr, [facility] [address] [id number] [address] [place] [id number] Apr, [facility] [address] [id number] [address] [place] [address], [place] [address] Apr, [facility] [address] [id number] [address] [place] [id number] Apr, [facility] [address] [id number] [address] [place] [address], [place] [address] Apr, [facility] [address] [id number] [address] [place] [address], [place] [address] Apr, [facility] [address] [id number] [address] [place] [address], [place] [address] 30 Mar, 2013 [facility] [address] [id number] [address] [place] [address], [place] [address] 26 Mar, 2013 [facility] [address] [id number] [address] [place] [address], [place] [address] 20 Mar, 2013 [facility] [address] [id number] [address] [place] [address], [place] [address] 17 Mar, 2013 [facility] [address] [id number] [address] [place] [address], [place] [address] 16 Mar, 2013 [facility] [address] [id number] [address] [place] [address], [place] [address] 05 Mar, 2013 [facility] [address] [id number] [address] [place] [address], [place] [address] Feb, [facility] [address] [id number] [address] [place] [address], [place] [address] Feb, [facility] [address] [id number] [address] [place] [address], [place] [address] Feb, [facility] [address] [id number] [address] [place] [address], [place] [address] Feb, [facility] [address] [id number] [address] [place] [address], [place] [address] Jan, [facility] [address] [id number] [address] [place] [address], [place] [address] Jan, [facility] [address] [id number] [address] [place] [address], [place] [address] Jan, [facility] [address] [id number] [address] [place] [address], [place] [address] Jan, [facility] [address] [id number] [address] [place] [address], [place] [address] Jan, [facility] [address] [id number] [address] [place] [address], [place] [address] Dec, [facility] [address] [id number] [address] [place] [address], [place] [address] Dec, [facility] [address] [id number] [address] [place] [address], [place] [address] Dec, [facility] [address] [id number] [address] [place] [address], [place] [address] November, [facility] [address] [id number] [address] [place] [address], [place] [address] November, [facility] [address] [id number] [address] [place] [address], [place] [address] November, [facility] [address] [id number] [address] [place] [address], [place] [address] Oct, [facility] [address] [id number] [address] [place] [address], [place] [address] Oct, [facility] [address] [id number] [address] [place] [address], [place] [address] Oct, [facility] [address] [id number] [address] [place] [address], [place] [address] Oct, [facility] [address] [id number] [address] [place] [address], [place] [address] 18 Oct, 2012 [facility] [address] [id number] [address] [place] [address], [place] [address] 17 Oct, 2012 [facility] [address] [id number] [address] [place] [address], [place] [address] 15 Oct, 2012 [facility] [address] [id number] [address] [place] [address], [place] [address] Sep, [facility] [address] [id number] [address] [place] [address], [place] [address] 13 Sep, 2012 [facility] [address] [id number] [address] [place] [address], [place] [address] Sep, [facility] [address] [id number] [address] [place] [address], [place] [address] Sep, [facility] [address] [id number] [address] [place] [address], [place] [address] Aug, [facility] [address] [id number] [address] [place] [address], [place] [address] Aug, [facility] [address] [id number] [address] [place] [address], [place] [address] Aug, [facility] [address] [id number] [address] [place] [address], [place] [address] Aug, [facility] [address] [id number] [address] [place] [address], [place] [address] Aug, [facility] [address] [id number] [address] [place] [address], [place] [address] Aug, [facility] [address] [id number] [address] [place] [address], [place] [address] Jul, [facility] [address] [id number] [address] [place] [address], [place] [address] Jul, [facility] [address] [id number] [address] [place] [address], [place] [address] Jul, [facility] [address] [id number] [address] [place] [address], [place] [address] Jul, [facility] [address] [id number] [address] [place] [address], [place] [address] Jul, [facility] [address] [id number] [address] [place] [address], [place] [address] Jul, [facility] [address] [id number] [address] [place] [address], [place] [address] Jun, [facility] [address] [id number] [facility] [address] Jun, [facility] [address] [id number] [address] [place] [address], [place] [address] Jun, [facility] [address] [id number] [address] [place] [address], [place] [address] Jun, [facility] [address] [id number] [address] [place] [address], [place] [address] Jun, [facility] [address] [id number] [address] [place] [address], [place] [address] Jun, [facility] [address] [id number] [address] [place] [address], [place] [address] May, [facility] [address] [id number] [address] [place] [address], [place] [address] May, [facility] [address] [id number] [address] [place] [address], [place] [address] May, [facility] [address] [id number] [address] [place] [address], [place] [address] May, [facility] [address] [id number] [address] [place] [address], [place] [address] May, [facility] [address] [id number] [address] [place] [address], [place] [address] May, [facility] [address] [id number] [address] [place] [address], [place] [address] May, [facility] [address] [id number] [address] [place] [address], [place] [address] May, [facility] [address] [id number] [address] [place] [address], [place] [address] May, [facility] [address] [id number] [address] [place] [address], [place] [address] May, [facility] [address] [id number] [address] [place] [address], [place] [address] 31 Apr, 2012 [facility] [address] [id number] [address] [place] [address], [place] [address] 31 Apr, 2012 [facility] [address] [id number] [address] [place] [address], [place] [address] 23 Apr, 2012 [facility] [address] [id number] [address] [place] [address], [place] [address] 23 Apr, 2012 [facility] [address] [id number] [address] [place] [address], [place] [address] 16 Apr, 2012 [facility] [address] [id number] [address] [place] [address], [place] [address] 16 Apr, 2012 [facility] [address] [id number] [address] [place] [address], [place] [address] 15 Apr, 2012 [facility] [address] [id number] [address] [place] [address], [place] [address] 15 Apr, 2012 [facility] [address] [id number] [address] [place] [address], [place] [address] 05 Apr, 2012 [facility] [address] [id number] [address] [place] [address], [place] [address] 28 Mar, 2012 [facility] [address] [id number] [address] [place] [address], [place] [address] 26 Mar, 2012 [facility] [address] [id number] [address] [place] [address], [place] [address] 25 Mar, 2011 [facility] [address] [id number] [address] [place] [address], [place] [address] 19 Sep, 2011 [facility] [address] [id number] [address] [place] [address], [place] [address] 18 Mar, 2012 [facility] [address] [id number] [address] [place] [address], [place] [address] 05 Mar, 2011 [facility] [address] [id number] [address] [place] [address], [place] [address] 28 Feb, 2012 [facility] [address] [id number] [address] [place] [address], [place] [address] Feb, [facility] [address] [id number] [address] [place] [address], [place] [address] Feb, [facility] [address] [id number] [address] [place] [address], [place] [address] Jan, [facility] [address] [id number] [address] [place] [address], [place] [address] Jan, [facility] [address] [id number] [address] [place] [address], [place] [address] Jan, [facility] [address] [id number] [address] [place] [address], [place] [address] Jan, [facility] [address] [id number] [address] [place] [address], [place] [address] Dec, [facility] [address] [id number] [address] [place] [address], [place] [address] November, [facility] [address] [id number] [address] [place] [address], [place] [address] November, [facility] [address] [id number] [address] [place] [address], [place] [address] November, [facility] [address] [id number] [address] [place] [address], [place] [address] November, [facility] [address] [id number] [address] [place] [address], [place] [address] November, [facility] [address] [id number] [address] [place] [address], [place] [address] November, [facility] [address] [id number] [address] [place] [address], [place] [address] Oct, [facility] [address] [id number] [address] [place] [address], [place] [address] Oct, [facility] [address] [id number] [address] [place] [address], [place] [address] Sep, [facility] [address] [id number] [address] [place] [address], [place] [address] Sep, [facility] [address] [id number] [address] [place] [address], [place] [address] Sep, [facility] [address] [id number] [address] [place] [address], [place] [address] Aug, [facility] [address] [id number] [address] [place] [address], [place] [address] Aug, [facility] [address] [id number] [address] [place] [address], [place] [address] Aug, [facility] [address] [id number] [address] [place] [address], [place] [address] Aug, [facility] [address] [id number] [address] [place] [address], [place] [address] Aug, [facility] [address] [id number] [address] [place] [address], [place] [address] Aug, [facility] [address] [id number] [address] [place] [address], [place] [address] Jul, [facility] [address] [id number] [address] [place] [address], [place] [address] Jul, [facility] [address] [id number] [address] [place] [address], [place] [address] Jul, [facility] [address] [id number] [address] [place] [address], [place] [address] Jul, [facility] [address] [id number] [address] [place] [address], [place] [address] Jul, [facility] [address] [id number] [address] [place] [address], [place] [address] Jul, [facility] [address] [id number] [address] [place] [address], [place] [address] Jul, [facility] [address] [id number] [address] [place] [address], [place] [address] Jul, [facility] [address] [id number] [address] [place] [address], [place] [address] Jul, [facility] [address] [id number] [address] [place] [address], [place] [address] Jul, [facility] [address] [id number] [address] [place] [address], [place] [address] Jun, [facility] [address] [id number] [address] [place] [address], [place] [address] Jun, [facility] [address] [id number] [address] [place] [address], [place] [address] Jun, [facility] [address] [id number] [address] [place] [address], [place] [address] Jun, [facility] [address] [id number] [address] [place] [address], [place] [address] May, [facility] [address] [id number] [address] [place] [address], [place] [address] May, [facility] [address] [id number] [address] [place] [address], [place] [address] May, [facility] [address] [id number] [address] [place] [address], [place] [address] May, [facility] [address] [id number] [address] [place] [address], [place] [address] Apr, [facility] [address] [id number] [address] [place] [address], [place] [address] Apr, [facility] [address] [id number] [address] [place] [address], [place] [address] November, [facility] [address] [id number] [address] [place] [address], [place] [address] 18 Oct, 2010 [facility] [address] [id number] [address] [place] [address], [place] [address] 17 Aug, 2010 [facility] [address] [id number] [address] [place] [address], [place] [address] 28 Jun, 2010 [facility] [address] [id number] [address] [place] [address], [place] [address] 28 Jun, 2010 [facility] [address] [id number] [address] [place] [address], [place] [address] 27 Jun, 2010 [facility] [address] [id number] [address] [place] [address], [place] [address] 03 Jun, 2010 [facility] [address] [id number] [address] [place] [address], [place] [address] 29 May, 2010 [facility] [address] [id number] [address] [place] [address], [place] [address] 27 Apr, 2010 [facility] [address] [id number] [address] [place] [address], [place] [address] 13 Oct, 2009 [facility] [address] [id number] [address] [place] [address], [place] [address] 13 Aug, 2009 [facility] [address] [id number] [address] [place] [address], [place] [address] Jul, [facility] [address] [id number] [address] [place] [address], [place] [address] 22 Jun, 2009 [facility] [address] [id number] [address] [place] [id number] 16 Jun, 2009 [facility] [address] [id number] [address] [place] [id number] 14 Jun, 2009 [facility] [address] [id number] [address] [place] [address], [place] [address] 14 Jun, 2009 [facility] [address] [id number] [address] [place] [id number] 09 May, 2009 [facility] [address] [id number] [address] [place] [id number] 20 Apr, 2009 [facility] [address] [id number] [address] [place] [id number] 15 Mar, 2009 [facility] [address] [facility] [id number] [address] [place] [id number] 14 Mar, 2009 [facility] [address] [facility] [id number] [address] [place] [id number] 11 Dec, 2008 IMMUNIZATIONS No Known Immunizations SOCIAL HISTORY Never Assessed REASON FOR VISIT ewelina PLAN OF CARE Activity Details Follow Up prn Reason:Extract # 8 # 9 o r hygiene VITAL SIGNS MEDICATIONS Medication Instructions Dosage Frequency Start Date End Date Duration S campbell Portermbalta Active Klonopin Active Lisinopril-Hydrochlorothiazide 20-25 MG Orally Once a day 1 tablet 24h Jul, 30 days Not-Taking Neurontin 100 MG Orally Once a day at bedtime 1 capsule Oct, 30 Not-Taking Metformin HCl Active Amoxicillin 500 MG Orally every 8 hrs 1 capsule 8h 7 days Active Omeprazole 20 mg Orally twice a day 1 capsule 12h Jul, 30 day(s) Not-Taking Metoprolol Succinate ER Active Carafate Active Bentyl Active Albuterol Sulfate (2.5 MG/3ML) 0.083% Inhalation Three times a day 3 ml as needed 8h Jul, Not-Taking Clonazepam 0.5 MG Orally daily. MAX 60/month take 1-2 tabs daily up to twice a day prn anxiety 30 days Not-Taking Tramadol HCl 50 mg Orally 3 times a day 1 tablet 8h Jun, 28 days Not-Taking Promethazine-Codeine 6.25-10 MG/5ML Orally every 6 hrs 2.5 -5 ml as needed 6h Jul, Not-Taking Docusate Sodium 100 mg Orally twice a day 1 tablet as needed 12h Jul, 30 day(s) Not-Taking Duloxetine HCl 60 MG TAKE TWO CAPSULES BY MOUTH ONCE DAILY IN THE MORNING 30 Not-Taking RESULTS No Results PROCEDURES Procedure Date Ordered Result Body Site LTD ORAL EVALUATION - PROBLEM FOCUS January 08, 2018 INTRAORL-PERIAPICAL 1 FILM [id number] January 08, 2018 INSTRUCTIONS MEDICATIONS ADMINISTERED No Known Medications [...]
--- OUTSIDE RECORDS SUMMARY | 2019-09-01 05:48 | XMS REPORT ---
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 [address] [id number] [address] [place] [address], [place] [address] Jun, [facility] [address] [id number] [address] [place] [address], [place] [address] May, [facility] [address] [id number] [address] [place] [address], [place] [address] May, [facility] [address] [id number] [address] [place] [address], [place] [address] May, [facility] [address] [id number] [address] [place] [address], [place] [address] May, [facility] [address] [id number] [address] [place] [address], [place] [address] Apr, [facility] [address] [id number] [address] [place] [address], [place] [address] Apr, [facility] [address] [id number] [address] [place] [address], [place] [address] Apr, [facility] [address] [id number] [address] [place] [address], [place] [address] Apr, [facility] [address] [id number] [address] [place] [address], [place] [address] Apr, [facility] [address] [id number] [address] [place] [address], [place] [address] Apr, [facility] [address] [id number] [address] [place] [address], [place] [address] Apr, [facility] [address] [id number] [address] [place] [address], [place] [address] Apr, [facility] [address] [id number] [address] [place] [address], [place] [address] Apr, [facility] [address] [id number] [address] [place] [address], [place] [address] Apr, [facility] [address] [id number] [address] [place] [address], [place] [address] 29 Mar, 2014 [facility] [address] [id number] [address] [place] [address], [place] [address] 29 Mar, 2013 [facility] [address] [id number] [address] [place] [address], [place] [address] 29 Mar, 2013 [facility] [address] [id number] [address] [place] [id number] 29 Mar, 2013 [facility] [address] [id number] [address] [place] [address], [place] [address] 10 Mar, 2013 [facility] [address] [id number] [address] [place] [address], [place] [address] 10 Mar, 2013 [facility] [address] [id number] [address] [place] [address], [place] [address] 04 Mar, 2013 [facility] [address] [id number] [address] [place] [address], [place] [address] 04 Mar, 2013 [facility] [address] [id number] [address] [place] [address], [place] [address] 02 Mar, 2013 [facility] [address] [id number] [address] [place] [address], [place] [address] Mar, [facility] [address] [id number] [address] [place] [address], [place] [address] 02 Mar, 2013 [facility] [address] [id number] [address] [place] [address], [place] [address] Mar, [facility] [address] [id number] [address] [place] [address], [place] [address] Feb, [facility] [address] [id number] [address] [place] [address], [place] [address] Feb, [facility] [address] [id number] [address] [place] [address], [place] [address] Jan, [facility] [address] [id number] [address] [place] [address], [place] [address] Jan, [facility] [address] [id number] [address] [place] [address], [place] [address] Jan, [facility] [address] [id number] [address] [place] [address], [place] [address] Jan, [facility] [address] [id number] [address] [place] [address], [place] [address] Dec, [facility] [address] [id number] [address] [place] [address], [place] [address] Dec, [facility] [address] [id number] [address] [place] [address], [place] [address] Dec, [facility] [address] [id number] [address] [place] [address], [place] [address] 18 Dec, 2013 [facility] [address] [id number] [address] [place] [address], [place] [address] 05 Dec, 2013 [facility] [address] [id number] [address] [place] [address], [place] [address] Dec, [facility] [address] [id number] [address] [place] [address], [place] [address] November, [facility] [address] [id number] [address] [place] [address], [place] [address] November, [facility] [address] [id number] [address] [place] [address], [place] [address] November, [facility] [address] [id number] [address] [place] [address], [place] [address] November, [facility] [address] [id number] [address] [place] [address], [place] [address] November, [facility] [address] [id number] [address] [place] [address], [place] [address] November, [address] [id number] November, [facility] [address] [id number] [address] [place] [address], [place] [address] November, [facility] [address] [id number] [address] [place] [address], [place] [address] November, [facility] [address] [id number] [address] [place] [address], [place] [address] November, [facility] [address] [id number] [address] [place] [address], [place] [address] November, [facility] [address] [id number] [address] [place] [address], [place] [address] November, [facility] [address] [id number] [address] [place] [address], [place] [address] Oct, [facility] [address] [id number] [address] [place] [address], [place] [address] Oct, [facility] [address] [id number] [address] [place] [address], [place] [address] Oct, [facility] [address] [id number] [address] [place] [address], [place] [address] Oct, [facility] [address] [id number] [address] [place] [address], [place] [address] Oct, [facility] [address] [id number] [address] [place] [address], [place] [address] Oct, [facility] [address] [id number] [address] [place] [address], [place] [address] Oct, [facility] [address] [id number] [address] [place] [address], [place] [address] Oct, [facility] [address] [id number] [address] [place] [address], [place] [address] Oct, [facility] [address] [id number] [address] [place] [address], [place] [address] Oct, [facility] [address] [id number] [address] [place] [address], [place] [address] Oct, [facility] [address] [id number] [address] [place] [address], [place] [address] Oct, [facility] [address] [id number] [address] [place] [address], [place] [address] Oct, [facility] [address] [id number] [address] [place] [address], [place] [address] Oct, [facility] [address] [id number] [address] [place] [address], [place] [address] Oct, [facility] [address] [id number] [address] [place] [address], [place] [address] Sep, [facility] [address] [id number] [address] [place] [address], [place] [address] Sep, [facility] [address] [id number] [address] [place] [address], [place] [address] Sep, [facility] [address] [id number] [address] [place] [address], [place] [address] Sep, [facility] [address] [id number] [address] [place] [address], [place] [address] Aug, [facility] [address] [id number] [address] [place] [address], [place] [address] Aug, [facility] [address] [id number] [address] [place] [address], [place] [address] Aug, [facility] [address] [id number] [address] [place] [address], [place] [address] Aug, [facility] [address] [id number] [address] [place] [address], [place] [address] Jul, [facility] [address] [id number] [address] [place] [address], [place] [address] Jul, [facility] [address] [id number] [address] [place] [address], [place] [address] Jul, [facility] [address] [id number] [address] [place] [address], [place] [address] Jul, [facility] [address] [id number] [address] [place] [address], [place] [address] Jul, [facility] [address] [id number] [address] [place] [address], [place] [address] Jul, [facility] [address] [id number] [address] [place] [address], [place] [address] Jul, [facility] [address] [id number] [address] [place] [address], [place] [address] Jul, [facility] [address] [id number] [address] [place] [address], [place] [address] Jul, [facility] [address] [id number] [address] [place] [address], [place] [address] Jul, [facility] [address] [id number] [address] [place] [address], [place] [address] Jul, [facility] [address] [id number] [address] [place] [address], [place] [address] Jul, [facility] [address] [id number] [address] [place] [address], [place] [address] Jul, [facility] [address] [id number] [address] [place] [address], [place] [address] Jul, [facility] [address] [id number] [address] [place] [address], [place] [address] Jun, [facility] [address] [id number] [address] [place] [address], [place] [address] Jun, [facility] [address] [id number] [address] [place] [address], [place] [address] Jun, [facility] [address] [id number] [address] [place] [address], [place] [address] Jun, [facility] [address] [id number] [address] [place] [address], [place] [address] May, [facility] [address] [id number] [address] [place] [address], [place] [address] May, [facility] [address] [id number] [address] [place] [address], [place] [address] May, [facility] [address] [id number] [address] [place] [address], [place] [address] May, [facility] [address] [id number] [address] [place] [address], [place] [address] May, [facility] [address] [id number] [address] [place] [address], [place] [address] May, [facility] [address] [id number] [address] [place] [address], [place] [address] May, [facility] [address] [id number] [address] [place] [address], [place] [address] May, [facility] [address] [id number] [address] [place] [address], [place] [address] Apr, [facility] [address] [id number] [address] [place] [address], [place] [address] 28 Apr, [address] [facility] [address] [id number] [address] [place] [address], [place] [address] Apr, [facility] [address] [id number] [address] [place] [address], [place] [address] Apr, [facility] [address] [id number] [address] [place] [address], [place] [address] 08 Apr, [address] [facility] [address] [id number] [address] [place] [address], [place] [address] Apr, [facility] [address] [id number] [address] [place] [address], [place] [address] 30 Mar, [address] [facility] [address] [id number] [address] [place] [address], [place] [address] 26 Mar, [address] [facility] [address] [id number] [address] [place] [address], [place] [address] 20 Mar, [address] [facility] [address] [id number] [address] [place] [address], [place] [address] 17 Mar, [address] [facility] [address] [id number] [address] [place] [address], [place] [address] 16 Mar, [address] [facility] [address] [id number] [address] [place] [address], [place] [address] 05 Mar, 2013 [facility] [address] [id number] [address] [place] [address], [place] [address] 27 Feb, [address] [facility] [address] [id number] [address] [place] [address], [place] [address] Feb, [facility] [address] [id number] [address] [place] [address], [place] [address] Feb, [facility] [address] [id number] [address] [place] [address], [place] [address] Feb, [facility] [address] [id number] [address] [place] [address], [place] [address] Jan, [facility] [address] [id number] [address] [place] [address], [place] [address] Jan, [facility] [address] [id number] [address] [place] [address], [place] [address] Jan, [facility] [address] [id number] [address] [place] [address], [place] [address] Jan, [facility] [address] [id number] [address] [place] [address], [place] [address] Jan, [facility] [address] [id number] [address] [place] [address], [place] [address] Dec, [facility] [address] [id number] [address] [place] [address], [place] [address] Dec, [facility] [address] [id number] [address] [place] [address], [place] [address] Dec, [facility] [address] [id number] [address] [place] [address], [place] [address] November, [facility] [address] [id number] [address] [place] [address], [place] [address] November, [facility] [address] [id number] [address] [place] [address], [place] [address] November, [facility] [address] [id number] [address] [place] [address], [place] [address] Oct, [facility] [address] [id number] [address] [place] [address], [place] [address] Oct, [facility] [address] [id number] [address] [place] [address], [place] [address] Oct, [facility] [address] [id number] [address] [place] [address], [place] [address] Oct, [facility] [address] [id number] [address] [place] [address], [place] [address] Oct, [facility] [address] [id number] [address] [place] [address], [place] [address] 17 Oct, [address] [facility] [address] [id number] [address] [place] [address], [place] [address] 15 Oct, [address] [facility] [address] [id number] [address] [place] [address], [place] [address] 26 Sep, [address] [facility] [address] [id number] [address] [place] [address], [place] [address] Sep, [facility] [address] [id number] [address] [place] [address], [place] [address] Sep, [facility] [address] [id number] [address] [place] [address], [place] [address] Sep, [facility] [address] [id number] [address] [place] [address], [place] [address] Aug, [facility] [address] [id number] [address] [place] [address], [place] [address] Aug, [facility] [address] [id number] [address] [place] [address], [place] [address] Aug, [facility] [address] [id number] [address] [place] [address], [place] [address] Aug, [facility] [address] [id number] [address] [place] [address], [place] [address] Aug, [facility] [address] [id number] [address] [place] [address], [place] [address] Aug, [facility] [address] [id number] [address] [place] [address], [place] [address] Jul, [facility] [address] [id number] [address] [place] [address], [place] [address] Jul, [facility] [address] [id number] [address] [place] [address], [place] [address] Jul, [facility] [address] [id number] [address] [place] [address], [place] [address] Jul, [facility] [address] [id number] [address] [place] [address], [place] [address] Jul, [facility] [address] [id number] [address] [place] [address], [place] [address] Jul, [facility] [address] [id number] [address] [place] [address], [place] [address] Jun, [facility] [address] [id number] [address] [place] [address], [place] [address] Jun, [facility] [address] [id number] [address] [place] [address], [place] [address] Jun, [facility] [address] [id number] [address] [place] [address], [place] [address] Jun, [facility] [address] [id number] [address] [place] [address], [place] [address] Jun, [facility] [address] [id number] [address] [place] [address], [place] [address] Jun, [facility] [address] [id number] [address] [place] [address], [place] [address] May, [facility] [address] [id number] [address] [place] [address], [place] [address] May, [facility] [address] [id number] [address] [place] [address], [place] [address] May, [facility] [address] [id number] [address] [place] [address], [place] [address] May, [facility] [address] [id number] [address] [place] [address], [place] [address] May, [facility] [address] [id number] [address] [place] [address], [place] [address] May, [facility] [address] [id number] [address] [place] [address], [place] [address] May, [facility] [address] [id number] [address] [place] [address], [place] [address] May, [facility] [address] [id number] [address] [place] [address], [place] [address] May, [facility] [address] [id number] [address] [place] [address], [place] [address] May, [facility] [address] [id number] [address] [place] [address], [place] [address] Apr, [facility] [address] [id number] [address] [place] [address], [place] [address] 31 Apr, [address] [facility] [address] [id number] [address] [place] [address], [place] [address] Apr, [facility] [address] [id number] [address] [place] [address], [place] [address] Apr, [facility] [address] [id number] [address] [place] [address], [place] [address] 16 Apr, [address] [facility] [address] [id number] [address] [place] [address], [place] [address] 16 Apr, [address] [facility] [address] [id number] [address] [place] [address], [place] [address] 15 Apr, [address] [facility] [address] [id number] [address] [place] [address], [place] [address] 15 Apr, 2012 [facility] [address] [id number] [address] [place] [address], [place] [address] 05 Apr, [address] [facility] [address] [id number] [address] [place] [address], [place] [address] 28 Mar, 2012 [facility] [address] [id number] [address] [place] [address], [place] [address] 26 Mar, [address] [facility] [address] [id number] [address] [place] [address], [place] [address] 25 Mar, 2012 [facility] [address] [id number] [address] [place] [address], [place] [address] Mar, [facility] [address] [id number] [address] [place] [address], [place] [address] Mar, [facility] [address] [id number] [address] [place] [address], [place] [address] Mar, [facility] [address] [id number] [address] [place] [address], [place] [address] Feb, [facility] [address] [id number] [address] [place] [address], [place] [address] Feb, [facility] [address] [id number] [address] [place] [address], [place] [address] Feb, [facility] [address] [id number] [address] [place] [address], [place] [address] Jan, [facility] [address] [id number] [address] [place] [address], [place] [address] Jan, [facility] [address] [id number] [address] [place] [address], [place] [address] Jan, [facility] [address] [id number] [address] [place] [address], [place] [address] Jan, [facility] [address] [id number] [address] [place] [address], [place] [address] Dec, [facility] [address] [id number] [address] [place] [address], [place] [address] November, [facility] [address] [id number] [address] [place] [address], [place] [address] November, [facility] [address] [id number] [address] [place] [address], [place] [address] November, [facility] [address] [id number] [address] [place] [address], [place] [address] November, [facility] [address] [id number] [address] [place] [address], [place] [address] November, [facility] [address] [id number] [address] [place] [address], [place] [address] November, [facility] [address] [id number] [address] [place] [address], [place] [address] Oct, [facility] [address] [id number] [address] [place] [address], [place] [address] Oct, [facility] [address] [id number] [address] [place] [address], [place] [address] Sep, [facility] [address] [id number] [address] [place] [address], [place] [address] Sep, [facility] [address] [id number] [address] [place] [address], [place] [address] Sep, [facility] [address] [id number] [address] [place] [address], [place] [address] Aug, [facility] [address] [id number] [address] [place] [address], [place] [address] Aug, [facility] [address] [id number] [address] [place] [address], [place] [address] Aug, [facility] [address] [id number] [address] [place] [address], [place] [address] Aug, [facility] [address] [id number] [address] [place] [address], [place] [address] Aug, [facility] [address] [id number] [address] [place] [address], [place] [address] Aug, [facility] [address] [id number] [address] [place] [address], [place] [address] Jul, [facility] [address] [id number] [address] [place] [address], [place] [address] Jul, [facility] [address] [id number] [address] [place] [address], [place] [address] Jul, [facility] [address] [id number] [address] [place] [address], [place] [address] 20 Jul, [address] [facility] [address] [id number] [address] [place] [address], [place] [address] 18 Jul, [address] [facility] [address] [id number] [address] [place] [address], [place] [address] 18 Jul, [address] [facility] [address] [id number] [address] [place] [address], [place] [address] 17 Jul, [address] [facility] [address] [id number] [address] [place] [address], [place] [address] Jul, [facility] [address] [id number] [address] [place] [address], [place] [address] Jul, [facility] [address] [id number] [address] [place] [address], [place] [address] Jul, [facility] [address] [id number] [address] [place] [address], [place] [address] Jun, [facility] [address] [id number] [address] [place] [address], [place] [address] Jun, [facility] [address] [id number] [address] [place] [address], [place] [address] Jun, [facility] [address] [id number] [address] [place] [address], [place] [address] Jun, [facility] [address] [id number] [address] [place] [address], [place] [address] 30 May, 2011 [facility] [address] [id number] [address] [place] [address], [place] [address] May, [facility] [address] [id number] [address] [place] [address], [place] [address] May, [facility] [address] [id number] [address] [place] [address], [place] [address] 08 May, 2011 [facility] [address] [id number] [address] [place] [address], [place] [address] 31 Apr, [address] [facility] [address] [id number] [address] [place] [address], [place] [address] 31 Apr, 2011 [facility] [address] [id number] [address] [place] [address], [place] [address] 10 Nov, 2010 [facility] [address] [id number] [address] [place] [address], [place] [address] 18 Oct, 2010 [facility] [address] [id number] [address] [place] [address], [place] [address] 17 Aug, 2010 [facility] [address] [id number] [address] [place] [address], [place] [address] 28 Jun, 2010 [facility] [address] [id number] [address] [place] [address], [place] [address] 28 Jun, 2010 [facility] [address] [id number] [address] [place] [address], [place] [address] 27 Jun, 2010 [facility] [address] [id number] [address] [place] [address], [place] [address] 03 Jun, 2010 [facility] [address] [id number] [address] [place] [address], [place] [address] 29 May, 2010 [facility] [address] [id number] [address] [place] [address], [place] [address] 27 Apr, 2010 [facility] [address] [id number] [address] [place] [address], [place] [address] 13 Oct, 2009 [facility] [address] [id number] [address] [place] [address], [place] [address] 13 Aug, 2009 [facility] [address] [id number] [address] [place] [address], [place] [address] 20 Jul, 2009 [facility] [address] [id number] [address] [place] [address], [place] [address] 22 Jun, 2009 [facility] [address] [id number] [address] [place] [address], [place] [address] 16 Jun, 2009 [facility] [address] [id number] [address] [place] [address], [place] [address] 14 Jun, 2009 [facility] [address] [facility] [id number] [address] [place] [id number] 14 Jun, 2009 [facility] [address] [facility] [id number] [address] [place] [id number] May, [facility] [address] [facility] [id number] [address] [place] [id number] Apr, [facility] [address] [facility] [id number] [address] [place] [id number] 15 Mar, 2009 [facility] [address] [facility] [id number] [address] [place] [id number] 14 Mar, 2009 [facility] [address] [facility] [id number] [address] [place] [id number] 11 Dec, 2008 IMMUNIZATIONS No Known Immunizations SOCIAL HISTORY Never Assessed REASON FOR VISIT Eye Exam PLAN OF CARE VITAL SIGNS MEDICATIONS Unknown [...]
--- OUTSIDE RECORDS SUMMARY | 2019-09-01 05:49 | XMS REPORT ---
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 Mar, 2013 [facility] [address] [id number] [address] [place] [address], [place] [address] Mar, 2013 [facility] [address] [id number] [address] [place] [address], [place] [address] Mar, 2013 [facility] [address] [id number] [address] [place] [address], [place] [address] 29 Mar, 2013 [facility] [address] [id number] [address] [place] [address], [place] [address] 10 Mar, 2013 [facility] [address] [id number] [address] [place] [address] 10 Mar, 2013 [facility] [address] [id number] [address] [place] [address] Mar, 2013 [facility] [address] [id number] [address] [place] [address], [place] [address] Mar, 2013 [facility] [address] [id number] [address] [place] [address], [place] [address] Mar, 2013 [facility] [address] [id number] [address] [place] [address], [place] [address] Mar, 2013 [facility] [address] [id number] [address] [place] [address], [place] [address] Mar, [facility] [address] [id number] [address] [place] [address], [place] [address] Mar, [facility] [address] [id number] [address] [place] [address], [place] [address] Feb, [facility] [address] [id number] [address] [place] [address], [place] [address] Feb, [facility] [address] [id number] [address] [place] [address], [place] [address] Jan, [facility] [address] [id number] [address] [place] [address], [place] [address] Jan, [facility] [address] [id number] [address] [place] [address], [place] [address] Jan, [facility] [address] [id number] [address] [place] [address], [place] [address] Jan, [facility] [address] [id number] [address] [place] [address], [place] [address] Dec, [facility] [address] [id number] [address] [place] [address], [place] [address] Dec, [facility] [address] [id number] [address] [place] [address], [place] [address] Dec, [facility] [address] [id number] [address] [place] [address], [place] [address] Dec, [facility] [address] [id number] [address] [place] [address], [place] [address] Dec, [facility] [address] [id number] [address] [place] [address], [place] [address] Dec, [facility] [address] [id number] [address] [place] [address], [place] [address] November, [facility] [address] [id number] [address] [place] [address], [place] [address] November, [facility] [address] [id number] [address] [place] [address], [place] [address] November, [facility] [address] [id number] [address] [place] [address], [place] [address] November, [facility] [address] [id number] [address] [place] [address], [place] [address] November, [facility] [address] [id number] [address] [place] [address], [place] [address] November, [facility] [id number] November, [facility] [address] [id number] [address] [place] [address], [place] [address] November, [facility] [address] [id number] [address] [place] [address], [place] [address] November, [facility] [address] [id number] [address] [place] [address], [place] [address] November, [facility] [address] [id number] [address] [place] [address], [place] [address] November, [facility] [address] [id number] [address] [place] [address], [place] [address] November, [facility] [address] [id number] [address] [place] [address], [place] [address] Oct, [facility] [address] [id number] [address] [place] [address], [place] [address] Oct, [facility] [address] [id number] [address] [place] [address], [place] [address] Oct, [facility] [address] [id number] [address] [place] [address], [place] [address] Oct, [facility] [address] [id number] [address] [place] [address], [place] [address] Oct, [facility] [address] [id number] [address] [place] [address], [place] [address] Oct, [facility] [address] [id number] [facility] [place] [address] Oct, [facility] [address] [id number] [address] [place] [address], [place] [address] Oct, [facility] [address] [id number] [address] [place] [address], [place] [address] Oct, [facility] [address] [id number] [address] [place] [address], [place] [address] Oct, [facility] [address] [id number] [address] [place] [address], [place] [address] Oct, [facility] [address] [id number] [address] [place] [address], [place] [address] Oct, [facility] [address] [id number] [address] [place] [address], [place] [address] Oct, [facility] [address] [id number] [address] [place] [address], [place] [address] Oct, [facility] [address] [id number] [address] [place] [address], [place] [address] Oct, [facility] [address] [id number] [address] [place] [address], [place] [address] Sep, [facility] [address] [id number] [address] [place] [address], [place] [address] Sep, [facility] [address] [id number] [address] [place] [address], [place] [address] Sep, [facility] [address] [id number] [address] [place] [address], [place] [address] Sep, [facility] [address] [id number] [address] [place] [address], [place] [address] Aug, [facility] [address] [id number] [address] [place] [address], [place] [address] Aug, [facility] [address] [id number] [address] [place] [address], [place] [address] Aug, [facility] [address] [id number] [address] [place] [address], [place] [address] Aug, [facility] [address] [id number] [address] [place] [address], [place] [address] Jul, [facility] [address] [id number] [address] [place] [address], [place] [id number] Jul, [facility] [address] [id number] [address] [place] [address], [place] [address] Jul, [facility] [address] [id number] [address] [place] [address], [place] [address] Jul, [facility] [address] [id number] [address] [place] [address], [place] [id number] Jul, [facility] [address] [id number] [address] [place] [address], [place] [address] Jul, [facility] [address] [id number] [address] [place] [address], [place] [address] Jul, [facility] [address] [id number] [address] [place] [address], [place] [id number] Jul, [facility] [address] [id number] [address] [place] [address], [place] [address] Jul, [facility] [address] [id number] [address] [place] [address], [place] [id number] Jul, [facility] [address] [id number] [address] [place] [address], [place] [id number] Jul, [facility] [address] [id number] [address] [place] [address], [place] [id number] Jul, [facility] [address] [id number] [address] [place] [address], [place] [address] Jul, [facility] [address] [id number] [address] [place] [address], [place] [address] Jul, [facility] [address] [id number] [address] [place] [address], [place] [address] Jun, [facility] [address] [id number] [address] [place] [address], [place] [address] Jun, [facility] [address] [id number] [address] [place] [address], [place] [id number] Jun, [facility] [address] [id number] [address] [place] [address], [place] [address] Jun, [facility] [address] [id number] [address] [place] [address], [place] [address] May, [facility] [address] [id number] [address] [place] [address], [place] [address] May, [facility] [address] [id number] [address] [place] [address], [place] [address] May, [facility] [address] [id number] [address] [place] [address], [place] [address] May, [facility] [address] [id number] [address] [place] [address], [place] [address] May, [facility] [address] [id number] [address] [place] [address], [place] [address] May, [facility] [address] [id number] [address] [place] [address], [place] [address] May, [facility] [address] [id number] [address] [place] [address], [place] [address] May, [facility] [address] [id number] [address] [place] [address], [place] [id number] Apr, [facility] [address] [id number] [address] [place] [address], [place] [id number] Apr, [facility] [address] [id number] [address] [place] [address], [place] [address] Apr, [facility] [address] [id number] [address] [place] [address], [place] [address] Apr, [facility] [address] [id number] [address] [place] [address], [place] [address] Apr, [facility] [address] [id number] [address] [place] [address], [place] [address] Apr, [facility] [address] [id number] [address] [place] [address], [place] [id number] 30 Mar, 2013 [facility] [address] [id number] [address] [place] [address], [place] [id number] 26 Mar, 2013 [facility] [address] [id number] [address] [place] [address], [place] [id number] 20 Mar, 2013 [facility] [address] [id number] [address] [place] [address], [place] [id number] 17 Mar, 2013 [facility] [address] [id number] [address] [place] [address], [place] [id number] 16 Mar, 2013 [facility] [address] [id number] [address] [place] [address], [place] [id number] 05 Mar, 2013 [facility] [address] [id number] [address] [place] [address], [place] [address] Feb, [facility] [address] [id number] [address] [place] [address], [place] [id number] Feb, [facility] [address] [id number] [address] [place] [address], [place] [id number] Feb, [facility] [address] [id number] [address] [place] [address], [place] [id number] Feb, [facility] [address] [id number] [address] [place] [address], [place] [address] Jan, [facility] [address] [id number] [address] [place] [address], [place] [address] Jan, [facility] [address] [id number] [address] [place] [address], [place] [id number] Jan, [facility] [address] [id number] [address] [place] [address], [place] [id number] Jan, [facility] [address] [id number] [address] [place] [address], [place] [address] Jan, [facility] [address] [id number] [address] [place] [address], [place] [address] Dec, [facility] [address] [id number] [address] [place] [address], [place] [address] Dec, [facility] [address] [id number] [address] [place] [address], [place] [address] Dec, [facility] [address] [id number] [address] [place] [address], [place] [address] November, [facility] [address] [id number] [address] [place] [address], [place] [address] November, [facility] [address] [id number] [address] [place] [address], [place] [address] November, [facility] [address] [id number] [address] [place] [address], [place] [address] Oct, [facility] [address] [id number] [address] [place] [address], [place] [id number] Oct, [facility] [address] [id number] [address] [place] [address], [place] [address] Oct, [facility] [address] [id number] [address] [place] [address], [place] [address] Oct, [facility] [address] [id number] [address] [place] [address], [place] [address] 18 Oct, 2012 [facility] [address] [id number] [address] [place] [address], [place] [address] 17 Oct, 2012 [facility] [address] [id number] [address] [place] [address], [place] [id number] 15 Oct, 2012 [facility] [address] [id number] [address] [place] [address], [place] [address] Sep, [facility] [address] [id number] [address] [place] [address], [place] [address] Sep, [facility] [address] [id number] [address] [place] [address], [place] [address] Sep, [facility] [address] [id number] [address] [place] [address], [place] [address] Sep, [facility] [address] [id number] [address] [place] [address], [place] [address] Aug, [facility] [address] [id number] [address] [place] [address], [place] [address] Aug, [facility] [address] [id number] [address] [place] [address], [place] [address] Aug, [facility] [address] [id number] [address] [place] [address], [place] [address] Aug, [facility] [address] [id number] [address] [place] [address], [place] [address] Aug, [facility] [address] [id number] [address] [place] [address], [place] [address] Aug, [facility] [address] [id number] [address] [place] [address], [place] [address] Jul, [facility] [address] [id number] [address] [place] [address], [place] [address] Jul, [facility] [address] [id number] [address] [place] [address], [place] [address] Jul, [facility] [address] [id number] [address] [place] [address], [place] [address] Jul, [facility] [address] [id number] [address] [place] [address], [place] [address] Jul, [facility] [address] [id number] [address] [place] [address], [place] [address] Jul, [facility] [address] [id number] [address] [place] [address], [place] [address] Jun, [facility] [address] [id number] [address] [place] [address], [place] [address] Jun, [facility] [address] [id number] [address] [place] [address], [place] [address] Jun, [facility] [address] [id number] [address] [place] [address], [place] [address] Jun, [facility] [address] [id number] [address] [place] [address], [place] [address] Jun, [facility] [address] [id number] [address] [place] [address], [place] [address] Jun, [facility] [address] [id number] [address] [place] [address], [place] [address] May, [facility] [address] [id number] [address] [place] [address], [place] [address] May, [facility] [address] [id number] [address] [place] [address], [place] [address] May, [facility] [address] [id number] [address] [place] [address], [place] [address] May, [facility] [address] [id number] [address] [place] [address], [place] [address] May, [facility] [address] [id number] [address] [place] [address], [place] [address] May, [facility] [address] [id number] [address] [place] [address], [place] [address] May, [facility] [address] [id number] [address] [place] [address], [place] [address] May, [facility] [address] [id number] [address] [place] [address], [place] [address] May, [facility] [address] [id number] [address] [place] [address], [place] [address] May, [facility] [address] [id number] [address] [place] [address], [place] [address] 31 Apr, 2012 [facility] [address] [id number] [address] [place] [address], [place] [address] 31 Apr, 2012 [facility] [address] [id number] [address] [place] [address], [place] [address] 23 Apr, 2012 [facility] [address] [id number] [address] [place] [address], [place] [address] 23 Apr, 2012 [facility] [address] [id number] [address] [place] [address], [place] [address] 16 Apr, 2012 [facility] [address] [id number] [address] [place] [address], [place] [address] 16 Apr, 2012 [facility] [address] [id number] [address] [place] [address], [place] [address] 15 Apr, 2012 [facility] [address] [id number] [address] [place] [address], [place] [address] 15 Apr, 2012 [facility] [address] [id number] [address] [place] [address], [place] [address] 05 Apr, 2012 [facility] [address] [id number] [address] [place] [id number] 28 Mar, 2012 [facility] [address] [id number] [address] [place] [address], [place] [address] 26 Sep, 2011 [facility] [address] [id number] [address] [place] [id number] 25 Sep, 2011 [facility] [address] [id number] [address] [place] [address], [place] [address] 19 Sep, 2011 [facility] [address] [id number] [address] [place] [address], [place] [id number] 18 Sep, 2011 [facility] [address] [id number] [address] [place] [id number] 05 Sep, 2011 [facility] [address] [id number] [address] [place] [id number] Feb, [facility] [address] [id number] [address] [place] [address], [place] [address] Feb, [facility] [address] [id number] [address] [place] [address], [place] [address] Feb, [facility] [address] [id number] [address] [place] [address], [place] [address] Jan, [facility] [address] [id number] [address] [place] [address], [place] [address] Jan, [facility] [address] [id number] [address] [place] [address], [place] [address] Jan, [facility] [address] [id number] [address] [place] [address], [place] [id number] Jan, [facility] [address] [id number] [address] [place] [address], [place] [address] Dec, [facility] [address] [id number] [address] [place] [address], [place] [address] November, [facility] [address] [id number] [address] [place] [address], [place] [address] November, [facility] [address] [id number] [address] [place] [address], [place] [id number] November, [facility] [address] [id number] [address] [place] [address], [place] [address] November, [facility] [address] [id number] [address] [place] [address], [place] [address] November, [facility] [address] [id number] [address] [place] [address], [place] [address] November, [facility] [address] [id number] [address] [place] [address], [place] [address] Oct, [facility] [address] [id number] [address] [place] [address], [place] [address] Oct, [facility] [address] [id number] [address] [place] [address], [place] [address] Sep, [facility] [address] [id number] [address] [place] [address], [place] [address] Sep, [facility] [address] [id number] [address] [place] [address], [place] [address] Sep, [facility] [address] [id number] [address] [place] [address], [place] [address] Aug, [facility] [address] [id number] [address] [place] [address], [place] [address] Aug, [facility] [address] [id number] [address] [place] [address], [place] [address] Aug, [facility] [address] [id number] [address] [place] [address], [place] [address] Aug, [facility] [address] [id number] [address] [place] [address], [place] [address] Aug, [facility] [address] [id number] [address] [place] [address], [place] [address] Aug, [facility] [address] [id number] [address] [place] [address], [place] [address] Jul, [facility] [address] [id number] [address] [place] [address], [place] [address] Jul, [facility] [address] [id number] [address] [place] [address], [place] [address] Jul, [facility] [address] [id number] [address] [place] [address], [place] [address] Jul, [facility] [address] [id number] [address] [place] [address], [place] [address] Jul, [facility] [address] [id number] [address] [place] [address], [place] [address] Jul, [facility] [address] [id number] [address] [place] [address], [place] [id number] 17 Jul, 2011 [facility] [address] [id number] [address] [place] [address], [place] [address] Jul, [facility] [address] [id number] [address] [place] [address], [place] [address] Jul, [facility] [address] [id number] [address] [place] [address], [place] [address] Jul, [facility] [address] [id number] [address] [place] [address], [place] [address] Jun, [facility] [address] [id number] [address] [place] [address], [place] [address] Jun, [facility] [address] [id number] [address] [place] [address], [place] [address] Jun, [facility] [address] [id number] [address] [place] [address], [place] [address] Jun, [facility] [address] [id number] [address] [place] [address], [place] [address] May, [facility] [address] [id number] [address] [place] [address], [place] [address] May, [facility] [address] [id number] [address] [place] [address], [place] [address] May, [facility] [address] [id number] [address] [place] [address], [place] [address] May, [facility] [address] [id number] [address] [place] [address], [place] [address] Apr, [facility] [address] [id number] [address] [place] [address], [place] [address] Apr, [facility] [address] [id number] [address] [place] [address], [place] [address] November, [facility] [address] [id number] [address] [place] [address], [place] [address] Oct, [facility] [address] [id number] [address] [place] [address], [place] [address] 17 Aug, 2010 [facility] [address] [id number] [address] [place] [address], [place] [address] 28 Jun, 2010 [facility] [address] [id number] [address] [place] [address], [place] [address] 28 Jun, 2010 [facility] [address] [id number] [address] [place] [address], [place] [address] 27 Jun, 2010 [facility] [address] [id number] [address] [place] [address], [place] [address] 03 Jun, 2010 [facility] [address] [id number] [address] [place] [address], [place] [address] 29 May, 2010 [facility] [address] [id number] [address] [place] [address], [place] [address] Apr, [facility] [address] [id number] [address] [place] [address], [place] [address] Oct, [facility] [address] [id number] [address] [place] [address], [place] [address] 13 Aug, 2009 [facility] [address] [id number] [address] [place] [address], [place] [address] Jul, [facility] [address] [id number] [address] [place] [address], [place] [address] 22 Jun, 2009 [facility] [address] [id number] [address] [place] [address], [place] [address] 16 Jun, 2009 [facility] [address] [id number] [address] [place] [address], [place] [address] 14 Jun, 2009 [facility] [address] [id number] [address] [place] [address], [place] [address] 14 Jun, 2009 [facility] [address] [id number] [address] [place] [address], [place] [address] 09 May, 2009 [facility] [address] [id number] [address] [place] [address], [place] [address] Apr, [facility] [address] [facility] [id number] [address] [place] [id number] 15 Mar, 2009 [facility] [address] [facility] [id number] [address] [place] [id number] 14 Mar, 2009 [facility] [address] [facility] [id number] [address] [place] [address] Dec, IMMUNIZATIONS No Known Immunizations SOCIAL HISTORY Never Assessed REASON FOR VISIT Repower 24M--[id number] PLAN OF CARE VITAL SIGNS Height 66.0 in 2017-12-23 Weight 199.2 lbs 2017-12-23 Temperature 98.2 degrees Fahrenheit 2017-12-23 Heart Rate 76 bpm 2017-12-23 Respiratory Rate 20 2017-12-23 BMI 32.15 kg/m2 2017-12-23 Blood pressure systolic 124 mmHg 2017-12-23 Blood pressure diastolic 86 mmHg 2017-12-23 MEDICATIONS Unknown Medications RESULTS No Results PROCEDURES Procedure Date Ordered Result Body Site LAB NOT BILLED BY [facility] December 23, 2017 No Charge December 23, 2017 INSTRUCTIONS MEDICATIONS ADMINISTERED No Known Medications [...]
--- OUTSIDE RECORDS SUMMARY | 2019-09-01 05:49 | XMS REPORT ---
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 Apr, [facility] [address] [id number] [address] [place] [address], [place] [address] Apr, [facility] [address] [id number] [address] [place] [address], [place] [address] 29 Mar, 2013 [facility] [address] [id number] [address] [place] [address], [place] [address] 29 Mar, 2013 [facility] [address] [id number] [address] [place] [address], [place] [address] 29 Mar, 2013 [facility] [address] [id number] [address] [place] [address], [place] [address] 29 Mar, 2013 [facility] [address] [id number] [address] [place] [address], [place] [address] 10 Mar, 2013 [facility] [address] [id number] [address] [place] [address] 10 Mar, 2013 [facility] [address] [id number] [address] [place] [id number] Sep, 2013 [facility] [address] [id number] [address] [place] [address], [place] [address] 04 Sep, 2013 [facility] [address] [id number] [address] [place] [address], [place] [address] 02 Mar, 2013 [facility] [address] [id number] [address] [place] [address], [place] [address] Mar, 2013 [facility] [address] [id number] [address] [place] [address], [place] [address] Mar, [facility] [address] [id number] [address] [place] [address], [place] [address] Mar, [facility] [address] [id number] [address] [place] [address], [place] [address] Feb, [facility] [address] [id number] [address] [place] [address], [place] [address] Feb, [facility] [address] [id number] [address] [place] [address], [place] [address] Jan, [facility] [address] [id number] [address] [place] [address], [place] [address] Jan, [facility] [address] [id number] [address] [place] [address], [place] [address] Jan, [facility] [address] [id number] [address] [place] [address], [place] [address] Jan, [facility] [address] [id number] [address] [place] [address], [place] [address] Dec, [facility] [address] [id number] [address] [place] [address], [place] [address] Dec, [facility] [address] [id number] [address] [place] [address], [place] [address] Dec, [facility] [address] [id number] [address] [place] [address], [place] [address] Dec, [facility] [address] [id number] [address] [place] [address], [place] [address] Dec, [facility] [address] [id number] [address] [place] [address], [place] [address] Dec, [facility] [address] [id number] [address] [place] [address], [place] [address] November, [facility] [address] [id number] [address] [place] [address], [place] [address] November, [facility] [address] [id number] [address] [place] [address], [place] [address] November, [facility] [address] [id number] [address] [place] [address], [place] [address] November, [facility] [address] [id number] [address] [place] [address], [place] [address] November, [facility] [address] [id number] [address] [place] [address], [place] [address] November, [facility] [address] [facility] [id number] November, [facility] [address] [id number] [address] [place] [address], [place] [address] November, [facility] [address] [id number] [address] [place] [address], [place] [address] November, [facility] [address] [id number] [address] [place] [address], [place] [address] November, [facility] [address] [id number] [address] [place] [address], [place] [address] November, [facility] [address] [id number] [address] [place] [address], [place] [address] November, [facility] [address] [id number] [address] [place] [address], [place] [address] Oct, [facility] [address] [id number] [address] [place] [address], [place] [address] Oct, [facility] [address] [id number] [address] [place] [address], [place] [address] Oct, [facility] [address] [id number] [address] [place] [address], [place] [address] Oct, [facility] [address] [id number] [address] [place] [address], [place] [address] Oct, [facility] [address] [id number] [address] [place] [address], [place] [address] Oct, [facility] [address] [id number] [facility] [place] [address] Oct, [facility] [address] [id number] [facility] [place] [address] Oct, [facility] [address] [id number] [facility] [place] [address] Oct, [facility] [address] [id number] [address] [place] [address], [place] [address] Oct, [facility] [address] [id number] [address] [place] [address], [place] [address] Oct, [facility] [address] [id number] [address] [place] [address], [place] [address] Oct, [facility] [address] [id number] [address] [place] [address], [place] [address] Oct, [facility] [address] [id number] [address] [place] [address], [place] [address] Oct, [facility] [address] [id number] [address] [place] [address], [place] [address] Oct, [facility] [address] [id number] [address] [place] [address], [place] [address] Sep, [facility] [address] [id number] [address] [place] [address], [place] [address] Sep, [facility] [address] [id number] [address] [place] [address], [place] [address] Sep, [facility] [address] [id number] [address] [place] [address], [place] [address] Sep, [facility] [address] [id number] [address] [place] [address], [place] [address] Aug, [facility] [address] [id number] [address] [place] [address], [place] [address] Aug, [facility] [address] [id number] [address] [place] [address], [place] [address] Aug, [facility] [address] [id number] [address] [place] [address], [place] [address] Aug, [facility] [address] [id number] [address] [place] [address], [place] [address] Jul, [facility] [address] [id number] [address] [place] [address], [place] [address] Jul, [facility] [address] [id number] [address] [place] [address], [place] [address] Jul, [facility] [address] [id number] [address] [place] [address], [place] [address] Jul, [facility] [address] [id number] [address] [place] [address], [place] [address] Jul, [facility] [address] [id number] [address] [place] [address], [place] [address] Jul, [facility] [address] [id number] [address] [place] [address], [place] [address] Jul, [facility] [address] [id number] [address] [place] [address], [place] [address] Jul, [facility] [address] [id number] [address] [place] [address], [place] [address] Jul, [facility] [address] [id number] [address] [place] [address], [place] [address] Jul, [facility] [address] [id number] [address] [place] [address], [place] [address] Jul, [facility] [address] [id number] [address] [place] [address], [place] [address] Jul, [facility] [address] [id number] [address] [place] [address], [place] [address] Jul, [facility] [address] [id number] [address] [place] [address], [place] [address] Jul, [facility] [address] [id number] [address] [place] [address], [place] [address] Jun, [facility] [address] [id number] [address] [place] [address], [place] [address] Jun, [facility] [address] [id number] [address] [place] [address], [place] [address] Jun, [facility] [address] [id number] [address] [place] [address], [place] [address] Jun, [facility] [address] [id number] [address] [place] [address], [place] [address] May, [facility] [address] [id number] [address] [place] [address], [place] [address] May, [facility] [address] [id number] [address] [place] [address], [place] [address] May, [facility] [address] [id number] [address] [place] [address], [place] [address] May, [facility] [address] [id number] [address] [place] [address], [place] [address] May, [facility] [address] [id number] [address] [place] [id number] May, [facility] [address] [id number] [address] [place] [id number] May, [facility] [address] [id number] [address] [place] [id number] May, [facility] [address] [id number] [address] [place] [address], [place] [address] Apr, [facility] [address] [id number] [address] [place] [address], [place] [address] Apr, [facility] [address] [id number] [address] [place] [id number] Apr, [facility] [address] [id number] [address] [place] [id number] Apr, [facility] [address] [id number] [address] [place] [address], [place] [address] Apr, [facility] [address] [id number] [address] [place] [address], [place] [address] Apr, [facility] [address] [id number] [address] [place] [address], [place] [address] 30 Mar, 2013 [facility] [address] [id number] [address] [place] [address], [place] [address] 26 Mar, 2013 [facility] [address] [id number] [address] [place] [address], [place] [address] 20 Mar, 2013 [facility] [address] [id number] [address] [place] [address], [place] [address] 17 Mar, 2013 [facility] [address] [id number] [address] [place] [address], [place] [address] 16 Mar, 2013 [facility] [address] [id number] [address] [place] [address], [place] [address] 05 Mar, 2013 [facility] [address] [id number] [address] [place] [address], [place] [address] Feb, [facility] [address] [id number] [address] [place] [address], [place] [address] Feb, [facility] [address] [id number] [address] [place] [address], [place] [address] Feb, [facility] [address] [id number] [address] [place] [address], [place] [address] Feb, [facility] [address] [id number] [address] [place] [address], [place] [address] Jan, [facility] [address] [id number] [address] [place] [address], [place] [address] Jan, [facility] [address] [id number] [address] [place] [address], [place] [address] Jan, [facility] [address] [id number] [address] [place] [address], [place] [address] 23 Jan, 2013 [facility] [address] [id number] [address] [place] [address], [place] [address] 16 Jan, 2013 [facility] [address] [id number] [address] [place] [address], [place] [address] Dec, [facility] [address] [id number] [address] [place] [address], [place] [address] Dec, [facility] [address] [id number] [address] [place] [address], [place] [address] Dec, [facility] [address] [id number] [address] [place] [address], [place] [address] November, [facility] [address] [id number] [address] [place] [address], [place] [address] November, [facility] [address] [id number] [address] [place] [address], [place] [address] November, [facility] [address] [id number] [address] [place] [address], [place] [address] Oct, [facility] [address] [id number] [address] [place] [address], [place] [address] Oct, [facility] [address] [id number] [address] [place] [address], [place] [address] Oct, [facility] [address] [id number] [address] [place] [address], [place] [address] Oct, [facility] [address] [id number] [address] [place] [address], [place] [address] 18 Oct, 2012 [facility] [address] [id number] [address] [place] [address], [place] [address] 17 Oct, 2012 [facility] [address] [id number] [address] [place] [address], [place] [address] 15 Oct, 2012 [facility] [address] [id number] [address] [place] [address], [place] [address] Sep, [facility] [address] [id number] [facility] [place] [address] Sep, [facility] [address] [id number] [address] [place] [address], [place] [address] Sep, [facility] [address] [id number] [address] [place] [address], [place] [address] Sep, [facility] [address] [id number] [address] [place] [address], [place] [address] Aug, [facility] [address] [id number] [address] [place] [address], [place] [address] Aug, [facility] [address] [id number] [address] [place] [address], [place] [address] Aug, [facility] [address] [id number] [address] [place] [address], [place] [address] Aug, [facility] [address] [id number] [address] [place] [address], [place] [address] Aug, [facility] [address] [id number] [address] [place] [address], [place] [address] Aug, [facility] [address] [id number] [address] [place] [address], [place] [address] Jul, [facility] [address] [id number] [address] [place] [address], [place] [address] Jul, [facility] [address] [id number] [address] [place] [address], [place] [address] Jul, [facility] [address] [id number] [address] [place] [address], [place] [address] Jul, [facility] [address] [id number] [address] [place] [address], [place] [address] Jul, [facility] [address] [id number] [address] [place] [address], [place] [address] Jul, [facility] [address] [id number] [address] [place] [address], [place] [address] Jun, [facility] [address] [id number] [address] [place] [address], [place] [address] Jun, [facility] [address] [id number] [address] [place] [address], [place] [address] Jun, [facility] [address] [id number] [address] [place] [address], [place] [address] Jun, [facility] [address] [id number] [address] [place] [address], [place] [address] Jun, [facility] [address] [id number] [address] [place] [address], [place] [address] Jun, [facility] [address] [id number] [address] [place] [address], [place] [address] May, [facility] [address] [id number] [address] [place] [address], [place] [address] May, [facility] [address] [id number] [address] [place] [address], [place] [address] May, [facility] [address] [id number] [address] [place] [address], [place] [address] May, [facility] [address] [id number] [address] [place] [address], [place] [address] May, [facility] [address] [id number] [address] [place] [address], [place] [address] May, [facility] [address] [id number] [address] [place] [address], [place] [address] May, [facility] [address] [id number] [address] [place] [address], [place] [address] May, [facility] [address] [id number] [address] [place] [address], [place] [address] May, [facility] [address] [id number] [address] [place] [address], [place] [address] May, [facility] [address] [id number] [address] [place] [address], [place] [address] 31 Apr, 2012 [facility] [address] [id number] [address] [place] [address], [place] [address] 31 Apr, 2012 [facility] [address] [id number] [address] [place] [address], [place] [address] 23 Apr, 2012 [facility] [address] [id number] [address] [place] [address], [place] [address] 23 Apr, 2012 [facility] [address] [id number] [address] [place] [address], [place] [address] 16 Apr, 2012 [facility] [address] [id number] [address] [place] [address], [place] [address] 16 Apr, 2012 [facility] [address] [id number] [address] [place] [address], [place] [address] 15 Apr, 2012 [facility] [address] [id number] [address] [place] [id number] 15 Apr, 2012 [facility] [address] [id number] [address] [place] [address], [place] [address] 05 Apr, 2012 [facility] [address] [id number] [address] [place] [id number] 28 Mar, 2012 [facility] [address] [id number] [address] [place] [id number] 26 Sep2011 [facility] [address] [id number] [address] [place] [id number] 25 Sep, 2011 [facility] [address] [id number] [address] [place] [id number] 19 Sep, 2011 [facility] [address] [id number] [address] [place] [id number] 18 Sep, 2011 [facility] [address] [id number] [address] [place] [id number] 05 Sep, 2011 [facility] [address] [id number] [address] [place] [id number] Feb, [facility] [address] [id number] [address] [place] [address], [place] [address] Feb, [facility] [address] [id number] [address] [place] [address], [place] [address] Feb, [facility] [address] [id number] [address] [place] [address], [place] [address] Jan, [facility] [address] [id number] [address] [place] [address], [place] [address] Jan, [facility] [address] [id number] [address] [place] [address], [place] [address] Jan, [facility] [address] [id number] [address] [place] [address], [place] [address] Jan, [facility] [address] [id number] [address] [place] [address], [place] [address] Dec, [facility] [address] [id number] [address] [place] [address], [place] [address] November, [facility] [address] [id number] [address] [place] [address], [place] [address] November, [facility] [address] [id number] [address] [place] [address], [place] [address] November, [facility] [address] [id number] [address] [place] [address], [place] [address] November, [facility] [address] [id number] [address] [place] [address], [place] [address] November, [facility] [address] [id number] [address] [place] [address], [place] [address] November, [facility] [address] [id number] [address] [place] [address], [place] [address] Oct, [facility] [address] [id number] [address] [place] [address], [place] [address] Oct, [facility] [address] [id number] [address] [place] [address], [place] [address] Sep, [facility] [address] [id number] [address] [place] [address], [place] [address] Sep, [facility] [address] [id number] [address] [place] [address], [place] [address] Sep, [facility] [address] [id number] [address] [place] [address], [place] [address] Aug, [facility] [address] [id number] [address] [place] [address], [place] [address] Aug, [facility] [address] [id number] [address] [place] [address], [place] [address] Aug, [facility] [address] [id number] [address] [place] [address], [place] [address] Aug, [facility] [address] [id number] [address] [place] [address], [place] [address] Aug, [facility] [address] [id number] [address] [place] [address], [place] [address] Aug, [facility] [address] [id number] [address] [place] [address], [place] [address] Jul, [facility] [address] [id number] [address] [place] [address], [place] [address] Jul, [facility] [address] [id number] [address] [place] [address], [place] [address] Jul, [facility] [address] [id number] [address] [place] [address], [place] [address] Jul, [facility] [address] [id number] [address] [place] [address], [place] [address] Jul, [facility] [address] [id number] [address] [place] [address], [place] [address] Jul, [facility] [address] [id number] [address] [place] [address], [place] [address] 17 Jul, 2011 [facility] [address] [id number] [address] [place] [address], [place] [address] Jul, [facility] [address] [id number] [address] [place] [address], [place] [address] Jul, [facility] [address] [id number] [address] [place] [address], [place] [address] Jul, [facility] [address] [id number] [address] [place] [address], [place] [address] Jun, [facility] [address] [id number] [address] [place] [address], [place] [address] Jun, [facility] [address] [id number] [address] [place] [address], [place] [address] Jun, [facility] [address] [id number] [address] [place] [address], [place] [address] Jun, [facility] [address] [id number] [address] [place] [address], [place] [address] May, [facility] [address] [id number] [address] [place] [address], [place] [address] May, [facility] [address] [id number] [address] [place] [address], [place] [address] May, [facility] [address] [id number] [address] [place] [address], [place] [address] May, [facility] [address] [id number] [address] [place] [address], [place] [address] Apr, [facility] [address] [id number] [address] [place] [address], [place] [address] Apr, [facility] [address] [id number] [address] [place] [address], [place] [address] November, [facility] [address] [id number] [address] [place] [address], [place] [address] 18 Oct, 2010 [facility] [address] [id number] [address] [place] [address], [place] [address] 17 Aug, 2010 [facility] [address] [id number] [address] [place] [address], [place] [address] 28 Jun, 2010 [facility] [address] [id number] [address] [place] [address], [place] [address] 28 Jun, 2010 [facility] [address] [id number] [address] [place] [address], [place] [address] 27 Jun, 2010 [facility] [address] [id number] [address] [place] [address], [place] [address] 03 Jun, 2010 [facility] [address] [id number] [address] [place] [address], [place] [address] 29 May, 2010 [facility] [address] [id number] [address] [place] [address], [place] [address] Apr, [facility] [address] [id number] [address] [place] [address], [place] [address] 13 Oct, 2009 [facility] [address] [id number] [address] [place] [address], [place] [address] 13 Aug, 2009 [facility] [address] [id number] [address] [place] [address], [place] [address] Jul, [facility] [address] [id number] [address] [place] [address], [place] [address] 22 Jun, 2009 [facility] [address] [id number] [address] [place] [address], [place] [address] 16 Jun, 2009 [facility] [address] [id number] [address] [place] [address], [place] [address] 14 Jun, 2009 [facility] [address] [id number] [address] [place] [address], [place] [address] 14 Jun, 2009 [facility] [address] [id number] [address] [place] [address], [place] [address] 09 May, 2009 [facility] [address] [id number] [address] [place] [address], [place] [address] Apr, [facility] [address] [facility] [id number] [address] [place] [id number] 15 Mar, 2009 [facility] [address] [facility] [id number] [address] [place] [id number] 14 Mar, 2009 [facility] [address] [facility] [id number] [address] [place] [id number] Dec, IMMUNIZATIONS No Known Immunizations SOCIAL HISTORY Never Assessed REASON FOR VISIT Controlled Med Refill 11/18/17 PLAN OF CARE VITAL SIGNS MEDICATIONS Medication [...]
--- OUTSIDE RECORDS SUMMARY | 2019-09-01 05:49 | XMS REPORT ---
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 [id number] [address] [place] [address], [place] [address] Apr, [facility] [address] [id number] [address] [place] [address], [place] [address] Apr, [facility] [address] [id number] [address] [place] [address], [place] [address] Apr, [facility] [address] [id number] [address] [place] [address], [place] [address] Apr, [facility] [address] [id number] [address] [place] [address], [place] [address] Apr, [facility] [address] [id number] [address] [place] [address], [place] [address] Apr, [facility] [address] [id number] [address] [place] [address], [place] [address] Apr, [facility] [address] [id number] [address] [place] [address], [place] [address] 29 Mar, 2013 [facility] [address] [id number] [address] [place] [address], [place] [address] 29 Mar, 2013 [facility] [address] [id number] [address] [place] [address], [place] [address] 29 Mar, 2013 [facility] [address] [id number] [address] [place] [address], [place] [address] 29 Mar, 2013 [facility] [address] [id number] [address] [place] [address], [place] [address] 10 Mar, 2013 [facility] [address] [id number] [address] [place] [address] 10 Mar, 2013 [facility] [address] [id number] [address] [place] [id number] Sep, 2013 [facility] [address] [id number] [address] [place] [address], [place] [address] 04 Sep, 2013 [facility] [address] [id number] [address] [place] [address], [place] [address] 02 Mar, 2013 [facility] [address] [id number] [address] [place] [address], [place] [address] Mar, 2013 [facility] [address] [id number] [address] [place] [address], [place] [address] Mar, [facility] [address] [id number] [address] [place] [address], [place] [address] Mar, [facility] [address] [id number] [address] [place] [address], [place] [address] Feb, [facility] [address] [id number] [address] [place] [address], [place] [address] Feb, [facility] [address] [id number] [address] [place] [address], [place] [address] Jan, [facility] [address] [id number] [address] [place] [address], [place] [address] Jan, [facility] [address] [id number] [address] [place] [address], [place] [address] Jan, [facility] [address] [id number] [address] [place] [address], [place] [address] Jan, [facility] [address] [id number] [address] [place] [address], [place] [address] Dec, [facility] [address] [id number] [address] [place] [address], [place] [address] Dec, [facility] [address] [id number] [address] [place] [address], [place] [address] Dec, [facility] [address] [id number] [address] [place] [address], [place] [address] Dec, [facility] [address] [id number] [address] [place] [address], [place] [address] Dec, [facility] [address] [id number] [address] [place] [address], [place] [address] Dec, [facility] [address] [id number] [address] [place] [address], [place] [address] November, [facility] [address] [id number] [address] [place] [address], [place] [address] November, [facility] [address] [id number] [address] [place] [address], [place] [address] November, [facility] [address] [id number] [address] [place] [address], [place] [address] November, [facility] [address] [id number] [address] [place] [address], [place] [address] November, [facility] [address] [id number] [address] [place] [address], [place] [address] November, [facility] [address] [facility] [id number] November, [facility] [address] [id number] [address] [place] [address], [place] [address] November, [facility] [address] [id number] [address] [place] [address], [place] [address] November, [facility] [address] [id number] [address] [place] [address], [place] [address] November, [facility] [address] [id number] [address] [place] [address], [place] [address] November, [facility] [address] [id number] [address] [place] [address], [place] [address] November, [facility] [address] [id number] [address] [place] [address], [place] [address] Oct, [facility] [address] [id number] [address] [place] [address], [place] [address] Oct, [facility] [address] [id number] [address] [place] [address], [place] [address] Oct, [facility] [address] [id number] [address] [place] [address], [place] [address] Oct, [facility] [address] [id number] [address] [place] [address], [place] [address] Oct, [facility] [address] [id number] [address] [place] [address], [place] [address] Oct, [facility] [address] [id number] [facility] [place] [address] Oct, [facility] [address] [id number] [facility] [place] [address] Oct, [facility] [address] [id number] [facility] [place] [address] Oct, [facility] [address] [id number] [address] [place] [address], [place] [address] Oct, [facility] [address] [id number] [address] [place] [address], [place] [address] Oct, [facility] [address] [id number] [address] [place] [address], [place] [address] Oct, [facility] [address] [id number] [address] [place] [address], [place] [address] Oct, [facility] [address] [id number] [address] [place] [address], [place] [address] Oct, [facility] [address] [id number] [address] [place] [address], [place] [address] Oct, [facility] [address] [id number] [address] [place] [address], [place] [address] Sep, [facility] [address] [id number] [address] [place] [address], [place] [address] Sep, [facility] [address] [id number] [address] [place] [address], [place] [address] Sep, [facility] [address] [id number] [address] [place] [address], [place] [address] Sep, [facility] [address] [id number] [address] [place] [address], [place] [address] Aug, [facility] [address] [id number] [address] [place] [address], [place] [address] Aug, [facility] [address] [id number] [address] [place] [address], [place] [address] Aug, [facility] [address] [id number] [address] [place] [address], [place] [address] Aug, [facility] [address] [id number] [address] [place] [address], [place] [address] Jul, [facility] [address] [id number] [address] [place] [address], [place] [address] Jul, [facility] [address] [id number] [address] [place] [address], [place] [address] Jul, [facility] [address] [id number] [address] [place] [address], [place] [address] Jul, [facility] [address] [id number] [address] [place] [address], [place] [address] Jul, [facility] [address] [id number] [address] [place] [address], [place] [address] Jul, [facility] [address] [id number] [address] [place] [address], [place] [address] Jul, [facility] [address] [id number] [address] [place] [address], [place] [address] Jul, [facility] [address] [id number] [address] [place] [address], [place] [address] Jul, [facility] [address] [id number] [address] [place] [address], [place] [address] Jul, [facility] [address] [id number] [address] [place] [address], [place] [address] Jul, [facility] [address] [id number] [address] [place] [address], [place] [address] Jul, [facility] [address] [id number] [address] [place] [address], [place] [address] Jul, [facility] [address] [id number] [address] [place] [address], [place] [address] Jul, [facility] [address] [id number] [address] [place] [address], [place] [address] Jun, [facility] [address] [id number] [address] [place] [address], [place] [address] Jun, [facility] [address] [id number] [address] [place] [address], [place] [address] Jun, [facility] [address] [id number] [address] [place] [address], [place] [address] Jun, [facility] [address] [id number] [address] [place] [address], [place] [address] May, [facility] [address] [id number] [address] [place] [address], [place] [address] May, [facility] [address] [id number] [address] [place] [address], [place] [address] May, [facility] [address] [id number] [address] [place] [address], [place] [address] May, [facility] [address] [id number] [address] [place] [address], [place] [address] May, [facility] [address] [id number] [address] [place] [id number] May, [facility] [address] [id number] [address] [place] [id number] May, [facility] [address] [id number] [address] [place] [id number] May, [facility] [address] [id number] [address] [place] [address], [place] [address] Apr, [facility] [address] [id number] [address] [place] [address], [place] [address] Apr, [facility] [address] [id number] [address] [place] [id number] Apr, [facility] [address] [id number] [address] [place] [id number] Apr, [facility] [address] [id number] [address] [place] [address], [place] [address] Apr, [facility] [address] [id number] [address] [place] [address], [place] [address] Apr, [facility] [address] [id number] [address] [place] [address], [place] [address] 30 Mar, 2013 [facility] [address] [id number] [address] [place] [address], [place] [address] 26 Mar, 2013 [facility] [address] [id number] [address] [place] [address], [place] [address] 20 Mar, 2013 [facility] [address] [id number] [address] [place] [address], [place] [address] 17 Mar, 2013 [facility] [address] [id number] [address] [place] [address], [place] [address] 16 Mar, 2013 [facility] [address] [id number] [address] [place] [address], [place] [address] 05 Mar, 2013 [facility] [address] [id number] [address] [place] [address], [place] [address] Feb, [facility] [address] [id number] [address] [place] [address], [place] [address] Feb, [facility] [address] [id number] [address] [place] [address], [place] [address] Feb, [facility] [address] [id number] [address] [place] [address], [place] [address] Feb, [facility] [address] [id number] [address] [place] [address], [place] [address] Jan, [facility] [address] [id number] [address] [place] [address], [place] [address] Jan, [facility] [address] [id number] [address] [place] [address], [place] [address] Jan, [facility] [address] [id number] [address] [place] [address], [place] [address] 23 Jan, 2013 [facility] [address] [id number] [address] [place] [address], [place] [address] 16 Jan, 2013 [facility] [address] [id number] [address] [place] [address], [place] [address] Dec, [facility] [address] [id number] [address] [place] [address], [place] [address] Dec, [facility] [address] [id number] [address] [place] [address], [place] [address] Dec, [facility] [address] [id number] [address] [place] [address], [place] [address] November, [facility] [address] [id number] [address] [place] [address], [place] [address] November, [facility] [address] [id number] [address] [place] [address], [place] [address] November, [facility] [address] [id number] [address] [place] [address], [place] [address] Oct, [facility] [address] [id number] [address] [place] [address], [place] [address] Oct, [facility] [address] [id number] [address] [place] [address], [place] [address] Oct, [facility] [address] [id number] [address] [place] [address], [place] [address] Oct, [facility] [address] [id number] [address] [place] [address], [place] [address] 18 Oct, 2012 [facility] [address] [id number] [address] [place] [address], [place] [address] 17 Oct, 2012 [facility] [address] [id number] [address] [place] [address], [place] [address] 15 Oct, 2012 [facility] [address] [id number] [address] [place] [address], [place] [address] Sep, [facility] [address] [id number] [facility] [place] [address] Sep, [facility] [address] [id number] [address] [place] [address], [place] [address] Sep, [facility] [address] [id number] [address] [place] [address], [place] [address] Sep, [facility] [address] [id number] [address] [place] [address], [place] [address] Aug, [facility] [address] [id number] [address] [place] [address], [place] [address] Aug, [facility] [address] [id number] [address] [place] [address], [place] [address] Aug, [facility] [address] [id number] [address] [place] [address], [place] [address] Aug, [facility] [address] [id number] [address] [place] [address], [place] [address] Aug, [facility] [address] [id number] [address] [place] [address], [place] [address] Aug, [facility] [address] [id number] [address] [place] [address], [place] [address] Jul, [facility] [address] [id number] [address] [place] [address], [place] [address] Jul, [facility] [address] [id number] [address] [place] [address], [place] [address] Jul, [facility] [address] [id number] [address] [place] [address], [place] [address] Jul, [facility] [address] [id number] [address] [place] [address], [place] [address] Jul, [facility] [address] [id number] [address] [place] [address], [place] [address] Jul, [facility] [address] [id number] [address] [place] [address], [place] [address] Jun, [facility] [address] [id number] [address] [place] [address], [place] [address] Jun, [facility] [address] [id number] [address] [place] [address], [place] [address] Jun, [facility] [address] [id number] [address] [place] [address], [place] [address] Jun, [facility] [address] [id number] [address] [place] [address], [place] [address] Jun, [facility] [address] [id number] [address] [place] [address], [place] [address] Jun, [facility] [address] [id number] [address] [place] [address], [place] [address] May, [facility] [address] [id number] [address] [place] [address], [place] [address] May, [facility] [address] [id number] [address] [place] [address], [place] [address] May, [facility] [address] [id number] [address] [place] [address], [place] [address] May, [facility] [address] [id number] [address] [place] [address], [place] [address] May, [facility] [address] [id number] [address] [place] [address], [place] [address] May, [facility] [address] [id number] [address] [place] [address], [place] [address] May, [facility] [address] [id number] [address] [place] [address], [place] [address] May, [facility] [address] [id number] [address] [place] [address], [place] [address] May, [facility] [address] [id number] [address] [place] [address], [place] [address] May, [facility] [address] [id number] [address] [place] [address], [place] [address] 31 Apr, 2012 [facility] [address] [id number] [address] [place] [address], [place] [address] 31 Apr, 2012 [facility] [address] [id number] [address] [place] [address], [place] [address] 23 Apr, 2012 [facility] [address] [id number] [address] [place] [address], [place] [address] 23 Apr, 2012 [facility] [address] [id number] [address] [place] [address], [place] [address] 16 Apr, 2012 [facility] [address] [id number] [address] [place] [address], [place] [address] 16 Apr, 2012 [facility] [address] [id number] [address] [place] [address], [place] [address] 15 Apr, 2012 [facility] [address] [id number] [address] [place] [id number] 15 Apr, 2012 [facility] [address] [id number] [address] [place] [address], [place] [address] 05 Apr, 2012 [facility] [address] [id number] [address] [place] [id number] 28 Mar, 2012 [facility] [address] [id number] [address] [place] [id number] 26 Sep2011 [facility] [address] [id number] [address] [place] [id number] 25 Sep, 2011 [facility] [address] [id number] [address] [place] [id number] 19 Sep, 2011 [facility] [address] [id number] [address] [place] [id number] 18 Sep, 2011 [facility] [address] [id number] [address] [place] [id number] 05 Sep, 2011 [facility] [address] [id number] [address] [place] [id number] Feb, [facility] [address] [id number] [address] [place] [address], [place] [address] Feb, [facility] [address] [id number] [address] [place] [address], [place] [address] Feb, [facility] [address] [id number] [address] [place] [address], [place] [address] Jan, [facility] [address] [id number] [address] [place] [address], [place] [address] Jan, [facility] [address] [id number] [address] [place] [address], [place] [address] Jan, [facility] [address] [id number] [address] [place] [address], [place] [address] Jan, [facility] [address] [id number] [address] [place] [address], [place] [address] Dec, [facility] [address] [id number] [address] [place] [address], [place] [address] November, [facility] [address] [id number] [address] [place] [address], [place] [address] November, [facility] [address] [id number] [address] [place] [address], [place] [address] November, [facility] [address] [id number] [address] [place] [address], [place] [address] November, [facility] [address] [id number] [address] [place] [address], [place] [address] November, [facility] [address] [id number] [address] [place] [address], [place] [address] November, [facility] [address] [id number] [address] [place] [address], [place] [address] Oct, [facility] [address] [id number] [address] [place] [address], [place] [address] Oct, [facility] [address] [id number] [address] [place] [address], [place] [address] Sep, [facility] [address] [id number] [address] [place] [address], [place] [address] Sep, [facility] [address] [id number] [address] [place] [address], [place] [address] Sep, [facility] [address] [id number] [address] [place] [address], [place] [address] Aug, [facility] [address] [id number] [address] [place] [address], [place] [address] Aug, [facility] [address] [id number] [address] [place] [address], [place] [address] Aug, [facility] [address] [id number] [address] [place] [address], [place] [address] Aug, [facility] [address] [id number] [address] [place] [address], [place] [address] Aug, [facility] [address] [id number] [address] [place] [address], [place] [address] Aug, [facility] [address] [id number] [address] [place] [address], [place] [address] Jul, [facility] [address] [id number] [address] [place] [address], [place] [address] Jul, [facility] [address] [id number] [address] [place] [address], [place] [address] Jul, [facility] [address] [id number] [address] [place] [address], [place] [address] Jul, [facility] [address] [id number] [address] [place] [address], [place] [address] Jul, [facility] [address] [id number] [address] [place] [address], [place] [address] Jul, [facility] [address] [id number] [address] [place] [address], [place] [address] 17 Jul, 2011 [facility] [address] [id number] [address] [place] [address], [place] [address] Jul, [facility] [address] [id number] [address] [place] [address], [place] [address] Jul, [facility] [address] [id number] [address] [place] [address], [place] [address] Jul, [facility] [address] [id number] [address] [place] [address], [place] [address] Jun, [facility] [address] [id number] [address] [place] [address], [place] [address] Jun, [facility] [address] [id number] [address] [place] [address], [place] [address] Jun, [facility] [address] [id number] [address] [place] [address], [place] [address] Jun, [facility] [address] [id number] [address] [place] [address], [place] [address] May, [facility] [address] [id number] [address] [place] [address], [place] [address] May, [facility] [address] [id number] [address] [place] [address], [place] [address] May, [facility] [address] [id number] [address] [place] [address], [place] [address] May, [facility] [address] [id number] [address] [place] [address], [place] [address] Apr, [facility] [address] [id number] [address] [place] [address], [place] [address] Apr, [facility] [address] [id number] [address] [place] [address], [place] [address] November, [facility] [address] [id number] [address] [place] [address], [place] [address] 18 Oct, 2010 [facility] [address] [id number] [address] [place] [address], [place] [address] 17 Aug, 2010 [facility] [address] [id number] [address] [place] [address], [place] [address] 28 Jun, 2010 [facility] [address] [id number] [address] [place] [address], [place] [address] 28 Jun, 2010 [facility] [address] [id number] [address] [place] [address], [place] [address] 27 Jun, 2010 [facility] [address] [id number] [address] [place] [address], [place] [address] 03 Jun, 2010 [facility] [address] [id number] [address] [place] [address], [place] [address] 29 May, 2010 [facility] [address] [id number] [address] [place] [address], [place] [address] Apr, [facility] [address] [id number] [address] [place] [address], [place] [address] 13 Oct, 2009 [facility] [address] [id number] [address] [place] [address], [place] [address] 13 Aug, 2009 [facility] [address] [id number] [address] [place] [address], [place] [address] Jul, [facility] [address] [id number] [address] [place] [address], [place] [address] 22 Jun, 2009 [facility] [address] [id number] [address] [place] [address], [place] [address] 16 Jun, 2009 [facility] [address] [id number] [address] [place] [address], [place] [address] 14 Jun, 2009 [facility] [address] [id number] [address] [place] [address], [place] [address] 14 Jun, 2009 [facility] [address] [id number] [address] [place] [address], [place] [address] 09 May, 2009 [facility] [address] [id number] [address] [place] [address], [place] [address] Apr, [facility] [address] [facility] [id number] [address] [place] [id number] 15 Mar, 2009 [facility] [address] [facility] [id number] [address] [place] [id number] 14 Mar, 2009 [facility] [address] [facility] [id number] [address] [place] [address] Dec, IMMUNIZATIONS No Known Immunizations SOCIAL HISTORY Never Assessed REASON FOR VISIT Controlled Med Refill 12/17/17 PLAN OF CARE VITAL SIGNS MEDICATIONS Medication [...]
--- OUTSIDE RECORDS SUMMARY | 2019-09-01 05:50 | XMS REPORT ---
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 [address], [place] [address] Apr, [facility] [address] [id number] [address] [place] [address], [place] [address] Apr, [facility] [address] [id number] [address] [place] [address], [place] [address] Apr, [facility] [address] [id number] [address] [place] [address], [place] [address] Apr, [facility] [address] [id number] [address] [place] [address], [place] [address] Apr, [facility] [address] [id number] [address] [place] [address], [place] [address] Apr, [facility] [address] [id number] [address] [place] [address], [place] [address] Apr, [facility] [address] [id number] [address] [place] [address], [place] [address] Apr, [facility] [address] [id number] [address] [place] [address], [place] [address] 29 Mar, 2013 [facility] [address] [id number] [address] [place] [address], [place] [address] 29 Mar, 2013 [facility] [address] [id number] [address] [place] [address], [place] [address] 29 Mar, 2013 [facility] [address] [id number] [address] [place] [address], [place] [address] 29 Mar, 2013 [facility] [address] [id number] [address] [place] [address], [place] [address] 10 Mar, 2013 [facility] [address] [id number] [address] [place] [address] 10 Mar, 2013 [facility] [address] [id number] [address] [place] [address] Sep, 2013 [facility] [address] [id number] [address] [place] [address], [place] [address] 04 Sep, 2013 [facility] [address] [id number] [address] [place] [address], [place] [address] 02 Mar, 2013 [facility] [address] [id number] [address] [place] [address], [place] [address] Mar, 2013 [facility] [address] [id number] [address] [place] [address], [place] [address] Mar, [facility] [address] [id number] [address] [place] [address], [place] [address] Mar, [facility] [address] [id number] [address] [place] [address], [place] [address] Feb, [facility] [address] [id number] [address] [place] [address], [place] [address] Feb, [facility] [address] [id number] [address] [place] [address], [place] [address] Jan, [facility] [address] [id number] [address] [place] [address], [place] [address] Jan, [facility] [address] [id number] [address] [place] [address], [place] [address] Jan, [facility] [address] [id number] [address] [place] [address], [place] [address] Jan, [facility] [address] [id number] [address] [place] [address], [place] [address] Dec, [facility] [address] [id number] [address] [place] [address], [place] [address] Dec, [facility] [address] [id number] [address] [place] [address], [place] [address] Dec, [facility] [address] [id number] [address] [place] [address], [place] [address] Dec, [facility] [address] [id number] [address] [place] [address], [place] [address] Dec, [facility] [address] [id number] [address] [place] [address], [place] [address] Dec, [facility] [address] [id number] [address] [place] [address], [place] [address] November, [facility] [address] [id number] [address] [place] [address], [place] [address] November, [facility] [address] [id number] [address] [place] [address], [place] [address] November, [facility] [address] [id number] [address] [place] [address], [place] [address] November, [facility] [address] [id number] [address] [place] [address], [place] [address] November, [facility] [address] [id number] [address] [place] [address], [place] [address] November, [facility] [address] [facility] [id number] November, [facility] [address] [id number] [address] [place] [address], [place] [address] November, [facility] [address] [id number] [address] [place] [address], [place] [address] November, [facility] [address] [id number] [address] [place] [address], [place] [address] November, [facility] [address] [id number] [address] [place] [address], [place] [address] November, [facility] [address] [id number] [address] [place] [address], [place] [address] November, [facility] [address] [id number] [address] [place] [address], [place] [address] Oct, [facility] [address] [id number] [address] [place] [address], [place] [address] Oct, [facility] [address] [id number] [address] [place] [address], [place] [address] Oct, [facility] [address] [id number] [address] [place] [address], [place] [address] Oct, [facility] [address] [id number] [address] [place] [address], [place] [address] Oct, [facility] [address] [id number] [address] [place] [address], [place] [address] Oct, [facility] [address] [id number] [facility] [place] [address] Oct, [facility] [address] [id number] [facility] [place] [address] Oct, [facility] [address] [id number] [facility] [place] [address] Oct, [facility] [address] [id number] [address] [place] [address], [place] [address] Oct, [facility] [address] [id number] [address] [place] [address], [place] [address] Oct, [facility] [address] [id number] [address] [place] [address], [place] [address] Oct, [facility] [address] [id number] [address] [place] [address], [place] [address] Oct, [facility] [address] [id number] [address] [place] [address], [place] [address] Oct, [facility] [address] [id number] [address] [place] [address], [place] [address] Oct, [facility] [address] [id number] [address] [place] [address], [place] [address] Sep, [facility] [address] [id number] [address] [place] [address], [place] [address] Sep, [facility] [address] [id number] [address] [place] [address], [place] [address] Sep, [facility] [address] [id number] [address] [place] [address], [place] [address] Sep, [facility] [address] [id number] [address] [place] [address], [place] [address] Aug, [facility] [address] [id number] [address] [place] [address], [place] [address] Aug, [facility] [address] [id number] [address] [place] [address], [place] [address] Aug, [facility] [address] [id number] [address] [place] [address], [place] [address] Aug, [facility] [address] [id number] [address] [place] [address], [place] [address] Jul, [facility] [address] [id number] [address] [place] [address], [place] [address] Jul, [facility] [address] [id number] [address] [place] [address], [place] [address] Jul, [facility] [address] [id number] [address] [place] [address], [place] [address] Jul, [facility] [address] [id number] [address] [place] [address], [place] [address] Jul, [facility] [address] [id number] [address] [place] [address], [place] [address] Jul, [facility] [address] [id number] [address] [place] [address], [place] [address] Jul, [facility] [address] [id number] [address] [place] [address], [place] [address] Jul, [facility] [address] [id number] [address] [place] [address], [place] [address] Jul, [facility] [address] [id number] [address] [place] [address], [place] [address] Jul, [facility] [address] [id number] [address] [place] [address], [place] [address] Jul, [facility] [address] [id number] [address] [place] [address], [place] [address] Jul, [facility] [address] [id number] [address] [place] [address], [place] [address] Jul, [facility] [address] [id number] [address] [place] [address], [place] [address] Jul, [facility] [address] [id number] [address] [place] [address], [place] [address] Jun, [facility] [address] [id number] [address] [place] [address], [place] [address] Jun, [facility] [address] [id number] [address] [place] [address], [place] [address] Jun, [facility] [address] [id number] [address] [place] [address], [place] [address] Jun, [facility] [address] [id number] [address] [place] [address], [place] [address] May, [facility] [address] [id number] [address] [place] [address], [place] [address] May, [facility] [address] [id number] [address] [place] [address], [place] [address] May, [facility] [address] [id number] [address] [place] [address], [place] [address] May, [facility] [address] [id number] [address] [place] [address], [place] [address] May, [facility] [address] [id number] [address] [place] [address] May, [facility] [address] [id number] [address] [place] [id number] May, [facility] [address] [id number] [address] [place] [address] May, [facility] [address] [id number] [address] [place] [address], [place] [address] Apr, [facility] [address] [id number] [address] [place] [address], [place] [address] Apr, [facility] [address] [id number] [address] [place] [address] Apr, [facility] [address] [id number] [address] [place] [id number] Apr, [facility] [address] [id number] [address] [place] [address], [place] [address] Apr, [facility] [address] [id number] [address] [place] [address], [place] [address] Apr, [facility] [address] [id number] [address] [place] [address], [place] [address] 30 Mar, 2013 [facility] [address] [id number] [address] [place] [address], [place] [address] 26 Mar, 2013 [facility] [address] [id number] [address] [place] [address], [place] [address] 20 Mar, 2013 [facility] [address] [id number] [address] [place] [address], [place] [address] 17 Mar, 2013 [facility] [address] [id number] [address] [place] [address], [place] [address] 16 Mar, 2013 [facility] [address] [id number] [address] [place] [address], [place] [address] 05 Mar, 2013 [facility] [address] [id number] [address] [place] [address], [place] [address] Feb, [facility] [address] [id number] [address] [place] [address], [place] [address] Feb, [facility] [address] [id number] [address] [place] [address], [place] [address] Feb, [facility] [address] [id number] [address] [place] [address], [place] [address] Feb, [facility] [address] [id number] [address] [place] [address], [place] [address] Jan, [facility] [address] [id number] [address] [place] [address], [place] [address] Jan, [facility] [address] [id number] [address] [place] [address], [place] [address] Jan, [facility] [address] [id number] [address] [place] [address], [place] [address] 23 Jan, 2013 [facility] [address] [id number] [address] [place] [address], [place] [address] 16 Jan, 2013 [facility] [address] [id number] [address] [place] [address], [place] [address] Dec, [facility] [address] [id number] [address] [place] [address], [place] [address] Dec, [facility] [address] [id number] [address] [place] [address], [place] [address] Dec, [facility] [address] [id number] [address] [place] [address], [place] [address] November, [facility] [address] [id number] [address] [place] [address], [place] [address] November, [facility] [address] [id number] [address] [place] [address], [place] [address] November, [facility] [address] [id number] [address] [place] [address], [place] [address] Oct, [facility] [address] [id number] [address] [place] [address], [place] [address] Oct, [facility] [address] [id number] [address] [place] [address], [place] [address] Oct, [facility] [address] [id number] [address] [place] [address], [place] [address] Oct, [facility] [address] [id number] [address] [place] [address], [place] [address] 18 Oct, 2012 [facility] [address] [id number] [address] [place] [address], [place] [address] 17 Oct, 2012 [facility] [address] [id number] [address] [place] [address], [place] [address] 15 Oct, 2012 [facility] [address] [id number] [address] [place] [address], [place] [address] Sep, [facility] [address] [id number] [facility] [place] [address] Sep, [facility] [address] [id number] [address] [place] [address], [place] [address] Sep, [facility] [address] [id number] [address] [place] [address], [place] [address] Sep, [facility] [address] [id number] [address] [place] [address], [place] [address] Aug, [facility] [address] [id number] [address] [place] [address], [place] [address] Aug, [facility] [address] [id number] [address] [place] [address], [place] [address] Aug, [facility] [address] [id number] [address] [place] [address], [place] [address] Aug, [facility] [address] [id number] [address] [place] [address], [place] [address] Aug, [facility] [address] [id number] [address] [place] [address], [place] [address] Aug, [facility] [address] [id number] [address] [place] [address], [place] [address] Jul, [facility] [address] [id number] [address] [place] [address], [place] [address] Jul, [facility] [address] [id number] [address] [place] [address], [place] [address] Jul, [facility] [address] [id number] [address] [place] [address], [place] [address] Jul, [facility] [address] [id number] [address] [place] [address], [place] [address] Jul, [facility] [address] [id number] [address] [place] [address], [place] [address] Jul, [facility] [address] [id number] [address] [place] [address], [place] [address] Jun, [facility] [address] [id number] [address] [place] [address], [place] [address] Jun, [facility] [address] [id number] [address] [place] [address], [place] [address] Jun, [facility] [address] [id number] [address] [place] [address], [place] [address] Jun, [facility] [address] [id number] [address] [place] [address], [place] [address] Jun, [facility] [address] [id number] [address] [place] [address], [place] [address] Jun, [facility] [address] [id number] [address] [place] [address], [place] [address] May, [facility] [address] [id number] [address] [place] [address], [place] [address] May, [facility] [address] [id number] [address] [place] [address], [place] [address] May, [facility] [address] [id number] [address] [place] [address], [place] [address] May, [facility] [address] [id number] [address] [place] [address], [place] [address] May, [facility] [address] [id number] [address] [place] [address], [place] [address] May, [facility] [address] [id number] [address] [place] [address], [place] [address] May, [facility] [address] [id number] [address] [place] [address], [place] [address] May, [facility] [address] [id number] [address] [place] [address], [place] [address] May, [facility] [address] [id number] [address] [place] [address], [place] [address] May, [facility] [address] [id number] [address] [place] [address], [place] [address] 31 Apr, 2012 [facility] [address] [id number] [address] [place] [address], [place] [address] 31 Apr, 2012 [facility] [address] [id number] [address] [place] [address], [place] [address] 23 Apr, 2012 [facility] [address] [id number] [address] [place] [address], [place] [address] 23 Apr, 2012 [facility] [address] [id number] [address] [place] [address], [place] [address] 16 Apr, 2012 [facility] [address] [id number] [address] [place] [address], [place] [address] 16 Apr, 2012 [facility] [address] [id number] [address] [place] [address], [place] [address] 15 Apr, 2012 [facility] [address] [id number] [address] [place] [address] 15 Apr, 2012 [facility] [address] [id number] [address] [place] [address], [place] [address] 05 Apr, 2012 [facility] [address] [id number] [address] [place] [id number] 28 Mar, 2012 [facility] [address] [id number] [address] [place] [address] 26 Sep2011 [facility] [address] [id number] [address] [place] [id number] 25 Sep, 2011 [facility] [address] [id number] [address] [place] [address] 19 Sep, 2011 [facility] [address] [id number] [address] [place] [id number] 18 Sep, 2011 [facility] [address] [id number] [address] [place] [address] 05 Sep, 2011 [facility] [address] [id number] [address] [place] [address] Feb, [facility] [address] [id number] [address] [place] [address], [place] [address] Feb, [facility] [address] [id number] [address] [place] [address], [place] [address] Feb, [facility] [address] [id number] [address] [place] [address], [place] [address] Jan, [facility] [address] [id number] [address] [place] [address], [place] [address] Jan, [facility] [address] [id number] [address] [place] [address], [place] [address] Jan, [facility] [address] [id number] [address] [place] [address], [place] [address] Jan, [facility] [address] [id number] [address] [place] [address], [place] [address] Dec, [facility] [address] [id number] [address] [place] [address], [place] [address] November, [facility] [address] [id number] [address] [place] [address], [place] [address] November, [facility] [address] [id number] [address] [place] [address], [place] [address] November, [facility] [address] [id number] [address] [place] [address], [place] [address] November, [facility] [address] [id number] [address] [place] [address], [place] [address] November, [facility] [address] [id number] [address] [place] [address], [place] [address] November, [facility] [address] [id number] [address] [place] [address], [place] [address] Oct, [facility] [address] [id number] [address] [place] [address], [place] [address] Oct, [facility] [address] [id number] [address] [place] [address], [place] [address] Sep, [facility] [address] [id number] [address] [place] [address], [place] [address] Sep, [facility] [address] [id number] [address] [place] [address], [place] [address] Sep, [facility] [address] [id number] [address] [place] [address], [place] [address] Aug, [facility] [address] [id number] [address] [place] [address], [place] [address] Aug, [facility] [address] [id number] [address] [place] [address], [place] [address] Aug, [facility] [address] [id number] [address] [place] [address], [place] [address] Aug, [facility] [address] [id number] [address] [place] [address], [place] [address] Aug, [facility] [address] [id number] [address] [place] [address], [place] [address] Aug, [facility] [address] [id number] [address] [place] [address], [place] [address] Jul, [facility] [address] [id number] [address] [place] [address], [place] [address] Jul, [facility] [address] [id number] [address] [place] [address], [place] [address] Jul, [facility] [address] [id number] [address] [place] [address], [place] [address] Jul, [facility] [address] [id number] [address] [place] [address], [place] [address] Jul, [facility] [address] [id number] [address] [place] [address], [place] [address] Jul, [facility] [address] [id number] [address] [place] [address], [place] [address] 17 Jul, 2011 [facility] [address] [id number] [address] [place] [address], [place] [address] Jul, [facility] [address] [id number] [address] [place] [address], [place] [address] Jul, [facility] [address] [id number] [address] [place] [address], [place] [address] Jul, [facility] [address] [id number] [address] [place] [address], [place] [address] Jun, [facility] [address] [id number] [address] [place] [address], [place] [address] Jun, [facility] [address] [id number] [address] [place] [address], [place] [address] Jun, [facility] [address] [id number] [address] [place] [address], [place] [address] Jun, [facility] [address] [id number] [address] [place] [address], [place] [address] May, [facility] [address] [id number] [address] [place] [address], [place] [address] May, [facility] [address] [id number] [address] [place] [address], [place] [address] May, [facility] [address] [id number] [address] [place] [address], [place] [address] May, [facility] [address] [id number] [address] [place] [address], [place] [address] Apr, [facility] [address] [id number] [address] [place] [address], [place] [address] Apr, [facility] [address] [id number] [address] [place] [address], [place] [address] November, [facility] [address] [id number] [address] [place] [address], [place] [address] 18 Oct, 2010 [facility] [address] [id number] [address] [place] [address], [place] [address] 17 Aug, 2010 [facility] [address] [id number] [address] [place] [address], [place] [address] 28 Jun, 2010 [facility] [address] [id number] [address] [place] [address], [place] [address] 28 Jun, 2010 [facility] [address] [id number] [address] [place] [address], [place] [address] 27 Jun, 2010 [facility] [address] [id number] [address] [place] [address], [place] [address] 03 Jun, 2010 [facility] [address] [id number] [address] [place] [address], [place] [address] 29 May, 2010 [facility] [address] [id number] [address] [place] [address], [place] [address] Apr, [facility] [address] [id number] [address] [place] [address], [place] [address] 13 Oct, 2009 [facility] [address] [id number] [address] [place] [address], [place] [address] 13 Aug, 2009 [facility] [address] [id number] [address] [place] [address], [place] [address] Jul, [facility] [address] [id number] [address] [place] [address], [place] [address] 22 Jun, 2009 [facility] [address] [id number] [address] [place] [address], [place] [address] 16 Jun, 2009 [facility] [address] [id number] [address] [place] [address], [place] [address] 14 Jun, 2009 [facility] [address] [id number] [address] [place] [address], [place] [address] 14 Jun, 2009 [facility] [address] [id number] [address] [place] [address], [place] [address] 09 May, 2009 [facility] [address] [id number] [address] [place] [address], [place] [address] Apr, [facility] [address] [facility] [id number] [address] [place] [address] 15 Mar, 2009 [facility] [address] [facility] [id number] [address] [place] [address] 14 Mar, 2009 [facility] [address] [facility] [id number] [address] [place] [address] Dec, IMMUNIZATIONS No Known Immunizations SOCIAL HISTORY Never Assessed REASON FOR VISIT Controlled Med Refill 09/24/17 PLAN OF CARE VITAL SIGNS MEDICATIONS Medication [...]
--- OUTSIDE RECORDS SUMMARY | 2019-09-01 05:50 | XMS REPORT ---
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 Jun, [facility] [address] [id number] [address] [place] [address], [place] [address] Jun, [facility] [address] [id number] [address] [place] [address], [place] [address] Jun, [facility] [address] [id number] [address] [place] [address], [place] [address] Jun, [facility] [address] [id number] [address] [place] [address], [place] [address] Jun, [facility] [address] [id number] [address] [place] [address], [place] [address] Jun, [facility] [address] [id number] [address] [place] [address], [place] [address] Jun, [facility] [address] [id number] [address] [place] [address], [place] [address] Jun, [facility] [address] [id number] [address] [place] [address], [place] [address] May, [facility] [address] [id number] [address] [place] [address], [place] [address] May, [facility] [address] [id number] [address] [place] [address], [place] [address] May, [facility] [address] [id number] [address] [place] [address], [place] [address] May, [facility] [address] [id number] [address] [place] [address], [place] [address] Apr, [facility] [address] [id number] [address] [place] [address], [place] [address] Apr, [facility] [address] [id number] [address] [place] [address], [place] [address] Apr, [facility] [address] [id number] [address] [place] [address], [place] [address] Apr, [facility] [address] [id number] [address] [place] [address], [place] [address] Apr, [facility] [address] [id number] [address] [place] [address], [place] [address] Apr, [facility] [address] [id number] [address] [place] [address], [place] [address] Apr, [facility] [address] [id number] [address] [place] [address], [place] [address] Apr, [facility] [address] [id number] [address] [place] [address], [place] [address] Apr, [facility] [address] [id number] [address] [place] [address], [place] [address] Apr, [facility] [address] [id number] [address] [place] [address], [place] [address] 29 Mar, 2013 [facility] [address] [id number] [address] [place] [address], [place] [address] 29 Mar, 2013 [facility] [address] [id number] [address] [place] [address], [place] [address] 29 Mar, 2013 [facility] [address] [id number] [address] [place] [address], [place] [address] 29 Mar, 2013 [facility] [address] [id number] [address] [place] [address], [place] [address] 10 Mar, 2013 [facility] [address] [id number] [address] [place] [address] 10 Mar, 2013 [facility] [address] [id number] [address] [place] [address] Sep, 2013 [facility] [address] [id number] [address] [place] [address], [place] [address] 04 Sep, 2013 [facility] [address] [id number] [address] [place] [address], [place] [address] 02 Mar, 2013 [facility] [address] [id number] [address] [place] [address], [place] [address] Mar, 2013 [facility] [address] [id number] [address] [place] [address], [place] [address] Mar, [facility] [address] [id number] [address] [place] [address], [place] [address] Mar, [facility] [address] [id number] [address] [place] [address], [place] [address] Feb, [facility] [address] [id number] [address] [place] [address], [place] [address] Feb, [facility] [address] [id number] [address] [place] [address], [place] [address] Jan, [facility] [address] [id number] [address] [place] [address], [place] [address] Jan, [facility] [address] [id number] [address] [place] [address], [place] [address] Jan, [facility] [address] [id number] [address] [place] [address], [place] [address] Jan, [facility] [address] [id number] [address] [place] [address], [place] [address] Dec, [facility] [address] [id number] [address] [place] [address], [place] [address] Dec, [facility] [address] [id number] [address] [place] [address], [place] [address] Dec, [facility] [address] [id number] [address] [place] [address], [place] [address] Dec, [facility] [address] [id number] [address] [place] [address], [place] [address] Dec, [facility] [address] [id number] [address] [place] [address], [place] [address] Dec, [facility] [address] [id number] [address] [place] [address], [place] [address] November, [facility] [address] [id number] [address] [place] [address], [place] [address] November, [facility] [address] [id number] [address] [place] [address], [place] [address] November, [facility] [address] [id number] [address] [place] [address], [place] [address] November, [facility] [address] [id number] [address] [place] [address], [place] [address] November, [facility] [address] [id number] [address] [place] [address], [place] [address] November, [facility] [address] [facility] [id number] November, [facility] [address] [id number] [address] [place] [address], [place] [address] November, [facility] [address] [id number] [address] [place] [address], [place] [address] November, [facility] [address] [id number] [address] [place] [address], [place] [address] November, [facility] [address] [id number] [address] [place] [address], [place] [address] November, [facility] [address] [id number] [address] [place] [address], [place] [address] November, [facility] [address] [id number] [address] [place] [address], [place] [address] Oct, [facility] [address] [id number] [address] [place] [address], [place] [address] Oct, [facility] [address] [id number] [address] [place] [address], [place] [address] Oct, [facility] [address] [id number] [address] [place] [address], [place] [address] Oct, [facility] [address] [id number] [address] [place] [address], [place] [address] Oct, [facility] [address] [id number] [address] [place] [address], [place] [address] Oct, [facility] [address] [id number] [facility] [place] [address] Oct, [facility] [address] [id number] [facility] [place] [address] Oct, [facility] [address] [id number] [facility] [place] [address] Oct, [facility] [address] [id number] [address] [place] [address], [place] [address] Oct, [facility] [address] [id number] [address] [place] [address], [place] [address] Oct, [facility] [address] [id number] [address] [place] [address], [place] [address] Oct, [facility] [address] [id number] [address] [place] [address], [place] [address] Oct, [facility] [address] [id number] [address] [place] [address], [place] [address] Oct, [facility] [address] [id number] [address] [place] [address], [place] [address] Oct, [facility] [address] [id number] [address] [place] [address], [place] [address] Sep, [facility] [address] [id number] [address] [place] [address], [place] [address] Sep, [facility] [address] [id number] [address] [place] [address], [place] [address] Sep, [facility] [address] [id number] [address] [place] [address], [place] [address] Sep, [facility] [address] [id number] [address] [place] [address], [place] [address] Aug, [facility] [address] [id number] [address] [place] [address], [place] [address] Aug, [facility] [address] [id number] [address] [place] [address], [place] [address] Aug, [facility] [address] [id number] [address] [place] [address], [place] [address] Aug, [facility] [address] [id number] [address] [place] [address], [place] [address] Jul, [facility] [address] [id number] [address] [place] [address], [place] [address] Jul, [facility] [address] [id number] [address] [place] [address], [place] [address] Jul, [facility] [address] [id number] [address] [place] [address], [place] [address] Jul, [facility] [address] [id number] [address] [place] [address], [place] [address] Jul, [facility] [address] [id number] [address] [place] [address], [place] [address] Jul, [facility] [address] [id number] [address] [place] [address], [place] [address] Jul, [facility] [address] [id number] [address] [place] [address], [place] [address] Jul, [facility] [address] [id number] [address] [place] [address], [place] [address] Jul, [facility] [address] [id number] [address] [place] [address], [place] [address] Jul, [facility] [address] [id number] [address] [place] [address], [place] [address] Jul, [facility] [address] [id number] [address] [place] [address], [place] [address] Jul, [facility] [address] [id number] [address] [place] [address], [place] [address] Jul, [facility] [address] [id number] [address] [place] [address], [place] [address] Jul, [facility] [address] [id number] [address] [place] [address], [place] [address] Jun, [facility] [address] [id number] [address] [place] [address], [place] [address] Jun, [facility] [address] [id number] [address] [place] [address], [place] [address] Jun, [facility] [address] [id number] [address] [place] [address], [place] [address] Jun, [facility] [address] [id number] [address] [place] [address], [place] [address] May, [facility] [address] [id number] [address] [place] [address], [place] [address] May, [facility] [address] [id number] [address] [place] [address], [place] [address] May, [facility] [address] [id number] [address] [place] [address], [place] [address] May, [facility] [address] [id number] [address] [place] [address], [place] [address] May, [facility] [address] [id number] [address] [place] [address] May, [facility] [address] [id number] [address] [place] [address] May, [facility] [address] [id number] [address] [place] [address] May, [facility] [address] [id number] [address] [place] [address], [place] [address] Apr, [facility] [address] [id number] [address] [place] [address], [place] [address] Apr, [facility] [address] [id number] [address] [place] [address] Apr, [facility] [address] [id number] [address] [place] [address] Apr, [facility] [address] [id number] [address] [place] [address], [place] [address] Apr, [facility] [address] [id number] [address] [place] [address], [place] [address] Apr, [facility] [address] [id number] [address] [place] [address], [place] [address] 30 Mar, 2013 [facility] [address] [id number] [address] [place] [address], [place] [address] 26 Mar, 2013 [facility] [address] [id number] [address] [place] [address], [place] [address] 20 Mar, 2013 [facility] [address] [id number] [address] [place] [address], [place] [address] 17 Mar, 2013 [facility] [address] [id number] [address] [place] [address], [place] [address] 16 Mar, 2013 [facility] [address] [id number] [address] [place] [address], [place] [address] 05 Mar, 2013 [facility] [address] [id number] [address] [place] [address], [place] [address] Feb, [facility] [address] [id number] [address] [place] [address], [place] [address] Feb, [facility] [address] [id number] [address] [place] [address], [place] [address] Feb, [facility] [address] [id number] [address] [place] [address], [place] [address] Feb, [facility] [address] [id number] [address] [place] [address], [place] [address] Jan, [facility] [address] [id number] [address] [place] [address], [place] [address] Jan, [facility] [address] [id number] [address] [place] [address], [place] [address] Jan, [facility] [address] [id number] [address] [place] [address], [place] [address] 23 Jan, 2013 [facility] [address] [id number] [address] [place] [address], [place] [address] 16 Jan, 2013 [facility] [address] [id number] [address] [place] [address], [place] [address] Dec, [facility] [address] [id number] [address] [place] [address], [place] [address] Dec, [facility] [address] [id number] [address] [place] [address], [place] [address] Dec, [facility] [address] [id number] [address] [place] [address], [place] [address] November, [facility] [address] [id number] [address] [place] [address], [place] [address] November, [facility] [address] [id number] [address] [place] [address], [place] [address] November, [facility] [address] [id number] [address] [place] [address], [place] [address] Oct, [facility] [address] [id number] [address] [place] [address], [place] [address] Oct, [facility] [address] [id number] [address] [place] [address], [place] [address] Oct, [facility] [address] [id number] [address] [place] [address], [place] [address] Oct, [facility] [address] [id number] [address] [place] [address], [place] [address] 18 Oct, 2012 [facility] [address] [id number] [address] [place] [address], [place] [address] 17 Oct, 2012 [facility] [address] [id number] [address] [place] [address], [place] [address] 15 Oct, 2012 [facility] [address] [id number] [address] [place] [address], [place] [address] Sep, [facility] [address] [id number] [facility] [place] [address] Sep, [facility] [address] [id number] [address] [place] [address], [place] [address] Sep, [facility] [address] [id number] [address] [place] [address], [place] [address] Sep, [facility] [address] [id number] [address] [place] [address], [place] [address] Aug, [facility] [address] [id number] [address] [place] [address], [place] [address] Aug, [facility] [address] [id number] [address] [place] [address], [place] [address] Aug, [facility] [address] [id number] [address] [place] [address], [place] [address] Aug, [facility] [address] [id number] [address] [place] [address], [place] [address] Aug, [facility] [address] [id number] [address] [place] [address], [place] [address] Aug, [facility] [address] [id number] [address] [place] [address], [place] [address] Jul, [facility] [address] [id number] [address] [place] [address], [place] [address] Jul, [facility] [address] [id number] [address] [place] [address], [place] [address] Jul, [facility] [address] [id number] [address] [place] [address], [place] [address] Jul, [facility] [address] [id number] [address] [place] [address], [place] [address] Jul, [facility] [address] [id number] [address] [place] [address], [place] [address] Jul, [facility] [address] [id number] [address] [place] [address], [place] [address] Jun, [facility] [address] [id number] [address] [place] [address], [place] [address] Jun, [facility] [address] [id number] [address] [place] [address], [place] [address] Jun, [facility] [address] [id number] [address] [place] [address], [place] [address] Jun, [facility] [address] [id number] [address] [place] [address], [place] [address] Jun, [facility] [address] [id number] [address] [place] [address], [place] [address] Jun, [facility] [address] [id number] [address] [place] [address], [place] [address] May, [facility] [address] [id number] [address] [place] [address], [place] [address] May, [facility] [address] [id number] [address] [place] [address], [place] [address] May, [facility] [address] [id number] [address] [place] [address], [place] [address] May, [facility] [address] [id number] [address] [place] [address], [place] [address] May, [facility] [address] [id number] [address] [place] [address], [place] [address] May, [facility] [address] [id number] [address] [place] [address], [place] [address] May, [facility] [address] [id number] [address] [place] [address], [place] [address] May, [facility] [address] [id number] [address] [place] [address], [place] [address] May, [facility] [address] [id number] [address] [place] [address], [place] [address] May, [facility] [address] [id number] [address] [place] [address], [place] [address] 31 Apr, 2012 [facility] [address] [id number] [address] [place] [address], [place] [address] 31 Apr, 2012 [facility] [address] [id number] [address] [place] [address], [place] [address] 23 Apr, 2012 [facility] [address] [id number] [address] [place] [address], [place] [address] 23 Apr, 2012 [facility] [address] [id number] [address] [place] [address], [place] [address] 16 Apr, 2012 [facility] [address] [id number] [address] [place] [address], [place] [address] 16 Apr, 2012 [facility] [address] [id number] [address] [place] [address], [place] [address] 15 Apr, 2012 [facility] [address] [id number] [address] [place] [address] 15 Apr, 2012 [facility] [address] [id number] [address] [place] [address], [place] [address] 05 Apr, 2012 [facility] [address] [id number] [address] [place] [address] 28 Mar, 2012 [facility] [address] [id number] [address] [place] [address] 26 Sep2011 [facility] [address] [id number] [address] [place] [address] 25 Sep, 2011 [facility] [address] [id number] [address] [place] [address] 19 Sep, 2011 [facility] [address] [id number] [address] [place] [address] 18 Sep, 2011 [facility] [address] [id number] [address] [place] [address] 05 Sep, 2011 [facility] [address] [id number] [address] [place] [address] Feb, [facility] [address] [id number] [address] [place] [address], [place] [address] Feb, [facility] [address] [id number] [address] [place] [address], [place] [address] Feb, [facility] [address] [id number] [address] [place] [address], [place] [address] Jan, [facility] [address] [id number] [address] [place] [address], [place] [address] Jan, [facility] [address] [id number] [address] [place] [address], [place] [address] Jan, [facility] [address] [id number] [address] [place] [address], [place] [address] Jan, [facility] [address] [id number] [address] [place] [address], [place] [address] Dec, [facility] [address] [id number] [address] [place] [address], [place] [address] November, [facility] [address] [id number] [address] [place] [address], [place] [address] November, [facility] [address] [id number] [address] [place] [address], [place] [address] November, [facility] [address] [id number] [address] [place] [address], [place] [address] November, [facility] [address] [id number] [address] [place] [address], [place] [address] November, [facility] [address] [id number] [address] [place] [address], [place] [address] November, [facility] [address] [id number] [address] [place] [address], [place] [address] Oct, [facility] [address] [id number] [address] [place] [address], [place] [address] Oct, [facility] [address] [id number] [address] [place] [address], [place] [address] Sep, [facility] [address] [id number] [address] [place] [address], [place] [address] Sep, [facility] [address] [id number] [address] [place] [address], [place] [address] Sep, [facility] [address] [id number] [address] [place] [address], [place] [address] Aug, [facility] [address] [id number] [address] [place] [address], [place] [address] Aug, [facility] [address] [id number] [address] [place] [address], [place] [address] Aug, [facility] [address] [id number] [address] [place] [address], [place] [address] Aug, [facility] [address] [id number] [address] [place] [address], [place] [address] Aug, [facility] [address] [id number] [address] [place] [address], [place] [address] Aug, [facility] [address] [id number] [address] [place] [address], [place] [address] Jul, [facility] [address] [id number] [address] [place] [address], [place] [address] Jul, [facility] [address] [id number] [address] [place] [address], [place] [address] Jul, [facility] [address] [id number] [address] [place] [address], [place] [address] Jul, [facility] [address] [id number] [address] [place] [address], [place] [address] Jul, [facility] [address] [id number] [address] [place] [address], [place] [address] Jul, [facility] [address] [id number] [address] [place] [address], [place] [address] 17 Jul, 2011 [facility] [address] [id number] [address] [place] [address], [place] [address] Jul, [facility] [address] [id number] [address] [place] [address], [place] [address] Jul, [facility] [address] [id number] [address] [place] [address], [place] [address] Jul, [facility] [address] [id number] [address] [place] [address], [place] [address] Jun, [facility] [address] [id number] [address] [place] [address], [place] [address] Jun, [facility] [address] [id number] [address] [place] [address], [place] [address] Jun, [facility] [address] [id number] [address] [place] [address], [place] [address] Jun, [facility] [address] [id number] [address] [place] [address], [place] [address] May, [facility] [address] [id number] [address] [place] [address], [place] [address] May, [facility] [address] [id number] [address] [place] [address], [place] [address] May, [facility] [address] [id number] [address] [place] [address], [place] [address] May, [facility] [address] [id number] [address] [place] [address], [place] [address] Apr, [facility] [address] [id number] [address] [place] [address], [place] [address] Apr, [facility] [address] [id number] [address] [place] [address], [place] [address] November, [facility] [address] [id number] [address] [place] [address], [place] [address] 18 Oct, 2010 [facility] [address] [id number] [address] [place] [address], [place] [address] 17 Aug, 2010 [facility] [address] [id number] [address] [place] [address], [place] [address] 28 Jun, 2010 [facility] [address] [id number] [address] [place] [address], [place] [address] 28 Jun, 2010 [facility] [address] [id number] [address] [place] [address], [place] [address] 27 Jun, 2010 [facility] [address] [id number] [address] [place] [address], [place] [address] 03 Jun, 2010 [facility] [address] [id number] [address] [place] [address], [place] [address] 29 May, 2010 [facility] [address] [id number] [address] [place] [address], [place] [address] Apr, [facility] [address] [id number] [address] [place] [address], [place] [address] 13 Oct, 2009 [facility] [address] [id number] [address] [place] [address], [place] [address] 13 Aug, 2009 [facility] [address] [id number] [address] [place] [address], [place] [address] Jul, [facility] [address] [id number] [address] [place] [address], [place] [address] 22 Jun, 2009 [facility] [address] [id number] [address] [place] [address], [place] [address] 16 Jun, 2009 [facility] [address] [id number] [address] [place] [address], [place] [address] 14 Jun, 2009 [facility] [address] [id number] [address] [place] [address], [place] [address] 14 Jun, 2009 [facility] [address] [id number] [address] [place] [address], [place] [address] 09 May, 2009 [facility] [address] [id number] [address] [place] [address], [place] [address] Apr, [facility] [place] [address] [facility] [id number] [address] [place] [address] 15 Mar, 2009 [facility] [place] [address] [facility] [id number] [address] [place] [address] 14 Mar, 2009 [facility] [place] [address] [facility] [id number] [address] [place] [address] Dec, IMMUNIZATIONS No Known Immunizations SOCIAL HISTORY Never Assessed REASON FOR VISIT Controlled Med Refill 10/22/17 PLAN OF CARE VITAL SIGNS MEDICATIONS Medication [...]
--- OUTSIDE RECORDS SUMMARY | 2019-09-01 05:51 | XMS REPORT ---
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 [place] [address] Apr, [facility] [address] [id number] [address] [place] [address], [place] [address] 29 Mar, 2013 [facility] [address] [id number] [address] [place] [address], [place] [address] 29 Mar, 2013 [facility] [address] [id number] [address] [place] [address], [place] [address] 29 Mar, 2013 [facility] [address] [id number] [address] [place] [address], [place] [address] 29 Mar, 2013 [facility] [address] [id number] [address] [place] [address], [place] [address] 10 Mar, 2013 [facility] [address] [id number] [address] [place] [address] 10 Mar, 2013 [facility] [address] [id number] [address] [place] [address] Sep, 2013 [facility] [address] [id number] [address] [place] [address], [place] [address] 04 Sep, 2013 [facility] [address] [id number] [address] [place] [address], [place] [address] 02 Mar, 2013 [facility] [address] [id number] [address] [place] [address], [place] [address] Mar, 2013 [facility] [address] [id number] [address] [place] [address], [place] [address] Mar, [facility] [address] [id number] [address] [place] [address], [place] [address] Mar, [facility] [address] [id number] [address] [place] [address], [place] [address] Feb, [facility] [address] [id number] [address] [place] [address], [place] [address] Feb, [facility] [address] [id number] [address] [place] [address], [place] [address] Jan, [facility] [address] [id number] [address] [place] [address], [place] [address] Jan, [facility] [address] [id number] [address] [place] [address], [place] [address] Jan, [facility] [address] [id number] [address] [place] [address], [place] [address] Jan, [facility] [address] [id number] [address] [place] [address], [place] [address] Dec, [facility] [address] [id number] [address] [place] [address], [place] [address] Dec, [facility] [address] [id number] [address] [place] [address], [place] [address] Dec, [facility] [address] [id number] [address] [place] [address], [place] [address] Dec, [facility] [address] [id number] [address] [place] [address], [place] [address] Dec, [facility] [address] [id number] [address] [place] [address], [place] [address] Dec, [facility] [address] [id number] [address] [place] [address], [place] [address] November, [facility] [address] [id number] [address] [place] [address], [place] [address] November, [facility] [address] [id number] [address] [place] [address], [place] [address] November, [facility] [address] [id number] [address] [place] [address], [place] [address] November, [facility] [address] [id number] [address] [place] [address], [place] [address] November, [facility] [address] [id number] [address] [place] [address], [place] [address] November, [facility] [address] [facility] [id number] November, [facility] [address] [id number] [address] [place] [address], [place] [address] November, [facility] [address] [id number] [address] [place] [address], [place] [address] November, [facility] [address] [id number] [address] [place] [address], [place] [address] November, [facility] [address] [id number] [address] [place] [address], [place] [address] November, [facility] [address] [id number] [address] [place] [address], [place] [address] November, [facility] [address] [id number] [address] [place] [address], [place] [address] Oct, [facility] [address] [id number] [address] [place] [address], [place] [address] Oct, [facility] [address] [id number] [address] [place] [address], [place] [address] Oct, [facility] [address] [id number] [address] [place] [address], [place] [address] Oct, [facility] [address] [id number] [address] [place] [address], [place] [address] Oct, [facility] [address] [id number] [address] [place] [address], [place] [address] Oct, [facility] [address] [id number] [facility] [address] Oct, [facility] [address] [id number] [facility] [address] Oct, [facility] [address] [id number] [facility] [address] Oct, [facility] [address] [id number] [address] [place] [address], [place] [address] Oct, [facility] [address] [id number] [address] [place] [address], [place] [address] Oct, [facility] [address] [id number] [address] [place] [address], [place] [address] Oct, [facility] [address] [id number] [address] [place] [address], [place] [address] Oct, [facility] [address] [id number] [address] [place] [address], [place] [address] Oct, [facility] [address] [id number] [address] [place] [address], [place] [address] Oct, [facility] [address] [id number] [address] [place] [address], [place] [address] Sep, [facility] [address] [id number] [address] [place] [address], [place] [address] Sep, [facility] [address] [id number] [address] [place] [address], [place] [address] Sep, [facility] [address] [id number] [address] [place] [address], [place] [address] Sep, [facility] [address] [id number] [address] [place] [address], [place] [address] Aug, [facility] [address] [id number] [address] [place] [address], [place] [address] Aug, [facility] [address] [id number] [address] [place] [address], [place] [address] Aug, [facility] [address] [id number] [address] [place] [address], [place] [address] Aug, [facility] [address] [id number] [address] [place] [address], [place] [address] Jul, [facility] [address] [id number] [address] [place] [address], [place] [address] Jul, [facility] [address] [id number] [address] [place] [address], [place] [address] Jul, [facility] [address] [id number] [address] [place] [address], [place] [address] Jul, [facility] [address] [id number] [address] [place] [address], [place] [address] Jul, [facility] [address] [id number] [address] [place] [address], [place] [address] Jul, [facility] [address] [id number] [address] [place] [address], [place] [address] Jul, [facility] [address] [id number] [address] [place] [address], [place] [address] Jul, [facility] [address] [id number] [address] [place] [address], [place] [address] Jul, [facility] [address] [id number] [address] [place] [address], [place] [address] Jul, [facility] [address] [id number] [address] [place] [address], [place] [address] Jul, [facility] [address] [id number] [address] [place] [address], [place] [address] Jul, [facility] [address] [id number] [address] [place] [address], [place] [address] Jul, [facility] [address] [id number] [address] [place] [address], [place] [address] Jul, [facility] [address] [id number] [address] [place] [address], [place] [address] Jun, [facility] [address] [id number] [address] [place] [address], [place] [address] Jun, [facility] [address] [id number] [address] [place] [address], [place] [address] Jun, [facility] [address] [id number] [address] [place] [address], [place] [address] Jun, [facility] [address] [id number] [address] [place] [address], [place] [address] May, [facility] [address] [id number] [address] [place] [address], [place] [address] May, [facility] [address] [id number] [address] [place] [address], [place] [address] May, [facility] [address] [id number] [address] [place] [address], [place] [address] May, [facility] [address] [id number] [address] [place] [address], [place] [address] May, [facility] [address] [id number] [address] [place] [phone] May, [facility] [address] [id number] [address] [place] [phone] May, [facility] [address] [id number] [address] [place] [phone] May, [facility] [address] [id number] [address] [place] [address], [place] [address] Apr, [facility] [address] [id number] [address] [place] [address], [place] [address] Apr, [facility] [address] [id number] [address] [place] [phone] Apr, [facility] [address] [id number] [address] [place] [address] Apr, [facility] [address] [id number] [address] [place] [address], [place] [address] Apr, [facility] [address] [id number] [address] [place] [address], [place] [address] Apr, [facility] [address] [id number] [address] [place] [address], [place] [address] 30 Mar, 2013 [facility] [address] [id number] [address] [place] [address], [place] [address] 26 Mar, 2013 [facility] [address] [id number] [address] [place] [address], [place] [address] 20 Mar, 2013 [facility] [address] [id number] [address] [place] [address], [place] [address] 17 Mar, 2013 [facility] [address] [id number] [address] [place] [address], [place] [address] 16 Mar, 2013 [facility] [address] [id number] [address] [place] [address], [place] [address] 05 Mar, 2013 [facility] [address] [id number] [address] [place] [address], [place] [address] Feb, [facility] [address] [id number] [address] [place] [address], [place] [address] Feb, [facility] [address] [id number] [address] [place] [address], [place] [address] Feb, [facility] [address] [id number] [address] [place] [address], [place] [address] Feb, [facility] [address] [id number] [address] [place] [address], [place] [address] Jan, [facility] [address] [id number] [address] [place] [address], [place] [address] Jan, [facility] [address] [id number] [address] [place] [address], [place] [address] Jan, [facility] [address] [id number] [address] [place] [address], [place] [address] 23 Jan, 2013 [facility] [address] [id number] [address] [place] [address], [place] [address] 16 Jan, 2013 [facility] [address] [id number] [address] [place] [address], [place] [address] Dec, [facility] [address] [id number] [address] [place] [address], [place] [address] Dec, [facility] [address] [id number] [address] [place] [address], [place] [address] Dec, [facility] [address] [id number] [address] [place] [address], [place] [address] November, [facility] [address] [id number] [address] [place] [address], [place] [address] November, [facility] [address] [id number] [address] [place] [address], [place] [address] November, [facility] [address] [id number] [address] [place] [address], [place] [address] Oct, [facility] [address] [id number] [address] [place] [address], [place] [address] Oct, [facility] [address] [id number] [address] [place] [address], [place] [address] Oct, [facility] [address] [id number] [address] [place] [address], [place] [address] Oct, [facility] [address] [id number] [address] [place] [address], [place] [address] 18 Oct, 2012 [facility] [address] [id number] [address] [place] [address], [place] [address] 17 Oct, 2012 [facility] [address] [id number] [address] [place] [address], [place] [address] 15 Oct, 2012 [facility] [address] [id number] [address] [place] [address], [place] [address] Sep, [facility] [address] [id number] [facility] [facility] [address] Sep, [facility] [address] [id number] [address] [place] [address], [place] [address] Sep, [facility] [address] [id number] [address] [place] [address], [place] [address] Sep, [facility] [address] [id number] [address] [place] [address], [place] [address] Aug, [facility] [address] [id number] [address] [place] [address], [place] [address] Aug, [facility] [address] [id number] [address] [place] [address], [place] [address] Aug, [facility] [address] [id number] [address] [place] [address], [place] [address] Aug, [facility] [address] [id number] [address] [place] [address], [place] [address] Aug, [facility] [address] [id number] [address] [place] [address], [place] [address] Aug, [facility] [address] [id number] [address] [place] [address], [place] [address] Jul, [facility] [address] [id number] [address] [place] [address], [place] [address] Jul, [facility] [address] [id number] [address] [place] [address], [place] [address] Jul, [facility] [address] [id number] [address] [place] [address], [place] [address] Jul, [facility] [address] [id number] [address] [place] [address], [place] [address] Jul, [facility] [address] [id number] [address] [place] [address], [place] [address] Jul, [facility] [address] [id number] [address] [place] [address], [place] [address] Jun, [facility] [address] [id number] [address] [place] [address], [place] [address] Jun, [facility] [address] [id number] [address] [place] [address], [place] [address] Jun, [facility] [address] [id number] [address] [place] [address], [place] [address] Jun, [facility] [address] [id number] [address] [place] [address], [place] [address] Jun, [facility] [address] [id number] [address] [place] [address], [place] [address] Jun, [facility] [address] [id number] [address] [place] [address], [place] [address] May, [facility] [address] [id number] [address] [place] [address], [place] [address] May, [facility] [address] [id number] [address] [place] [address], [place] [address] May, [facility] [address] [id number] [address] [place] [address], [place] [address] May, [facility] [address] [id number] [address] [place] [address], [place] [address] May, [facility] [address] [id number] [address] [place] [address], [place] [address] May, [facility] [address] [id number] [address] [place] [address], [place] [address] May, [facility] [address] [id number] [address] [place] [address], [place] [address] May, [facility] [address] [id number] [address] [place] [address], [place] [address] May, [facility] [address] [id number] [address] [place] [address], [place] [address] May, [facility] [address] [id number] [address] [place] [address], [place] [address] 31 Apr, 2012 [facility] [address] [id number] [address] [place] [address], [place] [address] 31 Apr, 2012 [facility] [address] [id number] [address] [place] [address], [place] [address] 23 Apr, 2012 [facility] [address] [id number] [address] [place] [address], [place] [address] 23 Apr, 2012 [facility] [address] [id number] [address] [place] [address], [place] [address] 16 Apr, 2012 [facility] [address] [id number] [address] [place] [address], [place] [address] 16 Apr, 2012 [facility] [address] [id number] [address] [place] [address], [place] [address] 15 Apr, 2012 [facility] [address] [id number] [address] [place] [address] 15 Apr, 2012 [facility] [address] [id number] [address] [place] [address], [place] [address] 05 Apr, 2012 [facility] [address] [id number] [address] [place] [address] 28 Mar, 2012 [facility] [address] [id number] [address] [place] [address] 26 Sep2011 [facility] [address] [id number] [address] [place] [address] 25 Sep, 2011 [facility] [address] [id number] [address] [place] [address] 19 Sep, 2011 [facility] [address] [id number] [address] [place] [address] 18 Sep, 2011 [facility] [address] [id number] [address] [place] [id number] 05 Sep, 2011 [facility] [address] [id number] [address] [place] [phone] Feb, [facility] [address] [id number] [address] [place] [address], [place] [address] Feb, [facility] [address] [id number] [address] [place] [address], [place] [address] Feb, [facility] [address] [id number] [address] [place] [address], [place] [address] Jan, [facility] [address] [id number] [address] [place] [address], [place] [address] Jan, [facility] [address] [id number] [address] [place] [address], [place] [address] Jan, [facility] [address] [id number] [address] [place] [address], [place] [address] Jan, [facility] [address] [id number] [address] [place] [address], [place] [address] Dec, [facility] [address] [id number] [address] [place] [address], [place] [address] November, [facility] [address] [id number] [address] [place] [address], [place] [address] November, [facility] [address] [id number] [address] [place] [address], [place] [address] November, [facility] [address] [id number] [address] [place] [address], [place] [address] November, [facility] [address] [id number] [address] [place] [address], [place] [address] November, [facility] [address] [id number] [address] [place] [address], [place] [address] November, [facility] [address] [id number] [address] [place] [address], [place] [address] Oct, [facility] [address] [id number] [address] [place] [address], [place] [address] Oct, [facility] [address] [id number] [address] [place] [address], [place] [address] Sep, [facility] [address] [id number] [address] [place] [address], [place] [address] Sep, [facility] [address] [id number] [address] [place] [address], [place] [address] Sep, [facility] [address] [id number] [address] [place] [address], [place] [address] Aug, [facility] [address] [id number] [address] [place] [address], [place] [address] Aug, [facility] [address] [id number] [address] [place] [address], [place] [address] Aug, [facility] [address] [id number] [address] [place] [address], [place] [address] Aug, [facility] [address] [id number] [address] [place] [address], [place] [address] Aug, [facility] [address] [id number] [address] [place] [address], [place] [address] Aug, [facility] [address] [id number] [address] [place] [address], [place] [address] Jul, [facility] [address] [id number] [address] [place] [address], [place] [address] Jul, [facility] [address] [id number] [address] [place] [address], [place] [address] Jul, [facility] [address] [id number] [address] [place] [address], [place] [address] Jul, [facility] [address] [id number] [address] [place] [address], [place] [address] Jul, [facility] [address] [id number] [address] [place] [address], [place] [address] Jul, [facility] [address] [id number] [address] [place] [address], [place] [address] 17 Jul, 2011 [facility] [address] [id number] [address] [place] [address], [place] [address] Jul, [facility] [address] [id number] [address] [place] [address], [place] [address] Jul, [facility] [address] [id number] [address] [place] [address], [place] [address] Jul, [facility] [address] [id number] [address] [place] [address], [place] [address] Jun, [facility] [address] [id number] [address] [place] [address], [place] [address] Jun, [facility] [address] [id number] [address] [place] [address], [place] [address] Jun, [facility] [address] [id number] [address] [place] [address], [place] [address] Jun, [facility] [address] [id number] [address] [place] [address], [place] [address] May, [facility] [address] [id number] [address] [place] [address], [place] [address] May, [facility] [address] [id number] [address] [place] [address], [place] [address] May, [facility] [address] [id number] [address] [place] [address], [place] [address] May, [facility] [address] [id number] [address] [place] [address], [place] [address] Apr, [facility] [address] [id number] [address] [place] [address], [place] [address] Apr, [facility] [address] [id number] [address] [place] [address], [place] [address] November, [facility] [address] [id number] [address] [place] [address], [place] [address] 18 Oct, 2010 [facility] [address] [id number] [address] [place] [address], [place] [address] 17 Aug, 2010 [facility] [address] [id number] [address] [place] [address], [place] [address] 28 Jun, 2010 [facility] [address] [id number] [address] [place] [address], [place] [address] 28 Jun, 2010 [facility] [address] [id number] [address] [place] [address], [place] [address] 27 Jun, 2010 [facility] [address] [id number] [address] [place] [address], [place] [address] 03 Jun, 2010 [facility] [address] [id number] [address] [place] [address], [place] [address] 29 May, 2010 [facility] [address] [id number] [address] [place] [address], [place] [address] Apr, [facility] [address] [id number] [address] [place] [address], [place] [address] 13 Oct, 2009 [facility] [address] [id number] [address] [place] [address], [place] [address] 13 Aug, 2009 [facility] [address] [id number] [address] [place] [address], [place] [address] Jul, [facility] [address] [id number] [address] [place] [address], [place] [address] 22 Jun, 2009 [facility] [address] [id number] [address] [place] [address], [place] [address] 16 Jun, 2009 [facility] [address] [id number] [address] [place] [address], [place] [address] 14 Jun, 2009 [facility] [address] [id number] [address] [place] [address], [place] [address] 14 Jun, 2009 [facility] [address] [id number] [address] [place] [address], [place] [address] 09 May, 2009 [facility] [address] [id number] [address] [place] [address], [place] [address] Apr, [facility] [address] [id number] [address] [place] [address] 15 Mar, 2009 [facility] [address] [id number] [address] [place] [address] 14 Mar, 2009 [facility] [address] [id number] [address] [place] [address] 11 Dec, 2008 IMMUNIZATIONS No Known Immunizations SOCIAL HISTORY Never Assessed REASON FOR VISIT requesting return call PLAN OF CARE VITAL SIGNS [...]
--- OUTSIDE RECORDS SUMMARY | 2019-09-01 05:51 | XMS REPORT ---
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 Apr, [facility] [address] [id number] [address] [place] [address], [place] [id number] Apr, [facility] [address] [id number] [address] [place] [address], [place] [id number] Apr, [facility] [address] [id number] [address] [place] [address], [place] [id number] Apr, [facility] [address] [id number] [address] [place] [address], [place] [id number] Apr, [facility] [address] [id number] [address] [place] [address], [place] [id number] 29 Mar, 2013 [facility] [address] [id number] [address] [place] [address], [place] [id number] 29 Mar, 2013 [facility] [address] [id number] [address] [place] [address], [place] [id number] 29 Mar, 2013 [facility] [address] [id number] [address] [place] [address], [place] [id number] 29 Mar, 2013 [facility] [address] [id number] [address] [place] [address], [place] [id number] 10 Mar, 2013 [facility] [address] [id number] [address] [place] [id number] 10 Mar, 2013 [facility] [address] [id number] [address] [place] [id number] Sep, 2013 [facility] [address] [id number] [address] [place] [address], [place] [id number] 04 Sep, 2013 [facility] [address] [id number] [address] [place] [address], [place] [id number] 02 Mar, 2013 [facility] [address] [id number] [address] [place] [address], [place] [id number] Mar, 2013 [facility] [address] [id number] [address] [place] [address], [place] [id number] Mar, [facility] [address] [id number] [address] [place] [address], [place] [id number] Mar, [facility] [address] [id number] [address] [place] [address], [place] [id number] Feb, [facility] [address] [id number] [address] [place] [address], [place] [id number] Feb, [facility] [address] [id number] [address] [place] [address], [place] [id number] Jan, [facility] [address] [id number] [address] [place] [address], [place] [id number] Jan, [facility] [address] [id number] [address] [place] [address], [place] [id number] Jan, [facility] [address] [id number] [address] [place] [address], [place] [id number] Jan, [facility] [address] [id number] [address] [place] [address], [place] [id number] Dec, [facility] [address] [id number] [address] [place] [address], [place] [id number] Dec, [facility] [address] [id number] [address] [place] [address], [place] [id number] Dec, [facility] [address] [id number] [address] [place] [address], [place] [id number] Dec, [facility] [address] [id number] [address] [place] [address], [place] [id number] Dec, [facility] [address] [id number] [address] [place] [address], [place] [id number] Dec, [facility] [address] [id number] [address] [place] [address], [place] [id number] November, [facility] [address] [id number] [address] [place] [address], [place] [id number] November, [facility] [address] [id number] [address] [place] [address], [place] [id number] November, [facility] [address] [id number] [address] [place] [address], [place] [id number] November, [facility] [address] [id number] [address] [place] [address], [place] [id number] November, [facility] [address] [id number] [address] [place] [address], [place] [id number] November, [facility] [address] [facility] [id number] November, [facility] [address] [id number] [address] [place] [address], [place] [id number] November, [facility] [address] [id number] [address] [place] [address], [place] [id number] November, [facility] [address] [id number] [address] [place] [address], [place] [id number] November, [facility] [address] [id number] [address] [place] [address], [place] [id number] November, [facility] [address] [id number] [address] [place] [address], [place] [id number] November, [facility] [address] [id number] [address] [place] [address], [place] [id number] Oct, [facility] [address] [id number] [address] [place] [address], [place] [id number] Oct, [facility] [address] [id number] [address] [place] [address], [place] [id number] Oct, [facility] [address] [id number] [address] [place] [address], [place] [id number] Oct, [facility] [address] [id number] [address] [place] [address], [place] [id number] Oct, [facility] [address] [id number] [address] [place] [address], [place] [id number] Oct, [facility] [address] [id number] [facility] [place] [id number] Oct, [facility] [address] [id number] [facility] [place] [id number] Oct, [facility] [address] [id number] [facility] [place] [id number] Oct, [facility] [address] [id number] [address] [place] [address], [place] [id number] Oct, [facility] [address] [id number] [address] [place] [address], [place] [id number] Oct, [facility] [address] [id number] [address] [place] [address], [place] [id number] Oct, [facility] [address] [id number] [address] [place] [address], [place] [id number] Oct, [facility] [address] [id number] [address] [place] [address], [place] [id number] Oct, [facility] [address] [id number] [address] [place] [address], [place] [id number] Oct, [facility] [address] [id number] [address] [place] [address], [place] [id number] Sep, [facility] [address] [id number] [address] [place] [address], [place] [id number] Sep, [facility] [address] [id number] [address] [place] [address], [place] [id number] Sep, [facility] [address] [id number] [address] [place] [address], [place] [id number] Sep, [facility] [address] [id number] [address] [place] [address], [place] [id number] Aug, [facility] [address] [id number] [address] [place] [address], [place] [id number] Aug, [facility] [address] [id number] [address] [place] [address], [place] [id number] Aug, [facility] [address] [id number] [address] [place] [address], [place] [id number] Aug, [facility] [address] [id number] [address] [place] [address], [place] [id number] Jul, [facility] [address] [id number] [address] [place] [address], [place] [id number] Jul, [facility] [address] [id number] [address] [place] [address], [place] [id number] Jul, [facility] [address] [id number] [address] [place] [address], [place] [id number] Jul, [facility] [address] [id number] [address] [place] [address], [place] [id number] Jul, [facility] [address] [id number] [address] [place] [address], [place] [id number] Jul, [facility] [address] [id number] [address] [place] [address], [place] [id number] Jul, [facility] [address] [id number] [address] [place] [address], [place] [id number] Jul, [facility] [address] [id number] [address] [place] [address], [place] [id number] Jul, [facility] [address] [id number] [address] [place] [address], [place] [id number] Jul, [facility] [address] [id number] [address] [place] [address], [place] [id number] Jul, [facility] [address] [id number] [address] [place] [address], [place] [id number] Jul, [facility] [address] [id number] [address] [place] [address], [place] [id number] Jul, [facility] [address] [id number] [address] [place] [address], [place] [id number] Jul, [facility] [address] [id number] [address] [place] [address], [place] [id number] Jun, [facility] [address] [id number] [address] [place] [address], [place] [id number] Jun, [facility] [address] [id number] [address] [place] [address], [place] [id number] Jun, [facility] [address] [id number] [address] [place] [address], [place] [id number] Jun, [facility] [address] [id number] [address] [place] [address], [place] [id number] May, [facility] [address] [id number] [address] [place] [address], [place] [id number] May, [facility] [address] [id number] [address] [place] [address], [place] [id number] May, [facility] [address] [id number] [address] [place] [address], [place] [id number] May, [facility] [address] [id number] [address] [place] [address], [place] [id number] May, [facility] [address] [id number] [address] [place] [id number] May, [facility] [address] [id number] [address] [place] [id number] May, [facility] [address] [id number] [address] [place] [id number] May, [facility] [address] [id number] [address] [place] [address], [place] [id number] Apr, [facility] [address] [id number] [address] [place] [address], [place] [id number] Apr, [facility] [address] [id number] [address] [place] [id number] Apr, [facility] [address] [id number] [address] [place] [id number] Apr, [facility] [address] [id number] [address] [place] [address], [place] [id number] Apr, [facility] [address] [id number] [address] [place] [address], [place] [id number] Apr, [facility] [address] [id number] [address] [place] [address], [place] [id number] 30 Mar, 2013 [facility] [address] [id number] [address] [place] [address], [place] [id number] 26 Mar, 2013 [facility] [address] [id number] [address] [place] [address], [place] [id number] 20 Mar, 2013 [facility] [address] [id number] [address] [place] [address], [place] [id number] 17 Mar, 2013 [facility] [address] [id number] [address] [place] [address], [place] [id number] 16 Mar, 2013 [facility] [address] [id number] [address] [place] [address], [place] [id number] 05 Mar, 2013 [facility] [address] [id number] [address] [place] [address], [place] [id number] Feb, [facility] [address] [id number] [address] [place] [address], [place] [id number] Feb, [facility] [address] [id number] [address] [place] [address], [place] [id number] Feb, [facility] [address] [id number] [address] [place] [address], [place] [id number] Feb, [facility] [address] [id number] [address] [place] [address], [place] [id number] Jan, [facility] [address] [id number] [address] [place] [address], [place] [id number] Jan, [facility] [address] [id number] [address] [place] [address], [place] [id number] Jan, [facility] [address] [id number] [address] [place] [address], [place] [id number] 23 Jan, 2013 [facility] [address] [id number] [address] [place] [address], [place] [id number] 16 Jan, 2013 [facility] [facility] [address] [id number] [address] [place] [address], [place] [id number] Dec, [facility] [address] [id number] [address] [place] [address], [place] [id number] Dec, [facility] [address] [id number] [address] [place] [address], [place] [id number] Dec, [facility] [address] [id number] [address] [place] [address], [place] [id number] November, [facility] [address] [id number] [address] [place] [address], [place] [id number] November, [facility] [address] [id number] [address] [place] [address], [place] [id number] November, [facility] [address] [id number] [address] [place] [address], [place] [id number] Oct, [facility] [address] [id number] [address] [place] [address], [place] [id number] Oct, [facility] [address] [id number] [address] [place] [address], [place] [id number] Oct, [facility] [address] [id number] [address] [place] [address], [place] [id number] Oct, [facility] [address] [id number] [address] [place] [address], [place] [id number] 18 Oct, 2012 [facility] [address] [id number] [address] [place] [address], [place] [id number] 17 Oct, 2012 [facility] [address] [id number] [address] [place] [address], [place] [id number] 15 Oct, 2012 [facility] [address] [id number] [address] [place] [address], [place] [id number] Sep, [facility] [address] [id number] [facility] [place] [id number] Sep, [facility] [address] [id number] [address] [place] [address], [place] [id number] Sep, [facility] [address] [id number] [address] [place] [address], [place] [id number] Sep, [facility] [address] [id number] [address] [place] [address], [place] [id number] Aug, [facility] [address] [id number] [address] [place] [address], [place] [id number] Aug, [facility] [address] [id number] [address] [place] [address], [place] [id number] Aug, [facility] [address] [id number] [address] [place] [address], [place] [id number] Aug, [facility] [address] [id number] [address] [place] [address], [place] [id number] Aug, [facility] [address] [id number] [address] [place] [address], [place] [id number] Aug, [facility] [address] [id number] [address] [place] [address], [place] [id number] Jul, [facility] [address] [id number] [address] [place] [address], [place] [id number] Jul, [facility] [address] [id number] [address] [place] [address], [place] [id number] Jul, [facility] [address] [id number] [address] [place] [address], [place] [id number] Jul, [facility] [address] [id number] [address] [place] [address], [place] [id number] Jul, [facility] [address] [id number] [address] [place] [address], [place] [id number] Jul, [facility] [address] [id number] [address] [place] [address], [place] [id number] Jun, [facility] [address] [id number] [address] [place] [address], [place] [id number] Jun, [facility] [address] [id number] [address] [place] [address], [place] [id number] Jun, [facility] [address] [id number] [address] [place] [address], [place] [id number] Jun, [facility] [address] [id number] [address] [place] [address], [place] [id number] Jun, [facility] [address] [id number] [address] [place] [address], [place] [id number] Jun, [facility] [address] [id number] [address] [place] [address], [place] [id number] May, [facility] [address] [id number] [address] [place] [address], [place] [id number] May, [facility] [address] [id number] [address] [place] [address], [place] [id number] May, [facility] [address] [id number] [address] [place] [address], [place] [id number] May, [facility] [address] [id number] [address] [place] [address], [place] [id number] May, [facility] [address] [id number] [address] [place] [address], [place] [id number] May, [facility] [address] [id number] [address] [place] [address], [place] [id number] May, [facility] [address] [id number] [address] [place] [address], [place] [id number] May, [facility] [address] [id number] [address] [place] [address], [place] [id number] May, [facility] [address] [id number] [address] [place] [address], [place] [id number] May, [facility] [address] [id number] [address] [place] [address], [place] [id number] 31 Apr, 2012 [facility] [address] [id number] [address] [place] [address], [place] [id number] 31 Apr, 2012 [facility] [address] [id number] [address] [place] [address], [place] [id number] 23 Apr, 2012 [facility] [address] [id number] [address] [place] [address], [place] [id number] 23 Apr, 2012 [facility] [address] [id number] [address] [place] [address], [place] [id number] 16 Apr, 2012 [facility] [address] [id number] [address] [place] [address], [place] [id number] 16 Apr, 2012 [facility] [address] [id number] [address] [place] [address], [place] [id number] 15 Apr, 2012 [facility] [address] [id number] [address] [place] [id number] 15 Apr, 2012 [facility] [address] [id number] [address] [place] [address], [place] [id number] 05 Apr, 2012 [facility] [address] [id number] [address] [place] [id number] 28 Mar, 2012 [facility] [address] [id number] [address] [place] [id number] 26 Sep2011 [facility] [address] [id number] [address] [place] [id number] 25 Sep, 2011 [facility] [address] [id number] [address] [place] [id number] 19 Sep, 2011 [facility] [address] [id number] [address] [place] [id number] 18 Sep, 2011 [facility] [address] [id number] [address] [place] [id number] 05 Sep, 2011 [facility] [address] [id number] [address] [place] [id number] Feb, [facility] [address] [id number] [address] [place] [address], [place] [id number] Feb, [facility] [address] [id number] [address] [place] [address], [place] [id number] Feb, [facility] [address] [id number] [address] [place] [address], [place] [id number] Jan, [facility] [address] [id number] [address] [place] [address], [place] [id number] Jan, [facility] [address] [id number] [address] [place] [address], [place] [id number] Jan, [facility] [address] [id number] [address] [place] [address], [place] [id number] Jan, [facility] [address] [id number] [address] [place] [address], [place] [id number] Dec, [facility] [address] [id number] [address] [place] [address], [place] [id number] November, [facility] [address] [id number] [address] [place] [address], [place] [id number] November, [facility] [address] [id number] [address] [place] [address], [place] [id number] November, [facility] [address] [id number] [address] [place] [address], [place] [id number] November, [facility] [address] [id number] [address] [place] [address], [place] [id number] November, [facility] [address] [id number] [address] [place] [address], [place] [id number] November, [facility] [address] [id number] [address] [place] [address], [place] [id number] Oct, [facility] [address] [id number] [address] [place] [address], [place] [id number] Oct, [facility] [address] [id number] [address] [place] [address], [place] [id number] Sep, [facility] [address] [id number] [address] [place] [address], [place] [id number] Sep, [facility] [address] [id number] [address] [place] [address], [place] [id number] Sep, [facility] [address] [id number] [address] [place] [address], [place] [id number] Aug, [facility] [address] [id number] [address] [place] [address], [place] [id number] Aug, [facility] [address] [id number] [address] [place] [address], [place] [id number] Aug, [facility] [address] [id number] [address] [place] [address], [place] [id number] Aug, [facility] [address] [id number] [address] [place] [address], [place] [id number] Aug, [facility] [address] [id number] [address] [place] [address], [place] [id number] Aug, [facility] [address] [id number] [address] [place] [address], [place] [id number] Jul, [facility] [address] [id number] [address] [place] [address], [place] [id number] Jul, [facility] [address] [id number] [address] [place] [address], [place] [id number] Jul, [facility] [address] [id number] [address] [place] [address], [place] [id number] Jul, [facility] [address] [id number] [address] [place] [address], [place] [id number] Jul, [facility] [address] [id number] [address] [place] [address], [place] [id number] Jul, [facility] [address] [id number] [address] [place] [address], [place] [id number] 17 Jul, 2011 [facility] [address] [id number] [address] [place] [address], [place] [id number] Jul, [facility] [address] [id number] [address] [place] [address], [place] [id number] Jul, [facility] [address] [id number] [address] [place] [address], [place] [id number] Jul, [facility] [address] [id number] [address] [place] [address], [place] [id number] Jun, [facility] [address] [id number] [address] [place] [address], [place] [id number] Jun, [facility] [address] [id number] [address] [place] [address], [place] [id number] Jun, [facility] [address] [id number] [address] [place] [address], [place] [id number] Jun, [facility] [address] [id number] [address] [place] [address], [place] [id number] May, [facility] [address] [id number] [address] [place] [address], [place] [id number] May, [facility] [address] [id number] [address] [place] [address], [place] [id number] May, [facility] [address] [id number] [address] [place] [address], [place] [id number] May, [facility] [address] [id number] [address] [place] [address], [place] [id number] Apr, [facility] [address] [id number] [address] [place] [address], [place] [id number] Apr, [facility] [address] [id number] [address] [place] [address], [place] [id number] November, [facility] [address] [id number] [address] [place] [address], [place] [id number] 18 Oct, 2010 [facility] [address] [id number] [address] [place] [address], [place] [id number] 17 Aug, 2010 [facility] [address] [id number] [address] [place] [address], [place] [id number] 28 Jun, 2010 [facility] [address] [id number] [address] [place] [address], [place] [id number] 28 Jun, 2010 [facility] [address] [id number] [address] [place] [address], [place] [id number] 27 Jun, 2010 [facility] [address] [id number] [address] [place] [address], [place] [id number] 03 Jun, 2010 [facility] [address] [id number] [address] [place] [address], [place] [id number] 29 May, 2010 [facility] [address] [id number] [address] [place] [address], [place] [id number] Apr, [facility] [address] [id number] [address] [place] [address], [place] [id number] 13 Oct, 2009 [facility] [address] [id number] [address] [place] [address], [place] [id number] 13 Aug, 2009 [facility] [address] [id number] [address] [place] [address], [place] [id number] Jul, [facility] [address] [id number] [address] [place] [address], [place] [id number] 22 Jun, 2009 [facility] [address] [id number] [address] [place] [address], [place] [id number] 16 Jun, 2009 [facility] [address] [id number] [address] [place] [address], [place] [id number] 14 Jun, 2009 [facility] [address] [id number] [address] [place] [address], [place] [id number] 14 Jun, 2009 [facility] [address] [id number] [address] [place] [address], [place] [id number] 09 May, 2009 [facility] [address] [id number] [address] [place] [address], [place] [id number] Apr, [facility] [address] [facility] [id number] [address] [place] [id number] 15 Mar, 2009 [facility] [address] [facility] [id number] [address] [place] [id number] 14 Mar, 2009 [facility] [address] [facility] [id number] [address] [place] [id number] 11 Dec, 2008 IMMUNIZATIONS No Known Immunizations SOCIAL HISTORY Never Assessed REASON FOR VISIT Upset patient PLAN OF CARE VITAL SIGNS MEDICATIONS Unknown [...]
--- OUTSIDE RECORDS SUMMARY | 2019-09-01 05:52 | XMS REPORT ---
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 [place] [address], [place] [address] Apr, [facility] [address] [id number] [address] [place] [address], [place] [address] Apr, [facility] [address] [id number] [address] [place] [address], [place] [address] Apr, [facility] [address] [id number] [address] [place] [address], [place] [address] Apr, [facility] [address] [id number] [address] [place] [address], [place] [address] Apr, [facility] [address] [id number] [address] [place] [address], [place] [address] Apr, [facility] [address] [id number] [address] [place] [address], [place] [address] Apr, [facility] [address] [id number] [address] [place] [address], [place] [address] Apr, [facility] [address] [id number] [address] [place] [address], [place] [address] 29 Mar, 2013 [facility] [address] [id number] [address] [place] [address], [place] [address] 29 Mar, 2013 [facility] [address] [id number] [address] [place] [address], [place] [address] 29 Mar, 2013 [facility] [address] [id number] [address] [place] [address], [place] [address] 29 Mar, 2013 [facility] [address] [id number] [address] [place] [address], [place] [address] 10 Mar, 2013 [facility] [address] [id number] [address] [place] [address] 10 Mar, 2013 [facility] [address] [id number] [address] [place] [address] Sep, 2013 [facility] [address] [id number] [address] [place] [address], [place] [address] 04 Sep, 2013 [facility] [address] [id number] [address] [place] [address], [place] [address] 02 Mar, 2013 [facility] [address] [id number] [address] [place] [address], [place] [address] Mar, 2013 [facility] [address] [id number] [address] [place] [address], [place] [address] Mar, [facility] [address] [id number] [address] [place] [address], [place] [address] Mar, [facility] [address] [id number] [address] [place] [address], [place] [address] Feb, [facility] [address] [id number] [address] [place] [address], [place] [address] Feb, [facility] [address] [id number] [address] [place] [address], [place] [address] Jan, [facility] [address] [id number] [address] [place] [address], [place] [address] Jan, [facility] [address] [id number] [address] [place] [address], [place] [address] Jan, [facility] [address] [id number] [address] [place] [address], [place] [address] Jan, [facility] [address] [id number] [address] [place] [address], [place] [address] Dec, [facility] [address] [id number] [address] [place] [address], [place] [address] Dec, [facility] [address] [id number] [address] [place] [address], [place] [address] Dec, [facility] [address] [id number] [address] [place] [address], [place] [address] Dec, [facility] [address] [id number] [address] [place] [address], [place] [address] Dec, [facility] [address] [id number] [address] [place] [address], [place] [address] Dec, [facility] [address] [id number] [address] [place] [address], [place] [address] November, [facility] [address] [id number] [address] [place] [address], [place] [address] November, [facility] [address] [id number] [address] [place] [address], [place] [address] November, [facility] [address] [id number] [address] [place] [address], [place] [address] November, [facility] [address] [id number] [address] [place] [address], [place] [address] November, [facility] [address] [id number] [address] [place] [address], [place] [address] November, [facility] [id number] November, [facility] [address] [id number] [address] [place] [address], [place] [address] November, [facility] [address] [id number] [address] [place] [address], [place] [address] November, [facility] [address] [id number] [address] [place] [address], [place] [address] November, [facility] [address] [id number] [address] [place] [address], [place] [address] November, [facility] [address] [id number] [address] [place] [address], [place] [address] November, [facility] [address] [id number] [address] [place] [address], [place] [address] Oct, [facility] [address] [id number] [address] [place] [address], [place] [address] Oct, [facility] [address] [id number] [address] [place] [address], [place] [address] Oct, [facility] [address] [id number] [address] [place] [address], [place] [address] Oct, [facility] [address] [id number] [address] [place] [address], [place] [address] Oct, [facility] [address] [id number] [address] [place] [address], [place] [address] Oct, [facility] [address] [id number] [facility] [place] [address] Oct, [facility] [address] [id number] [facility] [place] [address] Oct, [facility] [address] [id number] [facility] [place] [address] Oct, [facility] [address] [id number] [address] [place] [address], [place] [address] Oct, [facility] [address] [id number] [address] [place] [address], [place] [address] Oct, [facility] [address] [id number] [address] [place] [address], [place] [address] Oct, [facility] [address] [id number] [address] [place] [address], [place] [address] Oct, [facility] [address] [id number] [address] [place] [address], [place] [address] Oct, [facility] [address] [id number] [address] [place] [address], [place] [address] Oct, [facility] [address] [id number] [address] [place] [address], [place] [address] Sep, [facility] [address] [id number] [address] [place] [address], [place] [address] Sep, [facility] [address] [id number] [address] [place] [address], [place] [address] Sep, [facility] [address] [id number] [address] [place] [address], [place] [address] Sep, [facility] [address] [id number] [address] [place] [address], [place] [address] Aug, [facility] [address] [id number] [address] [place] [address], [place] [address] Aug, [facility] [address] [id number] [address] [place] [address], [place] [address] Aug, [facility] [address] [id number] [address] [place] [address], [place] [address] Aug, [facility] [address] [id number] [address] [place] [address], [place] [address] Jul, [facility] [address] [id number] [address] [place] [address], [place] [address] Jul, [facility] [address] [id number] [address] [place] [address], [place] [address] Jul, [facility] [address] [id number] [address] [place] [address], [place] [address] Jul, [facility] [address] [id number] [address] [place] [address], [place] [address] Jul, [facility] [address] [id number] [address] [place] [address], [place] [address] Jul, [facility] [address] [id number] [address] [place] [address], [place] [address] Jul, [facility] [address] [id number] [address] [place] [address], [place] [address] Jul, [facility] [address] [id number] [address] [place] [address], [place] [address] Jul, [facility] [address] [id number] [address] [place] [address], [place] [address] Jul, [facility] [address] [id number] [address] [place] [address], [place] [address] Jul, [facility] [address] [id number] [address] [place] [address], [place] [address] Jul, [facility] [address] [id number] [address] [place] [address], [place] [address] Jul, [facility] [address] [id number] [address] [place] [address], [place] [address] Jul, [facility] [address] [id number] [address] [place] [address], [place] [address] Jun, [facility] [address] [id number] [address] [place] [address], [place] [address] Jun, [facility] [address] [id number] [address] [place] [address], [place] [address] Jun, [facility] [address] [id number] [address] [place] [address], [place] [address] Jun, [facility] [address] [id number] [address] [place] [address], [place] [address] May, [facility] [address] [id number] [address] [place] [address], [place] [address] May, [facility] [address] [id number] [address] [place] [address], [place] [address] May, [facility] [address] [id number] [address] [place] [address], [place] [address] May, [facility] [address] [id number] [address] [place] [address], [place] [address] May, [facility] [address] [id number] [address] [place] [address] May, [facility] [address] [id number] [address] [place] [address] May, [facility] [address] [id number] [address] [place] [id number] May, [facility] [address] [id number] [address] [place] [address], [place] [address] Apr, [facility] [address] [id number] [address] [place] [address], [place] [address] Apr, [facility] [address] [id number] [address] [place] [address] Apr, [facility] [address] [id number] [address] [place] [address] Apr, [facility] [address] [id number] [address] [place] [address], [place] [address] Apr, [facility] [address] [id number] [address] [place] [address], [place] [address] Apr, [facility] [address] [id number] [address] [place] [address], [place] [address] 30 Mar, 2013 [facility] [address] [id number] [address] [place] [address], [place] [address] 26 Mar, 2013 [facility] [address] [id number] [address] [place] [address], [place] [address] 20 Mar, 2013 [facility] [address] [id number] [address] [place] [address], [place] [address] 17 Mar, 2013 [facility] [address] [id number] [address] [place] [address], [place] [address] 16 Mar, 2013 [facility] [address] [id number] [address] [place] [address], [place] [address] 05 Mar, 2013 [facility] [address] [id number] [address] [place] [address], [place] [address] Feb, [facility] [address] [id number] [address] [place] [address], [place] [address] Feb, [facility] [address] [id number] [address] [place] [address], [place] [address] Feb, [facility] [address] [id number] [address] [place] [address], [place] [address] Feb, [facility] [address] [id number] [address] [place] [address], [place] [address] Jan, [facility] [address] [id number] [address] [place] [address], [place] [address] Jan, [facility] [address] [id number] [address] [place] [address], [place] [address] Jan, [facility] [address] [id number] [address] [place] [address], [place] [address] 23 Jan, 2013 [facility] [address] [id number] [address] [place] [address], [place] [address] 16 Jan, 2013 [facility] [address] [id number] [address] [place] [address], [place] [address] Dec, [facility] [address] [id number] [address] [place] [address], [place] [address] Dec, [facility] [address] [id number] [address] [place] [address], [place] [address] Dec, [facility] [address] [id number] [address] [place] [address], [place] [address] November, [facility] [address] [id number] [address] [place] [address], [place] [address] November, [facility] [address] [id number] [address] [place] [address], [place] [address] November, [facility] [address] [id number] [address] [place] [address], [place] [address] Oct, [facility] [address] [id number] [address] [place] [address], [place] [address] Oct, [facility] [address] [id number] [address] [place] [address], [place] [address] Oct, [facility] [address] [id number] [address] [place] [address], [place] [address] Oct, [facility] [address] [id number] [address] [place] [address], [place] [address] 18 Oct, 2012 [facility] [address] [id number] [address] [place] [address], [place] [address] 17 Oct, 2012 [facility] [address] [id number] [address] [place] [address], [place] [address] 15 Oct, 2012 [facility] [address] [id number] [address] [place] [address], [place] [address] Sep, [facility] [address] [id number] [facility] [place] [address] Sep, [facility] [address] [id number] [address] [place] [address], [place] [address] Sep, [facility] [address] [id number] [address] [place] [address], [place] [address] Sep, [facility] [address] [address] [id number] [address] [place] [address], [place] [address] Aug, [facility] [address] [id number] [address] [place] [address], [place] [address] Aug, [facility] [address] [id number] [address] [place] [address], [place] [address] Aug, [facility] [address] [id number] [address] [place] [address], [place] [address] Aug, [facility] [address] [id number] [address] [place] [address], [place] [address] Aug, [facility] [address] [id number] [address] [place] [address], [place] [address] Aug, [facility] [address] [id number] [address] [place] [address], [place] [address] Jul, [facility] [address] [id number] [address] [place] [address], [place] [address] Jul, [facility] [address] [id number] [address] [place] [address], [place] [address] Jul, [facility] [address] [id number] [address] [place] [address], [place] [address] Jul, [facility] [address] [id number] [address] [place] [address], [place] [address] Jul, [facility] [address] [id number] [address] [place] [address], [place] [address] Jul, [facility] [address] [id number] [address] [place] [address], [place] [address] Jun, [facility] [address] [id number] [address] [place] [address], [place] [address] Jun, [facility] [address] [id number] [address] [place] [address], [place] [address] Jun, [facility] [address] [id number] [address] [place] [address], [place] [address] Jun, [facility] [address] [id number] [address] [place] [address], [place] [address] Jun, [facility] [address] [id number] [address] [place] [address], [place] [address] Jun, [facility] [address] [id number] [address] [place] [address], [place] [address] May, [facility] [address] [id number] [address] [place] [address], [place] [address] May, [facility] [address] [id number] [address] [place] [address], [place] [address] May, [facility] [address] [id number] [address] [place] [address], [place] [address] May, [facility] [address] [id number] [address] [place] [address], [place] [address] May, [facility] [address] [id number] [address] [place] [address], [place] [address] May, [facility] [address] [id number] [address] [place] [address], [place] [address] May, [facility] [address] [id number] [address] [place] [address], [place] [address] May, [facility] [address] [id number] [address] [place] [address], [place] [address] May, [facility] [address] [id number] [address] [place] [address], [place] [address] May, [facility] [address] [id number] [address] [place] [address], [place] [address] 31 Apr, 2012 [facility] [address] [id number] [address] [place] [address], [place] [address] 31 Apr, 2012 [facility] [address] [id number] [address] [place] [address], [place] [address] 23 Apr, 2012 [facility] [address] [id number] [address] [place] [address], [place] [address] 23 Apr, 2012 [facility] [address] [id number] [address] [place] [address], [place] [address] 16 Apr, 2012 [facility] [address] [id number] [address] [place] [address], [place] [address] 16 Apr, 2012 [facility] [address] [id number] [address] [place] [address], [place] [address] 15 Apr, 2012 [facility] [address] [id number] [address] [place] [address] 15 Apr, 2012 [facility] [address] [id number] [address] [place] [address], [place] [address] 05 Apr, 2012 [facility] [address] [id number] [address] [place] [address] 28 Mar, 2012 [facility] [address] [id number] [address] [place] [id number] 26 Sep2011 [facility] [address] [id number] [address] [place] [id number] 25 Sep, 2011 [facility] [address] [id number] [address] [place] [id number] 19 Sep, 2011 [facility] [address] [id number] [address] [place] [id number] 18 Sep, 2011 [facility] [address] [id number] [address] [place] [id number] 05 Sep, 2011 [facility] [address] [id number] [address] [place] [address] Feb, [facility] [address] [id number] [address] [place] [address], [place] [address] Feb, [facility] [address] [id number] [address] [place] [address], [place] [address] Feb, [facility] [address] [id number] [address] [place] [address], [place] [address] Jan, [facility] [address] [id number] [address] [place] [address], [place] [address] Jan, [facility] [address] [id number] [address] [place] [address], [place] [address] Jan, [facility] [address] [id number] [address] [place] [address], [place] [address] Jan, [facility] [address] [id number] [address] [place] [address], [place] [address] Dec, [facility] [address] [id number] [address] [place] [address], [place] [address] November, [facility] [address] [id number] [address] [place] [address], [place] [address] November, [facility] [address] [id number] [address] [place] [address], [place] [address] November, [facility] [address] [id number] [address] [place] [address], [place] [address] November, [facility] [address] [id number] [address] [place] [address], [place] [address] November, [facility] [address] [id number] [address] [place] [address], [place] [address] November, [facility] [address] [id number] [address] [place] [address], [place] [address] Oct, [facility] [address] [id number] [address] [place] [address], [place] [address] Oct, [facility] [address] [id number] [address] [place] [address], [place] [address] Sep, [facility] [address] [id number] [address] [place] [address], [place] [address] Sep, [facility] [address] [id number] [address] [place] [address], [place] [address] Sep, [facility] [address] [id number] [address] [place] [address], [place] [address] Aug, [facility] [address] [id number] [address] [place] [address], [place] [address] Aug, [facility] [address] [id number] [address] [place] [address], [place] [address] Aug, [facility] [address] [id number] [address] [place] [address], [place] [address] Aug, [facility] [address] [id number] [address] [place] [address], [place] [address] Aug, [facility] [address] [id number] [address] [place] [address], [place] [address] Aug, [facility] [address] [id number] [address] [place] [address], [place] [address] Jul, [facility] [address] [id number] [address] [place] [address], [place] [address] Jul, [facility] [address] [id number] [address] [place] [address], [place] [address] Jul, [facility] [address] [id number] [address] [place] [address], [place] [address] Jul, [facility] [address] [id number] [address] [place] [address], [place] [address] Jul, [facility] [address] [id number] [address] [place] [address], [place] [address] Jul, [facility] [address] [id number] [address] [place] [address], [place] [address] 17 Jul, 2011 [facility] [address] [id number] [address] [place] [address], [place] [address] Jul, [facility] [address] [id number] [address] [place] [address], [place] [address] Jul, [facility] [address] [id number] [address] [place] [address], [place] [address] Jul, [facility] [address] [id number] [address] [place] [address], [place] [address] Jun, [facility] [address] [id number] [address] [place] [address], [place] [address] Jun, [facility] [address] [id number] [address] [place] [address], [place] [address] Jun, [facility] [address] [id number] [address] [place] [address], [place] [address] Jun, [facility] [address] [id number] [address] [place] [address], [place] [address] May, [facility] [address] [id number] [address] [place] [address], [place] [address] May, [facility] [address] [id number] [address] [place] [address], [place] [address] May, [facility] [address] [id number] [address] [place] [address], [place] [address] May, [facility] [address] [id number] [address] [place] [address], [place] [address] Apr, [facility] [address] [id number] [address] [place] [address], [place] [address] Apr, [facility] [address] [id number] [address] [place] [address], [place] [address] November, [facility] [address] [id number] [address] [place] [address], [place] [address] 18 Oct, 2010 [facility] [address] [id number] [address] [place] [address], [place] [address] 17 Aug, 2010 [facility] [address] [id number] [address] [place] [address], [place] [address] 28 Jun, 2010 [facility] [address] [id number] [address] [place] [address], [place] [address] 28 Jun, 2010 [facility] [address] [id number] [address] [place] [address], [place] [address] 27 Jun, 2010 [facility] [address] [id number] [address] [place] [address], [place] [address] 03 Jun, 2010 [facility] [address] [id number] [address] [place] [address], [place] [address] 29 May, 2010 [facility] [address] [id number] [address] [place] [address], [place] [address] Apr, [facility] [address] [id number] [address] [place] [address], [place] [address] 13 Oct, 2009 [facility] [address] [id number] [address] [place] [address], [place] [address] 13 Aug, 2009 [facility] [address] [id number] [address] [place] [address], [place] [address] Jul, [facility] [address] [id number] [address] [place] [address], [place] [address] 22 Jun, 2009 [facility] [address] [id number] [address] [place] [address], [place] [address] 16 Jun, 2009 [facility] [address] [id number] [address] [place] [address], [place] [address] 14 Jun, 2009 [facility] [address] [id number] [address] [place] [address], [place] [address] 14 Jun, 2009 [facility] [address] [id number] [address] [place] [address], [place] [address] 09 May, 2009 [facility] [address] [id number] [address] [place] [address], [place] [address] Apr, [facility] [address] [facility] [id number] [address] [place] [id number] 15 Mar, 2009 [facility] [address] [facility] [id number] [address] [place] [address] 14 Mar, 2009 [facility] [address] [facility] [id number] [address] [place] [id number] 11 Dec, 2008 IMMUNIZATIONS No Known Immunizations SOCIAL HISTORY Never Assessed REASON FOR VISIT Test results PLAN OF CARE VITAL SIGNS MEDICATIONS Unknown [...]
--- OUTSIDE RECORDS SUMMARY | 2019-09-01 05:52 | XMS REPORT ---
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 Apr, [facility] [address] [id number] [address] [place] [address], [place] [address] Apr, [facility] [address] [id number] [address] [place] [address], [place] [address] Apr, [facility] [address] [id number] [address] [place] [address], [place] [address] Apr, [facility] [address] [id number] [address] [place] [address], [place] [address] Apr, [facility] [address] [id number] [address] [place] [address], [place] [address] Apr, [facility] [address] [id number] [address] [place] [address], [place] [address] Apr, [facility] [address] [id number] [address] [place] [address], [place] [address] Apr, [facility] [address] [id number] [address] [place] [address], [place] [address] Apr, [facility] [address] [id number] [address] [place] [address], [place] [address] 29 Mar, 2013 [facility] [address] [id number] [address] [place] [address], [place] [address] 29 Mar, 2013 [facility] [address] [id number] [address] [place] [address], [place] [address] 29 Mar, 2013 [facility] [address] [id number] [address] [place] [address], [place] [address] 29 Mar, 2013 [facility] [address] [id number] [address] [place] [address], [place] [address] 10 Mar, 2013 [facility] [address] [id number] [address] [place] [address], [place] [address] 10 Mar, 2013 [facility] [address] [id number] [address] [place] [address] Mar, 2013 [facility] [address] [id number] [address] [place] [address], [place] [address] 04 Sep, 2013 [facility] [address] [id number] [address] [place] [address], [place] [address] Mar, 2013 [facility] [address] [id number] [address] [place] [address], [place] [address] Mar, 2013 [facility] [address] [id number] [address] [place] [address], [place] [address] Mar, [facility] [address] [id number] [address] [place] [address], [place] [address] Mar, [facility] [address] [id number] [address] [place] [address], [place] [address] Feb, [facility] [address] [id number] [address] [place] [address], [place] [address] Feb, [facility] [address] [id number] [address] [place] [address], [place] [address] Jan, [facility] [address] [id number] [address] [place] [address], [place] [address] Jan, [facility] [address] [id number] [address] [place] [address], [place] [address] Jan, [facility] [address] [id number] [address] [place] [address], [place] [address] Jan, [facility] [address] [id number] [address] [place] [address], [place] [address] Dec, [facility] [address] [id number] [address] [place] [address], [place] [address] Dec, [facility] [address] [id number] [address] [place] [address], [place] [address] Dec, [facility] [address] [id number] [address] [place] [address], [place] [address] Dec, [facility] [address] [id number] [address] [place] [address], [place] [address] Dec, [facility] [address] [id number] [address] [place] [address], [place] [address] Dec, [facility] [address] [id number] [address] [place] [address], [place] [address] November, [facility] [address] [id number] [address] [place] [address], [place] [address] November, [facility] [address] [id number] [address] [place] [address], [place] [address] November, [facility] [address] [id number] [address] [place] [address], [place] [address] November, [facility] [address] [id number] [address] [place] [address], [place] [address] November, [facility] [address] [id number] [address] [place] [address], [place] [address] November, [facility] [place] [id number] November, [facility] [address] [id number] [address] [place] [address], [place] [address] November, [facility] [address] [id number] [address] [place] [address], [place] [address] November, [facility] [address] [id number] [address] [place] [address], [place] [address] November, [facility] [address] [id number] [address] [place] [address], [place] [address] November, [facility] [address] [id number] [address] [place] [address], [place] [address] November, [facility] [address] [id number] [address] [place] [address], [place] [address] Oct, [facility] [address] [id number] [address] [place] [address], [place] [address] Oct, [facility] [address] [id number] [address] [place] [address], [place] [address] Oct, [facility] [address] [id number] [address] [place] [address], [place] [address] Oct, [facility] [address] [id number] [address] [place] [address], [place] [address] Oct, [facility] [address] [id number] [address] [place] [address], [place] [address] Oct, [facility] [address] [id number] [facility] [place] [address] Oct, [facility] [address] [id number] [address] [place] [address], [place] [address] Oct, [facility] [address] [id number] [address] [place] [address], [place] [address] Oct, [facility] [address] [id number] [address] [place] [address], [place] [address] Oct, [facility] [address] [id number] [address] [place] [address], [place] [address] Oct, [facility] [address] [id number] [address] [place] [address], [place] [address] Oct, [facility] [address] [id number] [address] [place] [address], [place] [address] Oct, [facility] [address] [id number] [address] [place] [address], [place] [address] Oct, [facility] [address] [id number] [address] [place] [address], [place] [address] Oct, [facility] [address] [id number] [address] [place] [address], [place] [address] Sep, [facility] [address] [id number] [address] [place] [address], [place] [address] Sep, [facility] [address] [id number] [address] [place] [address], [place] [address] Sep, [facility] [address] [id number] [address] [place] [address], [place] [address] Sep, [facility] [address] [id number] [address] [place] [address], [place] [address] Aug, [facility] [address] [id number] [address] [place] [address], [place] [address] Aug, [facility] [address] [id number] [address] [place] [address], [place] [address] Aug, [facility] [address] [id number] [address] [place] [address], [place] [address] Aug, [facility] [address] [id number] [address] [place] [address], [place] [address] Jul, [facility] [address] [id number] [address] [place] [address], [place] [address] Jul, [facility] [address] [id number] [address] [place] [address], [place] [address] Jul, [facility] [address] [id number] [address] [place] [address], [place] [address] Jul, [facility] [address] [id number] [address] [place] [address], [place] [address] Jul, [facility] [address] [id number] [address] [place] [address], [place] [address] Jul, [facility] [address] [id number] [address] [place] [address], [place] [address] Jul, [facility] [address] [id number] [address] [place] [address], [place] [address] Jul, [facility] [address] [id number] [address] [place] [address], [place] [address] Jul, [facility] [address] [id number] [address] [place] [address], [place] [address] Jul, [facility] [address] [id number] [address] [place] [address], [place] [address] Jul, [facility] [address] [id number] [address] [place] [address], [place] [address] Jul, [facility] [address] [id number] [address] [place] [address], [place] [address] Jul, [facility] [address] [id number] [address] [place] [address], [place] [address] Jul, [facility] [address] [id number] [address] [place] [address], [place] [address] Jun, [facility] [address] [id number] [address] [place] [address], [place] [address] Jun, [facility] [address] [id number] [address] [place] [address], [place] [address] Jun, [facility] [address] [id number] [address] [place] [address], [place] [address] Jun, [facility] [address] [id number] [address] [place] [address], [place] [address] May, [facility] [address] [id number] [address] [place] [address], [place] [address] May, [facility] [address] [id number] [address] [place] [address], [place] [address] May, [facility] [address] [id number] [address] [place] [address] May, [facility] [address] [id number] [address] [place] [address], [place] [address] May, [facility] [address] [id number] [address] [place] [address] May, [facility] [address] [id number] [address] [place] [address] May, [facility] [address] [id number] [address] [place] [address] May, [facility] [address] [id number] [address] [place] [address], [place] [address] Apr, [facility] [address] [id number] [address] [place] [address] Apr, [facility] [address] [id number] [address] [place] [address] Apr, [facility] [address] [id number] [address] [place] [address] Apr, [facility] [address] [id number] [address] [place] [address], [place] [address] Apr, [facility] [address] [id number] [address] [place] [address], [place] [address] Apr, [facility] [address] [id number] [address] [place] [address], [place] [address] 30 Mar, 2013 [facility] [address] [id number] [address] [place] [address], [place] [address] 26 Mar, 2013 [facility] [address] [id number] [address] [place] [address], [place] [address] 20 Mar, 2013 [facility] [address] [id number] [address] [place] [address], [place] [address] 17 Mar, 2013 [facility] [address] [id number] [address] [place] [address], [place] [address] 16 Mar, 2013 [facility] [address] [id number] [address] [place] [address], [place] [address] 05 Mar, 2013 [facility] [address] [id number] [address] [place] [address], [place] [address] Feb, [facility] [address] [id number] [address] [place] [address], [place] [address] Feb, [facility] [address] [id number] [address] [place] [address], [place] [address] Feb, [facility] [address] [id number] [address] [place] [address], [place] [address] Feb, [facility] [address] [id number] [address] [place], [place] [address], [place] [address] Jan, [facility] [address] [id number] [address] [place] [address], [place] [address] Jan, [facility] [address] [id number] [address] [place] [address], [place] [address] Jan, [facility] [address] [id number] [address] [place] [address], [place] [address] 23 Jan, 2013 [facility] [address] [id number] [address] [place] [address], [place] [address] Jan, [facility] [address] [id number] [address] [place] [address], [place] [address] Dec, [facility] [address] [id number] [address] [place] [address], [place] [address] Dec, [facility] [address] [id number] [address] [place] [address], [place] [address] Dec, [facility] [address] [id number] [address] [place] [address], [place] [address] November, [facility] [address] [id number] [address] [place] [address], [place] [address] November, [facility] [address] [id number] [address] [place] [address], [place] [address] November, [facility] [address] [id number] [address] [place] [address], [place] [address] Oct, [facility] [address] [id number] [address] [place] [address], [place] [address] Oct, [facility] [address] [id number] [address] [place] [address], [place] [address] Oct, [facility] [address] [id number] [address] [place] [address], [place] [address] Oct, [facility] [address] [id number] [address] [place] [address], [place] [address] 18 Oct, 2012 [facility] [address] [id number] [address] [place] [address], [place] [address] 17 Oct, 2012 [facility] [address] [id number] [address] [place] [address], [place] [address] 15 Oct, 2012 [facility] [address] [id number] [address] [place] [address], [place] [address] Sep, [facility] [address] [id number] [facility] [place] [address] Sep, [facility] [address] [id number] [address] [place] [address], [place] [address] Sep, [facility] [address] [id number] [address] [place] [address], [place] [address] Sep, [facility] [address] [id number] [address] [place] [address], [place] [address] Aug, [facility] [address] [id number] [address] [place] [address], [place] [address] Aug, [facility] [address] [id number] [address] [place] [address], [place] [address] Aug, [facility] [address] [id number] [address] [place] [address], [place] [address] Aug, [facility] [address] [id number] [address] [place] [address], [place] [address] Aug, [facility] [address] [id number] [address] [place] [address], [place] [address] Aug, [facility] [address] [id number] [address] [place] [address], [place] [address] Jul, [facility] [address] [id number] [address] [place] [address], [place] [address] Jul, [facility] [address] [id number] [address] [place] [address], [place] [address] Jul, [facility] [address] [id number] [address] [place] [address], [place] [address] Jul, [facility] [address] [id number] [address] [place] [address], [place] [address] Jul, [facility] [address] [id number] [address] [place] [address], [place] [address] Jul, [facility] [address] [id number] [address] [place] [address], [place] [address] Jun, [facility] [address] [id number] [address] [place] [address], [place] [address] Jun, [facility] [address] [id number] [address] [place] [address], [place] [address] Jun, [facility] [address] [id number] [address] [place] [address], [place] [address] Jun, [facility] [address] [id number] [address] [place] [address], [place] [address] Jun, [facility] [address] [id number] [address] [place] [address], [place] [address] Jun, [facility] [address] [id number] [address] [place] [address], [place] [address] May, [facility] [address] [id number] [address] [place] [address], [place] [address] May, [facility] [address] [id number] [address] [place] [address], [place] [address] May, [facility] [address] [id number] [address] [place] [address], [place] [address] May, [facility] [address] [id number] [address] [place] [address], [place] [address] May, [facility] [address] [id number] [address] [place] [address], [place] [address] May, [facility] [address] [id number] [address] [place] [address], [place] [address] May, [facility] [address] [id number] [address] [place] [address], [place] [address] May, [facility] [address] [id number] [address] [place] [address], [place] [address] May, [facility] [address] [id number] [address] [place] [address], [place] [address] May, [facility] [address] [id number] [address] [place] [address], [place] [address] 31 Apr, 2012 [facility] [address] [id number] [address] [place] [address], [place] [address] 31 Apr, 2012 [facility] [address] [id number] [address] [place] [address], [place] [address] 23 Apr, 2012 [facility] [address] [id number] [address] [place] [address], [place] [address] 23 Apr, 2012 [facility] [address] [id number] [address] [place] [address], [place] [address] 16 Apr, 2012 [facility] [address] [id number] [address] [place] [address], [place] [address] 16 Apr, 2012 [facility] [address] [id number] [address] [place] [address], [place] [address] 15 Apr, 2012 [facility] [address] [id number] [address] [place] [address] 15 Apr, 2012 [facility] [address] [id number] [address] [place] [address], [place] [address] 05 Apr, 2012 [facility] [address] [id number] [address] [place] [address] 28 Mar, 2012 [facility] [address] [id number] [address] [place] [address] 26 Sep2011 [facility] [address] [id number] [address] [place] [address] 25 Sep, 2011 [facility] [address] [id number] [address] [place] [address] 19 Sep, 2011 [facility] [address] [id number] [address] [place] [address] 18 Sep, 2011 [facility] [address] [id number] [address] [place] [address] 05 Sep, 2011 [facility] [address] [id number] [address] [place] [address] Feb, [facility] [address] [id number] [address] [place] [address], [place] [address] Feb, [facility] [address] [id number] [address] [place] [address], [place] [address] Feb, [facility] [address] [id number] [address] [place] [address], [place] [address] Jan, [facility] [address] [id number] [address] [place] [address], [place] [address] Jan, [facility] [address] [id number] [address] [place] [address], [place] [address] Jan, [facility] [address] [id number] [address] [place] [address], [place] [address] Jan, [facility] [address] [id number] [address] [place] [address], [place] [address] Dec, [facility] [address] [id number] [address] [place] [address], [place] [address] November, [facility] [address] [id number] [address] [place] [address], [place] [address] November, [facility] [address] [id number] [address] [place] [address], [place] [address] November, [facility] [address] [id number] [address] [place] [address], [place] [address] November, [facility] [address] [id number] [address] [place] [address], [place] [address] November, [facility] [address] [id number] [address] [place] [address], [place] [address] November, [facility] [address] [id number] [address] [place] [address], [place] [address] Oct, [facility] [address] [id number] [address] [place] [address], [place] [address] Oct, [facility] [address] [id number] [address] [place] [address], [place] [address] Sep, [facility] [address] [id number] [address] [place] [address], [place] [address] Sep, [facility] [address] [id number] [address] [place] [address], [place] [address] Sep, [facility] [address] [id number] [address] [place] [address], [place] [address] Aug, [facility] [address] [id number] [address] [place] [address], [place] [address] Aug, [facility] [address] [id number] [address] [place] [address], [place] [address] Aug, [facility] [address] [id number] [address] [place] [address], [place] [address] Aug, [facility] [address] [id number] [address] [place] [address], [place] [address] Aug, [facility] [address] [id number] [address] [place] [address], [place] [address] Aug, [facility] [address] [id number] [address] [place] [address], [place] [address] Jul, [facility] [address] [id number] [address] [place] [address], [place] [address] Jul, [facility] [address] [id number] [address] [place] [address], [place] [address] Jul, [facility] [address] [id number] [address] [place] [address], [place] [address] Jul, [facility] [address] [id number] [address] [place] [address], [place] [address] Jul, [facility] [address] [id number] [address] [place] [address], [place] [address] Jul, [facility] [address] [id number] [address] [place] [address], [place] [address] 17 Jul, 2011 [facility] [address] [id number] [address] [place] [address], [place] [address] Jul, [facility] [address] [id number] [address] [place] [address], [place] [address] Jul, [facility] [address] [id number] [address] [place] [address], [place] [address] Jul, [facility] [address] [id number] [address] [place] [address], [place] [address] Jun, [facility] [address] [id number] [address] [place] [address], [place] [address] Jun, [facility] [address] [id number] [address] [place] [address], [place] [address] Jun, [facility] [address] [id number] [address] [place] [address], [place] [address] Jun, [facility] [address] [id number] [address] [place] [address], [place] [address] May, [facility] [address] [id number] [address] [place] [address], [place] [address] May, [facility] [address] [id number] [address] [place] [address], [place] [address] May, [facility] [address] [id number] [address] [place] [address], [place] [address] May, [facility] [address] [id number] [address] [place] [address], [place] [address] Apr, [facility] [address] [id number] [address] [place] [address], [place] [address] Apr, [facility] [address] [id number] [address] [place] [address], [place] [address] November, [facility] [address] [id number] [address] [place] [address], [place] [address] 18 Oct, 2010 [facility] [address] [id number] [address] [place] [address], [place] [address] 17 Aug, 2010 [facility] [address] [id number] [address] [place] [address], [place] [address] 28 Jun, 2010 [facility] [address] [id number] [address] [place] [address], [place] [address] 28 Jun, 2010 [facility] [address] [id number] [address] [place] [address], [place] [address] 27 Jun, 2010 [facility] [address] [id number] [address] [place] [address], [place] [address] 03 Jun, 2010 [facility] [address] [id number] [address] [place] [address], [place] [address] 29 May, 2010 [facility] [address] [id number] [address] [place] [address], [place] [address] 27 Apr, 2010 [facility] [address] [id number] [address] [place] [address], [place] [address] 13 Oct, 2009 [facility] [address] [id number] [address] [place] [address], [place] [address] 13 Aug, 2009 [facility] [address] [id number] [address] [place] [address], [place] [address] 20 Jul, 2009 [facility] [address] [id number] [address] [place] [address], [place] [address] 22 Jun, 2009 [facility] [address] [id number] [address] [place] [address], [place] [address] 16 Jun, 2009 [facility] [address] [id number] [address] [place] [address], [place] [address] 14 Jun, 2009 [facility] [address] [id number] [address] [place] [address], [place] [address] 14 Jun, 2009 [facility] [address] [id number] [address] [place] [address], [place] [address] 09 May, 2009 [facility] [address] [id number] [address] [place] [address] [address] Apr, [facility] [address] [facility] [id number] [address] [place] [address] 15 Mar, 2009 [facility] [address] [facility] [id number] [address] [place] [address] 14 Mar, 2009 [facility] [address] [facility] [id number] [address] [place] [address] 11 Dec, 2008 IMMUNIZATIONS No Known Immunizations SOCIAL HISTORY Never Assessed REASON FOR VISIT Stomach ache started about 6 weeks ago, severe cramps, diarrhea then constipatio n alternating for days at a time. Denies nausea or vomiting. CBrumbackRN PLAN OF CARE Activity Details Follow Up prn Reason: VITAL SIGNS Height 66.0 in 2017-09-07 Weight 204.9 lbs 2017-09-07 Temperature 97.8 degrees Fahrenheit 2017-09-07 Heart Rate 84 bpm 2017-09-07 Respiratory Rate 18 2017-09-07 BMI 33.07 kg/m2 2017-09-07 Blood pressure systolic 114 mmHg 2017-09-07 Blood pressure diastolic 86 mmHg 2017-09-07 MEDICATIONS Medication Instructions Dosage Frequency Start Date End Date Duration S tatus Promethazine-Codeine 6.25-10 MG/5ML Orally every 6 hrs 2.5 -5 ml as needed 6h Jul, Not-Taking Duloxetine HCl 60 MG TAKE TWO CAPSULES BY MOUTH ONCE DAILY IN THE MORNING 30 Active Tramadol HCl 50 mg Orally 3 times a day 1 tablet 8h Jun, 28 days Active Albuterol Sulfate (2.5 MG/3ML) 0.083% Inhalation Three times a day 3 ml as needed 8h Jul, Active Omeprazole 20 mg Orally twice a day 1 capsule 12h Jul, 30 day(s) Active RESULTS No Results PROCEDURES Procedure Date Ordered Result Body Site LAB NOT BILLED BY [facility] Sep 07, 2017 VENANDRE, ROUTINE* Sep 07, 2017 [facility] VISIT ESTABLISHED PATIENT Sep 07, 2017 INSTRUCTIONS MEDICATIONS ADMINISTERED No Known Medications [...]
--- OUTSIDE RECORDS SUMMARY | 2019-09-01 05:53 | XMS REPORT ---
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 2013 [facility] [address] [id number] [address] [place] [address], [place] [address] Mar, 2013 [facility] [address] [id number] [address] [place] [address], [place] [address] Mar, 2013 [facility] [address] [id number] [address] [place] [address], [place] [address] Mar, 2013 [facility] [address] [id number] [address] [place] [address], [place] [address] 10 Mar, 2013 [facility] [address] [id number] [address] [place] [address], [place] [address] 10 Mar, 2013 [facility] [address] [id number] [address] [place] [address], [place] [address] Mar, 2013 [facility] [address] [id number] [address] [place] [address] 04 Mar, 2013 [facility] [address] [id number] [address] [place] [address], [place] [address] Mar, 2013 [facility] [address] [id number] [address] [place] [address], [place] [address] Mar, 2013 [facility] [address] [id number] [address] [place] [address], [place] [address] Mar, 2013 [facility] [address] [id number] [address] [address] Mar, [facility] [address] [id number] [address] [place] [address], [place] [address] Feb, [facility] [address] [id number] [address] [place] [address], [place] [address] Feb, [facility] [address] [id number] [address] [place] [address], [place] [address] Jan, [facility] [address] [id number] [address] [place] [address], [place] [address] Jan, [facility] [address] [id number] [address] [place] [address], [place] [address] Jan, [facility] [address] [id number] [address] [place] [address], [place] [address] Jan, [facility] [address] [id number] [address] [place] [address], [place] [address] Dec, [facility] [address] [id number] [address] [place] [address], [place] [address] Dec, [facility] [address] [id number] [address] [place] [address], [place] [address] Dec, [facility] [address] [id number] [address] [place] [address], [place] [address] Dec, [facility] [address] [id number] [address] [place] [address], [place] [address] Dec, [facility] [address] [id number] [address] [place] [address], [place] [address] Dec, [facility] [address] [id number] [address] [place] [address], [place] [address] November, [facility] [address] [id number] [address] [place] [address], [place] [address] November, [facility] [address] [id number] [address] [place] [address], [place] [address] November, [facility] [address] [id number] [address] [place] [address], [place] [address] November, [facility] [address] [id number] [address] [place] [address], [place] [address] November, [facility] [address] [id number] [address] [place] [address], [place] [address] November, [facility] [address] [place] [id number] November, [facility] [address] [id number] [address] [place] [address], [place] [address] November, [facility] [address] [id number] [address] [place] [address], [place] [address] November, [facility] [address] [id number] [address] [place] [address], [place] [address] November, [facility] [address] [id number] [address] [place] [address], [place] [address] November, [facility] [address] [id number] [address] [place] [address], [place] [address] November, [facility] [address] [id number] [address] [place] [address], [place] [address] Oct, [facility] [address] [id number] [address] [place] [address], [place] [address] Oct, [facility] [address] [id number] [address] [place] [address], [place] [address] Oct, [facility] [address] [id number] [address] [place] [address], [place] [address] Oct, [facility] [address] [id number] [address] [place] [address], [place] [address] Oct, [facility] [address] [id number] [address] [place] [address], [place] [address] Oct, [facility] [address] [id number] [address] [place] [address], [place] [address] Oct, [facility] [address] [id number] [facility] [place] [address] Oct, [facility] [address] [id number] [address] [place] [address], [place] [address] Oct, [facility] [address] [id number] [address] [place] [address], [place] [address] Oct, [facility] [address] [id number] [address] [place] [address], [place] [address] Oct, [facility] [address] [id number] [address] [place] [address], [place] [address] Oct, [facility] [address] [id number] [address] [place] [address], [place] [address] Oct, [facility] [address] [id number] [address] [place] [address], [place] [address] Oct, [facility] [address] [id number] [address] [place] [address], [place] [address] Oct, [facility] [address] [id number] [address] [place] [address], [place] [address] Sep, [facility] [address] [id number] [address] [place] [address], [place] [address] Sep, [facility] [address] [id number] [address] [place] [address], [place] [address] Sep, [facility] [address] [id number] [address] [place] [address], [place] [address] Sep, [facility] [address] [id number] [address] [place] [address], [place] [address] Aug, [facility] [address] [id number] [address] [place] [address], [place] [address] Aug, [facility] [address] [id number] [address] [place] [address], [place] [address] Aug, [facility] [address] [id number] [address] [place] [address], [place] [address] Aug, [facility] [address] [id number] [address] [place] [address], [place] [address] Jul, [facility] [address] [id number] [address] [place] [address], [place] [address] Jul, [facility] [address] [id number] [address] [place] [address], [place] [address] Jul, [facility] [address] [id number] [address] [place] [address], [place] [address] Jul, [facility] [address] [id number] [address] [place] [address], [place] [address] Jul, [facility] [address] [id number] [address] [place] [address], [place] [address] Jul, [facility] [address] [id number] [address] [place] [address], [place] [address] Jul, [facility] [address] [id number] [address] [place] [address], [place] [address] Jul, [facility] [address] [id number] [address] [place] [address], [place] [address] Jul, [facility] [address] [id number] [address] [place] [address], [place] [address] Jul, [facility] [address] [id number] [address] [place] [address], [place] [address] Jul, [facility] [address] [id number] [address] [place] [address], [place] [address] Jul, [facility] [address] [id number] [address] [place] [address], [place] [address] Jul, [facility] [address] [id number] [address] [place] [address], [place] [address] Jul, [facility] [address] [id number] [address] [place] [address], [place] [address] Jun, [facility] [address] [id number] [address] [place] [address], [place] [address] Jun, [facility] [address] [id number] [address] [place] [address], [place] [address] Jun, [facility] [address] [id number] [address] [place] [address], [place] [address] Jun, [facility] [address] [id number] [address] [place] [address], [place] [address] May, [facility] [address] [id number] [address] [place] [address], [place] [address] May, [facility] [address] [id number] [address] [place] [address], [place] [address] May, [facility] [address] [id number] [address] [place] [address], [place] [address] May, [facility] [address] [id number] [address] [place] [address], [place] [address] May, [facility] [address] [id number] [address] [place] [address], [place] [address] May, [facility] [address] [id number] [address] [place] [address], [place] [address] May, [facility] [address] [id number] [address] [place] [address], [place] [address] May, [facility] [address] [id number] [address] [place] [address], [place] [address] Apr, [facility] [address] [id number] [address] [place] [address], [place] [address] Apr, [facility] [address] [id number] [address] [place] [address], [place] [address] Apr, [facility] [address] [id number] [address] [place] [address], [place] [address] Apr, [facility] [address] [id number] [address] [place] [address], [place] [address] Apr, [facility] [address] [id number] [address] [place] [address], [place] [address] Apr, [facility] [address] [id number] [address] [place] [address], [place] [address] 30 Mar, 2013 [facility] [address] [id number] [address] [place] [address], [place] [address] 26 Mar, 2013 [facility] [address] [id number] [address] [place] [address], [place] [address] 20 Mar, 2013 [facility] [address] [id number] [address] [place] [address], [place] [address] 17 Mar, 2013 [facility] [address] [id number] [address] [place] [address], [place] [address] 16 Mar, 2013 [facility] [address] [id number] [address] [place] [address], [place] [address] 05 Mar, 2013 [facility] [address] [id number] [address] [place] [address], [place] [address] Feb, [facility] [address] [id number] [address] [place] [address], [place] [address] Feb, [facility] [address] [id number] [address] [place] [address], [place] [address] Feb, [facility] [address] [id number] [address] [place] [address], [place] [address] Feb, [facility] [address] [id number] [address] [place] [address], [place] [address] Jan, [facility] [address] [id number] [address] [place] [address], [place] [address] Jan, [facility] [address] [id number] [address] [place] [address], [place] [address] Jan, [facility] [address] [id number] [address] [place] [address], [place] [address] Jan, [facility] [address] [id number] [address] [place] [address], [place] [address] 16 Jan, 2013 [facility] [address] [id number] [address] [place] [address], [place] [address] Dec, [facility] [address] [id number] [address] [place] [address], [place] [address] Dec, [facility] [address] [id number] [address] [place] [address], [place] [address] Dec, [facility] [address] [id number] [address] [place] [address], [place] [address] November, [facility] [address] [id number] [address] [place] [address], [place] [address] November, [facility] [address] [id number] [address] [place] [address], [place] [address] November, [facility] [address] [id number] [address] [place] [address], [place] [address] Oct, [facility] [address] [id number] [address] [place] [address], [place] [address] Oct, [facility] [address] [id number] [address] [place] [address], [place] [address] Oct, [facility] [address] [id number] [address] [place] [address], [place] [address] Oct, [facility] [address] [id number] [address] [place] [address], [place] [address] 18 Oct, 2012 [facility] [address] [id number] [address] [place] [address], [place] [address] 17 Oct, 2012 [facility] [address] [id number] [place] [address], [place] [address] 15 Oct, 2012 [facility] [address] [id number] [address] [place] [address], [place] [address] 26 Sep, 2012 [facility] [address] [id number] [address] [place] [address], [place] [address] Sep, [facility] [address] [id number] [address] [place] [address], [place] [address] Sep, [facility] [address] [id number] [address] [place] [address], [place] [address] Sep, [facility] [address] [id number] [address] [place] [address], [place] [address] Aug, [facility] [address] [id number] [address] [place] [address], [place] [address] Aug, [facility] [address] [id number] [address] [place] [address], [place] [address] Aug, [facility] [address] [id number] [address] [place] [address], [place] [address] Aug, [facility] [address] [id number] [address] [place] [address], [place] [address] Aug, [facility] [address] [id number] [address] [place] [address], [place] [address] Aug, [facility] [address] [id number] [address] [place] [address], [place] [address] Jul, [facility] [address] [id number] [address] [place] [address], [place] [address] Jul, [facility] [address] [id number] [address] [place] [address], [place] [address] Jul, [facility] [address] [id number] [address] [place] [address], [place] [address] Jul, [facility] [address] [id number] [address] [place] [address], [place] [address] Jul, [facility] [address] [id number] [address] [place] [address], [place] [address] Jul, [facility] [address] [id number] [address] [place] [address], [place] [address] Jun, [facility] [address] [id number] [address] [place] [address], [place] [address] Jun, [facility] [address] [id number] [address] [place] [address], [place] [address] Jun, [facility] [address] [id number] [address] [place] [address], [place] [address] Jun, [facility] [address] [id number] [address] [place] [address], [place] [address] Jun, [facility] [address] [id number] [address] [place] [address], [place] [address] Jun, [facility] [address] [id number] [address] [place] [address], [place] [address] May, [facility] [address] [id number] [address] [place] [address], [place] [address] May, [facility] [address] [id number] [address] [place] [address], [place] [address] May, [facility] [address] [id number] [address] [place] [address], [place] [address] May, [facility] [address] [id number] [address] [place] [address], [place] [address] May, [facility] [address] [id number] [address] [place] [address], [place] [address] May, [facility] [address] [id number] [address] [place] [address], [place] [address] May, [facility] [address] [id number] [address] [place] [address], [place] [address] May, [facility] [address] [id number] [address] [place] [address], [place] [address] May, [facility] [address] [id number] [address] [place] [address], [place] [address] May, [facility] [address] [id number] [address] [place] [address], [place] [address] Apr, [facility] [address] [id number] [address] [place] [address], [place] [address] 31 Apr, 2012 [facility] [address] [id number] [address] [place] [address], [place] [address] 23 Apr, 2012 [facility] [address] [id number] [address] [place] [address], [place] [address] 23 Apr, 2012 [facility] [address] [id number] [address] [place] [address], [place] [address] 16 Apr, 2012 [facility] [address] [id number] [address] [place] [address], [place] [address] 16 Apr, 2012 [facility] [address] [id number] [address] [place] [address], [place] [address] 15 Apr, 2012 [facility] [address] [id number] [address] [place] [address], [place] [address] 15 Apr, 2012 [facility] [address] [id number] [address] [place] [address], [place] [address] 05 Apr, 2012 [facility] [address] [id number] [address] [place] [address], [place] [address] 28 Mar, 2012 [facility] [address] [id number] [address] [place] [address], [place] [address] 26 Mar, 2012 [facility] [address] [id number] [address] [place] [address], [place] [address] 25 Sep2011 [facility] [address] [id number] [address] [place] [address], [place] [address] 19 Sep, 2011 [facility] [address] [id number] [address] [place] [address], [place] [address] 18 Sep2011 [facility] [address] [id number] [address] [place] [address], [place] [address] 05 Mar, 2012 [facility] [address] [id number] [address] [place] [address], [place] [address] 28 Feb, 2012 [facility] [address] [id number] [address] [place] [address], [place] [address] Feb, [facility] [address] [id number] [address] [place] [address], [place] [address] Feb, [facility] [address] [id number] [address] [place] [address], [place] [address] Jan, [facility] [address] [id number] [address] [place] [address], [place] [address] Jan, [facility] [address] [id number] [address] [place] [address], [place] [address] Jan, [facility] [address] [id number] [address] [place] [address], [place] [address] Jan, [facility] [address] [id number] [address] [place] [address], [place] [address] Dec, [facility] [address] [id number] [address] [place] [address], [place] [address] November, [facility] [address] [id number] [address] [place] [address], [place] [address] November, [facility] [address] [id number] [address] [place] [address], [place] [address] November, [facility] [address] [id number] [address] [place] [address], [place] [address] November, [facility] [address] [id number] [address] [place] [address], [place] [address] November, [facility] [address] [id number] [address] [place] [address], [place] [address] November, [facility] [address] [id number] [address] [place] [address], [place] [address] Oct, [facility] [address] [id number] [address] [place] [address], [place] [address] Oct, [facility] [address] [id number] [address] [place] [address], [place] [address] Sep, [facility] [address] [id number] [address] [place] [address], [place] [address] Sep, [facility] [address] [id number] [address] [place] [address], [place] [address] Sep, [facility] [address] [id number] [address] [place] [address], [place] [address] Aug, [facility] [address] [id number] [address] [place] [address], [place] [address] Aug, [facility] [address] [id number] [address] [place] [address], [place] [address] Aug, [facility] [address] [id number] [address] [place] [address], [place] [address] Aug, [facility] [address] [id number] [address] [place] [address], [place] [address] Aug, [facility] [address] [id number] [address] [place] [address], [place] [address] Aug, [facility] [address] [id number] [address] [place] [address], [place] [address] Jul, [facility] [address] [id number] [address] [place] [address], [place] [address] Jul, [facility] [address] [id number] [address] [place] [address], [place] [address] Jul, [facility] [address] [id number] [address] [place] [address], [place] [address] Jul, [facility] [address] [id number] [address] [place] [address], [place] [address] Jul, [facility] [address] [id number] [address] [place] [address], [place] [address] Jul, [facility] [address] [id number] [address] [place] [address], [place] [address] Jul, [facility] [address] [id number] [address] [place] [address] [address] Jul, [facility] [address] [id number] [address] [place] [address], [place] [address] Jul, [facility] [address] [id number] [address] [place] [address], [place] [address] Jul, [facility] [address] [id number] [address] [place] [address], [place] [address] Jun, [facility] [address] [id number] [address] [place] [address], [place] [address] Jun, [facility] [address] [id number] [address] [place] [address], [place] [address] Jun, [facility] [address] [id number] [address] [place] [address], [place] [address] Jun, [facility] [address] [id number] [address] [place] [address], [place] [address] May, [facility] [address] [id number] [address] [place] [address], [place] [address] May, [facility] [address] [id number] [address] [place] [address], [place] [address] May, [facility] [address] [id number] [address] [place] [address], [place] [address] May, [facility] [address] [id number] [address] [place] [address], [place] [address] Apr, [facility] [address] [id number] [address] [address] Apr, [facility] [address] [id number] [address] [place] [address], [place] [address] November, [facility] [address] [id number] [address] [place] [address], [place] [address] Oct, [facility] [address] [id number] [address] [place] [address], [place] [address] Aug, [facility] [address] [id number] [address] [place] [address], [place] [address] 28 Jun, 2010 [facility] [address] [id number] [address] [place] [address], [place] [address] 28 Jun, 2010 [facility] [address] [id number] [address] [place] [address], [place] [address] 27 Jun, 2010 [facility] [address] [id number] [address] [place] [address], [place] [address] 03 Jun, 2010 [facility] [address] [id number] [address] [place] [address], [place] [address] 29 May, 2010 [facility] [address] [id number] [address] [place] [address], [place] [address] 27 Apr, 2010 [facility] [address] [id number] [address] [place] [address], [place] [address] 13 Oct, 2009 [facility] [address] [id number] [address] [place] [address], [place] [address] 13 Aug, 2009 [facility] [address] [id number] [address] [place] [address], [place] [address] 20 Jul, 2009 [facility] [address] [id number] [address] [place] [address], [place] [address] 22 Jun, 2009 [facility] [address] [id number] [address] [place] [address], [place] [address] 16 Jun, 2009 [facility] [address] [id number] [address] [place] [address], [place] [address] 14 Jun, 2009 [facility] [address] [id number] [address] [place] [address], [place] [address] 14 Jun, 2009 [facility] [address] [id number] [address] [place] [address], [place] [address] 09 May, 2009 [facility] [address] [id number] [address] [place] [address], [place] [address] 20 Apr, 2009 [facility] [address] [id number] [address] [place] [address], [place] [address] 15 Mar, 2009 [facility] [address] [facility] [id number] [address] [place] [address] 14 Mar, 2009 [facility] [address] [facility] [id number] [address] [address] Dec, IMMUNIZATIONS No Known Immunizations SOCIAL HISTORY Never Assessed REASON FOR VISIT Medication change request PLAN OF CARE VITAL SIGNS MEDICATIONS Medication Instructions Dosage Frequency Start Date End Date Duration S tatus Omeprazole 20 mg Orally Once a day [...]
--- OUTSIDE RECORDS SUMMARY | 2019-09-01 05:53 | XMS REPORT ---
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 Apr, [facility] [address] [id number] [address] [place] [address], [place] [address] Apr, [facility] [address] [id number] [address] [place] [address], [place] [address] Mar, 2013 [facility] [address] [id number] [address] [place] [address], [place] [address] Mar, 2013 [facility] [address] [id number] [address] [place] [address], [place] [address] Mar, 2013 [facility] [address] [id number] [address] [place] [address], [place] [address] Mar, 2013 [facility] [address] [id number] [address] [place] [address], [place] [address] 10 Mar, 2013 [facility] [address] [id number] [address] [place] [address], [place] [address] 10 Mar, 2013 [facility] [address] [id number] [address] [place] [address], [place] [address] Mar, 2013 [facility] [address] [id number] [address] [place] [address] 04 Mar, 2013 [facility] [address] [id number] [address] [place] [address], [place] [address] Mar, 2013 [facility] [address] [id number] [address] [place] [address], [place] [address] Mar, 2013 [facility] [address] [id number] [address] [place] [address], [place] [address] Mar, 2013 [facility] [address] [id number] [address] [place] [address] Mar, [facility] [address] [id number] [address] [place] [address], [place] [address] Feb, [facility] [address] [id number] [address] [place] [address], [place] [address] Feb, [facility] [address] [id number] [address] [place] [address], [place] [address] Jan, [facility] [address] [id number] [address] [place] [address], [place] [address] Jan, [facility] [address] [id number] [address] [place] [address], [place] [address] Jan, [facility] [address] [id number] [address] [place] [address], [place] [address] Jan, [facility] [address] [id number] [address] [place] [address], [place] [address] Dec, [facility] [address] [id number] [address] [place] [address], [place] [address] Dec, [facility] [address] [id number] [address] [place] [address], [place] [address] Dec, [facility] [address] [id number] [address] [place] [address], [place] [address] Dec, [facility] [address] [id number] [address] [place] [address], [place] [address] Dec, [facility] [address] [id number] [address] [place] [address], [place] [address] Dec, [facility] [address] [id number] [address] [place] [address], [place] [address] November, [facility] [address] [id number] [address] [place] [address], [place] [address] November, [facility] [address] [id number] [address] [place] [address], [place] [address] November, [facility] [address] [id number] [address] [place] [address], [place] [address] November, [facility] [address] [id number] [address] [place] [address], [place] [address] November, [facility] [address] [id number] [address] [place] [address], [place] [address] November, [facility] [address] [place] [id number] November, [facility] [address] [id number] [address] [place] [address], [place] [address] November, [facility] [address] [id number] [address] [place] [address], [place] [address] November, [facility] [address] [id number] [address] [place] [address], [place] [address] November, [facility] [address] [id number] [address] [place] [address], [place] [address] November, [facility] [address] [id number] [address] [place] [address], [place] [address] November, [facility] [address] [id number] [address] [place] [address], [place] [address] Oct, [facility] [address] [id number] [address] [place] [address], [place] [address] Oct, [facility] [address] [id number] [address] [place] [address], [place] [address] Oct, [facility] [address] [id number] [address] [place] [address], [place] [address] Oct, [facility] [address] [id number] [address] [place] [address], [place] [address] Oct, [facility] [address] [id number] [address] [place] [address], [place] [address] Oct, [facility] [address] [id number] [address] [place] [address], [place] [address] Oct, [facility] [address] [id number] [facility] [place] [address] Oct, [facility] [address] [id number] [address] [place] [address], [place] [address] Oct, [facility] [address] [id number] [address] [place] [address], [place] [address] Oct, [facility] [address] [id number] [address] [place] [address], [place] [address] Oct, [facility] [address] [id number] [address] [place] [address], [place] [address] Oct, [facility] [address] [id number] [address] [place] [address], [place] [address] Oct, [facility] [address] [id number] [address] [place] [address], [place] [address] Oct, [facility] [address] [id number] [address] [place] [address], [place] [address] Oct, [facility] [address] [id number] [address] [place] [address], [place] [address] Sep, [facility] [address] [id number] [address] [place] [address], [place] [address] Sep, [facility] [address] [id number] [address] [place] [address], [place] [address] Sep, [facility] [address] [id number] [address] [place] [address], [place] [address] Sep, [facility] [address] [id number] [address] [place] [address], [place] [address] Aug, [facility] [address] [id number] [address] [place] [address], [place] [address] Aug, [facility] [address] [id number] [address] [place] [address], [place] [address] Aug, [facility] [address] [id number] [address] [place] [address], [place] [address] Aug, [facility] [address] [id number] [address] [place] [address], [place] [address] Jul, [facility] [address] [id number] [address] [place] [address], [place] [address] Jul, [facility] [address] [id number] [address] [place] [address], [place] [address] Jul, [facility] [address] [id number] [address] [place] [address], [place] [address] Jul, [facility] [address] [id number] [address] [place] [address], [place] [address] Jul, [facility] [address] [id number] [address] [place] [address], [place] [address] Jul, [facility] [address] [id number] [address] [place] [address], [place] [address] Jul, [facility] [address] [id number] [address] [place] [address], [place] [address] Jul, [facility] [address] [id number] [address] [place] [address], [place] [address] Jul, [facility] [address] [id number] [address] [place] [address], [place] [address] Jul, [facility] [address] [id number] [address] [place] [address], [place] [address] Jul, [facility] [address] [id number] [address] [place] [address], [place] [address] Jul, [facility] [address] [id number] [address] [place] [address], [place] [address] Jul, [facility] [address] [id number] [address] [place] [address], [place] [address] Jul, [facility] [address] [id number] [address] [place] [address], [place] [address] Jun, [facility] [address] [id number] [address] [place] [address], [place] [address] Jun, [facility] [address] [id number] [address] [place] [address], [place] [address] Jun, [facility] [address] [id number] [address] [place] [address], [place] [address] Jun, [facility] [address] [id number] [address] [place] [address], [place] [address] May, [facility] [address] [id number] [address] [place] [address], [place] [address] May, [facility] [address] [id number] [address] [place] [address], [place] [address] May, [facility] [address] [id number] [address] [place] [address], [place] [address] May, [facility] [address] [id number] [address] [place] [address], [place] [address] May, [facility] [address] [id number] [address] [place] [address], [place] [address] May, [facility] [address] [id number] [address] [place] [address], [place] [address] May, [facility] [address] [id number] [address] [place] [address], [place] [address] May, [facility] [address] [id number] [address] [place] [address], [place] [address] Apr, [facility] [address] [id number] [address] [place] [address], [place] [address] Apr, [facility] [address] [id number] [address] [place] [address], [place] [address] Apr, [facility] [address] [id number] [address] [place] [address], [place] [address] Apr, [facility] [address] [id number] [address] [place] [address], [place] [address] Apr, [facility] [address] [id number] [address] [place] [address], [place] [address] Apr, [facility] [address] [id number] [address] [place] [address], [place] [address] 30 Mar, 2013 [facility] [address] [id number] [address] [place] [address], [place] [address] 26 Mar, 2013 [facility] [address] [id number] [address] [place] [address], [place] [address] 20 Mar, 2013 [facility] [address] [id number] [address] [place] [address], [place] [address] 17 Mar, 2013 [facility] [address] [id number] [address] [place] [address], [place] [address] 16 Mar, 2013 [facility] [address] [id number] [address] [place] [address], [place] [address] 05 Mar, 2013 [facility] [address] [id number] [address] [place] [address], [place] [address] Feb, [facility] [address] [id number] [address] [place] [address], [place] [address] Feb, [facility] [address] [id number] [address] [place] [address], [place] [address] Feb, [facility] [address] [id number] [address] [place] [address], [place] [address] Feb, [facility] [address] [id number] [address] [place] [address], [place] [address] Jan, [facility] [address] [id number] [address] [place] [address], [place] [address] Jan, [facility] [address] [id number] [address] [place] [address], [place] [address] Jan, [facility] [address] [id number] [address] [place] [address], [place] [address] Jan, [facility] [address] [id number] [address] [place] [address], [place] [address] 16 Jan, 2013 [facility] [address] [id number] [address] [place] [address], [place] [address] Dec, [facility] [address] [id number] [address] [place] [address], [place] [address] Dec, [facility] [address] [id number] [address] [place] [address], [place] [address] Dec, [facility] [address] [id number] [address] [place] [address], [place] [address] November, [facility] [address] [id number] [address] [place] [address], [place] [address] November, [facility] [address] [id number] [address] [place] [address], [place] [address] November, [facility] [address] [id number] [address] [place] [address], [place] [address] Oct, [facility] [address] [id number] [address] [place] [address], [place] [address] Oct, [facility] [address] [id number] [address] [place] [address], [place] [address] Oct, [facility] [address] [id number] [address] [place] [address], [place] [address] Oct, [facility] [address] [id number] [address] [place] [address], [place] [address] 18 Oct, 2012 [facility] [facility] [address] [id number] [address] [place] [address], [place] [address] 17 Oct, 2012 [facility] [address] [id number] [address] [place] [address], [place] [address] 15 Oct, 2012 [facility] [address] [id number] [address] [place] [address], [place] [address] 26 Sep, 2012 [facility] [address] [id number] [address] [place] [address], [place] [address] Sep, [facility] [address] [id number] [address] [place] [address], [place] [address] Sep, [facility] [address] [id number] [address] [place] [address], [place] [address] Sep, [facility] [address] [id number] [address] [place] [address], [place] [address] Aug, [facility] [address] [id number] [address] [place] [address], [place] [address] Aug, [facility] [address] [id number] [address] [place] [address], [place] [address] Aug, [facility] [address] [id number] [address] [place] [address], [place] [address] Aug, [facility] [address] [id number] [address] [place] [address], [place] [address] Aug, [facility] [address] [id number] [address] [place] [address], [place] [address] Aug, [facility] [address] [id number] [address] [place] [address], [place] [address] Jul, [facility] [address] [id number] [address] [place] [address], [place] [address] Jul, [facility] [address] [id number] [address] [place] [address], [place] [address] Jul, [facility] [address] [id number] [address] [place] [address], [place] [address] Jul, [facility] [address] [id number] [address] [place] [address], [place] [address] Jul, [facility] [address] [id number] [address] [place] [address], [place] [address] Jul, [facility] [address] [id number] [address] [place] [address], [place] [address] Jun, [facility] [address] [id number] [address] [place] [address], [place] [address] Jun, [facility] [address] [id number] [address] [place] [address], [place] [address] Jun, [facility] [address] [id number] [address] [place] [address], [place] [address] Jun, [facility] [address] [id number] [address] [place] [address], [place] [address] Jun, [facility] [address] [id number] [address] [place] [address], [place] [address] Jun, [facility] [address] [id number] [address] [place] [address], [place] [address] May, [facility] [address] [id number] [address] [place] [address], [place] [address] May, [facility] [address] [id number] [address] [place] [address], [place] [address] May, [facility] [address] [id number] [address] [place] [address], [place] [address] May, [facility] [address] [id number] [address] [place] [address], [place] [address] May, [facility] [address] [id number] [address] [place] [address], [place] [address] May, [facility] [address] [id number] [address] [place] [address], [place] [address] May, [facility] [address] [id number] [address] [place] [address], [place] [address] May, [facility] [address] [id number] [address] [place] [address], [place] [address] May, [facility] [address] [id number] [address] [place] [address], [place] [address] May, [facility] [address] [id number] [address] [place] [address], [place] [address] Apr, [facility] [address] [id number] [address] [place] [address], [place] [address] 31 Apr, 2012 [facility] [address] [id number] [address] [place] [address], [place] [address] 23 Apr, 2012 [facility] [address] [id number] [address] [place] [address], [place] [address] 23 Apr, 2012 [facility] [address] [id number] [address] [place] [address], [place] [address] 16 Apr, 2012 [facility] [address] [id number] [address] [place] [address], [place] [address] 16 Apr, 2012 [facility] [address] [id number] [address] [place] [address], [place] [address] 15 Apr, 2012 [facility] [address] [id number] [address] [place] [address], [place] [address] 15 Apr, 2012 [facility] [address] [id number] [address] [place] [address], [place] [address] 05 Apr, 2012 [facility] [address] [id number] [address] [place] [address], [place] [address] 28 Mar, 2012 [facility] [address] [id number] [address] [place] [address], [place] [address] 26 Mar, 2012 [facility] [address] [id number] [address] [place] [address] [address] 25 Sep2011 [facility] [address] [id number] [address] [place] [address], [place] [address] 19 Sep, 2011 [facility] [address] [id number] [address] [place] [address], [place] [address] 18 Sep2011 [facility] [address] [id number] [address] [place] [address], [place] [address] 05 Mar, 2012 [facility] [address] [id number] [address] [place] [address], [place] [address] 28 Feb, 2012 [facility] [address] [id number] [address] [place] [address], [place] [address] Feb, [facility] [address] [id number] [address] [place] [address], [place] [address] Feb, [facility] [address] [id number] [address] [place] [address], [place] [address] Jan, [facility] [address] [id number] [address] [place] [address], [place] [address] Jan, [facility] [address] [id number] [address] [place] [address], [place] [address] Jan, [facility] [address] [id number] [address] [place] [address], [place] [address] Jan, [facility] [address] [id number] [address] [place] [address], [place] [address] Dec, [facility] [address] [id number] [address] [place] [address], [place] [address] November, [facility] [address] [id number] [address] [place] [address], [place] [address] November, [facility] [address] [id number] [address] [place] [address], [place] [address] November, [facility] [address] [id number] [address] [place] [address], [place] [address] November, [facility] [address] [id number] [address] [place] [address], [place] [address] November, [facility] [address] [id number] [address] [place] [address], [place] [address] November, [facility] [address] [id number] [address] [place] [address], [place] [address] Oct, [facility] [address] [id number] [address] [place] [address], [place] [address] Oct, [facility] [address] [id number] [address] [place] [address], [place] [address] Sep, [facility] [address] [id number] [address] [place] [address], [place] [address] Sep, [facility] [address] [id number] [address] [place] [address], [place] [address] Sep, [facility] [address] [id number] [address] [place] [address], [place] [address] Aug, [facility] [address] [id number] [address] [place] [address], [place] [address] Aug, [facility] [address] [id number] [address] [place] [address], [place] [address] Aug, [facility] [address] [id number] [address] [place] [address], [place] [address] Aug, [facility] [address] [id number] [address] [place] [address], [place] [address] Aug, [facility] [address] [id number] [address] [place] [address], [place] [address] Aug, [facility] [address] [id number] [address] [place] [address], [place] [address] Jul, [facility] [address] [id number] [address] [place] [address], [place] [address] Jul, [facility] [address] [id number] [address] [place] [address], [place] [address] Jul, [facility] [address] [id number] [address] [place] [address], [place] [address] Jul, [facility] [address] [id number] [address] [place] [address], [place] [address] Jul, [facility] [address] [id number] [address] [place] [address], [place] [address] Jul, [facility] [address] [id number] [address] [place] [address], [place] [address] Jul, [facility] [address] [id number] [address] [place] [address] [address] Jul, [facility] [address] [id number] [address] [place] [address], [place] [address] Jul, [facility] [address] [id number] [address] [place] [address], [place] [address] Jul, [facility] [address] [id number] [address] [place] [address], [place] [address] Jun, [facility] [address] [id number] [address] [place] [address], [place] [address] Jun, [facility] [address] [id number] [address] [place] [address], [place] [address] Jun, [facility] [address] [id number] [address] [place] [address], [place] [address] Jun, [facility] [address] [id number] [address] [place] [address], [place] [address] May, [facility] [address] [id number] [address] [place] [address], [place] [address] May, [facility] [address] [id number] [address] [place] [address], [place] [address] May, [facility] [address] [id number] [address] [place] [address], [place] [address] May, [facility] [address] [id number] [address] [place] [address], [place] [address] Apr, [facility] [address] [id number] [address] [place] [address] Apr, [facility] [address] [id number] [address] [place] [address], [place] [address] November, [facility] [address] [id number] [address] [place] [address], [place] [address] Oct, [facility] [address] [id number] [address] [place] [address], [place] [address] Aug, [facility] [address] [id number] [address] [place] [address], [place] [address] 28 Jun, 2010 [facility] [address] [id number] [address] [place] [address], [place] [address] 28 Jun, 2010 [facility] [address] [id number] [address] [place] [address], [place] [address] 27 Jun, 2010 [facility] [address] [id number] [address] [place] [address], [place] [address] 03 Jun, 2010 [facility] [address] [id number] [address] [place] [address], [place] [address] 29 May, 2010 [facility] [address] [id number] [address] [place] [address], [place] [address] 27 Apr, 2010 [facility] [address] [id number] [address] [place] [address], [place] [address] 13 Oct, 2009 [facility] [address] [id number] [address] [place] [address], [place] [address] 13 Aug, 2009 [facility] [address] [id number] [address] [place] [address], [place] [address] 20 Jul, 2009 [facility] [address] [id number] [address] [place] [address], [place] [address] 22 Jun, 2009 [facility] [address] [id number] [address] [place] [address], [place] [address] 16 Jun, 2009 [facility] [address] [id number] [address] [place] [address], [place] [address] 14 Jun, 2009 [facility] [address] [id number] [address] [place] [address], [place] [address] 14 Jun, 2009 [facility] [address] [id number] [address] [place] [address], [place] [address] 09 May, 2009 [facility] [address] [id number] [address] [place] [address], [place] [address] 20 Apr, 2009 [facility] [address] [id number] [address] [place] [address], [place] [address] 15 Mar, 2009 [facility] [address] [facility] [id number] [address] [place] [address] 14 Mar, 2009 [facility] [address] [facility] [id number] [address] [place] [id number] 11 Dec, 2008 IMMUNIZATIONS No Known Immunizations [...]
--- OUTSIDE RECORDS SUMMARY | 2019-09-01 05:53 | XMS REPORT ---
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 [address] Apr, [facility] [address] [id number] [address] [place] [address], [place] [address] Mar, 2013 [facility] [address] [id number] [address] [place] [address], [place] [address] Mar, 2013 [facility] [address] [id number] [address] [place] [address], [place] [address] Mar, 2013 [facility] [address] [id number] [address] [place] [address], [place] [address] 29 Mar, 2013 [facility] [address] [id number] [address] [place] [address], [place] [address] 10 Mar, 2013 [facility] [address] [id number] [address] [place] [address] 10 Mar, 2013 [facility] [address] [id number] [address] [place] [address] Mar, 2013 [facility] [address] [id number] [address] [place] [address], [place] [address] Mar, 2013 [facility] [address] [id number] [address] [place] [address], [place] [address] Mar, 2013 [facility] [address] [id number] [address] [place] [address], [place] [address] Mar, 2013 [facility] [address] [id number] [address] [place] [address], [place] [address] Mar, [facility] [address] [id number] [address] [place] [address], [place] [address] Mar, [facility] [address] [id number] [address] [place] [address], [place] [address] Feb, [facility] [address] [id number] [address] [place] [address], [place] [address] Feb, [facility] [address] [id number] [address] [place] [address], [place] [address] Jan, [facility] [address] [id number] [address] [place] [address], [place] [address] Jan, [facility] [address] [id number] [address] [place] [address], [place] [address] Jan, [facility] [address] [id number] [address] [place] [address], [place] [address] Jan, [facility] [address] [id number] [address] [place] [address], [place] [address] Dec, [facility] [address] [id number] [address] [place] [address], [place] [address] Dec, [facility] [address] [id number] [address] [place] [address], [place] [address] Dec, [facility] [address] [id number] [address] [place] [address], [place] [address] Dec, [facility] [address] [id number] [address] [place] [address], [place] [address] Dec, [facility] [address] [id number] [address] [place] [address], [place] [address] Dec, [facility] [address] [id number] [address] [place] [address], [place] [address] November, [facility] [address] [id number] [address] [place] [address], [place] [address] November, [facility] [address] [id number] [address] [place] [address], [place] [address] November, [facility] [address] [id number] [address] [place] [address], [place] [address] November, [facility] [address] [id number] [address] [place] [address], [place] [address] November, [facility] [address] [id number] [address] [place] [address], [place] [address] November, [facility] [id number] November, [facility] [address] [id number] [address] [place] [address], [place] [address] November, [facility] [address] [id number] [address] [place] [address], [place] [address] November, [facility] [address] [id number] [address] [place] [address], [place] [address] November, [facility] [address] [id number] [address] [place] [address], [place] [address] November, [facility] [address] [id number] [address] [place] [address], [place] [address] November, [facility] [address] [id number] [address] [place] [address], [place] [address] Oct, [facility] [address] [id number] [address] [place] [address], [place] [address] Oct, [facility] [address] [id number] [address] [place] [address], [place] [address] Oct, [facility] [address] [id number] [address] [place] [address], [place] [address] Oct, [facility] [address] [id number] [address] [place] [address], [place] [address] Oct, [facility] [address] [id number] [address] [place] [address], [place] [address] Oct, [facility] [address] [id number] [facility] [address] Oct, [facility] [address] [id number] [address] [place] [address], [place] [address] Oct, [facility] [address] [id number] [address] [place] [address], [place] [address] Oct, [facility] [address] [id number] [address] [place] [address], [place] [address] Oct, [facility] [address] [id number] [address] [place] [address], [place] [address] Oct, [facility] [address] [id number] [address] [place] [address], [place] [address] Oct, [facility] [address] [id number] [address] [place] [address], [place] [address] Oct, [facility] [address] [id number] [address] [place] [address], [place] [address] Oct, [facility] [address] [id number] [address] [place] [address], [place] [address] Oct, [facility] [address] [id number] [address] [place] [address], [place] [address] Sep, [facility] [address] [id number] [address] [place] [address], [place] [address] Sep, [facility] [address] [id number] [address] [place] [address], [place] [address] Sep, [facility] [address] [id number] [address] [place] [address], [place] [address] Sep, [facility] [address] [id number] [address] [place] [address], [place] [address] Aug, [facility] [address] [id number] [address] [place] [address], [place] [address] Aug, [facility] [address] [id number] [address] [place] [address], [place] [address] Aug, [facility] [address] [id number] [address] [place] [address], [place] [address] Aug, [facility] [address] [id number] [address] [place] [address], [place] [address] Jul, [facility] [address] [id number] [address] [place] [address], [place] [address] Jul, [facility] [address] [id number] [address] [place] [address], [place] [address] Jul, [facility] [address] [id number] [address] [place] [address], [place] [address] Jul, [facility] [address] [id number] [address] [place] [address], [place] [address] Jul, [facility] [address] [id number] [address] [place] [address], [place] [address] Jul, [facility] [address] [id number] [address] [place] [address], [place] [address] Jul, [facility] [address] [id number] [address] [place] [address], [place] [address] Jul, [facility] [address] [id number] [address] [place] [address], [place] [address] Jul, [facility] [address] [id number] [address] [place] [address], [place] [address] Jul, [facility] [address] [id number] [address] [place] [address], [place] [address] Jul, [facility] [address] [id number] [address] [place] [address], [place] [address] Jul, [facility] [address] [id number] [address] [place] [address], [place] [address] Jul, [facility] [address] [id number] [address] [place] [address], [place] [address] Jul, [facility] [address] [id number] [address] [place] [address], [place] [address] Jun, [facility] [address] [id number] [address] [place] [address], [place] [address] Jun, [facility] [address] [id number] [address] [place] [address], [place] [address] Jun, [facility] [address] [id number] [address] [place] [address], [place] [address] Jun, [facility] [address] [id number] [address] [place] [address], [place] [address] May, [facility] [address] [id number] [address] [place] [address], [place] [address] May, [facility] [address] [id number] [address] [place] [address], [place] [address] May, [facility] [address] [id number] [address] [place] [address], [place] [address] May, [facility] [address] [id number] [address] [place] [address], [place] [address] May, [facility] [address] [id number] [address] [place] [address], [place] [address] May, [facility] [address] [id number] [address] [place] [address], [place] [address] May, [facility] [address] [id number] [address] [place] [address], [place] [address] May, [facility] [address] [id number] [address] [place] [address], [place] [address] Apr, [facility] [address] [id number] [address] [place] [address], [place] [address] Apr, [facility] [address] [id number] [address] [place] [address], [place] [address] Apr, [facility] [address] [id number] [address] [place] [address], [place] [address] Apr, [facility] [address] [id number] [address] [place] [address], [place] [address] Apr, [facility] [address] [id number] [address] [place] [address], [place] [address] Apr, [facility] [address] [id number] [address] [place] [address], [place] [address] 30 Mar, 2013 [facility] [address] [id number] [address] [place] [address], [place] [address] 26 Mar, 2013 [facility] [address] [id number] [address] [place] [address], [place] [address] 20 Mar, 2013 [facility] [address] [id number] [address] [place] [address], [place] [address] 17 Mar, 2013 [facility] [address] [id number] [address] [place] [address], [place] [address] 16 Mar, 2013 [facility] [address] [id number] [address] [place] [address], [place] [address] 05 Mar, 2013 [facility] [address] [id number] [address] [place] [address], [place] [address] Feb, [facility] [address] [id number] [address] [place] [address], [place] [address] Feb, [facility] [address] [id number] [address] [place] [address], [place] [address] Feb, [facility] [address] [id number] [address] [place] [address], [place] [address] Feb, [facility] [address] [id number] [address] [place] [address], [place] [address] Jan, [facility] [address] [id number] [address] [place] [address], [place] [address] Jan, [facility] [address] [id number] [address] [place] [address], [place] [address] Jan, [facility] [address] [id number] [address] [place] [address], [place] [address] Jan, [facility] [address] [id number] [address] [place] [address], [place] [address] Jan, [facility] [address] [id number] [address] [place] [address], [place] [address] Dec, [facility] [address] [id number] [address] [place] [address], [place] [address] Dec, [facility] [address] [id number] [address] [place] [address], [place] [address] Dec, [facility] [address] [id number] [address] [place] [address], [place] [address] November, [facility] [address] [id number] [address] [place] [address], [place] [address] November, [facility] [address] [id number] [address] [place] [address], [place] [address] November, [facility] [address] [id number] [address] [place] [address], [place] [address] Oct, [facility] [address] [id number] [address] [place] [address], [place] [address] Oct, [facility] [address] [id number] [address] [place] [address], [place] [address] Oct, [facility] [address] [id number] [address] [place] [address], [place] [address] Oct, [facility] [address] [id number] [address] [place] [address], [place] [address] 18 Oct, 2012 [facility] [address] [id number] [address] [place] [address], [place] [address] 17 Oct, 2012 [facility] [address] [id number] [address] [place] [address], [place] [address] 15 Oct, 2012 [facility] [address] [id number] [address] [place] [address], [place] [address] Sep, [facility] [address] [id number] [address] [place] [address], [place] [address] Sep, [facility] [address] [id number] [address] [place] [address], [place] [address] Sep, [facility] [address] [id number] [address] [place] [address], [place] [address] Sep, [facility] [address] [id number] [address] [place] [address], [place] [address] Aug, [facility] [address] [id number] [address] [place] [address], [place] [address] Aug, [facility] [address] [id number] [address] [place] [address], [place] [address] Aug, [facility] [address] [id number] [address] [place] [address], [place] [address] Aug, [facility] [address] [id number] [address] [place] [address], [place] [address] Aug, [facility] [address] [id number] [address] [place] [address], [place] [address] Aug, [facility] [address] [id number] [address] [place] [address], [place] [address] Jul, [facility] [address] [id number] [address] [place] [address], [place] [address] Jul, [facility] [address] [id number] [address] [place] [address], [place] [address] Jul, [facility] [address] [id number] [address] [place] [address], [place] [address] Jul, [facility] [address] [id number] [address] [place] [address], [place] [address] Jul, [facility] [address] [id number] [address] [place] [address], [place] [address] Jul, [facility] [address] [id number] [address] [place] [address], [place] [address] Jun, [facility] [address] [id number] [address] [place] [address], [place] [address] Jun, [facility] [address] [id number] [address] [place] [address], [place] [address] Jun, [facility] [address] [id number] [address] [place] [address], [place] [address] Jun, [facility] [address] [id number] [address] [place] [address], [place] [address] Jun, [facility] [address] [id number] [address] [place] [address], [place] [address] Jun, [facility] [address] [id number] [address] [place] [address], [place] [address] May, [facility] [address] [id number] [address] [place] [address], [place] [address] May, [facility] [address] [id number] [address] [place] [address], [place] [address] May, [facility] [address] [id number] [address] [place] [address], [place] [address] May, [facility] [address] [id number] [address] [place] [address], [place] [address] May, [facility] [address] [id number] [address] [place] [address], [place] [address] May, [facility] [address] [id number] [address] [place] [address], [place] [address] May, [facility] [address] [id number] [address] [place] [address], [place] [address] May, [facility] [address] [id number] [address] [place] [address], [place] [address] May, [facility] [address] [id number] [address] [place] [address], [place] [address] May, [facility] [address] [id number] [address] [place] [address], [place] [address] 31 Apr, 2012 [facility] [address] [id number] [address] [place] [address], [place] [address] 31 Apr, 2012 [facility] [address] [id number] [address] [place] [address], [place] [address] 23 Apr, 2012 [facility] [address] [id number] [address] [place] [address], [place] [address] 23 Apr, 2012 [facility] [address] [id number] [address] [place] [address], [place] [address] 16 Apr, 2012 [facility] [address] [id number] [address] [place] [address], [place] [address] 16 Apr, 2012 [facility] [address] [id number] [address] [place] [address], [place] [address] 15 Apr, 2012 [facility] [address] [id number] [address] [place] [address], [place] [address] 15 Apr, 2012 [facility] [address] [id number] [address] [place] [address], [place] [address] 05 Apr, 2012 [facility] [address] [id number] [address] [place] [address] 28 Mar, 2012 [facility] [address] [id number] [address] [place] [address], [place] [address] 26 Sep, 2011 [facility] [address] [id number] [address] [place] [address] 25 Sep, 2011 [facility] [address] [id number] [address] [place] [address], [place] [address] 19 Sep, 2011 [facility] [address] [id number] [address] [place] [address], [place] [address] 18 Sep, 2011 [facility] [address] [id number] [address] [place] [address] 05 Sep, 2011 [facility] [address] [id number] [address] [place] [address] Feb, [facility] [address] [id number] [address] [place] [address], [place] [address] Feb, [facility] [address] [id number] [address] [place] [address], [place] [address] Feb, [facility] [address] [id number] [address] [place] [address], [place] [address] Jan, [facility] [address] [id number] [address] [place] [address], [place] [address] Jan, [facility] [address] [id number] [address] [place] [address], [place] [address] Jan, [facility] [address] [id number] [address] [place] [address], [place] [address] Jan, [facility] [address] [id number] [address] [place] [address], [place] [address] Dec, [facility] [address] [id number] [address] [place] [address], [place] [address] November, [facility] [address] [id number] [address] [place] [address], [place] [address] November, [facility] [address] [id number] [address] [place] [address], [place] [address] November, [facility] [address] [id number] [address] [place] [address], [place] [address] November, [facility] [address] [id number] [address] [place] [address], [place] [address] November, [facility] [address] [id number] [address] [place] [address], [place] [address] November, [facility] [address] [id number] [address] [place] [address], [place] [address] Oct, [facility] [address] [id number] [address] [place] [address], [place] [address] Oct, [facility] [address] [id number] [address] [place] [address], [place] [address] Sep, [facility] [address] [id number] [address] [place] [address], [place] [address] Sep, [facility] [address] [id number] [address] [place] [address], [place] [address] Sep, [facility] [address] [id number] [address] [place] [address], [place] [address] Aug, [facility] [address] [id number] [address] [place] [address], [place] [address] Aug, [facility] [address] [id number] [address] [place] [address], [place] [address] Aug, [facility] [address] [id number] [address] [place] [address], [place] [address] Aug, [facility] [address] [id number] [address] [place] [address], [place] [address] Aug, [facility] [address] [id number] [address] [place] [address], [place] [address] Aug, [facility] [address] [id number] [address] [place] [address], [place] [address] Jul, [facility] [address] [id number] [address] [place] [address], [place] [address] Jul, [facility] [address] [id number] [address] [place] [address], [place] [address] Jul, [facility] [address] [id number] [address] [place] [address], [place] [address] Jul, [facility] [address] [id number] [address] [place] [address], [place] [address] Jul, [facility] [address] [id number] [address] [place] [address], [place] [address] Jul, [facility] [address] [id number] [address] [place] [address], [place] [address] 17 Jul, 2011 [facility] [address] [id number] [address] [place] [address], [place] [address] Jul, [facility] [address] [id number] [address] [place] [address], [place] [address] Jul, [facility] [address] [id number] [address] [place] [address], [place] [address] Jul, [facility] [address] [id number] [address] [place] [address], [place] [address] Jun, [facility] [address] [id number] [address] [place] [address], [place] [address] Jun, [facility] [address] [id number] [address] [place] [address], [place] [address] Jun, [facility] [address] [id number] [address] [place] [address], [place] [address] Jun, [facility] [address] [id number] [address] [place] [address], [place] [address] May, [facility] [address] [id number] [address] [place] [address], [place] [address] May, [facility] [address] [id number] [address] [place] [address], [place] [address] May, [facility] [address] [id number] [address] [place] [address], [place] [address] May, [facility] [address] [id number] [address] [place] [address], [place] [address] Apr, [facility] [address] [id number] [address] [place] [address], [place] [address] Apr, [facility] [address] [id number] [address] [place] [address], [place] [address] November, [facility] [address] [id number] [address] [place] [address], [place] [address] Oct, [facility] [address] [id number] [address] [place] [address], [place] [address] 17 Aug, 2010 [facility] [address] [id number] [address] [place] [address], [place] [address] 28 Jun, 2010 [facility] [address] [id number] [address] [place] [address], [place] [address] 28 Jun, 2010 [facility] [address] [id number] [address] [place] [address], [place] [address] 27 Jun, 2010 [facility] [address] [id number] [address] [place] [address], [place] [address] 03 Jun, 2010 [facility] [address] [id number] [address] [place] [address], [place] [address] 29 May, 2010 [facility] [address] [id number] [address] [place] [address], [place] [address] Apr, [facility] [address] [id number] [address] [place] [address], [place] [address] Oct, [facility] [address] [id number] [address] [place] [address], [place] [address] 13 Aug, 2009 [facility] [address] [id number] [address] [place] [address], [place] [address] Jul, [facility] [address] [id number] [address] [place] [address], [place] [address] 22 Jun, 2009 [facility] [address] [id number] [address] [place] [address], [place] [address] 16 Jun, 2009 [facility] [address] [id number] [address] [place] [address], [place] [address] 14 Jun, 2009 [facility] [address] [id number] [address] [place] [address], [place] [address] 14 Jun, 2009 [facility] [address] [id number] [address] [place] [address], [place] [address] 09 May, 2009 [facility] [address] [id number] [address] [place] [address], [place] [address] Apr, [facility] [address] [facility] [id number] [address] [place] [address] [address] Mar, [address] [facility] [address] [facility] [id number] [address] [place] [address] 14 Mar, 2009 [facility] [address] [facility] [id number] [address] [place] [address] 11 Dec, 2008 IMMUNIZATIONS No Known Immunizations SOCIAL HISTORY Never Assessed REASON FOR VISIT lulu refill PLAN OF CARE VITAL SIGNS MEDICATIONS [...]
--- OUTSIDE RECORDS SUMMARY | 2019-09-01 05:54 | XMS REPORT ---
Author Olivia Eason Organization [employer] Address Unknown Phone Unavailable Care Team Providers Care [employer] Pathology Teacher Name Role Phone SHOSHANA BARILLAS CP Unavailable Allergies No Known Allergies Problems Problem Type Condition Code Onset Dates Condition Statu s Problem Bipolar I disorder, most recent episode (or current) mixed, moderate 296.62 Active Problem Bipolar I disorder, most rec ent episode (or current) mixed, in partial or unspecified remission 296.65 Active Problem Raynaud's syndrome 443.0 Active Problem Posttraumatic stress disorder 309.81 Active Problem Other specified counseling V65.49 A ctive Problem COPD (chronic obstructive pulmonary dise ase) with acute bronchitis J44.0 Active Problem Diabetes mellitus without me ntion of complication, type II or unspecified type, not stated as uncontrolled 250.00 Active Problem Bipolar I disorder, most rec ent episode (or current) depressed, moderate 296.52 Active Problem Nondependent tobacco use disorder 305.1 Active Problem Pain in joint, pelvic region and thigh 719.45 Active Problem Fibromyalgia M79.7 Active Problem Bipolar I disorder, most rec ent episode (or current) mixed, severe, specified as with psychotic behavior 296.64 Act ariella Problem Unspecified hereditary and idiopathic peripheral neuro keely 356.9 Active Medications Medication Code System Code Instructions Start Date End Date Status Dosage Nicotine Step 2 [facility][NOTE 3] [address] 14 MG/24HR Trans dermal Once a day F/U with Shoshana in a week from starting Patch May 31, 2015 Jun 07, 2015 1 patch to skin Results No Known Results Summary Purpose [employer] Submission
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
--- OUTSIDE RECORDS SUMMARY | 2019-09-01 05:54 | XMS REPORT ---
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 [address] [id number] [address] [place] [address], [place] [address] Apr, [facility] [address] [id number] [address] [place] [address], [place] [address] Apr, [facility] [address] [id number] [address] [place] [address], [place] [address] Apr, [facility] [address] [id number] [address] [place] [address], [place] [address] Apr, [facility] [address] [id number] [address] [place] [address], [place] [address] Apr, [facility] [address] [id number] [address] [place] [address], [place] [address] Apr, [facility] [address] [id number] [address] [place] [address], [place] [address] Apr, [facility] [address] [id number] [address] [place] [address], [place] [address] 29 Mar, 2013 [facility] [address] [id number] [address] [place] [address], [place] [address] 29 Mar, 2013 [facility] [address] [id number] [address] [place] [address], [place] [address] 29 Mar, 2013 [facility] [address] [id number] [address] [place] [address], [place] [address] 29 Mar, 2013 [facility] [address] [id number] [address] [place] [address], [place] [address] 10 Mar, 2013 [facility] [address] [id number] [address] [place] [address], [place] [address] 10 Mar, 2013 [facility] [address] [id number] [address] [place] [address], [place] [address] 04 Mar, 2013 [facility] [address] [id number] [address] [place] [address], [place] [address] 04 Sep, 2013 [facility] [address] [id number] [address] [place] [address], [place] [address] 02 Mar, 2013 [facility] [address] [id number] [address] [place] [address], [place] [address] 02 Sep, 2013 [facility] [address] [id number] [address] [place] [address], [place] [address] Mar, [facility] [address] [id number] [facility] [place] [address] Mar, [facility] [address] [id number] [address] [place] [address], [place] [address] Feb, [facility] [address] [id number] [address] [place] [address], [place] [address] Feb, [facility] [address] [id number] [address] [place] [address], [place] [address] Jan, [facility] [address] [id number] [address] [place] [address], [place] [address] Jan, [facility] [address] [id number] [address] [place] [address], [place] [address] Jan, [facility] [address] [id number] [address] [place] [address], [place] [address] Jan, [facility] [address] [id number] [address] [place] [address], [place] [address] Dec, [facility] [address] [id number] [address] [place] [address], [place] [address] Dec, [facility] [address] [id number] [address] [place] [address], [place] [address] Dec, [facility] [address] [id number] [address] [place] [address], [place] [address] Dec, [facility] [address] [id number] [address] [place] [address], [place] [address] Dec, [facility] [address] [id number] [address] [place] [address], [place] [address] Dec, [facility] [address] [id number] [address] [place] [address], [place] [address] November, [facility] [address] [id number] [address] [place] [address], [place] [address] November, [facility] [address] [id number] [address] [place] [address], [place] [address] November, [facility] [address] [id number] [address] [place] [address], [place] [address] November, [facility] [address] [id number] [address] [place] [address], [place] [address] November, [facility] [address] [id number] [address] [place] [address], [place] [address] November, [facility] [address] [place] [id number] November, [facility] [address] [id number] [address] [place] [address], [place] [address] November, [facility] [address] [id number] [address] [place] [address], [place] [address] November, [facility] [address] [id number] [address] [place] [address], [place] [address] November, [facility] [address] [id number] [address] [place] [address], [place] [address] November, [facility] [address] [id number] [address] [place] [address], [place] [address] November, [facility] [address] [id number] [address] [place] [address], [place] [address] Oct, [facility] [address] [id number] [address] [place] [address], [place] [address] Oct, [facility] [address] [id number] [address] [place] [address], [place] [address] Oct, [facility] [address] [id number] [address] [place] [address], [place] [address] Oct, [facility] [address] [id number] [address] [place] [address], [place] [address] Oct, [facility] [address] [id number] [address] [place] [address], [place] [address] Oct, [facility] [address] [id number] [facility] [place] [address] Oct, [facility] [address] [id number] [facility] [place] [address] Oct, [facility] [address] [id number] [facility] [place] [address] Oct, [facility] [address] [id number] [address] [place] [address], [place] [address] Oct, [facility] [address] [id number] [address] [place] [address], [place] [address] Oct, [facility] [address] [id number] [address] [place] [address], [place] [address] Oct, [facility] [address] [id number] [address] [place] [address], [place] [address] Oct, [facility] [address] [id number] [address] [place] [address], [place] [address] Oct, [facility] [address] [id number] [address] [place] [address], [place] [address] Oct, [facility] [address] [id number] [address] [place] [address], [place] [address] Sep, [facility] [address] [id number] [address] [place] [address], [place] [address] Sep, [facility] [address] [id number] [address] [place] [address], [place] [address] Sep, [facility] [address] [id number] [address] [place] [address], [place] [address] Sep, [facility] [address] [id number] [address] [place] [address], [place] [address] Aug, [facility] [address] [id number] [address] [place] [address], [place] [address] Aug, [facility] [address] [id number] [address] [place] [address], [place] [address] Aug, [facility] [address] [id number] [facility] [place] [address] Aug, [facility] [address] [id number] [address] [place] [address], [place] [address] Jul, [facility] [address] [id number] [address] [place] [address], [place] [address] Jul, [facility] [address] [id number] [address] [place] [address], [place] [address] Jul, [facility] [address] [id number] [address] [place] [address], [place] [address] Jul, [facility] [address] [id number] [address] [place] [address], [place] [address] Jul, [facility] [address] [id number] [address] [place] [address], [place] [address] Jul, [facility] [address] [id number] [address] [place] [address], [place] [address] Jul, [facility] [address] [id number] [address] [place] [address], [place] [address] Jul, [facility] [address] [id number] [address] [place] [address], [place] [address] Jul, [facility] [address] [id number] [address] [place] [address], [place] [address] Jul, [facility] [address] [id number] [address] [place] [address], [place] [address] Jul, [facility] [address] [id number] [address] [place] [address], [place] [address] Jul, [facility] [address] [id number] [address] [place] [address], [place] [address] Jul, [facility] [address] [id number] [address] [place] [address], [place] [address] Jul, [facility] [address] [id number] [address] [place] [address], [place] [address] Jun, [facility] [address] [id number] [address] [place] [address], [place] [address] Jun, [facility] [address] [id number] [address] [place] [address], [place] [address] Jun, [facility] [address] [id number] [address] [place] [address], [place] [address] Jun, [facility] [address] [id number] [address] [place] [address], [place] [address] May, [facility] [address] [id number] [address] [place] [address], [place] [address] May, [facility] [address] [id number] [address] [place] [address], [place] [address] May, [facility] [address] [id number] [address] [place] [address], [place] [address] May, [facility] [address] [id number] [address] [place] [address], [place] [address] May, [facility] [address] [id number] [address] [place] [address], [place] [address] May, [facility] [address] [id number] [address] [place] [address], [place] [address] May, [facility] [address] [id number] [address] [place] [address], [place] [address] May, [facility] [address] [id number] [address] [place] [address], [place] [address] Apr, [facility] [address] [id number] [address] [place] [address], [place] [address] Apr, [facility] [address] [id number] [address] [place] [address], [place] [address] Apr, [facility] [address] [id number] [address] [place] [address], [place] [address] Apr, [facility] [address] [id number] [address] [place] [address], [place] [address] Apr, [facility] [address] [id number] [address] [place] [address], [place] [address] Apr, [facility] [address] [id number] [address] [place] [address], [place] [address] 30 Mar, 2013 [facility] [address] [id number] [address] [place] [address], [place] [address] 26 Mar, 2013 [facility] [address] [id number] [address] [place] [address], [place] [address] 20 Mar, 2013 [facility] [address] [id number] [address] [place] [address], [place] [address] 17 Mar, 2013 [facility] [address] [id number] [address] [place] [address], [place] [address] 16 Mar, 2013 [facility] [address] [id number] [address] [place] [address], [place] [address] 05 Mar, 2013 [facility] [address] [id number] [address] [place] [address], [place] [address] Feb, [facility] [address] [id number] [address] [place] [address], [place] [address] Feb, [facility] [address] [id number] [address] [place] [address], [place] [address] Feb, [facility] [address] [id number] [address] [place] [address], [place] [address] Feb, [facility] [address] [id number] [address] [place] [address], [place] [address] Jan, [facility] [address] [id number] [address] [place] [address], [place] [address] Jan, [facility] [address] [id number] [address] [place] [address], [place] [address] Jan, [facility] [address] [id number] [address] [place] [address], [place] [address] Jan, [facility] [address] [id number] [address] [place] [address], [place] [address] Jan, [facility] [address] [id number] [address] [place] [address], [place] [address] Dec, [facility] [address] [id number] [address] [place] [address], [place] [address] Dec, [facility] [address] [id number] [address] [place] [address], [place] [address] Dec, [facility] [address] [id number] [address] [place] [address], [place] [address] November, [facility] [address] [id number] [address] [place] [address], [place] [address] November, [facility] [address] [id number] [address] [place] [address], [place] [address] November, [facility] [address] [id number] [address] [place] [address], [place] [address] Oct, [facility] [address] [id number] [address] [place] [address], [place] [address] Oct, [facility] [address] [id number] [address] [place] [address], [place] [address] Oct, [facility] [address] [id number] [address] [place] [address], [place] [address] Oct, [facility] [address] [id number] [address] [place] [address], [place] [address] 18 Oct, 2012 [facility] [address] [id number] [address] [place] [address], [place] [address] 17 Oct, 2012 [facility] [address] [id number] [address] [place] [address], [place] [address] 15 Oct, 2012 [facility] [address] [id number] [address] [place] [address], [place] [address] Sep, [facility] [address] [id number] [address] [place] [address], [place] [address] 13 Sep, 2012 [facility] [address] [id number] [address] [place] [address], [place] [address] Sep, [facility] [address] [id number] [address] [place] [address], [place] [address] Sep, [facility] [address] [id number] [address] [place] [address], [place] [address] Aug, [facility] [address] [id number] [address] [place] [address], [place] [address] Aug, [facility] [address] [id number] [address] [place] [address], [place] [address] Aug, [facility] [address] [id number] [address] [place] [address], [place] [address] Aug, [facility] [address] [id number] [address] [place] [address], [place] [address] Aug, [facility] [address] [id number] [address] [place] [address], [place] [address] Aug, [facility] [address] [id number] [address] [place] [address], [place] [address] Jul, [facility] [address] [id number] [address] [place] [address], [place] [address] Jul, [facility] [address] [id number] [address] [place] [address], [place] [address] Jul, [facility] [address] [id number] [address] [place] [address], [place] [address] Jul, [facility] [address] [id number] [address] [place] [address], [place] [address] Jul, [facility] [address] [id number] [address] [place] [address], [place] [address] Jul, [facility] [address] [id number] [address] [place] [address], [place] [address] Jun, [facility] [address] [id number] [address] [place] [address], [place] [address] Jun, [facility] [address] [id number] [address] [place] [address], [place] [address] Jun, [facility] [address] [id number] [address] [place] [address], [place] [address] Jun, [facility] [address] [id number] [address] [place] [address], [place] [address] Jun, [facility] [address] [id number] [address] [place] [address], [place] [address] Jun, [facility] [address] [id number] [address] [place] [address], [place] [address] May, [facility] [address] [id number] [address] [place] [address], [place] [address] May, [facility] [address] [id number] [address] [place] [address], [place] [address] May, [facility] [address] [id number] [address] [place] [address], [place] [address] May, [facility] [address] [id number] [address] [place] [address], [place] [address] May, [facility] [address] [id number] [address] [place] [address], [place] [address] May, [facility] [address] [id number] [address] [place] [address], [place] [address] May, [facility] [address] [id number] [address] [place] [address], [place] [address] May, [facility] [address] [id number] [address] [place] [address], [place] [address] May, [facility] [address] [id number] [address] [place] [address], [place] [address] May, [facility] [address] [id number] [address] [place] [address], [place] [address] 31 Apr, 2012 [facility] [address] [id number] [address] [place] [address], [place] [address] 31 Apr, 2012 [facility] [address] [id number] [address] [place] [address], [place] [address] 23 Apr, 2012 [facility] [address] [id number] [address] [place] [address], [place] [address] 23 Apr, 2012 [facility] [address] [id number] [address] [place] [address], [place] [address] 16 Apr, 2012 [facility] [address] [id number] [address] [place] [address], [place] [address] 16 Apr, 2012 [facility] [address] [id number] [address] [place] [address], [place] [address] 15 Apr, 2012 [facility] [address] [id number] [address] [place] [address], [place] [address] 15 Apr, 2012 [facility] [address] [id number] [address] [place] [address], [place] [address] 05 Apr, 2012 [facility] [address] [id number] [address] [place] [address], [place] [address] 28 Mar, 2012 [facility] [address] [id number] [address] [place] [address], [place] [address] 26 Mar, 2012 [facility] [address] [id number] [address] [place] [address], [place] [address] 25 Mar, 2012 [facility] [address] [id number] [address] [place] [address], [place] [address] 19 Sep2011 [facility] [address] [id number] [address] [place] [address], [place] [address] 18 Mar, 2012 [facility] [address] [id number] [address] [place] [address], [place] [address] 05 Mar, 2012 [facility] [address] [id number] [address] [place] [address], [place] [address] Feb, [facility] [address] [id number] [address] [place] [address], [place] [address] Feb, [facility] [address] [id number] [address] [place] [address], [place] [address] Feb, [facility] [address] [id number] [address] [place] [address], [place] [address] Jan, [facility] [address] [id number] [address] [place] [address], [place] [address] Jan, [facility] [address] [id number] [address] [place] [address], [place] [address] Jan, [facility] [address] [id number] [address] [place] [address], [place] [address] Jan, [facility] [address] [id number] [address] [place] [address], [place] [address] Dec, [facility] [address] [id number] [address] [place] [address], [place] [address] November, [facility] [address] [id number] [address] [place] [address], [place] [address] November, [facility] [address] [id number] [address] [place] [address], [place] [address] November, [facility] [address] [id number] [address] [place] [address], [place] [address] November, [facility] [address] [id number] [address] [place] [address], [place] [address] November, [facility] [address] [id number] [address] [place] [address], [place] [address] November, [facility] [address] [id number] [address] [place] [address], [place] [address] Oct, [facility] [address] [id number] [address] [place] [address], [place] [address] Oct, [facility] [address] [id number] [address] [place] [address], [place] [address] Sep, [facility] [address] [id number] [address] [place] [address], [place] [address] Sep, [facility] [address] [id number] [address] [place] [address], [place] [address] Sep, [facility] [address] [id number] [address] [place] [address], [place] [address] Aug, [facility] [address] [id number] [address] [place] [address], [place] [address] Aug, [facility] [address] [id number] [address] [place] [address], [place] [address] Aug, [facility] [address] [id number] [address] [place] [address], [place] [address] Aug, [facility] [address] [id number] [address] [place] [address], [place] [address] Aug, [facility] [address] [id number] [address] [place] [address], [place] [address] Aug, [facility] [address] [id number] [address] [place] [address], [place] [address] Jul, [facility] [address] [id number] [address] [place] [address], [place] [address] Jul, [facility] [address] [id number] [address] [place] [address], [place] [address] Jul, [facility] [address] [id number] [address] [place] [address], [place] [address] Jul, [facility] [address] [id number] [address] [place] [address], [place] [address] Jul, [facility] [address] [id number] [address] [place] [address], [place] [address] Jul, [facility] [address] [id number] [address] [place] [address], [place] [address] Jul, [facility] [address] [id number] [address] [place] [address], [place] [address] Jul, [facility] [address] [id number] [address] [place] [address], [place] [address] Jul, [facility] [address] [id number] [address] [place] [address], [place] [address] Jul, [facility] [address] [id number] [address] [place] [address], [place] [address] Jun, [facility] [address] [id number] [address] [place] [address], [place] [address] Jun, [facility] [address] [id number] [address] [place] [address], [place] [address] Jun, [facility] [address] [id number] [address] [place] [address], [place] [address] Jun, [facility] [address] [id number] [address] [place] [address], [place] [address] May, [facility] [address] [id number] [address] [place] [address], [place] [address] May, [facility] [address] [id number] [address] [place] [address], [place] [address] May, [facility] [address] [id number] [address] [place] [address], [place] [address] May, [facility] [address] [id number] [address] [place] [address], [place] [address] Apr, [facility] [address] [id number] [address] [place] [address], [place] [address] Apr, [facility] [address] [id number] [address] [place] [address], [place] [address] November, [facility] [address] [id number] [address] [place] [address], [place] [address] Oct, [facility] [address] [id number] [address] [place] [address] 17 Aug, 2010 [facility] [address] [id number] [address] [place] [address], [place] [address] 28 Jun, 2010 [facility] [address] [id number] [address] [place] [address] 28 Jun, 2010 [facility] [address] [id number] [address] [place] [address], [place] [address] 27 Jun, 2010 [facility] [address] [id number] [address] [place] [address], [place] [address] 03 Jun, 2010 [facility] [address] [id number] [address] [place] [address], [place] [address] 29 May, 2010 [facility] [address] [id number] [address] [place] [address], [place] [address] 27 Apr, 2010 [facility] [address] [id number] [address] [place] [address] 13 Oct, 2009 [facility] [address] [id number] [address] [place] [address], [place] [address] 13 Aug, 2009 [facility] [address] [id number] [address] [place] [address] 20 Jul, 2009 [facility] [address] [id number] [address] [place] [address], [place] [address] 22 Jun, 2009 [facility] [address] [id number] [address] [place] [address] 16 Jun, 2009 [facility] [address] [id number] [address] [place] [address] 14 Jun, 2009 [facility] [address] [id number] [address] [place] [address], [place] [address] 14 Jun, 2009 [facility] [address] [id number] [address] [place] [address] 09 May, 2009 [facility] [address] [id number] [address] [place] [address] 20 Apr, 2009 [facility] [address] [id number] [address] [address] 15 Mar, 2009 [facility] [address] [facility] [id number] [address] [place] [address] 14 Mar, 2009 [facility] [address] [facility] [id number] [address] [place] [address] 11 Dec, 2008 IMMUNIZATIONS No Known Immunizations SOCIAL HISTORY Never Assessed REASON FOR VISIT Dizziness x1 month, Has sharp pain in head and headaches., R hip is unable to mo ve to side or backward without stinging pain and gives out., Every morning has l oose stools and cramps regardless of what she has eaten. PLAN OF CARE Activity Details Follow Up 4 Weeks Reason:Vertigo VITAL SIGNS Height 66.0 in 2017-07-20 Weight 202.6 lbs 2017-07-20 Temperature 97.9 degrees Fahrenheit 2017-07-20 Heart Rate 84 bpm 2017-07-20 Respiratory Rate 20 2017-07-20 BMI 32.70 kg/m2 2017-07-20 Blood pressure systolic 130 mmHg 2017-07-20 Blood pressure diastolic 74 mmHg 2017-07-20 MEDICATIONS Medication Instructions Dosage Frequency Start Date End Date Duration S tatus Risperdal 0.5 MG Orally every night 1 tablet Jun, 30 day(s) Active Lisinopril-Hydrochlorothiazide 20-25 MG Orally Once a day 1 tablet 24h Jul, 90 days Active Nicoderm CQ 21 MG/24HR Transdermal Once a day 1 patch to skin 24h Jun, 30 days Not-Taking Metformin HCl 500 mg Orally 2 times a day 2 tabs at noon and 1 i n the evening 12h Active Albuterol Sulfate (2.5 MG/3ML) 0.083% Inhalation 4 times a day as N eeded 3 ml Not-Taking Symbicort 160-4.5 MCG/ACT INHALE TWO PUFFS BY MOUTH TWICE DAILY 90 Active Ventolin HFA 108 (90 Base) MCG/ACT Inhalation every 4 hrs 2 puffs a s needed 4h 30 Active Meloxicam 15 MG Orally Once a day 1 tablet as needed 24h 90 days Active Hydrocodone-Acetaminophen 7.5-325 MG Orally Once a day at be dtime 1 tablet as needed Feb, Not-Taking Lancets 2 times per day Mar, Not -Taking Meclizine HCl 25 MG Orally twice a day for vertigo 1 tablet as need ed Jul, 30 day(s) Active Neurontin 100 MG Orally Once a day at bedtime 1 capsule Oct, 90 Active Duloxetine HCl 60 MG Orally every morning 2 capsule 30 days Active Clonazepam 0.5 MG Orally daily. MAX 60/month take 1-2 tabs daily up to twice a day prn anxiety 30 days Active Triamcinolone Acetonide 0.5 % Externally Twice a day 1 appli cation to affected area 12h 30 Jul, 2016 10 days Active Onzetra Xsail 11 MG/NOSEPC Nasally Once a day 1 spray in ea ch nostril as needed one time 24h 23 Apr, 2017 Not-Taking Ranitidine HCl 150 MG Orally 2 times a day 1 capsule 12h Jun, 7 30 days Active Tramadol HCl 50 mg Orally 3 times a day 1 tablet 8h Jun, 28 days Active Viberzi 75 MG Orally Twice a day 1 tablet with food 12h JulSep, 30 days Active Loratadine 10 MG TAKE ONE TABLET BY MOUTH AT BEDTIME FOR ALLERGI ES 30 Active Misc. Devices N/A Nebulizer machine May, Not-Taking ProAir HFA 108 (90 Base) MCG/ACT Inhalation every 6 hrs 2 puffs as ne eded 6h 30 days Not-Taking RESULTS No Results PROCEDURES Procedure Date Ordered Result Body Site [facility] VISIT ESTABLISHED PATIENT Jul 20, 2017 INSTRUCTIONS MEDICATIONS ADMINISTERED No Known Medications [...]
--- OUTSIDE RECORDS SUMMARY | 2019-09-01 05:56 | XMS REPORT | Continuity of Care Document ---
Author Organization Unknown Address Unknown Phone Unavailable Allergies Active Description Code Type Severity Reaction Onset Reported/Identified Relationship to Patient Clinical Status Yes No Known Drug Allergies [id number] Drug Allergy Unknown N/A 08/16/2019 Medications There is no data. Problems Date Dx Coded Attending Type Code Diagnosis Diagnosed By 01/17/2008 ALYSON ASHRAF DO 782 .3 EDEMA 01/17/2008 MELODY ALCANTARA PSYD 782.3 EDEMA 01/17/2008 TYRELL BARILLAS APRN S 782.3 EDEMA 01/17/2008 TYRELL BARILLAS APRN S 782.3 EDEMA 01/17/2008 782.3 EDEMA 01/17/2008 MELODY ALCANTARA PSYD 782.3 EDEMA 01/17/2008 782.3 EDEMA 01/17/2008 782.3 EDEMA 01/17/2008 782.3 EDEMA 01/17/2008 782.3 EDEMA 01/17/2008 782.3 EDEMA 01/17/2008 782.3 EDEMA 01/17/2008 ALYSON ASHRAF DO 782 .3 EDEMA 01/17/2008 MELODY ALCANTARA PSYD 782.3 EDEMA 01/17/2008 TESSA WEN APRN 782.3 EDEMA 01/17/2008 MELODY ALCANTARA PSYD 782.3 EDEMA 01/17/2008 TESSA WEN APRN 782.3 EDEMA 01/17/2008 NELIDACELSO BUTLER, JESSI A 78 2.3 EDEMA 01/17/2008 MELODY ALCANTARA PSYD 782.3 EDEMA 01/17/2008 LINUS LEWIS MD 782.3 EDEMA 01/17/2008 NELIDA BUTLER, JESSI A 78 2.3 EDEMA 01/17/2008 CHERYL GARCÍA APRN 782 .3 EDEMA 01/17/2008 MELODY ALCANTARA PSYD 782.3 EDEMA 01/17/2008 RAQUEL COIL CONNECTOR REPAIRER, CHERYL 782 .3 EDEMA 01/17/2008 DEBBIE BARRAGAN, LINUS 782.3 EDEMA 01/17/2008 SELMA COWART APRN 782.3 EDEMA 01/17/2008 NARGIS COIL CONNECTOR REPAIRER, TYRELL S 782.3 EDEMA 01/17/2008 RAQUEL COIL CONNECTOR REPAIRER, CHERYL 782 .3 EDEMA 01/17/2008 RAQUEL COIL CONNECTOR REPAIRER, CHERYL 782 .3 EDEMA 01/17/2008 RAQUEL COIL CONNECTOR REPAIRER, CHERYL 782 .3 EDEMA 01/17/2008 NARGIS COIL CONNECTOR REPAIRER, TYRELL S 782.3 EDEMA 01/17/2008 RAQUEL COIL CONNECTOR REPAIRER, CHERYL 782 .3 EDEMA 01/17/2008 MELODY ALCANTARA PSYD L 782.3 EDEMA 01/17/2008 NARGIS COIL CONNECTOR REPAIRER, TYRELL S 782.3 EDEMA 01/17/2008 NARGIS COIL CONNECTOR REPAIRER, TYRELL S 782.3 EDEMA 01/17/2008 RAQUEL COIL CONNECTOR REPAIRER, CHERYL 782 .3 EDEMA 01/17/2008 RONNY COIL CONNECTOR REPAIRERSHARON Aranda 782. 3 EDEMA 01/17/2008 RAQUEL COIL CONNECTOR REPAIRER, CHERYL 782 .3 EDEMA 01/17/2008 MELODY ALCANTARA PSYD L 782.3 EDEMA 01/17/2008 MELODY ALCANTARA PSYD ANN L 782.3 EDEMA 01/27/2008 ALYSON ASHRAF DO F 333 .99 RESTLESS LEG SYNDROME 01/27/2008 ALYSON ASHRAF DO F 729 .1 MYALGIA AND MYOSITIS UNSPECIFIED 01/27/2008 MELODY ALCANTARA PSYD L 333.99 RESTLESS LEG SYNDROME 01/27/2008 MELODY ALCANTARA PSYD L 729.1 MYALGIA AND MYOSITIS UNSPECIFIED 01/27/2008 NARGIS BUTLER, TYRELL S 333.99 RESTLESS LEG SYNDROME 01/27/2008 NARGIS COIL CONNECTOR REPAIRER, TYRELL S 729.1 MYALGIA AND MYOSITIS UNSPECIFIED 01/27/2008 NARGIS COIL CONNECTOR REPAIRER, TYRELL S 333.99 RESTLESS LEG SYNDROME 01/27/2008 NARGIS COIL CONNECTOR REPAIRER, TYRELL S 729.1 MYALGIA AND MYOSITIS UNSPECIFIED 01/27/2008 333.99 RES TLESS LEG SYNDROME 01/27/2008 729.1 MYAL SARAH AND MYOSITIS UNSPECIFIED 01/27/2008 MELODY ALCANTARA PSYD L 333.99 RESTLESS LEG SYNDROME 01/27/2008 MELODY ALCANTARA PSYD ANN L 729.1 MYALGIA AND MYOSITIS UNSPECIFIED 01/27/2008 333.99 RES TLESS LEG SYNDROME 01/27/2008 729.1 MYAL SARAH AND MYOSITIS UNSPECIFIED 01/27/2008 333.99 RES TLESS LEG SYNDROME 01/27/2008 729.1 MYAL SARAH AND MYOSITIS UNSPECIFIED 01/27/2008 333.99 RES TLESS LEG SYNDROME 01/27/2008 729.1 MYAL SARAH AND MYOSITIS UNSPECIFIED 01/27/2008 333.99 RES TLESS LEG SYNDROME 01/27/2008 729.1 MYAL SARAH AND MYOSITIS UNSPECIFIED 01/27/2008 333.99 RES TLESS LEG SYNDROME 01/27/2008 729.1 MYAL SARAH AND MYOSITIS UNSPECIFIED 01/27/2008 333.99 RES TLESS LEG SYNDROME 01/27/2008 729.1 MYAL SARAH AND MYOSITIS UNSPECIFIED 01/27/2008 ALYSON ASHRAF DO F 333 .99 RESTLESS LEG SYNDROME 01/27/2008 ALYSON ASHRAF DO F 729 .1 MYALGIA AND MYOSITIS UNSPECIFIED 01/27/2008 MELODY ALCANTARA PSYD L 333.99 RESTLESS LEG SYNDROME 01/27/2008 MELODY ALCANTARA PSYD ANN L 729.1 MYALGIA AND MYOSITIS UNSPECIFIED 01/27/2008 TESSA WEN APRN 333.99 RESTLESS LEG SYNDROME 01/27/2008 TESSA WEN APRN 729.1 MYALGIA AND MYOSITIS UNSPECIFIED 01/27/2008 MELODY ALCANTARA PSYD ANN L 333.99 RESTLESS LEG SYNDROME 01/27/2008 MELODY ALCANTARA PSYD ANN L 729.1 MYALGIA AND MYOSITIS UNSPECIFIED 01/27/2008 TESSA WEN APRN 333.99 RESTLESS LEG SYNDROME 01/27/2008 TESSA WEN APRN 729.1 MYALGIA AND MYOSITIS UNSPECIFIED 01/27/2008 NELIDA BUTLER, JESSI A 333.99 RESTLESS LEG SYNDROME 01/27/2008 NELIDA BUTLER, JESSI A 72 9.1 MYALGIA AND MYOSITIS UNSPECIFIED 01/27/2008 MELODY ALCANTARA PSYD L 333.99 RESTLESS LEG SYNDROME 01/27/2008 MELODY ALCANTARA PSYD L 729.1 MYALGIA AND MYOSITIS UNSPECIFIED 01/27/2008 LINUS LEWIS MD 333.9 9 RESTLESS LEG SYNDROME 01/27/2008 LINUS LEWIS MD 729.1 MYALGIA AND MYOSITIS UNSPECIFIED 01/27/2008 NELIDA BUTLER, JESSI A 333.99 RESTLESS LEG SYNDROME 01/27/2008 MERYL KRAUSE APRNIDI A 72 9.1 MYALGIA AND MYOSITIS UNSPECIFIED 01/27/2008 RAQUELSOHAN BUTLER CHERYL 333 .99 RESTLESS LEG SYNDROME 01/27/2008 RAQUELSOHAN BUTLER CHERYL 729 .1 MYALGIA AND MYOSITIS UNSPECIFIED 01/27/2008 MELODY ALCANTARA PSYD L 333.99 RESTLESS LEG SYNDROME 01/27/2008 MELODY ALCANTARA PSYD L 729.1 MYALGIA AND MYOSITIS UNSPECIFIED 01/27/2008 RAQUEL BUTLER CHERYL 333 .99 RESTLESS LEG SYNDROME 01/27/2008 RAQUEL BUTLER CHERYL 729 .1 MYALGIA AND MYOSITIS UNSPECIFIED 01/27/2008 LINUS LEWIS MD 333.9 9 RESTLESS LEG SYNDROME 01/27/2008 LIUNS LEWIS MD 729.1 MYALGIA AND MYOSITIS UNSPECIFIED 01/27/2008 SOFYA BUTLER, SELMA R 333.99 RESTLESS LEG SYNDROME 01/27/2008 SOFYA BUTLER SELMA R 729.1 MYALGIA AND MYOSITIS UNSPECIFIED 01/27/2008 NARGIS BUTLER TYRELL S 333.99 RESTLESS LEG SYNDROME 01/27/2008 NARGIS BUTLER TYRELL S 729.1 MYALGIA AND MYOSITIS UNSPECIFIED 01/27/2008 RAQUEL COIL CONNECTOR REPAIRER, CHERYL 333 .99 RESTLESS LEG SYNDROME 01/27/2008 RAQUEL COIL CONNECTOR REPAIRER, CHERYL 729 .1 MYALGIA AND MYOSITIS UNSPECIFIED 01/27/2008 RAQUEL COIL CONNECTOR REPAIRER, CHERYL 333 .99 RESTLESS LEG SYNDROME 01/27/2008 RAQUEL COIL CONNECTOR REPAIRER, CHERYL 729 .1 MYALGIA AND MYOSITIS UNSPECIFIED 01/27/2008 RAQUEL COIL CONNECTOR REPAIRER, CHERYL 333 .99 RESTLESS LEG SYNDROME 01/27/2008 RAQUEL COIL CONNECTOR REPAIRER, CHERYL 729 .1 MYALGIA AND MYOSITIS UNSPECIFIED 01/27/2008 NARGIS BUTLER, TYRELL S 333.99 RESTLESS LEG SYNDROME 01/27/2008 NARGIS BUTLER, TYRELL S 729.1 MYALGIA AND MYOSITIS UNSPECIFIED 01/27/2008 RAQUEL COIL CONNECTOR REPAIRER, CHERYL 333 .99 RESTLESS LEG SYNDROME 01/27/2008 RAQUEL COIL CONNECTOR REPAIRER, CHERYL 729 .1 MYALGIA AND MYOSITIS UNSPECIFIED 01/27/2008 MELODY ALCANTARA PSYD L 333.99 RESTLESS LEG SYNDROME 01/27/2008 MELODY ALCANTARA PSYD 729.1 MYALGIA AND MYOSITIS UNSPECIFIED 01/27/2008 NARGIS BUTLER TYRELL S 333.99 RESTLESS LEG SYNDROME 01/27/2008 NARGIS BUTLER TYRELL S 729.1 MYALGIA AND MYOSITIS UNSPECIFIED 01/27/2008 NARGIS BUTLER, TYRELL S 333.99 RESTLESS LEG SYNDROME 01/27/2008 NARGIS BUTLER TYRELL S 729.1 MYALGIA AND MYOSITIS UNSPECIFIED 01/27/2008 RAQUEL COIL CONNECTOR REPAIRER, CHERYL 333 .99 RESTLESS LEG SYNDROME 01/27/2008 RAQUEL COIL CONNECTOR REPAIRER, CHERYL 729 .1 MYALGIA AND MYOSITIS UNSPECIFIED 01/27/2008 SHARON JEFFERSON APRN 333. 99 RESTLESS LEG SYNDROME 01/27/2008 SHARON JEFFERSON APRN 729. 1 MYALGIA AND MYOSITIS UNSPECIFIED 01/27/2008 RAQUEL COIL CONNECTOR REPAIRER, CHERYL 333 .99 RESTLESS LEG SYNDROME 01/27/2008 RAQUEL COIL CONNECTOR REPAIRER, CHERYL 729 .1 MYALGIA AND MYOSITIS UNSPECIFIED 01/27/2008 MELODY ALCANTARA PSYD ANN L 333.99 RESTLESS LEG SYNDROME 01/27/2008 MELODY ALCANTARA PSYD ANN L 729.1 MYALGIA AND MYOSITIS UNSPECIFIED 01/27/2008 MARICRUZ POWERS, JUSTICE L 333.99 RESTLESS LEG SYNDROME 01/27/2008 MARICRUZ POWERS, JUSTICE L 729.1 MYALGIA AND MYOSITIS UNSPECIFIED 02/10/2008 ALYSON ASHRAF DO 296 .50 BIPOLAR I DISORDER MOST RECENT EPISODE (OR CURRENT) DEPRESSED UNSPECIFIED 02/10/2008 MELODY ALCANTARA PSYD ANN L 296.50 BIPOLAR I DISORDER MOST RECENT EPISODE ( OR CURRENT) DEPRESSED UNSPECIFIED 02/10/2008 TYRELL BARILLAS APRN 296.50 BIPOLAR I DISORDER MOST RECENT EPISODE ( OR CURRENT) DEPRESSED UNSPECIFIED 02/10/2008 TYRELL BARILLAS APRN 296.50 BIPOLAR I DISORDER MOST RECENT EPISODE ( OR CURRENT) DEPRESSED UNSPECIFIED 02/10/2008 296.50 BIP OLAR I DISORDER MOST RECENT EPISODE (OR CURRENT) DEPRESSED UNSPECIFIED 02/10/2008 MELODY ALCANTARA PSYD ANN L 296.50 BIPOLAR I DISORDER MOST RECENT EPISODE ( OR CURRENT) DEPRESSED UNSPECIFIED 02/10/2008 296.50 BIP OLAR I DISORDER MOST RECENT EPISODE (OR CURRENT) DEPRESSED UNSPECIFIED 02/10/2008 296.50 BIP OLAR I DISORDER MOST RECENT EPISODE (OR CURRENT) DEPRESSED UNSPECIFIED 02/10/2008 296.50 BIP OLAR I DISORDER MOST RECENT EPISODE (OR CURRENT) DEPRESSED UNSPECIFIED 02/10/2008 296.50 BIP OLAR I DISORDER MOST RECENT EPISODE (OR CURRENT) DEPRESSED UNSPECIFIED 02/10/2008 296.50 BIP OLAR I DISORDER MOST RECENT EPISODE (OR CURRENT) DEPRESSED UNSPECIFIED 02/10/2008 296.50 BIP OLAR I DISORDER MOST RECENT EPISODE (OR CURRENT) DEPRESSED UNSPECIFIED 02/10/2008 ALYSON ASHRAF DO 296 .50 BIPOLAR I DISORDER MOST RECENT EPISODE (OR CURRENT) DEPRESSED UNSPECIFIED 02/10/2008 MELODY ALCANTARA PSYD ANN L 296.50 BIPOLAR I DISORDER MOST RECENT EPISODE ( OR CURRENT) DEPRESSED UNSPECIFIED 02/10/2008 TESSA WEN APRN 296.50 BIPOLAR I DISORDER MOST RECENT EPISODE ( OR CURRENT) DEPRESSED UNSPECIFIED 02/10/2008 MELODY ALCANTARA PSYD ANN L 296.50 BIPOLAR I DISORDER MOST RECENT EPISODE ( OR CURRENT) DEPRESSED UNSPECIFIED 02/10/2008 TESSA WEN APRN 296.50 BIPOLAR I DISORDER MOST RECENT EPISODE ( OR CURRENT) DEPRESSED UNSPECIFIED 02/10/2008 NELIDA COIL CONNECTOR REPAIRER, JESSI A 296.50 BIPOLAR I DISORDER MOST RECENT EPISODE ( OR CURRENT) DEPRESSED UNSPECIFIED 02/10/2008 MELODY ALCANTARA PSYD ANN L 296.50 BIPOLAR I DISORDER MOST RECENT EPISODE ( OR CURRENT) DEPRESSED UNSPECIFIED 02/10/2008 LINUS LEWIS MD 296.5 0 BIPOLAR I DISORDER MOST RECENT EPISODE (OR CURRENT) DEPRESSED UNSPECIFIED 02/10/2008 NELIDA BUTLER, JESSI A 296.50 BIPOLAR I DISORDER MOST RECENT EPISODE ( OR CURRENT) DEPRESSED UNSPECIFIED 02/10/2008 RAQUEL COIL CONNECTOR REPAIRER, CHERYL 296 .50 BIPOLAR I DISORDER MOST RECENT EPISODE (OR CURRENT) DEPRESSED UNSPECIFIED 02/10/2008 MELODY ALCANTARA PSYD L 296.50 BIPOLAR I DISORDER MOST RECENT EPISODE ( OR CURRENT) DEPRESSED UNSPECIFIED 02/10/2008 RAQUEL COIL CONNECTOR REPAIRER, CHERYL 296 .50 BIPOLAR I DISORDER MOST RECENT EPISODE (OR CURRENT) DEPRESSED UNSPECIFIED 02/10/2008 LINUS LEWIS MD 296.5 0 BIPOLAR I DISORDER MOST RECENT EPISODE (OR CURRENT) DEPRESSED UNSPECIFIED 02/10/2008 SELMA COWART APRN 296.50 BIPOLAR I DISORDER MOST RECENT EPISODE ( OR CURRENT) DEPRESSED UNSPECIFIED 02/10/2008 ELPIDIO BARILLAS APRNA S 296.50 BIPOLAR I DISORDER MOST RECENT EPISODE ( OR CURRENT) DEPRESSED UNSPECIFIED 02/10/2008 RAQUEL COIL CONNECTOR REPAIRER, CHERYL 296 .50 BIPOLAR I DISORDER MOST RECENT EPISODE (OR CURRENT) DEPRESSED UNSPECIFIED 02/10/2008 RAQUEL COIL CONNECTOR REPAIRER, CHERYL 296 .50 BIPOLAR I DISORDER MOST RECENT EPISODE (OR CURRENT) DEPRESSED UNSPECIFIED 02/10/2008 RAQUEL COIL CONNECTOR REPAIRER, CHERYL 296 .50 BIPOLAR I DISORDER MOST RECENT EPISODE (OR CURRENT) DEPRESSED UNSPECIFIED 02/10/2008 KATHRYN BARILLAS APRNNDA S 296.50 BIPOLAR I DISORDER MOST RECENT EPISODE ( OR CURRENT) DEPRESSED UNSPECIFIED 02/10/2008 RAQUEL COIL CONNECTOR REPAIRER, CHERYL 296 .50 BIPOLAR I DISORDER MOST RECENT EPISODE (OR CURRENT) DEPRESSED UNSPECIFIED 02/10/2008 MELODY ALCANTARA PSYD 296.50 BIPOLAR I DISORDER MOST RECENT EPISODE ( OR CURRENT) DEPRESSED UNSPECIFIED 02/10/2008 TYRELL BARILLAS APRN S 296.50 BIPOLAR I DISORDER MOST RECENT EPISODE ( OR CURRENT) DEPRESSED UNSPECIFIED 02/10/2008 TYRELL BARILLAS APRN 296.50 BIPOLAR I DISORDER MOST RECENT EPISODE ( OR CURRENT) DEPRESSED UNSPECIFIED 02/10/2008 CHERYL GARCÍA APRN 296 .50 BIPOLAR I DISORDER MOST RECENT EPISODE (OR CURRENT) DEPRESSED UNSPECIFIED 02/10/2008 SHARON JEFFERSON APRN 296. 50 BIPOLAR I DISORDER MOST RECENT EPISODE (OR CURRENT) DEPRESSED UNSPECIFIED 02/10/2008 CHERYL GARCÍA APRN 296 .50 BIPOLAR I DISORDER MOST RECENT EPISODE (OR CURRENT) DEPRESSED UNSPECIFIED 02/10/2008 MELODY ALCANTARA PSYD 296.50 BIPOLAR I DISORDER MOST RECENT EPISODE ( OR CURRENT) DEPRESSED UNSPECIFIED 02/10/2008 MELODY ALCANTARA PSYD 296.50 BIPOLAR I DISORDER MOST RECENT EPISODE ( OR CURRENT) DEPRESSED UNSPECIFIED 02/12/2008 ALYSON ASHRAF DO V70 .0 GENERAL MEDICAL EXAM, ROUTINE, AT HEALTH CARE FACILITY 02/12/2008 MELODY ALCANTARA PSYD V70.0 GENERAL MEDICAL EXAM, ROUTINE, AT HEALTH CARE FACILITY 02/12/2008 TYRELL BARILLAS APRN V70.0 GENERAL MEDICAL EXAM, ROUTINE, AT HEALTH CARE FACILITY 02/12/2008 TYRELL BARILLAS APRN V70.0 GENERAL MEDICAL EXAM, ROUTINE, AT HEALTH CARE FACILITY 02/12/2008 V70.0 GENE RAL MEDICAL EXAM, ROUTINE, AT HEALTH CARE FACILITY 02/12/2008 MELODY ALCANTARA PSYD V70.0 GENERAL MEDICAL EXAM, ROUTINE, AT HEALTH CARE FACILITY 02/12/2008 V70.0 GENE RAL MEDICAL EXAM, ROUTINE, AT HEALTH CARE FACILITY 02/12/2008 V70.0 GENE RAL MEDICAL EXAM, ROUTINE, AT HEALTH CARE FACILITY 02/12/2008 V70.0 GENE RAL MEDICAL EXAM, ROUTINE, AT HEALTH CARE FACILITY 02/12/2008 V70.0 GENE RAL MEDICAL EXAM, ROUTINE, AT HEALTH CARE FACILITY 02/12/2008 V70.0 GENE RAL MEDICAL EXAM, ROUTINE, AT HEALTH CARE FACILITY 02/12/2008 V70.0 GENE RAL MEDICAL EXAM, ROUTINE, AT HEALTH CARE FACILITY 02/12/2008 ALYSON ASHRAF DO V70 .0 GENERAL MEDICAL EXAM, ROUTINE, AT HEALTH CARE FACILITY 02/12/2008 MELODY ALCANTARA PSYD V70.0 GENERAL MEDICAL EXAM, ROUTINE, AT HEALTH CARE FACILITY 02/12/2008 TESSA WEN APRN V70.0 GENERAL MEDICAL EXAM, ROUTINE, AT HEALTH CARE FACILITY 02/12/2008 MELODY ALCANTARA PSYD V70.0 GENERAL MEDICAL EXAM, ROUTINE, AT HEALTH CARE FACILITY 02/12/2008 TESSA WEN APRN V70.0 GENERAL MEDICAL EXAM, ROUTINE, AT HEALTH CARE FACILITY 02/12/2008 JESSI KRAUSE APRN A V7 0.0 GENERAL MEDICAL EXAM, ROUTINE, AT HEALTH CARE FACILITY 02/12/2008 MELODY ALCANTARA PSYD V70.0 GENERAL MEDICAL EXAM, ROUTINE, AT HEALTH CARE FACILITY 02/12/2008 LINUS LEWIS MD V70.0 GENERAL MEDICAL EXAM, ROUTINE, AT HEALTH CARE FACILITY 02/12/2008 JESSI KRAUSE APRN A V7 0.0 GENERAL MEDICAL EXAM, ROUTINE, AT HEALTH CARE FACILITY 02/12/2008 CHERYL GARCÍA APRN V70 .0 GENERAL MEDICAL EXAM, ROUTINE, AT HEALTH CARE FACILITY 02/12/2008 MELODY ALCANTARA PSYD V70.0 GENERAL MEDICAL EXAM, ROUTINE, AT HEALTH CARE FACILITY 02/12/2008 CHERYL GARCÍA APRN V70 .0 GENERAL MEDICAL EXAM, ROUTINE, AT HEALTH CARE FACILITY 02/12/2008 LINUS LEWIS MD V70.0 GENERAL MEDICAL EXAM, ROUTINE, AT HEALTH CARE FACILITY 02/12/2008 SELMA COWART APRN R V70.0 GENERAL MEDICAL EXAM, ROUTINE, AT HEALTH CARE FACILITY 02/12/2008 TYRELL BARILLAS APRN S V70.0 GENERAL MEDICAL EXAM, ROUTINE, AT HEALTH CARE FACILITY 02/12/2008 CHERYL GARCÍA APRN V70 .0 GENERAL MEDICAL EXAM, ROUTINE, AT HEALTH CARE FACILITY 02/12/2008 CHERYL GARCÍA APRN V70 .0 GENERAL MEDICAL EXAM, ROUTINE, AT HEALTH CARE FACILITY 02/12/2008 CHERYL GARCÍA APRN V70 .0 GENERAL MEDICAL EXAM, ROUTINE, AT HEALTH CARE FACILITY 02/12/2008 KATHRYN BARILLAS APRNNDA S V70.0 GENERAL MEDICAL EXAM, ROUTINE, AT HEALTH CARE FACILITY 02/12/2008 KYLE GARCÍA APRNETTE V70 .0 GENERAL MEDICAL EXAM, ROUTINE, AT HEALTH CARE FACILITY 02/12/2008 MELODY ALCANTARA PSYD L V70.0 GENERAL MEDICAL EXAM, ROUTINE, AT HEALTH CARE FACILITY 02/12/2008 KATHRYN BARILLAS APRNNDA S V70.0 GENERAL MEDICAL EXAM, ROUTINE, AT HEALTH CARE FACILITY 02/12/2008 KATHRYN BARILLAS APRNNDA S V70.0 GENERAL MEDICAL EXAM, ROUTINE, AT HEALTH CARE FACILITY 02/12/2008 CHERYL GARCÍA APRN V70 .0 GENERAL MEDICAL EXAM, ROUTINE, AT HEALTH CARE FACILITY 02/12/2008 SHARON JEFFERSON APRN V70. 0 GENERAL MEDICAL EXAM, ROUTINE, AT HEALTH CARE FACILITY 02/12/2008 CHERYL GARCÍA APRN V70 .0 GENERAL MEDICAL EXAM, ROUTINE, AT HEALTH CARE FACILITY 02/12/2008 MELODY ALCANTARA PSYD V70.0 GENERAL MEDICAL EXAM, ROUTINE, AT HEALTH CARE FACILITY 02/12/2008 MELODY ALCANTARA PSYD V70.0 GENERAL MEDICAL EXAM, ROUTINE, AT HEALTH CARE FACILITY 03/14/2008 ALYSON ASHRAF DO 307 .47 SI DYSSOMNIA NOS 03/14/2008 ALYSON ASHRAF DO 316 PF PSYCHIC FACTORS MED COND 03/14/2008 MELODY ALCANTARA PSYD 307.47 SI DYSSOMNIA NOS 03/14/2008 MELODY ALCANTARA PSYD 316 PF PSYCHIC FACTORS MED COND 03/14/2008 NARGIS BUTLER TYRELL S 307.47 SI DYSSOMNIA NOS 03/14/2008 KATHRYN BARILLAS APRNNDA S 316 PF PSYCHIC FACTORS MED COND 03/14/2008 NARGIS BUTLER TYRELL S 307.47 SI DYSSOMNIA NOS 03/14/2008 KATHRYN BARILLAS APRNNDA S 316 PF PSYCHIC FACTORS MED COND 03/14/2008 307.47 SI DYSSOMNIA NOS 03/14/2008 316 PF PSY CHIC FACTORS MED COND 03/14/2008 MELODY ALCANTARA PSYD ANN L 307.47 SI DYSSOMNIA NOS 03/14/2008 MELODY ALCANTARA PSYD ANN L 316 PF PSYCHIC FACTORS MED COND 03/14/2008 307.47 SI DYSSOMNIA NOS 03/14/2008 316 PF PSY CHIC FACTORS MED COND 03/14/2008 307.47 SI DYSSOMNIA NOS 03/14/2008 316 PF PSY CHIC FACTORS MED COND 03/14/2008 307.47 SI DYSSOMNIA NOS 03/14/2008 316 PF PSY CHIC FACTORS MED COND 03/14/2008 307.47 SI DYSSOMNIA NOS 03/14/2008 316 PF PSY CHIC FACTORS MED COND 03/14/2008 307.47 SI DYSSOMNIA NOS 03/14/2008 316 PF PSY CHIC FACTORS MED COND 03/14/2008 307.47 SI DYSSOMNIA NOS 03/14/2008 316 PF PSY CHIC FACTORS MED COND 03/14/2008 ALYSON ASHRAF DO F 307 .47 SI DYSSOMNIA NOS 03/14/2008 ALYSON ASHRAF DO F 316 PF PSYCHIC FACTORS MED COND 03/14/2008 MELODY ALCANTARA PSYD ANN L 307.47 SI DYSSOMNIA NOS 03/14/2008 MELODY ALCANTARA PSYD ANN L 316 PF PSYCHIC FACTORS MED COND 03/14/2008 TESSA WEN APRN 307.47 SI DYSSOMNIA NOS 03/14/2008 TESSA WEN APRN 316 PF PSYCHIC FACTORS MED COND 03/14/2008 MELODY ALCANTARA PSYD ANN L 307.47 SI DYSSOMNIA NOS 03/14/2008 MELODY ALCANTARA PSYD ANN L 316 PF PSYCHIC FACTORS MED COND 03/14/2008 TESSA WEN APRN 307.47 SI DYSSOMNIA NOS 03/14/2008 TESSA WEN APRN 316 PF PSYCHIC FACTORS MED COND 03/14/2008 JESSI KRAUSE APRN 307.47 SI DYSSOMNIA NOS 03/14/2008 JESSI KRAUSE APRN 31 6 PF PSYCHIC FACTORS MED COND 03/14/2008 MELODY ALCANTARA PSYD ANN L 307.47 SI DYSSOMNIA NOS 03/14/2008 MELODY ALCANTARA PSYD ANN L 316 PF PSYCHIC FACTORS MED COND 03/14/2008 LINUS LEWIS MD 307.4 7 SI DYSSOMNIA NOS 03/14/2008 LINUS LEWIS MD 316 PF PSYCHIC FACTORS MED COND 03/14/2008 NELIDA COIL CONNECTOR REPAIRER, JESSI A 307.47 SI DYSSOMNIA NOS 03/14/2008 NELIDA LUKE, JESSI A 31 6 PF PSYCHIC FACTORS MED COND 03/14/2008 RAQUEL COIL CONNECTOR REPAIRER, CHERYL 307 .47 SI DYSSOMNIA NOS 03/14/2008 RAQUEL COIL CONNECTOR REPAIRER, CHERYL 316 PF PSYCHIC FACTORS MED COND 03/14/2008 MELODY ALCANTARA PSYD ANN L 307.47 SI DYSSOMNIA NOS 03/14/2008 MELODY ALCANTARA PSYD ANN L 316 PF PSYCHIC FACTORS MED COND 03/14/2008 RAQUEL COIL CONNECTOR REPAIRER, CHERYL 307 .47 SI DYSSOMNIA NOS 03/14/2008 RAQUEL COIL CONNECTOR REPAIRER, CHERYL 316 PF PSYCHIC FACTORS MED COND 03/14/2008 LINUS LEWIS MD 307.4 7 SI DYSSOMNIA NOS 03/14/2008 LINUS LEWIS MD 316 PF PSYCHIC FACTORS MED COND 03/14/2008 SOFYA BUTLER SELMA R 307.47 SI DYSSOMNIA NOS 03/14/2008 SOFYA BUTLER SELMA R 3 16 PF PSYCHIC FACTORS MED COND 03/14/2008 TYRELL BARILLAS APRN S 307.47 SI DYSSOMNIA NOS 03/14/2008 KATHRYN BARILLAS APRNNDA S 316 PF PSYCHIC FACTORS MED COND 03/14/2008 RAQUEL COIL CONNECTOR REPAIRER, CHERYL 307 .47 SI DYSSOMNIA NOS 03/14/2008 RAQUEL COIL CONNECTOR REPAIRER, CHERYL 316 PF PSYCHIC FACTORS MED COND 03/14/2008 RAQUEL COIL CONNECTOR REPAIRER, CHERYL 307 .47 SI DYSSOMNIA NOS 03/14/2008 RAQUEL COIL CONNECTOR REPAIRER, CHERYL 316 PF PSYCHIC FACTORS MED COND 03/14/2008 RAQUEL COIL CONNECTOR REPAIRER, CHERYL 307 .47 SI DYSSOMNIA NOS 03/14/2008 RAQUEL COIL CONNECTOR REPAIRER, CHERYL 316 PF PSYCHIC FACTORS MED COND 03/14/2008 KATHRYN BARILLAS APRNNDA S 307.47 SI DYSSOMNIA NOS 03/14/2008 NARGIS BUTLER, TYRELL S 316 PF PSYCHIC FACTORS MED COND 03/14/2008 KYLE GARCÍA APRNETTE 307 .47 SI DYSSOMNIA NOS 03/14/2008 RAQUEL BUTLER CHERYL 316 PF PSYCHIC FACTORS MED COND 03/14/2008 MELODY ALCANTARA PSYD L 307.47 SI DYSSOMNIA NOS 03/14/2008 MELODY ALCANTARA PSYD L 316 PF PSYCHIC FACTORS MED COND 03/14/2008 NARGIS COIL CONNECTOR REPAIRER, TYRELL S 307.47 SI DYSSOMNIA NOS 03/14/2008 NARGIS COIL CONNECTOR REPAIRER, TYRELL S 316 PF PSYCHIC FACTORS MED COND 03/14/2008 NARGIS BUTLER, TYRELL S 307.47 SI DYSSOMNIA NOS 03/14/2008 NARGIS BUTLER, TYRELL S 316 PF PSYCHIC FACTORS MED COND 03/14/2008 CHERYL GARCÍA APRN 307 .47 SI DYSSOMNIA NOS 03/14/2008 RAQUEL BUTLER CHERYL 316 PF PSYCHIC FACTORS MED COND 03/14/2008 SHARON JEFFERSON APRN 307. 47 SI DYSSOMNIA NOS 03/14/2008 SHARON JEFFERSON APRN 316 PF PSYCHIC FACTORS MED COND 03/14/2008 CHERYL GARCÍA APRN 307 .47 SI DYSSOMNIA NOS 03/14/2008 RAQUEL BUTLER CHERYL 316 PF PSYCHIC FACTORS MED COND 03/14/2008 MELODY ALCANTARA PSYD L 307.47 SI DYSSOMNIA NOS 03/14/2008 MELODY ALCANTARA PSYD L 316 PF PSYCHIC FACTORS MED COND 03/14/2008 MELODY ALCANTARA PSYD ANN L 307.47 SI DYSSOMNIA NOS 03/14/2008 MELODY ALCANTARA PSYD ANN L 316 PF PSYCHIC FACTORS MED COND 03/17/2008 ALYSON ASHRAF DO V58 .69 LONG-TERM (CURRENT) USE OF OTHER MEDICATIONS 03/17/2008 MELODY ALCANTARA PSYD V58.69 LONG-TERM (CURRENT) USE OF OTHER MEDICATIONS 03/17/2008 TYRELL BARILLAS APRN S V58.69 LONG-TERM (CURRENT) USE OF OTHER MEDICATIONS 03/17/2008 TYRELL BARILLAS APRN V58.69 LONG-TERM (CURRENT) USE OF OTHER MEDICATIONS 03/17/2008 V58.69 YAKOV G-TERM (CURRENT) USE OF OTHER MEDICATIONS 03/17/2008 MELODY ALCANTARA PSYD V58.69 LONG-TERM (CURRENT) USE OF OTHER MEDICATIONS 03/17/2008 V58.69 YAKOV G-TERM (CURRENT) USE OF OTHER MEDICATIONS 03/17/2008 V58.69 YAKOV G-TERM (CURRENT) USE OF OTHER MEDICATIONS 03/17/2008 V58.69 YAKOV G-TERM (CURRENT) USE OF OTHER MEDICATIONS 03/17/2008 V58.69 YAKOV G-TERM (CURRENT) USE OF OTHER MEDICATIONS 03/17/2008 V58.69 YAKOV G-TERM (CURRENT) USE OF OTHER MEDICATIONS 03/17/2008 V58.69 YAKOV G-TERM (CURRENT) USE OF OTHER MEDICATIONS 03/17/2008 ALYSON ASHRAF DO V58 .69 LONG-TERM (CURRENT) USE OF OTHER MEDICATIONS 03/17/2008 MELODY ALCANTARA PSYD V58.69 LONG-TERM (CURRENT) USE OF OTHER MEDICATIONS 03/17/2008 TESSA WEN APRN V58.69 LONG-TERM (CURRENT) USE OF OTHER MEDICATIONS 03/17/2008 MELODY ALCANTARA PSYD V58.69 LONG-TERM (CURRENT) USE OF OTHER MEDICATIONS 03/17/2008 TESSA WEN APRN V58.69 LONG-TERM (CURRENT) USE OF OTHER MEDICATIONS 03/17/2008 JESSI KRAUSE APRN V58.69 LONG-TERM (CURRENT) USE OF OTHER MEDICATIONS 03/17/2008 MELODY ALCANTARA PSYD V58.69 LONG-TERM (CURRENT) USE OF OTHER MEDICATIONS 03/17/2008 LINUS LEWIS MD V58.6 9 LONG-TERM (CURRENT) USE OF OTHER MEDICATIONS 03/17/2008 JESSI KRAUSE APRN V58.69 LONG-TERM (CURRENT) USE OF OTHER MEDICATIONS 03/17/2008 CHERYL GARCÍA APRN V58 .69 LONG-TERM (CURRENT) USE OF OTHER MEDICATIONS 03/17/2008 MELODY ALCANTARA PSYD V58.69 LONG-TERM (CURRENT) USE OF OTHER MEDICATIONS 03/17/2008 CHERYL GARCÍA APRN V58 .69 LONG-TERM (CURRENT) USE OF OTHER MEDICATIONS 03/17/2008 LINUS LEWIS MD V58.6 9 LONG-TERM (CURRENT) USE OF OTHER MEDICATIONS 03/17/2008 SELMA COWART APRN V58.69 LONG-TERM (CURRENT) USE OF OTHER MEDICATIONS 03/17/2008 ELPIDIO BARILLAS APRNA S V58.69 LONG-TERM (CURRENT) USE OF OTHER MEDICATIONS 03/17/2008 CHERYL GARCÍA APRN V58 .69 LONG-TERM (CURRENT) USE OF OTHER MEDICATIONS 03/17/2008 CHERYL GARCÍA APRN V58 .69 LONG-TERM (CURRENT) USE OF OTHER MEDICATIONS 03/17/2008 CHERYL GARCÍA APRN V58 .69 LONG-TERM (CURRENT) USE OF OTHER MEDICATIONS 03/17/2008 ELPIDIO BARILLAS APRNA S V58.69 LONG-TERM (CURRENT) USE OF OTHER MEDICATIONS 03/17/2008 CHERYL GARCÍA APRN V58 .69 LONG-TERM (CURRENT) USE OF OTHER MEDICATIONS 03/17/2008 MELODY ALCANTARA PSYD L V58.69 LONG-TERM (CURRENT) USE OF OTHER MEDICATIONS 03/17/2008 ELPIDIO BARILLAS APRNA S V58.69 LONG-TERM (CURRENT) USE OF OTHER MEDICATIONS 03/17/2008 ELPIDIO BARILLAS APRNA S V58.69 LONG-TERM (CURRENT) USE OF OTHER MEDICATIONS 03/17/2008 CHERYL GARCÍA APRN V58 .69 LONG-TERM (CURRENT) USE OF OTHER MEDICATIONS 03/17/2008 SHARON JEFFERSON APRN V58. 69 LONG-TERM (CURRENT) USE OF OTHER MEDICATIONS 03/17/2008 CHERYL GARCÍA APRN V58 .69 LONG-TERM (CURRENT) USE OF OTHER MEDICATIONS 03/17/2008 MELODY ALCANTARA PSYD L V58.69 LONG-TERM (CURRENT) USE OF OTHER MEDICATIONS 03/17/2008 MELODY ALCANTARA PSYD L V58.69 LONG-TERM (CURRENT) USE OF OTHER MEDICATIONS 03/22/2008 ALYSON ASHRAF DO 295 .70 P SCHIZO AFFECTIVE 03/22/2008 MCCLEEARY PSYD, JUSTICE L 295.70 P SCHIZO AFFECTIVE 03/22/2008 NARGIS COIL CONNECTOR REPAIRER, TYRELL S 295.70 P SCHIZO AFFECTIVE 03/22/2008 NARGIS COIL CONNECTOR REPAIRER, TYRELL S 295.70 P SCHIZO AFFECTIVE 03/22/2008 295.70 P S CHIZO AFFECTIVE 03/22/2008 MARICRUZ POWERS, JUSTICE L 295.70 P SCHIZO AFFECTIVE 03/22/2008 295.70 P S CHIZO AFFECTIVE 03/22/2008 295.70 P S CHIZO AFFECTIVE 03/22/2008 295.70 P S CHIZO AFFECTIVE 03/22/2008 295.70 P S CHIZO AFFECTIVE 03/22/2008 295.70 P S CHIZO AFFECTIVE 03/22/2008 295.70 P S CHIZO AFFECTIVE 03/22/2008 ALYSON ASHRAF DO 295 .70 P SCHIZO AFFECTIVE 03/22/2008 MARICRUZ POWERS, JUSTICE L 295.70 P SCHIZO AFFECTIVE 03/22/2008 TREYTON TESSA BUTLER D 295.70 P SCHIZO AFFECTIVE 03/22/2008 MARICRUZ POWERS, JUSTICE L 295.70 P SCHIZO AFFECTIVE 03/22/2008 GARTON TESSA BUTLER D 295.70 P SCHIZO AFFECTIVE 03/22/2008 NELIDA APRN, JESSI A 295.70 P SCHIZO AFFECTIVE 03/22/2008 MARICRUZ POWERS, JUSTICE L 295.70 P SCHIZO AFFECTIVE 03/22/2008 LINUS LEWIS MD 295.7 0 P SCHIZO AFFECTIVE 03/22/2008 NELIDA APRN, JESSI A 295.70 P SCHIZO AFFECTIVE 03/22/2008 RAQUEL COIL CONNECTOR REPAIRER, CHERYL 295 .70 P SCHIZO AFFECTIVE 03/22/2008 MARICRUZ POWERS, JUSTICE L 295.70 P SCHIZO AFFECTIVE 03/22/2008 RAQUEL COIL CONNECTOR REPAIRER, CHERYL 295 .70 P SCHIZO AFFECTIVE 03/22/2008 LINUS LEWIS MD 295.7 0 P SCHIZO AFFECTIVE 03/22/2008 SOFYA BUTLER SELMA R 295.70 P SCHIZO AFFECTIVE 03/22/2008 NARGIS COIL CONNECTOR REPAIRER, TYRELL S 295.70 P SCHIZO AFFECTIVE 03/22/2008 RAQUEL COIL CONNECTOR REPAIRER, CHERYL 295 .70 P SCHIZO AFFECTIVE 03/22/2008 RAQUEL COIL CONNECTOR REPAIRER, CHERYL 295 .70 P SCHIZO AFFECTIVE 03/22/2008 RAQUEL COIL CONNECTOR REPAIRER, CHERYL 295 .70 P SCHIZO AFFECTIVE 03/22/2008 NARGIS COIL CONNECTOR REPAIRER, TYRELL S 295.70 P SCHIZO AFFECTIVE 03/22/2008 RAQUEL COIL CONNECTOR REPAIRER, CHERYL 295 .70 P SCHIZO AFFECTIVE 03/22/2008 MELODY ALCANTARA PSYD ANN L 295.70 P SCHIZO AFFECTIVE 03/22/2008 NRAGIS COIL CONNECTOR REPAIRER, TYRELL S 295.70 P SCHIZO AFFECTIVE 03/22/2008 NARGIS COIL CONNECTOR REPAIRER, TYRELL S 295.70 P SCHIZO AFFECTIVE 03/22/2008 RAQUEL COIL CONNECTOR REPAIRER, CHERYL 295 .70 P SCHIZO AFFECTIVE 03/22/2008 SHARON JEFFERSON APRN 295. 70 P SCHIZO AFFECTIVE 03/22/2008 RAQUEL COIL CONNECTOR REPAIRER, CHERYL 295 .70 P SCHIZO AFFECTIVE 03/22/2008 MELODY ALCANTARA PSYD L 295.70 P SCHIZO AFFECTIVE 03/22/2008 MELODY ALCANTARA PSYD L 295.70 P SCHIZO AFFECTIVE 04/24/2008 ALYSON ASHRAF DO 786 .05 SHORTNESS OF BREATH 04/24/2008 MELODY ALCANTARA PSYD L 786.05 SHORTNESS OF BREATH 04/24/2008 KATHRYN BARILLAS APRNNDA S 786.05 SHORTNESS OF BREATH 04/24/2008 KATHRYN BARILLAS APRNNDA S 786.05 SHORTNESS OF BREATH 04/24/2008 786.05 JUSTIN RTNESS OF BREATH 04/24/2008 MELODY ALCANTARA PSYD L 786.05 SHORTNESS OF BREATH 04/24/2008 786.05 JUSTIN RTNESS OF BREATH 04/24/2008 786.05 JUSTIN RTNESS OF BREATH 04/24/2008 786.05 JUSTIN RTNESS OF BREATH 04/24/2008 786.05 JUSTIN RTNESS OF BREATH 04/24/2008 786.05 JUSTIN RTNESS OF BREATH 04/24/2008 786.05 JUSTIN RTNESS OF BREATH 04/24/2008 ALYSON ASHRAF DO 786 .05 SHORTNESS OF BREATH 04/24/2008 MELODY ALCANTARA PSYD ANN L 786.05 SHORTNESS OF BREATH 04/24/2008 TESSA WEN APRN 786.05 SHORTNESS OF BREATH 04/24/2008 MELODY ALCANTARA PSYD ANN L 786.05 SHORTNESS OF BREATH 04/24/2008 TESSA WEN APRN 786.05 SHORTNESS OF BREATH 04/24/2008 NELIDA COIL CONNECTOR REPAIRER, JESSI A 786.05 SHORTNESS OF BREATH 04/24/2008 MELODY ALCANTARA PSYD ANN L 786.05 SHORTNESS OF BREATH 04/24/2008 LINUS LEWIS MD 786.0 5 SHORTNESS OF BREATH 04/24/2008 NELIDA COIL CONNECTOR REPAIRER, JESSI A 786.05 SHORTNESS OF BREATH 04/24/2008 RAQUEL COIL CONNECTOR REPAIRER, CHERYL 786 .05 SHORTNESS OF BREATH 04/24/2008 MELODY ALCANTARA PSYD ANN L 786.05 SHORTNESS OF BREATH 04/24/2008 RAUQEL COIL CONNECTOR REPAIRER, CHERYL 786 .05 SHORTNESS OF BREATH 04/24/2008 LINUS LEWIS MD 786.0 5 SHORTNESS OF BREATH 04/24/2008 SELMA COWART APRN R 786.05 SHORTNESS OF BREATH 04/24/2008 NARGIS COIL CONNECTOR REPAIRER, TYRELL S 786.05 SHORTNESS OF BREATH 04/24/2008 RAQUEL COIL CONNECTOR REPAIRER, CHERYL 786 .05 SHORTNESS OF BREATH 04/24/2008 RAQUEL COIL CONNECTOR REPAIRER, CHERYL 786 .05 SHORTNESS OF BREATH 04/24/2008 RAQUEL COIL CONNECTOR REPAIRER, CHERYL 786 .05 SHORTNESS OF BREATH 04/24/2008 NARGIS COIL CONNECTOR REPAIRER, TYRELL S 786.05 SHORTNESS OF BREATH 04/24/2008 RAQUEL COIL CONNECTOR REPAIRER, CHERYL 786 .05 SHORTNESS OF BREATH 04/24/2008 MELODY ALCANTARA PSYD ANN L 786.05 SHORTNESS OF BREATH 04/24/2008 NARGIS COIL CONNECTOR REPAIRER, TYRELL S 786.05 SHORTNESS OF BREATH 04/24/2008 NARGIS COIL CONNECTOR REPAIRER, TYRELL S 786.05 SHORTNESS OF BREATH 04/24/2008 RAQULE COIL CONNECTOR REPAIRER, CHERYL 786 .05 SHORTNESS OF BREATH 04/24/2008 SHARON JEFFERSON APRN D 786. 05 SHORTNESS OF BREATH 04/24/2008 RAQUEL COIL CONNECTOR REPAIRER, CHERYL 786 .05 SHORTNESS OF BREATH 04/24/2008 MELODY ALCANTARA PSYD ANN L 786.05 SHORTNESS OF BREATH 04/24/2008 MELODY ALCANTARA PSYD L 786.05 SHORTNESS OF BREATH 05/19/2008 ANDRIY HILL ALYSON F 995 .20 UNSPECIFIED ADVERSE EFFECT OF UNSPECIFIED DRUG MEDICINAL AND BIOLOGICAL SUBSTANCE 05/19/2008 ALYSON ASHRAF DO F E93 9.9 UNSPECIFIED PSYCHOTROPIC AGENT CAUSING ADVERSE EFFECTS IN THERAPEUTIC USE 05/19/2008 MELODY ALCANTARA PSYD L 995.20 UNSPECIFIED ADVERSE EFFECT OF UNSPECIFIE D DRUG MEDICINAL AND BIOLOGICAL SUBSTANCE 05/19/2008 MELODY ALCANTARA PSYD L E939.9 UNSPECIFIED PSYCHOTROPIC AGENT CAUSING A DVERSE EFFECTS IN THERAPEUTIC USE 05/19/2008 NARGIS BUTLER TYRELL S 995.20 UNSPECIFIED ADVERSE EFFECT OF UNSPECIFIE D DRUG MEDICINAL AND BIOLOGICAL SUBSTANCE 05/19/2008 ELPIDIO BARILLAS APRNA S E939.9 UNSPECIFIED PSYCHOTROPIC AGENT CAUSING A DVERSE EFFECTS IN THERAPEUTIC USE 05/19/2008 ELPIDIO BARILLAS APRNA S 995.20 UNSPECIFIED ADVERSE EFFECT OF UNSPECIFIE D DRUG MEDICINAL AND BIOLOGICAL SUBSTANCE 05/19/2008 KATHRYN BARILLAS APRNNDA S E939.9 UNSPECIFIED PSYCHOTROPIC AGENT CAUSING A DVERSE EFFECTS IN THERAPEUTIC USE 05/19/2008 995.20 UNS PECIFIED ADVERSE EFFECT OF UNSPECIFIED DRUG MEDICINAL AND BIOLOGICAL SUBSTANCE 05/19/2008 E939.9 UNS PECIFIED PSYCHOTROPIC AGENT CAUSING ADVERSE EFFECTS IN THERAPEUTIC USE 05/19/2008 MELODY ALCANTARA PSYD L 995.20 UNSPECIFIED ADVERSE EFFECT OF UNSPECIFIE D DRUG MEDICINAL AND BIOLOGICAL SUBSTANCE 05/19/2008 MELODY ALCANTARA PSYD L E939.9 UNSPECIFIED PSYCHOTROPIC AGENT CAUSING A DVERSE EFFECTS IN THERAPEUTIC USE 05/19/2008 995.20 UNS PECIFIED ADVERSE EFFECT OF UNSPECIFIED DRUG MEDICINAL AND BIOLOGICAL SUBSTANCE 05/19/2008 E939.9 UNS PECIFIED PSYCHOTROPIC AGENT CAUSING ADVERSE EFFECTS IN THERAPEUTIC USE 05/19/2008 995.20 UNS PECIFIED ADVERSE EFFECT OF UNSPECIFIED DRUG MEDICINAL AND BIOLOGICAL SUBSTANCE 05/19/2008 E939.9 UNS PECIFIED PSYCHOTROPIC AGENT CAUSING ADVERSE EFFECTS IN THERAPEUTIC USE 05/19/2008 995.20 UNS PECIFIED ADVERSE EFFECT OF UNSPECIFIED DRUG MEDICINAL AND BIOLOGICAL SUBSTANCE 05/19/2008 E939.9 UNS PECIFIED PSYCHOTROPIC AGENT CAUSING ADVERSE EFFECTS IN THERAPEUTIC USE 05/19/2008 995.20 UNS PECIFIED ADVERSE EFFECT OF UNSPECIFIED DRUG MEDICINAL AND BIOLOGICAL SUBSTANCE 05/19/2008 E939.9 UNS PECIFIED PSYCHOTROPIC AGENT CAUSING ADVERSE EFFECTS IN THERAPEUTIC USE 05/19/2008 995.20 UNS PECIFIED ADVERSE EFFECT OF UNSPECIFIED DRUG MEDICINAL AND BIOLOGICAL SUBSTANCE 05/19/2008 E939.9 UNS PECIFIED PSYCHOTROPIC AGENT CAUSING ADVERSE EFFECTS IN THERAPEUTIC USE 05/19/2008 995.20 UNS PECIFIED ADVERSE EFFECT OF UNSPECIFIED DRUG MEDICINAL AND BIOLOGICAL SUBSTANCE 05/19/2008 E939.9 UNS PECIFIED PSYCHOTROPIC AGENT CAUSING ADVERSE EFFECTS IN THERAPEUTIC USE 05/19/2008 ALYSON ASHRAF DO F 995 .20 UNSPECIFIED ADVERSE EFFECT OF UNSPECIFIED DRUG MEDICINAL AND BIOLOGICAL SUBSTANCE 05/19/2008 ANDRIY HILL ALYSON F E93 9.9 UNSPECIFIED PSYCHOTROPIC AGENT CAUSING ADVERSE EFFECTS IN THERAPEUTIC USE 05/19/2008 MELODY ALCANTARA PSYD L 995.20 UNSPECIFIED ADVERSE EFFECT OF UNSPECIFIE D DRUG MEDICINAL AND BIOLOGICAL SUBSTANCE 05/19/2008 MELODY ALCANTARA PSYD L E939.9 UNSPECIFIED PSYCHOTROPIC AGENT CAUSING A DVERSE EFFECTS IN THERAPEUTIC USE 05/19/2008 TESSA WEN APRN 995.20 UNSPECIFIED ADVERSE EFFECT OF UNSPECIFIE D DRUG MEDICINAL AND BIOLOGICAL SUBSTANCE 05/19/2008 TESSA WEN APRN E939.9 UNSPECIFIED PSYCHOTROPIC AGENT CAUSING A DVERSE EFFECTS IN THERAPEUTIC USE 05/19/2008 MELODY ALCANTARA PSYD L 995.20 UNSPECIFIED ADVERSE EFFECT OF UNSPECIFIE D DRUG MEDICINAL AND BIOLOGICAL SUBSTANCE 05/19/2008 MELODY ALCANTARA PSYD L E939.9 UNSPECIFIED PSYCHOTROPIC AGENT CAUSING A DVERSE EFFECTS IN THERAPEUTIC USE 05/19/2008 TESSA WEN APRN 995.20 UNSPECIFIED ADVERSE EFFECT OF UNSPECIFIE D DRUG MEDICINAL AND BIOLOGICAL SUBSTANCE 05/19/2008 TESSA WEN APRN E939.9 UNSPECIFIED PSYCHOTROPIC AGENT CAUSING A DVERSE EFFECTS IN THERAPEUTIC USE 05/19/2008 JESSI KRAUSE APRN 995.20 UNSPECIFIED ADVERSE EFFECT OF UNSPECIFIE D DRUG MEDICINAL AND BIOLOGICAL SUBSTANCE 05/19/2008 JESSI KRAUSE APRN E939.9 UNSPECIFIED PSYCHOTROPIC AGENT CAUSING A DVERSE EFFECTS IN THERAPEUTIC USE 05/19/2008 MELODY ALCANTARA PSYD L 995.20 UNSPECIFIED ADVERSE EFFECT OF UNSPECIFIE D DRUG MEDICINAL AND BIOLOGICAL SUBSTANCE 05/19/2008 MELODY ALCANTARA PSYD L E939.9 UNSPECIFIED PSYCHOTROPIC AGENT CAUSING A DVERSE EFFECTS IN THERAPEUTIC USE 05/19/2008 LINUS LEWIS MD 995.2 0 UNSPECIFIED ADVERSE EFFECT OF UNSPECIFIED DRUG MEDICINAL AND BIOLOGICAL SUBSTANCE 05/19/2008 LINUS LEWIS MD E939. 9 UNSPECIFIED PSYCHOTROPIC AGENT CAUSING ADVERSE EFFECTS IN THERAPEUTIC USE 05/19/2008 JESSI KRAUSE APRN A 995.20 UNSPECIFIED ADVERSE EFFECT OF UNSPECIFIE D DRUG MEDICINAL AND BIOLOGICAL SUBSTANCE 05/19/2008 JESSI KRAUSE APRN A E939.9 UNSPECIFIED PSYCHOTROPIC AGENT CAUSING A DVERSE EFFECTS IN THERAPEUTIC USE 05/19/2008 CHERYL GARCÍA APRN 995 .20 UNSPECIFIED ADVERSE EFFECT OF UNSPECIFIED DRUG MEDICINAL AND BIOLOGICAL SUBSTANCE 05/19/2008 CHERYL GARCÍA APRN E93 9.9 UNSPECIFIED PSYCHOTROPIC AGENT CAUSING ADVERSE EFFECTS IN THERAPEUTIC USE 05/19/2008 MELODY ALCANTARA PSYD L 995.20 UNSPECIFIED ADVERSE EFFECT OF UNSPECIFIE D DRUG MEDICINAL AND BIOLOGICAL SUBSTANCE 05/19/2008 MELODY ALCANTARA PSYD L E939.9 UNSPECIFIED PSYCHOTROPIC AGENT CAUSING A DVERSE EFFECTS IN THERAPEUTIC USE 05/19/2008 KYLE GARCÍA APRNETTE 995 .20 UNSPECIFIED ADVERSE EFFECT OF UNSPECIFIED DRUG MEDICINAL AND BIOLOGICAL SUBSTANCE 05/19/2008 CHERYL GARCÍA APRN E93 9.9 UNSPECIFIED PSYCHOTROPIC AGENT CAUSING ADVERSE EFFECTS IN THERAPEUTIC USE 05/19/2008 LINUS LEWIS MD 995.2 0 UNSPECIFIED ADVERSE EFFECT OF UNSPECIFIED DRUG MEDICINAL AND BIOLOGICAL SUBSTANCE 05/19/2008 LINUS LEWIS MD E939. 9 UNSPECIFIED PSYCHOTROPIC AGENT CAUSING ADVERSE EFFECTS IN THERAPEUTIC USE 05/19/2008 SOFYA BUTLER SELMA R 995.20 UNSPECIFIED ADVERSE EFFECT OF UNSPECIFIE D DRUG MEDICINAL AND BIOLOGICAL SUBSTANCE 05/19/2008 ROSY COWART APRNINA R E939.9 UNSPECIFIED PSYCHOTROPIC AGENT CAUSING A DVERSE EFFECTS IN THERAPEUTIC USE 05/19/2008 TYRELL BARILLAS APRN 995.20 UNSPECIFIED ADVERSE EFFECT OF UNSPECIFIE D DRUG MEDICINAL AND BIOLOGICAL SUBSTANCE 05/19/2008 ELPIDIO BARILLAS APRNA S E939.9 UNSPECIFIED PSYCHOTROPIC AGENT CAUSING A DVERSE EFFECTS IN THERAPEUTIC USE 05/19/2008 RAQUEL BUTLER, CHERYL 995 .20 UNSPECIFIED ADVERSE EFFECT OF UNSPECIFIED DRUG MEDICINAL AND BIOLOGICAL SUBSTANCE 05/19/2008 RAQUEL BUTLER, CHERYL E93 9.9 UNSPECIFIED PSYCHOTROPIC AGENT CAUSING ADVERSE EFFECTS IN THERAPEUTIC USE 05/19/2008 RAQUEL BUTLER, CHERYL 995 .20 UNSPECIFIED ADVERSE EFFECT OF UNSPECIFIED DRUG MEDICINAL AND BIOLOGICAL SUBSTANCE 05/19/2008 RAQUEL COIL CONNECTOR REPAIRER, CHERYL E93 9.9 UNSPECIFIED PSYCHOTROPIC AGENT CAUSING ADVERSE EFFECTS IN THERAPEUTIC USE 05/19/2008 RAQUEL BUTLER, CHERYL 995 .20 UNSPECIFIED ADVERSE EFFECT OF UNSPECIFIED DRUG MEDICINAL AND BIOLOGICAL SUBSTANCE 05/19/2008 RAQUEL BUTLER, CHERYL E93 9.9 UNSPECIFIED PSYCHOTROPIC AGENT CAUSING ADVERSE EFFECTS IN THERAPEUTIC USE 05/19/2008 ELPIDIO BARILLAS APRNA S 995.20 UNSPECIFIED ADVERSE EFFECT OF UNSPECIFIE D DRUG MEDICINAL AND BIOLOGICAL SUBSTANCE 05/19/2008 ELPIDIO BARILLAS APRNA S E939.9 UNSPECIFIED PSYCHOTROPIC AGENT CAUSING A DVERSE EFFECTS IN THERAPEUTIC USE 05/19/2008 RAQUEL BUTLER, CHERYL 995 .20 UNSPECIFIED ADVERSE EFFECT OF UNSPECIFIED DRUG MEDICINAL AND BIOLOGICAL SUBSTANCE 05/19/2008 RAQUEL BUTLER CHERYL E93 9.9 UNSPECIFIED PSYCHOTROPIC AGENT CAUSING ADVERSE EFFECTS IN THERAPEUTIC USE 05/19/2008 MELODY ALCANTARA PSYD ANN L 995.20 UNSPECIFIED ADVERSE EFFECT OF UNSPECIFIE D DRUG MEDICINAL AND BIOLOGICAL SUBSTANCE 05/19/2008 MELODY ALCANTARA PSYD ANN L E939.9 UNSPECIFIED PSYCHOTROPIC AGENT CAUSING A DVERSE EFFECTS IN THERAPEUTIC USE 05/19/2008 KATHRYN BARILLAS APRNNDA S 995.20 UNSPECIFIED ADVERSE EFFECT OF UNSPECIFIE D DRUG MEDICINAL AND BIOLOGICAL SUBSTANCE 05/19/2008 NARGIS BUTLER TYRELL S E939.9 UNSPECIFIED PSYCHOTROPIC AGENT CAUSING A DVERSE EFFECTS IN THERAPEUTIC USE 05/19/2008 NARGIS BUTLER TYRELL S 995.20 UNSPECIFIED ADVERSE EFFECT OF UNSPECIFIE D DRUG MEDICINAL AND BIOLOGICAL SUBSTANCE 05/19/2008 ELPIDIO BARILLAS APRNA S E939.9 UNSPECIFIED PSYCHOTROPIC AGENT CAUSING A DVERSE EFFECTS IN THERAPEUTIC USE 05/19/2008 RAQUEL BUTLER CHERYL 995 .20 UNSPECIFIED ADVERSE EFFECT OF UNSPECIFIED DRUG MEDICINAL AND BIOLOGICAL SUBSTANCE 05/19/2008 RAQUEL BUTLER CHERYL E93 9.9 UNSPECIFIED PSYCHOTROPIC AGENT CAUSING ADVERSE EFFECTS IN THERAPEUTIC USE 05/19/2008 SHARON JEFFERSON APRN 995. 20 UNSPECIFIED ADVERSE EFFECT OF UNSPECIFIED DRUG MEDICINAL AND BIOLOGICAL SUBSTANCE 05/19/2008 SHARON JEFFERSON APRN E939 .9 UNSPECIFIED PSYCHOTROPIC AGENT CAUSING ADVERSE EFFECTS IN THERAPEUTIC USE 05/19/2008 RAQUEL BUTLER CHERYL 995 .20 UNSPECIFIED ADVERSE EFFECT OF UNSPECIFIED DRUG MEDICINAL AND BIOLOGICAL SUBSTANCE 05/19/2008 RAQUEL BUTLER CHERYL E93 9.9 UNSPECIFIED PSYCHOTROPIC AGENT CAUSING ADVERSE EFFECTS IN THERAPEUTIC USE 05/19/2008 MELODY ALCANTARA PSYD L 995.20 UNSPECIFIED ADVERSE EFFECT OF UNSPECIFIE D DRUG MEDICINAL AND BIOLOGICAL SUBSTANCE 05/19/2008 MELODY ALCANTARA PSYD L E939.9 UNSPECIFIED PSYCHOTROPIC AGENT CAUSING A DVERSE EFFECTS IN THERAPEUTIC USE 05/19/2008 MELODY ALCANTARA PSYD L 995.20 UNSPECIFIED ADVERSE EFFECT OF UNSPECIFIE D DRUG MEDICINAL AND BIOLOGICAL SUBSTANCE 05/19/2008 MELODY ALCANTARA PSYD L E939.9 UNSPECIFIED PSYCHOTROPIC AGENT CAUSING A DVERSE EFFECTS IN THERAPEUTIC USE 06/13/2008 ALYSON ASHRAF DO 726 .91 EXOSTOSIS OF UNSPECIFIED SITE 06/13/2008 MELODY ALCANTARA PSYD L 726.91 EXOSTOSIS OF UNSPECIFIED SITE 06/13/2008 TYRELL BARILLAS APRN S 726.91 EXOSTOSIS OF UNSPECIFIED SITE 06/13/2008 TYRELL BARILLAS APRN S 726.91 EXOSTOSIS OF UNSPECIFIED SITE 06/13/2008 726.91 EXO STOSIS OF UNSPECIFIED SITE 06/13/2008 MELODY ALCANTARA PSYD L 726.91 EXOSTOSIS OF UNSPECIFIED SITE 06/13/2008 726.91 EXO STOSIS OF UNSPECIFIED SITE 06/13/2008 726.91 EXO STOSIS OF UNSPECIFIED SITE 06/13/2008 726.91 EXO STOSIS OF UNSPECIFIED SITE 06/13/2008 726.91 EXO STOSIS OF UNSPECIFIED SITE 06/13/2008 726.91 EXO STOSIS OF UNSPECIFIED SITE 06/13/2008 726.91 EXO STOSIS OF UNSPECIFIED SITE 06/13/2008 ANDRIY HILL ALYSON Fortunato 726 .91 EXOSTOSIS OF UNSPECIFIED SITE 06/13/2008 MELODY ALCANTARA PSYD L 726.91 EXOSTOSIS OF UNSPECIFIED SITE 06/13/2008 TESSA WEN APRN 726.91 EXOSTOSIS OF UNSPECIFIED SITE 06/13/2008 MELODY ALCANTARA PSYD ANN L 726.91 EXOSTOSIS OF UNSPECIFIED SITE 06/13/2008 TESSA WEN APRN 726.91 EXOSTOSIS OF UNSPECIFIED SITE 06/13/2008 JESSI KRAUSE APRN A 726.91 EXOSTOSIS OF UNSPECIFIED SITE 06/13/2008 MELODY ALCANTARA PSYD L 726.91 EXOSTOSIS OF UNSPECIFIED SITE 06/13/2008 LINUS LEWIS MD 726.9 1 EXOSTOSIS OF UNSPECIFIED SITE 06/13/2008 MERYL KRAUSE APRNIDI A 726.91 EXOSTOSIS OF UNSPECIFIED SITE 06/13/2008 RAQUEL BUTLER, CHERYL 726 .91 EXOSTOSIS OF UNSPECIFIED SITE 06/13/2008 MELODY ALCANTARA PSYD ANN L 726.91 EXOSTOSIS OF UNSPECIFIED SITE 06/13/2008 RAQUEL BUTLER CHERYL 726 .91 EXOSTOSIS OF UNSPECIFIED SITE 06/13/2008 LINUS LEWIS MD 726.9 1 EXOSTOSIS OF UNSPECIFIED SITE 06/13/2008 SELMA COWART APRN 726.91 EXOSTOSIS OF UNSPECIFIED SITE 06/13/2008 TYRELL BARILLAS APRN 726.91 EXOSTOSIS OF UNSPECIFIED SITE 06/13/2008 RAQUEL LUKE, CHERYL 726 .91 EXOSTOSIS OF UNSPECIFIED SITE 06/13/2008 RAQUEL LUKE, CHERYL 726 .91 EXOSTOSIS OF UNSPECIFIED SITE 06/13/2008 RAQULE LUKE, CHERYL 726 .91 EXOSTOSIS OF UNSPECIFIED SITE 06/13/2008 NARGIS COIL CONNECTOR REPAIRER, TYRELL S 726.91 EXOSTOSIS OF UNSPECIFIED SITE 06/13/2008 RAQUEL COIL CONNECTOR REPAIRER, CHERYL 726 .91 EXOSTOSIS OF UNSPECIFIED SITE 06/13/2008 MELODY ALCANTARA PSYD ANN L 726.91 EXOSTOSIS OF UNSPECIFIED SITE 06/13/2008 NARGIS BUTLER, TYRELL S 726.91 EXOSTOSIS OF UNSPECIFIED SITE 06/13/2008 NARGIS BUTLER, TYRELL S 726.91 EXOSTOSIS OF UNSPECIFIED SITE 06/13/2008 RAQUEL COIL CONNECTOR REPAIRER, CHERYL 726 .91 EXOSTOSIS OF UNSPECIFIED SITE 06/13/2008 SHARON JEFFERSON APRN 726. 91 EXOSTOSIS OF UNSPECIFIED SITE 06/13/2008 RAQUEL COIL CONNECTOR REPAIRER, CEHRYL 726 .91 EXOSTOSIS OF UNSPECIFIED SITE 06/13/2008 MELODY ALCANTARA PSYD ANN L 726.91 EXOSTOSIS OF UNSPECIFIED SITE 06/13/2008 MELODY ALCANTARA PSYD ANN L 726.91 EXOSTOSIS OF UNSPECIFIED SITE 08/02/2008 ALYSON ASHRAF DO 401 .1 BENIGN ESSENTIAL HYPERTENSION 08/02/2008 ALYSON ASHRAF DO 719 .41 PAIN IN JOINT INVOLVING SHOULDER REGION 08/02/2008 ALYSON ASHRAF DO 729 .5 PAIN IN LIMB 08/02/2008 MELODY ALCANTARA PSYD L 401.1 BENIGN ESSENTIAL HYPERTENSION 08/02/2008 MELODY ALCANTARA PSYD L 719.41 PAIN IN JOINT INVOLVING SHOULDER REGION 08/02/2008 MELODY ALCANTARA PSYD L 729.5 PAIN IN LIMB 08/02/2008 TYRELL BARILLAS APRN S 401.1 BENIGN ESSENTIAL HYPERTENSION 08/02/2008 KATHRYN BARILLAS APRNNDA S 719.41 PAIN IN JOINT INVOLVING SHOULDER REGION 08/02/2008 ELPIDIO BARILLAS APRNA S 729.5 PAIN IN LIMB 08/02/2008 KATHRYN BARILLAS APRNNDA S 401.1 BENIGN ESSENTIAL HYPERTENSION 08/02/2008 KATHRYN BARILLAS APRNNDA S 719.41 PAIN IN JOINT INVOLVING SHOULDER REGION 08/02/2008 ELPIDIO BARILLAS APRNA S 729.5 PAIN IN LIMB 08/02/2008 401.1 JOEY GN ESSENTIAL HYPERTENSION 08/02/2008 719.41 RICHA N IN JOINT INVOLVING SHOULDER REGION 08/02/2008 729.5 PAIN IN LIMB 08/02/2008 MELODY ALCANTARA PSYD ANN L 401.1 BENIGN ESSENTIAL HYPERTENSION 08/02/2008 MELODY ALCANTARA PSYD ANN L 719.41 PAIN IN JOINT INVOLVING SHOULDER REGION 08/02/2008 MELODY ALCANTARA PSYD ANN L 729.5 PAIN IN LIMB 08/02/2008 401.1 JOEY GN ESSENTIAL HYPERTENSION 08/02/2008 719.41 RICHA N IN JOINT INVOLVING SHOULDER REGION 08/02/2008 729.5 PAIN IN LIMB 08/02/2008 401.1 JOEY GN ESSENTIAL HYPERTENSION 08/02/2008 719.41 RICHA N IN JOINT INVOLVING SHOULDER REGION 08/02/2008 729.5 PAIN IN LIMB 08/02/2008 401.1 JOEY GN ESSENTIAL HYPERTENSION 08/02/2008 719.41 RICHA N IN JOINT INVOLVING SHOULDER REGION 08/02/2008 729.5 PAIN IN LIMB 08/02/2008 401.1 JOEY GN ESSENTIAL HYPERTENSION 08/02/2008 719.41 RICHA N IN JOINT INVOLVING SHOULDER REGION 08/02/2008 729.5 PAIN IN LIMB 08/02/2008 401.1 JOEY GN ESSENTIAL HYPERTENSION 08/02/2008 719.41 RICHA N IN JOINT INVOLVING SHOULDER REGION 08/02/2008 729.5 PAIN IN LIMB 08/02/2008 401.1 JOEY GN ESSENTIAL HYPERTENSION 08/02/2008 719.41 RICHA N IN JOINT INVOLVING SHOULDER REGION 08/02/2008 729.5 PAIN IN LIMB 08/02/2008 ALYSON ASHRAF DO 401 .1 BENIGN ESSENTIAL HYPERTENSION 08/02/2008 ALYSON ASHRAF DO 719 .41 PAIN IN JOINT INVOLVING SHOULDER REGION 08/02/2008 ALYSON ASHRAF DO 729 .5 PAIN IN LIMB 08/02/2008 MELODY ALCANTARA PSYD ANN L 401.1 BENIGN ESSENTIAL HYPERTENSION 08/02/2008 MELODY ALCANTARA PSYD ANN L 719.41 PAIN IN JOINT INVOLVING SHOULDER REGION 08/02/2008 MELODY ALCANTARA PSYD ANN L 729.5 PAIN IN LIMB 08/02/2008 TESSA WEN APRN 401.1 BENIGN ESSENTIAL HYPERTENSION 08/02/2008 TESSA WEN APRN 719.41 PAIN IN JOINT INVOLVING SHOULDER REGION 08/02/2008 TESSA WEN APRN 729.5 PAIN IN LIMB 08/02/2008 MELODY ALCANTARA PSYD L 401.1 BENIGN ESSENTIAL HYPERTENSION 08/02/2008 MELODY ALCANTARA PSYD ANN L 719.41 PAIN IN JOINT INVOLVING SHOULDER REGION 08/02/2008 MELODY ALCANTARA PSYD ANN L 729.5 PAIN IN LIMB 08/02/2008 TESSA WEN APRN 401.1 BENIGN ESSENTIAL HYPERTENSION 08/02/2008 TESSA WEN APRN 719.41 PAIN IN JOINT INVOLVING SHOULDER REGION 08/02/2008 TESSA WEN APRN 729.5 PAIN IN LIMB 08/02/2008 NELIDA BUTLER JESSI A 40 1.1 BENIGN ESSENTIAL HYPERTENSION 08/02/2008 NELIDA BUTLER JESSI A 719.41 PAIN IN JOINT INVOLVING SHOULDER REGION 08/02/2008 NELIDA BUTLER JESSI A 72 9.5 PAIN IN LIMB 08/02/2008 MELODY ALCANTARA PSYD L 401.1 BENIGN ESSENTIAL HYPERTENSION 08/02/2008 MELODY ALCANTARA PSYD 719.41 PAIN IN JOINT INVOLVING SHOULDER REGION 08/02/2008 MELODY ALCANTARA PSYD L 729.5 PAIN IN LIMB 08/02/2008 LINUS LEWIS MD 401.1 BENIGN ESSENTIAL HYPERTENSION 08/02/2008 LINUS LEWIS MD 719.4 1 PAIN IN JOINT INVOLVING SHOULDER REGION 08/02/2008 LINUS LEWIS MD 729.5 PAIN IN LIMB 08/02/2008 NELIDA BUTLER JESSI A 40 1.1 BENIGN ESSENTIAL HYPERTENSION 08/02/2008 NELIDA BUTLER JESSI A 719.41 PAIN IN JOINT INVOLVING SHOULDER REGION 08/02/2008 NELIDA BUTLER JESSI A 72 9.5 PAIN IN LIMB 08/02/2008 RAQUEL BUTLER CHERYL 401 .1 BENIGN ESSENTIAL HYPERTENSION 08/02/2008 KYLE GARCÍA APRNETTE 719 .41 PAIN IN JOINT INVOLVING SHOULDER REGION 08/02/2008 RAQUEL COIL CONNECTOR REPAIRER, CHERYL 729 .5 PAIN IN LIMB 08/02/2008 MELODY ALCANTARA PSYD ANN L 401.1 BENIGN ESSENTIAL HYPERTENSION 08/02/2008 MELODY ALCANTARA PSYD ANN L 719.41 PAIN IN JOINT INVOLVING SHOULDER REGION 08/02/2008 MELODY ALCANTARA PSYD ANN L 729.5 PAIN IN LIMB 08/02/2008 RAQUEL COIL CONNECTOR REPAIRER, CHERYL 401 .1 BENIGN ESSENTIAL HYPERTENSION 08/02/2008 RAQUEL COIL CONNECTOR REPAIRER, CHERYL 719 .41 PAIN IN JOINT INVOLVING SHOULDER REGION 08/02/2008 RAQUEL COIL CONNECTOR REPAIRER, CHERYL 729 .5 PAIN IN LIMB 08/02/2008 LINUS LEWIS MD 401.1 BENIGN ESSENTIAL HYPERTENSION 08/02/2008 LINUS LEWIS MD 719.4 1 PAIN IN JOINT INVOLVING SHOULDER REGION 08/02/2008 LINUS LEWIS MD 729.5 PAIN IN LIMB 08/02/2008 SOFYA BUTLER, SELMA R 401.1 BENIGN ESSENTIAL HYPERTENSION 08/02/2008 SOFYA BUTLER, SELMA R 719.41 PAIN IN JOINT INVOLVING SHOULDER REGION 08/02/2008 SOFYA COIL CONNECTOR REPAIRER, SELMA R 729.5 PAIN IN LIMB 08/02/2008 ELPIDIO BARILLAS APRNA S 401.1 BENIGN ESSENTIAL HYPERTENSION 08/02/2008 ELPIDIO BARILLAS APRNA S 719.41 PAIN IN JOINT INVOLVING SHOULDER REGION 08/02/2008 NARGIS BUTLER TYRELL S 729.5 PAIN IN LIMB 08/02/2008 RAQUEL COIL CONNECTOR REPAIRER, CHERYL 401 .1 BENIGN ESSENTIAL HYPERTENSION 08/02/2008 RAQUEL COIL CONNECTOR REPAIRER, CHERYL 719 .41 PAIN IN JOINT INVOLVING SHOULDER REGION 08/02/2008 RAQUEL COIL CONNECTOR REPAIRER, CHERYL 729 .5 PAIN IN LIMB 08/02/2008 RAQUEL COIL CONNECTOR REPAIRER, CHERYL 401 .1 BENIGN ESSENTIAL HYPERTENSION 08/02/2008 RAQUEL COIL CONNECTOR REPAIRER, CHERYL 719 .41 PAIN IN JOINT INVOLVING SHOULDER REGION 08/02/2008 RAQUEL COIL CONNECTOR REPAIRER, CHERYL 729 .5 PAIN IN LIMB 08/02/2008 RAQUEL COIL CONNECTOR REPAIRER, CHERYL 401 .1 BENIGN ESSENTIAL HYPERTENSION 08/02/2008 RAQUEL COIL CONNECTOR REPAIRER, CHERYL 719 .41 PAIN IN JOINT INVOLVING SHOULDER REGION 08/02/2008 RAQUEL COIL CONNECTOR REPAIRER, CHERYL 729 .5 PAIN IN LIMB 08/02/2008 KATHRYN BARILLAS APRNNDA S 401.1 BENIGN ESSENTIAL HYPERTENSION 08/02/2008 NARIGS BUTLER TYRELL S 719.41 PAIN IN JOINT INVOLVING SHOULDER REGION 08/02/2008 KATHRYN BARILLAS APRNNDA S 729.5 PAIN IN LIMB 08/02/2008 RAQUEL COIL CONNECTOR REPAIRER, CHERYL 401 .1 BENIGN ESSENTIAL HYPERTENSION 08/02/2008 RAQUEL COIL CONNECTOR REPAIRER, CHERYL 719 .41 PAIN IN JOINT INVOLVING SHOULDER REGION 08/02/2008 RAQUEL COIL CONNECTOR REPAIRER, CHERYL 729 .5 PAIN IN LIMB 08/02/2008 MELODY ALCANTARA PSYD ANN L 401.1 BENIGN ESSENTIAL HYPERTENSION 08/02/2008 MELODY ALCANTARA PSYD ANN L 719.41 PAIN IN JOINT INVOLVING SHOULDER REGION 08/02/2008 MELODY ALCANTARA PSYD ANN L 729.5 PAIN IN LIMB 08/02/2008 ELPIDIO BARILLAS APRNA S 401.1 BENIGN ESSENTIAL HYPERTENSION 08/02/2008 ELPIDIO BARILLAS APRNA S 719.41 PAIN IN JOINT INVOLVING SHOULDER REGION 08/02/2008 ELPIDIO BARILLAS APRNA S 729.5 PAIN IN LIMB 08/02/2008 KATHRYN BARILLAS APRNNDA S 401.1 BENIGN ESSENTIAL HYPERTENSION 08/02/2008 KATHRYN BARILLAS APRNNDA S 719.41 PAIN IN JOINT INVOLVING SHOULDER REGION 08/02/2008 KATHRYN BARILLAS APRNNDA S 729.5 PAIN IN LIMB 08/02/2008 RAQUEL BUTLER, CHERYL 401 .1 BENIGN ESSENTIAL HYPERTENSION 08/02/2008 RAQUEL COIL CONNECTOR REPAIRER, CHERYL 719 .41 PAIN IN JOINT INVOLVING SHOULDER REGION 08/02/2008 RAQUEL COIL CONNECTOR REPAIRER, CHERYL 729 .5 PAIN IN LIMB 08/02/2008 SHARON JEFFERSON APRN 401. 1 BENIGN ESSENTIAL HYPERTENSION 08/02/2008 SHARON JEFFERSON APRN 719. 41 PAIN IN JOINT INVOLVING SHOULDER REGION 08/02/2008 SHARON JEFFERSON APRN 729. 5 PAIN IN LIMB 08/02/2008 RAQUEL COIL CONNECTOR REPAIRER, CHERYL 401 .1 BENIGN ESSENTIAL HYPERTENSION 08/02/2008 RAQUEL COIL CONNECTOR REPAIRER, CHERYL 719 .41 PAIN IN JOINT INVOLVING SHOULDER REGION 08/02/2008 RAQUEL COIL CONNECTOR REPAIRER CHERYL 729 .5 PAIN IN LIMB 08/02/2008 MELODY ALCANTARA PSYD L 401.1 BENIGN ESSENTIAL HYPERTENSION 08/02/2008 MELODY ALCANTARA PSYD ANN L 719.41 PAIN IN JOINT INVOLVING SHOULDER REGION 08/02/2008 MELODY ALCANTARA PSYD ANN L 729.5 PAIN IN LIMB 08/02/2008 MELODY ALCANTARA PSYD ANN L 401.1 BENIGN ESSENTIAL HYPERTENSION 08/02/2008 MELODY ALCANTARA PSYD ANN L 719.41 PAIN IN JOINT INVOLVING SHOULDER REGION 08/02/2008 MELODY ALCANTARA PSYD ANN L 729.5 PAIN IN LIMB 09/01/2008 ALYSON ASHRAF DO 840 .4 ROTATOR CUFF (CAPSULE) SPRAIN 09/01/2008 MELODY ALCANTARA PSYD L 840.4 ROTATOR CUFF (CAPSULE) SPRAIN 09/01/2008 TYRELL BARILLAS APRN S 840.4 ROTATOR CUFF (CAPSULE) SPRAIN 09/01/2008 TYRELL BARILLAS APRN S 840.4 ROTATOR CUFF (CAPSULE) SPRAIN 09/01/2008 840.4 ROTA TOR CUFF (CAPSULE) SPRAIN 09/01/2008 MELODY ALCANTARA PSYD L 840.4 ROTATOR CUFF (CAPSULE) SPRAIN 09/01/2008 840.4 ROTA TOR CUFF (CAPSULE) SPRAIN 09/01/2008 840.4 ROTA TOR CUFF (CAPSULE) SPRAIN 09/01/2008 840.4 ROTA TOR CUFF (CAPSULE) SPRAIN 09/01/2008 840.4 ROTA TOR CUFF (CAPSULE) SPRAIN 09/01/2008 840.4 ROTA TOR CUFF (CAPSULE) SPRAIN 09/01/2008 840.4 ROTA TOR CUFF (CAPSULE) SPRAIN 09/01/2008 ALYSON ASHRAF DO 840 .4 ROTATOR CUFF (CAPSULE) SPRAIN 09/01/2008 MELODY ALCANTARA PSYD L 840.4 ROTATOR CUFF (CAPSULE) SPRAIN 09/01/2008 TESSA WEN APRN 840.4 ROTATOR CUFF (CAPSULE) SPRAIN 09/01/2008 MELODY ALCANTARA PSYD L 840.4 ROTATOR CUFF (CAPSULE) SPRAIN 09/01/2008 TESSA WEN APRN 840.4 ROTATOR CUFF (CAPSULE) SPRAIN 09/01/2008 NELIDA APRN, JESSI A 84 0.4 ROTATOR CUFF (CAPSULE) SPRAIN 09/01/2008 MELODY ALCANTARA PSYD 840.4 ROTATOR CUFF (CAPSULE) SPRAIN 09/01/2008 LINUS LEWIS MD 840.4 ROTATOR CUFF (CAPSULE) SPRAIN 09/01/2008 NELIDA BUTLER, JESSI A 84 0.4 ROTATOR CUFF (CAPSULE) SPRAIN 09/01/2008 RAQUEL COIL CONNECTOR REPAIRER, CHERYL 840 .4 ROTATOR CUFF (CAPSULE) SPRAIN 09/01/2008 MELODY ALCANTARA PSYD L 840.4 ROTATOR CUFF (CAPSULE) SPRAIN 09/01/2008 RAQUEL COIL CONNECTOR REPAIRER, CHERYL 840 .4 ROTATOR CUFF (CAPSULE) SPRAIN 09/01/2008 LINUS LEWIS MD 840.4 ROTATOR CUFF (CAPSULE) SPRAIN 09/01/2008 SELMA COWART APRN R 840.4 ROTATOR CUFF (CAPSULE) SPRAIN 09/01/2008 NARGIS BUTLER, TYRELL S 840.4 ROTATOR CUFF (CAPSULE) SPRAIN 09/01/2008 RAQUEL COIL CONNECTOR REPAIRER, CHERYL 840 .4 ROTATOR CUFF (CAPSULE) SPRAIN 09/01/2008 RAQUEL COIL CONNECTOR REPAIRER, CHERYL 840 .4 ROTATOR CUFF (CAPSULE) SPRAIN 09/01/2008 RAQUEL COIL CONNECTOR REPAIRER, CHERYL 840 .4 ROTATOR CUFF (CAPSULE) SPRAIN 09/01/2008 NARGIS BUTLER, TYRELL S 840.4 ROTATOR CUFF (CAPSULE) SPRAIN 09/01/2008 RAQUEL COIL CONNECTOR REPAIRER, CHERYL 840 .4 ROTATOR CUFF (CAPSULE) SPRAIN 09/01/2008 MELODY ALCANTARA PSYD L 840.4 ROTATOR CUFF (CAPSULE) SPRAIN 09/01/2008 NARGIS BUTLER, TYRELL S 840.4 ROTATOR CUFF (CAPSULE) SPRAIN 09/01/2008 NARGIS BUTLER, TYRELL S 840.4 ROTATOR CUFF (CAPSULE) SPRAIN 09/01/2008 RAQUEL COIL CONNECTOR REPAIRER, CHERYL 840 .4 ROTATOR CUFF (CAPSULE) SPRAIN 09/01/2008 SHARON JEFFERSON APRN 840. 4 ROTATOR CUFF (CAPSULE) SPRAIN 09/01/2008 CHERYL GARCÍA APRN 840 .4 ROTATOR CUFF (CAPSULE) SPRAIN 09/01/2008 MELODY ALCANTARA PSYD 840.4 ROTATOR CUFF (CAPSULE) SPRAIN 09/01/2008 MELODY ALCANTARA PSYD 840.4 ROTATOR CUFF (CAPSULE) SPRAIN 11/02/2008 ANDRIY HILL ALYSON F 300 .3 AN OBCESS COMP DIS 11/02/2008 MELODY ALCANTARA PSYD L 300.3 AN OBCESS COMP DIS 11/02/2008 KATHRYN BARILLAS APRNNDA S 300.3 AN OBCESS COMP DIS 11/02/2008 NARGIS BUTLER TYRELL S 300.3 AN OBCESS COMP DIS 11/02/2008 300.3 AN O BCESS COMP DIS 11/02/2008 MELODY ALCANTARA PSYD L 300.3 AN OBCESS COMP DIS 11/02/2008 300.3 AN O BCESS COMP DIS 11/02/2008 300.3 AN O BCESS COMP DIS 11/02/2008 300.3 AN O BCESS COMP DIS 11/02/2008 300.3 AN O BCESS COMP DIS 11/02/2008 300.3 AN O BCESS COMP DIS 11/02/2008 300.3 AN O BCESS COMP DIS 11/02/2008 ALYSON ASHRAF DO F 300 .3 AN OBCESS COMP DIS 11/02/2008 MELODY ALCANTARA PSYD L 300.3 AN OBCESS COMP DIS 11/02/2008 TESSA WEN APRN 300.3 AN OBCESS COMP DIS 11/02/2008 MELODY ALCANTARA PSYD L 300.3 AN OBCESS COMP DIS 11/02/2008 TESSA WEN APRN 300.3 AN OBCESS COMP DIS 11/02/2008 JESSI KRAUSE APRN A 30 0.3 AN OBCESS COMP DIS 11/02/2008 MELODY ALCANTARA PSYD 300.3 AN OBCESS COMP DIS 11/02/2008 LINUS LEWIS MD 300.3 AN OBCESS COMP DIS 11/02/2008 JESSI KRAUES APRN A 30 0.3 AN OBCESS COMP DIS 11/02/2008 CHERYL GARCÍA APRN 300 .3 AN OBCESS COMP DIS 11/02/2008 MELODY ALCANTARA PSYD ANN L 300.3 AN OBCESS COMP DIS 11/02/2008 RAQUEL BUTLER CHERYL 300 .3 AN OBCESS COMP DIS 11/02/2008 LINUS LEWIS MD 300.3 AN OBCESS COMP DIS 11/02/2008 SELMA COWART APRN 300.3 AN OBCESS COMP DIS 11/02/2008 KATHRYN BARILLAS APRNNDA S 300.3 AN OBCESS COMP DIS 11/02/2008 RAQUEL COIL CONNECTOR REPAIRER, CHERYL 300 .3 AN OBCESS COMP DIS 11/02/2008 RAQUEL COIL CONNECTOR REPAIRER, CHERYL 300 .3 AN OBCESS COMP DIS 11/02/2008 RAQUEL BUTLER CHERYL 300 .3 AN OBCESS COMP DIS 11/02/2008 NARGIS BUTLER TYRELL S 300.3 AN OBCESS COMP DIS 11/02/2008 RAQUEL BUTLER CHERYL 300 .3 AN OBCESS COMP DIS 11/02/2008 MELODY ALCANTARA PSYD ANN L 300.3 AN OBCESS COMP DIS 11/02/2008 NARGIS BUTLER TYRELL S 300.3 AN OBCESS COMP DIS 11/02/2008 NARGIS BUTLER, TYRELL S 300.3 AN OBCESS COMP DIS 11/02/2008 RAQUEL BUTLER CHERYL 300 .3 AN OBCESS COMP DIS 11/02/2008 SHARON JEFFERSON APRN 300. 3 AN OBCESS COMP DIS 11/02/2008 RAQUEL BUTLER CHERYL 300 .3 AN OBCESS COMP DIS 11/02/2008 MELODY ALCANTARA PSYD ANN L 300.3 AN OBCESS COMP DIS 11/02/2008 MELODY ALCANTARA PSYD ANN L 300.3 AN OBCESS COMP DIS 12/21/2008 ALYSON ASHRAF DO F 706 .2 SEBACEOUS CYST 12/21/2008 MELODY ALCANTARA PSYD L 706.2 SEBACEOUS CYST 12/21/2008 NARGIS BUTLER TYRELL S 706.2 SEBACEOUS CYST 12/21/2008 NARGIS BUTLER TYRELL S 706.2 SEBACEOUS CYST 12/21/2008 706.2 SEBA CEOUS CYST 12/21/2008 MCCLEEARY PSYD, JUSTICE L 706.2 SEBACEOUS CYST 12/21/2008 706.2 SEBA CEOUS CYST 12/21/2008 706.2 SEBA CEOUS CYST 12/21/2008 706.2 SEBA CEOUS CYST 12/21/2008 706.2 SEBA CEOUS CYST 12/21/2008 706.2 SEBA CEOUS CYST 12/21/2008 706.2 SEBA CEOUS CYST 12/21/2008 ALYSON ASHRAF DO 706 .2 SEBACEOUS CYST 12/21/2008 MELODY ALCANTARA PSYD L 706.2 SEBACEOUS CYST 12/21/2008 GARTON COIL CONNECTOR REPAIRER, TESSA D 706.2 SEBACEOUS CYST 12/21/2008 MELODY ALCANTARA PSYD L 706.2 SEBACEOUS CYST 12/21/2008 TREYTON COIL CONNECTOR REPAIRER, TESSA D 706.2 SEBACEOUS CYST 12/21/2008 NELIDA APRN, JESSI A 70 6.2 SEBACEOUS CYST 12/21/2008 MELODY ALCANTARA PSYD L 706.2 SEBACEOUS CYST 12/21/2008 LINUS LEWIS MD 706.2 SEBACEOUS CYST 12/21/2008 NELIDA APRN, JESSI A 70 6.2 SEBACEOUS CYST 12/21/2008 RAQUEL COIL CONNECTOR REPAIRER, CHERYL 706 .2 SEBACEOUS CYST 12/21/2008 MELODY ALCANTARA PSYD L 706.2 SEBACEOUS CYST 12/21/2008 RAQUEL COIL CONNECTOR REPAIRER, CHERYL 706 .2 SEBACEOUS CYST 12/21/2008 LINUS LEWIS MD 706.2 SEBACEOUS CYST 12/21/2008 SOFYA COIL CONNECTOR REPAIRER, SELMA R 706.2 SEBACEOUS CYST 12/21/2008 NARGIS COIL CONNECTOR REPAIRER, TYRELL S 706.2 SEBACEOUS CYST 12/21/2008 RAQUEL COIL CONNECTOR REPAIRER, CHERYL 706 .2 SEBACEOUS CYST 12/21/2008 RAQUEL COIL CONNECTOR REPAIRER, CHERYL 706 .2 SEBACEOUS CYST 12/21/2008 RAQUEL COIL CONNECTOR REPAIRER, CHERYL 706 .2 SEBACEOUS CYST 12/21/2008 NARGIS COIL CONNECTOR REPAIRER, TYRELL S 706.2 SEBACEOUS CYST 12/21/2008 RAQUEL COIL CONNECTOR REPAIRER, CHERYL 706 .2 SEBACEOUS CYST 12/21/2008 MELODY ALCANTARA PSYD L 706.2 SEBACEOUS CYST 12/21/2008 TYRELL BARILLAS APRN S 706.2 SEBACEOUS CYST 12/21/2008 TYRELL BARILLAS APRN S 706.2 SEBACEOUS CYST 12/21/2008 RAQUEL LUKE, CHERYL 706 .2 SEBACEOUS CYST 12/21/2008 SHARON JEFFERSON APRN 706. 2 SEBACEOUS CYST 12/21/2008 RAQUEL LUKE CHERYL 706 .2 SEBACEOUS CYST 12/21/2008 MELODY ALCANTARA PSYD L 706.2 SEBACEOUS CYST 12/21/2008 MELODY ALCANTARA PSYD 706.2 SEBACEOUS CYST 03/08/2009 ALYSON ASHRAF DO 300 .00 AN ANXIETY UNSPEC 03/08/2009 MELODY ALCANTARA PSYD L 300.00 AN ANXIETY UNSPEC 03/08/2009 TYRELL BARILLAS APRN S 300.00 AN ANXIETY UNSPEC 03/08/2009 TYRELL BARILLAS APRN S 300.00 AN ANXIETY UNSPEC 03/08/2009 300.00 AN ANXIETY UNSPEC 03/08/2009 MELODY ALCANTARA PSYD L 300.00 AN ANXIETY UNSPEC 03/08/2009 300.00 AN ANXIETY UNSPEC 03/08/2009 300.00 AN ANXIETY UNSPEC 03/08/2009 300.00 AN ANXIETY UNSPEC 03/08/2009 300.00 AN ANXIETY UNSPEC 03/08/2009 300.00 AN ANXIETY UNSPEC 03/08/2009 300.00 AN ANXIETY UNSPEC 03/08/2009 ALYSON ASHRAF DO 300 .00 AN ANXIETY UNSPEC 03/08/2009 MELODY ALCANTARA PSYD L 300.00 AN ANXIETY UNSPEC 03/08/2009 TESSA WEN APRN 300.00 AN ANXIETY UNSPEC 03/08/2009 MELODY ALCANTARA PSYD L 300.00 AN ANXIETY UNSPEC 03/08/2009 TESSA WEN APRN 300.00 AN ANXIETY UNSPEC 03/08/2009 JESSI KRAUSE APRN 300.00 AN ANXIETY UNSPEC 03/08/2009 MELODY ALCANTARA PSYD L 300.00 AN ANXIETY UNSPEC 03/08/2009 LINUS LEWIS MD 300.0 0 AN ANXIETY UNSPEC 03/08/2009 NELIDA COIL CONNECTOR REPAIRER, JESSI A 300.00 AN ANXIETY UNSPEC 03/08/2009 RAQUEL COIL CONNECTOR REPAIRER, CHERYL 300 .00 AN ANXIETY UNSPEC 03/08/2009 MELODY ALCANTARA PSYD L 300.00 AN ANXIETY UNSPEC 03/08/2009 RAQUEL COIL CONNECTOR REPAIRER, CHERYL 300 .00 AN ANXIETY UNSPEC 03/08/2009 LINSU LEWIS MD 300.0 0 AN ANXIETY UNSPEC 03/08/2009 SELMA COWART APRN R 300.00 AN ANXIETY UNSPEC 03/08/2009 NARGIS COIL CONNECTOR REPAIRER, TYRELL S 300.00 AN ANXIETY UNSPEC 03/08/2009 RAQUEL COIL CONNECTOR REPAIRER, CHERYL 300 .00 AN ANXIETY UNSPEC 03/08/2009 RAQUEL COIL CONNECTOR REPAIRER, CHERYL 300 .00 AN ANXIETY UNSPEC 03/08/2009 RAQUEL COIL CONNECTOR REPAIRER, CHERYL 300 .00 AN ANXIETY UNSPEC 03/08/2009 NARGIS COIL CONNECTOR REPAIRER, TYRELL S 300.00 AN ANXIETY UNSPEC 03/08/2009 RAQUEL COIL CONNECTOR REPAIRER, CHERYL 300 .00 AN ANXIETY UNSPEC 03/08/2009 MELODY ALCANTARA PSYD L 300.00 AN ANXIETY UNSPEC 03/08/2009 NARGIS COIL CONNECTOR REPAIRER, TYRELL S 300.00 AN ANXIETY UNSPEC 03/08/2009 NARGIS BUTLER TYRELL S 300.00 AN ANXIETY UNSPEC 03/08/2009 RAQUEL COIL CONNECTOR REPAIRER, CHERYL 300 .00 AN ANXIETY UNSPEC 03/08/2009 RONNY BUTLER SHARON D 300. 00 AN ANXIETY UNSPEC 03/08/2009 RAQUEL COIL CONNECTOR REPAIRER, CHERYL 300 .00 AN ANXIETY UNSPEC 03/08/2009 MELODY ALCANTARA PSYD L 300.00 AN ANXIETY UNSPEC 03/08/2009 MELODY ALCANTARA PSYD 300.00 AN ANXIETY UNSPEC 03/26/2009 ALYSON ASHRAF DO V76 .11 SCREENING MAMMOGRAM FOR HIGH-RISK PATIENT 03/26/2009 MELODY ALCANTARA PSYD V76.11 SCREENING MAMMOGRAM FOR HIGH-RISK PATIENT 03/26/2009 ELPIDIO BARILLAS APRNA S V76.11 SCREENING MAMMOGRAM FOR HIGH-RISK PATIENT 03/26/2009 ELPIDIO BARILLAS APRNA S V76.11 SCREENING MAMMOGRAM FOR HIGH-RISK PATIENT 03/26/2009 V76.11 SCR EENING MAMMOGRAM FOR HIGH-RISK PATIENT 03/26/2009 MELODY ALCANTARA PSYD ANN L V76.11 SCREENING MAMMOGRAM FOR HIGH-RISK PATIENT 03/26/2009 V76.11 SCR EENING MAMMOGRAM FOR HIGH-RISK PATIENT 03/26/2009 V76.11 SCR EENING MAMMOGRAM FOR HIGH-RISK PATIENT 03/26/2009 V76.11 SCR EENING MAMMOGRAM FOR HIGH-RISK PATIENT 03/26/2009 V76.11 SCR EENING MAMMOGRAM FOR HIGH-RISK PATIENT 03/26/2009 V76.11 SCR EENING MAMMOGRAM FOR HIGH-RISK PATIENT 03/26/2009 V76.11 SCR EENING MAMMOGRAM FOR HIGH-RISK PATIENT 03/26/2009 ALYSON ASHRAF DO V76 .11 SCREENING MAMMOGRAM FOR HIGH-RISK PATIENT 03/26/2009 MELODY ALCANTARA PSYD ANN L V76.11 SCREENING MAMMOGRAM FOR HIGH-RISK PATIENT 03/26/2009 TESSA WEN APRN V76.11 SCREENING MAMMOGRAM FOR HIGH-RISK PATIENT 03/26/2009 MELODY ALCANTARA PSYD ANN L V76.11 SCREENING MAMMOGRAM FOR HIGH-RISK PATIENT 03/26/2009 TREYTON TESSA BUTLER D V76.11 SCREENING MAMMOGRAM FOR HIGH-RISK PATIENT 03/26/2009 NELIDA BUTLER, JESSI A V76.11 SCREENING MAMMOGRAM FOR HIGH-RISK PATIENT 03/26/2009 MELODY ALCANTARA PSYD ANN L V76.11 SCREENING MAMMOGRAM FOR HIGH-RISK PATIENT 03/26/2009 LINUS LEWIS MD V76.1 1 SCREENING MAMMOGRAM FOR HIGH-RISK PATIENT 03/26/2009 NELIDA BUTLER, JESSI A V76.11 SCREENING MAMMOGRAM FOR HIGH-RISK PATIENT 03/26/2009 RAQUEL COIL CONNECTOR REPAIRER, CHERYL V76 .11 SCREENING MAMMOGRAM FOR HIGH-RISK PATIENT 03/26/2009 MELODY ALCANTARA PSYD ANN L V76.11 SCREENING MAMMOGRAM FOR HIGH-RISK PATIENT 03/26/2009 RAQUEL COIL CONNECTOR REPAIRER, CHERYL V76 .11 SCREENING MAMMOGRAM FOR HIGH-RISK PATIENT 03/26/2009 LINUS LEWIS MD V76.1 1 SCREENING MAMMOGRAM FOR HIGH-RISK PATIENT 03/26/2009 ROSY COWART APRNINA R V76.11 SCREENING MAMMOGRAM FOR HIGH-RISK PATIENT 03/26/2009 NARGIS COIL CONNECTOR REPAIRER, TYRELL S V76.11 SCREENING MAMMOGRAM FOR HIGH-RISK PATIENT 03/26/2009 RAQUEL COIL CONNECTOR REPAIRER, CHERYL V76 .11 SCREENING MAMMOGRAM FOR HIGH-RISK PATIENT 03/26/2009 RAQUEL COIL CONNECTOR REPAIRER, CHERYL V76 .11 SCREENING MAMMOGRAM FOR HIGH-RISK PATIENT 03/26/2009 RAQUEL COIL CONNECTOR REPAIRER, CHERYL V76 .11 SCREENING MAMMOGRAM FOR HIGH-RISK PATIENT 03/26/2009 NARGIS COIL CONNECTOR REPAIRER, TYRELL S V76.11 SCREENING MAMMOGRAM FOR HIGH-RISK PATIENT 03/26/2009 RAQUEL COIL CONNECTOR REPAIRER, CHERYL V76 .11 SCREENING MAMMOGRAM FOR HIGH-RISK PATIENT 03/26/2009 MELODY ALCANTARA PSYD ANN L V76.11 SCREENING MAMMOGRAM FOR HIGH-RISK PATIENT 03/26/2009 NARGIS COIL CONNECTOR REPAIRER, TYRELL S V76.11 SCREENING MAMMOGRAM FOR HIGH-RISK PATIENT 03/26/2009 NARGIS COIL CONNECTOR REPAIRER, TYRELL S V76.11 SCREENING MAMMOGRAM FOR HIGH-RISK PATIENT 03/26/2009 RAQUEL COIL CONNECTOR REPAIRER, CHERYL V76 .11 SCREENING MAMMOGRAM FOR HIGH-RISK PATIENT 03/26/2009 SHARON JEFFERSON APRN V76. 11 SCREENING MAMMOGRAM FOR HIGH-RISK PATIENT 03/26/2009 RAQUEL COIL CONNECTOR REPAIRER, CHERYL V76 .11 SCREENING MAMMOGRAM FOR HIGH-RISK PATIENT 03/26/2009 MELODY ALCANTARA PSYD ANN L V76.11 SCREENING MAMMOGRAM FOR HIGH-RISK PATIENT 03/26/2009 MELODY ALCANTARA PSYD ANN L V76.11 SCREENING MAMMOGRAM FOR HIGH-RISK PATIENT 03/27/2009 ALYSON ASHRAF DO V72 .3 GYNECOLOGICAL EXAMINATION 03/27/2009 MELODY ACLANTARA PSYD L V72.3 GYNECOLOGICAL EXAMINATION 03/27/2009 NARGIS BUTLER TYRELL S V72.3 GYNECOLOGICAL EXAMINATION 03/27/2009 KATHRYN BARILLAS APRNNDA S V72.3 GYNECOLOGICAL EXAMINATION 03/27/2009 V72.3 GYNE COLOGICAL EXAMINATION 03/27/2009 MELODY ALCANTARA PSYD L V72.3 GYNECOLOGICAL EXAMINATION 03/27/2009 V72.3 GYNE COLOGICAL EXAMINATION 03/27/2009 V72.3 GYNE COLOGICAL EXAMINATION 03/27/2009 V72.3 GYNE COLOGICAL EXAMINATION 03/27/2009 V72.3 GYNE COLOGICAL EXAMINATION 03/27/2009 V72.3 GYNE COLOGICAL EXAMINATION 03/27/2009 V72.3 GYNE COLOGICAL EXAMINATION 03/27/2009 ALYSON ASHRAF DO V72 .3 GYNECOLOGICAL EXAMINATION 03/27/2009 MELODY ALCANTARA PSYD V72.3 GYNECOLOGICAL EXAMINATION 03/27/2009 GARTON COIL CONNECTOR REPAIRERTESSA Aranda V72.3 GYNECOLOGICAL EXAMINATION 03/27/2009 MELODY ALCANTARA PSYD V72.3 GYNECOLOGICAL EXAMINATION 03/27/2009 BEHZAD COIL CONNECTOR REPAIRERTESSA Aranda V72.3 GYNECOLOGICAL EXAMINATION 03/27/2009 NELIDA COIL CONNECTOR REPAIRER, JESSI A V7 2.3 GYNECOLOGICAL EXAMINATION 03/27/2009 MELODY ALCANTARA PSYD V72.3 GYNECOLOGICAL EXAMINATION 03/27/2009 LINUS LEWIS MD V72.3 GYNECOLOGICAL EXAMINATION 03/27/2009 NELIDA COIL CONNECTOR REPAIRER, JESSI A V7 2.3 GYNECOLOGICAL EXAMINATION 03/27/2009 RAQUEL COIL CONNECTOR REPAIRER, CHERYL V72 .3 GYNECOLOGICAL EXAMINATION 03/27/2009 MELODY ALCANTARA PSYD V72.3 GYNECOLOGICAL EXAMINATION 03/27/2009 RAQUEL COIL CONNECTOR REPAIRER, CHERYL V72 .3 GYNECOLOGICAL EXAMINATION 03/27/2009 LINUS LEWIS MD V72.3 GYNECOLOGICAL EXAMINATION 03/27/2009 SOFYA COIL CONNECTOR REPAIRER, SELMA R V72.3 GYNECOLOGICAL EXAMINATION 03/27/2009 NARGIS COIL CONNECTOR REPAIRER, TYRELL S V72.3 GYNECOLOGICAL EXAMINATION 03/27/2009 RAQUEL COIL CONNECTOR REPAIRER, CHERYL V72 .3 GYNECOLOGICAL EXAMINATION 03/27/2009 RAQUEL COIL CONNECTOR REPAIRER, CHEYRL V72 .3 GYNECOLOGICAL EXAMINATION 03/27/2009 RAQUEL COIL CONNECTOR REPAIRER, CHERYL V72 .3 GYNECOLOGICAL EXAMINATION 03/27/2009 NARGIS COIL CONNECTOR REPAIRER, TYRELL S V72.3 GYNECOLOGICAL EXAMINATION 03/27/2009 RAQUEL COIL CONNECTOR REPAIRER, CHERYL V72 .3 GYNECOLOGICAL EXAMINATION 03/27/2009 MELODY ALCANTARA PSYD V72.3 GYNECOLOGICAL EXAMINATION 03/27/2009 NARGIS COIL CONNECTOR REPAIRER, TYRELL S V72.3 GYNECOLOGICAL EXAMINATION 03/27/2009 NARGIS LUKEKATHRYNTYRELL S V72.3 GYNECOLOGICAL EXAMINATION 03/27/2009 RAQUEL COIL CONNECTOR REPAIRER, CHERYL V72 .3 GYNECOLOGICAL EXAMINATION 03/27/2009 SHARON JEFFERSON APRN V72. 3 GYNECOLOGICAL EXAMINATION 03/27/2009 RAQUEL LUKE, CHERYL V72 .3 GYNECOLOGICAL EXAMINATION 03/27/2009 MELODY ALCANTARA PSYD L V72.3 GYNECOLOGICAL EXAMINATION 03/27/2009 MELODY ALCANTARA PSYD L V72.3 GYNECOLOGICAL EXAMINATION 04/03/2009 ALYSON ASHRAF DO F 793 .80 UNSPECIFIED ABNORMAL MAMMOGRAM 04/03/2009 MELODY ALCANTARA PSYD L 793.80 UNSPECIFIED ABNORMAL MAMMOGRAM 04/03/2009 NARGIS BOWLESNKATHRYNTYRELL S 793.80 UNSPECIFIED ABNORMAL MAMMOGRAM 04/03/2009 NARGIS BOWLESNKATHRYNTYRELL S 793.80 UNSPECIFIED ABNORMAL MAMMOGRAM 04/03/2009 793.80 UNS PECIFIED ABNORMAL MAMMOGRAM 04/03/2009 MELODY ALCANTARA PSYD L 793.80 UNSPECIFIED ABNORMAL MAMMOGRAM 04/03/2009 793.80 UNS PECIFIED ABNORMAL MAMMOGRAM 04/03/2009 793.80 UNS PECIFIED ABNORMAL MAMMOGRAM 04/03/2009 793.80 UNS PECIFIED ABNORMAL MAMMOGRAM 04/03/2009 793.80 UNS PECIFIED ABNORMAL MAMMOGRAM 04/03/2009 793.80 UNS PECIFIED ABNORMAL MAMMOGRAM 04/03/2009 793.80 UNS PECIFIED ABNORMAL MAMMOGRAM 04/03/2009 ALYSON ASHRAF DO F 793 .80 UNSPECIFIED ABNORMAL MAMMOGRAM 04/03/2009 MELODY ALCANTARA PSYD L 793.80 UNSPECIFIED ABNORMAL MAMMOGRAM 04/03/2009 TESSA WEN APRN 793.80 UNSPECIFIED ABNORMAL MAMMOGRAM 04/03/2009 MELODY ALCANTARA PSYD ANN L 793.80 UNSPECIFIED ABNORMAL MAMMOGRAM 04/03/2009 TESSA WEN APRN D 793.80 UNSPECIFIED ABNORMAL MAMMOGRAM 04/03/2009 JESSI KRAUSE APRN 793.80 UNSPECIFIED ABNORMAL MAMMOGRAM 04/03/2009 MCCLEEARY PSYD, JUSTICE L 793.80 UNSPECIFIED ABNORMAL MAMMOGRAM 04/03/2009 LINUS LEWIS MD 793.8 0 UNSPECIFIED ABNORMAL MAMMOGRAM 04/03/2009 MERYL KRAUSE APRNIDI A 793.80 UNSPECIFIED ABNORMAL MAMMOGRAM 04/03/2009 RAQUEL COIL CONNECTOR REPAIRER, CHERYL 793 .80 UNSPECIFIED ABNORMAL MAMMOGRAM 04/03/2009 MELODY ALCANTARA PSYD ANN L 793.80 UNSPECIFIED ABNORMAL MAMMOGRAM 04/03/2009 RAQUEL COIL CONNECTOR REPAIRER, CHERYL 793 .80 UNSPECIFIED ABNORMAL MAMMOGRAM 04/03/2009 LINUS LEWIS MD 793.8 0 UNSPECIFIED ABNORMAL MAMMOGRAM 04/03/2009 SOFYA BUTLER SELMA R 793.80 UNSPECIFIED ABNORMAL MAMMOGRAM 04/03/2009 NARGIS BUTLER, TYRELL S 793.80 UNSPECIFIED ABNORMAL MAMMOGRAM 04/03/2009 RAQUEL COIL CONNECTOR REPAIRER, CHERYL 793 .80 UNSPECIFIED ABNORMAL MAMMOGRAM 04/03/2009 RAQUEL COIL CONNECTOR REPAIRER, CHERYL 793 .80 UNSPECIFIED ABNORMAL MAMMOGRAM 04/03/2009 RAQUEL COIL CONNECTOR REPAIRER, CHERYL 793 .80 UNSPECIFIED ABNORMAL MAMMOGRAM 04/03/2009 NARGIS APRN, TYRELL S 793.80 UNSPECIFIED ABNORMAL MAMMOGRAM 04/03/2009 RAQUEL COIL CONNECTOR REPAIRER, CHERYL 793 .80 UNSPECIFIED ABNORMAL MAMMOGRAM 04/03/2009 MELODY ALCANTARA PSYD ANN L 793.80 UNSPECIFIED ABNORMAL MAMMOGRAM 04/03/2009 NARGIS COIL CONNECTOR REPAIRER, TYRELL S 793.80 UNSPECIFIED ABNORMAL MAMMOGRAM 04/03/2009 NARGIS BUTLER, TYRELL S 793.80 UNSPECIFIED ABNORMAL MAMMOGRAM 04/03/2009 RAQUEL COIL CONNECTOR REPAIRER, CHERYL 793 .80 UNSPECIFIED ABNORMAL MAMMOGRAM 04/03/2009 RONNY COIL CONNECTOR REPAIRERWOJCIECH ArandaON D 793. 80 UNSPECIFIED ABNORMAL MAMMOGRAM 04/03/2009 RAQUEL COIL CONNECTOR REPAIRER, CHERYL 793 .80 UNSPECIFIED ABNORMAL MAMMOGRAM 04/03/2009 MELODY ALCANTARA PSYD ANN L 793.80 UNSPECIFIED ABNORMAL MAMMOGRAM 04/03/2009 MELODY ALCANTARA PSYD ANN L 793.80 UNSPECIFIED ABNORMAL MAMMOGRAM 04/16/2009 ALYSON ASHRAF DO 296 .60 MO BIPOLAR I MIXED UNSPECIFIED 04/16/2009 MELODY ALCANTARA PSYD L 296.60 MO BIPOLAR I MIXED UNSPECIFIED 04/16/2009 ELPIDIO BARILLAS APRNA S 296.60 MO BIPOLAR I MIXED UNSPECIFIED 04/16/2009 NARGIS BUTLER TYRELL S 296.60 MO BIPOLAR I MIXED UNSPECIFIED 04/16/2009 296.60 MO BIPOLAR I MIXED UNSPECIFIED 04/16/2009 MELODY ALCANTARA PSYD L 296.60 MO BIPOLAR I MIXED UNSPECIFIED 04/16/2009 296.60 MO BIPOLAR I MIXED UNSPECIFIED 04/16/2009 296.60 MO BIPOLAR I MIXED UNSPECIFIED 04/16/2009 296.60 MO BIPOLAR I MIXED UNSPECIFIED 04/16/2009 296.60 MO BIPOLAR I MIXED UNSPECIFIED 04/16/2009 296.60 MO BIPOLAR I MIXED UNSPECIFIED 04/16/2009 296.60 MO BIPOLAR I MIXED UNSPECIFIED 04/16/2009 ALYSON ASHRAF DO 296 .60 MO BIPOLAR I MIXED UNSPECIFIED 04/16/2009 MELODY ALCANTARA PSYD L 296.60 MO BIPOLAR I MIXED UNSPECIFIED 04/16/2009 TESSA WEN APRN D 296.60 MO BIPOLAR I MIXED UNSPECIFIED 04/16/2009 MELODY ALCANTARA PSYD L 296.60 MO BIPOLAR I MIXED UNSPECIFIED 04/16/2009 TESSA WEN APRN D 296.60 MO BIPOLAR I MIXED UNSPECIFIED 04/16/2009 NELIDA BUTLER JESSI A 296.60 MO BIPOLAR I MIXED UNSPECIFIED 04/16/2009 MELODY ALCANTARA PSYD L 296.60 MO BIPOLAR I MIXED UNSPECIFIED 04/16/2009 LINUS LEWIS MD 296.6 0 MO BIPOLAR I MIXED UNSPECIFIED 04/16/2009 NELIDA BUTLER, JESSI A 296.60 MO BIPOLAR I MIXED UNSPECIFIED 04/16/2009 RAQUEL BUTLER CHERYL 296 .60 MO BIPOLAR I MIXED UNSPECIFIED 04/16/2009 MELODY ALCANTARA PSYD L 296.60 MO BIPOLAR I MIXED UNSPECIFIED 04/16/2009 RAQUEL BUTLER CHERYL 296 .60 MO BIPOLAR I MIXED UNSPECIFIED 04/16/2009 LINUS LEWIS MD 296.6 0 MO BIPOLAR I MIXED UNSPECIFIED 04/16/2009 ROSY COWART APRNINA R 296.60 MO BIPOLAR I MIXED UNSPECIFIED 04/16/2009 NARGIS COIL CONNECTOR REPAIRER, TYRELL S 296.60 MO BIPOLAR I MIXED UNSPECIFIED 04/16/2009 RAQUEL COIL CONNECTOR REPAIRER, CHERYL 296 .60 MO BIPOLAR I MIXED UNSPECIFIED 04/16/2009 RAQULE COIL CONNECTOR REPAIRER, CHERYL 296 .60 MO BIPOLAR I MIXED UNSPECIFIED 04/16/2009 RAQEUL COIL CONNECTOR REPAIRER, CHERYL 296 .60 MO BIPOLAR I MIXED UNSPECIFIED 04/16/2009 NARGIS COIL CONNECTOR REPAIRER, TYRELL S 296.60 MO BIPOLAR I MIXED UNSPECIFIED 04/16/2009 RAQUEL COIL CONNECTOR REPAIRER, CHERYL 296 .60 MO BIPOLAR I MIXED UNSPECIFIED 04/16/2009 MELODY ALCANTARA PSYD ANN L 296.60 MO BIPOLAR I MIXED UNSPECIFIED 04/16/2009 NARGIS COIL CONNECTOR REPAIRER, TYRELL S 296.60 MO BIPOLAR I MIXED UNSPECIFIED 04/16/2009 NARGIS COIL CONNECTOR REPAIRER, TYRELL S 296.60 MO BIPOLAR I MIXED UNSPECIFIED 04/16/2009 RAQUEL COIL CONNECTOR REPAIRER, CHERYL 296 .60 MO BIPOLAR I MIXED UNSPECIFIED 04/16/2009 RONNY COIL CONNECTOR REPAIRERWOJCIECHON D 296. 60 MO BIPOLAR I MIXED UNSPECIFIED 04/16/2009 RAQUEL COIL CONNECTOR REPAIRER, CHERYL 296 .60 MO BIPOLAR I MIXED UNSPECIFIED 04/16/2009 MELODY ALCANTARA PSYD L 296.60 MO BIPOLAR I MIXED UNSPECIFIED 04/16/2009 MELODY ALCANTARA PSYD ANN L 296.60 MO BIPOLAR I MIXED UNSPECIFIED 06/25/2009 ALYSON ASHRAF DO 346 .90 MIGRAINE, UNSPECIFIED, WITHOUT MENTION OF INTRACTABLE MIGRAINE WITHOUT MENTION OF STATUS MIGRAINOSUS 06/25/2009 MELODY ALCANTARA PSYD L 346.90 MIGRAINE, UNSPECIFIED, WITHOUT MENTION O F INTRACTABLE MIGRAINE WITHOUT MENTION OF STATUS MIGRAINOSUS 06/25/2009 KATHRYN BARILLAS APRNNDA S 346.90 MIGRAINE, UNSPECIFIED, WITHOUT MENTION O F INTRACTABLE MIGRAINE WITHOUT MENTION OF STATUS MIGRAINOSUS 06/25/2009 NARGIS BOWLESN, TYRELL S 346.90 MIGRAINE, UNSPECIFIED, WITHOUT MENTION O F INTRACTABLE MIGRAINE WITHOUT MENTION OF STATUS MIGRAINOSUS 06/25/2009 346.90 LAUREL TARIK, UNSPECIFIED, WITHOUT MENTION OF INTRACTABLE MIGRAINE WITHOUT MENTION OF STATUS MIGRAINOSUS 06/25/2009 MELODY ALCANTARA PSYD 346.90 MIGRAINE, UNSPECIFIED, WITHOUT MENTION O F INTRACTABLE MIGRAINE WITHOUT MENTION OF STATUS MIGRAINOSUS 06/25/2009 346.90 LAUREL TARIK, UNSPECIFIED, WITHOUT MENTION OF INTRACTABLE MIGRAINE WITHOUT MENTION OF STATUS MIGRAINOSUS 06/25/2009 346.90 LAUREL TARIK, UNSPECIFIED, WITHOUT MENTION OF INTRACTABLE MIGRAINE WITHOUT MENTION OF STATUS MIGRAINOSUS 06/25/2009 346.90 LAUREL TARIK, UNSPECIFIED, WITHOUT MENTION OF INTRACTABLE MIGRAINE WITHOUT MENTION OF STATUS MIGRAINOSUS 06/25/2009 346.90 LAUREL TARIK, UNSPECIFIED, WITHOUT MENTION OF INTRACTABLE MIGRAINE WITHOUT MENTION OF STATUS MIGRAINOSUS 06/25/2009 346.90 LAUREL TARIK, UNSPECIFIED, WITHOUT MENTION OF INTRACTABLE MIGRAINE WITHOUT MENTION OF STATUS MIGRAINOSUS 06/25/2009 346.90 LAUREL TARIK, UNSPECIFIED, WITHOUT MENTION OF INTRACTABLE MIGRAINE WITHOUT MENTION OF STATUS MIGRAINOSUS 06/25/2009 ANDRIY HILL ALYSON F 346 .90 MIGRAINE, UNSPECIFIED, WITHOUT MENTION OF INTRACTABLE MIGRAINE WITHOUT MENTION OF STATUS MIGRAINOSUS 06/25/2009 MELODY ALCANTARA PSYD 346.90 MIGRAINE, UNSPECIFIED, WITHOUT MENTION O F INTRACTABLE MIGRAINE WITHOUT MENTION OF STATUS MIGRAINOSUS 06/25/2009 TESSA WEN APRN 346.90 MIGRAINE, UNSPECIFIED, WITHOUT MENTION O F INTRACTABLE MIGRAINE WITHOUT MENTION OF STATUS MIGRAINOSUS 06/25/2009 MELODY ALCANTARA PSYD 346.90 MIGRAINE, UNSPECIFIED, WITHOUT MENTION O F INTRACTABLE MIGRAINE WITHOUT MENTION OF STATUS MIGRAINOSUS 06/25/2009 TESSA WEN APRN 346.90 MIGRAINE, UNSPECIFIED, WITHOUT MENTION O F INTRACTABLE MIGRAINE WITHOUT MENTION OF STATUS MIGRAINOSUS 06/25/2009 JESSI KRAUSE APRN 346.90 MIGRAINE, UNSPECIFIED, WITHOUT MENTION O F INTRACTABLE MIGRAINE WITHOUT MENTION OF STATUS MIGRAINOSUS 06/25/2009 MELODY ALCANTARA PSYD 346.90 MIGRAINE, UNSPECIFIED, WITHOUT MENTION O F INTRACTABLE MIGRAINE WITHOUT MENTION OF STATUS MIGRAINOSUS 06/25/2009 ILNUS LEWIS MD 346.9 0 MIGRAINE, UNSPECIFIED, WITHOUT MENTION OF INTRACTABLE MIGRAINE WITHOUT MENTION OF STATUS MIGRAINOSUS 06/25/2009 JESSI KRAUSE APRN A 346.90 MIGRAINE, UNSPECIFIED, WITHOUT MENTION O F INTRACTABLE MIGRAINE WITHOUT MENTION OF STATUS MIGRAINOSUS 06/25/2009 RAQUEL COIL CONNECTOR REPAIRER, CHERYL 346 .90 MIGRAINE, UNSPECIFIED, WITHOUT MENTION OF INTRACTABLE MIGRAINE WITHOUT MENTION OF STATUS MIGRAINOSUS 06/25/2009 MELODY ALCANTARA PSYD 346.90 MIGRAINE, UNSPECIFIED, WITHOUT MENTION O F INTRACTABLE MIGRAINE WITHOUT MENTION OF STATUS MIGRAINOSUS 06/25/2009 RAQUEL COIL CONNECTOR REPAIRER, CHERYL 346 .90 MIGRAINE, UNSPECIFIED, WITHOUT MENTION OF INTRACTABLE MIGRAINE WITHOUT MENTION OF STATUS MIGRAINOSUS 06/25/2009 LINUS LEWIS MD 346.9 0 MIGRAINE, UNSPECIFIED, WITHOUT MENTION OF INTRACTABLE MIGRAINE WITHOUT MENTION OF STATUS MIGRAINOSUS 06/25/2009 SELMA COWART APRN 346.90 MIGRAINE, UNSPECIFIED, WITHOUT MENTION O F INTRACTABLE MIGRAINE WITHOUT MENTION OF STATUS MIGRAINOSUS 06/25/2009 NARGIS COIL CONNECTOR REPAIRER, TYRELL S 346.90 MIGRAINE, UNSPECIFIED, WITHOUT MENTION O F INTRACTABLE MIGRAINE WITHOUT MENTION OF STATUS MIGRAINOSUS 06/25/2009 RAQUEL COIL CONNECTOR REPAIRER, CHERYL 346 .90 MIGRAINE, UNSPECIFIED, WITHOUT MENTION OF INTRACTABLE MIGRAINE WITHOUT MENTION OF STATUS MIGRAINOSUS 06/25/2009 RAQUEL COIL CONNECTOR REPAIRER, CHERYL 346 .90 MIGRAINE, UNSPECIFIED, WITHOUT MENTION OF INTRACTABLE MIGRAINE WITHOUT MENTION OF STATUS MIGRAINOSUS 06/25/2009 RAQUEL COIL CONNECTOR REPAIRER, CHERYL 346 .90 MIGRAINE, UNSPECIFIED, WITHOUT MENTION OF INTRACTABLE MIGRAINE WITHOUT MENTION OF STATUS MIGRAINOSUS 06/25/2009 NARGIS COIL CONNECTOR REPAIRER, TYRELL S 346.90 MIGRAINE, UNSPECIFIED, WITHOUT MENTION O F INTRACTABLE MIGRAINE WITHOUT MENTION OF STATUS MIGRAINOSUS 06/25/2009 RAQUEL COIL CONNECTOR REPAIRER, CHERYL 346 .90 MIGRAINE, UNSPECIFIED, WITHOUT MENTION OF INTRACTABLE MIGRAINE WITHOUT MENTION OF STATUS MIGRAINOSUS 06/25/2009 MELODY ALCANTARA PSYD 346.90 MIGRAINE, UNSPECIFIED, WITHOUT MENTION O F INTRACTABLE MIGRAINE WITHOUT MENTION OF STATUS MIGRAINOSUS 06/25/2009 NARGIS COIL CONNECTOR REPAIRER, TYRELL S 346.90 MIGRAINE, UNSPECIFIED, WITHOUT MENTION O F INTRACTABLE MIGRAINE WITHOUT MENTION OF STATUS MIGRAINOSUS 06/25/2009 NARGIS COIL CONNECTOR REPAIRER, TYRELL S 346.90 MIGRAINE, UNSPECIFIED, WITHOUT MENTION O F INTRACTABLE MIGRAINE WITHOUT MENTION OF STATUS MIGRAINOSUS 06/25/2009 RAQUEL COIL CONNECTOR REPAIRER, CHERYL 346 .90 MIGRAINE, UNSPECIFIED, WITHOUT MENTION OF INTRACTABLE MIGRAINE WITHOUT MENTION OF STATUS MIGRAINOSUS 06/25/2009 SHARON JEFFERSON APRN 346. 90 MIGRAINE, UNSPECIFIED, WITHOUT MENTION OF INTRACTABLE MIGRAINE WITHOUT MENTION OF STATUS MIGRAINOSUS 06/25/2009 CHERYL GARCÍA APRN 346 .90 MIGRAINE, UNSPECIFIED, WITHOUT MENTION OF INTRACTABLE MIGRAINE WITHOUT MENTION OF STATUS MIGRAINOSUS 06/25/2009 MELODY ALCANTARA PSYD 346.90 MIGRAINE, UNSPECIFIED, WITHOUT MENTION O F INTRACTABLE MIGRAINE WITHOUT MENTION OF STATUS MIGRAINOSUS 06/25/2009 MELODY ALCANTARA PSYD L 346.90 MIGRAINE, UNSPECIFIED, WITHOUT MENTION O F INTRACTABLE MIGRAINE WITHOUT MENTION OF STATUS MIGRAINOSUS 08/01/2009 ALYSON ASHRAF DO 682 .2 OTHER CELLULITIS AND ABSCESS, TRUNK 08/01/2009 MELODY ALCANTARA PSYD L 682.2 OTHER CELLULITIS AND ABSCESS, TRUNK 08/01/2009 TYRELL BARILLAS APRN S 682.2 OTHER CELLULITIS AND ABSCESS, TRUNK 08/01/2009 TYRELL BARILLAS APRN S 682.2 OTHER CELLULITIS AND ABSCESS, TRUNK 08/01/2009 682.2 OTHE R CELLULITIS AND ABSCESS, TRUNK 08/01/2009 MELODY ALCANTARA PSYD L 682.2 OTHER CELLULITIS AND ABSCESS, TRUNK 08/01/2009 682.2 OTHE R CELLULITIS AND ABSCESS, TRUNK 08/01/2009 682.2 OTHE R CELLULITIS AND ABSCESS, TRUNK 08/01/2009 682.2 OTHE R CELLULITIS AND ABSCESS, TRUNK 08/01/2009 682.2 OTHE R CELLULITIS AND ABSCESS, TRUNK 08/01/2009 682.2 OTHE R CELLULITIS AND ABSCESS, TRUNK 08/01/2009 682.2 OTHE R CELLULITIS AND ABSCESS, TRUNK 08/01/2009 ALYSON ASHRAF DO F 682 .2 OTHER CELLULITIS AND ABSCESS, TRUNK 08/01/2009 MELODY ALCANTARA PSYD L 682.2 OTHER CELLULITIS AND ABSCESS, TRUNK 08/01/2009 TESSA WEN APRN 682.2 OTHER CELLULITIS AND ABSCESS, TRUNK 08/01/2009 MELODY ALCANTARA PSYD L 682.2 OTHER CELLULITIS AND ABSCESS, TRUNK 08/01/2009 TESSA WEN APRN 682.2 OTHER CELLULITIS AND ABSCESS, TRUNK 08/01/2009 NELIDA COIL CONNECTOR REPAIRER, JESSI A 68 2.2 OTHER CELLULITIS AND ABSCESS, TRUNK 08/01/2009 MELODY ALCANTARA PSYD 682.2 OTHER CELLULITIS AND ABSCESS, TRUNK 08/01/2009 LINUS LEWIS MD 682.2 OTHER CELLULITIS AND ABSCESS, TRUNK 08/01/2009 NELIDA COIL CONNECTOR REPAIRER, JESSI A 68 2.2 OTHER CELLULITIS AND ABSCESS, TRUNK 08/01/2009 RAQUEL COIL CONNECTOR REPAIRER, CHERYL 682 .2 OTHER CELLULITIS AND ABSCESS, TRUNK 08/01/2009 MELODY ALCANTARA PSYD L 682.2 OTHER CELLULITIS AND ABSCESS, TRUNK 08/01/2009 RAQUEL COIL CONNECTOR REPAIRER, CHERYL 682 .2 OTHER CELLULITIS AND ABSCESS, TRUNK 08/01/2009 LINUS LEWIS MD 682.2 OTHER CELLULITIS AND ABSCESS, TRUNK 08/01/2009 SELMA COWART APRN R 682.2 OTHER CELLULITIS AND ABSCESS, TRUNK 08/01/2009 NARGIS COIL CONNECTOR REPAIRER, TYRELL S 682.2 OTHER CELLULITIS AND ABSCESS, TRUNK 08/01/2009 RAQUEL COIL CONNECTOR REPAIRER, CHERYL 682 .2 OTHER CELLULITIS AND ABSCESS, TRUNK 08/01/2009 RAQUEL COIL CONNECTOR REPAIRER, CHERYL 682 .2 OTHER CELLULITIS AND ABSCESS, TRUNK 08/01/2009 RAQUEL COIL CONNECTOR REPAIRER, CHERYL 682 .2 OTHER CELLULITIS AND ABSCESS, TRUNK 08/01/2009 NARGIS COIL CONNECTOR REPAIRER, TYRELL S 682.2 OTHER CELLULITIS AND ABSCESS, TRUNK 08/01/2009 RAQUEL COIL CONNECTOR REPAIRER, CHERYL 682 .2 OTHER CELLULITIS AND ABSCESS, TRUNK 08/01/2009 MELODY ALCANTARA PSYD L 682.2 OTHER CELLULITIS AND ABSCESS, TRUNK 08/01/2009 NARGIS COIL CONNECTOR REPAIRER, TYRELL S 682.2 OTHER CELLULITIS AND ABSCESS, TRUNK 08/01/2009 NARGIS COIL CONNECTOR REPAIRER, TYRELL S 682.2 OTHER CELLULITIS AND ABSCESS, TRUNK 08/01/2009 RAQUEL COIL CONNECTOR REPAIRER, CHERYL 682 .2 OTHER CELLULITIS AND ABSCESS, TRUNK 08/01/2009 SHARON JEFFERSON APRN 682. 2 OTHER CELLULITIS AND ABSCESS, TRUNK 08/01/2009 CHERYL GARCÍA APRN 682 .2 OTHER CELLULITIS AND ABSCESS, TRUNK 08/01/2009 MELODY ALCANTARA PSYD 682.2 OTHER CELLULITIS AND ABSCESS, TRUNK 08/01/2009 MELODY ALCANTARA PSYD 682.2 OTHER CELLULITIS AND ABSCESS, TRUNK 08/15/2009 ALYSON ASHRAF DO F 216 .6 BENIGN NEOPLASM OF SKIN OF UPPER LIMB, INCLUDING SHOULDER 08/15/2009 ALYSON ASHRAF DO F 719 .46 PAIN IN JOINT, LOWER LEG 08/15/2009 MELODY ALCANTARA PSYD L 216.6 BENIGN NEOPLASM OF SKIN OF UPPER LIMB, INCLUDING SHOUL DAISY 08/15/2009 MELODY ALCANTARA PSYD 719.46 PAIN IN JOINT, LOWER LEG 08/15/2009 TYRELL BARILLAS APRN S 216.6 BENIGN NEOPLASM OF SKIN OF UPPER LIMB, INCLUDING SHOUL DAISY 08/15/2009 TYRELL BARILLAS APRN S 719.46 PAIN IN JOINT, LOWER LEG 08/15/2009 ELPIDIO BARILLAS APRNA S 216.6 BENIGN NEOPLASM OF SKIN OF UPPER LIMB, INCLUDING SHOUL DAISY 08/15/2009 KATHRYN BARILLAS APRNNDA S 719.46 PAIN IN JOINT, LOWER LEG 08/15/2009 216.6 JOEY GN NEOPLASM OF SKIN OF UPPER LIMB, INCLUDING SHOULDER 08/15/2009 719.46 RICHA N IN JOINT, LOWER LEG 08/15/2009 MELODY ALCANTARA PSYD L 216.6 BENIGN NEOPLASM OF SKIN OF UPPER LIMB, INCLUDING SHOUL DAISY 08/15/2009 MELODY ALCANTARA PSYD 719.46 PAIN IN JOINT, LOWER LEG 08/15/2009 216.6 JOEY GN NEOPLASM OF SKIN OF UPPER LIMB, INCLUDING SHOULDER 08/15/2009 719.46 RICHA N IN JOINT, LOWER LEG 08/15/2009 216.6 JOEY GN NEOPLASM OF SKIN OF UPPER LIMB, INCLUDING SHOULDER 08/15/2009 719.46 RICHA N IN JOINT, LOWER LEG 08/15/2009 216.6 JOEY GN NEOPLASM OF SKIN OF UPPER LIMB, INCLUDING SHOULDER 08/15/2009 719.46 RICHA N IN JOINT, LOWER LEG 08/15/2009 216.6 JOEY GN NEOPLASM OF SKIN OF UPPER LIMB, INCLUDING SHOULDER 08/15/2009 719.46 RICHA N IN JOINT, LOWER LEG 08/15/2009 216.6 JOEY GN NEOPLASM OF SKIN OF UPPER LIMB, INCLUDING SHOULDER 08/15/2009 719.46 RICHA N IN JOINT, LOWER LEG 08/15/2009 216.6 JOEY GN NEOPLASM OF SKIN OF UPPER LIMB, INCLUDING SHOULDER 08/15/2009 719.46 RICHA N IN JOINT, LOWER LEG 08/15/2009 ALYSON ASHRAF DO F 216 .6 BENIGN NEOPLASM OF SKIN OF UPPER LIMB, INCLUDING SHOULDER 08/15/2009 ALYSON ASHRAF DO F 719 .46 PAIN IN JOINT, LOWER LEG 08/15/2009 MELODY ALCANTARA PSYD L 216.6 BENIGN NEOPLASM OF SKIN OF UPPER LIMB, INCLUDING SHOUL DAISY 08/15/2009 MELODY ALCANTARA PSYD 719.46 PAIN IN JOINT, LOWER LEG 08/15/2009 TESSA WEN APRN 216.6 BENIGN NEOPLASM OF SKIN OF UPPER LIMB, INCLUDING SHOUL DAISY 08/15/2009 TESSA WEN APRN 719.46 PAIN IN JOINT, LOWER LEG 08/15/2009 MELODY ALCANTARA PSYD L 216.6 BENIGN NEOPLASM OF SKIN OF UPPER LIMB, INCLUDING SHOUL DAISY 08/15/2009 MELODY ALCANTARA PSYD 719.46 PAIN IN JOINT, LOWER LEG 08/15/2009 TESSA WEN APRN 216.6 BENIGN NEOPLASM OF SKIN OF UPPER LIMB, INCLUDING SHOUL DAISY 08/15/2009 TESSA WEN APRN 719.46 PAIN IN JOINT, LOWER LEG 08/15/2009 JESSI KRAUSE APRN A 21 6.6 BENIGN NEOPLASM OF SKIN OF UPPER LIMB, INCLUDING SHOULDER 08/15/2009 NELIDA BUTLER JESSI A 719.46 PAIN IN JOINT, LOWER LEG 08/15/2009 MELODY ALCANTARA PSYD L 216.6 BENIGN NEOPLASM OF SKIN OF UPPER LIMB, INCLUDING SHOUL DAISY 08/15/2009 MELODY ALCANTARA PSYD 719.46 PAIN IN JOINT, LOWER LEG 08/15/2009 LINUS LEWIS MD 216.6 BENIGN NEOPLASM OF SKIN OF UPPER LIMB, INCLUDING SHOULDER 08/15/2009 LINUS LEWIS MD 719.4 6 PAIN IN JOINT, LOWER LEG 08/15/2009 NELIDA COIL CONNECTOR REPAIRER, JESSI A 21 6.6 BENIGN NEOPLASM OF SKIN OF UPPER LIMB, INCLUDING SHOULDER 08/15/2009 NELIDA COIL CONNECTOR REPAIRER, JESSI A 719.46 PAIN IN JOINT, LOWER LEG 08/15/2009 RAQUEL COIL CONNECTOR REPAIRER, CHERYL 216 .6 BENIGN NEOPLASM OF SKIN OF UPPER LIMB, INCLUDING SHOULDER 08/15/2009 RAQUEL COIL CONNECTOR REPAIRER, CHERYL 719 .46 PAIN IN JOINT, LOWER LEG 08/15/2009 MELODY ALCANTARA PSYD L 216.6 BENIGN NEOPLASM OF SKIN OF UPPER LIMB, INCLUDING SHOUL DAISY 08/15/2009 MELODY ALCANTARA PSYD 719.46 PAIN IN JOINT, LOWER LEG 08/15/2009 RAQUEL COIL CONNECTOR REPAIRER, CHERYL 216 .6 BENIGN NEOPLASM OF SKIN OF UPPER LIMB, INCLUDING SHOULDER 08/15/2009 RAQUEL COIL CONNECTOR REPAIRER, CHERYL 719 .46 PAIN IN JOINT, LOWER LEG 08/15/2009 LINUS LEWIS MD 216.6 BENIGN NEOPLASM OF SKIN OF UPPER LIMB, INCLUDING SHOULDER 08/15/2009 LINUS LEWIS MD 719.4 6 PAIN IN JOINT, LOWER LEG 08/15/2009 SOFYA COIL CONNECTOR REPAIRER, SELMA R 216.6 BENIGN NEOPLASM OF SKIN OF UPPER LIMB, INCLUDING SHOUL DAISY 08/15/2009 SOFYA COIL CONNECTOR REPAIRER, SELMA R 719.46 PAIN IN JOINT, LOWER LEG 08/15/2009 NARGIS COIL CONNECTOR REPAIRER, TYRELL S 216.6 BENIGN NEOPLASM OF SKIN OF UPPER LIMB, INCLUDING SHOUL DAISY 08/15/2009 NARGIS COIL CONNECTOR REPAIRER, TYRELL S 719.46 PAIN IN JOINT, LOWER LEG 08/15/2009 RAQUEL COIL CONNECTOR REPAIRER, CHERYL 216 .6 BENIGN NEOPLASM OF SKIN OF UPPER LIMB, INCLUDING SHOULDER 08/15/2009 RAQUEL COIL CONNECTOR REPAIRER, CHERYL 719 .46 PAIN IN JOINT, LOWER LEG 08/15/2009 RAQUEL COIL CONNECTOR REPAIRER, CHERYL 216 .6 BENIGN NEOPLASM OF SKIN OF UPPER LIMB, INCLUDING SHOULDER 08/15/2009 RAQUEL COIL CONNECTOR REPAIRER, CHERYL 719 .46 PAIN IN JOINT, LOWER LEG 08/15/2009 RAQUEL COIL CONNECTOR REPAIRER, CHERYL 216 .6 BENIGN NEOPLASM OF SKIN OF UPPER LIMB, INCLUDING SHOULDER 08/15/2009 RAQUEL COIL CONNECTOR REPAIRER, CHERYL 719 .46 PAIN IN JOINT, LOWER LEG 08/15/2009 NARGIS COIL CONNECTOR REPAIRER, TYRELL S 216.6 BENIGN NEOPLASM OF SKIN OF UPPER LIMB, INCLUDING SHOUL DAISY 08/15/2009 NARGIS COIL CONNECTOR REPAIRER, TYRELL S 719.46 PAIN IN JOINT, LOWER LEG 08/15/2009 RAQUEL COIL CONNECTOR REPAIRER, CHERYL 216 .6 BENIGN NEOPLASM OF SKIN OF UPPER LIMB, INCLUDING SHOULDER 08/15/2009 RAQUEL COIL CONNECTOR REPAIRER, CHREYL 719 .46 PAIN IN JOINT, LOWER LEG 08/15/2009 MELODY ALCANTARA PSYD ANN L 216.6 BENIGN NEOPLASM OF SKIN OF UPPER LIMB, INCLUDING SHOUL DAISY 08/15/2009 MELODY ALCANTARA PSYD L 719.46 PAIN IN JOINT, LOWER LEG 08/15/2009 NARGIS COIL CONNECTOR REPAIRER, TYRELL S 216.6 BENIGN NEOPLASM OF SKIN OF UPPER LIMB, INCLUDING SHOUL DAISY 08/15/2009 NARGIS COIL CONNECTOR REPAIRER, TYRELL S 719.46 PAIN IN JOINT, LOWER LEG 08/15/2009 NARGIS COIL CONNECTOR REPAIRER, TYRELL S 216.6 BENIGN NEOPLASM OF SKIN OF UPPER LIMB, INCLUDING SHOUL DAISY 08/15/2009 NARGIS COIL CONNECTOR REPAIRER, TYRELL S 719.46 PAIN IN JOINT, LOWER LEG 08/15/2009 RAQUEL COIL CONNECTOR REPAIRER, CHERYL 216 .6 BENIGN NEOPLASM OF SKIN OF UPPER LIMB, INCLUDING SHOULDER 08/15/2009 RAQUEL COIL CONNECTOR REPAIRER, CHERYL 719 .46 PAIN IN JOINT, LOWER LEG 08/15/2009 SHARON JEFFERSON APRN 216. 6 BENIGN NEOPLASM OF SKIN OF UPPER LIMB, INCLUDING SHOULDER 08/15/2009 SHARON JEFFERSON APRN 719. 46 PAIN IN JOINT, LOWER LEG 08/15/2009 RAQUEL COIL CONNECTOR REPAIRER, CHERYL 216 .6 BENIGN NEOPLASM OF SKIN OF UPPER LIMB, INCLUDING SHOULDER 08/15/2009 RAQUEL COIL CONNECTOR REPAIRER, CHERYL 719 .46 PAIN IN JOINT, LOWER LEG 08/15/2009 MELODY ALCANTARA PSYD ANN L 216.6 BENIGN NEOPLASM OF SKIN OF UPPER LIMB, INCLUDING SHOUL DAISY 08/15/2009 MELODY ALCANTARA PSYD ANN L 719.46 PAIN IN JOINT, LOWER LEG 08/15/2009 MELODY ALCANTARA PSYD ANN L 216.6 BENIGN NEOPLASM OF SKIN OF UPPER LIMB, INCLUDING SHOUL DAISY 08/15/2009 MELODY ALCANTARA PSYD L 719.46 PAIN IN JOINT, LOWER LEG 10/23/2009 ALYSON ASHRAF DO F 455 .0 INTERNAL HEMORRHOIDS WITHOUT MENTION OF COMPLICATION 10/23/2009 ALYSON ASHRAF DO F 782 .1 RASH AND OTHER NONSPECIFIC SKIN ERUPTION 10/23/2009 MELODY ALCANTARA PSYD L 455.0 INTERNAL HEMORRHOIDS WITHOUT MENTION OF COMPLICATION 10/23/2009 MELODY ALCANTARA PSYD L 782.1 RASH AND OTHER NONSPECIFIC SKIN ERUPTION 10/23/2009 NARGIS COIL CONNECTOR REPAIRER, TYRELL S 455.0 INTERNAL HEMORRHOIDS WITHOUT MENTION OF COMPLICATION 10/23/2009 NARGIS COIL CONNECTOR REPAIRER, TYRELL S 782.1 RASH AND OTHER NONSPECIFIC SKIN ERUPTION 10/23/2009 NARGIS COIL CONNECTOR REPAIRER, TYRELL S 455.0 INTERNAL HEMORRHOIDS WITHOUT MENTION OF COMPLICATION 10/23/2009 NARGIS COIL CONNECTOR REPAIRER, TYRELL S 782.1 RASH AND OTHER NONSPECIFIC SKIN ERUPTION 10/23/2009 455.0 INTE RNAL HEMORRHOIDS WITHOUT MENTION OF COMPLICATION 10/23/2009 782.1 RASH AND OTHER NONSPECIFIC SKIN ERUPTION 10/23/2009 MELODY ALCANTARA PSYD L 455.0 INTERNAL HEMORRHOIDS WITHOUT MENTION OF COMPLICATION 10/23/2009 MELODY ALCANTARA PSYD L 782.1 RASH AND OTHER NONSPECIFIC SKIN ERUPTION 10/23/2009 455.0 INTE RNAL HEMORRHOIDS WITHOUT MENTION OF COMPLICATION 10/23/2009 782.1 RASH AND OTHER NONSPECIFIC SKIN ERUPTION 10/23/2009 455.0 INTE RNAL HEMORRHOIDS WITHOUT MENTION OF COMPLICATION 10/23/2009 782.1 RASH AND OTHER NONSPECIFIC SKIN ERUPTION 10/23/2009 455.0 INTE RNAL HEMORRHOIDS WITHOUT MENTION OF COMPLICATION 10/23/2009 782.1 RASH AND OTHER NONSPECIFIC SKIN ERUPTION 10/23/2009 455.0 INTE RNAL HEMORRHOIDS WITHOUT MENTION OF COMPLICATION 10/23/2009 782.1 RASH AND OTHER NONSPECIFIC SKIN ERUPTION 10/23/2009 455.0 INTE RNAL HEMORRHOIDS WITHOUT MENTION OF COMPLICATION 10/23/2009 782.1 RASH AND OTHER NONSPECIFIC SKIN ERUPTION 10/23/2009 455.0 INTE RNAL HEMORRHOIDS WITHOUT MENTION OF COMPLICATION 10/23/2009 782.1 RASH AND OTHER NONSPECIFIC SKIN ERUPTION 10/23/2009 ALYSON ASHRAF DO F 455 .0 INTERNAL HEMORRHOIDS WITHOUT MENTION OF COMPLICATION 10/23/2009 ANDRIY DO, ALYSON F 782 .1 RASH AND OTHER NONSPECIFIC SKIN ERUPTION 10/23/2009 MELODY ALCANTARA PSYD ANN L 455.0 INTERNAL HEMORRHOIDS WITHOUT MENTION OF COMPLICATION 10/23/2009 MELODY ALCANTARA PSYD ANN L 782.1 RASH AND OTHER NONSPECIFIC SKIN ERUPTION 10/23/2009 GARTON COIL CONNECTOR REPAIRER TESSA D 455.0 INTERNAL HEMORRHOIDS WITHOUT MENTION OF COMPLICATION 10/23/2009 GARTON COIL CONNECTOR REPAIRER, TESSA D 782.1 RASH AND OTHER NONSPECIFIC SKIN ERUPTION 10/23/2009 MELODY ALCANTARA PSYD ANN L 455.0 INTERNAL HEMORRHOIDS WITHOUT MENTION OF COMPLICATION 10/23/2009 MELODY ALCANTARA PSYD ANN L 782.1 RASH AND OTHER NONSPECIFIC SKIN ERUPTION 10/23/2009 TREYTON COIL CONNECTOR REPAIRER TESSA D 455.0 INTERNAL HEMORRHOIDS WITHOUT MENTION OF COMPLICATION 10/23/2009 GARTON COIL CONNECTOR REPAIRER TESSA D 782.1 RASH AND OTHER NONSPECIFIC SKIN ERUPTION 10/23/2009 NELIDA BUTLER JESSI A 45 5.0 INTERNAL HEMORRHOIDS WITHOUT MENTION OF COMPLICATION 10/23/2009 NELIDA BUTLER JESSI A 78 2.1 RASH AND OTHER NONSPECIFIC SKIN ERUPTION 10/23/2009 MELODY ALCANTARA PSYD ANN L 455.0 INTERNAL HEMORRHOIDS WITHOUT MENTION OF COMPLICATION 10/23/2009 MELODY ALCANTARA PSYD ANN L 782.1 RASH AND OTHER NONSPECIFIC SKIN ERUPTION 10/23/2009 LINUS LEWIS MD 455.0 INTERNAL HEMORRHOIDS WITHOUT MENTION OF COMPLICATION 10/23/2009 LINUS LEWIS MD 782.1 RASH AND OTHER NONSPECIFIC SKIN ERUPTION 10/23/2009 NELIDARosi BUTLER JESSI A 45 5.0 INTERNAL HEMORRHOIDS WITHOUT MENTION OF COMPLICATION 10/23/2009 NELIDA BUTLER JESSI A 78 2.1 RASH AND OTHER NONSPECIFIC SKIN ERUPTION 10/23/2009 RAQUEL COIL CONNECTOR REPAIRER CHERYL 455 .0 INTERNAL HEMORRHOIDS WITHOUT MENTION OF COMPLICATION 10/23/2009 RAQUEL COIL CONNECTOR REPAIRER CHERYL 782 .1 RASH AND OTHER NONSPECIFIC SKIN ERUPTION 10/23/2009 MELODY ALCANTARA PSYD ANN L 455.0 INTERNAL HEMORRHOIDS WITHOUT MENTION OF COMPLICATION 10/23/2009 MELODY ALCANTARA PSYD ANN L 782.1 RASH AND OTHER NONSPECIFIC SKIN ERUPTION 10/23/2009 RAQUEL COIL CONNECTOR REPAIRER, CHERYL 455 .0 INTERNAL HEMORRHOIDS WITHOUT MENTION OF COMPLICATION 10/23/2009 RAQUEL COIL CONNECTOR REPAIRER, CHERYL 782 .1 RASH AND OTHER NONSPECIFIC SKIN ERUPTION 10/23/2009 LINUS LEWIS MD 455.0 INTERNAL HEMORRHOIDS WITHOUT MENTION OF COMPLICATION 10/23/2009 LINUS LEWIS MD 782.1 RASH AND OTHER NONSPECIFIC SKIN ERUPTION 10/23/2009 SOFYA COIL CONNECTOR REPAIRER, ESLMA R 455.0 INTERNAL HEMORRHOIDS WITHOUT MENTION OF COMPLICATION 10/23/2009 SOFYA COIL CONNECTOR REPAIRER, SELMA R 782.1 RASH AND OTHER NONSPECIFIC SKIN ERUPTION 10/23/2009 NARGIS COIL CONNECTOR REPAIRER, TYRELL S 455.0 INTERNAL HEMORRHOIDS WITHOUT MENTION OF COMPLICATION 10/23/2009 NARGIS COIL CONNECTOR REPAIRER, TYRELL S 782.1 RASH AND OTHER NONSPECIFIC SKIN ERUPTION 10/23/2009 RAQUEL COIL CONNECTOR REPAIRER, CHERYL 455 .0 INTERNAL HEMORRHOIDS WITHOUT MENTION OF COMPLICATION 10/23/2009 RAQUEL COIL CONNECTOR REPAIRER, CHERYL 782 .1 RASH AND OTHER NONSPECIFIC SKIN ERUPTION 10/23/2009 RAQUEL COIL CONNECTOR REPAIRER, CHERYL 455 .0 INTERNAL HEMORRHOIDS WITHOUT MENTION OF COMPLICATION 10/23/2009 RAQUEL COIL CONNECTOR REPAIRER, CHERYL 782 .1 RASH AND OTHER NONSPECIFIC SKIN ERUPTION 10/23/2009 RAQUEL COIL CONNECTOR REPAIRER, CHERYL 455 .0 INTERNAL HEMORRHOIDS WITHOUT MENTION OF COMPLICATION 10/23/2009 RAQUEL COIL CONNECTOR REPAIRER, CHERYL 782 .1 RASH AND OTHER NONSPECIFIC SKIN ERUPTION 10/23/2009 NARGIS COIL CONNECTOR REPAIRER, TYRELL S 455.0 INTERNAL HEMORRHOIDS WITHOUT MENTION OF COMPLICATION 10/23/2009 NARGIS COIL CONNECTOR REPAIRER, TYRELL S 782.1 RASH AND OTHER NONSPECIFIC SKIN ERUPTION 10/23/2009 RAQUEL COIL CONNECTOR REPAIRER, CHERYL 455 .0 INTERNAL HEMORRHOIDS WITHOUT MENTION OF COMPLICATION 10/23/2009 RAQUEL COIL CONNECTOR REPAIRER, CHERYL 782 .1 RASH AND OTHER NONSPECIFIC SKIN ERUPTION 10/23/2009 MELODY ALCANTARA PSYD ANN L 455.0 INTERNAL HEMORRHOIDS WITHOUT MENTION OF COMPLICATION 10/23/2009 MELODY ALCANTARA PSYD ANN L 782.1 RASH AND OTHER NONSPECIFIC SKIN ERUPTION 10/23/2009 NARGIS COIL CONNECTOR REPAIRER, TYRELL S 455.0 INTERNAL HEMORRHOIDS WITHOUT MENTION OF COMPLICATION 10/23/2009 NARGIS COIL CONNECTOR REPAIRER, TYRELL S 782.1 RASH AND OTHER NONSPECIFIC SKIN ERUPTION 10/23/2009 NARGIS COIL CONNECTOR REPAIRER, TYRELL S 455.0 INTERNAL HEMORRHOIDS WITHOUT MENTION OF COMPLICATION 10/23/2009 NARGIS COIL CONNECTOR REPAIRER, TYRELL S 782.1 RASH AND OTHER NONSPECIFIC SKIN ERUPTION 10/23/2009 RAQUEL COIL CONNECTOR REPAIRER, CHERYL 455 .0 INTERNAL HEMORRHOIDS WITHOUT MENTION OF COMPLICATION 10/23/2009 RAQUEL COIL CONNECTOR REPAIRER, CHERYL 782 .1 RASH AND OTHER NONSPECIFIC SKIN ERUPTION 10/23/2009 JEFFERSON COIL CONNECTOR REPAIRER, SHARON D 455. 0 INTERNAL HEMORRHOIDS WITHOUT MENTION OF COMPLICATION 10/23/2009 JEFFERSON COIL CONNECTOR REPAIRERWOJCIECH ArandaON D 782. 1 RASH AND OTHER NONSPECIFIC SKIN ERUPTION 10/23/2009 RAQUEL COIL CONNECTOR REPAIRER, CHERYL 455 .0 INTERNAL HEMORRHOIDS WITHOUT MENTION OF COMPLICATION 10/23/2009 RAQUEL COIL CONNECTOR REPAIRER, CHERYL 782 .1 RASH AND OTHER NONSPECIFIC SKIN ERUPTION 10/23/2009 MELODY ALCANTARA PSYD ANN L 455.0 INTERNAL HEMORRHOIDS WITHOUT MENTION OF COMPLICATION 10/23/2009 MELODY ALCANTARA PSYD ANN L 782.1 RASH AND OTHER NONSPECIFIC SKIN ERUPTION 10/23/2009 MELODY ALCANTARA PSYD ANN L 455.0 INTERNAL HEMORRHOIDS WITHOUT MENTION OF COMPLICATION 10/23/2009 MELODY ALCANTARA PSYD ANN L 782.1 RASH AND OTHER NONSPECIFIC SKIN ERUPTION 03/04/2010 ALYSON AHSRAF DO 691 .8 OTHER ATOPIC DERMATITIS AND RELATED CONDITIONS 03/04/2010 MELODY ALCANTARA PSYD ANN L 691.8 OTHER ATOPIC DERMATITIS AND RELATED CONDITIONS 03/04/2010 ELPIDIO BARILLAS APRNA S 691.8 OTHER ATOPIC DERMATITIS AND RELATED CONDITIONS 03/04/2010 KATHRYN BARILLAS APRNNDA S 691.8 OTHER ATOPIC DERMATITIS AND RELATED CONDITIONS 03/04/2010 691.8 OTHE R ATOPIC DERMATITIS AND RELATED CONDITIONS 03/04/2010 MELODY ALCANTARA PSYD ANN L 691.8 OTHER ATOPIC DERMATITIS AND RELATED CONDITIONS 03/04/2010 691.8 OTHE R ATOPIC DERMATITIS AND RELATED CONDITIONS 03/04/2010 691.8 OTHE R ATOPIC DERMATITIS AND RELATED CONDITIONS 03/04/2010 691.8 OTHE R ATOPIC DERMATITIS AND RELATED CONDITIONS 03/04/2010 691.8 OTHE R ATOPIC DERMATITIS AND RELATED CONDITIONS 03/04/2010 691.8 OTHE R ATOPIC DERMATITIS AND RELATED CONDITIONS 03/04/2010 691.8 OTHE R ATOPIC DERMATITIS AND RELATED CONDITIONS 03/04/2010 ANDRIY HILL ALYSON F 691 .8 OTHER ATOPIC DERMATITIS AND RELATED CONDITIONS 03/04/2010 MELODY ALCANTARA PSYD L 691.8 OTHER ATOPIC DERMATITIS AND RELATED CONDITIONS 03/04/2010 TESSA WEN APRN 691.8 OTHER ATOPIC DERMATITIS AND RELATED CONDITIONS 03/04/2010 MELODY ALCANTARA PSYD ANN L 691.8 OTHER ATOPIC DERMATITIS AND RELATED CONDITIONS 03/04/2010 TESSA WEN APRN 691.8 OTHER ATOPIC DERMATITIS AND RELATED CONDITIONS 03/04/2010 JESSI KRAUSE APRN A 69 1.8 OTHER ATOPIC DERMATITIS AND RELATED CONDITIONS 03/04/2010 MELODY ALCANTARA PSYD L 691.8 OTHER ATOPIC DERMATITIS AND RELATED CONDITIONS 03/04/2010 LINUS LEWIS MD 691.8 OTHER ATOPIC DERMATITIS AND RELATED CONDITIONS 03/04/2010 NELIDA BUTLER JESSI A 69 1.8 OTHER ATOPIC DERMATITIS AND RELATED CONDITIONS 03/04/2010 RAQUEL BUTLER CHERYL 691 .8 OTHER ATOPIC DERMATITIS AND RELATED CONDITIONS 03/04/2010 MELODY ALCANTARA PSYD L 691.8 OTHER ATOPIC DERMATITIS AND RELATED CONDITIONS 03/04/2010 RAQUEL BUTLER CHERYL 691 .8 OTHER ATOPIC DERMATITIS AND RELATED CONDITIONS 03/04/2010 LNIUS LEWIS MD 691.8 OTHER ATOPIC DERMATITIS AND RELATED CONDITIONS 03/04/2010 SELMA COWART APRN R 691.8 OTHER ATOPIC DERMATITIS AND RELATED CONDITIONS 03/04/2010 TYRELL BARILLAS APRN S 691.8 OTHER ATOPIC DERMATITIS AND RELATED CONDITIONS 03/04/2010 RAQUEL BUTLER CHERYL 691 .8 OTHER ATOPIC DERMATITIS AND RELATED CONDITIONS 03/04/2010 RAQUEL BUTLER CHERYL 691 .8 OTHER ATOPIC DERMATITIS AND RELATED CONDITIONS 03/04/2010 RAQUEL BUTLER CHERYL 691 .8 OTHER ATOPIC DERMATITIS AND RELATED CONDITIONS 03/04/2010 NARGIS COIL CONNECTOR REPAIRER, TYRELL S 691.8 OTHER ATOPIC DERMATITIS AND RELATED CONDITIONS 03/04/2010 RAQUEL COIL CONNECTOR REPAIRER, CHERYL 691 .8 OTHER ATOPIC DERMATITIS AND RELATED CONDITIONS 03/04/2010 MELODY ALCANTARA PSYD ANN L 691.8 OTHER ATOPIC DERMATITIS AND RELATED CONDITIONS 03/04/2010 NARGIS COIL CONNECTOR REPAIRER, TYRELL S 691.8 OTHER ATOPIC DERMATITIS AND RELATED CONDITIONS 03/04/2010 NARGIS COIL CONNECTOR REPAIRER, TYRELL S 691.8 OTHER ATOPIC DERMATITIS AND RELATED CONDITIONS 03/04/2010 RAQUEL COIL CONNECTOR REPAIRER CHERYL 691 .8 OTHER ATOPIC DERMATITIS AND RELATED CONDITIONS 03/04/2010 JEFFERSON COIL CONNECTOR REPAIRERSHARON Aranda 691. 8 OTHER ATOPIC DERMATITIS AND RELATED CONDITIONS 03/04/2010 RAQUEL COIL CONNECTOR REPAIRER, CHERYL 691 .8 OTHER ATOPIC DERMATITIS AND RELATED CONDITIONS 03/04/2010 MELDOY ALCANTARA PSYD L 691.8 OTHER ATOPIC DERMATITIS AND RELATED CONDITIONS 03/04/2010 MELODY ALCANTARA PSYD ANN L 691.8 OTHER ATOPIC DERMATITIS AND RELATED CONDITIONS 07/18/2010 WERDER DO, ALYSON F 466 .0 ACUTE BRONCHITIS 07/18/2010 ANDRIY DO, ALYSON F 493 .90 ASTHMA UNSPECIFIED 07/18/2010 LEONARDODER DO, ALYSON F 790 .29 OTHER ABNORMAL GLUCOSE 07/18/2010 MELODY ALCANTARA PSYD L 466.0 ACUTE BRONCHITIS 07/18/2010 MELODY ALCANTARA PSYD ANN L 493.90 ASTHMA UNSPECIFIED 07/18/2010 MELODY ALCANTARA PSYD ANN L 790.29 OTHER ABNORMAL GLUCOSE 07/18/2010 NARGIS BOWLESN, TYRELL S 466.0 ACUTE BRONCHITIS 07/18/2010 NARGIS COIL CONNECTOR REPAIRER, TYRELL S 493.90 ASTHMA UNSPECIFIED 07/18/2010 NARGIS COIL CONNECTOR REPAIRER, TYRELL S 790.29 OTHER ABNORMAL GLUCOSE 07/18/2010 NARGIS COIL CONNECTOR REPAIRER, TYRELL S 466.0 ACUTE BRONCHITIS 07/18/2010 NARGIS COIL CONNECTOR REPAIRER, TYRELL S 493.90 ASTHMA UNSPECIFIED 07/18/2010 NARGIS COIL CONNECTOR REPAIRER, TYRELL S 790.29 OTHER ABNORMAL GLUCOSE 07/18/2010 466.0 ACUT E BRONCHITIS 07/18/2010 493.90 AST HMA UNSPECIFIED 07/18/2010 790.29 OTH ER ABNORMAL GLUCOSE 07/18/2010 MELODY ALCANTARA PSYD L 466.0 ACUTE BRONCHITIS 07/18/2010 MELODY ALCANTARA PSYD L 493.90 ASTHMA UNSPECIFIED 07/18/2010 MELODY ALCANTARA PSYD L 790.29 OTHER ABNORMAL GLUCOSE 07/18/2010 466.0 ACUT E BRONCHITIS 07/18/2010 493.90 AST HMA UNSPECIFIED 07/18/2010 790.29 OTH ER ABNORMAL GLUCOSE 07/18/2010 466.0 ACUT E BRONCHITIS 07/18/2010 493.90 AST HMA UNSPECIFIED 07/18/2010 790.29 OTH ER ABNORMAL GLUCOSE 07/18/2010 466.0 ACUT E BRONCHITIS 07/18/2010 493.90 AST HMA UNSPECIFIED 07/18/2010 790.29 OTH ER ABNORMAL GLUCOSE 07/18/2010 466.0 ACUT E BRONCHITIS 07/18/2010 493.90 AST HMA UNSPECIFIED 07/18/2010 790.29 OTH ER ABNORMAL GLUCOSE 07/18/2010 466.0 ACUT E BRONCHITIS 07/18/2010 493.90 AST HMA UNSPECIFIED 07/18/2010 790.29 OTH ER ABNORMAL GLUCOSE 07/18/2010 466.0 ACUT E BRONCHITIS 07/18/2010 493.90 AST HMA UNSPECIFIED 07/18/2010 790.29 OTH ER ABNORMAL GLUCOSE 07/18/2010 ALYSON ASHRAF DO F 466 .0 ACUTE BRONCHITIS 07/18/2010 ALYSON ASHRAF DO F 493 .90 ASTHMA UNSPECIFIED 07/18/2010 ALYSON ASHRAF DO F 790 .29 OTHER ABNORMAL GLUCOSE 07/18/2010 MELODY ALCANTARA PSYD L 466.0 ACUTE BRONCHITIS 07/18/2010 MELODY ALCANTARA PSYD L 493.90 ASTHMA UNSPECIFIED 07/18/2010 MELODY ALCANTARA PSYD L 790.29 OTHER ABNORMAL GLUCOSE 07/18/2010 TESSA WEN APRN 466.0 ACUTE BRONCHITIS 07/18/2010 TESSA WEN APRN 493.90 ASTHMA UNSPECIFIED 07/18/2010 TESSA WEN APRN 790.29 OTHER ABNORMAL GLUCOSE 07/18/2010 MCCLEEARY PSYD, JUSTIEC L 466.0 ACUTE BRONCHITIS 07/18/2010 MELODY ALCANTARA PSYD L 493.90 ASTHMA UNSPECIFIED 07/18/2010 MELODY ALCANTARA PSYD ANN L 790.29 OTHER ABNORMAL GLUCOSE 07/18/2010 BEHZAD BUTLERTESSA 466.0 ACUTE BRONCHITIS 07/18/2010 BEHZAD BUTLERTESSA 493.90 ASTHMA UNSPECIFIED 07/18/2010 BEHZAD BUTLER TESSA D 790.29 OTHER ABNORMAL GLUCOSE 07/18/2010 NELIDA COIL CONNECTOR REPAIRER, JESSI A 46 6.0 ACUTE BRONCHITIS 07/18/2010 NELIDA COIL CONNECTOR REPAIRER, JESSI A 493.90 ASTHMA UNSPECIFIED 07/18/2010 NELIDA COIL CONNECTOR REPAIRER, JESSI A 790.29 OTHER ABNORMAL GLUCOSE 07/18/2010 MELODY ALCANTARA PSYD L 466.0 ACUTE BRONCHITIS 07/18/2010 MELODY ALCANTARA PSYD L 493.90 ASTHMA UNSPECIFIED 07/18/2010 MELODY ALCANTARA PSYD L 790.29 OTHER ABNORMAL GLUCOSE 07/18/2010 LINUS LEWIS MD 466.0 ACUTE BRONCHITIS 07/18/2010 LINUS LEWIS MD 493.9 0 ASTHMA UNSPECIFIED 07/18/2010 LINUS LEWIS MD 790.2 9 OTHER ABNORMAL GLUCOSE 07/18/2010 NELIDA COIL CONNECTOR REPAIRER, JESSI A 46 6.0 ACUTE BRONCHITIS 07/18/2010 NELIDA COIL CONNECTOR REPAIRER, JESSI A 493.90 ASTHMA UNSPECIFIED 07/18/2010 NELIDA COIL CONNECTOR REPAIRER, JESSI A 790.29 OTHER ABNORMAL GLUCOSE 07/18/2010 RAQUEL COIL CONNECTOR REPAIRER, CHERYL 466 .0 ACUTE BRONCHITIS 07/18/2010 RAQUEL COIL CONNECTOR REPAIRER, CHERYL 493 .90 ASTHMA UNSPECIFIED 07/18/2010 RAQUEL COIL CONNECTOR REPAIRER, CHERYL 790 .29 OTHER ABNORMAL GLUCOSE 07/18/2010 MELODY ALCANTARA PSYD L 466.0 ACUTE BRONCHITIS 07/18/2010 MELODY ALCANTARA PSYD L 493.90 ASTHMA UNSPECIFIED 07/18/2010 MELODY ALCANTARA PSYD ANN L 790.29 OTHER ABNORMAL GLUCOSE 07/18/2010 RAQUEL COIL CONNECTOR REPAIRER, CHERYL 466 .0 ACUTE BRONCHITIS 07/18/2010 RAQUEL COIL CONNECTOR REPAIRER, CHERYL 493 .90 ASTHMA UNSPECIFIED 07/18/2010 RAQUEL COIL CONNECTOR REPAIRER, CHERYL 790 .29 OTHER ABNORMAL GLUCOSE 07/18/2010 LINUS LEWIS MD 466.0 ACUTE BRONCHITIS 07/18/2010 LINUS LEWIS MD 493.9 0 ASTHMA UNSPECIFIED 07/18/2010 LINUS LEWIS MD 790.2 9 OTHER ABNORMAL GLUCOSE 07/18/2010 SOFYA COIL CONNECTOR REPAIRER, SELMA R 466.0 ACUTE BRONCHITIS 07/18/2010 SOFYA COIL CONNECTOR REPAIRER, SELMA R 493.90 ASTHMA UNSPECIFIED 07/18/2010 SOFYA COIL CONNECTOR REPAIRER, SELMA R 790.29 OTHER ABNORMAL GLUCOSE 07/18/2010 NARGIS COIL CONNECTOR REPAIRER, TYRELL S 466.0 ACUTE BRONCHITIS 07/18/2010 NARGIS COIL CONNECTOR REPAIRER, TYRELL S 493.90 ASTHMA UNSPECIFIED 07/18/2010 NARGIS COIL CONNECTOR REPAIRER, TYRELL S 790.29 OTHER ABNORMAL GLUCOSE 07/18/2010 RAQUEL COIL CONNECTOR REPAIRER, CHERYL 466 .0 ACUTE BRONCHITIS 07/18/2010 RAQUEL COIL CONNECTOR REPAIRER, CHERYL 493 .90 ASTHMA UNSPECIFIED 07/18/2010 RAQUEL COIL CONNECTOR REPAIRER, CHERYL 790 .29 OTHER ABNORMAL GLUCOSE 07/18/2010 RAQUEL COIL CONNECTOR REPAIRER, CHERYL 466 .0 ACUTE BRONCHITIS 07/18/2010 RAQUEL COIL CONNECTOR REPAIRER, CHERYL 493 .90 ASTHMA UNSPECIFIED 07/18/2010 RAQUEL COIL CONNECTOR REPAIRER, CHERYL 790 .29 OTHER ABNORMAL GLUCOSE 07/18/2010 RAQUEL COIL CONNECTOR REPAIRER, CHERYL 466 .0 ACUTE BRONCHITIS 07/18/2010 RAQUEL COIL CONNECTOR REPAIRER, CHERYL 493 .90 ASTHMA UNSPECIFIED 07/18/2010 RAQUEL COIL CONNECTOR REPAIRER, CHERYL 790 .29 OTHER ABNORMAL GLUCOSE 07/18/2010 NARGIS COIL CONNECTOR REPAIRER, TYRELL S 466.0 ACUTE BRONCHITIS 07/18/2010 NARGIS COIL CONNECTOR REPAIRER, TYRELL S 493.90 ASTHMA UNSPECIFIED 07/18/2010 NARGIS COIL CONNECTOR REPAIRER, TYRELL S 790.29 OTHER ABNORMAL GLUCOSE 07/18/2010 RAQUEL COIL CONNECTOR REPAIRER, CHERYL 466 .0 ACUTE BRONCHITIS 07/18/2010 RAQUEL COIL CONNECTOR REPAIRER, CHERYL 493 .90 ASTHMA UNSPECIFIED 07/18/2010 RAQUEL COIL CONNECTOR REPAIRER, CHERYL 790 .29 OTHER ABNORMAL GLUCOSE 07/18/2010 MELODY ALCANTARA PSYD ANN L 466.0 ACUTE BRONCHITIS 07/18/2010 MELODY ALCANTARA PSYD ANN L 493.90 ASTHMA UNSPECIFIED 07/18/2010 MELODY ALCANTARA PSYD ANN L 790.29 OTHER ABNORMAL GLUCOSE 07/18/2010 NARGIS COIL CONNECTOR REPAIRER, TYRELL S 466.0 ACUTE BRONCHITIS 07/18/2010 NARGIS COIL CONNECTOR REPAIRER, TYRELL S 493.90 ASTHMA UNSPECIFIED 07/18/2010 NARGIS COIL CONNECTOR REPAIRER, TYRELL S 790.29 OTHER ABNORMAL GLUCOSE 07/18/2010 NARGIS COIL CONNECTOR REPAIRER, TYRELL S 466.0 ACUTE BRONCHITIS 07/18/2010 NARGIS COIL CONNECTOR REPAIRER, TYRELL S 493.90 ASTHMA UNSPECIFIED 07/18/2010 NARGIS COIL CONNECTOR REPAIRER, TYRELL S 790.29 OTHER ABNORMAL GLUCOSE 07/18/2010 RAQUEL COIL CONNECTOR REPAIRER, CHERYL 466 .0 ACUTE BRONCHITIS 07/18/2010 RAQUEL COIL CONNECTOR REPAIRER, CHERYL 493 .90 ASTHMA UNSPECIFIED 07/18/2010 RAQUEL COIL CONNECTOR REPAIRER, CHERYL 790 .29 OTHER ABNORMAL GLUCOSE 07/18/2010 JEFFERSON COIL CONNECTOR REPAIRER, SHARON D 466. 0 ACUTE BRONCHITIS 07/18/2010 JEFFERSON COIL CONNECTOR REPAIRER SHARON D 493. 90 ASTHMA UNSPECIFIED 07/18/2010 JEFFERSON COIL CONNECTOR REPAIRER, SHARON D 790. 29 OTHER ABNORMAL GLUCOSE 07/18/2010 RAQUEL COIL CONNECTOR REPAIRER, CHERYL 466 .0 ACUTE BRONCHITIS 07/18/2010 RAQUEL COIL CONNECTOR REPAIRER, CHERYL 493 .90 ASTHMA UNSPECIFIED 07/18/2010 RAQUEL COIL CONNECTOR REPAIRER, CHERYL 790 .29 OTHER ABNORMAL GLUCOSE 07/18/2010 MELODY ALCANTARA PSYD ANN L 466.0 ACUTE BRONCHITIS 07/18/2010 MELODY ALCANTARA PSYD ANN L 493.90 ASTHMA UNSPECIFIED 07/18/2010 MELODY ALCANTARA PSYD ANN L 790.29 OTHER ABNORMAL GLUCOSE 07/18/2010 MELODY ALCANTARA PSYD ANN L 466.0 ACUTE BRONCHITIS 07/18/2010 MELODY ALCANTARA PSYD ANN L 493.90 ASTHMA UNSPECIFIED 07/18/2010 MELODY ALCANTARA PSYD ANN L 790.29 OTHER ABNORMAL GLUCOSE 08/29/2010 ALYSON ASHRAF DO 786 .2 COUGH 08/29/2010 MELODY ALCANTARA PSYD ANN L 786.2 COUGH 08/29/2010 NARGIS COIL CONNECTOR REPAIRER, TYRELL S 786.2 COUGH 08/29/2010 NARGIS COIL CONNECTOR REPAIRER, TYRELL S 786.2 COUGH 08/29/2010 786.2 COUGH 08/29/2010 MELODY ALCANTARA PSYD ANN L 786.2 COUGH 08/29/2010 786.2 COUGH 08/29/2010 786.2 COUGH 08/29/2010 786.2 COUGH 08/29/2010 786.2 COUGH 08/29/2010 786.2 COUGH 08/29/2010 786.2 COUGH 08/29/2010 ALYSON ASHRAF DO 786 .2 COUGH 08/29/2010 MELODY ALCANTARA PSYD ANN L 786.2 COUGH 08/29/2010 GARTON COIL CONNECTOR REPAIRER, TESSA D 786.2 COUGH 08/29/2010 MELODY ALCANTARA PSYD ANN L 786.2 COUGH 08/29/2010 GARTON COIL CONNECTOR REPAIRER, TESSA D 786.2 COUGH 08/29/2010 NELIDA COIL CONNECTOR REPAIRER, JESSI A 78 6.2 COUGH 08/29/2010 MELODY ALCANTARA PSYD ANN L 786.2 COUGH 08/29/2010 LINUS LEWIS MD 786.2 COUGH 08/29/2010 NELIDA COIL CONNECTOR REPAIRER, JESSI A 78 6.2 COUGH 08/29/2010 RAQUEL COIL CONNECTOR REPAIRER, CHERYL 786 .2 COUGH 08/29/2010 MELODY ALCANTARA PSYD ANN L 786.2 COUGH 08/29/2010 RAQUEL COIL CONNECTOR REPAIRER, CHERYL 786 .2 COUGH 08/29/2010 LINUS LEWIS MD 786.2 COUGH 08/29/2010 SOFYA COIL CONNECTOR REPAIRER, SELMA R 786.2 COUGH 08/29/2010 NARGIS COIL CONNECTOR REPAIRER, TYRELL S 786.2 COUGH 08/29/2010 RAQUEL COIL CONNECTOR REPAIRER, CHERYL 786 .2 COUGH 08/29/2010 RAQUEL COIL CONNECTOR REPAIRER, CHERYL 786 .2 COUGH 08/29/2010 RAQUEL COIL CONNECTOR REPAIRER, CHERYL 786 .2 COUGH 08/29/2010 NARGIS COIL CONNECTOR REPAIRER, TYRELL S 786.2 COUGH 08/29/2010 RAQUEL COIL CONNECTOR REPAIRER, CHERYL 786 .2 COUGH 08/29/2010 MELODY ALCANTARA PSYD ANN L 786.2 COUGH 08/29/2010 NARGIS COIL CONNECTOR REPAIRER, TYRELL S 786.2 COUGH 08/29/2010 NARGIS COIL CONNECTOR REPAIRER, TYRELL S 786.2 COUGH 08/29/2010 RAQUELCHERYL PARRY APRN 786 .2 COUGH 08/29/2010 SHARON JEFFERSON APRN 786. 2 COUGH 08/29/2010 CHERYL GARCÍA APRN 786 .2 COUGH 08/29/2010 MELODY ALCANTARA PSYD 786.2 COUGH 08/29/2010 MELODY ALCANTARA PSYD L 786.2 COUGH 10/28/2010 ALYSON ASHRAF DO 706 .1 OTHER ACNE 10/28/2010 MELODY ALCANTARA PSYD L 706.1 OTHER ACNE 10/28/2010 ELPIDIO BARILLAS APRNA S 706.1 OTHER ACNE 10/28/2010 ELPIDIO BARILLAS APRNA S 706.1 OTHER ACNE 10/28/2010 706.1 OTHE R ACNE 10/28/2010 MELODY ALCANTARA PSYD L 706.1 OTHER ACNE 10/28/2010 706.1 OTHE R ACNE 10/28/2010 706.1 OTHE R ACNE 10/28/2010 706.1 OTHE R ACNE 10/28/2010 706.1 OTHE R ACNE 10/28/2010 706.1 OTHE R ACNE 10/28/2010 706.1 OTHE R ACNE 10/28/2010 ALYSON ASHRAF DO 706 .1 OTHER ACNE 10/28/2010 MELODY ALCANTARA PSYD L 706.1 OTHER ACNE 10/28/2010 TESSA WEN APRN 706.1 OTHER ACNE 10/28/2010 MELODY ALCANTARA PSYD L 706.1 OTHER ACNE 10/28/2010 TESSA WEN APRN 706.1 OTHER ACNE 10/28/2010 NELDIA BUTLER JESSI A 70 6.1 OTHER ACNE 10/28/2010 MELODY ALCANTARA PSYD L 706.1 OTHER ACNE 10/28/2010 LINUS LEWIS MD 706.1 OTHER ACNE 10/28/2010 NELIDA BUTLER JESSI A 70 6.1 OTHER ACNE 10/28/2010 CHERYL GARCÍA APRN 706 .1 OTHER ACNE 10/28/2010 MELODY ALCANTARA PSYD L 706.1 OTHER ACNE 10/28/2010 RAQUEL COIL CONNECTOR REPAIRER, CHERYL 706 .1 OTHER ACNE 10/28/2010 DEBBIE BARRAGAN, LINUS 706.1 OTHER ACNE 10/28/2010 SELMA COWART APRN 706.1 OTHER ACNE 10/28/2010 NARGIS COIL CONNECTOR REPAIRER, TYRELL S 706.1 OTHER ACNE 10/28/2010 RAQUEL COIL CONNECTOR REPAIRER, CHERYL 706 .1 OTHER ACNE 10/28/2010 RAQUEL COIL CONNECTOR REPAIRER, CHERYL 706 .1 OTHER ACNE 10/28/2010 RAQUEL COIL CONNECTOR REPAIRER, CHERYL 706 .1 OTHER ACNE 10/28/2010 NAGRIS COIL CONNECTOR REPAIRER, TYRELL S 706.1 OTHER ACNE 10/28/2010 RAQUEL COIL CONNECTOR REPAIRER, CHERYL 706 .1 OTHER ACNE 10/28/2010 MELODY ALCANTARA PSYD L 706.1 OTHER ACNE 10/28/2010 NARGIS COIL CONNECTOR REPAIRER, TYRELL S 706.1 OTHER ACNE 10/28/2010 NARGIS COIL CONNECTOR REPAIRER, TYRELL S 706.1 OTHER ACNE 10/28/2010 RAQUEL COIL CONNECTOR REPAIRER, CHERYL 706 .1 OTHER ACNE 10/28/2010 RONNY COIL CONNECTOR REPAIRERSHARON Aranda 706. 1 OTHER ACNE 10/28/2010 RAQUEL COIL CONNECTOR REPAIRER, CHERYL 706 .1 OTHER ACNE 10/28/2010 MELODY ALCANTARA PSYD L 706.1 OTHER ACNE 10/28/2010 MELODY ALCANTARA PSYD L 706.1 OTHER ACNE 11/19/2010 ALYSON ASHRAF DO V58 .32 ENCOUNTER FOR REMOVAL OF SUTURES 11/19/2010 MELODY ALCANTARA PSYD L V58.32 ENCOUNTER FOR REMOVAL OF SUTURES 11/19/2010 TYRELL BARILLAS APRN S V58.32 ENCOUNTER FOR REMOVAL OF SUTURES 11/19/2010 TYRELL BARILLAS APRN S V58.32 ENCOUNTER FOR REMOVAL OF SUTURES 11/19/2010 V58.32 ENC OUNTER FOR REMOVAL OF SUTURES 11/19/2010 MELODY ALCANTARA PSYD V58.32 ENCOUNTER FOR REMOVAL OF SUTURES 11/19/2010 V58.32 ENC OUNTER FOR REMOVAL OF SUTURES 11/19/2010 V58.32 ENC OUNTER FOR REMOVAL OF SUTURES 11/19/2010 V58.32 ENC OUNTER FOR REMOVAL OF SUTURES 11/19/2010 V58.32 ENC OUNTER FOR REMOVAL OF SUTURES 11/19/2010 V58.32 ENC OUNTER FOR REMOVAL OF SUTURES 11/19/2010 V58.32 ENC OUNTER FOR REMOVAL OF SUTURES 11/19/2010 ALYSON ASHRAF DO V58 .32 ENCOUNTER FOR REMOVAL OF SUTURES 11/19/2010 MELODY ALCANTARA PSYD V58.32 ENCOUNTER FOR REMOVAL OF SUTURES 11/19/2010 TREYTON TESSA BUTLER V58.32 ENCOUNTER FOR REMOVAL OF SUTURES 11/19/2010 MELODY ALCANTARA PSYD V58.32 ENCOUNTER FOR REMOVAL OF SUTURES 11/19/2010 TREYTON TESSA BUTLER V58.32 ENCOUNTER FOR REMOVAL OF SUTURES 11/19/2010 NELIDAJESSI Aranda APRN A V58.32 ENCOUNTER FOR REMOVAL OF SUTURES 11/19/2010 MELODY ALCANTARA PSYD V58.32 ENCOUNTER FOR REMOVAL OF SUTURES 11/19/2010 LINUS LEWIS MD V58.3 2 ENCOUNTER FOR REMOVAL OF SUTURES 11/19/2010 NELIDARosi UBTLER JESSI A V58.32 ENCOUNTER FOR REMOVAL OF SUTURES 11/19/2010 RAQUEL CHERYL BUTLER V58 .32 ENCOUNTER FOR REMOVAL OF SUTURES 11/19/2010 MELODY ALCANTARA PSYD L V58.32 ENCOUNTER FOR REMOVAL OF SUTURES 11/19/2010 RAQUEL COIL CONNECTOR REPAIRERCHERYL Aranda V58 .32 ENCOUNTER FOR REMOVAL OF SUTURES 11/19/2010 LINUS LEWIS MD V58.3 2 ENCOUNTER FOR REMOVAL OF SUTURES 11/19/2010 ROSY COWART APRNINA R V58.32 ENCOUNTER FOR REMOVAL OF SUTURES 11/19/2010 NARGIS COIL CONNECTOR REPAIRER, TYRELL S V58.32 ENCOUNTER FOR REMOVAL OF SUTURES 11/19/2010 RAQUEL COIL CONNECTOR REPAIRER CHERYL V58 .32 ENCOUNTER FOR REMOVAL OF SUTURES 11/19/2010 RAQUEL COIL CONNECTOR REPAIRER CHERYL V58 .32 ENCOUNTER FOR REMOVAL OF SUTURES 11/19/2010 RAQUEL COIL CONNECTOR REPAIRER CHERYL V58 .32 ENCOUNTER FOR REMOVAL OF SUTURES 11/19/2010 KATHRYN BARILLAS APRNNDA S V58.32 ENCOUNTER FOR REMOVAL OF SUTURES 11/19/2010 CHERYL GARCÍA APRN V58 .32 ENCOUNTER FOR REMOVAL OF SUTURES 11/19/2010 MELODY ALCANTARA PSYD V58.32 ENCOUNTER FOR REMOVAL OF SUTURES 11/19/2010 TYRELL BARILLAS APRN S V58.32 ENCOUNTER FOR REMOVAL OF SUTURES 11/19/2010 TYRELL BARILLAS APRN S V58.32 ENCOUNTER FOR REMOVAL OF SUTURES 11/19/2010 CHERYL GARCÍA APRN V58 .32 ENCOUNTER FOR REMOVAL OF SUTURES 11/19/2010 SHARON JEFFERSON APRN V58. 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[place] 12/05/2010 MELODY ALCANTARA PSYD L 717.7 CHONDROMALACIA OF [place] 12/05/2010 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 [place] 12/05/2010 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 [place] 12/05/2010 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 [place] 12/05/2010 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 [place] 12/05/2010 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 [place] 12/05/2010 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 [place] 12/05/2010 ALYSON ASHRAF DO 717 .7 CHONDROMALACIA OF [place] 12/05/2010 MELODY ALCANTARA PSYD L 717.7 CHONDROMALACIA OF [place] 12/05/2010 TESSA WEN APRN 717.7 CHONDROMALACIA OF [place] 12/05/2010 MELODY ALCANTARA PSYD L 717.7 CHONDROMALACIA OF [place] 12/05/2010 TESSA WEN APRN 717.7 CHONDROMALACIA OF [place] 12/05/2010 NELIDA APRN, JESSI A 71 7.7 CHONDROMALACIA OF [place] 12/05/2010 MELODY ALCANTARA PSYD L 717.7 CHONDROMALACIA OF [place] 12/05/2010 LINUS LEWIS MD 717.7 CHONDROMALACIA OF [place] 12/05/2010 NELIDA APRN, JESSI A 71 7.7 CHONDROMALACIA OF [place] 12/05/2010 RAQUEL COIL CONNECTOR REPAIRER, CHERYL 717 .7 CHONDROMALACIA OF [place] 12/05/2010 MELODY ALCANTARA PSYD L 717.7 CHONDROMALACIA OF [place] 12/05/2010 RAQUEL COIL CONNECTOR REPAIRER, CHERYL 717 .7 CHONDROMALACIA OF [place] 12/05/2010 LINUS LEWIS MD 717.7 CHONDROMALACIA OF [place] 12/05/2010 SELMA COWART APRN R 717.7 CHONDROMALACIA OF [place] 12/05/2010 NARGIS COIL CONNECTOR REPAIRER, TYRELL S 717.7 CHONDROMALACIA OF [place] 12/05/2010 RAQUEL COIL CONNECTOR REPAIRER, CHERYL 717 .7 CHONDROMALACIA OF [place] 12/05/2010 RAQUEL COIL CONNECTOR REPAIRER, CHERYL 717 .7 CHONDROMALACIA OF [place] 12/05/2010 RAQUEL COIL CONNECTOR REPAIRER, CHERYL 717 .7 CHONDROMALACIA OF [place] 12/05/2010 NARGIS COIL CONNECTOR REPAIRER, TYRELL S 717.7 CHONDROMALACIA OF [place] 12/05/2010 RAQUEL COIL CONNECTOR REPAIRER, CHERYL 717 .7 CHONDROMALACIA OF [place] 12/05/2010 MELODY ALCANTARA PSYD ANN L 717.7 CHONDROMALACIA OF [place] 12/05/2010 NARGIS COIL CONNECTOR REPAIRER, TYRELL S 717.7 CHONDROMALACIA OF [place] 12/05/2010 NARGIS COIL CONNECTOR REPAIRER, TYRELL S 717.7 CHONDROMALACIA OF [place] 12/05/2010 RAQUEL COIL CONNECTOR REPAIRER, CHERYL 717 .7 CHONDROMALACIA OF [place] 12/05/2010 SHARON JEFFERSON APRN 717. 7 CHONDROMALACIA OF [place] 12/05/2010 RAQUEL COIL CONNECTOR REPAIRER, CHERYL 717 .7 CHONDROMALACIA OF [place] 12/05/2010 MELODY ALCANTARA PSYD 717.7 CHONDROMALACIA OF [place] 12/05/2010 MELODY ALCANTARA PSYD 717.7 CHONDROMALACIA OF [place] 04/15/2011 ALYSON ASHRAF DO F V04 .81 FLU DX (3 YRS AND ABOVE, IM) 04/15/2011 ALYSON ASHRAF DO F V76 .10 BREAST SCREENING UNSPECIFIED 04/15/2011 MELODY ALCANTARA PSYD L V04.81 FLU DX (3 YRS AND ABOVE, IM) 04/15/2011 MELODY ALCANTARA PSYD L V76.10 BREAST SCREENING UNSPECIFIED 04/15/2011 NARGIS COIL CONNECTOR REPAIRER, TYRELL S V04.81 FLU DX (3 YRS AND ABOVE, IM) 04/15/2011 NARGIS COIL CONNECTOR REPAIRER, TYRELL S V76.10 BREAST SCREENING UNSPECIFIED 04/15/2011 NARGIS COIL CONNECTOR REPAIRER, TYRELL S V04.81 FLU DX (3 YRS AND ABOVE, IM) 04/15/2011 NARGIS COIL CONNECTOR REPAIRER, TYRELL S V76.10 BREAST SCREENING UNSPECIFIED 04/15/2011 V04.81 FLU DX (3 YRS AND ABOVE, IM) 04/15/2011 V76.10 KATHRYN AST SCREENING UNSPECIFIED 04/15/2011 MELODY ALCANTARA PSYD L V04.81 FLU DX (3 YRS AND ABOVE, IM) 04/15/2011 MELODY ALCANTARA PSYD L V76.10 BREAST SCREENING UNSPECIFIED 04/15/2011 V04.81 FLU DX (3 YRS AND ABOVE, IM) 04/15/2011 V76.10 KATHRYN AST SCREENING UNSPECIFIED 04/15/2011 V04.81 FLU DX (3 YRS AND ABOVE, IM) 04/15/2011 V76.10 KATHRYN AST SCREENING UNSPECIFIED 04/15/2011 V04.81 FLU DX (3 YRS AND ABOVE, IM) 04/15/2011 V76.10 KATHRYN AST SCREENING UNSPECIFIED 04/15/2011 V04.81 FLU DX (3 YRS AND ABOVE, IM) 04/15/2011 V76.10 KATHRYN AST SCREENING UNSPECIFIED 04/15/2011 V04.81 FLU DX (3 YRS AND ABOVE, IM) 04/15/2011 V76.10 KATHRYN AST SCREENING UNSPECIFIED 04/15/2011 V04.81 FLU DX (3 YRS AND ABOVE, IM) 04/15/2011 V76.10 KATHRYN AST SCREENING UNSPECIFIED 04/15/2011 ALYSON ASHRAF DO F V04 .81 FLU DX (3 YRS AND ABOVE, IM) 04/15/2011 ALYSON ASHRAF DO F V76 .10 BREAST SCREENING UNSPECIFIED 04/15/2011 MELODY ALCANTARA PSYD L V04.81 FLU DX (3 YRS AND ABOVE, IM) 04/15/2011 MELODY ALCANTARA PSYD L V76.10 BREAST SCREENING UNSPECIFIED 04/15/2011 TESSA WEN APRN V04.81 FLU DX (3 YRS AND ABOVE, IM) 04/15/2011 TESSA WEN APRN D V76.10 BREAST SCREENING UNSPECIFIED 04/15/2011 MELODY ALCANTARA PSYD V04.81 FLU DX (3 YRS AND ABOVE, IM) 04/15/2011 MELODY ALCANTARA PSYD L V76.10 BREAST SCREENING UNSPECIFIED 04/15/2011 TESSA WEN APRN V04.81 FLU DX (3 YRS AND ABOVE, IM) 04/15/2011 TESSA WEN APRN D V76.10 BREAST SCREENING UNSPECIFIED 04/15/2011 JESSI KRAUSE APRN A V04.81 FLU DX (3 YRS AND ABOVE, IM) 04/15/2011 NELIDA BUTLER JESSI A V76.10 BREAST SCREENING UNSPECIFIED 04/15/2011 MELODY ALCANTARA PSYD V04.81 FLU DX (3 YRS AND ABOVE, IM) 04/15/2011 MELODY ALCANTARA PSYD L V76.10 BREAST SCREENING UNSPECIFIED 04/15/2011 LINUS LEWIS MD V04.8 1 FLU DX (3 YRS AND ABOVE, IM) 04/15/2011 LINUS LEWIS MD V76.1 0 BREAST SCREENING UNSPECIFIED 04/15/2011 NELIDA BUTLER JESSI A V04.81 FLU DX (3 YRS AND ABOVE, IM) 04/15/2011 NELIDA BUTLER JESSI A V76.10 BREAST SCREENING UNSPECIFIED 04/15/2011 RAQUEL COIL CONNECTOR REPAIRER, CHERYL V04 .81 FLU DX (3 YRS AND ABOVE, IM) 04/15/2011 RAQUEL COIL CONNECTOR REPAIRER, CHERYL V76 .10 BREAST SCREENING UNSPECIFIED 04/15/2011 MELODY ALCANATRA PSYD L V04.81 FLU DX (3 YRS AND ABOVE, IM) 04/15/2011 MELODY ALCANTARA PSYD L V76.10 BREAST SCREENING UNSPECIFIED 04/15/2011 RAQUEL COIL CONNECTOR REPAIRER, CHERYL V04 .81 FLU DX (3 YRS AND ABOVE, IM) 04/15/2011 RAQUEL COIL CONNECTOR REPAIRER, CHERYL V76 .10 BREAST SCREENING UNSPECIFIED 04/15/2011 LINUS LEWIS MD V04.8 1 FLU DX (3 YRS AND ABOVE, IM) 04/15/2011 LINUS LEWIS MD V76.1 0 BREAST SCREENING UNSPECIFIED 04/15/2011 SOFYA COIL CONNECTOR REPAIRER, SELMA R V04.81 FLU DX (3 YRS AND ABOVE, IM) 04/15/2011 OSFYA COIL CONNECTOR REPAIRER, SELMA R V76.10 BREAST SCREENING UNSPECIFIED 04/15/2011 NARGIS COIL CONNECTOR REPAIRER, TYRELL S V04.81 FLU DX (3 YRS AND ABOVE, IM) 04/15/2011 NARGIS COIL CONNECTOR REPAIRER, TYRELL S V76.10 BREAST SCREENING UNSPECIFIED 04/15/2011 RAQUEL COIL CONNECTOR REPAIRER, CHERYL V04 .81 FLU DX (3 YRS AND ABOVE, IM) 04/15/2011 RAQUEL COIL CONNECTOR REPAIRER, CHERYL V76 .10 BREAST SCREENING UNSPECIFIED 04/15/2011 RAQUEL COIL CONNECTOR REPAIRER, CHERYL V04 .81 FLU DX (3 YRS AND ABOVE, IM) 04/15/2011 RAQUEL COIL CONNECTOR REPAIRER, CHERYL V76 .10 BREAST SCREENING UNSPECIFIED 04/15/2011 RAQUEL COIL CONNECTOR REPAIRER, CHERYL V04 .81 FLU DX (3 YRS AND ABOVE, IM) 04/15/2011 RAQUEL COIL CONNECTOR REPAIRER, CHERYL V76 .10 BREAST SCREENING UNSPECIFIED 04/15/2011 NARGIS COIL CONNECTOR REPAIRER, TYRELL S V04.81 FLU DX (3 YRS AND ABOVE, IM) 04/15/2011 NARGIS COIL CONNECTOR REPAIRER, TYRELL S V76.10 BREAST SCREENING UNSPECIFIED 04/15/2011 RAQUEL COIL CONNECTOR REPAIRER, CHERYL V04 .81 FLU DX (3 YRS AND ABOVE, IM) 04/15/2011 RAQUEL COIL CONNECTOR REPAIRER, CHERYL V76 .10 BREAST SCREENING UNSPECIFIED 04/15/2011 MELODY ALCANTARA PSYD L V04.81 FLU DX (3 YRS AND ABOVE, IM) 04/15/2011 MELODY ALCANTARA PSYD ANN L V76.10 BREAST SCREENING UNSPECIFIED 04/15/2011 NARGIS COIL CONNECTOR REPAIRER, TYRELL S V04.81 FLU DX (3 YRS AND ABOVE, IM) 04/15/2011 NARGIS COIL CONNECTOR REPAIRER, TYRELL S V76.10 BREAST SCREENING UNSPECIFIED 04/15/2011 NARGIS COIL CONNECTOR REPAIRER, TYRELL S V04.81 FLU DX (3 YRS AND ABOVE, IM) 04/15/2011 NARGIS COIL CONNECTOR REPAIRER, TYRELL S V76.10 BREAST SCREENING UNSPECIFIED 04/15/2011 RAQUEL COIL CONNECTOR REPAIRER, CHERYL V04 .81 FLU DX (3 YRS AND ABOVE, IM) 04/15/2011 RAQUEL COIL CONNECTOR REPAIRER, CHERYL V76 .10 BREAST SCREENING UNSPECIFIED 04/15/2011 JEFFERSON COIL CONNECTOR REPAIRER, SHARON D V04. 81 FLU DX (3 YRS AND ABOVE, IM) 04/15/2011 JEFFERSON COIL CONNECTOR REPAIRER, SHARON D V76. 10 BREAST SCREENING UNSPECIFIED 04/15/2011 RAQUEL COIL CONNECTOR REPAIRER, CHERYL V04 .81 FLU DX (3 YRS AND ABOVE, IM) 04/15/2011 RAQUEL COIL CONNECTOR REPAIRER, CHERYL V76 .10 BREAST SCREENING UNSPECIFIED 04/15/2011 MELODY ALCANTARA PSYD ANN L V04.81 FLU DX (3 YRS AND ABOVE, IM) 04/15/2011 MELODY ALCANTARA PSYD ANN L V76.10 BREAST SCREENING UNSPECIFIED 04/15/2011 MELODY ALCANTARA PSYD ANN L V04.81 FLU DX (3 YRS AND ABOVE, IM) 04/15/2011 MELODY ALCANTARA PSYD ANN L V76.10 BREAST SCREENING UNSPECIFIED 07/08/2011 MARIANA ASHRAF DOEN F 599 .0 URINARY TRACT INFECTION 07/08/2011 MARIANA ASHRAF DOEN F 788 .1 pain during urination (dysuria) 07/08/2011 MELODY ALCANTARA PSYD L 599.0 URINARY TRACT INFECTION 07/08/2011 MELODY ALCANTARA PSYD ANN L 788.1 pain during urination (dysuria) 07/08/2011 NARGIS BOWLESN, TYRELL S 599.0 URINARY TRACT INFECTION 07/08/2011 NARGIS BOWLESN, TYRELL S 788.1 pain during urination (dysuria) 07/08/2011 NARGIS COIL CONNECTOR REPAIRER, TYRELL S 599.0 URINARY TRACT INFECTION 07/08/2011 NARGIS COIL CONNECTOR REPAIRER, TYRELL S 788.1 pain during urination (dysuria) 07/08/2011 599.0 URIN DENISE TRACT INFECTION 07/08/2011 788.1 pain during urination (dysuria) 07/08/2011 MELODY ALCANTARA PSYD L 599.0 URINARY TRACT INFECTION 07/08/2011 MELODY ALCANTARA PSYD L 788.1 pain during urination (dysuria) 07/08/2011 599.0 URIN DENISE TRACT INFECTION 07/08/2011 788.1 pain during urination (dysuria) 07/08/2011 599.0 URIN DENISE TRACT INFECTION 07/08/2011 788.1 pain during urination (dysuria) 07/08/2011 599.0 URIN DENISE TRACT INFECTION 07/08/2011 788.1 pain during urination (dysuria) 07/08/2011 599.0 URIN DENISE TRACT INFECTION 07/08/2011 788.1 pain during urination (dysuria) 07/08/2011 599.0 URIN DENISE TRACT INFECTION 07/08/2011 788.1 pain during urination (dysuria) 07/08/2011 599.0 URIN DENISE TRACT INFECTION 07/08/2011 788.1 pain during urination (dysuria) 07/08/2011 ALYSON ASHRAF DO F 599 .0 URINARY TRACT INFECTION 07/08/2011 ALYSON ASHRAF DO F 788 .1 pain during urination (dysuria) 07/08/2011 MELODY ALCANTARA PSYD L 599.0 URINARY TRACT INFECTION 07/08/2011 MELODY ALCANTARA PSYD L 788.1 pain during urination (dysuria) 07/08/2011 TESSA WEN APRN 599.0 URINARY TRACT INFECTION 07/08/2011 TESSA WEN APRN 788.1 pain during urination (dysuria) 07/08/2011 MELODY ALCANTARA PSYD L 599.0 URINARY TRACT INFECTION 07/08/2011 MELODY ALCANTARA PSYD L 788.1 pain during urination (dysuria) 07/08/2011 TESSA WEN APRN D 599.0 URINARY TRACT INFECTION 07/08/2011 GARTESSA WRIGHT APRN D 788.1 pain during urination (dysuria) 07/08/2011 NELIDARosi BUTLER JESSI A 59 9.0 URINARY TRACT INFECTION 07/08/2011 NELIDA APRN, JESSI A 78 8.1 pain during urination (dysuria) 07/08/2011 MELODY ALCANTARA PSYD L 599.0 URINARY TRACT INFECTION 07/08/2011 MELODY ALCANTARA PSYD L 788.1 pain during urination (dysuria) 07/08/2011 LINUS LEWIS MD.0 URINARY TRACT INFECTION 07/08/2011 LINUS LEWIS MD 788.1 pain during urination (dysuria) 07/08/2011 NELIDA APRN, JESSI A 59 9.0 URINARY TRACT INFECTION 07/08/2011 NELIDA APRN, JESSI A 78 8.1 pain during urination (dysuria) 07/08/2011 RAUQEL COIL CONNECTOR REPAIRER, CHERYL 599 .0 URINARY TRACT INFECTION 07/08/2011 RAQUEL COIL CONNECTOR REPAIRER, CHERYL 788 .1 pain during urination (dysuria) 07/08/2011 MELODY ALCANTARA PSYD L 599.0 URINARY TRACT INFECTION 07/08/2011 MELODY ALCANTARA PSYD L 788.1 pain during urination (dysuria) 07/08/2011 RAQUEL COIL CONNECTOR REPAIRER, CHERYL 599 .0 URINARY TRACT INFECTION 07/08/2011 RAQUEL COIL CONNECTOR REPAIRER, CHERYL 788 .1 pain during urination (dysuria) 07/08/2011 LINUS LEWIS MD 599.0 URINARY TRACT INFECTION 07/08/2011 LINUS LEWIS MD 788.1 pain during urination (dysuria) 07/08/2011 ROSY COWART APRNINA R 599.0 URINARY TRACT INFECTION 07/08/2011 SELMA COWART APRN R 788.1 pain during urination (dysuria) 07/08/2011 NARGIS COIL CONNECTOR REPAIRER, TYRELL S 599.0 URINARY TRACT INFECTION 07/08/2011 NARGIS COIL CONNECTOR REPAIRER, TYRELL S 788.1 pain during urination (dysuria) 07/08/2011 RAQUEL COIL CONNECTOR REPAIRER, CHERYL 599 .0 URINARY TRACT INFECTION 07/08/2011 RAQUEL COIL CONNECTOR REPAIRER, CHERYL 788 .1 pain during urination (dysuria) 07/08/2011 RAQUEL COIL CONNECTOR REPAIRER, CHERYL 599 .0 URINARY TRACT INFECTION 07/08/2011 RAQUEL COIL CONNECTOR REPAIRER, CHERYL 788 .1 pain during urination (dysuria) 07/08/2011 RAQUEL COIL CONNECTOR REPAIRER, CHERYL 599 .0 URINARY TRACT INFECTION 07/08/2011 RAQUEL COIL CONNECTOR REPAIRER, CHERYL 788 .1 PAIN DURING URINATION (DYSURIA) 07/08/2011 NARGIS COIL CONNECTOR REPAIRER, TYRELL S 599.0 URINARY TRACT INFECTION 07/08/2011 NARGIS COIL CONNECTOR REPAIRER, TYRELL S 788.1 PAIN DURING URINATION (DYSURIA) 07/08/2011 RAQUEL COIL CONNECTOR REPAIRER, CHERYL 599 .0 URINARY TRACT INFECTION 07/08/2011 RAQUEL COIL CONNECTOR REPAIRER, CHERYL 788 .1 PAIN DURING URINATION (DYSURIA) 07/08/2011 MELODY ALCANTARA PSYD ANN L 599.0 URINARY TRACT INFECTION 07/08/2011 MELODY ALCANTARA PSYD ANN L 788.1 PAIN DURING URINATION (DYSURIA) 07/08/2011 NARGIS COIL CONNECTOR REPAIRER, TYRELL S 599.0 URINARY TRACT INFECTION 07/08/2011 NARGIS COIL CONNECTOR REPAIRER, TYRELL S 788.1 PAIN DURING URINATION (DYSURIA) 07/08/2011 NARGIS COIL CONNECTOR REPAIRER, TYRELL S 599.0 URINARY TRACT INFECTION 07/08/2011 NARGIS COIL CONNECTOR REPAIRER, TYRELL S 788.1 PAIN DURING URINATION (DYSURIA) 07/08/2011 RAQEUL COIL CONNECTOR REPAIRER, CHERYL 599 .0 URINARY TRACT INFECTION 07/08/2011 RAQUEL COIL CONNECTOR REPAIRER, CHERYL 788 .1 PAIN DURING URINATION (DYSURIA) 07/08/2011 SHARON JEFFERSON APRN 599. 0 URINARY TRACT INFECTION 07/08/2011 SHARON JEFFERSON APRN 788. 1 PAIN DURING URINATION (DYSURIA) 07/08/2011 CHERYL GARCÍA APRN 599 .0 URINARY TRACT INFECTION 07/08/2011 RAQUELKYLE PARRY APRNETTE 788 .1 PAIN DURING URINATION (DYSURIA) 07/08/2011 MELODY ALCANTARA PSYD ANN L 599.0 URINARY TRACT INFECTION 07/08/2011 MELODY ALCANTARA PSYD ANN L 788.1 pain during urination (dysuria) 07/08/2011 MELODY ALCANTARA PSYD ANN L 599.0 URINARY TRACT INFECTION 07/08/2011 MELODY ALCANTARA PSYD L 788.1 pain during urination (dysuria) 07/22/2011 ALYSON ASHRAF DO F 695 .89 OTHER SPECIFIED ERYTHEMATOUS CONDITIONS 07/22/2011 ALYSON ASHRAF DO F 783 .1 WEIGHT GAIN ABNORMAL 07/22/2011 MELODY ALCANTARA PSYD L 695.89 OTHER SPECIFIED ERYTHEMATOUS CONDITIONS 07/22/2011 MELODY ALCANTARA PSYD L 783.1 WEIGHT GAIN ABNORMAL 07/22/2011 ELPIDIO BARILLAS APRNA S 695.89 OTHER SPECIFIED ERYTHEMATOUS CONDITIONS 07/22/2011 ELPIDIO BARILLAS APRNA S 783.1 WEIGHT GAIN ABNORMAL 07/22/2011 KATHRYN BARILLAS APRNNDA S 695.89 OTHER SPECIFIED ERYTHEMATOUS CONDITIONS 07/22/2011 TYRELL BARILLAS APRN S 783.1 WEIGHT GAIN ABNORMAL 07/22/2011 695.89 OT ER SPECIFIED ERYTHEMATOUS CONDITIONS 07/22/2011 783.1 WEIG HT GAIN ABNORMAL 07/22/2011 MELODY ALCANTARA PSYD ANN L 695.89 OTHER SPECIFIED ERYTHEMATOUS CONDITIONS 07/22/2011 MELODY ALCANTARA PSYD L 783.1 WEIGHT GAIN ABNORMAL 07/22/2011 695.89 OT ER SPECIFIED ERYTHEMATOUS CONDITIONS 07/22/2011 783.1 WEIG HT GAIN ABNORMAL 07/22/2011 695.89 OT ER SPECIFIED ERYTHEMATOUS CONDITIONS 07/22/2011 783.1 WEIG HT GAIN ABNORMAL 07/22/2011 695.89 OT ER SPECIFIED ERYTHEMATOUS CONDITIONS 07/22/2011 783.1 WEIG HT GAIN ABNORMAL 07/22/2011 695.89 OT ER SPECIFIED ERYTHEMATOUS CONDITIONS 07/22/2011 783.1 WEIG HT GAIN ABNORMAL 07/22/2011 695.89 OT ER SPECIFIED ERYTHEMATOUS CONDITIONS 07/22/2011 783.1 WEIG HT GAIN ABNORMAL 07/22/2011 695.89 OT ER SPECIFIED ERYTHEMATOUS CONDITIONS 07/22/2011 783.1 WEIG HT GAIN ABNORMAL 07/22/2011 ALYSON ASHRAF DO F 695 .89 OTHER SPECIFIED ERYTHEMATOUS CONDITIONS 07/22/2011 ALYSON ASHRAF DO F 783 .1 WEIGHT GAIN ABNORMAL 07/22/2011 MELODY ALCANTARA PSYD L 695.89 OTHER SPECIFIED ERYTHEMATOUS CONDITIONS 07/22/2011 MELODY ALCATNARA PSYD L 783.1 WEIGHT GAIN ABNORMAL 07/22/2011 TESSA WEN APRN 695.89 OTHER SPECIFIED ERYTHEMATOUS CONDITIONS 07/22/2011 TESSA WEN APRN 783.1 WEIGHT GAIN ABNORMAL 07/22/2011 MELODY ALCANTARA PSYD L 695.89 OTHER SPECIFIED ERYTHEMATOUS CONDITIONS 07/22/2011 MELODY ALCANTARA PSYD L 783.1 WEIGHT GAIN ABNORMAL 07/22/2011 TESSA WEN APRN 695.89 OTHER SPECIFIED ERYTHEMATOUS CONDITIONS 07/22/2011 TESSA WEN APRN 783.1 WEIGHT GAIN ABNORMAL 07/22/2011 JESSI KRAUSE APRN A 695.89 OTHER SPECIFIED ERYTHEMATOUS CONDITIONS 07/22/2011 JESSI KRAUSE APRN A 78 3.1 WEIGHT GAIN ABNORMAL 07/22/2011 MELODY ALCANTARA PSYD L 695.89 OTHER SPECIFIED ERYTHEMATOUS CONDITIONS 07/22/2011 MELODY ALCANTARA PSYD L 783.1 WEIGHT GAIN ABNORMAL 07/22/2011 LINUS LEWIS MD 695.8 9 OTHER SPECIFIED ERYTHEMATOUS CONDITIONS 07/22/2011 LINUS LEWIS MD 783.1 WEIGHT GAIN ABNORMAL 07/22/2011 JESSI KRAUSE APRN A 695.89 OTHER SPECIFIED ERYTHEMATOUS CONDITIONS 07/22/2011 JESSI KRAUSE APRN A 78 3.1 WEIGHT GAIN ABNORMAL 07/22/2011 RAQUEL COIL CONNECTOR REPAIRER, CHERYL 695 .89 OTHER SPECIFIED ERYTHEMATOUS CONDITIONS 07/22/2011 RAQUEL COIL CONNECTOR REPAIRER, CHERYL 783 .1 WEIGHT GAIN ABNORMAL 07/22/2011 MELODY ALCANTARA PSYD L 695.89 OTHER SPECIFIED ERYTHEMATOUS CONDITIONS 07/22/2011 MELODY ALCANTARA PSYD L 783.1 WEIGHT GAIN ABNORMAL 07/22/2011 RAQUEL COIL CONNECTOR REPAIRER, CHERYL 695 .89 OTHER SPECIFIED ERYTHEMATOUS CONDITIONS 07/22/2011 RAQUEL COIL CONNECTOR REPAIRER, CHERYL 783 .1 WEIGHT GAIN ABNORMAL 07/22/2011 LNIUS LEWIS MD 695.8 9 OTHER SPECIFIED ERYTHEMATOUS CONDITIONS 07/22/2011 LINUS LEWIS MD 783.1 WEIGHT GAIN ABNORMAL 07/22/2011 SOFYA COIL CONNECTOR REPAIRER, SELMA R 695.89 OTHER SPECIFIED ERYTHEMATOUS CONDITIONS 07/22/2011 SOFYA COIL CONNECTOR REPAIRER, SELMA R 783.1 WEIGHT GAIN ABNORMAL 07/22/2011 NARGIS BUTLER, TYRELL S 695.89 OTHER SPECIFIED ERYTHEMATOUS CONDITIONS 07/22/2011 NARGISYASSINE BOWLESN, TYRELL S 783.1 WEIGHT GAIN ABNORMAL 07/22/2011 RAQUEL COIL CONNECTOR REPAIRER, CHERYL 695 .89 OTHER SPECIFIED ERYTHEMATOUS CONDITIONS 07/22/2011 RAQUEL COIL CONNECTOR REPAIRER, CHERYL 783 .1 WEIGHT GAIN ABNORMAL 07/22/2011 RAQUEL COIL CONNECTOR REPAIRER, CHERYL 695 .89 OTHER SPECIFIED ERYTHEMATOUS CONDITIONS 07/22/2011 RAQUEL COIL CONNECTOR REPAIRER, CHERYL 783 .1 WEIGHT GAIN ABNORMAL 07/22/2011 RAQUEL COIL CONNECTOR REPAIRER, CHERYL 695 .89 OTHER SPECIFIED ERYTHEMATOUS CONDITIONS 07/22/2011 RAQUEL COIL CONNECTOR REPAIRER, CHERYL 783 .1 WEIGHT GAIN ABNORMAL 07/22/2011 NARGIS COIL CONNECTOR REPAIRER, TYRELL S 695.89 OTHER SPECIFIED ERYTHEMATOUS CONDITIONS 07/22/2011 NARGIS COIL CONNECTOR REPAIRER, TYRELL S 783.1 WEIGHT GAIN ABNORMAL 07/22/2011 RAQUEL COIL CONNECTOR REPAIRER, CHERYL 695 .89 OTHER SPECIFIED ERYTHEMATOUS CONDITIONS 07/22/2011 RAQUEL COIL CONNECTOR REPAIRER, CHERYL 783 .1 WEIGHT GAIN ABNORMAL 07/22/2011 MELODY ALCANTARA PSYD ANN L 695.89 OTHER SPECIFIED ERYTHEMATOUS CONDITIONS 07/22/2011 MELODY ALCANTARA PSYD ANN L 783.1 WEIGHT GAIN ABNORMAL 07/22/2011 NARGIS COIL CONNECTOR REPAIRER, TYRELL S 695.89 OTHER SPECIFIED ERYTHEMATOUS CONDITIONS 07/22/2011 NARGIS COIL CONNECTOR REPAIRER, TYRELL S 783.1 WEIGHT GAIN ABNORMAL 07/22/2011 NARGIS COIL CONNECTOR REPAIRER, TYRELL S 695.89 OTHER SPECIFIED ERYTHEMATOUS CONDITIONS 07/22/2011 NARGIS COIL CONNECTOR REPAIRER, TYRELL S 783.1 WEIGHT GAIN ABNORMAL 07/22/2011 RAQUEL COIL CONNECTOR REPAIRER, CHERYL 695 .89 OTHER SPECIFIED ERYTHEMATOUS CONDITIONS 07/22/2011 RAQUEL COIL CONNECTOR REPAIRER, CHERYL 783 .1 WEIGHT GAIN ABNORMAL 07/22/2011 WOJCIECH JEFFERSON APRNON D 695. 89 OTHER SPECIFIED ERYTHEMATOUS CONDITIONS 07/22/2011 SHARON JEFFERSON APRN D 783. 1 WEIGHT GAIN ABNORMAL 07/22/2011 RAQUEL LUKE CHERYL 695 .89 OTHER SPECIFIED ERYTHEMATOUS CONDITIONS 07/22/2011 RAQUEL BUTLER CHERYL 783 .1 WEIGHT GAIN ABNORMAL 07/22/2011 MELODY ALCANTARA PSYD 695.89 OTHER SPECIFIED ERYTHEMATOUS CONDITIONS 07/22/2011 MELODY ALCANTARA PSYD 783.1 WEIGHT GAIN ABNORMAL 07/22/2011 MELODY ALCANTARA PSYD 695.89 OTHER SPECIFIED ERYTHEMATOUS CONDITIONS 07/22/2011 MELODY ALCANTARA PSYD 783.1 WEIGHT GAIN ABNORMAL 07/24/2011 ALYSON ASHRAF DO 250 .00 DIABETES II CONTROLLED (UNCOMPLICATED) 07/24/2011 MELODY ALCANTARA PSYD 250.00 DIABETES II CONTROLLED (UNCOMPLICATED) 07/24/2011 KATHRYN BARILLAS APRNNDA S 250.00 DIABETES II CONTROLLED (UNCOMPLICATED) 07/24/2011 KATHRYN BARILLAS APRNNDA S 250.00 DIABETES II CONTROLLED (UNCOMPLICATED) 07/24/2011 250.00 MICAH BETES II CONTROLLED (UNCOMPLICATED) 07/24/2011 MELODY ALCANTARA PSYD 250.00 DIABETES II CONTROLLED (UNCOMPLICATED) 07/24/2011 250.00 MICAH BETES II CONTROLLED (UNCOMPLICATED) 07/24/2011 250.00 MICAH BETES II CONTROLLED (UNCOMPLICATED) 07/24/2011 250.00 MICAH BETES II CONTROLLED (UNCOMPLICATED) 07/24/2011 250.00 MICAH BETES II CONTROLLED (UNCOMPLICATED) 07/24/2011 250.00 MICAH BETES II CONTROLLED (UNCOMPLICATED) 07/24/2011 250.00 MICAH BETES II CONTROLLED (UNCOMPLICATED) 07/24/2011 ANDRIY HILL ALYSON Fortunato 250 .00 DIABETES II CONTROLLED (UNCOMPLICATED) 07/24/2011 MELODY ALCANTARA PSYD 250.00 DIABETES II CONTROLLED (UNCOMPLICATED) 07/24/2011 TESSA WEN APRN 250.00 DIABETES II CONTROLLED (UNCOMPLICATED) 07/24/2011 MELODY ALCANTARA PSYD 250.00 DIABETES II CONTROLLED (UNCOMPLICATED) 07/24/2011 TESSA WEN APRN D 250.00 DIABETES II CONTROLLED (UNCOMPLICATED) 07/24/2011 NELIDA BUTLER JESSI A 250.00 DIABETES II CONTROLLED (UNCOMPLICATED) 07/24/2011 MELODY ALCANTARA PSYD 250.00 DIABETES II CONTROLLED (UNCOMPLICATED) 07/24/2011 LINUS LEWIS MD 250.0 0 DIABETES II CONTROLLED (UNCOMPLICATED) 07/24/2011 MERYL KRAUSE APRNIDI A 250.00 DIABETES II CONTROLLED (UNCOMPLICATED) 07/24/2011 RAQUEL BUTLER CHERYL 250 .00 DIABETES II CONTROLLED (UNCOMPLICATED) 07/24/2011 MELODY ALCANTARA PSYD 250.00 DIABETES II CONTROLLED (UNCOMPLICATED) 07/24/2011 RAQUEL BUTLER CHERYL 250 .00 DIABETES II CONTROLLED (UNCOMPLICATED) 07/24/2011 LINUS LEWIS MD 250.0 0 DIABETES II CONTROLLED (UNCOMPLICATED) 07/24/2011 SEMLA COWART APRN R 250.00 DIABETES II CONTROLLED (UNCOMPLICATED) 07/24/2011 KATHRYN BARILLAS APRNNDA S 250.00 DIABETES II CONTROLLED (UNCOMPLICATED) 07/24/2011 RAQUEL BUTLER CHERYL 250 .00 DIABETES II CONTROLLED (UNCOMPLICATED) 07/24/2011 RAQUEL BUTLER CHERYL 250 .00 DIABETES II CONTROLLED (UNCOMPLICATED) 07/24/2011 RAQUEL BUTLER CHERYL 250 .00 DIABETES II CONTROLLED (UNCOMPLICATED) 07/24/2011 KATHRYN BARILLAS APRNNDA S 250.00 DIABETES II CONTROLLED (UNCOMPLICATED) 07/24/2011 RAQUEL BUTLER CHERYL 250 .00 DIABETES II CONTROLLED (UNCOMPLICATED) 07/24/2011 MELODY ALCANTARA PSYD 250.00 DIABETES II CONTROLLED (UNCOMPLICATED) 07/24/2011 TYRELL BARILLAS APRN S 250.00 DIABETES II CONTROLLED (UNCOMPLICATED) 07/24/2011 TYRELL BARILLAS APRN S 250.00 DIABETES II CONTROLLED (UNCOMPLICATED) 07/24/2011 RAQUELCHERYL PARRY APRN 250 .00 DIABETES II CONTROLLED (UNCOMPLICATED) 07/24/2011 SHARON JEFFERSON APRN 250. 00 DIABETES II CONTROLLED (UNCOMPLICATED) 07/24/2011 RAQUELCHERYL PARRY APRN 250 .00 DIABETES II CONTROLLED (UNCOMPLICATED) 07/24/2011 MELODY ALCANTARA PSYD 250.00 DIABETES II CONTROLLED (UNCOMPLICATED) 07/24/2011 MELODY ALCANTARA PSYD 250.00 DIABETES II CONTROLLED (UNCOMPLICATED) 10/14/2011 ALYSON ASHRAF DO 309 .81 AN PTSD 10/14/2011 MELODY ALCANTARA PSYD L 309.81 AN PTSD 10/14/2011 TYRELL BARILLAS APRN S 309.81 AN PTSD 10/14/2011 TYRELL BARILLAS APRN S 309.81 AN PTSD 10/14/2011 309.81 AN PTSD 10/14/2011 MELODY ALCANTARA PSYD 309.81 AN PTSD 10/14/2011 309.81 AN PTSD 10/14/2011 309.81 AN PTSD 10/14/2011 309.81 AN PTSD 10/14/2011 309.81 AN PTSD 10/14/2011 309.81 AN PTSD 10/14/2011 309.81 AN PTSD 10/14/2011 ALYSON ASHRAF DO 309 .81 AN PTSD 10/14/2011 MELODY ALCANTARA PSYD 309.81 AN PTSD 10/14/2011 TESSA WEN APRN 309.81 AN PTSD 10/14/2011 MELODY ALCANTARA PSYD 309.81 AN PTSD 10/14/2011 TESSA WEN APRN 309.81 AN PTSD 10/14/2011 JESSI KRAUSE APRN 309.81 AN PTSD 10/14/2011 MELODY ALCANTARA PSYD 309.81 AN PTSD 10/14/2011 LINUS LEWIS MD 309.8 1 AN PTSD 10/14/2011 JESSI KRAUSE APRN A 309.81 AN PTSD 10/14/2011 RAQUEL COIL CONNECTOR REPAIRER, CHERYL 309 .81 AN PTSD 10/14/2011 MELODY ALCANTARA PSYD L 309.81 AN PTSD 10/14/2011 RAQUEL COIL CONNECTOR REPAIRER, CHERYL 309 .81 AN PTSD 10/14/2011 LINUS LEWIS MD 309.8 1 AN PTSD 10/14/2011 SELMA COWART APRN R 309.81 AN PTSD 10/14/2011 NARGIS COIL CONNECTOR REPAIRER, TYRELL S 309.81 AN PTSD 10/14/2011 RAQUEL COIL CONNECTOR REPAIRER, CHERYL 309 .81 AN PTSD 10/14/2011 RAQUEL COIL CONNECTOR REPAIRER, CHERYL 309 .81 AN PTSD 10/14/2011 RAQUEL COIL CONNECTOR REPAIRER, CHERYL 309 .81 AN PTSD 10/14/2011 NARGIS COIL CONNECTOR REPAIRER, TYRELL S 309.81 AN PTSD 10/14/2011 RAQUEL COIL CONNECTOR REPAIRER, CHERYL 309 .81 AN PTSD 10/14/2011 MELODY ALCANTARA PSYD L 309.81 AN PTSD 10/14/2011 NARGIS BTULER TYRELL S 309.81 AN PTSD 10/14/2011 NARGIS COIL CONNECTOR REPAIRER, TYRELL S 309.81 AN PTSD 10/14/2011 RAQUEL COIL CONNECTOR REPAIRER, CHERYL 309 .81 AN PTSD 10/14/2011 SHARON JEFFERSON APRN 309. 81 AN PTSD 10/14/2011 RAQUEL COIL CONNECTOR REPAIRER, CHERYL 309 .81 AN PTSD 10/14/2011 MELODY ALCANTARA PSYD L 309.81 AN PTSD 10/14/2011 MELODY ALCANTARA PSYD L 309.81 AN PTSD 11/27/2011 ALYSON ASHRAF DO 296 .65 MO BIPOLAR I MIXED PART OR UNSPECIFIED REMISSION 11/27/2011 MELODY ALCANTARA PSYD L 296.65 MO BIPOLAR I MIXED PART OR UNSPECIFIED REMISSION 11/27/2011 ELPIDIO BARILLAS APRNA S 296.65 MO BIPOLAR I MIXED PART OR UNSPECIFIED REMISSION 11/27/2011 KATHRYN BARILLAS APRNNDA S 296.65 MO BIPOLAR I MIXED PART OR UNSPECIFIED REMISSION 11/27/2011 296.65 MO BIPOLAR I MIXED PART OR UNSPECIFIED REMISSION 11/27/2011 MELODY ALCANTARA PSYD L 296.65 MO BIPOLAR I MIXED PART OR UNSPECIFIED REMISSION 11/27/2011 296.65 MO BIPOLAR I MIXED PART OR UNSPECIFIED REMISSION 11/27/2011 296.65 MO BIPOLAR I MIXED PART OR UNSPECIFIED REMISSION 11/27/2011 296.65 MO BIPOLAR I MIXED PART OR UNSPECIFIED REMISSION 11/27/2011 296.65 MO BIPOLAR I MIXED PART OR UNSPECIFIED REMISSION 11/27/2011 296.65 MO BIPOLAR I MIXED PART OR UNSPECIFIED REMISSION 11/27/2011 296.65 MO BIPOLAR I MIXED PART OR UNSPECIFIED REMISSION 11/27/2011 ALYSON ASHRAF DO 296 .65 MO BIPOLAR I MIXED PART OR UNSPECIFIED REMISSION 11/27/2011 MELODY ALCANTARA PSYD 296.65 MO BIPOLAR I MIXED PART OR UNSPECIFIED REMISSION 11/27/2011 TESSA WEN APRN 296.65 MO BIPOLAR I MIXED PART OR UNSPECIFIED REMISSION 11/27/2011 MELODY ALCANTARA PSYD 296.65 MO BIPOLAR I MIXED PART OR UNSPECIFIED REMISSION 11/27/2011 TESSA WEN APRN 296.65 MO BIPOLAR I MIXED PART OR UNSPECIFIED REMISSION 11/27/2011 JESSI KRAUSE APRN A 296.65 MO BIPOLAR I MIXED PART OR UNSPECIFIED REMISSION 11/27/2011 MELODY ALCANTARA PSYD 296.65 MO BIPOLAR I MIXED PART OR UNSPECIFIED REMISSION 11/27/2011 LINUS LEWIS MD 296.6 5 MO BIPOLAR I MIXED PART OR UNSPECIFIED REMISSION 11/27/2011 MERYL KRAUSE APRNIDI A 296.65 MO BIPOLAR I MIXED PART OR UNSPECIFIED REMISSION 11/27/2011 CHERYL GARCÍA APRN 296 .65 MO BIPOLAR I MIXED PART OR UNSPECIFIED REMISSION 11/27/2011 MELODY ALCANTARA PSYD 296.65 MO BIPOLAR I MIXED PART OR UNSPECIFIED REMISSION 11/27/2011 CHERYL GARCÍA APRN 296 .65 MO BIPOLAR I MIXED PART OR UNSPECIFIED REMISSION 11/27/2011 LINUS LEWIS MD 296.6 5 MO BIPOLAR I MIXED PART OR UNSPECIFIED REMISSION 11/27/2011 SELMA COWART APRN R 296.65 MO BIPOLAR I MIXED PART OR UNSPECIFIED REMISSION 11/27/2011 TYRELL BARILLAS APRN 296.65 MO BIPOLAR I MIXED PART OR UNSPECIFIED REMISSION 11/27/2011 RAQUEL BUTLER CHERYL 296 .65 MO BIPOLAR I MIXED PART OR UNSPECIFIED REMISSION 11/27/2011 RAQUEL BUTLER CHERYL 296 .65 MO BIPOLAR I MIXED PART OR UNSPECIFIED REMISSION 11/27/2011 RAQUEL BUTLER CHERYL 296 .65 MO BIPOLAR I MIXED PART OR UNSPECIFIED REMISSION 11/27/2011 ELPIDIO BARILLAS APRNA S 296.65 MO BIPOLAR I MIXED PART OR UNSPECIFIED REMISSION 11/27/2011 RAQUEL BUTLER CHERYL 296 .65 MO BIPOLAR I MIXED PART OR UNSPECIFIED REMISSION 11/27/2011 MELODY ALCANTARA PSYD L 296.65 MO BIPOLAR I MIXED PART OR UNSPECIFIED REMISSION 11/27/2011 ELPIDIO BARILLAS APRNA S 296.65 MO BIPOLAR I MIXED PART OR UNSPECIFIED REMISSION 11/27/2011 KATHRYN BARILLAS APRNNDA S 296.65 MO BIPOLAR I MIXED PART OR UNSPECIFIED REMISSION 11/27/2011 RAQUEL BUTLER CHERYL 296 .65 MO BIPOLAR I MIXED PART OR UNSPECIFIED REMISSION 11/27/2011 SHARON JEFFERSON APRN 296. 65 MO BIPOLAR I MIXED PART OR UNSPECIFIED REMISSION 11/27/2011 RAQUEL BUTLER CHERYL 296 .65 MO BIPOLAR I MIXED PART OR UNSPECIFIED REMISSION 11/27/2011 MELODY ALCANTARA PSYD L 296.65 MO BIPOLAR I MIXED PART OR UNSPECIFIED REMISSION 11/27/2011 MELODY ALCANTARA PSYD L 296.65 MO BIPOLAR I MIXED PART OR UNSPECIFIED REMISSION 12/11/2011 ALYSON ASHRAF DO 296 .64 MO BIPOLAR I MIXED W PSYCHOTIC BEHAVIOR 12/11/2011 MELODY ALCANTARA PSYD L 296.64 MO BIPOLAR I MIXED W PSYCHOTIC BEHAVIOR 12/11/2011 ELPIDIO BARILLAS APRNA S 296.64 MO BIPOLAR I MIXED W PSYCHOTIC BEHAVIOR 12/11/2011 ELPIDIO BARILLAS APRNA S 296.64 MO BIPOLAR I MIXED W PSYCHOTIC BEHAVIOR 12/11/2011 296.64 MO BIPOLAR I MIXED W PSYCHOTIC BEHAVIOR 12/11/2011 MELODY ALCANTARA PSYD L 296.64 MO BIPOLAR I MIXED W PSYCHOTIC BEHAVIOR 12/11/2011 296.64 MO BIPOLAR I MIXED W PSYCHOTIC BEHAVIOR 12/11/2011 296.64 MO BIPOLAR I MIXED W PSYCHOTIC BEHAVIOR 12/11/2011 296.64 MO BIPOLAR I MIXED W PSYCHOTIC BEHAVIOR 12/11/2011 296.64 MO BIPOLAR I MIXED W PSYCHOTIC BEHAVIOR 12/11/2011 296.64 MO BIPOLAR I MIXED W PSYCHOTIC BEHAVIOR 12/11/2011 296.64 MO BIPOLAR I MIXED W PSYCHOTIC BEHAVIOR 12/11/2011 ALYSON ASHRAF DO 296 .64 MO BIPOLAR I MIXED W PSYCHOTIC BEHAVIOR 12/11/2011 MELODY ALCANTARA PSYD ANN L 296.64 MO BIPOLAR I MIXED W PSYCHOTIC BEHAVIOR 12/11/2011 TESSA WEN APRN D 296.64 MO BIPOLAR I MIXED W PSYCHOTIC BEHAVIOR 12/11/2011 MELODY ALCANTARA PSYD L 296.64 MO BIPOLAR I MIXED W PSYCHOTIC BEHAVIOR 12/11/2011 T[place] WEN APRN D 296.64 MO BIPOLAR I MIXED W PSYCHOTIC BEHAVIOR 12/11/2011 NELIDA BUTLER JESSI A 296.64 MO BIPOLAR I MIXED W PSYCHOTIC BEHAVIOR 12/11/2011 MELODY ALCANTARA PSYD L 296.64 MO BIPOLAR I MIXED W PSYCHOTIC BEHAVIOR 12/11/2011 LINUS LEWIS MD 296.6 4 MO BIPOLAR I MIXED W PSYCHOTIC BEHAVIOR 12/11/2011 NELIDA BUTLER, JESSI A 296.64 MO BIPOLAR I MIXED W PSYCHOTIC BEHAVIOR 12/11/2011 RAQUEL BUTLER CHERYL 296 .64 MO BIPOLAR I MIXED W PSYCHOTIC BEHAVIOR 12/11/2011 MELODY ALCANTARA PSYD ANN L 296.64 MO BIPOLAR I MIXED W PSYCHOTIC BEHAVIOR 12/11/2011 RAQUEL BUTLER CHERYL 296 .64 MO BIPOLAR I MIXED W PSYCHOTIC BEHAVIOR 12/11/2011 LINUS LEWIS MD 296.6 4 MO BIPOLAR I MIXED W PSYCHOTIC BEHAVIOR 12/11/2011 ROSY COWART APRNINA R 296.64 MO BIPOLAR I MIXED W PSYCHOTIC BEHAVIOR 12/11/2011 KATHRYN BARILLAS APRNNDA S 296.64 MO BIPOLAR I MIXED W PSYCHOTIC BEHAVIOR 12/11/2011 RAQUEL BUTLER CHERYL 296 .64 MO BIPOLAR I MIXED W PSYCHOTIC BEHAVIOR 12/11/2011 RAQUEL BUTLER CHERYL 296 .64 MO BIPOLAR I MIXED W PSYCHOTIC BEHAVIOR 12/11/2011 RAQUEL BUTLER CHERYL 296 .64 MO BIPOLAR I MIXED W PSYCHOTIC BEHAVIOR 12/11/2011 ELPIDIO BARILLAS APRNA S 296.64 MO BIPOLAR I MIXED W PSYCHOTIC BEHAVIOR 12/11/2011 RAQUEL BUTLER CHERYL 296 .64 MO BIPOLAR I MIXED W PSYCHOTIC BEHAVIOR 12/11/2011 MELODY ALCANTARA PSYD 296.64 MO BIPOLAR I MIXED W PSYCHOTIC BEHAVIOR 12/11/2011 ELPIDIO BARILLAS APRNA S 296.64 MO BIPOLAR I MIXED W PSYCHOTIC BEHAVIOR 12/11/2011 ELPIDIO BARILLAS APRNA S 296.64 MO BIPOLAR I MIXED W PSYCHOTIC BEHAVIOR 12/11/2011 RAQUEL BUTLER CHERYL 296 .64 MO BIPOLAR I MIXED W PSYCHOTIC BEHAVIOR 12/11/2011 SHARON JEFFERSON APRN 296. 64 MO BIPOLAR I MIXED W PSYCHOTIC BEHAVIOR 12/11/2011 RAQUEL BUTLER CHERYL 296 .64 MO BIPOLAR I MIXED W PSYCHOTIC BEHAVIOR 12/11/2011 MELODY ALCANTARA PSYD 296.64 MO BIPOLAR I MIXED W PSYCHOTIC BEHAVIOR 12/11/2011 MELODY ALCANTARA PSYD L 296.64 MO BIPOLAR I MIXED W PSYCHOTIC BEHAVIOR 08/01/2012 Ot 599.0 URIN TRACT INFECTION NOS 08/01/2012 Ot 788.1 DYSURIA 08/12/2012 TYRELL BARILLAS APRN 356.9 UNSPECIFIED IDIOPATHIC PERIPHERAL NEUROPATHY 08/12/2012 TYRELL BARILLAS APRN S 356.9 UNSPECIFIED IDIOPATHIC PERIPHERAL NEUROPATHY 08/12/2012 356.9 UNSP ECIFIED IDIOPATHIC PERIPHERAL NEUROPATHY 08/12/2012 MELODY ALCANTARA PSYD 356.9 UNSPECIFIED IDIOPATHIC PERIPHERAL NEUROPATHY 08/12/2012 356.9 UNSP ECIFIED IDIOPATHIC PERIPHERAL NEUROPATHY 08/12/2012 356.9 UNSP ECIFIED IDIOPATHIC PERIPHERAL NEUROPATHY 08/12/2012 356.9 UNSP ECIFIED IDIOPATHIC PERIPHERAL NEUROPATHY 08/12/2012 356.9 UNSP ECIFIED IDIOPATHIC PERIPHERAL NEUROPATHY 08/12/2012 356.9 UNSP ECIFIED IDIOPATHIC PERIPHERAL NEUROPATHY 08/12/2012 356.9 UNSP ECIFIED IDIOPATHIC PERIPHERAL NEUROPATHY 08/12/2012 ALYSON ASHRAF DO 356 .9 UNSPECIFIED IDIOPATHIC PERIPHERAL NEUROPATHY 08/12/2012 MELODY ALCANTARA PSYD 356.9 UNSPECIFIED IDIOPATHIC PERIPHERAL NEUROPATHY 08/12/2012 TESSA WEN APRN 356.9 UNSPECIFIED IDIOPATHIC PERIPHERAL NEUROPATHY 08/12/2012 MELODY ALCANTARA PSYD 356.9 UNSPECIFIED IDIOPATHIC PERIPHERAL NEUROPATHY 08/12/2012 TES[place] WEN APRN 356.9 UNSPECIFIED IDIOPATHIC PERIPHERAL NEUROPATHY 08/12/2012 NELIDA BUTLER, JESSI A 35 6.9 UNSPECIFIED IDIOPATHIC PERIPHERAL NEUROPATHY 08/12/2012 MELODY ALCANTARA PSYD L 356.9 UNSPECIFIED IDIOPATHIC PERIPHERAL NEUROPATHY 08/12/2012 LINUS LEWIS MD 356.9 UNSPECIFIED IDIOPATHIC PERIPHERAL NEUROPATHY 08/12/2012 NELIDA BUTLER, JESSI A 35 6.9 UNSPECIFIED IDIOPATHIC PERIPHERAL NEUROPATHY 08/12/2012 RAQUELSOHAN BUTLER, CHERYL 356 .9 UNSPECIFIED IDIOPATHIC PERIPHERAL NEUROPATHY 08/12/2012 MELODY ALCANTARA PSYD L 356.9 UNSPECIFIED IDIOPATHIC PERIPHERAL NEUROPATHY 08/12/2012 RAQUEL BUTLER, CHERYL 356 .9 UNSPECIFIED IDIOPATHIC PERIPHERAL NEUROPATHY 08/12/2012 LINUS LEWIS MD 356.9 UNSPECIFIED IDIOPATHIC PERIPHERAL NEUROPATHY 08/12/2012 SELMA COWART APRN R 356.9 UNSPECIFIED IDIOPATHIC PERIPHERAL NEUROPATHY 08/12/2012 NARGIS BUTLER TYRELL S 356.9 UNSPECIFIED IDIOPATHIC PERIPHERAL NEUROPATHY 08/12/2012 RAQUEL BUTLER, CHERYL 356 .9 UNSPECIFIED IDIOPATHIC PERIPHERAL NEUROPATHY 08/12/2012 RAQUEL BUTLER CHERYL 356 .9 UNSPECIFIED IDIOPATHIC PERIPHERAL NEUROPATHY 08/12/2012 RAQUEL BUTLER, CHERYL 356 .9 UNSPECIFIED IDIOPATHIC PERIPHERAL NEUROPATHY 08/12/2012 NARGIS BUTLER, TYRELL S 356.9 UNSPECIFIED IDIOPATHIC PERIPHERAL NEUROPATHY 08/12/2012 RAQUEL BUTLER CHERYL 356 .9 UNSPECIFIED IDIOPATHIC PERIPHERAL NEUROPATHY 08/12/2012 MELODY ALCANTARA PSYD ANN L 356.9 UNSPECIFIED IDIOPATHIC PERIPHERAL NEUROPATHY 08/12/2012 NARGIS BUTLER, TYRELL S 356.9 UNSPECIFIED IDIOPATHIC PERIPHERAL NEUROPATHY 08/12/2012 NARGIS BUTLER, TYRELL S 356.9 UNSPECIFIED IDIOPATHIC PERIPHERAL NEUROPATHY 08/12/2012 RAQUEL BUTLER, CHERYL 356 .9 UNSPECIFIED IDIOPATHIC PERIPHERAL NEUROPATHY 08/12/2012 SHARON JEFFERSON APRN 356. 9 UNSPECIFIED IDIOPATHIC PERIPHERAL NEUROPATHY 08/12/2012 RAQUEL COIL CONNECTOR REPAIRER, CHERYL 356 .9 UNSPECIFIED IDIOPATHIC PERIPHERAL NEUROPATHY 08/12/2012 MELODY ALCANTARA PSYD L 356.9 UNSPECIFIED IDIOPATHIC PERIPHERAL NEUROPATHY 10/27/2012 296.52 MO BIPOLAR I DEPRESSED MODERATE 10/27/2012 296.52 MO BIPOLAR I DEPRESSED MODERATE 10/27/2012 296.52 MO BIPOLAR I DEPRESSED MODERATE 10/27/2012 296.52 MO BIPOLAR I DEPRESSED MODERATE 10/27/2012 296.52 MO BIPOLAR I DEPRESSED MODERATE 10/27/2012 296.52 MO BIPOLAR I DEPRESSED MODERATE 10/27/2012 ALYSON ASHRAF DO 296 .52 MO BIPOLAR I DEPRESSED MODERATE 10/27/2012 MELODY ALCANTARA PSYD 296.52 MO BIPOLAR I DEPRESSED MODERATE 10/27/2012 TESSA WEN APRN 296.52 MO BIPOLAR I DEPRESSED MODERATE 10/27/2012 MELODY ALCANTARA PSYD 296.52 MO BIPOLAR I DEPRESSED MODERATE 10/27/2012 TESSA WEN APRN 296.52 MO BIPOLAR I DEPRESSED MODERATE 10/27/2012 NELIDA BUTLER, JESSI A 296.52 MO BIPOLAR I DEPRESSED MODERATE 10/27/2012 MELODY ALCANTARA PSYD 296.52 MO BIPOLAR I DEPRESSED MODERATE 10/27/2012 LINUS LEWIS MD 296.5 2 MO BIPOLAR I DEPRESSED MODERATE 10/27/2012 NELIDA BUTLER, JESSI A 296.52 MO BIPOLAR I DEPRESSED MODERATE 10/27/2012 RAQUEL COIL CONNECTOR REPAIRER, CHERYL 296 .52 MO BIPOLAR I DEPRESSED MODERATE 10/27/2012 MELODY ALCANTARA PSYD L 296.52 MO BIPOLAR I DEPRESSED MODERATE 10/27/2012 RAQUEL COIL CONNECTOR REPAIRER, CHERYL 296 .52 MO BIPOLAR I DEPRESSED MODERATE 10/27/2012 LINUS LEWIS MD 296.5 2 MO BIPOLAR I DEPRESSED MODERATE 10/27/2012 SOFYA BUTLER SELMA R 296.52 MO BIPOLAR I DEPRESSED MODERATE 10/27/2012 NARGIS BUTLER TYRELL S 296.52 MO BIPOLAR I DEPRESSED MODERATE 10/27/2012 RAQUEL COIL CONNECTOR REPAIRER, CHERYL 296 .52 MO BIPOLAR I DEPRESSED MODERATE 10/27/2012 RAQUEL COIL CONNECTOR REPAIRER, CHERYL 296 .52 MO BIPOLAR I DEPRESSED MODERATE 10/27/2012 RAQUEL COIL CONNECTOR REPAIRER, CHERYL 296 .52 MO BIPOLAR I DEPRESSED MODERATE 10/27/2012 NARGIS BUTLER TYRELL S 296.52 MO BIPOLAR I DEPRESSED MODERATE 10/27/2012 RAQUEL COIL CONNECTOR REPAIRER, CHERYL 296 .52 MO BIPOLAR I DEPRESSED MODERATE 10/27/2012 MELODY ALCANTARA PSYD L 296.52 MO BIPOLAR I DEPRESSED MODERATE 10/27/2012 KATHRYN BARILLAS APRNNDA S 296.52 MO BIPOLAR I DEPRESSED MODERATE 10/27/2012 KATHRYN BARILLAS APRNNDA S 296.52 MO BIPOLAR I DEPRESSED MODERATE 10/27/2012 RAQUEL BUTLER CHERYL 296 .52 MO BIPOLAR I DEPRESSED MODERATE 10/27/2012 SHARON JEFFERSON APRN 296. 52 MO BIPOLAR I DEPRESSED MODERATE 10/27/2012 RAQUEL BUTLER CHERYL 296 .52 MO BIPOLAR I DEPRESSED MODERATE 10/27/2012 MELODY ALCANTARA PSYD L 296.52 MO BIPOLAR I DEPRESSED MODERATE 10/28/2012 443.0 RAYN AUD'S SYNDROME 10/28/2012 719.45 RICHA N IN JOINT INVOLVING [employer] AND THIGH 10/28/2012 443.0 RAYN AUD'S SYNDROME 10/28/2012 719.45 RICHA N IN JOINT INVOLVING PELVIC [employer] AND THIGH 10/28/2012 443.0 RAYN AUD'S SYNDROME 10/28/2012 719.45 RICHA N IN JOINT INVOLVING PELVIC [employer]ION AND THIGH 10/28/2012 443.0 RAYN AUD'S SYNDROME 10/28/2012 719.45 RICHA N IN JOINT INVOLVING PELVIC [employer]ION AND THIGH 10/28/2012 443.0 RAYN AUD'S SYNDROME 10/28/2012 719.45 RICHA N IN JOINT INVOLVING PEL[employer]IC [employer] AND THIGH 10/28/2012 443.0 RAYN AUD'S SYNDROME 10/28/2012 719.45 RICHA N IN JOINT INVOLVING PELVIC [employer] AND THIGH 10/28/2012 ALYSON ASHRAF DO 443 .0 RAYNAUD'S SYNDROME 10/28/2012 ALYSON ASHRAF DO 719 .45 PAIN IN JOINT INVOLVING [employer]EL[employer]IC [employer] AND THIGH 10/28/2012 MELODY ALCANTARA PSYD L 443.0 RAYNAUD'S SYNDROME 10/28/2012 MELODY ALCANTARA PSYD L 719.45 PAIN IN JOINT INVOLVING PEL[employer] AND THIGH 10/28/2012 TESSA WEN APRN 443.0 RAYNAUD'S SYNDROME 10/28/2012 TESSA WEN APRN 719.45 PAIN IN JOINT INVOLVING PEL[employer] AND THIGH 10/28/2012 MELODY ALCANTARA PSYD L 443.0 RAYNAUD'S SYNDROME 10/28/2012 MELODY ALCANTARA PSYD L 719.45 PAIN IN JOINT INVOLVING PELVIC [employer] AND THIGH 10/28/2012 TESSA WEN APRN 443.0 RAYNAUD'S SYNDROME 10/28/2012 TESSA WEN APRN 719.45 PAIN IN JOINT INVOLVING PELVIC [employer] AND THIGH 10/28/2012 JESSI KRAUSE APRN A 44 3.0 RAYNAUD'S SYNDROME 10/28/2012 MERYL KRAUSE APRNIDI A 719.45 PAIN IN JOINT INVOLVING P[employer] AND THIGH 10/28/2012 MELODY ALCANTARA PSYD L 443.0 RAYNAUD'S SYNDROME 10/28/2012 MELODY ALCANTARA PSYD 719.45 PAIN IN JOINT INVOLVING PELVIC [employer] AND THIGH 10/28/2012 LINUS LEWIS MD3.0 RAYNAUD'S SYNDROME 10/28/2012 LINUS LEWIS MD.4 5 PAIN IN JOINT INVOLVING PELVIC [employer]ION AND THIGH 10/28/2012 NELIDA BUTLER JESSI A 44 3.0 RAYNAUD'S SYNDROME 10/28/2012 MERYL KRAUSE APRNIDI A 719.45 PAIN IN JOINT INVOLVING PELVIC [employer] AND THIGH 10/28/2012 KYLE GARCÍA APRNETTE 443 .0 RAYNAUD'S SYNDROME 10/28/2012 RAQUEL BUTLER CHERYL 719 .45 PAIN IN JOINT INVOLVING PELVIC [employer] AND THIGH 10/28/2012 MELODY ALCANTARA PSYD L 443.0 RAYNAUD'S SYNDROME 10/28/2012 MELODY ALCANTARA PSYD ANN L 719.45 PAIN IN JOINT INVOLVING PELVIC [employer] AND THIGH 10/28/2012 RAQUELSOHAN BUTLER CHERYL 443 .0 RAYNAUD'S SYNDROME 10/28/2012 RAQUEL BUTLER CHERYL 719 .45 PAIN IN JOINT INVOLVING PELVIC [employer] AND THIGH 10/28/2012 LINUS LEWIS MD3.0 RAYNAUD'S SYNDROME 10/28/2012 LINUS LEWIS MD.4 5 PAIN IN JOINT INVOLVING PELVIC [employer]ION AND THIGH 10/28/2012 SOFYA COIL CONNECTOR REPAIRER, SELMA R 443.0 RAYNAUD'S SYNDROME 10/28/2012 SOFYA COIL CONNECTOR REPAIRER, SELMA R 719.45 PAIN IN JOINT INVOLVING PELVIC [employer] AND THIGH 10/28/2012 NARGIS BUTLER, TYRELL S 443.0 RAYNAUD'S SYNDROME 10/28/2012 NARGIS COIL CONNECTOR REPAIRER, TYRELL S 719.45 PAIN IN JOINT INVOLVING PELVIC [employer] AND THIGH 10/28/2012 RAQUEL COIL CONNECTOR REPAIRER, CHERYL 443 .0 RAYNAUD'S SYNDROME 10/28/2012 RAQUEL COIL CONNECTOR REPAIRER, CHERYL 719 .45 PAIN IN JOINT INVOLVING PELVIC [employer]ION AND THIGH 10/28/2012 RAQUEL COIL CONNECTOR REPAIRER, CHERYL 443 .0 RAYNAUD'S SYNDROME 10/28/2012 RAQUEL COIL CONNECTOR REPAIRER, CHERYL 719 .45 PAIN IN JOINT INVOLVING PELVIC [employer]ION AND THIGH 10/28/2012 RAQUEL COIL CONNECTOR REPAIRER, CHERYL 443 .0 RAYNAUD'S SYNDROME 10/28/2012 RAQUEL COIL CONNECTOR REPAIRER, CHERYL 719 .45 PAIN IN JOINT INVOLVING PELVIC [employer]ION AND THIGH 10/28/2012 NARGIS BUTLER, TYRELL S 443.0 RAYNAUD'S SYNDROME 10/28/2012 NARGIS BOWLESN, TYRELL S 719.45 PAIN IN JOINT INVOLVING PELVIC [employer] AND THIGH 10/28/2012 RAQUEL COIL CONNECTOR REPAIRER, CHERYL 443 .0 RAYNAUD'S SYNDROME 10/28/2012 RAQUEL COIL CONNECTOR REPAIRER, CHERYL 719 .45 PAIN IN JOINT INVOLVING PELVIC [employer]ION AND THIGH 10/28/2012 MELODY ALCANTARA PSYD ANN L 443.0 RAYNAUD'S SYNDROME 10/28/2012 MELODY ALCANTARA PSYD ANN L 719.45 PAIN IN JOINT INVOLVING PELVIC [employer]ION AND THIGH 10/28/2012 NARGIS COIL CONNECTOR REPAIRER, TYRELL S 443.0 RAYNAUD'S SYNDROME 10/28/2012 NARGIS BOWLESN, TYRELL S 719.45 PAIN IN JOINT INVOLVING PELVIC [employer]ION AND THIGH 10/28/2012 NARGIS COIL CONNECTOR REPAIRER, TYRELL S 443.0 RAYNAUD'S SYNDROME 10/28/2012 NARGIS COIL CONNECTOR REPAIRER, TYRELL S 719.45 PAIN IN JOINT INVOLVING PELVIC [employer]ION AND THIGH 10/28/2012 RAQUEL COIL CONNECTOR REPAIRER, CHERYL 443 .0 RAYNAUD'S SYNDROME 10/28/2012 RAQUEL BUTLER CHERYL 719 .45 PAIN IN JOINT INVOLVING PELVIC [employer]ION AND THIGH 10/28/2012 SHARON JEFFERSON APRN 443. 0 RAYNAUD'S SYNDROME 10/28/2012 SHARON JEFFERSON APRN 719. 45 PAIN IN JOINT INVOLVING PELVIC [employer]ION AND THIGH 10/28/2012 RAQUEL BUTLER CHERYL 443 .0 RAYNAUD'S SYNDROME 10/28/2012 RAQUEL BUTLER CHERYL 719 .45 PAIN IN JOINT INVOLVING PELVIC [employer]ION AND THIGH 10/28/2012 MELODY ALCANTARA PSYD 443.0 RAYNAUD'S SYNDROME 10/28/2012 MELODY ALCANTARA PSYD 719.45 PAIN IN JOINT INVOLVING PELVIC [employer]ION AND THIGH 04/19/2013 SHARON JEFFERSON GUITAR TEACHER Ot 715. 35 LOC OSTEOARTH NOS-PELVIS 04/19/2013 SHARON JEFFERSON GUITAR TEACHER Ot V57. 1 PHYSICAL THERAPY NEC 05/31/2013 MELODY ALCANTARA PSYD L 296.62 MO BIPOLAR I MIXED MODERATE 05/31/2013 TESSA WEN APRN 296.62 MO BIPOLAR I MIXED MODERATE 05/31/2013 JESSI KRAUSE APRN A 296.62 MO BIPOLAR I MIXED MODERATE 05/31/2013 MELODY ALCANTARA PSYD L 296.62 MO BIPOLAR I MIXED MODERATE 05/31/2013 LINUS LEWIS MD 296.6 2 MO BIPOLAR I MIXED MODERATE 05/31/2013 MERYL KRAUSE APRNIDI A 296.62 MO BIPOLAR I MIXED MODERATE 05/31/2013 RAQUEL BUTLER CHERYL 296 .62 MO BIPOLAR I MIXED MODERATE 05/31/2013 MELODY ALCANTARA PSYD L 296.62 MO BIPOLAR I MIXED MODERATE 05/31/2013 RAQUEL BUTLER CHERYL 296 .62 MO BIPOLAR I MIXED MODERATE 05/31/2013 LINUS LEWIS MD 296.6 2 MO BIPOLAR I MIXED MODERATE 05/31/2013 ROSY COWART APRNINA R 296.62 MO BIPOLAR I MIXED MODERATE 05/31/2013 TYRELL BARILLAS APRN S 296.62 MO BIPOLAR I MIXED MODERATE 05/31/2013 RAQUEL BUTLER CHERYL 296 .62 MO BIPOLAR I MIXED MODERATE 05/31/2013 RAQUEL COIL CONNECTOR REPAIRER, CHERYL 296 .62 MO BIPOLAR I MIXED MODERATE 05/31/2013 RAQUEL COIL CONNECTOR REPAIRER, CHERYL 296 .62 MO BIPOLAR I MIXED MODERATE 05/31/2013 NARGIS COIL CONNECTOR REPAIRER, TYRELL S 296.62 MO BIPOLAR I MIXED MODERATE 05/31/2013 RAQUEL COIL CONNECTOR REPAIRER, CHERYL 296 .62 MO BIPOLAR I MIXED MODERATE 05/31/2013 MELODY ALCANTARA PSYD L 296.62 MO BIPOLAR I MIXED MODERATE 05/31/2013 NARGIS COIL CONNECTOR REPAIRER, TYRELL S 296.62 MO BIPOLAR I MIXED MODERATE 05/31/2013 NARGIS COIL CONNECTOR REPAIRER, TYRELL S 296.62 MO BIPOLAR I MIXED MODERATE 05/31/2013 RAQUEL COIL CONNECTOR REPAIRER, CHERYL 296 .62 MO BIPOLAR I MIXED MODERATE 05/31/2013 RONNY COIL CONNECTOR REPAIRER, SHARON D 296. 62 MO BIPOLAR I MIXED MODERATE 05/31/2013 RAQUEL COIL CONNECTOR REPAIRER, CHERYL 296 .62 MO BIPOLAR I MIXED MODERATE 05/31/2013 MELODY ALCANTARA PSYD ANN L 296.62 MO BIPOLAR I MIXED MODERATE 07/19/2013 JESSI KRAUSE APRN A 30 5.1 TOBACCO ABUSE 07/19/2013 MERYL KRAUSE APRNIDI A V65.49 OTHER SPECIFIED COUNSELING 07/19/2013 MERYL KRAUSE APRNIDI A V73.81 HPV SCREENING 07/19/2013 MERYL KRAUSE APRNIDI A V7 6.2 CERVICAL CANCER SCREENING (PAP SMEAR) 07/19/2013 MERYL KRAUSE APRNIDI A V76.51 COLON CANCER SCREENING 07/19/2013 MERYL KRAUSE APRNIDI A V82.81 SPECIAL SCREENING FOR OSTEOPOROSIS 07/19/2013 MELODY ALCANTARA PSYD L 305.1 TOBACCO ABUSE 07/19/2013 MELODY ALCANTARA PSYD V65.49 OTHER SPECIFIED COUNSELING 07/19/2013 MELODY ALCANTARA PSYD V73.81 HPV SCREENING 07/19/2013 MELODY ALCANTARA PSYD V76.2 CERVICAL CANCER SCREENING (PAP SMEAR) 07/19/2013 MELODY ALCANTARA PSYD V76.51 COLON CANCER SCREENING 07/19/2013 MELODY ALCANTARA PSYD V82.81 SPECIAL SCREENING FOR OSTEOPOROSIS 07/19/2013 LINUS LEWIS MD 305.1 TOBACCO ABUSE 07/19/2013 LINUS LEWIS MD V65.4 9 OTHER SPECIFIED COUNSELING 07/19/2013 LINUS LEWIS MD V73.8 1 HPV SCREENING 07/19/2013 LINUS LEWIS MD V76.2 CERVICAL CANCER SCREENING (PAP SMEAR) 07/19/2013 LINUS LEWIS MD V76.5 1 COLON CANCER SCREENING 07/19/2013 LINUS LEWIS MD V82.8 1 SPECIAL SCREENING FOR OSTEOPOROSIS 07/19/2013 JESSI KRAUSE APRN A 30 5.1 TOBACCO ABUSE 07/19/2013 MERYL KRAUSE APRNIDI A V65.49 OTHER SPECIFIED COUNSELING 07/19/2013 JESSI KRAUSE APRN A V73.81 HPV SCREENING 07/19/2013 MERYL KRAUSE APRNIDI A V7 6.2 CERVICAL CANCER SCREENING (PAP SMEAR) 07/19/2013 MERYL KRAUSE APRNIDI A V76.51 COLON CANCER SCREENING 07/19/2013 JESSI KRAUSE APRN A V82.81 SPECIAL SCREENING FOR OSTEOPOROSIS 07/19/2013 KYLE GARCÍA APRNETTE 305 .1 TOBACCO ABUSE 07/19/2013 RAQUEL BUTLER CHERYL V65 .49 OTHER SPECIFIED COUNSELING 07/19/2013 CHERYL GARCÍA APRN V73 .81 HPV SCREENING 07/19/2013 RAQUEL BUTLER CHERYL V76 .2 CERVICAL CANCER SCREENING (PAP SMEAR) 07/19/2013 RAQUEL BUTLER CHERYL V76 .51 COLON CANCER SCREENING 07/19/2013 RAQUEL BUTLER CHERYL V82 .81 SPECIAL SCREENING FOR OSTEOPOROSIS 07/19/2013 MELODY ALCATNARA PSYD L 305.1 TOBACCO ABUSE 07/19/2013 MELODY ALCANTARA PSYD L V65.49 OTHER SPECIFIED COUNSELING 07/19/2013 MELODY ALCANTARA PSYD L V73.81 HPV SCREENING 07/19/2013 MELODY ALCANTARA PSYD L V76.2 CERVICAL CANCER SCREENING (PAP SMEAR) 07/19/2013 MELODY ALCANTARA PSYD L V76.51 COLON CANCER SCREENING 07/19/2013 MELODY ALCANTARA PSYD ANN L V82.81 SPECIAL SCREENING FOR OSTEOPOROSIS 07/19/2013 RAQUEL BUTLER CHERYL 305 .1 TOBACCO ABUSE 07/19/2013 RAQUEL COIL CONNECTOR REPAIRER, CHERYL V65 .49 OTHER SPECIFIED COUNSELING 07/19/2013 RAQUEL BUTLER CHERYL V73 .81 HPV SCREENING 07/19/2013 RAQUEL BUTLER CHERYL V76 .2 CERVICAL CANCER SCREENING (PAP SMEAR) 07/19/2013 RAQUEL COIL CONNECTOR REPAIRER, CHERYL V76 .51 COLON CANCER SCREENING 07/19/2013 RAQUEL BUTLER CHERYL V82 .81 SPECIAL SCREENING FOR OSTEOPOROSIS 07/19/2013 LINUS LEWIS MD 305.1 TOBACCO ABUSE 07/19/2013 LINUS LEWIS MD V65.4 9 OTHER SPECIFIED COUNSELING 07/19/2013 LINUS LEWIS MD V73.8 1 HPV SCREENING 07/19/2013 LINUS LEWIS MD V76.2 CERVICAL CANCER SCREENING (PAP SMEAR) 07/19/2013 LINUS LEWIS MD V76.5 1 COLON CANCER SCREENING 07/19/2013 LINUS LEWIS MD V82.8 1 SPECIAL SCREENING FOR OSTEOPOROSIS 07/19/2013 SELMA COWART APRN R 305.1 TOBACCO ABUSE 07/19/2013 SOFYA BUTLER SELMA R V65.49 OTHER SPECIFIED COUNSELING 07/19/2013 SOFYA BUTLER SELMA R V73.81 HPV SCREENING 07/19/2013 SOFYA BUTLER SELMA R V76.2 CERVICAL CANCER SCREENING (PAP SMEAR) 07/19/2013 SOFYA BUTLER SELMA R V76.51 COLON CANCER SCREENING 07/19/2013 SOFYA BUTLER SELMA R V82.81 SPECIAL SCREENING FOR OSTEOPOROSIS 07/19/2013 TYRELL BARILLAS APRN S 305.1 TOBACCO ABUSE 07/19/2013 NARGIS BUTLER TYRELL S V65.49 OTHER SPECIFIED COUNSELING 07/19/2013 NARGIS BUTLER TYRELL S V73.81 HPV SCREENING 07/19/2013 NARGIS BUTLER TYRELL S V76.2 CERVICAL CANCER SCREENING (PAP SMEAR) 07/19/2013 NARGIS BUTLER TYRELL S V76.51 COLON CANCER SCREENING 07/19/2013 NARGIS BUTLER TYRELL S V82.81 SPECIAL SCREENING FOR OSTEOPOROSIS 07/19/2013 KYLE GARCÍA APRNETTE 305 .1 TOBACCO ABUSE 07/19/2013 RAQUEL COIL CONNECTOR REPAIRER, CHERYL V65 .49 OTHER SPECIFIED COUNSELING 07/19/2013 RAQUEL COIL CONNECTOR REPAIRER, CHERYL V73 .81 HPV SCREENING 07/19/2013 RAQUEL COIL CONNECTOR REPAIRER, CHERYL V76 .2 CERVICAL CANCER SCREENING (PAP SMEAR) 07/19/2013 RAQUEL COIL CONNECTOR REPAIRER, CHERYL V76 .51 COLON CANCER SCREENING 07/19/2013 RAQEUL COIL CONNECTOR REPAIRER, CHERYL V82 .81 SPECIAL SCREENING FOR OSTEOPOROSIS 07/19/2013 RAQUEL COIL CONNECTOR REPAIRER, CHERYL 305 .1 TOBACCO ABUSE 07/19/2013 RAQUEL COIL CONNECTOR REPAIRER, CHERYL V65 .49 OTHER SPECIFIED COUNSELING 07/19/2013 RAQUEL COIL CONNECTOR REPAIRER, CHERYL V73 .81 HPV SCREENING 07/19/2013 RAQUEL COIL CONNECTOR REPAIRER, CHERYL V76 .2 CERVICAL CANCER SCREENING (PAP SMEAR) 07/19/2013 RAQUEL COIL CONNECTOR REPAIRER, CHERYL V76 .51 COLON CANCER SCREENING 07/19/2013 RAQUEL COIL CONNECTOR REPAIRER, CHERYL V82 .81 SPECIAL SCREENING FOR OSTEOPOROSIS 07/19/2013 RAQUEL COIL CONNECTOR REPAIRER, CHERYL 305 .1 TOBACCO ABUSE 07/19/2013 RAQUEL COIL CONNECTOR REPAIRER, CHERYL V65 .49 OTHER SPECIFIED COUNSELING 07/19/2013 RAQUEL COIL CONNECTOR REPAIRER, CHERYL V73 .81 HPV SCREENING 07/19/2013 RAQUEL COIL CONNECTOR REPAIRER, CHERYL V76 .2 CERVICAL CANCER SCREENING (PAP SMEAR) 07/19/2013 RAQUEL COIL CONNECTOR REPAIRER, CHERYL V76 .51 COLON CANCER SCREENING 07/19/2013 RAQUEL COIL CONNECTOR REPAIRER, CHERYL V82 .81 SPECIAL SCREENING FOR OSTEOPOROSIS 07/19/2013 NARGIS BUTLER TYRELL S 305.1 TOBACCO ABUSE 07/19/2013 NARGIS BUTLER TYRELL S V65.49 OTHER SPECIFIED COUNSELING 07/19/2013 NARGIS BUTLER TYRELL S V73.81 HPV SCREENING 07/19/2013 NARGIS COIL CONNECTOR REPAIRER, TYRELL S V76.2 CERVICAL CANCER SCREENING (PAP SMEAR) 07/19/2013 NARGIS BUTLER TYRELL S V76.51 COLON CANCER SCREENING 07/19/2013 NARGIS COIL CONNECTOR REPAIRER, TYRELL S V82.81 SPECIAL SCREENING FOR OSTEOPOROSIS 07/19/2013 RAQUEL COIL CONNECTOR REPAIRER, CHERYL 305 .1 TOBACCO ABUSE 07/19/2013 RAQUEL COIL CONNECTOR REPAIRER, CHERYL V65 .49 OTHER SPECIFIED COUNSELING 07/19/2013 RAQUEL COIL CONNECTOR REPAIRER, CHERYL V73 .81 HPV SCREENING 07/19/2013 RAQUEL COIL CONNECTOR REPAIRER, CHERYL V76 .2 CERVICAL CANCER SCREENING (PAP SMEAR) 07/19/2013 RAQUEL COIL CONNECTOR REPAIRER, CHERYL V76 .51 COLON CANCER SCREENING 07/19/2013 RAQUEL COIL CONNECTOR REPAIRER, CHERYL V82 .81 SPECIAL SCREENING FOR OSTEOPOROSIS 07/19/2013 MELODY ALCANTARA PSYD L 305.1 TOBACCO ABUSE 07/19/2013 MELODY ALCANTARA PSYD ANN L V65.49 OTHER SPECIFIED COUNSELING 07/19/2013 MELODY ALCANTARA PSYD ANN L V73.81 HPV SCREENING 07/19/2013 MELODY ALCANTARA PSYD ANN L V76.2 CERVICAL CANCER SCREENING (PAP SMEAR) 07/19/2013 MELODY ALCANTARA PSYD L V76.51 COLON CANCER SCREENING 07/19/2013 MELODY ALCANTARA PSYD ANN L V82.81 SPECIAL SCREENING FOR OSTEOPOROSIS 07/19/2013 NARGIS BUTLER TYRELL S 305.1 TOBACCO ABUSE 07/19/2013 NARGIS BUTLER TYRELL S V65.49 OTHER SPECIFIED COUNSELING 07/19/2013 NARGIS BUTLER TYRELL S V73.81 HPV SCREENING 07/19/2013 NARGIS BUTLER, TYRELL S V76.2 CERVICAL CANCER SCREENING (PAP SMEAR) 07/19/2013 NARGIS COIL CONNECTOR REPAIRER, TYRELL S V76.51 COLON CANCER SCREENING 07/19/2013 NARGIS COIL CONNECTOR REPAIRER, TYRELL S V82.81 SPECIAL SCREENING FOR OSTEOPOROSIS 07/19/2013 NARGIS BUTLER, TYRELL S 305.1 TOBACCO ABUSE 07/19/2013 NARGIS BUTLER, TYRELL S V65.49 OTHER SPECIFIED COUNSELING 07/19/2013 NARGIS COIL CONNECTOR REPAIRER, TYRELL S V73.81 HPV SCREENING 07/19/2013 NARGIS COIL CONNECTOR REPAIRER, TYRELL S V76.2 CERVICAL CANCER SCREENING (PAP SMEAR) 07/19/2013 NARGIS COIL CONNECTOR REPAIRER, TYRELL S V76.51 COLON CANCER SCREENING 07/19/2013 NARGIS COIL CONNECTOR REPAIRER, TYRELL S V82.81 SPECIAL SCREENING FOR OSTEOPOROSIS 07/19/2013 RAQUEL COIL CONNECTOR REPAIRER, CHERYL 305 .1 TOBACCO ABUSE 07/19/2013 RAQUEL COIL CONNECTOR REPAIRER, CHERYL V65 .49 OTHER SPECIFIED COUNSELING 07/19/2013 CHERYL GARCÍA APRN V73 .81 HPV SCREENING 07/19/2013 CHERYL GARCÍA APRN V76 .2 CERVICAL CANCER SCREENING (PAP SMEAR) 07/19/2013 RAQEUL BUTLER CHERYL V76 .51 COLON CANCER SCREENING 07/19/2013 RAQUEL BUTLER CHERYL V82 .81 SPECIAL SCREENING FOR OSTEOPOROSIS 07/19/2013 SHARON JEFFERSON APRN 305. 1 TOBACCO ABUSE 07/19/2013 SHARON JEFFERSON APRN V65. 49 OTHER SPECIFIED COUNSELING 07/19/2013 SHARON JEFFERSON APRN V73. 81 HPV SCREENING 07/19/2013 SHARON JEFFERSON APRN V76. 2 CERVICAL CANCER SCREENING (PAP SMEAR) 07/19/2013 SHARON JEFFERSON APRN V76. 51 COLON CANCER SCREENING 07/19/2013 SHARON JEFFERSON APRN V82. 81 SPECIAL SCREENING FOR OSTEOPOROSIS 07/19/2013 CHERYL GARCÍA APRN 305 .1 TOBACCO ABUSE 07/19/2013 CHERYL GARCÍA APRN V65 .49 OTHER SPECIFIED COUNSELING 07/19/2013 CHERYL GARCÍA APRN V73 .81 HPV SCREENING 07/19/2013 CHERYL GARCÍA APRN V76 .2 CERVICAL CANCER SCREENING (PAP SMEAR) 07/19/2013 CHERYL GARCÍA APRN V76 .51 COLON CANCER SCREENING 07/19/2013 CHERYL GARCÍA APRN V82 .81 SPECIAL SCREENING FOR OSTEOPOROSIS 07/19/2013 MELODY ALCANTARA PSYD 305.1 TOBACCO ABUSE 07/19/2013 MELODY ALCANTARA PSYD V65.49 OTHER SPECIFIED COUNSELING 07/19/2013 MELODY ALCANTARA PSYD V73.81 HPV SCREENING 07/19/2013 MELODY ALCANTARA PSYD V76.2 CERVICAL CANCER SCREENING (PAP SMEAR) 07/19/2013 MELODY ALCANTARA PSYD V76.51 COLON CANCER SCREENING 07/19/2013 MELODY ALCANTARA PSYD V82.81 SPECIAL SCREENING FOR OSTEOPOROSIS 10/13/2013 CHERYL GARCÍA APRN 780 .79 OTHER MALAISE AND FATIGUE 10/13/2013 LINUS LEWIS MD 780.7 9 OTHER MALAISE AND FATIGUE 10/13/2013 SOFYA COIL CONNECTOR REPAIRERSELMA 780.79 OTHER MALAISE AND FATIGUE 10/13/2013 NARGIS COIL CONNECTOR REPAIRER, TYRELL S 780.79 OTHER MALAISE AND FATIGUE 10/13/2013 RAQUEL COIL CONNECTOR REPAIRER, CHERYL 780 .79 OTHER MALAISE AND FATIGUE 10/13/2013 RAQUEL COIL CONNECTOR REPAIRER, CHERYL 780 .79 OTHER MALAISE AND FATIGUE 10/13/2013 RAQUEL COIL CONNECTOR REPAIRER, CHERYL 780 .79 OTHER MALAISE AND FATIGUE 10/13/2013 NARGIS COIL CONNECTOR REPAIRER, TYRELL S 780.79 OTHER MALAISE AND FATIGUE 10/13/2013 RAQUEL COIL CONNECTOR REPAIRER, CHERYL 780 .79 OTHER MALAISE AND FATIGUE 10/13/2013 MELODY ALCANTARA PSYD 780.79 OTHER MALAISE AND FATIGUE 10/13/2013 NARGIS COIL CONNECTOR REPAIRER, TYRELL S 780.79 OTHER MALAISE AND FATIGUE 10/13/2013 NARGIS COIL CONNECTOR REPAIRER, TYRELL S 780.79 OTHER MALAISE AND FATIGUE 10/13/2013 RAQUEL COIL CONNECTOR REPAIRER, CHERYL 780 .79 OTHER MALAISE AND FATIGUE 10/13/2013 RONNY COIL CONNECTOR REPAIRERSHARON Aranda 780. 79 OTHER MALAISE AND FATIGUE 10/13/2013 RAQUEL COIL CONNECTOR REPAIRER, CHERYL 780 .79 OTHER MALAISE AND FATIGUE 10/13/2013 MELODY ALCANTARA PSYD 780.79 OTHER MALAISE AND FATIGUE 04/10/2014 RAQUEL COIL CONNECTOR REPAIRER CHERYL 723 .1 CERVICALGIA 04/10/2014 NARGIS COIL CONNECTOR REPAIRER, TYRELL S 723.1 CERVICALGIA 04/10/2014 RAQUEL COIL CONNECTOR REPAIRER CHERYL 723 .1 CERVICALGIA 04/10/2014 MELODY ALCANTARA PSYD 723.1 CERVICALGIA 04/10/2014 NARGIS COIL CONNECTOR REPAIRER, TYRELL S 723.1 CERVICALGIA 04/10/2014 NARGIS COIL CONNECTOR REPAIRER, TYRELL S 723.1 CERVICALGIA 04/10/2014 RAQUEL COIL CONNECTOR REPAIRER CHERYL 723 .1 CERVICALGIA 04/10/2014 SHARON JEFFERSON APRN 723. 1 CERVICALGIA 04/10/2014 RAQUEL COIL CONNECTOR REPAIRER, CHERYL 723 .1 CERVICALGIA 04/10/2014 MELODY ALCANTARA PSYD 723.1 CERVICALGIA 09/20/2014 TYRELL BARILLAS APRN S 719.45 PAIN- HIP 09/20/2014 TYRELL BARILLAS APRN S 719.45 PAIN- HIP 09/20/2014 RAQUEL BUTLER, CHERYL 719 .45 PAIN- HIP 09/20/2014 SHARON JEFFERSON APRN 719. 45 PAIN- HIP 09/20/2014 RAQUEL COIL CONNECTOR REPAIRER, CHERYL 719 .45 PAIN- HIP 09/20/2014 MELODY ALCANTARA PSYD 719.45 PAIN- HIP 11/29/2014 Ot V76.12 11/29/2014 Ot V76.12 11/29/2014 JESSI KRAUSE APRN Ot V76.12 11/29/2014 DEPUE JACEY HILL Ot V72. 84 11/29/2014 DEPUE JACEY HILL Ot V72. 84 11/29/2014 DEPUE JACEY HILL Ot V72. 84 12/06/2014 MARGARET JUÁREZ MD Ot 305.1 TOBACCO USE DISORDER 12/06/2014 MARGARET JUÁREZ MD Ot 49 6 CHR AIRWAY OBSTRUCT NEC 12/06/2014 MARGARET JUÁREZ MD Ot 715.91 OSTEOARTHROS NOS-SHLDER 12/06/2014 MARGARET JUÁREZ MD Ot 726.5 ENTHESOPATHY OF HIP 12/06/2014 MARGARET JUÁREZ MD Ot V58.69 OTH MED,LT,CURRENT USE 08/30/2015 TYRELL BARILLAS GUITAR TEACHER Ot R22.31 10/30/2015 ANUSHA BARRAGAN, BHARGAV [place] Ot D17.39 BENIGN LIPOMATOUS NEOPLASM OF SKIN, SUBC 10/30/2015 ANUSHA BARRAGAN, BHARGAV [place] Ot Z01.818 ENCOUNTER FOR OTHER PREPROCEDURAL EXAMIN 10/30/2015 BHARGAV TAVARES MD Ot Z11.2 ENCOUNTER FOR SCREENING FOR OTHER BACTER 10/31/2015 ANUSHA BARRAGAN, BHARGAV [place] Ot D17.39 BENIGN LIPOMATOUS NEOPLASM OF SKIN, SUBC 10/31/2015 BHARGAV TAVARES MD Ot Z01.818 ENCOUNTER FOR OTHER PREPROCEDURAL EXAMIN 10/31/2015 BHARGAV TAVARES MD Ot Z11.2 ENCOUNTER FOR SCREENING FOR OTHER BACTER 10/31/2015 ANUSHA BARRAGAN, BHARGAV [place] Ot D17.39 BENIGN LIPOMATOUS NEOPLASM OF SKIN, SUBC 10/31/2015 ANUSHA BARRAGAN, BHARGAV [place] Ot Z01.818 ENCOUNTER FOR OTHER PREPROCEDURAL EXAMIN 10/31/2015 BHARGAV TAVARES MD Ot Z11.2 ENCOUNTER FOR SCREENING FOR OTHER BACTER 11/02/2015 ANUSHA BARRAGAN, BHARGAV [place] Ot D17.21 BENIGN LIPOMATOUS NEOPLASM OF SKIN, SUBC 11/02/2015 BHARGAV TAVARES MD Ot E11.9 TYPE 2 DIABETES MELLITUS WITHOUT COMPLIC 11/14/2015 BHARGAV TAVARES MD Ot D17.21 BENIGN LIPOMATOUS NEOPLASM OF SKIN, SUBC 11/14/2015 BHARGAV TAVARES MD Ot E11.9 TYPE 2 DIABETES MELLITUS WITHOUT COMPLIC 12/27/2015 Ot V76.12 OTH SCREEN MAMMO- MALIGN NEOPLASM OF EDIN 12/27/2015 JESSI KRAUSE APRN Ot V76.12 OTH SCREEN MAMMO-MALIGN NEOPLASM OF EDIN 12/27/2015 JACEY SOLARES DO Ot V72. 84 EXAM PRE-OPERATIVE NOS 12/27/2015 MARGARET JUÁREZ MD Ot 726.5 ENTHESOPATHY OF HIP 12/27/2015 MARGARET JUÁREZ MD Ot V72.84 EXAM PRE-OPERATIVE NOS 12/27/2015 FRANCK BARRAGAN, MARGARET Pearson Ot V74.8 SCREEN-BACTERIAL DIS NEC 12/27/2015 TYRELL BARILLAS Ot R22.31 LOCALIZED SWELLING, MASS AND LUMP, RIGHT 12/27/2015 ROCIO WELDON DO Ot F17.210 NICOTINE DEPENDENCE, CIGARETTES, UNCOMPL 12/27/2015 ROCIO WELDON DO Ot J06.9 ACUTE UPPER RESPIRATORY INFECTION, UNSPE 12/27/2015 ROCIO WELDON DO Ot F17.210 NICOTINE DEPENDENCE, CIGARETTES, UNCOMPL 12/27/2015 ROCIO WELDON DO Ot J06.9 ACUTE UPPER RESPIRATORY INFECTION, UNSPE 12/28/2015 ROCIO WELDON DO Ot F17.210 NICOTINE DEPENDENCE, CIGARETTES, UNCOMPL 12/28/2015 ROCIO WELDON DO Ot J06.9 ACUTE UPPER RESPIRATORY INFECTION, UNSPE 06/04/2016 FRANCK BARRAGAN, MARGARET Pearson Ot M16.11 UNILATERAL PRIMARY OSTEOARTHRITIS, RIGHT 06/04/2016 MARGARET JUÁREZ MD Ot Z01.818 ENCOUNTER FOR OTHER PREPROCEDURAL EXAMIN 06/04/2016 MARGARET JUÁREZ MD Ot Z11.2 ENCOUNTER FOR SCREENING FOR OTHER BACTER 06/06/2016 MARGARET JUÁREZ MD Ot M16.11 UNILATERAL PRIMARY OSTEOARTHRITIS, RIGHT 06/06/2016 MARGARET JUÁREZ MD Ot Z01.818 ENCOUNTER FOR OTHER PREPROCEDURAL EXAMIN 06/06/2016 MARGARET JUÁREZ MD Ot Z11.2 ENCOUNTER FOR SCREENING FOR OTHER BACTER 06/11/2016 Ot V76.12 OTH SCREEN MAMMO- MALIGN NEOPLASM OF EDIN 06/11/2016 JESSI KRAUSE COIL CONNECTOR REPAIRER Ot V76.12 OTH SCREEN MAMMO-MALIGN NEOPLASM OF EDIN 06/11/2016 JACEY SOLARES DO Ot V72. 84 EXAM PRE-OPERATIVE NOS 06/11/2016 MARGARET JUÁREZ MD Ot 726.5 ENTHESOPATHY OF HIP 06/11/2016 MARGARET JUÁREZ MD Ot V72.84 EXAM PRE-OPERATIVE NOS 06/11/2016 MARGARET JUÁREZ MD Ot V74.8 SCREEN-BACTERIAL DIS NEC 06/11/2016 TYRELL BARILLAS Ot R22.31 LOCALIZED SWELLING, MASS AND LUMP, RIGHT 06/11/2016 MARGARET JUÁREZ MD Ot E11.9 TYPE 2 DIABETES MELLITUS WITHOUT COMPLIC 06/11/2016 MARGARET JUÁREZ MD Ot F31.9 BIPOLAR DISORDER, UNSPECIFIED 06/11/2016 MARGARET JUÁREZ MD Ot F41.9 ANXIETY DISORDER, UNSPECIFIED 06/11/2016 MARGARET JUÁREZ MD Ot I1 0 ESSENTIAL (PRIMARY) HYPERTENSION 06/11/2016 MARGARET JUÁREZ MD Ot M16.11 UNILATERAL PRIMARY OSTEOARTHRITIS, RIGHT 06/12/2016 MARGARET JUÁREZ MD Ot E11.9 TYPE 2 DIABETES MELLITUS WITHOUT COMPLIC 06/12/2016 MARGARET JUÁREZ MD Ot F31.9 BIPOLAR DISORDER, UNSPECIFIED 06/12/2016 MARGARET JUÁREZ MD Ot F41.9 ANXIETY DISORDER, UNSPECIFIED 06/12/2016 MARGARET JUÁREZ MD Ot I1 0 ESSENTIAL (PRIMARY) HYPERTENSION 06/12/2016 MARGARET JUÁREZ MD Ot M16.11 UNILATERAL PRIMARY OSTEOARTHRITIS, RIGHT 06/13/2016 TYRELL BARILLASP Ot Z12.31 ENCNTR SCREEN MAMMOGRAM FOR MALIGNANT NE 07/04/2016 TYRELL BARILLAS GUITAR TEACHER Ot Z12.31 ENCNTR SCREEN MAMMOGRAM FOR MALIGNANT NE 07/10/2016 TYRELL BARILLASP Ot Z00.00 ENCNTR FOR GENERAL ADULT MEDICAL EXAM W/ 07/10/2016 TYRELL BARILLAS GUITAR TEACHER Ot Z12.31 ENCNTR SCREEN MAMMOGRAM FOR MALIGNANT NE 08/20/2016 TYRELL BARILLAS GUITAR TEACHER Ot Z12.2 ENCNTR SCREEN FOR MALIGNANT NEOPLASM OF 08/20/2016 TYRELL BARILLASP Ot Z87.891 PERSONAL HISTORY OF NICOTINE DEPENDENCE 08/20/2016 TYRELL BARILLAS GUITAR TEACHER Ot Z12.2 ENCNTR SCREEN FOR MALIGNANT NEOPLASM OF 08/20/2016 TYRELL BARILLAS GUITAR TEACHER Ot Z87.891 PERSONAL HISTORY OF NICOTINE DEPENDENCE 09/09/2016 TYRELL BARILLAS GUITAR TEACHER Ot Z12.2 ENCNTR SCREEN FOR MALIGNANT NEOPLASM OF 09/09/2016 TYRELL BARILLAS GUITAR TEACHER Ot Z87.891 PERSONAL HISTORY OF NICOTINE DEPENDENCE 09/19/2016 TYRELL BARILLAS GUITAR TEACHER Ot Z12.2 ENCNTR SCREEN FOR MALIGNANT NEOPLASM OF 09/19/2016 TYRELL BARILLAS GUITAR TEACHER Ot Z87.891 PERSONAL HISTORY OF NICOTINE DEPENDENCE 09/09/2017 JESSI KRAUSE APRN Ot V76.12 OTH SCREEN MAMMO-MALIGN NEOPLASM OF EDIN 09/09/2017 JACEY SOLARES DO Ot V72. 84 EXAM PRE-OPERATIVE NOS 09/09/2017 FRANCK BARRAGAN, MARGARET Pearson Ot 726.5 ENTHESOPATHY OF HIP 09/09/2017 MARGARET JUÁREZ MD Ot V72.84 EXAM PRE-OPERATIVE NOS 09/09/2017 FRANCK BARRAGAN, MARGARET Pearson Ot V74.8 SCREEN-BACTERIAL DIS NEC 09/09/2017 TYRELL BARILLAS GUITAR TEACHER Ot R22.31 LOCALIZED SWELLING, MASS AND LUMP, RIGHT 09/09/2017 TYRELL BARILLASP Ot Z12.31 ENCNTR SCREEN MAMMOGRAM FOR MALIGNANT NE 09/09/2017 TYRELL BARILLAS GUITAR TEACHER Ot Z00.00 ENCNTR FOR GENERAL ADULT MEDICAL EXAM W/ 09/09/2017 TYRELL BARILLAS GUITAR TEACHER Ot Z12.2 ENCNTR SCREEN FOR MALIGNANT NEOPLASM OF 09/09/2017 TYRELL BARILLAS GUITAR TEACHER Ot Z87.891 PERSONAL HISTORY OF NICOTINE DEPENDENCE 09/15/2017 TYRELL BARILLASP Ot K76.0 FATTY (CHANGE OF) LIVER, NOT ELSEWHERE C 09/15/2017 TYRELL BARILLAS GUITAR TEACHER Ot Z90.49 ACQUIRED ABSENCE OF OTHER SPECIFIED PART 09/15/2017 TYRELL BARILLAS GUITAR TEACHER Ot K76.0 FATTY (CHANGE OF) LIVER, NOT ELSEWHERE C 09/15/2017 TYRELL BARILLAS GUITAR TEACHER Ot Z90.49 ACQUIRED ABSENCE OF OTHER SPECIFIED PART 09/29/2017 TYRELL BARILLAS GUITAR TEACHER Ot K76.0 FATTY (CHANGE OF) LIVER, NOT ELSEWHERE C 09/29/2017 TYRELL BARILLAS GUITAR TEACHER Ot Z90.49 ACQUIRED ABSENCE OF OTHER SPECIFIED PART 10/07/2017 TYRELL BARILLAS GUITAR TEACHER Ot K76.0 FATTY (CHANGE OF) LIVER, NOT ELSEWHERE C 10/07/2017 TYRELL BARILLAS GUITAR TEACHER Ot Z90.49 ACQUIRED ABSENCE OF OTHER SPECIFIED PART 06/23/2019 TYRELL BARILLAS GUITAR TEACHER Ot Z12.31 ENCNTR SCREEN MAMMOGRAM FOR MALIGNANT NE 06/28/2019 TYRELL BARILLAS GUITAR TEACHER Ot Z12.31 ENCNTR SCREEN MAMMOGRAM FOR MALIGNANT NE 06/28/2019 TYRELL BARILLAS GUITAR TEACHER Ot Z87.891 PERSONAL HISTORY OF NICOTINE DEPENDENCE 06/28/2019 TYRELL BARILLAS GUITAR TEACHER Ot Z12.31 ENCNTR SCREEN MAMMOGRAM FOR MALIGNANT NE 06/28/2019 TYRELL BARILLAS GUITAR TEACHER Ot Z87.891 PERSONAL HISTORY OF NICOTINE DEPENDENCE 07/04/2019 MARGARET JUÁREZ MD Ot 726.5 ENTHESOPATHY OF HIP 07/04/2019 MARGARET JUÁREZ MD Ot V72.84 EXAM PRE-OPERATIVE NOS 07/04/2019 MARGARET JUÁREZ MD Ot V74.8 SCREEN-BACTERIAL DIS NEC 07/04/2019 NARGIS TYRELL GUITAR TEACHER Ot R22.31 LOCALIZED SWELLING, MASS AND LUMP, RIGHT 07/04/2019 TYRELL BARILLAS GUITAR TEACHER Ot Z12.31 ENCNTR SCREEN MAMMOGRAM FOR MALIGNANT NE 07/04/2019 NARGIS TYRELL GUITAR TEACHER Ot Z00.00 ENCNTR FOR GENERAL ADULT MEDICAL EXAM W/ 07/04/2019 TYRELL BARILLASP Ot Z12.2 ENCNTR SCREEN FOR MALIGNANT NEOPLASM OF 07/04/2019 TYRELL BARILLAS GUITAR TEACHER Ot Z87.891 PERSONAL HISTORY OF NICOTINE DEPENDENCE 07/04/2019 TYRELL BARILLAS GUITAR TEACHER Ot K76.0 FATTY (CHANGE OF) LIVER, NOT ELSEWHERE C 07/04/2019 TYRELL BARILLSA GUITAR TEACHER Ot Z90.49 ACQUIRED ABSENCE OF OTHER SPECIFIED PART 07/04/2019 TYRELL BARILLAS GUITAR TEACHER Ot Z78.0 ASYMPTOMATIC MENOPAUSAL STATE 07/04/2019 FRANCK BARRAGAN, MARGARET P Ot 726.5 ENTHESOPATHY OF HIP 07/04/2019 MARGARET JUÁREZ MD P Ot V72.84 EXAM PRE-OPERATIVE NOS 07/04/2019 FRANCK BARRAGAN, MARGARET P Ot V74.8 SCREEN-BACTERIAL DIS NEC 07/04/2019 NARGIS TYRELL GUITAR TEACHER Ot R22.31 LOCALIZED SWELLING, MASS AND LUMP, RIGHT 07/04/2019 TYRELL BARILLASP Ot Z12.31 ENCNTR SCREEN MAMMOGRAM FOR MALIGNANT NE 07/04/2019 TYRELL BARILLAS GUITAR TEACHER Ot Z00.00 ENCNTR FOR GENERAL ADULT MEDICAL EXAM W/ 07/04/2019 TYRELL BARILLAS GUITAR TEACHER Ot Z12.2 ENCNTR SCREEN FOR MALIGNANT NEOPLASM OF 07/04/2019 TYRELL BARILLAS GUITAR TEACHER Ot Z87.891 PERSONAL HISTORY OF NICOTINE DEPENDENCE 07/04/2019 TYRELL BARILLAS GUITAR TEACHER Ot K76.0 FATTY (CHANGE OF) LIVER, NOT ELSEWHERE C 07/04/2019 TYRELL BARILLAS GUITAR TEACHER Ot Z90.49 ACQUIRED ABSENCE OF OTHER SPECIFIED PART 07/04/2019 TYRELL BARILLAS GUITAR TEACHER Ot Z78.0 ASYMPTOMATIC MENOPAUSAL STATE 07/04/2019 MARGARET JUÁREZ MD Ot 726.5 ENTHESOPATHY OF HIP 07/04/2019 MARGARET JUÁREZ MD Ot V72.84 EXAM PRE-OPERATIVE NOS 07/04/2019 MARGARET JUÁREZ MD Ot V74.8 SCREEN-BACTERIAL DIS NEC 07/04/2019 TYRELL BARILLASP Ot R22.31 LOCALIZED SWELLING, MASS AND LUMP, RIGHT 07/04/2019 TYRELL BARILLASP Ot Z12.31 ENCNTR SCREEN MAMMOGRAM FOR MALIGNANT NE 07/04/2019 TYRELL BARILLAS GUITAR TEACHER Ot Z00.00 ENCNTR FOR GENERAL ADULT MEDICAL EXAM W/ 07/04/2019 TYRELL BARILLASP Ot Z12.2 ENCNTR SCREEN FOR MALIGNANT NEOPLASM OF 07/04/2019 TYRELL BARILLASP Ot Z87.891 PERSONAL HISTORY OF NICOTINE DEPENDENCE 07/04/2019 TYRELL BARILLASP Ot K76.0 FATTY (CHANGE OF) LIVER, NOT ELSEWHERE C 07/04/2019 TYRELL BARILLAS GUITAR TEACHER Ot Z90.49 ACQUIRED ABSENCE OF OTHER SPECIFIED PART 07/04/2019 TYRELL BARILLAS GUITAR TEACHER Ot Z78.0 ASYMPTOMATIC MENOPAUSAL STATE 07/06/2019 TYRELL BARILLASP Ot F17.210 NICOTINE DEPENDENCE, CIGARETTES, UNCOMPL 07/06/2019 TYRELL BARILLAS GUITAR TEACHER Ot Z12.2 ENCNTR SCREEN FOR MALIGNANT NEOPLASM OF 07/06/2019 TYRELL BARILLASP Ot Z12.31 ENCNTR SCREEN MAMMOGRAM FOR MALIGNANT NE 07/25/2019 TYRELL BARILLASP Ot Z78.0 ASYMPTOMATIC MENOPAUSAL STATE 07/25/2019 MARGARET JUÁREZ MD Ot 726.5 ENTHESOPATHY OF HIP 07/25/2019 MARGARET JUÁREZ MD Ot V72.84 EXAM PRE-OPERATIVE NOS 07/25/2019 MARGARET JUÁREZ MD Ot V74.8 SCREEN-BACTERIAL DIS NEC 07/25/2019 TYRELL BARILLASP Ot R22.31 LOCALIZED SWELLING, MASS AND LUMP, RIGHT 07/25/2019 TYRELL BARILLASP Ot Z12.31 ENCNTR SCREEN MAMMOGRAM FOR MALIGNANT NE 07/25/2019 TYRELL BARILLASP Ot Z00.00 ENCNTR FOR GENERAL ADULT MEDICAL EXAM W/ 07/25/2019 TYRELL BARILLASP Ot Z12.2 ENCNTR SCREEN FOR MALIGNANT NEOPLASM OF 07/25/2019 TYRELL BARILLAS GUITAR TEACHER Ot Z87.891 PERSONAL HISTORY OF NICOTINE DEPENDENCE 07/25/2019 TYRELL BARILLASP Ot K76.0 FATTY (CHANGE OF) LIVER, NOT ELSEWHERE C 07/25/2019 TYRELL BARILLAS GUITAR TEACHER Ot Z90.49 ACQUIRED ABSENCE OF OTHER SPECIFIED PART 07/25/2019 TYRELL BARILLASP Ot F17.210 NICOTINE DEPENDENCE, CIGARETTES, UNCOMPL 07/25/2019 TYRELL BARILLASP Ot Z12.2 ENCNTR SCREEN FOR MALIGNANT NEOPLASM OF 07/25/2019 TYRELL BARILLASP Ot Z12.31 ENCNTR SCREEN MAMMOGRAM FOR MALIGNANT NE 07/25/2019 TYRELL BARILLASP Ot Z78.0 ASYMPTOMATIC MENOPAUSAL STATE 07/26/2019 FRANCK BARRAGAN, MARGARET P Ot 726.5 ENTHESOPATHY OF HIP 07/26/2019 FRANCK BARRAGAN, MARGARET P Ot V72.84 EXAM PRE-OPERATIVE NOS 07/26/2019 FRANCK BARRAGAN, MARGARET Pearson Ot V74.8 SCREEN-BACTERIAL DIS NEC 07/26/2019 TYRELL BARILLASP Ot R22.31 LOCALIZED SWELLING, MASS AND LUMP, RIGHT 07/26/2019 TYRELL BARILLASP Ot Z12.31 ENCNTR SCREEN MAMMOGRAM FOR MALIGNANT NE 07/26/2019 TYRELL BARILLASP Ot Z00.00 ENCNTR FOR GENERAL ADULT MEDICAL EXAM W/ 07/26/2019 TYRELL BARILLASP Ot Z12.2 ENCNTR SCREEN FOR MALIGNANT NEOPLASM OF 07/26/2019 TYRELL BARILLASP Ot Z87.891 PERSONAL HISTORY OF NICOTINE DEPENDENCE 07/26/2019 TYRELL BARILLASP Ot K76.0 FATTY (CHANGE OF) LIVER, NOT ELSEWHERE C 07/26/2019 TYRELL BARILLASP Ot Z90.49 ACQUIRED ABSENCE OF OTHER SPECIFIED PART 07/26/2019 NARGIS, TYRELL GUITAR TEACHER Ot F17.210 NICOTINE DEPENDENCE, CIGARETTES, UNCOMPL 07/26/2019 TYRELL BARILLASP Ot Z12.2 ENCNTR SCREEN FOR MALIGNANT NEOPLASM OF 07/26/2019 TYRELL BARILLASP Ot Z12.31 ENCNTR SCREEN MAMMOGRAM FOR MALIGNANT NE 07/26/2019 TYRELL BARILLAS GUITAR TEACHER Ot Z78.0 ASYMPTOMATIC MENOPAUSAL STATE 07/28/2019 TYRELL BAIRLLAS GUITAR TEACHER Ot N95.1 MENOPAUSAL AND FEMALE CLIMACTERIC STATES 07/28/2019 TYRELL BARILLAS GUITAR TEACHER Ot Z96.641 PRESENCE OF RIGHT ARTIFICIAL HIP JOINT 08/10/2019 FRANCK BARRAGAN, MARGARET P Ot 726.5 ENTHESOPATHY OF HIP 08/10/2019 FRANCK BARRAGAN, MARGARET Pearson Ot V72.84 EXAM PRE-OPERATIVE NOS 08/10/2019 FRANCK BARRAGAN, MARGARET Pearson Ot V74.8 SCREEN-BACTERIAL DIS NEC 08/10/2019 TYRELL BARILLAS GUITAR TEACHER Ot R22.31 LOCALIZED SWELLING, MASS AND LUMP, RIGHT 08/10/2019 TYRELL BARILLASP Ot Z12.31 ENCNTR SCREEN MAMMOGRAM FOR MALIGNANT NE 08/10/2019 TYRELL BARILLASP Ot Z00.00 ENCNTR FOR GENERAL ADULT MEDICAL EXAM W/ 08/10/2019 TYRELL BARILLASP Ot Z12.2 ENCNTR SCREEN FOR MALIGNANT NEOPLASM OF 08/10/2019 TYRELL BARILLASP Ot Z87.891 PERSONAL HISTORY OF NICOTINE DEPENDENCE 08/10/2019 TYRELL BARILLASP Ot K76.0 FATTY (CHANGE OF) LIVER, NOT ELSEWHERE C 08/10/2019 TYRELL BARILLAS GUITAR TEACHER Ot Z90.49 ACQUIRED ABSENCE OF OTHER SPECIFIED PART 08/10/2019 TYRELL BARILLASP Ot F17.210 NICOTINE DEPENDENCE, CIGARETTES, UNCOMPL 08/10/2019 TYRELL BARILLASP Ot Z12.2 ENCNTR SCREEN FOR MALIGNANT NEOPLASM OF 08/10/2019 TYRELL BARILLASP Ot Z12.31 ENCNTR SCREEN MAMMOGRAM FOR MALIGNANT NE 08/10/2019 NARGIS, TYRELL GUITAR TEACHER Ot N95.1 MENOPAUSAL AND FEMALE CLIMACTERIC STATES 08/10/2019 TYRELL BARILLASP Ot Z96.641 PRESENCE OF RIGHT ARTIFICIAL HIP JOINT 08/16/2019 MARGARET JUÁREZ MD Ot 726.5 ENTHESOPATHY OF HIP 08/16/2019 MARGARET JUÁREZ MD Ot V72.84 EXAM PRE-OPERATIVE NOS 08/16/2019 FRANCK BARRAGAN, MARGARET Pearson Ot V74.8 SCREEN-BACTERIAL DIS NEC 08/16/2019 TYRELL BARILLAS Ot R22.31 LOCALIZED SWELLING, MASS AND LUMP, RIGHT 08/16/2019 TYRELL BARILLAS Ot Z12.31 ENCNTR SCREEN MAMMOGRAM FOR MALIGNANT NE 08/16/2019 TYRELL BARILLAS Ot Z00.00 ENCNTR FOR GENERAL ADULT MEDICAL EXAM W/ 08/16/2019 TYRELL BARILLAS Ot Z12.2 ENCNTR SCREEN FOR MALIGNANT NEOPLASM OF 08/16/2019 TYRELL BARILLAS Ot Z87.891 PERSONAL HISTORY OF NICOTINE DEPENDENCE 08/16/2019 TYRELL BARILLAS GUITAR TEACHER Ot K76.0 FATTY (CHANGE OF) LIVER, NOT ELSEWHERE C 08/16/2019 TYRELL BARILLSAP Ot Z90.49 ACQUIRED ABSENCE OF OTHER SPECIFIED PART 08/16/2019 TYRELL BARILLAS GUITAR TEACHER Ot F17.210 NICOTINE DEPENDENCE, CIGARETTES, UNCOMPL 08/16/2019 TYRELL BARILLASP Ot Z12.2 ENCNTR SCREEN FOR MALIGNANT NEOPLASM OF 08/16/2019 TYRELL BARLILAS Ot Z12.31 ENCNTR SCREEN MAMMOGRAM FOR MALIGNANT NE 08/16/2019 TYRELL BARILLASP Ot N95.1 MENOPAUSAL AND FEMALE CLIMACTERIC STATES 08/16/2019 TYRELL BARILLASP Ot Z96.641 PRESENCE OF RIGHT ARTIFICIAL HIP JOINT 08/16/2019 JACEY SOLARES DO Ot Z01.818 ENCOUNTER FOR OTHER PREPROCEDURAL EXAMIN 08/23/2019 MARGARET JUÁREZ MD Ot 726.5 ENTHESOPATHY OF HIP 08/23/2019 MARAGRET JUÁREZ MD Ot V72.84 EXAM PRE-OPERATIVE NOS 08/23/2019 FRANCK BARRAGAN, MARGARET Pearson Ot V74.8 SCREEN-BACTERIAL DIS NEC 08/23/2019 TYRELL BARILLAS Ot R22.31 LOCALIZED SWELLING, MASS AND LUMP, RIGHT 08/23/2019 TYRELL BARILLAS Ot Z12.31 ENCNTR SCREEN MAMMOGRAM FOR MALIGNANT NE 08/23/2019 TYRELL BARILLAS Ot Z00.00 ENCNTR FOR GENERAL ADULT MEDICAL EXAM W/ 08/23/2019 TYRELL BARILLAS Ot Z12.2 ENCNTR SCREEN FOR MALIGNANT NEOPLASM OF 08/23/2019 TYRELL BARILLAS Ot Z87.891 PERSONAL HISTORY OF NICOTINE DEPENDENCE 08/23/2019 TYRELL BARILLAS Ot K76.0 FATTY (CHANGE OF) LIVER, NOT ELSEWHERE C 08/23/2019 TYRELL BARILLAS Ot Z90.49 ACQUIRED ABSENCE OF OTHER SPECIFIED PART 08/23/2019 TYRELL BARILLAS Ot F17.210 NICOTINE DEPENDENCE, CIGARETTES, UNCOMPL 08/23/2019 TYRELL BARILLAS Ot Z12.2 ENCNTR SCREEN FOR MALIGNANT NEOPLASM OF 08/23/2019 TYRELL BARILLAS Ot Z12.31 ENCNTR SCREEN MAMMOGRAM FOR MALIGNANT NE 08/23/2019 TYRELL BARILLAS Ot N95.1 MENOPAUSAL AND FEMALE CLIMACTERIC STATES 08/23/2019 TYRELL BARILLAS Ot Z96.641 PRESENCE OF RIGHT ARTIFICIAL HIP JOINT Procedures Code Description [place] [address] ROUT INE VENIPUNCTURE 06/09/2012 29256 GLUCOSE 06/09/2012 61127 LIPI D PANEL 06/09/2012 75911 PSYC H PHARM MGMT 06/16/2012 11105 PSYT X PT&/FAMILY 30 MINUTES 08/04/2012 97834 MICR O ALBUMIN-IN HOUSE 08/12/2012 71303 A1C (IN-HOUSE) 08/12/2012 88550 MICR OALBUMIN 08/13/2012 40364 ALISHA V PSYTX 20/30 MIN 08/13/2012 30536 PSYT X PT&/FAMILY 30 MINUTES 09/15/2012 52935 XRAY HIP RIGHT UNILATERAL MIN 2 VIEWS 10/28/2012 21570 PSYT X PT&/FAMILY 30 MINUTES 11/06/2012 70929 UA W / CULTURE IF INDICATED 11/06/2012 60245 A1C (IN-HOUSE) 11/22/2012 56229 UA L SERENA DIP 11/22/2012 71652 PSYT X PT&/FAMILY 30 MINUTES 03/03/2013 44392 MICR O ALBUMIN-IN HOUSE 03/28/2013 08949 A1C (IN-HOUSE) 03/28/2013 G0008 FLU ADMINISTRATION (MEDICARE ONLY) 03/28/2013 69229 MICR OALBUMIN 03/29/2013 42826 PSYT X PT&/FAMILY 30 MINUTES 04/20/2013 62119 ROUT INE VENIPUNCTURE 05/03/2013 70705 LIPI D PANEL 05/03/2013 00600 GLUCOSE 05/03/2013 39671 PSYT X PT&/FAMILY 30 MINUTES 06/01/2013 17538 BONE MINERAL DENSITY, HEEL US (IN HOUSE) 07/19/2013 21954 MAMM OGRAM, SCREENING 07/19/2013 79921 PAP SMEAR 07/19/2013 GENERAL S JACEY SOLARES 07/19/2013 Q0091 PAP SMEAR OBTAIN SMEAR 07/19/2013 36810 HEMOCCULT 07/19/2013 08811 PSYT X PT&/FAMILY 30 MINUTES 07/20/2013 72107 A1C (IN-HOUSE) 08/02/2013 25012 PSYT X PT&/FAMILY 30 MINUTES 10/21/2013 09574 ROUT INE VENIPUNCTURE 11/08/2013 78605 XRAY CHEST 2 VIEW 11/08/2013 05627 CBC 11/09/2013 46109 MYCO PLASMA ANTIBODY 11/10/2013 24008 PSYT X PT&/FAMILY 30 MINUTES 11/10/2013 93844 A1C (IN-HOUSE) 12/15/2013 92105 A1C (IN-HOUSE) 04/10/2014 69456 MICR O ALBUMIN-IN HOUSE 04/10/2014 46492 PSYT X PT&/FAMILY 30 MINUTES 05/29/2014 93148 XRAY HIP RIGHT UNILATERAL MIN 2 VIEWS 09/20/2014 84010 A1C (IN-HOUSE) 09/20/2014 10454 MICR O ALBUMIN-IN HOUSE 09/20/2014 33910 MICR OALBUMIN 09/21/2014 Margaret Sheridan 11/06/2014 79668 PSYT X PT&/FAMILY 30 MINUTES 11/06/2014 20144 PSYT X PT&/FAMILY 30 MINUTES 11/07/2014 Results Test Result Range Methicillin resistant Staphylococcus aur eus (MRSA) screening culture - 06/11/16 06:10 Methicillin resistant Staphylococcus aureus (MRSA) scr eening culture NEG NRG Capillary blood glucose measurement by g lucometer (mass/volume) - 06/11/16 06:16 Capillary blood glucose measurement by glucometer (mas s/volume) 102 mg/dL 70-110 LIPASE - 09/07/17 17:42 LIPASE 21 U/L 7-60 AMYLASE - 09/07/17 17:42 AMYLASE 21 U/L 21-101 LIPID PANEL - 12/23/17 09:17 CHOLESTEROL, TOTAL 203 mg/dL <200 HDL CHOLESTEROL 85 mg/dL >50 TRIGLYCERIDES 86 mg/dL <150 LDL-CHOLESTEROL 100 mg/dL (calc) NRG CHOL/HDLC RATIO 2.4 (calc) <5.0 NON HDL CHOLESTEROL 118 mg/dL (calc) <13 0 GLUCOSE, SERUM - 12/23/17 09:17 GLUCOSE 107 mg/dL 65-99 CRP - 12/17/18 14:47 C-REACTIVE PROTEIN 8.8 mg/L <8.0 CULTURE, URINE - 03/30/19 11:49 CULTURE, URINE, ROUTINE SEE NOTE NRG Chromium, Plasma - 04/25/19 17:35 Chromium, Plasma 0.3 ug/L 0.1-2.1 Hayden, Plasma - 04/25/19 17:35 Hayden, Plasma None Detected ug/L 0.0-0. 9 Capillary blood glucose measurement by g lucometer (mass/volume) - 08/23/19 07:32 Capillary blood glucose measurement by glucometer (mas s/volume) 108 mg/dL 70-110 Encounters ACCT No. Visit Date/Time Discharge Status Pt. Type Provider Facility Loc./Unit Complaint [id number] 07/29/2018 09:12:48 07/29/2018 23:59: 59 [facility] Outpatient Jean-Pierre Mejía [id number] 06/17/2018 12:55:42 06/17/2018 23:59: 59 [facility] Outpatient Damaris Ordaz [id number] 05/25/2018 14:22:47 05/25/2018 23:59: 59 [facility] Outpatient AlfonzoJean-Pierre arevalo [id number] 05/03/2018 14:17:09 05/03/2018 23:59: 59 [facility] Outpatient AlfonzoJean-Pierre arevalo [id number] 03/08/2018 15:34:11 03/08/2018 23:59: 59 [facility] Outpatient Margaret Lyons [id number] 01/14/2018 14:51:40 01/14/2018 23:59: 59 [facility] Outpatient AlfonzoJean-Pierre arevalo [id number] 12/30/2017 10:50:13 12/30/2017 23:59: 59 [facility] Outpatient AlfonzoJean-Pierre arevalo [id number] 10/27/2017 10:17:06 10/27/2017 23:59: 59 [facility] Outpatient AlfonzoJean-Pierre arevalo [id number] 10/16/2017 10:11:52 10/16/2017 23:59: 59 [facility] Outpatient AlfonzoJean-Pierre arevalo [id number] 09/24/2017 14:12:01 09/24/2017 23:59: 59 [facility] Outpatient AlfonzoAxel arevaloa [id number] 11/06/2014 15:31:00 11/06/2014 23:59: 59 [facility] Outpatient MELODY ALCANTARA PSYD [id number] 10/27/2014 12:54:00 10/27/2014 23:59: 59 [facility] Outpatient CHERYL GARCÍA APRN [id number] 10/26/2014 13:58:00 10/26/2014 23:59: 59 [facility] Outpatient SHARON JEFFERSON APRN [id number] 09/20/2014 10:53:00 09/20/2014 23:59: 59 [facility] Outpatient TYRELL BARILLAS APRN [id number] 09/20/2014 10:53:00 09/20/2014 23:59: 59 [facility] Outpatient TYRELL BARILLAS APRN [id number] 09/12/2014 13:35:00 09/12/2014 23:59: 59 CLS Outpatient CHERYL GARCÍA APRN [id number] 05/29/2014 13:02:00 05/29/2014 23:59: 59 CLS Outpatient MELODY ALCANTARA PSYD [id number] 04/13/2014 09:59:00 04/13/2014 23:59: 59 CLS Outpatient CHERYL GARCÍA APRN [id number] 04/13/2014 09:59:00 04/13/2014 23:59: 59 CLS Outpatient CHERYL GARCÍA APRN [id number] 04/10/2014 10:42:00 04/10/2014 23:59: 59 CLS Outpatient TYRELL BARILLAS APRN [id number] 03/16/2014 11:46:00 03/16/2014 23:59: 59 CLS Outpatient CHERYL GARCÍA APRN [id number] 03/16/2014 11:46:00 03/16/2014 23:59: 59 CLS Outpatient CHERYL GARCÍA APRN [id number] 12/15/2013 16:28:00 12/15/2013 23:59: 59 CLS Outpatient TYRELL BARILLAS APRN [id number] 11/10/2013 13:09:00 11/10/2013 23:59: 59 CLS Outpatient LINUS LEWIS MD [id number] 11/08/2013 15:15:00 11/08/2013 23:59: 59 CLS Outpatient SOFYA COIL CONNECTOR REPAIRERSELMA Aranda [id number] 10/11/2013 14:52:00 10/11/2013 23:59: 59 CLS Outpatient MELODY ALCANTARA PSYD [id number] 10/11/2013 14:50:00 10/11/2013 23:59: 59 CLS Outpatient KYLE GARCÍA APRNETTE [id number] 08/03/2013 12:46:00 08/03/2013 23:59: 59 CLS Outpatient KYLE GARCÍA APRNETTE [id number] 08/03/2013 12:46:00 08/03/2013 23:59: 59 CLS Outpatient LINUS LEWIS MD [id number] 07/20/2013 14:22:00 07/20/2013 23:59: 59 CLS Outpatient MELODY ALCANTARA PSYD [id number] 07/19/2013 14:27:00 07/19/2013 23:59: 59 CLS Outpatient NELIDA JESSI BUTLER [id number] 07/19/2013 14:27:00 07/19/2013 23:59: 59 CLS Outpatient NELIDA JESSI BUTLER [id number] 05/31/2013 14:44:00 05/31/2013 23:59: 59 CLS Outpatient MELODY ALCANTARA PSYD [id number] 05/31/2013 13:59:00 05/31/2013 23:59: 59 CLS Outpatient TESSA WEN APRN Abrahan [id number] 05/03/2013 08:36:00 05/03/2013 23:59: 59 CLS Outpatient ALVA WEN APRNAGUEDA Gauthier [id number] 04/19/2013 13:05:00 04/19/2013 23:59: 59 CLS Outpatient MELODY ALCANTARA PSYD [id number] 04/01/2013 13:19:00 04/01/2013 23:59: 59 CLS Outpatient ALYSON ASHRAF DO [id number] 09/15/2012 14:13:00 09/15/2012 23:59: 59 CLS Outpatient MELODY ALCANTARA PSYD [id number] 09/07/2012 13:10:00 09/07/2012 23:59: 59 CLS Outpatient [id number] 08/12/2012 13:24:00 08/12/2012 23:59: 59 CLS Outpatient TYRELL BARILLAS APRN S [id number] 08/12/2012 13:24:00 08/12/2012 23:59: 59 CLS Outpatient TYRELL BARILLAS APRN S [id number] 08/02/2012 14:04:00 08/02/2012 23:59: 59 CLS Outpatient MELODY ALCANTARA PSYD [id number] 06/16/2012 14:57:00 06/16/2012 23:59: 59 CLS Outpatient ALYSON ASHRAF DO [id number] 04/30/2012 00:00:00 04/30/2012 23:59:5 9 CLS Outpatient MELODY ALCANTARA PSYD [id number] 03/17/2013 14:18:00 Document Registration [id number] 03/03/2013 13:39:00 Document Registration [id number] 12/31/2012 13:13:00 Document Registration [id number] 11/06/2012 10:34:00 Document Registration [id number] 10/28/2012 09:46:00 Document Registration [id number] 10/28/2012 09:46:00 Document Registration [id number] 04/28/2019 18:06:00 Document Registration [id number] 08/23/2019 07:05:00 020 10:00:00 DIS Outpatient JACEY SOLARES DO [facility] ENDO +COLOGUARD/GERD/EPIGAST AD ABD PAIN [id number] 08/16/2019 05:40:00 12:21:00 DIS Outpatient JACEY SOLARES DO [facility] PREOP COLONOSCOPY/EGD [id number] 07/26/2019 08:45:00 23:59:59 CLS Outpatient TYRELL BARILLAS [facility] RAD POST MENOPAUSAL [id number] 07/04/2019 14:06:00 23:59:59 CLS Outpatient TYRELL BARILLAS [facility] RAD SCREENING, LUNG CA SCRE ENING [id number] 09/11/2017 06:57:00 23:59:59 CLS Outpatient TYRELL BARILLAS [facility] RAD R10.11 RUQ ABDOMINAL PA IN [id number] 08/19/2016 12:14:00 23:59:59 CLS Outpatient TYRELL BARILLAS [facility] RAD MEDICARE WELCOME EXAM [id number] 07/08/2016 15:14:00 23:59:59 CLS Outpatient TYRELL BARILLAS [facility] RAD MEDICARE WELCOME EXAM [id number] 06/13/2016 13:54:00 23:59:59 CLS Preadmit TYRELL BARILLAS [facility] REHAB LT GROIN PAIN [id number] 06/12/2016 09:10:00 23:59:59 CLS Outpatient TYRELL BARILLAS [facility] RAD SCREENING [id number] 06/11/2016 05:59:00 23:59:59 CLS Outpatient MARGARET JUÁREZ MD [facility] SDC OSTEOARTHRITIS RT HIP [id number] 06/04/2016 12:13:00 12:52:00 DIS Outpatient MARGARET JUÁREZ MD [facility] PREOP OSTEOARTHRITIS RT HIP [id number] 12/26/2015 22:53:00 016 00:49:00 DIS Emergency ROCIO WELDON DO [facility] ER SORE THROAT/MIGRAINE/CO UGHING/CHEST PAIN [id number] 11/02/2015 07:11:00 016 13:35:00 DIS Outpatient BHARGAV TAVARES MD [facility] SDC LIPOMA RIGHT SHOULDER [id number] 10/30/2015 09:34:00 016 10:15:00 DIS Outpatient BHARGAV TAVARES MD [facility] PREOP RIGHT SHOULDER LIPOMA [id number] 08/15/2015 11:18:00 016 23:59:59 CLS Outpatient TYRELL BARILLAS [facility] RAD MASS RIGHT SHOULDER [id number] 12/06/2014 06:00:00 015 10:25:00 DIS Outpatient MARGARET JUÁREZ MD [facility] RIGHT HIP IMPINGEMENT [id number] 11/29/2014 09:39:00 015 23:59:59 CLS Outpatient MARGARET JUÁREZ MD [facility] PREOP RIGHT HIP IMPINGEMENT [id number] 10/19/2013 07:17:00 014 23:59:59 CLS Outpatient JACEY SOLARES DO [facility] PREOP SCREENING [id number] 07/22/2013 13:10:00 014 23:59:59 CLS Outpatient JESSI KRAUSE APRN [facility] RAD SCREENING [id number] 03/24/2013 08:07:00 013 11:08:00 DIS Outpatient SHARON JEFFERSON GUITAR TEACHER [facility] REHAB OA R HIP [id number] 11/29/2014 09:37:00 Document Registration [id number] 11/29/2014 09:37:00 Document Registration [id number] 08/01/2012 19:05:00 Document Registration [id number] 05/16/2011 08:16:00 Document Registration [id number] 04/08/2010 08:31:00 Document Registration [id number] 04/28/2019 13:06:00 Document Registration [id number] 07/15/2019 14:30:00 07/15/2019 23:59: 59 CLS Outpatient TYRELL BARILLAS APRN [facility] [id number] 03/30/2019 11:40:00 Document Registration [id number] 12/17/2018 14:40:00 Document Registration [id number] 12/23/2017 09:00:00 Document Registration [id number] 09/07/2017 16:40:00 Document Registration
== END 2019-08-23 10:00 | disposition home or self-care (01) ==
LOC: ENDO 07:05
PROVIDERS: ATTEND Surgery
DX: D12.3 Benign neoplasm of transverse colon (principal); D12.0 Benign neoplasm of cecum; K63.5 Polyp of colon; K29.70 Gastritis, unspecified, without bleeding; K44.9 Diaphragmatic hernia without obstruction or gangrene; K57.30 Diverticulosis of large intestine without perforation or abscess without bleeding; J44.9 Chronic obstructive pulmonary disease, unspecified; I10 Essential (primary) hypertension; E11.9 Type 2 diabetes mellitus without complications; M19.91 Primary osteoarthritis, unspecified site; F17.210 Nicotine dependence, cigarettes, uncomplicated; E78.5 Hyperlipidemia, unspecified; M06.9 Rheumatoid arthritis, unspecified; F31.9 Bipolar disorder, unspecified; F41.9 Anxiety disorder, unspecified; E66.9 Obesity, unspecified; Z68.33 Body mass index [BMI] 33.0-33.9, adult; Z79.84 Long term (current) use of oral hypoglycemic drugs; Z79.899 Other long term (current) drug therapy
CPT/HCPCS: 82962; 88305

== ENCOUNTER 2020-04-13 14:31 | Emergency (ER) | payer MEDICARE, MEDICAID ==
[~2020-04-13] VITALS: Ht 170.2 cm; Wt 90.7 kg
[~2020-04-13 14:31] MED LIST changes: -MONT10TA24 PO; +MONT10TA26 PO; -PANT40TA3 PO; +PANT40TA52 PO
--- NOTE | 2020-04-13 15:03 | ED GU-Female ---
General Chief Complaint: Female Reproductive Stated Complaint: VAGINAL PAIN;POSSIBLE PROLAPSE Source: patient Exam Limitations: no limitations History of Present Illness Date Seen by Provider: Apr 13, 2020 Time Seen by Provider: 14:50 Initial Comments Patient is a 69-year-old female who presents to the emergency department today with a chief complaint of concern for possible uterine prolapse. Patient states that she has had significant discomfort over the past several days. She states her daughter is a nurse and advised her that she might have uterine prolapse. The patient states that she does have some burning with urination. She states she feels something "down there" rubbing on her pads in her underwear and it is very uncomfortable. Patient is a G3, P3 with 3 spontaneous vaginal deliveries. She is never had issues like this before. She denies significant amounts of incontinence, she states she is able to void on her own. No report of urinary retention. No bleeding noted. She called her primary care physician's office today and she was not and so she came to the emergency room to be evaluated. All other review of systems reviewed and negative except as stated. Timing/Duration: week Severity/Quality: moderate, burning Location: vaginal, urethral Activities at Onset: none Prior Genitourinary Problems: none Associated Symptoms: dysuria; No fever/chills; loss of bladder control (She does have stress incontinence) Allergies and Home Medications Allergies Coded Allergies: No Known Drug Allergies (Unverified , 08/16/19) Home Medications Albuterol Sulfate 8.5 Gm Hfa.aer.ad, 2 PUFF IH Q6H PRN for WHEEZING, (Reported) Budesonide/Formoterol Fumarate 10.2 Gm Hfa.aer.ad, 2 PUFF IH BID, (Reported) Calcium Citrate/Vitamin D3 1 Each Tablet, 1 EACH PO DAILY, (Reported) Duloxetine HCl 60 Mg Capsule.dr, 60 MG PO BID, (Reported) Loratadine 10 Mg Tablet, 10 MG PO HS, (Reported) Metformin HCl 500 Mg Tablet, 500 MG PO BID, (Reported) Metoprolol Tartrate 25 Mg Tablet, 25 MG PO BID, (Reported) Montelukast Sodium 10 Mg Tablet, 10 MG PO HS, (Reported) Mv-Mn/FA/Coq10/Lycopene/Lutein 1 Each Tablet, 1 EACH PO DAILY, (Reported) Pantoprazole Sodium 40 Mg Tablet.dr, 40 MG PO DAILY, (Reported) Rizatriptan Benzoate 10 Mg Tablet, 10 MG PO PRN, (Reported) Simvastatin 10 Mg Tablet, 10 MG PO HS, (Reported) Review of Systems Review of Systems Constitutional: no symptoms reported EENTM: no symptoms reported Respiratory: no symptoms reported Cardiovascular: no symptoms reported Gastrointestinal: no symptoms reported Genitourinary: burning, other (Vaginal discomfort) : No Musculoskeletal: joint pain (Chronic hip and right knee pain) Skin: no symptoms reported All Other Systemes Reviewed Negative Unless Noted: Yes Past Vamsyuk-Lmxdyl-Enxnnr Hx Patient Social History Type Used: Cigarettes 2nd Hand Smoke Exposure: Yes Recent Hopitalizations: No Immunizations Up To Date Tetanus Booster (TDap): Unknown Date of Pneumonia Vaccine: May 04, 2016 Date of Influenza Vaccine: Apr 18, 2019 Seasonal Allergies Seasonal Allergies: Yes Past Medical History Surgeries: Yes (ANKLE SURGERY, KNEE SCOPE WITH SCRAPING, HIP INJECTION, R THR AND REVISION) Gallbladder, Orthopedic Respiratory: Yes Asthma, COPD Currently Using CPAP: No Currently Using BIPAP: No Cardiac: Yes High Cholesterol, Hypertension Neurological: Yes Headaches /Migraines Reproductive Disorders: No Sexually Transmitted Disease: No HIV/AIDS: No Genitourinary: No Gastrointestinal: Yes Gastroesophageal Reflux, Diverticulosis, Chronic Diarrhea, Irritable Bowel Musculoskeletal: Yes (LEFT ANKLE) Arthritis, Fractures Endocrine: Yes Diabetes, Non-Insulin dep HEENT: Yes (GLASSES) Loss of Vision: Denies Hearing Impairment: Denies Cancer: No Psychosocial: Yes Anxiety, Bipolar, Depression Integumentary: No Blood Disorders: No Adverse Reaction/Blood Tranf: No (N/A) Physical Exam Vital Signs Vital Signs - First Documented 04/13/20 14:45 Temp 37.0 Pulse 74 Resp 20 B/P (MAP) 137/97 (110) Pulse Ox 95 O2 Delivery Room Air Capillary Refill : Height, Weight, BMI Height: 5'6.00" Weight: 199lbs. 0.0oz. 90.910670ay; 32.69 BMI Method:Stated General Appearance: WD/WN, no apparent distress Cardiovascular: regular rate, rhythm, no murmur Respiratory: lungs clear, normal breath sounds, no respiratory distress, no ac cessory muscle use Gastrointestinal: normal bowel sounds, soft Pelvic: normal external exam, no masses, other (Patient has obvious irritation at the urethral meatus with palpable bladder prolapse. Uterine cervix is visualized and is normal. No tenderness on exam in the vaginal vault. No bleeding noted) Extremities: normal range of motion, normal inspection, no pedal edema Neurologic/Psychiatric: alert, normal mood/affect, oriented x 3 Skin: normal color, warm/dry Progress/Results/Core Measures Suspected Sepsis SIRS Temperature: Pulse: Respiratory Rate: Blood Pressure / Mean: Results/Orders Lab Results Laboratory Tests Test 04/13/20 15:00 Range/Units Urine Color YELLOW Urine Clarity CLEAR Urine pH 6.0 5-9 Urine Specific [place] 1.015 L 1.016-1.022 Urine Protein NEGATIVE NEGATIVE Urine Glucose (UA) NEGATIVE NEGATIVE Urine Ketones NEGATIVE NEGATIVE Urine Nitrite NEGATIVE NEGATIVE Urine Bilirubin NEGATIVE NEGATIVE Urine Urobilinogen 0.2 < = 1.0 MG/DL Urine Leukocyte Esterase 2+ H NEGATIVE Urine RBC (Auto) 1+ H NEGATIVE Urine RBC RARE /HPF Urine WBC 5-10 H /HPF Urine Squamous Epithelial Cells 5-10 /HPF Urine Crystals NONE /LPF Urine Bacteria TRACE /HPF Urine Casts NONE /LPF Urine Mucus NEGATIVE /LPF Urine Culture Indicated YES My Orders Orders - ARTUR WESTBROOK MD Ua Culture If Indicated (04/13/20 15:05) Urine Culture (04/13/20 15:00) Vital Signs/I&O 04/13/20 14:45 Temp 37.0 Pulse 74 Resp 20 B/P (MAP) 137/97 (110) Pulse Ox 95 O2 Delivery Room Air Capillary Refill : Progress Note : Time: 15:02 Progress Note 69-year-old female presents with a chief complaint of concern for uterine prol apse. Evaluation today includes a physical exam with pelvic exam. Patient has obvious anterior wall weakness with prolapse of the bladder noted on Valsalva. She has a very irritated and erythematous urethral meatus. She tolerated the exam well. We will check a urinalysis to make sure she does not have a concomitant urinary tract infection. She is encouraged to follow-up with her primary care physician and subsequent NETWORK CONSULTANT referral. Patient states that she cannot remember the last time she had a pelvic exam by e business manager. Patient is comfortable with the plan of care all questions are sought and answered and she is stable for discharge once her urinalysis is complete 1528 Patient's urinalysis shows trace bacteria a smidge bit of leukocyte esterase and some epithelial cells. At this time as the patient does not have urinary urgency or frequency we will wait for the urine to culture and she can follow this up with her primary care nurse practitioner. Patient verbalized understanding all questions were sought and answered and she is stable for discharge Counseling-Symptomatic: 3-10 Minutes Discussed Options Including: Nicotine Patch (Patient states she is already obtained nicotine patches for smoking cessation.) Follow-up with PCP to: Discuss Further Options Departure Impression Primary Impression: Female bladder prolapse, acquired Additional Impression: Urethritis, unspecified Disposition: 01 HOME, SELF-CARE Condition: Stable Departure-Patient Inst. Decision time for Depature: 15:27 Referrals: [facility] (PCP) Primary Care Physician TYRELL BARILLAS (Family) Primary Care Physician Patient Instructions: Cystocele and Rectocele Repair, Urethritis Add. Discharge Instructions: Please continue your home daily medications as prescribed. You can try some K-Y jelly in the area of discomfort to help lubricate and soothe the area. Please follow-up with your primary care practitioner for further management and referral to a e business manager. Return to the emergency department for any increased pain especially vaginal bleeding, inability to urinate or any other emergent concerns. All discharge instructions reviewed with patient and/or family. Voiced understanding. ARTUR WESTBROOK MD Apr 13, 2020 15:03
[2020-04-13 15:14] LABS: BILIRUBIN,URINE NEGATIVE (NEGATIVE); CLARITY,URINE CLEAR; COLOR,URINE YELLOW; GLUCOSE, URINE (UA) NEGATIVE (NEGATIVE); KETONES,URINE NEGATIVE (NEGATIVE); LEUKOCYTE ESTERASE ,URINE 2+ (NEGATIVE); NITRITE,URINE NEGATIVE (NEGATIVE); PROTEIN,URINE NEGATIVE (NEGATIVE)
[2020-04-13 15:21] LABS: BACTERIA,URINE TRACE /HPF; RBC,URINE RARE /HPF
[2020-04-13 15:38] VITALS: BP 137/97
== END 2020-04-13 15:38 | disposition home or self-care (01) ==
LOC: EDUNIT# 14:31 → ER 14:33
DX: N34.2 Other urethritis (principal); N81.10 Cystocele, unspecified; I10 Essential (primary) hypertension; E78.00 Pure hypercholesterolemia, unspecified; J44.9 Chronic obstructive pulmonary disease, unspecified; K21.9 Gastro-esophageal reflux disease without esophagitis; G43.909 Migraine, unspecified, not intractable, without status migrainosus; F41.9 Anxiety disorder, unspecified; F32.9 Major depressive disorder, single episode, unspecified; E11.9 Type 2 diabetes mellitus without complications; Z77.22 Contact with and (suspected) exposure to environmental tobacco smoke (acute) (chronic); Z79.84 Long term (current) use of oral hypoglycemic drugs
CPT/HCPCS: 81000; 87088; 99282

== ENCOUNTER → 2020-05-30 | Outpatient (CLI) | payer MEDICARE, MEDICAID ==
--- NOTE | 2020-05-30 14:45 | Diagnostic Imaging Report ---
INDICATION: Pelvic mass. EXAMINATION: Complete transabdominal and transvaginal pelvic ultrasound was performed. In addition, limited pelvic Doppler was performed. FINDINGS: The uterus is anteverted, measuring 5.1 x 2.9 x 5.5 cm. No myometrial mass is detected. Endometrium is 2 mm in thickness. Areas of increased echogenicity adjacent to the endometrium are noted which may represent calcifications. The right ovary measures 1.0 x 0.6 x 1.1 cm and the left ovary measures 2.0 x 0.8 x 1.4 cm. There is blood flow to both ovaries. No adnexal mass or free fluid is detected. IMPRESSION: Unremarkable pelvic ultrasound. Dictated by: Dictated on workstation # [id number]
== END ==
LOC: RAD 13:30
PROVIDERS: ATTEND Obstetrics & Gynecology
DX: R19.00 Intra-abdominal and pelvic swelling, mass and lump, unspecified site (principal)
CPT/HCPCS: 76830; 76856

== ENCOUNTER 2020-07-05 05:35 | Outpatient (RCR) | payer MEDICARE, MEDICAID ==
[~2020-07-05] VITALS: Ht 170.2 cm; Wt 90.9 kg
[~2020-07-05 05:35] MED LIST changes: +DICY20TA10 PO; +DOCU100T7 PO; -MONT10TA26 PO; +MONT10TA97 PO
== END 2020-07-05 09:13 | disposition home or self-care (01) ==
LOC: PREOP 05:35
PROVIDERS: ATTEND Obstetrics & Gynecology
DX: Z01.812 Encounter for preprocedural laboratory examination (principal); N81.2 Incomplete uterovaginal prolapse; N39.3 Stress incontinence (female) (male); Z20.828 Contact with and (suspected) exposure to other viral communicable diseases
CPT/HCPCS: 87635

== ENCOUNTER 2020-07-20 05:30 | Outpatient (RCR) | payer MEDICARE, MEDICAID ==
[2020-07-23] MEDS ORDERED: ceFAZolin INJECTION 1,000 MG in WATER (STERILE) FOR INJECTION 10 ML IV ONE (16:45)
[2020-07-23] MEDS ORDERED: metroNIDAZOLE 500MG/100ML IVPB 100 ML IV ONE (16:45)
== END 2020-07-20 11:05 | disposition home or self-care (01) ==
LOC: PREOP 05:30
PROVIDERS: ATTEND Obstetrics & Gynecology
DX: Z01.812 Encounter for preprocedural laboratory examination (principal); N81.2 Incomplete uterovaginal prolapse; Z20.822 Contact with and (suspected) exposure to COVID-19
CPT/HCPCS: 87635

== ENCOUNTER 2020-07-24 06:11 | Day surgery (SDC) | payer MEDICARE, MEDICAID ==
[2020-07-24] VITALS (11 sets, daily range): BP systolic 106–138; BP diastolic 50–79
[~2020-07-24] VITALS: Ht 170.2 cm; Wt 90.9 kg
[2020-07-24] MEDS ORDERED: ONDANSETRON 4 MG/2 ML (SDV) Z0FRAN ONE ×2 (06:50→06:54)
[2020-07-24] MEDS: LACTATED RINGERS 1,000 ML IV PRN ×4 (06:50→17:08)
[2020-07-24] MEDS ORDERED: ROCURONIUM 10 MG/ML 5 ML SYRINGE IV ONE (06:54)
[2020-07-24] MEDS ORDERED: fentaNYL INJECTION 100 MCG/2 ML AMP ONE (06:54)
[2020-07-24] MEDS ORDERED: proPOfol 200 MG/20 ML (DIPRIVAN) VIAL IV ONE (06:54)
[2020-07-24] MEDS ORDERED: LIDOCAINE PF 2% 5 ML (XYLOCAINE) VIAL ONE (06:54)
[2020-07-24] MEDS ORDERED: MIDAZOLAM 2 MG/2 ML (VERSED) VIAL ONE (06:54)
[2020-07-24] MEDS ORDERED: ONDANSETRON 4 MG/2 ML (SDV) Z0FRAN IV ONE (07:00)
[2020-07-24] MEDS ORDERED: FAMOTIDINE 20MG/2ML IV (PEPCID) IV ONE (07:00)
[2020-07-24] MEDS ORDERED: NS (IVPB) 100 ML ONE (07:13)
[2020-07-24] MEDS ORDERED: LIDOCAINE/EPI 1%-1:100,000 (XYLOCAINE) 50 ML ONE (07:13)
[2020-07-24] MEDS ORDERED: VASOPRESSIN INJECTION 20 UNIT/ML VIAL ONE (07:14)
[2020-07-24] MEDS ORDERED: ESTRADIOL VAGINAL CREAM 42.5 GM (ESTRACE) VG ONE (07:15)
[2020-07-24] MEDS ORDERED: ceFAZolin INJECTION 1,000 MG ONE (07:59)
[2020-07-24] MEDS ORDERED: WATER (STERILE) FOR INJECTION 10 ML ONE (07:59)
[2020-07-24] MEDS ORDERED: metroNIDAZOLE 500MG/100ML IVPB 100 ML ONE (07:59)
[2020-07-24] MEDS ORDERED: ceFAZolin INJECTION 1,000 MG in WATER (STERILE) FOR INJECTION 10 ML IV ONE (08:00)
[2020-07-24] MEDS ORDERED: metroNIDAZOLE 500MG/100ML IVPB 100 ML IV ONE (08:00)
--- NOTE | 2020-07-24 08:10 | History & Physical-Surgical ---
HPO-Surgical History of Present Illness Chief Complaint: Incomplete urogenital prolapse, cystocele, mixed incontinence Updated H&P Surgery was postponed from 07/03/2020 due to patient personal illness. She has rescheduled to 07/24/2020 and no change in PMH, PSH, HPI, Meds Diagnosis/Surgical Indication: incomplete urogenital prolapse Procedure: RaTH, BSO, anterior posterior colporrhaphy, Solyx pubovaginal sling Date of Surgery: Jul 24, 2020 Weight (Pounds): 199 Weight (Ounces): 0.0 Height (Feet): 5 Height (Inches): 6.00 Allergies and Home Medications Allergies Coded Allergies: No Known Drug Allergies (Unverified , 07/24/20) Home Medications Albuterol Sulfate 8.5 Gm Hfa.aer.ad, 2 PUFF IH Q6H PRN for WHEEZING, (Reported) Budesonide/Formoterol Fumarate 10.2 Gm Hfa.aer.ad, 2 PUFF IH BID, (Reported) Calcium Citrate/Vitamin D3 1 Each Tablet, 1 EACH PO DAILY, (Reported) Dicyclomine HCl 20 Mg Tablet, 20 MG PO TID, (Reported) Docusate Sodium 100 Mg Tablet, 100 MG PO DAILY, (Reported) Duloxetine HCl 60 Mg Capsule.dr, 60 MG PO BID, (Reported) Loratadine 10 Mg Tablet, 10 MG PO HS, (Reported) Metformin HCl 500 Mg Tablet, 500 MG PO BID, (Reported) Metoprolol Tartrate 25 Mg Tablet, 25 MG PO BID, (Reported) Montelukast Sodium 10 Mg Tablet, 10 MG PO HS, (Reported) Mv-Mn/FA/Coq10/Lycopene/Lutein 1 Each Tablet, 1 EACH PO DAILY, (Reported) Pantoprazole Sodium 40 Mg Tablet.dr, 40 MG PO DAILY, (Reported) Rizatriptan Benzoate 10 Mg Tablet, 10 MG PO PRN, (Reported) Simvastatin 10 Mg Tablet, 10 MG PO HS, (Reported) Patient Home Medication List Home Medication List Reviewed: Yes Past Izouopd-Tdrtxw-Bxgfqq Hx Patient Social History Marrital Status: Smoking Status: Current Everyday Smoker 2nd Hand Smoke Exposure: Yes Recent Hopitalizations: No Immunizations Up To Date Tetanus Booster (TDap): Unknown Date of Pneumonia Vaccine: May 04, 2016 Date of Influenza Vaccine: Apr 18, 2020 Seasonal Allergies Seasonal Allergies: Yes Surgeries Yes (LANKLE fx, KNEE SCOPE WITH SCRAPING, HIP INJECTION, R THR AND REVISION) Gallbladder, Orthopedic Respiratory Yes Currently Using CPAP: No Currently Using BIPAP: No Cardiovascular Yes High Cholesterol, Hypertension Neurological No Headaches /Migraines Reproductive System Hx Reproductive Disorders: No Sexually Transmitted Disease: No HIV/AIDS: No Genitourinary Yes (FRANSISCO) Gastrointestinal Yes Gastroesophageal Reflux, Diverticulosis, Chronic Diarrhea, Irritable Bowel Musculoskeletal Yes (LEFT ANKLE) Arthritis, Fractures Endocrine History of Endocrine Disorders: Yes (prediabetic) Endocrine Disorders: Diabetes, Non-Insulin dep HEENT History of HEENT Disorders: Yes (GLASSES) Loss of Vision: Denies Hearing Impairment: Denies Cancer No Psychosocial History of Psychiatric Problem: Yes Behavioral Health Disorders: Anxiety, Bipolar, Depression Integumentary History of Skin or Integumenta: No Blood Transfusions History of Blood Disorders: No Adverse Reaction to a Blood Tr: No (N/A) Exam Vital Signs Vital Signs 07/24/20 07:00 Temp 35.9 Pulse 79 Resp 18 B/P (MAP) 138/77 (97) Pulse Ox 94 O2 Delivery Room Air Capillary Refill : Labs Laboratory Tests Test 07/24/20 06:36 Range/Units Glucometer 119 H 70-110 MG/DL General Appearance: Alert, Oriented X3, Cooperative Respiratory: Clear to Auscultation, Normal Air Movement Cardiovascular: Regular Rate, Normal S1, Normal S2 Assessment/Plan Assessment and Plan 1. incomplete urogenital prolapse 2. Cystocele 3. Mixed incontinence Plan RaTH, BSO Ant/post colporrhaphy and PV sling Risks of surgery, including, but not limited to, bleeding, infection, injury to bowel, bladder and ureter has been explained to the patient who understands and agrees Proper consents have been signed. she has trialed and failed conservative isabella atment with a pessary. She is NPO except sip with her beta ana paula today. Prophylactic antibiotics and SCDs are used. Admission Diagnosis Admission Status: Observation (23 hour) ZAN JEFFERSON DO Jul 24, 2020 08:10
[2020-07-24 08:11] LABS: HEMOGLOBIN 13.6 g/dL (11.5-16.0); MEAN PLATELET VOLUME 11.3 fL (9.0-12.2); WHITE BLOOD COUNT 7.6 10^3/uL (4.3-11.0)
[2020-07-24 08:16] LABS: CLARITY,URINE SL CLOUDY; COLOR,URINE YELLOW; GLUCOSE, URINE (UA) NEGATIVE (NEGATIVE); KETONES,URINE NEGATIVE (NEGATIVE); LEUKOCYTE ESTERASE ,URINE NEGATIVE (NEGATIVE); NITRITE,URINE NEGATIVE (NEGATIVE); PROTEIN,URINE NEGATIVE (NEGATIVE)
[2020-07-24 08:44] LABS: BACTERIA,URINE TRACE /HPF; RBC,URINE 0-2 /HPF; WBC,URINE 0-2 /HPF
[2020-07-24 08:51] LABS: BILIRUBIN,URINE 1+ (NEGATIVE)
[2020-07-24] MEDS ORDERED: NEOSTIGMINE 3 MG/3 ML VIAL ONE (09:49)
[2020-07-24] MEDS ORDERED: GLYCOPYRROLATE 0.2 MG/ML (ROBINUL) 2 ML VIAL ONE (09:49)
[2020-07-24] MEDS ORDERED: SEVOFLURANE (ULTANE) 15 ML INHAL SOLN ONE ×6 (09:54→10:51)
[2020-07-24] MEDS ORDERED: CHLORASEPTIC LOZENGE MM PRN (11:00)
[2020-07-24] MEDS ORDERED: ONDANSETRON 4 MG (ZOFRAN) ORAL DISSOLVE TAB PO PRN (11:00)
[2020-07-24] MEDS ORDERED: LACTATED RINGERS 1,000 ML IV SCH (11:00)
[2020-07-24] MEDS ORDERED: morphine INJ 4 MG/ML 1 ML (VIAL/SYRINGE) IVP PRN (11:00)
--- NOTE | 2020-07-24 11:00 | Operative Report ---
Operative Report Date of Procedure/Surgery Jul 24, 2020 Surgeon (s) ZAN JEFFERSON DO Housekeeper/Custodian/Laundry Worker (s): NA Post-Operative Diagnosis incomplete uterovaginal prolapse Mixed incontinence; possible ISD cystocele Procedure Performed RaTH, BSO anterior colporrhaphy Solyx pubovaginal sling perineorrhaphy Description of Procedure Anesthesia Type: General Estimated blood loss (mL): 200 Specimen(s) collected/removed uterus, bilateral tubes and ovaries Findings of the Procedure small uterus with 2+ prolapse 3+ cystocele (high) rotation of urethra, but also spontaneous leak possibly consistent with 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 Allergies and Home Medications Allergies Coded Allergies: No Known Drug Allergies (Unverified , 07/24/20) Home Medications Albuterol Sulfate 8.5 Gm Hfa.aer.ad, 2 PUFF IH Q6H PRN for WHEEZING, (Reported) Budesonide/Formoterol Fumarate 10.2 Gm Hfa.aer.ad, 2 PUFF IH BID, (Reported) Calcium Citrate/Vitamin D3 1 Each Tablet, 1 EACH PO DAILY, (Reported) Dicyclomine HCl 20 Mg Tablet, 20 MG PO TID, (Reported) Docusate Sodium 100 Mg Tablet, 100 MG PO DAILY, (Reported) Duloxetine HCl 60 Mg Capsule.dr, 60 MG PO BID, (Reported) Loratadine 10 Mg Tablet, 10 MG PO HS, (Reported) Metformin HCl 500 Mg Tablet, 500 MG PO BID, (Reported) Metoprolol Tartrate 25 Mg Tablet, 25 MG PO BID, (Reported) Montelukast Sodium 10 Mg Tablet, 10 MG PO HS, (Reported) Mv-Mn/FA/Coq10/Lycopene/Lutein 1 Each Tablet, 1 EACH PO DAILY, (Reported) Pantoprazole Sodium 40 Mg Tablet.dr, 40 MG PO DAILY, (Reported) Rizatriptan Benzoate 10 Mg Tablet, 10 MG PO PRN, (Reported) Simvastatin 10 Mg Tablet, 10 MG PO HS, (Reported) Patient Home Medication List Home Medication List Reviewed: Yes ZAN JEFFERSON DO Jul 24, 2020 11:00
--- NOTE | 2020-07-24 11:06 | Anesthesia-General Post-Op ---
General Patient Condition Mental Status/LOC: Same as Preop Cardiovascular: Satisfactory Nausea/Vomiting: Absent Respiratory: Satisfactory Pain: Controlled Complications: Absent Post Op Complications Complications None Follow Up Care/Instructions Patient Instructions None needed. Anesthesia/Patient Condition Patient Condition Patient is doing well, no complaints, stable vital signs, no apparent adverse anesthesia problems. No complications reported per nursing. PROSPER GAUTAM CRNA Jul 24, 2020 11:06
[2020-07-24] MEDS ORDERED: HYDROmorphone 2 MG/ML VIAL (DILAUDID) IV ONE (11:15)
[2020-07-24] MEDS ORDERED: MEPERIDINE (DEMEROL) INJ 50 MG/ML IVP ONE (11:15)
[2020-07-24] MEDS ORDERED: PROMETHAZINE INJ 25 MG/ML (PHENERGAN) AMP IVP ONE (11:15)
[2020-07-24] MEDS ORDERED: ONDANSETRON 4 MG/2 ML (SDV) Z0FRAN IVP PRN (11:15)
[2020-07-24] MEDS ORDERED: morphine INJ 10 MG/ML 1ML (SYR OR VIAL) IVP ONE (11:15)
[2020-07-24] MEDS: KETOROLAC 15 MG/ML VIAL IVP SCH ×2 (11:34→18:33)
[2020-07-24 11:41] LABS: BUN/CREATININE RATIO 11; CALCIUM 8.5 MG/DL (8.5-10.1); CARBON DIOXIDE 21 MMOL/L (21-32); CHLORIDE 107 MMOL/L (98-107); CREATININE SERUM 0.74 MG/DL (0.60-1.30); GFR ESTIMATED > 60; GLUCOSE 133 MG/DL (70-105); POTASSIUM 4.8 MMOL/L (3.6-5.0); SODIUM 138 MMOL/L (135-145)
--- NOTE | 2020-07-24 12:00 | NUR ---
Antoni Alejandre admitted to room 306 after a robo laproscopic total hysterectomy with bso with an a&p repair and sling, accompanied by pacu staff.ANTONI ALEJANDRE introduced to surroundings, call light, bed controls, phone, TV, temperature control, lights, meal times, smoking policy, visitor policy, side rail policy, bathrooms and showers.
--- NOTE | 2020-07-24 12:05 | NUR ---
Pt oriented to room, incision sites observed, vitals obtained. Fresh ice water and pillow for support given. No further needs at this time.
[2020-07-24] MEDS ORDERED: inSUlin ASPART (NovoLOG) 1 UNIT/0.01 ML (CHARGE PER UNIT) SC SCH (16:00)
--- NOTE | 2020-07-24 16:00 | NUR ---
IS instructions given to pt. Goal of 2250. Pt attempting IS and verbalizes understanding of instructions.
[2020-07-24] MEDS: RT-ALBUTEROL SULF 2.5 MG/3 ML PRE-MIX VIAL INH SCH ×3 (16:39→22:27)
[2020-07-24] MEDS ORDERED: metFORMIN 500 MG (GLUCOPHAGE) TAB PO SCH (17:00)
[2020-07-24] MEDS ORDERED: RIZATRIPTAN BENZOATE 10 MG PO SCH (17:30)
[2020-07-24] MEDS ORDERED: RT-ALBUTEROL SULF 2.5 MG/3 ML PRE-MIX VIAL IH PRN (17:30)
[2020-07-24] MEDS ORDERED: PATIENT MAY USE OWN MEDS, ALL MC SCH (17:30)
--- NOTE | 2020-07-24 18:00 | NUR ---
Pt up to side of bed, panties and pad placed. Pt ambulated in room with this rn at side. Ambulated 10 feet then wanted to sit in chair for dinner. Pt in chair with call light in reach. Fresh ice water given. No further needs at this time.
[2020-07-24] MEDS: ACETAMINOPHEN 500 MG TAB (TYLENOL) PO SCH (18:34)
--- NOTE | 2020-07-24 18:40 | NUR ---
Pt ambulated from chair back to bed with assist from this rn. No further needs at this time.
[2020-07-24] MEDS: Duloxetine HCl 60 MG PO SCH (19:42)
[2020-07-24] MEDS: metFORMIN 500 MG (GLUCOPHAGE) TAB PO SCH (19:43)
--- NOTE | 2020-07-24 20:00 | NUR ---
RN to room for assessment, see intervention. Medications reviewed with pt, verbalizes understanding. Scheduled meds given. Catheter draining well, output appropriate. Pt denies any needs or concerns at this time
--- NOTE | 2020-07-24 20:30 | NUR ---
VSS. Pt BS 179 mg/dl, no intervention required per insulin sliding scale.
[2020-07-24] MEDS ORDERED: DOCUSATE SODIUM 100 MG (COLACE) CAP PO SCH (21:00)
[2020-07-24] MEDS ORDERED: LORATADINE (CLARITIN) 10 MG TAB PO SCH (21:00)
[2020-07-24] MEDS ORDERED: meTOprolol TARTRATE 25 MG (LOPRESSOR) TABLET PO SCH (21:00)
[2020-07-24] MEDS ORDERED: SIMvastatin 10 MG (ZOCOR) TAB PO SCH (21:00)
[2020-07-24] MEDS ORDERED: DICYCLOMINE HCL 20 MG PO SCH (21:00)
[2020-07-24] MEDS ORDERED: MONTELUKAST 10 MG (SINGULAIR) TAB PO SCH (21:00)
[2020-07-24] MEDS ORDERED: OXC5T PO (23:49)
[2020-07-24] MEDS ORDERED: ACET-93 PO (23:49)
[2020-07-24] MEDS ORDERED: DCS100C PO (23:49)
[2020-07-24] MEDS ORDERED: IBUP-844 PO (23:49)
--- NOTE | 2020-07-24 23:51 | Discharge Inst-Women's Service ---
Discharge Inst-Women's Serv Depart Medication/Instructions New, Converted or Re-Newed RX: RX on Chart Final Diagnosis incomplete uterogenital prolapse cystocele mixed/stress incontinence diabetes hypertension Problems Reviewed?: Yes Consults/Follow Up Additional Follow Up: Yes (1 week for incision check; 10-12 weeks for pelvic exam) Activity Activity: Activity as Tolerated Driving Instructions: No Driving for 1 Week NO SMOKING: NO SMOKING Nothing Inside Vagina: No Douching, No Mcdonough (until released by physician (average 10 weeks)), No Tampons Diet Discharge Diet: No Restrictions Symptoms to Report to DrMary Ann: Swelling Increased, Bleeding Excessive, Pain Increased, Fever Over 101 Degrees F, Vaginal Bleeding Increase, Cramps in Feet or Legs, Vaginal Discharge Foul For Any Problems or Questions: Contact Your Physician Skin/Wound Care Infection Signs and Symptoms: Increased Redness, Foul Odor of Wound, Increased Drainage, Skin Itchy or Has a Rash, Increased Swelling, Temperature Above 101 F Operative Area Clean and Dry: Keep Incision Clean/Dry, You May Remove Bandage (remove bandages after 72 hours or if soiled or wet.) Stitches/[place]/Dermabond: Dermabond Bathing Instructions: ZAN Villa DO Jul 24, 2020 23:51
[2020-07-25] MEDS: KETOROLAC 15 MG/ML VIAL IVP SCH ×2 (00:37→05:49)
[2020-07-25 02:02] VITALS: BP 97/52
[2020-07-25] MEDS: RT-ALBUTEROL SULF 2.5 MG/3 ML PRE-MIX VIAL INH SCH ×2 (02:12→11:29)
[2020-07-25] MEDS: LACTATED RINGERS 1,000 ML IV PRN (03:57)
[2020-07-25] MEDS: metFORMIN 500 MG (GLUCOPHAGE) TAB PO SCH (08:00)
[2020-07-25] MEDS: ACETAMINOPHEN 500 MG TAB (TYLENOL) PO SCH (08:00)
[2020-07-25] MEDS: Duloxetine HCl 60 MG PO SCH (08:01)
[2020-07-25 08:07] VITALS: BP 113/56
--- NOTE | 2020-07-25 08:10 | NUR ---
THIS RN TO BEDSIDE. MEDS GIVEN; SEE EMAR FOR FURTHER. VS OBTAINED. INITIAL SHIFT ASSESSMENT COMPLETED; SEE INTERVENTION. PT ASSISTED UP TO THE BATHROOM WITH STAND BY ASSIST. + VOID, 200 CC OF URINE OUTPUT NOTED. PT BACK TO BED, FINISHING BREAKFAST. NO NEEDS VOICED. CALL LIGHT WITHIN REACH.
[2020-07-25] MEDS ORDERED: PANTOPRAZOLE 40 MG (PROTONIX) TAB PO SCH (09:00)
[2020-07-25] MEDS ORDERED: metFORMIN 500 MG (GLUCOPHAGE) TAB PO SCH (09:00)
--- NOTE | 2020-07-25 11:33 | NUR ---
DISCHARGE PAPERS PROVIDED AND REVIEWED WITH PT, PT VERBALIZES UNDERSTANDING AND DENIES ANY QUESTIONS AT THIS TIME. PAPER SIGNED.
--- NOTE | 2020-07-25 11:55 | NUR ---
PT DISCHARGED FROM -306 TO PERSONAL AUTO VIA W/C IN STABLE CONDITION ACC BY Sohail OCAMPO RN.
[2020-07-25] MEDS ORDERED: IBUPROFEN 600 MG (MOTRIN) TAB PO SCH (12:00)
== END 2020-07-25 11:55 | disposition home or self-care (01) ==
LOC: SDC 06:11 → WS 11:59 → SDC 07-25 11:55
PROVIDERS: ATTEND Obstetrics & Gynecology
DX: D28.2 Benign neoplasm of uterine tubes and ligaments (principal); N81.10 Cystocele, unspecified; N39.46 Mixed incontinence; N83.8 Other noninflammatory disorders of ovary, fallopian tube and broad ligament; N88.8 Other specified noninflammatory disorders of cervix uteri; I10 Essential (primary) hypertension; J44.9 Chronic obstructive pulmonary disease, unspecified; F41.9 Anxiety disorder, unspecified; F32.9 Major depressive disorder, single episode, unspecified; K21.9 Gastro-esophageal reflux disease without esophagitis; E11.9 Type 2 diabetes mellitus without complications; E66.9 Obesity, unspecified; Z68.31 Body mass index [BMI] 31.0-31.9, adult; Z79.51 Long term (current) use of inhaled steroids; Z79.899 Other long term (current) drug therapy; Z79.84 Long term (current) use of oral hypoglycemic drugs; Z80.3 Family history of malignant neoplasm of breast; Z83.3 Family history of diabetes mellitus
CPT/HCPCS: 36415; 80048; 81000; 82962; 85027; 86850; 86900; 86901; 87081; 88307; 94640; 94664; 94760

== ENCOUNTER → 2020-11-19 | Outpatient (CLI) | payer MEDICARE, MEDICAID ==
[~2020-11-19] MED LIST changes: +ACET-93 PO; +DCS100C PO; +IBUP-844 PO; +MONT10TA32 PO; -MONT10TA97 PO; +OXC5T PO
== END ==
LOC: CARD 11:01
PROVIDERS: ATTEND Pediatrics
DX: R06.01 Orthopnea (principal)
CPT/HCPCS: 93306

== ENCOUNTER → 2021-09-25 | Outpatient (CLI) | payer MEDICARE, MEDICAID ==
[~2021-09-25] MED LIST changes: +CATHETER FLUSH 10 ML SYR IV PRN; -DCS100C PO; +DICY20TA PO; -DICY20TA10 PO; +DOCU-239 PO; +HOLD METFORMIN - RECEIVED CONTRAST 20 ML VIAL IV SCH; +IOHEXOL 350 MG/ML 100 ML (OMNIPAQUE 350) VIAL IV ONE; +MONT-40 PO; -MONT10TA32 PO; +NS 100 ML (IVPB) BAG IV ONE
[2021-09-25 13:19] LABS: ALBUMIN 4.3 GM/DL (3.2-4.5); BILIRUBIN,TOTAL 0.3 MG/DL (0.1-1.0); CALCIUM 9.3 MG/DL (8.5-10.1); CREATININE SERUM 0.72 MG/DL (0.60-1.30); POTASSIUM 3.9 MMOL/L (3.6-5.0); TOTAL PROTEIN 6.9 GM/DL (6.4-8.2)
--- NOTE | 2021-09-25 16:22 | Diagnostic Imaging Report ---
INDICATION: 71-year-old female with right-sided neck pain and headaches. COMPARISON: None. FINDINGS: There is normal arch origin of the great vessels. Both common carotid arteries are widely patent. The carotid bifurcations, cervical, high cervical, petrous, cavernous, and supraclinoid segments of both ICA are normal. The A1 and visualized A2 segments of both NICK are normal. The M1 and visualized M2 segments of both MCA are also unremarkable. The left vertebral artery is dominant. There is some minimal atherosclerosis within the proximal left vertebral artery. No evidence of hemodynamically significant stenosis is seen. The cervical, high cervical, and skull base segments are widely patent. The V3 and V4 segments as well as the PICA, basilar artery, AICA, SCA, and visualized director career are also widely patent. The lung apices are clear. The superior mediastinum is unremarkable. The parapharyngeal and paraspinous soft tissues are also unremarkable. The visualized sinuses are patent. The right transverse sinus and sigmoid sinus are dominant as is the right internal jugular vein. This is a normal variation. A few shotty benign-appearing cervical nodes are seen, most likely reactive in nature. There is no significant adenopathy. There is some mild age appropriate cervical spondylosis. The cervical vertebral bodies appear well aligned and the vertebral body heights appear well-maintained. IMPRESSION: 1. Unremarkable CTA neck. 2. Mild age-appropriate cervical spondylosis; otherwise, essentially unremarkable CT cervical spine. 3. Additional nonemergent findings as described above. If symptoms warrant or persist, an MRI C-spine may be of further value. Dictated by: Dictated on workstation # [id number]
== END ==
LOC: RAD 14:15
PROVIDERS: ATTEND Pediatrics
DX: M47.812 Spondylosis without myelopathy or radiculopathy, cervical region (principal); G44.52 New daily persistent headache (NDPH)
CPT/HCPCS: 36415; 70498; 80053

== ENCOUNTER 2022-06-17 12:10 | Emergency (ER) | payer MEDICARE, MEDICAID ==
[~2022-06-17] VITALS: Ht 167.5 cm; Wt 89.0 kg
[~2022-06-17 12:10] MED LIST changes: +ALBU8.5H6 IH; -CATHETER FLUSH 10 ML SYR IV PRN; -HOLD METFORMIN - RECEIVED CONTRAST 20 ML VIAL IV SCH; -IOHEXOL 350 MG/ML 100 ML (OMNIPAQUE 350) VIAL IV ONE; -NS 100 ML (IVPB) BAG IV ONE; +RIZA-1 PO; -RIZA10TA23 PO; -RT-ALBUINH IH
--- NOTE | 2022-06-17 12:53 | ED Respiratory ---
General Chief Complaint: Abdominal/GI Problems Stated Complaint: COUGH | CONGESTION | WEAKNESS Nursing Triage Note: pt states she has felt horrible since thursday, cough, headache, body aches, worsening pain in back and back of legs, chest wall pain, denies fever Source: patient Exam Limitations: no limitations History of Present Illness Date Seen by Provider: Jun 17, 2022 Time Seen by Provider: 12:44 Initial Comments This is a 72-year-old female who presented to the ER via POV with complaints of cough, headache, body aches, fever and chills x4 days. States that she has been coughing so much she is now having chest wall tenderness with deep breaths. Denies nausea, vomiting, abdominal pain. Does have a history of COPD and a albuterol rescue inhaler as well as Symbicort, states that she is using these as directed. Reports limegreen nasal discharge, no respiratory secretions. Allergies and Home Medications Allergies Coded Allergies: No Known Drug Allergies (Unverified , 07/24/20) Patient Home Medication List Home Medication List Reviewed: Yes Acetaminophen (Acetaminophen) 500 Mg Tablet, 1,000 MG PO Q8HR Prescribed by: ZAN JEFFERSON on 07/24/20 2349 Albuterol Sulfate (Ventolin Hfa) 8.5 Gm Hfa.aer.ad, 2 PUFF IH Q6H PRN for WHEEZING, (Reported) Entered as Reported by: SARAH ROSARIO on 11/01/15 0905 Budesonide/Formoterol Fumarate (Symbicort 160-4.5 Mcg Inhaler) 10.2 Gm Hfa.aer.ad, 2 PUFF IH BID, (Reported) Entered as Reported by: TESSA JACOME on 08/16/19 1217 Calcium Citrate/Vitamin D3 (Citracal + D Maximum Caplet) 1 Each Tablet, 1 EACH PO DAILY, (Reported) Entered as Reported by: TESSA JACOME on 08/16/19 1217 Dicyclomine HCl (Dicyclomine HCl) 20 Mg Tablet, 20 MG PO TID, (Reported) Entered as Reported by: SARAH ROSARIO on 07/03/20 1329 Docusate Sodium (Stool Softener) 100 Mg Tablet, 100 MG PO DAILY, (Reported) Entered as Reported by: SARAH ROSARIO on 07/03/20 1329 Docusate Sodium (Dok) 100 Mg Capsule, 100 MG PO BID Prescribed by: ZAN JEFFERSON on 07/24/20 234 Duloxetine HCl (Duloxetine HCl) 60 Mg Capsule.dr, 60 MG PO BID, (Reported) Entered as Reported by: TESSA JACOME on 08/16/191216 Ibuprofen (Ibu) 600 Mg Tablet, 600 MG PO Q6HR Prescribed by: ZAN JEFFERSON on 07/24/20 234 Loratadine (Loratadine) 10 Mg Tablet, 10 MG PO HS, (Reported) Entered as Reported by: SARAH ROSARIO on 11/01/15 0905 Metformin HCl (Metformin HCl) 500 Mg Tablet, 500 MG PO BID, (Reported) Entered as Reported by: TESSA JACOME on 08/16/191216 Metoprolol Tartrate (Metoprolol Tartrate) 25 Mg Tablet, 25 MG PO BID, (Reported) Entered as Reported by: TESSA JACOME on 08/16/191216 Montelukast Sodium (Montelukast Sodium) 10 Mg Tablet, 10 MG PO HS, (Reported) Entered as Reported by: TESSA JACOME on 08/16/191216 Mv-Mn/FA/Coq10/Lycopene/Lutein (Theragran-M Premier 50+ Caplet) 1 Each Tablet, 1 EACH PO DAILY, (Reported) Entered as Reported by: TESSA JACOME on 08/16/191216 Oxycodone Hcl (Oxyir Tablet) 5 Mg Tab, 5 MG PO Q4HR Prescribed by: ZAN JEFFERSON on 07/24/20 234 Pantoprazole Sodium (Pantoprazole Sodium) 40 Mg Tablet.dr, 40 MG PO DAILY, (Reported) Entered as Reported by: TESSA JACOME on 08/16/191216 Rizatriptan Benzoate (Maxalt) 10 Mg Tablet, 10 MG PO PRN, (Reported) Entered as Reported by: TESSA JACOME on 08/16/191216 Simvastatin (Simvastatin) 10 Mg Tablet, 10 MG PO HS, (Reported) Entered as Reported by: TESSA JACOME on 2/4/20 1217 Review of Systems Review of Systems Constitutional: see HPI Past Vagnhqi-Pideca-Delopu Hx Patient Social History Tobacco Use?: Yes Tobacco type used: Cigarettes Smoking Status: Current Everyday Smoker Substance use?: No Alcohol Use?: No Pt feels they are or have been: No Immunizations Up To Date Tetanus Booster (TDap): Unknown Influenza Vaccine Up-to-Date: Yes; Up-to-Date Seasonal Allergies Seasonal Allergies: Yes Past Medical History Surgeries: Yes (LANKLE fx, KNEE SCOPE WITH SCRAPING, HIP INJECTION, R THR AND REVISION) Gallbladder, Orthopedic Respiratory: Yes Asthma, COPD Currently Using CPAP: No Currently Using BIPAP: No Cardiac: Yes High Cholesterol, Hypertension Neurological: No Headaches /Migraines Reproductive Disorders: No Sexually Transmitted Disease: No HIV/AIDS: No Genitourinary: Yes (FRANSISCO) Gastrointestinal: Yes Gastroesophageal Reflux, Diverticulosis, Chronic Diarrhea, Irritable Bowel Musculoskeletal: Yes (LEFT ANKLE) Arthritis, Fractures Endocrine: Yes (prediabetic) Diabetes, Non-Insulin dep HEENT: Yes (GLASSES) Loss of Vision: Denies Hearing Impairment: Denies Cancer: No Psychosocial: Yes Anxiety, Bipolar, Depression Integumentary: No Blood Disorders: No Adverse Reaction/Blood Tranf: No (N/A) Physical Exam Vital Signs - First Documented 06/17/22 12:19 Temp 35.6 Pulse 71 Resp 18 B/P (MAP) 112/80 (91) Pulse Ox 97 O2 Delivery Room Air Capillary Refill : Height: 5'6.00" Weight: 199lbs. 0.0oz. [id number]; 31.00 BMI Method:Stated General Appearance: WD/WN, no apparent distress Eyes: Bilateral Eye Normal Inspection, Bilateral Eye PERRL, Bilateral Eye EOMI HEENT: PERRL/EOMI, normal ENT inspection, pharynx normal Neck: full range of motion, normal inspection Respiratory: lungs clear, normal breath sounds, no respiratory distress, no accessory muscle use Cardiovascular: regular rate, rhythm, no murmur Gastrointestinal: normal bowel sounds, non tender, soft Extremities: normal range of motion, normal inspection Neurologic/Psychiatric: no motor/sensory deficits, alert, normal mood/affect, oriented x 3 Skin: normal color, warm/dry Progress/Results/Core Measures Suspected Sepsis SIRS Temperature: Pulse: 71 Respiratory Rate: 18 Blood Pressure 112 /80 Mean: 91 Results/Orders Lab Results Laboratory Tests Test 06/17/22 12:25 Range/Units My Orders Orders - DAVID JOSEPH STOCK HOLDER Covid 19 Inhouse Test (06/17/22 12:12) Influenza A And B By Pcr (06/17/22 12:12) Vital Signs/I&O 06/17/22 12:19 Temp 35.6 Pulse 71 Resp 18 B/P (MAP) 112/80 (91) Pulse Ox 97 O2 Delivery Room Air Capillary Refill : Blood Pressure Mean: 91 Departure Impression Primary Impression: COVID-19 Disposition: 01 HOME, SELF-CARE Condition: Stable Departure-Patient Inst. Decision time for Depature: 13:03 Referrals: CRISTO ESTRADA DO (PCP/Family) Primary Care Physician Patient Instructions: COVID-19 (DC) Add. Discharge Instructions: Plan: 1. Discharge home. 2. Stay home for 5 days and then mask when in public for additional 5 days. If you are still running fever, you will need to stay home until you are fever free. 3. Wash your hands frequently, disinfect surfaces at home. Try to isolate yourself from others in the house as much as you are able. 4. Clean areas that may have blood, stool, or body fluids on them. 5. Cover your mouth and nose when you cough or sneeze, throw away tissues, and wash hands immediately. 6. Return to ER if you develop: trouble breathing, persistent pain or pressure in the chest, new confusion, inability to wake or stay awake, pale, santamaria, blue- colored skin, lips, or nail beds depending on skin tone. 7. Return to ER for any other new, concerning, or worsening symptoms. All discharge instructions reviewed with patient and/or family. Voiced understanding. DAVID JOSEPH APRN Jun 17, 2022 12:53
[2022-06-17] MEDS ORDERED: RX-NIRMATRELVIR/RITONAVIR (PAXLOVID) #30 TABS PO ONE (13:15)
[2022-06-17 13:17] VITALS: BP 115/80
== END 2022-06-17 13:17 | disposition home or self-care (01) ==
LOC: EDUNIT# 12:10 → ER 12:13
DX: U07.1 COVID-19 (principal); F17.210 Nicotine dependence, cigarettes, uncomplicated
CPT/HCPCS: 87636; 99283

== ENCOUNTER 2022-06-23 12:55 | Emergency (ER) | payer MEDICARE, MEDICAID ==
[~2022-06-23] VITALS: Ht 167.7 cm; Wt 88.9 kg
--- NOTE | 2022-06-23 14:10 | ED General ---
General Chief Complaint: Head/Cervical Problems Stated Complaint: COVID+ ON 06/17/22 Nursing Triage Note: PT AMB TO TRIAGE WITH COMPLAINT OF RIGHT JAW/NECK SWELLING. STATES SWELLING STARTS AT HER JAW AND GOES TO HER RIGHT EAR. STATES IS HAVING DIFFICULTY SWALLOWING AND CHEWING. (DIOGO FLORES) History of Present Illness Date Seen by Provider: Jun 23, 2022 Time Seen by Provider: 14:05 Initial Comments 72 yo female presents to ED with cc of right jaw swelling. Pt was diagnosed with COVID last Thursday, June 17 and was given Paxlovid which she finished on Thursday. She said after finishing Paxlovid on Thursday she started having right jaw swelling. Says that it felt like stabbing/needle like pain that is constant and radiates to her right ear. Pt has two bottom teeth and wears top dentures. Says that she has been having difficulty chewing and swallowing. Able to tolerate liquids. Rates pain an 8/10 when she tries to chew food but at present its a 6/10. Has associated sinus pressure and PASCAL. Took Ibuprofen yesterday without relief of sx. Last visit to dentist was a few months ago. No other compl aints (DIOGO FLORES) Allergies and Home Medications Allergies Coded Allergies: No Known Drug Allergies (Unverified , 07/24/20) Patient Home Medication List Home Medication List Reviewed: Yes (DIOGO FLORES) Home Medication List Reviewed: Yes (ARTUR WESTBROOK MD) Acetaminophen (Acetaminophen) 500 Mg Tablet, 1,000 MG PO Q8HR Prescribed by: ZAN JEFFERSON on 07/24/20 2349 Albuterol Sulfate (Ventolin Hfa) 8.5 Gm Hfa.aer.ad, 2 PUFF IH Q6H PRN for WHEEZING, (Reported) Entered as Reported by: SARAH ROSARIO on 11/01/15 0905 Budesonide/Formoterol Fumarate (Symbicort 160-4.5 Mcg Inhaler) 10.2 Gm Hfa.aer.ad, 2 PUFF IH BID, (Reported) Entered as Reported by: TESSA JACOME on 08/16/19 1217 Calcium Citrate/Vitamin D3 (Citracal + D Maximum Caplet) 1 Each Tablet, 1 EACH PO DAILY, (Reported) Entered as Reported by: TESSA JACOME on 08/16/191216 Dicyclomine HCl (Dicyclomine HCl) 20 Mg Tablet, 20 MG PO TID, (Reported) Entered as Reported by: SARAH ROSARIO on 07/03/20 132 Docusate Sodium (Stool Softener) 100 Mg Tablet, 100 MG PO DAILY, (Reported) Entered as Reported by: SARAH ROSARIO on 07/03/20 132 Docusate Sodium (Dok) 100 Mg Capsule, 100 MG PO BID Prescribed by: ZAN JEFFERSON on 07/24/20 234 Duloxetine HCl (Duloxetine HCl) 60 Mg Capsule.dr, 60 MG PO BID, (Reported) Entered as Reported by: TESSA JACOME on 08/16/191216 Ibuprofen (Ibu) 600 Mg Tablet, 600 MG PO Q6HR Prescribed by: ZAN JEFFERSON on 07/24/20 234 Loratadine (Loratadine) 10 Mg Tablet, 10 MG PO HS, (Reported) Entered as Reported by: SARAH ROSARIO on 11/01/15 0905 Metformin HCl (Metformin HCl) 500 Mg Tablet, 500 MG PO BID, (Reported) Entered as Reported by: TESSA JACOME on 08/16/191216 Metoprolol Tartrate (Metoprolol Tartrate) 25 Mg Tablet, 25 MG PO BID, (Reported) Entered as Reported by: TESSA JACOME on 08/16/191216 Montelukast Sodium (Montelukast Sodium) 10 Mg Tablet, 10 MG PO HS, (Reported) Entered as Reported by: TESSA JACOME on 08/16/191216 Mv-Mn/FA/Coq10/Lycopene/Lutein (Theragran-M Premier 50+ Caplet) 1 Each Tablet, 1 EACH PO DAILY, (Reported) Entered as Reported by: TESSA JACOME on 08/16/191216 Oxycodone Hcl (Oxyir Tablet) 5 Mg Tab, 5 MG PO Q4HR Prescribed by: ZAN JEFFERSON on 07/24/20 234 Pantoprazole Sodium (Pantoprazole Sodium) 40 Mg Tablet.dr, 40 MG PO DAILY, (Reported) Entered as Reported by: TESSA JACOME on 08/16/197 Rizatriptan Benzoate (Maxalt) 10 Mg Tablet, 10 MG PO PRN, (Reported) Entered as Reported by: TESSA JACOME on 08/16/191216 Simvastatin (Simvastatin) 10 Mg Tablet, 10 MG PO HS, (Reported) Entered as Reported by: TESSA JACOME on 08/16/197 Review of Systems Review of Systems Constitutional: No chills, No diaphoresis, No dizziness, No fever, No malaise, No weakness EENTM: dental problems, mouth pain, mouth swelling, nose congestion; No ear discharge, No hearing loss, No ear pain, No blurred vision, No double vision, No hoarseness, No throat pain, No throat swelling Respiratory: cough; No dyspnea on exertion, No hemoptysis, No orthopnea, No phlegm Cardiovascular: No chest pain, No palpitations, No syncope Gastrointestinal: no symptoms reported Genitourinary: no symptoms reported Musculoskeletal: no symptoms reported Skin: no symptoms reported Psychiatric/Neurological: No Symptoms Reported Hematologic/Lymphatic: Other (submandibular lyp) (DIOGO FLORES) Past Ycaiffh-Zclffs-Nwnngk Hx Patient Social History Tobacco Use?: Yes Tobacco type used: Cigarettes Smoking Status: Current Everyday Smoker Use of E-Cig and/or Vaping dev: No Substance use?: No Alcohol Use?: No Pt feels they are or have been: No (DIOGO FLORES) Immunizations Up To Date Tetanus Booster (TDap): Unknown (DIOGO FLORES) Seasonal Allergies Seasonal Allergies: Yes (DIOGO FLORES) Past Medical History Surgeries: Yes (LANKLE fx, KNEE SCOPE WITH SCRAPING, HIP INJECTION, R THR AND REVISION) Gallbladder, Orthopedic Respiratory: Yes Asthma, COPD Currently Using CPAP: No Currently Using BIPAP: No Cardiac: Yes High Cholesterol, Hypertension Neurological: No Headaches /Migraines Reproductive Disorders: No Sexually Transmitted Disease: No HIV/AIDS: No Genitourinary: Yes (FRANSISCO) Gastrointestinal: Yes Gastroesophageal Reflux, Diverticulosis, Chronic Diarrhea, Irritable Bowel Musculoskeletal: Yes (LEFT ANKLE) Arthritis, Fractures Endocrine: Yes (prediabetic) Diabetes, Non-Insulin dep HEENT: Yes (GLASSES) Loss of Vision: Denies Hearing Impairment: Denies Cancer: No Psychosocial: Yes Anxiety, Bipolar, Depression Integumentary: No Blood Disorders: No Adverse Reaction/Blood Tranf: No (N/A) (DIOGO FLORES) Physical Exam Vital Signs Vital Signs - First Documented 06/23/22 13:01 Pulse 77 Resp 16 B/P (MAP) 151/81 (104) Pulse Ox 96 O2 Delivery Room Air (ARTUR WESTBROOK MD) Vital Signs Capillary Refill : Less Than 3 Seconds (DIOGO FLORES) Height, Weight, BMI Height: 5'6.00" Weight: 199lbs. 0.0oz. 90.434467ea; 31.00 BMI Method:Stated General Appearance: No Apparent Distress, WD/WN HEENT: PERRL/EOMI, TMs Normal, Normal ENT Inspection, Pharynx Normal, Other (Pt wears top dentures. No obvious erythema, lesions, or signs of infection of the gums ) Neck: Full Range of Motion, Supple, Lymphadenopathy (R) (submandibular ) Respiratory: Chest Non Tender, Lungs Clear, Normal Breath Sounds, No Accessory Muscle Use, No Respiratory Distress Cardiovascular: Regular Rate, Rhythm, No Edema, No Gallop, No JVD, No Murmur, Normal Peripheral Pulses Gastrointestinal: Normal Bowel Sounds, No Organomegaly, No Pulsatile Mass, Non Tender, Soft (DIOGO FLORES) Progress/Results/Core Measures Suspected Sepsis SIRS Temperature: Pulse: 77 Respiratory Rate: 16 Blood Pressure 151 /81 Mean: 104 (DIOGO FLORES) Results/Orders My Orders Orders - ARTUR WESTBROOK MD Ibuprofen Tablet (Motrin Tablet) (06/23/22 14:30) Lidocaine 2% Viscous 15 Ml (Xylocaine Vi (06/23/22 14:30) Antacid Suspension (Mylanta Suspension (06/23/22 14:30) (ARTUR WESTBROOK MD) Medications Given in ED Current Medications Medications Dose Ordered Sig/Wendy Route Start Time Stop Time Status Last Admin Dose Admin Al Hydrox/Mg Hydrox/Simethicone 30 ml ONCE ONCE PO 06/23/22 14:30 06/23/22 14:31 DC 06/23/22 14:57 30 ML Ibuprofen 600 mg ONCE ONCE PO 06/23/22 14:30 06/23/22 14:31 DC 06/23/22 14:57 600 MG Lidocaine HCl 5 ml ONCE ONCE PO 06/23/22 14:30 06/23/22 14:31 DC 06/23/22 14:57 5 ML (ARTUR WESTBROOK MD) Vital Signs/I&O 06/23/22 13:01 Pulse 77 Resp 16 B/P (MAP) 151/81 (104) Pulse Ox 96 O2 Delivery Room Air (ARTUR WESTBROOK MD) Vital Signs/I&O Capillary Refill : Less Than 3 Seconds (DIOGO FLORES) Blood Pressure Mean: 104 Departure Impression Primary Impression: Oral cavity pain Disposition: HOME, SELF-CARE Condition: Stable Departure-Patient Inst. Decision time for Depature: 15:17 (ARTUR WESTBROOK MD) Referrals: CRISTO ESTRADA DO (PCP/Family) Primary Care Physician Patient Instructions: Mouth Sores Add. Discharge Instructions: Use a good oral rinse such as Listerine twice daily. Monitor for signs of infection in your mouth such as white plaques which might be a yeast infection. If you develop a fever, worsening swelling in the mouth or in the neck please come back to the emergency room for reevaluation. You can also take generic ibuprofen 3 tablets which is 600 mg every 6 hours with food for pain. Follow-up with your primary care physician. Verification and Attestation of Medical Student E/M Service A medical student performed and documented this service in my presence. I reviewed and verified all information documented by the medical student and made modifications to such information, when appropriate. I personally performed the physical exam and medical decision making. Artur Westbrook, Jun 23, 2022,15:19 (ARTUR WESTBROOK MD) Copy Copies To 1: CRISTO ESTRADA ANISHA T Jun 23, 2022 14:10 ARTUR WESTBROOK MD Jun 23, 2022 15:11
[2022-06-23] MEDS ORDERED: LIDOCAINE 2% VISCOUS 15 ML UDC PO ONE (14:30)
[2022-06-23] MEDS ORDERED: IBUPROFEN 600 MG (MOTRIN) TAB PO ONE (14:30)
[2022-06-23] MEDS ORDERED: ANTACID SUSP 30 ML UDC (MYLANTA) PO ONE (14:30)
[2022-06-23 15:37] VITALS: BP 151/81
== END 2022-06-23 15:37 | disposition home or self-care (01) ==
LOC: EDUNIT# 12:55 → ER 12:57
DX: K13.79 Other lesions of oral mucosa (principal); F17.210 Nicotine dependence, cigarettes, uncomplicated; Z86.16 Personal history of COVID-19
CPT/HCPCS: 99283